=== PATIENT | female | born 1955 | race African-American/Black ===

== ENCOUNTER 2017-11-13 14:35 | Outpatient (RCR) | payer MEDICAID, SELFPAY ==
--- NOTE | 2017-11-13 15:59 | HP.PTEVAL_ITS ---
Patient's Visit Information NATALI KINSEY is a 62 year old F referred to Physical Therapy by DO MARTHA Sylvester with a diagnosis of LEFT KNEE OA,MENISCUS DEGENERATION. Date of Evaluation: 11/13/17 Physical Therapist: Gerhard Chaney PT, - Visit Plan Frequency: 2x /Week Duration: 4 Weeks Plan: Aquatic PT for ROM/strength left knee ,conditioning - Subjective Subjective: This 62 y/o female presents to physical therapy with left knee OA , menisus degenerative.Patient has had knee many years .Patient knee scope bilateral knee menisus right 2 years ago and left [address] catie mejia helped alot. Plan to do injections x3. Symptoms worse with squatting/ kneeling/stairs/lifting/night. Difficulty with extended walking/standing . Impairs ablity to perform ADL'S and housework tasks and qulity of life. C/O parathesia/feet . VOCATION: disablity. SOCAIL: SINGLE - Pain Left Knee Pain Intensity (Out of 10): 5 Pain Intensity Range: 10 - Objective POSTURE: mild knee valgus. GAIT: normal rian ,reciprocal pattern ,knees/hip flexed decrease stance left greater to right. PALPTION: medial/lateral joint line. EDEMA: absent. AROM: supine knee flexion R : 3-120 degrees,L: 3-130 degees. MMT: quads/hams 4-/5 ,hip flexion /abd 4-/5 anlke 4/5. FLEXABLITY: hams min loss. STAIRS: acsend/descend 12 steps one step at a time - Special Tests L Knee Ainsley - Meniscus: Positive L Knee Jose Maria - ACL: Negative L Knee Posterior Drawer - PCL: Negative L Knee Posterior Sag - PCL: Negative L Knee Valgus - MCL: Negative L Knee Varus - LCL: Negative L Knee Patellar Apprehension - PFS: Positive L Knee Patellar Grind - PFS: Negative - Goals Goal 1:: Patient to be Independant with Aquatic PT Goal Time Frame: 4-6 Weeks Goal 2:: Patient to decrease knee pain by 50% or greater to improve function with walking/standing. Goal Time Frame: 4-6 Weeks Goal 3:: Patient improve ROM knee symmtrical to right to improve function and stairs Goal Time Frame: 4-6 Weeks Goal 4:: Patient to increase strength of left knee 4/5 to improve gait Goal Time Frame: 4-6 Weeks Goal 5:: Patient be able to perform ADL'S and housework tasks with min limiations Goal Time Frame: 4-6 Weeks - Rehabilitation Potential Physical Therapy Diagnosis: This 62 y/o female presents to physical therapy with left knee pain with OA and degenerative menisus with decrease ROM,strength impairs function Rehabilitation Potential: Good - Anticipated Interventions Patient/Client Instruction: Educate patient on: Condition, Plan of Care For the Purpose of:: To decrease pain, To increase ROM, To improve muscle performance and motor function, To improve ability to perform ADL's, To increase tolerance to activity/condition/position, To improve ability of physical actions for home/community/work/leisure, To improve health of tissue, To decrease soft tissue restriction, To increase flexibility/ROM, To improve ability to perform tasks related to life management Therapeutic Exercise to Include: Strength training, Postural training, In an aquatic setting, Passive ROM, Active ROM Comment: quads/hams/hip For the Purpose of:: To decrease pain, To increase ROM, To improve muscle performance and motor function, To improve ability to perform ADL's, To increase tolerance to activity/condition/position, To improve ability of physical actions for home/community/work/leisure, To improve health of tissue, To decrease soft tissue restriction, To increase flexibility/ROM, To improve safety with gait, To improve ability to perform tasks related to life management Thank you for the opportunity to evaluate your patient. For Medicare and Medicare HMO plans, please review the plan of care and approve it. It will need to be FAXED BACK to us at [phone] for Medicare purposes. Please let me know if there are questions or concerns regarding this plan of care. Physician Signature: Date:
--- NOTE | 2017-12-15 10:47 | HP.PT.NRP ---
HP - Discharge Summary (1) - Patient Information NATALI KINSEY was seen in my office for initial evaluation on 11/13/17. The following Plan of Care was established for this patient: Initial Frequency: 2x /Week Initial Duration: 4 Weeks - Anticipated Interventions Patient/Client Instruction: Educate patient on: Condition, Plan of Care For the Purpose of:: To decrease pain, To increase ROM, To improve muscle performance and motor function, To improve ability to perform ADL's, To increase tolerance to activity/condition/position, To improve ability of physical actions for home/community/work/leisure, To improve health of tissue, To decrease soft tissue restriction, To increase flexibility/ROM, To improve ability to perform tasks related to life management Therapeutic Exercise to Include: Strength training, Postural training, In an aquatic setting, Passive ROM, Active ROM For the Purpose of:: To decrease pain, To increase ROM, To improve muscle performance and motor function, To improve ability to perform ADL's, To increase tolerance to activity/condition/position, To improve ability of physical actions for home/community/work/leisure, To improve health of tissue, To decrease soft tissue restriction, To increase flexibility/ROM, To improve safety with gait, To improve ability to perform tasks related to life management This patient was last seen in our office . Pertinent comments regarding their Physical therapy will appear below: Patient seen for PT for left KNEE OA but NS x3 for Aquatic PT . At this point I will be discontinuing this patient from physical therapy. I would be happy to see this patient again in the future if found appropriate by the physician. Thank you! Gerhard Chaney, PT,
== END 2017-11-13 19:00 | disposition home or self-care (01) ==
LOC: PT 14:35
PROVIDERS: Family Provider Family Medicine; PCP Family Medicine; Visit Provider Orthopaedic Surgery
DX: M23.307 Other meniscus derangements, unspecified meniscus, left knee (principal); M17.12 Unilateral primary osteoarthritis, left knee
CPT/HCPCS: 97162

== ENCOUNTER → 2017-12-30 10:58 | Outpatient (CLI) | payer MEDICAID, SELFPAY ==
[2017-12-30 11:58] LABS: BUP Internal Control LINE = VALID (VALID); Buprenorphine Drug Screen Negative (<10 ng/mL)
[2017-12-30 11:59] LABS: Erythrocyte Sedimentation Rate 60 mm/hr (0-30)
[2017-12-30 12:10] LABS: Hemoglobin A1c 11.6 % (4.2-6.3)
[2017-12-30 12:19] LABS: Rheumatoid Factor < 10.0 IU/mL (<15)
== END ==
PROVIDERS: Family Provider Family Medicine; PCP Family Medicine; Visit Provider Family Medicine
DX: F11.90 Opioid use, unspecified, uncomplicated (principal); E11.9 Type 2 diabetes mellitus without complications; M06.9 Rheumatoid arthritis, unspecified
CPT/HCPCS: 36415; 80307; 83036; 85652; 86431

== ENCOUNTER 2018-01-09 12:06 | Outpatient (RCR) | payer MEDICAID, SELFPAY | END 2018-01-12 23:59 | LOC: NS 12:06 | PROVIDERS: Family Provider Family Medicine; PCP Family Medicine; Visit Provider Orthopaedic Surgery | DX: Z68.41 Body mass index [BMI] 40.0-44.9, adult (principal); Z71.3 Dietary counseling and surveillance | CPT/HCPCS: 97802 ==

== ENCOUNTER 2018-01-30 15:44 | Outpatient (RCR) | payer MEDICAID, SELFPAY | END 2018-02-12 23:59 | LOC: NS 15:44 | PROVIDERS: Family Provider Family Medicine; PCP Family Medicine; Visit Provider Orthopaedic Surgery | DX: Z68.41 Body mass index [BMI] 40.0-44.9, adult (principal); Z71.3 Dietary counseling and surveillance | CPT/HCPCS: 97803 ==

== ENCOUNTER 2018-03-06 10:53 | Outpatient (RCR) | payer MEDICAID, SELFPAY | END 2018-03-14 23:59 | LOC: NS 10:53 | PROVIDERS: Family Provider Family Medicine; PCP Family Medicine; Visit Provider Orthopaedic Surgery | DX: Z68.41 Body mass index [BMI] 40.0-44.9, adult (principal); Z71.3 Dietary counseling and surveillance | CPT/HCPCS: 97803 ==

== ENCOUNTER → 2018-04-09 12:12 | Outpatient (CLI) | payer MEDICAID, SELFPAY ==
[2018-04-09 12:51] LABS: Hemoglobin A1c 8.4 % (4.2-6.3)
== END ==
PROVIDERS: Family Provider Family Medicine; PCP Family Medicine; Visit Provider Family Medicine
DX: E11.9 Type 2 diabetes mellitus without complications (principal)
CPT/HCPCS: 36415; 83036

== ENCOUNTER → 2018-06-25 12:30 | Outpatient (CLI) | payer MEDICAID, SELFPAY ==
[2018-06-25 13:01] LABS: Absolute Lymphocyte Count 2.27 X10^3/ul (0.83-4.51); Absolute Neutrophil Count 1.8 X10^3/uL (2.0-7.7); Basophil# 0.03 X10^3/uL; Basophil% 0.7 % (0-1); Eosinophil# 0.08 X10^3/uL; Eosinophils% 1.8 % (0-5); Hemoglobin 14.1 g/dl (12.0-15.0); Lymphocyte # 2.27 X10^3/ul (4.0); Lymphocyte % 51.1 % (19-41); Mean Corp Hgb Conc 32.8 g/gl (32-36); Mean Corpuscular Hgb 29.8 pg (27.0-32.0); Mean Corpuscular Volume 90.9 fL (81-99); Mean Platelet Vol. 9.9 fl (6.2-12.0); Monocyte# 0.29 X10^3/uL; Monocyte% 6.5 % (0-10); Neutrophil # 1.76 X10^3/uL (2.7-7.7); Neutrophil % 39.7 % (47-70); Platelet Count 140 K/mm3 (150-450); RBC Distribution Width CV 12.3 % (11.6-14.6); RBC Distribution Width SD 41.1 fl (35.1-43.9); Red Blood Count 4.73 M/mm3 (4.2-5.4); White Blood Count 4.4 K/mm3 (4.4-11.0)
[2018-06-25 13:02] LABS: POSITIVE COUNT NO; POSITIVE DIFFERENTIAL NO; POSITIVE MORPHOLOGY NO
[2018-06-25 13:19] LABS: Hemoglobin A1c 9.3 % (4.2-6.3)
[2018-06-25 13:37] LABS: ALB/GLOB Ratio 0.6 RATIO (0.9-2.4); AST(SGOT) 60 U/L (15-37); Alanine Aminotransfer ALT/SGPT 76 U/L (13-56); Albumin, Serum 2.8 g/dL (3.2-5.0); Alkaline Phosphatase 108 U/L (45-117); Anion Gap 8 (5-15); BUN 17 mg/dL (7-18); BUN/Creat Ratio 18.1 RATIO (10-20); Calcium,Total 9.1 mg/dL (8.5-10.1); Chloride 102 mmol/L (98-107); Creatinine, Serum 0.94 mg/dL (0.55-1.02); EST Glomerular Filtration Rate 64 mL/min (>60); Est Glom Filt Rate - Afr Amer 78 mL/min (>60); Globulin 4.9 g/dL (2.2-4.2); Glucose 404 mg/dL (74-106); Potassium 3.8 mmol/L (3.5-5.1); Protein, Total 7.7 g/dL (6.4-8.2); Rheumatoid Factor < 10.0 IU/mL (<15); Sodium Level 139 mmol/L (136-145); Thyroid Stim Hormone (TSH) 0.75 uIU/mL (0.358-3.74)
== END ==
PROVIDERS: Family Provider Family Medicine; PCP Family Medicine; Referring Provider Family Medicine; Visit Provider Family Medicine
DX: E11.9 Type 2 diabetes mellitus without complications (principal); M05.731 Rheumatoid arthritis with rheumatoid factor of right wrist without organ or systems involvement; R53.83 Other fatigue
CPT/HCPCS: 36415; 80053; 83036; 84443; 85025; 86431

== ENCOUNTER 2018-07-03 08:06 | Outpatient (RCR) | payer MEDICAID, SELFPAY | END 2018-07-15 23:59 | LOC: NS 08:06 | PROVIDERS: Family Provider Family Medicine; PCP Family Medicine; Visit Provider Orthopaedic Surgery | DX: E66.9 Obesity, unspecified (principal); Z68.41 Body mass index [BMI] 40.0-44.9, adult; Z71.3 Dietary counseling and surveillance ==

== ENCOUNTER → 2018-11-24 12:31 | Outpatient (CLI) | payer MEDICAID, SELFPAY ==
[2018-11-24 12:13] VITALS: BMI 34.7
--- NOTE | 2018-11-24 12:34 | RAD_ITS ---
STUDY: X-RAY CHEST REASON FOR EXAM: Female, 63 years old. Cough TECHNIQUE: PA and lateral views of the chest. COMPARISON: None. FINDINGS: The lungs are clear and expanded. There is no demonstrated pleural abnormality. Normal size heart. Normal mediastinum and gaye. Normal visualized pulmonary arteries. Normal visualized aortic arch and descending thoracic aorta. Normal visualized thoracic spine. Normal visualized ribs, clavicles, and shoulders. There is no demonstrated abnormality of the visualized soft tissue structures of the upper abdomen. RAD/Chest PA and Lateral IMPRESSION: Normal x-ray examination of the chest. Electronically Signed: Palmer Aceves DO at 13:12 EDT Tel , Service support ,
== END ==
PROVIDERS: Family Provider Family Medicine; PCP Family Medicine; Referring Provider Physician Assistant Surgical; Visit Provider Physician Assistant Surgical
DX: J20.9 Acute bronchitis, unspecified (principal)
CPT/HCPCS: 71046

== ENCOUNTER → 2019-02-02 10:28 | Outpatient (CLI) | payer MEDICAID, SELFPAY ==
[2019-02-02 10:07] VITALS: BMI 34.7
[2019-02-02 12:22] LABS: Absolute Lymphocyte Count 2.21 X10^3/ul (0.83-4.51); Absolute Neutrophil Count 2.7 X10^3/uL (2.0-7.7); Basophil# 0.03 X10^3/uL; Basophil% 0.5 % (0-1); Eosinophil# 0.15 X10^3/uL; Eosinophils% 2.7 % (0-5); Hematocrit 41.9 % (37-47); Lymphocyte # 2.21 X10^3/ul (4.0); Lymphocyte % 39.4 % (19-41); Mean Corp Hgb Conc 33.4 g/gl (32-36); Mean Corpuscular Hgb 29.8 pg (27.0-32.0); Mean Corpuscular Volume 89.1 fL (81-99); Mean Platelet Vol. 10.5 fl (6.2-12.0); Monocyte# 0.55 X10^3/uL; Monocyte% 9.8 % (0-10); Neutrophil # 2.66 X10^3/uL (2.7-7.7); Neutrophil % 47.4 % (47-70); Platelet Count 167 K/mm3 (150-450); RBC Distribution Width CV 12.3 % (11.6-14.6); RBC Distribution Width SD 39.6 fl (35.1-43.9); White Blood Count 5.6 K/mm3 (4.4-11.0)
[2019-02-02 12:23] LABS: POSITIVE COUNT NO; POSITIVE DIFFERENTIAL NO; POSITIVE MORPHOLOGY NO
[2019-02-02 13:26] LABS: ALB/GLOB Ratio 0.5 RATIO (0.9-2.4); AST(SGOT) 54 U/L (15-37); Alanine Aminotransfer ALT/SGPT 59 U/L (13-56); Albumin, Serum 2.3 g/dL (3.2-5.0); Alkaline Phosphatase 108 U/L (45-117); Anion Gap 7 (5-15); BUN 19 mg/dL (7-18); BUN/Creat Ratio 21.1 RATIO (10-20); Calcium,Total 8.7 mg/dL (8.5-10.1); Chloride 101 mmol/L (98-107); EST Glomerular Filtration Rate 68 mL/min (>60); Est Glom Filt Rate - Afr Amer 82 mL/min (>60); Glucose 318 mg/dL (74-106); Potassium 3.9 mmol/L (3.5-5.1); Protein, Total 7.3 g/dL (6.4-8.2); Sodium Level 132 mmol/L (136-145)
== END ==
PROVIDERS: PCP Family Medicine; Visit Provider Family Medicine
DX: E11.9 Type 2 diabetes mellitus without complications (principal); R53.83 Other fatigue
CPT/HCPCS: 36415; 80053; 85025

== ENCOUNTER → 2019-02-02 10:48 | Outpatient (CLI) | payer MEDICAID, SELFPAY ==
[2019-02-02 10:07] VITALS: BMI 34.7
--- NOTE | 2019-02-02 11:00 | RAD_ITS ---
STUDY: X-RAY CHEST REASON FOR EXAM: Female, 63 years old. Shortness of breath. TECHNIQUE: PA and lateral views of the chest. COMPARISON: November 24, 2018. FINDINGS: The lungs are clear and expanded. There is no demonstrated pleural abnormality. Normal size heart. Normal mediastinum and gaye. Normal visualized pulmonary arteries. There is atherosclerotic calcification of the aortic arch with tortuosity. There are diffuse degenerative changes of the visualized thoracic spine. There is degenerative osteoarthritis of the bilateral shoulders. There is no demonstrated abnormality of the visualized soft tissue structures of the upper abdomen. RAD/Chest PA and Lateral IMPRESSION: No acute cardiopulmonary disease or major interval change. Electronically Signed: Manohar Greene DO at 17:04 EDT Tel [phone], Service support ,
== END ==
PROVIDERS: Family Provider Family Medicine; PCP Family Medicine; Referring Provider Family Medicine; Visit Provider Family Medicine
DX: J20.9 Acute bronchitis, unspecified (principal); E11.9 Type 2 diabetes mellitus without complications; R53.83 Other fatigue
CPT/HCPCS: 36415; 71046; 80053; 85025

== ENCOUNTER → 2019-03-01 09:52 | Outpatient (CLI) | payer MEDICAID, SELFPAY ==
[2019-02-02 10:07] VITALS: BMI 34.7
[2019-02-23 13:14] VITALS: BMI 36.3
--- NOTE | 2019-03-01 09:52 | US_ITS ---
STUDY: ABDOMINAL ULTRASOUND - RIGHT UPPER QUADRANT REASON FOR VISIT: Female, 63 years old. Abnormal labs elevated LFT TECHNIQUE: Ultrasound evaluation of the right upper quadrant was performed with real-time and static hager-scale imaging. TECHNICAL QUALITY: Adequate. COMPARISON: None. FINDINGS: Liver: The liver measures 16.9 cm. There is normal echogenicity of the liver. The bile ducts are within normal limits. There is hepatic color flow. The direction of portal flow is hepatopetal. There is no demonstrated mass lesion. Gallbladder: Normal distended gallbladder. The gallbladder wall measures 2 mm. There is a negative sonographic Martinez's sign. There is no pericholecystic fluid. In the fundus of the gallbladder there is a small focus nonshadowing nonmobile of avascular sludge or polyp within the lumen. Common Bile Duct (C.B.D.): The common bile duct measures mm. Pancreas: Normal size of the head, body and tail of the pancreas. There is normal echogenicity of the pancreas. There is no demonstrated pancreatic mass or cyst. Right Kidney: Normal size of the right kidney. The right kidney measures 12.3 x 6.0 x 3.8 cm. Normal renal cortex. The right cortex measures 1.4 cm. There is no demonstrated renal mass or cyst. There is no right hydronephrosis. US/Liver IMPRESSION: Possible sludge or polyp within the fundus recommend short-term interval follow-up study in 6 months to ensure stability or as clinically appropriate. Homogeneous liver without evidence of intra or extrahepatic dilatation of visualized mass. Electronically Signed: Niki Aguilar MD at 2:36 EDT Tel , Service support ,
== END ==
PROVIDERS: Family Provider Family Medicine; PCP Family Medicine; Referring Provider Family Medicine; Visit Provider Family Medicine
DX: R74.8 Abnormal levels of other serum enzymes (principal)
CPT/HCPCS: 76705

== ENCOUNTER → 2019-03-05 09:40 | Outpatient (CLI) | payer MEDICAID, SELFPAY ==
[2019-02-23 13:14] VITALS: BMI 36.3
[2019-03-06 05:06] LABS: HEPATITIS B SURFACE AG Negative (Negative); Hepatitis A AB, Total Positive (Negative); Hepatitis A IgM Antibody Negative (Negative); Hepatitis B Core AB IgM Negative (Negative); Hepatitis B Core Ab Total Negative (Negative); Hepatitis C Ab >11.0 s/co ratio (0.0-0.9)
[2019-03-08 11:48] LABS: Hep B Surface Antibodies Non Reactive (.)
== END ==
PROVIDERS: Family Provider Family Medicine; PCP Family Medicine; Referring Provider Family Medicine; Visit Provider Family Medicine
DX: R74.8 Abnormal levels of other serum enzymes (principal)
CPT/HCPCS: 36415; 86704; 86705; 86706; 86708; 86709; 86803; 87340

== ENCOUNTER → 2019-03-23 12:56 | Outpatient (CLI) | payer MEDICAID, SELFPAY ==
[2019-02-23 13:14] VITALS: BMI 36.3
[2019-03-25 08:02] LABS: HCV log 10 5.972 (.)
== END ==
PROVIDERS: Family Provider Family Medicine; PCP Family Medicine; Referring Provider Family Medicine; Visit Provider Family Medicine
DX: R76.8 Other specified abnormal immunological findings in serum (principal)
CPT/HCPCS: 36415; 87522

== ENCOUNTER → 2019-04-01 08:38 | Outpatient (CLI) | payer MEDICAID, SELFPAY ==
[2019-02-23 13:14] VITALS: BMI 36.3
[2019-04-01 09:58] LABS: Absolute Lymphocyte Count 2.46 X10^3/uL (0.83-4.51); Absolute Neutrophil Count 1.6 X10^3/uL (2.0-7.7); Basophil# 0.03 X10^3/uL; Basophil% 0.6 % (0-1); Eosinophil# 0.17 X10^3/uL; Eosinophils% 3.6 % (0-5); Hematocrit 43.7 % (37-47); Hemoglobin 14.2 g/dL (12.0-15.0); Lymphocyte # 2.46 X10^3/ul (4.0); Lymphocyte % 52.8 % (19-41); Mean Corp Hgb Conc 32.5 g/dL (32-36); Mean Corpuscular Hgb 29.5 pg (27.0-32.0); Mean Corpuscular Volume 90.7 fL (81-99); Mean Platelet Vol. 10.4 fl (6.2-12.0); Monocyte# 0.38 X10^3/uL; Monocyte% 8.2 % (0-10); NRBC Flagged by Analyzer 0 % (0-5); Neutrophil % 34.4 % (47-70); Platelet Count 160 K/mm3 (150-450); RBC Distribution Width CV 12.6 % (11.6-14.6); RBC Distribution Width SD 41.5 fl (35.1-43.9); Red Blood Count 4.82 M/mm3 (4.2-5.4); White Blood Count 4.7 K/mm3 (4.4-11.0)
[2019-04-01 10:22] LABS: AST(SGOT) 69 U/L (15-37); Alanine Aminotransfer ALT/SGPT 80 U/L (13-56); Albumin, Serum 2.8 g/dL (3.2-5.0); Alkaline Phosphatase 110 U/L (45-117); Anion Gap 9 (5-15); BUN 19 mg/dL (7-18); BUN/Creat Ratio 18.8 RATIO (10-20); Bilirubin, Direct 0.21 mg/dL (0.00-0.30); Chloride 107 mmol/L (98-107); Creatinine, Serum 1.01 mg/dL (0.55-1.02); EST Glomerular Filtration Rate 59 mL/min (>60); Est Glom Filt Rate - Afr Amer 72 mL/min (>60); Globulin 4.8 g/dL (2.2-4.2); Glucose 201 mg/dL (74-106); Potassium 3.6 mmol/L (3.5-5.1); Protein, Total 7.6 g/dL (6.4-8.2); Sodium Level 141 mmol/L (136-145)
[2019-04-01 11:08] LABS: HIV - WCH Non-Reactive (Nonreactive); Hepatitis B Surface Antibody Non-Reactive; Hepatitis B Surface Antigen Non-Reactive (Nonreactive)
[2019-04-03 12:07] LABS: Hepatitis B Core Ab Total Negative (Negative)
[2019-04-03 13:33] LABS: HCV log 10 5.941 (.); Hepatitis A AB, Total Positive (Negative)
[2019-04-05 12:07] LABS: Comment 1a (.)
[2019-04-16 17:49] LABS: Hepatitis C Genotype 1a
== END ==
PROVIDERS: Family Provider Family Medicine; PCP Family Medicine; Referring Provider Internal Medicine Infectious Disease; Visit Provider Internal Medicine Infectious Disease
DX: B17.10 Acute hepatitis C without hepatic coma (principal)
CPT/HCPCS: 36415; 80048; 80076; 85025; 86703; 86704; 86706; 86708; 87340; 87522; 87902

== ENCOUNTER → 2019-04-21 | Outpatient (CLI) | payer MEDICAID, SELFPAY ==
[2019-04-21 15:18] VITALS: BMI 36.3
--- NOTE | 2019-04-21 15:43 | RAD_ITS ---
STUDY: X-RAY CHEST REASON FOR EXAM: Female, 63 years old. Cough TECHNIQUE: Frontal and lateral views of the chest COMPARISON: 02/02/2019 FINDINGS: The lungs are clear. There are no pleural effusions. There is no pneumothorax. The heart is normal in size. The visualized osseous structures are within normal limits. RAD/Chest PA and Lateral IMPRESSION: No acute thoracic pathology. Electronically Signed: Grant Jacques, at 16:52 EDT Tel , Service support ,
== END | disposition home or self-care (01) ==
LOC: HPRAD 15:42
PROVIDERS: Family Provider Family Medicine; PCP Family Medicine; Visit Provider Physician Assistant
DX: R05 Cough (principal)
CPT/HCPCS: 71046

== ENCOUNTER 2019-04-25 23:08 | Observation (INO) | payer MEDICAID, SELFPAY ==
[2019-04-21 15:18] VITALS: BMI 36.3
[2019-04-25 23:11] VITALS: BP 179/80; PULSE 99; RESP 17; TEMP 36.1; O2SAT 97; BMI 36.8
[2019-04-25 23:15] VITALS: BP 181/90; PULSE 96; RESP 16; O2SAT 97
--- NOTE | 2019-04-25 23:27 | EKG12_ITS ---
Test Reason : NUMBNESS/TINGLING Blood Pressure : / mmHG Vent. Rate : 099 BPM Atrial Rate : 099 BPM P-R Int : 156 ms QRS Dur : 080 ms QT Int : 386 ms P-R-T Axes : 055 074 052 degrees QTc Int : 495 ms Normal sinus rhythm Septal infarct (cited on or before 24-JAN-2010) Abnormal ECG Confirmed by SRIKANTH PIZARRO, RENE ([id number]), restaurant expeditor DERICK ARNOLD ([id number]) on 05/03/2019 1:28:41 PM Referred By: MELLY Confirmed By:JHONY DUKE MD
--- NOTE | 2019-04-25 23:27 | RAD_ITS ---
STUDY: X-RAY CHEST REASON FOR EXAM: Female, 63 years old. cough TECHNIQUE: AP portable COMPARISON: 04/21/2019 FINDINGS: The lungs are clear and expanded. There is no demonstrated pleural abnormality. Normal size heart. Normal mediastinum and gaye. Normal visualized pulmonary arteries. Normal visualized aortic arch and descending thoracic aorta. Normal visualized thoracic spine. Normal visualized ribs, clavicles, and shoulders. There is no demonstrated abnormality of the visualized soft tissue structures of the upper abdomen. RAD/Chest 1 View IMPRESSION: Negative x-ray examination of the chest. No interval change. Electronically Signed: Clarence German, at 0:30 EDT Tel , Service support ,
--- NOTE | 2019-04-25 23:27 | CT_ITS ---
STUDY: CT BRAIN WITHOUT CONTRAST REASON FOR EXAM: Female, 63 years old. Left hand numbness RADIATION DOSAGE (If Supplied By Facility): CTDIvol = ( 44.99 ) mGy, DLP = ( 745.49 ) mGycm TECHNIQUE: Transaxial CT imaging of the brain was performed without administration of intravenous contrast material. Individualized dose optimization techniques were used for this CT. COMPARISON: CT head from 08/09/2016 FINDINGS: Normal soft tissue structures. Normal calvarium. There is mild cerebral atrophy with widening of the extra-axial spaces and ventricular dilatation. There are areas of decreased attenuation within the white matter tracts of the supratentorial brain, consistent with microvascular disease changes. Normal basal ganglia and thalami. Normal brainstem. Normal cerebellum. There is no intracranial hemorrhage. There are no findings of an acute ischemic infarction. Normal visualized paranasal sinuses. CT/Brain/Head without Contrast IMPRESSION: Negative unenhanced CT scan of the brain for acute abnormality or interval change. Electronically Signed: Clarence German, at 0:16 EDT Tel , Service support ,
--- NOTE | 2019-04-25 23:30 | ED.RN ---
PER DANIELA JORDAN WHO TOOK REPORT FROM [facility], PT ALMITA IS NEGATIVE AND DR. ORDAZ SAID NOT TO CALL A STROKE TEAM. DR. ORDAZ INFORMED OF PT SX AGAIN ON ARRIVAL TO ED. WILL CONTINUE TO MONITOR.
[2019-04-25 23:45] VITALS: BP 140/129; PULSE 98; RESP 22; O2SAT 100
[2019-04-25 23:46] LABS: Bedside Glucose 159 mg/dL (70-110)
[2019-04-26] VITALS (25 sets, daily range): BP systolic 127–173; BP diastolic 60–91; PULSE 80–107; RESP 15–24; TEMP 36.4–37.2; O2SAT 92–99; BMI 35.2
--- NOTE | 2019-04-26 00:18 | ED.RN ---
PER DR ORDAZ RN TO STOP Q30MIN NIH SCORES. LSAT 3 NIH SCORES HAVE BEEN 0. RN WILL CONTINUE TO MONITOR.
[2019-04-26 00:19] LABS: Absolute Lymphocyte Count 3.68 X10^3/uL (0.83-4.51); Absolute Neutrophil Count 3.5 X10^3/uL (2.0-7.7); Basophil# 0.05 X10^3/uL; Basophil% 0.6 % (0-1); Eosinophil# 0.14 X10^3/uL; Eosinophils% 1.7 % (0-5); Hematocrit 40.2 % (37-47); Hemoglobin 13.3 g/dL (12.0-15.0); Lymphocyte # 3.68 X10^3/ul (4.0); Lymphocyte % 45.5 % (19-41); Mean Corp Hgb Conc 33.1 g/dL (32-36); Mean Corpuscular Volume 90.7 fL (81-99); Mean Platelet Vol. 9.4 fl (6.2-12.0); Monocyte# 0.64 X10^3/uL; Monocyte% 7.9 % (0-10); NRBC Flagged by Analyzer 0 % (0-5); Neutrophil # 3.52 X10^3/uL (2.7-7.7); Neutrophil % 43.7 % (47-70); Platelet Count 187 K/mm3 (150-450); RBC Distribution Width CV 12.7 % (11.6-14.6); Red Blood Count 4.43 M/mm3 (4.2-5.4); White Blood Count 8.1 K/mm3 (4.4-11.0)
[2019-04-26 00:27] LABS: International Normalized Ratio 0.9; Prothrombin Time (Protime)PT. 12.1 SECONDS (11.7-14.9)
[2019-04-26 00:28] LABS: Partial Thromboplast Time 24.7 Seconds (24.1-36.2)
[2019-04-26 00:36] LABS: Anion Gap 5 (5-15); BUN 11 mg/dL (7-18); BUN/Creat Ratio 11.2 RATIO (10-20); Calcium,Total 8.9 mg/dL (8.5-10.1); Chloride 102 mmol/L (98-107); Creatinine, Serum 0.99 mg/dL (0.55-1.02); EST Glomerular Filtration Rate 61 mL/min (>60); Est Glom Filt Rate - Afr Amer 74 mL/min (>60); Estimated Creatinine Clearance 51.53 ml/min; Glucose 151 mg/dL (74-106); Potassium 3.4 mmol/L (3.5-5.1); Sodium Level 136 mmol/L (136-145)
--- NOTE | 2019-04-26 00:46 | ED.DCSUM_ITS ---
- ER Visit Summary Date of Service: 04/26/19 Chief Complaint: Left hand numbness and weakness History of Present Illness: The patient is a 63 F who presents with left hand numbness and tingling. This began about an hour ago. She had numbness and tingling in her hand and onto her forearm. She felt like her hand was weak. Currently her symptoms have resolved. They lasted about 45 minutes. No other extremities were affected. She denies any slurred speech or speech difficulty. She reports history of prior stroke greater than 10 years ago. She is also treated for diabetes and hypertension and is a smoker. She denies any chest pain fevers. She is currently on antibiotics for bronchitis. Physical Examination: Afebrile blood pressure 179/80 vitals otherwise unremarkable No distress NIH stroke scale is 0 clear speech normal strength normal sensation no focal or lateralizing neurological deficits Heart regular rate and rhythm Lungs are clear Abdomen soft Extremities nontender Test Results: EKG shows sinus rhythm at a rate of 99. CBC BMP coagulation studies unremarkable and troponin is negative. Chest x-ray is negative. CT of the head is negative. Emergency Department Course and Treatment: Patient was asymptomatic at the time of my evaluation has had no recurrence of symptoms. However given her prior reported history of stroke and multiple risk factors I do feel she will need hospitalization for further work-up including MRI. Patient will be discussed with the hospitalist and admitted. Treatment Plan: [] Disposition: Admit Impression: Transient neurological deficit This note was generated with [employer] dictation software. It may contain incorrect words, spelling, and punctuation that were not noted in review of the chart prior to signing ED Disposition - Plan for ED Patient: Referrals: Prince Cummins DO [Primary Care Provider] -
--- NOTE | 2019-04-26 00:52 | HP.PCM_ITS ---
Problem List (1) Acute bronchitis Status: Acute Qualifiers: Bronchitis organism: unspecified organism Qualified Code(s): J20.9 - Acute bronchitis, unspecified (2) Diabetes Status: Chronic Qualifiers: Diabetes mellitus type: type 2 (3) Type II diabetes mellitus Status: Chronic Qualifiers: Diabetes mellitus long term care pharmacist insulin use: without long term care pharmacist use Diabetes mellitus complication status: without complication Qualified Code(s): E11.9 - Type 2 diabetes mellitus without complications (4) Hypertension Status: Chronic Qualifiers: Hypertension type: essential hypertension Qualified Code(s): I10 - Essential (primary) hypertension (5) Hypertensive emergency Status: Inactive History of Present Illness Date of Admission: 04/26/19 Chief Complaint: left arm numbness and tingling The patient is a 63 year old F with a significant history of hypertension; asthma; diabetes mellitus; tobacco abuse; and previous CVA who presented to the emergency department with numbness and tingling of the left arm that lasted lasted about 45 minutes. Her symptoms started few hours before presentation but had resolve at the time of arrival to the emergency department. Associated with her symptoms is a weakness of her left arm which has also resolved. At the emergency department NIH was 0. CT of the brain was unremarkable. Past Medical History Past Medical History (Chronic Problems): Chronic Problems (Last Reviewed 04/26/19 @ 02:48 by Jacob Landeros MD) Elevated liver enzymes (Chronic) Diabetes (Chronic) Rheumatoid arthritis (Chronic) Type II diabetes mellitus (Chronic) Hypertension (Chronic) Medical History: Medical History (Last Reviewed 04/26/19 @ 02:48 by Jacob Landeros MD) Diabetes (Chronic) E11.9 Rheumatoid arthritis (Chronic) M06.9 Asthma J45.909 Chest pain R07.9 H/O: hysterectomy Z98.890, Z90.710 SOB (shortness of breath) R06.02 Stroke I63.9 Hypertension I10 Allergies Penicillins Allergy (Verified 04/21/19 15:17) Swelling oxycodone HCl [From Percocet] Adverse Reaction (Verified 04/21/19 15:17) Itching Home Medications: Ambulatory Orders Medication Instructions Recorded albuterol sulfate HFA 90 2 puff INHALATION Q6H #8.5 g 02/02/19 mcg/actuation aerosol inhaler amlodipine 5 mg tablet 5 mg PO DAILY 02/02/19 glipizide 5 mg tablet 5 mg PO DAILY #90 tab 02/12/19 benzonatate 100 mg capsule 100 mg PO TID PRN #30 cap 02/23/19 ertugliflozin 15 mg tablet 15 mg PO QAM #30 tab 02/23/19 albuterol sulfate HFA 90 2 puff INHALATION Q6H #8.5 g 04/21/19 mcg/actuation aerosol inhaler levofloxacin 500 mg tablet 500 mg PO DAILY #10 tab 04/21/19 Surgical History: Surgical History (Last Reviewed 04/26/19 @ 02:48 by Jacob Landeros MD) History of eye surgery Z98.890 knee scope Bilateral Surgical History: - Psychiatric History: 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 Denies: Head Aches Cardiovascular: Denies: Chest Pain, Palpitations Respiratory: Reports: Cough, Shortness of Breath, Sputum production Gastrointestinal: Denies: Abdominal Pain, Nausea, Vomiting Genitourinary: Denies: Dysuria Musculoskeletal: Denies: Joint Pain, Joint Tenderness Skin: Denies: Rash, Wounds Neurological: Reports: Numbness, Tingling. Denies: Focal weakness Psychiatric: Denies: Anxiety, Depression, Homicidal Ideations, Suicidal Ideations Hematologic/ Lymphatic: Denies: Easy Bruising, Easy Bleeding VTE Information - Inpt Only VTE Present on Admission: No VTE Mechan Device Prophylaxis: None VTE Pharm Prophylaxis ordered?: Yes - Physical Exam General: Alert, Oriented x3, Cooperative HEENT: Atraumatic, PERRLA, EOMI, Normocephalic Neck: Supple, No JVD, Negative Carotid Bruits Lungs: Rhonchi, Wheezes Cardiovascular: Regular rate, No murmurs Abdomen: Bowel Sounds Present, Soft, Non Tender Extremities: No edema, Capillary Refill Less than 3 Seconds Skin: No rashes, No breakdown Musculoskeletal: No Tenderness to Palpation of Joints or Extremities Neurological: Cranial nerves II-XII grossly intact, Deep Tendon Reflexes 2+/4 and Symmetrical, Neuro grossly intact, Motor Exam 5/5 strength throughout, Muscle tone normal, Sensory exam intact to light touch and pain, - - No dysmetria. Psych/Mental Status: Normal Affect, Appropriate Vital Signs Temp Pulse Resp BP Pulse Ox 97 F L 102 H 20 H 168/88 H 97 04/25/19 23:11 04/26/19 00:49 04/26/19 00:49 04/26/19 00:49 04/26/19 00:49 Oxygen Delivery Method Room Air Weight: 97.4 kg Body Mass Index (BMI) 36.8 Finger Stick Blood Glucose 159 Laboratory Tests Past 24 Hrs 04/26/19 04/26/19 04/26/19 00:11 00:11 00:11 WBC 8.1 RBC 4.43 Hgb 13.3 Hct 40.2 MCV 90.7 MCH 30.0 MCHC 33.1 RDW Std Deviation 42.0 RDW Coeff of Dottie 12.7 Plt Count 187 MPV 9.4 Immature Gran % (Auto) 0.600 Neut % (Auto) 43.7 L Lymph % (Auto) 45.5 H [place] % (Auto) 7.9 Eos % (Auto) 1.7 Baso % (Auto) 0.6 Absolute Neuts (auto) 3.5 Absolute Lymphs (auto) 3.68 Nucleated RBC % 0 PT 12.1 INR 0.9 APTT 24.7 Sodium 136 Potassium 3.4 L Chloride 102 Carbon Dioxide 29.0 Anion Gap 5 BUN 11 Creatinine 0.99 Estim Creat Clear Calc 51.53 Est GFR (MDRD) Af Amer 74 Est GFR (MDRD) Non-Af 61 BUN/Creatinine Ratio 11.2 Glucose 151 H Calcium 8.9 Troponin I < 0.015 POC Glucose 04/25/19 23:39 POC Glucose 159 H Assessment/Plan All Active Problems (Last Reviewed 04/26/19 @ 02:48 by Jacob Landeros MD) Asthma exacerbation (Acute) Acute bronchitis (Acute) The patient is a 63 year old F with a significant history of hypertension; asthma; diabetes mellitus; tobacco abuse; and previous CVA who presented to the emergency department with transient numbness and tingling of the left arm and left arm weakness consistent with probable TIA. Probable TIA NINDS NIH Scale was 0 CT of the head was unremarkable -Check Hba1c, Lipid level Physical therapy and occupational therapy and speech therapy to work with patient. N.p.o. until bedside swallow eval. Daily aspirin. High intensity statin: Patient has multiple risk factors including diabetes and is unclear why she is not on statin. She denies statin allergy. She thinks that she may have been on statin previously. Will order high intensity statin. Permissive hypertension. Control blood pressure with labetalol for systolic blood pressure of more than 220 or diastolic blood pressure of more than 120. -Permissive HTN for 24 hrs, long term care pharmacist goal BP < 120/80 mmHg and goal Hba1c < 7%. Reportedly her symptoms started around 10 PM of 04/25/2019. MRI/MRAM of head; brain; and neck. Echocardiogram ordered. Hypokalemia Mild. On presentation potassium was 3.4. Likely due to albuterol use. Potassium Supplementation x1 ordered Trend. Acute bronchitis/asthma exacerbation She reports productive cough with green sputum and also nasal congestion with greenish secretions Reportedly she has been on Levaquin for 7 days. Levaquin was prescribed outpatient for 10 days. We will continue Levaquin as patient has rhonchi and wheezes. Tessalon Perles as needed continued DuoNeb ordered. Was taken albuterol inhalation at home. Nasal congestion Flonase ordered Tobacco abuse Counseled Nicotine patch ordered Diabetes mellitus On presentation her blood glucose was within goal Glipizide continued Ertugliflozin held QA [facility] with correction scale insulin ordered. Hypertension On Presentation her blood pressure was not within goal. Home amlodipine held because of permissive hypertension. Blood pressure treatment per TIA/stroke protocol as above. DVT prophylaxis Subcutaneous Lovenox. Code Visit OBSV E&M: [id number] Initial observation care L3
--- NOTE | 2019-04-26 01:45 | ECHOD_ITS ---
Reason For Study: TIA/CVA Procedure This was a 2D Doppler, Color Flow transthoracic echocardiogram. The study was technically difficult. Exam performed portable in patient room. Left Ventricle Normal LV size. Moderate concentric left ventricular hypertrophy. Left ventricular systolic function is normal. The estimated ejection fraction is 70 %. Diastolic function is indeterminate. No regional wall motion abnormalities noted. Right Ventricle Normal RV size. Normal systolic function. Atria Normal left atrium. Normal right atrium. No doppler evidence for ASD. Bubble contrast study negative for right to left interatrial shunt. Mitral Valve There is no mitral annular calcification. Normal mitral valve. Trivial mitral valve insufficiency. Tricuspid Valve Normal tricuspid valve. Trivial tricuspid valve insufficiency. Unable to estimate RV systolic pressure/pulmonary artery pressure due to technically difficult study. Aortic Valve Trisinus/trileaflet aortic valve. Mild focal aortic valve calcification. Pulmonic Valve The pulmonic valve is not well visualized. Great Vessels Normal sized aortic root. Pericardium/Pleural No pericardial effusion. Medication Performed a rapid injection of agitated mix of 9 cc saline and 1cc air to assess for atrial septal defect. MMode/2D Measurements & Calculations LVIDd: 3.8 cm IVSd: 1.5 cm Ao root diam: 2.5 cm LVIDs: 2.3 cm LVPWd: 1.3 cm RVDd: 3.5 cm FS: 39.2 % LAV(MOD-bp): 45.8 ml LVAd ap4: 22.7 cm2 SV(MOD-sp4): 33.2 ml LAV(MOD-bp) Indexed: 23.2 ml/m2 EDV(MOD-sp4): 56.5 ml LAV(MOD-sp2): 48.7 ml EDV(sp4-el): 55.1 ml LAV(MOD-sp4): 42.8 ml LVAs ap4: 11.8 cm2 ESV(MOD-sp4): 23.3 ml ESV(sp4-el): 19.1 ml EF(MOD-sp4): 58.7 % EF(sp4-el): 65.3 % SV(sp4-el): 36.0 ml LA A4 area: 16.4 cm2 LA dimension(2D): 2.4 cm RA A4 area: 13.9 cm2 Doppler Measurements & Calculations MV E max migel: 69.8 cm/sec Lat Peak E' Migel: 8.8 cm/sec Med Peak E' Migel: 5.3 cm/sec MV A max migel: 80.3 cm/sec E/E' lat: 7.9 E/E' med: 13.2 MV E/A: 0.87 Ao V2 max: 150.2 cm/sec LV V1 max: 123.5 cm/sec PA V2 max: 93.2 cm/sec Ao max P.0 mmHg LV V1 max P.1 mmHg Ao V2 mean: 101.8 cm/sec Ao mean P.5 mmHg Ao V2 VTI: 30.4 cm Interpretation Summary The study was technically difficult. Left ventricular systolic function is normal. The estimated ejection fraction is 70 %. Moderate concentric left ventricular hypertrophy. Trivial mitral valve insufficiency. Trivial tricuspid valve insufficiency. Mild focal aortic valve calcification. Unable to estimate RV systolic pressure/pulmonary artery pressure due to technically difficult study. Diastolic function is indeterminate. Ordering Physician: Jacob Landeros Referring Physician: Prince Cummins Performed By: Jenna Luis RDCS, RVT
--- NOTE | 2019-04-26 01:45 | MRI_ITS ---
We are attempting to reach an attending provider to discuss findings. An addendum with communication details will be sent when the communication is complete. STUDY: MRI BRAIN WITHOUT CONTRAST REASON FOR EXAM: Female, 63 years old. Left arm numbness and tingling TECHNIQUE: Standardized multiplanar fat and water weighted pulse sequences were obtained. COMPARISON: None. FINDINGS: Normal size of the ventricles and extra-axial spaces for the patient's age. There are a few small periventricular white matter lesions one of which in the right frontal parietal region demonstrates restricted diffusion consistent with acute ischemic changes Normal bilateral basal ganglia. Normal thalami. There is no extra-axial fluid accumulation. Normal flow voids within the major intracranial circulation suggesting patency by spin echo criteria. Normal sella turcica, pituitary gland, infundibular stalk, optic chiasm and hypothalamus. Normal tectal plate and pineal gland. Normal midbrain, chapin and medulla. Normal cerebellum. Normal basal cisterns. Normal bilateral temporal bones. Normal bilateral internal auditory canals. Fluid signal noted within the mastoids consistent with inflammatory changes Postsurgical changes of the orbits.. Mild mucosal thickening within the maxillary ethmoid and sphenoid sinuses. Normal calvarium and skull base. Normal visualized soft tissue structures. Normal visualized upper cervical spine. MRI/Brain without Contrast IMPRESSION: Minor periventricular white matter ischemic changes. Small focal deep white matter infarct in the right frontal parietal region. Electronically Signed: Jefferson Warner MD at 16:01 EDT , Service support ,
[2019-04-26] MEDS: Ipratropium/Albuterol Sulfate 3 ML AMPUL.NEB INHALATION ×3 (06:34→19:03)
[2019-04-26 06:35] LABS: Anion Gap 7 (5-15); BUN 10 mg/dL (7-18); BUN/Creat Ratio 12.2 RATIO (10-20); Calcium,Total 8.5 mg/dL (8.5-10.1); Chloride 106 mmol/L (98-107); Cholesterol 120 mg/dL (200); Creatinine, Serum 0.82 mg/dL (0.55-1.02); EST Glomerular Filtration Rate 75 mL/min (>60); Est Glom Filt Rate - Afr Amer 91 mL/min (>60); Estimated Creatinine Clearance 62.21 ml/min; Glucose 143 mg/dL (74-106); High Density Lipoprotein 52 mg/dL; Potassium 3.9 mmol/L (3.5-5.1); Sodium Level 141 mmol/L (136-145); Triglycerides 132 mg/dL; Very Low Density Lipoprotein 26 mg/dL (5-40)
[2019-04-26 06:46] LABS: Bedside Glucose 140 mg/dL (70-110)
[2019-04-26 07:55] LABS: Hemoglobin A1c 8.8 % (4.2-6.3)
[2019-04-26 08:00] LABS: Bedside Glucose 149 mg/dL (70-110)
[2019-04-26] MEDS: Aspirin 81 MG TAB.CHEW PO (08:40)
[2019-04-26] MEDS: Fluticasone 0.05% 1 SPRAY NASAL.SRY NASAL (08:40)
[2019-04-26] MEDS: glipiZIDE 5 MG Tablet PO (08:40)
[2019-04-26] MEDS: levoFLOXacin 500 MG Tablet PO (08:41)
[2019-04-26] MEDS: Enoxaparin 40 MG/0.4 ML Syringe SC (08:41)
--- NOTE | 2019-04-26 10:46 | CT_ITS ---
STUDY: CTA HEAD AND NECK WITH CONTRAST REASON FOR EXAM: Female, 63 years old. TIA. RADIATION DOSAGE (If Supplied By Facility): CTDIvol = ( 27.40 ) mGy, DLP = ( 1525.52 ) mGycm TECHNIQUE: CT angiography was performed with a multi-detector CT scanner. Data acquisition was obtained from the skull base through the vertex following intravenous administration of 100 IV Isovue 370. MIP images were reconstructed from the axial data set. Post-processing of the angiographic images was performed, with multiplanar reformation and 3D reconstruction. Individualized dose optimization techniques were used for this CT. COMPARISON: No relevant priors. FINDINGS: Normal bilateral petrous carotid arteries. There is calcified plaque formation of the right cavernous carotid artery, without a cross-sectional luminal stenosis. There is calcified plaque formation of the left cavernous carotid artery, without a cross-sectional luminal stenosis. Normal right A1 segments of the anterior cerebral artery. Normal left A1 segments of the anterior cerebral artery. Normal intact anterior communicating artery (ACOM). Normal bilateral A2 segments of the anterior cerebral arteries. There is irregularity of the right M1 and M2 branches with minimal luminal narrowing, suggesting atherosclerotic plaque formation, without an occlusion. Normal left M1 and M2 segments of the middle cerebral arteries, with a normal M1 bifurcation. Normal right posterior communicating artery (PCOM). There is a persistent origin of the left posterior cerebral artery with absence of the posterior communicating artery (PCOM). Normal bilateral vertebral arteries. Normal basilar artery with a normal basilar bifurcation. The visualized bilateral superior cerebellar (SCA) arteries are normal. Normal bilateral P1, P2 and visualized P3 segments of the posterior cerebral arteries. There is no demonstrated aneurysm of the [place] of [place]. There is no demonstrated abnormality of the visualized brain. AORTIC ARCH: There is atherosclerotic calcific plaque formation of the aortic arch and great vessels arising from the aortic arch, without a hemodynamically significant stenosis. Atherosclerotic calcification of the origin of the brachiocephalic artery, left common carotid artery and left subclavian artery.. RIGHT CAROTID ARTERIES: Normal right common carotid artery (CCA). Normal right common carotid bulb. There is severe atherosclerotic plaque formation of the origin of the right internal carotid artery with a near complete occlusion. Normal visualized cervical portion of the right internal carotid artery. Normal origin of the right external carotid artery (ECA). LEFT CAROTID ARTERIES: Normal left common carotid artery (CCA). Normal left common carotid bulb. There is moderate atherosclerotic plaque formation of the origin of the left internal carotid artery with an estimated stenosis of 50-69% stenosis. Normal visualized cervical portion of the left internal carotid artery. There is extensive atherosclerotic plaque formation of the origin of the left external carotid artery with an estimated stenosis of greater than 70%. VERTEBRAL ARTERIES: Normal bilateral vertebral arteries. CT/CTA Head AND Neck W/ Contrast IMPRESSION: High-grade stenosis at the origin of the right internal carotid artery. 50-60% narrowing of the proximal portion of the left internal carotid artery. Electronically Signed: Tacho Russell, at 15:40 EDT , Service support ,
--- NOTE | 2019-04-26 10:54 | MRI_ITS ---
STUDY: MRI CERVICAL SPINE WITHOUT CONTRAST REASON FOR EXAM: Female, 63 years old. Left hand numbness TECHNIQUE: Standardized fat and water weighted pulse sequences were obtained in the sagittal and axial planes. COMPARISON: None FINDINGS: Normal foramen magnum and brainstem-cervical cord junction. Normal craniovertebral junction. Normal anterior atlantoaxial articulation. Normal odontoid process. Normal cervical lordosis. C2-3: Normal endplates. Normal disc height, signal and morphology. Normal central canal and intervertebral neural foramina. C3-4: Normal endplates. Normal disc height signal and tiny left paracentral disc protrusion. Normal central canal. Minor left neural foraminal encroachment secondary to bony hypertrophy C4-5. Endplate spurring . Grade 1 retrolisthesis: There is low signal intensity within the inferior endplate of the C4 vertebral body and superior endplate of C5 and the disc on T1, demonstrating increased signal on T2 and STIR imaging sequences possibly representing acute osteomyelitis and discitis. Would recommend clinical correlation and repeat study with contrast for further assessment. Normal disc height, signal and tiny right paracentral central disc protrusion.. Mild narrowing of the central canal and moderate bilateral neuroforaminal stenosis. C5-6: Mild endplate spurring.. Normal disc height, signal and moderate bulging of the disc with prominent right foraminal disc/osteophyte protrusion. Mild narrowing of the central canal. Moderate to severe left neural foraminal stenosis secondary to bony hypertrophy and more severe narrowing on the right due to disc and bony hypertrophy C6-7: Minor endplate spurring.. Normal disc height, signal and minor bulging of the disc with tiny central disc protrusion.. Minor narrowing of central canal. Moderate left neural foraminal stenosis secondary to bony hypertrophy. C7-T1: Normal endplates. Normal disc height, signal and morphology. Normal central canal and intervertebral neural foramina. Normal cervical cord. Normal visualized soft tissue structures. MRI/Spine Cervical (Routine) IMPRESSION: Signal changes within the C4 and C5 vertebral bodies as well as the disc possibly representing acute osteomyelitis and discitis however would recommend clinical correlation and further assessment with enhanced study Spondylosis and multilevel spinal stenosis secondary to disc disease and bony hypertrophy most severe at C5-6 on the right and C6-7 on the left Electronically Signed: Jefferson Warner MD at 16:17 EDT , Service support ,
--- NOTE | 2019-04-26 10:57 | PN_ITS ---
Subjective: Patient is a 63-year-old lady with past medical history single for diabetes mellitus type 2, tobacco use previous CVA who presented with transient numbness and tingling sensation involving the left upper arm. Patient was admitted to a monitored bed for subsequent management. Objective: GENERAL: cooperative HEENT: Atraumatic; moist oral mucosa EYES; Anicteric, Normal Conjunctiva NECK; supple, normal thyroid, RESPIRATORY: Diminished to auscultation CARDIOVASCULAR: Regular S1 S2, GI: soft, non-tender, normoactive bowel sounds, : No Renal angle tenderness; EXTREMITIES: No edema, no clubbing, no cyanosis. MUSCULOSKELETAL: No Joint Tenderness; NEURO: Awake; no lateralizing signs. SKIN: No Rash PSYCH; Normal affect Vitals/I&O's: Vital Signs Temp Pulse Resp BP Pulse Ox 98.2 F 87 18 135/91 H 95 04/26/19 10:00 04/26/19 10:00 04/26/19 10:00 04/26/19 10:00 04/26/19 10:00 Oxygen Flow Rate (L/min) 2 Oxygen Delivery Method Room Air Weight: 93.1 kg Body Mass Index (BMI) 35.2 Finger Stick Blood Glucose 159 Intake and Output for Last 24 Hours 04/24/19 04/25/19 04/26/19 23:59 23:59 23:59 Intake Total 90 / 90 Balance 90 / 90 Laboratory Results 04/25/19 23:39: POC Glucose 159 H 04/26/19 00:11: WBC 8.1, RBC 4.43, Hgb 13.3, Hct 40.2, MCV 90.7, MCH 30.0, MCHC 33.1, RDW Std Deviation 42.0, RDW Coeff of Dottie 12.7, Plt Count 187, MPV 9.4, Immature Gran % (Auto) 0.600, Neut % (Auto) 43.7 L, Lymph % (Auto) 45.5 H, Sampson % (Auto) 7.9, Eos % (Auto) 1.7, Baso % (Auto) 0.6, Absolute Neuts (auto) 3.5, Absolute Lymphs (auto) 3.68, Nucleated RBC % 0 04/26/19 00:11: PT 12.1, INR 0.9, APTT 24.7 04/26/19 00:11: Sodium 136, Potassium 3.4 L, Chloride 102, Carbon Dioxide 29.0, Anion Gap 5, BUN 11, Creatinine 0.99, Estim Creat Clear Calc 51.53, Est GFR (MDRD) Af Amer 74, Est GFR (MDRD) Non-Af 61, BUN/Creatinine Ratio 11.2, Glucose 151 H, Calcium 8.9, Troponin I < 0.015 04/26/19 05:30: Sodium 141, Potassium 3.9, Chloride 106, Carbon Dioxide 28.0, Anion Gap 7, BUN 10, Creatinine 0.82, Estim Creat Clear Calc 62.21, Est GFR (MDRD) Af Amer 91, Est GFR (MDRD) Non-Af 75, BUN/Creatinine Ratio 12.2, Glucose 143 H, Calcium 8.5, Triglycerides 132, Cholesterol 120, LDL Cholesterol 42, VLDL Cholesterol 26, HDL Cholesterol 52 04/26/19 05:30: Hemoglobin A1c 8.8 H 04/26/19 06:39: POC Glucose 140 H 04/26/19 07:53: POC Glucose 149 H Current Medications Albuterol Sulfate (Ventolin Aerosols) 2.5 mg INHALATION Q2H PRN PRN PRN Reason: SOB/Wheezing Albuterol/Ipratropium (Duoneb) 3 ml INHALATION Q6HWA.RT [facility] [place] Last Admin: 04/26/19 06:34 Dose: 3 ml Documented by: Aspirin (Aspirin, Baby) 81 mg PO DAILY@0800 [facility] [place] Last Admin: 04/26/19 08:40 Dose: 81 mg Documented by: Atorvastatin Calcium (Lipitor) 80 mg PO QHS [facility] [place] Benzonatate (Tessalon Perle) 100 mg PO TID PRN PRN PRN Reason: cough Dextrose (D50w Syringe) 0 gm IV X1 PRN; Protocol PRN Reason: Hypoglycemia Enoxaparin Sodium (Lovenox) 40 mg SC DAILY [facility] [place] Last Admin: 04/26/19 08:41 Dose: 40 mg Documented by: Fluticasone Propionate (Flonase Nasal [place]) 1 spray NASAL BID [facility] [place] Last Admin: 04/26/19 08:40 Dose: 1 spray Documented by: Glipizide (Glucotrol) 5 mg PO DAILYCM [facility] [place] Last Admin: 04/26/19 08:40 Dose: 5 mg Documented by: Glucagon () 1 mg IM .X1 PRN PRN Reason: Hypoglycemia Sodium Chloride () 250 mls @ 15 mls/hr IV .[id number] PRN PRN Reason: SALINE FLUSH Insulin Human Lispro (Humalog Kwikpen (Bkc)) 0 unit SC ACHS [facility] [place]; Protocol Last Admin: 04/26/19 07:59 Dose: Not Given Documented by: Labetalol HCl (Trandate) 10 mg IV Q10M PRN PRN Reason: MAINTAIN BP < 220/120 Stop: 04/27/19 01:46 Levofloxacin (Levaquin Tablet) 500 mg PO DAILY [facility] [place] Stop: 04/28/19 10:01 Last Admin: 04/26/19 08:41 Dose: 500 mg Documented by: Nicotine (Nicoderm Cq (Pbkc)) 21 mg TRANSDERM. DAILY [facility] [place] Last Admin: 04/26/19 08:47 Dose: Not Given Documented by: Nutritional Formula (Lactose Free) (Glucerna Shake) 120 ml PO TIDCM [facility] [place] Last Admin: 04/26/19 08:37 Dose: Not Given Documented by: Sodium Chloride () 10 - 40 ml IV UD PRN PRN Reason: SALINE FLUSH Medical Necessity - Tobacco Use Smoking Status: Current every day smoker Tobacco Use: Cigarettes Assessment/Plan All Active Problems (Last Reviewed 04/26/19 @ 02:48 by Jacob Landeros MD) Asthma exacerbation (Acute) Acute bronchitis (Acute) Patient is a 63-year-old lady with past medical history single for diabetes mellitus type 2, tobacco use previous CVA who presented with transient numbness and tingling sensation involving the left upper arm. Patient was admitted to a monitored bed for subsequent management. 1. Acute ischemic CVA: Presented with left upper extremity transient numbness and weakness. MRI demonstrated infarct in the right frontal parietal region. Patient placed on antiplatelet therapy with aspirin as well as statin therapy. Subsequent evaluation with CTA of the neck demonstrated critical stenosis involving the right carotid artery consult placed to both neurology as well as vascular surgery 2. Questionable acute osteomyelitis and discitis involving C4 and C5 cervical spine. MRI with contrast ordered for subsequent evaluation. Also ordered CRP and ESR and consultation placed to infectious disease 3. Diabetes mellitus type 2; continue patient home regimen in addition to Accu- Cheks before meals and at bedtime with sliding scale coverage 4. Essential hypertension patient blood pressure currently stable 5. Acute bronchitis patient was treated with Levaquin as outpatient 6. Tobacco dependence counseled on cessation, offered nicotine patch for tobacco cravings 7. Recent diagnosis of hep C patient is currently followed by a metal lather in [place] 8. DVT prophylaxis SC Lovenox Active Medications Albuterol Sulfate (Ventolin Aerosols) 2.5 mg INHALATION Q2H PRN PRN PRN Reason: SOB/Wheezing Albuterol/Ipratropium (Duoneb) 3 ml INHALATION Q6HWA.RT [facility] [place] Last Admin: 04/26/19 12:55 Dose: 3 ml Documented by: Aspirin (Aspirin, Baby) 81 mg PO DAILY@0800 [facility] [place] Last Admin: 04/26/19 08:40 Dose: 81 mg Documented by: Atorvastatin Calcium (Lipitor) 80 mg PO QHS [facility] [place] Benzonatate (Tessalon Perle) 100 mg PO TID PRN PRN PRN Reason: cough Dextrose (D50w Syringe) 0 gm IV X1 PRN; Protocol PRN Reason: Hypoglycemia Enoxaparin Sodium (Lovenox) 40 mg SC DAILY [facility] [place] Last Admin: 04/26/19 08:41 Dose: 40 mg Documented by: Fluticasone Propionate (Flonase Nasal [place]) 1 spray NASAL BID [facility] [place] Last Admin: 04/26/19 08:40 Dose: 1 spray Documented by: Glipizide (Glucotrol) 5 mg PO DAILYCM [facility] [place] Last Admin: 04/26/19 08:40 Dose: 5 mg Documented by: Glucagon () 1 mg IM .X1 PRN PRN Reason: Hypoglycemia Sodium Chloride () 250 mls @ 15 mls/hr IV .[id number] PRN PRN Reason: SALINE FLUSH Insulin Human Lispro (Humalog Palmirapen (Bkc)) 0 unit SC ACHS [facility] [place]; Protocol Last Admin: 04/26/19 11:52 Dose: Not Given Documented by: Labetalol HCl (Trandate) 10 mg IV Q10M PRN PRN Reason: MAINTAIN BP < 220/120 Stop: 04/27/19 01:46 Levofloxacin (Levaquin Tablet) 500 mg PO DAILY [facility] [place] Stop: 04/28/19 10:01 Last Admin: 04/26/19 08:41 Dose: 500 mg Documented by: Nicotine (Nicoderm Cq (Pbkc)) 21 mg TRANSDERM. DAILY [facility] [place] Last Admin: 04/26/19 08:47 Dose: Not Given Documented by: Sodium Chloride () 10 - 40 ml IV UD PRN PRN Reason: SALINE FLUSH Clinical Impression(s) from Imaging Studies Brain CT 04/25/19 23:27 IMPRESSION: Negative unenhanced CT scan of the brain for acute abnormality or interval change. Electronically Signed: Clarence German, at 0:16 EDT Tel , Service support , Chest X-Ray 04/25/19 23:27 IMPRESSION: Negative x-ray examination of the chest. No interval change. Electronically Signed: Clarence German, at 0:30 EDT Tel , Service support , Brain MRI 04/26/19 01:45 IMPRESSION: Minor periventricular white matter ischemic changes. Small focal deep white matter infarct in the right frontal parietal region. Electronically Signed: Jefferson Warner MD at 16:01 EDT , Service support , ADDENDUM: 04/26/19 1623 IMPRESSION: Minor periventricular white matter ischemic changes. Small focal deep white matter infarct in the right frontal parietal region. N.B. : The above information has been verbally conveyed by Jefferson Warner MD to Paulina Gallegos RN, RN, on 04/26/2019 16:16:15 (ET). Electronically Signed: Jefferson Warner MD at 16:01 EDT , Service support , Head/Neck CTA 04/26/19 10:46 IMPRESSION: High-grade stenosis at the origin of the right internal carotid artery. 50-60% narrowing of the proximal portion of the left internal carotid artery. Electronically Signed: Tacho Russell, at 15:40 EDT , Service support , Cervical Spine MRI 04/26/19 10:54 IMPRESSION: Signal changes within the C4 and C5 vertebral bodies as well as the disc possibly representing acute osteomyelitis and discitis however would recommend clinical correlation and further assessment with enhanced study Spondylosis and multilevel spinal stenosis secondary to disc disease and bony hypertrophy most severe at C5-6 on the right and C6-7 on the left Electronically Signed: Jefferson Warner MD at 16:17 EDT , Service support , Code Visit OBSV E&M: 00320 Subsequent observation care L3
[2019-04-26 11:50] LABS: Bedside Glucose 134 mg/dL (70-110)
[2019-04-26] MEDS: Glucerna Shake 120 ML LIQUID PO (12:00)
--- NOTE | 2019-04-26 15:52 | CHAPLAIN ---
Type of Pastoral Visit _x__ Initial Visit ___ Follow-up Visit ___ On-call Visit ___ General Patient Visit ___ Spiritual Assessment ___ Family Conference ___ Bereavement ___ Rapid Response ___ Code Blue ___ Other (describe below) Pastoral Care Referral From _x__ Patient ___ Family ___ Nurse ___ Physician ___ [facility] ___ [place] ___ Other (describe below) Sacrament/Intervention ___ Active listening ___ Anointing ___ Mu-Ism ___ Bereavement ___ Communion ___ Analisa exploration ___ ___ Life review _x__ Prayer ___ Reconciliation ___ Sacrament of Sick ___ Supportive presence ___ Wedding ___ Other (describe below) Pastoral Comments said a prayer at request of patient before she was being taken for an MRI
--- NOTE | 2019-04-26 16:34 | MRI_ITS ---
STUDY: MRI CERVICAL SPINE WITH CONTRAST REASON FOR EXAM: Female, 63 years old. Left arm numbness TECHNIQUE: Standardized fat and water weighted pulse sequences were obtained in the sagittal and axial following administration of 18 IV Dotarem. COMPARISON: MRI of the cervical spine without contrast on April 26, 2019 FINDINGS: Following contrast injection, there is enhancement of the C4 and C5 vertebral bodies as well as the intervening disc consistent with acute osteomyelitis and discitis. There is also enhancement of the prevertebral soft tissues consistent with inflammatory changes. There is focal enhancement of the soft tissues in the anterior epidural space mildly impinging upon the cord which may be consistent with small focal empyema MRI/Spine Cervical WITH Contrast IMPRESSION: Enhancement of the vertebral bodies and disc at C4-5 consistent with acute osteomyelitis and discitis with small focal epidural empyema.. Electronically Signed: Jefferson Warner MD at 20:43 EDT , Service support ,
[2019-04-26 16:40] LABS: Bedside Glucose 183 mg/dL (70-110)
[2019-04-26 16:58] LABS: CRP < 2.90 mg/L (0.0-3.0)
[2019-04-26] MEDS: Insulin Lispro 100 UNIT/ML INSULN.PEN SC ×2 (17:16→21:57)
[2019-04-26 17:19] LABS: Erythrocyte Sedimentation Rate 62 mm/hr (0-30)
--- NOTE | 2019-04-26 18:59 | PCM.CONS.GEN ---
Problem List (1) Carotid stenosis, right Status: Acute Reason for Consult Date of Consultation: 04/26/19 History of Present Illness: The patient is a 63 year old F who I have been asked to see for right carotid artery stenosis and right frontal infarct. The patient's been referred by Dr. Gaines and a written copy of my surgical consult recommendations will be on her electronic chart. The patient was admitted yesterday April 25, 2019 with a brief episode of left upper extremity numbness and tingling. Lasted no longer than 45 minutes and is resolved. She also presented with a tentative diagnosis of acute bronchitis. She is a type II diabetic and has hypertension. At the time of her admission she was not on a statin medication and she was not on a antiplatelet agent/aspirin. She states that she has had a previous stroke in the past perhaps 5 years ago where she had eye deviation It is of note that her ESR is 62. Hemoglobin A1c is 8.8. She is eating pretzels upon my arrival. Triglycerides are 132 and cholesterol 120 and LDL 42 and VLDL 26 and HDL 52. Her blood sugars tend above normal. Her brain CT scan admission showed negative unenhanced CT of the brain. A chest x-ray was not felt to be remarkable A brain MRI performed today suggests minor periventricular white matter ischemic changes with a small focal deep white matter infarct in the right frontal parietal region A CTA of the head and neck suggest high-grade stenosis of the origin of the right internal carotid and 50 to 60% narrowing of the left internal carotid A cervical spine MR a suggest findings possibly consistent with acute osteomyelitis and discitis at C4-C5. An echocardiogram suggested 70% ejection fraction. Mild focal aortic valve calcification. The patient states that her symptoms have completely resolved and she has not had any recurrent problems. She has been a long-term cigarette smoker and despite her previous CVA she is continued to smoke at least at the rate of 1 pack/day. She claims that no one has instructed her to stop Past Medical History Past Medical History (Chronic Problems): Chronic Problems (Last Reviewed 04/26/19 @ 02:48 by Jacob Landeros MD) Elevated liver enzymes (Chronic) Diabetes (Chronic) Rheumatoid arthritis (Chronic) Type II diabetes mellitus (Chronic) Hypertension (Chronic) Medical History: Medical History (Last Reviewed 04/26/19 @ 02:48 by Jacob Landeros MD) Diabetes (Chronic) E11.9 Rheumatoid arthritis (Chronic) M06.9 Asthma J45.909 Chest pain R07.9 H/O: hysterectomy Z98.890, Z90.710 SOB (shortness of breath) R06.02 Stroke I63.9 Hypertension I10 Allergies Penicillins Allergy (Verified 04/21/19 15:17) Swelling oxycodone HCl [From Percocet] Adverse Reaction (Verified 04/21/19 15:17) Itching Home Medications: Ambulatory Orders Medication Instructions Recorded albuterol sulfate HFA 90 2 puff INHALATION Q6H #8.5 g 02/02/19 mcg/actuation aerosol inhaler amlodipine 5 mg tablet 5 mg PO DAILY 02/02/19 glipizide 5 mg tablet 5 mg PO DAILY #90 tab 02/12/19 benzonatate 100 mg capsule 100 mg PO TID PRN #30 cap 02/23/19 ertugliflozin 15 mg tablet 15 mg PO QAM #30 tab 02/23/19 albuterol sulfate HFA 90 2 puff INHALATION Q6H #8.5 g 04/21/19 mcg/actuation aerosol inhaler levofloxacin 500 mg tablet 500 mg PO DAILY #10 tab 04/21/19 Surgical History: Surgical History (Last Reviewed 04/26/19 @ 02:48 by Jacob Landeros MD) History of eye surgery Z98.890 knee scope Bilateral Surgical History: - Psychiatric History: 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 Lives: With Family Smoking Status: Current every day smoker Tobacco Use: Cigarettes Alcohol: Occasional - *Family History Maternal Family History: Family History (Last Reviewed 04/26/19 @ 02:48 by Jacob Landeros MD) Mother Hypertension Emphysema/COPD Sister Hypertension History Items: No pertinent history Paternal Family History: Family History (Last Reviewed 04/26/19 @ 02:48 by Jacob Landeros MD) Mother Hypertension Emphysema/COPD Sister Hypertension History Items: No pertinent history Review of Systems Constitutional: Denies: Anorexia Eyes: Denies: Blurred vision HEENT: Denies: Difficulty Hearing Cardiovascular: Denies: Chest Pain Respiratory: Reports: - - Dyspnea on exertion at one flight of stairs Gastrointestinal: Denies: Abdominal Pain Musculoskeletal: Reports: - - Normal bilateral upper extremity sensation currently. Denies: Arm Pain Endocrine: Denies: Change in Body Habitus Patient Problems: Active and Suspected Problems (Last Reviewed 04/26/19 @ 02:48 by Jacob Landeros MD) Carotid stenosis, right (Acute) - Physical Exam General: Alert, Oriented x3, Cooperative, No apparent distress HEENT: Atraumatic Oral: Moist Mucosa Neck: Supple, - - Soft 1/6 right carotid bruit Lungs: - - Scattered wheezes noted on the left Cardiovascular: Regular rate, Regular Rhythm, - - Bilateral carotids are 3+. Soft 1/6 bruit on the right. Bilateral brachials 3+. Right radial diminished at 1+. Left radial 2+. Abdomen: Bowel Sounds Present, Soft, Non Tender Extremities: No Calf Tenderness Neurological: Cranial nerves II-XII grossly intact Psych/Mental Status: Normal Affect Vital Signs Temp Pulse Resp BP Pulse Ox 99.0 F 91 16 127/70 H 96 04/26/19 17:58 04/26/19 17:58 04/26/19 17:58 04/26/19 17:58 04/26/19 17:58 Oxygen Flow Rate (L/min) 2 Oxygen Delivery Method Nasal Cannula Weight: 205 lb 4.006 oz Body Mass Index (BMI) 35.2 Finger Stick Blood Glucose 159 Intake and Output for Last 24 Hours 04/24/19 04/25/19 04/26/19 23:59 23:59 23:59 Intake Total 1070 / 1070 Balance 1070 / 1070 Laboratory Tests Past 24 Hrs 04/26/19 04/26/19 04/26/19 00:11 00:11 00:11 WBC 8.1 RBC 4.43 Hgb 13.3 Hct 40.2 MCV 90.7 MCH 30.0 MCHC 33.1 RDW Std Deviation 42.0 RDW Coeff of Dottie 12.7 Plt Count 187 MPV 9.4 Immature Gran % (Auto) 0.600 Neut % (Auto) 43.7 L Lymph % (Auto) 45.5 H [place] % (Auto) 7.9 Eos % (Auto) 1.7 Baso % (Auto) 0.6 Absolute Neuts (auto) 3.5 Absolute Lymphs (auto) 3.68 Nucleated RBC % 0 ESR PT 12.1 INR 0.9 APTT 24.7 Sodium 136 Potassium 3.4 L Chloride 102 Carbon Dioxide 29.0 Anion Gap 5 BUN 11 Creatinine 0.99 Estim Creat Clear Calc 51.53 Est GFR (MDRD) Af Amer 74 Est GFR (MDRD) Non-Af 61 BUN/Creatinine Ratio 11.2 Glucose 151 H Hemoglobin A1c Calcium 8.9 Troponin I < 0.015 C-React Prot Ext Range Triglycerides Cholesterol LDL Cholesterol VLDL Cholesterol HDL Cholesterol 04/26/19 04/26/19 04/26/19 00:11 05:30 05:30 WBC RBC Hgb Hct MCV MCH MCHC RDW Std Deviation RDW Coeff of Dottie Plt Count MPV Immature Gran % (Auto) Neut % (Auto) Lymph % (Auto) [place] % (Auto) Eos % (Auto) Baso % (Auto) Absolute Neuts (auto) Absolute Lymphs (auto) Nucleated RBC % ESR PT INR APTT Sodium 141 Potassium 3.9 Chloride 106 Carbon Dioxide 28.0 Anion Gap 7 BUN 10 Creatinine 0.82 Estim Creat Clear Calc 62.21 Est GFR (MDRD) Af Amer 91 Est GFR (MDRD) Non-Af 75 BUN/Creatinine Ratio 12.2 Glucose 143 H Hemoglobin A1c 8.8 H Calcium 8.5 Troponin I C-React Prot Ext Range < 2.90 Triglycerides 132 Cholesterol 120 LDL Cholesterol 42 VLDL Cholesterol 26 HDL Cholesterol 52 04/26/19 05:30 WBC RBC Hgb Hct MCV MCH MCHC RDW Std Deviation RDW Coeff of Dottie Plt Count MPV Immature Gran % (Auto) Neut % (Auto) Lymph % (Auto) [place] % (Auto) Eos % (Auto) Baso % (Auto) Absolute Neuts (auto) Absolute Lymphs (auto) Nucleated RBC % ESR 62 H PT INR APTT Sodium Potassium Chloride Carbon Dioxide Anion Gap BUN Creatinine Estim Creat Clear Calc Est GFR (MDRD) Af Amer Est GFR (MDRD) Non-Af BUN/Creatinine Ratio Glucose Hemoglobin A1c Calcium Troponin I C-React Prot Ext Range Triglycerides Cholesterol LDL Cholesterol VLDL Cholesterol HDL Cholesterol POC Glucose 04/26/19 04/26/19 04/26/19 16:33 11:40 07:53 POC Glucose 183 H 134 H 149 H 04/26/19 04/25/19 06:39 23:39 POC Glucose 140 H 159 H Assessment/Plan All Active Problems (Last Reviewed 04/26/19 @ 02:48 by Jacob Landeros MD) Carotid stenosis, right (Acute) Asthma exacerbation (Acute) Acute bronchitis (Acute) 63-year-old female with signs and symptoms consistent with metabolic right frontal infarct likely from the right internal carotid. She was not previously on statin medications or antiplatelet agents. She currently however has problems with an acute respiratory event of some sort. Possibly bronchitis undetermined currently. She is requiring oxygen which she does not required at home. There is some concern that the patient may have osteomyelitis/discitis. She has an elevated ESR. This is undergoing ongoing evaluation. I do believe that she likely will be a candidate for right carotid intervention. I have vigorously encouraged the patient to stop her tobacco use. She has been initiated on statin medications and antiplatelet therapy. I recommend that her medical comorbidities be maximized prior to attempting surgery. I also recommend that we obtain a carotid duplex imaging exam as the CT has significant amount of calcific plaque shadowing. With the patient's son present I have compared and contrasted right carotid endarterectomy with carotid artery stenting. With her having had a suspected embolic event I would suspect that carotid artery stenting would carry increased risk. She has had an opportunity to ask and have questions answered. We will continue to follow her progress. I anticipate we will allow her to further recover and plan intervention in a short period as an outpatient after discharge. I appreciate the opportunity of assisting with his surgical care Les Mayer M.D., F.A.C.S.
--- NOTE | 2019-04-26 21:04 | NURSING ---
Pt c/o bilat feet falling asleep/sensation change. Focused neuro assessment competed, no abnormalities noted.
--- NOTE | 2019-04-26 21:50 | CPS ---
Pt. was initially on 2L oxygen, saturation reading 100%. Oxygen titrated to 1L, and pt.'s saturation was reading 99%. Titrated pt. to Room Air, and she is relaxing comfortably at 98%
[2019-04-26] MEDS: Atorvastatin Calcium 80 MG Tablet PO (21:53)
[2019-04-27] VITALS (10 sets, daily range): BP systolic 149–167; BP diastolic 68–92; PULSE 78–95; RESP 18–20; TEMP 36.8–37.2; O2SAT 92–98
[2019-04-27] MEDS: 0.9% NaCl Peripheral Flush Adult/Peds IV ×2 (00:07→02:40)
--- NOTE | 2019-04-27 00:17 | PCM.RX.CS ---
Consult Pharmacy has been consulted to manage selected antiobiotic: Vancomycin Type of Consult: New start Suspected Infection: Other Prior Doses of Antibiotics Received/Current Regimen: Medications Vancomycin HCl (Vancomycin) 1,000 mg in 200 mls @ 200 mls/hr IV Q12H [place] Vancomycin HCl 1,500 mg/ (Sodium Chloride) 530 mls @ 250 mls/hr IV X1 ONE Stop: 04/27/19 01:37 Last Admin: 04/27/19 00:05 Dose: 250 mls/hr Labs: Sodium 141 mmol/L (136-145) 04/26/19 05:30 Potassium 3.9 mmol/L (3.5-5.1) 04/26/19 05:30 Chloride 106 mmol/L (98-107) 04/26/19 05:30 Carbon Dioxide 28.0 mmol/L (21.0-32.0) 04/26/19 05:30 7 (5-15) 04/26/19 05:30 BUN 10 mg/dL (7-18) 04/26/19 05:30 0.82 mg/dL (0.55-1.02) 04/26/19 05:30 Est GFR (MDRD) Af Amer 91 mL/min (>60) 04/26/19 05:30 Est GFR (MDRD) Non-Af 75 mL/min (>60) 04/26/19 05:30 12.2 RATIO (10-20) 04/26/19 05:30 Glucose 143 mg/dL (74-106) H 04/26/19 05:30 Weight used for dosin.1 kg Estimated Creatinine Clearance: 62.2 Goal Trough: 15-20 mcg/mL Pharmacy Plan for Drug Dosing: Pharmacy Service will continue to monitor and adjust dosing as required. Follow-Up Labs: Trough Vancomycin Labs to be done on [date and time ordered]: 04/28/19 @6920
[2019-04-27] MEDS: Benzonatate 100 MG Capsule PO (02:40)
--- NOTE | 2019-04-27 05:52 | PN.SURG_ITS ---
Patient Problems: Active and Suspected Problems (Last Reviewed 04/26/19 @ 02:48 by Jacob Landeros MD) Carotid stenosis, right (Acute) Subjective: Pt states no recurrent problem ARTURO Wants to be discharged so she can go to [place] tomorrow re: Hep C - Physical Exam Lungs: Wheezes Vital Signs Temp Pulse Resp BP Pulse Ox 98.4 F 95 20 H 167/68 H 96 04/27/19 01:58 04/27/19 01:58 04/27/19 01:58 04/27/19 01:58 04/27/19 01:58 Oxygen Flow Rate (L/min) 2 Oxygen Delivery Method Room Air Weight: 205 lb 4.006 oz Body Mass Index (BMI) 35.2 Finger Stick Blood Glucose 159 Intake and Output for Last 24 Hours 04/25/19 04/26/19 04/27/19 23:59 23:59 23:59 Intake Total 1070 / 1070 Balance 1070 / 1070 Laboratory Tests Past 24 Hrs 04/26/19 04/26/19 04/26/19 00:11 05:30 05:30 ESR Sodium 141 Potassium 3.9 Chloride 106 Carbon Dioxide 28.0 Anion Gap 7 BUN 10 Creatinine 0.82 Estim Creat Clear Calc 62.21 Est GFR (MDRD) Af Amer 91 Est GFR (MDRD) Non-Af 75 BUN/Creatinine Ratio 12.2 Glucose 143 H Hemoglobin A1c 8.8 H Calcium 8.5 C-React Prot Ext Range < 2.90 Triglycerides 132 Cholesterol 120 LDL Cholesterol 42 VLDL Cholesterol 26 HDL Cholesterol 52 04/26/19 05:30 ESR 62 H Sodium Potassium Chloride Carbon Dioxide Anion Gap BUN Creatinine Estim Creat Clear Calc Est GFR (MDRD) Af Amer Est GFR (MDRD) Non-Af BUN/Creatinine Ratio Glucose Hemoglobin A1c Calcium C-React Prot Ext Range Triglycerides Cholesterol LDL Cholesterol VLDL Cholesterol HDL Cholesterol POC Glucose 04/26/19 04/26/19 04/26/19 16:33 11:40 07:53 POC Glucose 183 H 134 H 149 H 04/26/19 06:39 POC Glucose 140 H Medical Necessity - Tobacco Use Smoking Status: Current every day smoker Tobacco Use: Cigarettes Assessment/Plan All Active Problems (Last Reviewed 04/26/19 @ 02:48 by Jacob Landeros MD) Carotid stenosis, right (Acute) Asthma exacerbation (Acute) Acute bronchitis (Acute) Resp Rate 20 Bilateral expiratory wheezing Carotid duplex pending Recommend ongoing maximization of medical care. Would like pulmonary status improved prior to attempt at Right CEA
[2019-04-27 06:03] LABS: Absolute Lymphocyte Count 2.31 X10^3/uL (0.83-4.51); Absolute Neutrophil Count 2.3 X10^3/uL (2.0-7.7); Basophil# 0.04 X10^3/uL; Basophil% 0.7 % (0-1); Eosinophil# 0.13 X10^3/uL; Eosinophils% 2.4 % (0-5); Hematocrit 37.1 % (37-47); Lymphocyte # 2.31 X10^3/ul (4.0); Mean Corp Hgb Conc 32.3 g/dL (32-36); Mean Corpuscular Hgb 29.9 pg (27.0-32.0); Mean Corpuscular Volume 92.3 fL (81-99); Mean Platelet Vol. 9.3 fl (6.2-12.0); Monocyte# 0.61 X10^3/uL; Monocyte% 11.4 % (0-10); NRBC Flagged by Analyzer 0 % (0-5); Neutrophil # 2.26 X10^3/uL (2.7-7.7); Neutrophil % 42.1 % (47-70); Platelet Count 169 K/mm3 (150-450); RBC Distribution Width CV 12.8 % (11.6-14.6); RBC Distribution Width SD 43.4 fl (35.1-43.9); Red Blood Count 4.02 M/mm3 (4.2-5.4); White Blood Count 5.4 K/mm3 (4.4-11.0)
[2019-04-27 06:21] LABS: ALB/GLOB Ratio 0.5 RATIO (0.9-2.4); AST(SGOT) 36 U/L (15-37); Alanine Aminotransfer ALT/SGPT 39 U/L (13-56); Albumin, Serum 2.3 g/dL (3.2-5.0); Alkaline Phosphatase 81 U/L (45-117); Anion Gap 6 (5-15); BUN 12 mg/dL (7-18); BUN/Creat Ratio 13.8 RATIO (10-20); Calcium,Total 8.7 mg/dL (8.5-10.1); Chloride 109 mmol/L (98-107); Creatinine, Serum 0.87 mg/dL (0.55-1.02); EST Glomerular Filtration Rate 71 mL/min (>60); Est Glom Filt Rate - Afr Amer 85 mL/min (>60); Estimated Creatinine Clearance 58.64 ml/min; Globulin 4.4 g/dL (2.2-4.2); Glucose 162 mg/dL (74-106); Magnesium 2.4 mg/dL (1.6-2.6); Potassium 3.9 mmol/L (3.5-5.1); Protein, Total 6.7 g/dL (6.4-8.2); Sodium Level 143 mmol/L (136-145)
[2019-04-27] MEDS: Insulin Lispro 100 UNIT/ML INSULN.PEN SC ×3 (06:27→16:30)
[2019-04-27 06:31] LABS: Bedside Glucose 154 mg/dL (70-110)
[2019-04-27] MEDS: Ipratropium/Albuterol Sulfate 3 ML AMPUL.NEB INHALATION ×2 (07:41→13:06)
[2019-04-27 07:55] LABS: Bedside Glucose 302 mg/dL (70-110)
[2019-04-27 07:56] LABS: Bedside Glucose 333 mg/dL (70-110)
[2019-04-27] MEDS: Aspirin 81 MG TAB.CHEW PO (08:15)
[2019-04-27] MEDS: glipiZIDE 5 MG Tablet PO (08:15)
--- NOTE | 2019-04-27 09:41 | CASEMGMT ---
According to the [facility] medicaid website, the following are in-network tertiary facilities: [facility], [facility], [facility], [facility], [facility], [facility], [facility], [place], [facility], and . Abdelrahman JORDAN CM
[2019-04-27] MEDS: levoFLOXacin 500 MG Tablet PO (09:45)
[2019-04-27] MEDS: Enoxaparin 40 MG/0.4 ML Syringe SC (09:45)
--- NOTE | 2019-04-27 10:28 | PCM.DC ---
- Discharge Diagnoses Current Active Problems: Current Active and Chronic Problems (Last Reviewed 04/26/19 @ 02:48 by Jacob Landeros MD) Carotid stenosis, right (Acute) You will use the following diet at home:: Cardiac Your food should be the consistency of: Regular Discharge Activity: Return to Normal Activity, May not drive while taking narcotic pain medications. Allergies/Adverse Reactions: Allergies Penicillins Allergy (Verified 04/21/19 15:17) Swelling oxycodone HCl [From Percocet] Adverse Reaction (Verified 04/21/19 15:17) Itching Medications to take at Discharge albuterol sulfate HFA 90 mcg/actuation aerosol inhaler 2 puff INHALATION Q6H #8.5 g 02/02/19 amlodipine 5 mg tablet 5 mg PO DAILY 02/02/19 glipizide 5 mg tablet 5 mg PO DAILY #90 tab 02/12/19 benzonatate 100 mg capsule 100 mg PO TID PRN #30 cap 02/23/19 ertugliflozin 15 mg tablet 15 mg PO QAM #30 tab 02/23/19 albuterol sulfate HFA 90 mcg/actuation aerosol inhaler 2 puff INHALATION Q6H #8.5 g 04/21/19 levofloxacin 500 mg tablet 500 mg PO DAILY #10 tab 04/21/19 Aspirin [Aspirin, Baby] 81 mg PO DAILY@0800 tab.chew 04/27/19 Atorvastatin Calcium [Lipitor] 80 mg PO QHS tab 04/27/19 Enoxaparin [Lovenox] 40 mg SUBCUT DAILY syringe 04/27/19 Fluticasone 0.05% [Flonase Nasal [place]] 1 spray NASAL BID nasal.sry 04/27/19 Insulin Lispro [Humalog KwikPen] See Protocol SUBCUT ACHS insuln.pen 04/27/19 Ipratropium/Albuterol Sulfate [Duoneb] 3 ml INHALATION Q6HWA.RT ampul.neb 04/27/19 Nicotine [Nicoderm Cq] 21 mg TRANSDERM. DAILY patch 04/27/19 Vancomycin IV Pharmacy to Dose 1 ea IV PRN PRN ea 04/27/19 Vancomycin IV [Vancomycin] 1,000 mg IV Q12H bag 04/27/19 levoFLOXacin tablet [Levaquin tablet] 500 mg PO DAILY tab 04/27/19 Primary Care Physician: Prince Cummins DO [Primary Care Provider] - Please follow up with your Primary Care Physician in: in 1-2 weeks following discharge from [facility] Test Results: Test results from this visit will be discussed in further detail at your follow-up appointment, if applicable. Please Follow Up With: Les Mayer MD When: in 1-2 weeks following discharge from [facility] Proposed Discharge Date: 04/27/19
--- NOTE | 2019-04-27 10:31 | DS.PCM_ITS ---
Discharge Date and Diagnosis - Problem List Patient Problems: Active and Suspected Problems (Last Reviewed 04/26/19 @ 02:48 by Jacob Landeros MD) Stroke (Acute) Acute CVA (cerebrovascular accident) (Acute) Discitis of cervical region (Acute) Carotid stenosis, right (Acute) Date of Admission: 04/26/19 Date of Discharge: 04/27/19 - Primary Discharge Diagnosis Active and Suspected Problems (Last Reviewed 04/26/19 @ 02:48 by Jacob Landeros MD) Acute CVA (cerebrovascular accident) (Acute) Discitis of cervical region (Acute) Carotid stenosis, right (Acute) - Secondary Discharge Diagnosis Chronic Problems (Last Reviewed 04/26/19 @ 02:48 by Jacob Landeros MD) Elevated liver enzymes (Chronic) Diabetes (Chronic) Rheumatoid arthritis (Chronic) Type II diabetes mellitus (Chronic) Hypertension (Chronic) Hospital Course and Treatment Imaging Results: Clinical Impression(s) from Imaging Studies Brain CT 04/25/19 23:27 IMPRESSION: Negative unenhanced CT scan of the brain for acute abnormality or interval change. Electronically Signed: Clarence German, at 0:16 EDT Tel , Service support , Chest X-Ray 04/25/19 23:27 IMPRESSION: Negative x-ray examination of the chest. No interval change. Electronically Signed: Clarence German, at 0:30 EDT Tel , Service support , Brain MRI 04/26/19 01:45 IMPRESSION: Minor periventricular white matter ischemic changes. Small focal deep white matter infarct in the right frontal parietal region. Electronically Signed: Jefferson Warner MD at 16:01 EDT , Service support , ADDENDUM: 04/26/19 1623 IMPRESSION: Minor periventricular white matter ischemic changes. Small focal deep white matter infarct in the right frontal parietal region. N.B. : The above information has been verbally conveyed by Jefferson Warner MD to Paulina Gallegos RN, RN, on 04/26/2019 16:16:15 (ET). Electronically Signed: Jefferson Warner MD at 16:01 EDT , Service support , Head/Neck CTA 04/26/19 10:46 IMPRESSION: High-grade stenosis at the origin of the right internal carotid artery. 50-60% narrowing of the proximal portion of the left internal carotid artery. Electronically Signed: Tacho Russell, at 15:40 EDT , Service support , Cervical Spine MRI 04/26/19 10:54 IMPRESSION: Signal changes within the C4 and C5 vertebral bodies as well as the disc possibly representing acute osteomyelitis and discitis however would recommend clinical correlation and further assessment with enhanced study Spondylosis and multilevel spinal stenosis secondary to disc disease and bony hypertrophy most severe at C5-6 on the right and C6-7 on the left Electronically Signed: Jefferson Warner MD at 16:17 EDT , Service support , Cervical Spine MRI 04/26/19 16:34 IMPRESSION: Enhancement of the vertebral bodies and disc at C4-5 consistent with acute osteomyelitis and discitis with small focal epidural empyema.. Electronically Signed: Jefferson Warner MD at 20:43 EDT , Service support , Operations: None Summary of Care Provided: Patient is a 63-year-old lady with past medical history single for diabetes mellitus type 2, tobacco use previous CVA who presented with transient numbness and tingling sensation involving the left upper arm. Patient was admitted to a monitored bed for subsequent management. 1. Acute ischemic CVA: Presented with left upper extremity transient numbness and weakness. MRI demonstrated infarct in the right frontal parietal region. Patient placed on antiplatelet therapy with aspirin as well as statin therapy. Subsequent evaluation with CTA of the neck demonstrated critical stenosis involving the right carotid artery consult placed to both neurology as well as vascular surgery 2. Acute osteomyelitis and discitis involving C4 and C5 cervical spine. MRI with contrast demonstrated Enhancement of the vertebral bodies and disc at C4-5 consistent with acute osteomyelitis and discitis with small focal epidural empyema.. Patient was also found to have elevated ESR. Based on the above findings Case was discussed with the patient as well as his son decision was made to transfer the patient to a tertiary care center for subsequent treatment. 3. Diabetes mellitus type 2; continue patient home regimen in addition to Accu- Cheks before meals and at bedtime with sliding scale coverage 4. Essential hypertension patient blood pressure currently stable 5. COPD preceded by acute infectious bronchitis treated with aerosol treatment in addition to antibiotics. 6. Tobacco dependence counseled on cessation, offered nicotine patch for tobacco cravings 7. 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 DVT prophylaxis SC Lovenox Patient Problems: Active and Suspected Problems (Last Reviewed 04/26/19 @ 02:48 by Jacob Landeros MD) Stroke (Acute) Acute CVA (cerebrovascular accident) (Acute) Discitis of cervical region (Acute) Carotid stenosis, right (Acute) Objective: GENERAL: cooperative HEENT: Atraumatic; moist oral mucosa EYES; Anicteric, Normal Conjunctiva NECK; supple, normal thyroid, RESPIRATORY: Diminished to auscultation CARDIOVASCULAR: Regular S1 S2, GI: soft, non-tender, normoactive bowel sounds, : No Renal angle tenderness; EXTREMITIES: No edema, no clubbing, no cyanosis. MUSCULOSKELETAL: No Joint Tenderness; NEURO: Awake; no lateralizing signs. SKIN: No Rash PSYCH; Normal affect - Physical Exam Vital Signs Temp Pulse Resp BP Pulse Ox 98.5 F 90 18 165/71 H 98 04/27/19 09:46 04/27/19 09:46 04/27/19 09:46 04/27/19 09:46 04/27/19 09:46 Oxygen Flow Rate (L/min) 2 Oxygen Delivery Method Room Air Weight: 93.1 kg Body Mass Index (BMI) 35.2 Finger Stick Blood Glucose 159 Intake and Output for Last 24 Hours 04/25/19 04/26/19 04/27/19 23:59 23:59 23:59 Intake Total 1070 / 1070 Balance 1070 / 1070 Laboratory Tests Past 24 Hrs 04/26/19 04/26/19 04/27/19 00:11 05:30 05:50 WBC 5.4 RBC 4.02 L Hgb 12.0 Hct 37.1 MCV 92.3 MCH 29.9 MCHC 32.3 RDW Std Deviation 43.4 RDW Coeff of Dottie 12.8 Plt Count 169 MPV 9.3 Immature Gran % (Auto) 0.400 Neut % (Auto) 42.1 L Lymph % (Auto) 43.0 H [place] % (Auto) 11.4 H Eos % (Auto) 2.4 Baso % (Auto) 0.7 Absolute Neuts (auto) 2.3 Absolute Lymphs (auto) 2.31 Nucleated RBC % 0 ESR 62 H Sodium Potassium Chloride Carbon Dioxide Anion Gap BUN Creatinine Estim Creat Clear Calc Est GFR (MDRD) Af Amer Est GFR (MDRD) Non-Af BUN/Creatinine Ratio Glucose Calcium Magnesium Total Bilirubin AST ALT Alkaline Phosphatase C-React Prot Ext Range < 2.90 Total Protein Albumin Globulin Albumin/Globulin Ratio 04/27/19 05:50 WBC RBC Hgb Hct MCV MCH MCHC RDW Std Deviation RDW Coeff of Dottie Plt Count MPV Immature Gran % (Auto) Neut % (Auto) Lymph % (Auto) [place] % (Auto) Eos % (Auto) Baso % (Auto) Absolute Neuts (auto) Absolute Lymphs (auto) Nucleated RBC % ESR Sodium 143 Potassium 3.9 Chloride 109 H Carbon Dioxide 28.0 Anion Gap 6 BUN 12 Creatinine 0.87 Estim Creat Clear Calc 58.64 Est GFR (MDRD) Af Amer 85 Est GFR (MDRD) Non-Af 71 BUN/Creatinine Ratio 13.8 Glucose 162 H Calcium 8.7 Magnesium 2.4 Total Bilirubin 0.40 AST 36 ALT 39 Alkaline Phosphatase 81 C-React Prot Ext Range Total Protein 6.7 Albumin 2.3 L Globulin 4.4 H Albumin/Globulin Ratio 0.5 L POC Glucose 04/27/19 04/26/19 04/26/19 06:26 21:56 21:55 POC Glucose 154 H 333 H 302 H 04/26/19 04/26/19 16:33 11:40 POC Glucose 183 H 134 H Discharge Activity: Return to Normal Activity, May not drive while taking narcotic pain medications. Home Medications: Medications to take at Discharge albuterol sulfate HFA 90 mcg/actuation aerosol inhaler 2 puff INHALATION Q6H #8.5 g 02/02/19 amlodipine 5 mg tablet 5 mg PO DAILY 02/02/19 glipizide 5 mg tablet 5 mg PO DAILY #90 tab 02/12/19 benzonatate 100 mg capsule 100 mg PO TID PRN #30 cap 02/23/19 ertugliflozin 15 mg tablet 15 mg PO QAM #30 tab 02/23/19 albuterol sulfate HFA 90 mcg/actuation aerosol inhaler 2 puff INHALATION Q6H #8.5 g 04/21/19 levofloxacin 500 mg tablet 500 mg PO DAILY #10 tab 04/21/19 Aspirin [Aspirin, Baby] 81 mg PO DAILY@0800 tab.chew 04/27/19 Atorvastatin Calcium [Lipitor] 80 mg PO QHS tab 04/27/19 Enoxaparin [Lovenox] 40 mg SUBCUT DAILY syringe 04/27/19 Fluticasone 0.05% [Flonase Nasal [place]] 1 spray NASAL BID nasal.sry 04/27/19 Insulin Lispro [Humalog KwikPen] See Protocol SUBCUT ACHS insuln.pen 04/27/19 Ipratropium/Albuterol Sulfate [Duoneb] 3 ml INHALATION Q6HWA.RT ampul.neb 04/27/19 Nicotine [Nicoderm Cq] 21 mg TRANSDERM. DAILY patch 04/27/19 Vancomycin IV Pharmacy to Dose 1 ea IV PRN PRN ea 04/27/19 Vancomycin IV [Vancomycin] 1,000 mg IV Q12H bag 04/27/19 levoFLOXacin tablet [Levaquin tablet] 500 mg PO DAILY tab 04/27/19 Primary Care Physician: Prince Cummins DO [Primary Care Provider] - Please follow up with your Primary Care Physician in: in 1-2 weeks following discharge from [facility] Please Follow Up With: Les Mayer MD When: in 1-2 weeks following discharge from [facility] Disposition: Acute care Hospital Minutes spent on discharge:: 45 Patient Condition:: Fair Medical Necessity - Tobacco Use Smoking Status: Current every day smoker Tobacco Use: Cigarettes Meaningful Use Info Meaningful Use Diagnoses (Choose all that apply): Ischemic CVA - CVA Therapy Assessed for PT,OT and/or ST?: Yes - Ischemic Stroke Antithrombotic order at d/c?: Yes Dx of Atrial fib/flutter?: No Statins at discharge?: Yes Primary Dx Acute Ischemic CVA?: Yes IV tPA ordered during stay?: No Reason IV t-PA not ordered: Treatment not Indicated Code Visit Inpatient E&M: 91935 Disch Hosp
[2019-04-27 11:26] LABS: Bedside Glucose 209 mg/dL (70-110)
[2019-04-27] MEDS: Vancomycin IV 1,000 MG/200 ML BAG 200 MG IV (11:26)
--- NOTE | 2019-04-27 11:33 | CON.PCM_ITS ---
Problem List (1) Acute CVA (cerebrovascular accident) Status: Acute (2) Stroke Status: Acute Qualifiers: CVA mechanism: embolism Precerebral and cerebral artery: middle cerebral artery Laterality of affected vessel: right Qualified Code(s): I63.411 - Cerebral infarction due to embolism of right middle cerebral artery Reason for Consult Date of Consultation: 04/27/19 Reason for Consultation: Stroke, Critical right ICA stenosis History of Present Illness: The patient is a 63 year old F with PMH HTN, HLD, DM, history of stroke admitted with left arm tingling and numbness. Per patient yesterday 04/26/2019 around 10 AM she suddenly felt that her left hand was numb, she cannot feel her left hand and also could not move it. It lasted about 45 minutes before the symptoms improved. She denies any speech disturbances, visual disturbances, headache, dizziness and at present denies any focal motor weakness or sensory loss. She denies any left lower extremity numbness or weakness, denies any persistent neck pain low back pain or radicular symptoms. She denies any frequent falls, does not use any cane or walker to ambulate, does not drive and denies any need for assistance for her ADLs. MRI brain done on admission showed small infarct in the right frontoparietal region, CTA head and neck showed high-grade stenosis of the origin of the right ICA and 50 to 60% stenosis in the left ICA, MRI C-spine without contrast showed signal changes within C4 and C5 vertebral as well as the disc possibly representing acute osteomyelitis and discitis, spondylosis and multilevel spinal stenosis most severe at C5-C6 on the right and C6-C7 on the left, MRI C-spine with contrast reported to show enhancement of the vertebral bodies and disc at C4-C5 consistent with acute osteomyelitis and discitis with small focal epidural empyema. [] Past Medical History Past Medical History (Chronic Problems): Chronic Problems (Last Reviewed 04/26/19 @ 02:48 by Jacob Landeros MD) Elevated liver enzymes (Chronic) Diabetes (Chronic) Rheumatoid arthritis (Chronic) Type II diabetes mellitus (Chronic) Hypertension (Chronic) Medical History: Medical History (Last Reviewed 04/26/19 @ 02:48 by Jacob Landeros MD) Diabetes (Chronic) E11.9 Rheumatoid arthritis (Chronic) M06.9 Asthma J45.909 Chest pain R07.9 H/O: hysterectomy Z98.890, Z90.710 SOB (shortness of breath) R06.02 Stroke I63.9 Hypertension I10 Allergies Penicillins Allergy (Verified 04/21/19 15:17) Swelling oxycodone HCl [From Percocet] Adverse Reaction (Verified 04/21/19 15:17) Itching Home Medications: Ambulatory Orders Medication Instructions Recorded albuterol sulfate HFA 90 2 puff INHALATION Q6H #8.5 g 02/02/19 mcg/actuation aerosol inhaler amlodipine 5 mg tablet 5 mg PO DAILY 02/02/19 glipizide 5 mg tablet 5 mg PO DAILY #90 tab 02/12/19 benzonatate 100 mg capsule 100 mg PO TID PRN #30 cap 02/23/19 ertugliflozin 15 mg tablet 15 mg PO QAM #30 tab 02/23/19 albuterol sulfate HFA 90 2 puff INHALATION Q6H #8.5 g 04/21/19 mcg/actuation aerosol inhaler levofloxacin 500 mg tablet 500 mg PO DAILY #10 tab 04/21/19 Aspirin [Aspirin, Baby] 81 mg PO DAILY@0800 tab.chew 04/27/19 Atorvastatin Calcium [Lipitor] 80 mg PO QHS tab 04/27/19 Enoxaparin [Lovenox] 40 mg SUBCUT DAILY syringe 04/27/19 Fluticasone 0.05% [Flonase Nasal 1 spray NASAL BID nasal.sry 04/27/19 [place]] Insulin Lispro [Humalog KwikPen] See Protocol SUBCUT ACHS 04/27/19 insuln.pen Ipratropium/Albuterol Sulfate 3 ml INHALATION Q6HWA.RT ampul.neb 04/27/19 [Duoneb] Nicotine [Nicoderm Cq] 21 mg TRANSDERM. 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 Lives: With Family Smoking Status: Current every day smoker Tobacco Use: Cigarettes Alcohol: Occasional - *Family History Maternal Family History: Family History (Last Reviewed 04/26/19 @ 02:48 by Jacob Landeros MD) Mother Hypertension Emphysema/COPD Sister Hypertension History Items: No pertinent history Paternal Family History: Family History (Last Reviewed 04/26/19 @ 02:48 by Jacob Landeros MD) Mother Hypertension Emphysema/COPD Sister Hypertension History Items: No pertinent history Review of Systems Constitutional: Reports: - - Complete ROS negative except as documented in HPI Patient Problems: Active and Suspected Problems (Last Reviewed 04/26/19 @ 02:48 by Jacob Landeros MD) Stroke (Acute) Acute CVA (cerebrovascular accident) (Acute) Discitis of cervical region (Acute) Carotid stenosis, right (Acute) - Physical Exam General: Alert HEENT: Normocephalic Neck: Supple Lungs: Normal air movement Cardiovascular: Normal S1, Normal S2 Abdomen: Bowel Sounds Present Extremities: No cyanosis Neurological: - - Conscious, alert, CN II through XII grossly intact, power 5 x 5 both upper and lower extremities, no sensory loss, no cerebellar signs, gait deferred, reflexes + B/L B/S/T/K/A, NIHSS 0 at present, mRS 2 at present Psych/Mental Status: Normal Affect Vital Signs Temp Pulse Resp BP Pulse Ox 98.5 F 90 18 165/71 H 98 04/27/19 09:46 04/27/19 09:46 04/27/19 09:46 04/27/19 09:46 04/27/19 09:46 Oxygen Flow Rate (L/min) 2 Oxygen Delivery Method Room Air Weight: 93.1 kg Body Mass Index (BMI) 35.2 Finger Stick Blood Glucose 159 Intake and Output for Last 24 Hours 04/25/19 04/26/19 04/27/19 23:59 23:59 23:59 Intake Total 1070 / 1070 Balance 1070 / 1070 Laboratory Tests Past 24 Hrs 04/26/19 04/26/19 04/27/19 00:11 05:30 05:50 WBC 5.4 RBC 4.02 L Hgb 12.0 Hct 37.1 MCV 92.3 MCH 29.9 MCHC 32.3 RDW Std Deviation 43.4 RDW Coeff of Dottie 12.8 Plt Count 169 MPV 9.3 Immature Gran % (Auto) 0.400 Neut % (Auto) 42.1 L Lymph % (Auto) 43.0 H [place] % (Auto) 11.4 H Eos % (Auto) 2.4 Baso % (Auto) 0.7 Absolute Neuts (auto) 2.3 Absolute Lymphs (auto) 2.31 Nucleated RBC % 0 ESR 62 H Sodium Potassium Chloride Carbon Dioxide Anion Gap BUN Creatinine Estim Creat Clear Calc Est GFR (MDRD) Af Amer Est GFR (MDRD) Non-Af BUN/Creatinine Ratio Glucose Calcium Magnesium Total Bilirubin AST ALT Alkaline Phosphatase C-React Prot Ext Range < 2.90 Total Protein Albumin Globulin Albumin/Globulin Ratio 04/27/19 05:50 WBC RBC Hgb Hct MCV MCH MCHC RDW Std Deviation RDW Coeff of Dottie Plt Count MPV Immature Gran % (Auto) Neut % (Auto) Lymph % (Auto) [place] % (Auto) Eos % (Auto) Baso % (Auto) Absolute Neuts (auto) Absolute Lymphs (auto) Nucleated RBC % ESR Sodium 143 Potassium 3.9 Chloride 109 H Carbon Dioxide 28.0 Anion Gap 6 BUN 12 Creatinine 0.87 Estim Creat Clear Calc 58.64 Est GFR (MDRD) Af Amer 85 Est GFR (MDRD) Non-Af 71 BUN/Creatinine Ratio 13.8 Glucose 162 H Calcium 8.7 Magnesium 2.4 Total Bilirubin 0.40 AST 36 ALT 39 Alkaline Phosphatase 81 C-React Prot Ext Range Total Protein 6.7 Albumin 2.3 L Globulin 4.4 H Albumin/Globulin Ratio 0.5 L POC Glucose 04/27/19 04/27/19 04/26/19 11:17 06:26 21:56 POC Glucose 209 H 154 H 333 H 04/26/19 04/26/19 04/26/19 21:55 16:33 11:40 POC Glucose 302 H 183 H 134 H Assessment/Plan All Active Problems (Last Reviewed 04/26/19 @ 02:48 by Jacob Landeros MD) Stroke (Acute) Acute CVA (cerebrovascular accident) (Acute) Discitis of cervical region (Acute) Carotid stenosis, right (Acute) Asthma exacerbation (Acute) Acute bronchitis (Acute) The patient is a 63 year old F with PMH HTN, HLD, DM, history of stroke admitted with left arm tingling and numbness. Per patient yesterday 04/26/2019 around 10 AM she suddenly felt that her left hand was numb, she cannot feel her left hand and also could not move it. It lasted about 45 minutes before the symptoms improved. She denies any speech disturbances, visual disturbances, headache, dizziness and at present denies any focal motor weakness or sensory loss. She denies any left lower extremity numbness or weakness, denies any persistent neck pain low back pain or radicular symptoms. She denies any frequent falls, does not use any cane or walker to ambulate, does not drive and denies any need for assistance for her ADLs. MRI brain done on admission showed small infarct in the right frontoparietal region, CTA head and neck showed high-grade stenosis of the origin of the right ICA and 50 to 60% stenosis in the left ICA, MRI C-spine without contrast showed signal changes within C4 and C5 vertebral as well as the disc possibly representing acute osteomyelitis and discitis, spondylosis and multilevel spinal stenosis most severe at C5-C6 on the right and C6-C7 on the left, MRI C-spine with contrast reported to show enhancement of the vertebral bodies and disc at C4-C5 consistent with acute osteomyelitis and discitis with small focal epidural empyema. [] Impression Acute right MCA (small right frontoparietal stroke)-clear thrombolic High-grade stenosis at right ICA origin and 50 to 60% stenosis of left ICA Acute osteomyelitis C4/C5 Cervical stenosis Plan ?Aspirin 81 mg p.o. once daily and Plavix 75 mg p.o. once daily, if no contraindication. Dual antiplatelet for 3 months, as patient has severe carotid stenosis. Bleeding risk discussed in detail ?Lipitor 80 mg p.o. nightly ?Avoid hypotension ?MRI brain done on admission showed small infarct in the right frontoparietal region, ?CTA head and neck showed high-grade stenosis of the origin of the right ICA and 50 to 60% stenosis in the left ICA, ?MRI C-spine without contrast showed signal changes within C4 and C5 vertebral as well as the disc possibly representing acute osteomyelitis and discitis, spondylosis and multilevel spinal stenosis most severe at C5-C6 on the right and C6-C7 on the left, MRI C-spine with contrast reported to show enhancement of the vertebral bodies and disc at C4-C5 consistent with acute osteomyelitis and discitis with small focal epidural empyema ?TTE?EF 70%, normal left atrial size, PFO negative ?LDL, HbA1c?pending ?Stroke risk factors discussed in detail and stroke education provided ?Patient seen by vascular surgery Dr. Mayer. Patient does need right CEA at ear liest to prevent recurrent stroke ?PT/OT/ST ?GI/DVT prophylaxis ?Spine surgery consult and ID consult. Patient likely being transferred to tertiary care center given the complexity of the medical case ?Fall precautions ?Further medical management per hospitalist team ?Patient counseled to quit smoking ?Follow-up with neurology as outpatient in 3 to 4 weeks ?Please call with questions if any ?Thank you for allowing us to participate in patient's care and management This note was generated using [employer] dictation software. It may contain incorrect words, spellings and punctuation's that were not noted in the review of the note prior to signing. Code Visit Inpatient E&M: 53891 Init Hosp L3
[2019-04-27] MEDS: Clopidogrel Bisulfate 75 MG Tablet PO (11:54)
[2019-04-27 16:06] LABS: Bedside Glucose 165 mg/dL (70-110)
== END 2019-04-27 10:30 | disposition short-term general hospital (02) ==
LOC: ED 23:54 → PCU 04-26 02:42
PROVIDERS: Admitting Provider Hospitalist; Emergency Provider Emergency Medicine; Family Provider Family Medicine; PCP Family Medicine; Visit Provider Internal Medicine
DX: I63.411 Cerebral infarction due to embolism of right middle cerebral artery (principal); M46.42 Discitis, unspecified, cervical region; M46.22 Osteomyelitis of vertebra, cervical region; I10 Essential (primary) hypertension; E11.9 Type 2 diabetes mellitus without complications; R20.0 Anesthesia of skin; R53.1 Weakness; M06.9 Rheumatoid arthritis, unspecified; F17.210 Nicotine dependence, cigarettes, uncomplicated; J20.9 Acute bronchitis, unspecified; I08.3 Combined rheumatic disorders of mitral, aortic and tricuspid valves; Z79.899 Other long term (current) drug therapy; Z79.84 Long term (current) use of oral hypoglycemic drugs; J44.9 Chronic obstructive pulmonary disease, unspecified
CPT/HCPCS: 36415; 70450; 70496; 70498; 70551; 71045; 72141; 72142; 72156; 80048; 80053; 80061; 82962; 83036; 83735; 84484; 85025; 85610; 85652; 85730; 86140; 93005; 93306; 93880; 94640; 94762; 96365; 96366; 96372; 97161; 97166; 97802; 99218; 99285; 99406; A9575; J7040; Q9967; A4216; G0378

== ENCOUNTER 2019-06-03 15:34 | Inpatient (IN) | payer MEDICAID, SELFPAY ==
[2019-04-26 01:35] VITALS: BMI 35.2
[2019-06-03] VITALS (8 sets, daily range): BP systolic 99–141; BP diastolic 65–87; PULSE 102–132; RESP 18–20; TEMP 37.2–38.6; O2SAT 98–100; BMI 29.3; BMI 33.5
--- NOTE | 2019-06-03 17:31 | ED.VISSUMM ---
- ER Visit Summary Date of Service: 06/03/19 Chief Complaint: Itching History of Present Illness: The patient is a 63 F who presents with itching and a rash that began yesterday. Patient states the itching is generalized. Patient states she has been using a new laundry detergent and thinks she may have a reaction to that. Patient denies any other new foods, soaps, shampoos, or fabric softeners. Patient states nothing makes the itching or rash better or worse. Patient is currently living at an extended care facility and is on antibiotics through a PICC line for a chest wall infection. Patient states she has been on the antibiotics for a week but the rash just started yesterday. Physical Examination: Vital signs are stable. Patient is afebrile. Patient is in no acute distress. Skin is warm and dry. There are purpura noted diffusely. There are some excoriations noted. There is no bleeding noted. Oral mucosa is pink and moist. Oropharynx is clear. Airway is patent. Neck is supple. Trachea is midline. There is no JVD noted. Heart was regular rate and rhythm. Lungs are clear and equal bilaterally. Abdomen is soft and nontender. Cranial nerves II through XII are intact. There are no focal motor or sensory deficits noted. Test Results: CBC shows a mild anemia with a hemoglobin of 11.6 and hematocrit 36.8. Basic metabolic profile showed a creatinine of 2.47 and BUN of 23. These were significantly elevated from previous results. Potassium was 5.4. EKG showed sinus rhythm with a rate of 108. There is some mild peaking of the T waves. There are no acute ST changes. Emergency Department Course and Treatment: Patient was given IV fluids here. Patient was given a dose of oral Kayexalate. Case was discussed with the hospitalist. Disposition: Admit for observation Impression: Acute kidney injury This note was generated with [employer] dictation software. It may contain incorrect words, spelling, and punctuation that were not noted in review of the chart prior to signing ED Disposition - Plan for ED Patient: Referrals: Prince Cummins DO [Primary Care Provider] -
[2019-06-03 18:06] LABS: Absolute Lymphocyte Count 1.67 X10^3/uL (0.83-4.51); Absolute Neutrophil Count 4.2 X10^3/uL (2.0-7.7); Basophil# 0.05 X10^3/uL; Basophil% 0.6 % (0-1); Eosinophil# 1.81 X10^3/uL; Eosinophils% 21.4 % (0-5); Hematocrit 36.8 % (37-47); Hemoglobin 11.6 g/dL (12.0-15.0); Lymphocyte # 1.67 X10^3/ul (4.0); Lymphocyte % 19.7 % (19-41); Mean Corp Hgb Conc 31.5 g/dL (32-36); Mean Corpuscular Hgb 28.6 pg (27.0-32.0); Mean Corpuscular Volume 90.6 fL (81-99); Mean Platelet Vol. 9.6 fl (6.2-12.0); Monocyte# 0.53 X10^3/uL; Monocyte% 6.3 % (0-10); NRBC Flagged by Analyzer 0 % (0-5); Neutrophil # 4.22 X10^3/uL (2.7-7.7); Neutrophil % 49.9 % (47-70); POSITIVE MORPHOLOGY YES; Platelet Count 176 K/mm3 (150-450); RBC Distribution Width CV 12.3 % (11.6-14.6); RBC Distribution Width SD 40.4 fl (35.1-43.9); Red Blood Count 4.06 M/mm3 (4.2-5.4); White Blood Count 8.5 K/mm3 (4.4-11.0)
[2019-06-03 18:09] LABS: Differential Indicated SCAN CRITERIA MET
[2019-06-03 18:19] LABS: International Normalized Ratio 1.1; Prothrombin Time (Protime)PT. 14.2 SECONDS (11.7-14.9)
[2019-06-03 18:20] LABS: Partial Thromboplast Time 31.1 Seconds (24.1-36.2)
[2019-06-03 18:23] LABS: ALB/GLOB Ratio 0.5 RATIO (0.9-2.4); AST(SGOT) 102 U/L (15-37); Alanine Aminotransfer ALT/SGPT 93 U/L (13-56); Albumin, Serum 2.6 g/dL (3.2-5.0); Alkaline Phosphatase 206 U/L (45-117); Anion Gap 6 (5-15); BUN 23 mg/dL (7-18); BUN/Creat Ratio 9.3 RATIO (10-20); Calcium,Total 8.4 mg/dL (8.5-10.1); Chloride 105 mmol/L (98-107); Creatinine, Serum 2.47 mg/dL (0.55-1.02); EST Glomerular Filtration Rate 21 mL/min (>60); Est Glom Filt Rate - Afr Amer 26 mL/min (>60); Estimated Creatinine Clearance 20.65 ml/min; Globulin 4.8 g/dL (2.2-4.2); Glucose 103 mg/dL (74-106); Potassium 5.4 mmol/L (3.5-5.1); Protein, Total 7.4 g/dL (6.4-8.2); Sodium Level 134 mmol/L (136-145)
[2019-06-03 19:08] LABS: Anisocytosis RARE; Macrocytosis RARE; Platelet Estimate ADEQUATE (ADEQ); Red Cell Morphology N CHROM NORMAL (NORM C&C)
--- NOTE | 2019-06-03 19:28 | EKG12_ITS ---
Test Reason : DYSRHYTHMIA Blood Pressure : / mmHG Vent. Rate : 108 BPM Atrial Rate : 108 BPM P-R Int : 168 ms QRS Dur : 070 ms QT Int : 328 ms P-R-T Axes : 000 084 016 degrees QTc Int : 439 ms Ectopic atrial tachycardia Septal infarct , age undetermined Abnormal ECG Confirmed by SRIKANTH PIZARRO, RENE ([id number]), desk editor TRIP TORRE ([id number]) on 06/04/2019 1:11:47 PM Referred By: OCTAVIO Confirmed By:JHONY DUKE MD
[2019-06-03] MEDS: 0.9% Normal Saline 1,000 ML 1000 ML IV (20:02)
--- NOTE | 2019-06-03 20:10 | PCM.HP.STD ---
Problem List (1) DRESS syndrome Status: Acute (2) Discitis of cervical region Status: Acute (3) Type II diabetes mellitus Status: Chronic Qualifiers: Diabetes mellitus buttermaker continuous churn insulin use: without buttermaker continuous churn use Diabetes mellitus complication status: without complication Qualified Code(s): E11.9 - Type 2 diabetes mellitus without complications (4) Hypertension Status: Chronic Qualifiers: Hypertension type: essential hypertension Qualified Code(s): I10 - Essential (primary) hypertension History of Present Illness Date of Admission: 06/03/19 Chief Complaint: ITCHY RASH The patient is a 63 year old F with a significant history of diabetes mellitus; hypertension; rheumatoid arthritis who presents from the correction with itchy rash that started about 2 days ago. Also patient reported that she had a fever at the correction. However she does not know what her temperature was. Further she reports chills. Stating that her itchy rash may be due to detergent at the correction. Patient's is on vancomycin and ceftriaxone for osteomyelitis and discitis. Past Medical History Past Medical History (Chronic Problems): Chronic Problems (Last Reviewed 06/04/19 @ 00:44 by Jacob Landeros MD) Elevated liver enzymes (Chronic) Diabetes (Chronic) Rheumatoid arthritis (Chronic) Type II diabetes mellitus (Chronic) Hypertension (Chronic) Medical History: Medical History (Last Reviewed 06/04/19 @ 00:44 by Jacob Landeros MD) Diabetes (Chronic) E11.9 Rheumatoid arthritis (Chronic) M06.9 Asthma J45.909 Chest pain R07.9 H/O: hysterectomy Z98.890, Z90.710 SOB (shortness of breath) R06.02 Stroke I63.9 Hypertension I10 Allergies Penicillins Allergy (Verified 06/03/19 15:36) Swelling oxycodone HCl [From Percocet] Adverse Reaction (Verified 06/03/19 15:36) Itching Home Medications: Ambulatory Orders Medication Instructions Recorded amlodipine 5 mg tablet 5 mg PO DAILY 02/02/19 Aspirin [Aspirin, Baby] 81 mg PO DAILY@0800 tab.chew 04/27/19 Atorvastatin Calcium [Lipitor] 80 mg PO QHS tab 04/27/19 Ipratropium/Albuterol Sulfate 3 ml INHALATION Q6HWA.RT ampul.neb 04/27/19 [Duoneb] Acetaminophen [Tylenol Arthritis] 650 mg PO Q4H PRN PRN 06/03/19 Albuterol Sulfate [Ventolin Hfa] 2 puff INHALATION Q6H PRN PRN 06/03/19 Ceftriaxone [Rocephin] 2 gm IV Q24 06/03/19 Ertugliflozin Pidolate [Steglatro] 15 mg PO QAM 06/03/19 Glipizide 5 mg PO DAILY 06/03/19 Lactobacillus Acidophilus 1 cap PO DAILY 06/03/19 [Acidophilus] Metformin HCl 850 mg PO BID 06/03/19 Metoprolol Tartrate [Lopressor 25 mg PO BID 06/03/19 (Beta Filomena)] Potassium Chloride [Klor-Con M20] 20 meq PO DAILY 06/03/19 Potassium Chloride [Klor-Con M20] 40 meq PO DAILY 06/03/19 Triamcinolone 0.1% Cream [Kenalog] 1 applic TOPICAL BID 06/03/19 Vancomycin IV [Vancomycin] 1,000 mg IV DAILY 06/03/19 busPIRone [Buspar] 10 mg PO BID 06/03/19 Surgical History: Surgical History (Last Reviewed 06/04/19 @ 00:46 by Jacob Landeros MD) History of eye surgery Z98.890 knee scope Bilateral Surgical History: - Psychiatric History: 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 COUNTERPERSON History: No pertinent COUNTERPERSON history Smoking Status: Former smoker Alcohol: None - *Family History Maternal Family History: Family History (Last Reviewed 06/04/19 @ 00:46 by Jacob Landeros MD) Mother Hypertension Emphysema/COPD Sister Hypertension Paternal Family History: Family History (Last Reviewed 06/04/19 @ 00:46 by Jacob Landeros MD) Mother Hypertension Emphysema/COPD Sister Hypertension Review of Systems Constitutional: Reports: Chills, Fever - SUBJECTIVE. Denies: Weight Change HEENT: Denies: Head Aches, Sinus Congestion, Sinus Drainage Cardiovascular: Denies: Chest Pain, Palpitations Respiratory: Denies: Cough, Shortness of breath at rest, Sputum production Gastrointestinal: Denies: Abdominal Pain, Nausea, Vomiting Genitourinary: Reports: Frequency - INCREASED FREQUENCY. Denies: Dysuria Musculoskeletal: Denies: Joint Pain, Joint Tenderness Skin: Reports: Pruritis, Rash. Denies: Wounds Neurological: Denies: Numbness, Tingling, Focal weakness Psychiatric: Denies: Anxiety, Depression, Homicidal Ideations, Suicidal Ideations Hematologic/ Lymphatic: Denies: Easy Bruising, Easy Bleeding VTE Information - Inpt Only VTE Present on Admission: No VTE Mechan Device Prophylaxis: None VTE Pharm Prophylaxis ordered?: Yes Patient Problems: Active and Suspected Problems (Last Reviewed 06/04/19 @ 00:44 by Jacob Landeros MD) DRESS syndrome (Acute) - Physical Exam General: Alert, Oriented x3, Cooperative HEENT: Atraumatic, PERRLA, EOMI, Normocephalic Neck: Supple, No JVD, Negative Carotid Bruits Lungs: Clear to auscultation, Normal air movement, No rhonchi, No wheeze, No rales Cardiovascular: No murmurs, Tachycardic Abdomen: Bowel Sounds Present, Soft, Non Tender Extremities: No edema, Capillary Refill Less than 3 Seconds Skin: No breakdown, - - Diffuse patches Musculoskeletal: No Tenderness to Palpation of Joints or Extremities Neurological: Cranial nerves II-XII grossly intact Psych/Mental Status: Normal Affect, Appropriate Vital Signs Temp Pulse Resp BP Pulse Ox 98.9 F 102 H 18 99/87 H 99 06/03/19 15:36 06/03/19 15:36 06/03/19 17:57 06/03/19 15:36 06/03/19 15:36 Oxygen Delivery Method Room Air Weight: 77.564 kg Body Mass Index (BMI) 29.3 Finger Stick Blood Glucose 159 Laboratory Tests Past 24 Hrs 06/03/19 06/03/19 06/03/19 17:52 17:52 17:52 WBC 8.5 RBC 4.06 L Hgb 11.6 L Hct 36.8 L MCV 90.6 MCH 28.6 MCHC 31.5 L RDW Std Deviation 40.4 RDW Coeff of Dottie 12.3 Plt Count 176 MPV 9.6 Immature Gran % (Auto) 2.100 H Neut % (Auto) 49.9 Lymph % (Auto) 19.7 [place] % (Auto) 6.3 Eos % (Auto) 21.4 H Baso % (Auto) 0.6 Absolute Neuts (auto) 4.2 Absolute Lymphs (auto) 1.67 Nucleated RBC % 0 Diff Path Review May foll Platelet Estimate ADEQUATE RBC Morphology N CHROM Anisocytosis RARE Macrocytosis RARE PT 14.2 INR 1.1 APTT 31.1 Sodium 134 L Potassium 5.4 H Chloride 105 Carbon Dioxide 23.0 Anion Gap 6 BUN 23 H Creatinine 2.47 H Estim Creat Clear Calc 20.65 Est GFR (MDRD) Af Amer 26 L Est GFR (MDRD) Non-Af 21 L BUN/Creatinine Ratio 9.3 L Glucose 103 Calcium 8.4 L Total Bilirubin 0.40 AST 102 H ALT 93 H Alkaline Phosphatase 206 H Total Protein 7.4 Albumin 2.6 L Globulin 4.8 H Albumin/Globulin Ratio 0.5 L Assessment/Plan All Active Problems (Last Reviewed 06/04/19 @ 00:44 by Jacob Landeros MD) DRESS syndrome (Acute) Discitis of cervical region (Acute) The patient is a 63 year old F with a significant history of diabetes mellitus; hypertension; rheumatoid arthritis; who is on vancomycin and ceftriaxone for osteomyelitis and discitis presenting with diffuse pruritic rash and found to have eosinophilia ; acute kidney injury and elevated liver enzymes concerning for probable dress syndrome . Probable dress syndrome Patient noted to have a pruritic rash and on multiple medication include vancomycin and ceftriaxone Patient noted to have AGGIE Patient has history of elevated liver enzymes but her current liver enzyme is more elevated than previous. Noted to have profound eosinophilia of 21.4%. These were elevated above previous. Of note patient has a history of asthma. At this point will provide supportive treatment with IV fluids. Will continue home topical corticosteroid treatment; therapeutic interchange at the Hospital. Per correction records steroid cream was started on 06/02/2019 We will hold off antibiotics of vancomycin and ceftriaxone that patient was taking prior to admission and will consult infectious disease. Cautious use of Tylenol in the setting of elevated liver enzymes. Noted to high Tmax of 101.4 at the alfaro. Tylenol prn for fever. Trend CBC and CMP Check urine; and blood culture peripherally and from PICC line Check stool (loose) for C-DIFF Hold statin because of elevated liver enzymes Other differential diagnoses include allergic contact dermatitis; steroid cream as above. AGGIE On presentation her creatinine was 2.47 Old records shows creatinine baseline less than 1 Received IV hydration in emergency department. Continue maintenance IV infusion. We will obtain ultrasound of kidney and bladder Trend CMP Avoid nephrotoxics. Hyperkalemia Could be from medication side effects. Hold home potassium. Also could be from acute kidney injury. Treat acute kidney injury as above Received Kayexalate in the emergency department. Patient noted to have loose stools x 1 and vomiting while at the alfaro . Miralax originally ordered but discontinued since patient had loose stools. Acute osteomyelitis and discitis involving C4 and C5 cervical spine. Patient was admitted to the hospital on 04/26/2019 and discharged on 04/27/2019 for acute ischemic CVA. At that time he had diagnoses also include acute ostium myelitis and discitis involving C4 and C5 cervical spine. On presentation patient was on vancomycin and ceftriaxone. Her family think that patient has about 1 more week to complete antibiotics since her discharge from the correction is about a time. Per correction records Ceftriaxone was started on 05/15/2019 and it is supposed to end on 06/09/2019. Nursing team to verify Vancomycin end dates by calling retirement. Because of probable dress syndrome would hold off antibiotics at this time. We will consult infectious disease. Diabetes mellitus On presentation her blood glucose was normal. Glucose was 103 putting patient at risk of hypoglycemia. Would hold off home hypoglycemic medication. Accu-Chek QA CHS with correction scale. Calorie controlled diet. HTN Initially appeared to be within goal. Now outside goal Continue home bp meds with parameters Trend bp Asthma Stable Hold off scheduled DuoNeb. PRN albuterol continued. DVT prophylaxis Subcutaneous Lovenox Code Visit Inpatient E&M: 63370 Init Hosp L3
[2019-06-03] MEDS: Sodium Polystyrene Sulfonate 15 GM/60 ML UDC PO (20:14)
--- NOTE | 2019-06-03 21:02 | US_ITS ---
STUDY: RENAL ULTRASOUND - COMPLETE REASON FOR EXAM: Female, 63 years old. Acute kidney injury. TECHNIQUE: Ultrasound evaluation of the kidneys was performed with real-time and static wang-scale imaging. COMPARISON: Renal ultrasound, March 14, 2016. FINDINGS: RIGHT KIDNEY: Normal location of the right kidney, which is normal in size. The right kidney measures 11.5 cm. Mildly increased renal cortical echogenicity. The renal cortex measures 1.6 cm. There is no right renal mass or cyst. There are no right renal calculi. There is no right hydronephrosis. DISTAL RIGHT URETER: There is non-visualization of the distal right ureter. There is no demonstrated right ureterovesical junction calculus. There is no demonstrated right ureteral jet. LEFT KIDNEY: Normal location of the left kidney, which is normal in size. The left kidney measures 10.6 cm. There is increased renal cortical echogenicity. The renal cortex measures 1.9 cm. There is no left renal mass or cyst. There are no left renal calculi. There is no left hydronephrosis. DISTAL LEFT URETER: There is non-visualization of the distal left ureter. There is no demonstrated left ureterovesical junction calculus. There is no demonstrated left ureteral jet. BLADDER: The poorly distended urinary bladder has a volume of 49 ml. There is a normal wall thickness of the distended urinary bladder. There is no demonstrated mass within the urinary bladder. There are no demonstrated bladder calculi. US/Kidney and Bladder IMPRESSION: Increased renal cortical echogenicity consistent with medical renal disease. Electronically Signed: Manohar Greene DO at 22:41 EDT Tel [phone], Service support ,
[2019-06-03] MEDS: 0.9% NaCl Peripheral Flush Adult/Peds IV (22:27)
[2019-06-03] MEDS: 0.9% Normal Saline 1,000 ML 100 ML IV (22:27)
[2019-06-03] MEDS: busPIRone 5 MG Tablet 10 MG PO (23:17)
[2019-06-03] MEDS: Acetaminophen 500 MG Tablet PO (23:18)
[2019-06-03 23:26] LABS: Bedside Glucose 107 mg/dL (70-110)
[2019-06-04] VITALS (13 sets, daily range): BP systolic 137–154; BP diastolic 61–78; PULSE 83–103; RESP 18–20; TEMP 36.8–38; O2SAT 97–99
[2019-06-04] MEDS: Hydrocortisone 2.5% Crm 1 APPLIC TOPICAL ×3 (01:33→22:36)
[2019-06-04] MEDS: 0.9% NaCl Peripheral Flush Adult/Peds IV ×5 (01:45→17:01)
[2019-06-04 05:13] LABS: Absolute Lymphocyte Count 1.41 X10^3/uL (0.83-4.51); Absolute Neutrophil Count 3.4 X10^3/uL (2.0-7.7); Basophil# 0.04 X10^3/uL; Basophil% 0.6 % (0-1); Eosinophil# 1.55 X10^3/uL; Eosinophils% 22.6 % (0-5); Hemoglobin 10.8 g/dL (12.0-15.0); Lymphocyte # 1.41 X10^3/ul (4.0); Lymphocyte % 20.6 % (19-41); Mean Corp Hgb Conc 31.8 g/dL (32-36); Mean Corpuscular Hgb 29.2 pg (27.0-32.0); Mean Corpuscular Volume 91.9 fL (81-99); Mean Platelet Vol. 9.6 fl (6.2-12.0); Monocyte# 0.39 X10^3/uL; Monocyte% 5.7 % (0-10); NRBC Flagged by Analyzer 0 % (0-5); Neutrophil # 3.37 X10^3/uL (2.7-7.7); Neutrophil % 49.2 % (47-70); POSITIVE MORPHOLOGY YES; Platelet Count 161 K/mm3 (150-450); RBC Distribution Width CV 12.5 % (11.6-14.6); White Blood Count 6.9 K/mm3 (4.4-11.0)
[2019-06-04 05:38] LABS: Differential Indicated SCAN CRITERIA MET
[2019-06-04 05:46] LABS: ALB/GLOB Ratio 0.6 RATIO (0.9-2.4); AST(SGOT) 91 U/L (15-37); Alanine Aminotransfer ALT/SGPT 84 U/L (13-56); Albumin, Serum 2.2 g/dL (3.2-5.0); Alkaline Phosphatase 178 U/L (45-117); BUN 25 mg/dL (7-18); BUN/Creat Ratio 10.4 RATIO (10-20); Calcium,Total 7.8 mg/dL (8.5-10.1); EST Glomerular Filtration Rate 22 mL/min (>60); Est Glom Filt Rate - Afr Amer 26 mL/min (>60); Estimated Creatinine Clearance 21.26 ml/min; Glucose 94 mg/dL (74-106); Protein, Total 6.2 g/dL (6.4-8.2); Sodium Level 139 mmol/L (136-145)
[2019-06-04 05:47] LABS: Anion Gap 8 (5-15); Chloride 109 mmol/L (98-107); Potassium 5.3 mmol/L (3.5-5.1)
[2019-06-04 06:05] LABS: Atypical Lymphocyte 2+ %; Differential Comment SCANNED
[2019-06-04 06:56] LABS: Bedside Glucose 86 mg/dL (70-110)
[2019-06-04] MEDS: 0.9% Normal Saline 1,000 ML 100 ML IV (08:08)
[2019-06-04] MEDS: Aspirin 81 MG TAB.CHEW PO (08:10)
[2019-06-04] MEDS: MethylPREDNISolone 125 MG/2 ML Vial 60 MG IV ×3 (08:12→17:01)
--- NOTE | 2019-06-04 08:50 | RAD_ITS ---
STUDY: X-RAY CHEST REASON FOR EXAM: Female, 63 years old. Eosinophilia. TECHNIQUE: Single AP portable view of the chest. COMPARISON: Comparison is made with prior examination of April 26, 2019. FINDINGS: EKG electrodes are seen. Hyperinflation. The lungs are clear. Scattered calcified granulomas. There is no demonstrated pleural abnormality. Normal size heart. Normal mediastinum and gaye. Normal visualized pulmonary arteries. There is atherosclerotic calcification of the aortic arch with tortuosity. Normal visualized thoracic spine. Normal visualized ribs, clavicles, and shoulders. There is no demonstrated abnormality of the visualized soft tissue structures of the upper abdomen. RAD/Chest 1 View (Portable) IMPRESSION: Hyperinflation. No acute infiltrate is seen. Electronically Signed: Tacho Russell, at 14:10 EDT , Service support ,
[2019-06-04] MEDS: amLODIPine 5 MG Tablet PO (10:00)
[2019-06-04] MEDS: Metoprolol Tartrate 25 MG Tablet PO ×2 (10:00→22:36)
[2019-06-04] MEDS: busPIRone 5 MG Tablet 10 MG PO ×2 (10:00→22:34)
[2019-06-04] MEDS: Enoxaparin 30 MG/0.3 ML Syringe SC (10:02)
[2019-06-04 11:21] LABS: Bedside Glucose 144 mg/dL (70-110)
--- NOTE | 2019-06-04 11:44 | PN_ITS ---
<Deng Masterson - Last Filed: 06/04/19 11:44> Patient Problems: Active and Suspected Problems (Last Reviewed 06/04/19 @ 00:44 by Jacob Landeros MD) DRESS syndrome (Acute) Subjective: Pt choking on water and ice with subsequent vomiting on entering room. Pt states overall she feels improved. She primarily had rash on her lower back and anterior thighs BL. She feels this is improving, specifically the rashes were very pruritic. She reports chills, no fever. She denies SOB. She has no diarrhea. She was on vanc and rocephin in the SNF for recent discitic / osteomyeltitis in the cervical spine. She does not know how she got this, does not remember having any issues with her neck, and does not remember how this was found. She denies any current neck pain, weakness, radiculopathy, or decreased ROM. She also was diagnosed with an ischemic stroke at that time. - Physical Exam General: Alert, Oriented x3, Cooperative, - - disheveled HEENT: Atraumatic, PERRLA, EOMI, Normocephalic Neck: Supple, No JVD, Negative Carotid Bruits Lungs: Clear to auscultation, Normal air movement Cardiovascular: Regular rate, No murmurs Abdomen: Bowel Sounds Present, Soft, Non Tender Extremities: No edema, Capillary Refill Less than 3 Seconds Skin: No breakdown, - - diffuse petechial rash with diffuse erythema lower back, proximal legs and arms. Negative nickolsky sign. mild warmth. No tenderness. No open sores. Musculoskeletal: No Tenderness to Palpation of Joints or Extremities Neurological: Cranial nerves II-XII grossly intact Psych/Mental Status: Normal Affect, Appropriate, Alert and oriented to time, place, person, mood and affect Vital Signs Temp Pulse Resp BP Pulse Ox 99.7 F H 89 20 H 154/72 H 98 06/04/19 09:40 06/04/19 11:00 06/04/19 09:40 06/04/19 10:00 06/04/19 09:40 Oxygen Delivery Method Room Air Weight: 195 lb 5.273 oz Body Mass Index (BMI) 33.5 Finger Stick Blood Glucose 159 Intake and Output for Last 24 Hours 06/02/19 06/03/19 06/04/19 23:59 23:59 23:59 Intake Total 1240 / 1240 1688.33 / 1688.33 Output Total 2 / 2 Balance 1240 / 1240 1686.33 / 1686.33 Laboratory Tests Past 24 Hrs 06/03/19 06/03/19 06/03/19 17:52 17:52 17:52 WBC 8.5 RBC 4.06 L Hgb 11.6 L Hct 36.8 L MCV 90.6 MCH 28.6 MCHC 31.5 L RDW Std Deviation 40.4 RDW Coeff of Dottie 12.3 Plt Count 176 MPV 9.6 Immature Gran % (Auto) 2.100 H Neut % (Auto) 49.9 Lymph % (Auto) 19.7 [place] % (Auto) 6.3 Eos % (Auto) 21.4 H Baso % (Auto) 0.6 Absolute Neuts (auto) 4.2 Absolute Lymphs (auto) 1.67 Nucleated RBC % 0 Differential Comment Diff Path Review May foll Atypical Lymphocytes Platelet Estimate ADEQUATE RBC Morphology N CHROM Anisocytosis RARE Macrocytosis RARE PT 14.2 INR 1.1 APTT 31.1 Sodium 134 L Potassium 5.4 H Chloride 105 Carbon Dioxide 23.0 Anion Gap 6 BUN 23 H Creatinine 2.47 H Estim Creat Clear Calc 20.65 Est GFR (MDRD) Af Amer 26 L Est GFR (MDRD) Non-Af 21 L BUN/Creatinine Ratio 9.3 L Glucose 103 Calcium 8.4 L Total Bilirubin 0.40 AST 102 H ALT 93 H Alkaline Phosphatase 206 H Total Protein 7.4 Albumin 2.6 L Globulin 4.8 H Albumin/Globulin Ratio 0.5 L 06/04/19 06/04/19 04:55 04:55 WBC 6.9 RBC 3.70 L Hgb 10.8 L Hct 34.0 L MCV 91.9 MCH 29.2 MCHC 31.8 L RDW Std Deviation 42.0 RDW Coeff of Dottie 12.5 Plt Count 161 MPV 9.6 Immature Gran % (Auto) 1.300 H Neut % (Auto) 49.2 Lymph % (Auto) 20.6 [place] % (Auto) 5.7 Eos % (Auto) 22.6 H Baso % (Auto) 0.6 Absolute Neuts (auto) 3.4 Absolute Lymphs (auto) 1.41 Nucleated RBC % 0 Differential Comment SCANNED Diff Path Review May foll Atypical Lymphocytes 2+ Platelet Estimate RBC Morphology Anisocytosis Macrocytosis PT INR APTT Sodium 139 Potassium 5.3 H Chloride 109 H Carbon Dioxide 22.0 Anion Gap 8 BUN 25 H Creatinine 2.40 H Estim Creat Clear Calc 21.26 Est GFR (MDRD) Af Amer 26 L Est GFR (MDRD) Non-Af 22 L BUN/Creatinine Ratio 10.4 Glucose 94 Calcium 7.8 L Total Bilirubin 0.40 AST 91 H ALT 84 H Alkaline Phosphatase 178 H Total Protein 6.2 L Albumin 2.2 L Globulin 4.0 Albumin/Globulin Ratio 0.6 L POC Glucose 06/04/19 06/04/19 06/03/19 11:10 06:51 23:10 POC Glucose 144 H 86 107 Medical Necessity - Tobacco Use Smoking Status: Former smoker Assessment/Plan All Active Problems (Last Reviewed 06/04/19 @ 00:44 by Jacob Landeros MD) DRESS syndrome (Acute) Discitis of cervical region (Acute) 1. DRESS likely 2/2 IV abx - DCd suspected offending agents (vanc/rocephin). Pt states pruritus improved. No sloughing or open wounds/sores. Continue IV solumedrol. 2. AGGIE - continue IV fluids. nephrotoxic oral agents held. Minimal improvement. Continue to hydrate. Consider nephro eval if no further improvement. 3. Osteomyelitis/Discitis - ID following recommends discontinuation of abx therapy as patient has nearly completed the abx regimen. No neck pain. No fever or leukocytosis. 4. Recent ischemic CVA - continue aspirin. statin held at admission. Unexplained elevated AST/ALT/Alk phos, although she has had elevated AST and ALT in the past. PTOT. ST for episode of choking and vomiting on water/ice this AM. 5. Hyperkalemia - kayex x1 today. 6. DMT2 - SSI. orals held. stable. 7. HTN - mildly elevated 8. Hx RA - not on maintenance meds. DVT ppx: lovenox DC planning: Return to SNF This patient was seen by Deng Masterson PA-C under the supervision of Doctor Brittany. <Tommy Soto - Last Filed: 06/04/19 16:14> Subjective: Still with rash and feels just ill overall. Patient stated that she noted about 2 days ago trigger on her hands. Patient denies ever having had a reaction or rash like this previously. - Physical Exam General: Alert, Cooperative, - HEENT: Atraumatic, Normocephalic, - - No icterus Neck: No Nodes, Thyroid Normal Size and Texture Lungs: Clear to auscultation, Normal air movement, No rhonchi, No wheeze Cardiovascular: Regular rate, Regular Rhythm, Normal S1, Normal S2, No murmurs Abdomen: Bowel Sounds Present, Soft, Non Tender, Non-Distended Extremities: No edema, No Calf Tenderness Skin: - Musculoskeletal: No Tenderness to Palpation of Joints or Extremities, No Muscle Wasting Neurological: - - no clonus Psych/Mental Status: Normal Affect, Appropriate Vital Signs Temp Pulse Resp BP Pulse Ox 37.6 C H 83 20 H 154/72 H 98 06/04/19 09:40 06/04/19 15:00 06/04/19 09:40 06/04/19 10:00 06/04/19 09:40 Oxygen Delivery Method Room Air Weight: 88.6 kg Body Mass Index (BMI) 33.5 Finger Stick Blood Glucose 159 Intake and Output for Last 24 Hours 06/02/19 06/03/19 06/04/19 23:59 23:59 23:59 Intake Total 1240 / 1240 1688.33 / 1688.33 Output Total 2 / 2 Balance 1240 / 1240 1686.33 / 1686.33 Laboratory Tests Past 24 Hrs 06/03/19 06/03/19 06/03/19 17:52 17:52 17:52 WBC 8.5 RBC 4.06 L Hgb 11.6 L Hct 36.8 L MCV 90.6 MCH 28.6 MCHC 31.5 L RDW Std Deviation 40.4 RDW Coeff of Dottie 12.3 Plt Count 176 MPV 9.6 Immature Gran % (Auto) 2.100 H Neut % (Auto) 49.9 Lymph % (Auto) 19.7 [place] % (Auto) 6.3 Eos % (Auto) 21.4 H Baso % (Auto) 0.6 Absolute Neuts (auto) 4.2 Absolute Lymphs (auto) 1.67 Nucleated RBC % 0 Differential Comment Diff Path Review Reviewed Atypical Lymphocytes Platelet Estimate ADEQUATE RBC Morphology N CHROM Anisocytosis RARE Macrocytosis RARE PT 14.2 INR 1.1 APTT 31.1 Sodium 134 L Potassium 5.4 H Chloride 105 Carbon Dioxide 23.0 Anion Gap 6 BUN 23 H Creatinine 2.47 H Estim Creat Clear Calc 20.65 Est GFR (MDRD) Af Amer 26 L Est GFR (MDRD) Non-Af 21 L BUN/Creatinine Ratio 9.3 L Glucose 103 Calcium 8.4 L Total Bilirubin 0.40 AST 102 H ALT 93 H Alkaline Phosphatase 206 H Total Protein 7.4 Albumin 2.6 L Globulin 4.8 H Albumin/Globulin Ratio 0.5 L 06/04/19 06/04/19 04:55 04:55 WBC 6.9 RBC 3.70 L Hgb 10.8 L Hct 34.0 L MCV 91.9 MCH 29.2 MCHC 31.8 L RDW Std Deviation 42.0 RDW Coeff of Dottie 12.5 Plt Count 161 MPV 9.6 Immature Gran % (Auto) 1.300 H Neut % (Auto) 49.2 Lymph % (Auto) 20.6 [place] % (Auto) 5.7 Eos % (Auto) 22.6 H Baso % (Auto) 0.6 Absolute Neuts (auto) 3.4 Absolute Lymphs (auto) 1.41 Nucleated RBC % 0 Differential Comment SCANNED Diff Path Review May foll Atypical Lymphocytes 2+ Platelet Estimate RBC Morphology Anisocytosis Macrocytosis PT INR APTT Sodium 139 Potassium 5.3 H Chloride 109 H Carbon Dioxide 22.0 Anion Gap 8 BUN 25 H Creatinine 2.40 H Estim Creat Clear Calc 21.26 Est GFR (MDRD) Af Amer 26 L Est GFR (MDRD) Non-Af 22 L BUN/Creatinine Ratio 10.4 Glucose 94 Calcium 7.8 L Total Bilirubin 0.40 AST 91 H ALT 84 H Alkaline Phosphatase 178 H Total Protein 6.2 L Albumin 2.2 L Globulin 4.0 Albumin/Globulin Ratio 0.6 L POC Glucose 06/04/19 06/04/19 06/03/19 11:10 06:51 23:10 POC Glucose 144 H 86 107 Assessment/Plan Patient seen and examined independently. Data reviewed. I agree with the above note by the physician executive administrative assistant. 1. DRESS syndrome: * rash, eosinophilia + AGGIE and elevation of LFTs * suspect due to vancomycin, but cannot rule out rocephin * continue to hold antibiotics * reviewed home medications and did not see any obvious culprit * high-dose steroid (methylprednisolone 60 Q6) * patient reported to me that rash began 06/02 2. AGGIE * maybe 2/2 above * IVF * avoid nephrotoxic agents 3. Osteomyelitis/diskitis * seen by ID who d/w her prior ID physician, Dr. Norton, who advised no additional abx at this time. * check MRI Code Visit Inpatient E&M: 35919 Subs Hosp L3
[2019-06-04] MEDS: Sodium Polystyrene Sulfonate 15 GM/60 ML UDC PO (11:52)
--- NOTE | 2019-06-04 12:13 | CON.PCM_ITS ---
Problem List (1) DRESS syndrome Status: Acute Reason for Consult: DRESS Consulted by: Dr. Soto History of Present Illness: The patient is a 63 year old F with recent admit to [facility] in April for stroke and cervical osteo/discitis after presenting with arm weakness to ED here. Discharged to ECF on several weeks of iv vanc/ceftriaxone via picc. Stop date planned for 06/09/19. No issues with picc. For past week, developed fevers, rash, not feeling well. Denies neck pain. No myalgias. Taken to ED, fever to 101.4, high eos, rash. Abx stopped, feeling a little better. Full ROS performed and neg except as noted above. - Medical History Past Medical History (Chronic Problems): Chronic Problems (Last Reviewed 06/04/19 @ 00:44 by Jacob Landeros MD) Elevated liver enzymes (Chronic) Diabetes (Chronic) Rheumatoid arthritis (Chronic) Type II diabetes mellitus (Chronic) Hypertension (Chronic) Allergies/Adverse Reactions: Allergies Penicillins Allergy (Verified 06/03/19 15:36) Swelling oxycodone HCl [From Percocet] Adverse Reaction (Verified 06/03/19 15:36) Itching Home Medications: Ambulatory Orders Medication Instructions Recorded amlodipine 5 mg tablet 5 mg PO DAILY 02/02/19 Aspirin [Aspirin, Baby] 81 mg PO DAILY@0800 tab.chew 04/27/19 Atorvastatin Calcium [Lipitor] 80 mg PO QHS tab 04/27/19 Ipratropium/Albuterol Sulfate 3 ml INHALATION Q6HWA.RT ampul.neb 04/27/19 [Duoneb] Acetaminophen [Tylenol Arthritis] 650 mg PO Q4H PRN PRN 06/03/19 Albuterol Sulfate [Ventolin Hfa] 2 puff INHALATION Q6H PRN PRN 06/03/19 Ceftriaxone [Rocephin] 2 gm IV Q24 06/03/19 Ertugliflozin Pidolate [Steglatro] 15 mg PO QAM 06/03/19 Glipizide 5 mg PO DAILY 06/03/19 Lactobacillus Acidophilus 1 cap PO DAILY 06/03/19 [Acidophilus] Metformin HCl 850 mg PO BID 06/03/19 Metoprolol Tartrate [Lopressor 25 mg PO BID 06/03/19 (Beta Filomena)] Potassium Chloride [Klor-Con M20] 20 meq PO DAILY 06/03/19 Potassium Chloride [Klor-Con M20] 40 meq PO DAILY 06/03/19 Triamcinolone 0.1% Cream [Kenalog] 1 applic TOPICAL BID 06/03/19 Vancomycin IV [Vancomycin] 1,000 mg IV DAILY 06/03/19 busPIRone [Buspar] 10 mg PO BID 06/03/19 - Social History SMOKING STATUS:: Former smoker Vital Signs Temp Pulse Resp BP Pulse Ox 99.7 F H 89 20 H 154/72 H 98 06/04/19 09:40 06/04/19 11:00 06/04/19 09:40 06/04/19 10:00 06/04/19 09:40 Oxygen Delivery Method Room Air Weight: 88.6 kg Body Mass Index (BMI) 33.5 Finger Stick Blood Glucose 159 Laboratory Tests Past 24 Hrs 06/03/19 06/03/19 06/03/19 17:52 17:52 17:52 WBC 8.5 RBC 4.06 L Hgb 11.6 L Hct 36.8 L MCV 90.6 MCH 28.6 MCHC 31.5 L RDW Std Deviation 40.4 RDW Coeff of Dottie 12.3 Plt Count 176 MPV 9.6 Immature Gran % (Auto) 2.100 H Neut % (Auto) 49.9 Lymph % (Auto) 19.7 [place] % (Auto) 6.3 Eos % (Auto) 21.4 H Baso % (Auto) 0.6 Absolute Neuts (auto) 4.2 Absolute Lymphs (auto) 1.67 Nucleated RBC % 0 Differential Comment Diff Path Review May foll Atypical Lymphocytes Platelet Estimate ADEQUATE RBC Morphology N CHROM Anisocytosis RARE Macrocytosis RARE PT 14.2 INR 1.1 APTT 31.1 Sodium 134 L Potassium 5.4 H Chloride 105 Carbon Dioxide 23.0 Anion Gap 6 BUN 23 H Creatinine 2.47 H Estim Creat Clear Calc 20.65 Est GFR (MDRD) Af Amer 26 L Est GFR (MDRD) Non-Af 21 L BUN/Creatinine Ratio 9.3 L Glucose 103 Calcium 8.4 L Total Bilirubin 0.40 AST 102 H ALT 93 H Alkaline Phosphatase 206 H Total Protein 7.4 Albumin 2.6 L Globulin 4.8 H Albumin/Globulin Ratio 0.5 L 06/04/19 06/04/19 04:55 04:55 WBC 6.9 RBC 3.70 L Hgb 10.8 L Hct 34.0 L MCV 91.9 MCH 29.2 MCHC 31.8 L RDW Std Deviation 42.0 RDW Coeff of Dottie 12.5 Plt Count 161 MPV 9.6 Immature Gran % (Auto) 1.300 H Neut % (Auto) 49.2 Lymph % (Auto) 20.6 [place] % (Auto) 5.7 Eos % (Auto) 22.6 H Baso % (Auto) 0.6 Absolute Neuts (auto) 3.4 Absolute Lymphs (auto) 1.41 Nucleated RBC % 0 Differential Comment SCANNED Diff Path Review May foll Atypical Lymphocytes 2+ Platelet Estimate RBC Morphology Anisocytosis Macrocytosis PT INR APTT Sodium 139 Potassium 5.3 H Chloride 109 H Carbon Dioxide 22.0 Anion Gap 8 BUN 25 H Creatinine 2.40 H Estim Creat Clear Calc 21.26 Est GFR (MDRD) Af Amer 26 L Est GFR (MDRD) Non-Af 22 L BUN/Creatinine Ratio 10.4 Glucose 94 Calcium 7.8 L Total Bilirubin 0.40 AST 91 H ALT 84 H Alkaline Phosphatase 178 H Total Protein 6.2 L Albumin 2.2 L Globulin 4.0 Albumin/Globulin Ratio 0.6 L - Other Studies Radiology: [] reviewed Other Studies: [] Route of nutrition/ use of supplements: [] Nutritional Intake: [] IV Site: [] Gudino Catheter: [] - Physical Exam General: Alert, Oriented x3, Cooperative, No apparent distress HEENT: Atraumatic, PERRLA, EOMI Neck: Supple, No Nodes Lungs: Clear to auscultation, Normal air movement Cardiovascular: Regular rate, Regular Rhythm, No murmurs Abdomen: Soft, Non Tender, Non-Distended Extremities: Edema Skin: Rash Present - diffuse petechiae IV Site: PICC Musculoskeletal: No Tenderness to Palpation of Joints or Extremities - no neck pain Neurological: Cranial nerves II-XII grossly intact - Assessment/Plan Antibiotics: [] Assessment/Plan: [] Active and Suspected Problems (Last Reviewed 06/04/19 @ 00:44 by Jacob Landeros MD) 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 Abx being held. Presented with fever, rash, high eos, not feeling well. LFTs are up. Has some CKD. Discussed with her ID physician Dr. Norton. No need to restart abx, will check MRI to see if any residual issues. Will need MRI report sent to [facility] of [facility]. She should followup with him as previously scheduled. Will follow, thank you.
--- NOTE | 2019-06-04 12:34 | MRI_ITS ---
HISTORY: F/U for cervical discitis. Pt is currently in-house with DRESS SYNDROME from IV antbiotics diabetes. Previous stroke. Previous cataract surgery. TECHNIQUE: Routine MRI of the CERVICAL spine was performed without IV Gadolinium. Sixth series. 262 images.. COMPARISON: Most recent comparison MRI of the cervical spine is from April 26, 2019. At that time an MRI of the cervical spine was performed, and then several hours later postcontrast images were obtained sagittally with fat saturation. A CT scan of the cervical spine is from August 09, 2016. FINDINGS: # of images incl. paperwork: 262 Degenerative malalignment is present. C4 is posteriorly subluxed on C5 by 3 mm. C5 is posteriorly subluxed on C6 by 1 mm. Vertebral body height is narrowed at C4 and C5 mostly due to degenerative changes at the C4-C5 intervertebral disc space. Hyperostotic bone is present at that level anteriorly and posteriorly. Prevertebral soft tissues are thickened. Marrow edema is present not only within the C4 and C5 vertebral bodies, but also the spinous process for C3-C4 and C5. The C5 right-sided inferior facet and pars interarticularis also demonstrates edema. There is no significant fluid within the C4-C5 intervertebral disc space. Rule out there is thinning to the cervical cord from the level of the C4-C5 intervertebral disc space down through the C6-C7 disc space. At the C4-C5 level bone and disc material extending posteriorly into the spinal canal displacing CSF ventral to the cord abutting displacing and deforming the cord. There is cord impingement with cord edema. The posterior longitudinal ligament is thickened and possibly calcified posterior to the C5 vertebral body. Spinal canal stenosis is greatest at the C4-C5 interspace, and Continues behind the C5 vertebral body. Almost all of the CSF has been displaced within the spinal canal. The degree of stenosis is similar to the previous study of April 26. MRI/Spine Cervical (Routine) IMPRESSION: No significant change since the previous study of April 26, 2019. Currently, and At that time there was malalignment due to degenerative disc disease at the C4-5 level with posterior subluxation of C4 on C5. This malalignment and degenerative disease contributes to spinal canal stenosis and cord impingement. This disease continues posterior to the C5 vertebral body. The amount of edema within the C4 and C5 vertebral bodies is very similar to the previous study. The amount of prevertebral soft tissue edema is very similar to the previous study. Edema involving the posterior elements and spinous processes is similar to the previous study. These findings are suggestive of osteomyelitis. Although on the current noncontrasted study there is not overt evidence for acute discitis, the osteomyelitis to the abutting vertebral bodies and the degenerative changes at the C4-C5 level are consistent with discitis. The epidural empyema discussed on the post-contrasted previous MR is not identified on the current study, but could be contributing to the disease behind the C5 vertebral body. The absence of contrast decreases the sensitivity for the detection of epidural inflammation. at 2203 Reported and signed by: Ramon Gracia MD Electronically Signed: Rmaon Gracia MD at 22:01 EDT Tel , Service support ,
--- NOTE | 2019-06-04 15:01 | NURSING ---
Talked with Elyssa at Dr. Lawrence's office regarding MRI neck, requesting report be faxed to office at [phone]
[2019-06-04 15:20] LABS: Pathologist Review Reviewed
--- NOTE | 2019-06-04 16:50 | CASEMGMT ---
Patient came to [facility] from [place]. Updates were faxed to [facility] so they can obtain pre-cert. Bekah SAMAYOA MSW
--- NOTE | 2019-06-04 16:51 | CASEMGMT ---
LU received call from Shabana at [facility] and they received approval for patient. LU told her she is not ready today, but maybe over the weekend. SW spoke with patient and she said she is not going back to [facility] and she wants to go home. SW will follow up with patient possibly tomorrow if she is going to be ready for discharge over the weekend. Otherwise SW will follow up on Friday. Plan: If patient is ready over the weekend SW will have to follow up on Friday. Plans were for patient to go back to [facility], however now patient does not want to. Home health will have to be arranged if patient is safe for home. Bekah LOVELL
[2019-06-04 17:10] LABS: Bedside Glucose 275 mg/dL (70-110)
[2019-06-04] MEDS: Insulin Lispro 100 UNIT/ML INSULN.PEN SC ×2 (17:20→22:34)
[2019-06-04 22:34] LABS: Bacteria 0 SEEN /hpf (None Seen); Mucous, Urine 0 SEEN /hpf (<or=2+)
[2019-06-04 22:36] LABS: Color, Urine Yellow (Yellow); Glucose, Dipstick 1000 mg/dl (Normal); Ketone-Dipstick Negative (Negative); Leukocyte Esterase-Dipstick 25 /ul (Negative); Nitrite-Dipstick Negative (Negative); Occult Blood-Urine 25 /ul (Negative); Protein-Dipstick 100 mg/dl (Negative); Urine Bilirubin Dipstick Negative (Negative); Urine Clarity Sl. Cloudy (Clear); Urine Urobilinogen Normal (Normal)
[2019-06-04 22:43] LABS: Amorphous Sediment 1+ URATE; Fine Granular Cast- Urine 0-5 SEEN /lpf (0-5); Hyaline Cast 0-5 SEEN /lpf (0-5); Red Blood Cells-Urine 0-5 SEEN /hpf (0-5); Squamous Epithelial Cells - UA 0-5 SEEN /hpf (5-10); White Blood Cells 0-5 SEEN /hpf (0-5)
[2019-06-04 22:46] LABS: Bedside Glucose 309 mg/dL (70-110)
[2019-06-05] VITALS (11 sets, daily range): BP systolic 139–168; BP diastolic 65–97; PULSE 71–85; RESP 18; TEMP 36.5–36.8; O2SAT 97–100
[2019-06-05] MEDS: 0.9% NaCl Peripheral Flush Adult/Peds IV ×5 (00:25→18:02)
[2019-06-05] MEDS: MethylPREDNISolone 125 MG/2 ML Vial 60 MG IV ×4 (00:25→17:02)
[2019-06-05 05:46] LABS: Absolute Lymphocyte Count 1.73 X10^3/uL (0.83-4.51); Absolute Neutrophil Count 2.1 X10^3/uL (2.0-7.7); Basophil# 0.02 X10^3/uL; Basophil% 0.5 % (0-1); Eosinophil# 0.01 X10^3/uL; Eosinophils% 0.2 % (0-5); Hematocrit 29.6 % (37-47); Hemoglobin 9.6 g/dL (12.0-15.0); Lymphocyte # 1.73 X10^3/ul (4.0); Lymphocyte % 41.7 % (19-41); Mean Corp Hgb Conc 32.4 g/dL (32-36); Mean Corpuscular Hgb 29.2 pg (27.0-32.0); Mean Platelet Vol. 9.7 fl (6.2-12.0); Monocyte# 0.27 X10^3/uL; Monocyte% 6.5 % (0-10); NRBC Flagged by Analyzer 0 % (0-5); Neutrophil % 50.6 % (47-70); POSITIVE MORPHOLOGY YES; Platelet Count 168 K/mm3 (150-450); RBC Distribution Width CV 12.3 % (11.6-14.6); RBC Distribution Width SD 40.5 fl (35.1-43.9); Red Blood Count 3.29 M/mm3 (4.2-5.4); White Blood Count 4.2 K/mm3 (4.4-11.0)
[2019-06-05 05:53] LABS: Differential Indicated SCAN CRITERIA MET
[2019-06-05] MEDS: Insulin Lispro 100 UNIT/ML INSULN.PEN SC ×4 (06:38→21:21)
[2019-06-05 06:39] LABS: ALB/GLOB Ratio 0.6 RATIO (0.9-2.4); AST(SGOT) 43 U/L (15-37); Alanine Aminotransfer ALT/SGPT 71 U/L (13-56); Albumin, Serum 2.2 g/dL (3.2-5.0); Alkaline Phosphatase 155 U/L (45-117); Anion Gap 10 (5-15); BUN 36 mg/dL (7-18); BUN/Creat Ratio 16.6 RATIO (10-20); Calcium,Total 7.8 mg/dL (8.5-10.1); Chloride 106 mmol/L (98-107); Creatinine, Serum 2.17 mg/dL (0.55-1.02); EST Glomerular Filtration Rate 24 mL/min (>60); Est Glom Filt Rate - Afr Amer 30 mL/min (>60); Estimated Creatinine Clearance 23.51 ml/min; Glucose 333 mg/dL (74-106); Potassium 4.3 mmol/L (3.5-5.1); Protein, Total 6.2 g/dL (6.4-8.2); Sodium Level 139 mmol/L (136-145)
[2019-06-05 06:54] LABS: Platelet Estimate ADEQUATE (ADEQ); Red Cell Morphology NORM C+C NORMAL (NORM C&C)
[2019-06-05 06:56] LABS: Smudge Cells 2+
[2019-06-05 07:00] LABS: Atypical Lymphocyte 1+ %
[2019-06-05 07:00] LABS: Bedside Glucose 300 mg/dL (70-110)
[2019-06-05] MEDS: predniSONE 20 MG Tablet 60 MG PO (08:14)
[2019-06-05] MEDS: Aspirin 81 MG TAB.CHEW PO (08:14)
[2019-06-05] MEDS: Hydrocortisone 2.5% Crm 1 APPLIC TOPICAL ×2 (09:06→21:22)
[2019-06-05] MEDS: busPIRone 5 MG Tablet 10 MG PO ×2 (09:06→21:22)
[2019-06-05] MEDS: amLODIPine 5 MG Tablet PO (09:06)
[2019-06-05] MEDS: Enoxaparin 30 MG/0.3 ML Syringe SC (09:06)
[2019-06-05] MEDS: Metoprolol Tartrate 25 MG Tablet PO ×2 (09:06→21:22)
[2019-06-05] MEDS: Acetaminophen 500 MG Tablet PO (09:14)
[2019-06-05] MEDS: Famotidine 20 MG Tablet 40 MG PO (10:33)
[2019-06-05 12:16] LABS: Bedside Glucose 354 mg/dL (70-110)
--- NOTE | 2019-06-05 12:44 | PCM.PROGNOTE ---
<Deng Masterson - Last Filed: 06/05/19 12:44> Patient Problems: Active and Suspected Problems (Last Reviewed 06/04/19 @ 00:44 by Jacob Landeros MD) DRESS syndrome (Acute) Subjective: Patient's rash is worsened. It is more diffuse in both her upper and lower extremities and across her chest and back. She has diffuse erythema with warmth as well as scattered petechia particularly in the appendages. She also notes increased burning in her proximal lower extremities. She has no fevers or chills. She is more alert today and more talkative. She has not choked again and passed her speech eval. She remains weak with difficulty walking but is not interested in owing back to her skilled nursing. - Physical Exam General: Alert, Oriented x3, Cooperative HEENT: Atraumatic, PERRLA, EOMI, Normocephalic Neck: Supple, No JVD, Negative Carotid Bruits Lungs: Clear to auscultation, Normal air movement Cardiovascular: Regular rate, No murmurs Abdomen: Bowel Sounds Present, Soft, Non Tender, Obese Extremities: No edema, Capillary Refill Less than 3 Seconds Skin: No breakdown, Rash Present - diffuse erythematous, warm, rash on chest, back, and extremities, worse on proximal extremities with scattered petetchiae Musculoskeletal: No Tenderness to Palpation of Joints or Extremities Neurological: Cranial nerves II-XII grossly intact Psych/Mental Status: Normal Affect, Appropriate, Alert and oriented to time, place, person, mood and affect Vital Signs Temp Pulse Resp BP Pulse Ox 98.2 F 83 18 150/72 H 97 06/05/19 09:03 06/05/19 09:06 06/05/19 09:03 06/05/19 09:03 06/05/19 09:03 Oxygen Delivery Method Room Air Weight: 195 lb 5.273 oz Body Mass Index (BMI) 33.5 Finger Stick Blood Glucose 159 Intake and Output for Last 24 Hours 06/03/19 06/04/19 06/05/19 23:59 23:59 23:59 Intake Total 1240 / 1240 3568.33 / 3568.33 940 / 940 Output Total 4 / 4 Balance 1240 / 1240 3564.33 / 3564.33 940 / 940 Microbiology Past 72 Hours 06/04/19 22:25 Urine Culture - Preliminary Urine, Clean Catch Gram negative roxanne Laboratory Tests Past 24 Hrs 06/03/19 06/04/19 06/05/19 17:52 22:25 05:30 WBC 4.2 L RBC 3.29 L Hgb 9.6 L Hct 29.6 L MCV 90.0 MCH 29.2 MCHC 32.4 RDW Std Deviation 40.5 RDW Coeff of Dottie 12.3 Plt Count 168 MPV 9.7 Immature Gran % (Auto) 0.500 Neut % (Auto) 50.6 Lymph % (Auto) 41.7 H [place] % (Auto) 6.5 Eos % (Auto) 0.2 Baso % (Auto) 0.5 Absolute Neuts (auto) 2.1 Absolute Lymphs (auto) 1.73 Nucleated RBC % 0 Diff Path Review Reviewed May foll Atypical Lymphocytes 1+ Smudge Cells 2+ Platelet Estimate ADEQUATE RBC Morphology NORM C+C Sodium Potassium Chloride Carbon Dioxide Anion Gap BUN Creatinine Estim Creat Clear Calc Est GFR (MDRD) Af Amer Est GFR (MDRD) Non-Af BUN/Creatinine Ratio Glucose Calcium Total Bilirubin AST ALT Alkaline Phosphatase Total Protein Albumin Globulin Albumin/Globulin Ratio Urine Color Yellow Urine Clarity Sl. Cloudy Urine pH 5.0 Ur Specific [place] 1.020 Urine Protein 100 H Urine Glucose (UA) 1000 H Urine Ketones Negative Urine Occult Blood 25 H Urine Nitrite Negative Urine Bilirubin Negative Urine Urobilinogen Normal Ur Leukocyte Esterase 25 H Urine RBC 0-5 SEEN Urine WBC 0-5 SEEN Ur Squamous Epith Cells 0-5 SEEN Amorphous Sediment 1+ URATE Urine Bacteria 0 SEEN Hyaline Casts 0-5 SEEN Fine Granular Casts 0-5 SEEN Urine Mucus 0 SEEN 06/05/19 05:30 WBC RBC Hgb Hct MCV MCH MCHC RDW Std Deviation RDW Coeff of Dottie Plt Count MPV Immature Gran % (Auto) Neut % (Auto) Lymph % (Auto) [place] % (Auto) Eos % (Auto) Baso % (Auto) Absolute Neuts (auto) Absolute Lymphs (auto) Nucleated RBC % Diff Path Review Atypical Lymphocytes Smudge Cells Platelet Estimate RBC Morphology Sodium 139 Potassium 4.3 Chloride 106 Carbon Dioxide 23.0 Anion Gap 10 BUN 36 H Creatinine 2.17 H Estim Creat Clear Calc 23.51 Est GFR (MDRD) Af Amer 30 L Est GFR (MDRD) Non-Af 24 L BUN/Creatinine Ratio 16.6 Glucose 333 H Calcium 7.8 L Total Bilirubin 0.30 AST 43 H ALT 71 H Alkaline Phosphatase 155 H Total Protein 6.2 L Albumin 2.2 L Globulin 4.0 Albumin/Globulin Ratio 0.6 L Urine Color Urine Clarity Urine pH Ur Specific [place] Urine Protein Urine Glucose (UA) Urine Ketones Urine Occult Blood Urine Nitrite Urine Bilirubin Urine Urobilinogen Ur Leukocyte Esterase Urine RBC Urine WBC Ur Squamous Epith Cells Amorphous Sediment Urine Bacteria Hyaline Casts Fine Granular Casts Urine Mucus POC Glucose 06/05/19 06/05/19 06/04/19 11:59 06:36 22:32 POC Glucose 354 H 300 H 309 H 06/04/19 16:59 POC Glucose 275 H Medical Necessity - Tobacco Use Smoking Status: Former smoker Assessment/Plan All Active Problems (Last Reviewed 06/04/19 @ 00:44 by Jacob Landeros MD) DRESS syndrome (Acute) Discitis of cervical region (Acute) 1. DRESS likely 2/2 IV abx - Eosinophils now normal, however this AM after receiving AM medications her rash worsened with burning in her proximal legs BL. Norvasc discontinued as a possible offending agent. Resume IV solumedrol. No further Abx. Recheck CBC w Diff in AM. 2. AGGIE - continue IV fluids. Improving. Continue IV fluids. Nephrotoxic agents held. 3. Osteomyelitis/Discitis - MRI reported to be similar to the previous study with osteo, however it is also noted the the epidural empyema is no longer present. Abx held per ID. No fever/leukocytosis. She appears Nontoxic. 4. Recent ischemic CVA - continue aspirin. statin held at admission. Unexplained elevated AST/ALT/Alk phos, although she has had elevated AST and ALT in the past. PTOT. ST for episode of choking and vomiting on water/ice this AM. 5. Hyperkalemia - resolved. 6. DMT2 - SSI. orals held. stable. 7. HTN - mildly elevated 8. Hx RA - not on maintenance meds. DVT ppx: lovenox DC planning: Home at [place]. Likely This patient was seen by Deng Masterson PA-C under the supervision of Doctor Brittany. <Tommy Soto - Last Filed: 06/05/19 13:11> Subjective: rash improved, then got worse after receiving her morning meds. No pruritis, but burning sensation. - Physical Exam General: Alert, Cooperative HEENT: Atraumatic, Normocephalic Oral: Moist Mucosa, No Gingival or Mucosal Lesions/ Ulcerations Neck: No Nodes, Thyroid Normal Size and Texture Lungs: Clear to auscultation, Normal air movement, No rhonchi, No wheeze Cardiovascular: Regular rate, No murmurs Abdomen: Bowel Sounds Present, Soft, Non Tender Extremities: No edema, No Calf Tenderness Skin: Rash Present - diffuse erythematous, warm, rash on chest, back, and extremities, worse on proximal extremities with scattered petetchiae. Petechial type rash involving the palmar feet as well as involving distal lower extremities. Diffuse macular erythema on the legs trunk and back. Musculoskeletal: No Tenderness to Palpation of Joints or Extremities Neurological: Cranial nerves II-XII grossly intact Psych/Mental Status: Normal Affect, Appropriate, Alert and oriented to time, place, person, mood and affect Vital Signs Temp Pulse Resp BP Pulse Ox 36.8 C 83 18 150/72 H 97 06/05/19 09:03 06/05/19 09:06 06/05/19 09:03 06/05/19 09:03 06/05/19 09:03 Oxygen Delivery Method Room Air Weight: 88.6 kg Body Mass Index (BMI) 33.5 Finger Stick Blood Glucose 159 Intake and Output for Last 24 Hours 06/03/19 06/04/19 06/05/19 23:59 23:59 23:59 Intake Total 1240 / 1240 3568.33 / 3568.33 940 / 940 Output Total 4 / 4 Balance 1240 / 1240 3564.33 / 3564.33 940 / 940 Microbiology Past 72 Hours 06/04/19 22:25 Urine Culture - Preliminary Urine, Clean Catch Gram negative roxanne Laboratory Tests Past 24 Hrs 06/03/19 06/04/19 06/05/19 17:52 22:25 05:30 WBC 4.2 L RBC 3.29 L Hgb 9.6 L Hct 29.6 L MCV 90.0 MCH 29.2 MCHC 32.4 RDW Std Deviation 40.5 RDW Coeff of Dottie 12.3 Plt Count 168 MPV 9.7 Immature Gran % (Auto) 0.500 Neut % (Auto) 50.6 Lymph % (Auto) 41.7 H [place] % (Auto) 6.5 Eos % (Auto) 0.2 Baso % (Auto) 0.5 Absolute Neuts (auto) 2.1 Absolute Lymphs (auto) 1.73 Nucleated RBC % 0 Diff Path Review Reviewed May foll Atypical Lymphocytes 1+ Smudge Cells 2+ Platelet Estimate ADEQUATE RBC Morphology NORM C+C Sodium Potassium Chloride Carbon Dioxide Anion Gap BUN Creatinine Estim Creat Clear Calc Est GFR (MDRD) Af Amer Est GFR (MDRD) Non-Af BUN/Creatinine Ratio Glucose Calcium Total Bilirubin AST ALT Alkaline Phosphatase Total Protein Albumin Globulin Albumin/Globulin Ratio Urine Color Yellow Urine Clarity Sl. Cloudy Urine pH 5.0 Ur Specific [place] 1.020 Urine Protein 100 H Urine Glucose (UA) 1000 H Urine Ketones Negative Urine Occult Blood 25 H Urine Nitrite Negative Urine Bilirubin Negative Urine Urobilinogen Normal Ur Leukocyte Esterase 25 H Urine RBC 0-5 SEEN Urine WBC 0-5 SEEN Ur Squamous Epith Cells 0-5 SEEN Amorphous Sediment 1+ URATE Urine Bacteria 0 SEEN Hyaline Casts 0-5 SEEN Fine Granular Casts 0-5 SEEN Urine Mucus 0 SEEN 06/05/19 05:30 WBC RBC Hgb Hct MCV MCH MCHC RDW Std Deviation RDW Coeff of Dottie Plt Count MPV Immature Gran % (Auto) Neut % (Auto) Lymph % (Auto) [place] % (Auto) Eos % (Auto) Baso % (Auto) Absolute Neuts (auto) Absolute Lymphs (auto) Nucleated RBC % Diff Path Review Atypical Lymphocytes Smudge Cells Platelet Estimate RBC Morphology Sodium 139 Potassium 4.3 Chloride 106 Carbon Dioxide 23.0 Anion Gap 10 BUN 36 H Creatinine 2.17 H Estim Creat Clear Calc 23.51 Est GFR (MDRD) Af Amer 30 L Est GFR (MDRD) Non-Af 24 L BUN/Creatinine Ratio 16.6 Glucose 333 H Calcium 7.8 L Total Bilirubin 0.30 AST 43 H ALT 71 H Alkaline Phosphatase 155 H Total Protein 6.2 L Albumin 2.2 L Globulin 4.0 Albumin/Globulin Ratio 0.6 L Urine Color Urine Clarity Urine pH Ur Specific [place] Urine Protein Urine Glucose (UA) Urine Ketones Urine Occult Blood Urine Nitrite Urine Bilirubin Urine Urobilinogen Ur Leukocyte Esterase Urine RBC Urine WBC Ur Squamous Epith Cells Amorphous Sediment Urine Bacteria Hyaline Casts Fine Granular Casts Urine Mucus POC Glucose 06/05/19 06/05/19 06/04/19 11:59 06:36 22:32 POC Glucose 354 H 300 H 309 H 06/04/19 16:59 POC Glucose 275 H Assessment/Plan Patient seen and examined independently. Data reviewed. I agree with the above note by the physician volleyball assistant coach. 1. DRESS syndrome: rash, eosinophilia + AGGIE and elevation of LFTs overall better with resolution of eosinophilia, improved AGGIE suspect due to vancomycin, but cannot rule out rocephin, but given acute worsening after receiving AM meds, could be due to amlodipine, which has been held. continue to hold antibiotics reviewed home medications and did not see any obvious culprit high-dose steroid (methylprednisolone 60 Q6) patient reported to me that rash began 06/02 2. AGGIE maybe 2/2 above IVF avoid nephrotoxic agents 3. Osteomyelitis/diskitis seen by ID who d/w her prior ID physician, Dr. Norton, who advised no additional abx at this time. MRI unchanged from 04/26 4. Disposition: patient not medically stable for discharge at this time. She states that she does not want to go back to a SNF, but rather to home. Code Visit Inpatient E&M: 46541 Subs Hosp L3
[2019-06-05 17:01] LABS: Bedside Glucose 404 mg/dL (70-110)
[2019-06-05] MEDS: DiphenhydrAMINE 50 MG/ML Syringe 25 MG IV (18:02)
[2019-06-06] VITALS (11 sets, daily range): BP systolic 142–161; BP diastolic 71–84; PULSE 67–89; RESP 15–18; TEMP 36.4–36.8; O2SAT 95–100
[2019-06-06] MEDS: MethylPREDNISolone 125 MG/2 ML Vial 60 MG IV ×2 (00:05→12:28)
[2019-06-06] MEDS: 0.9% NaCl Peripheral Flush Adult/Peds IV ×9 (00:06→14:35)
[2019-06-06 00:16] LABS: Bedside Glucose 321 mg/dL (70-110)
[2019-06-06] MEDS: DiphenhydrAMINE 50 MG/ML Syringe 25 MG IV ×3 (05:44→21:05)
[2019-06-06 06:05] LABS: Absolute Lymphocyte Count 1.93 X10^3/uL (0.83-4.51); Absolute Neutrophil Count 3.1 X10^3/uL (2.0-7.7); Basophil# 0.01 X10^3/uL; Basophil% 0.2 % (0-1); Hematocrit 29.3 % (37-47); Hemoglobin 9.6 g/dL (12.0-15.0); Lymphocyte # 1.93 X10^3/ul (4.0); Mean Corp Hgb Conc 32.8 g/dL (32-36); Mean Corpuscular Hgb 29.2 pg (27.0-32.0); Mean Corpuscular Volume 89.1 fL (81-99); Mean Platelet Vol. 9.4 fl (6.2-12.0); Monocyte# 0.32 X10^3/uL; NRBC Flagged by Analyzer 0 % (0-5); Neutrophil # 3.06 X10^3/uL (2.7-7.7); Neutrophil % 57.1 % (47-70); POSITIVE MORPHOLOGY YES; Platelet Count 197 K/mm3 (150-450); RBC Distribution Width SD 39.2 fl (35.1-43.9); Red Blood Count 3.29 M/mm3 (4.2-5.4); White Blood Count 5.4 K/mm3 (4.4-11.0)
[2019-06-06 06:53] LABS: Differential Indicated SCAN CRITERIA MET
[2019-06-06 06:55] LABS: Anion Gap 12 (5-15); BUN 46 mg/dL (7-18); BUN/Creat Ratio 21.3 RATIO (10-20); Chloride 105 mmol/L (98-107); Creatinine, Serum 2.16 mg/dL (0.55-1.02); EST Glomerular Filtration Rate 25 mL/min (>60); Est Glom Filt Rate - Afr Amer 30 mL/min (>60); Estimated Creatinine Clearance 23.62 ml/min; Glucose 314 mg/dL (74-106); Potassium 4.2 mmol/L (3.5-5.1); Sodium Level 136 mmol/L (136-145)
[2019-06-06] MEDS: Insulin Lispro 100 UNIT/ML INSULN.PEN SC ×4 (07:05→21:06)
[2019-06-06 07:10] LABS: Bedside Glucose 288 mg/dL (70-110)
[2019-06-06] MEDS: Famotidine 20 MG Tablet 40 MG PO (09:00)
[2019-06-06] MEDS: Enoxaparin 30 MG/0.3 ML Syringe SC (09:01)
[2019-06-06] MEDS: Triamcinolone Ointment 1 APPLIC TUBE 0.5 APPLIC TOPICAL ×3 (10:17→21:06)
--- NOTE | 2019-06-06 12:28 | PN_ITS ---
<Deng Masterson - Last Filed: 06/06/19 12:28> Patient Problems: Active and Suspected Problems (Last Reviewed 06/04/19 @ 00:44 by Jacob Landeros MD) DRESS syndrome (Acute) Subjective: Worsening of rash in the distal arms and legs. Better on the torse. Now with dry skin flaking on the palms and perioral area. Ongoing burning in the proximal legs. No fever/chills. No SOB/cough. - Physical Exam General: Alert, Oriented x3, Cooperative HEENT: Atraumatic, PERRLA, EOMI, Normocephalic Oral: - - perioral dry flaking skin Neck: Supple, No JVD, Negative Carotid Bruits Lungs: Clear to auscultation, Normal air movement Cardiovascular: Regular rate, No murmurs Abdomen: Bowel Sounds Present, Soft, Non Tender Extremities: No edema, Capillary Refill Less than 3 Seconds Skin: No breakdown, Rash Present - erythematous diffuse upper and lower extremity rash. Hands with peeling skin. Petechiae particularly now on the distal extremities. Warm to touch. Musculoskeletal: No Tenderness to Palpation of Joints or Extremities Neurological: Cranial nerves II-XII grossly intact Psych/Mental Status: Normal Affect, Appropriate, Alert and oriented to time, place, person, mood and affect Vital Signs Temp Pulse Resp BP Pulse Ox 97.5 F L 89 16 155/73 H 100 06/06/19 08:30 06/06/19 08:30 06/06/19 08:30 06/06/19 08:30 06/06/19 08:30 Oxygen Delivery Method Room Air Weight: 195 lb 5.273 oz Body Mass Index (BMI) 33.5 Finger Stick Blood Glucose 159 Intake and Output for Last 24 Hours 06/04/19 06/05/19 06/06/19 23:59 23:59 23:59 Intake Total 3568.33 / 3568.33 1390 / 1590 500 / 500 Output Total 4 / 4 Balance 3564.33 / 3564.33 1390 / 1590 500 / 500 Microbiology Past 72 Hours 06/04/19 01:45 Blood Culture - Preliminary Blood Culture (Wb) - Pic No growth in 48 hours. 06/04/19 01:25 Blood Culture - Preliminary Blood Culture (Wb) - Right Hand No growth in 48 hours. 06/04/19 22:25 Urine Culture - Preliminary Urine, Clean Catch Gram negative roxanne Laboratory Tests Past 24 Hrs 06/06/19 06/06/19 05:34 05:34 WBC 5.4 RBC 3.29 L Hgb 9.6 L Hct 29.3 L MCV 89.1 MCH 29.2 MCHC 32.8 RDW Std Deviation 39.2 RDW Coeff of Dottie 12.0 Plt Count 197 MPV 9.4 Immature Gran % (Auto) 0.700 Neut % (Auto) 57.1 Lymph % (Auto) 36.0 [place] % (Auto) 6.0 Eos % (Auto) 0.0 Baso % (Auto) 0.2 Absolute Neuts (auto) 3.1 Absolute Lymphs (auto) 1.93 Nucleated RBC % 0 Sodium 136 Potassium 4.2 Chloride 105 Carbon Dioxide 19.0 L Anion Gap 12 BUN 46 H Creatinine 2.16 H Estim Creat Clear Calc 23.62 Est GFR (MDRD) Af Amer 30 L Est GFR (MDRD) Non-Af 25 L BUN/Creatinine Ratio 21.3 H Glucose 314 H Calcium 8.0 L POC Glucose 06/06/19 06/05/19 06/05/19 07:03 21:21 16:53 POC Glucose 288 H 321 H 404 H Medical Necessity - Tobacco Use Smoking Status: Former smoker Assessment/Plan All Active Problems (Last Reviewed 06/04/19 @ 00:44 by Jacob Landeros MD) DRESS syndrome (Acute) Discitis of cervical region (Acute) 1. DRESS likely 2/2 IV abx - Eosinophils now normal, however rash is worse and she now has peeling/flaking skin perioral and palms. All home meds discontinued. Continue solumedrol. High dose topical steroids. 2. AGGIE - continue IV fluids. Improving. 3. Osteomyelitis/Discitis - MRI reported to be similar to the previous study with osteo, however it is also noted the the epidural empyema is no longer present. Abx held per ID. No fever/leukocytosis. She appears Nontoxic. 4. Recent ischemic CVA - continue aspirin. statin held at admission with abnormal LFTs 5. Abnormal LFTs - prior hx of this. Trend - recheck in AM as her rash is worse. Current episode possibly 2/2 systemic effects of DRESS. 6. Hyperkalemia - resolved. 7. DMT2 - SSI. orals held. stable. 8. HTN - mildly elevated 9. Hx RA - not on maintenance meds. DVT ppx: lovenox DC planning: Home at DC. Likely home pt/ot. This patient was seen by Deng Masterson PA-C under the supervision of Doctor Brittany. <Tommy Soto - Last Filed: 06/06/19 13:19> Subjective: States rash is worse. No shortness of breath. No trouble swallowing. - Physical Exam General: Alert, Cooperative HEENT: Atraumatic, Normocephalic Oral: - Lungs: Clear to auscultation, Normal air movement, No rhonchi, No wheeze Cardiovascular: Regular rate, Regular Rhythm, Normal S1 Abdomen: Bowel Sounds Present, Soft, Non Tender, Non-Distended Extremities: No edema, No Calf Tenderness Skin: No breakdown, Rash Present Musculoskeletal: No Tenderness to Palpation of Joints or Extremities Psych/Mental Status: Normal Affect, Appropriate Vital Signs Temp Pulse Resp BP Pulse Ox 36.4 C L 89 16 155/73 H 100 06/06/19 08:30 06/06/19 08:30 06/06/19 08:30 06/06/19 08:30 06/06/19 08:30 Oxygen Delivery Method Room Air Weight: 88.6 kg Body Mass Index (BMI) 33.5 Finger Stick Blood Glucose 159 Intake and Output for Last 24 Hours 06/04/19 06/05/19 06/06/19 23:59 23:59 23:59 Intake Total 3568.33 / 3568.33 1390 / 1590 500 / 500 Output Total 4 / 4 Balance 3564.33 / 3564.33 1390 / 1590 500 / 500 Microbiology Past 72 Hours 06/04/19 01:45 Blood Culture - Preliminary Blood Culture (Wb) - Pic No growth in 48 hours. 06/04/19 01:25 Blood Culture - Preliminary Blood Culture (Wb) - Right Hand No growth in 48 hours. 06/04/19 22:25 Urine Culture - Preliminary Urine, Clean Catch Gram negative roxanne Laboratory Tests Past 24 Hrs 06/06/19 06/06/19 05:34 05:34 WBC 5.4 RBC 3.29 L Hgb 9.6 L Hct 29.3 L MCV 89.1 MCH 29.2 MCHC 32.8 RDW Std Deviation 39.2 RDW Coeff of Dottie 12.0 Plt Count 197 MPV 9.4 Immature Gran % (Auto) 0.700 Neut % (Auto) 57.1 Lymph % (Auto) 36.0 Divide % (Auto) 6.0 Eos % (Auto) 0.0 Baso % (Auto) 0.2 Absolute Neuts (auto) 3.1 Absolute Lymphs (auto) 1.93 Nucleated RBC % 0 Sodium 136 Potassium 4.2 Chloride 105 Carbon Dioxide 19.0 L Anion Gap 12 BUN 46 H Creatinine 2.16 H Estim Creat Clear Calc 23.62 Est GFR (MDRD) Af Amer 30 L Est GFR (MDRD) Non-Af 25 L BUN/Creatinine Ratio 21.3 H Glucose 314 H Calcium 8.0 L POC Glucose 06/06/19 06/05/19 06/05/19 07:03 21:21 16:53 POC Glucose 288 H 321 H 404 H Assessment/Plan Patient seen and examined independently. Data reviewed. I agree with the above note by the physician assistant spa manager. 1. DRESS syndrome: * rash, eosinophilia + AGGIE and elevation of LFTs * overall better with resolution of eosinophilia, improved AGGIE * suspect due to vancomycin, but cannot rule out rocephin, amlodipine or buspar. All have been held, but favoring antibiotics (particularly vanc) as the culprit. * high-dose steroid (methylprednisolone 60 Q6 systemic, and topical) * patient reported to me that rash began 06/02 * rash has intensified, however, peripheral eosinophilia has completely resolve. * Per UpToDate: average time of recovery is 6-9 weeks, relapse can be expected during this time. * check for viral etiologies: EBV, CMV, (HHV not performed here) * No mucosal involvement, so doubtful SJS/TEN * Lack of evidence to support IVIG * consult: general surgery for skin biopsy to r/o other process 2. AGGIE * improved, though not at baseline. Creatinine was 0.87 on 04/27/19. * maybe 2/2 above * avoid nephrotoxic agents * proteinuria on UA * check urine eosinophils * consider nephrology consult 3. Abnormal LFTs * slight elevation maybe due to DRESS * r/o acute viral hepatitis 4. Osteomyelitis/diskitis * seen by ID who d/w her prior ID physician, Dr. Norton, who advised no additional abx at this time. * MRI unchanged from 04/26 5. Disposition: patient not medically stable for discharge at this time. She states that she does not want to go back to a SNF, but rather to home. Code Visit Inpatient E&M: 49524 Subs Hosp L3
[2019-06-06 12:45] LABS: Bedside Glucose 372 mg/dL (70-110)
[2019-06-06 15:35] LABS: Free T3 1.4 pg/mL (2.18-3.98); T4 Free Direct 1.62 ng/dL (0.76-1.46)
[2019-06-06 17:25] LABS: Bedside Glucose 269 mg/dL (70-110)
[2019-06-06 22:41] LABS: Bedside Glucose 409 mg/dL (70-110)
--- NOTE | 2019-06-07 | LES_PTH ---
PATIENT: NATALI KINSEY LOC: [facility] U#:[id number] AGE/SX: 63/F ROOM: [facility] RE06/03/[address]: Dr. Nayla Story MD : 1955 BED: 1 DIS: 06/07/2019 SPEC #: [id number] RECD: 06/07/19 14:20 STATUS: MAHESH RETavo #: [id number] TASHA: 06/07/19 00:[address]: Alfonzo Barillas DEPT: SURGICAL PATHOLOGY RECD BY: Dalton Acuña ENTERED: 06/07/19 14:20 SP TYPE: Lesion OTHR DR: MD Dr. Prince Linda DO Dr. Joseph Agyepong, MD Dr. Nana Yaa Koram, MD Dr. Robert Leininger, MD Tissues: Skin of leg, NOS Procedures: Surgery Specimen Level IV Comments: @ Ordering doctor for BUTCH edited from to @ by GAVIN at 06/07/19 1438 @ Submitting doctor edited from to @ by RGOOD at 06/07/19 1438 HEADER OPERATION: Right leg skin biopsy PRE-OP DIAGNOSIS: Skin rash TISSUE SUBMITTED: Right thigh skin biopsy MICROSCOPIC DIAGNOSIS Skin lesion of right thigh, biopsy: Atypical verrucoid keratosis. See comment. AM:joseph 06/08/19 COMMENT Immunohistochemistry ([id number]) supports the above diagnosis. Case has been reviewed in consultation with Dr. De Jesus who concurs with the above diagnosis. BRUCE:BUDDY MICROSCOPIC DESCRIPTION Slides are reviewed. GROSS DESCRIPTION Received in fixative is one container labeled with the patient's name and designated skin biopsy, thigh. The specimen consists of two pieces of cullen-brown skin measuring 0.3 x 0.5 x 0.2 cm and 0.5 x 0.2 x 0.1 cm. The entire specimen is submitted in one cassette. / BUDDY:joseph 06/07/19 TC:? CPT: 94359
--- NOTE | 2019-06-07 | IMM_PTH ---
PATIENT: NATALI KINSEY LOC: [facility] U#:[id number] AGE/SX: 63/F ROOM: [facility] RE06/03/[address]: Dr. Nayla Story MD : 1955 BED: 1 DIS: 06/07/2019 SPEC #: [id number] RECD: 06/08/19 12:53 STATUS: MAHESH REQ #: [id number] TASHA: 06/07/19 00:[address]: Alfonzo Barillas DEPT: IMMUNOHISTOCHEMISTRY RECD BY: Venita Peralta ENTERED: 06/08/19 12:55 SP TYPE: IMMUNO OTHR DR: DO Dr. Jacob Stratton MD Dr. Nana Yaa Koram, MD Dr. Robert Leininger, MD Tissues: Skin of leg, NOS Procedures: CK14 (add) CK5-6 (add) MACRO (add) Pankeratin (initial) MELAN-A (add) P40 (add) S-100 (add) PHYSICIAN & [place] [id number] SPECIMEN INFORMATION: Tissue Source: Skin of right thigh, biopsy Clinical Info: Skin rash Specimen Number: [id number] CPT code: 37529, 11655 x6 METHODOLOGY: Deparaffinized sections of prefer/formalin-fixed tissue or PAP/DQ stained slides are incubated with monoclonal/polyclonal antibodies/oligonucleotide probes. Localization is made via biotin free immunoperoxidase method. Appropriate controls are performed and reacted as expected. Results on target cell population are indicated in the following table: RESULTS: ANTIBODY / CLONE RESULT AE1-3 (AE1/AE3/PCK26) positive Macro (HAM-56) positive Melan A (A103) negative S-100 (4C4.9) negative CK5-6 (D5 & 1684) positive CK14 (LL002) positive P40 (BC28) positive These tests were developed and their performance characteristics determined by [facility]. They may not have been cleared or approved by the U.S. Food and Drug Administration. The FDA has determined that such clearance or approval is not necessary. INTERPRETATION: Skin of right thigh, biopsy: Consistent with verrucoid keratosis with mild atypia. AM:joseph 06/09/19 Case has been reviewed in consultation with Dr. De Jesus who concurs with the above diagnosis. IDC:BUDDY
[2019-06-07] MEDS: 0.9% NaCl Peripheral Flush Adult/Peds IV ×3 (02:40→08:44)
[2019-06-07] MEDS: DiphenhydrAMINE 50 MG/ML Syringe 25 MG IV ×3 (02:40→15:10)
[2019-06-07 03:00] VITALS: BP 166/84; PULSE 66; RESP 18; TEMP 36.6; O2SAT 95
[2019-06-07 03:06] VITALS: PULSE 75
[2019-06-07] MEDS: Triamcinolone Ointment 1 APPLIC TUBE 0.5 APPLIC TOPICAL ×2 (06:37→15:10)
[2019-06-07] MEDS: Insulin Lispro 100 UNIT/ML INSULN.PEN SC ×3 (06:37→17:18)
[2019-06-07 06:43] LABS: Absolute Lymphocyte Count 2.49 X10^3/uL (0.83-4.51); Absolute Neutrophil Count 2.5 X10^3/uL (2.0-7.7); Basophil# 0.02 X10^3/uL; Basophil% 0.3 % (0-1); Hematocrit 27.3 % (37-47); Lymphocyte # 2.49 X10^3/ul (4.0); Lymphocyte % 43.3 % (19-41); Mean Corpuscular Hgb 29.1 pg (27.0-32.0); Mean Corpuscular Volume 88.3 fL (81-99); Mean Platelet Vol. 9.1 fl (6.2-12.0); Monocyte# 0.75 X10^3/uL; NRBC Flagged by Analyzer 0 % (0-5); Neutrophil # 2.46 X10^3/uL (2.7-7.7); Neutrophil % 42.9 % (47-70); POSITIVE MORPHOLOGY YES; Platelet Count 193 K/mm3 (150-450); RBC Distribution Width CV 12.1 % (11.6-14.6); RBC Distribution Width SD 38.7 fl (35.1-43.9); Red Blood Count 3.09 M/mm3 (4.2-5.4); White Blood Count 5.8 K/mm3 (4.4-11.0)
[2019-06-07 06:47] LABS: Differential Indicated SCAN CRITERIA MET
[2019-06-07 06:55] LABS: Bedside Glucose 236 mg/dL (70-110)
[2019-06-07 07:09] LABS: ALB/GLOB Ratio 0.6 RATIO (0.9-2.4); AST(SGOT) 26 U/L (15-37); Alanine Aminotransfer ALT/SGPT 64 U/L (13-56); Albumin, Serum 2.4 g/dL (3.2-5.0); Alkaline Phosphatase 126 U/L (45-117); Anion Gap 6 (5-15); BUN 51 mg/dL (7-18); Calcium,Total 8.2 mg/dL (8.5-10.1); Chloride 111 mmol/L (98-107); Creatinine, Serum 1.82 mg/dL (0.55-1.02); EST Glomerular Filtration Rate 30 mL/min (>60); Est Glom Filt Rate - Afr Amer 36 mL/min (>60); Estimated Creatinine Clearance 28.03 ml/min; Globulin 3.9 g/dL (2.2-4.2); Glucose 227 mg/dL (74-106); Potassium 4.3 mmol/L (3.5-5.1); Protein, Total 6.3 g/dL (6.4-8.2); Sodium Level 139 mmol/L (136-145)
[2019-06-07 07:17] VITALS: PULSE 85
[2019-06-07 07:32] LABS: Differential Comment SCANNED; Hypochromasia 3+; Microcytosis 2+
--- NOTE | 2019-06-07 07:57 | CON.PCM_ITS ---
Problem List (1) DRESS syndrome Status: Acute Reason for Consult Date of Consultation: 06/07/19 History of Present Illness: The patient is a 63 year old F with diffuse rash. The patient reports that her most painful rashes on the proximal thighs. She is on long-term IV antibiotics and this is believed to be due to those. I was consulted to perform skin biopsy. Past Medical History Past Medical History (Chronic Problems): Chronic Problems (Last Reviewed 06/04/19 @ 00:44 by Jacob Landeros MD) Elevated liver enzymes (Chronic) Diabetes (Chronic) Rheumatoid arthritis (Chronic) Type II diabetes mellitus (Chronic) Hypertension (Chronic) Medical History: Medical History (Last Reviewed 06/04/19 @ 00:44 by Jacob Landeros MD) Diabetes (Chronic) E11.9 Rheumatoid arthritis (Chronic) M06.9 Asthma J45.909 Chest pain R07.9 H/O: hysterectomy Z98.890, Z90.710 SOB (shortness of breath) R06.02 Stroke I63.9 Hypertension I10 Allergies ceftriaxone Allergy (Severe, Verified 06/04/19 16:15) Rash vancomycin Allergy (Severe, Verified 06/04/19 16:15) Rash Penicillins Allergy (Verified 06/03/19 15:36) Swelling oxycodone HCl [From Percocet] Adverse Reaction (Verified 06/03/19 15:36) Itching Home Medications: Ambulatory Orders Medication Instructions Recorded amlodipine 5 mg tablet 5 mg PO DAILY 02/02/19 Aspirin [Aspirin, Baby] 81 mg PO DAILY@0800 tab.chew 04/27/19 Atorvastatin Calcium [Lipitor] 80 mg PO QHS tab 04/27/19 Ipratropium/Albuterol Sulfate 3 ml INHALATION Q6HWA.RT ampul.neb 04/27/19 [Duoneb] Acetaminophen [Tylenol Arthritis] 650 mg PO Q4H PRN PRN 06/03/19 Albuterol Sulfate [Ventolin Hfa] 2 puff INHALATION Q6H PRN PRN 06/03/19 Ceftriaxone [Rocephin] 2 gm IV Q24 06/03/19 Ertugliflozin Pidolate [Steglatro] 15 mg PO QAM 06/03/19 Glipizide 5 mg PO DAILY 06/03/19 Lactobacillus Acidophilus 1 cap PO DAILY 06/03/19 [Acidophilus] Metformin HCl 850 mg PO BID 06/03/19 Metoprolol Tartrate [Lopressor 25 mg PO BID 06/03/19 (Beta Filomena)] Potassium Chloride [Klor-Con M20] 20 meq PO DAILY 06/03/19 Potassium Chloride [Klor-Con M20] 40 meq PO DAILY 06/03/19 Triamcinolone 0.1% Cream [Kenalog] 1 applic TOPICAL BID 06/03/19 Vancomycin IV [Vancomycin] 1,000 mg IV DAILY 06/03/19 busPIRone [Buspar] 10 mg PO BID 06/03/19 Surgical History: Surgical History (Last Reviewed 06/04/19 @ 00:46 by Jacob Landeros MD) History of eye surgery Z98.890 knee scope Bilateral Surgical History: - Psychiatric History: 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 Smoking Status: Former smoker Alcohol: None - *Family History Maternal Family History: Family History (Last Reviewed 06/04/19 @ 00:46 by Jacob Landeros MD) Mother Hypertension Emphysema/COPD Sister Hypertension History Items: No pertinent history Paternal Family History: Family History (Last Reviewed 06/04/19 @ 00:46 by Jacob Landeros MD) Mother Hypertension Emphysema/COPD Sister Hypertension History Items: No pertinent history Review of Systems Constitutional: Denies: Anorexia, Fever HEENT: Denies: Difficulty Swallowing Respiratory: Denies: Cough Gastrointestinal: Denies: Abdominal Pain Skin: Reports: Dryness, Rash Psychiatric: Denies: Anxiety Patient Problems: Active and Suspected Problems (Last Reviewed 06/04/19 @ 00:44 by Jacob Landeros MD) DRESS syndrome (Acute) - Physical Exam General: Alert, Oriented x3 Oral: Moist Mucosa Neck: No JVD Lungs: Normal air movement Cardiovascular: Regular rate, Regular Rhythm Abdomen: Soft, Non Tender, Non-Distended Skin: Rash Present Vital Signs Temp Pulse Resp BP Pulse Ox 97.8 F 75 18 166/84 H 95 06/07/19 03:00 06/07/19 03:06 06/07/19 03:00 06/07/19 03:00 06/07/19 03:00 Oxygen Delivery Method Room Air Weight: 195 lb 5.273 oz Body Mass Index (BMI) 33.5 Finger Stick Blood Glucose 159 Intake and Output for Last 24 Hours 06/05/19 06/06/19 06/07/19 23:59 23:59 23:59 Intake Total 1390 / 1590 1470 / 1670 200 / 200 Balance 1390 / 1590 1470 / 1670 200 / 200 Microbiology Past 72 Hours 06/04/19 01:45 Blood Culture - Preliminary Blood Culture (Wb) - Pic No growth in 48 hours. 06/04/19 01:25 Blood Culture - Preliminary Blood Culture (Wb) - Right Hand No growth in 48 hours. 06/04/19 22:25 Urine Culture - Preliminary Urine, Clean Catch Gram negative roxanne Laboratory Tests Past 24 Hrs 06/06/19 06/06/19 06/06/19 05:34 05:34 14:25 WBC RBC Hgb Hct MCV MCH MCHC RDW Std Deviation RDW Coeff of Dottie Plt Count MPV Immature Gran % (Auto) Neut % (Auto) Lymph % (Auto) [place] % (Auto) Eos % (Auto) Baso % (Auto) Absolute Neuts (auto) Absolute Lymphs (auto) Nucleated RBC % Differential Comment Hypochromasia Microcytosis Eos Smear Total Cells Pending Sodium Potassium Chloride Carbon Dioxide Anion Gap BUN Creatinine Estim Creat Clear Calc Est GFR (MDRD) Af Amer Est GFR (MDRD) Non-Af BUN/Creatinine Ratio Glucose Calcium Total Bilirubin AST ALT Alkaline Phosphatase Total Protein Albumin Globulin Albumin/Globulin Ratio TSH 0.10 L Free T4 1.62 H Free T3 pg/dL 1.4 L CMV IgM Ab Pending EBV Capsid Ag IgM Ab Pending Hepatitis A IgM Ab Pending Hep Bs Antigen Pending Hep B Core IgM Ab Pending Hepatitis C Ab (EIA) Pending 06/07/19 06/07/19 06:30 06:30 WBC 5.8 RBC 3.09 L Hgb 9.0 L Hct 27.3 L MCV 88.3 MCH 29.1 MCHC 33.0 RDW Std Deviation 38.7 RDW Coeff of Dottie 12.1 Plt Count 193 MPV 9.1 Immature Gran % (Auto) 0.500 Neut % (Auto) 42.9 L Lymph % (Auto) 43.3 H [place] % (Auto) 13.0 H Eos % (Auto) 0.0 Baso % (Auto) 0.3 Absolute Neuts (auto) 2.5 Absolute Lymphs (auto) 2.49 Nucleated RBC % 0 Differential Comment SCANNED Hypochromasia 3+ Microcytosis 2+ Eos Smear Total Cells Sodium 139 Potassium 4.3 Chloride 111 H Carbon Dioxide 22.0 Anion Gap 6 BUN 51 H Creatinine 1.82 H Estim Creat Clear Calc 28.03 Est GFR (MDRD) Af Amer 36 L Est GFR (MDRD) Non-Af 30 L BUN/Creatinine Ratio 28.0 H Glucose 227 H Calcium 8.2 L Total Bilirubin 0.30 AST 26 ALT 64 H Alkaline Phosphatase 126 H Total Protein 6.3 L Albumin 2.4 L Globulin 3.9 Albumin/Globulin Ratio 0.6 L TSH Free T4 Free T3 pg/dL CMV IgM Ab EBV Capsid Ag IgM Ab Hepatitis A IgM Ab Hep Bs Antigen Hep B Core IgM Ab Hepatitis C Ab (EIA) POC Glucose 06/07/19 06/06/19 06/06/19 06:36 21:05 16:24 POC Glucose 236 H 409 H 269 H 06/06/19 12:21 POC Glucose 372 H Assessment/Plan All Active Problems (Last Reviewed 06/04/19 @ 00:44 by Jacob Landeros MD) DRESS syndrome (Acute) Discitis of cervical region (Acute) 63-year-old female with skin rash 1. I was consulted to obtain skin biopsy to rule out other etiologies for the skin rash. I described skin biopsy to the patient in detail. The patient understands the risks of bleeding and infection and is willing to proceed. Alfonzo Barillas MD Pager: [facility] [address] [place] [address], [address] [place] [address] Office:
[2019-06-07 08:21] VITALS: BP 175/85; PULSE 93; RESP 16; TEMP 36.4; O2SAT 100
[2019-06-07] MEDS: Enoxaparin 30 MG/0.3 ML Syringe SC (08:40)
[2019-06-07] MEDS: Famotidine 20 MG Tablet 40 MG PO (08:40)
--- NOTE | 2019-06-07 10:41 | DCINST_ITS ---
- Discharge Diagnoses Current Active Problems: Current Active and Chronic Problems (Last Reviewed 06/04/19 @ 00:44 by Jacob Landeros MD) DRESS syndrome (Acute) You will use the following diet at home:: Calorie/Carbohydrate Controlled (specify 1200, 1400, etc) - 1800 mikel / day, Cardiac - 2500 mg sodium daily, Other Your food should be the consistency of: Mechanical soft (ground) Your liquids should be the consistency of: Regular/Thin Discharge Activity: Return to Normal Activity Allergies/Adverse Reactions: Allergies ceftriaxone Allergy (Severe, Verified 06/04/19 16:15) Rash vancomycin Allergy (Severe, Verified 06/04/19 16:15) Rash Penicillins Allergy (Verified 06/03/19 15:36) Swelling oxycodone HCl [From Percocet] Adverse Reaction (Verified 06/03/19 15:36) Itching Medications to take at Discharge amlodipine 5 mg tablet 5 mg PO DAILY 02/02/19 Aspirin [Aspirin, Baby] 81 mg PO DAILY@0800 tab.chew 04/27/19 Ipratropium/Albuterol Sulfate [Duoneb] 3 ml INHALATION Q6HWA.RT ampul.neb 04/27/19 Albuterol Sulfate [Ventolin Hfa] 2 puff INHALATION Q6H PRN PRN 06/03/19 Acetaminophen [Tylenol] 500 mg PO Q8H PRN PRN tablet 06/07/19 DiphenhydrAMINE [Benadryl] 25 mg PO TID #90 cap 06/07/19 Famotidine [Pepcid] 40 mg PO DAILY #60 tab 06/07/19 Insulin Glargine,Hum.rec.anlog [Lantus] 100 unit SQ 17 #1 pen 06/07/19 Prednisone 60 mg PO DAILY #42 tab 06/07/19 Triamcinolone 0.5% Cream [Triamcinolone Acetonide] 1 applic TOPICAL BID #1 tube 06/07/19 The following prescriptions were given: DiphenhydrAMINE [Benadryl] 25 mg PO TID #90 cap Transmission Status: Pending to [facility] Triamcinolone 0.5% Cream [Triamcinolone Acetonide] 1 applic TOPICAL BID #1 tube Transmission Status: Pending to [facility] Insulin Glargine,Hum.rec.anlog [Lantus] 100 unit SQ 17 #1 pen Transmission Status: Pending to [facility] Famotidine [Pepcid] 40 mg PO DAILY #60 tab Transmission Status: Pending to [facility] Prednisone 60 mg PO DAILY #42 tab Transmission Status: Pending to [facility] Please follow up with your Primary Care Physician in: 1 week Test Results: Test results from this visit will be discussed in further detail at your follow- up appointment, if applicable. Please Follow Up With: Peggy Cat - Dermatology When: 1 week Please Follow Up With: Alfonzo Barillas MD - Surgeon When: 1-2 weeks Proposed Discharge Date: 06/07/19
--- NOTE | 2019-06-07 10:51 | CASEMGMT ---
Social Work Per Hawa Johnson RN CM, Pt choosing to return home with home health services and refusing to return to [facility]. Phone call to [place] and informed that pt will not be returning at this time. ALBERT Katz
[2019-06-07 11:01] VITALS: PULSE 89
[2019-06-07 11:21] LABS: Bedside Glucose 228 mg/dL (70-110)
--- NOTE | 2019-06-07 11:28 | CASEMGMT ---
Addendum entered by Hawa Loya 06/07/19 14:19: Pt also states that son lives with her and will be with her 07/04 once home. Abdelrahman JORDAN CM Original Note: This RN CM to room to discuss discharge plan with pt at this time. Pt states she is not going back to [place] but would like to go home with home health care at this time. Pt was provided with list of in-network C agencies at this time. Pt states has had [facility] in the past and would like to use them but they no longer take [facility] community plan at this time, per Marilyn at [facility]. Pt is aware at this time and states no further preference for HHC agency at this time. Pt states 'Just find me somebody, I want to get out of here today.' Call to [facility] and per [place], they take [facility] community plan at this time. Referral faxed to [facility] at this time for halfway PT/OT. Abdelrahman JORDAN CM
--- NOTE | 2019-06-07 12:00 | CASEMGMT ---
Script was e-scribed to [facility] for Lantus. Call to [facility] to verify coverage/co-pay for same at this time and per pharmacognosy teacher, Lantus is not the preferred drug on pt formulary at this time and will require prior auth. Per tech, basaglar or tuojeo are the preferred alternative. Judd SHEARER aware and states that he will send script for basaglar 17units daily instead. Call to pharmacy to check basaglar kwikpens and per pharmacognosy teacher, pt has no co-pay for basaglar at this time. Abdelrahman JORDAN CM
--- NOTE | 2019-06-07 12:07 | PHA.DC.MC ---
Pharmacy Service has performed discharge medication reconciliation and counseling for this patient. The patient's discharge medication list was reviewed for discrepancies and discrepancies were resolved. 1. FAMOTIDINE 40MG PO DAILY 2. DIPHENHYDRAMINE 25MG PO TID WHILE RASH IS PRESENT 3. PREDNISONE 60MG PO DAILY X 14 DAYS 4. INSULIN GLARGINE 17UNITS SC ONCE DAILY: counseled on appropriate use and injection technique for pens, S/S of hypoglycemia and correction techniques Home Medications amlodipine 5 mg tablet 5 mg PO DAILY 02/02/19 Aspirin [Aspirin, Baby] 81 mg PO DAILY@0800 tab.chew 04/27/19 Ipratropium/Albuterol Sulfate [Duoneb] 3 ml INHALATION Q6HWA.RT ampul.neb 04/27/19 Albuterol Sulfate [Ventolin Hfa] 2 puff INHALATION Q6H PRN PRN 06/03/19 Acetaminophen [Tylenol] 500 mg PO Q8H PRN PRN tab 06/07/19 DiphenhydrAMINE [Benadryl] 25 mg PO TID #90 cap 06/07/19 Famotidine [Pepcid] 40 mg PO DAILY #60 tab 06/07/19 Insulin Glargine,Hum.rec.anlog [Lantus] 100 unit SQ 17 #1 pen 06/07/19 Pen Needle, Diabetic [Pen [place]] 1 ea MC UD #100 dis.needle 06/07/19 Prednisone 60 mg PO DAILY #42 tab 06/07/19 Triamcinolone 0.5% Cream [Triamcinolone Acetonide] 1 applic TOPICAL BID #1 tube 06/07/19 The patient was counseled on the following discharge medications and changes in medications for homegoing were reviewed. The Reason for Use, instructions for use, and potential side effects were reviewed for all new medications. The patient's questions regarding all of their medications were answered. The patient was able to verbally demonstrate an understanding of their discharge medications.
--- NOTE | 2019-06-07 12:50 | PCM.PN.ID ---
Patient Problems: Active and Suspected Problems (Last Reviewed 06/04/19 @ 00:44 by Jacob Landeros MD) DRESS syndrome (Acute) Subjective: Feeling better, no fever, no abd pain. - Physical Exam General: Alert, Cooperative, No apparent distress Lungs: Clear to auscultation, Normal air movement Cardiovascular: Regular rate, Regular Rhythm Abdomen: Soft, Non Tender, Non-Distended Skin: Rash Present Vital Signs Temp Pulse Resp BP Pulse Ox 97.6 F L 93 16 175/85 H 100 06/07/19 08:21 06/07/19 08:21 06/07/19 08:21 06/07/19 08:21 06/07/19 08:21 Oxygen Delivery Method Room Air Weight: 88.6 kg Body Mass Index (BMI) 33.5 Finger Stick Blood Glucose 159 Intake and Output for Last 24 Hours 06/05/19 06/06/19 06/07/19 23:59 23:59 23:59 Intake Total 1390 / 1590 1470 / 1670 200 / 200 Balance 1390 / 1590 1470 / 1670 200 / 200 Microbiology Past 72 Hours 06/04/19 22:25 Urine Culture - Final Urine, Clean Catch Enterobacter cloacae complex 06/04/19 01:45 Blood Culture - Preliminary Blood Culture (Wb) - Pic No growth in 48 hours. 06/04/19 01:25 Blood Culture - Preliminary Blood Culture (Wb) - Right Hand No growth in 48 hours. Laboratory Tests Past 24 Hrs 06/06/19 06/06/19 06/06/19 05:34 05:34 14:25 WBC RBC Hgb Hct MCV MCH MCHC RDW Std Deviation RDW Coeff of Dottie Plt Count MPV Immature Gran % (Auto) Neut % (Auto) Lymph % (Auto) [place] % (Auto) Eos % (Auto) Baso % (Auto) Absolute Neuts (auto) Absolute Lymphs (auto) Nucleated RBC % Differential Comment Hypochromasia Microcytosis Eos Smear Total Cells Pending Sodium Potassium Chloride Carbon Dioxide Anion Gap BUN Creatinine Estim Creat Clear Calc Est GFR (MDRD) Af Amer Est GFR (MDRD) Non-Af BUN/Creatinine Ratio Glucose Calcium Total Bilirubin AST ALT Alkaline Phosphatase Total Protein Albumin Globulin Albumin/Globulin Ratio TSH 0.10 L Free T4 1.62 H Free T3 pg/dL 1.4 L CMV IgM Ab Pending EBV Capsid Ag IgM Ab Pending Hepatitis A IgM Ab Pending Hep Bs Antigen Pending Hep B Core IgM Ab Pending Hepatitis C Ab (EIA) Pending 06/07/19 06/07/19 06:30 06:30 WBC 5.8 RBC 3.09 L Hgb 9.0 L Hct 27.3 L MCV 88.3 MCH 29.1 MCHC 33.0 RDW Std Deviation 38.7 RDW Coeff of Dottie 12.1 Plt Count 193 MPV 9.1 Immature Gran % (Auto) 0.500 Neut % (Auto) 42.9 L Lymph % (Auto) 43.3 H [place] % (Auto) 13.0 H Eos % (Auto) 0.0 Baso % (Auto) 0.3 Absolute Neuts (auto) 2.5 Absolute Lymphs (auto) 2.49 Nucleated RBC % 0 Differential Comment SCANNED Hypochromasia 3+ Microcytosis 2+ Eos Smear Total Cells Sodium 139 Potassium 4.3 Chloride 111 H Carbon Dioxide 22.0 Anion Gap 6 BUN 51 H Creatinine 1.82 H Estim Creat Clear Calc 28.03 Est GFR (MDRD) Af Amer 36 L Est GFR (MDRD) Non-Af 30 L BUN/Creatinine Ratio 28.0 H Glucose 227 H Calcium 8.2 L Total Bilirubin 0.30 AST 26 ALT 64 H Alkaline Phosphatase 126 H Total Protein 6.3 L Albumin 2.4 L Globulin 3.9 Albumin/Globulin Ratio 0.6 L TSH Free T4 Free T3 pg/dL CMV IgM Ab EBV Capsid Ag IgM Ab Hepatitis A IgM Ab Hep Bs Antigen Hep B Core IgM Ab Hepatitis C Ab (EIA) POC Glucose 06/07/19 06/07/19 06/06/19 11:08 06:36 21:05 POC Glucose 228 H 236 H 409 H 06/06/19 16:24 POC Glucose 269 H Medical Necessity - Tobacco Use Smoking Status: Former smoker Route of nutrition/ use of supplements: [] Nutritional Intake: [] IV Site: [] Gudino Catheter: [] - Assessment/Plan Antibiotics: [] Assessment/Plan: [] Active and Suspected Problems (Last Reviewed 06/04/19 @ 00:44 by Jacob Landeros MD) 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 Abx being held. Presented with fever, rash, high eos, not feeling well. Fever resolved, skin bx done, AGGIE slowly improving. Repeat MRI showed resolution of abscess. Will need MRI report sent to office of [facility]. She should followup with him as previously scheduled. Will follow
--- NOTE | 2019-06-07 12:53 | DS.PCM_ITS ---
<Deng Masterson - Last Filed: 06/07/19 13:11> Discharge Date and Diagnosis - Problem List Patient Problems: Active and Suspected Problems (Last Reviewed 06/04/19 @ 00:44 by Jacob Landeros MD) DRESS syndrome (Acute) Date of Admission: 06/03/19 Date of Discharge: 06/07/19 - Primary Discharge Diagnosis Active and Suspected Problems (Last Reviewed 06/04/19 @ 00:44 by Jacob Landeros MD) DRESS syndrome (Acute) unclear etiology AGGIE 2/2 above elevated LFTs 2/2 above Hx Hep A/C HTN Recent discitis / osteomyelitis Recent CVA Debility DMt2 Hx RA - Secondary Discharge Diagnosis Chronic Problems (Last Reviewed 06/04/19 @ 00:44 by Jacob Landeros MD) Elevated liver enzymes (Chronic) Diabetes (Chronic) Rheumatoid arthritis (Chronic) Type II diabetes mellitus (Chronic) Hypertension (Chronic) Hospital Course and Treatment Imaging Results: US/Kidney and Bladder IMPRESSION: Increased renal cortical echogenicity consistent with medical renal disease. MRI/Spine Cervical (Routine) IMPRESSION: No significant change since the previous study of April 26, 2019. Currently, and At that time there was malalignment due to degenerative disc disease at the C4-5 level with posterior subluxation of C4 on C5. This malalignment and degenerative disease contributes to spinal canal stenosis and cord impingement. This disease continues posterior to the C5 vertebral body. The amount of edema within the C4 and C5 vertebral bodies is very similar to the previous study. The amount of prevertebral soft tissue edema is very similar to the previous study. Edema involving the posterior elements and spinous processes is similar to the previous study. These findings are suggestive of osteomyelitis. Although on the current noncontrasted study there is not overt evidence for acute discitis, the osteomyelitis to the abutting vertebral bodies and the degenerative changes at the C4-C5 level are consistent with discitis. The epidural empyema discussed on the post-contrasted previous MR is not identified on the current study, but could be contributing to the disease behind the C5 vertebral body. The absence of contrast decreases the sensitivity for the detection of epidural inflammation. Consults: Frida SKAGGS Operations: None Procedures: None Summary of Care Provided: Hospital Course: The patient is a 63 year old F with pmhx of recent hospitalization in [place] for CVA and Osteomyelitis/Diskitis of the C spine, who was sent to the ER with fever and rash. She had been on IV Vanc and Rocephin and for diskitis at an SNF after DC from the hospital, and had nearly completed her course. In the ER she had fever, diffuse erythematous rash with scattered petechiae on the trunk arms and legs, and elevated eosinophils. She was felt to have DRESS, initially suspected 2/2 her IV abx. ID was consulted, and as she had nearly completed her course recommended complete discontinuation. She had an MRI of the C spine which showed her prior abscess had resolved. She had systemic involvement with AGGIE and Elevated LFTs. She was treated with solumedrol, benadryl, and topical steroids. She had some worsening of the rash despite that her fever resolved, and her renal and liver function were improving. She had pain in her thighs and peeling skin on her palms and face. All of her oral medications were discontinued. Her rash continued to fluctuate. She underwent a skin biopsy with general surgery. The day of biopsy her rash had significantly improved and her labs continued to improve. She was restarted on norvasc due to increasing BP. She was started on weight based basaglar as her oral diabetes meds were discontinued, and provided diabetic training with insulin and the glucometer. She was restarted on aspirin given her recent stroke. Statin was held due to abnormal liver function and may need restarted as an outpatient after trending her CMP. She will need follow up with a patient account liaison this week. She will need to follow up with the surgeon in 1-2 weeks. And she needs to follow up with her PCP in 1-2 weeks. She will need an extended course of tapered steroids. We started the taper at 60 mg daily for two weeks. She will need this further adjusted at follow up. Her rash may take weeks to months to resolve. She did come from a senior care, however she did not want to go back and wanted to go home. She was discharged home with home health care in stable condition. This patient was seen by Deng Masterson PA-C under the supervision of Dr. Story. [] Patient Problems: Active and Suspected Problems (Last Reviewed 06/04/19 @ 00:44 by Jacob Landeros MD) DRESS syndrome (Acute) - Physical Exam General: Alert, Oriented x3, Cooperative HEENT: Atraumatic, PERRLA, EOMI, Normocephalic Neck: Supple, No JVD, Negative Carotid Bruits Lungs: Clear to auscultation, Normal air movement Cardiovascular: Regular rate, No murmurs Abdomen: Bowel Sounds Present, Soft, Non Tender Extremities: No edema, Capillary Refill Less than 3 Seconds Skin: No rashes, No breakdown Musculoskeletal: No Tenderness to Palpation of Joints or Extremities Neurological: Cranial nerves II-XII grossly intact Psych/Mental Status: Normal Affect, Appropriate, Alert and oriented to time, place, person, mood and affect Vital Signs Temp Pulse Resp BP Pulse Ox 97.6 F L 93 16 175/85 H 100 06/07/19 08:21 06/07/19 08:21 06/07/19 08:21 06/07/19 08:21 06/07/19 08:21 Oxygen Delivery Method Room Air Weight: 195 lb 5.273 oz Body Mass Index (BMI) 33.5 Finger Stick Blood Glucose 159 Intake and Output for Last 24 Hours 06/05/19 06/06/19 06/07/19 23:59 23:59 23:59 Intake Total 1390 / 1590 1470 / 1670 200 / 200 Balance 1390 / 1590 1470 / 1670 200 / 200 Microbiology Past 72 Hours 06/04/19 22:25 Urine Culture - Final Urine, Clean Catch Enterobacter cloacae complex 06/04/19 01:45 Blood Culture - Preliminary Blood Culture (Wb) - Pic No growth in 48 hours. 06/04/19 01:25 Blood Culture - Preliminary Blood Culture (Wb) - Right Hand No growth in 48 hours. Laboratory Tests Past 24 Hrs 06/06/19 06/06/19 06/06/19 05:34 05:34 14:25 WBC RBC Hgb Hct MCV MCH MCHC RDW Std Deviation RDW Coeff of Dottie Plt Count MPV Immature Gran % (Auto) Neut % (Auto) Lymph % (Auto) Clark % (Auto) Eos % (Auto) Baso % (Auto) Absolute Neuts (auto) Absolute Lymphs (auto) Nucleated RBC % Differential Comment Hypochromasia Microcytosis Eos Smear Total Cells Pending Sodium Potassium Chloride Carbon Dioxide Anion Gap BUN Creatinine Estim Creat Clear Calc Est GFR (MDRD) Af Amer Est GFR (MDRD) Non-Af BUN/Creatinine Ratio Glucose Calcium Total Bilirubin AST ALT Alkaline Phosphatase Total Protein Albumin Globulin Albumin/Globulin Ratio TSH 0.10 L Free T4 1.62 H Free T3 pg/dL 1.4 L CMV IgM Ab Pending EBV Capsid Ag IgM Ab Pending Hepatitis A IgM Ab Pending Hep Bs Antigen Pending Hep B Core IgM Ab Pending Hepatitis C Ab (EIA) Pending 06/07/19 06/07/19 06:30 06:30 WBC 5.8 RBC 3.09 L Hgb 9.0 L Hct 27.3 L MCV 88.3 MCH 29.1 MCHC 33.0 RDW Std Deviation 38.7 RDW Coeff of Dottie 12.1 Plt Count 193 MPV 9.1 Immature Gran % (Auto) 0.500 Neut % (Auto) 42.9 L Lymph % (Auto) 43.3 H Clark % (Auto) 13.0 H Eos % (Auto) 0.0 Baso % (Auto) 0.3 Absolute Neuts (auto) 2.5 Absolute Lymphs (auto) 2.49 Nucleated RBC % 0 Differential Comment SCANNED Hypochromasia 3+ Microcytosis 2+ Eos Smear Total Cells Sodium 139 Potassium 4.3 Chloride 111 H Carbon Dioxide 22.0 Anion Gap 6 BUN 51 H Creatinine 1.82 H Estim Creat Clear Calc 28.03 Est GFR (MDRD) Af Amer 36 L Est GFR (MDRD) Non-Af 30 L BUN/Creatinine Ratio 28.0 H Glucose 227 H Calcium 8.2 L Total Bilirubin 0.30 AST 26 ALT 64 H Alkaline Phosphatase 126 H Total Protein 6.3 L Albumin 2.4 L Globulin 3.9 Albumin/Globulin Ratio 0.6 L TSH Free T4 Free T3 pg/dL CMV IgM Ab EBV Capsid Ag IgM Ab Hepatitis A IgM Ab Hep Bs Antigen Hep B Core IgM Ab Hepatitis C Ab (EIA) POC Glucose 06/07/19 06/07/19 06/06/19 11:08 06:36 21:05 POC Glucose 228 H 236 H 409 H 06/06/19 16:24 POC Glucose 269 H Discharge Diet: Low fat/ Low Cholesterol, 1800 Calorie Control Diet, 2000 mg Sodium Diet Discharge Activity: Return to Normal Activity Home Medications: Medications to take at Discharge amlodipine 5 mg tablet 5 mg PO DAILY 02/02/19 Aspirin [Aspirin, Baby] 81 mg PO DAILY@0800 tab.chew 04/27/19 Ipratropium/Albuterol Sulfate [Duoneb] 3 ml INHALATION Q6HWA.RT ampul.neb 04/27/19 Albuterol Sulfate [Ventolin Hfa] 2 puff INHALATION Q6H PRN PRN 06/03/19 Acetaminophen [Tylenol] 500 mg PO Q8H PRN PRN tab 06/07/19 DiphenhydrAMINE [Benadryl] 25 mg PO TID #90 cap 06/07/19 Famotidine [Pepcid] 40 mg PO DAILY #60 tab 06/07/19 Insulin Glargine,Hum.rec.anlog [Basaglar Kwikpen U-100] 17 unit SQ DAILY #1 insuln.pen 06/07/19 Pen Needle, Diabetic [Pen [place]] 1 [facility] UD #100 dis.needle 06/07/19 Prednisone 60 mg PO DAILY #42 tab 06/07/19 Triamcinolone 0.5% Cream [Triamcinolone Acetonide] 1 applic TOPICAL BID #1 tube 06/07/19 Following Prescrptions Were Given to Patient: Insulin Glargine,Hum.rec.anlog [Basaglar Kwikpen U-100] 17 unit SQ DAILY #1 insuln.pen Transmission Status: Received by FIONA HALL [facility] DiphenhydrAMINE [Benadryl] 25 mg PO TID #90 cap Transmission Status: Received by [address] Triamcinolone 0.5% Cream [Triamcinolone Acetonide] 1 applic TOPICAL BID #1 tube [facility]: [facility] [address] Pen Needle, Diabetic [Pen [place]] 1 [facility] UD #100 dis.needle Transmission [facility]: [facility] [place] [address] Famotidine [Pepcid] 40 mg PO DAILY #60 tab Transmission Status: Received by [address] Prednisone 60 mg PO DAILY #42 tab Transmission Status: Received by [address] Other Amb Orders: Glucometer Location: None Selected Primary Care Physician: Prince Cummins, [Primary Care Provider] - Please follow up with your Primary Care Physician in: 1 week Please Follow Up With: Peggy Cat When: 1 week Please Follow Up With: Alfonzo Barillas MD When: 1-2 weeks Disposition: Home Minutes spent on discharge:: 35 Patient Condition:: Stable Medical Necessity - Tobacco Use Smoking Status: Former smoker Meaningful Use Info Meaningful Use Diagnoses (Choose all that apply): None applicable <Nayla Story - Last Filed: 06/07/19 14:36> Discharge Date and Diagnosis - Primary Discharge Diagnosis Active and Suspected Problems (Last Reviewed 06/04/19 @ 00:44 by Jacob Landeros MD) DRESS syndrome (Acute) - Secondary Discharge Diagnosis Chronic Problems (Last Reviewed 06/04/19 @ 00:44 by Jacob Landeros MD) Elevated liver enzymes (Chronic) Diabetes (Chronic) Rheumatoid arthritis (Chronic) Type II diabetes mellitus (Chronic) Hypertension (Chronic) Hospital Course and Treatment Summary of Care Provided: Patient seen by Deng Masterson PA-C under my supervision The patient is a 63 year old F with an extensive past medical history as listed. She was admitted through the ED with a complaint of fever and a rash. Patient had been on IV vancomycin and Rocephin for osteomyelitis and discitis of the cer vical spine and had been sent to a care home facility after discharge from the hospital. Subsequently developed a diffuse erythematous rash with scattered petechiae on the trunk, and legs and so came into the ED. She had assisted fever and elevated eosinophils. She was diagnosed with DR POOLE, which was thought to be due to her IV antibiotics. IV antibiotics were discontinued patient started on IV Solu-Medrol, Benadryl and topical steroids as well. MRI of the cervical spine done showed resolution of her prior abscess. Her oral medications were also discontinued as they were thought to be possibly contributing to her symptoms. Patient was subsequently improved. However fluctuated sometimes and so she had a skin biopsy done with general surgery on day of discharge. Norvasc was started on account of poorly controlled blood pressure and she was started on Basaglar as her oral diabetes medications were discontinued. Her statin was held due to abnormal liver function and she is counseled to see her PCP to consider restarting it. Patient remained stable and was discharged home on 06/07/2019. She was started on a prednisone taper for 2 weeks. Of note, patient refused to go back to a senior care and insisted on going home with home health care. She was referred to a patient account liaison to establish care. Patient seen and examined prior to discharge. She had no complaints and felt well. Review of systems otherwise negative. Labs and vitals reviewed. Home medication reviewed and reconciled. o/e: Vital Signs Height 5 ft 4 in Weight: 195 lb 5.273 oz Weight in Pounds 195.3 lbs Pulse Ox 100 Temperature 97.6 F Pulse Rate 89 Respiratory Rate 16 Blood Pressure 175/85 Blood Pressure Position Semi-Fowlers [] General: Alert, Oriented x3, Cooperative HEENT: Atraumatic, PERRLA, EOMI, Normocephalic Neck: Supple, No JVD, Negative Carotid Bruits Lungs: Clear to auscultation, Normal air movement Cardiovascular: Regular rate, No murmurs Abdomen: Bowel Sounds Present, Soft, Non Tender Extremities: No edema, Capillary Refill Less than 3 Seconds Skin: desquamating rash over her face, papular rash over her upper chest, with a fine, resolving, hyperpigmented rash over back and palms Musculoskeletal: No Tenderness to Palpation of Joints or Extremities Neurological: Cranial nerves II-XII grossly intact Psych/Mental Status: Normal Affect, Appropriate, Alert and oriented to time, place, person, mood and affect Plan as above. Rest as per Deng Masterson PA-C's note, which I reviewed and endorsed. - Physical Exam Vital Signs Temp Pulse Resp BP Pulse Ox 97.6 F L 89 16 175/85 H 100 06/07/19 08:21 06/07/19 11:01 06/07/19 08:21 06/07/19 08:21 06/07/19 08:21 Oxygen Delivery Method Room Air Weight: 195 lb 5.273 oz Body Mass Index (BMI) 33.5 Finger Stick Blood Glucose 159 Intake and Output for Last 24 Hours 06/05/19 06/06/19 06/07/19 23:59 23:59 23:59 Intake Total 1390 / 1590 1470 / 1670 790 / 790 Balance 1390 / 1590 1470 / 1670 790 / 790 Microbiology Past 72 Hours 06/04/19 22:25 Urine Culture - Final Urine, Clean Catch Enterobacter cloacae complex 06/04/19 01:45 Blood Culture - Preliminary Blood Culture (Wb) - Pic No growth in 48 hours. 06/04/19 01:25 Blood Culture - Preliminary Blood Culture (Wb) - Right Hand No growth in 48 hours. Laboratory Tests Past 24 Hrs 06/04/19 06/05/19 06/06/19 04:55 05:30 05:34 WBC RBC Hgb Hct MCV MCH MCHC RDW Std Deviation RDW Coeff of Dottie Plt Count MPV Immature Gran % (Auto) Neut % (Auto) Lymph % (Auto) Clark % (Auto) Eos % (Auto) Baso % (Auto) Absolute Neuts (auto) Absolute Lymphs (auto) Nucleated RBC % Differential Comment Diff Path Review Reviewed Reviewed Hypochromasia Microcytosis Eos Smear Total Cells Sodium Potassium Chloride Carbon Dioxide Anion Gap BUN Creatinine Estim Creat Clear Calc Est GFR (MDRD) Af Amer Est GFR (MDRD) Non-Af BUN/Creatinine Ratio Glucose Calcium Total Bilirubin AST ALT Alkaline Phosphatase Total Protein Albumin Globulin Albumin/Globulin Ratio TSH 0.10 L Free T4 Free T3 pg/dL CMV IgM Ab EBV Capsid Ag IgM Ab Hepatitis A IgM Ab Hep Bs Antigen Hep B Core IgM Ab Hepatitis C Ab (EIA) 06/06/19 06/06/19 06/07/19 05:34 14:25 06:30 WBC 5.8 RBC 3.09 L Hgb 9.0 L Hct 27.3 L MCV 88.3 MCH 29.1 MCHC 33.0 RDW Std Deviation 38.7 RDW Coeff of Dottie 12.1 Plt Count 193 MPV 9.1 Immature Gran % (Auto) 0.500 Neut % (Auto) 42.9 L Lymph % (Auto) 43.3 H Clark % (Auto) 13.0 H Eos % (Auto) 0.0 Baso % (Auto) 0.3 Absolute Neuts (auto) 2.5 Absolute Lymphs (auto) 2.49 Nucleated RBC % 0 Differential Comment SCANNED Diff Path Review Hypochromasia 3+ Microcytosis 2+ Eos Smear Total Cells Pending Sodium Potassium Chloride Carbon Dioxide Anion Gap BUN Creatinine Estim Creat Clear Calc Est GFR (MDRD) Af Amer Est GFR (MDRD) Non-Af BUN/Creatinine Ratio Glucose Calcium Total Bilirubin AST ALT Alkaline Phosphatase Total Protein Albumin Globulin Albumin/Globulin Ratio TSH Free T4 1.62 H Free T3 pg/dL 1.4 L CMV IgM Ab Pending EBV Capsid Ag IgM Ab Pending Hepatitis A IgM Ab Pending Hep Bs Antigen Pending Hep B Core IgM Ab Pending Hepatitis C Ab (EIA) Pending 06/07/19 06:30 WBC RBC Hgb Hct MCV MCH MCHC RDW Std Deviation RDW Coeff of Dottie Plt Count MPV Immature Gran % (Auto) Neut % (Auto) Lymph % (Auto) Clark % (Auto) Eos % (Auto) Baso % (Auto) Absolute Neuts (auto) Absolute Lymphs (auto) Nucleated RBC % Differential Comment Diff Path Review Hypochromasia Microcytosis Eos Smear Total Cells Sodium 139 Potassium 4.3 Chloride 111 H Carbon Dioxide 22.0 Anion Gap 6 BUN 51 H Creatinine 1.82 H Estim Creat Clear Calc 28.03 Est GFR (MDRD) Af Amer 36 L Est GFR (MDRD) Non-Af 30 L BUN/Creatinine Ratio 28.0 H Glucose 227 H Calcium 8.2 L Total Bilirubin 0.30 AST 26 ALT 64 H Alkaline Phosphatase 126 H Total Protein 6.3 L Albumin 2.4 L Globulin 3.9 Albumin/Globulin Ratio 0.6 L TSH Free T4 Free T3 pg/dL CMV IgM Ab EBV Capsid Ag IgM Ab Hepatitis A IgM Ab Hep Bs Antigen Hep B Core IgM Ab Hepatitis C Ab (EIA) POC Glucose 06/07/19 06/07/19 06/06/19 11:08 06:36 21:05 POC Glucose 228 H 236 H 409 H 06/06/19 16:24 POC Glucose 269 H Disposition: Home with Home Health Code Visit Inpatient E&M: [id number] Disch Hosp
[2019-06-07 13:35] LABS: Pathologist Review Reviewed
[2019-06-07 13:43] LABS: Pathologist Review Reviewed
[2019-06-07 14:20] VITALS: BP 167/89; PULSE 91; RESP 16; TEMP 36.6; O2SAT 99
--- NOTE | 2019-06-07 14:21 | CASEMGMT ---
Pt's address updated at this time and new facesheet faxed to [facility] at this time. Awaiting call [facility] to make sure [facility] can take pt at this time. Abdelrahman JORDAN CM
[2019-06-07] MEDS: amLODIPine 5 MG Tablet PO (15:10)
--- NOTE | 2019-06-07 15:29 | CASEMGMT ---
Addendum entered by Hawa Loya 06/07/19 15:52: D/C summary faxed to [facility] at this time. Abdelrahman JORDAN CM Original Note: This NIKKI LINARES placed call back to [facility] at this time and per Trena, they are able to take pt for SN, PT/OT at this time and she is aware that pt to be discharged today. Pt updated at this time, voices understanding. [facility] info provided to pt at this time. Abdelrahman JORDAN CM
--- NOTE | 2019-06-07 16:19 | PCM.PN.BLA ---
Progress Note The patient was consented for skin biopsy. The right thigh was prepped and anesthetized with lidocaine and epinephrine. Next a size 4 punch biopsy was performed and sent for pathology. Patient tolerated well. The incision was closed with 1 interrupted 3-0 chromic suture. A bandage was placed. Hemostasis was good. Alfonzo Barillas MD Pager: [facility] [address] [place] [address] Office:
--- NOTE | 2019-06-07 16:20 | CASEMGMT ---
Pt states that she has a ride later today and states that her [id number] will also be staying with her at home. Pt states no further concerns/needs at this time. Pt thanks this RN VIJAY for setting up [facility] at this time. Abdelrahman JORDAN CM
[2019-06-07 17:30] LABS: Bedside Glucose 328 mg/dL (70-110)
--- NOTE | 2019-06-07 17:51 | NURSING ---
PICC removed, 5 minutes of pressure held, vasaline jada and 2x2 jada, tegaderm placed. pt tolerated procedure well.
--- NOTE | 2019-06-08 13:11 | CASEMGMT ---
Case Management DC F/u Call: DC Date: 06/07/19 DC Diagnosis: DRESS syndrome (Acute) DC Disposition: Home with [facility]: 08/18 Attempted to call patient on listed cell number and went straight to patient has a voice mailbox that has not been set up yet. Unable to leave [place]
[2019-06-08 20:07] LABS: HEPATITIS B SURFACE AG Negative (Negative); Hepatitis A IgM Antibody Negative (Negative); Hepatitis B Core AB IgM Negative (Negative)
[2019-06-09 12:41] LABS: CMV Acute Antibody IgM < 30.0 AU/mL (0.0-29.9); EBV Acute VCA IgM < 36.0 U/mL (0.0-35.9); Eosinophil Ct. Urine No Eosinophils Seen % (.); Hep C Antibodies >11.0 s/co ratio (0.0-0.9)
== END 2019-06-07 17:54 | disposition home or self-care (01) | DRG 385 ==
LOC: ED 18:15 → MS3 20:43 → PCU 21:40
PROVIDERS: Physician Assistant; Admitting Provider Hospitalist; Emergency Provider Emergency Medicine; Family Provider Family Medicine; PCP Family Medicine; Visit Provider Student in an Organized Health Care Education/Training Program
DX: L27.0 Generalized skin eruption due to drugs and medicaments taken internally (principal); D72.1 Eosinophilia; N17.9 Acute kidney failure, unspecified; T36.95XA Adverse effect of unspecified systemic antibiotic, initial encounter; J45.909 Unspecified asthma, uncomplicated; E11.69 Type 2 diabetes mellitus with other specified complication; E87.5 Hyperkalemia; M46.22 Osteomyelitis of vertebra, cervical region; M46.42 Discitis, unspecified, cervical region; R79.89 Other specified abnormal findings of blood chemistry; I10 Essential (primary) hypertension; R53.81 Other malaise; Z86.73 Personal history of transient ischemic attack (TIA), and cerebral infarction without residual deficits; Z87.891 Personal history of nicotine dependence; M06.9 Rheumatoid arthritis, unspecified; Z86.19 Personal history of other infectious and parasitic diseases; Z79.4 Long term (current) use of insulin
CPT/HCPCS: 36415; 36592; 71045; 72141; 76770; 80048; 80053; 80074; 81001; 82962; 84439; 84443; 84481; 85025; 85610; 85730; 86645; 86665; 87040; 87086; 87088; 87186; 87205; 88305; 88341; 88342; 92526; 92610; 93005; 97116; 97162; 97166; 97530; 97535; 97802; 99285; J7030; A4216

== ENCOUNTER 2019-06-11 23:33 | Emergency (ER) | payer MEDICAID, SELFPAY ==
[2019-06-03 21:14] VITALS: BMI 33.5
[2019-06-11 23:34] VITALS: BP 196/87; PULSE 87; RESP 18; TEMP 36.3; O2SAT 98; BMI 29.3
--- NOTE | 2019-06-11 23:46 | ED.VIS.GEN ---
History of Present Illness Chief Complaint: Med Refill Detail of Chief Complaint: Needs insulin needles Informant: Patient, Family Onset: Days Narrative: Patient states she was recently discharged from the hospital with an insulin pen. She was not given the needles for the insulin pen. She is unable to use her insulin for the past 2 days. She does not have a meter to check her blood sugar. She has reportedly been urinating frequently. She denies dysuria but states she does have a strong odor to her urine. Family states she is complaining of mild left lower back pain and had urinated on herself earlier today. Past Medical History - Allergies and Home Meds Allergies/Adverse Reactions: Allergies ceftriaxone Allergy (Severe, Verified 06/11/19 23:36) Rash vancomycin Allergy (Severe, Verified 06/11/19 23:36) Rash Penicillins Allergy (Verified 06/11/19 23:36) Swelling oxycodone HCl [From Percocet] Adverse Reaction (Verified 06/11/19 23:36) Itching Primary Care Physician: Prince Cummins DO [Primary Care Provider] - Prior records reviewed: Yes Past Medical History: - - Reviewed Surgical History: - Lives: With Family Smoking Status: Former smoker - Family History Maternal Family History: Family History (Last Reviewed 06/04/19 @ 00:46 by Jacob Landeros MD) Mother Hypertension Emphysema/COPD Sister Hypertension Family History: Reports: No pertinent history Paternal Family History: Family History (Last Reviewed 06/04/19 @ 00:46 by Jacob Landeros MD) Mother Hypertension Emphysema/COPD Sister Hypertension Family History: Reports: No pertinent history Review of Systems General: Denies: Chills, Fever Eyes: Denies: Visual changes - bilaterally ENT: Denies: Bilateral ear pain Cardiovascular: Denies: Chest pain Respiratory: Denies: Dyspnea, Cough Gastrointestinal: Denies: Abdominal pain, Nausea, Vomiting, Diarrhea Genitourinary: Reports: Frequency. Denies: Dysuria Musculoskeletal: Reports: Back pain Skin: Denies: Wounds Neurological: Denies: Headache Allergy: Denies: Uticaria Physical Exam Vital Signs/Narrative: Vital Signs Temp Pulse Resp BP Pulse Ox 06/11/19 23:34 97.3 F L 87 18 196/87 H 98 Inital Vital Signs reviewed: Yes General: Well nourished, Well developed ENT: Moist mucous membranes Neck: Supple Cardiovascular: Regular rate, Regular rhythm Respiratory: No distress, CTA bilaterally Abdomen: Soft, Nontender Back: Negative for: CVA tenderness Skin: Normal color, No rash Neurological: Alert, Oriented x3 Psychological: Normal affect Diagnostic/Tx/Re-eval - Medical Decision Making I spoke with the pharmacy was advised that they do not have the needles for the insulin pen to dispense. Patient be given a few here tonight and will get her prescription filled tomorrow. I requested a UA, but patient was unable to provide me a sample here. She is not wanting to stay to provide a sample at this time. My suspicion is that her urinary frequency is secondary to her hyperglycemia. She will take her insulin for the next couple days and try to get her sugar under control. If her urinary symptoms persist she will return to have her urine checked. ED Disposition - Plan for ED Patient: Disposition: Home or Assisted Living Diagnosis: Medication refill Instructions: Med Refill Prescriptions: [place], Insulin Disposable [Novofine Autocover 30G Needle] 1 each MISCELL. UD #1 box Referrals: Prince Cummins DO [Primary Care Provider] -
[2019-06-12 00:11] LABS: Bedside Glucose > 500 mg/dL (70-110)
[2019-06-12 00:15] VITALS: RESP 18
[2019-06-12 00:27] VITALS: RESP 18
== END 2019-06-12 00:27 | disposition home or self-care (01) ==
PROVIDERS: Emergency Provider Emergency Medicine; Family Provider Family Medicine; PCP Family Medicine
DX: Z76.0 Encounter for issue of repeat prescription (principal); E11.65 Type 2 diabetes mellitus with hyperglycemia; Z79.4 Long term (current) use of insulin; Z87.891 Personal history of nicotine dependence
CPT/HCPCS: 82962; 99282

== ENCOUNTER 2019-06-21 16:02 | Observation (INO) | payer MEDICAID, SELFPAY ==
[2019-06-21] VITALS (8 sets, daily range): BP systolic 158–210; BP diastolic 67–98; PULSE 70–97; RESP 15–18; TEMP 36.8–36.9; O2SAT 96–99; BMI 32.3; BMI 32.4; BMI 31.6
--- NOTE | 2019-06-21 16:21 | EKG12_ITS ---
Test Reason : LOWER EXTREMITY Blood Pressure : / mmHG Vent. Rate : 091 BPM Atrial Rate : 091 BPM P-R Int : 164 ms QRS Dur : 070 ms QT Int : 380 ms P-R-T Axes : 000 034 014 degrees QTc Int : 467 ms Normal sinus rhythm vs Ectopic Atrial Rhythm Septal infarct age undetermined, cannnot be excluded Abnormal ECG Confirmed by DANYEL PIZARRO, SILVESTRE ([id number]), legal editor DERICK ARNOLD ([id number]) on 06/23/2019 1:52:30 PM Referred By: JAMESON Confirmed By:SILVESTRE MONTAÑO MD
--- NOTE | 2019-06-21 16:22 | RAD_ITS ---
STUDY: X-RAY CHEST REASON FOR EXAM: Female, 63 years old. Cough. TECHNIQUE: Single AP portable view of the chest. COMPARISON: 06/04/2019. FINDINGS: The lungs are clear and expanded. There is no demonstrated pleural abnormality. Normal size heart. Normal mediastinum and gaye. Normal visualized pulmonary arteries. Normal visualized aortic arch and descending thoracic aorta. Normal visualized thoracic spine. Normal visualized ribs, clavicles, and shoulders. There is no demonstrated abnormality of the visualized soft tissue structures of the upper abdomen. RAD/Chest 1 View (Portable) IMPRESSION: Normal x-ray examination of the chest. Electronically Signed: Ronnell Delcid MD at 17:18 EDT , Service support ,
[2019-06-21] MEDS: 0.9% Normal Saline 1,000 ML 150 ML IV ×2 (16:59→18:27)
--- NOTE | 2019-06-21 17:04 | ED.DCSUM_ITS ---
- ER Visit Summary Date of Service: 06/21/19 Chief Complaint: [Bilateral knee pain and needs help caring for self.] History of Present Illness: The patient is a 63 F [presents to the emergency department via EMS from home. Patient states that she was recently discharged from [facility] where she was admitted for a stroke and for discitis in her back. Patient was discharged to home and apparently her son was supposed to help care for her however he recently went to shelter and she has no one to help her care for herself. Patient today states that she developed bilateral knee pain and is having a hard time getting around and caring for herself. Patient also states she is been without her insulin for about a week as she does not have the needles to give herself insulin. Patient has history of prior stroke, asthma, diabetes, hypertension, dress syndrome, and rheumatoid arthritis. Patient has had a slight cough. She describes some urinary frequency however she denies dysuria or hematuria. Patient denies any fevers. Has had no nausea or vomiting.] Physical Examination: [HEENT-PERRLA, EOMI. Cranial nerves II through XII grossly intact. TMs clear. Mucous membranes moist. No adenopathy. Cardiovascular-regular rate and rhythm without murmur or ectopy Lungs-clear to auscultation, chest wall stable without crepitus or subcu emphysema Abdomen-normoactive bowel sounds, soft, nontender, no rebound or rigidity, no peritoneal signs. Skin exam-patient has dry peeling skin. Extremities-intact ?4, normal range of motion, normal pulses, atraumatic] Test Results: [EKG obtained arrival shows sinus rhythm with a ventricular rate of 91 bpm with old septal infarct noted.] CBC with differential showing of 8.4, hemoglobin 8.3, hematocrit 25, plates 151. Chemistries show sodium 138, potassium 2.8, chloride 96, CO2 36, BUN 19 and creatinine 1.38. Glucose was 302. Troponin is less than 0.015. Chest x-ray showed nothing acute. Emergency Department Course and Treatment: [Patient was given 40 mEq of potassium chloride p.o. Patient was given IV fluids.] Treatment Plan: [Admit] Disposition: [Admit] Impression: [Eyes weakness Bilateral knee pain Hypokalemia Anemia Hyperglycemia-noncompliant with meds] This note was generated with [employer] software. It may contain incorrect words, spelling, and punctuation that were not noted in review of the chart prior to signing ED Disposition - Plan for ED Patient: Referrals: Prince Cummins DO [Primary Care Provider] -
[2019-06-21 17:12] LABS: Absolute Lymphocyte Count 1.92 X10^3/uL (0.83-4.51); Absolute Neutrophil Count 5.9 X10^3/uL (2.0-7.7); Basophil# 0.01 X10^3/uL; Basophil% 0.1 % (0-1); Eosinophil# 0.09 X10^3/uL; Eosinophils% 1.1 % (0-5); Hematocrit 25.4 % (37-47); Hemoglobin 8.3 g/dL (12.0-15.0); Lymphocyte # 1.92 X10^3/ul (4.0); Mean Corp Hgb Conc 32.7 g/dL (32-36); Mean Corpuscular Hgb 29.2 pg (27.0-32.0); Mean Corpuscular Volume 89.4 fL (81-99); Mean Platelet Vol. 10.5 fl (6.2-12.0); Monocyte# 0.34 X10^3/uL; Monocyte% 4.1 % (0-10); NRBC Flagged by Analyzer 0 % (0-5); Neutrophil # 5.93 X10^3/uL (2.7-7.7); Neutrophil % 70.9 % (47-70); Platelet Count 151 K/mm3 (150-450); RBC Distribution Width CV 12.7 % (11.6-14.6); RBC Distribution Width SD 41.7 fl (35.1-43.9); Red Blood Count 2.84 M/mm3 (4.2-5.4); White Blood Count 8.4 K/mm3 (4.4-11.0)
[2019-06-21 17:26] LABS: AST(SGOT) 37 U/L (15-37); Alanine Aminotransfer ALT/SGPT 124 U/L (13-56); Albumin, Serum 2.6 g/dL (3.2-5.0); Alkaline Phosphatase 116 U/L (45-117); Anion Gap 6 (5-15); BUN 19 mg/dL (7-18); BUN/Creat Ratio 13.8 RATIO (10-20); Bilirubin, Direct 0.31 mg/dL (0.00-0.30); Chloride 96 mmol/L (98-107); Creatinine, Serum 1.38 mg/dL (0.55-1.02); EST Glomerular Filtration Rate 41 mL/min (>60); Est Glom Filt Rate - Afr Amer 50 mL/min (>60); Estimated Creatinine Clearance 36.97 ml/min; Globulin 3.8 g/dL (2.2-4.2); Glucose 302 mg/dL (74-106); Potassium 2.8 mmol/L (3.5-5.1); Protein, Total 6.4 g/dL (6.4-8.2); Sodium Level 138 mmol/L (136-145)
[2019-06-21] MEDS: Ondansetron 4 MG/2 ML Vial IV (17:46)
[2019-06-21] MEDS: Morphine 4 MG/ML Syringe IV (17:46)
--- NOTE | 2019-06-21 17:58 | ED.RN ---
PT WAS ABLE TO AMBULATE FROM ROOM 3 WITH WALKER TO BATHROOM, GAIT WAS STEADY, PT TOLERATED WELL.
--- NOTE | 2019-06-21 18:07 | HP.PCM_ITS ---
Problem List (1) Debility Status: Chronic (2) DRESS syndrome Status: Chronic (3) Acute CVA (cerebrovascular accident) Status: Chronic (4) Asthma exacerbation Status: Chronic (5) Rheumatoid arthritis Status: Chronic Qualifiers: (6) Hypertensive emergency Status: Chronic (7) Type II diabetes mellitus Status: Chronic Qualifiers: (8) Hypertension Status: Chronic Qualifiers: History of Present Illness Date of Admission: 06/21/19 Chief Complaint: cant walk The patient is a 63 year old F wtih pmhx DRESS syndrome, HTN, DMt2, CVA, and of recent admission hospitalizations including recently treated at [facility] for discitis and acute CVA discharged to [facility] where she completed IV abx therapy, however readmitted at the end of her abx therapy to [facility] with DRESS syndrome on 06/03/2019 and subsequently discharged home on 06/07/2019. She then reported back to the ER no 06/11/2019 saying she was not prescribed insulin needles however she was in fact prescribed insulin needles per hospital records on 06/07/2019. She was sent from the ER home with pen needles. She reports to the ER today saying that she cannot walk and that she has no insulin pen needles. She states that she sat on the couch today then suddenly had 10/10 knee pain and she could not stand up. She says she called the squad who brought her to the ER, and she still has 10/10 pain in the ER and has not been given anything for pain. She states she cannot care for herself and has no help at home. Her son was supposed to be helping her however he has been sent to [facility]. In the ER she states she is not going to a penitentiary, however social work had a discussion with her and she agreed to go to a penitentiary as long as it was not [place]. She then told the social work program coordinator that she had no knee pain currently, several minutes after telling me she had 10/10 knee pain. She then was given a walker and successfully walked across the ER to the bathroom without assistance, and returned again walking without assistance. She will be brought in for observation. As per her recent DRESS syndrome all erythema is resolved, she does continue to have peeling skin. She never followed up with dermatology which we instructed her to do at discharge on 06/07/2019. [] Past Medical History Past Medical History (Chronic Problems): Chronic Problems (Last Reviewed 06/04/19 @ 00:44 by Jacob Landeros MD) DRESS syndrome (Chronic) Debility (Chronic) Acute CVA (cerebrovascular accident) (Chronic) Asthma exacerbation (Chronic) Elevated liver enzymes (Chronic) Diabetes (Chronic) Rheumatoid arthritis (Chronic) Hypertensive emergency (Chronic) Type II diabetes mellitus (Chronic) Hypertension (Chronic) Medical History: Medical History (Last Reviewed 06/04/19 @ 00:44 by Jacob Landeros MD) Diabetes (Chronic) E11.9 Rheumatoid arthritis (Chronic) M06.9 Asthma J45.909 Chest pain R07.9 H/O: hysterectomy Z98.890, Z90.710 SOB (shortness of breath) R06.02 Stroke I63.9 Hypertension I10 Allergies ceftriaxone Allergy (Severe, Verified 06/21/19 16:06) Rash vancomycin Allergy (Severe, Verified 06/21/19 16:06) Rash Penicillins Allergy (Verified 06/21/19 16:06) Swelling oxycodone HCl [From Percocet] Adverse Reaction (Verified 06/21/19 16:06) Itching Home Medications: Ambulatory Orders Medication Instructions Recorded amlodipine 5 mg tablet 5 mg PO DAILY 02/02/19 Aspirin [Aspirin, Baby] 81 mg PO DAILY@0800 tab.chew 04/27/19 Ipratropium/Albuterol Sulfate 3 ml INHALATION Q6HWA.RT ampul.neb 04/27/19 [Duoneb] Albuterol Sulfate [Ventolin Hfa] 2 puff INHALATION Q6H PRN PRN 06/03/19 Acetaminophen [Tylenol] 500 mg PO Q8H PRN PRN tab 06/07/19 DiphenhydrAMINE [Benadryl] 25 mg PO TID #90 cap 06/07/19 Famotidine [Pepcid] 40 mg PO DAILY #60 tab 06/07/19 Insulin Glargine,Hum.rec.anlog 17 unit SQ DAILY #1 insuln.pen 06/07/19 [Adam[place]anna Chavispen U-100] Pen Needle, Diabetic [Pen [place]] 1 ea UD #100 dis.needle 06/07/19 Prednisone 60 mg PO DAILY #42 tab 06/07/19 Triamcinolone 0.5% Cream 1 applic TOPICAL BID #1 tube 06/07/19 [Triamcinolone Acetonide] [place], Insulin Disposable 1 ea MISCELL. UD #1 box 06/12/19 [Novofine Autocover 30G Needle] Surgical History: Surgical History (Last Reviewed 06/04/19 @ 00:46 by Jacob Landeros MD) History of eye surgery Z98.890 knee scope Bilateral Surgical History: - Psychiatric History: 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 STRATEGIC CONSULTANT History: No pertinent STRATEGIC CONSULTANT history Smoking Status: Former smoker - *Family History Maternal Family History: Family History (Last Reviewed 06/04/19 @ 00:46 by Jacob Landeros MD) Mother Hypertension Emphysema/COPD Sister Hypertension History Items: No pertinent history Paternal Family History: Family History (Last Reviewed 06/04/19 @ 00:46 by Jacob Landeros MD) Mother Hypertension Emphysema/COPD Sister Hypertension History Items: No pertinent history Review of Systems Constitutional: Reports: Weakness. Denies: Chills, Fever, Weight Change HEENT: Denies: Head Aches, Sinus Congestion, Sinus Drainage Cardiovascular: Denies: Chest Pain, Palpitations Respiratory: Denies: Cough, Shortness of breath at rest, Sputum production Gastrointestinal: Denies: Abdominal Pain, Nausea, Vomiting Genitourinary: Denies: Dysuria Musculoskeletal: Reports: Joint Pain. Denies: Joint Tenderness Skin: Reports: Skin Changes. Denies: Rash, Wounds Neurological: Denies: Numbness, Tingling, Focal weakness Psychiatric: Denies: Anxiety, Depression, Homicidal Ideations, Suicidal Ideations Hematologic/ Lymphatic: Denies: Easy Bruising, Easy Bleeding VTE Information - Inpt Only VTE Present on Admission: No VTE Mechan Device Prophylaxis: None VTE Pharm Prophylaxis ordered?: Yes - Physical Exam General: Alert, Oriented x3, Cooperative HEENT: Atraumatic, PERRLA, EOMI, Normocephalic Neck: Supple, No JVD, Negative Carotid Bruits Lungs: Clear to auscultation, Normal air movement Cardiovascular: Regular rate, No murmurs Abdomen: Bowel Sounds Present, Soft, Non Tender Extremities: No edema, Capillary Refill Less than 3 Seconds Skin: No rashes, No breakdown Musculoskeletal: No Tenderness to Palpation of Joints or Extremities Neurological: Cranial nerves II-XII grossly intact Psych/Mental Status: Normal Affect, Appropriate, Alert and oriented to time, place, person, mood and affect Vital Signs Temp Pulse Resp BP Pulse Ox 98.3 F 95 18 210/81 H 98 06/21/19 16:03 06/21/19 16:03 06/21/19 16:03 06/21/19 16:03 06/21/19 16:03 Oxygen Delivery Method Room Air Weight: 188 lb 11.451 oz Body Mass Index (BMI) 32.3 Finger Stick Blood Glucose 595 Laboratory Tests Past 24 Hrs 06/21/19 06/21/19 17:00 17:00 WBC 8.4 RBC 2.84 L Hgb 8.3 L Hct 25.4 L MCV 89.4 MCH 29.2 MCHC 32.7 RDW Std Deviation 41.7 RDW Coeff of Dottie 12.7 Plt Count 151 MPV 10.5 Immature Gran % (Auto) 0.800 Neut % (Auto) 70.9 H Lymph % (Auto) 23.0 Amelia % (Auto) 4.1 Eos % (Auto) 1.1 Baso % (Auto) 0.1 Absolute Neuts (auto) 5.9 Absolute Lymphs (auto) 1.92 Nucleated RBC % 0 Sodium 138 Potassium 2.8 L Chloride 96 L Carbon Dioxide 36.0 H Anion Gap 6 BUN 19 H Creatinine 1.38 H Estim Creat Clear Calc 36.97 Est GFR (MDRD) Af Amer 50 L Est GFR (MDRD) Non-Af 41 L BUN/Creatinine Ratio 13.8 Glucose 302 H Calcium 8.0 L Total Bilirubin 0.70 Direct Bilirubin 0.31 H AST 37 ALT 124 H Alkaline Phosphatase 116 Troponin I < 0.015 Total Protein 6.4 Albumin 2.6 L Globulin 3.8 Assessment/Plan All Active Problems (Last Reviewed 06/04/19 @ 00:44 by Jacob Landeros MD) Discitis of cervical region (Acute) 1. Debility - states this is due to knee pain. Given her inconsistent story and pain ratings recommend acetaminophen and aspercreme. PTOT. Patient walked across the ER without assistance with a walker despite saying she was completely unable to walk. SNF vs home with home health care. She initially said she would not consider goint to a penitentiary then later said she would as long as it was not [place]. -Trop neg, CXR neg, UA pending. 2. CKDIII - stable. 3. Hypokalemia - check mag/phos. Given 40 meq in ER will give another 40. Corrected calcium is 9.1. 4. Recent DRESS syndrome - this was thought to be from Vancomycin therapy however the continue PO prednisone, she needs extended taper. She was on 60 since last discharge on 06/07 so she is about 2 weeks into treatment, will change to 50 mg po daily. She failed to follow up with dermatology as an outpatient as directed at last admission. She needs to make sure she has outpatient follow up with dermatology for further direction of steroid therapy. There is no inpatient dermatology service available here. A biopsy was done last admission by Dr. Barillas which showed nonspecific results - see path report. 5. Hx Hep A and Hep C - mildly abnormal LFTs 6. DMt2 with obesity - dietary eval. As noted in HPI, she was prescribed pen needles at discharge, then came back to the ER stating she was not prescribed pen needles, was given pen needles, and now states that she has no insulin pen needles. This is one of several inconsistencies in her story. Continue home diabetic regimen + SSI. 7. HTN - severely elevated in the ER. AntiHTN meds adjusted at last visit with concern for dress. Continue Norvasc at higher dose, home regimen will need cautiously adjusted. 8. Discitis recently - completed vanco/rocephin. A repeat MRI was done last admission showing improvement and ID stopped her Abx. Needs to follow up with her own infectious disease specialist Dr. Norton as an outpatient. 9. Recent CVA - she only takes a baby aspirin. 10. Hx RA - complicating her debility. She takes no maintenance medications for this. 11. Normocytic anemia - complicating her debility. Check TSH/T3/T4, Iron, ferritin, TIBC, sat. DVT ppx: heparin DC Planning: SNF vs Home with [facility]. This patient was seen by Deng Masterson PA-C under the supervision of Dr. Lamb.
[2019-06-21 18:09] LABS: Bacteria 0 SEEN /hpf (None Seen); Mucous, Urine 0 SEEN /hpf (<or=2+); Red Blood Cells-Urine 0 SEEN /hpf (0-5); Squamous Epithelial Cells - UA 0 SEEN /hpf (5-10); White Blood Cells 0 SEEN /hpf (0-5)
[2019-06-21 18:19] LABS: Color, Urine Yellow (Yellow); Glucose, Dipstick Normal (Normal); Ketone-Dipstick Negative (Negative); Leukocyte Esterase-Dipstick Negative /ul (Negative); Nitrite-Dipstick Negative (Negative); Occult Blood-Urine Negative /ul (Negative); Protein-Dipstick Negative (Negative); Specific Gravity, Urine 1.005 (1.002-1.030); Urine Bilirubin Dipstick Negative (Negative); Urine Clarity Clear (Clear); Urine Urobilinogen Normal (Normal)
[2019-06-21 19:10] LABS: Ferritin 895 ng/mL (8-252); Iron 28 ug/dL (50-170); Iron Binding Capacity,Total 216 ug/dL (250-450); Magnesium 1.4 mg/dL (1.6-2.6)
[2019-06-21 19:16] LABS: Bedside Glucose 285 mg/dL (70-110)
[2019-06-21] MEDS: Insulin Lispro 100 UNIT/ML INSULN.PEN SC ×2 (19:37→22:20)
[2019-06-21] MEDS: Metoprolol Tartrate 25 MG Tablet PO (19:39)
[2019-06-21] MEDS: Acetaminophen 325 MG Tablet 650 MG PO (19:39)
[2019-06-21] MEDS: 0.9% NaCl Peripheral Flush Adult/Peds IV (19:41)
[2019-06-21 20:11] LABS: Phosphorus 2.6 mg/dL (2.5-4.9); T4 Free Direct 1.26 ng/dL (0.76-1.46); Thyroid Stim Hormone (TSH) 1.04 uIU/mL (0.358-3.74)
[2019-06-21] MEDS: Ipratropium/Albuterol Sulfate 3 ML AMPUL.NEB INHALATION (20:11)
[2019-06-21] MEDS: Triamcinolone 0.5% Cream 1 APPLIC TOPICAL (22:09)
[2019-06-21] MEDS: Heparin Injection (Vial) 5,000 UNIT/ML VIAL 5000 UNIT SC (22:09)
[2019-06-21] MEDS: Atorvastatin Calcium 80 MG Tablet PO (22:09)
[2019-06-21] MEDS: hydrALAZINE 50 MG Tablet PO (22:09)
[2019-06-21 22:45] LABS: Bedside Glucose 349 mg/dL (70-110)
[2019-06-22] VITALS (16 sets, daily range): BP systolic 156–197; BP diastolic 58–91; PULSE 78–112; RESP 16–18; TEMP 36.7–36.9; O2SAT 96–99
[2019-06-22] MEDS: 0.9% Normal Saline 1,000 ML 150 ML IV ×2 (01:07→08:09)
[2019-06-22] MEDS: hydrALAZINE 50 MG Tablet PO ×3 (05:00→21:00)
[2019-06-22] MEDS: Heparin Injection (Vial) 5,000 UNIT/ML VIAL 5000 UNIT SC ×3 (05:00→20:58)
[2019-06-22 06:14] LABS: Anion Gap 7 (5-15); BUN 16 mg/dL (7-18); BUN/Creat Ratio 12.2 RATIO (10-20); Calcium,Total 7.1 mg/dL (8.5-10.1); Chloride 105 mmol/L (98-107); Creatinine, Serum 1.31 mg/dL (0.55-1.02); EST Glomerular Filtration Rate 44 mL/min (>60); Est Glom Filt Rate - Afr Amer 53 mL/min (>60); Estimated Creatinine Clearance 38.94 ml/min; Glucose 263 mg/dL (74-106); Potassium 3.3 mmol/L (3.5-5.1); Sodium Level 143 mmol/L (136-145)
[2019-06-22] MEDS: Insulin Lispro 100 UNIT/ML INSULN.PEN SC ×6 (06:42→16:29)
[2019-06-22 06:51] LABS: Bedside Glucose 262 mg/dL (70-110)
[2019-06-22] MEDS: Ipratropium/Albuterol Sulfate 3 ML AMPUL.NEB INHALATION ×3 (07:00→18:55)
[2019-06-22] MEDS: Metoprolol Tartrate 25 MG Tablet PO ×2 (08:10→21:00)
[2019-06-22] MEDS: Aspirin 81 MG TAB.CHEW PO (08:10)
[2019-06-22] MEDS: Triamcinolone 0.5% Cream 1 APPLIC TOPICAL ×2 (08:11→21:12)
[2019-06-22 09:45] LABS: Magnesium 1.7 mg/dL (1.6-2.6)
--- NOTE | 2019-06-22 10:25 | CASEMGMT ---
LU reviewed chart and noted patient will likely need placement as she is having troubles caring for herself. SW met with patient, introduced self and role at [facility]. When SW asked her about how she was doing at home she said she couldn't get anyone to come in and stay with her. SW asked her if she was planning on going to a detention. She said she would rather go home. LU told her it sounds like that is not a very good plan as it has not been working. LU gave her a list of facilities that are in network with her insurance. LU told her to pick at least 3 facilities she would prefer to go to. LU told her SW will stop by in a little bit to get her list. Bekah SAMAYOA MSW
--- NOTE | 2019-06-22 10:58 | CASEMGMT ---
SW stopped by patient's room and she had not picked any facilities. She started crying stating she wants to go home. LU asked if she would like SW to put the list on her table. She said her friend Anai would help her pick facilities. LU asked if it is ok for LU to call her friend, Anai and she said that is fine. LU called Anai and first choice was [facility], but they are not in network with patient's insurance. Her first choice would be [facility] and second would be [facility] in [place]. LU asked her about patient's granddaughter. She said she is staying with her while patient is in the hospital and when she goes to a [facility]. LU told her SW will work on this. Bekah SAMAYOA MSW
--- NOTE | 2019-06-22 11:08 | CASEMGMT ---
SW called [facility] with referral as well as faxed referral. Await response and PT/OT evaluations. Bekah SAMAYOA MSW
[2019-06-22] MEDS: Acetaminophen 325 MG Tablet 650 MG PO ×2 (11:45→21:03)
[2019-06-22] MEDS: predniSONE 10 MG Tablet 50 MG PO (11:45)
[2019-06-22 11:56] LABS: Bedside Glucose 269 mg/dL (70-110)
--- NOTE | 2019-06-22 12:49 | CASEMGMT ---
LU received a call from Laura at [facility] and they can accept patient. LU will fax them PT/OT evaluations as soon as they are done so they can start the pre-cert. Bekah SAMAYOA MSW
--- NOTE | 2019-06-22 13:19 | PCM.PROGNOTE ---
Subjective: Pt still agreeable to SNF as long as its not [facility]. Ongoing mild BL knee pain. She has not been out of bed yet today, I encouraged out of bed and exercise given her underlying RA. Pt told nursing she was not taking prednisone as an outpatient which she should have been on 60 mg daily long taper for DRESS. She reports no change in her rash. - Physical Exam General: Alert, Oriented x3, Cooperative HEENT: Atraumatic, PERRLA, EOMI, Normocephalic Neck: Supple, No JVD, Negative Carotid Bruits Lungs: Clear to auscultation, Normal air movement Cardiovascular: Regular rate, No murmurs Abdomen: Bowel Sounds Present, Soft, Non Tender Extremities: No edema, Capillary Refill Less than 3 Seconds Skin: Rash Present - where previous areas were on the extremities and torso the erythema, petechiae, and warmth has been replaced by flaking skin Musculoskeletal: No Tenderness to Palpation of Joints or Extremities Neurological: Cranial nerves II-XII grossly intact Psych/Mental Status: Normal Affect, Appropriate, Alert and oriented to time, place, person, mood and affect Vital Signs Temp Pulse Resp BP Pulse Ox 98.4 F 79 16 167/74 H 97 06/22/19 10:08 06/22/19 10:08 06/22/19 10:08 06/22/19 10:08 06/22/19 10:08 Oxygen Delivery Method Room Air Weight: 185 lb 10.067 oz Body Mass Index (BMI) 31.6 Finger Stick Blood Glucose 595 Intake and Output for Last 24 Hours 06/20/19 06/21/19 06/22/19 23:59 23:59 23:59 Intake Total 1290 / 1290 1394 / 1394 Balance 1290 / 1290 1394 / 1394 Laboratory Tests Past 24 Hrs 06/21/19 06/21/19 06/21/19 17:00 17:00 17:00 WBC 8.4 RBC 2.84 L Hgb 8.3 L Hct 25.4 L MCV 89.4 MCH 29.2 MCHC 32.7 RDW Std Deviation 41.7 RDW Coeff of Dottie 12.7 Plt Count 151 MPV 10.5 Immature Gran % (Auto) 0.800 Neut % (Auto) 70.9 H Lymph % (Auto) 23.0 Wilson % (Auto) 4.1 Eos % (Auto) 1.1 Baso % (Auto) 0.1 Absolute Neuts (auto) 5.9 Absolute Lymphs (auto) 1.92 Nucleated RBC % 0 Sodium 138 Potassium 2.8 L Chloride 96 L Carbon Dioxide 36.0 H Anion Gap 6 BUN 19 H Creatinine 1.38 H Estim Creat Clear Calc 36.97 Est GFR (MDRD) Af Amer 50 L Est GFR (MDRD) Non-Af 41 L BUN/Creatinine Ratio 13.8 Glucose 302 H Calcium 8.0 L Phosphorus Magnesium 1.4 L Iron 28 L TIBC 216 L Iron Saturation 13.0 L Ferritin 895 H Total Bilirubin 0.70 Direct Bilirubin 0.31 H AST 37 ALT 124 H Alkaline Phosphatase 116 Troponin I < 0.015 Total Protein 6.4 Albumin 2.6 L Globulin 3.8 TSH Free T4 Free T3 pg/dL 3.0 Urine Color Urine Clarity Urine pH Ur Specific [place] Urine Protein Urine Glucose (UA) Urine Ketones Urine Occult Blood Urine Nitrite Urine Bilirubin Urine Urobilinogen Ur Leukocyte Esterase Urine RBC Urine WBC Ur Squamous Epith Cells Urine Bacteria Urine Mucus 06/21/19 06/21/19 06/22/19 17:00 18:03 05:44 WBC RBC Hgb Hct MCV MCH MCHC RDW Std Deviation RDW Coeff of Dottie Plt Count MPV Immature Gran % (Auto) Neut % (Auto) Lymph % (Auto) Wilson % (Auto) Eos % (Auto) Baso % (Auto) Absolute Neuts (auto) Absolute Lymphs (auto) Nucleated RBC % Sodium 143 Potassium 3.3 L Chloride 105 Carbon Dioxide 31.0 Anion Gap 7 BUN 16 Creatinine 1.31 H Estim Creat Clear Calc 38.94 Est GFR (MDRD) Af Amer 53 L Est GFR (MDRD) Non-Af 44 L BUN/Creatinine Ratio 12.2 Glucose 263 H Calcium 7.1 L Phosphorus 2.6 Magnesium Iron TIBC Iron Saturation Ferritin Total Bilirubin Direct Bilirubin AST ALT Alkaline Phosphatase Troponin I Total Protein Albumin Globulin TSH 1.04 Free T4 1.26 Free T3 pg/dL Urine Color Yellow Urine Clarity Clear Urine pH 7.0 Ur Specific [place] 1.005 Urine Protein Negative Urine Glucose (UA) Normal Urine Ketones Negative Urine Occult Blood Negative Urine Nitrite Negative Urine Bilirubin Negative Urine Urobilinogen Normal Ur Leukocyte Esterase Negative Urine RBC 0 SEEN Urine WBC 0 SEEN Ur Squamous Epith Cells 0 SEEN Urine Bacteria 0 SEEN Urine Mucus 0 SEEN 06/22/19 05:44 WBC RBC Hgb Hct MCV MCH MCHC RDW Std Deviation RDW Coeff of Dottie Plt Count MPV Immature Gran % (Auto) Neut % (Auto) Lymph % (Auto) Wilson % (Auto) Eos % (Auto) Baso % (Auto) Absolute Neuts (auto) Absolute Lymphs (auto) Nucleated RBC % Sodium Potassium Chloride Carbon Dioxide Anion Gap BUN Creatinine Estim Creat Clear Calc Est GFR (MDRD) Af Amer Est GFR (MDRD) Non-Af BUN/Creatinine Ratio Glucose Calcium Phosphorus Magnesium 1.7 Iron TIBC Iron Saturation Ferritin Total Bilirubin Direct Bilirubin AST ALT Alkaline Phosphatase Troponin I Total Protein Albumin Globulin TSH Free T4 Free T3 pg/dL Urine Color Urine Clarity Urine pH Ur Specific [place] Urine Protein Urine Glucose (UA) Urine Ketones Urine Occult Blood Urine Nitrite Urine Bilirubin Urine Urobilinogen Ur Leukocyte Esterase Urine RBC Urine WBC Ur Squamous Epith Cells Urine Bacteria Urine Mucus POC Glucose 06/22/19 06/22/19 06/21/19 11:40 06:42 22:17 POC Glucose 269 H 262 H 349 H 06/21/19 19:12 POC Glucose 285 H Medical Necessity - Tobacco Use Smoking Status: Former smoker Tobacco Use: Cigarettes Assessment/Plan All Active Problems (Last Reviewed 06/04/19 @ 00:44 by Jacob Landeros MD) Discitis of cervical region (Acute) 1. Debility - continue supportive care, pain management, PTOT. 2. CKDIII - stable. 3. Hypokalemia/hypomag- phos normal both still low after repletion, continue to replete and check in AM. 4. Recent DRESS syndrome - this was thought to be from Vancomycin. Long prednisone taper. Pt told the nurse she had not been taking the prednisone at home, and she told me she never followed up with dermatology as instructed. Bx showed nonspecific changes. 5. Hx Hep A and Hep C - mildly abnormal LFTs. Follow up with own ID physician as o/p Dr. Norton 6. DMt2 with obesity - dietary eval. As noted in HPI, she was prescribed pen needles at discharge, then came back to the ER stating she was not prescribed pen needles, was given pen needles, and again last night in the ER she stated that she has no insulin pen needles. Continue home diabetic regimen + SSI, started TID insulin. 7. HTN - severely elevated in the ER. Improving now. AntiHTN meds adjusted at last visit with concern for dress. Continue Norvasc at higher dose, home metoprolol. Further dose adjustment may be necessary if she continues to be elevated. 8. Discitis recently - completed vanco/rocephin. A repeat MRI was done last admission showing improvement and ID stopped her Abx. Needs to follow up with her own infectious disease specialist Dr. Norton as an outpatient. 9. Recent CVA - aspirin/statin continued. 10. Hx RA - complicating her debility. She takes no maintenance medications for this. 11. Normocytic anemia - complicating her debility. Thyroid studies normal. Iron deficient. Started on replacement. Stool occult blood pending. DVT ppx: heparin DC Planning: SNF vs Home with [facility]. This patient was seen by Deng Masterson PA-C under the supervision of Dr. Torrez
--- NOTE | 2019-06-22 13:34 | CASEMGMT ---
PT/OT evaluations were sent to [facility]. Await pre-cert. will notify patient. Plan: [facility] pending insurance approval. Bekah LOVELL
--- NOTE | 2019-06-22 13:41 | CASEMGMT ---
LU notified patient that her friend chose [facility] and [facility] can accept her. LU explained we are just waiting on her insurance to approve. Plan: [facility] pending insurance approval. Bekah LOVELL
[2019-06-22] MEDS: Iron Polysaccharide Complex 150 MG CAPSULE PO (13:48)
--- NOTE | 2019-06-22 16:06 | CHAPLAIN ---
two attempts made for visit and patient is sleeping each time; left a calling card
[2019-06-22 16:36] LABS: Bedside Glucose 379 mg/dL (70-110)
--- NOTE | 2019-06-22 20:50 | NURSING ---
VS and HS medications given early due to patient agitation at beginning of shift and requesting medications early.
[2019-06-22] MEDS: Atorvastatin Calcium 80 MG Tablet PO (20:58)
[2019-06-22] MEDS: ALPRAZolam 0.5 MG Tablet PO (21:11)
[2019-06-22 21:31] LABS: Bedside Glucose 402 mg/dL (70-110)
[2019-06-23] VITALS (20 sets, daily range): BP systolic 149–206; BP diastolic 44–93; PULSE 71–92; RESP 16–18; TEMP 36.8–37.1; O2SAT 99–100
[2019-06-23] MEDS: Heparin Injection (Vial) 5,000 UNIT/ML VIAL 5000 UNIT SC ×3 (05:36→21:27)
[2019-06-23] MEDS: hydrALAZINE 50 MG Tablet PO ×4 (05:37→23:52)
[2019-06-23 06:19] LABS: Prothrombin Time (Protime)PT. 12.8 SECONDS (11.7-14.9)
[2019-06-23] MEDS: Ipratropium/Albuterol Sulfate 3 ML AMPUL.NEB INHALATION ×2 (06:36→21:20)
[2019-06-23 06:39] LABS: Anion Gap 5 (5-15); BUN 19 mg/dL (7-18); BUN/Creat Ratio 12.8 RATIO (10-20); Calcium,Total 7.7 mg/dL (8.5-10.1); Chloride 104 mmol/L (98-107); Creatinine, Serum 1.48 mg/dL (0.55-1.02); EST Glomerular Filtration Rate 38 mL/min (>60); Est Glom Filt Rate - Afr Amer 46 mL/min (>60); Estimated Creatinine Clearance 34.47 ml/min; Glucose 326 mg/dL (74-106); Magnesium 2.2 mg/dL (1.6-2.6); Sodium Level 137 mmol/L (136-145)
[2019-06-23] MEDS: Insulin Lispro 100 UNIT/ML INSULN.PEN SC ×3 (08:57→17:07)
[2019-06-23] MEDS: predniSONE 20 MG Tablet PO (08:57)
[2019-06-23] MEDS: Insulin Lispro 100 UNIT/ML INSULN.PEN 12 UNIT SC (08:57)
[2019-06-23] MEDS: Aspirin 81 MG TAB.CHEW PO (08:58)
[2019-06-23] MEDS: Iron Polysaccharide Complex 150 MG CAPSULE PO (08:58)
[2019-06-23] MEDS: Triamcinolone 0.5% Cream 1 APPLIC TOPICAL ×2 (09:03→21:26)
[2019-06-23] MEDS: Metoprolol Tartrate 25 MG Tablet PO ×2 (09:03→21:26)
[2019-06-23 09:11] LABS: Bedside Glucose 275 mg/dL (70-110)
--- NOTE | 2019-06-23 11:47 | CASEMGMT ---
SW went to patient's room to let her know we are waiting on her insurance to approve her to go to [facility]. She then raised her voice and said something along the lines of why won't my insurance take care of me so I can get to the halfway so I can get better and go home. LU empathized with her and said it is frustrating to wait on insurance. LU commended her for her enthusiasm to get to the halfway to get better so she can go home. LU promised her that SW will let her know as soon as LU hears from insurance. Bekah SAMAYOA SALES COACH
[2019-06-23] MEDS: Insulin Lispro 100 UNIT/ML INSULN.PEN 16 UNIT SC ×2 (12:04→17:07)
--- NOTE | 2019-06-23 12:04 | PCM.EXTCARCO ---
<Deng Masterson - Last Filed: 06/23/19 14:52> - Diet 06/21/19 18:46 Diet: Cardiac: Calorie-Controlled Is pt able to select menu?: No How many daily calories?: 1600 calorie - Routine Orders/Code Status Suppository Type: Dulcolax 10mg Suppository Frequency: Daily PRN Routine Lab Work: CBC - 5 days, BMP - 5 days Code Status: Full Code - Therapies Physical Therapy: Eval and Treat Occupational Therapy: Eval and Treat - Problem/Diagnosis (1) Debility Status: Chronic Current Visit: Yes (2) DRESS syndrome Status: Chronic Current Visit: No (3) Acute CVA (cerebrovascular accident) Status: Chronic Current Visit: No (4) Asthma exacerbation Status: Chronic Current Visit: No (5) Rheumatoid arthritis Status: Chronic Current Visit: No (6) Hypertensive emergency Status: Chronic Current Visit: No (7) Type II diabetes mellitus Status: Chronic Current Visit: No (8) Hypertension Status: Chronic Current Visit: No - Allergies/Procedures Done in Hospital Allergies/Adverse Reactions: Allergies ceftriaxone Allergy (Severe, Verified 06/21/19 16:06) Rash vancomycin Allergy (Severe, Verified 06/21/19 16:06) Rash Penicillins Allergy (Verified 06/21/19 16:06) Swelling oxycodone HCl [From Percocet] Adverse Reaction (Verified 06/21/19 16:06) Itching Procedures: None - Type of Care/Length of Stay Estimated LOS: Convalescent Care Less Than 30 days Type of Care Needed: Skilled Rehab Potential: Fair Prognosis: Fair - Additional Orders/Day of Discharge Day of Discharge: 06/23/19 - Dietary and Speech Recommendations Dietitian Recommendations/Changes: Rec diet change to CHO Control/Cardiac. Will order glucerna shake 120 cc 4x/day at [employer] for increased nutrition if consumed - Follow Up Care Primary Care Physician: Prince Cummins, [Primary Care Provider] - Please follow up with your Primary Care Physician in: 2 weeks Please Follow Up With: [facility] - Dermatology When: 1-2 weeks Please Follow Up With: Errol - Infectious disease When: 2 weeks <Faye Blount - Last Filed: 06/24/19 10:23> - Diet 06/21/19 18:46 Diet: Cardiac: Calorie-Controlled Is pt able to select menu?: No How many daily calories?: 1600 calorie - Suggestions for Active Care Change Position every (hours): 2 Times a day to sit in chair: 3 - Additional Orders/Day of Discharge H&P will serve as current which was dated: 06/21/19 Day of Discharge: 06/24/19
[2019-06-23 12:10] LABS: Bedside Glucose 187 mg/dL (70-110)
--- NOTE | 2019-06-23 12:26 | PHA.DC.MR ---
Pharmacy Service has performed discharge medication reconciliation for this patient. Home Medications Ipratropium/Albuterol Sulfate [Duoneb] 3 ml INHALATION Q6HWA.RT ampul.neb 04/27/19 Albuterol Sulfate [Ventolin Hfa] 2 puff INHALATION Q6H PRN PRN 06/03/19 Atorvastatin Calcium [Lipitor] 80 mg PO QHS 06/21/19 Metoprolol Tartrate [Lopressor (beta nat)] 25 mg PO BID 06/21/19 Acetaminophen [Tylenol Tablet] 650 mg PO Q6H PRN PRN tab 06/23/19 Aspirin [Aspirin, Baby] 81 mg PO DAILY@0800 tab.chew 06/23/19 Insulin Glargine [Lantus SoloStar Pen] 20 units SUBCUT HS pen 06/23/19 Insulin Lispro [Humalog KwikPen] 12 unit SUBCUT BREAKFAST insuln.pen 06/23/19 Insulin Lispro [Humalog KwikPen] 16 unit SUBCUT DINNER insuln.pen 06/23/19 Insulin Lispro [Humalog KwikPen] 16 unit SUBCUT LUNCH insuln.pen 06/23/19 Iron Polysaccharide Complex [Ferrex 150] 150 mg PO DAILYCM cap 06/23/19 Menthol [Bengay Vanishing Scent] 1 applic TOPICAL Q4H PRN PRN tube 06/23/19 Triamcinolone 0.5% Cream [Kenalog] 1 applic TOPICAL BID tube 06/23/19 hydrALAZINE [Apresoline] 50 mg PO TID tab 06/23/19 predniSONE tablet 20 mg PO DAILY@0800 tab 06/23/19 The patient's discharge medication list was reviewed for discrepancies and discrepancies were resolved.
--- NOTE | 2019-06-23 13:07 | CHAPLAIN ---
Type of Pastoral Visit _x__ Initial Visit ___ Follow-up Visit ___ On-call Visit ___ General Patient Visit ___ Spiritual Assessment ___ Family Conference ___ Bereavement ___ Rapid Response ___ Code Blue ___ Other (describe below) Pastoral Care Referral From _x__ Patient ___ Family ___ Nurse ___ Physician ___ Air Transportation Provider ___ Metaphysics Teacher ___ Other (describe below) Sacrament/Intervention _x__ Active listening ___ Anointing ___ Anglican ___ Bereavement ___ Communion ___ Analisa exploration ___ _x__ Life review _x__ Prayer ___ Reconciliation ___ Sacrament of Sick _x__ Supportive presence ___ Wedding ___ Other (describe below) Pastoral Comments
--- NOTE | 2019-06-23 14:01 | CON.PCM_ITS ---
Reason for Consult: hep C Consulted by: Dr. Torrez History of Present Illness: The patient is a 63 year old F with rheumatoid arthritis, recent admit for DRESS while on iv abx for cx-neg cervical osteo/discitis. Presented with weakness, unable to care for herself at home. No fever, no new pain, no n/v/d, no cough or SOB. Has h/o hep C, no prior treatment. Full ROS performed and neg except as noted above. Rash much improved, still some on legs. - Medical History Past Medical History (Chronic Problems): Chronic Problems (Last Reviewed 06/04/19 @ 00:44 by Jacob Landeros MD) DRESS syndrome (Chronic) Debility (Chronic) Acute CVA (cerebrovascular accident) (Chronic) Asthma exacerbation (Chronic) Elevated liver enzymes (Chronic) Diabetes (Chronic) Rheumatoid arthritis (Chronic) Hypertensive emergency (Chronic) Type II diabetes mellitus (Chronic) Hypertension (Chronic) Allergies/Adverse Reactions: Allergies ceftriaxone Allergy (Severe, Verified 06/21/19 16:06) Rash vancomycin Allergy (Severe, Verified 06/21/19 16:06) Rash Penicillins Allergy (Verified 06/21/19 16:06) Swelling oxycodone HCl [From Percocet] Adverse Reaction (Verified 06/21/19 16:06) Itching Home Medications: Ambulatory Orders Medication Instructions Recorded Ipratropium/Albuterol Sulfate 3 ml INHALATION Q6HWA.RT ampul.neb 04/27/19 [Duoneb] Albuterol Sulfate [Ventolin Hfa] 2 puff INHALATION Q6H PRN PRN 06/03/19 Atorvastatin Calcium [Lipitor] 80 mg PO QHS 06/21/19 Metoprolol Tartrate [Lopressor 25 mg PO BID 06/21/19 (beta nat)] Acetaminophen [Tylenol Tablet] 650 mg PO Q6H PRN PRN tab 06/23/19 Aspirin [Aspirin, Baby] 81 mg PO DAILY@0800 tab.chew 06/23/19 Insulin Glargine [Lantus SoloStar 20 units SUBCUT HS pen 06/23/19 Pen] Insulin Lispro [Humalog KwikPen] 12 unit SUBCUT BREAKFAST 06/23/19 insuln.pen Insulin Lispro [Humalog KwikPen] 16 unit SUBCUT DINNER insuln.pen 06/23/19 Insulin Lispro [Humalog KwikPen] 16 unit SUBCUT LUNCH insuln.pen 06/23/19 Iron Polysaccharide Complex 150 mg PO DAILYCM cap 06/23/19 [Ferrex 150] Menthol [Bengay Vanishing Scent] 1 applic TOPICAL Q4H PRN PRN tube 06/23/19 Triamcinolone 0.5% Cream [Kenalog] 1 applic TOPICAL BID tube 06/23/19 hydrALAZINE [Apresoline] 50 mg PO TID tab 06/23/19 predniSONE tablet 20 mg PO DAILY@0800 tab 06/23/19 - Social History SMOKING STATUS:: Former smoker Vital Signs Temp Pulse Resp BP Pulse Ox 98.8 F 92 16 149/93 H 100 06/23/19 08:50 06/23/19 09:03 06/23/19 08:50 06/23/19 09:03 06/23/19 08:50 Oxygen Delivery Method Room Air Weight: 84.2 kg Body Mass Index (BMI) 31.6 Finger Stick Blood Glucose 595 Laboratory Tests Past 24 Hrs 06/22/19 06/23/19 06/23/19 05:44 05:53 05:53 PT 12.8 INR 1.0 Sodium 137 Potassium 4.0 Chloride 104 Carbon Dioxide 28.0 Anion Gap 5 BUN 19 H Creatinine 1.48 H Estim Creat Clear Calc 34.47 Est GFR (MDRD) Af Amer 46 L Est GFR (MDRD) Non-Af 38 L BUN/Creatinine Ratio 12.8 Glucose 326 H Calcium 7.7 L Magnesium 2.2 Vit D 1,25-Dihydroxy Pending - Other Studies Radiology: [] reviewed Other Studies: [] Route of nutrition/ use of supplements: [] Nutritional Intake: [] IV Site: [] Gudino Catheter: [] - Physical Exam General: Alert, Oriented x3, Cooperative, No apparent distress HEENT: Atraumatic, PERRLA, EOMI Neck: Supple, No Nodes Lungs: Clear to auscultation, Normal air movement Cardiovascular: Regular rate, Regular Rhythm Abdomen: Soft, Non Tender, Non-Distended Extremities: No edema Skin: - - dry scaling rash on BLE IV Site: Peripheral Musculoskeletal: No Tenderness to Palpation of Joints or Extremities Neurological: Cranial nerves II-XII grossly intact - Assessment/Plan Antibiotics: [] Assessment/Plan: [] Chronic hep C - genotype 1a. No prior treatment. If she can be compliant with appts and medications, plan will be for outpt followup and treatment. She thinks she was referred to see someone in [place] for it. She can see me in the next few weeks to start the process. Thank you, will follow, d/w Dr. Torrez.
--- NOTE | 2019-06-23 14:53 | PCM.PROGNOTE ---
<Deng Masterson - Last Filed: 06/23/19 14:53> Subjective: No acute issues. Knee pain much improved today. Weakness improved. She has ambulated with her walker well with PT/OT today. No LH/dizziness. No N/V. - Physical Exam General: Alert, Oriented x3, Cooperative HEENT: Atraumatic, PERRLA, EOMI, Normocephalic Neck: Supple, No JVD, Negative Carotid Bruits Lungs: Clear to auscultation, Normal air movement Cardiovascular: Regular rate, No murmurs Abdomen: Bowel Sounds Present, Soft, Non Tender Extremities: No edema, Capillary Refill Less than 3 Seconds Skin: No rashes, No breakdown, Rash Present - no significant change Musculoskeletal: No Tenderness to Palpation of Joints or Extremities Neurological: Cranial nerves II-XII grossly intact Psych/Mental Status: Normal Affect, Appropriate, Alert and oriented to time, place, person, mood and affect Vital Signs Temp Pulse Resp BP Pulse Ox 98.8 F 92 16 149/93 H 100 06/23/19 08:50 06/23/19 09:03 06/23/19 08:50 06/23/19 09:03 06/23/19 08:50 Oxygen Delivery Method Room Air Weight: 185 lb 10.067 oz Body Mass Index (BMI) 31.6 Finger Stick Blood Glucose 595 Intake and Output for Last 24 Hours 06/21/19 06/22/19 06/23/19 23:59 23:59 23:59 Intake Total 1290 / 1290 3318 / 3318 920 / 920 Balance 1290 / 1290 3318 / 3318 920 / 920 Laboratory Tests Past 24 Hrs 06/23/19 06/23/19 05:53 05:53 PT 12.8 INR 1.0 Sodium 137 Potassium 4.0 Chloride 104 Carbon Dioxide 28.0 Anion Gap 5 BUN 19 H Creatinine 1.48 H Estim Creat Clear Calc 34.47 Est GFR (MDRD) Af Amer 46 L Est GFR (MDRD) Non-Af 38 L BUN/Creatinine Ratio 12.8 Glucose 326 H Calcium 7.7 L Magnesium 2.2 POC Glucose 06/23/19 06/23/19 06/22/19 11:59 08:55 20:55 POC Glucose 187 H 275 H 402 H 06/22/19 16:28 POC Glucose 379 H Medical Necessity - Tobacco Use Smoking Status: Former smoker Tobacco Use: Cigarettes Assessment/Plan All Active Problems (Last Reviewed 06/04/19 @ 00:44 by Jacob Landeros MD) DRESS syndrome (Resolved) Acute on chronic anemia (Acute) Discitis of cervical region (Resolved) 1. Debility - continue supportive care, pain management, PTOT. 2. CKDIII - stable. 3. Hypokalemia/hypomag- phos normal both still low after repletion, continue to replete and check in AM. 4. Recent DRESS syndrome - this was thought to be from Vancomycin. Long prednisone taper. Pt told the nurse she had not been taking the prednisone at home, and she told me she never followed up with dermatology as instructed. Bx showed nonspecific changes. 5. Hx Hep A and Hep C - mildly abnormal LFTs. ID saw and suggests follow up withing next few weeks for possible treatment of chronic Hep C. 6. DMt2 with obesity - continue to titrate insulin therapy. 7. HTN - severely elevated in the ER. Improving now. AntiHTN meds adjusted at last visit with concern for dress. Continue Norvasc at higher dose, home metoprolol. Further dose adjustment may be necessary if she continues to be elevated. 8. Discitis recently - completed vanco/rocephin. A repeat MRI was done last admission showing improvement and ID stopped her Abx. Needs to follow up with her own infectious disease specialist Dr. Norton as an outpatient. 9. Recent CVA - aspirin/statin continued. 10. Hx RA - complicating her debility. She takes no maintenance medications for this. 11. Normocytic anemia - complicating her debility. Thyroid studies normal. Iron deficient. Started on replacement. Stool occult blood pending. DVT ppx: heparin DC Planning: SNF This patient was seen by Deng Masterson PA-C under the supervision of Dr. Torrez <Shirley Torrez - Last Filed: 06/30/19 23:22> - Physical Exam Vital Signs Temp Pulse Resp BP Pulse Ox 98.9 F 98 16 152/71 H 99 06/24/19 09:17 06/24/19 09:18 06/24/19 09:17 06/24/19 09:18 06/24/19 09:17 Oxygen Delivery Method Room Air Weight: 185 lb 10.067 oz Body Mass Index (BMI) 31.6 Finger Stick Blood Glucose 595 Assessment/Plan The pt was seen independently and in conjunction with Deng. She is quite agitated this afternoon and screaming she is not going to a NH. Her [place] is in [place] [facility] and she is not capable of caring for herself. Her dtr is in the room and she just shakes her head...she realizes this is the best option for her mother at this time. she did not fill her prescriptions and did not follow up with dermatology. The DRESS rash is doing better.......no desquamation and no raised lesions. Mild erythema only. I agree with the PE as documented by Deng. continue the current tx. Transfer to SNF when we receive pre-certification from the insurance company. discussed with Deng and orders have been written. Code Visit Inpatient E&M: 17554 Subs Hosp L2
--- NOTE | 2019-06-23 15:54 | CASEMGMT ---
Patient was upset again and yelling that she wants to get out of here. SW explained to her again we are waiting on insurance to approve her. LU told her SW understands it is frustrating sitting here waiting when she wants to start her rehab. LU told her a lot of the insurances take a day or two to approve patients and that can be very frustrating. LU told her no one forgot about her it is just taking awhile. She was calmed down for the moment. LU did call [facility] and left a message for Laura asking her to call U if she gets pre-cert. LU left a green sheet on chart. Bekah SAMAYOA MSW
[2019-06-23] MEDS: Acetaminophen 325 MG Tablet 650 MG PO (17:07)
[2019-06-23 17:36] LABS: Bedside Glucose 289 mg/dL (70-110)
[2019-06-23] MEDS: Atorvastatin Calcium 80 MG Tablet PO (21:26)
[2019-06-23] MEDS: DiphenhydrAMINE 25 MG Capsule PO (21:29)
--- NOTE | 2019-06-23 21:56 | EKG12_ITS ---
Test Reason : CP Blood Pressure : / mmHG Vent. Rate : 091 BPM Atrial Rate : 091 BPM P-R Int : 158 ms QRS Dur : 080 ms QT Int : 384 ms P-R-T Axes : 054 056 034 degrees QTc Int : 472 ms Normal sinus rhythm Normal ECG When compared with ECG of 21-JUN-2019 16:41, Nonspecific T wave abnormality no longer evident in Anterior leads Confirmed by SRIKANTH PIZARRO, RENE ([id number]), food editor TRIP TORRE ([id number]) on 06/30/2019 10:15:10 AM Referred By: DR LOVING Confirmed By:JHONY DUKE MD
--- NOTE | 2019-06-23 21:58 | NURSING ---
mixing machine tender cork rod notified this RN that pt called out c/o chest pressure. Upon assessment, pt c/o 10/10 midsternal chest pressure that does not radiate. VS taken. NABIL Sofia notified requesting a STAT EKG. Will notify MD with results.
[2019-06-23 22:06] LABS: Bedside Glucose 217 mg/dL (70-110)
[2019-06-23] MEDS: Isosorbide DN 10 MG Tablet PO (23:53)
[2019-06-24] VITALS (7 sets, daily range): BP systolic 152–161; BP diastolic 71–74; PULSE 71–98; RESP 14–16; TEMP 36.7–37.2; O2SAT 96–99
[2019-06-24] MEDS: hydrALAZINE 50 MG Tablet 100 MG PO (05:33)
[2019-06-24] MEDS: Heparin Injection (Vial) 5,000 UNIT/ML VIAL 5000 UNIT SC (05:33)
[2019-06-24] MEDS: Isosorbide DN 10 MG Tablet PO (05:33)
[2019-06-24 06:23] LABS: Amphetamine Urine VISTA NEGATIVE (<1000 ng/mL); Barbiturate Urine VISTA NEGATIVE (< 200 ng/mL); Benzodiazepine Urine VISTA NEGATIVE (< 200 ng/mL); Cocaine Urine VISTA NEGATIVE (< 300 ng/mL); Ecstacy Urine VISTA NEGATIVE (< 500 ng/mL); Methadone Urine VISTA NEGATIVE (< 300 ng/mL); PCP Urine VISTA NEGATIVE (< 25 ng/mL); THC Urine VISTA NEGATIVE (< 50 ng/mL); Vista UDS pH Range 6
[2019-06-24] MEDS: Insulin Lispro 100 UNIT/ML INSULN.PEN 12 UNIT SC (08:57)
[2019-06-24] MEDS: Aspirin 81 MG TAB.CHEW PO (08:57)
[2019-06-24] MEDS: predniSONE 20 MG Tablet PO (08:57)
[2019-06-24] MEDS: Iron Polysaccharide Complex 150 MG CAPSULE PO (08:58)
[2019-06-24] MEDS: Metoprolol Tartrate 25 MG Tablet PO (09:18)
[2019-06-24] MEDS: Triamcinolone 0.5% Cream 1 APPLIC TOPICAL (09:18)
[2019-06-24 10:05] LABS: Bedside Glucose 147 mg/dL (70-110)
--- NOTE | 2019-06-24 10:23 | PCM.DC.SUM ---
<Faye Blount - Last Filed: 06/24/19 10:37> Discharge Date and Diagnosis Date of Admission: 06/21/19 Date of Discharge: 06/24/19 - Primary Discharge Diagnosis 1. Physical debility 2. Electrolyte imbalance with hypokalemia and hypomagnesia 3. Recent DRESS syndrome 4. Recent Discitis 5. History of hepatitis A and hepatitis C with abnormal LFTs 6. Chronic kidney disease stage III 7. Type 2 diabetes mellitus 8. Hypertension 9. Recent CVA 10. Questionable history of RA? 11. Normocytic anemia, iron deficiency anemia - Secondary Discharge Diagnosis Chronic Problems (Last Reviewed 06/04/19 @ 00:44 by Jacob Landeros MD) DRESS syndrome (Chronic) Debility (Chronic) Acute CVA (cerebrovascular accident) (Chronic) Asthma exacerbation (Chronic) Elevated liver enzymes (Chronic) Diabetes (Chronic) Rheumatoid arthritis (Chronic) Hypertensive emergency (Chronic) Type II diabetes mellitus (Chronic) Hypertension (Chronic) Hospital Course and Treatment Imaging Results: Diagnostic Data Chest X-Ray 06/21/19 16:22 IMPRESSION: Normal x-ray examination of the chest. Electronically Signed: Ronnell Delcid MD at 17:18 EDT , Service support , Dr. Galicia- ID Operations: None Procedures: None Summary of Care Provided: The patient is a 63 year old F admitted 06/21/2019 due to unable to walk. 1. Physical debility-PT/OT. SNF [place]. 2. Electrolyte imbalance with hypokalemia and hypomagnesia-replace per protocol. 3. Recent DRESS syndrome-secondary to vancomycin. Rash resolved. Previously on prednisone taper which she had not been taking. Continue topical steroids. 4. Recent Discitis-completed treatment at [facility]. 5. History of hepatitis A and hepatitis C with abnormal [id number] with infectious disease in 3 weeks. 6. Chronic kidney disease stage III-at baseline. 7. Type 2 diabetes mellitus-continue home insulin regimen. 8. Hypertension-stable, continue metoprolol regimen. 9. Recent CVA-continue aspirin, statin. 10. Questionable history of RA? RA less than 10, on no medications? 11. Normocytic anemia, iron deficiency anemia-continue iron supplementation. General: Alert, Oriented x3, Cooperative HEENT: Atraumatic, PERRLA, EOMI, Normocephalic Neck: Supple, No JVD, Negative Carotid Bruits Lungs: Clear to auscultation, Normal air movement Cardiovascular: Regular rate, No murmurs Abdomen: Bowel Sounds Present, Soft, Non Tender Extremities: No edema, Capillary Refill Less than 3 Seconds Skin: No rashes, No breakdown, Rash Present - no significant change Musculoskeletal: No Tenderness to Palpation of Joints or Extremities Neurological: Cranial nerves II-XII grossly intact Psych/Mental Status: Normal Affect, Appropriate Patient seen and examined prior to discharge. Physical assessment as noted above. Patient is stable for discharge with follow up recommendations as noted above. This patient was seen by [facility] under the supervision of Dr. Torrez. - Physical Exam Vital Signs Temp Pulse Resp BP Pulse Ox 98.9 F 98 16 152/71 H 99 06/24/19 09:17 06/24/19 09:18 06/24/19 09:17 06/24/19 09:18 06/24/19 09:17 Oxygen Delivery Method Room Air Weight: 185 lb 10.067 oz Body Mass Index (BMI) 31.6 Finger Stick Blood Glucose 595 Intake and Output for Last 24 Hours 06/22/19 06/23/19 06/24/19 23:59 23:59 23:59 Intake Total 3318 / 3318 2480 / 2880 500 / 500 Output Total 300 / 300 Balance 3318 / 3318 2480 / 2880 200 / 200 Laboratory Tests Past 24 Hrs 06/23/19 06/24/19 06/24/19 05:50 00:10 05:50 Troponin I < 0.015 Urine Opiates Screen Cancelled NEGATIVE Urine Methadone Screen Cancelled NEGATIVE Ur Barbiturates Screen Cancelled NEGATIVE Ur Phencyclidine Scrn Cancelled NEGATIVE Ur Amphetamines Screen Cancelled NEGATIVE U Methamphetamin-MDMA Cancelled NEGATIVE U Benzodiazepines Scrn Cancelled NEGATIVE Urine Cocaine Screen Cancelled NEGATIVE U Cannabinoids Screen Cancelled NEGATIVE Ur Drug Screen Comment Cancelled POC Glucose 06/24/19 06/23/19 06/23/19 08:55 21:23 17:05 POC Glucose 147 H 217 H 289 H 06/23/19 11:59 POC Glucose 187 H Home Medications: Medications to take at Discharge Ipratropium/Albuterol Sulfate [Duoneb] 3 ml INHALATION Q6HWA.RT ampul.neb 04/27/19 Atorvastatin Calcium [Lipitor] 80 mg PO QHS 06/21/19 Aspirin [Aspirin, Baby] 81 mg PO DAILY@0800 tab.chew 06/23/19 Insulin Lispro [Humalog KwikPen] 12 unit SUBCUT BREAKFAST insuln.pen 06/23/19 Iron Polysaccharide Complex [Ferrex 150] 150 mg PO DAILYCM cap 06/23/19 Triamcinolone 0.5% Cream [Kenalog] 1 applic TOPICAL BID tube 06/23/19 Insulin Glargine,Hum.rec.anlog [Basaglar Kwikpen U-100] 20 unit SQ QHS 06/25/19 Insulin Lispro [Admelog Solostar] 16 unit SQ BID 06/25/19 Insulin Lispro [Humalog KwikPen] 16 unit SUBCUT BID 06/25/19 Mag Hydrox/Aluminum Hyd/Simeth [Antacid Suspension] 30 ml PO Q4H PRN PRN 06/25/19 Carvedilol [Coreg (Beta Filomena)] 12.5 mg PO BID #60 tab 06/29/19 Lisinopril [Zestril] 10 mg PO DAILY #30 tab 06/29/19 hydrALAZINE [Apresoline] 100 mg PO TID #90 tab 06/29/19 Primary Care Physician: Prinec Cummins DO [Primary Care Provider] - Please follow up with your Primary Care Physician in: 2 weeks Please Follow Up With: [facility] - Dermatology When: 1-2 weeks Please Follow Up With: Errol - Infectious disease When: 2 weeks Disposition: [facility] facility Minutes spent on discharge:: 35 Patient Condition:: Stable Medical Necessity - Tobacco Use Smoking Status: Former smoker Tobacco Use: Cigarettes Meaningful Use Info Meaningful Use Diagnoses (Choose all that apply): None applicable <Shirley Torrezerine - Last Filed: 07/01/19 15:14> Discharge Date and Diagnosis - Secondary Discharge Diagnosis Chronic Problems (Last Reviewed 06/04/19 @ 00:44 by Jacob Landeros MD) Debility (Chronic) Acute CVA (cerebrovascular accident) (Chronic) Asthma exacerbation (Chronic) Elevated liver enzymes (Chronic) Diabetes (Chronic) Rheumatoid arthritis (Chronic) Hypertensive emergency (Chronic) Type II diabetes mellitus (Chronic) Hypertension (Chronic) Hospital Course and Treatment Summary of Care Provided: The pt is a 63 YOF recently discharged from the hospital with a dx of DRESS. She normally lives with her son however, he is currently in detention and she is unable to care for herself. She failed to fill any of her prescriptions and has not been taking her insulin. She has not been taking the Prednisone prescribed for DRESS. She had hypomag and hypophos at admission and these were supplemented and resolved. She is going to be discharged to an SNF for PT/OT prior to returning home. she does not seem mentally able to care for herself and if there is no family able to step up and care for her she may in the future need an ECF I agree with the PE as documented by Faye with no exceptions. Impressions 1. generalized weakness and debility 2. non-compliance with medications and with physician follow up 3. recent DRESS 4. Hypomagnesemia and hypophosphatemia - resolved with supplementation. DC to SNF. discussed with Faye and orders have been written. - Physical Exam Vital Signs Temp Pulse Resp BP Pulse Ox 98.9 F 98 16 152/71 H 99 06/24/19 09:17 06/24/19 09:18 06/24/19 09:17 06/24/19 09:18 06/24/19 09:17 Oxygen Delivery Method Room Air Weight: 185 lb 10.067 oz Body Mass Index (BMI) 31.6 Finger Stick Blood Glucose 595
--- NOTE | 2019-06-24 10:46 | CASEMGMT ---
Received insurance approval for patient. SW let patient know this information and she told SW to call [facility] to see if she could transport patient. LU called [facility] and she said she is busy today and is not able to transport patient. LU called [employer] (company who arranges transport for [facility] members). They will work on transport and let SW know when they have a time. Await orders to fax and call back regarding nut picker time. Bekah SAMAYOA MSW
--- NOTE | 2019-06-24 11:36 | CASEMGMT ---
Addendum entered by Bekah Hercules 06/24/19 12:37: SW notified patient's friend, [facility] that patient is on her way to [facility]. Bekah LOVELL Original Note: [employer] called the nurses station and said [place] will be here in 20 minutes to order picker patient. [place] notified RN. WORK ORDER CLERK notified patient. SW faxed orders to [facility]. PASRR was completed on [facility] as patient was observation status. Sis transported patient via [employer] van and this was arranged through [employer] who take care of transport for [facility]. Plan; d/c to [facility] under skilled level of care on a PASRR as she was observation status in the hospital. [facility] transported [facility] van. Bekah SAMAYOA MSW
--- NOTE | 2019-06-24 11:39 | NURSING ---
Called report to Aydee at [facility] at this time -given my direct line
== END 2019-06-24 10:29 | disposition skilled nursing facility (03) ==
LOC: ED 16:22 → PCU 18:18
PROVIDERS: Internal Medicine; Physician Assistant; Admitting Provider Family Medicine; Emergency Provider Emergency Medicine; Family Provider Family Medicine; PCP Family Medicine; Visit Provider Internal Medicine
DX: E87.6 Hypokalemia (principal); E83.42 Hypomagnesemia; E11.22 Type 2 diabetes mellitus with diabetic chronic kidney disease; I12.9 Hypertensive chronic kidney disease with stage 1 through stage 4 chronic kidney disease, or unspecified chronic kidney disease; N18.3 Chronic kidney disease, stage 3 (moderate); Z86.19 Personal history of other infectious and parasitic diseases; Z79.899 Other long term (current) drug therapy; Z79.4 Long term (current) use of insulin; J45.909 Unspecified asthma, uncomplicated; M06.9 Rheumatoid arthritis, unspecified; Z86.73 Personal history of transient ischemic attack (TIA), and cerebral infarction without residual deficits; M25.562 Pain in left knee; M25.561 Pain in right knee; E11.65 Type 2 diabetes mellitus with hyperglycemia; Z91.14 Patient's other noncompliance with medication regimen; D64.9 Anemia, unspecified; E66.9 Obesity, unspecified; Z68.31 Body mass index [BMI] 31.0-31.9, adult; Z71.3 Dietary counseling and surveillance; Z79.52 Long term (current) use of systemic steroids; Z87.891 Personal history of nicotine dependence
CPT/HCPCS: 36415; 71045; 80048; 80076; 80307; 81001; 82652; 82728; 82962; 83540; 83550; 83735; 84100; 84439; 84443; 84481; 84484; 85025; 85610; 93005; 94640; 97116; 97162; 97166; 97530; 97802; 99285; J7030; A4216; J2405

== ENCOUNTER 2019-06-25 17:44 | Inpatient (IN) | payer MEDICAID, SELFPAY ==
[2019-06-21 18:42] VITALS: BMI 31.6
[2019-06-25 17:45] VITALS: BP 215/86; PULSE 117; RESP 16; TEMP 37.1; O2SAT 100; BMI 34.2
--- NOTE | 2019-06-25 18:52 | EKG12_ITS ---
Test Reason : DYSRHYTHMIA Blood Pressure : / mmHG Vent. Rate : 091 BPM Atrial Rate : 091 BPM P-R Int : 170 ms QRS Dur : 082 ms QT Int : 372 ms P-R-T Axes : 000 059 027 degrees QTc Int : 457 ms Normal sinus rhythm Normal ECG When compared with ECG of 23-JUN-2019 22:06, MANUAL COMPARISON REQUIRED, DATA IS UNCONFIRMED Confirmed by SRIKANTH PIZARRO, RENE ([id number]), market editor TRIP TORRE ([id number]) on 06/30/2019 9:16:36 AM Referred By: Deni Gleason Confirmed By:JHONY DUKE MD
--- NOTE | 2019-06-25 18:54 | ED.VIS.GEN ---
History of Present Illness Chief Complaint: Abn Labs Informant: Patient Onset: Today Context: - - unknown Narrative: She is a 63-year-old female with history of recent stroke, currently in rehab, and hypertension team from acute rehab for abnormal lab values. Patient had routine blood work which showed that she had a hemoglobin of 6.8. Patient denies any history of anemia or any bleeding. She denies any black or bloody stools. She states she feels fine. She does not recall what her deficits were with her stroke but states that she was just weak and had trouble doing things. She denies any other complaints at this time. Patient states she wants to get better because she is taking care of her 14-year-old granddaughter. Patient denies any history of blood transfusion. She denies any other complaints at this time any chest pain, shortness of breath or difficulty breathing. Past Medical History - Allergies and Home Meds Allergies/Adverse Reactions: Allergies ceftriaxone Allergy (Severe, Verified 06/25/19 17:48) Rash vancomycin Allergy (Severe, Verified 06/25/19 17:48) Rash Penicillins Allergy (Verified 06/25/19 17:48) Swelling oxycodone HCl [From Percocet] Adverse Reaction (Verified 06/25/19 17:48) Itching Prior records reviewed: Yes Past Medical History: - - History of stroke, RA, DM, hypertension, DRESS, hepatitis a/C, hyperlipidemia Surgical History: - Smoking Status: Former smoker - Family History Maternal Family History: Family History (Last Reviewed 06/04/19 @ 00:46 by Jacob Landeros MD) Mother Hypertension Emphysema/COPD Sister Hypertension Family History: Reports: No pertinent history Paternal Family History: Family History (Last Reviewed 06/04/19 @ 00:46 by Jacob Landeros MD) Mother Hypertension Emphysema/COPD Sister Hypertension Family History: Reports: No pertinent history Review of Systems All systems negative except as indicated General: Reports: - - Denies any physical complaints Physical Exam Vital Signs/Narrative: Vital Signs Temp Pulse Resp BP Pulse Ox 06/25/19 17:45 98.8 F 117 H 16 215/86 H 100 Inital Vital Signs reviewed: Yes General: Well nourished, Well developed, No Acute Distress Head: Normocephalic, Atraumatic Eyes: Perrl, EOMI ENT: Moist mucous membranes, No rhinorrhea Neck: Supple, Nontender Cardiovascular: Regular rate, Regular rhythm, No murmurs Respiratory: No distress, CTA bilaterally, Chest nontender Abdomen: Soft, Nontender, Nondistended, Normal bowel sounds Rectal: Guaiac negative, Nontender, - - No gross blood/melena on rectal exam Back: Nontender, Normal Inspection Extremities: Nontender, No edema Skin: Normal color, No rash Neurological: Alert, Oriented x3, Cranial nerves II-XII grossly intact, Normal Strength, Normal Sensation Psychological: Normal affect, Normal Mood Diagnostic/Tx/Re-eval Laboratory Data 06/25/19 06/25/19 06/25/19 18:45 18:45 18:45 WBC 6.3 RBC 2.71 L Hgb 7.8 L Hct 25.0 L MCV 92.3 MCH 28.8 MCHC 31.2 L RDW Std Deviation 47.3 H RDW Coeff of Dottie 14.1 Plt Count 160 MPV 9.9 Immature Gran % (Auto) 2.100 H Neut % (Auto) 61.1 Lymph % (Auto) 27.8 [place] % (Auto) 8.5 Eos % (Auto) 0.2 Baso % (Auto) 0.3 Absolute Neuts (auto) 3.8 Absolute Lymphs (auto) 1.74 Nucleated RBC % 0.3 PT 12.0 INR 0.9 APTT 24.3 Sodium 142 Potassium 3.9 Chloride 105 Carbon Dioxide 31.0 Anion Gap 6 BUN 21 H Creatinine 1.42 H Estim Creat Clear Calc 35.93 Est GFR (MDRD) Af Amer 48 L Est GFR (MDRD) Non-Af 40 L BUN/Creatinine Ratio 14.8 Glucose 85 Calcium 8.7 Blood Type Antibody Screen Crossmatch 06/25/19 06/25/19 18:45 18:45 WBC RBC Hgb Hct MCV MCH MCHC RDW Std Deviation RDW Coeff of Dottie Plt Count MPV Immature Gran % (Auto) Neut % (Auto) Lymph % (Auto) [place] % (Auto) Eos % (Auto) Baso % (Auto) Absolute Neuts (auto) Absolute Lymphs (auto) Nucleated RBC % PT INR APTT Sodium Potassium Chloride Carbon Dioxide Anion Gap BUN Creatinine Estim Creat Clear Calc Est GFR (MDRD) Af Amer Est GFR (MDRD) Non-Af BUN/Creatinine Ratio Glucose Calcium Blood Type A POSITIVE Antibody Screen NEGATIVE Crossmatch See Detail - Rhythm Strip Rhythm Strip: Sinus Rhythm Rate: 91 Ectopy: None - EKG Initial EKG Interpretation: Sinus Rhythm, - - Normal sinus rhythm at a rate of 91 HI interval 170 QRS 82 QT/QTc 372/457 Normal axis Nonspecific P wave inversions in inferior leads - Medical Decision Making Patient is evaluated for anemia on outpatient blood work. Repeat hemoglobin confirms anemia of 7.8. Chart review shows that patient's hemoglobin is been steadily dropping for the past month. Earlier this year hemoglobin was between 12 and 14. The cause of this is not clear. She is guaiac negative. She does have a large episode of diarrhea in the emergency room and stool cultures are sent. Patient has normal white blood cell count and have a lower suspicion for C. difficile infection. Patient is transfused 1 unit of blood. Patient is significantly hypertensive on arrival. She is asymptomatic from this. It does improved mildly without intervention. She does not require emergent antihypertensives in the emergency room. Patient is presents with She will be admitted for further evaluation of this acute anemia. She is agreeable with this plan. She stable for the general medical floor at time of disposition. Discussed with Dr. Gleason. ED Disposition - Plan for ED Patient: Disposition: Acute Care Hospital [facility] Diagnosis: Acute on chronic anemia, Hypertension
[2019-06-25 19:06] LABS: Absolute Lymphocyte Count 1.74 X10^3/uL (0.83-4.51); Absolute Neutrophil Count 3.8 X10^3/uL (2.0-7.7); Basophil# 0.02 X10^3/uL; Basophil% 0.3 % (0-1); Eosinophil# 0.01 X10^3/uL; Eosinophils% 0.2 % (0-5); Hemoglobin 7.8 g/dL (12.0-15.0); Lymphocyte # 1.74 X10^3/ul (4.0); Lymphocyte % 27.8 % (19-41); Mean Corp Hgb Conc 31.2 g/dL (32-36); Mean Corpuscular Hgb 28.8 pg (27.0-32.0); Mean Corpuscular Volume 92.3 fL (81-99); Mean Platelet Vol. 9.9 fl (6.2-12.0); Monocyte# 0.53 X10^3/uL; Monocyte% 8.5 % (0-10); NRBC Flagged by Analyzer 0.3 % (0-5); Neutrophil # 3.83 X10^3/uL (2.7-7.7); Neutrophil % 61.1 % (47-70); Platelet Count 160 K/mm3 (150-450); RBC Distribution Width CV 14.1 % (11.6-14.6); RBC Distribution Width SD 47.3 fl (35.1-43.9); Red Blood Count 2.71 M/mm3 (4.2-5.4); White Blood Count 6.3 K/mm3 (4.4-11.0)
[2019-06-25 19:13] LABS: International Normalized Ratio 0.9
[2019-06-25 19:14] LABS: Partial Thromboplast Time 24.3 Seconds (24.1-36.2)
[2019-06-25 19:35] LABS: Anion Gap 6 (5-15); BUN 21 mg/dL (7-18); BUN/Creat Ratio 14.8 RATIO (10-20); Calcium,Total 8.7 mg/dL (8.5-10.1); Chloride 105 mmol/L (98-107); Creatinine, Serum 1.42 mg/dL (0.55-1.02); EST Glomerular Filtration Rate 40 mL/min (>60); Est Glom Filt Rate - Afr Amer 48 mL/min (>60); Estimated Creatinine Clearance 35.93 ml/min; Glucose 85 mg/dL (74-106); Potassium 3.9 mmol/L (3.5-5.1); Sodium Level 142 mmol/L (136-145)
[2019-06-25 19:48] VITALS: BP 173/69; PULSE 89; RESP 18; O2SAT 99
[2019-06-25 21:51] VITALS: BMI 32.3
--- NOTE | 2019-06-25 21:51 | PCM.HP.STD ---
Problem List (1) Acute on chronic anemia Status: Chronic (2) Stroke Status: Inactive Qualifiers: CVA mechanism: embolism Precerebral and cerebral artery: middle cerebral artery Laterality of affected vessel: right Qualified Code(s): I63.411 - Cerebral infarction due to embolism of right middle cerebral artery (3) DRESS syndrome Status: Chronic (4) Debility Status: Chronic (5) Acute CVA (cerebrovascular accident) Status: Chronic (6) Discitis of cervical region Status: Acute (7) Carotid stenosis, right Status: Inactive (8) Asthma exacerbation Status: Chronic (9) Elevated liver enzymes Status: Chronic (10) Acute bronchitis Status: Inactive Qualifiers: Bronchitis organism: unspecified organism Qualified Code(s): J20.9 - Acute bronchitis, unspecified (11) Diabetes Status: Chronic Qualifiers: Diabetes mellitus type: type 2 (12) Rheumatoid arthritis Status: Chronic Qualifiers: (13) Hypertensive emergency Status: Chronic (14) Type II diabetes mellitus Status: Chronic Qualifiers: (15) Hypertension Status: Chronic Qualifiers: History of Present Illness Date of Admission: 06/25/19 Chief Complaint: Sent from [facility] for hemoglobin 6.8. The patient is a 63 year old F with multiple comorbidities as listed above was admitted on 06/21 for inability to walk and discharged on 06/24 to SNF. She was sent back to ER for hemoglobin 6.8. In ED hemoglobin is 7.8. BUN/creatinine 21/1.42. She denies any obvious external blood loss including GI blood loss, hematuria, hemoptysis or external skin bruise/ecchymosis. [] In ED, stool for occult blood is negative as per ER physician. She was admitted for 1 unit of PRBC transfusion. Denies symptoms of anemia including dizziness, near-syncope, headache but patient has physical debility secondary to stroke in December 2018. No chest pain or shortness of breath. Patient does not even know why she was sent to ER. Past Medical History Past Medical History (Chronic Problems): Chronic Problems (Last Reviewed 06/04/19 @ 00:44 by Jacob Landeros MD) DRESS syndrome (Chronic) Debility (Chronic) Acute on chronic anemia (Chronic) Acute CVA (cerebrovascular accident) (Chronic) Asthma exacerbation (Chronic) Elevated liver enzymes (Chronic) Diabetes (Chronic) Rheumatoid arthritis (Chronic) Hypertensive emergency (Chronic) Type II diabetes mellitus (Chronic) Hypertension (Chronic) Medical History: Medical History (Last Reviewed 06/04/19 @ 00:44 by Jacob Landeros MD) Diabetes (Chronic) E11.9 Rheumatoid arthritis (Chronic) M06.9 Asthma J45.909 Chest pain R07.9 H/O: hysterectomy Z98.890, Z90.710 SOB (shortness of breath) R06.02 Stroke I63.9 Hypertension I10 Allergies ceftriaxone Allergy (Severe, Verified 06/25/19 17:48) Rash vancomycin Allergy (Severe, Verified 06/25/19 17:48) Rash Penicillins Allergy (Verified 06/25/19 17:48) Swelling oxycodone HCl [From Percocet] Adverse Reaction (Verified 06/25/19 17:48) Itching Home Medications: Ambulatory Orders Medication Instructions Recorded Ipratropium/Albuterol Sulfate 3 ml INHALATION Q6HWA.RT ampul.neb 04/27/19 [Duoneb] Atorvastatin Calcium [Lipitor] 80 mg PO QHS 06/21/19 Metoprolol Tartrate [Lopressor 25 mg PO BID 06/21/19 (beta nat)] Aspirin [Aspirin, Baby] 81 mg PO DAILY@0800 tab.chew 06/23/19 Insulin Lispro [Humalog KwikPen] 12 unit SUBCUT BREAKFAST 06/23/19 insuln.pen Iron Polysaccharide Complex 150 mg PO DAILYCM cap 06/23/19 [Ferrex 150] Triamcinolone 0.5% Cream [Kenalog] 1 applic TOPICAL BID tube 06/23/19 hydrALAZINE [Apresoline] 50 mg PO TID tab 06/23/19 Insulin Glargine,Hum.rec.anlog 20 unit SQ QHS 06/25/19 [Basaglar Kwikpen U-100] Insulin Lispro [Admelog Solostar] 16 unit SQ BID 06/25/19 Insulin Lispro [Humalog KwikPen] 16 unit SUBCUT BID 06/25/19 Mag Hydrox/Aluminum Hyd/Simeth 30 ml PO Q4H PRN PRN 06/25/19 [Antacid Suspension] Prednisone 20 mg PO DAILY 06/25/19 Surgical History: Surgical History (Last Reviewed 06/04/19 @ 00:46 by Jacob Landeros MD) History of eye surgery Z98.890 knee scope Bilateral Surgical History: - Psychiatric History: 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 Smoking Status: Former smoker - *Family History Maternal Family History: Family History (Last Reviewed 06/04/19 @ 00:46 by Jacob Landeros MD) Mother Hypertension Emphysema/COPD Sister Hypertension History Items: No pertinent history Paternal Family History: Family History (Last Reviewed 06/04/19 @ 00:46 by Jacob Landeros MD) Mother Hypertension Emphysema/COPD Sister Hypertension History Items: No pertinent history Review of Systems Constitutional: Denies: Chills, Fever, Weight Change HEENT: Denies: Head Aches, Sinus Congestion, Sinus Drainage Cardiovascular: Denies: Chest Pain, Palpitations Respiratory: Denies: Cough, Shortness of breath at rest, Sputum production Gastrointestinal: Reports: - - Chronic oropharyngeal dysphagia after the stroke.. Denies: Abdominal Pain, Nausea, Vomiting Genitourinary: Denies: Dysuria, Frequency, Urgency Musculoskeletal: Reports: Joint Pain. Denies: Joint Tenderness Skin: Denies: Rash, Wounds Neurological: Reports: Balance problems, - - Left-sided weakness with left facial droop residual from stroke. Denies: Focal weakness, Numbness, Tingling Psychiatric: Denies: Anxiety, Depression, Homicidal Ideations, Suicidal Ideations Hematologic/ Lymphatic: Denies: Easy Bruising, Easy Bleeding VTE Information - Inpt Only VTE Present on Admission: No VTE Mechan Device Prophylaxis: SCD's Reason prophylaxis not ordered:: Medical Contraindication - Severe anemia - Physical Exam General: Alert, Oriented x3, Cooperative HEENT: Atraumatic, PERRLA, EOMI, Normocephalic Neck: Supple, No JVD, Negative Carotid Bruits Lungs: Clear to auscultation, No rhonchi, No wheeze, No rales, Diminished - Diminished in bilateral lung bases. Cardiovascular: Regular rate, Regular Rhythm, Normal S1, Normal S2, No murmurs Abdomen: Bowel Sounds Present, Soft, Non Tender, Non-Distended Extremities: Capillary Refill Less than 3 Seconds, Edema Skin: No rashes, No breakdown Musculoskeletal: No Tenderness to Palpation of Joints or Extremities, Arthritic Changes Neurological: Cranial nerves II-XII grossly intact, Deep Tendon Reflexes 2+/4 and Symmetrical, Facial Droop - Left-sided facial droop, - - Weakness in left lower extremity. Psych/Mental Status: Normal Affect, Appropriate Vital Signs Temp Pulse Resp BP Pulse Ox 98.8 F 89 18 173/69 H 99 06/25/19 17:45 06/25/19 19:48 06/25/19 19:48 06/25/19 19:48 06/25/19 19:48 Oxygen Delivery Method Room Air Weight: 199 lb 4.766 oz Body Mass Index (BMI) 34.2 Finger Stick Blood Glucose 595 Microbiology Past 72 Hours 06/25/19 19:35 Stool Lactoferrin - Final Stool 06/25/19 18:57 Stool Occult Blood (SIMONE) - Final Stool Laboratory Tests Past 24 Hrs 06/25/19 06/25/19 06/25/19 18:45 18:45 18:45 WBC 6.3 RBC 2.71 L Hgb 7.8 L Hct 25.0 L MCV 92.3 MCH 28.8 MCHC 31.2 L RDW Std Deviation 47.3 H RDW Coeff of Dottie 14.1 Plt Count 160 MPV 9.9 Immature Gran % (Auto) 2.100 H Neut % (Auto) 61.1 Lymph % (Auto) 27.8 [place] % (Auto) 8.5 Eos % (Auto) 0.2 Baso % (Auto) 0.3 Absolute Neuts (auto) 3.8 Absolute Lymphs (auto) 1.74 Nucleated RBC % 0.3 PT 12.0 INR 0.9 APTT 24.3 Sodium 142 Potassium 3.9 Chloride 105 Carbon Dioxide 31.0 Anion Gap 6 BUN 21 H Creatinine 1.42 H Estim Creat Clear Calc 35.93 Est GFR (MDRD) Af Amer 48 L Est GFR (MDRD) Non-Af 40 L BUN/Creatinine Ratio 14.8 Glucose 85 Calcium 8.7 Blood Type Antibody Screen Crossmatch 06/25/19 06/25/19 18:45 18:45 WBC RBC Hgb Hct MCV MCH MCHC RDW Std Deviation RDW Coeff of Dottie Plt Count MPV Immature Gran % (Auto) Neut % (Auto) Lymph % (Auto) [place] % (Auto) Eos % (Auto) Baso % (Auto) Absolute Neuts (auto) Absolute Lymphs (auto) Nucleated RBC % PT INR APTT Sodium Potassium Chloride Carbon Dioxide Anion Gap BUN Creatinine Estim Creat Clear Calc Est GFR (MDRD) Af Amer Est GFR (MDRD) Non-Af BUN/Creatinine Ratio Glucose Calcium Blood Type A POSITIVE Antibody Screen NEGATIVE Crossmatch See Detail Assessment/Plan All Active Problems (Last Reviewed 06/04/19 @ 00:44 by Jacob Landeros MD) Discitis of cervical region (Acute) The patient is a 63 year old F with multiple comorbidities as listed above was admitted on 06/21 for inability to walk and discharged on 06/24 to SNF. She was sent back to ER for hemoglobin 6.8. In ED hemoglobin is 7.8. BUN/creatinine 05/10.42. She denies any obvious external blood loss including GI blood loss, hematuria, hemoptysis or external skin bruise/ecchymosis. [] In ED, stool for occult blood is negative as per ER physician. She was admitted for 1 unit of PRBC transfusion. 1. Acute on chronic anemia, normocytic normochromic; possible related to prednisone and baby aspirin: Patient is being admitted on [facility] floor. Hemodynamically stable. Hold aspirin. 1 unit of PRBC ordered from the ER. Check posttransfusion CBC. Patient recently had iron work-up done. Serum iron 28, TIBC 216, iron saturation 13%, ferritin 895. It is suggestive of anemia of chronic disease/CKD. B12 and folic acid ordered.. Patient is on oral ferrous gluconate. Patient never had EGD and colonoscopy. I think this might be done as an outpatient. 2. Hypertension, uncontrolled: Patient blood pressure is uncontrolled. During previous admission also her blood pressure was 206/83. In ER it was 215/86 and 173/69. Hydralazine 10 mg IV every 4 hourly as needed for systolic blood pressure more than 180 or diastolic blood pressure more than 100 mmHg. Increase hydralazine 100 mg 3 times daily from 50 mg p.o. 3 times daily. 3. CKD stage III: Patient last BUN/creatinine similar to the present ONE. Today BUN/creatinine 05/10.42. Was discharged on 03/10.48. IV fluid 50 mill per hour. 4. Recent DRESS syndrome: The patient is on prednisone for recent dress syndrome. It was thought secondary to vancomycin, maintained on aggressive p.o. with prolonged taper, following outpatient with dermatology for further direction of steroid therapy, biopsy performed inpatient by Dr. Barillas with nonspecific results which can be the case with the syndrome. We will hold prednisone 5. Recent Discitis: Recently completed vancomycin and Rocephin therapy, repeat MRI during prior admission improved with ID evaluation with recommendation for discontinuation of antibiotic therapy, continue follow-up with outpatient ID. 6. History of hepatitis A and hepatitis C with abnormal LFTs 7. Type 2 diabetes mellitus: Glucoses on the lower side, 85 on the BMP. Accu-Chek before meals and at bedtime. Patient is on long-acting insulin Lantus and Humalog insulin. Titrate the dose as per Accu-Cheks. Hold Lantus tonight. Code Visit Inpatient E&M: 48578 Init Hosp L3
[2019-06-25 21:53] VITALS: BP 183/76; PULSE 78; RESP 18; TEMP 37.1; O2SAT 99
[2019-06-25 21:59] VITALS: BMI 32.4
[2019-06-25 23:36] VITALS: PULSE 78
[2019-06-25] MEDS: Metoprolol Tartrate 25 MG Tablet PO (23:36)
[2019-06-25] MEDS: Atorvastatin Calcium 80 MG Tablet PO (23:36)
[2019-06-26] VITALS (22 sets, daily range): BP systolic 139–201; BP diastolic 45–88; PULSE 71–122; RESP 16–20; TEMP 36.9–37.7; O2SAT 97–100
[2019-06-26 00:06] LABS: Bedside Glucose 72 mg/dL (70-110)
[2019-06-26 07:31] LABS: Absolute Lymphocyte Count 2.11 X10^3/uL (0.83-4.51); Absolute Neutrophil Count 2.5 X10^3/uL (2.0-7.7); Basophil# 0.01 X10^3/uL; Basophil% 0.2 % (0-1); Eosinophils% 1.9 % (0-5); Hematocrit 23.9 % (37-47); Hemoglobin 7.6 g/dL (12.0-15.0); Lymphocyte # 2.11 X10^3/ul (4.0); Lymphocyte % 39.8 % (19-41); Mean Corp Hgb Conc 31.8 g/dL (32-36); Mean Corpuscular Hgb 28.8 pg (27.0-32.0); Mean Corpuscular Volume 90.5 fL (81-99); Mean Platelet Vol. 10.5 fl (6.2-12.0); Monocyte# 0.54 X10^3/uL; Monocyte% 10.2 % (0-10); NRBC Flagged by Analyzer 0 % (0-5); Neutrophil # 2.46 X10^3/uL (2.7-7.7); Neutrophil % 46.4 % (47-70); Platelet Count 136 K/mm3 (150-450); RBC Distribution Width CV 14.9 % (11.6-14.6); RBC Distribution Width SD 48.9 fl (35.1-43.9); Red Blood Count 2.64 M/mm3 (4.2-5.4); White Blood Count 5.3 K/mm3 (4.4-11.0)
[2019-06-26] MEDS: Ipratropium/Albuterol Sulfate 3 ML AMPUL.NEB INHALATION ×3 (07:53→19:22)
[2019-06-26 08:10] LABS: ALB/GLOB Ratio 0.6 RATIO (0.9-2.4); AST(SGOT) 82 U/L (15-37); Alanine Aminotransfer ALT/SGPT 102 U/L (13-56); Albumin, Serum 2.1 g/dL (3.2-5.0); Alkaline Phosphatase 99 U/L (45-117); Anion Gap 7 (5-15); BUN 18 mg/dL (7-18); BUN/Creat Ratio 15.1 RATIO (10-20); Calcium,Total 7.7 mg/dL (8.5-10.1); Chloride 109 mmol/L (98-107); Creatinine, Serum 1.19 mg/dL (0.55-1.02); EST Glomerular Filtration Rate 49 mL/min (>60); Est Glom Filt Rate - Afr Amer 59 mL/min (>60); Estimated Creatinine Clearance 42.87 ml/min; Globulin 3.4 g/dL (2.2-4.2); Glucose 95 mg/dL (74-106); Potassium 3.5 mmol/L (3.5-5.1); Protein, Total 5.5 g/dL (6.4-8.2); Sodium Level 144 mmol/L (136-145)
[2019-06-26] MEDS: Metoprolol Tartrate 25 MG Tablet PO (08:12)
[2019-06-26] MEDS: Iron Polysaccharide Complex 150 MG CAPSULE PO (08:12)
[2019-06-26 08:21] LABS: Bedside Glucose 102 mg/dL (70-110)
--- NOTE | 2019-06-26 10:22 | PN_ITS ---
Subjective: Patient seen and examined. [facility] on account of low hemoglobin. Hemoglobin checked was 6.8. Patient had recently been on admission and was discharged home on 06/21/2019 after being managed for physical debility and inability to walk. She complained of just feeling tired but denied any lightheadedness or dizziness, palpitations and denies any evidence of seen blood in her stool. Patient has never had an EGD or colonoscopy before. Stool for occult blood in the ED was negative. She was admitted to be transfused 1 unit of packed red blood cells. Hemoglobin done in the ED was 7.8. Patient has no complaints this morning. She says she wants to go home as she has been in the [facility] for too long and is here to get out. She denies any other symptoms. Review of systems otherwise negative. Labs and vitals reviewed. Home medication reviewed and reconciled. Vitals/I&O's: Vital Signs Temp Pulse Resp BP Pulse Ox 99.1 F 72 18 167/72 H 97 06/26/19 08:02 06/26/19 08:12 06/26/19 08:02 06/26/19 08:12 06/26/19 08:02 Oxygen Delivery Method Room Air Weight: 188 lb 7.924 oz Body Mass Index (BMI) 32.3 Finger Stick Blood Glucose 595 Intake and Output for Last 24 Hours 06/24/19 06/25/19 06/26/19 23:59 23:59 23:59 Intake Total 500 / 500 510 / 510 Balance 500 / 500 510 / 510 General: Alert, Oriented x3, Cooperative, No apparent distress HEENT: Atraumatic, PERRLA, EOMI, Normocephalic Oral: Moist Mucosa Neck: Supple, No JVD, Negative Carotid Bruits Lungs: Clear to auscultation, Normal air movement, No rhonchi, No wheeze, No rales Cardiovascular: Regular rate, Regular Rhythm, Normal S1, Normal S2, No murmurs Abdomen: Bowel Sounds Present, Soft, Non Tender, Non-Distended, No Hepato- splenomegaly Extremities: No clubbing, No cyanosis, No edema, Capillary Refill Less than 3 Seconds Skin: No rashes, No breakdown Musculoskeletal: No Tenderness to Palpation of Joints or Extremities Lymphatic: No Cervical, Supraclavicular, or Inguinal Adenopathy Neurological: Cranial nerves II-XII grossly intact Psych/Mental Status: Normal Affect, Appropriate, Alert and oriented to time, place, person, mood and affect Microbiology Past 72 Hours 06/25/19 19:35 Stool Enteric Bacteriology - Final 06/25/19 19:35 Stool Stool Lactoferrin - Final 06/25/19 18:57 Stool Stool Occult Blood (SIMONE) - Final Laboratory Results 06/25/19 18:45: WBC 6.3, RBC 2.71 L, Hgb 7.8 L, Hct 25.0 L, MCV 92.3, MCH 28.8, MCHC 31.2 L, RDW Std Deviation 47.3 H, RDW Coeff of Dottie 14.1, Plt Count 160, MPV 9.9, Immature Gran % (Auto) 2.100 H, Neut % (Auto) 61.1, Lymph % (Auto) 27.8, [place] % (Auto) 8.5, Eos % (Auto) 0.2, Baso % (Auto) 0.3, Absolute Neuts (auto) 3.8, Absolute Lymphs (auto) 1.74, Nucleated RBC % 0.3 06/25/19 18:45: PT 12.0, INR 0.9, APTT 24.3 06/25/19 18:45: Sodium 142, Potassium 3.9, Chloride 105, Carbon Dioxide 31.0, Anion Gap 6, BUN 21 H, Creatinine 1.42 H, Estim Creat Clear Calc 35.93, Est GFR (MDRD) Af Amer 48 L, Est GFR (MDRD) Non-Af 40 L, BUN/Creatinine Ratio 14.8, Glucose 85, Calcium 8.7 06/25/19 18:45: Blood Type A POSITIVE, Antibody Screen NEGATIVE 06/25/19 18:45: Crossmatch See Detail 06/25/19 23:35: POC Glucose 72 06/26/19 06:53: Vitamin B12 Pending 06/26/19 06:53: Sodium 144, Potassium 3.5, Chloride 109 H, Carbon Dioxide 28.0, Anion Gap 7, BUN 18, Creatinine 1.19 H, Estim Creat Clear Calc 42.87, Est GFR (MDRD) Af Amer 59 L, Est GFR (MDRD) Non-Af 49 L, BUN/Creatinine Ratio 15.1, Glucose 95, Calcium 7.7 L, Total Bilirubin 1.00, AST 82 H, ALT 102 H, Alkaline Phosphatase 99, Total Protein 5.5 L, Albumin 2.1 L, Globulin 3.4, Albumin/Globulin Ratio 0.6 L, Folate 8.40 06/26/19 06:53: WBC 5.3, RBC 2.64 L, Hgb 7.6 L, Hct 23.9 L, MCV 90.5, MCH 28.8, MCHC 31.8 L, RDW Std Deviation 48.9 H, RDW Coeff of Dottie 14.9 H, Plt Count 136 L, MPV 10.5, Immature Gran % (Auto) 1.500 H, Neut % (Auto) 46.4 L, Lymph % (Auto) 39.8, [place] % (Auto) 10.2 H, Eos % (Auto) 1.9, Baso % (Auto) 0.2, Absolute Neuts (auto) 2.5, Absolute Lymphs (auto) 2.11, Nucleated RBC % 0 06/26/19 07:44: POC Glucose 102 Current Medications Acetaminophen (Tylenol) 650 mg PO Q6H PRN PRN PRN Reason: Mild Pain (1-3)/Temp > 100.7 F Al Hydroxide/Mg Hydroxide (Mylanta Ii) 30 ml PO Q4H PRN PRN PRN Reason: gi distress Albuterol/Ipratropium (Duoneb) 3 ml INHALATION Q6HWA.RT [facility] Last Admin: 06/26/19 07:53 Dose: 3 ml Documented by: Atorvastatin Calcium (Lipitor) 80 mg PO QHS [facility] Last Admin: 06/25/19 23:36 Dose: 80 mg Documented by: Dextrose (D50w Syringe) 0 gm IV X1 PRN; Protocol PRN Reason: Hypoglycemia Glucagon () 1 mg IM .X1 PRN PRN Reason: Hypoglycemia Hydralazine HCl (Apresoline) 100 mg PO TID [facility] Hydralazine HCl (Apresoline Iv) 10 mg IV Q4H PRN PRN PRN Reason: sbp>180 and/or DBP>100 Pantoprazole Sodium 40 mg/ (Sodium Chloride) 110 mls @ 330 mls/hr IV Q24 [facility] Last Admin: 06/26/19 07:49 Dose: Not Given Documented by: Insulin Glargine (Lantus (Bkc)) 20 units SC QHS [facility] Insulin Human Lispro (Humalog Kwikpen (Bkc)) 12 unit SC BREAKFAST [facility] Last Admin: 06/26/19 07:48 Dose: Not Given Documented by: Insulin Human Lispro (Humalog Kwikpen (Bkc)) 16 unit SC 1200,1700 [place] Insulin Human Lispro (Humalog Kwikpen (Bkc)) 0 unit SC ACHS [facility]; Protocol Last Admin: 06/26/19 07:46 Dose: Not Given Documented by: Melatonin (Melatonin) 3 mg PO QHS PRN PRN PRN Reason: INSOMNIA Metoprolol Tartrate (Lopressor (Beta Filomena)) 25 mg PO BID [facility] Last Admin: 06/26/19 08:12 Dose: 25 mg Documented by: Morphine Sulfate () 2 mg IV Q3H PRN PRN PRN Reason: Severe pain (-06/24) Nitroglycerin (Nitrostat) 0.4 mg SUBLINGUAL Q5M PRN PRN Reason: CARDIAC/CHEST PAIN Nutritional Formula (Lactose Free) (Glucerna Shake) 120 ml PO 4X/DAY [facility] Last Admin: 06/26/19 08:12 Dose: Not Given Documented by: Ondansetron HCl (Zofran) 4 mg IV Q8H PRN PRN PRN Reason: NAUSEA/VOMITING Polysaccharide [facility] ([facility]rex 150) [facility] Last Admin: 06/26/19 08:12 Dose: 150 mg Documented by: Senna/Docusate Sodium (Senokot-S, Loni-Colace) 2 tablet PO BID PRN PRN PRN Reason: Constipation Sodium Chloride () 5 - 15 ml IV UD PRN PRN Reason: SALINE FLUSH Medical Necessity - Tobacco Use Smoking Status: Former smoker Assessment/Plan All Active Problems (Last Reviewed 06/04/19 @ 00:44 by Jacob Landeros MD) Discitis of cervical region (Acute) 1. Acute on chronic anemia * Hb in the [facility] was 6.8, was 7.8 on admission. Hb today is 7.6 * stool for occult blood was negative * iron panel done recently showed iron saturation of 13%, with low TIBC nad elevated ferritin, indicating anemia of chronic disease picture * however, her Hb as at 9.9.19 was 11.6, and has dropped gradually to 7.6 today. * she has never been worked up for this with EGD or colonoscopy; she has never had an EGD or colonoscopy before * she is on oral iron supplements. * will consult general surgery as I think patient will benefit from EGD and colonoscopy. I am also concerned about compliance on outpatient basis. * aspirin and steroids on hold * 2. Hypertension * poorly controlled. * BP is in 160s systolic; was in 180s systolic on admission * on PO hydralazine 100mg tid and metoprolol 25mg bid. Hydralazine dose was increased on admission; will therefore monitor BP for now. IV hydralazine prn. * 3. CKD 3: Cr is 1.19 today. Will monitor 4. History of DRESS syndrome * on PO prednisone taper. This is currently on hold o/a of anemia. * was thought to be due to vancomycin. Stable. * Will monitor * 5. History of discitis: completed vancomycin and rocephin therapy recently. stable. To follow up with ID upon discharge. 6. Type 2 diabetes mellitus * on Lantus 20 units nightly. * Insulin sliding scale. Accu-Cheks before meals at bedtime. * 7. History of hepatitis and hepatitis C: Stable. Has mildly elevated LFTs with AST of 82 and ALT of 102 which is chronic. Will monitor. DVT prophylaxis: SCDs. Code Visit OBSV E&M: 55889 Subsequent observation care L3
--- NOTE | 2019-06-26 11:29 | NURSING ---
This RN called lab to request update on Ova and Parasite test in micro. Notified that lab is a send out and that it will not be resulted until friday.
[2019-06-26] MEDS: Insulin Lispro 100 UNIT/ML INSULN.PEN 16 UNIT SC ×2 (12:07→16:43)
[2019-06-26] MEDS: Glucerna Shake 120 ML LIQUID PO ×2 (12:07→16:44)
[2019-06-26] MEDS: Insulin Lispro 100 UNIT/ML INSULN.PEN SC ×2 (12:08→16:43)
[2019-06-26 12:15] LABS: Bedside Glucose 262 mg/dL (70-110)
[2019-06-26 17:05] LABS: Bedside Glucose 156 mg/dL (70-110)
--- NOTE | 2019-06-26 20:04 | EKG12_ITS ---
Test Reason : CHEST PAIN Blood Pressure : / mmHG Vent. Rate : 116 BPM Atrial Rate : 116 BPM P-R Int : 158 ms QRS Dur : 082 ms QT Int : 350 ms P-R-T Axes : 067 066 -83 degrees QTc Int : 486 ms Sinus tachycardia Septal infarct , age undetermined ST & T wave abnormality, consider inferior ischemia ST & T wave abnormality, consider anterolateral ischemia Abnormal ECG When compared with ECG of 25-JUN-2019 19:06, MANUAL COMPARISON REQUIRED, DATA IS UNCONFIRMED Confirmed by DANYEL PIZARRO, SILVESTRE ([id number]), development editor TRIP TORRE ([id number]) on 06/30/2019 11:25:36 AM Referred By: Deni Gleason Confirmed By:SILVESTRE MONTAÑO MD
[2019-06-26] MEDS: hydrALAZINE 20 MG/ML Vial 10 MG IV (20:10)
[2019-06-26] MEDS: Nitroglycerin (INPATIENT USE) 0.4 MG TAB.SUBL SUBLINGUAL ×2 (20:19→21:56)
--- NOTE | 2019-06-26 20:26 | NURSING ---
Addendum entered by Laura Miles 06/26/19 20:28: Troponins also ordered. Original Note: Dr Gleason notified of EKG showing ischemia, photo of EKG sent to Dr Gleason. Per Dr Gleason, transfer pt to PCU. IV hydralazine given, x1 dose of nitro SQ given. After 5 minutes, pt states chest pain is 0/10.
--- NOTE | 2019-06-26 20:51 | NURSING ---
Report called to PCU at this time.
--- NOTE | 2019-06-26 20:52 | CCHN_ITS ---
Hospitalist Note Nurse called me for chest pain. Earlier admitted the patient yesterday for acute on chronic anemia most likely from chronic prednisone and baby aspirin. Patient had 1 unit of PRBC transfusion and hemoglobin went up from 7.8-8.4. Patient describes chest pain feeling like heavy weight put on her chest midsternal, lasted for about half an hour along with associated shortness of breath. Patient felt she had difficulty in breathing. Chest pain was localized. Patient denies any previous history of chest pain/coronary artery disease/peripheral arterial disease. Patient blood pressure was high, 201/88, heart rate 117 respiratory rate 18 pulse ox 99% on room air. Prior to that Dr. Lamb give part of hydralazine 10 mg IV and was given. After I saw the patient blood pressure was still elevated 179/82, heart rate 122. Labetalol 10 mg IV ordered given. Twelve-lead EKG was done. EKG shows sinus tachycardia at 116 bpm with T and worsen V3 to V6, 1 aVL in lead II and III. The suggestive of anterolateral and inferior wall ischemia. Previous EKG on June 25 normal sinus rhythm with T inversion in inferior leads, similar on June 21. First troponin negative. Baby aspirin given. Of note, baby aspirin was held yesterday secondary to anemia. Discussed with the eyeglass cutter Dr. Tejada and he agrees with the plan of baby aspirin. He thinks this might be demand ischemia secondary to anemia, tachycardia and hypertensive urgency. Advised blood transfusion PRBC to keep hemoglobin about 10 g%. Patient being transferred to PCU. Serial troponin enzymes ordered. Repeat CBC shows hemoglobin 8.4/26. Platelet count 145,000. 2 units of PRBC ordered advised to transfuse 1 unit and check posttransfusion H&H after 1 unit of PRBC. Cardiology consult ordered. Metoprolol was changed to Coreg 12.5 mg p.o. twice daily. Patient has history of high blood pressure, uncontrolled, stays in 117- 200 the best was 140 at one time. On hydralazine 100 mg p.o. 3 times daily. Add losartan 50 mg one dose and see Cr tomorrow. Patient also has acute kidney injury and creatinine improved from 1.42-1.19. If she tolerates losartan and w ill continue it. Code Visit Inpatient E&M: 21362 [facility] Hosp L1
--- NOTE | 2019-06-26 20:55 | NURSING ---
bleacher lard Nitza Johns called pt's best friend to let her know of pt being transferred to PCU.
[2019-06-26 21:11] LABS: Absolute Lymphocyte Count 2.65 X10^3/uL (0.83-4.51); Absolute Neutrophil Count 3.2 X10^3/uL (2.0-7.7); Basophil# 0.02 X10^3/uL; Basophil% 0.3 % (0-1); Eosinophil# 0.14 X10^3/uL; Hemoglobin 8.4 g/dL (12.0-15.0); Lymphocyte # 2.65 X10^3/ul (4.0); Lymphocyte % 38.7 % (19-41); Mean Corp Hgb Conc 32.3 g/dL (32-36); Mean Corpuscular Hgb 29.3 pg (27.0-32.0); Mean Corpuscular Volume 90.6 fL (81-99); Mean Platelet Vol. 9.9 fl (6.2-12.0); Monocyte# 0.63 X10^3/uL; Monocyte% 9.2 % (0-10); NRBC Flagged by Analyzer 0.3 % (0-5); Neutrophil # 3.22 X10^3/uL (2.7-7.7); Platelet Count 145 K/mm3 (150-450); RBC Distribution Width CV 14.9 % (11.6-14.6); RBC Distribution Width SD 48.7 fl (35.1-43.9); Red Blood Count 2.87 M/mm3 (4.2-5.4); White Blood Count 6.9 K/mm3 (4.4-11.0)
[2019-06-26] MEDS: Carvedilol 12.5 MG Tablet PO (21:17)
[2019-06-26] MEDS: Aspirin E.C. 81 MG Tablet PO (21:17)
[2019-06-26] MEDS: Atorvastatin Calcium 80 MG Tablet PO (22:15)
[2019-06-26 23:06] LABS: Bedside Glucose 188 mg/dL (70-110)
--- NOTE | 2019-06-26 23:50 | EKG12_ITS ---
Test Reason : ADMIT Blood Pressure : / mmHG Vent. Rate : 106 BPM Atrial Rate : 106 BPM P-R Int : 160 ms QRS Dur : 076 ms QT Int : 358 ms P-R-T Axes : 071 068 040 degrees QTc Int : 475 ms Sinus tachycardia Septal infarct , age undetermined Abnormal ECG When compared with ECG of 26-JUN-2019 20:19, MANUAL COMPARISON REQUIRED, DATA IS UNCONFIRMED Confirmed by PADILLA CHENEY ([id number]), videotape editor TRIP TORRE ([id number]) on 06/30/2019 10:45:13 AM Referred By: Deni Gleason Confirmed By:PADILLA CHENEY
[2019-06-27] VITALS (21 sets, daily range): BP systolic 142–166; BP diastolic 53–77; PULSE 77–100; RESP 16–18; TEMP 37–37.5; O2SAT 95–100
[2019-06-27] MEDS: Losartan Potassium 50 MG Tablet PO (00:03)
[2019-06-27] MEDS: hydrALAZINE 50 MG Tablet 100 MG PO ×4 (00:03→21:21)
[2019-06-27 05:11] LABS: Absolute Lymphocyte Count 1.63 X10^3/uL (0.83-4.51); Absolute Neutrophil Count 2.5 X10^3/uL (2.0-7.7); Basophil# 0.02 X10^3/uL; Basophil% 0.4 % (0-1); Eosinophil# 0.16 X10^3/uL; Eosinophils% 3.3 % (0-5); Hematocrit 24.9 % (37-47); Lymphocyte # 1.63 X10^3/ul (4.0); Lymphocyte % 33.7 % (19-41); Mean Corp Hgb Conc 32.1 g/dL (32-36); Mean Corpuscular Hgb 29.5 pg (27.0-32.0); Mean Corpuscular Volume 91.9 fL (81-99); Monocyte# 0.43 X10^3/uL; Monocyte% 8.9 % (0-10); NRBC Flagged by Analyzer 0.6 % (0-5); Neutrophil # 2.46 X10^3/uL (2.7-7.7); Neutrophil % 50.8 % (47-70); Platelet Count 127 K/mm3 (150-450); RBC Distribution Width CV 14.7 % (11.6-14.6); RBC Distribution Width SD 48.8 fl (35.1-43.9); Red Blood Count 2.71 M/mm3 (4.2-5.4); White Blood Count 4.8 K/mm3 (4.4-11.0)
[2019-06-27 05:26] LABS: Anion Gap 7 (5-15); BUN 15 mg/dL (7-18); BUN/Creat Ratio 10.9 RATIO (10-20); Calcium,Total 7.5 mg/dL (8.5-10.1); Chloride 108 mmol/L (98-107); Creatinine, Serum 1.37 mg/dL (0.55-1.02); EST Glomerular Filtration Rate 42 mL/min (>60); Est Glom Filt Rate - Afr Amer 50 mL/min (>60); Estimated Creatinine Clearance 37.24 ml/min; Glucose 120 mg/dL (74-106); Potassium 3.7 mmol/L (3.5-5.1); Sodium Level 144 mmol/L (136-145)
--- NOTE | 2019-06-27 07:14 | PCM.PN.SRG ---
Subjective: Patient reports no abdominal pain or gross blood in her stool. No nausea or vomiting. No hematemesis. She had chest pain overnight. - Physical Exam General: Alert, Oriented x3 Lungs: Normal air movement Abdomen: Soft, Non Tender, Non-Distended Vital Signs Temp Pulse Resp BP Pulse Ox 99.1 F 78 16 166/68 H 95 06/27/19 07:02 06/27/19 07:02 06/27/19 07:02 06/27/19 07:02 06/27/19 07:02 Oxygen Flow Rate (L/min) 2 Oxygen Delivery Method Room Air Weight: 188 lb 7.924 oz Body Mass Index (BMI) 32.3 Finger Stick Blood Glucose 595 Intake and Output for Last 24 Hours 06/25/19 06/26/19 06/27/19 23:59 23:59 23:59 Intake Total 500 / 500 1410 / 1410 120 / 120 Output Total 350 / 350 Balance 500 / 500 1060 / 1060 120 / 120 Microbiology Past 72 Hours 06/25/19 19:35 Enteric Bacteriology - Final Stool 06/25/19 19:35 Stool Lactoferrin - Final Stool 06/25/19 18:57 Stool Occult Blood (SIMONE) - Final Stool Laboratory Tests Past 24 Hrs 06/26/19 06/26/19 06/26/19 06:53 06:53 06:53 WBC 5.3 RBC 2.64 L Hgb 7.6 L Hct 23.9 L MCV 90.5 MCH 28.8 MCHC 31.8 L RDW Std Deviation 48.9 H RDW Coeff of Dottie 14.9 H Plt Count 136 L MPV 10.5 Immature Gran % (Auto) 1.500 H Neut % (Auto) 46.4 L Lymph % (Auto) 39.8 [place] % (Auto) 10.2 H Eos % (Auto) 1.9 Baso % (Auto) 0.2 Absolute Neuts (auto) 2.5 Absolute Lymphs (auto) 2.11 Nucleated RBC % 0 Sodium 144 Potassium 3.5 Chloride 109 H Carbon Dioxide 28.0 Anion Gap 7 BUN 18 Creatinine 1.19 H Estim Creat Clear Calc 42.87 Est GFR (MDRD) Af Amer 59 L Est GFR (MDRD) Non-Af 49 L BUN/Creatinine Ratio 15.1 Glucose 95 Calcium 7.7 L Total Bilirubin 1.00 AST 82 H ALT 102 H Alkaline Phosphatase 99 Troponin I Total Protein 5.5 L Albumin 2.1 L Globulin 3.4 Albumin/Globulin Ratio 0.6 L Vitamin B12 Pending Folate 8.40 Crossmatch 06/26/19 06/26/19 06/26/19 18:45 20:35 20:35 WBC 6.9 RBC 2.87 L Hgb 8.4 L Hct 26.0 L MCV 90.6 MCH 29.3 MCHC 32.3 RDW Std Deviation 48.7 H RDW Coeff of Dottie 14.9 H Plt Count 145 L MPV 9.9 Immature Gran % (Auto) 2.800 H Neut % (Auto) 47.0 Lymph % (Auto) 38.7 [place] % (Auto) 9.2 Eos % (Auto) 2.0 Baso % (Auto) 0.3 Absolute Neuts (auto) 3.2 Absolute Lymphs (auto) 2.65 Nucleated RBC % 0.3 Sodium Potassium Chloride Carbon Dioxide Anion Gap BUN Creatinine Estim Creat Clear Calc Est GFR (MDRD) Af Amer Est GFR (MDRD) Non-Af BUN/Creatinine Ratio Glucose Calcium Total Bilirubin AST ALT Alkaline Phosphatase Troponin I < 0.015 Total Protein Albumin Globulin Albumin/Globulin Ratio Vitamin B12 Folate Crossmatch See Detail 06/27/19 06/27/19 06/27/19 00:29 04:10 04:10 WBC 4.8 RBC 2.71 L Hgb 8.0 L Hct 24.9 L MCV 91.9 MCH 29.5 MCHC 32.1 RDW Std Deviation 48.8 H RDW Coeff of Dottie 14.7 H Plt Count 127 L MPV 10.0 Immature Gran % (Auto) 2.900 H Neut % (Auto) 50.8 Lymph % (Auto) 33.7 [place] % (Auto) 8.9 Eos % (Auto) 3.3 Baso % (Auto) 0.4 Absolute Neuts (auto) 2.5 Absolute Lymphs (auto) 1.63 Nucleated RBC % 0.6 Sodium 144 Potassium 3.7 Chloride 108 H Carbon Dioxide 29.0 Anion Gap 7 BUN 15 Creatinine 1.37 H Estim Creat Clear Calc 37.24 Est GFR (MDRD) Af Amer 50 L Est GFR (MDRD) Non-Af 42 L BUN/Creatinine Ratio 10.9 Glucose 120 H Calcium 7.5 L Total Bilirubin AST ALT Alkaline Phosphatase Troponin I 0.019 0.049 H Total Protein Albumin Globulin Albumin/Globulin Ratio Vitamin B12 Folate Crossmatch POC Glucose 06/26/19 06/26/19 06/26/19 22:12 16:33 11:57 POC Glucose 188 H 156 H 262 H 06/26/19 07:44 POC Glucose 102 Medical Necessity - Tobacco Use Smoking Status: Former smoker Assessment/Plan All Active Problems (Last Reviewed 06/04/19 @ 00:44 by Jacob Landeros MD) Discitis of cervical region (Acute) 63-year-old female with anemia 1. The patient is not having any gross blood in her stool or abdominal pain or hematemesis. She was given blood but she complained of substernal chest pain. Her troponins are slightly elevated she was also tachycardic. There is question of demand ischemia and she is being transfused currently. Given these facts I would like to wait until Friday to perform endoscopy to allow heart work-up and adequate transfusion. I plan to perform bowel prep tomorrow if she is stable and EGD and colonoscopy on Friday. Patient is agreeable to plan. Alfonzo Barillas MD Pager: [facility] [address] [place] [address], [address] [place] [address] Office:
[2019-06-27] MEDS: Ipratropium/Albuterol Sulfate 3 ML AMPUL.NEB INHALATION (07:43)
[2019-06-27] MEDS: Iron Polysaccharide Complex 150 MG CAPSULE PO (08:15)
[2019-06-27] MEDS: Insulin Lispro 100 UNIT/ML INSULN.PEN 12 UNIT SC ×2 (08:15→11:53)
[2019-06-27 08:16] LABS: Bedside Glucose 117 mg/dL (70-110)
[2019-06-27 09:48] LABS: Hematocrit 29.9 % (37-47); Hemoglobin 10.1 g/dL (12.0-15.0)
[2019-06-27] MEDS: Glucerna Shake 120 ML LIQUID PO ×2 (09:56→14:11)
[2019-06-27] MEDS: Carvedilol 12.5 MG Tablet PO ×2 (09:56→21:21)
--- NOTE | 2019-06-27 10:01 | PN_ITS ---
Subjective: Patient seen and examined. She was transferred from the MedSur unit to the PCU overnight on account of complaint of chest pain. She described pain as pressure-like and retrosternal and relieved by sublingual nitroglycerin. Troponins were checked and it trended up slightly to 0.149. Blood pressure was 201/88 with heart rate of 117 at time of chest pain. EKG was done and showed sinus tachycardia with evidence of anterolateral and inferior wall ischemia. Was discussed with machinery cleaner and the patient was started on baby aspirin. It was thought that his symptoms may be due to demand ischemia secondary to anemia and hypertensive urgency as well as tachycardia. Plan was to transfuse patients with packed red blood cells to keep hemoglobin more than 10. Metoprolol was changed to Coreg 12.5 mg twice daily. Losartan was also added on. Chest pain had resolved this morning. She was packed red blood cells at time of review. She denied any palpitations or dizziness, abdominal pain, diarrhea vomiting. Review of systems otherwise negative. General surgery also on board and is planning for colonoscopy on Friday Vitals/I&O's: Vital Signs Temp Pulse Resp BP Pulse Ox 98.6 F 77 16 152/53 H 98 06/27/19 07:53 06/27/19 07:53 06/27/19 07:53 06/27/19 07:53 06/27/19 07:53 Oxygen Flow Rate (L/min) 2 Oxygen Delivery Method Room Air Weight: 188 lb 7.924 oz Body Mass Index (BMI) 32.3 Finger Stick Blood Glucose 595 Intake and Output for Last 24 Hours 06/25/19 06/26/19 06/27/19 23:59 23:59 23:59 Intake Total 500 / 500 1410 / 1410 120 / 120 Output Total 350 / 350 Balance 500 / 500 1060 / 1060 120 / 120 General: Alert, Oriented x3, Cooperative, No apparent distress HEENT: Atraumatic, PERRLA, EOMI, Normocephalic Oral: Moist Mucosa Neck: Supple, No JVD, Negative Carotid Bruits Lungs: Clear to auscultation, Normal air movement, No rhonchi, No wheeze, No rales Cardiovascular: Regular rate, Regular Rhythm, Normal S1, Normal S2, No murmurs Abdomen: Bowel Sounds Present, Soft, Non Tender, Non-Distended, No Hepato- splenomegaly Extremities: No clubbing, No cyanosis, No edema, Capillary Refill Less than 3 Seconds Skin: No rashes, No breakdown Musculoskeletal: No Tenderness to Palpation of Joints or Extremities Lymphatic: No Cervical, Supraclavicular, or Inguinal Adenopathy Neurological: Cranial nerves II-XII grossly intact Psych/Mental Status: Normal Affect, Appropriate, Alert and oriented to time, place, person, mood and affect Microbiology Past 72 Hours 06/25/19 19:35 Stool Enteric Bacteriology - Final 06/25/19 19:35 Stool Stool Lactoferrin - Final 06/25/19 18:57 Stool Stool Occult Blood (SIMONE) - Final Laboratory Results 06/26/19 11:57: POC Glucose 262 H 06/26/19 16:33: POC Glucose 156 H 06/26/19 18:45: Crossmatch See Detail 06/26/19 20:35: Troponin I < 0.015 06/26/19 20:35: WBC 6.9, RBC 2.87 L, Hgb 8.4 L, Hct 26.0 L, MCV 90.6, MCH 29.3, MCHC 32.3, RDW Std Deviation 48.7 H, RDW Coeff of Dottie 14.9 H, Plt Count 145 L, MPV 9.9, Immature Gran % (Auto) 2.800 H, Neut % (Auto) 47.0, Lymph % (Auto) 38.7, [place] % (Auto) 9.2, Eos % (Auto) 2.0, Baso % (Auto) 0.3, Absolute Neuts (auto) 3.2, Absolute Lymphs (auto) 2.65, Nucleated RBC % 0.3 06/26/19 22:12: POC Glucose 188 H 06/27/19 00:29: Troponin I 0.019 06/27/19 04:10: WBC 4.8, RBC 2.71 L, Hgb 8.0 L, Hct 24.9 L, MCV 91.9, MCH 29.5, MCHC 32.1, RDW Std Deviation 48.8 H, RDW Coeff of Dottie 14.7 H, Plt Count 127 L, MPV 10.0, Immature Gran % (Auto) 2.900 H, Neut % (Auto) 50.8, Lymph % (Auto) 33.7, [place] % (Auto) 8.9, Eos % (Auto) 3.3, Baso % (Auto) 0.4, Absolute Neuts (auto) 2.5, Absolute Lymphs (auto) 1.63, Nucleated RBC % 0.6 06/27/19 04:10: Sodium 144, Potassium 3.7, Chloride 108 H, Carbon Dioxide 29.0, Anion Gap 7, BUN 15, Creatinine 1.37 H, Estim Creat Clear Calc 37.24, Est GFR (MDRD) Af Amer 50 L, Est GFR (MDRD) Non-Af 42 L, BUN/Creatinine Ratio 10.9, Glucose 120 H, Calcium 7.5 L, Troponin I 0.049 H 06/27/19 08:08: POC Glucose 117 H 06/27/19 09:35: Hgb 10.1 L, Hct 29.9 L Current Medications Acetaminophen (Tylenol) 650 mg PO Q6H PRN PRN PRN Reason: Mild Pain (1-3)/Temp > 100.7 F Al Hydroxide/Mg Hydroxide (Mylanta Ii) 30 ml PO Q4H PRN PRN PRN Reason: gi distress Albuterol Sulfate (Ventolin Aerosols) 2.5 mg INHALATION Q2H PRN PRN PRN Reason: dyspnea, wheezing Albuterol/Ipratropium (Duoneb) 3 ml INHALATION Q6HWA.RT [facility] Last Admin: 06/27/19 07:43 Dose: 3 ml Documented by: Atorvastatin Calcium (Lipitor) 80 mg PO QHS [facility] Last Admin: 06/26/19 22:15 Dose: 80 mg Documented by: Carvedilol (Coreg) 12.5 mg PO BID [facility] Last Admin: 06/27/19 09:56 Dose: 12.5 mg Documented by: Dextrose (D50w Syringe) 0 gm IV X1 PRN; Protocol PRN Reason: Hypoglycemia Glucagon () 1 mg IM .X1 PRN PRN Reason: Hypoglycemia Hydralazine HCl (Apresoline) 100 mg PO TID [facility] Last Admin: 06/27/19 05:53 Dose: 100 mg Documented by: Hydralazine HCl (Apresoline Iv) 10 mg IV Q4H PRN PRN PRN Reason: SBP > 160 Last Admin: 06/26/19 20:10 Dose: 10 mg Documented by: Pantoprazole Sodium 40 mg/ (Sodium Chloride) 110 mls @ 330 mls/hr IV Q24 [facility] Last Admin: 06/26/19 07:49 Dose: Not Given Documented by: Sodium Chloride () 250 mls @ 15 mls/hr IV .[id number] PRN PRN Reason: SALINE FLUSH Sodium Chloride () 500 mls @ 15 mls/hr IV .[id number] PRN PRN Reason: SALINE FLUSH Insulin Glargine (Lantus (Bkc)) 20 units SC QHS [facility] Last Admin: 06/26/19 22:15 Dose: 20 units Documented by: Insulin Human Lispro (Humalog Kwikpen ([facility])) 12 unit SC BREAKFAST [facility] Last Admin: 06/27/19 08:15 Dose: 12 unit Documented by: Insulin Human Lispro (Humalog Kwikpen (Bk)) 16 unit SC 1200,1700 [facility] Last Admin: 06/26/19 16:43 Dose: 16 units Documented by: Insulin Human Lispro (Humalog Kwikpen ([facility])) 0 unit SC ACHS [facility]; Protocol Last Admin: 06/27/19 08:11 Dose: Not Given Documented by: Melatonin (Melatonin) 3 mg PO QHS PRN PRN PRN Reason: INSOMNIA Morphine Sulfate () 2 mg IV Q3H PRN PRN PRN Reason: Severe pain (7-10/10) Morphine Sulfate () 1 - 2 mg IV Q4H PRN PRN PRN Reason: Pain Score 1-10/10 Nitroglycerin (Nitrostat) 0.4 mg SUBLINGUAL Q5M PRN PRN Reason: CARDIAC/CHEST PAIN Last Admin: 06/26/19 21:56 Dose: 0.4 mg Documented by: Nutritional Formula (Lactose Free) (Glucerdawson Ashraf) 120 ml PO 4X/DAY [facility] Last Admin: 06/27/19 09:56 Dose: 120 ml Documented by: Ondansetron HCl (Zofran) 4 mg IV Q8H PRN PRN PRN Reason: NAUSEA/VOMITING Polysaccharide Iron Complex (Ferrex 150) [facility] Last Admin: 06/27/19 08:15 Dose: 150 mg Documented by: Senna/Docusate Sodium (Senokot-S, Loni-Colace) 2 tablet PO BID PRN PRN PRN Reason: Constipation Sodium Chloride () 5 - 15 ml IV UD PRN PRN Reason: SALINE FLUSH Sodium Chloride () 5 - 15 ml IV UD PRN PRN Reason: SALINE FLUSH Medical Necessity - Tobacco Use Smoking Status: Former smoker Assessment/Plan All Active Problems (Last Reviewed 06/04/19 @ 00:44 by Jacob Landeros MD) Discitis of cervical region (Acute) 1. Acute on chronic anemia * Hb in the custodial was 6.8, was 7.8 on admission. * she is s/p transfusion of 2 units of PRBCs after she developed chest pain overnight * chest pain thought to be due to demand ischemia; goal was to transfuse her 2 units of PRBCs for target Hb of 10 * Hb today is 10.1 * general surgery on ; for EGD and colonoscopy on Friday * 2. Chest pain * developed retrosternal, pressure like chest pain overnight. * troponin trended up slightly to 0.049; * EKG showed evidence of ischemia in inferior and anterolateral leads * cardiology on board * will benefit from stress test * await cardiology rec;s 3. Hypertension * poorly controlled. * BP is in 160s systolic; was in 180s systolic on admission * on PO hydralazine 100mg tid and metoprolol 25mg bid. losartan was added on overnight * 4. CKD 3: Cr is 1.37 today. Will monitor 5. History of DRESS syndrome * on PO prednisone taper. This is currently on hold o/a of anemia. * was thought to be due to vancomycin. Stable. * Will monitor * 6. History of discitis: completed vancomycin and rocephin therapy recently. stable. To follow up with ID upon discharge. 7. Type 2 diabetes mellitus * on Lantus 20 units nightly. * Insulin sliding scale. Accu-Cheks before meals at bedtime. * 8. History of hepatitis and hepatitis C: Stable. Has mildly elevated LFTs with AST of 82 and ALT of 102 which is chronic. Will monitor. DVT prophylaxis: SCDs. Code Visit Inpatient E&M: 13473 Subs Hosp L3
[2019-06-27] MEDS: 0.9% NaCl IVPB Med Flush (250 mL) 15 ML IV (10:18)
[2019-06-27] MEDS: Insulin Lispro 100 UNIT/ML INSULN.PEN SC ×2 (11:54→16:55)
[2019-06-27] MEDS: Insulin Lispro 100 UNIT/ML INSULN.PEN 16 UNIT SC ×2 (11:57→16:55)
[2019-06-27 12:01] LABS: Bedside Glucose 295 mg/dL (70-110)
[2019-06-27 17:11] LABS: Bedside Glucose 175 mg/dL (70-110)
--- NOTE | 2019-06-27 17:16 | CON.PCM_ITS ---
Reason for Consult Date of Consultation: 06/27/19 Reason for Consultation: Chest pain, EKG changes History of Present Illness: The patient is a 63 year old F with multiple comorbidities as listed above was admitted on 06/21 for inability to walk and discharged on 06/24 to SNF. She was sent back to ER for hemoglobin 6.8. In ED hemoglobin is 7.8. BUN/creatinine 21/1.42. She denies any obvious external blood loss including GI blood loss, hematuria, hemoptysis or external skin bruise/ecchymosis. [] In ED, stool for occult blood is negative as per ER physician. She was admitted for 1 unit of PRBC transfusion. Subsequent the patient had an episode of chest pain. During this time she also had ST depressions in the lateral and inferior leads. She received transfusion to bring her hemoglobin closer to 10. Since then she has not had any further chest pain. She was supposed to be on dual antiplatelet therapy due to a prior stroke. However this was held because of her drop in hemoglobin. At this time she is on a beta-nat and a statin. Review of systems: All systems reviewed. All else is negative except that in the HPI. Past Medical History Allergies/Adverse Reactions: Allergies ceftriaxone Allergy (Severe, Verified 06/25/19 17:48) Rash vancomycin Allergy (Severe, Verified 06/25/19 17:48) Rash Penicillins Allergy (Verified 06/25/19 17:48) Swelling oxycodone HCl [From Percocet] Adverse Reaction (Verified 06/25/19 17:48) Itching Home Medications: Ambulatory Orders Medication Instructions Recorded Ipratropium/Albuterol Sulfate 3 ml INHALATION Q6HWA.RT ampul.neb 04/27/19 [Duoneb] Atorvastatin Calcium [Lipitor] 80 mg PO QHS 06/21/19 Metoprolol Tartrate [Lopressor 25 mg PO BID 06/21/19 (beta nat)] Aspirin [Aspirin, Baby] 81 mg PO DAILY@0800 tab.chew 06/23/19 Insulin Lispro [Humalog KwikPen] 12 unit SUBCUT BREAKFAST 06/23/19 insuln.pen Iron Polysaccharide Complex 150 mg PO DAILYCM cap 06/23/19 [Ferrex 150] Triamcinolone 0.5% Cream [Kenalog] 1 applic TOPICAL BID tube 06/23/19 hydrALAZINE [Apresoline] 50 mg PO TID tab 06/23/19 Insulin Glargine,Hum.rec.anlog 20 unit SQ QHS 06/25/19 [Basaglar Kwikpen U-100] Insulin Lispro [Admelog Solostar] 16 unit SQ BID 06/25/19 Insulin Lispro [Humalog KwikPen] 16 unit SUBCUT BID 06/25/19 Mag Hydrox/Aluminum Hyd/Simeth 30 ml PO Q4H PRN PRN 06/25/19 [Antacid Suspension] Prednisone 20 mg PO DAILY 06/25/19 Past Medical History (Chronic Problems): Chronic Problems (Last Reviewed 06/04/19 @ 00:44 by Jacob Landeros MD) DRESS syndrome (Chronic) Debility (Chronic) Acute on chronic anemia (Chronic) Acute CVA (cerebrovascular accident) (Chronic) Asthma exacerbation (Chronic) Elevated liver enzymes (Chronic) Diabetes (Chronic) Rheumatoid arthritis (Chronic) Hypertensive emergency (Chronic) Type II diabetes mellitus (Chronic) Hypertension (Chronic) Surgical History: - Psychiatric History: 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 [employer] History: No pertinent [employer] history - *Family History Maternal Family History: Family History (Last Reviewed 06/04/19 @ 00:46 by Jacob Landeros MD) Mother Hypertension Emphysema/COPD Sister Hypertension History Items: No pertinent history Paternal Family History: Family History (Last Reviewed 06/04/19 @ 00:46 by Jacob Landeros MD) Mother Hypertension Emphysema/COPD Sister Hypertension History Items: No pertinent history Smoking Status: Former smoker Objective: Vital Signs Temp Pulse Resp BP Pulse Ox 99.2 F H 82 18 160/68 H 98 06/27/19 14:01 06/27/19 15:00 06/27/19 14:01 06/27/19 14:08 06/27/19 14:01 Oxygen Flow Rate (L/min) 2 Oxygen Delivery Method Room Air Weight: 188 lb 7.924 oz Body Mass Index (BMI) 32.3 Finger Stick Blood Glucose 595 Intake and Output for Last 24 Hours 06/25/19 06/26/19 06/27/19 23:59 23:59 23:59 Intake Total 500 / 500 1410 / 1410 680.75 / 680.75 Output Total 350 / 350 Balance 500 / 500 1060 / 1060 680.75 / 680.75 General: Awake, Oriented x 3 HEENT: Atraumatic Oral: Moist Mucosa Neck: Supple Lungs: Clear to auscultation Cardiovascular: Regular Rhythm Abdomen: Soft Extremities: No edema Skin: No Rashes Psych/Mental Status: Appropriate 06/26/19 20:35: Troponin I < 0.015 06/26/19 20:35: WBC 6.9, RBC 2.87 L, Hgb 8.4 L, Hct 26.0 L, MCV 90.6, MCH 29.3, MCHC 32.3, Plt Count 145 L, MPV 9.9, Immature Gran % (Auto) 2.800 H, Neut % (Auto) 47.0, Lymph % (Auto) 38.7, [place] % (Auto) 9.2, Eos % (Auto) 2.0, Baso % (Auto) 0.3, Absolute Neuts (auto) 3.2, Nucleated RBC % 0.3 06/27/19 00:29: Troponin I 0.019 06/27/19 04:10: WBC 4.8, RBC 2.71 L, Hgb 8.0 L, Hct 24.9 L, MCV 91.9, MCH 29.5, MCHC 32.1, Plt Count 127 L, MPV 10.0, Immature Gran % (Auto) 2.900 H, Neut % (Auto) 50.8, Lymph % (Auto) 33.7, [place] % (Auto) 8.9, Eos % (Auto) 3.3, Baso % (Auto) 0.4, Absolute Neuts (auto) 2.5, Nucleated RBC % 0.6 06/27/19 04:10: Sodium 144, Potassium 3.7, Chloride 108 H, Carbon Dioxide 29.0, Anion Gap 7, BUN 15, Creatinine 1.37 H, Est GFR (MDRD) Af Amer 50 L, Est GFR (MDRD) Non-Af 42 L, BUN/Creatinine Ratio 10.9, Glucose 120 H, Calcium 7.5 L, Troponin I 0.049 H 06/27/19 09:35: Hgb 10.1 L, Hct 29.9 L Rhythm: EKG: ECHO: Stress Test: Cardiac Cath: PCI: CT Surgery: Holter monitor: EPS: PPM: CXR: Chest CT Scan: Assessment/Plan 1. Chest pain: Patient probably has underlying coronary artery disease in addition to her anemia which caused her chest pain and EKG changes. However because of her significant anemia and the fact that her chest pain has resolved with correcting that to a certain extent I think it will be reasonable to treat her initially with medications which would include at least one antiplatelet medication, beta-nat and statin. If she has no further chest pain then she can continue to undergo medical therapy. If she has further chest pain then we can consider coronary angiography.
[2019-06-27 20:31] LABS: Bedside Glucose 85 mg/dL (70-110)
[2019-06-27] MEDS: Atorvastatin Calcium 80 MG Tablet PO (21:21)
[2019-06-27 21:30] LABS: Bedside Glucose 103 mg/dL (70-110)
[2019-06-28] VITALS (15 sets, daily range): BP systolic 147–199; BP diastolic 56–90; PULSE 71–91; RESP 16–20; TEMP 36.8–36.9; O2SAT 95–99
[2019-06-28 06:17] LABS: Absolute Lymphocyte Count 1.85 X10^3/uL (0.83-4.51); Absolute Neutrophil Count 2.5 X10^3/uL (2.0-7.7); Basophil# 0.02 X10^3/uL; Basophil% 0.4 % (0-1); Eosinophil# 0.26 X10^3/uL; Hematocrit 29.5 % (37-47); Hemoglobin 9.3 g/dL (12.0-15.0); Lymphocyte # 1.85 X10^3/ul (4.0); Lymphocyte % 35.4 % (19-41); Mean Corp Hgb Conc 31.5 g/dL (32-36); Mean Corpuscular Hgb 28.9 pg (27.0-32.0); Mean Corpuscular Volume 91.6 fL (81-99); Mean Platelet Vol. 9.9 fl (6.2-12.0); Monocyte# 0.44 X10^3/uL; Monocyte% 8.4 % (0-10); NRBC Flagged by Analyzer 0.4 % (0-5); Neutrophil # 2.47 X10^3/uL (2.7-7.7); Neutrophil % 47.4 % (47-70); Platelet Count 138 K/mm3 (150-450); RBC Distribution Width CV 14.8 % (11.6-14.6); RBC Distribution Width SD 49.2 fl (35.1-43.9); Red Blood Count 3.22 M/mm3 (4.2-5.4); White Blood Count 5.2 K/mm3 (4.4-11.0)
[2019-06-28] MEDS: hydrALAZINE 50 MG Tablet 100 MG PO ×3 (06:29→21:34)
[2019-06-28 06:36] LABS: Bedside Glucose 120 mg/dL (70-110)
[2019-06-28 06:38] LABS: Anion Gap 6 (5-15); BUN 20 mg/dL (7-18); BUN/Creat Ratio 15.5 RATIO (10-20); Calcium,Total 7.8 mg/dL (8.5-10.1); Chloride 108 mmol/L (98-107); Creatinine, Serum 1.29 mg/dL (0.55-1.02); EST Glomerular Filtration Rate 45 mL/min (>60); Est Glom Filt Rate - Afr Amer 54 mL/min (>60); Estimated Creatinine Clearance 39.55 ml/min; Glucose 109 mg/dL (74-106); Potassium 3.8 mmol/L (3.5-5.1); Sodium Level 141 mmol/L (136-145)
[2019-06-28] MEDS: Ipratropium/Albuterol Sulfate 3 ML AMPUL.NEB INHALATION ×3 (07:10→19:59)
--- NOTE | 2019-06-28 08:20 | PCM.PN.SRG ---
Subjective: Patient had no chest pain overnight. No gross blood in her stool. No nausea or vomiting. - Physical Exam General: Alert, Oriented x3 Neck: No JVD Lungs: Normal air movement Cardiovascular: Regular rate, Regular Rhythm Abdomen: Soft, Non Tender, Non-Distended Vital Signs Temp Pulse Resp BP Pulse Ox 98.2 F 78 16 147/56 H 97 06/28/19 03:30 06/28/19 07:27 06/28/19 03:30 06/28/19 03:30 06/28/19 03:30 Oxygen Flow Rate (L/min) 2 Oxygen Delivery Method Room Air Weight: 188 lb 7.924 oz Body Mass Index (BMI) 32.3 Finger Stick Blood Glucose 595 Intake and Output for Last 24 Hours 06/26/19 06/27/19 06/28/19 23:59 23:59 23:59 Intake Total 1410 / 1410 1200.75 / 1400.75 200 / 200 Output Total 350 / 350 Balance 1060 / 1060 1200.75 / 1400.75 200 / 200 Microbiology Past 72 Hours 06/25/19 19:35 Enteric Bacteriology - Final Stool 06/25/19 19:35 Stool Lactoferrin - Final Stool 06/25/19 18:57 Stool Occult Blood (SIMONE) - Final Stool Laboratory Tests Past 24 Hrs 06/26/19 06/27/19 06/28/19 18:45 09:35 05:22 WBC 5.2 RBC 3.22 L Hgb 10.1 L 9.3 L Hct 29.9 L 29.5 L MCV 91.6 MCH 28.9 MCHC 31.5 L RDW Std Deviation 49.2 H RDW Coeff of Dottie 14.8 H Plt Count 138 L MPV 9.9 Immature Gran % (Auto) 3.400 H Neut % (Auto) 47.4 Lymph % (Auto) 35.4 [place] % (Auto) 8.4 Eos % (Auto) 5.0 Baso % (Auto) 0.4 Absolute Neuts (auto) 2.5 Absolute Lymphs (auto) 1.85 Nucleated RBC % 0.4 Sodium Potassium Chloride Carbon Dioxide Anion Gap BUN Creatinine Estim Creat Clear Calc Est GFR (MDRD) Af Amer Est GFR (MDRD) Non-Af BUN/Creatinine Ratio Glucose Calcium Crossmatch See Detail 06/28/19 05:22 WBC RBC Hgb Hct MCV MCH MCHC RDW Std Deviation RDW Coeff of Dottie Plt Count MPV Immature Gran % (Auto) Neut % (Auto) Lymph % (Auto) [place] % (Auto) Eos % (Auto) Baso % (Auto) Absolute Neuts (auto) Absolute Lymphs (auto) Nucleated RBC % Sodium 141 Potassium 3.8 Chloride 108 H Carbon Dioxide 27.0 Anion Gap 6 BUN 20 H Creatinine 1.29 H Estim Creat Clear Calc 39.55 Est GFR (MDRD) Af Amer 54 L Est GFR (MDRD) Non-Af 45 L BUN/Creatinine Ratio 15.5 Glucose 109 H Calcium 7.8 L Crossmatch POC Glucose 06/28/19 06/27/19 06/27/19 06:30 21:20 20:24 POC Glucose 120 H 103 85 06/27/19 06/27/19 16:53 11:51 POC Glucose 175 H 295 H Medical Necessity - Tobacco Use Smoking Status: Former smoker Assessment/Plan All Active Problems (Last Reviewed 06/04/19 @ 00:44 by Jacob Landeros MD) Discitis of cervical region (Acute) 63-year-old female with anemia 1. I will place the patient on clear liquids this morning and order a bowel prep for her. Plan for EGD and colonoscopy tomorrow. N.p.o. after midnight. 2. I explained endoscopy in detail to the patient. I explained the risks including but not limited to stroke or heart attack with anesthesia, perforation of the GI tract, bleeding, infection. I explained that any of these could necessitate further emergency surgery. The patient understands and all questions were answered sufficiently. The patient wishes to proceed with procedure. Alfonzo Barillas MD Pager: [facility] [address] [place] [address], [address] [place] [address] Office:
[2019-06-28 09:20] LABS: Vitamin B12 354 pg/mL (211-911)
[2019-06-28] MEDS: Iron Polysaccharide Complex 150 MG CAPSULE PO (09:43)
[2019-06-28] MEDS: Carvedilol 12.5 MG Tablet PO ×2 (09:43→21:34)
[2019-06-28] MEDS: 0.9% NaCl Peripheral Flush Adult/Peds IV (09:52)
--- NOTE | 2019-06-28 10:56 | CASEMGMT ---
LU recently sent patient to [facility]. LU faxed updates to [facility]. Patient will require insurance authorization before she can return. Bekah SAMAYOA MSW
[2019-06-28 12:01] LABS: Bedside Glucose 158 mg/dL (70-110)
[2019-06-28] MEDS: Insulin Lispro 100 UNIT/ML INSULN.PEN 16 UNIT SC ×2 (12:21→17:27)
[2019-06-28] MEDS: Insulin Lispro 100 UNIT/ML INSULN.PEN SC ×3 (12:22→21:33)
[2019-06-28] MEDS: Bisacodyl 5 MG Tablet 20 MG PO (14:58)
[2019-06-28 16:40] LABS: Bedside Glucose 214 mg/dL (70-110)
--- NOTE | 2019-06-28 16:48 | PCM.PN.HOSP ---
Patient Problems: Active and Suspected Problems (Last Reviewed 06/04/19 @ 00:44 by Jacob Landeros MD) Acute on chronic anemia (Acute) Subjective: Feels. Petechial rash that she had has completely resolved, leaving slough skin on LE. Vitals/I&O's: Vital Signs Temp Pulse Resp BP Pulse Ox 36.9 C 72 17 180/74 H 97 06/28/19 14:56 06/28/19 15:21 06/28/19 14:56 06/28/19 14:56 06/28/19 14:56 Oxygen Flow Rate (L/min) 2 Oxygen Delivery Method Room Air Weight: 85.5 kg Body Mass Index (BMI) 32.3 Finger Stick Blood Glucose 595 Intake and Output for Last 24 Hours 06/26/19 06/27/19 06/28/19 23:59 23:59 23:59 Intake Total 1410 / 1410 1200.75 / 1400.75 935 / 935 Output Total 350 / 350 Balance 1060 / 1060 1200.75 / 1400.75 935 / 935 General: Alert, No apparent distress HEENT: Atraumatic, Normocephalic Oral: Moist Mucosa, No Gingival or Mucosal Lesions/ Ulcerations Neck: No Nodes, Thyroid Normal Size and Texture Lungs: Clear to auscultation, Normal air movement, No rhonchi, No wheeze Cardiovascular: Regular rate, Regular Rhythm, Normal S1, Normal S2 Abdomen: Bowel Sounds Present, Soft, Non Tender, Non-Distended, No Hepato-splenomegaly Extremities: No edema, No Calf Tenderness Skin: - - no erythema. sloughing skin on LE. Musculoskeletal: No Tenderness to Palpation of Joints or Extremities, No Muscle Wasting Psych/Mental Status: Normal Affect, Appropriate Microbiology Past 72 Hours 06/25/19 19:35 Stool Enteric Bacteriology - Final 06/25/19 19:35 Stool Stool Lactoferrin - Final 06/25/19 18:57 Stool Stool Occult Blood (SIMONE) - Final Laboratory Results 06/26/19 06:53: Vitamin B12 354 06/27/19 16:53: POC Glucose 175 H 06/27/19 20:24: POC Glucose 85 06/27/19 21:20: POC Glucose 103 06/28/19 05:22: WBC 5.2, RBC 3.22 L, Hgb 9.3 L, Hct 29.5 L, MCV 91.6, MCH 28.9, MCHC 31.5 L, RDW Std Deviation 49.2 H, RDW Coeff of Dottie 14.8 H, Plt Count 138 L, MPV 9.9, Immature Gran % (Auto) 3.400 H, Neut % (Auto) 47.4, Lymph % (Auto) 35.4, [place] % (Auto) 8.4, Eos % (Auto) 5.0, Baso % (Auto) 0.4, Absolute Neuts (auto) 2.5, Absolute Lymphs (auto) 1.85, Nucleated RBC % 0.4 06/28/19 05:22: Sodium 141, Potassium 3.8, Chloride 108 H, Carbon Dioxide 27.0, Anion Gap 6, BUN 20 H, Creatinine 1.29 H, Estim Creat Clear Calc 39.55, Est GFR (MDRD) Af Amer 54 L, Est GFR (MDRD) Non-Af 45 L, BUN/Creatinine Ratio 15.5, Glucose 109 H, Calcium 7.8 L 06/28/19 06:30: POC Glucose 120 H 06/28/19 11:46: POC Glucose 158 H 06/28/19 16:34: POC Glucose 214 H Current Medications Acetaminophen (Tylenol) 650 mg PO Q6H PRN PRN PRN Reason: Mild Pain (1-3)/Temp > 100.7 F Al Hydroxide/Mg Hydroxide (Mylanta Ii) 30 ml PO Q4H PRN PRN PRN Reason: gi distress Albuterol Sulfate (Ventolin Aerosols) 2.5 mg INHALATION Q2H PRN PRN PRN Reason: dyspnea, wheezing Albuterol/Ipratropium (Duoneb) 3 ml INHALATION Q6HWA.RT [facility] Last Admin: 06/28/19 12:47 Dose: 3 ml Documented by: Atorvastatin Calcium (Lipitor) 80 mg PO QHS [facility] Last Admin: 06/27/19 21:21 Dose: 80 mg Documented by: Carvedilol (Coreg) 12.5 mg PO BID [facility] Last Admin: 06/28/19 09:43 Dose: 12.5 mg Documented by: Dextrose (D50w Syringe) 0 gm IV X1 PRN; Protocol PRN Reason: Hypoglycemia Glucagon () 1 mg IM .X1 PRN PRN Reason: Hypoglycemia Hydralazine HCl (Apresoline) 100 mg PO TID [facility] Last Admin: 06/28/19 14:58 Dose: 100 mg Documented by: Hydralazine HCl (Apresoline Iv) 10 mg IV Q4H PRN PRN PRN Reason: SBP > 160 Last Admin: 06/26/19 20:10 Dose: 10 mg Documented by: Pantoprazole Sodium 40 mg/ (Sodium Chloride) 110 mls @ 330 mls/hr IV Q24 [facility] Last Infusion: 06/28/19 10:11 Dose: Infused Documented by: Sodium Chloride () 250 mls @ 15 mls/hr IV .[id number] PRN PRN Reason: SALINE FLUSH Last Infusion: 06/27/19 10:21 Dose: 0 mls/hr Documented by: Sodium Chloride () 500 mls @ 15 mls/hr IV .[id number] PRN PRN Reason: SALINE FLUSH Insulin Glargine (Lantus (Bkc)) 20 units SC QHS [facility] Last Admin: 06/27/19 21:21 Dose: 20 units Documented by: Insulin Human Lispro (Humalog Kwikpen (Bkc)) 12 unit SC BREAKFAST [facility] Last Admin: 06/27/19 11:53 Dose: 12 unit Documented by: Insulin Human Lispro (Humalog Kwikpen (Bkc)) 16 unit SC 1200,1700 [facility] Last Admin: 06/28/19 12:21 Dose: 8 units Documented by: Insulin Human Lispro (Humalog Kwikpen (Bkc)) 0 unit SC ACHS [facility]; Protocol Last Admin: 06/28/19 12:22 Dose: 1 units Documented by: Melatonin (Melatonin) 3 mg PO QHS PRN PRN PRN Reason: INSOMNIA Morphine Sulfate () 2 mg IV Q3H PRN PRN PRN Reason: Severe pain (7-10/10) Morphine Sulfate () 1 - 2 mg IV Q4H PRN PRN PRN Reason: Pain Score 1-10/10 Nitroglycerin (Nitrostat) 0.4 mg SUBLINGUAL Q5M PRN PRN Reason: CARDIAC/CHEST PAIN Last Admin: 06/26/19 21:56 Dose: 0.4 mg Documented by: Nutritional Formula (Lactose Free) (Glucerna Shake) 120 ml PO 4X/DAY [facility] Last Admin: 06/28/19 15:01 Dose: Not Given Documented by: Ondansetron HCl (Zofran) 4 mg IV Q8H PRN PRN PRN Reason: NAUSEA/VOMITING Polysaccharide Iron Complex (Ferrex 150) 150 mg PO DAILYCM [facility] Last Admin: 06/28/19 09:43 Dose: 150 mg Documented by: Senna/Docusate Sodium (Senokot-S, Loni-Colace) 2 tablet PO BID PRN PRN PRN Reason: Constipation Sodium Chloride () 5 - 15 ml IV UD PRN PRN Reason: SALINE FLUSH Last Admin: 06/28/19 09:52 Dose: 10 ml Documented by: Sodium Chloride () 5 - 15 ml IV UD PRN PRN Reason: SALINE FLUSH STROKE Vital Signs/Narrative: Vital Signs Temp Pulse Resp BP Pulse Ox 06/28/19 15:21 72 06/28/19 14:58 77 06/28/19 14:56 36.9 C 77 17 180/74 H 97 Medical Necessity - Tobacco Use Smoking Status: Former smoker Assessment/Plan All Active Problems (Last Reviewed 06/04/19 @ 00:44 by Jacob Landeros MD) DRESS syndrome (Resolved) Acute on chronic anemia (Acute) Discitis of cervical region (Resolved) 1. acute blood loss anemia 11.6 06/03, down to 7.6 on 06/26 transfused 3 units of PRBCs, prior to my direct involvement I will not transfuse any more blood until Hg at 7 or less check iron studies B12 and folate have been normal EGD and colonoscopy planned for 06/29 on pantoprazole IV 2. chest pain resolved minimal elevation of troponins cardiology following 3. recent DRESS syndrome likely 2/2 vancomycin resolved, now skin is sloughing off, particularly in the LE add lotion/emollient to LE 4. HTN had been accelerated improved overall, but still elevated at time continue carvedilol 12.5 BID monitor for now consider restarting amlodipine, which was taken off previously because it was unclear if it was causing the DRESS syndrome, or starting an HARRISON- 5. VTE proph: SCDs 6. Disposition: patient again wanting to go back home rather than returning to SNF. Patient did very well with therapy today. Plan to return home when medically stable. Code Visit Inpatient E&M: 55779 Subs Hosp L2
[2019-06-28] MEDS: Polyethylene Glycol 3350 BOWEL PREP PO (17:26)
--- NOTE | 2019-06-28 17:51 | PN.CARD_ITS ---
Subjectve: No further chest pain. Objective: Vital Signs Temp Pulse Resp BP Pulse Ox 98.5 F 72 17 180/74 H 97 06/28/19 14:56 06/28/19 15:21 06/28/19 14:56 06/28/19 14:56 06/28/19 14:56 Oxygen Flow Rate (L/min) 2 Oxygen Delivery Method Room Air Weight: 188 lb 7.924 oz Body Mass Index (BMI) 32.3 Finger Stick Blood Glucose 595 Intake and Output for Last 24 Hours 06/26/19 06/27/19 06/28/19 23:59 23:59 23:59 Intake Total 1410 / 1410 1200.75 / 1400.75 935 / 935 Output Total 350 / 350 Balance 1060 / 1060 1200.75 / 1400.75 935 / 935 General: Awake, Alert, Oriented x 3 HEENT: Atraumatic Oral: Moist Mucosa Neck: Supple Lungs: Clear to auscultation Cardiovascular: Regular Rhythm Abdomen: Soft Extremities: No edema Skin: No Rashes Psych/Mental Status: Appropriate 06/28/19 05:22: WBC 5.2, RBC 3.22 L, Hgb 9.3 L, Hct 29.5 L, MCV 91.6, MCH 28.9, MCHC 31.5 L, Plt Count 138 L, MPV 9.9, Immature Gran % (Auto) 3.400 H, Neut % (Auto) 47.4, Lymph % (Auto) 35.4, [place] % (Auto) 8.4, Eos % (Auto) 5.0, Baso % (Auto) 0.4, Absolute Neuts (auto) 2.5, Nucleated RBC % 0.4 06/28/19 05:22: Sodium 141, Potassium 3.8, Chloride 108 H, Carbon Dioxide 27.0, Anion Gap 6, BUN 20 H, Creatinine 1.29 H, Est GFR (MDRD) Af Amer 54 L, Est GFR (MDRD) Non-Af 45 L, BUN/Creatinine Ratio 15.5, Glucose 109 H, Calcium 7.8 L Rhythm: EKG: ECHO: Stress Test: Cardiac Cath: PCI: CT Surgery: Holter monitor: EPS: PPM: CXR: Chest CT Scan: Medical Necessity - Tobacco Use Smoking Status: Former smoker Assessment/Plan 1. Chest pain: Patient probably has underlying coronary artery disease in addition to her anemia which caused her chest pain and EKG changes. However because of her significant anemia and the fact that her chest pain has resolved with correcting that to a certain extent I think it will be reasonable to treat her initially with medications which would include at least one antiplatelet medication, beta-nat and statin. If she has no further chest pain then she can continue to undergo medical therapy. If she has further chest pain then we can consider coronary angiography. We will sign off at this time. She can follow-up with us as an outpatient. If she develops any further chest pain or if her clinical situation warrants in any other way please free feel to contact us again.
[2019-06-28] MEDS: LORazepam 0.5 MG Tablet PO (21:34)
[2019-06-28] MEDS: Atorvastatin Calcium 80 MG Tablet PO (21:34)
[2019-06-28 21:41] LABS: Bedside Glucose 190 mg/dL (70-110)
[2019-06-29] VITALS (16 sets, daily range): BP systolic 124–179; BP diastolic 66–85; PULSE 65–93; RESP 12–18; TEMP 35.8–37.2; O2SAT 98–99; BMI 32.3
--- NOTE | 2019-06-29 05:55 | EKG12_ITS ---
Test Reason : AM EKG Blood Pressure : / mmHG Vent. Rate : 070 BPM Atrial Rate : 070 BPM P-R Int : 166 ms QRS Dur : 070 ms QT Int : 412 ms P-R-T Axes : 061 084 070 degrees QTc Int : 444 ms Normal sinus rhythm Septal infarct , age undetermined Abnormal ECG When compared with ECG of 26-JUN-2019 23:04, MANUAL COMPARISON REQUIRED, DATA IS UNCONFIRMED Confirmed by PADILLA CHENEY ([id number]), editor school photograph ARTEMIO PUGH ([id number]) on 07/02/2019 10:32:02 AM Referred By: Deni Gleason Confirmed By:PADILLA CHENEY
[2019-06-29 06:18] LABS: Absolute Lymphocyte Count 1.67 X10^3/uL (0.83-4.51); Basophil# 0.03 X10^3/uL; Basophil% 0.5 % (0-1); Eosinophil# 0.22 X10^3/uL; Hematocrit 31.5 % (37-47); Hemoglobin 10.2 g/dL (12.0-15.0); Lymphocyte # 1.67 X10^3/ul (4.0); Lymphocyte % 30.3 % (19-41); Mean Corp Hgb Conc 32.4 g/dL (32-36); Mean Corpuscular Hgb 29.5 pg (27.0-32.0); Mean Platelet Vol. 9.3 fl (6.2-12.0); Monocyte# 0.42 X10^3/uL; Monocyte% 7.6 % (0-10); NRBC Flagged by Analyzer 0 % (0-5); Neutrophil # 3.04 X10^3/uL (2.7-7.7); Neutrophil % 55.2 % (47-70); Platelet Count 132 K/mm3 (150-450); RBC Distribution Width CV 14.6 % (11.6-14.6); RBC Distribution Width SD 47.4 fl (35.1-43.9); Red Blood Count 3.46 M/mm3 (4.2-5.4); White Blood Count 5.5 K/mm3 (4.4-11.0)
[2019-06-29 06:43] LABS: Anion Gap 8 (5-15); BUN 14 mg/dL (7-18); BUN/Creat Ratio 11.8 RATIO (10-20); Calcium,Total 8.2 mg/dL (8.5-10.1); Chloride 108 mmol/L (98-107); Creatinine, Serum 1.19 mg/dL (0.55-1.02); EST Glomerular Filtration Rate 49 mL/min (>60); Est Glom Filt Rate - Afr Amer 59 mL/min (>60); Estimated Creatinine Clearance 42.87 ml/min; Ferritin 793 ng/mL (8-252); Glucose 95 mg/dL (74-106); Iron 56 ug/dL (50-170); Iron Binding Capacity,Total 294 ug/dL (250-450); Potassium 3.7 mmol/L (3.5-5.1); Sodium Level 140 mmol/L (136-145)
[2019-06-29] MEDS: Ipratropium/Albuterol Sulfate 3 ML AMPUL.NEB INHALATION (06:56)
[2019-06-29] MEDS: 0.9% NaCl Peripheral Flush Adult/Peds IV (08:48)
[2019-06-29] MEDS: hydrALAZINE 20 MG/ML Vial 10 MG IV (08:57)
[2019-06-29 09:05] LABS: Bedside Glucose 94 mg/dL (70-110)
--- NOTE | 2019-06-29 09:09 | CASEMGMT ---
LU spoke with therapy yesterday and patient does not need PT/OT as she is doing well. Patient's main problem is managing her medications. LU met with patient. LU asked her about going back to correction or going home with some assistance with managing medications. She said she wants to go home. LU told her about [facility]. She said she is more than willing to let someone come out and help her with her medications. She said her 14 yo granddaughter would set them up for her before she went to school. LU told her it would be better to have someone else help her so her granddaughter can be a kid. She agreed with this plan. LU called Zev with [facility] and told her about patient. She will review patient and check in with patient's PCP. LU obtained patient's correct address as it is currently listed as [facility] and changed it in the computer. Bekah SAMAYOA MSW
[2019-06-29] MEDS: Lactated Ringers 1,000 ML 100 ML IV (09:51)
--- NOTE | 2019-06-29 11:20 | OP.ENDO_ITS ---
06/29/2019 Prince Cummins Re : Upper GI endoscopy procedure for Aydee Chaidez Dear Dr. Cummins This procedure was performed on Saturday, June 29, 2019. My impressions and recommendations are as follows: Impressions : - Normal esophagus. - Normal stomach. - Normal examined duodenum. - Small hiatal hernia. - No specimens collected. Recommendations : - Discharge patient to home. - Continue present medications. My findings are described in the full procedure note, which is enclosed. If I can be of further assistance, please feel free to contact me at Doctor phone number(s): , Work: . Sincerely, Alfonzo Barillas MD 06/29/2019 11:19:51 AM This report has been signed electronically.
--- NOTE | 2019-06-29 11:21 | OP.ENDO_ITS ---
06/29/2019 Prince Cummins Re : Colonoscopy procedure for Aydee Chaidez Dear Dr. Cummins This procedure was performed on Saturday, June 29, 2019. My impressions and recommendations are as follows: Impressions : - The entire examined colon is normal on direct and retroflexion views. - No specimens collected. Recommendations : - Discharge patient to home. - Resume previous diet. - Continue present medications. - Repeat colonoscopy in 10 years for screening purposes. My findings are described in the full procedure note, which is enclosed. If I can be of further assistance, please feel free to contact me at Doctor phone number(s): , Work: . Sincerely, Alfonzo Barillas MD 06/29/2019 11:21:02 AM This report has been signed electronically.
[2019-06-29] MEDS: Lisinopril 10 MG Tablet PO (12:07)
[2019-06-29] MEDS: Carvedilol 12.5 MG Tablet PO (12:07)
[2019-06-29] MEDS: Iron Polysaccharide Complex 150 MG CAPSULE PO (12:07)
[2019-06-29 12:16] LABS: Bedside Glucose 82 mg/dL (70-110)
--- NOTE | 2019-06-29 12:26 | CASEMGMT ---
Addendum entered by Bekah Hercules 06/29/19 13:07: SW stopped by patient's room again and reiterated that she will be getting a phone call from [facility] and [facility]. LU told her both of these services will help her to be able to stay at home as long as she allows them to come out and help. LU spoke with Zev with [facility] and she felt they should be able to make contact with patient in the next 24-48 hours. Bekah LOVELL Original Note: LU spoke with patient and she was asking if she is still going home. SW told her as far as SW is aware she is going home. LU again told her about [facility] and she is still in agreement. LU also told her about [employer] and she agreed to a referral. LU gave her pamphlet on [employer] and [facility]. Bekah SAMAYOA MSW
--- NOTE | 2019-06-29 13:08 | DCINST_ITS ---
- Discharge Diagnoses Current Active Problems: Current Active and Chronic Problems (Last Reviewed 06/04/19 @ 00:44 by Jacob Landeros MD) Acute on chronic anemia (Acute) You will use the following diet at home:: Cardiac Your food should be the consistency of: Regular Your liquids should be the consistency of: Regular/Thin Discharge Activity: Return to Normal Activity Call your doctor if you observe: Fever of 101 or Higher, Chest pain Allergies/Adverse Reactions: Allergies ceftriaxone Allergy (Severe, Verified 06/25/19 17:48) Rash vancomycin Allergy (Severe, Verified 06/25/19 17:48) Rash Penicillins Allergy (Verified 06/25/19 17:48) Swelling oxycodone HCl [From Percocet] Adverse Reaction (Verified 06/25/19 17:48) Itching Medications to take at Discharge Ipratropium/Albuterol Sulfate [Duoneb] 3 ml INHALATION Q6HWA.RT ampul.neb 04/27/19 Atorvastatin Calcium [Lipitor] 80 mg PO QHS 06/21/19 Aspirin [Aspirin, Baby] 81 mg PO DAILY@0800 tab.chew 06/23/19 Insulin Lispro [Humalog KwikPen] 12 unit SUBCUT BREAKFAST insuln.pen 06/23/19 Iron Polysaccharide Complex [Ferrex 150] 150 mg PO DAILYCM cap 06/23/19 Triamcinolone 0.5% Cream [Kenalog] 1 applic TOPICAL BID tube 06/23/19 Insulin Glargine,Hum.rec.anlog [Basaglar Kwikpen U-100] 20 unit SQ QHS 06/25/19 Insulin Lispro [Admelog Solostar] 16 unit SQ BID 06/25/19 Insulin Lispro [Humalog KwikPen] 16 unit SUBCUT BID 06/25/19 Mag Hydrox/Aluminum Hyd/Simeth [Antacid Suspension] 30 ml PO Q4H PRN PRN 06/25/19 Carvedilol [Coreg (Beta Filomena)] 12.5 mg PO BID #60 tab 06/29/19 Lisinopril [Zestril] 10 mg PO DAILY #30 tab 06/29/19 hydrALAZINE [Apresoline] 100 mg PO TID #90 tab 06/29/19 The following prescriptions were given: hydrALAZINE [Apresoline] 100 mg PO TID #90 tab Transmission Status: Pending to [facility] Carvedilol [Coreg (Beta Filomena)] 12.5 mg PO BID #60 tab Transmission Status: Pending to [facility] Lisinopril [Zestril] 10 mg PO DAILY #30 tab Transmission Status: Pending to [facility] Primary Care Physician: Prince Cummins DO [Primary Care Provider] - Within 2 Weeks Test Results: Test results from this visit will be discussed in further detail at your follow- up appointment, if applicable.
--- NOTE | 2019-06-29 13:10 | DS.PCM_ITS ---
Discharge Date and Diagnosis - Problem List Patient Problems: Active and Suspected Problems (Last Reviewed 06/04/19 @ 00:44 by Jacob Landeros MD) Acute on chronic anemia (Acute) Date of Admission: 06/25/19 Date of Discharge: 06/29/19 - Primary Discharge Diagnosis Active and Suspected Problems (Last Reviewed 06/04/19 @ 00:44 by Jacob Landeros MD) Acute on chronic anemia (Acute) - Secondary Discharge Diagnosis Chronic Problems (Last Reviewed 06/04/19 @ 00:44 by Jacob Landeros MD) Debility (Chronic) Acute CVA (cerebrovascular accident) (Chronic) Asthma exacerbation (Chronic) Elevated liver enzymes (Chronic) Diabetes (Chronic) Rheumatoid arthritis (Chronic) Hypertensive emergency (Chronic) Type II diabetes mellitus (Chronic) Hypertension (Chronic) Hospital Course and Treatment Terrell, cardiology Eran, general surgery. Operations: None Summary of Care Provided: The patient is a 63 year old F presents with hemoglobin of 6.8. Patient was transfused 3 units of packed red blood cells. Hemoglobin is currently 10.2. On the , patient underwent an EGD as well as colonoscopy which were normal. Anemia may be related with anemia of chronic disease given the patient's recent osteomyelitis, long-term antibiotics and recent DRESS syndrome. Patient will be discharged home. 1. acute blood loss anemia * 11.6 06/03, down to 7.6 on 06/26 * transfused 3 units of PRBCs, prior to my direct involvement * I will not transfuse any more blood until Hg at 7 or less * iron studies normal * B12 and folate have been normal * EGD and colonoscopy normal 2. chest pain * resolved * minimal elevation of troponins * cardiology following 3. recent DRESS syndrome * likely 2/2 vancomycin * resolved, now skin is sloughing off, particularly in the LE * add lotion/emollient to LE 4. HTN * had been accelerated * improved overall, but still elevated at time * continue carvedilol 12.5 BID and hydralazine 100 TID * add lisinopril 10/daily * Due to pain had been previously held given concern that her drug reaction may have been associated with that though seems more likely that it was related with vancomycin. Patient Problems: Active and Suspected Problems (Last Reviewed 06/04/19 @ 00:44 by Jacob Landeros MD) Acute on chronic anemia (Acute) - Physical Exam General: Alert, No apparent distress HEENT: Atraumatic, Normocephalic Psych/Mental Status: Normal Affect, Appropriate Vital Signs Temp Pulse Resp BP Pulse Ox 36.8 C 77 14 179/69 H 99 06/29/19 12:05 06/29/19 12:05 06/29/19 12:05 06/29/19 12:05 06/29/19 12:05 Oxygen Flow Rate (L/min) 2 Oxygen Delivery Method Room Air Weight: 85.5 kg Body Mass Index (BMI) 32.3 Finger Stick Blood Glucose 595 Intake and Output for Last 24 Hours 06/27/19 06/28/19 06/29/19 23:59 23:59 23:59 Intake Total 1200.75 / 1400.75 1860 / 3788 2037 Balance 1200.75 / 1400.75 1860 / 3788 2037 Microbiology Past 72 Hours 06/25/19 19:35 Enteric Bacteriology - Final Stool Laboratory Tests Past 24 Hrs 06/29/19 06/29/19 06:04 06:04 WBC 5.5 RBC 3.46 L Hgb 10.2 L Hct 31.5 L MCV 91.0 MCH 29.5 MCHC 32.4 RDW Std Deviation 47.4 H RDW Coeff of Dottie 14.6 Plt Count 132 L MPV 9.3 Immature Gran % (Auto) 2.400 H Neut % (Auto) 55.2 Lymph % (Auto) 30.3 [place] % (Auto) 7.6 Eos % (Auto) 4.0 Baso % (Auto) 0.5 Absolute Neuts (auto) 3.0 Absolute Lymphs (auto) 1.67 Nucleated RBC % 0 Sodium 140 Potassium 3.7 Chloride 108 H Carbon Dioxide 24.0 Anion Gap 8 BUN 14 Creatinine 1.19 H Estim Creat Clear Calc 42.87 Est GFR (MDRD) Af Amer 59 L Est GFR (MDRD) Non-Af 49 L BUN/Creatinine Ratio 11.8 Glucose 95 Calcium 8.2 L Iron 56 TIBC 294 Iron Saturation 19.0 Ferritin 793 H POC Glucose 06/29/19 06/29/19 06/28/19 12:09 08:50 21:30 POC Glucose 82 94 190 H 06/28/19 16:34 POC Glucose 214 H Discharge Diet: No Restrictions Discharge Activity: Return to Normal Activity Call your doctor if you observe: Fever of 101 or Higher, Chest pain Home Medications: Medications to take at Discharge Ipratropium/Albuterol Sulfate [Duoneb] 3 ml INHALATION Q6HWA.RT ampul.neb 04/27/19 Atorvastatin Calcium [Lipitor] 80 mg PO QHS 06/21/19 Aspirin [Aspirin, Baby] 81 mg PO DAILY@0800 tab.chew 06/23/19 Insulin Lispro [Humalog KwikPen] 12 unit SUBCUT BREAKFAST insuln.pen 06/23/19 Iron Polysaccharide Complex [Ferrex 150] 150 mg PO DAILYCM cap 06/23/19 Triamcinolone 0.5% Cream [Kenalog] 1 applic TOPICAL BID tube 06/23/19 Insulin Glargine,Hum.rec.anlog [Basaglar Kwikpen U-100] 20 unit SQ QHS 06/25/19 Insulin Lispro [Admelog Solostar] 16 unit SQ BID 06/25/19 Insulin Lispro [Humalog KwikPen] 16 unit SUBCUT BID 06/25/19 Mag Hydrox/Aluminum Hyd/Simeth [Antacid Suspension] 30 ml PO Q4H PRN PRN 06/25/19 Carvedilol [Coreg (Beta Filomena)] 12.5 mg PO BID #60 tab 06/29/19 Lisinopril [Zestril] 10 mg PO DAILY #30 tab 06/29/19 hydrALAZINE [Apresoline] 100 mg PO TID #90 tab 06/29/19 Following Prescrptions Were Given to Patient: hydrALAZINE [Apresoline] 100 mg PO TID #90 tab Transmission Status: Pending to [facility] Carvedilol [Coreg (Beta Filomena)] 12.5 mg PO BID #60 tab Transmission Status: Pending to [facility] Lisinopril [Zestril] 10 mg PO DAILY #30 tab Transmission Status: Pending to [facility] Primary Care Physician: Prince Cummins DO [Primary Care Provider] - Within 2 Weeks Minutes spent on discharge:: 32 Medical Necessity - Tobacco Use Smoking Status: Former smoker Meaningful Use Info Meaningful Use Diagnoses (Choose all that apply): None applicable Code Visit Inpatient E&M: 98881 Disch Hosp
--- NOTE | 2019-06-29 13:42 | CASEMGMT ---
LU called LU Solorzano with [facility]. LU left her a voice mail letting her know about patient and her situation as well as the [employer] referral. Bekah SAMAYOA MSW
[2019-06-29] MEDS: hydrALAZINE 50 MG Tablet 100 MG PO (13:49)
[2019-06-29] MEDS: Glucerna Shake 120 ML LIQUID PO (13:52)
--- NOTE | 2019-06-30 14:44 | CASEMGMT ---
NIKKI CM Discharge Follow-Up Phone Call. Lace: 13 Strata: 4 Discharge Date: 06/29/19 Adm Dx: Anemia, severe type Attempted discharge follow-up phone call. No answer. Phone rang multiple times and then got a busy signal. Confirmed that correct number was dialed. Attempted a 2nd time w/same result. Unable to leave a msg. Abel CARTERN RN CM
--- NOTE | 2019-07-01 09:06 | CCN.REFER ---
Multiple phone calls to patient to set up [facility] visits in which her phone states there are restrictions and my call cannot be completed. T/C to Katie whom is listed as person to notify. Left vm.
--- NOTE | 2019-07-12 09:18 | CCN.REFER ---
Patient's phone continues to say not in service. Mutliple messages left starting on 07/01 with person to notify (Anai Kuhn) w/ no returned calls.
== END 2019-06-29 17:33 | disposition home or self-care (01) | DRG 663 ==
LOC: ED 19:00 → MS3 22:25 → PCU 06-26 21:26 → MS3 06-28 10:15 → PCU 06-28 10:15
PROVIDERS: Student in an Organized Health Care Education/Training Program; Surgery; Admitting Provider Internal Medicine; Emergency Provider Emergency Medicine; Family Provider Family Medicine; PCP Family Medicine; Referring Provider Internal Medicine
PROC: 0DJD8ZZ Inspection of Lower Intestinal Tract, Via Natural or Artificial Opening Endoscopic (ICD-10-PCS; CPT 45378; principal; 2019-06-29 10:40)
DX: D64.9 Anemia, unspecified (principal); N18.3 Chronic kidney disease, stage 3 (moderate); E11.22 Type 2 diabetes mellitus with diabetic chronic kidney disease; I12.9 Hypertensive chronic kidney disease with stage 1 through stage 4 chronic kidney disease, or unspecified chronic kidney disease; K44.9 Diaphragmatic hernia without obstruction or gangrene; N17.9 Acute kidney failure, unspecified; R53.81 Other malaise; M06.9 Rheumatoid arthritis, unspecified; R74.8 Abnormal levels of other serum enzymes; Z87.891 Personal history of nicotine dependence; I16.0 Hypertensive urgency; Z79.4 Long term (current) use of insulin; E87.6 Hypokalemia; E83.42 Hypomagnesemia; Z86.19 Personal history of other infectious and parasitic diseases; Z79.899 Other long term (current) drug therapy; J45.909 Unspecified asthma, uncomplicated; M25.562 Pain in left knee; Z86.73 Personal history of transient ischemic attack (TIA), and cerebral infarction without residual deficits
CPT/HCPCS: 36415; 71045; 80048; 80053; 80076; 80307; 81001; 82274; 82607; 82652; 82728; 82746; 82962; 83540; 83550; 83630; 83735; 84100; 84439; 84443; 84481; 84484; 85014; 85018; 85025; 85610; 85730; 86850; 86900; 86901; 86920; 87177; 87209; 87506; 93005; 94640; 96361; 96372; 96374; 96375; 97116; 97162; 97164; 97166; 97530; 97802; 99218; 99285; J7030; J7040; J7050; J7120; P9016; A4216; G0378; J2405

== ENCOUNTER 2019-09-26 15:37 | Emergency (ER) | payer MEDICAID, SELFPAY ==
[2019-09-21 13:10] VITALS: BMI 32.3
[2019-09-26 15:40] VITALS: BP 145/94; PULSE 88; RESP 16; TEMP 36.6; O2SAT 99; BMI 27.6
--- NOTE | 2019-09-26 16:01 | RAD_ITS ---
STUDY: X-RAY - LEFT FOOT CLINICAL: Female, 64 years old. PAIN S/P DROPPING SKILLET ON FOOT TECHNIQUE: 3 view(s) of the foot. COMPARISON: None. FINDINGS: No acute fracture, dislocation or osseous destruction. No significant joint space narrowing. No significant productive changes. No significant soft tissue swelling. IMPRESSION: No acute fracture or dislocation. Electronically Signed: Talat Marmolejo, at 16:26 EST Tel , Service support , RAD/Foot min 3 Views
--- NOTE | 2019-09-26 16:35 | ED.DCSUM_ITS ---
- ER Visit Summary Date of Service: 09/26/19 Chief Complaint: [Injury to left foot] History of Present Illness: The patient is a 64 F [presents the emergency department with an injury to her left foot that occurred yesterday. Patient states that she accidentally dropped a skillet on top of her foot and she was barefoot. Patient in a hard time bearing weight secondary to pain. Patient has history of prior stroke, coronary artery disease, diabetes, hypertension, high cholesterol] Physical Examination: [HEENT-PERRLA, EOMI. Cranial nerves II through XII grossly intact. TMs clear. Mucous membranes moist. No adenopathy. Cardiovascular-regular rate and rhythm without murmur or ectopy Lungs-clear to auscultation, chest wall stable without crepitus or subcu emphysema Abdomen-normoactive bowel sounds, soft, nontender, no rebound or rigidity, no peritoneal signs. Extremities-intact ?4, normal range of motion, normal pulses. Left foot-patient has some soft tissue swelling noted over the mid dorsum of the left foot. There is some faint ecchymosis noted. She is neurovascular intact with normal station will cap refill. No pain about the ankle.] Test Results: [Rays of the left foot were negative for fracture or dislocation.] Emergency Department Course and Treatment: [Patient was given crutches and an Rufino wrap] Treatment Plan: [Advised use ice to the area and use ibuprofen or Tylenol for discomfort.] Disposition: [Discharged home in stable condition. Patient advised to follow-up with primary care physician in 5 to 7 days] Impression: [Contusion left foot] This note was generated with [employer] dictation software. It may contain incorrect words, spelling, and punctuation that were not noted in review of the chart prior to signing ED Disposition - Plan for ED Patient: Referrals: Prince Cummins, [Primary Care Provider] -
--- NOTE | 2019-09-26 16:36 | ED.DEP ---
ED Disposition - Plan for ED Patient: Instructions: CONTUSION, Foot Referrals: Prince Cummins DO [Primary Care Provider] - 5-7 Days
[2019-09-26 17:00] VITALS: BP 148/75; PULSE 71; RESP 14; RESP 15; O2SAT 100
== END 2019-09-26 17:02 | disposition home or self-care (01) ==
LOC: ED 16:04
PROVIDERS: Emergency Provider Emergency Medicine; Family Provider Family Medicine; PCP Family Medicine
DX: S90.32XA Contusion of left foot, initial encounter (principal); W22.8XXA Striking against or struck by other objects, initial encounter; Y93.9 Activity, unspecified; I25.10 Atherosclerotic heart disease of native coronary artery without angina pectoris; I10 Essential (primary) hypertension; E78.00 Pure hypercholesterolemia, unspecified; E11.9 Type 2 diabetes mellitus without complications; Z79.4 Long term (current) use of insulin; Z79.82 Long term (current) use of aspirin; Z86.73 Personal history of transient ischemic attack (TIA), and cerebral infarction without residual deficits
CPT/HCPCS: 73630; 99283

== ENCOUNTER 2019-10-05 22:32 | Emergency (ER) | payer MEDICAID, SELFPAY ==
[2019-10-05 22:32] VITALS: BP 184/101; PULSE 84; RESP 18; TEMP 36.1; O2SAT 97; BMI 29.2
--- NOTE | 2019-10-05 22:56 | ED.VISSUMM ---
- ER Visit Summary Date of Service: 10/05/19 Chief Complaint: [Pain in the left leg] History of Present Illness: The patient is a 64 F [presents the emergency department with pain in her left leg that started 3 days ago. Patient was seen in the emergency department by myself 3 days ago after she dropped a skillet negative cast iron onto her left foot. Patient had x-rays of that were negative for fracture. Patient states now the pain is radiating from her foot to her knee and all the way up to her left hip. She denies any new injuries. She denies recent travel or surgery. She denies any significant back pain or back injury. She denies any paresthesias or weakness the extremity. Patient states that she had a stroke about 6 months ago and had ultrasounds of the extremities and no blood clots were noted at that time.] Physical Examination: [HEENT-PERRLA, EOMI. Cranial nerves II through XII grossly intact. TMs clear. Mucous membranes moist. No adenopathy. Cardiovascular-regular rate and rhythm without murmur or ectopy Lungs-clear to auscultation, chest wall stable without crepitus or subcu emphysema Back exam-patient has no tenderness over the thoracic or lumbar spine. Negative straight leg raises. Deep tendon reflexes are plus 2 out of 4 bilaterally at the patella and Achilles. Patient has normal 5 extension. Abdomen-normoactive bowel sounds, soft, nontender, no rebound or rigidity, no peritoneal signs. Extremities-intact ?4, normal range of motion, normal pulses, atraumatic. Left leg-no evidence of soft tissue swelling noted. There is no ecchymosis or bruising. Patient has diffuse tenderness over the top of the left foot as well as the anterior left tibia that seems to reproduce her pain. She has no ropes or cords palpated. Negative Homans sign. Neurovascular intact. Patient has normal pulses in the left leg from the femoral to the popliteal to the dorsal pedal and posterior tibial.] Test Results: [None indicated] Emergency Department Course and Treatment: [Patient was given [place] for pain. Patient states that she has an appointment to see her primary care physician tomorrow but because of the patient not been able to sleep at night.] Treatment Plan: [Patient will be given a few [place] for pain] Disposition: [] Discharged home in stable condition Impression: [Left leg pain-etiology uncertain] This note was generated with [employer] dictation software. It may contain incorrect words, spelling, and punctuation that were not noted in review of the chart prior to signing ED Disposition - Plan for ED Patient: Referrals: Prince Cummins DO [Primary Care Provider] -
--- NOTE | 2019-10-05 22:59 | ED.DEP ---
ED Disposition - Plan for ED Patient: Instructions: CONTUSION, Lower Extremity Prescriptions: Hydrocodone Bitart/Apap 5-325 [[place] 5MG-325MG] 1 tab PO Q4H PRN PRN 2 Days #10 tab PRN Reason: Pain Prescription Printed Referrals: Prince Cummins DO [Primary Care Provider] - 1-2 Days if not improving
[2019-10-05] MEDS: HYDROcodone Bitartrate/Apap 5/325 Tablet PO (23:06)
== END 2019-10-05 23:22 | disposition home or self-care (01) ==
LOC: ED 23:20
PROVIDERS: Emergency Provider Emergency Medicine; PCP Family Medicine
DX: M79.605 Pain in left leg (principal); I10 Essential (primary) hypertension; E11.9 Type 2 diabetes mellitus without complications; Z79.4 Long term (current) use of insulin; Z79.82 Long term (current) use of aspirin; Z86.73 Personal history of transient ischemic attack (TIA), and cerebral infarction without residual deficits
CPT/HCPCS: 99283

== ENCOUNTER 2019-11-05 17:28 | Emergency (ER) | payer MEDICAID, SELFPAY ==
[2019-10-29 10:09] VITALS: BMI 29.2
[2019-11-05 17:29] VITALS: BP 212/99; PULSE 85; RESP 16; TEMP 36.4; O2SAT 100; BMI 31.4
--- NOTE | 2019-11-05 18:05 | CT_ITS ---
STUDY: CT BRAIN WITHOUT CONTRAST REASON FOR EXAM: Female, 64 years old. Headache hypertension weakness RADIATION DOSAGE (If Supplied By Facility): CTDIvol = ( 44.99 ) mGy, DLP = ( 812.98 ) mGycm TECHNIQUE: Transaxial CT imaging of the brain was performed without administration of intravenous contrast material. Individualized dose optimization techniques were used for this CT. COMPARISON: 26 April 2019 FINDINGS: There is a chronic appearing right parietal cortical and subcortical wedge-shaped infarct extending to the ventricular surface and a smaller right periventricular white matter moe radiata anterior segment infarct. These were not present in April of last year. There is no acute intracranial hemorrhage, extra-axial fluid collections, hydrocephalus or herniation. The skull is intact. CT/Brain/Head without Contrast IMPRESSION: 1. No acute findings. 2. Right parietal and moe radiata chronic infarcts, new since May 04, 2019. Electronically Signed: Kalpana Valle, at 18:36 EST Tel , Service support ,
--- NOTE | 2019-11-05 18:06 | RAD_ITS ---
STUDY: X-RAY CHEST REASON FOR EXAM: Female, 64 years old. weakness TECHNIQUE: Frontal view of the chest COMPARISON: 21 June 2019 FINDINGS: The lungs are clear and expanded. There is no demonstrated pleural abnormality. Normal size heart. Normal mediastinum and gaye. Normal visualized pulmonary arteries. Normal visualized aortic arch and descending thoracic aorta. Normal visualized thoracic spine. Normal visualized ribs, clavicles, and shoulders. There is no demonstrated abnormality of the visualized soft tissue structures of the upper abdomen. RAD/Chest 1 View (Portable) IMPRESSION: Normal x-ray examination of the chest. Electronically Signed: Kalpana Valle, at 19:17 EST Tel , Service support ,
--- NOTE | 2019-11-05 18:06 | EKG12_ITS ---
Test Reason : ALT LOC Blood Pressure : / mmHG Vent. Rate : 049 BPM Atrial Rate : 049 BPM P-R Int : 178 ms QRS Dur : 094 ms QT Int : 564 ms P-R-T Axes : -69 083 068 degrees QTc Int : 509 ms Ectopic Atrial Rhythm Septal infarct , age undetermined Abnormal ECG Confirmed by PADILLA CHENEY ([id number]), editor house organ DERICK ARNOLD ([id number]) on 11/10/2019 2:52:00 PM Referred By: WILFREDO NIELSEN Confirmed By:PADILLA CHENEY
[2019-11-05 18:18] LABS: Bacteria 0 SEEN /hpf (None Seen); Mucous, Urine 0 SEEN /hpf (<or=2+); Red Blood Cells-Urine 0 SEEN /hpf (0-5); Squamous Epithelial Cells - UA 0 SEEN /hpf (5-10)
[2019-11-05 18:19] LABS: Absolute Lymphocyte Count 2.58 X10^3/uL (0.83-4.51); Absolute Neutrophil Count 2.8 X10^3/uL (2.0-7.7); Basophil# 0.04 X10^3/uL; Basophil% 0.6 % (0-1); Eosinophil# 0.17 X10^3/uL; Eosinophils% 2.7 % (0-5); Hematocrit 31.8 % (37-47); Hemoglobin 10.2 g/dL (12.0-15.0); Lymphocyte # 2.58 X10^3/ul (4.0); Lymphocyte % 41.3 % (19-41); Mean Corp Hgb Conc 32.1 g/dL (32-36); Mean Corpuscular Hgb 28.8 pg (27.0-32.0); Mean Corpuscular Volume 89.8 fL (81-99); Mean Platelet Vol. 9.1 fl (6.2-12.0); Monocyte# 0.69 X10^3/uL; NRBC Flagged by Analyzer 0 % (0-5); Neutrophil # 2.75 X10^3/uL (2.7-7.7); Neutrophil % 44.1 % (47-70); Platelet Count 208 K/mm3 (150-450); RBC Distribution Width CV 13.7 % (11.6-14.6); RBC Distribution Width SD 45.1 fl (35.1-43.9); Red Blood Count 3.54 M/mm3 (4.2-5.4); White Blood Count 6.3 K/mm3 (4.4-11.0)
[2019-11-05 18:22] LABS: Color, Urine Yellow (Yellow); Glucose, Dipstick Normal (Normal); Ketone-Dipstick Negative (Negative); Leukocyte Esterase-Dipstick Negative /ul (Negative); Nitrite-Dipstick Negative (Negative); Occult Blood-Urine Negative /ul (Negative); Protein-Dipstick 100 mg/dl (Negative); Urine Bilirubin Dipstick Negative (Negative); Urine Clarity Clear (Clear); Urine Urobilinogen Normal (Normal)
[2019-11-05] MEDS: Acetaminophen 500 MG Tablet 1000 MG PO (18:33)
[2019-11-05] MEDS: 0.9% Normal Saline 1,000 ML 150 ML IV (18:33)
[2019-11-05 18:34] LABS: ALB/GLOB Ratio 0.6 RATIO (0.9-2.4); AST(SGOT) 78 U/L (15-37); Alanine Aminotransfer ALT/SGPT 88 U/L (13-56); Albumin, Serum 2.9 g/dL (3.2-5.0); Alkaline Phosphatase 90 U/L (45-117); Anion Gap 5 (5-15); BUN 24 mg/dL (7-18); BUN/Creat Ratio 16.6 RATIO (10-20); Calcium,Total 9.1 mg/dL (8.5-10.1); Chloride 110 mmol/L (98-107); Creatinine, Serum 1.45 mg/dL (0.55-1.02); EST Glomerular Filtration Rate 39 mL/min (>60); Est Glom Filt Rate - Afr Amer 47 mL/min (>60); Estimated Creatinine Clearance 34.74 ml/min; Globulin 5.1 g/dL (2.2-4.2); Glucose 53 mg/dL (74-106); Potassium 3.4 mmol/L (3.5-5.1); Sodium Level 141 mmol/L (136-145)
[2019-11-05 18:44] LABS: White Blood Cells 0-5 SEEN /hpf (0-5)
--- NOTE | 2019-11-05 19:25 | ED.DCSUM_ITS ---
- ER Visit Summary Date of Service: 11/05/19 Chief Complaint: Weakness History of Present Illness: The patient is a [address] Prince Cummins. She reports that she has weakness that began earlier today while she was walking to the store. She states that this is generalized. She reports that she has a headache that is 10 out of 10 in severity that began just prior to arrival. On review of systems patient planes of chills. She reports that earlier today she had numbness to her left hand that lasted 5 to 10 minutes. She is not having any numbness now. She is right-hand dominant. She does not know if her small finger was spared during this episode. Patient denies any other numbness. No change in her vision. No slurred speech. No aphasia. She denies any chest pain, cough, shortness of breath. No abdominal pain, nausea, vomiting, diarrhea. No dysuria, frequency, rash, or other complaints. Physical Examination: Vitals: Stable. Afebrile. General: Well-nourished and well-developed. Head: Normocephalic atraumatic. Neck: Supple, no lymphadenopathy. No JVD. Nontender. Cardiovascular: Regular rate and rhythm. No murmurs. Respiratory: No respiratory distress. Clear to auscultation bilaterally. Abdominal: Soft, nontender, nondistended, normal bowel sounds. No guarding, rebound, or peritoneal signs. Back: Nontender. Extremities: Nontender, no edema. Skin: Normal color, no rash. Neurologic: Alert and oriented ?3. Cranial nerves II through XII are intact. Normal strength and sensation. NIH scale is 0. Psych: Normal affect. Test Results: EKG shows an ectopic atrial rhythm with inverted P waves inferiorly. At the rate is 70. I suspect this is actually lead placement. The change in the P axis is the only change since June last year. Troponin is negative. UA is normal. LFTs show an ALT of 88 AST is 78, albumin of 2.9, globulin 5.1. Chem-7 shows potassium 3.4, chloride 110, glucose of 53, BUN of 24, creatinine 1.45. CBC shows an H&H 10.2 and 31.8, segmented feels 44, lymphocytes 41, monocytes of 11. Clinical Impression(s) from Imaging Studies Brain CT 11/05/19 18:05 IMPRESSION: 1. No acute findings. 2. Right parietal and moe radiata chronic infarcts, new since May 04, 2019. Electronically Signed: Kalpana Valle, at 18:36 EST Tel , Service support , Chest X-Ray 11/05/19 18:06 IMPRESSION: Normal x-ray examination of the chest. Electronically Signed: Kalpana Valle, at 19:17 EST Tel , Service support , Emergency Department Course and Treatment: Patient was given a dose of Tylenol. She ate while here. She is resting comfortably and feels improved. I did discuss with her the findings on the CT of the brain. I suspect this is actually the stroke that she had in April that was seen on the MRI. The MRI at that time showed that she had a high-grade stenosis of her right internal carotid artery. She never followed up with Les Mayer for this. Clinically her symptoms do not seem to be a stroke today. Treatment Plan: I discussed with the patient possibility of being admitted to the hospital for MRI of her brain tomorrow to see if there is any new component to the strokes. She does not want to stay. I feel that is a reasonable decision. However, I did discuss with her that if she does not get her internal carotid artery taken care of it is only a matter of time until she has a stroke. She does understand this. She is instructed to follow-up with Dr. Les Mayer soon as possible. Follow-up with her primary care physician in 1 to 2 days for another exam. Return to the emergency department for any worsening symptoms. Disposition: To home in improved and stable condition. Impression: 1. Weakness, generalized. 2. Right internal carotid artery high-grade stenosis. This note was generated with [employer] software. It may contain incorrect words, spelling, and punctuation that were not noted in review of the chart prior to signing ED Disposition - Plan for ED Patient: Disposition: Home or Assisted Living Instructions: Carotid Artery Problems: Blockage, WEAKNESS, Unk Cause Referrals: Prince Cummins, DO [Primary Care Provider] - As soon as possible Les Mayer MD [STAFF PHYSICIAN] - As soon as possible
[2019-11-05 19:38] VITALS: BP 130/59; PULSE 66; RESP 18; O2SAT 100
== END 2019-11-05 19:40 | disposition home or self-care (01) ==
LOC: ED 18:00
PROVIDERS: Emergency Provider Emergency Medicine; PCP Family Medicine
DX: R53.1 Weakness (principal); I65.21 Occlusion and stenosis of right carotid artery; I10 Essential (primary) hypertension; E11.9 Type 2 diabetes mellitus without complications; Z79.4 Long term (current) use of insulin; Z79.82 Long term (current) use of aspirin; Z86.73 Personal history of transient ischemic attack (TIA), and cerebral infarction without residual deficits; Z87.891 Personal history of nicotine dependence
CPT/HCPCS: 70450; 71045; 80053; 81001; 84484; 85025; 93005; 99285; J7030; A4216

== ENCOUNTER 2019-11-07 18:44 | Inpatient (IN) | payer MEDICAID, SELFPAY ==
[2019-11-07] VITALS (9 sets, daily range): BP systolic 111–224; BP diastolic 58–80; PULSE 51–73; RESP 12–20; TEMP 30.9–37.2; O2SAT 97–100; BMI 31.1; BMI 30.1
--- NOTE | 2019-11-07 18:57 | ED.RN ---
CALLED FOR EKG PER RN REQUEST, PULLED OLD EKGS FOR
--- NOTE | 2019-11-07 19:14 | CT_ITS ---
STUDY: CT BRAIN WITHOUT CONTRAST REASON FOR EXAM: Female, 64 years old patient with altered level of consciousness. RADIATION DOSAGE (If Supplied By Facility): CTDIvol = ( 44.99 ) mGy, DLP = ( 745.49 ) mGycm TECHNIQUE: Transaxial CT imaging of the brain was performed without administration of intravenous contrast material. Multiplanar reformations are submitted for interpretation. Individualized dose optimization techniques were used for this CT. COMPARISON: CT of the head dated November 05, 2019. FINDINGS: Normal soft tissue structures. Normal calvarium. There is mild cerebral atrophy with widening of the extra-axial spaces and ventricular dilatation. There are areas of decreased attenuation within the white matter tracts of the supratentorial brain, consistent with microvascular disease changes. There is encephalomalacia within the right parietal lobe and right frontal lobe consistent with old infarcts. Normal basal ganglia and thalami. Normal brainstem. There is mild cerebellar atrophy. There is no intracranial hemorrhage. There is moderate atherosclerotic calcification of the intracranial arteries. Normal visualized paranasal sinuses. CT/Brain/Head without Contrast IMPRESSION: 1. Chronic involutional changes of the brain. 2. No CT evidence of acute intracranial hemorrhage. Electronically Signed: Aylin Welsh MD at 21:02 EST , Service support ,
--- NOTE | 2019-11-07 19:14 | RAD_ITS ---
STUDY: X-RAY CHEST REASON FOR EXAM: Female, 64 years old patient with altered level of consciousness, weakness, and shortness of breath. TECHNIQUE: Single AP portable view of the chest. COMPARISON: Chest radiograph dated November 05, 2019. FINDINGS: Cardiac monitoring leads are present. The lungs are hyperexpanded. There is mild perihilar interstitial thickening. There is no demonstrated pleural abnormality. There is borderline cardiomegaly. Normal mediastinum and gaye. There is prominence of the pulmonary hilar arteries with peripheral pulmonary vascular congestion. There is atherosclerotic calcification of the aortic arch with tortuosity. There is demineralization of the osseous structures. Normal visualized ribs, clavicles, and shoulders. There is no demonstrated abnormality of the visualized soft tissue structures of the upper abdomen. RAD/Chest 1 View (Portable) IMPRESSION: Cardiomegaly without obvious acute cardiopulmonary disease. Electronically Signed: Aylin Welsh MD at 20:22 EST , Service support ,
--- NOTE | 2019-11-07 19:14 | EKG12_ITS ---
Test Reason : DYSRHYTHMIA Blood Pressure : / mmHG Vent. Rate : 070 BPM Atrial Rate : 070 BPM P-R Int : 154 ms QRS Dur : 084 ms QT Int : 432 ms P-R-T Axes : -69 069 -50 degrees QTc Int : 466 ms Unusual P axis, possible ectopic atrial rhythm Septal infarct , age undetermined Abnormal ECG Confirmed by SRIKANTH PIZARRO, RENE ([id number]), film editor ADRIÁN BURRIS ([id number]) on 11/08/2019 2:07:46 PM Referred By: ROBIN Confirmed By:JHONY DUKE MD
[2019-11-07 19:16] LABS: Bedside Glucose 64 mg/dL (70-110)
--- NOTE | 2019-11-07 19:16 | ED.DCSUM_ITS ---
History of Present Illness Chief Complaint: Alt LOC Informant: Patient, Family, Friend Onset: Today Narrative: Patient presents via family with altered level of consciousness. Family states that she was okay earlier today. She laid down to take a nap a couple hours ago and they have not really been able to get her alert much since that time. Granddaughter states that patient has been sweating a lot today. At the time of my evaluation patient is lying in bed with her eyes closed. She will respond to sternal rub and will open her eyes. She is able to tell me her name. She denies having any pain currently. She denies a headache. When asked if she has any numbness or tingling she states just in her hands. She has this chronically with her diabetes and she admits this is unchanged. She states she just feels very tired. Patient does reportedly have a stroke history. Granddaughter states her only lasting deficit was some slight speech difficulty but she is easy to understand when conversing. - Past Medical History (1) Diabetes Status: Chronic (2) Hypertension Status: Chronic (3) Rheumatoid arthritis Status: Chronic (4) Type II diabetes mellitus Status: Chronic (5) DRESS syndrome Status: Resolved (6) Stroke Status: Inactive Past Medical History - Allergies and Home Meds Allergies/Adverse Reactions: Allergies ceftriaxone Allergy (Severe, Verified 11/07/19 18:45) Rash vancomycin Allergy (Severe, Verified 11/07/19 18:45) Rash Penicillins Allergy (Verified 11/07/19 18:45) Swelling oxycodone HCl [From Percocet] Adverse Reaction (Verified 11/07/19 18:45) Itching Primary Care Physician: Prince Cummins DO [Primary Care Provider] - Prior records reviewed: Yes Surgical History: - Lives: With Family Smoking Status: Current every day smoker - Family History Maternal Family History: Family History (Last Reviewed 10/29/19 @ 10:[address] Joao Sheldon MD) Mother Hypertension Emphysema/COPD Sister Hypertension Family History: Reports: No pertinent history Paternal Family History: Family History (Last Reviewed 10/29/19 @ 10:[address] Joao Sheldon MD) Mother Hypertension Emphysema/COPD Sister Hypertension Family History: Reports: No pertinent history Review of Systems ROS: Unable to Obtain - Patient does tell me that she has no pain. She does admit to some tingling in her fingers. Physical Exam Vital Signs/Narrative: Vital Signs Temp Pulse Resp BP Pulse Ox 11/07/19 19:02 87.6 F L 51 L 20 H 97 11/07/19 18:45 98.9 F 53 L 18 132/68 H 100 Inital Vital Signs reviewed: Yes General: Well nourished, Well developed Head: Normocephalic ENT: Moist mucous membranes Neck: Supple Cardiovascular: Bradycardia Respiratory: No distress, CTA bilaterally Abdomen: Soft, Nontender, Normal bowel sounds Extremities: Nontender Skin: Normal color Neurological: - - Rest with eyes closed. Will respond to sternal rub and open her eyes. She will answer some questions. Diagnostic/Tx/Re-eval Impressions Brain CT 11/07/19 19:14 IMPRESSION: 1. Chronic involutional changes of the brain. 2. No CT evidence of acute intracranial hemorrhage. Electronically Signed: Aylin Welsh MD at 21:02 EST , Service support , Chest X-Ray 11/07/19 19:14 IMPRESSION: Cardiomegaly without obvious acute cardiopulmonary disease. Electronically Signed: Aylin Welsh MD at 20:22 EST , Service support , 11/07/19 19:14 Brain/Head without Contrast [CT] Stat Chest 1 View (Portable) [RAD] Stat 11/07/19 19:37 Mucosa - Nasopharyngeal Influenza Types A,B Direct FA ([facility]) - Final Laboratory Results 11/07/19 11/07/19 11/07/19 18:49 19:15 19:15 WBC 5.7 RBC 3.59 L Hgb 10.3 L Hct 32.5 L MCV 90.5 MCH 28.7 MCHC 31.7 L RDW Std Deviation 45.3 H RDW Coeff of Dottie 13.8 Plt Count 210 MPV 9.3 Immature Gran % (Auto) 0.400 Neut % (Auto) 42.1 L Lymph % (Auto) 45.2 H Bradley % (Auto) 9.5 Eos % (Auto) 1.9 Baso % (Auto) 0.9 Absolute Neuts (auto) 2.4 Absolute Lymphs (auto) 2.58 Nucleated RBC % 0 Sodium 139 Potassium 3.8 Chloride 107 Carbon Dioxide 27.0 Anion Gap 5 BUN 25 H Creatinine 1.63 H Estim Creat Clear Calc 28.30 Est GFR (MDRD) Af Amer 41 L Est GFR (MDRD) Non-Af 34 L BUN/Creatinine Ratio 15.3 Glucose 73 L Lactic Acid Calcium 9.2 Total Bilirubin 0.40 Direct Bilirubin 0.21 AST 87 H ALT 93 H Alkaline Phosphatase 88 Troponin I 0.058 H Total Protein 7.9 Albumin 3.0 L Globulin 4.9 H TSH Urine Color Urine Clarity Urine pH Ur Specific [place] Urine Protein Urine Glucose (UA) Urine Ketones Urine Occult Blood Urine Nitrite Urine Bilirubin Urine Urobilinogen Ur Leukocyte Esterase Urine RBC Urine WBC Ur Squamous Epith Cells Urine Bacteria Urine Mucus Urine Opiates Screen Urine Methadone Screen Ur Barbiturates Screen Ur Phencyclidine Scrn Ur Amphetamines Screen U Methamphetamin-MDMA U Benzodiazepines Scrn Urine Cocaine Screen U Cannabinoids Screen Ur Drug Screen Comment Ethyl Alcohol POC Glucose 64 L 11/07/19 11/07/19 11/07/19 19:15 19:15 19:25 WBC RBC Hgb Hct MCV MCH MCHC RDW Std Deviation RDW Coeff of Dottie Plt Count MPV Immature Gran % (Auto) Neut % (Auto) Lymph % (Auto) Bradley % (Auto) Eos % (Auto) Baso % (Auto) Absolute Neuts (auto) Absolute Lymphs (auto) Nucleated RBC % Sodium Potassium Chloride Carbon Dioxide Anion Gap BUN Creatinine Estim Creat Clear Calc Est GFR (MDRD) Af Amer Est GFR (MDRD) Non-Af BUN/Creatinine Ratio Glucose Lactic Acid 1.0 Calcium Total Bilirubin Direct Bilirubin AST ALT Alkaline Phosphatase Troponin I Total Protein Albumin Globulin TSH 1.25 Urine Color Urine Clarity Urine pH Ur Specific [place] Urine Protein Urine Glucose (UA) Urine Ketones Urine Occult Blood Urine Nitrite Urine Bilirubin Urine Urobilinogen Ur Leukocyte Esterase Urine RBC Urine WBC Ur Squamous Epith Cells Urine Bacteria Urine Mucus Urine Opiates Screen Urine Methadone Screen Ur Barbiturates Screen Ur Phencyclidine Scrn Ur Amphetamines Screen U Methamphetamin-MDMA U Benzodiazepines Scrn Urine Cocaine Screen U Cannabinoids Screen Ur Drug Screen Comment Ethyl Alcohol < 3.0 POC Glucose 11/07/19 11/07/19 20:20 20:20 WBC RBC Hgb Hct MCV MCH MCHC RDW Std Deviation RDW Coeff of Dottie Plt Count MPV Immature Gran % (Auto) Neut % (Auto) Lymph % (Auto) Bradley % (Auto) Eos % (Auto) Baso % (Auto) Absolute Neuts (auto) Absolute Lymphs (auto) Nucleated RBC % Sodium Potassium Chloride Carbon Dioxide Anion Gap BUN Creatinine Estim Creat Clear Calc Est GFR (MDRD) Af Amer Est GFR (MDRD) Non-Af BUN/Creatinine Ratio Glucose Lactic Acid Calcium Total Bilirubin Direct Bilirubin AST ALT Alkaline Phosphatase Troponin I Total Protein Albumin Globulin TSH Urine Color Yellow Urine Clarity Clear Urine pH 6.0 Ur Specific [place] 1.010 Urine Protein 100 H Urine Glucose (UA) Normal Urine Ketones Negative Urine Occult Blood Negative Urine Nitrite Negative Urine Bilirubin Negative Urine Urobilinogen Normal Ur Leukocyte Esterase Negative Urine RBC 0 SEEN Urine WBC 0-5 SEEN Ur Squamous Epith Cells 0-5 SEEN Urine Bacteria RARE Urine Mucus 0 SEEN Urine Opiates Screen NEGATIVE Urine Methadone Screen NEGATIVE Ur Barbiturates Screen NEGATIVE Ur Phencyclidine Scrn NEGATIVE Ur Amphetamines Screen NEGATIVE U Methamphetamin-MDMA NEGATIVE U Benzodiazepines Scrn NEGATIVE Urine Cocaine Screen NEGATIVE U Cannabinoids Screen NEGATIVE Ur Drug Screen Comment Ethyl Alcohol POC Glucose - EKG Initial EKG Interpretation: Sinus Bradycardia - Sinus bradycardia. T wave flattening noted. - Medical Decision Making On initial examination with sternal rub patient would open her eyes and would answer questions. Patient was found to be hypothermic. She currently has a temperature [place] and is on a Prashant hugger for rewarming. Patient's heart rate has improved into the 60s. Patient is becoming more alert and answering questions appropriately. Blood work and imaging studies at this time are grossly unremarkable. Patient will be admitted for further treatment and evaluation. ED Disposition - Plan for ED Patient: Disposition: Acute Care Hospital [facility] Diagnosis: Hypothermia Referrals: Prince Cummins DO [Primary Care Provider] -
[2019-11-07 19:27] LABS: Absolute Lymphocyte Count 2.58 X10^3/uL (0.83-4.51); Absolute Neutrophil Count 2.4 X10^3/uL (2.0-7.7); Basophil# 0.05 X10^3/uL; Basophil% 0.9 % (0-1); Eosinophil# 0.11 X10^3/uL; Eosinophils% 1.9 % (0-5); Hematocrit 32.5 % (37-47); Hemoglobin 10.3 g/dL (12.0-15.0); Lymphocyte # 2.58 X10^3/ul (4.0); Lymphocyte % 45.2 % (19-41); Mean Corp Hgb Conc 31.7 g/dL (32-36); Mean Corpuscular Hgb 28.7 pg (27.0-32.0); Mean Corpuscular Volume 90.5 fL (81-99); Mean Platelet Vol. 9.3 fl (6.2-12.0); Monocyte# 0.54 X10^3/uL; Monocyte% 9.5 % (0-10); NRBC Flagged by Analyzer 0 % (0-5); Neutrophil # 2.41 X10^3/uL (2.7-7.7); Neutrophil % 42.1 % (47-70); Platelet Count 210 K/mm3 (150-450); RBC Distribution Width CV 13.8 % (11.6-14.6); RBC Distribution Width SD 45.3 fl (35.1-43.9); Red Blood Count 3.59 M/mm3 (4.2-5.4); White Blood Count 5.7 K/mm3 (4.4-11.0)
[2019-11-07] MEDS: DEXTROSE IV (19:30)
[2019-11-07] MEDS: NACL IV (19:30)
[2019-11-07] MEDS: 0.9% Normal Saline 1,000 ML 150 ML IV (19:31)
[2019-11-07 19:42] LABS: AST(SGOT) 87 U/L (15-37); Alanine Aminotransfer ALT/SGPT 93 U/L (13-56); Alkaline Phosphatase 88 U/L (45-117); Anion Gap 5 (5-15); BUN 25 mg/dL (7-18); BUN/Creat Ratio 15.3 RATIO (10-20); Bilirubin, Direct 0.21 mg/dL (0.00-0.30); Calcium,Total 9.2 mg/dL (8.5-10.1); Chloride 107 mmol/L (98-107); Creatinine, Serum 1.63 mg/dL (0.55-1.02); EST Glomerular Filtration Rate 34 mL/min (>60); Est Glom Filt Rate - Afr Amer 41 mL/min (>60); Globulin 4.9 g/dL (2.2-4.2); Glucose 73 mg/dL (74-106); Potassium 3.8 mmol/L (3.5-5.1); Protein, Total 7.9 g/dL (6.4-8.2); Sodium Level 139 mmol/L (136-145)
[2019-11-07 20:15] LABS: Alcohol, Blood (Medical)-Serum < 3.0 mg/dL
[2019-11-07 20:27] LABS: Mucous, Urine 0 SEEN /hpf (<or=2+); Red Blood Cells-Urine 0 SEEN /hpf (0-5)
[2019-11-07 20:29] LABS: Glucose, Dipstick Normal (Normal); Ketone-Dipstick Negative (Negative); Leukocyte Esterase-Dipstick Negative /ul (Negative); Nitrite-Dipstick Negative (Negative); Occult Blood-Urine Negative /ul (Negative); Protein-Dipstick 100 mg/dl (Negative); Urine Bilirubin Dipstick Negative (Negative); Urine Urobilinogen Normal (Normal)
[2019-11-07 20:31] LABS: Color, Urine Yellow (Yellow); Urine Clarity Clear (Clear)
[2019-11-07 20:42] LABS: Bacteria RARE /hpf (None Seen); Squamous Epithelial Cells - UA 0-5 SEEN /hpf (5-10); White Blood Cells 0-5 SEEN /hpf (0-5)
[2019-11-07 20:48] LABS: Amphetamine Urine VISTA NEGATIVE (<1000 ng/mL); Barbiturate Urine VISTA NEGATIVE (< 200 ng/mL); Benzodiazepine Urine VISTA NEGATIVE (< 200 ng/mL); Cocaine Urine VISTA NEGATIVE (< 300 ng/mL); Ecstacy Urine VISTA NEGATIVE (< 500 ng/mL); Methadone Urine VISTA NEGATIVE (< 300 ng/mL); PCP Urine VISTA NEGATIVE (< 25 ng/mL); THC Urine VISTA NEGATIVE (< 50 ng/mL); Vista UDS pH Range 6
[2019-11-07 20:50] LABS: Thyroid Stim Hormone (TSH) 1.25 uIU/mL (0.358-3.74)
--- NOTE | 2019-11-07 21:45 | PCM.HP.STD ---
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 Patient was lethargic; sleeping more than usual and had decreased response. Emergent department doctor reported that when patient came to emergency department she required sternal rub but later on was more conversant. At the ED the patient was found to be hypothermic with a temperature Gudino catheter. She was also bradycardic with heart rate in the 40s. Her blood glucose was low at 64. Past Medical History Past Medical History (Chronic Problems): Chronic Problems (Last Reviewed 11/08/19 @ 00:[address] Jacob Landeros MD) Debility (Chronic) Asthma exacerbation (Chronic) Elevated liver enzymes (Chronic) Diabetes (Chronic) Rheumatoid arthritis (Chronic) Type II diabetes mellitus (Chronic) Hypertension (Chronic) Medical History: Medical History (Last Reviewed 11/08/19 @ 01:[address] Jacob Landeros MD) Diabetes (Chronic) E11.9 Rheumatoid arthritis (Chronic) M06.9 Asthma J45.909 Chest pain R07.9 SOB (shortness of breath) R06.02 Stroke I63.9 Hypertension I10 Allergies ceftriaxone Allergy (Severe, Verified 11/07/19 18:45) Rash vancomycin Allergy (Severe, Verified 11/07/19 18:45) Rash Penicillins Allergy (Verified 11/07/19 18:45) Swelling oxycodone HCl [From Percocet] Adverse Reaction (Verified 11/07/19 18:45) Itching Home Medications: Ambulatory Orders Medication Instructions Recorded Ipratropium/Albuterol Sulfate 3 ml INHALATION Q6HWA.RT ampul.neb 04/27/19 [Duoneb] Insulin Lispro [Admelog Solostar] 16 unit SQ BID 06/25/19 Insulin Lispro [Humalog KwikPen] 16 unit SUBCUT BID 06/25/19 Mag Hydrox/Aluminum Hyd/Simeth 30 ml PO Q4H PRN PRN 06/25/19 [Antacid Suspension] atorvastatin 80 mg tablet 80 mg PO QHS #90 tab 09/21/19 carvedilol 12.5 mg tablet 12.5 mg PO BID #180 tab 09/21/19 fluconazole 150 mg tablet 150 mg PO Q3D 0 Days #2 tab 09/21/19 insulin glargine 100 unit/mL (3 20 unit SC QHS #15 ml 09/21/19 mL) subcutaneous pen lanolin-mineral oil 1 applic TOPICAL DAILY PRN #500 ml 09/21/19 lisinopril 10 mg tablet 10 mg PO DAILY #90 tab 09/21/19 polysaccharide iron complex 150 mg 150 mg PO DAILYCM #90 cap 09/21/19 iron capsule triamcinolone acetonide 0.5 % 1 applic TOPICAL BID #2 tube 09/21/19 topical cream blood sugar diagnostic See Rx Instructions .ROUTE 09/23/19 .MEDSUPPLY #100 ea blood-glucose meter See Rx Instructions .ROUTE 09/24/19 .MEDSUPPLY #1 ea blood sugar diagnostic See Rx Instructions .ROUTE 09/28/19 .MEDSUPPLY #100 ea blood-glucose meter See Rx Instructions .ROUTE 09/28/19 .MEDSUPPLY #1 ea pen needle, diabetic 29 gauge x See Rx Instructions .ROUTE 10/22/19 1/2 .MEDSUPPLY #100 ea lancets 30 gauge See Rx Instructions .ROUTE 10/29/19 .MEDSUPPLY #100 ea aspirin 81 mg chewable tablet 81 mg PO DAILY@0800 #90 tab 11/02/19 hydralazine 50 mg tablet 100 mg PO TID #90 tab 11/02/19 hydroxyzine HCl 10 mg tablet 10 mg PO TID PRN #30 tab 11/02/19 lancets See Rx Instructions .ROUTE 11/02/19 .MEDSUPPLY #200 ea Acetaminophen [Acetaminophen Extra 500 mg PO PRN PRN 11/08/19 Strength] Ertugliflozin Pidolate [Steglatro] 15 mg PO DAILY 11/08/19 Insulin Lispro [Insulin Lispro 12 unit SUBCUT BREAKFAST 11/08/19 Kwikpen U-100] Surgical History: Surgical History (Last Reviewed 11/08/19 @ 01:[address] 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 Jacob Landeros MD) Mother Hypertension Emphysema/COPD Sister Hypertension History Items: No pertinent history Paternal Family History: Family History (Last Reviewed 11/08/19 @ 01:[address] Jacob Landeros MD) Mother Hypertension Emphysema/COPD Sister Hypertension History Items: No pertinent history Review of Systems Constitutional: Denies: Chills, Fever, Weight Change HEENT: Denies: Head Aches, Sinus Congestion, Sinus Drainage Cardiovascular: Denies: Chest Pain, Palpitations Respiratory: Denies: Cough, Shortness of breath at rest, Sputum production Gastrointestinal: Denies: Abdominal Pain, Nausea, Vomiting Genitourinary: Denies: Dysuria Musculoskeletal: Denies: Joint Pain, Joint Tenderness Skin: Denies: Rash, Wounds Neurological: Reports: Numbness - Fingers of right hand; chronic, Tingling - Fingers of right hand; chronic. Denies: Focal weakness Psychiatric: Denies: Anxiety, Depression, Homicidal Ideations, Suicidal Ideations Hematologic/ Lymphatic: Denies: Easy Bruising, Easy Bleeding VTE Information - Inpt Only VTE Present on Admission: No VTE Mechan Device Prophylaxis: None VTE Pharm Prophylaxis ordered?: Yes Patient Problems: Active and Suspected Problems (Last Reviewed 11/08/19 @ 00:[address] aJcob Landeros MD) Hypothermia (Acute) Acute encephalopathy (Acute) Bradycardia (Acute) - Physical Exam Vitals/I&O's: Vital Signs Temp Pulse Resp BP Pulse Ox 90.1 F L 58 L 15 111/58 L 97 11/07/19 21:00 11/07/19 21:00 11/07/19 21:00 11/07/19 21:00 11/07/19 21:00 Oxygen Delivery Method Room Air Weight: 77.111 kg Body Mass Index (BMI) 31.1 Finger Stick Blood Glucose 595 Intake and Output for Last 24 Hours 11/05/19 11/06/19 11/07/19 23:59 23:59 23:59 Intake Total 250 / 250 Balance 250 / 250 General: Oriented x3, Cooperative, Lethargic HEENT: Atraumatic, PERRLA, EOMI, Normocephalic Neck: Supple, Trachea Midline Lungs: No rales, Wheezes - Mild Cardiovascular: Regular rate, Normal S1, Normal S2, No murmurs Abdomen: Bowel Sounds Present, Soft, Non Tender Extremities: No edema, Capillary Refill Less than 3 Seconds Skin: No rashes, No breakdown Musculoskeletal: No Tenderness to Palpation of Joints or Extremities Neurological: Cranial nerves II-XII grossly intact Psych/Mental Status: Normal Affect, Appropriate Microbiology Past 72 Hours 11/07/19 19:37 Mucosa - Nasopharyngeal Influenza Types A,B Direct FA (SIMONE) - Final Laboratory Results 11/07/19 18:49: POC Glucose 64 L 11/07/19 19:15: WBC 5.7, RBC 3.59 L, Hgb 10.3 L, Hct 32.5 L, MCV 90.5, MCH 28.7, MCHC 31.7 L, RDW Std Deviation 45.3 H, RDW Coeff of Dottie 13.8, Plt Count 210, MPV 9.3, Immature Gran % (Auto) 0.400, Neut % (Auto) 42.1 L, Lymph % (Auto) 45.2 H, [place] % (Auto) 9.5, Eos % (Auto) 1.9, Baso % (Auto) 0.9, Absolute Neuts (auto) 2.4, Absolute Lymphs (auto) 2.58, Nucleated RBC % 0 11/07/19 19:15: Sodium 139, Potassium 3.8, Chloride 107, Carbon Dioxide 27.0, Anion Gap 5, BUN 25 H, Creatinine 1.63 H, Estim Creat Clear Calc 28.30, Est GFR (MDRD) Af Amer 41 L, Est GFR (MDRD) Non-Af 34 L, BUN/Creatinine Ratio 15.3, Glucose 73 L, Calcium 9.2, Total Bilirubin 0.40, Direct Bilirubin 0.21, AST 87 H, ALT 93 H, Alkaline Phosphatase 88, Troponin I 0.058 H, Total Protein 7.9, Albumin 3.0 L, Globulin 4.9 H 11/07/19 19:15: Lactic Acid 1.0 11/07/19 19:15: TSH 1.25 11/07/19 19:25: Ethyl Alcohol < 3.0 11/07/19 20:20: Urine Opiates Screen NEGATIVE, Urine Methadone Screen NEGATIVE, Ur Barbiturates Screen NEGATIVE, Ur Phencyclidine Scrn NEGATIVE, Ur Amphetamines Screen NEGATIVE, U Methamphetamin-MDMA NEGATIVE, U Benzodiazepines Scrn NEGATIVE, Urine Cocaine Screen NEGATIVE, U Cannabinoids Screen NEGATIVE, Ur Drug Screen Comment 11/07/19 20:20: Urine Color Yellow, Urine Clarity Clear, Urine pH 6.0, Ur Specific Mcintosh 1.010, Urine Protein 100 H, Urine Glucose (UA) Normal, Urine Ketones Negative, Urine Occult Blood Negative, Urine Nitrite Negative, Urine Bilirubin Negative, Urine Urobilinogen Normal, Ur Leukocyte Esterase Negative, Urine RBC 0 SEEN, Urine WBC 0-5 SEEN, Ur Squamous Epith Cells 0-5 SEEN, Urine Bacteria RARE, Urine Mucus 0 SEEN Current Medications Sodium Chloride () 1,000 mls @ 150 mls/hr IV .Q6H40M [facility] Last Admin: 11/07/19 19:31 Dose: 150 mls/hr Documented by: Assessment/Plan All Active Problems (Last Reviewed 11/08/19 @ 00:[address] Jacob Landeros MD) Hypothermia (Acute) Acute encephalopathy (Acute) Bradycardia (Acute) Discitis of cervical region (Resolved) The patient is a 64 year old F with a significant history of hypertension; DRESS syndrome; diabetes; rheumatoid arthritis; asthma who presented to emergency department with altered mental status; hypothermia; bradycardia with EKG showing a P wave inversion in inferior leads; and also with hypoglycemia. Hypothermia; bradycardia; acute encephalopathy; hypoglycemia. Her constellation of symptoms is difficult to explain with a unifying diagnosis. Brain CT showed chronic involutional changes without any acute abnormalities. Placed on Prashant hugger at the emergency department; continued. Started on normal saline infusion in the emergency department. We will continue patient on D5 with half-normal saline. Follow blood cultures. Drug screen was negative. Get an echocardiogram. Repeat EKG. Hold oral hypoglycemic regimen. Hold all blood pressure medications at this time. Will place patient on intensive care unit. Java Xml Developer consult. Diabetes mellitus with nephropathy Noted to have proteinuria likely from diabetes mellitus. Because of hyperglycemia hold all home hypoglycemic regimen. Trend Accu-Cheks. AGGIE on CKD stage III. Likely diabetes mellitus and hypertension contributing to CKD. On presentation her creatinine was 1.63. Baseline creatinine is around 1.3. BUN is 25. BUN over creatinine is 15.3. Likely prerenal leading to intrinsic renal in the baseline of intrinsic diabetic nephropathy. Avoid nephrotoxins. Gentle IV hydration. Trend BMP. DVT prophylaxis Subcutaneous Lovenox. Code Visit Inpatient E&M: 46372 Init Hosp L3
--- NOTE | 2019-11-07 22:28 | ED.RN ---
REPORT [facility] BEAUTICIAN APPRENTICENIKKI RODRIGUEZ.
--- NOTE | 2019-11-07 23:12 | ECHOD_ITS ---
Reason For Study: Arrhythmia Procedure This was a 2D Doppler, Color Flow transthoracic echocardiogram. Exam performed portable in patient room. Left Ventricle Mild concentric left ventricular hypertrophy. The estimated ejection fraction is 75 %. Stage 1 diastolic dysfunction. No regional wall motion abnormalities noted. Right Ventricle Normal size and thickness. Normal systolic function. Atria Normal left atrium. Normal right atrium. Hypermobile atrial septum. Mitral Valve The mitral valve is structurally normal. No prolapse or stenosis seen. Tricuspid Valve Normal tricuspid valve. Unable to estimate RV systolic pressure due to insufficient tricuspid regurgitant envelope. Aortic Valve Normal aortic valve. Trisinus/trileaflet aortic valve. Pulmonic Valve Normal pulmonic valve. Great Vessels Normal aortic root. Normal arch. Normal inferior vena cava. Inferior vena cava collapse with sniff. Pericardium/Pleural No pericardial effusion. Medication Negative bubbel study on previous echo. MMode/2D Measurements & Calculations LVIDd: 4.3 cm IVSd: 1.3 cm Ao root diam: 2.4 cm LVIDs: 2.3 cm LVPWd: 1.4 cm RVDd: 3.2 cm FS: 47.0 % LAV(MOD-bp): 54.2 ml LA A4 area: 15.9 cm2 LA dimension(2D): 3.1 cm LAV(MOD-bp) Indexed: 29.9 ml/m2 LAV(MOD-sp2): 70.5 ml LAV(MOD-sp4): 40.5 ml RA A4 area: 12.6 cm2 Doppler Measurements & Calculations MV E max migel: 78.7 cm/sec Lat Peak E' Migel: 6.6 cm/sec Med Peak E' Migel: 4.2 cm/sec MV A max migel: 97.6 cm/sec E/E' lat: 11.8 E/E' med: 18.8 MV E/A: 0.81 Ao V2 max: 167.6 cm/sec LV V1 max: 129.5 cm/sec PA V2 max: 109.5 cm/sec Ao max P.2 mmHg LV V1 max P.7 mmHg Interpretation Summary Mild concentric left ventricular hypertrophy. The estimated ejection fraction is 75 %. Stage 1 diastolic dysfunction. Hypermobile atrial septum. Unable to estimate RV systolic pressure due to insufficient tricuspid regurgitant envelope. Compared to echo report dated 04/26/2019, no appreciable changes noted. Ordering Physician: Jacob Landeros Referring Physician: Dru Cummins M.D. Performed By: Jenna Luis RDCS, RVT
[2019-11-07 23:21] LABS: Bedside Glucose 173 mg/dL (70-110)
[2019-11-07] MEDS: 0.9% Saline Lock 10 ML Syringe IV (23:37)
[2019-11-07] MEDS: Dext 5%-0.45% NS 1,000 ML 100 ML IV (23:38)
[2019-11-08] VITALS (23 sets, daily range): BP systolic 139–223; BP diastolic 44–79; PULSE 71–99; RESP 9–20; TEMP 35.9–37.6; O2SAT 96–99
--- NOTE | 2019-11-08 | EKG12_ITS ---
Test Reason : AM EKG Blood Pressure : / mmHG Vent. Rate : 080 BPM Atrial Rate : 080 BPM P-R Int : 146 ms QRS Dur : 072 ms QT Int : 458 ms P-R-T Axes : 000 085 -05 degrees QTc Int : 528 ms Normal sinus rhythm vs ectopic atrial rhythm Septal infarct , age undetermined Prolonged QT Nonspecific T-Wave Abnormality Abnormal ECG Confirmed by DANYEL PIZARRO, SILVESTRE ([id number]), scientific editor ADRIÁN BURRIS ([id number]) on 11/10/2019 1:59:16 PM Referred By: CHINEDU Confirmed By:SILVESTRE MONTAÑO MD
[2019-11-08 00:20] LABS: Bedside Glucose 176 mg/dL (70-110)
--- NOTE | 2019-11-08 01:01 | NURSING ---
rodolfo carson removed at this time.
[2019-11-08] MEDS: Acetaminophen 325 MG Tablet 650 MG PO ×2 (01:17→07:56)
[2019-11-08 01:21] LABS: Bedside Glucose 199 mg/dL (70-110)
[2019-11-08] MEDS: 0.9% Normal Saline 1,000 ML 100 ML IV ×3 (01:25→20:29)
[2019-11-08 04:21] LABS: Bedside Glucose 139 mg/dL (70-110)
[2019-11-08 04:42] LABS: Absolute Lymphocyte Count 2.03 X10^3/uL (0.83-4.51); Absolute Neutrophil Count 2.2 X10^3/uL (2.0-7.7); Basophil# 0.03 X10^3/uL; Basophil% 0.6 % (0-1); Eosinophil# 0.02 X10^3/uL; Eosinophils% 0.4 % (0-5); Hematocrit 30.9 % (37-47); Hemoglobin 9.7 g/dL (12.0-15.0); Lymphocyte # 2.03 X10^3/ul (4.0); Lymphocyte % 42.2 % (19-41); Mean Corp Hgb Conc 31.4 g/dL (32-36); Mean Corpuscular Volume 89.3 fL (81-99); Monocyte# 0.51 X10^3/uL; Monocyte% 10.6 % (0-10); NRBC Flagged by Analyzer 0 % (0-5); Neutrophil # 2.21 X10^3/uL (2.7-7.7); Platelet Count 182 K/mm3 (150-450); RBC Distribution Width CV 13.8 % (11.6-14.6); Red Blood Count 3.46 M/mm3 (4.2-5.4); White Blood Count 4.8 K/mm3 (4.4-11.0)
[2019-11-08 05:14] LABS: Anion Gap 8 (5-15); BUN 27 mg/dL (7-18); BUN/Creat Ratio 17.2 RATIO (10-20); Calcium,Total 8.9 mg/dL (8.5-10.1); Chloride 106 mmol/L (98-107); Creatinine, Serum 1.57 mg/dL (0.55-1.02); EST Glomerular Filtration Rate 36 mL/min (>60); Est Glom Filt Rate - Afr Amer 43 mL/min (>60); Estimated Creatinine Clearance 32.08 ml/min; Glucose 143 mg/dL (74-106); Potassium 4.2 mmol/L (3.5-5.1); Sodium Level 137 mmol/L (136-145)
[2019-11-08] MEDS: hydrALAZINE 20 MG/ML Vial 10 MG IV ×2 (05:27→20:29)
[2019-11-08] MEDS: 0.9% Saline Lock 10 ML Syringe IV (05:27)
--- NOTE | 2019-11-08 06:38 | PCM.CON.CC ---
Reason for Consult Date of Consultation: 11/08/19 Reason for Consultation: Encephalopathy/hypothermia History of Present Illness: The patient is a 64-year-old female, with a history as outlined below, who presented to the emergency department on November 07 with altered mentation. The patient reports that she currently resides in a home with her grandchildren. She was visiting a friend yesterday and decided to take a nap. Apparently, the patient was confused upon awakening from said nap. The patient does not recall the events that transpired yesterday. The patient was evaluated in the emergency department on November 05, at which time she was noted to be hypoglycemic. The patient does report that she has had difficulty in the past confusing her long and short acting insulins. On presentation to the emergency department, the patient was noted to be hypothermic and bradycardic. She was, nevertheless, maintaining appropriate oxygen saturations on room air. Laboratory evaluation revealed no evidence of a leukocytosis. There was evidence of normocytic anemia. Chemistry profile revealed evidence of chronic kidney disease with a creatinine of 1.63. AST and ALT were mildly increased to 87 and 93, respectively. Initial troponin was mildly elevated at 0.058. TSH was within normal limits. Urine analysis was unremarkable. Serum alcohol level was negative. Toxicology screen was negative. CT head only revealed evidence of chronic involutional changes of the brain. Initial plain film chest x-ray revealed no acute cardiopulmonary process. In the emergency department, the patient was placed on a Prashant hugger for passive rewarming. She also received dextrose containing supplemental IV fluids as well. The patient was subsequently transferred to the medical intensive care unit for further management. Overnight, the patient has remained clinically stable. Her Gudino catheter was discontinued overnight. The patient is now euthermic and no longer requiring a Prashant hugger. She is hemodynamically stable and maintaining appropriate oxygen saturations on room air. Past Medical History Past Medical History (Chronic Problems): Chronic Problems (Last Reviewed 11/08/19 @ 01:[address] Jacob Landeros MD) Debility (Chronic) Asthma exacerbation (Chronic) Elevated liver enzymes (Chronic) Diabetes (Chronic) Rheumatoid arthritis (Chronic) Type II diabetes mellitus (Chronic) Hypertension (Chronic) Medical History: Medical History (Last Reviewed 11/08/19 @ 01:[address] Jacob Landeros MD) Diabetes (Chronic) E11.9 Rheumatoid arthritis (Chronic) M06.9 Asthma J45.909 Chest pain R07.9 SOB (shortness of breath) R06.02 Stroke I63.9 Hypertension I10 Allergies ceftriaxone Allergy (Severe, Verified 11/07/19 18:45) Rash vancomycin Allergy (Severe, Verified 11/07/19 18:45) Rash Penicillins Allergy (Verified 11/07/19 18:45) Swelling oxycodone HCl [From Percocet] Adverse Reaction (Verified 11/07/19 18:45) Itching Home Medications: Ambulatory Orders Medication Instructions Recorded Ipratropium/Albuterol Sulfate 3 ml INHALATION Q6HWA.RT ampul.neb 04/27/19 [Duoneb] Insulin Lispro [Admelog Solostar] 16 unit SQ BID 06/25/19 Insulin Lispro [Humalog KwikPen] 16 unit SUBCUT BID 06/25/19 Mag Hydrox/Aluminum Hyd/Simeth 30 ml PO Q4H PRN PRN 06/25/19 [Antacid Suspension] atorvastatin 80 mg tablet 80 mg PO QHS #90 tab 09/21/19 carvedilol 12.5 mg tablet 12.5 mg PO BID #180 tab 09/21/19 fluconazole 150 mg tablet 150 mg PO Q3D 0 Days #2 tab 09/21/19 insulin glargine 100 unit/mL (3 20 unit SC QHS #15 ml 09/21/19 mL) subcutaneous pen lanolin-mineral oil 1 applic TOPICAL DAILY PRN #500 ml 09/21/19 lisinopril 10 mg tablet 10 mg PO DAILY #90 tab 09/21/19 polysaccharide iron complex 150 mg 150 mg PO DAILYCM #90 cap 09/21/19 iron capsule triamcinolone acetonide 0.5 % 1 applic TOPICAL BID #2 tube 09/21/19 topical cream blood sugar diagnostic See Rx Instructions .ROUTE 09/23/19 .MEDSUPPLY #100 ea blood-glucose meter See Rx Instructions .ROUTE 09/24/19 .MEDSUPPLY #1 ea blood sugar diagnostic See Rx Instructions .ROUTE 09/28/19 .MEDSUPPLY #100 ea blood-glucose meter See Rx Instructions .ROUTE 09/28/19 .MEDSUPPLY #1 ea pen needle, diabetic 29 gauge x See Rx Instructions .ROUTE 10/22/19 1/2 .MEDSUPPLY #100 ea lancets 30 gauge See Rx Instructions .ROUTE 10/29/19 .MEDSUPPLY #100 ea aspirin 81 mg chewable tablet 81 mg PO DAILY@0800 #90 tab 11/02/19 hydralazine 50 mg tablet 100 mg PO TID #90 tab 11/02/19 hydroxyzine HCl 10 mg tablet 10 mg PO TID PRN #30 tab 11/02/19 lancets See Rx Instructions .ROUTE 11/02/19 .MEDSUPPLY #200 ea Acetaminophen [Acetaminophen Extra 500 mg PO PRN PRN 11/08/19 Strength] Ertugliflozin Pidolate [Steglatro] 15 mg PO DAILY 11/08/19 Insulin Lispro [Insulin Lispro 12 unit SUBCUT BREAKFAST 11/08/19 Kwikpen U-100] Surgical History: Surgical History (Last Reviewed 11/08/19 @ 01:[address] 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 Jacob Landeros MD) Mother Hypertension Emphysema/COPD Sister Hypertension History Items: No pertinent history Paternal Family History: Family History (Last Reviewed 11/08/19 @ 01:[address] Jacob Landeros MD) Mother Hypertension Emphysema/COPD Sister Hypertension History Items: No pertinent history Review of Systems Constitutional: Reports: Weakness, Fatigue Eyes: Denies: Blurred vision, Double vision HEENT: Denies: Head Aches, Sinus Congestion, Sinus Drainage Cardiovascular: Denies: Chest Pain, Palpitations Respiratory: Denies: Cough, Shortness of breath at rest, Sputum production Gastrointestinal: Denies: Abdominal Pain, Nausea, Vomiting Genitourinary: Denies: Dysuria Musculoskeletal: Reports: Shoulder Pain Skin: Denies: Rash, Wounds Neurological: Denies: Numbness, Tingling, Focal weakness Psychiatric: Denies: Anxiety, Depression, Homicidal Ideations, Suicidal Ideations Hematologic/ Lymphatic: Reports: Anemia Patient Problems: Active and Suspected Problems (Last Reviewed 11/08/19 @ 01:[address] Jacob Landeros MD) Hypothermia (Acute) Acute encephalopathy (Acute) Bradycardia (Acute) Objective: The patient's most recent lab work, culture data and imaging studies have all been personally reviewed. Blood cultures are pending. Rapid influenza screen was negative. Respiratory viral panel was negative. - Physical Exam Vitals/I&O's: Vital Signs Temp Pulse Resp BP Pulse Ox 99.7 F H 82 16 168/61 H 99 11/08/19 05:00 11/08/19 06:00 11/08/19 06:00 11/08/19 06:00 11/08/19 06:00 Oxygen Delivery Method Room Air Weight: 177 lb 4.026 oz Body Mass Index (BMI) 30.1 Finger Stick Blood Glucose 595 Intake and Output for Last 24 Hours 11/06/19 11/07/19 11/08/19 23:59 23:59 23:59 Intake Total 822.5 / 822.5 623.33 / 623.33 Output Total 1075 / 1075 Balance 822.5 / 97.5 -451.67 / -451.67 General: Alert, Oriented x3, Cooperative, No apparent distress HEENT: Atraumatic, PERRLA, Normocephalic Oral: No Gingival or Mucosal Lesions/ Ulcerations Neck: Supple, No Nodes, Trachea Midline Lungs: No rhonchi, No wheeze, No rales Cardiovascular: Regular rate, Regular Rhythm, Normal S1, Normal S2 Abdomen: Bowel Sounds Present, Soft, Non Tender Extremities: No clubbing, No cyanosis, No edema Skin: No breakdown Musculoskeletal: No Tenderness to Palpation of Joints or Extremities, No Muscle Wasting Lymphatic: No Cervical, Supraclavicular, or Inguinal Adenopathy Neurological: Cranial nerves II-XII grossly intact, Neuro grossly intact Psych/Mental Status: Alert and oriented to time, place, person, mood and affect Labs (Last 48 Hours) 11/07/19 11/07/19 11/07/19 18:49 19:15 19:15 WBC 5.7 RBC 3.59 L Hgb 10.3 L Hct 32.5 L MCV 90.5 MCH 28.7 MCHC 31.7 L RDW Std Deviation 45.3 H RDW Coeff of Dottie 13.8 Plt Count 210 MPV 9.3 Immature Gran % (Auto) 0.400 Neut % (Auto) 42.1 L Lymph % (Auto) 45.2 H [place] % (Auto) 9.5 Eos % (Auto) 1.9 Baso % (Auto) 0.9 Absolute Neuts (auto) 2.4 Absolute Lymphs (auto) 2.58 Nucleated RBC % 0 Sodium 139 Potassium 3.8 Chloride 107 Carbon Dioxide 27.0 Anion Gap 5 BUN 25 H Creatinine 1.63 H Estim Creat Clear Calc 28.30 Est GFR (MDRD) Af Amer 41 L Est GFR (MDRD) Non-Af 34 L BUN/Creatinine Ratio 15.3 Glucose 73 L Lactic Acid Calcium 9.2 Total Bilirubin 0.40 Direct Bilirubin 0.21 AST 87 H ALT 93 H Alkaline Phosphatase 88 Troponin I 0.058 H Total Protein 7.9 Albumin 3.0 L Globulin 4.9 H TSH Urine Color Urine Clarity Urine pH Ur Specific [place] Urine Protein Urine Glucose (UA) Urine Ketones Urine Occult Blood Urine Nitrite Urine Bilirubin Urine Urobilinogen Ur Leukocyte Esterase Urine RBC Urine WBC Ur Squamous Epith Cells Urine Bacteria Urine Mucus Urine Opiates Screen Urine Methadone Screen Ur Barbiturates Screen Ur Phencyclidine Scrn Ur Amphetamines Screen U Methamphetamin-MDMA U Benzodiazepines Scrn Urine Cocaine Screen U Cannabinoids Screen Ur Drug Screen Comment Ethyl Alcohol POC Glucose 64 L 11/07/19 11/07/19 11/07/19 19:15 19:15 19:25 WBC RBC Hgb Hct MCV MCH MCHC RDW Std Deviation RDW Coeff of Dottie Plt Count MPV Immature Gran % (Auto) Neut % (Auto) Lymph % (Auto) [place] % (Auto) Eos % (Auto) Baso % (Auto) Absolute Neuts (auto) Absolute Lymphs (auto) Nucleated RBC % Sodium Potassium Chloride Carbon Dioxide Anion Gap BUN Creatinine Estim Creat Clear Calc Est GFR (MDRD) Af Amer Est GFR (MDRD) Non-Af BUN/Creatinine Ratio Glucose Lactic Acid 1.0 Calcium Total Bilirubin Direct Bilirubin AST ALT Alkaline Phosphatase Troponin I Total Protein Albumin Globulin TSH 1.25 Urine Color Urine Clarity Urine pH Ur Specific [place] Urine Protein Urine Glucose (UA) Urine Ketones Urine Occult Blood Urine Nitrite Urine Bilirubin Urine Urobilinogen Ur Leukocyte Esterase Urine RBC Urine WBC Ur Squamous Epith Cells Urine Bacteria Urine Mucus Urine Opiates Screen Urine Methadone Screen Ur Barbiturates Screen Ur Phencyclidine Scrn Ur Amphetamines Screen U Methamphetamin-MDMA U Benzodiazepines Scrn Urine Cocaine Screen U Cannabinoids Screen Ur Drug Screen Comment Ethyl Alcohol < 3.0 POC Glucose 11/07/19 11/07/19 11/07/19 20:20 20:20 23:18 WBC RBC Hgb Hct MCV MCH MCHC RDW Std Deviation RDW Coeff of Dottie Plt Count MPV Immature Gran % (Auto) Neut % (Auto) Lymph % (Auto) [place] % (Auto) Eos % (Auto) Baso % (Auto) Absolute Neuts (auto) Absolute Lymphs (auto) Nucleated RBC % Sodium Potassium Chloride Carbon Dioxide Anion Gap BUN Creatinine Estim Creat Clear Calc Est GFR (MDRD) Af Amer Est GFR (MDRD) Non-Af BUN/Creatinine Ratio Glucose Lactic Acid Calcium Total Bilirubin Direct Bilirubin AST ALT Alkaline Phosphatase Troponin I Total Protein Albumin Globulin TSH Urine Color Yellow Urine Clarity Clear Urine pH 6.0 Ur Specific [place] 1.010 Urine Protein 100 H Urine Glucose (UA) Normal Urine Ketones Negative Urine Occult Blood Negative Urine Nitrite Negative Urine Bilirubin Negative Urine Urobilinogen Normal Ur Leukocyte Esterase Negative Urine RBC 0 SEEN Urine WBC 0-5 SEEN Ur Squamous Epith Cells 0-5 SEEN Urine Bacteria RARE Urine Mucus 0 SEEN Urine Opiates Screen NEGATIVE Urine Methadone Screen NEGATIVE Ur Barbiturates Screen NEGATIVE Ur Phencyclidine Scrn NEGATIVE Ur Amphetamines Screen NEGATIVE U Methamphetamin-MDMA NEGATIVE U Benzodiazepines Scrn NEGATIVE Urine Cocaine Screen NEGATIVE U Cannabinoids Screen NEGATIVE Ur Drug Screen Comment Ethyl Alcohol POC Glucose 173 H 11/07/19 11/08/19 11/08/19 23:20 00:14 01:15 WBC RBC Hgb Hct MCV MCH MCHC RDW Std Deviation RDW Coeff of Dottie Plt Count MPV Immature Gran % (Auto) Neut % (Auto) Lymph % (Auto) [place] % (Auto) Eos % (Auto) Baso % (Auto) Absolute Neuts (auto) Absolute Lymphs (auto) Nucleated RBC % Sodium Potassium Chloride Carbon Dioxide Anion Gap BUN Creatinine Estim Creat Clear Calc Est GFR (MDRD) Af Amer Est GFR (MDRD) Non-Af BUN/Creatinine Ratio Glucose Lactic Acid Calcium Total Bilirubin Direct Bilirubin AST ALT Alkaline Phosphatase Troponin I 0.037 Total Protein Albumin Globulin TSH Urine Color Urine Clarity Urine pH Ur Specific [place] Urine Protein Urine Glucose (UA) Urine Ketones Urine Occult Blood Urine Nitrite Urine Bilirubin Urine Urobilinogen Ur Leukocyte Esterase Urine RBC Urine WBC Ur Squamous Epith Cells Urine Bacteria Urine Mucus Urine Opiates Screen Urine Methadone Screen Ur Barbiturates Screen Ur Phencyclidine Scrn Ur Amphetamines Screen U Methamphetamin-MDMA U Benzodiazepines Scrn Urine Cocaine Screen U Cannabinoids Screen Ur Drug Screen Comment Ethyl Alcohol POC Glucose 176 H 199 H 11/08/19 11/08/19 11/08/19 01:50 04:09 04:20 WBC 4.8 RBC 3.46 L Hgb 9.7 L Hct 30.9 L MCV 89.3 MCH 28.0 MCHC 31.4 L RDW Std Deviation 45.0 H RDW Coeff of Dottie 13.8 Plt Count 182 MPV 9.0 Immature Gran % (Auto) 0.200 Neut % (Auto) 46.0 L Lymph % (Auto) 42.2 H [place] % (Auto) 10.6 H Eos % (Auto) 0.4 Baso % (Auto) 0.6 Absolute Neuts (auto) 2.2 Absolute Lymphs (auto) 2.03 Nucleated RBC % 0 Sodium Potassium Chloride Carbon Dioxide Anion Gap BUN Creatinine Estim Creat Clear Calc Est GFR (MDRD) Af Amer Est GFR (MDRD) Non-Af BUN/Creatinine Ratio Glucose Lactic Acid Calcium Total Bilirubin Direct Bilirubin AST ALT Alkaline Phosphatase Troponin I 0.043 Total Protein Albumin Globulin TSH Urine Color Urine Clarity Urine pH Ur Specific [place] Urine Protein Urine Glucose (UA) Urine Ketones Urine Occult Blood Urine Nitrite Urine Bilirubin Urine Urobilinogen Ur Leukocyte Esterase Urine RBC Urine WBC Ur Squamous Epith Cells Urine Bacteria Urine Mucus Urine Opiates Screen Urine Methadone Screen Ur Barbiturates Screen Ur Phencyclidine Scrn Ur Amphetamines Screen U Methamphetamin-MDMA U Benzodiazepines Scrn Urine Cocaine Screen U Cannabinoids Screen Ur Drug Screen Comment Ethyl Alcohol POC Glucose 139 H 11/08/19 11/08/19 04:20 06:53 WBC RBC Hgb Hct MCV MCH MCHC RDW Std Deviation RDW Coeff of Dottie Plt Count MPV Immature Gran % (Auto) Neut % (Auto) Lymph % (Auto) [place] % (Auto) Eos % (Auto) Baso % (Auto) Absolute Neuts (auto) Absolute Lymphs (auto) Nucleated RBC % Sodium 137 Potassium 4.2 Chloride 106 Carbon Dioxide 23.0 Anion Gap 8 BUN 27 H Creatinine 1.57 H Estim Creat Clear Calc 32.08 Est GFR (MDRD) Af Amer 43 L Est GFR (MDRD) Non-Af 36 L BUN/Creatinine Ratio 17.2 Glucose 143 H Lactic Acid Calcium 8.9 Total Bilirubin Direct Bilirubin AST ALT Alkaline Phosphatase Troponin I 0.033 Total Protein Albumin Globulin TSH Urine Color Urine Clarity Urine pH Ur Specific [place] Urine Protein Urine Glucose (UA) Urine Ketones Urine Occult Blood Urine Nitrite Urine Bilirubin Urine Urobilinogen Ur Leukocyte Esterase Urine RBC Urine WBC Ur Squamous Epith Cells Urine Bacteria Urine Mucus Urine Opiates Screen Urine Methadone Screen Ur Barbiturates Screen Ur Phencyclidine Scrn Ur Amphetamines Screen U Methamphetamin-MDMA U Benzodiazepines Scrn Urine Cocaine Screen U Cannabinoids Screen Ur Drug Screen Comment Ethyl Alcohol POC Glucose 100 Microbiology 11/07/19 19:37 Mucosa - Nasopharyngeal Influenza Types A,B Direct [facility] ([facility]) - Final Clinical Impression(s) from Imaging Studies Brain CT 11/07/19 19:14 IMPRESSION: 1. Chronic involutional changes of the brain. 2. No CT evidence of acute intracranial hemorrhage. Electronically Signed: Aylin Welsh MD at 21:02 EST , Service support , Chest X-Ray 11/07/19 19:14 IMPRESSION: Cardiomegaly without obvious acute cardiopulmonary disease. Electronically Signed: Aylin Welsh MD at 20:22 EST , Service support , Current Medications Acetaminophen (Tylenol) 650 mg PO Q6H PRN PRN PRN Reason: Pain Score 1-10/10 Last Admin: 11/08/19 01:17 Dose: 650 mg Documented by: Chlorhexidine Gluconate () 1 each TOPICAL DAILY B[facility]RON Enoxaparin Sodium (Lovenox) 30 mg SC DAILY [facility] Glucagon () 1 mg IM .X1 PRN PRN Reason: Hypoglycemia Hydralazine HCl (Apresoline Iv) 10 mg IV Q4H PRN PRN PRN Reason: SBP >160 Last Admin: 11/08/19 05:27 Dose: 10 mg Documented by: Sodium Chloride () 250 mls @ 15 mls/hr IV .[id number] PRN PRN Reason: Saline Flush Sodium Chloride () 250 mls @ 15 mls/hr IV .[id number] PRN PRN Reason: Additional IVPB Infusion Dextrose (Dextrose 10%-Water) 250 mls @ 999 mls/hr IV .Q16M PRN; Protocol PRN Reason: HYPOGLYCEMIA Sodium Chloride () 1,000 mls @ 100 mls/hr IV .Q10H BAYRON Last Admin: 11/08/19 01:25 Dose: 100 mls/hr Documented by: Ondansetron HCl (Zofran) 4 mg IV Q8H PRN PRN PRN Reason: NAUSEA/VOMITING Sodium Chloride () 10 - 40 ml IV UD PRN PRN Reason: SALINE FLUSH Last Admin: 11/08/19 05:27 Dose: 20 ml Documented by: Assessment/Plan Active and Suspected Problems (Last Reviewed 11/08/19 @ 01:[address] Jacob Landeros MD) Hypothermia (Acute) Acute encephalopathy (Acute) Bradycardia (Acute) RECOMMENDATIONS: 1. Stop supplemental IV fluids. 2. Resume home antihypertensive regimen. 3. Encourage incentive spirometer use while in bed. 4. Physical therapy evaluation. 5. The patient is medically stable for transfer out of the intensive care unit. Given the patient's lack of further ICU or pulmonary needs, will sign off. IMPRESSIONS: 1. Encephalopathy/hypothermia/bradycardia The exact etiology for the patient's presenting symptoms is a bit unclear. Work-up has been largely unrevealing. I do have to wonder if the patient inadvertently took her wrong dose of insulin leading to hypoglycemia. The patient was just evaluated in the emergency department several days prior to this hospital admission with weakness and hypoglycemia. The patient did respond to dextrose containing supplemental IV fluids along with passive rewarming. Her mentation subsequently improved as well. TSH was within normal limits. CT head was unremarkable. I do not see any evidence of an acute infectious etiology. 2. Diabetes mellitus/hyperlipidemia/hypertension/obesity Complicates care, management, recovery and prognosis. Okay to continue home medications as indicated. Physical therapy to evaluate the patient today. This note was generated with AURS[employer]ation software. It may contain incorrect words, spelling, and punctuation that were not noted in checking the note before signing. Code Visit Inpatient E&M: 52453 Init Hosp L3
[2019-11-08 06:56] LABS: Bedside Glucose 100 mg/dL (70-110)
--- NOTE | 2019-11-08 07:07 | NURSING ---
bowles catheter D/C'd at this time, patient tolerated well, brief placed.
[2019-11-08 08:21] LABS: Bedside Glucose 119 mg/dL (70-110)
[2019-11-08] MEDS: Aspirin 81 MG TAB.CHEW PO (10:09)
[2019-11-08] MEDS: Enoxaparin 40 MG/0.4 ML Syringe SC (10:09)
[2019-11-08] MEDS: Carvedilol 12.5 MG Tablet PO ×2 (10:09→20:29)
[2019-11-08] MEDS: Lisinopril 10 MG Tablet PO (10:09)
--- NOTE | 2019-11-08 12:17 | CASEMGMT ---
Addendum entered by Danica Wilson 11/08/19 14:45: Return call from Shannon Castrejon. She confirms pt meals and med alert but states pt does not have aides and does not know who the nurse is that pt is talking about. Shannon did state that a friend visits and assists pt - Ania Bam, . SW to follow up ALBERT Katz Original Note: Social Work SW met with pt and completed assessment. Pt lives at home with her 20 year old grandson Ki and her 15 year old granddaughter Reena. Pt states her daughter, children's mother, was shot and killed in 2012 and pt is caregiver for grandchildren. Pt stating she is on disability because she cannot read and write. Pt states she is able to get around her home well, cooks and cleans. Does not use any DME. She does not drive but a friend will take her for groceries or errands and Ki can help with that as well. SW inquired who was caring for 15 year old granddaughter while pt was here and pt states Ki goes to college and is home when Reena gets home from school and looks after her. Pt does states she has a medical alert and meals on wheels and that a Nurse comes to her house M,T,W from 9-3. When asked where the nurse is from pt states Medicaid sends her. When asked if she had a egg caser pt states she does but has not met her yet and does not know her name. Pt stating that nurse sets up her medicines in a pillbox and has written down how to take the insulin. Per pt, granddaughter draws up the insulin and pt is able to self administer once during the day and once in the evening. SW inquired where pt was when medical emergency happened. Pt became short with SW and raised voice stating it was none of your business and your asking too many personal questions. SW did not push the conversation further. Pt plans to return home upon d/c and states the nurse has been very helpful and she does not need additional assist. Phone call to [employer] and spoke with developmental electronics assembler lead case manager. He confirmed that pt is a client of [employer] and Shannon Castrejon is the [employer] Trimmer. Pt receives [employer] Meals - 4 delivered on , and [employer] [facility] [employer] Whe[employer] - 1 hot meal M-F. Pt has also been provided with a emergency alert. LU inquired about NETWORK SECURITY ADMINISTRATOR M,W,F however, this worker was unable to clarify if this had been set up. LU called Shannon Castrejon and left VM inquiring about NETWORK SECURITY ADMINISTRATOR and requested return call. LU to continue to follow. ALBERT Katz
--- NOTE | 2019-11-08 18:09 | PCM.PN.HOSP ---
Patient Problems: Active and Suspected Problems (Last Reviewed 11/08/19 @ 01:[address] Jacob Landeros MD) Hypothermia (Acute) Acute encephalopathy (Acute) Bradycardia (Acute) Subjective: Patient was seen and examined today, she has not been hypothermic today. She does not complain of any fevers or chills. Vitals/I&O's: Vital Signs Temp Pulse Resp BP Pulse Ox 98.9 F 79 18 154/48 H 98 11/08/19 15:00 11/08/19 15:00 11/08/19 15:00 11/08/19 15:00 11/08/19 15:00 Oxygen Delivery Method Room Air Weight: 80.4 kg Body Mass Index (BMI) 30.1 Finger Stick Blood Glucose 595 Intake and Output for Last 24 Hours 11/06/19 11/07/19 11/08/19 23:59 23:59 23:59 Intake Total 822.5 / 822.5 1601.66 / 1601.66 Output Total 1075 / 1075 Balance 822.5 / 97.5 526.66 / 526.66 General: Alert, Oriented x3, Cooperative, No apparent distress, Well developed, Well nourished HEENT: Atraumatic, PERRLA, EOMI, Normocephalic Oral: Moist Mucosa Neck: Supple, No JVD, Trachea Midline, Thyroid Normal Size and Texture Lungs: Clear to auscultation, Normal air movement, No rhonchi, No wheeze, No rales Cardiovascular: Regular rate, Regular Rhythm, Normal S1, Normal S2, No murmurs, PMI Normal, No rub noted, No Gallop Abdomen: Bowel Sounds Present, Soft, Non Tender, Non-Distended Extremities: No clubbing, No cyanosis, No edema, Capillary Refill Less than 3 Seconds Skin: No rashes, No breakdown Musculoskeletal: No Tenderness to Palpation of Joints or Extremities Neurological: Cranial nerves II-XII grossly intact, Neuro grossly intact, Sensory exam intact to light touch and pain Psych/Mental Status: Normal Affect, Appropriate, Alert and oriented to time, place, person, mood and affect Microbiology Past 72 Hours 11/08/19 05:28 Mucosa - Nose Respiratory Panel (PCR) - Final 11/07/19 19:37 Mucosa - Nasopharyngeal Influenza Types A,B Direct FA (SIMONE) - Final Laboratory Results 11/07/19 18:49: POC Glucose 64 L 11/07/19 19:15: WBC 5.7, RBC 3.59 L, Hgb 10.3 L, Hct 32.5 L, MCV 90.5, MCH 28.7, MCHC 31.7 L, RDW Std Deviation 45.3 H, RDW Coeff of Dottie 13.8, Plt Count 210, MPV 9.3, Immature Gran % (Auto) 0.400, Neut % (Auto) 42.1 L, Lymph % (Auto) 45.2 H, Benzie % (Auto) 9.5, Eos % (Auto) 1.9, Baso % (Auto) 0.9, Absolute Neuts (auto) 2.4, Absolute Lymphs (auto) 2.58, Nucleated RBC % 0 11/07/19 19:15: Sodium 139, Potassium 3.8, Chloride 107, Carbon Dioxide 27.0, Anion Gap 5, BUN 25 H, Creatinine 1.63 H, Estim Creat Clear Calc 28.30, Est GFR (MDRD) Af Amer 41 L, Est GFR (MDRD) Non-Af 34 L, BUN/Creatinine Ratio 15.3, Glucose 73 L, Calcium 9.2, Total Bilirubin 0.40, Direct Bilirubin 0.21, AST 87 H, ALT 93 H, Alkaline Phosphatase 88, Troponin I 0.058 H, Total Protein 7.9, Albumin 3.0 L, Globulin 4.9 H 11/07/19 19:15: Lactic Acid 1.0 11/07/19 19:15: TSH 1.25 11/07/19 19:25: Ethyl Alcohol < 3.0 11/07/19 20:20: Urine Opiates Screen NEGATIVE, Urine Methadone Screen NEGATIVE, Ur Barbiturates Screen NEGATIVE, Ur Phencyclidine Scrn NEGATIVE, Ur Amphetamines Screen NEGATIVE, U Methamphetamin-MDMA NEGATIVE, U Benzodiazepines Scrn NEGATIVE, Urine Cocaine Screen NEGATIVE, U Cannabinoids Screen NEGATIVE, Ur Drug Screen Comment 11/07/19 20:20: Urine Color Yellow, Urine Clarity Clear, Urine pH 6.0, Ur Specific [place] 1.010, Urine Protein 100 H, Urine Glucose (UA) Normal, Urine Ketones Negative, Urine Occult Blood Negative, Urine Nitrite Negative, Urine Bilirubin Negative, Urine Urobilinogen Normal, Ur Leukocyte Esterase Negative, Urine RBC 0 SEEN, Urine WBC 0-5 SEEN, Ur Squamous Epith Cells 0-5 SEEN, Urine Bacteria RARE, Urine Mucus 0 SEEN 11/07/19 23:18: POC Glucose 173 H 11/07/19 23:20: Troponin I 0.037 11/08/19 00:14: POC Glucose 176 H 11/08/19 01:15: POC Glucose 199 H 11/08/19 01:50: Troponin I 0.043 11/08/19 04:09: POC Glucose 139 H 11/08/19 04:20: WBC 4.8, RBC 3.46 L, Hgb 9.7 L, Hct 30.9 L, MCV 89.3, MCH 28.0, MCHC 31.4 L, RDW Std Deviation 45.0 H, RDW Coeff of Dottie 13.8, Plt Count 182, MPV 9.0, Immature Gran % (Auto) 0.200, Neut % (Auto) 46.0 L, Lymph % (Auto) 42.2 H, Benzie % (Auto) 10.6 H, Eos % (Auto) 0.4, Baso % (Auto) 0.6, Absolute Neuts (auto) 2.2, Absolute Lymphs (auto) 2.03, Nucleated RBC % 0 11/08/19 04:20: Sodium 137, Potassium 4.2, Chloride 106, Carbon Dioxide 23.0, Anion Gap 8, BUN 27 H, Creatinine 1.57 H, Estim Creat Clear Calc 32.08, Est GFR (MDRD) Af Amer 43 L, Est GFR (MDRD) Non-Af 36 L, BUN/Creatinine Ratio 17.2, Glucose 143 H, Calcium 8.9, Troponin I 0.033 11/08/19 06:53: POC Glucose 100 11/08/19 07:49: POC Glucose 119 H Current Medications Acetaminophen (Tylenol) 650 mg PO Q6H PRN PRN PRN Reason: Pain Score 1-10/10 Last Admin: 11/08/19 07:56 Dose: 650 mg Documented by: Aspirin (Aspirin, Baby) 81 mg PO DAILY@0800 [facility] Last Admin: 11/08/19 10:09 Dose: 81 mg Documented by: Atorvastatin Calcium (Lipitor) 80 mg PO QHS [facility] Carvedilol (Coreg) 12.5 mg PO BID [facility] Last Admin: 11/08/19 10:09 Dose: 12.5 mg Documented by: Enoxaparin Sodium (Lovenox) 40 mg SC DAILY [facility] Last Admin: 11/08/19 10:09 Dose: 40 mg Documented by: Glucagon () 1 mg IM .X1 PRN PRN Reason: Hypoglycemia Hydralazine HCl (Apresoline Iv) 10 mg IV Q4H PRN PRN PRN Reason: SBP >160 Last Admin: 11/08/19 05:27 Dose: 10 mg Documented by: Sodium Chloride () 250 mls @ 15 mls/hr IV .[id number] PRN PRN Reason: Saline Flush Sodium Chloride () 250 mls @ 15 mls/hr IV .[id number] PRN PRN Reason: Additional IVPB Infusion Dextrose (Dextrose 10%-Water) 250 mls @ 999 mls/hr IV .Q16M PRN; Protocol PRN Reason: HYPOGLYCEMIA Sodium Chloride () 1,000 mls @ 100 mls/hr IV .Q10H [facility] Last Admin: 11/08/19 11:12 Dose: 100 mls/hr Documented by: Lisinopril (Zestril) 10 mg PO DAILY [facility] Last Admin: 11/08/19 10:09 Dose: 10 mg Documented by: Nutritional Formula (Lactose Free) (Glucerna Shake) 120 ml PO TIDCM [facility] Last Admin: 11/08/19 17:44 Dose: Not Given Documented by: Ondansetron HCl (Zofran) 4 mg IV Q8H PRN PRN PRN Reason: NAUSEA/VOMITING Sodium Chloride () 10 - 40 ml IV UD PRN PRN Reason: SALINE FLUSH Last Admin: 11/08/19 05:27 Dose: 20 ml Documented by: STROKE Vital Signs/Narrative: Vital Signs Temp Pulse Resp BP Pulse Ox 11/08/19 15:00 98.9 F 79 18 154/48 H 98 Medical Necessity - Tobacco Use Smoking Status: Former smoker Assessment/Plan All Active Problems (Last Reviewed 11/08/19 @ 01:[address] Jacob Landeros MD) Hypothermia (Acute) Acute encephalopathy (Acute) Bradycardia (Acute) Discitis of cervical region (Resolved) #1 hypothermia-etiology unclear, continue to monitor patient, patient appears stable for transfer to [facility] at this time #2 type 2 diabetes-blood sugars will be monitored and she will receive sliding scale insulin coverage, I talked to discharge planning about the patient, there is some concern that the patient may not be monitored appropriately at home as far as her blood sugars concerned. They will be checking into the situation #3 essential hypertension-continue home medications #4 stage III chronic kidney disease secondary to type 2 diabetes #5 acute encephalopathy-etiology unclear-resolving at this time #6 anemia-possibly iron deficient in nature, I will obtain a serum iron on the patient tomorrow Code Visit Inpatient E&M: 00440 Subs Hosp L2
[2019-11-08] MEDS: Atorvastatin Calcium 80 MG Tablet PO (20:29)
[2019-11-08 22:20] LABS: Bedside Glucose 150 mg/dL (70-110)
[2019-11-09] VITALS (16 sets, daily range): BP systolic 152–242; BP diastolic 54–90; PULSE 81–93; RESP 16–19; TEMP 36.4–37.7; O2SAT 95–100
[2019-11-09] MEDS: Acetaminophen 325 MG Tablet 650 MG PO ×2 (02:21→19:08)
[2019-11-09] MEDS: hydrALAZINE 20 MG/ML Vial IV ×2 (04:15→16:21)
[2019-11-09 04:34] LABS: Iron 206 ug/dL (50-170); Iron Binding Capacity,Total 293 ug/dL (250-450); PERCENT IRON SATURATION 70.3 % (15.0-55.0)
[2019-11-09] MEDS: 0.9% Normal Saline 1,000 ML 100 ML IV (06:35)
[2019-11-09] MEDS: Insulin Lispro 100 UNIT/ML INSULN.PEN SC ×3 (06:38→16:28)
[2019-11-09 06:40] LABS: Bedside Glucose 172 mg/dL (70-110)
[2019-11-09] MEDS: Carvedilol 12.5 MG Tablet PO ×2 (09:09→22:08)
[2019-11-09] MEDS: Aspirin 81 MG TAB.CHEW PO (09:09)
[2019-11-09] MEDS: Enoxaparin 40 MG/0.4 ML Syringe SC (09:10)
[2019-11-09] MEDS: Lisinopril 20 MG Tablet PO (09:12)
--- NOTE | 2019-11-09 10:05 | CASEMGMT ---
Addendum entered by Danica Wilson 11/09/19 10:49: Social Work No return call from efrem Emerson. SW placed call to multiple home health companies. [facility] [facility] is currently seeing patient ([phone]). Referral was from Dr. Joao Sheldon, die finisher and start of service was 11/01/19 and pt has had two subsequent visits. Pt was scheduled for 6 more visits. [facility] is the current service and nurse was seeing pt for issues with medication management. Information from [facility] is that multiple meds were empty and other lasted longer than they should. Pt granddaughter was checking BS but not regularly and there were no lancets in the home Pt did not have a medication box and home health nurse assisted with obtaining and setting this up. Home health will resume upon pt d/c. During pt admission in June 2019 referral was made to [facility]. [facility] notes indicate pt never answered phone or returned call and were not able to start care. Phone call to Zev in [facility] and left requesting return call. ALBERT Katz Original Note: Social Work SW met with pt and requested permission to call pt friend Anai Kuhn. Pt became upset with SW stating No!, I told you I don't talk to her anymore. SW then reexplained that SW is trying to find home nurse, pt states that granddaughter told her that nurse came to the house yesterday and granddaughter told the nurse pt was in hospital. SW asked for permission to call efrem Emerson and pt agreed stating he won't answer the phone. Pt did say that name of nurse is on the pill box that granddaughter brought in. LU spoke with NIKKI Bragg who obtained pt home meds which were locked up. No phone number or name of nurse with home meds. Phone call to ferem Emerson and VM left requesting return call. LU received VM from Shannon Castrejon, pt [employer] . Shannon was here to see pt yesterday and states that pt told her the nurse comes from [place] and they do three different things. Pt unable to explain further and Shannon uncertain who or what services pt is referring to. SW to continue to follow. Will await return call from efrem Emerson. ALBERT Katz
[2019-11-09] MEDS: amLODIPine 5 MG Tablet PO ×2 (10:53→20:20)
[2019-11-09 11:05] LABS: Bedside Glucose 208 mg/dL (70-110)
--- NOTE | 2019-11-09 14:41 | CASEMGMT ---
Social Work Referral made to [facility] due to potential risk at home for safety related to medications and 15 year old granddaughter acting as pt caregiver. Pt not forthcoming with home situation. VM left with Donal at [facility]. Kevin Fuentes CM, made aware via VM as well. ALBERT Katz
[2019-11-09] MEDS: metFORMIN HCl 500 MG Tablet PO (16:28)
[2019-11-09 16:36] LABS: Bedside Glucose 195 mg/dL (70-110)
--- NOTE | 2019-11-09 18:54 | PN_ITS ---
Patient Problems: Active and Suspected Problems (Last Reviewed 11/08/19 @ 01:[address] Jacob Landeros MD) Hypothermia (Acute) Acute encephalopathy (Acute) Bradycardia (Acute) Subjective: Patient was seen and examined today in the ICU, she has no complaints of any shortness of breath or chest discomfort, blood sugars have been running in the upper 100 range, I have decided today to place her on metformin and monitor her sugars. I talked briefly to oncology social work about the patient's home situation yesterday, they were going to talk with the granddaughter the patient lives with to see how well she is supervised at home. - Physical Exam Vitals/I&O's: Vital Signs Temp Pulse Resp BP Pulse Ox 97.6 F L 85 16 194/67 H 100 11/09/19 17:00 11/09/19 17:00 11/09/19 17:00 11/09/19 17:00 11/09/19 17:00 Oxygen Delivery Method Room Air Weight: 80.4 kg Body Mass Index (BMI) 30.1 Finger Stick Blood Glucose 595 Intake and Output for Last 24 Hours 11/07/19 11/08/19 11/09/19 23:59 23:59 23:59 Intake Total 822.5 / 822.5 2529.99 / 2529.99 1690 / 1690 Output Total 1325 / 1325 300 / 300 Balance 822.5 / 97.5 1204.99 / 1204.99 1390 / 1390 General: Alert, Oriented x3, Cooperative, No apparent distress, Well developed HEENT: Atraumatic, PERRLA, EOMI, Normocephalic Oral: Moist Mucosa Neck: Supple, Trachea Midline, Thyroid Normal Size and Texture Lungs: Clear to auscultation, Normal air movement, No rhonchi, No wheeze, No rales Cardiovascular: Regular rate, Regular Rhythm, Normal S1, Normal S2, No murmurs, PMI Normal, No rub noted Abdomen: Bowel Sounds Present, Soft, Non Tender, Non-Distended Extremities: No clubbing, No cyanosis, No edema, Capillary Refill Less than 3 Seconds Skin: No rashes, No breakdown Musculoskeletal: No Tenderness to Palpation of Joints or Extremities Neurological: Cranial nerves II-XII grossly intact, Neuro grossly intact, Sensory exam intact to light touch and pain, Coordination normal Psych/Mental Status: Appropriate, Flat Affect, Alert and oriented to time, place, person, mood and affect Microbiology Past 72 Hours 11/08/19 05:28 Mucosa - Nose Respiratory Panel (PCR) - Final 11/07/19 19:37 Mucosa - Nasopharyngeal Influenza Types A,B Direct FA (SIMONE) - Final Laboratory Results 11/08/19 22:12: POC Glucose 150 H 11/09/19 04:00: Iron 206 H, TIBC 293, Iron Saturation 70.3 H 11/09/19 06:34: POC Glucose 172 H 11/09/19 11:00: POC Glucose 208 H 11/09/19 16:25: POC Glucose 195 H Current Medications Acetaminophen (Tylenol) 650 mg PO Q6H PRN PRN PRN Reason: Pain Score 1-1010 Last Admin: 11/09/19 02:21 Dose: 650 mg Documented by: Amlodipine Besylate (Norvasc) 5 mg PO DAILY [facility] Last Admin: 11/09/19 10:53 Dose: 5 mg Documented by: Aspirin (Aspirin, Baby) 81 mg PO DAILY@0800 [facility] Last Admin: 11/09/19 09:09 Dose: 81 mg Documented by: Atorvastatin Calcium (Lipitor) 80 mg PO QHS [facility] Last Admin: 11/08/19 20:29 Dose: 80 mg Documented by: Carvedilol (Coreg) 12.5 mg PO BID [facility] Last Admin: 11/09/19 09:09 Dose: 12.5 mg Documented by: Enoxaparin Sodium (Lovenox) 40 mg SC DAILY [facility] Last Admin: 11/09/19 09:10 Dose: 40 mg Documented by: Glucagon () 1 mg IM .X1 PRN PRN Reason: Hypoglycemia Hydralazine HCl (Apresoline Iv) 20 mg IV Q6H PRN PRN PRN Reason: SBP>160, DBP>100 Last Admin: 11/09/19 16:21 Dose: 20 mg Documented by: Sodium Chloride () 250 mls @ 15 mls/hr IV .[id number] PRN PRN Reason: Saline Flush Sodium Chloride () 250 mls @ 15 mls/hr IV .[id number] PRN PRN Reason: Additional IVPB Infusion Dextrose (Dextrose 10%-Water) 250 mls @ 999 mls/hr IV .Q16M PRN; Protocol PRN Reason: HYPOGLYCEMIA Insulin Human Lispro (Humalog Kwikpen (Bkc)) 0 unit SC ACHS [facility]; Protocol Last Admin: 11/09/19 16:28 Dose: 2 u Documented by: Lisinopril (Zestril) 20 mg PO DAILY [facility] Last Admin: 11/09/19 09:12 Dose: 20 mg Documented by: Metformin HCl (Glucophage) 500 mg PO BIDCM [facility] Last Admin: 11/09/19 16:28 Dose: 500 mg Documented by: Nutritional Formula (Lactose Free) (Glucerna Shake) 120 ml PO TIDCM [facility] Last Admin: 11/09/19 16:30 Dose: Not Given Documented by: Ondansetron HCl (Zofran) 4 mg IV Q8H PRN PRN PRN Reason: NAUSEA/VOMITING Sodium Chloride () 10 - 40 ml IV UD PRN PRN Reason: SALINE FLUSH Last Admin: 11/08/19 05:27 Dose: 20 ml Documented by: Medical Necessity - Tobacco Use Smoking Status: Former smoker Assessment/Plan All Active Problems (Last Reviewed 11/08/19 @ 01:[address] Jacob Landeros MD) Hypothermia (Acute) Acute encephalopathy (Acute) Bradycardia (Acute) Discitis of cervical region (Resolved) #1 hypothermia-etiology unclear, continue to monitor patient, patient appears stable #2 type 2 diabetes-blood sugars will be monitored and she will receive sliding scale insulin coverage, again I placed the patient on metformin today, we will observe her for effect of the medication #3 essential hypertension-patient's blood pressure was elevated today, I added on Norvasc 5 mg to her current medications. It appears the patient may have been on Apresoline at home but this is a 3 times a day medication. #4 stage III chronic kidney disease secondary to type 2 diabetes #5 acute encephalopathy-etiology unclear-resolving at this time #6 anemia-type unknown, patient's iron level was high, she will need to monitor this as an outpatient with her PCP Code Visit Inpatient E&M: 62692 Subs Hosp L2
[2019-11-09] MEDS: Atorvastatin Calcium 80 MG Tablet PO (22:08)
[2019-11-09 22:16] LABS: Bedside Glucose 111 mg/dL (70-110)
[2019-11-10 04:07] VITALS: BP 152/71; PULSE 83; RESP 16; TEMP 36.8; O2SAT 97
[2019-11-10 06:51] LABS: Bedside Glucose 123 mg/dL (70-110)
[2019-11-10 08:00] VITALS: BP 179/66; PULSE 94; RESP 18; TEMP 36.7; O2SAT 97
[2019-11-10 08:18] VITALS: O2SAT 95
[2019-11-10] MEDS: metFORMIN HCl 500 MG Tablet PO (08:45)
[2019-11-10] MEDS: Carvedilol 12.5 MG Tablet PO (08:45)
[2019-11-10] MEDS: Aspirin 81 MG TAB.CHEW PO (08:45)
[2019-11-10] MEDS: Lisinopril 20 MG Tablet PO (08:46)
[2019-11-10] MEDS: amLODIPine 10 MG Tablet PO (08:46)
[2019-11-10] MEDS: Enoxaparin 40 MG/0.4 ML Syringe SC (08:46)
[2019-11-10 09:40] VITALS: RESP 18
--- NOTE | 2019-11-10 10:19 | CASEMGMT ---
Social Work Note SW received message from Zev with [facility] stating she attempted to call pt multiple times back in June with no answer and pt never returned phone call. SW in to speak with pt. SW introduced self and role at [facility]. Pt is alert and orientated x3. Pt states I have everything I need at home. LU asked pt about [facility] and how last time pt was at [facility] a CCN referral was made but pt never answered. SW asked pt if this worker could make [facility] referral again for pt to get an extra set of eyes in the home for pt. Pt agreeable to CCN referral. SW informed pt that this worker can make CCN referral but pt will need to answer the phone or at least call them back. SW confirmed with pt that pt's cell phone number that it listed is accurate. Pt states I will answer the phone if I want to. SW informed pt that she has the right to not answer her phone but if she wants to stay in her home and get extra help in the home she will need to answer the phone when [facility] calls. Pt states well you are irritating me now, you can leave. SW informed pt that this worker is just trying to make sure pt is safe at home and has everything she needs. Pt states I do have everything I need. SW left room. LU placed a call to Zev with [facility] and provided referral. LU ordered [employer] consult. Hawa Cash WIND TUNNEL TECHNICIAN, AIRCRAFT STRUCTURAL DESIGN ENGINEER
--- NOTE | 2019-11-10 11:12 | NURSING ---
primary nurse notified of elevated bp (171/77)
[2019-11-10] MEDS: Insulin Lispro 100 UNIT/ML INSULN.PEN SC (11:20)
[2019-11-10 11:31] LABS: Bedside Glucose 199 mg/dL (70-110)
--- NOTE | 2019-11-10 11:50 | PCM.DC ---
- Discharge Diagnoses Current Active Problems: Current Active and Chronic Problems (Last Reviewed 11/08/19 @ 01:[address] Jacob Landeros MD) Hypothermia (Acute) Acute encephalopathy (Acute) Bradycardia (Acute) You will use the following diet at home:: Calorie/Carbohydrate Controlled (specify 1200, 1400, etc) - 1800 mikel Your food should be the consistency of: Regular Your liquids should be the consistency of: Regular/Thin Discharge Activity: Return to Normal Activity Weight Bearing Status: Full weight bearing Allergies/Adverse Reactions: Allergies ceftriaxone Allergy (Severe, Verified 11/07/19 18:45) Rash vancomycin Allergy (Severe, Verified 11/07/19 18:45) Rash Penicillins Allergy (Verified 11/07/19 18:45) Swelling oxycodone HCl [From Percocet] Adverse Reaction (Verified 11/07/19 18:45) Itching Medications to take at Discharge atorvastatin 80 mg tablet 80 mg PO QHS #90 tab 09/21/19 lanolin-mineral oil 1 applic TOPICAL DAILY PRN #500 ml 09/21/19 Acetaminophen [Acetaminophen Extra Strength] 500 mg PO PRN PRN 11/08/19 Aspirin 81 mg PO DAILY@0800 11/08/19 Blood Sugar Diagnostic [Contour Test Strip] See Rx Instructions .ROUTE .MEDSUPPLY 11/08/19 Blood Sugar Diagnostic [Onetouch Ultra Blue Test Strp] See Rx Instructions .ROUTE .MEDSUPPLY 11/08/19 Blood-Glucose Meter [Contour Next One] See Rx Instructions .ROUTE .MEDSUPPLY 11/08/19 Blood-Glucose Meter [Contour] See Rx Instructions .ROUTE .MEDSUPPLY 11/08/19 Carvedilol 12.5 mg PO BID 11/08/19 Ertugliflozin Pidolate [Steglatro] 15 mg PO DAILY 11/08/19 Ipratropium/Albuterol Sulfate [Duoneb] 3 ml INHALATION Q6HWA.RT 11/08/19 Lancets See Rx Instructions .ROUTE .MEDSUPPLY 11/08/19 Lancets See Rx Instructions .ROUTE .MEDSUPPLY 11/08/19 Triamcinolone Acetonide 1 applic TOPICAL BID 11/08/19 Amlodipine [Norvasc] 10 mg PO DAILY #30 tab 11/10/19 Aspirin [Aspirin, Baby] 81 mg PO DAILY@0800 tab.chew 11/10/19 Lisinopril [Zestril] 20 mg PO DAILY #30 tab 11/10/19 metFORMIN HCl [Glucophage] 500 mg PO BIDCM #60 tab 11/10/19 The following prescriptions were given: metFORMIN HCl [Glucophage] 500 mg PO BIDCM #60 tab Transmission Status: Pending to [id number] Amlodipine [Norvasc] 10 mg PO DAILY #30 tab Transmission Status: Pending to [id number] [facility] Lisinopril [Zestril] 20 mg PO DAILY #30 tab Transmission Status: Pending to [facility] Primary Care Physician: Prince Cummins DO [Primary Care Provider] - Please follow up with your Primary Care Physician in: in one week Test Results: Test results from this visit will be discussed in further detail at your follow-up appointment, if applicable.
[2019-11-10 13:35] VITALS: BP 162/55; PULSE 89; RESP 18; TEMP 37.5; O2SAT 98
--- NOTE | 2019-11-10 14:17 | CASEMGMT ---
Social Work Note Pt is discharging home today. LU placed a call to Shannon Castrejon at [facility] and left message informing her that pt will be discharged home today. LU faxed discharge paperwork to Shannon at [facility]. LU placed a call to Zev with [facility] and updated her that pt will be discharged home today. Zev states she will call pt within the next couple days. LU placed a call to [facility] and left message with Allie updating her that pt discharged home today. Hawa Cash SPANISH LINGUIST, WATER QUALITY SPECIALIST
--- NOTE | 2019-11-11 14:35 | CASEMGMT ---
DC DATE: 11.10.2019 DC DISPOSITION: Home with [facility] DC DIAGNOSIS: Hypothermia, acute encephalopathy LACE/STRATA: 17/ F/U APPTS MADE PRIOR TO DC: yes Call to [facility]. [facility] Nurse is seeing pt today. No further information needed. Beto CARTERN RN ACM
--- NOTE | 2019-11-12 18:28 | PCM.DC.SUM ---
Discharge Date and Diagnosis Date of Admission: 11/07/19 Date of Discharge: 11/10/19 - Primary Discharge Diagnosis #1 hypothermia-etiology unclear #2 type 2 diabetes \ #3 essential hypertension #4 stage III chronic kidney disease secondary to type 2 diabetes #5 acute encephalopathy-etiology unclear #6 anemia-type unknown - Secondary Discharge Diagnosis Chronic Problems (Last Reviewed 11/08/19 @ 01:[address] Jacob Landeros MD) Debility (Chronic) Asthma exacerbation (Chronic) Elevated liver enzymes (Chronic) Diabetes (Chronic) Rheumatoid arthritis (Chronic) Type II diabetes mellitus (Chronic) Hypertension (Chronic) Hospital Course and Treatment Operations: None Procedures: 2-D Echocardiogram Summary of Care Provided: The patient is a 64 year old F was seen in the emergency room at [facility] after being brought in by her family due to an altered level of consciousness. Patient was lethargic and laying in bed at home. Patient was found to be hypothermic in the emergency room, she was placed on a Prashant hugger for rewarming, patient's heart rate was bradycardic, patient was admitted to ICU and seen in consultation by critical care. Patient was not felt to be infected, her temperature stabilized overnight and she remained mildly confused but her mentation improved. Echocardiogram was performed which showed a normal EF and no significant valvular abnormality. Patient was transferred out to a medical floor, her blood sugars were controlled with oral medication only, it was felt that the patient should not be on insulin at home due to the fact her granddaughter takes care of her and she is not able to participate in checking her sugars. Patient's blood pressure medications were adjusted during her hospital stay. On 11/10/2019, patient was seen and examined: On examination she appeared in good health and spirits. Vital signs as documented. Skin warm and dry and without overt rashes. Neck without JVD. Lungs clear. Heart exam notable for regular rhythm, normal sounds and absence of murmurs, rubs or gallops. Abdomen unremarkable and without evidence of organomegaly, masses, or abdominal aortic enlargement. Extremities nonedematous. Neuro: Cranial nerves II through XII are grossly intact, no focal motor deficits were noted, sensation to light touch and pinprick is intact. Psych: Patient is alert and oriented x3, she does not appear anxious or depressed On 11/10/2019, patient was seen and examined and felt to be in stable condition for discharge home - Physical Exam Vitals/I&O's: Vital Signs Temp Pulse Resp BP Pulse Ox 99.5 F H 89 18 162/55 H 98 11/10/19 13:35 11/10/19 13:35 11/10/19 13:35 11/10/19 13:35 11/10/19 13:35 Oxygen Flow Rate (L/min) 97 Oxygen Delivery Method Room Air Weight: 80.4 kg Body Mass Index (BMI) 30.1 Finger Stick Blood Glucose 595 Intake and Output for Last 24 Hours 11/10/19 11/11/19 11/12/19 23:59 23:59 23:59 Intake Total 900 / 900 Balance 900 / 900 Discharge Activity: Return to Normal Activity Weight Bearing Status: Full weight bearing Home Medications: Medications to take at Discharge atorvastatin 80 mg tablet 80 mg PO QHS #90 tab 09/21/19 lanolin-mineral oil 1 applic TOPICAL DAILY PRN #500 ml 09/21/19 Acetaminophen [Acetaminophen Extra Strength] 500 mg PO PRN PRN 11/08/19 Aspirin 81 mg PO DAILY@0800 11/08/19 Blood Sugar Diagnostic [Contour Test Strip] See Rx Instructions .ROUTE .MEDSUPPLY 11/08/19 Blood Sugar Diagnostic [Onetouch Ultra Blue Test Strp] See Rx Instructions .ROUTE .MEDSUPPLY 11/08/19 Blood-Glucose Meter [Contour Next One] See Rx Instructions .ROUTE .MEDSUPPLY 11/08/19 Blood-Glucose Meter [Contour] See Rx Instructions .ROUTE .MEDSUPPLY 11/08/19 Carvedilol 12.5 mg PO BID 11/08/19 Ertugliflozin Pidolate [Steglatro] 15 mg PO DAILY 11/08/19 Ipratropium/Albuterol Sulfate [Duoneb] 3 ml INHALATION Q6HWA.RT 11/08/19 Lancets See Rx Instructions .ROUTE .MEDSUPPLY 11/08/19 Lancets See Rx Instructions .ROUTE .MEDSUPPLY 11/08/19 Triamcinolone Acetonide 1 applic TOPICAL BID 11/08/19 Amlodipine [Norvasc] 10 mg PO DAILY #30 tab 11/10/19 Aspirin [Aspirin, Baby] 81 mg PO DAILY@0800 tab.chew 02/26/20 Lisinopril [Zestril] 20 mg PO DAILY #30 tab 11/10/19 metFORMIN HCl [Glucophage] 500 mg PO BIDCM #60 tab 11/10/19 Following Prescrptions Were Given to Patient: metFORMIN HCl [Glucophage] 500 mg PO BIDCM #60 tab Transmission Status: [facility] Amlodipine [Norvasc] 10 mg PO DAILY #30 tab Transmission Status: Re[facility] by [facility] Lisinopril [Zestril] 20 mg PO DAILY #30 tab Transmission Status: [facility] Primary Care Physician: Prince Cummins DO [Primary Care Provider] - Please follow up with your Primary Care Physician in: in one week Please Follow Up With: Prince Cummins DO When: 1 week Disposition: Home Minutes spent on discharge:: 33 Patient Condition:: Stable Medical Necessity - Tobacco Use Smoking Status: Former smoker Meaningful Use Info Meaningful Use Diagnoses (Choose all that apply): None applicable Code Visit Inpatient E&M: 95924 Disch Hosp
== END 2019-11-10 14:19 | disposition home health service (06) | DRG 815 ==
LOC: ED 21:35 → ICU 22:29 → MS3 11-09 17:33
PROVIDERS: Admitting Provider Hospitalist; Emergency Provider Emergency Medicine; PCP Family Medicine; Visit Provider Internal Medicine
DX: T68.XXXA Hypothermia, initial encounter (principal); G93.40 Encephalopathy, unspecified; R00.1 Bradycardia, unspecified; N17.9 Acute kidney failure, unspecified; N18.3 Chronic kidney disease, stage 3 (moderate); I12.9 Hypertensive chronic kidney disease with stage 1 through stage 4 chronic kidney disease, or unspecified chronic kidney disease; E11.22 Type 2 diabetes mellitus with diabetic chronic kidney disease; M06.9 Rheumatoid arthritis, unspecified; J45.901 Unspecified asthma with (acute) exacerbation; E11.649 Type 2 diabetes mellitus with hypoglycemia without coma; R74.8 Abnormal levels of other serum enzymes; D64.9 Anemia, unspecified; Z79.4 Long term (current) use of insulin; Z87.891 Personal history of nicotine dependence; Z79.82 Long term (current) use of aspirin; Z86.73 Personal history of transient ischemic attack (TIA), and cerebral infarction without residual deficits; R53.1 Weakness; I65.21 Occlusion and stenosis of right carotid artery
CPT/HCPCS: 51702; 70450; 71045; 80048; 80053; 80076; 80307; 80320; 81001; 82962; 83540; 83550; 83605; 84443; 84484; 85025; 87040; 87633; 87804; 93005; 93306; 96360; 97161; 99285; J7030; A4216; G0480; J7799

== ENCOUNTER → 2019-11-23 10:12 | Outpatient (CLI) | payer MEDICAID, SELFPAY ==
[2019-11-16 11:06] VITALS: BMI 30.1
--- NOTE | 2019-11-23 10:14 | CDU_ITS ---
Reason For Study: syncope Rt. Velocities/BP Lt. Velocities/BP Prox CCA 61.7/12.1 cm/sec. Prox CCA 73.4/12.1 cm/sec. Mid CCA 56.5/12.1 cm/sec. Mid CCA 56.5/12.1 cm/sec. Dist CCA 59.1/14.7 cm/sec. Dist CCA 53.9/13.4 cm/sec. Prox ICA 59.1/14.7 cm/sec. Prox ICA 44.3/12.4 cm/sec. Mid ICA 53.9/13.4 cm/sec. Mid ICA 71.7/22.3 cm/sec. Dist ICA 60.4/17.3 cm/sec. Dist ICA 79.4/25.6 cm/sec. Rt. ICA/CCA = 1.1. Lt. ICA/CCA = 1.4. Prox ECA 113.8/12.1 cm/sec. Prox ECA 149.9/11.6 cm/sec. Rt. Vert. 61.7/12.1 cm/sec. Lt. Vert. 53.1/10.2 cm/sec. Right Extracranial There is intimal thickening but no significant atherosclerotic plaque noted in the right common carotid artery. There is heterogeneous, irregular atherosclerotic plaque noted in the right internal carotid artery. There is intimal thickening but no significant atherosclerotic plaque noted in the right external carotid artery. Antegrade flow is noted in the right vertebral artery. Left Extracranial There is intimal thickening but no significant atherosclerotic plaque noted in the left common carotid artery. There is heterogeneous, irregular atherosclerotic plaque noted in the left internal carotid artery. There is heterogeneous, irregular atherosclerotic plaque noted in the left external carotid artery. Antegrade flow is noted in the left vertebral artery. Procedure Carotid Duplex [id number]. The exam was diagnostic. Exam performed in department. Interpretation Summary Mild (<50%) stenosis right extracranial internal carotid. Mild (<50%) stenosis left extracranial internal carotid. Flow within the vertebral arteries is antegrade bilaterally. Ordering Physician: Prince Cummins Performed By: Scooter Pulliam RVT
== END ==
PROVIDERS: PCP Family Medicine; Referring Provider Family Medicine; Visit Provider Family Medicine
DX: G93.40 Encephalopathy, unspecified (principal)
CPT/HCPCS: 93880

== ENCOUNTER → 2019-12-29 11:55 | Outpatient (CLI) | payer MEDICAID, SELFPAY ==
[2019-12-28 13:44] VITALS: BMI 30.1
--- NOTE | 2019-12-29 11:57 | RAD_ITS ---
STUDY: X-RAY - RIGHT KNEE REASON FOR EXAM: Female, 64 years old. Right knee pain TECHNIQUE: 4 view(s) of the knee. COMPARISON: Comparison is made with prior examination dated April 27, 2015. FINDINGS: Normal visualized distal femur. Normal visualized proximal tibia and fibula. Normal proximal tibiofibular articulation. There is severe degenerative arthrosis of the medial femorotibial compartment with severe joint space narrowing. Normal lateral femorotibial compartment. There is severe degenerative arthrosis of the patellofemoral articulation. There are atherosclerotic calcifications. RAD/Knee 4 or More Views IMPRESSION: Degenerative arthrosis. Electronically Signed: Tacho Russell, at 12:30 EDT , Service support ,
== END ==
PROVIDERS: PCP Family Medicine; Referring Provider Family Medicine; Visit Provider Family Medicine
DX: M06.9 Rheumatoid arthritis, unspecified (principal); M17.11 Unilateral primary osteoarthritis, right knee
CPT/HCPCS: 73564

== ENCOUNTER → 2020-03-08 07:52 | Outpatient (CLI) | payer MEDICAID, SELFPAY ==
[2020-02-29 16:33] VITALS: BMI 30.1
--- NOTE | 2020-03-08 07:56 | US_ITS ---
STUDY: ABDOMINAL ULTRASOUND - RIGHT UPPER QUADRANT REASON FOR VISIT: Female, 64 years old RUQ PAIN X 3 MONTHS TECHNIQUE: Ultrasound evaluation of the right upper quadrant was performed with real-time and static hager-scale imaging. TECHNICAL QUALITY: Adequate. COMPARISON: None. FINDINGS: Liver: The liver measures 16.2 cm. There is normal echogenicity of the liver. The bile ducts are within normal limits. There is hepatic color flow. The direction of portal flow is hepatopetal. There is no demonstrated mass lesion. Gallbladder: Normal distended gallbladder. The gallbladder wall measures 2.1 mm. There is a negative sonographic Martinez''s sign. There is no pericholecystic fluid. There are no gallstones, there is a small nonshadowing 6 mm polyp. Common Bile Duct (C.B.D.): The common bile duct measures 2.2 mm. Pancreas: Normal size of the head, body and tail of the pancreas. There is normal echogenicity of the pancreas. There is no demonstrated pancreatic mass or cyst. Pancreas is heterogeneous Right Kidney: Normal size of the right kidney. The right kidney measures 11.9 x 5.5 x 4.7 cm. Normal renal cortex. The right cortex measures 1.7 cm. There is no demonstrated renal mass or cyst. There is no right hydronephrosis. US/Liver IMPRESSION: No suspicious sonographic findings, the pancreas is heterogeneous which may be due to previous bouts of pancreatitis, there is a nonshadowing 6 mm gallbladder polyp which needs no specific follow-up Electronically Signed: Sawyer Welch MD at 8:59 EDT , Service support ,
[2020-03-08 08:37] LABS: ALB/GLOB Ratio 0.6 RATIO (0.9-2.4); AST(SGOT) 37 U/L (15-37); Alanine Aminotransfer ALT/SGPT 53 U/L (13-56); Albumin, Serum 3.2 g/dL (3.2-5.0); Alkaline Phosphatase 102 U/L (45-117); Anion Gap 6 (5-15); BUN 27 mg/dL (7-18); BUN/Creat Ratio 20.3 RATIO (10-20); Calcium,Total 9.2 mg/dL (8.5-10.1); Chloride 108 mmol/L (98-107); Creatinine, Serum 1.33 mg/dL (0.55-1.02); EST Glomerular Filtration Rate 43 mL/min (>60); Est Glom Filt Rate - Afr Amer 52 mL/min (>60); Glucose 96 mg/dL (74-106); Potassium 4.5 mmol/L (3.5-5.1); Protein, Total 8.2 g/dL (6.4-8.2); Sodium Level 140 mmol/L (136-145)
== END ==
PROVIDERS: PCP Family Medicine; Referring Provider Family Medicine; Visit Provider Family Medicine
DX: R10.11 Right upper quadrant pain (principal); R74.8 Abnormal levels of other serum enzymes
CPT/HCPCS: 36415; 76705; 80053

== ENCOUNTER → 2021-07-16 13:53 | Outpatient (CLI) | payer MEDICAID, SELFPAY ==
--- NOTE | 2021-07-16 14:00 | CDU_ITS ---
Reason For Study: OCCULAR ISCHEMIC STROKE Rt. Velocities/BP Lt. Velocities/BP Prox CCA 73/10 cm/sec. Prox CCA 101/18 cm/sec. Mid CCA 71/7 cm/sec. Mid CCA 73/13 cm/sec. Dist CCA 66/11 cm/sec. Dist CCA 80/18 cm/sec. Prox ICA 120/27 cm/sec. Prox ICA 74/19 cm/sec. Mid ICA 72/18 cm/sec. Mid ICA 98/26 cm/sec. Dist ICA 103/25 cm/sec. Dist ICA 120/30 cm/sec. Rt. ICA/CCA = 1.7. Lt. ICA/CCA = 1.6. Prox ECA 184/18 cm/sec. Prox ECA 348/20 cm/sec. Rt. Vert. 80/13 cm/sec. Lt. Vert. 58/12 cm/sec. Right Extracranial There is homogeneous, smooth atherosclerotic plaque noted in the right common carotid artery. There is heterogeneous, irregular atherosclerotic plaque noted in the right internal carotid artery. There is heterogeneous, irregular atherosclerotic plaque noted in the right external carotid artery. Antegrade flow is noted in the right vertebral artery. There is homogeneous, smooth atherosclerotic plaque noted in the right bulb. There is heterogeneous, irregular atherosclerotic plaque noted in the right bulb. Left Extracranial There is homogeneous, smooth atherosclerotic plaque noted in the left common carotid artery. There is heterogeneous, irregular atherosclerotic plaque noted in the left internal carotid artery. There is heterogeneous, irregular atherosclerotic plaque noted in the left external carotid artery. Antegrade flow is noted in the left vertebral artery. There is heterogeneous, irregular atherosclerotic plaque noted in the left bulb. Procedure Carotid Duplex [id number]. Exam performed in department. VL/Carotid Duplex Ultrasound Interpretation Summary Irregular calcific plaque at the proximal right internal carotid artery with le ss than 50% stenosis Less than 50% stenosis right external carotid artery Irregular calcific plaque of the proximal left internal carotid artery with les s than 50% stenosis Greater than 50% stenosis left external carotid artery Patent and antegrade vertebral arteries bilaterally Progression of disease in the left external carotid artery is noted from a prev ious examination of November 23, 2019 Ordering Physician: Tomasz Ignacio Referring Physician: FRANCE LAMAR Performed By: Yvonne Kim RDCS, RVT
== END ==
PROVIDERS: PCP Family Medicine; Referring Provider Ophthalmology; Visit Provider Ophthalmology
DX: H35.82 Retinal ischemia (principal); I65.23 Occlusion and stenosis of bilateral carotid arteries
CPT/HCPCS: 93880

== ENCOUNTER 2021-08-27 17:24 | Inpatient (IN) | payer MEDICAID, SELFPAY ==
[2021-08-27] VITALS (8 sets, daily range): BP systolic 108–200; BP diastolic 73–94; PULSE 80–99; RESP 13–21; TEMP 36.2–37.1; O2SAT 97–100; BMI 30.9
--- NOTE | 2021-08-27 17:30 | RAD_ITS ---
STUDY: X-RAY CHEST REASON FOR EXAM: Female, 66 years old. Technologist Notes CHEST PRESSURE, SOB, VOMITING, SORE LEGS. chest pain TECHNIQUE: XR Chest 1 View COMPARISON: 2.23.20 FINDINGS: There is no demonstrated pleural abnormality. Right lower lobe pneumonia. Normal size heart. Normal mediastinum and gaye. Normal visualized pulmonary arteries. There is atherosclerotic calcification of the aortic arch with tortuosity. There are diffuse degenerative changes of the visualized thoracic spine. There is degenerative osteoarthritis of the bilateral shoulders. There is no demonstrated abnormality of the visualized soft tissue structures of the upper abdomen. RAD/Chest 1 View (Portable) IMPRESSION: Right lower lobe pneumonia. Electronically Signed: Mckinley Pollock MD at 20:03 EST , Service support ,
--- NOTE | 2021-08-27 17:30 | EKG12_ITS ---
Test Reason : DIZZY Blood Pressure : / mmHG Vent. Rate : 082 BPM Atrial Rate : 082 BPM P-R Int : 162 ms QRS Dur : 082 ms QT Int : 396 ms P-R-T Axes : 068 093 -25 degrees QTc Int : 462 ms Normal sinus rhythm Nonspecific ST and T wave abnormality Abnormal ECG Confirmed by DANYEL PIZARRO, SILVESTRE ([id number]), publishing editor ADRIÁN BURRIS ([id number]) on 08/29/2021 11:45:13 AM Referred By: [place] Confirmed By:SILVESTRE MONTAÑO MD
[2021-08-27 18:33] LABS: Absolute Lymphocyte Count 1.83 X10^3/uL (0.83-4.51); Absolute Neutrophil Count 6.1 X10^3/uL (2.0-7.7); Basophil# 0.04 X10^3/uL; Basophil% 0.5 % (0-1); Eosinophil# 0.13 X10^3/uL; Eosinophils% 1.5 % (0-5); Hematocrit 22.9 % (37-47); Hemoglobin 7.1 g/dL (12.0-15.0); Lymphocyte # 1.83 X10^3/ul (0.83-4.51); Lymphocyte % 20.7 % (19-41); Mean Corpuscular Hgb 28.5 pg (27.0-32.0); Mean Platelet Vol. 9.2 fl (6.2-12.0); Monocyte# 0.66 X10^3/uL; Monocyte% 7.5 % (0-10); NRBC Flagged by Analyzer 0 % (0-5); Neutrophil # 6.11 X10^3/uL (2.7-7.7); Neutrophil % 69.1 % (47-70); Platelet Count 278 K/mm3 (150-450); RBC Distribution Width CV 13.4 % (11.6-14.6); RBC Distribution Width SD 44.1 fl (35.1-43.9); Red Blood Count 2.49 M/mm3 (4.2-5.4); White Blood Count 8.8 K/mm3 (4.4-11.0)
[2021-08-27 18:54] LABS: Anion Gap 4 (5-15); BUN 67 mg/dL (7-18); BUN/Creat Ratio 11.4 RATIO (10-20); Calcium,Total 8.8 mg/dL (8.5-10.1); Chloride 112 mmol/L (98-107); Creatinine, Serum 5.88 mg/dL (0.55-1.02); EST Glomerular Filtration Rate 8 mL/min (>60); Est Glom Filt Rate - Afr Amer 9 mL/min (>60); Estimated Creatinine Clearance 8.35 ml/min; Glucose 89 mg/dL (74-106); Sodium Level 140 mmol/L (136-145); Troponin-I HS 400 pg/mL (3.0-54.0)
[2021-08-27] MEDS: Ipratropium/Albuterol Sulfate 3 ML AMPUL.NEB INHALATION (19:49)
--- NOTE | 2021-08-27 20:17 | EDS_ITS ---
HPI History of Present Illness Chief Complaint: Chest Pain Informant: patient Narrative Narrative: Patient's reported chief complaint was chest pain. However, when I talked to her she states that about 8 or 9 days ago she started with a cough. She does get soreness in her chest with coughing. She does get notable dyspnea on exertion. She states she is getting short of breath going up steps but it does not produce chest pain. She is now also bringing up green sputum. She has had subjective fevers but has not taken her temperature. She states she cannot taste or smell much. But she is also not eating or drinking because she has vomiting anytime she tries to. She has decreased urination but no dysuria. She also has myalgias. She did not get Covid vaccinations but also generally stays at home. Her symptoms did start after she was babysitting her granddaughter who evidently had a cold. No further information on the results of that are available. She has been taking her medications as much as possible. She also reports a history of anemia but does not know why. She states she had a transfusion a couple years ago. She denies ever having a GI bleed. She has not had black or bloody stools. [facility] Medical History (Updated 08/27/21 @ 21:[address] Isaiah Davies MD) Asthma Chest pain Diabetes Hypertension Rheumatoid arthritis SOB (shortness of breath) Stroke Home Medications amlodipine 5 mg tablet See Rx Instructions .ROUTE .COMPLEX #90 tab 11/22/20 [Rx Last Taken Unknown] ipratropium 0.5 mg-albuterol 3 mg (2.5 mg base)/3 mL nebulization soln 3 ml INHALATION Q6HWA.RT PRN #90 ml 11/23/20 [Rx Last Taken Unknown] carvedilol 12.5 mg tablet 12.5 mg PO BID 11/28/20 [History Last Taken Unknown] hydrochlorothiazide 12.5 mg tablet 12.5 mg PO DAILY #90 tab 05/07/21 [Rx Last Taken Unknown] lisinopril 20 mg tablet 20 mg PO DAILY #90 tab 05/07/21 [Rx Last Taken Unknown] lanolin-mineral oil lotion 1 applic TOPICAL DAILY PRN #500 ml 05/25/21 [Rx Last Taken Unknown] Allergy/AdvReac Type Severity Reaction Status Date / Time ceftriaxone Allergy Severe Rash Verified 08/27/21 17:25 vancomycin Allergy Severe Rash Verified 08/27/21 17:25 Penicillins Allergy Swelling Verified 08/27/21 17:25 oxycodone HCl [From Percocet] AdvReac Itching Verified 08/27/21 17:25 Family History Mother Hypertension Emphysema/COPD Sister Hypertension Surgical History H/O: hysterectomy History of eye surgery knee scope Social History Smoking Status: Former smoker alcohol intake: current details: 1 per week substance use type: does not use what type of physical activity do you participate in: none ROS ROS ED Constitutional Constitutional ED: Reports chills, fever(s) and subjective Eyes Eyes: Denies blurry vision, change in vision or diplopia ENT ENT ED: Reports rhinorrhea; Denies ear pain or sore throat Cardiovascular Cardiovascular: Denies chest pain or palpitations Respiratory/Chest Respiratory/Chest: Reports cough, dyspnea, dyspnea on exertion and sputum Gastrointestinal Gastrointestinal: Reports nausea and vomiting; Denies constipation, diarrhea or melena Genitourinary Genitourinary ED: Denies dysuria Musculoskeletal Musculoskeletal: Reports myalgias; Denies back pain Integumentary Denies rash Neurologic Neurologic: Denies headache(s), paresthesias or weakness Endocrine Endocrinology: Denies polydipsia or polyuria Allergic/Immunologic Allergic/Immunologic ED: Denies mouth swelling or urticaria EXAM Physical Exam Const Vital Signs: 08/27/21 17:26 08/27/21 19:24 08/27/21 19:50 Temperature 97.2 F L 98.8 F Temperature Source Temporal Temporal Pulse Rate 84 80 87 Respiratory Rate 16 21 H 13 Respiratory Effort Normal Non-Labored Respiratory Pattern Normal Blood Pressure 181/85 H 200/82 H Blood Pressure Mean 117 121 Pulse Ox 100 99 Oxygen Delivery Method Room Air Room Air 08/27/21 21:00 08/27/21 21:22 08/27/21 21:30 Temperature 98.1 F 98.1 F Temperature Source Temporal Temporal Pulse Rate 99 99 Respiratory Rate 19 H 19 H Respiratory Effort Respiratory Pattern Blood Pressure 177/73 H 177/73 H Blood Pressure Mean 107 107 Pulse Ox 100 98 100 Oxygen Delivery Method Room Air Room Air Room Air Positive well nourished and well developed General Appearance ED: well developed, NAD and pallor HEENT Negative for trauma or tenderness Eyes General Eye ED: Yes pale conjunctiva Neck no JVD Chest Wall inspection of chest normal Resp normal respiratory effort Resp Narrative: Patient has few expiratory wheezes and mild basilar rhonchi. No rales. However, her saturations were normal sitting in bed on room air. She does not look acutely dyspneic while sitting. Auscultation: rhonchi and wheezes Cardio regular rate and regular rhythm GI normal to inspection, nondistended, normoactive bowel sounds and non-tender Palpation: soft Back/Spine no CVA tenderness Extremity normal to inspection General Extremety ED: Negative for tenderness Neuro oriented x3 Sensorium / Orientation: alert Psych mental status grossly normal Skin no rashes or lesions noted General Skin Exam: pallor MDM MDM MDM Narrative Medical decision making narrative: Patient's labs show worsening anemia. She denies any black or bloody stools at all though. She states she has had transfusions for chronic anemia but it has been about 2 years. She does not know why she is anemic. Electrolytes show a creatinine of 5.88 which is an acute kidney injury. This is much higher than normal. This is likely due to her inability to drink due to vomiting over the last week. Troponin is also elevated at 400. Chest x-ray hints of a right lower lobe pneumonia. This may be more prominent after hydration. She was given antibiotics. Cultures and lactate are sent. I discussed case with the hospitalist. Patient will be admitted. He noted that she was complaining of more abdominal pain. I went back and saw her again. She was complaining more epigastric and then some right lower quadrant area pain. She states this is been off and on but seem to be worse after she had vomiting. We will order a CAT scan at this time. We will not use contrast due to her acute kidney injury. This is pending at this time. Lab Data Attestation: I reviewed the patient's lab results. Labs: Laboratory Results - last 24 hr 08/27/21 08/27/21 08/27/21 18:20 18:20 20:00 WBC 8.8 RBC 2.49 L Hgb 7.1 L Hct 22.9 L MCV 92.0 MCH 28.5 MCHC 31.0 L RDW Std Deviation 44.1 H RDW Coeff of Dottie 13.4 Plt Count 278 MPV 9.2 Immature Gran % (Auto) 0.700 Neut % (Auto) 69.1 Lymph % (Auto) 20.7 Christian % (Auto) 7.5 Eos % (Auto) 1.5 Baso % (Auto) 0.5 Absolute Neuts (auto) 6.1 Absolute Lymphs (auto) 1.83 Nucleated RBC % 0 Sodium 140 Potassium 5.0 Chloride 112 H Carbon Dioxide 24.0 Anion Gap 4 L BUN 67 H Creatinine 5.88 H Estim Creat Clear Calc 8.35 Est GFR (MDRD) Af Amer 9 L Est GFR (MDRD) Non-Af 8 L BUN/Creatinine Ratio 11.4 Glucose 89 Lactic Acid Calcium 8.8 Troponin I High Sens 400 H* Blood Type A POSITIVE Antibody Screen NEGATIVE 08/27/21 21:20 WBC RBC Hgb Hct MCV MCH MCHC RDW Std Deviation RDW Coeff of Dottie Plt Count MPV Immature Gran % (Auto) Neut % (Auto) Lymph % (Auto) Christian % (Auto) Eos % (Auto) Baso % (Auto) Absolute Neuts (auto) Absolute Lymphs (auto) Nucleated RBC % Sodium Potassium Chloride Carbon Dioxide Anion Gap BUN Creatinine Estim Creat Clear Calc Est GFR (MDRD) Af Amer Est GFR (MDRD) Non-Af BUN/Creatinine Ratio Glucose Lactic Acid 1.4 Calcium Troponin I High Sens Blood Type Antibody Screen Radiography Diagnostic Testing: Clinical Impression(s) from Imaging Studies Chest X-Ray 08/27/21 17:30 IMPRESSION: Right lower lobe pneumonia. Electronically Signed: Mckinley Pollock MD at 20:03 EST , Service support , Abdomen/Pelvis CT 08/27/21 21:35 EKG Initial EKG: Comments: EKG done for dyspnea and read by me shows normal sinus rhythm with a rate of 82. There is mild baseline variation but no sign of ST elevation or depression. There is slight T wave inversion in 2 3 aVF. No ventricular ectopy. PA interval, QRS duration and QTc are normal. Discharge Plan Dx/Rx/DC Orders Clinical Impression: Community acquired pneumonia, Intractable nausea and vomiting, Acute kidney injury, Dehydration Disposition Disposition: Acute Care Hospital [facility] Discharge Date/Time: 08/27/21 22:25
--- NOTE | 2021-08-27 21:20 | HP.PCM_ITS ---
HPI - General General Date of Admission: 08/27/21 HPI Narrative NATALI KINSEY, is a 66 F who presents to the emergency room with shortness of breath. Onset of symptoms began 8 days ago and patient complains of coughing with green sputum along with muscle aches and soreness. The patient does not have a history of Covid vaccination and tested negative for rapid Covid in the emergency room and a PCR test was ordered and is pending at this time. The patient has a significant past medical history of anemia and was transfused several years ago but she does not know why she had anemia. In the emergency room she was diagnosed with acute renal failure with a creatinine of 5.88, an emia with hemoglobin 7.1 and also elevated troponin of 400 (may be falsely elevated due to renal failure), chest x-ray reveals a right lower lobe infiltrative pneumonia and x-ray is not consistent with Covid pneumonia. Since arriving in the hospital patient has improved in her respiratory status and feeling a little bit more comfortable and is able to now communicate that she has had also some abdominal pain since this began 8 days ago which she was not able to express earlier when she arrived. I communicated this to the emergency room physician who will order a CT scan of her abdomen without contrast. When asked if the patient had previous kidney problems she stated she may have had some but she was vague about this. She will be admitted and treated for community-acquired pneumonia and hydrated and monitor her renal function and CT scan of abdomen is pending. We will type and screen and consider transfusion in the morning if her blood count worsens. [facility] Medical History (Updated 08/27/21 @ 21:[address] Isaiah Davies MD) Asthma Chest pain Diabetes Hypertension Rheumatoid arthritis SOB (shortness of breath) Stroke Home Medications amlodipine 5 mg tablet See Rx Instructions .ROUTE .COMPLEX #90 tab 11/22/20 [Rx Last Taken Unknown] ipratropium 0.5 mg-albuterol 3 mg (2.5 mg base)/3 mL nebulization soln 3 ml INHALATION Q6HWA.RT PRN #90 ml 11/23/20 [Rx Last Taken Unknown] carvedilol 12.5 mg tablet 12.5 mg PO BID 11/28/20 [History Last Taken Unknown] hydrochlorothiazide 12.5 mg tablet 12.5 mg PO DAILY #90 tab 05/07/21 [Rx Last Taken Unknown] lisinopril 20 mg tablet 20 mg PO DAILY #90 tab 05/07/21 [Rx Last Taken Unknown] lanolin-mineral oil lotion 1 applic TOPICAL DAILY PRN #500 ml 05/25/21 [Rx Last Taken Unknown] Allergy/AdvReac Type Severity Reaction Status Date / Time ceftriaxone Allergy Severe Rash Verified 08/27/21 17:25 vancomycin Allergy Severe Rash Verified 08/27/21 17:25 Penicillins Allergy Swelling Verified 08/27/21 17:25 oxycodone HCl [From Percocet] AdvReac Itching Verified 08/27/21 17:25 Family History Mother Hypertension Emphysema/COPD Sister Hypertension Surgical History H/O: hysterectomy History of eye surgery knee scope Social History Smoking Status: Former smoker alcohol intake: current details: 1 per week substance use type: does not use what type of physical activity do you participate in: none ROS Constitutional Constitutional: Reports chills Cardiovascular Cardiovascular: Denies chest pain at rest Respiratory/Chest Respiratory/Chest: Reports chest congestion, cough and excessive phlegm production Musculoskeletal Musculoskeletal: Reports systems reviewed and no addt'l complaints, except as documented Neurologic Neurologic: Reports systems reviewed and no addt'l complaints, except as documented Vital Signs Vital Signs Vital Signs: 08/27/21 17:26 08/27/21 19:24 08/27/21 19:50 Temperature 97.2 F L 98.8 F Temperature Source Temporal Temporal Pulse Rate 84 80 87 Respiratory Rate 16 21 H 13 Respiratory Effort Normal Non-Labored Respiratory Pattern Normal Blood Pressure 181/85 H 200/82 H Blood Pressure Mean 117 121 Pulse Ox 100 99 Oxygen Delivery Method Room Air Room Air Weight Weight: 180 lb 5.41 oz Body Mass Index (BMI) 30.9 Physical Exam Const oriented x3 and no apparent distress General Appearance: cooperative HEENT normocephalic and head/scalp atraumatic Eyes PERRL Neck supple Lymph Lymphatic: no lymphadenopathy noted Resp normal air movement Auscultation: wheezes Cardio regular rate, regular rhythm, S1 normal heart sound and S2 normal heart sound Cardio Narrative: 2/6 mendez Heart Sounds: murmur GI non-distended Palpation: tender periumbilical; Negative for rigid Extremity Negative for no clubbing, cyanosis or edema Neuro CN's II-XII intact bilaterally Results Lab / Micro Data Result Diagrams: 08/27/21 18:20 08/27/21 18:20 Labs: Laboratory Results - last 24 hr 08/27/21 18:20: WBC 8.8, RBC 2.49 L, Hgb 7.1 L, Hct 22.9 L, MCV 92.0, MCH 28.5, MCHC 31.0 L, RDW Std Deviation 44.1 H, RDW Coeff of Dottie 13.4, Plt Count 278, MPV 9.2, Immature Gran % (Auto) 0.700, Neut % (Auto) 69.1, Lymph % (Auto) 20.7, [place] % (Auto) 7.5, Eos % (Auto) 1.5, Baso % (Auto) 0.5, Absolute Neuts (auto) 6.1, Absolute Lymphs (auto) 1.83, Nucleated RBC % 0 08/27/21 18:20: Sodium 140, Potassium 5.0, Chloride 112 H, Carbon Dioxide 24.0, Anion Gap 4 L, BUN 67 H, Creatinine 5.88 H, Estim Creat Clear Calc 8.35, Est GFR (MDRD) Af Amer 9 L, Est GFR (MDRD) Non-Af 8 L, BUN/Creatinine Ratio 11.4, Glu cose 89, Calcium 8.8, Troponin I High Sens 400 H* 08/27/21 20:00: Blood Type A POSITIVE, Antibody Screen NEGATIVE Micro: Microbiology 08/27/21 19:25 Nasal Secretion SARS-CoV-2 Antigen (Rapid) - Final Radiology Impression Chest X-Ray 08/27/21 17:30 IMPRESSION: Right lower lobe pneumonia. Electronically Signed: Mckinley Pollock MD at 20:03 EST , Service support , Assessment & Plan Assessment/Plan (1) Acute kidney injury: (2) Pneumonia: (3) Hypertension: (4) Type II diabetes mellitus: QUALIFIERS: Diabetes mellitus complication status: with hyperglycemia Diabetes mellitus jail insulin use: without technician terminal and repeater use Qualified Code(s): E11.65 - Type 2 diabetes mellitus with hyperglycemia (5) Anemia: (6) Abdominal pain: PLAN: 1. Community-acquired pneumonia?admit patient to progressive care unit, Rocephin 1 g IV daily 24 hours along with azithromycin 500 mg IV every 24 hours, DuoNeb INH every 4 hours, oxygen as needed per protocol 2. Acute renal failure?IV fluids of normal saline at 125 cc/h repeat BMP in the morning 3. Hypertension?continue home routine medications along with as needed hydralazine order 10 mg IV every 6 as needed for BP greater than 160/100 4. Diabetes?continue home medications 5. Anemia?repeat CBC in the morning, ordered total iron binding capacity along with serum ferritin and iron 6. Abdominal pain CT scan pending at the time of admission will need additional medical records to ascertain if she has had a previous colonoscopy 7. DVT prophylaxis?SCDs due to renal failure Charges/Coding Visit Charges Inpatient E&M: 28046 Init Hosp L3
[2021-08-27] MEDS: levoFLOXacin IV 500 MG/100 ML BAG 100 MG IV (21:29)
[2021-08-27] MEDS: 0.9% Normal Saline 1,000 ML 999 ML IV (21:29)
--- NOTE | 2021-08-27 21:35 | CT_ITS ---
STUDY: CT Abdomen And Pelvis W/O Contrast Injection 08/27/2021 9:46 PM REASON FOR EXAM: Female, 66 years old. Abdominal pain abd pain Individualized dose optimization techniques were used for this CT. COMPARISON: None. TECHNIQUE: CT Abdomen And Pelvis W/O Contrast Injection FINDINGS: There are atherosclerotic calcifications of visualized coronary arteries. The visualized portions of the heart are within normal limits. Normal liver. Normal gallbladder and extrahepatic biliary system. Normal spleen. Normal pancreas. Normal bilateral adrenal glands. No acute findings of the right kidney. No acute findings of the left kidney. Normal visualized stomach. Normal small intestine. Stool throughout the colon. There is non-visualization of the appendix. There are calcifications of the abdominal aorta. This is consistent for atherosclerotic disease. There is no abdominal aortic aneurysm. Normal inferior vena cava. Subcentimeter mesenteric lymph nodes. Normal urinary bladder. There is absence of the uterus consistent with a prior hysterectomy. Normal abdominal wall. There are diffuse degenerative changes of the visualized lumbar spine. IMPRESSION: (NOT LISTED IN ORDER OF SIGNIFICANCE) There are no acute findings. Other findings as above. Electronically Signed: Mckinley Pollock MD at 21:47 EST , Service support , CT/Abdomen/Pelvis without Cont
[2021-08-27 21:53] LABS: Lactic Acid 1.4 mmol/L (0.4-1.9)
[2021-08-27] MEDS: Ondansetron 4 MG/2 ML Vial IV (22:04)
[2021-08-27] MEDS: Acetaminophen 325 MG Tablet 650 MG PO (22:04)
[2021-08-27 23:04] LABS: Ferritin 285 ng/mL (8-252); Iron 45 ug/dL (50-170); Iron Binding Capacity,Total 301 ug/dL (250-450)
[2021-08-27] MEDS: Carvedilol 12.5 MG Tablet PO (23:45)
[2021-08-28] VITALS (15 sets, daily range): BP systolic 138–174; BP diastolic 58–99; PULSE 70–82; RESP 16–23; TEMP 36.5–37.1; O2SAT 95–100
--- NOTE | 2021-08-28 03:04 | PCS.PANDOC ---
PANDEMIC DOCUMENTATION INITIATED: Date: 08/27/21 Time: 2199
[2021-08-28] MEDS: 0.9% Saline Lock 10 ML Syringe IV (03:10)
[2021-08-28] MEDS: 0.9% Normal Saline 1,000 ML 125 ML IV ×2 (03:12→16:40)
[2021-08-28 06:03] LABS: Absolute Lymphocyte Count 1.69 X10^3/uL (0.83-4.51); Absolute Neutrophil Count 4.3 X10^3/uL (2.0-7.7); Basophil# 0.04 X10^3/uL; Basophil% 0.6 % (0-1); Eosinophil# 0.08 X10^3/uL; Eosinophils% 1.2 % (0-5); Hematocrit 18.8 % (37-47); Hemoglobin 5.7 g/dL (12.0-15.0); Lymphocyte # 1.69 X10^3/ul (0.83-4.51); Lymphocyte % 24.8 % (19-41); Mean Corp Hgb Conc 30.3 g/dL (32-36); Mean Corpuscular Hgb 28.1 pg (27.0-32.0); Mean Corpuscular Volume 92.6 fL (81-99); Mean Platelet Vol. 8.9 fl (6.2-12.0); Monocyte# 0.62 X10^3/uL; Monocyte% 9.1 % (0-10); NRBC Flagged by Analyzer 0 % (0-5); Neutrophil # 4.33 X10^3/uL (2.7-7.7); Neutrophil % 63.6 % (47-70); POSITIVE COUNT YES; Platelet Count 215 K/mm3 (150-450); RBC Distribution Width CV 13.6 % (11.6-14.6); RBC Distribution Width SD 45.4 fl (35.1-43.9); Red Blood Count 2.03 M/mm3 (4.2-5.4); White Blood Count 6.8 K/mm3 (4.4-11.0)
[2021-08-28 06:06] LABS: Differential Indicated SCAN CRITERIA MET
[2021-08-28 06:32] LABS: Anion Gap 7 (5-15); BUN 62 mg/dL (7-18); BUN/Creat Ratio 10.9 RATIO (10-20); Calcium,Total 7.8 mg/dL (8.5-10.1); Chloride 113 mmol/L (98-107); Creatinine, Serum 5.67 mg/dL (0.55-1.02); EST Glomerular Filtration Rate 8 mL/min (>60); Est Glom Filt Rate - Afr Amer 10 mL/min (>60); Estimated Creatinine Clearance 8.66 ml/min; Glucose 84 mg/dL (74-106); Potassium 4.7 mmol/L (3.5-5.1); Sodium Level 139 mmol/L (136-145)
[2021-08-28 08:48] LABS: Urine Sodium 68 mmol/L (Not Establ.)
[2021-08-28] MEDS: hydroCHLOROthiazide 12.5mg 12.5 MG PO (08:51)
[2021-08-28] MEDS: amLODIPine 5 MG Tablet PO (08:51)
[2021-08-28] MEDS: Carvedilol 12.5 MG Tablet PO ×2 (08:51→16:34)
[2021-08-28] MEDS: Lisinopril 20 MG Tablet PO (08:51)
[2021-08-28 09:37] LABS: Troponin-I HS 685 pg/mL (3.0-54.0)
[2021-08-28] MEDS: Furosemide 20 MG/2 ML VIAL IV (10:25)
--- NOTE | 2021-08-28 10:27 | PN.HOSP_ITS ---
Subjective Subjective Patient seen and examined. She has no complaints today. She denies any dark stools, coffee ground emesis, or any blood in her stool. She denies any usage of blood thinners or over the counter pain meds. REview of systems is otherwise negative. She was receiving blood at time of review. Troponin was initially elevated on admission, at ~ 500. Repeat troponin this morning is higher at 685. Objective Data Objective Data Vital Signs: Vital Signs Temp Pulse Resp BP Pulse Ox 98.1 F 74 18 152/58 H 97 08/28/21 10:15 08/28/21 10:15 08/28/21 10:15 08/28/21 10:15 08/28/21 10:15 Oxygen Delivery Method Room Air Weight: 180 lb Body Mass Index (BMI) 30.9 Intake & Output: Intake and Output for Last 24 Hours 08/26/21 08/27/21 08/28/21 23:59 23:59 23:59 Intake Total 1600 / 1600 641.67 / 641.67 Balance 1600 / 1600 641.67 / 641.67 Lab / Micro Data Result Diagrams: 08/28/21 05:40 08/28/21 05:40 Labs: Laboratory Results - last 24 hr 08/27/21 18:20: WBC 8.8, RBC 2.49 L, Hgb 7.1 L, Hct 22.9 L, MCV 92.0, MCH 28.5, MCHC 31.0 L, RDW Std Deviation 44.1 H, RDW Coeff of Dottie 13.4, Plt Count 278, MPV 9.2, Immature Gran % (Auto) 0.700, Neut % (Auto) 69.1, Lymph % (Auto) 20.7, [place] % (Auto) 7.5, Eos % (Auto) 1.5, Baso % (Auto) 0.5, Absolute Neuts (auto) 6.1, Absolute Lymphs (auto) 1.83, Nucleated RBC % 0 08/27/21 18:20: Sodium 140, Potassium 5.0, Chloride 112 H, Carbon Dioxide 24.0, Anion Gap 4 L, BUN 67 H, Creatinine 5.88 H, Estim Creat Clear Calc 8.35, Est GFR (MDRD) Af Amer 9 L, Est GFR (MDRD) Non-Af 8 L, BUN/Creatinine Ratio 11.4, Glucose 89, Calcium 8.8, Troponin I High Sens 400 H* 08/27/21 18:20: Iron 45 L, TIBC 301, Ferritin 285 H 08/27/21 20:00: Blood Type A POSITIVE, Antibody Screen NEGATIVE 08/27/21 20:00: Crossmatch See Detail 08/27/21 20:18: COVID-19 (MERY) Not Detected 08/27/21 21:20: Lactic Acid 1.4 08/28/21 05:40: WBC 6.8, RBC 2.03 L, Hgb 5.7 L*, Hct 18.8 L, MCV 92.6, MCH 28.1, MCHC 30.3 L, RDW Std Deviation 45.4 H, RDW Coeff of Dottie 13.6, Plt Count 215, MPV 8.9, Immature Gran % (Auto) 0.700, Neut % (Auto) 63.6, Lymph % (Auto) 24.8, [place] % (Auto) 9.1, Eos % (Auto) 1.2, Baso % (Auto) 0.6, Absolute Neuts (auto) 4.3, Absolute Lymphs (auto) 1.69, Nucleated RBC % 0, Diff Path Review January08/28/21 05:40: Sodium 139, Potassium 4.7, Chloride 113 H, Carbon Dioxide 19.0 L , Anion Gap 7, BUN 62 H, Creatinine 5.67 H, Estim Creat Clear Calc 8.66, Est GFR (MDRD) Af Amer 10 L, Est GFR (MDRD) Non-Af 8 L, BUN/Creatinine Ratio 10.9, Glucose 84, Calcium 7.8 L 08/28/21 08:15: Ur Random Sodium 68, Urine Creatinine 94.80 08/28/21 08:50: Troponin I High Sens 685 H* Micro: Microbiology 08/27/21 19:25 Nasal Secretion SARS-CoV-2 Antigen (Rapid) - Final Radiography Diagnostic Testing: Radiology Impression Chest X-Ray 08/27/21 17:30 IMPRESSION: Right lower lobe pneumonia. Electronically Signed: Mckinley Pollock MD at 20:03 EST , Service support , Abdomen/Pelvis CT 08/27/21 21:35 Physical Exam Const alert, oriented x3 and no apparent distress Exam Limitations: no limitations HEENT head/scalp atraumatic, moist oral mucous membranes and oropharynx normal Head and Scalp: normocephalic Eyes PERRL, EOMs intact bilaterally and conjunctivae normal Neck no lymphadenopathy Resp normal respiratory effort, no retractions, no use of accessory muscles and clear to auscultation bilaterally Cardio regular rate, regular rhythm, S1 normal heart sound, S2 normal heart sound and no murmurs GI normal to inspection, nondistended, normoactive bowel sounds, soft to palpation, non-tender, non-distended and hepatosplenomegaly Extremity normal to inspection, full ROM and no clubbing, cyanosis or edema Peripheral Pulses: Yes pulses 2+ throughout Skin no rashes or lesions noted Neuro oriented x3, CN's II-XII intact bilaterally and moves all extremities Sensorium / Orientation: awake and alert Psych affect normal Assessment & Plan Assessment/Plan (1) Anemia: (2) Pneumonia: (3) Acute kidney injury: (4) NSTEMI, initial episode of care: PLAN: #Acute on chronic anemia * hb is down to 5.7 from 7.1 on admission * being transfused with 2 units of PRBCs * will check iron profile and ferrritin * check stool for occult blood * she says she has required transfusions in the past, but is not sure what the cause of her anemia is * consult gastroenterology * #AGGIE * Cr is down to 5.67, from 5.88 on admission * has no known CKD * CT abdomen and pelvis was negative for any obstructive pathology * check FeNA and UA * consult nephrology * being hydrated with IVF * #Nonstemi * likely a type 2 nonstemi due to demand ischemia * initial high sensitivity troponin on admission was ~ 500, now trended up to 685. May also be affected by the elevated Cr * cardiology consulted. * #Community acquired pneumonia * CXR showed a right lower lobe infiltrate * on IV levaquin q48hr. * blood cultures pending. * #Hypertension: on lisinopril and metoprolol as well as HCZ and amlodipine. Hold lisinopril and HCTZ due to AGGIE. #History of asthma: on breathing treatment with bronchodilators #History of diabetes L: appears to be diet controlled, as she is not on any hypoglycemic agents. ISS. Accuchecks ACHS. DVT prophylaxis: SCDs. No anticoagulation due to anemia Charges/Coding Visit Charges Inpatient E&M: 82357 Subs Hosp L3
--- NOTE | 2021-08-28 10:37 | ECHOD_ITS ---
Reason For Study: s/p MD Procedure This was a 2D Doppler, Color Flow transthoracic echocardiogram. Technically difficult, echo done in ED. The study was technically difficult. Exam performed portable in ED. Left Ventricle Normal LV size. Left ventricular systolic function is normal. The estimated ejection fraction is 60 %. There is evidence of diastolic dysfunction. No regional wall motion abnormalities noted. Right Ventricle Normal RV size. Normal systolic function. Atria The left atrium is mildly enlarged. Normal right atrium. No doppler evidence for ASD. Mitral Valve There is no mitral annular calcification. Mild diffuse mitral valve thickening. The mitral valve chordae are thickened and/or calcified. Mild-Moderate (1-2+) eccentric mitral valve insufficiency. Tricuspid Valve Normal tricuspid valve. Mild tricuspid valve insufficiency. Aortic Valve Trisinus/trileaflet aortic valve. Normal aortic valve. Pulmonic Valve The pulmonic valve is not well visualized. Great Vessels The aortic root is not well visualized. Pericardium/Pleural No pericardial effusion. MMode/2D Measurements & Calculations LVIDd: 5.6 cm IVSd: 1.2 cm LA dimension: 3.6 cm LVIDs: 4.0 cm LVPWd: 1.2 cm FS: 28.9 % LAV(MOD-bp): 75.3 ml LA A4 area: 23.4 cm2 RA A4 area: 17.4 cm2 LAV(MOD-bp) Indexed: 39.8 ml/m2 LAV(MOD-sp2): 74.8 ml LAV(MOD-sp4): 72.2 ml Time Measurements MV dec time: 0.18 sec Doppler Measurements & Calculations MV E max migel: 112.6 cm/sec Lat Peak E' Migel: 8.7 cm/sec Med Peak E' Migel: 7.5 cm/sec MV A max migel: 106.6 cm/sec E/E' lat: 12.9 E/E' med: 15.0 MV E/A: 1.1 MV V2 max: 164.7 cm/sec MV P1/2t max migel: 166.6 cm/sec Ao V2 max: 122.4 cm/sec MV max P.8 mmHg MV P1/2t: 52.9 msec Ao max P.0 mmHg MV V2 mean: 84.7 cm/sec MV dec slope: 922.7 cm/sec2 MV mean P.4 mmHg MVA(P1/2t): 4.2 cm2 MV V2 VTI: 34.7 cm LV V1 max: 99.7 cm/sec PA V2 max: 79.9 cm/sec LV V1 max P.0 mmHg ECHO/Echo Complete Interpretation Summary The study was technically difficult. Left ventricular systolic function is normal. The estimated ejection fraction is 60 %. The left atrium is mildly enlarged. Mild diffuse mitral valve thickening. The mitral valve chordae are thickened and/or calcified. Mild-Moderate (1-2+) eccentric mitral valve insufficiency. Mild tricuspid valve insufficiency. There is evidence of diastolic dysfunction. Ordering Physician: Isaiah Brown Referring Physician: Prince Cummins Performed By: Fritz Nevarez RCS
[2021-08-28 11:01] LABS: Glucose, Dipstick 50 mg/dl (Normal); Ketone-Dipstick Negative (Negative); Leukocyte Esterase-Dipstick 100 /ul (Negative); Nitrite-Dipstick Negative (Negative); Occult Blood-Urine 50 /ul (Negative); Protein-Dipstick 500 mg/dl (Negative); Specific Gravity, Urine 1.015 (1.002-1.030); Urine Bilirubin Dipstick Negative (Negative); Urine Urobilinogen Normal (Normal)
[2021-08-28 11:02] LABS: Color, Urine Yellow (Yellow); Urine Clarity Sl Cloudy (Clear)
[2021-08-28 11:04] LABS: Bacteria RARE /hpf (None Seen); Mucous, Urine RARE /hpf (<or=2+); Red Blood Cells-Urine 0-5 SEEN /hpf (0-5); Squamous Epithelial Cells - UA 0-5 SEEN /hpf (5-10); White Blood Cells 0-5 SEEN /hpf (0-5)
--- NOTE | 2021-08-28 11:15 | CASEMGMT ---
RN CM Face to Face with patient for initial transition planning/care coordination assessment. RN CM introduced self and role at [facility]. Patient lying in bed, alert and oriented. Patient willing to participate in assessment and is able to answer all questions appropriately. Care providers, pharmacy, and demographics verified. Patient wishes to discharge home, denies need for home health at this time. Patient states she has no further needs or concerns at this time. CM to follow for discharge planning needs that may arise. PCP: Prince Cummins Specialists: none Preferred Pharmacy: [facility] retail at discharge Insurance: [employer] Prescription Benefit: yes Living Will/HPOA: none LNOK: son, grandson Living Arrangements: patient lives with son, grandson, and daughter in a duplex. Patient states she is independent and able to ambulate stairs. Transportation: Grandson DME/HHC: patient states she has shower chair, BSC, and grab bars at home. Patient denied further needs at discharge. Patient has had CCN in the past. Disposition Plan: Patient to discharge home with family support and follow-up plans in place. Hawa MCCORMICK, RN, CM
[2021-08-28 11:21] LABS: Ferritin 247 ng/mL (8-252); Iron 48 ug/dL (50-170); Iron Binding Capacity,Total 280 ug/dL (250-450)
[2021-08-28 11:44] LABS: Troponin-I HS 653 pg/mL (3.0-54.0)
[2021-08-28 13:33] LABS: Pathologist Review Reviewed
[2021-08-28 15:53] LABS: Troponin-I HS 587 pg/mL (3.0-54.0)
--- NOTE | 2021-08-28 17:02 | PCM.CONS.C ---
Assessment & Plan Assessment/Plan (1) NSTEMI, initial episode of care: PLAN: The patient has abnormal cardiac enzymes which have raise concern of a non-ST segment elevation VA. At the moment the patient does not appear to have any acute coronary syndrome symptoms nor does she have any acute ECG changes. She does not appear to have any left ventricular wall motion abnormalities. Thus there are concerns that her abnormal cardiac enzymes concerning for non-ST segment elevation VA may be a type II event brought out by her marked anemia and marked renal insufficiency. At the present time she will continue to be monitored. Is not unreasonable to continue medical therapy as deemed appropriate. She is receiving PRBCs which appears to be appropriate which may help increase her oxygen carrying capacity and benefit her cardiovascular status and potentially her renal status. Over time consideration can be given as to whether she develops the need for additional noninvasive or invasive cardiovascular testing. However it be reasonable to further evaluate and correct her underlying anemia and renal insufficiency prior to proceeding in such a manner. (2) Anemia: PLAN: The etiology of her anemia appears to be unclear at this time. She is receiving PRBCs. She has been requested to have GI consultation. (3) Acute kidney injury: PLAN: She does have a history of what appears to be chronic renal insufficiency which during this event has markedly worsened. She is also been requested to have nephrology consultation. (4) Hypertension: PLAN: Her blood pressure will need to be followed with her medicines adjusted accordingly. (5) Diabetes: QUALIFIERS: Diabetes mellitus type: type 2 PLAN: She will continue evaluation care per internal medicine. Addt'l Comments The aforementioned information was conveyed to the [facility] staff. This note was generated using a voice recognition system and there may be incorrect words, spelling or punctuation that were not noted when reviewing the office note prior to saving. HPI Consult Data Date of Consult: 08/28/21 HPI Narrative HPI Narrative: NATALI KINSEY, is a 66 year old female who presents for cardiovascular consultation based upon concerns of abnormal cardiac enzymes superimposed upon a history of worsening anemia and worsening renal insufficiency. The patient does not recall having any classic symptoms of angina pectoris at this time. She states she has been more short of breath and dyspneic and notes that when she feels more short of breath and dyspneic-especially with any exertion-that she can sense this in her chest. There is been no acute orthopnea or PND or worsening peripheral pitting edema. She has had no near syncope or syncope. She appears to have had a longstanding history of anemia of uncertain etiology. She states that she has not been given a definitive diagnosis to the best of her knowledge of the etiology of her anemia. She also appears to have an element of chronic renal insufficiency. She presented to the [facility] emergency department based upon her concerns. She was found to be markedly anemic with a hemoglobin of 5.7 and a creatinine level of approximately 5.7. She was noted to have abnormal troponin I levels which have increased and then decreased. An ECG was performed which appeared to demonstrate underlying sinus rhythm with a nonspecific ST/T wave abnormality. In comparison to a previous ECG from 11-08-2019 there appeared to be similar type concerns with nonspecific ST/T wave abnormalities. She underwent a transthoracic echocardiogram this day. It was a technically diminished quality study however her left ventricle appeared to be normal with an LVEF of 60% with mild left atrial enlargement and mild diffuse mitral valve thickening and mitral valve cord thickening/calcification with mild to moderate MR and mild TR and diminished LV diastolic function. She also had a previous transthoracic echocardiogram on 11-07-2019. At that time her left ventricle was normal with an LVEF of 75% with decreased diastolic function. [facility] Medical History (Updated 08/28/21 @ 10:[address] Nayla Story MD) Asthma Chest pain Diabetes Hypertension Rheumatoid arthritis SOB (shortness of breath) Stroke Home Medications amlodipine 5 mg tablet See Rx Instructions .ROUTE .COMPLEX #90 tab 11/22/20 [Rx Last Taken Unknown] ipratropium 0.5 mg-albuterol 3 mg (2.5 mg base)/3 mL nebulization soln 3 ml INHALATION Q6HWA.RT PRN #90 ml 11/23/20 [Rx Last Taken Unknown] carvedilol 12.5 mg tablet 12.5 mg PO BID 11/28/20 [History Last Taken Unknown] hydrochlorothiazide 12.5 mg tablet 12.5 mg PO DAILY #90 tab 05/07/21 [Rx Last Taken Unknown] lisinopril 20 mg tablet 20 mg PO DAILY #90 tab 05/07/21 [Rx Last Taken Unknown] lanolin-mineral oil lotion 1 applic TOPICAL DAILY PRN #500 ml 05/25/21 [Rx Last Taken Unknown] Allergy/AdvReac Type Severity Reaction Status Date / Time ceftriaxone Allergy Severe Rash Verified 08/27/21 17:25 vancomycin Allergy Severe Rash Verified 08/27/21 17:25 Penicillins Allergy Swelling Verified 08/27/21 17:25 oxycodone HCl [From Percocet] AdvReac Itching Verified 08/27/21 17:25 Family History Mother Hypertension Emphysema/COPD Sister Hypertension Surgical History H/O: hysterectomy History of eye surgery knee scope Social History Smoking Status: Former smoker alcohol intake: current details: 1 per week substance use type: does not use what type of physical activity do you participate in: none ROS Constitutional Constitutional: Reports lethargy Eyes Eyes: Reports as per HPI ENT HEENT: Reports as per HPI Cardiovascular Cardiovascular: Reports dyspnea and fatigue Respiratory/Chest Respiratory/Chest: Reports dyspnea Gastrointestinal Gastrointestinal: Reports as per HPI Genitourinary Genitourinary: Reports as per HPI Musculoskeletal Musculoskeletal: Reports as per HPI Integumentary Integumentary: Reports as per HPI Neurologic Neurologic: Reports as per HPI Physical Exam Const alert, oriented x3 and no apparent distress Orientation / Consciousness: awake HEENT normocephalic, head/scalp atraumatic and hearing grossly normal bilaterally Eyes PERRL, EOMs intact bilaterally and conjunctivae normal Neck full ROM, supple and no JVD Chest inspection of chest normal Resp normal respiratory effort and clear to auscultation bilaterally Cardio regular rate, regular rhythm, S1 normal heart sound and S2 normal heart sound GI normal to inspection, nondistended, normoactive bowel sounds Extremity no pedal edema Skin no rashes or lesions noted Neuro oriented x3 and moves all extremities Psych mental status grossly normal Risk Stratification Risk Stratification Applicable: Yes Age >/= 65: No >/= 3 CAD Risk Factors (HTN, HLD, DM, family hx of CAD, or current smoker): No Aspirin Use in the Past 7 Days: No Severe Angina (>/= episodes in 24 hours): No EKG ST Changes >/= 0.5mm: No Positive Cardiac Marker: Yes SHA Risk Stratification Score: 1 SHA % Risk: 5% Risk Procedure Criteria Type of Procedure Procedure Type: Elective Elective Risks - COVID COVID Risk Discussion: The surgeon/proceduralist and patient have discussed in detail the risk of exposure to and/or potential harm posed by the COVID-19 virus with having a surgery/procedure at this time versus the risk of delaying the surgery/procedure. It is not possible to know either the risk of delaying the surgery or procedure or chance of getting an infection with perfect accuracy, but a joint decision was made between the patient and the surgeon/proceduralist to proceed at this time with the scheduled surgery/procedure as indicated on the consent form. Objective Data Vital Signs: Vital Signs Temp Pulse Resp BP Pulse Ox 97.9 F 79 18 147/78 H 100 08/28/21 16:29 08/28/21 16:29 08/28/21 16:29 08/28/21 16:29 08/28/21 16:29 Oxygen Delivery Method Room Air Weight: 180 lb Body Mass Index (BMI) 30.9 Intake & Output: Intake and Output for Last 24 Hours 08/26/21 08/27/21 08/28/21 23:59 23:59 23:59 Intake Total 1600 / 1600 954.17 / 954.17 Balance 1600 / 1600 954.17 / 954.17 Lab / Micro Data Result Diagrams: 08/28/21 05:40 08/28/21 05:40 Labs: Laboratory Results - last 24 hr 08/27/21 18:20: WBC 8.8, RBC 2.49 L, Hgb 7.1 L, Hct 22.9 L, MCV 92.0, MCH 28.5, MCHC 31.0 L, RDW Std Deviation 44.1 H, RDW Coeff of Dottie 13.4, Plt Count 278, MPV 9.2, Immature Gran % (Auto) 0.700, Neut % (Auto) 69.1, Lymph % (Auto) 20.7, [place] % (Auto) 7.5, Eos % (Auto) 1.5, Baso % (Auto) 0.5, Absolute Neuts (auto) 6.1, Absolute Lymphs (auto) 1.83, Nucleated RBC % 0 08/27/21 18:20: Sodium 140, Potassium 5.0, Chloride 112 H, Carbon Dioxide 24.0, Anion Gap 4 L, BUN 67 H, Creatinine 5.88 H, Estim Creat Clear Calc 8.35, Est GFR (MDRD) Af Amer 9 L, Est GFR (MDRD) Non-Af 8 L, BUN/Creatinine Ratio 11.4, Glucose 89, Calcium 8.8, Troponin I High Sens 400 H* 08/27/21 18:20: Iron 45 L, TIBC 301, Ferritin 285 H 08/27/21 20:00: Blood Type A POSITIVE, Antibody Screen NEGATIVE 08/27/21 20:00: Crossmatch See Detail 08/27/21 20:18: COVID-19 (MERY) Not Detected 08/27/21 21:20: Lactic Acid 1.4 08/28/21 05:40: WBC 6.8, RBC 2.03 L, Hgb 5.7 L*, Hct 18.8 L, MCV 92.6, MCH 28.1, MCHC 30.3 L, RDW Std Deviation 45.4 H, RDW Coeff of Dottie 13.6, Plt Count 215, MPV 8.9, Immature Gran % (Auto) 0.700, Neut % (Auto) 63.6, Lymph % (Auto) 24.8, [place] % (Auto) 9.1, Eos % (Auto) 1.2, Baso % (Auto) 0.6, Absolute Neuts (auto) 4.3, Absolute Lymphs (auto) 1.69, Nucleated RBC % 0, Diff Path Review Reviewed 08/28/21 05:40: Sodium 139, Potassium 4.7, Chloride 113 H, Carbon Dioxide 19.0 L, Anion Gap 7, BUN 62 H, Creatinine 5.67 H, Estim Creat Clear Calc 8.66, Est GFR (MDRD) Af Amer 10 L, Est GFR (MDRD) Non-Af 8 L, BUN/Creatinine Ratio 10.9, Glucose 84, Calcium 7.8 L, Iron 48 L, TIBC 280, Ferritin 247 08/28/21 08:15: Ur Random Sodium 68, Urine Creatinine 94.80 08/28/21 08:17: Urine Color Yellow, Urine Clarity Sl Cloudy, Urine pH 5.0, Ur Specific [place] 1.015, Urine Protein 500 H, Urine Glucose (UA) 50 H, Urine Ketones Negative, Urine Occult Blood 50 H, Urine Nitrite Negative, Urine Bilirubin Negative, Urine Urobilinogen Normal, Ur Leukocyte Esterase 100 H, Urine RBC 0-5 SEEN, Urine WBC 0-5 SEEN, Ur Squamous Epith Cells 0-5 SEEN, Urine Bacteria RARE, Urine Mucus RARE 08/28/21 08:50: Troponin I High Sens 685 H* 08/28/21 11:05: Troponin I High Sens 653 H* 08/28/21 14:49: Troponin I High Sens 587 H* Micro: Microbiology 08/28/21 11:30 Stool Stool Occult Blood (SIMONE) - Final Occult Blood Positive 08/27/21 19:25 Nasal Secretion SARS-CoV-2 Antigen (Rapid) - Final Cardiology Labs/Tests 08/27/21 18:20: WBC 8.8, RBC 2.49 L, Hgb 7.1 L, Hct 22.9 L, MCV 92.0, MCH 28.5, MCHC 31.0 L, Plt Count 278, MPV 9.2, Immature Gran % (Auto) 0.700, Neut % (Auto) 69.1, Lymph % (Auto) 20.7, [place] % (Auto) 7.5, Eos % (Auto) 1.5, Baso % (Auto) 0.5, Absolute Neuts (auto) 6.1, Nucleated RBC % 0 08/27/21 18:20: Sodium 140, Potassium 5.0, Chloride 112 H, Carbon Dioxide 24.0, Anion Gap 4 L, BUN 67 H, Creatinine 5.88 H, Est GFR (MDRD) Af Amer 9 L, Est GFR (MDRD) Non-Af 8 L, BUN/Creatinine Ratio 11.4, Glucose 89, Calcium 8.8 08/27/21 18:20: Iron 45 L, TIBC 301, Ferritin 285 H 08/27/21 21:20: Lactic Acid 1.4 08/28/21 05:40: WBC 6.8, RBC 2.03 L, Hgb 5.7 L*, Hct 18.8 L, MCV 92.6, MCH 28.1, MCHC 30.3 L, Plt Count 215, MPV 8.9, Immature Gran % (Auto) 0.700, Neut % (Auto) 63.6, Lymph % (Auto) 24.8, [place] % (Auto) 9.1, Eos % (Auto) 1.2, Baso % (Auto) 0.6, Absolute Neuts (auto) 4.3, Nucleated RBC % 0 08/28/21 05:40: Sodium 139, Potassium 4.7, Chloride 113 H, Carbon Dioxide 19.0 L, Anion Gap 7, BUN 62 H, Creatinine 5.67 H, Est GFR (MDRD) Af Amer 10 L, Est GFR (MDRD) Non-Af 8 L, BUN/Creatinine Ratio 10.9, Glucose 84, Calcium 7.8 L, Iron 48 L, TIBC 280, Ferritin 247 08/28/21 08:17: Urine Color Yellow, Urine Clarity Sl Cloudy, Urine pH 5.0, Ur Specific [place] 1.015, Urine Protein 500 H, Urine Glucose (UA) 50 H, Urine Ketones Negative, Urine Occult Blood 50 H, Urine Nitrite Negative, Urine Bilirubin Negative, Urine Urobilinogen Normal, Ur Leukocyte Esterase 100 H, Urine RBC 0-5 SEEN, Urine WBC 0-5 SEEN Rhythm: Sinus rhythm EKG: As noted above ECHO: As noted above Radiography Diagnostic Testing: Radiology Impression Chest X-Ray 08/27/21 17:30 IMPRESSION: Right lower lobe pneumonia. Electronically Signed: Mckinley Pollock MD at 20:03 EST , Service support , Abdomen/Pelvis CT 08/27/21 21:35 Echocardiogram 08/28/21 10:37 Interpretation Summary The study was technically difficult. Left ventricular systolic function is normal. The estimated ejection fraction is 60 %. The left atrium is mildly enlarged. Mild diffuse mitral valve thickening. The mitral valve chordae are thickened and/or calcified. Mild-Moderate (1-2+) eccentric mitral valve insufficiency. Mild tricuspid valve insufficiency. There is evidence of diastolic dysfunction. Ordering Physician: Isaiah Brown Referring Physician: Brown, Prince Performed By: Fritz Nevarez RCS
--- NOTE | 2021-08-28 21:06 | CON.PCM.GI_ITS ---
HPI Consult Data Date of Consult: 08/28/21 HPI Narrative HPI Narrative: NATALI KINSEY, is a 66 F who presents to the ED with worsening cough shortness of breath. She was also complaining of chest pain. She was discovered to have a very elevated troponin level along with acute on chronic renal failure and a severe anemia. She has a history of chronically e levated liver function tests secondary to chronic viral hepatitis C. She is never been treated for hepatitis C. She also has extensive cardiovascular history including a history of CVA. She is currently being seen by cardiology and she is getting medical management for non-ST segment elevation NH. I was asked to see her due to her profound anemia. She says that she has been dealing with her chronic anemia for a long time. She has received multiple iron transfusions along with blood transfusions in the past. She also has a history of poorly controlled diabetes mellitus. She has no family history of anemia. [facility] Medical History (Updated 08/28/21 @ 10:[address] Nayla Story MD) Asthma Chest pain Diabetes Hypertension Rheumatoid arthritis SOB (shortness of breath) Stroke Home Medications amlodipine 5 mg tablet See Rx Instructions .ROUTE .COMPLEX #90 tab 11/22/20 [Rx Last Taken Unknown] ipratropium 0.5 mg-albuterol 3 mg (2.5 mg base)/3 mL nebulization soln 3 ml INHALATION Q6HWA.RT PRN #90 ml 11/23/20 [Rx Last Taken Unknown] carvedilol 12.5 mg tablet 12.5 mg PO BID 11/28/20 [History Last Taken Unknown] hydrochlorothiazide 12.5 mg tablet 12.5 mg PO DAILY #90 tab 05/07/21 [Rx Last Taken Unknown] lisinopril 20 mg tablet 20 mg PO DAILY #90 tab 05/07/21 [Rx Last Taken Unknown] lanolin-mineral oil lotion 1 applic TOPICAL DAILY PRN #500 ml 05/25/21 [Rx Last Taken Unknown] Allergy/AdvReac Type Severity Reaction Status Date / Time ceftriaxone Allergy Severe Rash Verified 08/27/21 17:25 vancomycin Allergy Severe Rash Verified 08/27/21 17:25 Penicillins Allergy Swelling Verified 08/27/21 17:25 oxycodone HCl [From Percocet] AdvReac Itching Verified 08/27/21 17:25 Family History Mother Hypertension Emphysema/COPD Sister Hypertension Surgical History H/O: hysterectomy History of eye surgery knee scope Social History Smoking Status: Former smoker alcohol intake: current details: 1 per week substance use type: does not use what type of physical activity do you participate in: none ROS Review of Systems ROS Unobtainable: other Constitutional Constitutional: Denies fatigue, fever(s), poor appetite, weight gain or weight loss ENT HEENT: Denies mouth lesions Cardiovascular Cardiovascular: Denies abdominal bloating, abdominal edema or abdominal pain Respiratory/Chest Respiratory/Chest: Denies change in mental status, change in phlegm color, chest congestion or chest tightness Gastrointestinal Gastrointestinal: Denies belching, bloating, change in bowel habits, change in stool character, chewing difficulty, coffee ground emesis, constipation, cramping, diarrhea, dyspepsia, dysphagia, early satiety, excessive flatus, fecal incontinence, heartburn, hematemesis, hematochezia, hemorrhoids, loose stools, melena, nausea, odynophagia, rectal bleeding, tenesmus, vomiting or weight changes Genitourinary Genitourinary: Denies abdominal discomfort, burning urination or itching Musculoskeletal Musculoskeletal: Reports as per HPI; Denies muscle weakness or myalgias Integumentary Integumentary: Denies jaundice Neurologic Neurologic: Denies lack of coordination or weakness Psychiatric Psychiatric: Denies confusion, depression, memory loss, mood swings, paranoia or suicidal ideation Endocrine Endocrinology: Denies systems reviewed and no addt'l complaints, except as documented Hematologic/Lymphatic Hematologic/Lymphatic: Denies anemia, easy bleeding, easy bruising or lymphadenopathy Allergic/Immunologic Allergic/Immunologic: Denies systems reviewed and no addt'l complaints, except as documented Physical Exam Const alert General Appearance: cooperative Orientation / Consciousness: oriented to person HEENT hearing grossly normal bilaterally Head and Scalp: normal to inspection Face and Sinus: face symmetric Nose: external nose normal Mouth: oral and palatal mucosa normal Eyes conjunctivae normal General Eye: normal appearance of both eyes Neck full ROM General: normal visual inspection Lymph Lymphatic: no lymphadenopathy noted Chest inspection of chest normal and palpation of chest normal Chest: symmetrical chest wall rise Resp normal respiratory effort Effort and Inspection: able to speak in complete sentences Cardio regular rate GI non-distended Percussion: normal to percussion Rectal Exam: deferred Neuro Speech: speech normal Lab / Micro Data Result Diagrams: 08/28/21 05:40 08/28/21 05:40 Labs: Laboratory Results - last 24 hr 08/27/21 18:20: Iron 45 L, TIBC 301, Ferritin 285 H 08/27/21 20:00: Crossmatch See Detail 08/27/21 20:18: COVID-19 (MERY) Not Detected 08/27/21 21:20: Lactic Acid 1.4 08/28/21 05:40: WBC 6.8, RBC 2.03 L, Hgb 5.7 L*, Hct 18.8 L, MCV 92.6, MCH 28.1, MCHC 30.3 L, RDW Std Deviation 45.4 H, RDW Coeff of Dottie 13.6, Plt Count 215, MPV 8.9, Immature Gran % (Auto) 0.700, Neut % (Auto) 63.6, Lymph % (Auto) 24.8, [place] % (Auto) 9.1, Eos % (Auto) 1.2, Baso % (Auto) 0.6, Absolute Neuts (auto) 4.3, Absolute Lymphs (auto) 1.69, Nucleated RBC % 0, Diff Path Review Reviewed 08/28/21 05:40: Sodium 139, Potassium 4.7, Chloride 113 H, Carbon Dioxide 19.0 L , Anion Gap 7, BUN 62 H, Creatinine 5.67 H, Estim Creat Clear Calc 8.66, Est GFR (MDRD) Af Amer 10 L, Est GFR (MDRD) Non-Af 8 L, BUN/Creatinine Ratio 10.9, Glucose 84, Calcium 7.8 L, Iron 48 L, TIBC 280, Ferritin 247 08/28/21 08:15: Ur Random Sodium 68, Urine Creatinine 94.80 08/28/21 08:17: Urine Color Yellow, Urine Clarity Sl Cloudy, Urine pH 5.0, Ur Specific [place] 1.015, Urine Protein 500 H, Urine Glucose (UA) 50 H, Urine Ketones Negative, Urine Occult Blood 50 H, Urine Nitrite Negative, Urine Bilirubin Negative, Urine Urobilinogen Normal, Ur Leukocyte Esterase 100 H, Urine RBC 0-5 SEEN, Urine WBC 0-5 SEEN, Ur Squamous Epith Cells 0-5 SEEN, Urine Bacteria RARE, Urine Mucus RARE 08/28/21 08:50: Troponin I High Sens 685 H* 08/28/21 11:05: Troponin I High Sens 653 H* 08/28/21 14:49: Troponin I High Sens 587 H* Micro: Microbiology 08/28/21 11:30 Stool Stool Occult Blood (SIMONE) - Final Occult Blood Positive 08/27/21 19:25 Nasal Secretion SARS-CoV-2 Antigen (Rapid) - Final Radiology Impression Abdomen/Pelvis CT 08/27/21 21:35 Echocardiogram 08/28/21 10:37 Interpretation Summary The study was technically difficult. Left ventricular systolic function is normal. The estimated ejection fraction is 60 %. The left atrium is mildly enlarged. Mild diffuse mitral valve thickening. The mitral valve chordae are thickened and/or calcified. Mild-Moderate (1-2+) eccentric mitral valve insufficiency. Mild tricuspid valve insufficiency. There is evidence of diastolic dysfunction. ___ Ordering Physician: Isaiah Brown Referring Physician: Prince Cummins Performed By: Fritz Nevarez RCS Assessment & Plan Assessment/Plan (1) Abdominal pain: PLAN: Patient at this time does not have abdominal pain after she has been transfused packed red blood cells. Differential diagnosis for her abdominal pain could be intestinal angina, peptic ulcer disease, portal gastropathy associated with chronic hepatitis C versus gastroparesis secondary to uncontrolled diabetes. She should undergo an upper endoscopy to evaluate upper GI tract. Recommend Protonix 40 mg once a day due to her renal failure. (2) Anemia: PLAN: Patient has a normocytic anemia with low iron indices. She also had receive iron transfusions and had a ferritin of 800 and has drifted down to 249. That is consistent with an iron deficiency anemia. I suspect she also has a concomitant macrocytic anemia secondary to chronic hepatitis C. She should undergo evaluation of her upper and lower GI tract along with her small bowel. She does not want to undergo upper or lower endoscopy. She would like a prep tomorrow. If she prep tomorrow then we can do the procedure on . Charges/Coding Visit Charges Inpatient E&M: 31336 Init Hosp L3
--- NOTE | 2021-08-28 23:17 | CON.PCM.RE_ITS ---
Assessment & Plan Assessment/Plan (1) AGGIE (acute kidney injury): PLAN: The patient may have underlying chronic kidney disease as well. Prior serum creatinine from 03/08/20 was already 1.33 mg/dL. Current renal dysfunction, however, there is likely acute. AGGIE is most likely related to volume depletion related to decreased intake in the setting of CAP. The patient also continues to take HARRISON inhibitor until the day of presentation. There is no evidence of obstruction on CT of the abdomen. More than likely, the patient has ischemic ATN at this point. Fractional excretion of sodium of more than 1% on 08/27/21 is consistent with ATN. Since the patient appears volume depleted on exam, I agree with continuing IV fluid for now. Would stop ACEI and Lasix. There is no urgent need for kidney replacement therapy today. The patient is not hyperkalemic. There is no significant or refractory acidosis at this point either. We will recheck renal function again in a.m. Current medications are reviewed and are appropriately dosed for the current estimated renal function. (2) Hypertension: PLAN: We will stop lisinopril and furosemide for now because of AGGIE. Continue amlodipine and carvedilol. If blood pressure is higher off of diuretic and HARRISON inhibitor, we can increase amlodipine to 10 mg/day. (3) Community acquired pneumonia: PLAN: The patient is being treated with ceftriaxone and azithromycin. No need to adjust the dosage of these antibiotics for renal function. (4) Anemia: PLAN: Recommend transfusion of PRBC which should also help with renal perfusion. The patient is also being investigated by GI service for possible GI bleed. (5) Type II diabetes mellitus: QUALIFIERS: Diabetes mellitus complication status: with hyperglycemia Diabetes mellitus assisted insulin use: without termite treater helper use Qualified Code(s): E11.65 - Type 2 diabetes mellitus with hyperglycemia HPI Consult Data Date of Consult: 08/28/21 HPI Narrative Reason for Consultation: AGGIE HPI Narrative: The patient is a 66-year-old woman with past history of type 2 diabetes mellitus, chronic untreated hepatitis C, and hypertension who presented to the hospital on 08/27/21 with an 8-day history of progressive weakness, abdo johnny pain, nausea, and dyspnea. The patient also complains of cough with sputum production. She was found to have a right lower lobe pulmonary infiltrate and is being treated for community acquired pneumonia. Nephrology is asked to see the patient because of AGGIE. During the work-up for her presenting complaints, the patient was found to serum creatinine of 5.68 mg/dL. The most recently available serum creatinine from 2419 was 1.33 mg/dL. CT scan of the abdomen on 1320 did not show any hydronephrosis. The patient reports poor oral intake and nausea prior to admission. She also reports taking lisinopril to the day of presentation. The patient denies recent exposure to IV contrast or NSAIDs. [facility] Medical History (Updated 08/28/21 @ 23:[address] Jelani Allison MD) Asthma Chest pain Diabetes Hypertension Rheumatoid arthritis SOB (shortness of breath) Stroke Home Medications amlodipine 5 mg tablet See Rx Instructions .ROUTE .COMPLEX #90 tab 11/22/20 [Rx Last Taken Unknown] ipratropium 0.5 mg-albuterol 3 mg (2.5 mg base)/3 mL nebulization soln 3 ml INHALATION Q6HWA.RT PRN #90 ml 11/23/20 [Rx Last Taken Unknown] carvedilol 12.5 mg tablet 12.5 mg PO BID 11/28/20 [History Last Taken Unknown] hydrochlorothiazide 12.5 mg tablet 12.5 mg PO DAILY #90 tab 05/07/21 [Rx Last Taken Unknown] lisinopril 20 mg tablet 20 mg PO DAILY #90 tab 05/07/21 [Rx Last Taken Unknown] lanolin-mineral oil lotion 1 applic TOPICAL DAILY PRN #500 ml 05/25/21 [Rx Last Taken Unknown] Allergy/AdvReac Type Severity Reaction Status Date / Time ceftriaxone Allergy Severe Rash Verified 08/27/21 17:25 vancomycin Allergy Severe Rash Verified 08/27/21 17:25 Penicillins Allergy Swelling Verified 08/27/21 17:25 oxycodone HCl [From Percocet] AdvReac Itching Verified 08/27/21 17:25 Family History Mother Hypertension Emphysema/COPD Sister Hypertension Surgical History H/O: hysterectomy History of eye surgery knee scope Social History Smoking Status: Former smoker alcohol intake: current details: 1 per week substance use type: does not use what type of physical activity do you participate in: none ROS ROS Narrative ROS is as per HPI. 10 out of 10 ROS was done and is otherwise noncontributory. Physical Exam Narrative General: Ill-appearing but NAD HEENT: Normocephalic, atraumatic. Mucous membrane dry. There is no mucosal erythema. PERRLA, EOMI. Neck: Supple, no JVD. Heart: Normal S1, S2. No rubs, murmurs or gallops. Lungs: Decreased breath sounds bases bilaterally. Abdomen: Normal bowel sounds, soft, mildly tender diffusely without guarding or rebound. Extremity: No clubbing, cyanosis, or edema. Full passive range of motion. Neurological: No focal neurologic deficit. Skin: Warm and dry without rash. Lab / Micro Data Result Diagrams: 08/28/21 05:40 08/28/21 05:40 Labs: Laboratory Results - last 24 hr 08/27/21 20:00: Crossmatch See Detail 08/27/21 20:18: COVID-19 (MERY) Not Detected 08/28/21 05:40: WBC 6.8, RBC 2.03 L, Hgb 5.7 L*, Hct 18.8 L, MCV 92.6, MCH 28.1, MCHC 30.3 L, RDW Std Deviation 45.4 H, RDW Coeff of Dottie 13.6, Plt Count 215, MPV 8.9, Immature Gran % (Auto) 0.700, Neut % (Auto) 63.6, Lymph % (Auto) 24.8, Ector % (Auto) 9.1, Eos % (Auto) 1.2, Baso % (Auto) 0.6, Absolute Neuts (auto) 4.3, Absolute Lymphs (auto) 1.69, Nucleated RBC % 0, Diff Path Review Reviewed 08/28/21 05:40: Sodium 139, Potassium 4.7, Chloride 113 H, Carbon Dioxide 19.0 L , Anion Gap 7, BUN 62 H, Creatinine 5.67 H, Estim Creat Clear Calc 8.66, Est GFR (MDRD) Af Amer 10 L, Est GFR (MDRD) Non-Af 8 L, BUN/Creatinine Ratio 10.9, Glucose 84, Calcium 7.8 L, Iron 48 L, TIBC 280, Ferritin 247 08/28/21 08:15: Ur Random Sodium 68, Urine Creatinine 94.80 08/28/21 08:17: Urine Color Yellow, Urine Clarity Sl Cloudy, Urine pH 5.0, Ur Specific Leonard 1.015, Urine Protein 500 H, Urine Glucose (UA) 50 H, Urine Ketones Negative, Urine Occult Blood 50 H, Urine Nitrite Negative, Urine Bilirubin Negative, Urine Urobilinogen Normal, Ur Leukocyte Esterase 100 H, Urine RBC 0-5 SEEN, Urine WBC 0-5 SEEN, Ur Squamous Epith Cells 0-5 SEEN, Urine Bacteria RARE, Urine Mucus RARE 08/28/21 08:50: Troponin I High Sens 685 H* 08/28/21 11:05: Troponin I High Sens 653 H* 08/28/21 14:49: Troponin I High Sens 587 H* Micro: Microbiology 08/28/21 11:30 Stool Stool Occult Blood (SIMONE) - Final Occult Blood Positive 08/27/21 19:25 Nasal Secretion SARS-CoV-2 Antigen (Rapid) - Final Radiology Impression Echocardiogram 08/28/21 10:37 Interpretation Summary The study was technically difficult. Left ventricular systolic function is normal. The estimated ejection fraction is 60 %. The left atrium is mildly enlarged. Mild diffuse mitral valve thickening. The mitral valve chordae are thickened and/or calcified. Mild-Moderate (1-2+) eccentric mitral valve insufficiency. Mild tricuspid valve insufficiency. There is evidence of diastolic dysfunction. Ordering Physician: Isaiah Brown Referring Physician: Prince Cummins Performed By: Fritz Nevarez RCS
[2021-08-29] VITALS (14 sets, daily range): BP systolic 142–196; BP diastolic 42–103; PULSE 68–88; RESP 16–20; TEMP 36.8–37.2; O2SAT 94–99
[2021-08-29] MEDS: 0.9% Normal Saline 1,000 ML 125 ML IV ×3 (00:11→16:50)
[2021-08-29] MEDS: hydrALAZINE 20 MG/ML Vial 5 MG IV (00:12)
[2021-08-29] MEDS: Ipratropium/Albuterol Sulfate 3 ML AMPUL.NEB INHALATION (05:18)
[2021-08-29 05:25] LABS: Absolute Lymphocyte Count 1.78 X10^3/uL (0.83-4.51); Absolute Neutrophil Count 4.4 X10^3/uL (2.0-7.7); Basophil# 0.05 X10^3/uL; Basophil% 0.7 % (0-1); Eosinophil# 0.17 X10^3/uL; Eosinophils% 2.4 % (0-5); Hematocrit 26.6 % (37-47); Hemoglobin 8.1 g/dL (12.0-15.0); Lymphocyte # 1.78 X10^3/ul (0.83-4.51); Lymphocyte % 24.8 % (19-41); Mean Corp Hgb Conc 30.5 g/dL (32-36); Mean Corpuscular Hgb 28.6 pg (27.0-32.0); Mean Platelet Vol. 9.3 fl (6.2-12.0); Monocyte# 0.69 X10^3/uL; Monocyte% 9.6 % (0-10); NRBC Flagged by Analyzer 0 % (0-5); Neutrophil # 4.41 X10^3/uL (2.7-7.7); Neutrophil % 61.2 % (47-70); Platelet Count 218 K/mm3 (150-450); RBC Distribution Width CV 14.2 % (11.6-14.6); RBC Distribution Width SD 48.5 fl (35.1-43.9); Red Blood Count 2.83 M/mm3 (4.2-5.4); White Blood Count 7.2 K/mm3 (4.4-11.0)
[2021-08-29 05:49] LABS: Anion Gap 8 (5-15); BUN 51 mg/dL (7-18); BUN/Creat Ratio 12.2 RATIO (10-20); Calcium,Total 7.6 mg/dL (8.5-10.1); Chloride 114 mmol/L (98-107); Creatinine, Serum 4.17 mg/dL (0.55-1.02); EST Glomerular Filtration Rate 11 mL/min (>60); Est Glom Filt Rate - Afr Amer 14 mL/min (>60); Estimated Creatinine Clearance 11.77 ml/min; Glucose 85 mg/dL (74-106); Potassium 4.5 mmol/L (3.5-5.1); Sodium Level 137 mmol/L (136-145)
--- NOTE | 2021-08-29 08:03 | PCM.PN.CARD ---
Subjective Subjective The patient is awake and alert. She denies any ongoing chest discomfort. She believes her breathing is better since her PRBCs. Objective Data Vital Signs: Vital Signs Temp Pulse Resp BP Pulse Ox 98.3 F 84 17 187/67 H 97 08/29/21 05:03 08/29/21 06:56 08/29/21 05:19 08/29/21 06:55 08/29/21 05:03 Oxygen Delivery Method Room Air Weight: 180 lb Body Mass Index (BMI) 30.9 Intake & Output: Intake and Output for Last 24 Hours 08/27/21 08/28/21 08/29/21 23:59 23:59 23:59 Intake Total 1600 / 1600 954.17 / 1254.17 1439.58 / 1439.58 Balance 1600 / 1600 954.17 / 1254.17 1439.58 / 1439.58 Lab / Micro Data Result Diagrams: 08/29/21 04:40 08/29/21 04:44 Labs: Laboratory Results - last 24 hr 08/27/21 20:00: Crossmatch See Detail 08/28/21 05:40: Diff Path Review Reviewed 08/28/21 05:40: Iron 48 L, TIBC 280, Ferritin 247 08/28/21 08:15: Ur Random Sodium 68, Urine Creatinine 94.80 08/28/21 08:17: Urine Color Yellow, Urine Clarity Sl Cloudy, Urine pH 5.0, Ur Specific Greene 1.015, Urine Protein 500 H, Urine Glucose (UA) 50 H, Urine Ketones Negative, Urine Occult Blood 50 H, Urine Nitrite Negative, Urine Bilirubin Negative, Urine Urobilinogen Normal, Ur Leukocyte Esterase 100 H, Urine RBC 0-5 SEEN, Urine WBC 0-5 SEEN, Ur Squamous Epith Cells 0-5 SEEN, Urine Bacteria RARE, Urine Mucus RARE 08/28/21 08:50: Troponin I High Sens 685 H* 08/28/21 11:05: Troponin I High Sens 653 H* 08/28/21 14:49: Troponin I High Sens 587 H* 08/29/21 04:40: WBC 7.2, RBC 2.83 L, Hgb 8.1 L, Hct 26.6 L, MCV 94.0, MCH 28.6, MCHC 30.5 L, RDW Std Deviation 48.5 H, RDW Coeff of Dottie 14.2, Plt Count 218, MPV 9.3, Immature Gran % (Auto) 1.300 H, Neut % (Auto) 61.2, Lymph % (Auto) 24.8, Swisher % (Auto) 9.6, Eos % (Auto) 2.4, Baso % (Auto) 0.7, Absolute Neuts (auto) 4.4, Absolute Lymphs (auto) 1.78, Nucleated RBC % 0 08/29/21 04:44: Sodium 137, Potassium 4.5, Chloride 114 H, Carbon Dioxide 15.0 L, Anion Gap 8, BUN 51 H, Creatinine 4.17 H, Estim Creat Clear Calc 11.77, Est GFR (MDRD) Af Amer 14 L, Est GFR (MDRD) Non-Af 11 L, BUN/Creatinine Ratio 12.2, Glucose 85, Calcium 7.6 L Micro: Microbiology 08/28/21 11:30 Stool Stool Occult Blood (SIMONE) - Final Occult Blood Positive Cardiology Labs/Tests 08/28/21 05:40: Iron 48 L, TIBC 280, Ferritin 247 08/28/21 08:17: Urine Color Yellow, Urine Clarity Sl Cloudy, Urine pH 5.0, Ur Specific Greene 1.015, Urine Protein 500 H, Urine Glucose (UA) 50 H, Urine Ketones Negative, Urine Occult Blood 50 H, Urine Nitrite Negative, Urine Bilirubin Negative, Urine Urobilinogen Normal, Ur Leukocyte Esterase 100 H, Urine RBC 0-5 SEEN, Urine WBC 0-5 SEEN 08/29/21 04:40: WBC 7.2, RBC 2.83 L, Hgb 8.1 L, Hct 26.6 L, MCV 94.0, MCH 28.6, MCHC 30.5 L, Plt Count 218, MPV 9.3, Immature Gran % (Auto) 1.300 H, Neut % (Auto) 61.2, Lymph % (Auto) 24.8, Swisher % (Auto) 9.6, Eos % (Auto) 2.4, Baso % (Auto) 0.7, Absolute Neuts (auto) 4.4, Nucleated RBC % 0 08/29/21 04:44: Sodium 137, Potassium 4.5, Chloride 114 H, Carbon Dioxide 15.0 L, Anion Gap 8, BUN 51 H, Creatinine 4.17 H, Est GFR (MDRD) Af Amer 14 L, Est GFR (MDRD) Non-Af 11 L, BUN/Creatinine Ratio 12.2, Glucose 85, Calcium 7.6 L Rhythm: Sinus rhythm Radiography Diagnostic Testing: Radiology Impression Echocardiogram 08/28/21 10:37 Interpretation Summary The study was technically difficult. Left ventricular systolic function is normal. The estimated ejection fraction is 60 %. The left atrium is mildly enlarged. Mild diffuse mitral valve thickening. The mitral valve chordae are thickened and/or calcified. Mild-Moderate (1-2+) eccentric mitral valve insufficiency. Mild tricuspid valve insufficiency. There is evidence of diastolic dysfunction. Ordering Physician: Isaiah Brown Referring Physician: Prince Cummins Performed By: Fritz Nevarez RCS Physical Exam Const alert, oriented x3 and no apparent distress Orientation / Consciousness: awake HEENT normocephalic, head/scalp atraumatic and hearing grossly normal bilaterally Eyes PERRL, EOMs intact bilaterally and conjunctivae normal Neck full ROM, supple and no JVD Chest inspection of chest normal Resp normal respiratory effort and clear to auscultation bilaterally Cardio regular rate, regular rhythm, S1 normal heart sound and S2 normal heart sound GI normal to inspection, nondistended, normoactive bowel sounds Extremity no pedal edema Skin no rashes or lesions noted Neuro oriented x3 and moves all extremities Psych mental status grossly normal Assessment & Plan Assessment/Plan (1) NSTEMI, initial episode of care: PLAN: The patient has abnormal cardiac enzymes which have raise concern of a non-ST segment elevation AL. At the moment the patient does not appear to have any acute coronary syndrome symptoms nor does she have any acute ECG changes. She does not appear to have any left ventricular wall motion abnormalities. Thus there are concerns that her abnormal cardiac enzymes concerning for non-ST segment elevation AL may be a type II event brought out by her marked anemia and marked renal insufficiency. At the present time she will continue to be monitored. Is not unreasonable to continue medical therapy as deemed appropriate. She has received PRBCs. Her hemoglobin has increased. However, her hemoglobin remains low. She may need additional PRBCs to assist with her oxygen carrying capacity. Over time consideration can be given as to whether she develops the need for additional noninvasive or invasive cardiovascular testing. However it be reasonable to further evaluate and correct her underlying anemia and renal insufficiency prior to proceeding in such a manner. (2) Anemia: PLAN: The etiology of her anemia appears to be unclear at this time. Again she has received PRBCs. She may need additional PRBCs. She states she was evaluated by gastroenterology. She states she does not want to undergo additional endoscopy procedures at this time. She will need to discuss this with the hospitalist group as well as the recreation attendant supervisor. (3) Acute kidney injury: PLAN: She does have a history of what appears to be chronic renal insufficiency which during this event has markedly worsened. Her creatinine has improved somewhat since receiving PRBCs. She has been evaluated by nephrology. Their input is appreciated. (4) Hypertension: PLAN: Her blood pressure will need to be followed with her medicines adjusted accordingly. (5) Diabetes: QUALIFIERS: Diabetes mellitus type: type 2 PLAN: She will continue evaluation care per internal medicine. Addt'l Comments Overall, from a cardiovascular standpoint, she will continue supportive medical therapy. It may not be unreasonable to consider her for further evaluation of potential underlying CAD with a pharmacologic stress nuclear imaging study. However, it would be reasonable to continue to correct her underlying marked anemia and improve her hemoglobin levels prior to proceeding in such a manner. This note was generated using a voice recognition system and there may be incorrect words, spelling or punctuation that were not noted when reviewing the office note prior to saving.
[2021-08-29] MEDS: Carvedilol 12.5 MG Tablet PO ×2 (08:10→16:50)
[2021-08-29] MEDS: amLODIPine 5 MG Tablet PO (08:10)
--- NOTE | 2021-08-29 11:15 | PN.HOSP_ITS ---
Subjective Subjective Patient seen and examined. She had no complaints this morning and felt well. GI is planning for EGD and colonoscopy. Patient is refusing to have these procedures as she is easier than 2 years ago and does not see why she should have it anymore. I explained to patient that in light of her severe anemia, it warrants doing these procedures to make sure that there is no GI pathology that could be contributing to this. Patient finally agrees to have the scopes and is willing to take the prep for it. Hemoglobin today is 8.1. Creatinine is down to 4.17 and bicarb is 15. Objective Data Objective Data Vital Signs: Vital Signs Temp Pulse Resp BP Pulse Ox 98.3 F 84 17 187/67 H 97 08/29/21 05:03 08/29/21 06:56 08/29/21 05:19 08/29/21 06:55 08/29/21 05:03 Oxygen Delivery Method Room Air Weight: 180 lb Body Mass Index (BMI) 30.9 Intake & Output: Intake and Output for Last 24 Hours 08/27/21 08/28/21 08/29/21 23:59 23:59 23:59 Intake Total 1600 / 1600 954.17 / 1254.17 2437.50 / 2437.50 Balance 1600 / 1600 954.17 / 1254.17 2437.50 / 2437.50 Lab / Micro Data Result Diagrams: 08/29/21 04:40 08/29/21 04:44 Labs: Laboratory Results - last 24 hr 08/27/21 20:00: Crossmatch See Detail 08/28/21 05:40: Diff Path Review Reviewed 08/28/21 05:40: Iron 48 L, TIBC 280, Ferritin 247 08/28/21 11:05: Troponin I High Sens 653 H* 08/28/21 14:49: Troponin I High Sens 587 H* 08/29/21 04:40: WBC 7.2, RBC 2.83 L, Hgb 8.1 L, Hct 26.6 L, MCV 94.0, MCH 28.6, MCHC 30.5 L, RDW Std Deviation 48.5 H, RDW Coeff of Dottie 14.2, Plt Count 218, MPV 9.3, Immature Gran % (Auto) 1.300 H, Neut % (Auto) 61.2, Lymph % (Auto) 24.8, Vermilion % (Auto) 9.6, Eos % (Auto) 2.4, Baso % (Auto) 0.7, Absolute Neuts (auto) 4.4, Absolute Lymphs (auto) 1.78, Nucleated RBC % 0 08/29/21 04:44: Sodium 137, Potassium 4.5, Chloride 114 H, Carbon Dioxide 15.0 L , Anion Gap 8, BUN 51 H, Creatinine 4.17 H, Estim Creat Clear Calc 11.77, Est GFR (MDRD) Af Amer 14 L, Est GFR (MDRD) Non-Af 11 L, BUN/Creatinine Ratio 12.2, Glucose 85, Calcium 7.6 L Micro: Microbiology 08/28/21 11:30 Stool Stool Occult Blood (SIMONE) - Final Occult Blood Positive 08/27/21 19:25 Nasal Secretion SARS-CoV-2 Antigen (Rapid) - Final Radiography Diagnostic Testing: Radiology Impression Echocardiogram 08/28/21 10:37 Interpretation Summary The study was technically difficult. Left ventricular systolic function is normal. The estimated ejection fraction is 60 %. The left atrium is mildly enlarged. Mild diffuse mitral valve thickening. The mitral valve chordae are thickened and/or calcified. Mild-Moderate (1-2+) eccentric mitral valve insufficiency. Mild tricuspid valve insufficiency. There is evidence of diastolic dysfunction. Ordering Physician: Isaiah Brown Referring Physician: Prince Cummins Performed By: Fritz Nevarez RCS Physical Exam Const alert, oriented x3 and no apparent distress General Appearance: cooperative Exam Limitations: no limitations HEENT normocephalic, head/scalp atraumatic, moist oral mucous membranes and oropharynx normal Head and Scalp: normocephalic Eyes PERRL, EOMs intact bilaterally and conjunctivae normal Neck no lymphadenopathy and supple Lymph Lymphatic: no lymphadenopathy noted Resp normal respiratory effort, normal air movement, no retractions, no use of accessory muscles and clear to auscultation bilaterally Cardio regular rate, regular rhythm, S1 normal heart sound, S2 normal heart sound and no murmurs Cardio Narrative: 2/6 mendez Heart Sounds: murmur GI normal to inspection, nondistended, normoactive bowel sounds, soft to palpation, non-tender, non-distended and hepatosplenomegaly Palpation: Negative for rigid Extremity normal to inspection, full ROM and no clubbing, cyanosis or edema Peripheral Pulses: Yes pulses 2+ throughout Skin no rashes or lesions noted Neuro oriented x3, CN's II-XII intact bilaterally and moves all extremities Sensorium / Orientation: awake and alert Psych affect normal Assessment & Plan Assessment/Plan (1) Anemia: (2) Pneumonia: (3) Acute kidney injury: (4) NSTEMI, initial episode of care: PLAN: #Acute on chronic anemia * Hb today is 8.1 * has been transfused with 2 units of PRBCs * ferrritin is 247, was previously in the 800s. iron is low at 48 and TIBC is 280. * GI on board. patient initially refusing EGD and colonoscopy, is now agreeable to doing it. * #AGGIE * Cr is down to 4.17 today. * nephrology on board. Thinks is it likely ATN * being gently hydrated with IVF. * * * #Nonstemi * likely a type 2 nonstemi due to demand ischemia * initial high sensitivity troponin on admission was ~ 500, now trended up to 685. May also be affected by the elevated Cr * 2D echo:EF is 60%, with evidence of diastolic dysfunction and mildly enlarged left atrium. * cardiology on board * #Non anion gap metabolic acidosis * likely due to AGGIE. Is likely due to AGGIE. * nephrology on board * #Community acquired pneumonia * CXR showed a right lower lobe infiltrate * on IV levaquin q48hr. * blood cultures pending. * #Hypertension: on lisinopril and metoprolol as well as HCZ and amlodipine. Hold lisinopril and HCTZ due to AGGIE. #History of asthma: on breathing treatment with bronchodilators #History of diabetes mellitus: * appears to be diet controlled, as she is not on any hypoglycemic agents. * ISS. * Accuchecks ACHS. DVT prophylaxis: SCDs. No anticoagulation due to anemia Charges/Coding Visit Charges Inpatient E&M: 63845 Subs Hosp L2
[2021-08-29] MEDS: Bisacodyl 5 MG Tablet 20 MG PO (14:03)
[2021-08-29] MEDS: Polyethylene Glycol 3350 BOWEL PREP PO (14:07)
--- NOTE | 2021-08-29 15:08 | PCM.PN.REN ---
Documented by User: ART Espinoza 08/29/21 15:45 Subjective Subjective Following for AGGIE on CKD stage 3 No overnight events. No complaints. Patient is drinking bowel prep. Objective Data Objective Data Vital Signs: Vital Signs Temp Pulse Resp BP Pulse Ox 99.0 F 78 20 H 142/42 H 94 08/29/21 11:43 08/29/21 11:43 08/29/21 11:43 08/29/21 11:43 08/29/21 11:43 Oxygen Delivery Method Room Air Weight: 81.647 kg Body Mass Index (BMI) 30.9 Intake & Output: Intake and Output for Last 24 Hours 08/27/21 08/28/21 08/29/21 23:59 23:59 23:59 Intake Total 1600 / 1600 954.17 / 1254.17 2437.50 / 2437.50 Balance 1600 / 1600 954.17 / 1254.17 2437.50 / 2437.50 Lab / Micro Data Result Diagrams: 09/02/21 05:16 09/02/21 05:16 Labs: Laboratory Results - last 24 hr 08/28/21 14:49: Troponin I High Sens 587 H* 08/29/21 04:40: WBC 7.2, RBC 2.83 L, Hgb 8.1 L, Hct 26.6 L, MCV 94.0, MCH 28.6, MCHC 30.5 L, RDW Std Deviation 48.5 H, RDW Coeff of Dottie 14.2, Plt Count 218, MPV 9.3, Immature Gran % (Auto) 1.300 H, Neut % (Auto) 61.2, Lymph % (Auto) 24.8, Mcdonald % (Auto) 9.6, Eos % (Auto) 2.4, Baso % (Auto) 0.7, Absolute Neuts (auto) 4.4, Absolute Lymphs (auto) 1.78, Nucleated RBC % 0 08/29/21 04:44: Sodium 137, Potassium 4.5, Chloride 114 H, Carbon Dioxide 15.0 L, Anion Gap 8, BUN 51 H, Creatinine 4.17 H, Estim Creat Clear Calc 11.77, Est GFR (MDRD) Af Amer 14 L, Est GFR (MDRD) Non-Af 11 L, BUN/Creatinine Ratio 12.2, Glucose 85, Calcium 7.6 L Micro: Microbiology 08/28/21 11:30 Stool Stool Occult Blood (SIMONE) - Final Occult Blood Positive 08/27/21 19:25 Nasal Secretion SARS-CoV-2 Antigen (Rapid) - Final Physical Exam Narrative General: NAD HEENT: Normocephalic, atraumatic. Mucous membrane dry. There is no mucosal erythema. PERRLA, EOMI. Neck: Supple, no JVD. Heart: Normal S1, S2. No rubs, murmurs or gallops. Lungs: clear Abdomen: Normal bowel sounds, soft, mildly tender diffusely without guarding or rebound. Extremity: No clubbing, cyanosis, or edema. Neurological: No focal neurologic deficit. Skin: Warm and dry without rash. Assessment & Plan Assessment/Plan (1) AGGIE (acute kidney injury): PLAN: AGGIE is most likely related to volume depletion related to decreased intake in the setting of CAP. The patient also continued to take HARRISON inhibitor and HCTZ until the day of presentation. There is no evidence of obstruction on CT of the abdomen. More than likely, the patient has ischemic ATN at this point. Fractional excretion of sodium of more than 1% on 08/27/21 is consistent with ATN. Creatinine 5.88 mg/dL on admission, 08/27/2021, and today creatinine has improved to 4.17 mg/dL. UOP is not documented. Recommend strict I&O and/or daily weights. Continue IVF as ordered There is no urgent need for kidney replacement therapy today. The patient is not hyperkalemic. There is no significant or refractory acidosis at this point either. We will recheck renal function again in a.m. Current medications are reviewed and are appropriately dosed for the current estimated renal function. The patient likely has underlying chronic kidney disease stage 3. Elevated Creatinine since 2019, and serum creatinine from 03/08/20 1.33 mg/dL. Past UAs showed 100 protein, negative blood. This admission UA showed 50 occult blood and 500 protein. (2) Hypertension: PLAN: Continue to hold lisinopril and furosemide for now because of AGGIE. Continue amlodipine and carvedilol 12.5mg bid. Bps elevated. Will increase amlodipine 10mg daily. She is ordered hydralazine prn. (3) Community acquired pneumonia: PLAN: The patient is being treated with levaquin. No need to adjust the dosage of these antibiotics for renal function. (4) Anemia: PLAN: Hgb 5.7 08/28, received 2units PRBC. today hgb 8.1. The patient is being followed by GI service and is being prepped for EGD/Colonoscopy. (5) Type II diabetes mellitus: QUALIFIERS: Diabetes mellitus complication status: with hyperglycemia Diabetes mellitus mcc insulin use: without terminal computer operator use Qualified Code(s): E11.65 - Type 2 diabetes mellitus with hyperglycemia Documented by User: Dr. Jelani Allison MD 09/02/21 09:23 Objective Data Lab / Micro Data Result Diagrams: 09/02/21 05:16 09/02/21 05:16
[2021-08-29] MEDS: levoFLOXacin IV 250 MG/50 ML BAG 50 MG IV (22:15)
[2021-08-30] VITALS (23 sets, daily range): BP systolic 130–175; BP diastolic 40–87; PULSE 76–91; RESP 14–24; TEMP 36.6–37.7; O2SAT 91–100
[2021-08-30] MEDS: 0.9% Normal Saline 1,000 ML 125 ML IV ×4 (01:12→23:16)
[2021-08-30] MEDS: Ipratropium/Albuterol Sulfate 3 ML AMPUL.NEB INHALATION ×4 (01:36→19:35)
--- NOTE | 2021-08-30 05:55 | EKG12_ITS ---
Test Reason : AM EKG Blood Pressure : / mmHG Vent. Rate : 080 BPM Atrial Rate : 080 BPM P-R Int : 180 ms QRS Dur : 082 ms QT Int : 388 ms P-R-T Axes : 043 079 -50 degrees QTc Int : 447 ms Normal sinus rhythm Septal infarct , age undetermined T wave abnormality, consider inferior ischemia Abnormal ECG When compared with ECG of 27-AUG-2021 19:16, No significant change was found Confirmed by SRIKANTH PIZARRO, RENE ([id number]), acquisitions editor ADRIÁN BURRIS ([id number]) on 08/31/2021 12:50:16 PM Referred By: EMIL Confirmed By:JHONY DUKE MD
[2021-08-30 06:57] LABS: Absolute Lymphocyte Count 1.74 X10^3/uL (0.83-4.51); Absolute Neutrophil Count 3.1 X10^3/uL (2.0-7.7); Basophil# 0.04 X10^3/uL; Basophil% 0.7 % (0-1); Eosinophil# 0.14 X10^3/uL; Eosinophils% 2.4 % (0-5); Hematocrit 23.3 % (37-47); Hemoglobin 7.3 g/dL (12.0-15.0); Lymphocyte # 1.74 X10^3/ul (0.83-4.51); Lymphocyte % 30.2 % (19-41); Mean Corp Hgb Conc 31.3 g/dL (32-36); Mean Corpuscular Hgb 28.7 pg (27.0-32.0); Mean Corpuscular Volume 91.7 fL (81-99); Mean Platelet Vol. 9.2 fl (6.2-12.0); Monocyte# 0.67 X10^3/uL; Monocyte% 11.6 % (0-10); NRBC Flagged by Analyzer 0.3 % (0-5); Neutrophil # 3.13 X10^3/uL (2.7-7.7); Neutrophil % 54.2 % (47-70); Platelet Count 234 K/mm3 (150-450); RBC Distribution Width CV 14.1 % (11.6-14.6); RBC Distribution Width SD 47.6 fl (35.1-43.9); Red Blood Count 2.54 M/mm3 (4.2-5.4); White Blood Count 5.8 K/mm3 (4.4-11.0)
[2021-08-30 07:06] LABS: Anion Gap 11 (5-15); BUN 55 mg/dL (7-18); BUN/Creat Ratio 10.1 RATIO (10-20); Chloride 116 mmol/L (98-107); Creatinine, Serum 5.44 mg/dL (0.55-1.02); EST Glomerular Filtration Rate 8 mL/min (>60); Est Glom Filt Rate - Afr Amer 10 mL/min (>60); Estimated Creatinine Clearance 9.02 ml/min; Glucose 66 mg/dL (74-106); Potassium 4.1 mmol/L (3.5-5.1); Sodium Level 143 mmol/L (136-145)
[2021-08-30 08:11] LABS: Bedside Glucose 73 mg/dL (70-110)
[2021-08-30] MEDS: hydrALAZINE 20 MG/ML Vial 5 MG IV ×2 (08:32→18:00)
[2021-08-30] MEDS: 0.9% Saline Lock 10 ML Syringe IV ×2 (08:33→18:00)
--- NOTE | 2021-08-30 09:12 | PCM.PN.CARD ---
Subjective Subjective The patient is awake and alert. She denies any ongoing chest discomfort, difficulty breathing, or obvious palpitations. Objective Data Vital Signs: Vital Signs Temp Pulse Resp BP Pulse Ox 99.9 F H 80 16 175/59 H 97 08/30/21 08:24 08/30/21 08:32 08/30/21 08:24 08/30/21 08:24 08/30/21 08:24 Oxygen Delivery Method Room Air Weight: 180 lb 0.013 oz Body Mass Index (BMI) 30.9 Intake & Output: Intake and Output for Last 24 Hours 08/28/21 08/29/21 08/30/21 23:59 23:59 23:59 Intake Total 954.17 / 1254.17 6739.17 / 7239.17 1525.00 / 1525.00 Balance 954.17 / 1254.17 6739.17 / 7239.17 1525.00 / 1525.00 Lab / Micro Data Result Diagrams: 08/30/21 05:30 08/30/21 05:30 Labs: Laboratory Results - last 24 hr 08/30/21 05:30: WBC 5.8, RBC 2.54 L, Hgb 7.3 L, Hct 23.3 L, MCV 91.7, MCH 28.7, MCHC 31.3 L, RDW Std Deviation 47.6 H, RDW Coeff of Dottie 14.1, Plt Count 234, MPV 9.2, Immature Gran % (Auto) 0.900, Neut % (Auto) 54.2, Lymph % (Auto) 30.2, [place] % (Auto) 11.6 H, Eos % (Auto) 2.4, Baso % (Auto) 0.7, Absolute Neuts (auto) 3.1, Absolute Lymphs (auto) 1.74, Nucleated RBC % 0.3 08/30/21 05:30: Sodium 143, Potassium 4.1, Chloride 116 H, Carbon Dioxide 16.0 L, Anion Gap 11, BUN 55 H, Creatinine 5.44 H, Estim Creat Clear Calc 9.02, Est GFR (MDRD) Af Amer 10 L, Est GFR (MDRD) Non-Af 8 L, BUN/Creatinine Ratio 10.1, Glucose 66 L, Calcium 8.0 L 08/30/21 06:56: POC Glucose 73 Cardiology Labs/Tests 08/30/21 05:30: WBC 5.8, RBC 2.54 L, Hgb 7.3 L, Hct 23.3 L, MCV 91.7, MCH 28.7, MCHC 31.3 L, Plt Count 234, MPV 9.2, Immature Gran % (Auto) 0.900, Neut % (Auto) 54.2, Lymph % (Auto) 30.2, [place] % (Auto) 11.6 H, Eos % (Auto) 2.4, Baso % (Auto) 0.7, Absolute Neuts (auto) 3.1, Nucleated RBC % 0.3 08/30/21 05:30: Sodium 143, Potassium 4.1, Chloride 116 H, Carbon Dioxide 16.0 L, Anion Gap 11, BUN 55 H, Creatinine 5.44 H, Est GFR (MDRD) Af Amer 10 L, Est GFR (MDRD) Non-Af 8 L, BUN/Creatinine Ratio 10.1, Glucose 66 L, Calcium 8.0 L Rhythm: Sinus rhythm; an episode appearing compatible with an ectopic atrial rhythm/tachycardia Physical Exam Const alert, oriented x3 and no apparent distress Orientation / Consciousness: awake HEENT normocephalic, head/scalp atraumatic and hearing grossly normal bilaterally Eyes PERRL, EOMs intact bilaterally and conjunctivae normal Neck full ROM, supple and no JVD Chest inspection of chest normal Resp normal respiratory effort and clear to auscultation bilaterally Cardio regular rate, regular rhythm, S1 normal heart sound and S2 normal heart sound GI normal to inspection, nondistended, normoactive bowel sounds Extremity no pedal edema Skin no rashes or lesions noted Neuro oriented x3 and moves all extremities Psych mental status grossly normal Assessment & Plan Assessment/Plan (1) NSTEMI, initial episode of care: PLAN: The patient has abnormal cardiac enzymes which have raise concern of a non-ST segment elevation NC. At the moment the patient does not appear to have any acute coronary syndrome symptoms nor does she have any acute ECG changes. She does not appear to have any left ventricular wall motion abnormalities. Thus there are concerns that her abnormal cardiac enzymes concerning for non-ST segment elevation NC may be a type II event brought out by her marked anemia and marked renal insufficiency. At the present time she will continue to be monitored. Is not unreasonable to continue medical therapy as deemed appropriate. She has received PRBCs. Her hemoglobin has increased. However, her hemoglobin has subsequently decreased. She may need additional PRBCs to assist with her oxygen carrying capacity. Over time consideration can be given as to whether she develops the need for additional noninvasive or invasive cardiovascular testing. However it be reasonable to further evaluate and correct her underlying anemia and renal insufficiency prior to proceeding in such a manner. (2) Cardiac dysrhythmia, unspecified: PLAN: She did have what appeared to be a brief episode of an ectopic atrial rhythm/tachycardia. She appeared to be without obvious symptoms or hemodynamic compromise. At the present time she will continue medical therapy. This will include increasing her beta-nat dose as long as her heart rate and blood pressure tolerate. (3) Anemia: PLAN: The etiology of her anemia appears to be unclear at this time. Again she has received PRBCs. She may need additional PRBCs. She states she was evaluated by gastroenterology. She initially declined further gastrointestinal evaluation. However today she states she is going to proceed with such evaluation for her anemia. If there is no obvious source of anemia then she may also need evaluation by hematology to assist with her diagnosis and care. (4) Acute kidney injury: PLAN: She does have a history of what appears to be chronic renal insufficiency which during this event has markedly worsened. Her creatinine initially improved somewhat since receiving PRBCs. However, as her hemoglobin declined her creatinine level has increased again. She has been evaluated by nephrology. Their input is appreciated. (5) Hypertension: PLAN: Her blood pressure will need to be followed with her medicines adjusted accordingly. (6) Diabetes: QUALIFIERS: Diabetes mellitus type: type 2 PLAN: She will continue evaluation care per internal medicine. Addt'l Comments The patient denies symptoms considered classic for angina pectoris, CHF / pulmonary edema (with respect to orthopnea / PND), ongoing palpitations, or near syncope / syncope.
--- NOTE | 2021-08-30 09:40 | COLBX_PTH ---
PATIENT: NATALI KINSEY LOC: [facility] U#:[id number] AGE/SX: 66/F ROOM: [facility] RE08/27/[address]: Dr. Tommy Soto DO : 1955 BED: 1 DIS: 09/06/2021 SPEC #: [id number] RECD: 08/30/21 11:34 STATUS: MAHESH RETavo #: [id number] TASHA: 08/30/21 09:[address]: Bebeto Trimble DEPT: SURGICAL PATHOLOGY RECD BY: Kimberly Rubin ENTERED: 08/30/21 12:17 SP TYPE: COLON BX OTHR DR: DO Dr. Nayla Stratton MD Dr. Natthavat Tanphaichitr, MD Dr. Paul Moodispaw, MD Dr. Paul Nielsen, MD Tissues: Duodenum, NOS Procedures: Surgery Specimen Level IV HEADER OPERATION: Colonoscopy, EGD ([facility] PRE-OP DIAGNOSIS: Abdominal pain, anemia TISSUE SUBMITTED: Duodenum biopsy MICROSCOPIC DIAGNOSIS Duodenum, biopsy: Focal gastric metaplasia AM:joseph 08/31/2021 MICROSCOPIC DESCRIPTION Slides are reviewed. GROSS DESCRIPTION Received in fixative is one container labeled with the patient's name and designated duodenum. The specimen consists of multiple irregular fragments of light cullen soft tissue that in aggregate measure 1 x 0.7 x 0.1 cm. The specimen is totally submitted in one cassette. / AM:joseph 08/30/21 TC:5 CPT: 02723
[2021-08-30] MEDS: Dextrose 5%/0.9% NaCl 1,000 ML 125 ML IV (09:45)
--- NOTE | 2021-08-30 11:19 | OP.COLON_ITS ---
Patient Name: Aydee Chaidez Procedure Date: 08/30/2021 10:47 AM Date of : 1955 Age: 66 Procedure: Colonoscopy Indications: Iron deficiency anemia Providers: Bebeto Trimble DO Medicines: See the Anesthesia note for documentation of the administered medications Patient Profile: Last Colonoscopy: 3 years ago. Complications: No immediate complications. Procedure: Pre-Anesthesia Assessment: - Prior to the procedure, a History and Physical was performed, and patient medications and allergies were reviewed. The patient is competent. The risks and benefits of the procedure and the sedation options and risks were discussed with the patient. All questions were answered and informed consent was obtained. Patient identification and proposed procedure were verified by the physician in the pre-procedure area. Mental Status Examination: alert and oriented. Airway Examination: normal oropharyngeal airway and neck mobility. Respiratory Examination: clear to auscultation. CV Examination: normal. Prophylactic Antibiotics: The patient does not require prophylactic antibiotics. Prior Anticoagulants: The patient has taken no previous anticoagulant or antiplatelet agents. After reviewing the risks and benefits, the patient was deemed in satisfactory condition to undergo the procedure. The anesthesia plan was to use moderate sedation / analgesia (conscious sedation). Immediately prior to administration of medications, the patient was re-assessed for adequacy to receive sedatives. The heart rate, respiratory rate, oxygen saturations, blood pressure, adequacy of pulmonary ventilation, and response to care were monitored throughout the procedure. The physical status of the patient was re-assessed after the procedure. After I obtained informed consent, the scope was passed under direct vision. Throughout the procedure, the patient's blood pressure, pulse, and oxygen saturations were monitored continuously. The Colonoscope was introduced through the anus and advanced to the terminal ileum. Moderate Sedation: Moderate (conscious) sedation was administered by the endoscopy nurse and supervised by the endoscopist. The patient's oxygen saturation, heart rate, blood pressure and response to care were monitored. Total physician intraservice time was 15 minutes. Scope In: 10:52:24 AM Scope Withdrawal Time 0 hours 10 minutes 9 seconds Scope Out: 11:11:04 AM Total Procedure Duration Time 0 hours 18 minutes 40 seconds Findings: The perianal and digital rectal examinations were normal. Many small and large-mouthed diverticula were found in the sigmoid colon, descending colon and splenic flexure. No additional abnormalities were found on retroflexion. Impression: - Diverticulosis in the sigmoid colon, in the descending colon and at the splenic flexure. - No specimens collected. Recommendation: - Discharge patient to home. - Resume previous diet. - Continue present medications. - Repeat colonoscopy in 5 years for surveillance. - Return to GI office in 2 weeks. Procedure Code(s): --- Professional --- 34644, Colonoscopy, flexible; diagnostic, including collection of specimen(s) by brushing or washing, when performed (separate procedure) G0500, Moderate sedation services provided by the same physician or other qualified health furnace caretaker performing a gastrointestinal endoscopic service that sedation supports, requiring the presence of an independent trained observer to assist in the monitoring of the patient's level of consciousness and physiological status; initial 15 minutes of intra-service time; patient age 5 years or older (additional time may be reported with 10071, as appropriate) CPT copyright 2017 [employer] [place] [employer]. All rights reserved. The codes documented in this report are preliminary and upon aircraft powerplant repairer review may be revised to meet current compliance requirements. Bebeto Trimble DO 08/30/2021 11:19:33 AM This report has been signed electronically. Number of Addenda: 1 Note Initiated On: 08/30/2021 10:47 AM Addendum Number: 1 Addendum Date: 05/22/2022 7:19:28 AM MAC was used instead of moderate sedation for the patient. Bebeto Trimble DO 05/22/2022 7:19:33 AM This report has been signed electronically.
--- NOTE | 2021-08-30 11:20 | OP.CCLET_ITS ---
05/22/2022 Prince Cummins Re : Colonoscopy procedure for Aydee Chaidez Dear Dr. Cummins This procedure was performed on August. My impressions and recommendations are as follows: Impressions : - Diverticulosis in the sigmoid colon, in the descending colon and at the splenic flexure. - No specimens collected. Recommendations : - Discharge patient to home. - Resume previous diet. - Continue present medications. - Repeat colonoscopy in 5 years for surveillance. - Return to GI office in 2 weeks. My findings are described in the full procedure note, which is enclosed. If I can be of further assistance, please feel free to contact me at . Sincerely, Bebeto Trimble, 08/30/2021 11:19:33 AM This report has been signed electronically.
[2021-08-30 12:26] LABS: Bedside Glucose 109 mg/dL (70-110)
--- NOTE | 2021-08-30 12:47 | PCM.PN.REN ---
Documented by User: ART Espinoza 08/30/21 12:56 Subjective Subjective recently returned from procedure. No overnight events. No complaints except that she is asking when she is able to go home. Objective Data Objective Data Vital Signs: Vital Signs Temp Pulse Resp BP Pulse Ox 99 F 77 16 141/65 H 100 08/30/21 11:40 08/30/21 11:40 08/30/21 11:40 08/30/21 11:40 08/30/21 11:40 Oxygen Delivery Method Room Air Weight: 81.647 kg Body Mass Index (BMI) 30.9 Intake & Output: Intake and Output for Last 24 Hours 08/28/21 08/29/21 08/30/21 23:59 23:59 23:59 Intake Total 954.17 / 1254.17 6739.17 / 7239.17 1635.42 / 1635.42 Balance 954.17 / 1254.17 6739.17 / 7239.17 1635.42 / 1635.42 Lab / Micro Data Result Diagrams: 09/02/21 05:16 09/02/21 05:16 Labs: Laboratory Results - last 24 hr 08/30/21 05:30: WBC 5.8, RBC 2.54 L, Hgb 7.3 L, Hct 23.3 L, MCV 91.7, MCH 28.7, MCHC 31.3 L, RDW Std Deviation 47.6 H, RDW Coeff of Dottie 14.1, Plt Count 234, MPV 9.2, Immature Gran % (Auto) 0.900, Neut % (Auto) 54.2, Lymph % (Auto) 30.2, [place] % (Auto) 11.6 H, Eos % (Auto) 2.4, Baso % (Auto) 0.7, Absolute Neuts (auto) 3.1, Absolute Lymphs (auto) 1.74, Nucleated RBC % 0.3 08/30/21 05:30: Sodium 143, Potassium 4.1, Chloride 116 H, Carbon Dioxide 16.0 L, Anion Gap 11, BUN 55 H, Creatinine 5.44 H, Estim Creat Clear Calc 9.02, Est GFR (MDRD) Af Amer 10 L, Est GFR (MDRD) Non-Af 8 L, BUN/Creatinine Ratio 10.1, Glucose 66 L, Calcium 8.0 L 08/30/21 06:56: POC Glucose 73 08/30/21 12:21: POC Glucose 109 Micro: Microbiology 08/28/21 11:30 Stool Stool Occult Blood (SIMONE) - Final Occult Blood Positive 08/27/21 19:25 Nasal Secretion SARS-CoV-2 Antigen (Rapid) - Final Physical Exam Narrative General: NAD HEENT: Normocephalic, atraumatic. Mucous membrane dry. There is no mucosal erythema. PERRLA, EOMI. Neck: Supple, no JVD. Heart: Normal S1, S2. No rubs, murmurs or gallops. Lungs: clear Abdomen: Normal bowel sounds, soft Extremity: No clubbing, cyanosis, or edema. Neurological: No focal neurologic deficit. Skin: Warm and dry without rash. Assessment & Plan Assessment/Plan (1) AGGIE (acute kidney injury): PLAN: AGGIE is most likely related to volume depletion related to decreased intake in the setting of CAP. The patient also continued to take HARRISON inhibitor and HCTZ until the day of presentation. There is no evidence of obstruction on CT of the abdomen. More than likely, the patient has ischemic ATN at this point. Fractional excretion of sodium of more than 1% on 08/27/21 is consistent with ATN. Creatinine 5.88 mg/dL on admission 08/27/2021, SCr improved to 4.17 mg/dL 08/29 but today SCr is up to 5.44mg/dL. UOP is not documented, however patient states she urinates often and at times is incontinent. Recommend strict I&O and/or daily weights. Patient declined Gudino Continue IVF as ordered At this point there is no urgent need for EXECUTIVE TALENT ACQUISITION CONSULTANT today, patient is not hyperkalemic, acid-base acceptable. Patient is not hypervolemic. Current medications are reviewed and are appropriately dosed for the current estimated renal function. The patient likely has underlying chronic kidney disease stage 3. Elevated Creatinine since 2019, and serum creatinine from 03/08/20 1.33 mg/dL. Past UAs showed 100 protein, negative blood. This admission UA showed 50 occult blood and 500 protein. Attempted to explain to patient that should renal function continue to worsen, urine output declines, patient becomes hyperkalemic she may need EXECUTIVE TALENT ACQUISITION CONSULTANT. Patient is asking when she can be discharged, alluding to possibly leaving hospital AMA. Discussed with patient advise against leaving hospital as renal function is worse today and may continue to worsen. Will check labs tonight. Labs ordered for the morning. (2) Hypertension: PLAN: Continue to hold lisinopril and furosemide for now because of AGGIE. Continue amlodipine and carvedilol. She is ordered hydralazine prn. Blood pressures have improved (3) Community acquired pneumonia: PLAN: The patient is being treated with levaquin. No need to adjust the dosage of these antibiotics for renal function. (4) Anemia: PLAN: Hgb 5.7 08/28, received 2units PRBC. today hgb 8.1. The patient is being followed by GI service for EGD/Colonoscopy. (5) Type II diabetes mellitus: QUALIFIERS: Diabetes mellitus complication status: with hyperglycemia Diabetes mellitus custodial insulin use: without watcher automat long goods use Qualified Code(s): E11.65 - Type 2 diabetes mellitus with hyperglycemia Documented by User: Dr. Jelani Allison MD 09/02/21 09:22 Objective Data Lab / Micro Data Result Diagrams: 09/02/21 05:16 09/02/21 05:16
[2021-08-30] MEDS: amLODIPine 10 MG Tablet PO (13:23)
--- NOTE | 2021-08-30 14:11 | PN.HOSP_ITS ---
Subjective Subjective Patient seen and examined. She had no complaints. SHe was able to tolerate the prep today and is having EGD and colonoscopy today. Hb is down to 7.3. Objective Data Objective Data Vital Signs: Vital Signs Temp Pulse Resp BP Pulse Ox 97.8 F 76 20 H 175/71 H 97 08/30/21 13:09 08/30/21 13:09 08/30/21 14:02 08/30/21 13:09 08/30/21 13:09 Oxygen Delivery Method Room Air Weight: 180 lb 0.013 oz Body Mass Index (BMI) 30.9 Intake & Output: Intake and Output for Last 24 Hours 08/28/21 08/29/21 08/30/21 23:59 23:59 23:59 Intake Total 954.17 / 1254.17 6739.17 / 7239.17 1635.42 / 1635.42 Balance 954.17 / 1254.17 6739.17 / 7239.17 1635.42 / 1635.42 Lab / Micro Data Result Diagrams: 08/30/21 05:30 08/30/21 05:30 Labs: Laboratory Results - last 24 hr 08/30/21 05:30: WBC 5.8, RBC 2.54 L, Hgb 7.3 L, Hct 23.3 L, MCV 91.7, MCH 28.7, MCHC 31.3 L, RDW Std Deviation 47.6 H, RDW Coeff of Dottie 14.1, Plt Count 234, MPV 9.2, Immature Gran % (Auto) 0.900, Neut % (Auto) 54.2, Lymph % (Auto) 30.2, [place] % (Auto) 11.6 H, Eos % (Auto) 2.4, Baso % (Auto) 0.7, Absolute Neuts (auto) 3.1, Absolute Lymphs (auto) 1.74, Nucleated RBC % 0.3 08/30/21 05:30: Sodium 143, Potassium 4.1, Chloride 116 H, Carbon Dioxide 16.0 L , Anion Gap 11, BUN 55 H, Creatinine 5.44 H, Estim Creat Clear Calc 9.02, Est GFR (MDRD) Af Amer 10 L, Est GFR (MDRD) Non-Af 8 L, BUN/Creatinine Ratio 10.1, Glucose 66 L, Calcium 8.0 L 08/30/21 06:56: POC Glucose 73 08/30/21 12:21: POC Glucose 109 Micro: Microbiology 08/28/21 11:30 Stool Stool Occult Blood (SIMONE) - Final Occult Blood Positive 08/27/21 19:25 Nasal Secretion SARS-CoV-2 Antigen (Rapid) - Final Physical Exam Const alert, oriented x3 and no apparent distress General Appearance: cooperative Exam Limitations: no limitations HEENT normocephalic, head/scalp atraumatic, moist oral mucous membranes and oropharynx normal Head and Scalp: normocephalic Eyes PERRL, EOMs intact bilaterally and conjunctivae normal Neck no lymphadenopathy and supple Lymph Lymphatic: no lymphadenopathy noted Resp normal respiratory effort, normal air movement, no retractions, no use of accessory muscles and clear to auscultation bilaterally Auscultation: wheezes Cardio regular rate, regular rhythm, S1 normal heart sound, S2 normal heart sound and no murmurs Heart Sounds: murmur GI normal to inspection, nondistended, normoactive bowel sounds, soft to palpation, non-tender, non-distended and hepatosplenomegaly Palpation: Negative for rigid Extremity normal to inspection, full ROM and no clubbing, cyanosis or edema Peripheral Pulses: Yes pulses 2+ throughout Skin no rashes or lesions noted Neuro oriented x3, CN's II-XII intact bilaterally and moves all extremities Sensorium / Orientation: awake and alert Psych affect normal Assessment & Plan Assessment/Plan (1) Anemia: (2) Pneumonia: (3) Acute kidney injury: (4) NSTEMI, initial episode of care: PLAN: #Acute on chronic anemia * Hb today is 7.3 * has been transfused with 2 units of PRBCs * ferrritin is 247, was previously in the 800s. iron is low at 48 and TIBC is 280. * GI on board. * colonoscopy today showed diverticulosis in the sigmoid, descending colon and splenic flexure. * EGD showed duodenal ulcers with no active bleeding and by GI, anemia may be due to chronic otitis. To have capsule endoscopy on outpatient basis. * #AGGIE * Cr is down 5.44. * nephrology on board. Thinks is it likely ATN * being gently hydrated with IVF. * will await further neuro rec's as she may need dialysis if kidney function doesnt improve * * #Nonstemi * likely a type 2 nonstemi due to demand ischemia * initial high sensitivity troponin on admission was ~ 500, now trended up to 685. May also be affected by the elevated Cr * 2D echo:EF is 60%, with evidence of diastolic dysfunction and mildly enlarged left atrium. * cardiology on board * #Non anion gap metabolic acidosis * likely due to AGGIE. * nephrology on board * #Community acquired pneumonia * CXR showed a right lower lobe infiltrate * on IV levaquin q48hr. * blood cultures pending. * #Hypertension: on lisinopril and metoprolol as well as HCZ and amlodipine. Hold lisinopril and HCTZ due to AGGIE. #History of asthma: on breathing treatment with bronchodilators #History of diabetes mellitus: * appears to be diet controlled, as she is not on any hypoglycemic agents. * ISS. * Accuchecks ACHS. DVT prophylaxis: SCDs. No anticoagulation due to anemia Charges/Coding Visit Charges Inpatient E&M: 40525 Subs Hosp L3
[2021-08-30 17:50] LABS: Bedside Glucose 126 mg/dL (70-110)
[2021-08-30] MEDS: Carvedilol 25 MG Tablet PO (18:00)
[2021-08-30 18:44] LABS: Anion Gap 7 (5-15); BUN 50 mg/dL (7-18); BUN/Creat Ratio 9.2 RATIO (10-20); Chloride 117 mmol/L (98-107); Creatinine, Serum 5.42 mg/dL (0.55-1.02); EST Glomerular Filtration Rate 8 mL/min (>60); Est Glom Filt Rate - Afr Amer 10 mL/min (>60); Estimated Creatinine Clearance 9.05 ml/min; Glucose 133 mg/dL (74-106); Phosphorus 5.6 mg/dL (2.5-4.9); Potassium 4.4 mmol/L (3.5-5.1); Sodium Level 141 mmol/L (136-145)
[2021-08-30 23:16] LABS: Bedside Glucose 114 mg/dL (70-110)
[2021-08-31] VITALS (15 sets, daily range): BP systolic 137–168; BP diastolic 55–73; PULSE 75–92; RESP 14–26; TEMP 36.8–37.2; O2SAT 95–98
[2021-08-31] MEDS: Ipratropium/Albuterol Sulfate 3 ML AMPUL.NEB INHALATION ×3 (05:21→19:46)
--- NOTE | 2021-08-31 05:56 | NURSING ---
Pt was complaining of SOB this nurse assessed patient and lungs sound diminished anterior and posterior. Sp02 95% called respiratory about given patient a breathing treatment. Patient has had loose diarrhea throughout this shift. So this nurse educated patient on the importance of having the bowles in so we can accurately measure output and she agreed. 16Fr Bowles inserted at 5am this morning no urine noted during this time. Bladder scan 80 ml in bladder.
[2021-08-31 06:16] LABS: Absolute Lymphocyte Count 1.59 X10^3/uL (0.83-4.51); Absolute Neutrophil Count 4.1 X10^3/uL (2.0-7.7); Basophil# 0.03 X10^3/uL; Basophil% 0.5 % (0-1); Eosinophils% 1.5 % (0-5); Hemoglobin 7.7 g/dL (12.0-15.0); Lymphocyte # 1.59 X10^3/ul (0.83-4.51); Lymphocyte % 24.5 % (19-41); Mean Corp Hgb Conc 30.8 g/dL (32-36); Mean Corpuscular Hgb 28.3 pg (27.0-32.0); Mean Corpuscular Volume 91.9 fL (81-99); Mean Platelet Vol. 8.9 fl (6.2-12.0); Monocyte# 0.63 X10^3/uL; Monocyte% 9.7 % (0-10); NRBC Flagged by Analyzer 0 % (0-5); Neutrophil # 4.07 X10^3/uL (2.7-7.7); Neutrophil % 62.9 % (47-70); Platelet Count 242 K/mm3 (150-450); RBC Distribution Width SD 47.3 fl (35.1-43.9); Red Blood Count 2.72 M/mm3 (4.2-5.4); White Blood Count 6.5 K/mm3 (4.4-11.0)
[2021-08-31 06:41] LABS: Anion Gap 9 (5-15); BUN 52 mg/dL (7-18); BUN/Creat Ratio 9.7 RATIO (10-20); Calcium,Total 7.7 mg/dL (8.5-10.1); Chloride 116 mmol/L (98-107); Creatinine, Serum 5.35 mg/dL (0.55-1.02); EST Glomerular Filtration Rate 9 mL/min (>60); Est Glom Filt Rate - Afr Amer 10 mL/min (>60); Estimated Creatinine Clearance 9.17 ml/min; Glucose 93 mg/dL (74-106); Potassium 4.6 mmol/L (3.5-5.1); Sodium Level 141 mmol/L (136-145)
[2021-08-31] MEDS: 0.9% Normal Saline 1,000 ML 125 ML IV ×2 (06:52→15:07)
[2021-08-31 07:01] LABS: Bedside Glucose 93 mg/dL (70-110)
[2021-08-31 07:02] LABS: Phosphorus 5.4 mg/dL (2.5-4.9)
--- NOTE | 2021-08-31 08:02 | PN.CARD_ITS ---
Subjective Subjective The patient remains without acute cardiovascular symptoms during her GI evaluation. Objective Data Vital Signs: Vital Signs Temp Pulse Resp BP Pulse Ox 98.6 F 75 20 H 163/73 H 95 08/31/21 05:00 08/31/21 07:31 08/31/21 05:22 08/31/21 05:00 08/31/21 05:00 Oxygen Delivery Method Room Air Weight: 180 lb 0.013 oz Body Mass Index (BMI) 30.9 Intake & Output: Intake and Output for Last 24 Hours 08/29/21 08/30/21 08/31/21 23:59 23:59 23:59 Intake Total 6739.17 / 7239.17 3693.75 / 3693.75 950 / 950 Output Total 400 / 400 Balance 6739.17 / 7239.17 3293.75 / 3293.75 950 / 950 Lab / Micro Data Result Diagrams: 08/31/21 05:35 08/31/21 05:35 Labs: Laboratory Results - last 24 hr 08/30/21 06:56: POC Glucose 73 08/30/21 12:21: POC Glucose 109 08/30/21 17:30: Sodium 141, Potassium 4.4, Chloride 117 H, Carbon Dioxide 17.0 L , Anion Gap 7, BUN 50 H, Creatinine 5.42 H, Estim Creat Clear Calc 9.05, Est GFR (MDRD) Af Amer 10 L, Est GFR (MDRD) Non-Af 8 L, BUN/Creatinine Ratio 9.2 L, Glucose 133 H, Calcium 8.0 L, Phosphorus 5.6 H 08/30/21 17:45: POC Glucose 126 H 08/30/21 21:18: POC Glucose 114 H 08/31/21 05:35: WBC 6.5, RBC 2.72 L, Hgb 7.7 L, Hct 25.0 L, MCV 91.9, MCH 28.3, MCHC 30.8 L, RDW Std Deviation 47.3 H, RDW Coeff of Dottie 14.0, Plt Count 242, MPV 8.9, Immature Gran % (Auto) 0.900, Neut % (Auto) 62.9, Lymph % (Auto) 24.5, [place] % (Auto) 9.7, Eos % (Auto) 1.5, Baso % (Auto) 0.5, Absolute Neuts (auto) 4.1, Absolute Lymphs (auto) 1.59, Nucleated RBC % 0 08/31/21 05:35: Sodium 141, Potassium 4.6, Chloride 116 H, Carbon Dioxide 16.0 L , Anion Gap 9, BUN 52 H, Creatinine 5.35 H, Estim Creat Clear Calc 9.17, Est GFR (MDRD) Af Amer 10 L, Est GFR (MDRD) Non-Af 9 L, BUN/Creatinine Ratio 9.7 L, Glucose 93, Calcium 7.7 L 08/31/21 05:35: Phosphorus 5.4 H 08/31/21 06:47: POC Glucose 93 Cardiology Labs/Tests 08/30/21 17:30: Sodium 141, Potassium 4.4, Chloride 117 H, Carbon Dioxide 17.0 L , Anion Gap 7, BUN 50 H, Creatinine 5.42 H, Est GFR (MDRD) Af Amer 10 L, Est GFR (MDRD) Non-Af 8 L, BUN/Creatinine Ratio 9.2 L, Glucose 133 H, Calcium 8.0 L, Phosphorus 5.6 H 08/31/21 05:35: WBC 6.5, RBC 2.72 L, Hgb 7.7 L, Hct 25.0 L, MCV 91.9, MCH 28.3, MCHC 30.8 L, Plt Count 242, MPV 8.9, Immature Gran % (Auto) 0.900, Neut % (Auto) 62.9, Lymph % (Auto) 24.5, Caroline % (Auto) 9.7, Eos % (Auto) 1.5, Baso % (Auto) 0.5, Absolute Neuts (auto) 4.1, Nucleated RBC % 0 08/31/21 05:35: Sodium 141, Potassium 4.6, Chloride 116 H, Carbon Dioxide 16.0 L , Anion Gap 9, BUN 52 H, Creatinine 5.35 H, Est GFR (MDRD) Af Amer 10 L, Est GFR (MDRD) Non-Af 9 L, BUN/Creatinine Ratio 9.7 L, Glucose 93, Calcium 7.7 L 08/31/21 05:35: Phosphorus 5.4 H Rhythm: Sinus rhythm Physical Exam Const alert, oriented x3 and no apparent distress Orientation / Consciousness: awake HEENT normocephalic, head/scalp atraumatic and hearing grossly normal bilaterally Eyes PERRL, EOMs intact bilaterally and conjunctivae normal Neck full ROM, supple and no JVD Chest inspection of chest normal Resp normal respiratory effort and clear to auscultation bilaterally Cardio regular rate, regular rhythm, S1 normal heart sound and S2 normal heart sound GI normal to inspection, nondistended, normoactive bowel sounds Extremity no pedal edema Skin no rashes or lesions noted Neuro oriented x3 and moves all extremities Psych mental status grossly normal Assessment & Plan Assessment/Plan (1) NSTEMI, initial episode of care: PLAN: The patient has abnormal cardiac enzymes which have raise concern of a non-ST segment elevation [place]. At the moment the patient does not appear to have any acute coronary syndrome symptoms nor does she have any acute ECG changes. She does not appear to have any left ventricular wall motion abnormalities. Thus there are concerns that her abnormal cardiac enzymes concerning for non-ST segment elevation [place] may be a type II event brought out by her marked anemia and marked renal insufficiency. At the present time she will continue to be monitored. Is not unreasonable to continue medical therapy as deemed appropriate. She has received PRBCs. Her hemoglobin has increased. However, her hemoglobin has subsequently decreased. She may need to be considered for additional PRBCs to assist with her oxygen carrying capacity. Over time consideration can be given as to whether she develops the need for additional noninvasive or invasive cardiovascular testing. However it be reasonable to further evaluate and correct her underlying anemia and renal insufficiency prior to proceeding in such a manner. (2) Cardiac dysrhythmia, unspecified: PLAN: She did have what appeared to be a brief episode of an ectopic atrial rhythm/tachycardia. She appeared to be without obvious symptoms or hemodynamic compromise. At the present time based upon review of her cardiac satellite project site monitor she has remained in sinus rhythm without obvious recurrence of any dysrhythmia. (3) Anemia: PLAN: The etiology of her anemia appears to be unclear at this time. Again she has received PRBCs. She may need additional PRBCs as her hemoglobin remains low. She has been undergoing additional gastrointestinal evaluation and care. If there is no obvious source of anemia then she may also need evaluation by hematology to assist with her diagnosis and care. (4) Acute kidney injury: PLAN: She does have a history of what appears to be chronic renal insufficiency which during this event has markedly worsened. Her creatinine initially improved somewhat since receiving PRBCs. However, as her hemoglobin declined her creatinine level has increased again. She has been evaluated by nephrology. Their input is appreciated. (5) Hypertension: PLAN: Her blood pressure will need to be followed with her medicines adjusted accordingly. She may need additional medical therapy that does not interact with her renal insufficiency to assist with her blood pressure. (6) Diabetes: QUALIFIERS: Diabetes mellitus type: type 2 PLAN: She will continue evaluation care per internal medicine. Addt'l Comments This note was generated using a voice recognition system and there may be incorrect words, spelling or punctuation that were not noted when reviewing the office note prior to saving.
[2021-08-31] MEDS: hydrALAZINE 25 MG Tablet PO ×3 (09:52→21:36)
[2021-08-31] MEDS: Carvedilol 25 MG Tablet PO ×2 (09:52→17:39)
[2021-08-31] MEDS: amLODIPine 10 MG Tablet PO (09:52)
--- NOTE | 2021-08-31 13:10 | PN.HOSP_ITS ---
Subjective Subjective Patient seen and examined. She feels well today and has no active complaints. Review of systems is otherwise negative. Cr is 5.35 today. Objective Data Objective Data Vital Signs: Vital Signs Temp Pulse Resp BP Pulse Ox 98.4 F 77 26 H 168/55 H 97 08/31/21 09:43 08/31/21 11:16 08/31/21 11:16 08/31/21 09:52 08/31/21 11:16 Oxygen Flow Rate (L/min) 2 Oxygen Delivery Method Nasal Cannula Weight: 180 lb 0.013 oz Body Mass Index (BMI) 30.9 Intake & Output: Intake and Output for Last 24 Hours 08/29/21 08/30/21 08/31/21 23:59 23:59 23:59 Intake Total 6739.17 / 7239.17 3693.75 / 3693.75 950 / 950 Output Total 400 / 400 Balance 6739.17 / 7239.17 3293.75 / 3293.75 950 / 950 Lab / Micro Data Result Diagrams: 08/31/21 05:35 08/31/21 05:35 Labs: Laboratory Results - last 24 hr 08/30/21 17:30: Sodium 141, Potassium 4.4, Chloride 117 H, Carbon Dioxide 17.0 L , Anion Gap 7, BUN 50 H, Creatinine 5.42 H, Estim Creat Clear Calc 9.05, Est GFR (MDRD) Af Amer 10 L, Est GFR (MDRD) Non-Af 8 L, BUN/Creatinine Ratio 9.2 L, Glucose 133 H, Calcium 8.0 L, Phosphorus 5.6 H 08/30/21 17:45: POC Glucose 126 H 08/30/21 21:18: POC Glucose 114 H 08/31/21 05:35: WBC 6.5, RBC 2.72 L, Hgb 7.7 L, Hct 25.0 L, MCV 91.9, MCH 28.3, MCHC 30.8 L, RDW Std Deviation 47.3 H, RDW Coeff of Odttie 14.0, Plt Count 242, MPV 8.9, Immature Gran % (Auto) 0.900, Neut % (Auto) 62.9, Lymph % (Auto) 24.5, [place] % (Auto) 9.7, Eos % (Auto) 1.5, Baso % (Auto) 0.5, Absolute Neuts (auto) 4.1, Absolute Lymphs (auto) 1.59, Nucleated RBC % 0 08/31/21 05:35: Sodium 141, Potassium 4.6, Chloride 116 H, Carbon Dioxide 16.0 L , Anion Gap 9, BUN 52 H, Creatinine 5.35 H, Estim Creat Clear Calc 9.17, Est GFR (MDRD) Af Amer 10 L, Est GFR (MDRD) Non-Af 9 L, BUN/Creatinine Ratio 9.7 L, Glucose 93, Calcium 7.7 L 08/31/21 05:35: Phosphorus 5.4 H 08/31/21 06:47: POC Glucose 93 Micro: Microbiology 08/28/21 11:30 Stool Stool Occult Blood (SIMONE) - Final Occult Blood Positive 08/27/21 19:25 Nasal Secretion SARS-CoV-2 Antigen (Rapid) - Final Physical Exam Const alert, oriented x3 and no apparent distress General Appearance: cooperative Exam Limitations: no limitations HEENT normocephalic, head/scalp atraumatic, moist oral mucous membranes and oropharynx normal Head and Scalp: normocephalic Eyes PERRL, EOMs intact bilaterally and conjunctivae normal Neck no lymphadenopathy and supple Lymph Lymphatic: no lymphadenopathy noted Resp normal respiratory effort, normal air movement, no retractions, no use of accessory muscles and clear to auscultation bilaterally Resp Narrative: tachypneic Cardio regular rate, regular rhythm, S1 normal heart sound, S2 normal heart sound and no murmurs Heart Sounds: murmur GI normal to inspection, nondistended, normoactive bowel sounds, soft to palpation, non-tender, non-distended and hepatosplenomegaly Palpation: Negative for rigid Extremity normal to inspection, full ROM and no clubbing, cyanosis or edema Peripheral Pulses: Yes pulses 2+ throughout Skin no rashes or lesions noted Neuro oriented x3, CN's II-XII intact bilaterally and moves all extremities Sensorium / Orientation: awake and alert Psych affect normal Assessment & Plan Assessment/Plan (1) Anemia: (2) Pneumonia: (3) Acute kidney injury: (4) NSTEMI, initial episode of care: PLAN: #Acute on chronic anemia * Hb today is 7.7 today * has been transfused with 2 units of PRBCs * GI on board. * colonoscopy showed diverticulosis in the sigmoid, descending colon and splenic flexure. * EGD showed duodenal ulcers with no active bleeding and by GI, anemia may be due to chronic hepatitis C. To have capsule endoscopy on outpatient basis. * #AGGIE * Cr is down to 5.35 * nephrology on board. Thinks is it likely ATN * being gently hydrated with IVF. * await further nephrology rec's * * #Nonstemi * likely a type 2 nonstemi due to demand ischemia * initial high sensitivity troponin on admission was ~ 500, now trended up to 685. May also be affected by the elevated Cr * 2D echo:EF is 60%, with evidence of diastolic dysfunction and mildly enlarged left atrium. * cardiology on board * #Non anion gap metabolic acidosis * likely due to AGGIE. * nephrology on board * #Community acquired pneumonia * CXR showed a right lower lobe infiltrate * on IV levaquin q48hr. * blood cultures pending. * #Hypertension: on lisinopril and metoprolol as well as HCZ and amlodipine. Hold lisinopril and HCTZ due to AGGIE. #History of asthma: on breathing treatment with bronchodilators #History of diabetes mellitus: * appears to be diet controlled, as she is not on any hypoglycemic agents. * ISS. * Accuchecks ACHS. DVT prophylaxis: SCDs. No anticoagulation due to anemia Charges/Coding Visit Charges Inpatient E&M: 13049 [facility] Hosp L3
[2021-08-31 15:06] LABS: Bedside Glucose 101 mg/dL (70-110)
--- NOTE | 2021-08-31 17:44 | PCM.PN.REN ---
Subjective Subjective Following for AGGIE. The patient denies shortness of breath at rest. She denies chest pain. There is no nausea, vomiting or diarrhea. However, appetite is marginal. Objective Data Objective Data Vital Signs: Vital Signs Temp Pulse Resp BP Pulse Ox 98.2 F 82 14 137/57 H 98 08/31/21 15:10 08/31/21 15:10 08/31/21 15:10 08/31/21 15:10 08/31/21 15:10 Oxygen Flow Rate (L/min) 2 Oxygen Delivery Method Nasal Cannula Weight: 81.647 kg Body Mass Index (BMI) 30.9 Intake & Output: Intake and Output for Last 24 Hours 08/29/21 08/30/21 08/31/21 23:59 23:59 23:59 Intake Total 6739.17 / 7239.17 3693.75 / 3693.75 2840 / 2840 Output Total 400 / 400 150 / 150 Balance 6739.17 / 7239.17 3293.75 / 3293.75 2690 / 2690 Lab / Micro Data Result Diagrams: 08/31/21 05:35 08/31/21 05:35 Labs: Laboratory Results - last 24 hr 08/30/21 17:30: Sodium 141, Potassium 4.4, Chloride 117 H, Carbon Dioxide 17.0 L, Anion Gap 7, BUN 50 H, Creatinine 5.42 H, Estim Creat Clear Calc 9.05, Est GFR (MDRD) Af Amer 10 L, Est GFR (MDRD) Non-Af 8 L, BUN/Creatinine Ratio 9.2 L, Glucose 133 H, Calcium 8.0 L, Phosphorus 5.6 H 08/30/21 17:45: POC Glucose 126 H 08/30/21 21:18: POC Glucose 114 H 08/31/21 05:35: WBC 6.5, RBC 2.72 L, Hgb 7.7 L, Hct 25.0 L, MCV 91.9, MCH 28.3, MCHC 30.8 L, RDW Std Deviation 47.3 H, RDW Coeff of Dottie 14.0, Plt Count 242, MPV 8.9, Immature Gran % (Auto) 0.900, Neut % (Auto) 62.9, Lymph % (Auto) 24.5, [place] % (Auto) 9.7, Eos % (Auto) 1.5, Baso % (Auto) 0.5, Absolute Neuts (auto) 4.1, Absolute Lymphs (auto) 1.59, Nucleated RBC % 0 08/31/21 05:35: Sodium 141, Potassium 4.6, Chloride 116 H, Carbon Dioxide 16.0 L, Anion Gap 9, BUN 52 H, Creatinine 5.35 H, Estim Creat Clear Calc 9.17, Est GFR (MDRD) Af Amer 10 L, Est GFR (MDRD) Non-Af 9 L, BUN/Creatinine Ratio 9.7 L, Glucose 93, Calcium 7.7 L 08/31/21 05:35: Phosphorus 5.4 H 08/31/21 06:47: POC Glucose 93 08/31/21 15:01: POC Glucose 101 Micro: Microbiology 08/28/21 11:30 Stool Stool Occult Blood (SIMONE) - Final Occult Blood Positive 08/27/21 19:25 Nasal Secretion SARS-CoV-2 Antigen (Rapid) - Final Physical Exam Narrative General: NAD HEENT: Normocephalic, atraumatic. Mucous membrane dry. There is no mucosal erythema. Neck: Supple, no JVD. Heart: Normal S1, S2. No rubs, murmurs or gallops. Lungs: CTAB. Abdomen: Normal bowel sounds, soft Extremity: No clubbing, cyanosis, or edema. Assessment & Plan Assessment/Plan (1) AGGIE (acute kidney injury): PLAN: AGGIE is secondary to ischemic ATN. See my prior note. Creatinine 5.88 mg/dL on admission 08/27/2021, SCr improved to 4.17 mg/dL 08/29 but has been hung up at around 5.4 for the last 3 days. UOP is not documented, however patient states she urinates often and at times is incontinent. We also found out that the Gudino was misplaced until this afternoon. There is no urgent need for kidney replacement therapy. Potassium level is not high. Although she is acidotic, bicarbonate level is not much different in the last 3 days. We will continue to monitor volume status. Continue IV fluid but will decrease IV rate. Recheck renal function panel tomorrow. Current medications are reviewed and are appropriately dosed for the current estimated creatinine clearance. (2) Chronic kidney disease, stage 3a: PLAN: The patient likely has underlying chronic kidney disease stage 3. Elevated Creatinine since 2019, and serum creatinine from 03/08/20 was 1.33 mg/dL. Past UAs showed 100 protein, negative blood. This admission UA showed 50 occult blood and 500 protein. (3) Hypertension: PLAN: Continue to hold lisinopril and furosemide for now because of AGGIE. Continue amlodipine and carvedilol. The patient has also been scheduled hydralazine. Blood pressures have improved. Continue current medications. (4) Community acquired pneumonia: PLAN: The patient is being treated with levaquin. Dose of antibiotic is appropriate for current creatinine clearance. (5) Anemia: PLAN: Hgb 5.7 08/28, received 2units PRBC. Hemoglobin is stable at 7.7 today. The patient is being followed by GI service. (6) Type II diabetes mellitus: QUALIFIERS: Diabetes mellitus complication status: with hyperglycemia Diabetes mellitus care home insulin use: without equipment operator intermodal yard use Qualified Code(s): E11.65 - Type 2 diabetes mellitus with hyperglycemia
[2021-08-31 17:51] LABS: Bedside Glucose 114 mg/dL (70-110)
[2021-08-31] MEDS: levoFLOXacin IV 250 MG/50 ML BAG 50 MG IV (21:41)
[2021-08-31 23:01] LABS: Bedside Glucose 119 mg/dL (70-110)
[2021-09-01] VITALS (14 sets, daily range): BP systolic 123–186; BP diastolic 47–78; PULSE 74–88; RESP 16–20; TEMP 36.8–38; O2SAT 92–99
[2021-09-01] MEDS: 0.9% Normal Saline 1,000 ML 100 ML IV ×2 (01:48→11:51)
[2021-09-01] MEDS: hydrALAZINE 25 MG Tablet PO ×3 (06:19→20:34)
[2021-09-01] MEDS: Ipratropium/Albuterol Sulfate 3 ML AMPUL.NEB INHALATION ×3 (06:41→18:36)
[2021-09-01 06:49] LABS: Absolute Lymphocyte Count 1.67 X10^3/uL (0.83-4.51); Absolute Neutrophil Count 4.4 X10^3/uL (2.0-7.7); Basophil# 0.04 X10^3/uL; Basophil% 0.6 % (0-1); Eosinophils% 1.4 % (0-5); Hematocrit 24.1 % (37-47); Hemoglobin 7.6 g/dL (12.0-15.0); Lymphocyte # 1.67 X10^3/ul (0.83-4.51); Lymphocyte % 23.9 % (19-41); Mean Corp Hgb Conc 31.5 g/dL (32-36); Mean Platelet Vol. 9.2 fl (6.2-12.0); Monocyte# 0.68 X10^3/uL; Monocyte% 9.7 % (0-10); NRBC Flagged by Analyzer 0 % (0-5); Neutrophil # 4.44 X10^3/uL (2.7-7.7); Neutrophil % 63.4 % (47-70); Platelet Count 213 K/mm3 (150-450); RBC Distribution Width CV 13.9 % (11.6-14.6); RBC Distribution Width SD 46.3 fl (35.1-43.9); Red Blood Count 2.62 M/mm3 (4.2-5.4)
[2021-09-01 07:06] LABS: Bedside Glucose 82 mg/dL (70-110)
[2021-09-01 07:20] LABS: Anion Gap 11 (5-15); BUN 51 mg/dL (7-18); BUN/Creat Ratio 9.3 RATIO (10-20); Chloride 115 mmol/L (98-107); Creatinine, Serum 5.46 mg/dL (0.55-1.02); EST Glomerular Filtration Rate 8 mL/min (>60); Est Glom Filt Rate - Afr Amer 10 mL/min (>60); Estimated Creatinine Clearance 8.99 ml/min; Glucose 81 mg/dL (74-106); Potassium 4.7 mmol/L (3.5-5.1); Sodium Level 139 mmol/L (136-145)
[2021-09-01] MEDS: amLODIPine 10 MG Tablet PO (10:53)
[2021-09-01] MEDS: Carvedilol 25 MG Tablet PO ×2 (10:53→16:21)
--- NOTE | 2021-09-01 12:17 | PN.CARD_ITS ---
Subjective Subjective The patient remains in the hospital based upon her ongoing issues of anemia and renal insufficiency with no ongoing chest discomfort or acute shortness of breath or dyspnea, however, she does appear to require O2 nasal cannula support. Objective Data Vital Signs: Vital Signs Temp Pulse Resp BP Pulse Ox 99.2 F H 87 18 141/78 H 93 09/01/21 10:51 09/01/21 10:51 09/01/21 10:51 09/01/21 10:51 09/01/21 10:51 Oxygen Flow Rate (L/min) 2 Oxygen Delivery Method Room Air Weight: 180 lb 0.013 oz Body Mass Index (BMI) 30.9 Intake & Output: Intake and Output for Last 24 Hours 08/30/21 08/31/21 09/01/21 23:59 23:59 23:59 Intake Total 3693.75 / 3693.75 3614.17 / 3614.17 1275.83 / 1275.83 Output Total 400 / 400 300 / 300 325 / 325 Balance 3293.75 / 3293.75 3314.17 / 3314.17 950.83 / 950.83 Lab / Micro Data Result Diagrams: 09/01/21 05:51 09/01/21 05:51 Labs: Laboratory Results - last 24 hr 08/31/21 15:01: POC Glucose 101 08/31/21 17:40: POC Glucose 114 H 08/31/21 21:35: POC Glucose 119 H 09/01/21 05:51: WBC 7.0, RBC 2.62 L, Hgb 7.6 L, Hct 24.1 L, MCV 92.0, MCH 29.0, MCHC 31.5 L, RDW Std Deviation 46.3 H, RDW Coeff of Dottie 13.9, Plt Count 213, MPV 9.2, Immature Gran % (Auto) 1.000 H, Neut % (Auto) 63.4, Lymph % (Auto) 23.9, [place] % (Auto) 9.7, Eos % (Auto) 1.4, Baso % (Auto) 0.6, Absolute Neuts (auto) 4.4, Absolute Lymphs (auto) 1.67, Nucleated RBC % 0 09/01/21 05:51: Sodium 139, Potassium 4.7, Chloride 115 H, Carbon Dioxide 13.0 L , Anion Gap 11, BUN 51 H, Creatinine 5.46 H, Estim Creat Clear Calc 8.99, Est GFR (MDRD) Af Amer 10 L, Est GFR (MDRD) Non-Af 8 L, BUN/Creatinine Ratio 9.3 L, Glucose 81, Calcium 8.0 L 09/01/21 06:18: POC Glucose 82 Cardiology Labs/Tests 09/01/21 05:51: WBC 7.0, RBC 2.62 L, Hgb 7.6 L, Hct 24.1 L, MCV 92.0, MCH 29.0, MCHC 31.5 L, Plt Count 213, MPV 9.2, Immature Gran % (Auto) 1.000 H, Neut % (Auto) 63.4, Lymph % (Auto) 23.9, [place] % (Auto) 9.7, Eos % (Auto) 1.4, Baso % (Auto) 0.6, Absolute Neuts (auto) 4.4, Nucleated RBC % 0 09/01/21 05:51: Sodium 139, Potassium 4.7, Chloride 115 H, Carbon Dioxide 13.0 L , Anion Gap 11, BUN 51 H, Creatinine 5.46 H, Est GFR (MDRD) Af Amer 10 L, Est GFR (MDRD) Non-Af 8 L, BUN/Creatinine Ratio 9.3 L, Glucose 81, Calcium 8.0 L Rhythm: Sinus rhythm Physical Exam Const alert, oriented x3 and no apparent distress Orientation / Consciousness: awake HEENT normocephalic, head/scalp atraumatic and hearing grossly normal bilaterally Eyes PERRL, EOMs intact bilaterally and conjunctivae normal Neck full ROM, supple and no JVD Chest inspection of chest normal Resp normal respiratory effort and clear to auscultation bilaterally Cardio regular rate, regular rhythm, S1 normal heart sound and S2 normal heart sound GI normal to inspection, nondistended, normoactive bowel sounds Extremity no pedal edema Skin no rashes or lesions noted Neuro oriented x3 and moves all extremities Psych mental status grossly normal Assessment & Plan Assessment/Plan (1) NSTEMI, initial episode of care: PLAN: The patient has abnormal cardiac enzymes which have raise concern of a non-ST segment elevation [place]. At the moment the patient does not appear to have any acute coronary syndrome symptoms nor does she have any acute ECG changes. She does not appear to have any left ventricular wall motion abnormalities. Thus there are concerns that her abnormal cardiac enzymes concerning for non-ST segment elevation [place] may be a type II event brought out by her marked anemia and marked renal insufficiency. At the present time she will continue to be monitored. Is not unreasonable to continue medical therapy as deemed appropriate. She has received PRBCs. However, her hemoglobin has subsequently decreased. Jason garcia may need to be considered for additional PRBCs to assist with her oxygen carrying capacity. Over time consideration can be given as to whether she develops the need for additional noninvasive or invasive cardiovascular testing. However it be reasonable to further evaluate and correct her underlying anemia and renal insufficiency prior to proceeding in such a manner. (2) Cardiac dysrhythmia, unspecified: PLAN: She did have what appeared to be a brief episode of an ectopic atrial rhythm/tachycardia. She appeared to be without obvious symptoms or h emodynamic compromise. At the present time based upon review of her cardiac nuclear monitoring technician she has remained in sinus rhythm without obvious recurrence of any dysrhythmia. (3) Anemia: PLAN: The etiology of her anemia appears to be unclear at this time. Again she has received PRBCs. She may need additional PRBCs as her hemoglobin remains low. She has been undergoing additional gastrointestinal evaluation and care. If there is no obvious source of anemia then she may also need evaluation by hematology to assist with her diagnosis and care. (4) Acute kidney injury: PLAN: She does have a history of what appears to be chronic renal insufficiency which during this event has markedly worsened. Her creatinine initially improved somewhat since receiving PRBCs. However, as her hemoglobin declined her creatinine level has increased again. She has been evaluated by nephrology. Their input is appreciated. (5) Hypertension: PLAN: She has been started on additional antihypertensive therapy with hydralazine. Her blood pressure is being monitored. This dose may need to be increased depending upon her blood pressure response. (6) Diabetes: QUALIFIERS: Diabetes mellitus type: type 2 PLAN: She will continue evaluation care per internal medicine. Addt'l Comments This note was generated using a voice recognition system and there may be incorrect words, spelling or punctuation that were not noted when reviewing the office note prior to saving.
[2021-09-01 12:35] LABS: Bedside Glucose 88 mg/dL (70-110)
--- NOTE | 2021-09-01 13:01 | PN.HOSP_ITS ---
Subjective Subjective Patient seen and examined. She has no complaints. She has a mild fever of 99.2F. She is upset because she hasnt been discharged yet. Her kidney function hasnt improved, and Cr is 5.46. Hb is 7.6 today. Objective Data Objective Data Vital Signs: Vital Signs Temp Pulse Resp BP Pulse Ox 99.2 F H 87 18 141/78 H 93 09/01/21 10:51 09/01/21 10:51 09/01/21 10:51 09/01/21 10:51 09/01/21 10:51 Oxygen Flow Rate (L/min) 2 Oxygen Delivery Method Room Air Weight: 180 lb 0.013 oz Body Mass Index (BMI) 30.9 Intake & Output: Intake and Output for Last 24 Hours 08/30/21 08/31/21 09/01/21 23:59 23:59 23:59 Intake Total 3693.75 / 3693.75 3614.17 / 3614.17 1515.83 / 1515.83 Output Total 400 / 400 300 / 300 575 / 575 Balance 3293.75 / 3293.75 3314.17 / 3314.17 940.83 / 940.83 Lab / Micro Data Result Diagrams: 09/01/21 05:51 09/01/21 05:51 Labs: Laboratory Results - last 24 hr 08/31/21 15:01: POC Glucose 101 08/31/21 17:40: POC Glucose 114 H 08/31/21 21:35: POC Glucose 119 H 09/01/21 05:51: WBC 7.0, RBC 2.62 L, Hgb 7.6 L, Hct 24.1 L, MCV 92.0, MCH 29.0, MCHC 31.5 L, RDW Std Deviation 46.3 H, RDW Coeff of Dottie 13.9, Plt Count 213, MPV 9.2, Immature Gran % (Auto) 1.000 H, Neut % (Auto) 63.4, Lymph % (Auto) 23.9, [place] % (Auto) 9.7, Eos % (Auto) 1.4, Baso % (Auto) 0.6, Absolute Neuts (auto) 4.4, Absolute Lymphs (auto) 1.67, Nucleated RBC % 0 09/01/21 05:51: Sodium 139, Potassium 4.7, Chloride 115 H, Carbon Dioxide 13.0 L , Anion Gap 11, BUN 51 H, Creatinine 5.46 H, Estim Creat Clear Calc 8.99, Est GFR (MDRD) Af Amer 10 L, Est GFR (MDRD) Non-Af 8 L, BUN/Creatinine Ratio 9.3 L, Glucose 81, Calcium 8.0 L 09/01/21 06:18: POC Glucose 82 09/01/21 11:50: POC Glucose 88 Micro: Microbiology 08/28/21 11:30 Stool Stool Occult Blood (SIMONE) - Final Occult Blood Positive 08/27/21 19:25 Nasal Secretion SARS-CoV-2 Antigen (Rapid) - Final Physical Exam Const alert, oriented x3 and no apparent distress General Appearance: cooperative Exam Limitations: no limitations HEENT normocephalic, head/scalp atraumatic, moist oral mucous membranes and oropharynx normal Head and Scalp: normocephalic Eyes PERRL, EOMs intact bilaterally and conjunctivae normal Neck no lymphadenopathy and supple Lymph Lymphatic: no lymphadenopathy noted Resp normal respiratory effort, normal air movement, no retractions, no use of accessory muscles and clear to auscultation bilaterally Cardio regular rate, regular rhythm, S1 normal heart sound, S2 normal heart sound and no murmurs Cardio Narrative: Heart Sounds: murmur GI normal to inspection, nondistended, normoactive bowel sounds, soft to palpation, non-tender, non-distended and hepatosplenomegaly Palpation: Negative for rigid Extremity normal to inspection, full ROM and no clubbing, cyanosis or edema Peripheral Pulses: Yes pulses 2+ throughout Skin no rashes or lesions noted Neuro oriented x3, CN's II-XII intact bilaterally and moves all extremities Sensorium / Orientation: awake and alert Psych affect normal Assessment & Plan Assessment/Plan (1) Anemia: (2) Pneumonia: (3) Acute kidney injury: (4) NSTEMI, initial episode of care: PLAN: #Acute on chronic anemia * Hb today is 7.6 today * has been transfused with 2 units of PRBCs * GI on board. * colonoscopy showed diverticulosis in the sigmoid, descending colon and splenic flexure. * EGD showed duodenal ulcers with no active bleeding and by GI, anemia may be due to chronic hepatitis C. To have capsule endoscopy on outpatient basis. * #AGGIE * Cr is down to 5.46 today * nephrology on board. Thinks is it likely ATN * being gently hydrated with IVF. * nephrology on board. * #Nonstemi * likely a type 2 nonstemi due to demand ischemia * initial high sensitivity troponin on admission was ~ 500, now trended up to 685. May also be affected by the elevated Cr * 2D echo:EF is 60%, with evidence of diastolic dysfunction and mildly enlarged left atrium. * cardiology on board * #Non anion gap metabolic acidosis * likely due to AGGIE. bicarb is 13. Anion gap is 11. * nephrology on board * #Community acquired pneumonia * CXR showed a right lower lobe infiltrate * on IV levaquin q48hr. * blood cultures still pending. * #Hypertension: * on lisinopril and metoprolol as well as HCZ and amlodipine. * Hold lisinopril and HCTZ due to AGGIE. #History of asthma: on breathing treatment with bronchodilators #History of diabetes mellitus: * appears to be diet controlled, as she is not on any hypoglycemic agents. * ISS. * Accuchecks ACHS. DVT prophylaxis: SCDs. No anticoagulation due to anemia Charges/Coding Visit Charges Inpatient E&M: 77029 Subs Hosp L2
[2021-09-01] MEDS: Acetaminophen 325 MG Tablet 650 MG PO (13:49)
[2021-09-01 16:25] LABS: Bedside Glucose 82 mg/dL (70-110)
[2021-09-01 21:11] LABS: Bedside Glucose 136 mg/dL (70-110)
[2021-09-02] VITALS (17 sets, daily range): BP systolic 130–152; BP diastolic 52–78; PULSE 71–87; RESP 14–24; TEMP 36.6–37.9; O2SAT 92–97
[2021-09-02] MEDS: Acetaminophen 325 MG Tablet 650 MG PO (01:01)
[2021-09-02] MEDS: hydrALAZINE 25 MG Tablet PO ×3 (05:27→21:17)
[2021-09-02] MEDS: Ipratropium/Albuterol Sulfate 3 ML AMPUL.NEB INHALATION ×2 (06:40→13:01)
[2021-09-02 06:50] LABS: Bedside Glucose 109 mg/dL (70-110)
[2021-09-02 06:51] LABS: Absolute Lymphocyte Count 1.34 X10^3/uL (0.83-4.51); Absolute Neutrophil Count 4.8 X10^3/uL (2.0-7.7); Basophil# 0.03 X10^3/uL; Basophil% 0.4 % (0-1); Eosinophil# 0.05 X10^3/uL; Eosinophils% 0.7 % (0-5); Hematocrit 24.4 % (37-47); Hemoglobin 7.4 g/dL (12.0-15.0); Lymphocyte # 1.34 X10^3/ul (0.83-4.51); Mean Corp Hgb Conc 30.3 g/dL (32-36); Mean Corpuscular Volume 92.4 fL (81-99); Mean Platelet Vol. 9.5 fl (6.2-12.0); Monocyte# 0.75 X10^3/uL; Monocyte% 10.6 % (0-10); NRBC Flagged by Analyzer 0 % (0-5); Neutrophil # 4.84 X10^3/uL (2.7-7.7); Neutrophil % 68.5 % (47-70); Platelet Count 212 K/mm3 (150-450); RBC Distribution Width CV 13.8 % (11.6-14.6); RBC Distribution Width SD 46.6 fl (35.1-43.9); Red Blood Count 2.64 M/mm3 (4.2-5.4); White Blood Count 7.1 K/mm3 (4.4-11.0)
[2021-09-02 07:27] LABS: Anion Gap 12 (5-15); BUN 59 mg/dL (7-18); BUN/Creat Ratio 9.9 RATIO (10-20); Calcium,Total 7.9 mg/dL (8.5-10.1); Chloride 115 mmol/L (98-107); Creatinine, Serum 5.98 mg/dL (0.55-1.02); EST Glomerular Filtration Rate 8 mL/min (>60); Est Glom Filt Rate - Afr Amer 9 mL/min (>60); Estimated Creatinine Clearance 8.21 ml/min; Glucose 103 mg/dL (74-106); Potassium 4.9 mmol/L (3.5-5.1); Sodium Level 139 mmol/L (136-145)
--- NOTE | 2021-09-02 08:40 | PCM.PN.REN ---
Subjective Subjective Following for acute kidney injury. The patient denies chest pain, shortness of breath at rest, or increasing edema. Appetite is not bad. There has been no nausea or vomiting. She denies diarrhea. Objective Data Objective Data Vital Signs: Vital Signs Temp Pulse Resp BP Pulse Ox 98.2 F 78 20 H 145/71 H 94 09/02/21 06:52 09/02/21 07:00 09/02/21 06:40 09/02/21 05:27 09/02/21 06:40 Oxygen Flow Rate (L/min) 2 Oxygen Delivery Method Room Air Weight: 81.647 kg Body Mass Index (BMI) 30.9 Intake & Output: Intake and Output for Last 24 Hours 08/31/21 09/01/21 09/02/21 23:59 23:59 23:59 Intake Total 3614.17 / 3614.17 2755.83 / 2755.83 Output Total 300 / 300 725 / 875 375 / 375 Balance 3314.17 / 3314.17 2030.83 / 1880.83 -375 / -375 Lab / Micro Data Result Diagrams: 09/02/21 05:16 09/02/21 05:16 Labs: Laboratory Results - last 24 hr 09/01/21 11:50: POC Glucose 88 09/01/21 16:10: POC Glucose 82 09/01/21 20:33: POC Glucose 136 H 09/02/21 05:16: WBC 7.1, RBC 2.64 L, Hgb 7.4 L, Hct 24.4 L, MCV 92.4, MCH 28.0, MCHC 30.3 L, RDW Std Deviation 46.6 H, RDW Coeff of Dottie 13.8, Plt Count 212, MPV 9.5, Immature Gran % (Auto) 0.800, Neut % (Auto) 68.5, Lymph % (Auto) 19.0, [place] % (Auto) 10.6 H, Eos % (Auto) 0.7, Baso % (Auto) 0.4, Absolute Neuts (auto) 4.8, Absolute Lymphs (auto) 1.34, Nucleated RBC % 0 09/02/21 05:16: Sodium 139, Potassium 4.9, Chloride 115 H, Carbon Dioxide 12.0 L, Anion Gap 12, BUN 59 H, Creatinine 5.98 H, Estim Creat Clear Calc 8.21, Est GFR (MDRD) Af Amer 9 L, Est GFR (MDRD) Non-Af 8 L, BUN/Creatinine Ratio 9.9 L, Glucose 103, Calcium 7.9 L 09/02/21 06:43: POC Glucose 109 Micro: Microbiology 08/28/21 11:30 Stool Stool Occult Blood (SIMONE) - Final Occult Blood Positive 08/27/21 19:25 Nasal Secretion SARS-CoV-2 Antigen (Rapid) - Final Physical Exam Narrative General: NAD but the patient appears tachypneic HEENT: Normocephalic, atraumatic. Mucous membrane moist. There is no mucosal erythema. Neck: Supple, no JVD. Heart: Normal S1, S2. No rubs, murmurs or gallops. Lungs: CTAB. Abdomen: Normal bowel sounds, soft, nontender, no guarding or rebound. Extremity: No clubbing, cyanosis, or edema. Assessment & Plan Assessment/Plan (1) AGGIE (acute kidney injury): PLAN: AGGIE is most likely secondary to ischemic ATN. Fractional secretion sodium was greater than 1% on 08/28/2021. There was no evidence of obstruction of the urinary tract based on CT scan of the abdomen and pelvis from 08/27/2021. I have low suspicion for other causes of AGGIE at this point since urinalysis did not show any significant RBCs. Proteinuria can be ascribed to her longstanding history of diabetes mellitus. Creatinine was 5.88 mg/dL on admission 08/27/2021, SCr improved to 4.17 mg/dL 08/29. Unfortunately, serum creatinine has increased again in the past 24 hours from 5.35 mg/dL on 08/30/21 to 5.98 mg/dL today despite positive fluid balance. I stopped the IV fluid yesterday since she is now over 6 L positive in fluid balance since admission. There is no urgent need for kidney replacement therapy today. However, I did discuss the possible need for dialysis with the patient today given worsening renal function despite volume repletion. Recheck renal function panel tomorrow. We will proceed with hemodialysis tomorrow if renal function continues to worsen. Current medications are reviewed and are appropriately dosed for the current estimated creatinine clearance. (2) Chronic kidney disease, stage 3a: PLAN: The patient likely has underlying chronic kidney disease stage 3. Elevated Creatinine since 2019, and serum creatinine from 03/08/20 was 1.33 mg/dL. (3) Metabolic acidosis: PLAN: Serum bicarbonate level is worse at 12 mmol/L today. I will start the patient on oral sodium bicarbonate. I want to limit volumes, so I would not start bicarbonate drip at this point. If acidosis worsens over the next 24 hours, she will need dialysis. (4) Hypertension: PLAN: Continue to hold lisinopril and furosemide for now because of AGGIE. Continue amlodipine and carvedilol. The patient is also on scheduled hydralazine. Blood pressure is acceptable. Continue current medications. (5) Community acquired pneumonia: PLAN: The patient is being treated with levaquin. Dose of antibiotic is appropriate for current creatinine clearance. (6) Anemia: PLAN: Hgb 5.7 08/28, received 2units PRBC. Hemoglobin is stable at 7.4 today. The patient is being followed by GI service. (7) Type II diabetes mellitus: QUALIFIERS: Diabetes mellitus complication status: with hyperglycemia Diabetes mellitus detention insulin use: without tank terminal gauger use Qualified Code(s): E11.65 - Type 2 diabetes mellitus with hyperglycemia PLAN: Glycemic control as per primary service.
[2021-09-02] MEDS: amLODIPine 10 MG Tablet PO (09:16)
[2021-09-02] MEDS: Sodium Bicarbonate 650 MG Tablet PO ×4 (09:16→21:08)
[2021-09-02] MEDS: Carvedilol 25 MG Tablet PO ×2 (09:16→16:53)
--- NOTE | 2021-09-02 09:58 | PN.CARD_ITS ---
Subjective Subjective The patient denies ongoing chest discomfort. She believes her breathing is okay at the moment. She has been up to the bedside chair. Objective Data Vital Signs: Vital Signs Temp Pulse Resp BP Pulse Ox 99.2 F H 83 16 138/56 H 95 09/02/21 09:16 09/02/21 09:16 09/02/21 09:16 09/02/21 09:16 09/02/21 09:16 Oxygen Flow Rate (L/min) 2 Oxygen Delivery Method Room Air Weight: 180 lb 0.013 oz Body Mass Index (BMI) 30.9 Intake & Output: Intake and Output for Last 24 Hours 08/31/21 09/01/21 09/02/21 23:59 23:59 23:59 Intake Total 3614.17 / 3614.17 2755.83 / 2755.83 Output Total 300 / 300 725 / 875 375 / 375 Balance 3314.17 / 3314.17 2030.83 / 1880.83 -375 / -375 Lab / Micro Data Result Diagrams: 09/02/21 05:16 09/02/21 05:16 Labs: Laboratory Results - last 24 hr 09/01/21 11:50: POC Glucose 88 09/01/21 16:10: POC Glucose 82 09/01/21 20:33: POC Glucose 136 H 09/02/21 05:16: WBC 7.1, RBC 2.64 L, Hgb 7.4 L, Hct 24.4 L, MCV 92.4, MCH 28.0, MCHC 30.3 L, RDW Std Deviation 46.6 H, RDW Coeff of Dottie 13.8, Plt Count 212, MPV 9.5, Immature Gran % (Auto) 0.800, Neut % (Auto) 68.5, Lymph % (Auto) 19.0, [place] % (Auto) 10.6 H, Eos % (Auto) 0.7, Baso % (Auto) 0.4, Absolute Neuts (auto) 4.8, Absolute Lymphs (auto) 1.34, Nucleated RBC % 0 09/02/21 05:16: Sodium 139, Potassium 4.9, Chloride 115 H, Carbon Dioxide 12.0 L , Anion Gap 12, BUN 59 H, Creatinine 5.98 H, Estim Creat Clear Calc 8.21, Est GFR (MDRD) Af Amer 9 L, Est GFR (MDRD) Non-Af 8 L, BUN/Creatinine Ratio 9.9 L, Glucose 103, Calcium 7.9 L 09/02/21 06:43: POC Glucose 109 Cardiology Labs/Tests 09/02/21 05:16: WBC 7.1, RBC 2.64 L, Hgb 7.4 L, Hct 24.4 L, MCV 92.4, MCH 28.0, MCHC 30.3 L, Plt Count 212, MPV 9.5, Immature Gran % (Auto) 0.800, Neut % (Auto) 68.5, Lymph % (Auto) 19.0, [place] % (Auto) 10.6 H, Eos % (Auto) 0.7, Baso % (Auto) 0.4, Absolute Neuts (auto) 4.8, Nucleated RBC % 0 09/02/21 05:16: Sodium 139, Potassium 4.9, Chloride 115 H, Carbon Dioxide 12.0 L , Anion Gap 12, BUN 59 H, Creatinine 5.98 H, Est GFR (MDRD) Af Amer 9 L, Est GFR (MDRD) Non-Af 8 L, BUN/Creatinine Ratio 9.9 L, Glucose 103, Calcium 7.9 L Rhythm: Sinus rhythm Physical Exam Const alert, oriented x3 and no apparent distress Orientation / Consciousness: awake HEENT normocephalic, head/scalp atraumatic and hearing grossly normal bilaterally Eyes PERRL, EOMs intact bilaterally and conjunctivae normal Neck full ROM, supple and no JVD Chest inspection of chest normal Resp normal respiratory effort and clear to auscultation bilaterally Cardio regular rate, regular rhythm, S1 normal heart sound and S2 normal heart sound GI normal to inspection, nondistended, normoactive bowel sounds Extremity no pedal edema Skin no rashes or lesions noted Neuro oriented x3 and moves all extremities Psych mental status grossly normal Assessment & Plan Assessment/Plan (1) NSTEMI, initial episode of care: PLAN: The patient has abnormal cardiac enzymes which have raise concern of a non-ST segment elevation RI. At the moment the patient does not appear to have any acute coronary syndrome symptoms nor does she have any acute ECG changes. She does not appear to have any left ventricular wall motion abnormalities. Thus there are concerns that her abnormal cardiac enzymes concerning for non-ST segment elevation RI may be a type II event brought out by her marked anemia and marked renal insufficiency. At the present time she will continue to be monitored. Over time consideration can be given as to whether she develops the need for additional noninvasive or invasive cardiovascular testing. However it be reasonable to further evaluate and correct her underlying anemia and renal insufficiency prior to proceeding in such a manner. (2) Cardiac dysrhythmia, unspecified: PLAN: She did have what appeared to be a brief episode of an ectopic atrial rhythm/tachycardia. She appeared to be without obvious symptoms or hemodynamic compromise. 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 (3) Anemia: PLAN: The etiology of her anemia appears to be unclear at this time. She received PRBCs. Her hemoglobin level transiently increased and then it has decreased and remained low. She has been undergoing additional gastrointestinal evaluation and care. She may need additional PRBCs to assist with her oxygen carrying capacity. If she proceeds with hemodialysis then this may be the time to proceed with PRBCs to help manage her volume status. (4) Acute kidney injury: PLAN: She does have a history of what appears to be chronic renal insufficiency which during this event has markedly worsened. Her creatinine initially improved somewhat since receiving PRBCs. However, as her hemoglobin declined her creatinine level has increased again. She has been evaluated by nephrology. It appears that the tentative plan, depending upon her renal function, is to proceed with hemodialysis as early as tomorrow. (5) Hypertension: PLAN: She has been started on additional antihypertensive therapy with hydralazine. Her blood pressure is being monitored. This dose may need to be increased depending upon her blood pressure response. (6) Diabetes: QUALIFIERS: Diabetes mellitus type: type 2 PLAN: She will continue evaluation care per internal medicine. Addt'l Comments This note was generated using a voice recognition system and there may be incorrect words, spelling or punctuation that were not noted when reviewing the office note prior to saving.
--- NOTE | 2021-09-02 10:40 | PN.HOSP_ITS ---
Subjective Subjective Patient seen and examined. She has no active complaints today and feels well. Review of systems otherwise negative. She is noted to have a low grade fever of 99.2F today. Kidney function has also worsened, with Cr going up to 5.98 today. Bicarb is 12 and anion gap is 12. Objective Data Objective Data Vital Signs: Vital Signs Temp Pulse Resp BP Pulse Ox 99.2 F H 83 16 138/56 H 95 09/02/21 09:16 09/02/21 09:16 09/02/21 09:16 09/02/21 09:16 09/02/21 09:16 Oxygen Flow Rate (L/min) 2 Oxygen Delivery Method Room Air Weight: 180 lb 0.013 oz Body Mass Index (BMI) 30.9 Intake & Output: Intake and Output for Last 24 Hours 08/31/21 09/01/21 09/02/21 23:59 23:59 23:59 Intake Total 3614.17 / 3614.17 2755.83 / 2755.83 Output Total 300 / 300 725 / 875 375 / 375 Balance 3314.17 / 3314.17 2030.83 / 1880.83 -375 / -375 Lab / Micro Data Result Diagrams: 09/02/21 05:16 09/02/21 05:16 Labs: Laboratory Results - last 24 hr 09/01/21 11:50: POC Glucose 88 09/01/21 16:10: POC Glucose 82 09/01/21 20:33: POC Glucose 136 H 09/02/21 05:16: WBC 7.1, RBC 2.64 L, Hgb 7.4 L, Hct 24.4 L, MCV 92.4, MCH 28.0, MCHC 30.3 L, RDW Std Deviation 46.6 H, RDW Coeff of Dottie 13.8, Plt Count 212, MPV 9.5, Immature Gran % (Auto) 0.800, Neut % (Auto) 68.5, Lymph % (Auto) 19.0, [place] % (Auto) 10.6 H, Eos % (Auto) 0.7, Baso % (Auto) 0.4, Absolute Neuts (auto) 4.8, Absolute Lymphs (auto) 1.34, Nucleated RBC % 0 09/02/21 05:16: Sodium 139, Potassium 4.9, Chloride 115 H, Carbon Dioxide 12.0 L , Anion Gap 12, BUN 59 H, Creatinine 5.98 H, Estim Creat Clear Calc 8.21, Est GFR (MDRD) Af Amer 9 L, Est GFR (MDRD) Non-Af 8 L, BUN/Creatinine Ratio 9.9 L, Glucose 103, Calcium 7.9 L 09/02/21 06:43: POC Glucose 109 Micro: Microbiology 08/28/21 11:30 Stool Stool Occult Blood (SIMONE) - Final Occult Blood Positive 08/27/21 19:25 Nasal Secretion SARS-CoV-2 Antigen (Rapid) - Final Physical Exam Const alert and oriented x3 General Appearance: cooperative Exam Limitations: no limitations HEENT normocephalic, head/scalp atraumatic, moist oral mucous membranes and oropharynx normal Head and Scalp: normocephalic Eyes PERRL, EOMs intact bilaterally and conjunctivae normal Neck no lymphadenopathy and supple Lymph Lymphatic: no lymphadenopathy noted Resp normal respiratory effort, normal air movement, no retractions, no use of accessory muscles and clear to auscultation bilaterally Cardio regular rate, regular rhythm, S1 normal heart sound, S2 normal heart sound and no murmurs Cardio Narrative: Heart Sounds: murmur GI normal to inspection, nondistended, normoactive bowel sounds, soft to palpation, non-tender, non-distended and hepatosplenomegaly Palpation: Negative for rigid Extremity normal to inspection, full ROM and no clubbing, cyanosis or edema Peripheral Pulses: Yes pulses 2+ throughout Skin no rashes or lesions noted Neuro oriented x3, CN's II-XII intact bilaterally and moves all extremities Sensorium / Orientation: awake and alert Psych affect normal Assessment & Plan Assessment/Plan (1) Anemia: (2) Pneumonia: (3) Acute kidney injury: (4) NSTEMI, initial episode of care: PLAN: #Acute on chronic anemia * Hb today is 7.4 today * has been transfused with 2 units of PRBCs * GI on board. * colonoscopy showed diverticulosis in the sigmoid, descending colon and splenic flexure. * EGD showed duodenal ulcers with no active bleeding and by GI, anemia may be due to chronic hepatitis C. To have capsule endoscopy on outpatient basis. * #AGGIE * Cr is up to 5.98 * nephrology on board. Thinks it is likely ATN * per nephrology, will need to start dialysis, likely tomorrow. * being gently hydrated with IVF. * nephrology on board. * #Nonstemi * likely a type 2 nonstemi due to demand ischemia * initial high sensitivity troponin on admission was ~ 500, now trended up to 685. May also be affected by the elevated Cr * 2D echo:EF is 60%, with evidence of diastolic dysfunction and mildly enlarged left atrium. * cardiology on board; no plans for any intervention now * #Non anion gap metabolic acidosis * likely due to AGGIE. bicarb is 12. Anion gap is 12 * nephrology on board * #Community acquired pneumonia * CXR showed a right lower lobe infiltrate * on IV levaquin q48hr; has had 2 doses so far. to stop after 5 doses. * blood cultures still pending. * #Hypertension: * on lisinopril and metoprolol as well as HCZ and amlodipine. * Hold lisinopril and HCTZ due to AGGIE. #History of asthma: on breathing treatment with bronchodilators #History of diabetes mellitus: * appears to be diet controlled, as she is not on any hypoglycemic agents. * ISS. * Accuchecks ACHS. DVT prophylaxis: SCDs. No anticoagulation due to anemia Charges/Coding Visit Charges Inpatient E&M: 30073 Subs Hosp L2
[2021-09-02 11:41] LABS: Bedside Glucose 117 mg/dL (70-110)
[2021-09-02 17:31] LABS: Bedside Glucose 101 mg/dL (70-110)
[2021-09-02] MEDS: levoFLOXacin IV 250 MG/50 ML BAG 50 MG IV (21:08)
[2021-09-02] MEDS: 0.9% Saline Lock 10 ML Syringe IV (21:08)
[2021-09-03] VITALS (15 sets, daily range): BP systolic 130–160; BP diastolic 49–63; PULSE 68–82; RESP 17–22; TEMP 36.9–38.6; O2SAT 92–98
[2021-09-03 00:31] LABS: Bedside Glucose 105 mg/dL (70-110)
[2021-09-03] MEDS: Acetaminophen 325 MG Tablet 650 MG PO (03:33)
[2021-09-03] MEDS: hydrALAZINE 25 MG Tablet PO ×3 (05:36→21:43)
[2021-09-03 06:25] LABS: International Normalized Ratio 1.3
[2021-09-03 06:26] LABS: Partial Thromboplast Time 29.9 Seconds (24.1-36.2)
[2021-09-03 06:44] LABS: BUN 67 mg/dL (7-18); BUN/Creat Ratio 10.8 RATIO (10-20); Calcium,Total 7.8 mg/dL (8.5-10.1); Chloride 116 mmol/L (98-107); Creatinine, Serum 6.18 mg/dL (0.55-1.02); EST Glomerular Filtration Rate 7 mL/min (>60); Est Glom Filt Rate - Afr Amer 9 mL/min (>60); Estimated Creatinine Clearance 7.94 ml/min; Glucose 87 mg/dL (74-106); Phosphorus 6.4 mg/dL (2.5-4.9); Sodium Level 140 mmol/L (136-145)
[2021-09-03 06:55] LABS: Bedside Glucose 85 mg/dL (70-110)
--- NOTE | 2021-09-03 08:44 | PN.CARD_ITS ---
Subjective Subjective The patient remains without acute cardiac complaints. Objective Data Vital Signs: Vital Signs Temp Pulse Resp BP Pulse Ox 98.5 F 69 18 133/50 H 97 09/03/21 05:30 09/03/21 07:00 09/03/21 05:30 09/03/21 05:36 09/03/21 05:30 Oxygen Flow Rate (L/min) 2 Oxygen Delivery Method Nasal Cannula Weight: 180 lb 0.013 oz Body Mass Index (BMI) 30.9 Intake & Output: Intake and Output for Last 24 Hours 09/01/21 09/02/21 09/03/21 23:59 23:59 23:59 Intake Total 2755.83 / 2755.83 660 / 760 100 / 100 Output Total 725 / 875 750 / 900 300 / 300 Balance 2030.83 / 1880.83 -90 / -140 -200 / -200 Lab / Micro Data Result Diagrams: 09/02/21 05:16 09/03/21 05:15 Labs: Laboratory Results - last 24 hr 09/02/21 11:33: POC Glucose 117 H 09/02/21 16:50: POC Glucose 101 09/02/21 21:06: POC Glucose 105 09/03/21 05:15: PT 15.0 H, INR 1.3, APTT 29.9 09/03/21 05:15: Sodium 140, Potassium 5.0, Chloride 116 H, Carbon Dioxide 14.0 L , BUN 67 H, Creatinine 6.18 H, Estim Creat Clear Calc 7.94, Est GFR (MDRD) Af Amer 9 L, Est GFR (MDRD) Non-Af 7 L, BUN/Creatinine Ratio 10.8, Glucose 87, Calcium 7.8 L, Phosphorus 6.4 H, Albumin 2.0 L 09/03/21 06:40: POC Glucose 85 Micro: Microbiology 08/27/21 21:13 Blood Culture (Wb) - Anticubital Left Blood Culture - Final No growth in 5 days. 08/27/21 21:20 Blood Culture (Wb) - Anticubital Right Blood Culture - Final No growth in 5 days. Cardiology Labs/Tests 09/03/21 05:15: PT 15.0 H, INR 1.3, APTT 29.9 09/03/21 05:15: Sodium 140, Potassium 5.0, Chloride 116 H, Carbon Dioxide 14.0 L , BUN 67 H, Creatinine 6.18 H, Est GFR (MDRD) Af Amer 9 L, Est GFR (MDRD) Non-Af 7 L, BUN/Creatinine Ratio 10.8, Glucose 87, Calcium 7.8 L, Phosphorus 6.4 H Rhythm: Sinus rhythm Physical Exam Const alert, oriented x3 and no apparent distress Orientation / Consciousness: awake HEENT normocephalic, head/scalp atraumatic and hearing grossly normal bilaterally Eyes PERRL, EOMs intact bilaterally and conjunctivae normal Neck full ROM, supple and no JVD Chest inspection of chest normal Resp normal respiratory effort and clear to auscultation bilaterally Cardio regular rate, regular rhythm, S1 normal heart sound and S2 normal heart sound GI normal to inspection, nondistended, normoactive bowel sounds Extremity no pedal edema Skin no rashes or lesions noted Neuro oriented x3 and moves all extremities Psych mental status grossly normal Assessment & Plan Assessment/Plan (1) NSTEMI, initial episode of care: PLAN: The patient has abnormal cardiac enzymes which have raise concern of a non-ST segment elevation SC. At the moment the patient does not appear to have any acute coronary syndrome symptoms nor does she have any acute ECG changes. She does not appear to have any left ventricular wall motion abnormalities. Thus there are concerns that her abnormal cardiac enzymes concerning for non-ST segment elevation SC may be a type II event brought out by her marked anemia and marked renal insufficiency. At the present time she will continue to be monitored. Over time consideration can be given as to whether she develops the need for additional noninvasive or invasive cardiovascular testing. However it be reasonable to further evaluate and correct her underlying anemia and renal insufficiency prior to proceeding in such a manner. (2) Cardiac dysrhythmia, unspecified: PLAN: She did have what appeared to be a brief episode of an ectopic atrial rhythm/tachycardia. She appeared to be without obvious symptoms or hemodynamic compromise. At the present time based upon review of her cardiac nurse monitoring she has remained in sinus rhythm without obvious recurrence of any dysrhythmia. (3) Anemia: PLAN: The etiology of her anemia appears to be unclear at this time. She received PRBCs. Her hemoglobin level transiently increased and then it has decreased. Her hemoglobin remains low with a hemoglobin of approximately 7.4. She has been undergoing additional gastrointestinal evaluation and care. She may need additional PRBCs to assist with her oxygen carrying capacity. If she proceeds with hemodialysis then this may be the time to proceed with PRBCs to help manage her volume status. (4) Acute kidney injury: PLAN: She does have a history of what appears to be chronic renal insufficiency which during this event has markedly worsened. Her creatinine initially improved somewhat since receiving PRBCs. However, as her hemoglobin declined her creatinine level has increased again. It has continued to increase. She has been evaluated by nephrology. It appears that the tentative plan, depending upon her renal function, is to proceed with hemodialysis. (5) Hypertension: PLAN: She has been started on additional antihypertensive therapy with hydralazine. Her blood pressure is being monitored. This dose may need to be increased depending upon her blood pressure response to hemodialysis. (6) Diabetes: QUALIFIERS: Diabetes mellitus type: type 2 PLAN: She will continue evaluation care per internal medicine. Addt'l Comments This note was generated using a voice recognition system and there may be incorrect words, spelling or punctuation that were not noted when reviewing the office note prior to saving. Procedure Criteria Type of Procedure Procedure Type: Elective Elective Risks - COVID COVID Risk Discussion: The surgeon/proceduralist and patient have discussed in detail the risk of exposure to and/or potential harm posed by the COVID-19 virus with having a surgery/procedure at this time versus the risk of delaying the surgery/procedure. It is not possible to know either the risk of delaying the surgery or procedure or chance of getting an infection with perfect accuracy, but a joint decision was made between the patient and the surgeon/proceduralist to proceed at this time with the scheduled surgery/procedure as indicated on the consent form.
[2021-09-03] MEDS: amLODIPine 10 MG Tablet PO (09:45)
[2021-09-03] MEDS: Carvedilol 25 MG Tablet PO ×2 (09:45→17:07)
[2021-09-03] MEDS: Sodium Bicarbonate 650 MG Tablet PO ×4 (09:45→21:45)
[2021-09-03 11:35] LABS: Bedside Glucose 109 mg/dL (70-110)
--- NOTE | 2021-09-03 13:23 | PCM.PN.REN ---
Subjective Subjective No new complaints today. Breathing is acceptable. No abdominal pain. Creatinine is higher. Objective Data Objective Data Vital Signs: Vital Signs Temp Pulse Resp BP Pulse Ox 98.8 F 68 18 149/58 H 95 09/03/21 09:40 09/03/21 11:00 09/03/21 09:40 09/03/21 09:40 09/03/21 09:40 Oxygen Flow Rate (L/min) 2 Oxygen Delivery Method Room Air Weight: 81.647 kg Body Mass Index (BMI) 30.9 Intake & Output: Intake and Output for Last 24 Hours 09/01/21 09/02/21 09/03/21 23:59 23:59 23:59 Intake Total 2755.83 / 2755.83 660 / 760 250 / 250 Output Total 725 / 875 750 / 900 500 / 500 Balance 2030.83 / 1880.83 -90 / -140 -250 / -250 Lab / Micro Data Result Diagrams: 09/02/21 05:16 09/03/21 05:15 Labs: Laboratory Results - last 24 hr 09/02/21 16:50: POC Glucose 101 09/02/21 21:06: POC Glucose 105 09/03/21 05:15: PT 15.0 H, INR 1.3, APTT 29.9 09/03/21 05:15: Sodium 140, Potassium 5.0, Chloride 116 H, Carbon Dioxide 14.0 L, BUN 67 H, Creatinine 6.18 H, Estim Creat Clear Calc 7.94, Est GFR (MDRD) Af Amer 9 L, Est GFR (MDRD) Non-Af 7 L, BUN/Creatinine Ratio 10.8, Glucose 87, Calcium 7.8 L, Phosphorus 6.4 H, Albumin 2.0 L 09/03/21 06:40: POC Glucose 85 09/03/21 11:27: POC Glucose 109 Micro: Microbiology 08/27/21 21:13 Blood Culture (Wb) - Anticubital Left Blood Culture - Final No growth in 5 days. 08/27/21 21:20 Blood Culture (Wb) - Anticubital Right Blood Culture - Final No growth in 5 days. 08/28/21 11:30 Stool Stool Occult Blood (SIMONE) - Final Occult Blood Positive 08/27/21 19:25 Nasal Secretion SARS-CoV-2 Antigen (Rapid) - Final Physical Exam Narrative Alert awake oriented x 3 no obvious distress no pallor no icterus no JVD s1s2 no murmurs lungs clear abdomen soft no organomegaly no edema no cyanosis Assessment & Plan Assessment/Plan (1) AGGIE (acute kidney injury): PLAN: AGGIE is most likely secondary to ischemic ATN. Fractional secretion sodium was greater than 1% on 08/28/2021. There was no evidence of obstruction of the urinary tract based on CT scan of the abdomen and pelvis from 08/27/2021. I have low suspicion for other causes of AGGIE at this point since urinalysis did not show any significant RBCs. Proteinuria can be ascribed to her longstanding history of diabetes mellitus. Creatinine was 5.88 mg/dL on admission 08/27/2021, SCr improved to 4.17 mg/dL 08/29. Unfortunately, serum creatinine has increased again She is significantly net positive. I did discuss with her about dialysis. She says she would like to talk to her family members first. Immediate family listed is a grandson. I did call him at the number listed multiple times but the number came back busy with no option to leave voicemail. I advised the patient to speak to her grandson and let me know what they decide. Discussed with hospitalist (2) Chronic kidney disease, stage 3a: PLAN: The patient likely has underlying chronic kidney disease stage 3. Elevated Creatinine since 2019, and serum creatinine from 03/08/20 was 1.33 mg/dL. (3) Metabolic acidosis: PLAN: Somewhat better. Continue oral bicarbonate (4) Hypertension: PLAN: Continue to hold lisinopril and furosemide for now because of AGGIE. Continue amlodipine and carvedilol. The patient is also on scheduled hydralazine. Blood pressure is acceptable. (5) Community acquired pneumonia: (6) Anemia: PLAN: Hgb 5.7 08/28, received 2units PRBC. Hemoglobin is stable at 7.4 today. The patient is being followed by GI service. (7) Type II diabetes mellitus: QUALIFIERS: Diabetes mellitus complication status: with hyperglycemia Diabetes mellitus terminal makeup operator insulin use: without terminal makeup operator use Qualified Code(s): E11.65 - Type 2 diabetes mellitus with hyperglycemia PLAN: Glycemic control as per primary service.
--- NOTE | 2021-09-03 16:23 | PN.HOSP_ITS ---
Subjective Subjective Complains of pain in her throat, but denies a sore throat. +SOB. Objective Data Objective Data Vital Signs: Vital Signs Temp Pulse Resp BP Pulse Ox 36.9 C 70 18 134/49 H 92 09/03/21 14:30 09/03/21 15:00 09/03/21 14:30 09/03/21 14:33 09/03/21 14:30 Oxygen Flow Rate (L/min) 2 Oxygen Delivery Method Room Air Weight: 81.647 kg Body Mass Index (BMI) 30.9 Intake & Output: Intake and Output for Last 24 Hours 09/01/21 09/02/21 09/03/21 23:59 23:59 23:59 Intake Total 2755.83 / 2755.83 660 / 760 250 / 250 Output Total 725 / 875 750 / 900 500 / 500 Balance 2030.83 / 1880.83 -90 / -140 -250 / -250 Lab / Micro Data Result Diagrams: 09/02/21 05:16 09/03/21 05:15 Labs: Laboratory Results - last 24 hr 09/02/21 16:50: POC Glucose 101 09/02/21 21:06: POC Glucose 105 09/03/21 05:15: PT 15.0 H, INR 1.3, APTT 29.9 09/03/21 05:15: Sodium 140, Potassium 5.0, Chloride 116 H, Carbon Dioxide 14.0 L , BUN 67 H, Creatinine 6.18 H, Estim Creat Clear Calc 7.94, Est GFR (MDRD) Af Amer 9 L, Est GFR (MDRD) Non-Af 7 L, BUN/Creatinine Ratio 10.8, Glucose 87, Calcium 7.8 L, Phosphorus 6.4 H, Albumin 2.0 L 09/03/21 06:40: POC Glucose 85 09/03/21 11:27: POC Glucose 109 Micro: Microbiology 08/27/21 21:13 Blood Culture (Wb) - Anticubital Left Blood Culture - Final No growth in 5 days. 08/27/21 21:20 Blood Culture (Wb) - Anticubital Right Blood Culture - Final No growth in 5 days. 08/28/21 11:30 Stool Stool Occult Blood (SIMONE) - Final Occult Blood Positive 08/27/21 19:25 Nasal Secretion SARS-CoV-2 Antigen (Rapid) - Final Physical Exam Const alert Resp normal respiratory effort, no retractions, no use of accessory muscles and clear to auscultation bilaterally Cardio regular rate, regular rhythm, S1 normal heart sound and S2 normal heart sound GI normal to inspection, nondistended, normoactive bowel sounds, soft to palpation, non-tender and non-distended Extremity normal to inspection Assessment & Plan Assessment/Plan (1) AGGIE (acute kidney injury): (2) NSTEMI, initial episode of care: PLAN: 1. AGGIE suspected ATN worsening Nephrology dw pt about HD. Pt deferred to grandson, but nephrology unable to contact. 2. NSTEMI may be type II event cardiology following but deferring additional work at this time EF 60% on echo 3. Acute blood loss anemia stable s/p 2 units PRBCs monitor heme positive stools 4. Pneumonia, suspected pneumococcal on levofloxacin 1 more dose 5. heme positive stools colonoscopy showed diverticulosis PPI 6. VTE prophylaxis: SCDs. Charges/Coding Visit Charges Inpatient E&M: 58069 Subs Hosp L2
[2021-09-03 16:26] LABS: Bedside Glucose 114 mg/dL (70-110)
[2021-09-03 21:50] LABS: Bedside Glucose 102 mg/dL (70-110)
[2021-09-04] VITALS (25 sets, daily range): BP systolic 121–175; BP diastolic 48–70; PULSE 69–82; RESP 16–22; TEMP 36.4–37.4; O2SAT 90–97; BMI 30.9
[2021-09-04] MEDS: hydrALAZINE 25 MG Tablet PO ×3 (05:00→21:20)
[2021-09-04 06:43] LABS: Absolute Lymphocyte Count 1.22 X10^3/uL (0.83-4.51); Absolute Neutrophil Count 3.8 X10^3/uL (2.0-7.7); Basophil# 0.03 X10^3/uL; Basophil% 0.5 % (0-1); Eosinophil# 0.07 X10^3/uL; Eosinophils% 1.2 % (0-5); Hematocrit 24.1 % (37-47); Hemoglobin 7.4 g/dL (12.0-15.0); Lymphocyte # 1.22 X10^3/ul (0.83-4.51); Lymphocyte % 21.6 % (19-41); Mean Corp Hgb Conc 30.7 g/dL (32-36); Mean Corpuscular Volume 91.3 fL (81-99); Mean Platelet Vol. 9.5 fl (6.2-12.0); Monocyte# 0.49 X10^3/uL; Monocyte% 8.7 % (0-10); NRBC Flagged by Analyzer 0 % (0-5); Neutrophil % 67.3 % (47-70); Platelet Count 229 K/mm3 (150-450); RBC Distribution Width CV 13.8 % (11.6-14.6); RBC Distribution Width SD 45.2 fl (35.1-43.9); Red Blood Count 2.64 M/mm3 (4.2-5.4); White Blood Count 5.7 K/mm3 (4.4-11.0)
[2021-09-04] MEDS: Ipratropium/Albuterol Sulfate 3 ML AMPUL.NEB INHALATION ×3 (06:50→18:57)
[2021-09-04 06:55] LABS: Bedside Glucose 83 mg/dL (70-110)
[2021-09-04 07:25] LABS: ALB/GLOB Ratio 0.4 RATIO (0.9-2.4); AST(SGOT) 29 U/L (15-37); Alanine Aminotransfer ALT/SGPT 25 U/L (13-56); Albumin, Serum 2.1 g/dL (3.2-5.0); Alkaline Phosphatase 74 U/L (45-117); Anion Gap 11 (5-15); BUN 76 mg/dL (7-18); BUN/Creat Ratio 11.9 RATIO (10-20); Calcium,Total 7.9 mg/dL (8.5-10.1); Chloride 117 mmol/L (98-107); Creatinine, Serum 6.38 mg/dL (0.55-1.02); EST Glomerular Filtration Rate 7 mL/min (>60); Est Glom Filt Rate - Afr Amer 9 mL/min (>60); Estimated Creatinine Clearance 7.69 ml/min; Globulin 5.2 g/dL (2.2-4.2); Glucose 85 mg/dL (74-106); Potassium 4.9 mmol/L (3.5-5.1); Protein, Total 7.3 g/dL (6.4-8.2); Sodium Level 142 mmol/L (136-145)
--- NOTE | 2021-09-04 08:46 | PN.CARD_ITS ---
Subjective Subjective The patient remains without any acute chest discomfort at this time. Objective Data Vital Signs: Vital Signs Temp Pulse Resp BP Pulse Ox 97.5 F L 82 20 H 142/50 H 90 09/04/21 04:20 09/04/21 07:00 09/04/21 06:51 09/04/21 05:00 09/04/21 06:51 Oxygen Flow Rate (L/min) 2 Oxygen Delivery Method Room Air Weight: 180 lb 0.013 oz Body Mass Index (BMI) 30.9 Intake & Output: Intake and Output for Last 24 Hours 09/02/21 09/03/21 09/04/21 23:59 23:59 23:59 Intake Total 660 / 760 490 / 490 Output Total 750 / 900 2060 / 2060 100 / 100 Balance -90 / -140 -1570 / -1570 -100 / -100 Lab / Micro Data Result Diagrams: 09/04/21 05:10 09/04/21 05:10 Labs: Laboratory Results - last 24 hr 09/03/21 11:27: POC Glucose 109 09/03/21 16:11: POC Glucose 114 H 09/03/21 21:34: POC Glucose 102 09/04/21 05:10: WBC 5.7, RBC 2.64 L, Hgb 7.4 L, Hct 24.1 L, MCV 91.3, MCH 28.0, MCHC 30.7 L, RDW Std Deviation 45.2 H, RDW Coeff of Dottie 13.8, Plt Count 229, MPV 9.5, Immature Gran % (Auto) 0.700, Neut % (Auto) 67.3, Lymph % (Auto) 21.6, [place] % (Auto) 8.7, Eos % (Auto) 1.2, Baso % (Auto) 0.5, Absolute Neuts (auto) 3.8, Absolute Lymphs (auto) 1.22, Nucleated RBC % 0 09/04/21 05:10: Sodium 142, Potassium 4.9, Chloride 117 H, Carbon Dioxide 14.0 L , Anion Gap 11, BUN 76 H, Creatinine 6.38 H, Estim Creat Clear Calc 7.69, Est GFR (MDRD) Af Amer 9 L, Est GFR (MDRD) Non-Af 7 L, BUN/Creatinine Ratio 11.9, Glucose 85, Calcium 7.9 L, Total Bilirubin 0.30, AST 29, ALT 25, Alkaline Phosphatase 74, Total Protein 7.3, Albumin 2.1 L, Globulin 5.2 H, Albumin/Globulin Ratio 0.4 L 09/04/21 06:50: POC Glucose 83 Cardiology Labs/Tests 09/04/21 05:10: WBC 5.7, RBC 2.64 L, Hgb 7.4 L, Hct 24.1 L, MCV 91.3, MCH 28.0, MCHC 30.7 L, Plt Count 229, MPV 9.5, Immature Gran % (Auto) 0.700, Neut % (Auto) 67.3, Lymph % (Auto) 21.6, [place] % (Auto) 8.7, Eos % (Auto) 1.2, Baso % (Auto) 0.5, Absolute Neuts (auto) 3.8, Nucleated RBC % 0 09/04/21 05:10: Sodium 142, Potassium 4.9, Chloride 117 H, Carbon Dioxide 14.0 L , Anion Gap 11, BUN 76 H, Creatinine 6.38 H, Est GFR (MDRD) Af Amer 9 L, Est GFR (MDRD) Non-Af 7 L, BUN/Creatinine Ratio 11.9, Glucose 85, Calcium 7.9 L, Total Bilirubin 0.30 Rhythm: Sinus rhythm/sinus arrhythmia Physical Exam Const alert, oriented x3 and no apparent distress Orientation / Consciousness: awake HEENT normocephalic, head/scalp atraumatic and hearing grossly normal bilaterally Eyes PERRL, EOMs intact bilaterally and conjunctivae normal Neck full ROM, supple and no JVD Chest inspection of chest normal Resp normal respiratory effort and clear to auscultation bilaterally Cardio regular rate, regular rhythm, S1 normal heart sound and S2 normal heart sound GI normal to inspection, nondistended, normoactive bowel sounds Extremity no pedal edema Skin no rashes or lesions noted Neuro oriented x3 and moves all extremities Psych mental status grossly normal Assessment & Plan Assessment/Plan (1) NSTEMI, initial episode of care: PLAN: The patient has abnormal cardiac enzymes which have raise concern of a non-ST segment elevation PA. At the moment the patient does not appear to have any acute coronary syndrome symptoms nor does she have any acute ECG changes. She does not appear to have any left ventricular wall motion abnormalities. Thus there are concerns that her abnormal cardiac enzymes concerning for non-ST segment elevation PA may be a type II event brought out by her marked anemia and marked renal insufficiency. At the present time she will continue to be monitored. Over time consideration can be given as to whether she develops the need for additional noninvasive or invasive cardiovascular testing. However it be reasonable to further evaluate and correct her underlying anemia and renal insufficiency prior to proceeding in such a manner. (2) Cardiac dysrhythmia, unspecified: PLAN: She did have what appeared to be a brief episode of an ectopic atrial rhythm/tachycardia. She appeared to be without obvious symptoms or hemodynamic compromise. At the present time based upon review of her cardiac air sampling and monitoring she has remained in sinus rhythm without obvious recurrence of any dysrhythmia. (3) Anemia: PLAN: The etiology of her anemia appears to be unclear at this time. She received PRBCs. Her hemoglobin level transiently increased and then it has decreased. Her hemoglobin level remains low at 7.4. She has been undergoing additional gastrointestinal evaluation and care. She may need additional PRBCs to assist with her oxygen carrying capacity. If she proceeds with hemodialysis then this may be the time to proceed with PRBCs to help manage her volume status. (4) Acute kidney injury: PLAN: She does have a history of what appears to be chronic renal i nsufficiency which during this event has markedly worsened. Her creatinine level continues to increase. She has been evaluated by nephrology. She is n.p.o. today with a tentative plan for dialysis catheter placement and subsequent dialysis. (5) Hypertension: PLAN: She has been started on additional antihypertensive therapy with hydralazine. Her blood pressures have improved overall. Hopefully with dialysis they will come under better control. (6) Diabetes: QUALIFIERS: Diabetes mellitus type: type 2 PLAN: She will continue evaluation care per internal medicine. Addt'l Comments This note was generated using a voice recognition system and there may be incorrect words, spelling or punctuation that were not noted when reviewing the office note prior to saving.
--- NOTE | 2021-09-04 10:09 | CASEMGMT ---
Addendum entered by Hawa Loya 09/04/21 16:28: Grandsons number updated in chart. Call to grandson, Ki, to update on all, voices understanding. Ki states that he lives in [place] and that pt lives with his sister but sister does not drive. Ki states he should be able to take pt to first treatment but pt will need transportation set up from there. Pt had tunnel cath placed today and op notes, CXR and hep results faxed to [facility] admissions and call to [facility] to update on referral. Message left with Susu LEIGH at [facility] that pt will need set up with transportation. CM to follow. Abdelrahman JORDAN CM Addendum entered by Hawa Loya 09/04/21 10:32: Pt states efrem is at work and asks this RN CM to wait to call him at this time. Abdelrahman JORDAN CM Original Note: Per Dr. Gaytan, pt needs set up with OP HD. This RN CM to room and pt states no preference for HD clinic. Pt states her grandson/[id number] drive her. Referral placed in [facility] portal and faxed to [facility] and [facility]. Pt does not state any preference on chair time. CM to follow. Abdelrahman JORDAN CM
--- NOTE | 2021-09-04 10:15 | CON.PCM_ITS ---
Assessment & Plan Assessment/Plan (1) Chronic kidney disease, stage V requiring chronic dialysis: PLAN: I am seeing this patient in conjunction with Dr. Almaraz. She will independently evaluate this patient. I have discussed this patient with Dr. Almaraz. Dr. Almaraz will plan to perform a right possible left chest tunneled dialysis catheter placement. Procedure details, risks and benefits have been explained. Patient has had the opportunity to ask and have questions answered. Patient verbally understands and agrees with the plan. Patient's nurse spoke to patient's family who are agreeable for patient to have dialysis. Patient is also agreeable to dialysis. She has been NPO. We will proceed with catheter placement today. Thank you for allowing us to participate in this patient's care. HPI Consult Data Date of Consult: 09/04/21 HPI Narrative HPI Narrative: NATALI KINSEY, is a 66 F who presents with 3 day history of a cough. She was diagnosed with pneumonia. Her renal function unfortunately has been declining during her hospitalization. Dr. Gaytan has recommended dialysis to be initiated. She notes a history of COPD and high blood pressure. She denies history of myocardial infarction, blood clots. She notes history of stroke. She is not on any blood thinners at home. She has never been on dialysis. She denies previous IV in the neck region. She denies previous complications with anesthesia. [facility] Medical History (Updated 09/04/21 @ 10:21 by Heather JOHNSON, PA-C) Asthma Cardiac dysrhythmia, unspecified Chest pain Chronic kidney disease, stage V requiring chronic dialysis Diabetes Hypertension Rheumatoid arthritis SOB (shortness of breath) Stroke Home Medications amlodipine 5 mg tablet See Rx Instructions .ROUTE .COMPLEX #90 tab 11/22/20 [Rx Last Taken Unknown] ipratropium 0.5 mg-albuterol 3 mg (2.5 mg base)/3 mL nebulization soln 3 ml INHALATION Q6HWA.RT PRN #90 ml 11/23/20 [Rx Last Taken Unknown] carvedilol 12.5 mg tablet 12.5 mg PO BID 11/28/20 [History Last Taken Unknown] hydrochlorothiazide 12.5 mg tablet 12.5 mg PO DAILY #90 tab 05/07/21 [Rx Last Taken Unknown] lisinopril 20 mg tablet 20 mg PO DAILY #90 tab 05/07/21 [Rx Last Taken Unknown] lanolin-mineral oil lotion 1 applic TOPICAL DAILY PRN #500 ml 05/25/21 [Rx Last Taken Unknown] Allergy/AdvReac Type Severity Reaction Status Date / Time ceftriaxone Allergy Severe Rash Verified 08/27/21 17:25 vancomycin Allergy Severe Rash Verified 08/27/21 17:25 Penicillins Allergy Swelling Verified 08/27/21 17:25 oxycodone HCl [From Percocet] AdvReac Itching Verified 08/27/21 17:25 Family History Mother Hypertension Emphysema/COPD Sister Hypertension Surgical History H/O: hysterectomy History of eye surgery knee scope Social History Smoking Status: Former smoker alcohol intake: current details: 1 per week substance use type: does not use what type of physical activity do you participate in: none ROS Constitutional Constitutional: Reports systems reviewed and no addt'l complaints, except as documented Eyes Eyes: Reports systems reviewed and no addt'l complaints, except as documented ENT HEENT: Reports systems reviewed and no addt'l complaints, except as documented Cardiovascular Cardiovascular: Reports systems reviewed and no addt'l complaints, except as documented Respiratory/Chest Respiratory/Chest: Reports systems reviewed and no addt'l complaints, except as documented Gastrointestinal Gastrointestinal: Reports systems reviewed and no addt'l complaints, except as documented Genitourinary Genitourinary: Reports systems reviewed and no addt'l complaints, except as documented Musculoskeletal Musculoskeletal: Reports systems reviewed and no addt'l complaints, except as documented Integumentary Integumentary: Reports systems reviewed and no addt'l complaints, except as documented Neurologic Neurologic: Reports systems reviewed and no addt'l complaints, except as documented Psychiatric Psychiatric: Reports systems reviewed and no addt'l complaints, except as documented Endocrine Endocrinology: Reports systems reviewed and no addt'l complaints, except as documented Hematologic/Lymphatic Hematologic/Lymphatic: Reports systems reviewed and no addt'l complaints, except as documented Allergic/Immunologic Allergic/Immunologic: Reports systems reviewed and no addt'l complaints, except as documented Physical Exam Const alert, oriented x3 and no apparent distress HEENT normocephalic Eyes PERRL and EOMs intact bilaterally Neck full ROM Lymph Lymphatic: no lymphadenopathy noted Chest inspection of chest normal Resp normal respiratory effort Auscultation: wheezes expiratory wheezes Cardio regular rate and regular rhythm GI normal to inspection, nondistended, normoactive bowel sounds no CVA tenderness Back/Spine no CVA tenderness Extremity normal to inspection Skin no rashes or lesions noted Neuro oriented x3 and no focal motor deficits Psych mental status grossly normal Mood & Affect: depressed Lab / Micro Data Result Diagrams: 09/04/21 05:10 09/04/21 05:10 Labs: Laboratory Results - last 24 hr 09/03/21 11:27: POC Glucose 109 09/03/21 16:11: POC Glucose 114 H 09/03/21 21:34: POC Glucose 102 09/04/21 05:10: WBC 5.7, RBC 2.64 L, Hgb 7.4 L, Hct 24.1 L, MCV 91.3, MCH 28.0, MCHC 30.7 L, RDW Std Deviation 45.2 H, RDW Coeff of Dottie 13.8, Plt Count 229, MPV 9.5, Immature Gran % (Auto) 0.700, Neut % (Auto) 67.3, Lymph % (Auto) 21.6, [place] % (Auto) 8.7, Eos % (Auto) 1.2, Baso % (Auto) 0.5, Absolute Neuts (auto) 3.8, Absolute Lymphs (auto) 1.22, Nucleated RBC % 0 09/04/21 05:10: Sodium 142, Potassium 4.9, Chloride 117 H, Carbon Dioxide 14.0 L , Anion Gap 11, BUN 76 H, Creatinine 6.38 H, Estim Creat Clear Calc 7.69, Est GFR (MDRD) Af Amer 9 L, Est GFR (MDRD) Non-Af 7 L, BUN/Creatinine Ratio 11.9, Glucose 85, Calcium 7.9 L, Total Bilirubin 0.30, AST 29, ALT 25, Alkaline Phosphatase 74, Total Protein 7.3, Albumin 2.1 L, Globulin 5.2 H, Albumi n/Globulin Ratio 0.4 L 09/04/21 06:50: POC Glucose 83 Charges/Coding Visit Charges Office Visits / Consults: [id number] IP Consult L3
--- NOTE | 2021-09-04 10:23 | PCM.PN.REN ---
Subjective Subjective no new complaints Objective Data Objective Data Vital Signs: Vital Signs Temp Pulse Resp BP Pulse Ox 99.3 F H 76 18 157/48 H 96 09/04/21 10:20 09/04/21 10:20 09/04/21 10:20 09/04/21 10:20 09/04/21 10:20 Oxygen Flow Rate (L/min) 2 Oxygen Delivery Method Room Air Weight: 81.647 kg Body Mass Index (BMI) 30.9 Intake & Output: Intake and Output for Last 24 Hours 09/02/21 09/03/21 09/04/21 23:59 23:59 23:59 Intake Total 660 / 760 490 / 490 Output Total 750 / 900 2060 / 2060 100 / 100 Balance -90 / -140 -1570 / -1570 -100 / -100 Lab / Micro Data Result Diagrams: 09/04/21 05:10 09/04/21 05:10 Labs: Laboratory Results - last 24 hr 09/03/21 11:27: POC Glucose 109 09/03/21 16:11: POC Glucose 114 H 09/03/21 21:34: POC Glucose 102 09/04/21 05:10: WBC 5.7, RBC 2.64 L, Hgb 7.4 L, Hct 24.1 L, MCV 91.3, MCH 28.0, MCHC 30.7 L, RDW Std Deviation 45.2 H, RDW Coeff of Dottie 13.8, Plt Count 229, MPV 9.5, Immature Gran % (Auto) 0.700, Neut % (Auto) 67.3, Lymph % (Auto) 21.6, [place] % (Auto) 8.7, Eos % (Auto) 1.2, Baso % (Auto) 0.5, Absolute Neuts (auto) 3.8, Absolute Lymphs (auto) 1.22, Nucleated RBC % 0 09/04/21 05:10: Sodium 142, Potassium 4.9, Chloride 117 H, Carbon Dioxide 14.0 L, Anion Gap 11, BUN 76 H, Creatinine 6.38 H, Estim Creat Clear Calc 7.69, Est GFR (MDRD) Af Amer 9 L, Est GFR (MDRD) Non-Af 7 L, BUN/Creatinine Ratio 11.9, Glucose 85, Calcium 7.9 L, Total Bilirubin 0.30, AST 29, ALT 25, Alkaline Phosphatase 74, Total Protein 7.3, Albumin 2.1 L, Globulin 5.2 H, Albumin/Globulin Ratio 0.4 L 09/04/21 06:50: POC Glucose 83 Micro: Microbiology 08/27/21 21:13 Blood Culture (Wb) - Anticubital Left Blood Culture - Final No growth in 5 days. 08/27/21 21:20 Blood Culture (Wb) - Anticubital Right Blood Culture - Final No growth in 5 days. 08/28/21 11:30 Stool Stool Occult Blood (SIMONE) - Final Occult Blood Positive 08/27/21 19:25 Nasal Secretion SARS-CoV-2 Antigen (Rapid) - Final Physical Exam Narrative Alert awake oriented x 3 no obvious distress no pallor no icterus no JVD s1s2 no murmurs lungs clear abdomen soft no organomegaly no edema no cyanosis Assessment & Plan Assessment/Plan (1) AGGIE (acute kidney injury): PLAN: AGGIE is most likely secondary to ischemic ATN. Fractional secretion sodium was greater than 1% on 08/28/2021. There was no evidence of obstruction of the urinary tract based on CT scan of the abdomen and pelvis from 08/27/2021. I have low suspicion for other causes of AGGIE at this point since urinalysis did not show any significant RBCs. Proteinuria can be ascribed to her longstanding history of diabetes mellitus. Creatinine was 5.88 mg/dL on admission 08/27/2021, SCr improved to 4.17 mg/dL 08/29. Unfortunately, serum creatinine has increased again She is significantly net positive. I did discuss with her about dialysis. she agreed for HD today. surgery consult for tunneled line placement. (2) Chronic kidney disease, stage 3a: PLAN: The patient likely has underlying chronic kidney disease stage 3. Elevated Creatinine since 2019, and serum creatinine from 03/08/20 was 1.33 mg/dL. (3) Metabolic acidosis: PLAN: Somewhat better. Continue oral bicarbonate (4) Hypertension: PLAN: Continue to hold lisinopril and furosemide for now because of AGGIE. Blood pressure is acceptable. (5) Community acquired pneumonia: (6) Anemia: PLAN: Hgb 5.7 08/28, received 2units PRBC. (7) Type II diabetes mellitus: QUALIFIERS: Diabetes mellitus complication status: with hyperglycemia Diabetes mellitus terminal computer operator insulin use: without terminal computer operator use Qualified Code(s): E11.65 - Type 2 diabetes mellitus with hyperglycemia PLAN: Glycemic control as per primary service.
[2021-09-04] MEDS: Bupivacaine 0.25% 30 ML Vial (11:04)
[2021-09-04] MEDS: Heparin 10,000 UNITS/10 ML Vial 10000 UNITS (11:04)
--- NOTE | 2021-09-04 11:29 | PCM.OPRPT ---
Report of Operation Date of Procedure: 09/04/21 Pre-Operative Diagnosis: Chronic kidney disease requiring dialysis Post-Operative Diagnosis: Same Surgery/Procedure Performed:: Placement of right IJ tunneled dialysis catheter Surgeon: Emily Almaraz Type of Anesthesia: Local MAC Anesthesiologist: Tommy Mobley Special Medications: Clindamycin 900 mg IV x1 Specimen's removed: None Estimated Blood Loss (mL): < 10 cc Description of Procedure: After informed consent was given, the patient was brought to the operating room and placed in the supine position. Appropriate time out protocol was followed. She was then given IV conscious sedation for anesthesia. The patient's right upper chest and neck were then prepped with a surgical skin preparation and sterile surgical drapes were placed. After proper landmarks were ascertained, the skin at the upper right chest area was then infiltrated with 1:1 mixture of 1% lidocaine with epinephrine and 0.5% maricaine?patient was noted to have a dilated external jugular vein?make sure to stay inferior to this. A needle trocar was then inserted into the right internal jugular vein with ultrasound guidance-multiple vessels were viewed with u/s and the right IJ was chosen-- and there was good aspiration of venous blood. A wire was then threaded into the needle trocar and this was visualized under fluoroscopy to ensure that the wire was in the superior vena cava. Once this was done, then the needle trocar was removed. A small incision was made with an 11 blade knife at the wire entrance site. The dilator x2 with the introducer sheath attached was then placed over the wire into the right internal jugular vein via the Seldinger technique and this was visualized under fluoroscopy. Next the introducer and sheath were in proper position as visualized by fluoroscopy. The location of the cuffed was estimated on the skin, an incision was made with a 15 blade scalpel. The 14.5 Fr x 19 cm Palindrome dual lumen (Lot [id number] reference [id number]) was tunneled from the chest incision to the right neck incision. The sheath was removed. The catheter was placed through the introducer and was positioned with its tip at the junction of the superior vena cava and the right atrium as visualized under fluoroscopy. The cuff of the catheter was in the subcutaneous tissue. The catheter flushed and courtney well with saline. Catheter was also flushed with 1.6 cc of 1-10,000 of heparin. Hemostasis was assured. Silver dressing was placed at the catheter exit site. Catheter was sutured with 3-0 nylon sutures. The neck incision was sutured with interrupted 3-0 Vicryl interrupted sutures x2 and Steri-Strips were placed. A large OpSite was placed over the catheter site and a small OpSite over the neck incision. The patient tolerated the procedure well. Grafts/Implants Used: 14.5 Fr x 19 cm Palindrome dual lumen (Lot [id number] reference [id number] Complications none
--- NOTE | 2021-09-04 11:45 | RAD_ITS ---
STUDY: X-RAY CHEST REASON FOR EXAM: Female, 66 years old. Dialysis cath -- pacu TECHNIQUE: Single AP portable view of the chest. COMPARISON: Comparison is made with prior study of 08/27/2021. FINDINGS: A right-sided double-lumen dialysis catheter has been placed. The tip is at the junction of the superior vena cava and right atrium. New right pleural effusion and right basilar atelectasis and/or infiltrate. There is blunting of left costophrenic angle with left basilar atelectasis. Normal size heart. Normal mediastinum and gaye. Normal visualized pulmonary arteries. There is atherosclerotic calcification of the aortic arch with tortuosity. There are diffuse degenerative changes of the visualized thoracic spine. Normal visualized ribs, clavicles, and shoulders. There is no demonstrated abnormality of the visualized soft tissue structures of the upper abdomen. RAD/CXR for Line Placement IMPRESSION: The tip of the right-sided double-lumen dialysis catheter is at the junction of the superior vena cava and right atrium. Right pleural effusion with right basilar atelectasis and/or infiltrate. Blunting of the left costophrenic angle and left basilar atelectasis. Electronically Signed: Tacho Russell MD at 12:21 EST , Service support ,
--- NOTE | 2021-09-04 12:43 | PCM.PN.HOSP ---
Documented by User: ART Lee 09/04/21 12:50 Subjective Subjective Patient seen and examined. Patient lying in bed no distress noted. Patient going for dialysis catheter placement this morning. Objective Data Objective Data Vital Signs: Vital Signs Temp Pulse Resp BP Pulse Ox 98.2 F 70 16 136/59 H 94 09/04/21 12:28 09/04/21 12:28 09/04/21 12:28 09/04/21 12:28 09/04/21 12:28 Oxygen Flow Rate (L/min) 2 Oxygen Delivery Method Room Air Weight: 180 lb 0.013 oz Body Mass Index (BMI) 30.9 Intake & Output: Intake and Output for Last 24 Hours 09/02/21 09/03/21 09/04/21 23:59 23:59 23:59 Intake Total 660 / 760 490 / 490 106 / 106 Output Total 750 / 900 2059 / 2059 300 / 300 Balance -90 / -140 -1570 / -1570 -194 / -194 Lab / Micro Data Result Diagrams: 09/04/21 05:10 09/04/21 05:10 Labs: Laboratory Results - last 24 hr 09/03/21 16:11: POC Glucose 114 H 09/03/21 21:34: POC Glucose 102 09/04/21 05:10: WBC 5.7, RBC 2.64 L, Hgb 7.4 L, Hct 24.1 L, MCV 91.3, MCH 28.0, MCHC 30.7 L, RDW Std Deviation 45.2 H, RDW Coeff of Dottie 13.8, Plt Count 229, MPV 9.5, Immature Gran % (Auto) 0.700, Neut % (Auto) 67.3, Lymph % (Auto) 21.6, [place] % (Auto) 8.7, Eos % (Auto) 1.2, Baso % (Auto) 0.5, Absolute Neuts (auto) 3.8, Absolute Lymphs (auto) 1.22, Nucleated RBC % 0 09/04/21 05:10: Sodium 142, Potassium 4.9, Chloride 117 H, Carbon Dioxide 14.0 L, Anion Gap 11, BUN 76 H, Creatinine 6.38 H, Estim Creat Clear Calc 7.69, Est GFR (MDRD) Af Amer 9 L, Est GFR (MDRD) Non-Af 7 L, BUN/Creatinine Ratio 11.9, Glucose 85, Calcium 7.9 L, Total Bilirubin 0.30, AST 29, ALT 25, Alkaline Phosphatase 74, Total Protein 7.3, Albumin 2.1 L, Globulin 5.2 H, Albumin/Globulin Ratio 0.4 L 09/04/21 06:50: POC Glucose 83 Micro: Microbiology 08/27/21 21:13 Blood Culture (Wb) - Anticubital Left Blood Culture - Final No growth in 5 days. 08/27/21 21:20 Blood Culture (Wb) - Anticubital Right Blood Culture - Final No growth in 5 days. 08/28/21 11:30 Stool Stool Occult Blood (SIMONE) - Final Occult Blood Positive 08/27/21 19:25 Nasal Secretion SARS-CoV-2 Antigen (Rapid) - Final Radiography Diagnostic Testing: Radiology Impression Chest X-Ray 09/04/21 11:45 IMPRESSION: The tip of the right-sided double-lumen dialysis catheter is at the junction of the superior vena cava and right atrium. Right pleural effusion with right basilar atelectasis and/or infiltrate. Blunting of the left costophrenic angle and left basilar atelectasis. Electronically Signed: Tacho Russell MD at 12:21 EST , Service support , Physical Exam Const alert HEENT head/scalp atraumatic Head and Scalp: normocephalic Eyes conjunctivae normal and no scleral icterus Resp normal respiratory effort and clear to auscultation bilaterally Cardio regular rate, regular rhythm, S1 normal heart sound and S2 normal heart sound GI normal to inspection, nondistended, normoactive bowel sounds, soft to palpation and non-tender Extremity normal to inspection Peripheral Pulses: Yes pulses 2+ throughout Skin no rashes or lesions noted Neuro Sensorium / Orientation: awake Psych Mood & Affect: flat affect Assessment & Plan Assessment/Plan (1) Chronic kidney disease, stage V requiring chronic dialysis: (2) NSTEMI, initial episode of care: PLAN: 1. Acute on chronic kidney disease 3a -Patient had dialysis catheter placed today with Dr. Almaraz -Patient will be started on dialysis per Dr. Gaytan -BUN and creatinine remain elevated 2. Non-STEMI -Possibly secondary to kidney disease -Echocardiogram demonstrates 60% EF -Cardiology following 3. Acute blood loss anemia -Patient received 2 units packed red blood cells, hemoglobin 7.5 -CBC daily 4. Pneumonia, likely pneumococcal -Completed levofloxacin course today 5. Heme positive stools -Colonoscopy positive for diverticulosis -Continue pantoprazole DVT prophylaxis-SCDs This patient was seen by ART Lee under the supervision of Dr. Soto. Documented by User: Dr. Tommy Soto, 09/04/21 15:03 Subjective Subjective Denies complaints. Objective Data Lab / Micro Data Result Diagrams: 09/04/21 05:10 09/04/21 05:10 Physical Exam Const alert and no apparent distress Resp normal respiratory effort, no retractions, no use of accessory muscles and clear to auscultation bilaterally Cardio regular rate, regular rhythm, S1 normal heart sound and S2 normal heart sound GI normal to inspection, nondistended, normoactive bowel sounds, soft to palpation, non-tender, non-distended and hepatosplenomegaly Extremity normal to inspection Assessment & Plan Assessment/Plan (1) Chronic kidney disease, stage V requiring chronic dialysis: PLAN: Patient seen and examined independently. Data and vitals reviewed. I agree with the above note by the nurse practitioner. 1. AGGIE suspected ATN worsening Dialysis catheter placed 2. NSTEMI may be type II event cardiology following but deferring additional work at this time EF 60% on echo 3. Acute blood loss anemia stable s/p 2 units PRBCs monitor heme positive stools 4. Pneumonia, suspected pneumococcal on levofloxacin 1 more dose 5. heme positive stools colonoscopy showed diverticulosis PPI 6. VTE prophylaxis: SCDs. Charges/Coding Visit Charges Inpatient E&M: 04704 Subs Hosp L2
[2021-09-04 13:18] LABS: Complement C3 106 mg/dL (82-167)
[2021-09-04 13:25] LABS: Bedside Glucose 83 mg/dL (70-110)
[2021-09-04] MEDS: Acetaminophen 325 MG Tablet 650 MG PO (15:17)
[2021-09-04 15:51] LABS: Hepatitis B Surface Antibody Non-Reactive; Hepatitis B Surface Antigen Non-Reactive (Nonreactive)
--- NOTE | 2021-09-04 16:18 | DIALYSIS ---
First hemodialysis tx completed without complications. CVC good flows, placement verfied prior to start of tx. Hepatitis labs drawn and sent with dialysis tx. Fluid removed 1,000ml. Verbal report given to NIKKI Wlesh post tx. Second dialysis tx is scheduled for tomorrow 09/05/21
[2021-09-04] MEDS: Sodium Bicarbonate 650 MG Tablet PO ×2 (17:06→21:20)
[2021-09-04] MEDS: Carvedilol 25 MG Tablet PO (17:06)
[2021-09-04] MEDS: Pantoprazole Sodium 40 MG Tablet PO (17:07)
[2021-09-04] MEDS: amLODIPine 10 MG Tablet PO (17:07)
[2021-09-04 17:25] LABS: Bedside Glucose 70 mg/dL (70-110)
[2021-09-04] MEDS: levoFLOXacin IV 250 MG/50 ML BAG 50 MG IV (21:34)
[2021-09-04 22:25] LABS: Bedside Glucose 66 mg/dL (70-110)
[2021-09-04 22:25] LABS: Bedside Glucose 85 mg/dL (70-110)
[2021-09-04 23:55] LABS: Bedside Glucose 94 mg/dL (70-110)
[2021-09-05] VITALS (15 sets, daily range): BP systolic 122–168; BP diastolic 49–66; PULSE 70–78; RESP 16–20; TEMP 36.2–37.4; O2SAT 87–99
[2021-09-05] MEDS: Acetaminophen 325 MG Tablet 650 MG PO ×2 (00:21→09:35)
[2021-09-05] MEDS: 0.9% Saline Lock 10 ML Syringe IV (04:38)
[2021-09-05] MEDS: Ondansetron 4 MG/2 ML Vial IV (04:38)
[2021-09-05] MEDS: Ipratropium/Albuterol Sulfate 3 ML AMPUL.NEB INHALATION ×2 (06:59→20:10)
[2021-09-05 07:05] LABS: Bedside Glucose 76 mg/dL (70-110)
[2021-09-05 09:10] LABS: Absolute Lymphocyte Count 1.31 X10^3/uL (0.83-4.51); Absolute Neutrophil Count 2.9 X10^3/uL (2.0-7.7); Basophil# 0.05 X10^3/uL; Hematocrit 22.5 % (37-47); Hemoglobin 7.3 g/dL (12.0-15.0); Lymphocyte # 1.31 X10^3/ul (0.83-4.51); Lymphocyte % 26.6 % (19-41); Mean Corp Hgb Conc 32.4 g/dL (32-36); Mean Corpuscular Hgb 28.7 pg (27.0-32.0); Mean Corpuscular Volume 88.6 fL (81-99); Mean Platelet Vol. 9.1 fl (6.2-12.0); Monocyte# 0.49 X10^3/uL; NRBC Flagged by Analyzer 0 % (0-5); Neutrophil # 2.93 X10^3/uL (2.7-7.7); Neutrophil % 59.6 % (47-70); Platelet Count 212 K/mm3 (150-450); RBC Distribution Width CV 13.6 % (11.6-14.6); RBC Distribution Width SD 44.3 fl (35.1-43.9); Red Blood Count 2.54 M/mm3 (4.2-5.4); White Blood Count 4.9 K/mm3 (4.4-11.0)
--- NOTE | 2021-09-05 09:10 | PN.CARD_ITS ---
Subjective Subjective The patient has had placement of a dialysis catheter and initiated dialysis yesterday. She is going to receive additional dialysis today. She states so far she believes she is tolerating it. She has been reported as continuing to require O2 support. Objective Data Vital Signs: Vital Signs Temp Pulse Resp BP Pulse Ox 99.3 F H 72 20 H 150/61 H 99 09/05/21 04:20 09/05/21 07:00 09/05/21 07:00 09/05/21 04:20 09/05/21 07:00 Oxygen Flow Rate (L/min) 2 Oxygen Delivery Method Room Air Weight: 190 lb 4.143 oz Body Mass Index (BMI) 30.9 Intake & Output: Intake and Output for Last 24 Hours 09/03/21 09/04/21 09/05/21 23:59 23:59 23:59 Intake Total 490 / 490 276 / 276 Output Total 2059 / 2059 400 / 800 750 / 750 Balance -1570 / -1570 -124 / -524 -750 / -750 Lab / Micro Data Result Diagrams: 09/04/21 05:10 09/04/21 05:10 Labs: Laboratory Results - last 24 hr 09/03/21 05:15: Complement C3 106, Complement C4 37 09/04/21 13:16: POC Glucose 83 09/04/21 14:30: Hep Bs Antigen Non-Reactive 09/04/21 14:30: Hep Bs Antibody Non-Reactive 09/04/21 17:00: POC Glucose 70 09/04/21 21:06: POC Glucose 66 L 09/04/21 21:36: POC Glucose 85 09/04/21 23:51: POC Glucose 94 09/05/21 07:01: POC Glucose 76 Cardiology Labs/Tests Rhythm: Sinus rhythm Radiography Diagnostic Testing: Radiology Impression Chest X-Ray 09/04/21 11:45 IMPRESSION: The tip of the right-sided double-lumen dialysis catheter is at the junction of the superior vena cava and right atrium. Right pleural effusion with right basilar atelectasis and/or infiltrate. Blunting of the left costophrenic angle and left basilar atelectasis. Electronically Signed: Tacho Russell MD at 12:21 EST , Service support , Physical Exam Const alert, oriented x3 and no apparent distress Orientation / Consciousness: awake HEENT normocephalic, head/scalp atraumatic and hearing grossly normal bilaterally Eyes PERRL, EOMs intact bilaterally and conjunctivae normal Neck full ROM, supple and no JVD Chest inspection of chest normal Resp normal respiratory effort and clear to auscultation bilaterally Cardio regular rate, regular rhythm, S1 normal heart sound and S2 normal heart sound GI normal to inspection, nondistended, normoactive bowel sounds Extremity no pedal edema Skin no rashes or lesions noted Neuro oriented x3 and moves all extremities Psych mental status grossly normal Assessment & Plan Assessment/Plan (1) NSTEMI, initial episode of care: PLAN: The patient has abnormal cardiac enzymes which have raise concern of a non-ST segment elevation [place]. At the moment the patient does not appear to have any acute coronary syndrome symptoms nor does she have any acute ECG changes. She does not appear to have any left ventricular wall motion abnormalities. Thus there are concerns that her abnormal cardiac enzymes concerning for non-ST segment elevation [place] may be a type II event brought out by her marked anemia and marked renal insufficiency. Over time consideration can be given as to whether she develops the need for additional noninvasive or invasive cardiovascular testing. However it be reasonable to further evaluate and correct her underlying anemia and renal insufficiency prior to proceeding in such a manner. (2) Cardiac dysrhythmia, unspecified: PLAN: She did have what appeared to be a brief episode of an ectopic atrial rhythm/tachycardia. She appeared to be without obvious symptoms or hemodynamic compromise. At the present time based upon review of her cardiac air sampling and monitoring she has remained in sinus rhythm without obvious recurrence of any dysrhythmia. (3) Anemia: PLAN: The etiology of her anemia appears to be unclear at this time. She has been undergoing additional gastrointestinal evaluation and nephrology evaluation and care. According to the dialysis nurse, her hematocrit will be reassessed at the time of dialysis, depending upon those findings she may receive additional PRBCs with dialysis either today or tomorrow. (4) Acute kidney injury: PLAN: She does have a history of what appears to be chronic renal insufficiency which during this event has markedly worsened. Her creatinine level continues to increase. She has initiated dialysis therapy. (5) Hypertension: PLAN: She has been started on additional antihypertensive therapy with hydralazine. Her blood pressures have improved overall. Hopefully with dialysis they will come under better control. (6) Diabetes: QUALIFIERS: Diabetes mellitus type: type 2 PLAN: She will continue evaluation care per internal medicine. Addt'l Comments This note was generated using a voice recognition system and there may be incorrect words, spelling or punctuation that were not noted when reviewing the office note prior to saving.
[2021-09-05 09:34] LABS: ALB/GLOB Ratio 0.4 RATIO (0.9-2.4); AST(SGOT) 26 U/L (15-37); Alanine Aminotransfer ALT/SGPT 23 U/L (13-56); Albumin, Serum 1.9 g/dL (3.2-5.0); Alkaline Phosphatase 69 U/L (45-117); Anion Gap 6 (5-15); BUN 58 mg/dL (7-18); BUN/Creat Ratio 11.6 RATIO (10-20); Calcium,Total 7.8 mg/dL (8.5-10.1); Chloride 113 mmol/L (98-107); Creatinine, Serum 4.98 mg/dL (0.55-1.02); EST Glomerular Filtration Rate 9 mL/min (>60); Est Glom Filt Rate - Afr Amer 11 mL/min (>60); Estimated Creatinine Clearance 9.86 ml/min; Globulin 4.8 g/dL (2.2-4.2); Glucose 79 mg/dL (74-106); Potassium 4.2 mmol/L (3.5-5.1); Protein, Total 6.7 g/dL (6.4-8.2); Sodium Level 142 mmol/L (136-145)
--- NOTE | 2021-09-05 09:38 | PCM.PN.REN ---
Subjective Subjective No new complaints. Seen on dialysis today. Tolerated dialysis well yesterday. Objective Data Objective Data Vital Signs: Vital Signs Temp Pulse Resp BP Pulse Ox 99.3 F H 72 20 H 150/61 H 99 09/05/21 04:20 09/05/21 07:00 09/05/21 07:00 09/05/21 04:20 09/05/21 07:00 Oxygen Flow Rate (L/min) 2 Oxygen Delivery Method Room Air Weight: 86.3 kg Body Mass Index (BMI) 30.9 Intake & Output: Intake and Output for Last 24 Hours 09/03/21 09/04/21 09/05/21 23:59 23:59 23:59 Intake Total 490 / 490 276 / 276 Output Total 2060 / 2060 400 / 800 750 / 750 Balance -1570 / -1570 -124 / -524 -750 / -750 Lab / Micro Data Result Diagrams: 09/05/21 08:50 09/05/21 08:50 Labs: Laboratory Results - last 24 hr 09/03/21 05:15: Complement C3 106, Complement C4 37 09/04/21 13:16: POC Glucose 83 09/04/21 14:30: Hep Bs Antigen Non-Reactive 09/04/21 14:30: Hep Bs Antibody Non-Reactive 09/04/21 17:00: POC Glucose 70 09/04/21 21:06: POC Glucose 66 L 09/04/21 21:36: POC Glucose 85 09/04/21 23:51: POC Glucose 94 09/05/21 07:01: POC Glucose 76 09/05/21 08:50: WBC 4.9, RBC 2.54 L, Hgb 7.3 L, Hct 22.5 L, MCV 88.6, MCH 28.7, MCHC 32.4 D, RDW Std Deviation 44.3 H, RDW Coeff of Dottie 13.6, Plt Count 212, MPV 9.1, Immature Gran % (Auto) 0.800, Neut % (Auto) 59.6, Lymph % (Auto) 26.6, [place]ady % (Auto) 10.0, Eos % (Auto) 2.0, Baso % (Auto) 1.0, Absolute Neuts (auto) 2.9, Absolute Lymphs (auto) 1.31, Nucleated RBC % 0 09/05/21 08:50: Sodium 142, Potassium 4.2, Chloride 113 H, Carbon Dioxide 23.0, Anion Gap 6, BUN 58 H, Creatinine 4.98 H, Estim Creat Clear Calc 9.86, Est GFR (MDRD) Af Amer 11 L, Est GFR (MDRD) Non-Af 9 L, BUN/Creatinine Ratio 11.6, Glucose 79, Calcium 7.8 L, Total Bilirubin 0.40, AST 26, ALT 23, Alkaline Phosphatase 69, Total Protein 6.7, Albumin 1.9 L, Globulin 4.8 H, Albumin/Globulin Ratio 0.4 L Micro: Microbiology 08/27/21 21:13 Blood Culture (Wb) - Anticubital Left Blood Culture - Final No growth in 5 days. 08/27/21 21:20 Blood Culture (Wb) - Anticubital Right Blood Culture - Final No growth in 5 days. 08/28/21 11:30 Stool Stool Occult Blood (SIMONE) - Final Occult Blood Positive 08/27/21 19:25 Nasal Secretion SARS-CoV-2 Antigen (Rapid) - Final Radiography Diagnostic Testing: Radiology Impression Chest X-Ray 09/04/21 11:45 IMPRESSION: The tip of the right-sided double-lumen dialysis catheter is at the junction of the superior vena cava and right atrium. Right pleural effusion with right basilar atelectasis and/or infiltrate. Blunting of the left costophrenic angle and left basilar atelectasis. Electronically Signed: Tacho Russell MD at 12:21 EST , Service support , Physical Exam Narrative Alert awake oriented x 3 no obvious distress no pallor no icterus no JVD s1s2 no murmurs lungs clear abdomen soft no organomegaly no edema no cyanosis Assessment & Plan Assessment/Plan (1) AGGIE (acute kidney injury): PLAN: AGGIE is most likely secondary to ischemic ATN. Fractional secretion sodium was greater than 1% on 08/28/2021. There was no evidence of obstruction of the urinary tract based on CT scan of the abdomen and pelvis from 08/27/2021. Urine analysis initially showed leukocytes some protein. Treated with antibiotics. Last known baseline creatinine was from February 2020 and it was around 1.3. C3, C4 levels are normal. If no recovery of kidney function within 3 to 4 weeks, will plan for kidney biopsy. Started dialysis yesterday. HD today. If plan is to DC today, can go to dialysis tomorrow at 11:30 AM. (2) Chronic kidney disease, stage 3a: PLAN: The patient likely has underlying chronic kidney disease stage 3. Elevated Creatinine since 2019, and serum creatinine from 03/08/20 was 1.33 mg/dL. (3) Metabolic acidosis: PLAN: Somewhat better. (4) Hypertension: PLAN: Continue to hold lisinopril and furosemide for now because of AGGIE. Blood pressure is acceptable. (5) Community acquired pneumonia: (6) Anemia: PLAN: Hgb 5.7 08/28, received 2units PRBC. Status post endoscopy. (7) Type II diabetes mellitus: QUALIFIERS: Diabetes mellitus complication status: with hyperglycemia Diabetes mellitus alf insulin use: without terminal make up operator use Qualified Code(s): E11.65 - Type 2 diabetes mellitus with hyperglycemia PLAN: Glycemic control as per primary service.
--- NOTE | 2021-09-05 11:30 | CASEMGMT ---
NIKKI LINARES NOTE: Per Nanci @ [facility]/corporate, pt is financially cleared for dialysis. Per Dr Gaytan, if pt able to d/c home today, pt to have 1st OP dialysis tomorrow. TC to Lashae @ [facility]: They have chair-time available T/TH/S for either 0610 or 1200 and option can be given to pt/family on what time works best for them. Pt will need to arrive 30 min early for 1st tx. For the next 2 weeks, d/t Yuridia and New Years, pt will be on a schedule of /Friday schedule. LU @ [facility] is working on transportation for pt to/from dialysis but transportation will be not be available on Friday09/09/21 or 09/16/21. RN CM to room to talk w/pt. Pt currently getting dialysis. RN CM inquired what chair time would be best. Pt asked RN VIJAY to contact her GSKi, as he will be helping w/transportation. TC to Ki ONEAL. He was made aware of HD schedule for /Fri, and states prefers the 1200 chair time. He confirms he can take pt to dialysis for 1st OP HD tomorrow. He was made aware pt to arrive 30 min early (11:30) for 1st tx. Ki also made aware of schedule of /Friday for this week and next week d/t Holidays and transportation will not be able to be arranged for Sunday 09/09 or 09/16. He states between himself, his , or friends, they will work it out for someone to be able to provide transportation those 2 days. Ki aware T//Sat schedule to resume 09/18/21 and [facility] working on setting up transportation for all other HD days. TC back to Lashae @ [facility]. She was notified KIMMY Tapiay would like the 1200 chair time and that he confirms family can provide transportation tomorrow, 09/09 and 09/16. She states their SW to continue to work on getting transportation for all other HD appts. Ki states thinks HHC would be beneficial for pt and asks RN CM to discuss this with pt. RN CM back to room to talk w/pt. She is aware PT/OT will be in to work w/her and evaluate her strength/ability and recommendations will be given. Pt did say she has had HH in the past and would be interested in [facility] again and thinks it was [facility] and would like them again. TC placed to [place] and VM left re: referral. Referral packet faxed to [facility]. Abel CARTERN RN CM
[2021-09-05] MEDS: Sodium Bicarbonate 650 MG Tablet PO ×4 (12:07→22:34)
[2021-09-05] MEDS: Carvedilol 25 MG Tablet PO ×2 (12:07→17:02)
[2021-09-05] MEDS: Pantoprazole Sodium 40 MG Tablet PO (12:12)
[2021-09-05] MEDS: amLODIPine 10 MG Tablet PO (12:13)
[2021-09-05] MEDS: Heparin 10,000 UNITS/10 ML Vial IV (12:17)
--- NOTE | 2021-09-05 12:22 | DIALYSIS ---
HD x 3 hours complete. Tolerated tx well. Ran on 2k bath. UF of 1500ml. Used right chest wall dialysis catheter. Lumens closed with heparin per fill volume. Caps placed. Dressing in intact. See tx sheet for more details. Report was given to NIKKI Babcock.
[2021-09-05 12:25] LABS: Bedside Glucose 79 mg/dL (70-110)
--- NOTE | 2021-09-05 12:29 | PCM.PN.SRG ---
Subjective Subjective Pt had dialysis yesterday with no issues and currently getting dialysis again today. pt c/o HERNÁNDEZ but no issues w the catheter Objective Data Objective Data Vital Signs: Vital Signs Temp Pulse Resp BP Pulse Ox 99.0 F 76 16 168/66 H 99 09/05/21 12:21 09/05/21 12:21 09/05/21 12:21 09/05/21 12:21 09/05/21 07:00 Oxygen Flow Rate (L/min) 2 Oxygen Delivery Method Nasal Cannula Weight: 190 lb 4.143 oz Body Mass Index (BMI) 30.9 Intake & Output: Intake and Output for Last 24 Hours 09/03/21 09/04/21 09/05/21 23:59 23:59 23:59 Intake Total 490 / 490 276 / 276 120 / 120 Output Total 2059 / 2059 400 / 800 900 / 900 Balance -1570 / -1570 -124 / -524 -780 / -780 Lab / Micro Data Result Diagrams: 09/05/21 08:50 09/05/21 08:50 Labs: Laboratory Results - last 24 hr 09/03/21 05:15: Complement C3 106, Complement C4 37 09/04/21 13:16: POC Glucose 83 09/04/21 14:30: Hep Bs Antigen Non-Reactive 09/04/21 14:30: Hep Bs Antibody Non-Reactive 09/04/21 17:00: POC Glucose 70 09/04/21 21:06: POC Glucose 66 L 09/04/21 21:36: POC Glucose 85 09/04/21 23:51: POC Glucose 94 09/05/21 07:01: POC Glucose 76 09/05/21 08:50: WBC 4.9, RBC 2.54 L, Hgb 7.3 L, Hct 22.5 L, MCV 88.6, MCH 28.7, MCHC 32.4 D, RDW Std Deviation 44.3 H, RDW Coeff of Dottie 13.6, Plt Count 212, MPV 9.1, Immature Gran % (Auto) 0.800, Neut % (Auto) 59.6, Lymph % (Auto) 26.6, [place] % (Auto) 10.0, Eos % (Auto) 2.0, Baso % (Auto) 1.0, Absolute Neuts (auto) 2.9, Absolute Lymphs (auto) 1.31, Nucleated RBC % 0 09/05/21 08:50: Sodium 142, Potassium 4.2, Chloride 113 H, Carbon Dioxide 23.0, Anion Gap 6, BUN 58 H, Creatinine 4.98 H, Estim Creat Clear Calc 9.86, Est GFR (MDRD) Af Amer 11 L, Est GFR (MDRD) Non-Af 9 L, BUN/Creatinine Ratio 11.6, Glucose 79, Calcium 7.8 L, Total Bilirubin 0.40, AST 26, ALT 23, Alkaline Phosphatase 69, Total Protein 6.7, Albumin 1.9 L, Globulin 4.8 H, Albumin/Globulin Ratio 0.4 L 09/05/21 12:05: POC Glucose 79 Micro: Microbiology 08/27/21 21:13 Blood Culture (Wb) - Anticubital Left Blood Culture - Final No growth in 5 days. 08/27/21 21:20 Blood Culture (Wb) - Anticubital Right Blood Culture - Final No growth in 5 days. 08/28/21 11:30 Stool Stool Occult Blood (SIMONE) - Final Occult Blood Positive 08/27/21 19:25 Nasal Secretion SARS-CoV-2 Antigen (Rapid) - Final Physical Exam Narrative right chest--dialysis catheter in place--no signs of infection Assessment & Plan Assessment/Plan (1) S/P dialysis catheter insertion: (2) Chronic kidney disease, stage V requiring chronic dialysis: PLAN: Catheter working well- no issues. Call with any questions/concerns. Charges/Coding Visit Charges Inpatient E&M: 74571 Subs Hosp L2
[2021-09-05] MEDS: hydrALAZINE 25 MG Tablet PO ×2 (13:58→22:36)
--- NOTE | 2021-09-05 14:02 | PCM.PN.HOSP ---
Documented by User: ART Lee 09/05/21 14:16 Subjective Subjective Patient seen and examined. Patient currently undergoing dialysis. Patient lying in bed no distress noted. Objective Data Objective Data Vital Signs: Vital Signs Temp Pulse Resp BP Pulse Ox 99.0 F 76 16 168/66 H 99 09/05/21 12:21 09/05/21 13:58 09/05/21 12:21 09/05/21 13:58 09/05/21 10:20 Oxygen Flow Rate (L/min) 2 Oxygen Delivery Method Nasal Cannula Weight: 190 lb 4.143 oz Body Mass Index (BMI) 30.9 Intake & Output: Intake and Output for Last 24 Hours 09/03/21 09/04/21 09/05/21 23:59 23:59 23:59 Intake Total 490 / 490 276 / 276 120 / 120 Output Total 2059 / 2059 400 / 800 900 / 900 Balance -1570 / -1570 -124 / -524 -780 / -780 Lab / Micro Data Result Diagrams: 09/05/21 08:50 09/05/21 08:50 Labs: Laboratory Results - last 24 hr 09/04/21 14:30: Hep Bs Antigen Non-Reactive 09/04/21 14:30: Hep Bs Antibody Non-Reactive 09/04/21 17:00: POC Glucose 70 09/04/21 21:06: POC Glucose 66 L 09/04/21 21:36: POC Glucose 85 09/04/21 23:51: POC Glucose 94 09/05/21 07:01: POC Glucose 76 09/05/21 08:50: WBC 4.9, RBC 2.54 L, Hgb 7.3 L, Hct 22.5 L, MCV 88.6, MCH 28.7, MCHC 32.4 D, RDW Std Deviation 44.3 H, RDW Coeff of Dottie 13.6, Plt Count 212, MPV 9.1, Immature Gran % (Auto) 0.800, Neut % (Auto) 59.6, Lymph % (Auto) 26.6, Dickson % (Auto) 10.0, Eos % (Auto) 2.0, Baso % (Auto) 1.0, Absolute Neuts (auto) 2.9, Absolute Lymphs (auto) 1.31, Nucleated RBC % 0 09/05/21 08:50: Sodium 142, Potassium 4.2, Chloride 113 H, Carbon Dioxide 23.0, Anion Gap 6, BUN 58 H, Creatinine 4.98 H, Estim Creat Clear Calc 9.86, Est GFR (MDRD) Af Amer 11 L, Est GFR (MDRD) Non-Af 9 L, BUN/Creatinine Ratio 11.6, Glucose 79, Calcium 7.8 L, Total Bilirubin 0.40, AST 26, ALT 23, Alkaline Phosphatase 69, Total Protein 6.7, Albumin 1.9 L, Globulin 4.8 H, Albumin/Globulin Ratio 0.4 L 09/05/21 12:05: POC Glucose 79 Micro: Microbiology 08/27/21 21:13 Blood Culture (Wb) - Anticubital Left Blood Culture - Final No growth in 5 days. 08/27/21 21:20 Blood Culture (Wb) - Anticubital Right Blood Culture - Final No growth in 5 days. 08/28/21 11:30 Stool Stool Occult Blood (SIMONE) - Final Occult Blood Positive 08/27/21 19:25 Nasal Secretion SARS-CoV-2 Antigen (Rapid) - Final Physical Exam Const alert, oriented x3 and no apparent distress General Appearance: cooperative Exam Limitations: no limitations HEENT normocephalic, head/scalp atraumatic, moist oral mucous membranes and oropharynx normal Eyes conjunctivae normal and no scleral icterus Neck no lymphadenopathy and supple Lymph Lymphatic: no lymphadenopathy noted Resp normal respiratory effort, normal air movement and clear to auscultation bilaterally Resp Narrative: tachypneic Auscultation: wheezes Cardio regular rate, regular rhythm, S1 normal heart sound and S2 normal heart sound Cardio Narrative: Heart Sounds: murmur GI normal to inspection, nondistended, normoactive bowel sounds, soft to palpation and non-tender Palpation: Negative for rigid Extremity normal to inspection Skin no rashes or lesions noted Neuro oriented x3 and moves all extremities Sensorium / Orientation: awake and alert Psych affect normal Mood & Affect: flat affect Assessment & Plan Assessment/Plan (1) S/P dialysis catheter insertion: (2) Chronic kidney disease, stage V requiring chronic dialysis: PLAN: 1. Acute on chronic kidney disease 3a -Patient had dialysis catheter placed 09/03/[address] Almaraz -Patient received dialysis yesterday and today. -BUN and creatinine remain elevated however much improved following the administration of dialysis. 2. Non-STEMI -Possibly secondary to kidney disease -Echocardiogram demonstrates 60% EF -Cardiology following 3. Acute blood loss anemia -Patient received 2 units packed red blood cells during admission, hemoglobin 7.3 -CBC daily 4. Pneumonia, likely pneumococcal -Completed levofloxacin course today 5. Heme positive stools -Colonoscopy positive for diverticulosis -Continue pantoprazole Discharge planning. Social work and case management working on coordination of outpatient dialysis however due to PT and OT recommendations patient will need care at a detention facility, pending pre-CERT DVT prophylaxis-SCDs This patient was seen by Elvira Beal NP-C under the supervision of Dr. Soto. Documented by User: Dr. Tommy Soto, 09/05/21 14:28 Subjective Subjective Feels well. Tolerating dialysis. Objective Data Lab / Micro Data Result Diagrams: 09/05/21 08:50 09/05/21 08:50 Physical Exam Const alert and no apparent distress Resp normal respiratory effort, no retractions, no use of accessory muscles and clear to auscultation bilaterally Cardio regular rate, regular rhythm, S1 normal heart sound and S2 normal heart sound GI normal to inspection, nondistended, normoactive bowel sounds, soft to palpation, non-tender and non-distended Extremity normal to inspection Assessment & Plan Assessment/Plan (1) Chronic kidney disease, stage V requiring chronic dialysis: PLAN: Patient seen and examined independently. Data and vitals reviewed. I agree with the above note by the nurse practitioner. 1. AGGIE suspected ATN worsening Dialysis catheter placed dialysis initiated 2. NSTEMI may be type II event cardiology following but deferring additional work at this time EF 60% on echo 3. Acute blood loss anemia stable s/p 2 units PRBCs monitor heme positive stools 4. Pneumonia, suspected pneumococcal on levofloxacin completed 5. heme positive stools colonoscopy showed diverticulosis PPI 6. VTE prophylaxis: SCDs. 7. Debility. 2 person assist. Needs SNF. Medically stable for discharge. Charges/Coding Visit Charges Inpatient E&M: 55485 Subs Hosp L2
--- NOTE | 2021-09-05 14:33 | CT_ITS ---
STUDY: CT BRAIN WITHOUT CONTRAST REASON FOR EXAM: Female, 66 years old. Left sided weakness RADIATION DOSAGE (If Supplied By Facility): CTDIvol = ( 44.99 ) mGy, DLP = ( 745.49 ) mGycm TECHNIQUE: Transaxial CT imaging of the brain was performed without administration of intravenous contrast material. Individualized dose optimization techniques were used for this CT. COMPARISON: Comparison is made with prior study dated 11/07/2019. FINDINGS: Normal soft tissue structures. Normal calvarium. There is mild cerebral atrophy with widening of the extra-axial spaces and ventricular dilatation. There are areas of decreased attenuation within the white matter tracts of the supratentorial brain, consistent with microvascular disease changes. 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 Normal basal ganglia and thalami. Normal brainstem. There is mild cerebellar atrophy. There is no intracranial hemorrhage. There are no findings of an acute ischemic infarction. Normal visualized paranasal sinuses. CT/Brain/Head without Contrast IMPRESSION: Chronic involutional changes of the brain. Electronically Signed: Tacho Russell MD at 15:06 EST , Service support ,
--- NOTE | 2021-09-05 14:53 | CASEMGMT ---
SW was informed by therapy that patient did not do well. She required an assist of 2 people. SW attempted to talk with patient, but she was being wheeled to radiology for a CT scan. LU called patient's grandson Ki who has been helping her with decisions. LU let him know patient did not do well with therapy and it is being recommended she go to a [facility] for [facility]. LU explained this would be short term. Ki said patient is not going to want to go to a longterm. LU told him SW will talk with her. SW let him know SW just wanted to update him that she is not being discharged today nor will she need transport to dialysis tomorrow. Bekah Hercules CAPACITOR INSPECTOR DANITA
--- NOTE | 2021-09-05 17:10 | CASEMGMT ---
SW spoke with patient. Introduced self and role at [facility]. SW explained that it is being recommended that she go to a short term rehab facility for therapy. Patient said she is not going to a fpc. SW told her she is too weak to go home, she does not have enough help. SW left the list of SNF's in patient's room and told her SW will stop by again tomorrow. Bekah Hercules GREEN END WORKER DANITA
[2021-09-05 17:16] LABS: Bedside Glucose 101 mg/dL (70-110)
[2021-09-06] VITALS (11 sets, daily range): BP systolic 114–160; BP diastolic 53–61; PULSE 72–78; RESP 16–18; TEMP 36.6–36.9; O2SAT 89–97
[2021-09-06 01:11] LABS: Bedside Glucose 94 mg/dL (70-110)
[2021-09-06] MEDS: Acetaminophen 325 MG Tablet 650 MG PO ×2 (06:12→12:18)
[2021-09-06] MEDS: hydrALAZINE 25 MG Tablet PO (06:12)
[2021-09-06 06:55] LABS: Bedside Glucose 89 mg/dL (70-110)
[2021-09-06] MEDS: Ipratropium/Albuterol Sulfate 3 ML AMPUL.NEB INHALATION (07:15)
[2021-09-06] MEDS: amLODIPine 10 MG Tablet PO (08:42)
[2021-09-06] MEDS: Sodium Bicarbonate 650 MG Tablet PO (08:42)
[2021-09-06] MEDS: Pantoprazole Sodium 40 MG Tablet PO (08:42)
[2021-09-06] MEDS: Carvedilol 25 MG Tablet PO ×2 (08:42→17:24)
--- NOTE | 2021-09-06 09:15 | TREXTCAR_ITS ---
Diet 09/04/21 11:34 Diet: Cardiac: Calorie-Controlled Is pt able to select menu?: No How many daily calories?: 1800 calorie Wound(s) right chest: Wound Type: Surgical Incision Therapies Weight Bearing: Full weight bearing Physical Therapy: Eval and Treat Occupational Therapy: Eval and Treat Problem/Diagnosis (1) Chronic kidney disease, stage V requiring chronic dialysis: Status: Acute Comment: Dialysis Friday, , Saturdays Allergies/Procedures Done in Hospital Allergies ceftriaxone Allergy (Severe, Verified 08/27/21 17:25) Rash vancomycin Allergy (Severe, Verified 08/27/21 17:25) Rash Penicillins Allergy (Verified 08/27/21 17:25) Swelling oxycodone HCl [From Percocet] Adverse Reaction (Verified 08/27/21 17:25) Itching Procedures: Dialysis and - (right IJ tunnelled dialysis catheter.) Type of Care/Length of Stay Estimated LOS: Convalescent Care Less Than 30 days Type of Care Needed: Skilled Rehab Potential: Good Prognosis: Good Additional Orders/Day of Discharge Day of Discharge: 09/06/21 Dietary and Speech Recommendations Dietitian Recommendations/Changes: continue 1800 calorie controlled, consistent CHO, cardiac diet; will monitor need for further renal restrictions; ONS if PO intake fails. Daily wts. Discharge Plan Admission Admit Date/Time: 08/27/21 21:41 Primary Reason for Your Visit: AGGIE Attending Provider: Tommy Soto Primary Care Provider: Prince Cummins Consulting Providers: Jelani Allison ; Isaiah Brown ; Emily Almaraz Discharge Orders/Prescriptions Prescriptions: New hydralazine 25 mg Tablet 25 mg PO TID Qty: 0 RF: 0 sodium bicarbonate 650 mg Tablet 650 mg PO 4X/DAY Qty: 1 RF: 0 pantoprazole 40 mg Tablet,Delayed Release (Dr/Ec) 40 mg PO DAILY Qty: 1 RF: 0 Continued amlodipine 5 mg tablet See Rx Instructions .ROUTE .COMPLEX Qty: 90 RF: 3 carvedilol [Coreg] 12.5 mg tablet 12.5 mg PO BID RF: 0 ipratropium-albuterol 0.5 mg-3 mg(2.5 mg base)/3 mL solution for nebulization 3 ml inhalation Q6HWA.RT PRN (Reason: shortness of breath or wheezing) Qty: 90 RF: 1 Eucerin Original Lotion 1 applic TOPICAL DAILY PRN (Reason: dry skin) Qty: 500 RF: 3 Discontinued lisinopril 20 mg tablet 20 mg PO DAILY Qty: 90 RF: 1 hydrochlorothiazide 12.5 mg tablet 12.5 mg PO DAILY Qty: 90 RF: 1 Referrals / Follow Up: Prince Cummins DO [Primary Care Provider] - Within 2 Weeks Isiaah Brown MD [STAFF PHYSICIAN] - Within 1 Month Disposition Disposition (needs filled in before D/C Order can be placed): Care Home Facility
--- NOTE | 2021-09-06 09:19 | CASEMGMT ---
Per physician patient is agreeing to go to a longterm facility. SW met with patient and she confirmed she will go somewhere for rehab. SW had given pt Patient a list of SNF providers including quality and resource use data and consistent with the patient?s preferred geographic region, medical needs, and insurance network yesterday. Patient told SW she cannot read or write. SW asked if she wants to stay in [place] and she does. SW went over the facilities in [place]. Patient was in agreement with [facility], [facility], and [facility]. SW told patient SW will work on this and get back with her. SW faxed referrals to Shabana for [facility] and [facility]. SW also faxed referral to [facility]. SW left a message for Shabana. LU also called [facility] and spoke with Monique. Bekah SAMAYOA
--- NOTE | 2021-09-06 09:23 | DS.PCM_ITS ---
Providers Date of Admission: 08/27/21 Primary Care Physician: Dr. Prince Cummins, DO Consultations 08/28/21 07:50 Consult: Nephrology Routine Consulting Provider: Jelani Allison Reason for Consult: AGGIE EMERGENT Consult: No Notified: Yes Date Notified: 08/28/21 Time Notified: 07:50 Method of Notification: Answering Service Method of Consult:: In-Person 08/28/21 10:25 Consult: Cardiology Routine Consulting Provider: Isaiah Brown Reason for Consult: nonstemi EMERGENT Consult: No Notified: Yes Date Notified: 08/28/21 Time Notified: 10:25 Method of Notification: Text 08/28/21 10:26 Consult: Gastroenterology Routine Consulting Provider: Elana [facility] Reason for Consult: acute anemia EMERGENT Consult: No Notified: Yes Date Notified: 08/28/21 Time Notified: 10:26 Method of Notification: Text 09/04/21 09:21 Consult: General Surgery Routine Consulting Provider: Emily Almaraz Reason for Consult: dialysis catheter placement EMERGENT Consult: No MD Notified: Yes Date Notified: 09/04/21 Time Notified: 09:21 Method of Notification: Text Reason For Visit: community aquired pneumonia, acute renal failure Diagnosis Discharge Diagnosis (1) Chronic kidney disease, stage V requiring chronic dialysis: Status: Acute Code(s): N18.6 - End stage renal disease; Z99.2 - Dependence on renal dialysis (2) NSTEMI, initial episode of care: Status: Acute Code(s): I21.4 - Non-ST elevation (NSTEMI) myocardial infarction (3) AGGIE (acute kidney injury): Status: Acute Code(s): N17.9 - Acute kidney failure, unspecified (4) Acute blood loss anemia: Status: Acute Code(s): D62 - Acute posthemorrhagic anemia (5) Pneumonia, pneumococcal: Status: Acute Code(s): J13 - Pneumonia due to Streptococcus pneumoniae Medications at Discharge Home Medications amlodipine 5 mg tablet See Rx Instructions .ROUTE .COMPLEX #90 tab 11/22/20 ipratropium 0.5 mg-albuterol 3 mg (2.5 mg base)/3 mL nebulization soln 3 ml INHALATION Q6HWA.RT PRN #90 ml 11/23/20 carvedilol 12.5 mg tablet 12.5 mg PO BID 11/28/20 lanolin-mineral oil lotion 1 applic TOPICAL DAILY PRN #500 ml 05/25/21 hydralazine 25 mg PO TID #0 tab 09/06/21 pantoprazole 40 mg PO DAILY #1 tab 09/06/21 sodium bicarbonate 650 mg PO 4X/DAY #1 tab 09/06/21 Hospital Course Summary of Care Provided Minutes Spent on Discharge: 35 Hospital Course: 1. AGGIE suspected ATN worsening Dialysis catheter placed dialysis initiated continue HD TuThSa 2. NSTEMI may be type II event cardiology following but deferring additional work at this time EF 60% on echo no ASA given ABLA 3. Acute blood loss anemia stable s/p 2 units PRBCs monitor heme positive stools, likely 2/2 diverticulosis 4. Pneumonia, suspected pneumococcal on levofloxacin completed 5. heme positive stools colonoscopy showed diverticulosis PPI Follow up with GI 6. Debility 2 person assist needs SNF, pt initially reluctant, but now agreeable. Physical Exam Const alert and no apparent distress Cardio regular rate, regular rhythm, S1 normal heart sound and S2 normal heart sound GI normal to inspection, nondistended, normoactive bowel sounds, soft to palpation, non-tender and non-distended Extremity normal to inspection Neuro oriented x3 Sensorium / Orientation: awake, alert and oriented to person Weight / BMI Weight Weight: 85.3 kg Body Mass Index (BMI) 30.9 ABG / Lab / Microbiology Data Result Diagrams: 09/05/21 08:50 09/05/21 08:50 Laboratory: Laboratory Results - last 24 hr 09/05/21 08:50: Sodium 142, Potassium 4.2, Chloride 113 H, Carbon Dioxide 23.0, Anion Gap 6, BUN 58 H, Creatinine 4.98 H, Estim Creat Clear Calc 9.86, Est GFR (MDRD) Af Amer 11 L, Est GFR (MDRD) Non-Af 9 L, BUN/Creatinine Ratio 11.6, Glucose 79, Calcium 7.8 L, Total Bilirubin 0.40, AST 26, ALT 23, Alkaline Phosphatase 69, Total Protein 6.7, Albumin 1.9 L, Globulin 4.8 H, Albumin/Globulin Ratio 0.4 L 09/05/21 12:05: POC Glucose 79 09/05/21 16:57: POC Glucose 101 09/05/21 22:23: POC Glucose 94 09/06/21 06:47: POC Glucose 89 Microbiology: Microbiology 08/27/21 21:13 Blood Culture (Wb) - Anticubital Left Blood Culture - Final No growth in 5 days. 08/27/21 21:20 Blood Culture (Wb) - Anticubital Right Blood Culture - Final No growth in 5 days. 08/28/21 11:30 Stool Stool Occult Blood (SIMONE) - Final Occult Blood Positive 08/27/21 19:25 Nasal Secretion SARS-CoV-2 Antigen (Rapid) - Final Radiography Diagnostic Testing: Radiology Impression Brain CT 09/05/21 14:33 IMPRESSION: Chronic involutional changes of the brain. Electronically Signed: Tacho Russell MD at 15:06 EST , Service support , Meaningful Use Info Meaningful Use Diagnoses (Choose all that apply): AMI AMI/Post PCI/Angioplasty Aspirin given w/in 24hrs of arrival?: No Reason no aspirin w/in 24hrs of arrival?: anemia ASA at discharge?: No Reason ASA not ordered:: Allergy (bleeding) Statins at discharge?: Yes Rufino/ARB at discharge?: No Reason Rufino/ARB not ordered:: Worsening renal dysfunctn Beta Filomena at discharge?: Yes Done w/ Acute OH measure.: Yes Discharge Plan Admission Admit Date/Time: 08/27/21 21:41 Primary Reason for Your Visit: AGGIE Attending Provider: Tommy Soto Primary Care Provider: Prince Cummins Consulting Providers: Jelani Allison ; Isaiah Brown ; Emily Almaraz Discharge Orders/Prescriptions Prescriptions: New hydralazine 25 mg Tablet 25 mg PO TID Qty: 0 RF: 0 sodium bicarbonate 650 mg Tablet 650 mg PO 4X/DAY Qty: 1 RF: 0 pantoprazole 40 mg Tablet,Delayed Release (Dr/Ec) 40 mg PO DAILY Qty: 1 RF: 0 Continued amlodipine 5 mg tablet See Rx Instructions .ROUTE .COMPLEX Qty: 90 RF: 3 carvedilol [Coreg] 12.5 mg tablet 12.5 mg PO BID RF: 0 ipratropium-albuterol 0.5 mg-3 mg(2.5 mg base)/3 mL solution for nebulization 3 ml inhalation Q6HWA.RT PRN (Reason: shortness of breath or wheezing) Qty: 90 RF: 1 Eucerin Original Lotion 1 applic TOPICAL DAILY PRN (Reason: dry skin) Qty: 500 RF: 3 Discontinued lisinopril 20 mg tablet 20 mg PO DAILY Qty: 90 RF: 1 hydrochlorothiazide 12.5 mg tablet 12.5 mg PO DAILY Qty: 90 RF: 1 Referrals / Follow Up: Prince Cummins DO [Primary Care Provider] - Within 2 Weeks Isaiah Brown MD [STAFF PHYSICIAN] - Within 1 Month Disposition Disposition (needs filled in before D/C Order can be placed): Intermediate Facility Charges/Coding Visit Charges Inpatient E&M: 29798 Disch Hosp
--- NOTE | 2021-09-06 11:07 | CASEMGMT ---
LU received a call from Lacey with [facility] and she is reviewing referral. She will also make sure they can get transport set up. She will get back with LU. Bekah SAMAYOA
[2021-09-06 12:16] LABS: Bedside Glucose 115 mg/dL (70-110)
--- NOTE | 2021-09-06 12:17 | CASEMGMT ---
Addendum entered by Jan Bae 09/06/21 15:06: TC to [facility] this AM. No answer. TC to Natalia @ [facility]. She was made aware this RN CM has not been able to reach anyone @ [facility] yesterday or today and that referral was sent to them yesterday for this pt but referral is now being cancelled. She states she will reach out to [facility] to inform them referral is cancelled. Addendum entered by Jan Bae 09/06/21 13:32: TC placed back to [facility] and spoke w/Dustin. He was given updated info that pt is now going to [facility] and Ki, will transport pt this coming Friday for 1st OP HD treatment and next Friday to HD. [facility] to arrange for transportation all other days. Original Note: NIKKI LINARES NOTE: Pt to get HD @ [facility] today and then discharge to [facility]. TC placed to [facility]. Both Dustin and Lashae out of bldg at this time. Message given to nurse Faye. She was made aware pt going to SNF today after HD @ [facility] and pt to receive 1st OP HD @ [facility] on Friday. Faye also made aware that [place] to arrange for transportation. Faye states she will pass the message along to either Dustin or [facility]. Abel MCCORMICK RN, CM
--- NOTE | 2021-09-06 12:56 | PN.CARD_ITS ---
Subjective Subjective The patient appears to be resting comfortably. There are no acute complaints of ongoing chest discomfort or worsening shortness of breath/dyspnea. Objective Data Vital Signs: Vital Signs Temp Pulse Resp BP Pulse Ox 98.4 F 74 16 125/53 H 94 09/06/21 08:36 09/06/21 08:36 09/06/21 08:36 09/06/21 08:36 09/06/21 08:36 Oxygen Flow Rate (L/min) 2 Oxygen Delivery Method Nasal Cannula Weight: 188 lb 0.869 oz Body Mass Index (BMI) 30.9 Intake & Output: Intake and Output for Last 24 Hours 09/04/21 09/05/21 09/06/21 23:59 23:59 23:59 Intake Total 276 / 276 360 / 360 Output Total 400 / 800 1150 / 1270 195 / 195 Balance -124 / -524 -790 / -910 -195 / -195 Lab / Micro Data Result Diagrams: 09/05/21 08:50 09/05/21 08:50 Labs: Laboratory Results - last 24 hr 09/05/21 16:57: POC Glucose 101 09/05/21 22:23: POC Glucose 94 09/06/21 06:47: POC Glucose 89 09/06/21 11:48: POC Glucose 115 H Cardiology Labs/Tests Rhythm: Sinus rhythm Radiography Diagnostic Testing: Radiology Impression Brain CT 09/05/21 14:33 IMPRESSION: Chronic involutional changes of the brain. Electronically Signed: Tacho Russell MD at 15:06 EST , Service support , Physical Exam Const alert, oriented x3 and no apparent distress Orientation / Consciousness: awake HEENT normocephalic, head/scalp atraumatic and hearing grossly normal bilaterally Eyes PERRL, EOMs intact bilaterally and conjunctivae normal Neck full ROM, supple and no JVD Chest inspection of chest normal Resp normal respiratory effort and clear to auscultation bilaterally Cardio regular rate, regular rhythm, S1 normal heart sound and S2 normal heart sound GI normal to inspection, nondistended, normoactive bowel sounds Extremity no pedal edema Skin no rashes or lesions noted Neuro oriented x3 and moves all extremities Psych mental status grossly normal Assessment & Plan Assessment/Plan (1) NSTEMI, initial episode of care: PLAN: The patient has abnormal cardiac enzymes which have raise concern of a non-ST segment elevation FL. At the moment the patient does not appear to have any acute coronary syndrome symptoms nor does she have any acute ECG changes. She does not appear to have any left ventricular wall motion abnormalities. Thus there are concerns that her abnormal cardiac enzymes concerning for non-ST segment elevation FL may be a type II event brought out by her marked anemia and marked renal insufficiency. Over time consideration can be given as to whether she develops the need for additional noninvasive or invasive cardiovascular testing. However it be reasonable to further evaluate and correct her underlying anemia and renal insufficiency prior to proceeding in such a manner. If her renal insufficiency is not temporary and becomes permanent with respect to hemodialysis then she could be considered for future diagnostic cardiac catheterization. However, this still leaves the issue of her ongoing anemia which ideally needs to be improved prior to undergoing such a procedure and it would need to be known that she could safely tolerate antiplatelet/anticoagulant therapy if needed during or following such invasive cardiovascular procedures, interventions, etc. (2) Cardiac dysrhythmia, unspecified: PLAN: She did have what appeared to be a brief episode of an ectopic atrial rhythm/tachycardia. She appeared to be without obvious symptoms or hemo dynamic compromise. At the present time based upon review of her cardiac clinical research monitor she has remained in sinus rhythm without obvious recurrence of any dysrhythmia. (3) Anemia: PLAN: The etiology of her anemia appears to be unclear at this time. She has been undergoing additional gastrointestinal evaluation and nephrology evaluation and care. Her hemoglobin level remains low at 7.3. Again it would be reasonable to consider her for PRBC transfusion during a dialysis episode which may assist in her oxygen carrying capacity. At the same time there is still a question as to the etiology of her hemoglobin level remaining low and does she require additional noncardiac evaluation and/or care. As noted above it would be prudent to try and correct her underlying anemia before going through any invasive cardiovascular procedures. It would also be reasonable to know whether or not the patient could be safely placed on long- term antiplatelet or anticoagulant therapy from a cardiac standpoint if needed with respect to her underlying anemia. (4) Acute kidney injury: PLAN: She does have a history of what appears to be chronic renal insufficiency which during this event has markedly worsened. She has initiated dialysis. She appears to be tolerating it thus far. (5) Hypertension: PLAN: She has been started on additional antihypertensive therapy with h ydralazine. Her blood pressures have improved overall. Hopefully with dialysis they will come under better control. (6) Diabetes: QUALIFIERS: Diabetes mellitus type: type 2 PLAN: She will continue evaluation care per internal medicine. Addt'l Comments Overall, at the present time, from a cardiovascular standpoint, the tentative plan is for continued conservative medical management with medications that she can tolerate based upon heart rate, blood pressure, her anemia, her renal insufficiency, etc. There are no immediate plans for additional invasive evaluation or care at this time until it is determined whether or not she could safely take antiplatelet or anticoagulant agents with respect to her underlying anemia and whether or not her renal insufficiency is temporary versus permanent because of the concerns of IV contrast related nephropathy. The patient denies symptoms considered classic for angina pectoris, CHF / pulmon priscilla edema (with respect to orthopnea / PND), ongoing palpitations, or near syncope / syncope.
--- NOTE | 2021-09-06 16:02 | CASEMGMT ---
Both [place] and [facility] can accept patient. However, if patient goes to [facility] she will have to pay for transport on the weekends. LU notified patient's grandson that [facility] and [place] accepted patient. He said he does not want patient to go to [place]. He would prefer [facility]. Ki spoke with his significant other while on the phone and they will transport patient on the next 2 Sundays and Saturdays if patient is still at the facility. LU told him her time is noon, but she needs to be there at 1130a. LU notified Shabana with [facility] and also Lacey at [facility]. LU completed and faxed all necessary information to [facility] to obtain a level of care. Received level of care from [facility]. LU faxed orders and level of care to [facility]. LU arranged for patient to get picked up at 530p via cot. LU completed a convalescent on HENS. LU notified Lacey with [facility], RN, area secretary, and patient's grandson Ki. NIKKI Montoya notified Usha. Plan: d/s to [facility] under intermediate level of care on a convalescent stay. Physicians transported via cot. Bekah Hercules [employer] DANITA
[2021-09-06 16:26] LABS: Bedside Glucose 90 mg/dL (70-110)
--- NOTE | 2021-09-06 17:05 | CASEMGMT ---
LU spoke with Shannon Castrejon from [facility] and let her know patient is going to [facility] today for rehab. LU also told her about patient needing to call [facility] transportation when she is getting ready to leave [facility] to set up her transport to dialysis from home. Shannon said she will follow up with [facility] to remind them of this. Bekah Hercules MSW DANITA
--- NOTE | 2021-09-06 17:41 | NURSING ---
Report called to [facility]
--- NOTE | 2021-09-12 11:41 | OP.EGD_ITS ---
Patient Name: Aydee Chaidez Procedure Date: 08/30/2021 10:28 AM Date of : 1955 Age: 66 Procedure: Upper GI endoscopy Indications: Epigastric abdominal pain, Iron deficiency anemia Providers: Bebeto Trimble DO Medicines: See the Anesthesia note for documentation of the administered medications Patient Profile: This is a 66 year old female. Refer to note in patient chart for documentation of history and physical. Patient has symptoms of acute heartburn and acute nausea. She is status post colonoscopy for treatment of bleeding three years ago. Complications: No immediate complications. Procedure: Pre-Anesthesia Assessment: - Prior to the procedure, a History and Physical was performed, and patient medications and allergies were reviewed. The patient is competent. The risks and benefits of the procedure and the sedation options and risks were discussed with the patient. All questions were answered and informed consent was obtained. Patient identification and proposed procedure were verified in the pre-procedure area. Mental Status Examination: alert and oriented. Airway Examination: normal oropharyngeal airway and neck mobility. Respiratory Examination: clear to auscultation. CV Examination: normal. Prophylactic Antibiotics: The patient does not require prophylactic antibiotics. Prior Anticoagulants: The patient has taken no previous anticoagulant or antiplatelet agents. After reviewing the risks and benefits, the patient was deemed in satisfactory condition to undergo the procedure. The anesthesia plan was to use moderate sedation / analgesia (conscious sedation). Immediately prior to administration of medications, the patient was re-assessed for adequacy to receive sedatives. The heart rate, respiratory rate, oxygen saturations, blood pressure, adequacy of pulmonary ventilation, and response to care were monitored throughout the procedure. The physical status of the patient was re-assessed after the procedure. After obtaining informed consent, the endoscope was passed under direct vision. Throughout the procedure, the patient's blood pressure, pulse, and oxygen saturations were monitored continuously. The gastroscope was introduced through the mouth, and advanced to the second part of duodenum. The upper GI endoscopy was accomplished without difficulty. The patient tolerated the procedure well. Moderate Sedation: Moderate (conscious) sedation was administered by the endoscopy nurse and supervised by the endoscopist. The patient's oxygen saturation, heart rate, blood pressure and response to care were monitored. Total physician intraservice time was 15 minutes. Scope In: 10:41:17 AM Scope Out: 10:46:00 AM Total Procedure Duration Time 0 hours 4 minutes 43 seconds Findings: LA Grade A (one or more mucosal breaks less than 5 mm, not extending between tops of 2 mucosal folds) esophagitis with no bleeding was found 34 to 35 cm from the incisors. Biopsies were taken with a cold forceps for histology. The entire examined stomach was normal. The second portion of the duodenum was normal. Biopsies were taken with a cold forceps for histology. Impression: - LA Grade A reflux esophagitis. Rule out Yancey's esophagus. Biopsied. - Normal stomach. - Normal second portion of the duodenum. Biopsied. Recommendation: - Continue present medications. Procedure Code(s): --- Professional --- 10274, Esophagogastroduodenoscopy, flexible, transoral; with biopsy, single or multiple 64374, 59, Moderate sedation services provided by the same physician or other qualified health assistant child care teacher performing the diagnostic or therapeutic service that the sedation supports, requiring the presence of an independent trained observer to assist in the monitoring of the patient's level of consciousness and physiological status; initial 15 minutes of intraservice time, patient age 5 years or older CPT copyright 2017 [employer]. All rights reserved. The codes documented in this report are preliminary and upon grocery store associate review may be revised to meet current compliance requirements. Bebeto Trimble DO 09/12/2021 11:41:13 AM This report has been signed electronically. Number of Addenda: 1 Note Initiated On: 08/30/2021 10:28 AM Addendum Number: 1 Addendum Date: 05/22/2022 7:19:12 AM MAC was used instead of moderate sedation for the patient. Bebeto Trimble DO 05/22/2022 7:19:19 AM This report has been signed electronically.
--- NOTE | 2021-09-12 11:42 | OP.CCLET_ITS ---
05/22/2022 Prince Cummins Re : Upper GI endoscopy procedure for Aydee Chaidez Dear Dr. Cummins This procedure was performed on August. My impressions and recommendations are as follows: Impressions : - LA Grade A reflux esophagitis. Rule out Yancey's esophagus. Biopsied. - Normal stomach. - Normal second portion of the duodenum. Biopsied. Recommendations : - Continue present medications. My findings are described in the full procedure note, which is enclosed. If I can be of further assistance, please feel free to contact me at . Sincerely, Bebeto Trimble, 09/12/2021 11:41:13 AM This report has been signed electronically.
== END 2021-09-06 18:28 | DRG 139 ==
LOC: ED 20:30 → PCU 21:28
PROVIDERS: Internal Medicine Gastroenterology; Internal Medicine Nephrology; Nurse Practitioner Adult Health; Nurse Practitioner Family; Student in an Organized Health Care Education/Training Program; Surgery; Admitting Provider Family Medicine; Emergency Provider Emergency Medicine; PCP Family Medicine
PROC: 0DJD8ZZ Inspection of Lower Intestinal Tract, Via Natural or Artificial Opening Endoscopic (ICD-10-PCS; CPT 45378; principal; 2021-08-30 09:35)
PROC: 0JH63XZ Insertion of Tunneled Vascular Access Device into Chest Subcutaneous Tissue and Fascia, Percutaneous Approach (ICD-10-PCS; principal; 2021-09-04 12:30)
DX: J13 Pneumonia due to Streptococcus pneumoniae (principal); N17.0 Acute kidney failure with tubular necrosis; I21.A1 Myocardial infarction type 2; K57.31 Diverticulosis of large intestine without perforation or abscess with bleeding; D62 Acute posthemorrhagic anemia; I12.0 Hypertensive chronic kidney disease with stage 5 chronic kidney disease or end stage renal disease; N18.5 Chronic kidney disease, stage 5; E11.22 Type 2 diabetes mellitus with diabetic chronic kidney disease; E11.65 Type 2 diabetes mellitus with hyperglycemia; K26.9 Duodenal ulcer, unspecified as acute or chronic, without hemorrhage or perforation; K21.00 Gastro-esophageal reflux disease with esophagitis, without bleeding; K31.A0 Gastric intestinal metaplasia, unspecified; E86.0 Dehydration; M06.9 Rheumatoid arthritis, unspecified; B18.2 Chronic viral hepatitis C; R53.81 Other malaise; Z99.2 Dependence on renal dialysis; Z79.899 Other long term (current) drug therapy; Z87.891 Personal history of nicotine dependence; Z86.73 Personal history of transient ischemic attack (TIA), and cerebral infarction without residual deficits
CPT/HCPCS: 36415; 70450; 71045; 74176; 77001; 80048; 80053; 80069; 81001; 82274; 82570; 82728; 82962; 83540; 83550; 83605; 84100; 84300; 84484; 85025; 85610; 85730; 86160; 86706; 86850; 86900; 86901; 86920; 87040; 87340; 87426; 87635; 88305; 90937; 93005; 93306; 94640; 94760; 97162; 97166; 97530; 99285; J7030; J7040; J7120; P9016; U0005; A4216; C1750; G0257; J1940; J2405; U0003

== ENCOUNTER → 2021-09-10 04:00 | Outpatient (REF) | payer MEDICAID, SELFPAY ==
[2021-09-10 07:40] LABS: Anion Gap 5 (5-15); BUN 11 mg/dL (7-18); BUN/Creat Ratio 3.8 RATIO (10-20); Chloride 101 mmol/L (98-107); Creatinine, Serum 2.92 mg/dL (0.55-1.02); EST Glomerular Filtration Rate 17 mL/min (>60); Est Glom Filt Rate - Afr Amer 21 mL/min (>60); Glucose 70 mg/dL (74-106); Potassium 3.4 mmol/L (3.5-5.1); Sodium Level 140 mmol/L (136-145)
[2021-09-10 08:01] LABS: Hemoglobin 7.4 g/dL (12.0-15.0); Red Blood Count 2.62 M/mm3 (4.2-5.4)
[2021-09-10 08:02] LABS: Hematocrit 24.2 % (37-47); Mean Corp Hgb Conc 30.6 g/dL (32-36); Mean Corpuscular Hgb 28.2 pg (27.0-32.0); Mean Corpuscular Volume 92.4 fL (81-99); Platelet Count 217 K/mm3 (150-450); RBC Distribution Width CV 13.1 % (11.6-14.6); RBC Distribution Width SD 43.7 fl (35.1-43.9)
== END ==
LOC: OLS.SW1020 04:00
PROVIDERS: PCP Family Medicine; Visit Provider Family Medicine
DX: D64.9 Anemia, unspecified (principal); E11.22 Type 2 diabetes mellitus with diabetic chronic kidney disease; N18.6 End stage renal disease
CPT/HCPCS: 36415; 80048; 83036; 85027

== ENCOUNTER → 2021-09-12 04:00 | Outpatient (REF) | payer MEDICAID, SELFPAY ==
[2021-09-12 08:01] LABS: Prealbumin 11.6 mg/dL (20.0-40.0)
== END ==
LOC: OLS.SW1020 04:00
PROVIDERS: PCP Family Medicine; Referring Provider Family Medicine; Visit Provider Family Medicine
DX: L89.90 Pressure ulcer of unspecified site, unspecified stage (principal); A04.72 Enterocolitis due to Clostridium difficile, not specified as recurrent
CPT/HCPCS: 36415; 84134; 87493

== ENCOUNTER → 2021-09-17 04:00 | Outpatient (REF) | payer MEDICAID, SELFPAY ==
[2021-09-17 09:06] LABS: Hematocrit 24.5 % (37-47); Hemoglobin 7.4 g/dL (12.0-15.0); Mean Corp Hgb Conc 30.2 g/dL (32-36); Mean Corpuscular Hgb 27.9 pg (27.0-32.0); Mean Corpuscular Volume 92.5 fL (81-99); Mean Platelet Vol. 9.7 fl (6.2-12.0); Platelet Count 244 K/mm3 (150-450); RBC Distribution Width CV 13.1 % (11.6-14.6); RBC Distribution Width SD 43.8 fl (35.1-43.9); Red Blood Count 2.65 M/mm3 (4.2-5.4); White Blood Count 5.5 K/mm3 (4.4-11.0)
[2021-09-17 09:23] LABS: Anion Gap 6 (5-15); BUN 55 mg/dL (7-18); BUN/Creat Ratio 11.7 RATIO (10-20); Calcium,Total 8.8 mg/dL (8.5-10.1); Chloride 102 mmol/L (98-107); Creatinine, Serum 4.71 mg/dL (0.55-1.02); EST Glomerular Filtration Rate 10 mL/min (>60); Est Glom Filt Rate - Afr Amer 12 mL/min (>60); Glucose 85 mg/dL (74-106); Potassium 3.6 mmol/L (3.5-5.1); Sodium Level 141 mmol/L (136-145)
== END ==
LOC: OLS.SW1020 04:00
PROVIDERS: PCP Family Medicine; Referring Provider Family Medicine; Visit Provider Family Medicine
DX: N18.6 End stage renal disease (principal); D64.9 Anemia, unspecified
CPT/HCPCS: 36415; 80048; 85027

== ENCOUNTER → 2021-09-24 16:46 | Outpatient (REF) | payer MEDICAID, SELFPAY | LOC: OLS.SW1020 16:46 | PROVIDERS: PCP Family Medicine; Visit Provider Family Medicine | DX: U07.1 COVID-19 (principal) | CPT/HCPCS: 87635; U0003; U0005 ==

== ENCOUNTER → 2021-09-24 | Outpatient (REF) | payer MEDICAID, SELFPAY ==
[2021-09-24 08:34] LABS: Hematocrit 23.6 % (37-47); Hemoglobin 7.4 g/dL (12.0-15.0); Mean Corp Hgb Conc 31.4 g/dL (32-36); Mean Corpuscular Hgb 28.5 pg (27.0-32.0); Mean Corpuscular Volume 90.8 fL (81-99); Mean Platelet Vol. 9.4 fl (6.2-12.0); Platelet Count 226 K/mm3 (150-450); RBC Distribution Width CV 13.2 % (11.6-14.6); RBC Distribution Width SD 43.8 fl (35.1-43.9); White Blood Count 4.1 K/mm3 (4.4-11.0)
[2021-09-24 08:47] LABS: Anion Gap 9 (5-15); BUN 34 mg/dL (7-18); BUN/Creat Ratio 8.6 RATIO (10-20); Calcium,Total 8.5 mg/dL (8.5-10.1); Chloride 107 mmol/L (98-107); Creatinine, Serum 3.95 mg/dL (0.55-1.02); EST Glomerular Filtration Rate 12 mL/min (>60); Est Glom Filt Rate - Afr Amer 15 mL/min (>60); Glucose 85 mg/dL (74-106); Potassium 3.3 mmol/L (3.5-5.1); Sodium Level 142 mmol/L (136-145)
== END | disposition home or self-care (01) ==
LOC: OLS.SW500 05:00
PROVIDERS: PCP Family Medicine; Visit Provider Family Medicine
DX: D64.9 Anemia, unspecified (principal); N18.6 End stage renal disease; U07.1 COVID-19
CPT/HCPCS: 36415; 80048; 85027; 87635; U0003

== ENCOUNTER → 2021-10-08 04:00 | Outpatient (REF) | payer MEDICAID, SELFPAY ==
[2021-10-08 08:29] LABS: Hematocrit 21.6 % (37-47); Hemoglobin 6.8 g/dL (12.0-15.0); Mean Corp Hgb Conc 31.5 g/dL (32-36); Mean Corpuscular Hgb 28.5 pg (27.0-32.0); Mean Corpuscular Volume 90.4 fL (81-99); Mean Platelet Vol. 9.4 fl (6.2-12.0); Platelet Count 217 K/mm3 (150-450); RBC Distribution Width SD 45.9 fl (35.1-43.9); Red Blood Count 2.39 M/mm3 (4.2-5.4); White Blood Count 4.6 K/mm3 (4.4-11.0)
[2021-10-08 08:40] LABS: Anion Gap 8 (5-15); BUN 31 mg/dL (7-18); BUN/Creat Ratio 6.7 RATIO (10-20); Calcium,Total 8.5 mg/dL (8.5-10.1); Chloride 108 mmol/L (98-107); Creatinine, Serum 4.66 mg/dL (0.55-1.02); EST Glomerular Filtration Rate 10 mL/min (>60); Est Glom Filt Rate - Afr Amer 12 mL/min (>60); Glucose 77 mg/dL (74-106); Potassium 3.5 mmol/L (3.5-5.1); Sodium Level 142 mmol/L (136-145)
== END ==
LOC: OLS.SW300 04:00
PROVIDERS: PCP Family Medicine; Visit Provider Family Medicine
DX: D64.9 Anemia, unspecified (principal); N18.6 End stage renal disease
CPT/HCPCS: 36415; 80048; 85027

== ENCOUNTER 2021-10-09 05:00 | Outpatient (REF) | payer MEDICAID, SELFPAY ==
[2021-10-09 08:24] LABS: Hematocrit 23.4 % (37-47); Hemoglobin 7.4 g/dL (12.0-15.0); Mean Corp Hgb Conc 31.6 g/dL (32-36); Mean Corpuscular Hgb 28.8 pg (27.0-32.0); Mean Corpuscular Volume 91.1 fL (81-99); Mean Platelet Vol. 9.4 fl (6.2-12.0); Platelet Count 258 K/mm3 (150-450); RBC Distribution Width SD 46.5 fl (35.1-43.9); Red Blood Count 2.57 M/mm3 (4.2-5.4); White Blood Count 4.6 K/mm3 (4.4-11.0)
== END 2021-10-09 23:59 | disposition home or self-care (01) ==
LOC: OLS.SW300 05:00
PROVIDERS: PCP Family Medicine; Visit Provider Family Medicine
DX: D64.9 Anemia, unspecified (principal); N18.6 End stage renal disease
CPT/HCPCS: 36415; 85027

== ENCOUNTER 2021-10-11 04:00 | Outpatient (REF) | payer MEDICAID, SELFPAY ==
[2021-10-11 07:57] LABS: Hematocrit 24.5 % (37-47); Hemoglobin 7.7 g/dL (12.0-15.0); Mean Corp Hgb Conc 31.4 g/dL (32-36); Mean Corpuscular Hgb 28.8 pg (27.0-32.0); Mean Corpuscular Volume 91.8 fL (81-99); Mean Platelet Vol. 9.3 fl (6.2-12.0); Platelet Count 231 K/mm3 (150-450); RBC Distribution Width CV 14.2 % (11.6-14.6); RBC Distribution Width SD 46.7 fl (35.1-43.9); Red Blood Count 2.67 M/mm3 (4.2-5.4); White Blood Count 4.7 K/mm3 (4.4-11.0)
== END 2021-10-11 23:59 | disposition home or self-care (01) ==
LOC: OLS.SW300 04:00
PROVIDERS: PCP Family Medicine; Referring Provider Family Medicine; Visit Provider Family Medicine
DX: D64.9 Anemia, unspecified (principal); E11.9 Type 2 diabetes mellitus without complications; E78.5 Hyperlipidemia, unspecified
CPT/HCPCS: 36415; 85027

== ENCOUNTER 2021-12-24 10:12 | Outpatient (CLI) | payer MEDICAID, SELFPAY ==
--- NOTE | 2021-12-24 10:17 | VDUE_ITS ---
Reason For Study: Pre op testing Right Arm Left Arm Right cephalic vein is compressible. Left cephalic vein is compressible. Right Cephalic Vein at the shoulder Left Cephalic Vein at the shoulder measures .17 x .16 cm. measures .34 x .32 cm. Right Cephalic Vein mid bicep measures .18 Left Cephalic Vein at mid bicep measures .12 x .2 cm. x .15 cm. Right Cephalic Vein above antecub Left Cephalic Vein above antecub measures .12 measures .19 x .21 cm. x .13 cm. Right Cephalic Vein below antecub Left Cephalic Vein below antecub measures .13 measures .32 x .32 cm. x .16 cm. Right Cephalic Vein in the forearm Left Cephalic Vein in the forearm measures .22 x .24 cm. measures .13 x .14 cm. Right Cephalic Vein at the wrist measures .25 Left Cephalic Vein at the wrist measures .08 x .27 cm. x .09 cm. Right basilic vein is compressible. Left basilic vein is compressible. Right Basilic Vein mid bicep measures .31 Basilic vein at bicep measures .33 x .33 cm. x .32 cm. Basilic vein above antecub measures .38 x .38 Right Basilic Vein above antecub measures .38 cm. x .36 cm. Basilic vein below antecub measures .35 x .37 Right Basilic Vein below antecub measures .3 cm. x .3 cm. Basilic vein in the forearm measures .26 Right Basilic Vein in the forearm x .28 cm. measures .34 x .35 cm. Basilic vein at the wrist measures .26 x .25 Right Basilic Vein at the wrist measures .28 cm. x .33 cm. Brachial art .41 x .39 cm. Brachial art .33 x .33 cm. Brachial art 103.7 cm/s. Brachial art 118.5 cm/s. Radial art .16 x .15 cm. Radial art .16 x .19 cm. Radial art 53.7 cm/s. Radial art 67.3 cm/s. Calcification of the radial artery noted. Calcification of the radial artery noted. VL/Saphenous Vein Mapping, Bilat Interpretation Summary Patent and compressible bilateral upper extremity cephalic and basilic veins wi th dimensions as noted Calcification and diminutive size of bilateral radial arteries Adequate diameter and flow bilateral brachial arteries Ordering Physician: Les Mayer Performed By: Scooter Pulliam RVT ?
== END 2021-12-24 23:59 | disposition home or self-care (01) ==
PROVIDERS: PCP Family Medicine; Visit Provider Surgery
DX: Z01.818 Encounter for other preprocedural examination (principal); Z99.2 Dependence on renal dialysis; N18.6 End stage renal disease
CPT/HCPCS: 93970

== ENCOUNTER → 2022-02-27 | Outpatient (CLI) | payer MEDICAID, SELFPAY ==
[2022-02-27 12:24] LABS: Absolute Lymphocyte Count 1.58 X10^3/uL (0.83-4.51); Absolute Neutrophil Count 1.5 X10^3/uL (2.0-7.7); Basophil# 0.03 X10^3/uL; Basophil% 0.8 % (0-1); Eosinophil# 0.14 X10^3/uL; Eosinophils% 3.6 % (0-5); Hematocrit 33.4 % (37-47); Hemoglobin 10.3 g/dL (12.0-15.0); Lymphocyte # 1.58 X10^3/ul (0.83-4.51); Lymphocyte % 40.8 % (19-41); Mean Corp Hgb Conc 30.8 g/dL (32-36); Mean Corpuscular Hgb 29.4 pg (27.0-32.0); Mean Corpuscular Volume 95.4 fL (81-99); Mean Platelet Vol. 9.9 fl (6.2-12.0); Monocyte# 0.61 X10^3/uL; Monocyte% 15.8 % (0-10); NRBC Flagged by Analyzer 0 % (0-5); Neutrophil % 38.7 % (47-70); Platelet Count 216 K/mm3 (150-450); RBC Distribution Width CV 15.1 % (11.6-14.6); RBC Distribution Width SD 52.8 fl (35.1-43.9); White Blood Count 3.9 K/mm3 (4.4-11.0)
[2022-02-27 13:02] LABS: Hemoglobin A1c 4.9 % (3.8-5.6)
[2022-02-27 13:04] LABS: Anion Gap 6 (5-15); BUN 45 mg/dL (7-18); BUN/Creat Ratio 9.1 RATIO (10-20); Calcium,Total 9.4 mg/dL (8.5-10.1); Chloride 102 mmol/L (98-107); Creatinine, Serum 4.96 mg/dL (0.55-1.02); EST Glomerular Filtration Rate 9 mL/min (>60); Est Glom Filt Rate - Afr Amer 11 mL/min (>60); Glucose 91 mg/dL (74-106); Potassium 4.8 mmol/L (3.5-5.1); Sodium Level 138 mmol/L (136-145)
== END | disposition home or self-care (01) ==
LOC: BIMLAB 11:42
PROVIDERS: PCP Family Medicine; Referring Provider Family Medicine; Visit Provider Family Medicine
DX: E11.22 Type 2 diabetes mellitus with diabetic chronic kidney disease (principal); Z99.2 Dependence on renal dialysis; E11.65 Type 2 diabetes mellitus with hyperglycemia; N18.6 End stage renal disease
CPT/HCPCS: 36415; 80048; 83036; 85025

== ENCOUNTER 2022-03-07 15:23 | Inpatient (IN) | payer MEDICAID, SELFPAY ==
[2022-03-07] VITALS (20 sets, daily range): BP systolic 113–184; BP diastolic 57–80; PULSE 73–92; RESP 15–32; TEMP 36.4–36.9; O2SAT 87–95; BMI 31.1
--- NOTE | 2022-03-07 15:41 | EKG12_ITS ---
Test Reason : REPEAT Blood Pressure : / mmHG Vent. Rate : 072 BPM Atrial Rate : 072 BPM P-R Int : 186 ms QRS Dur : 088 ms QT Int : 440 ms P-R-T Axes : 073 082 051 degrees QTc Int : 481 ms Normal sinus rhythm Septal HI, age undetermined Confirmed by DANYEL PIZARRO, SILVESTRE ([id number]), purchasing expeditor ADRIÁN BURRIS ([id number]) on 03/08/2022 11:23:20 AM Referred By: JAIMIE Confirmed By:SILVESTRE MONTAÑO MD
[2022-03-07] MEDS: Aspirin 81 MG TAB.CHEW 324 MG PO (15:46)
--- NOTE | 2022-03-07 15:50 | RAD_ITS ---
INDICATION: chest pain EXAMINATION/TECHNIQUE: X-RAY - XR Chest 1 View COMPARISON: Chest radiograph from 09/04/2021 FINDINGS: Support devices: There is a dialysis catheter terminating in the superior vena cava. There are no focal consolidations, effusions, or sizable pneumothorax. Cardiomediastinal silhouette is within normal limits. No acute findings in the bones or soft tissues. RAD/Chest 1 View (Portable) IMPRESSION: No acute findings. Electronically Signed: Mark Lopez, at 16:09 EDT ,
--- NOTE | 2022-03-07 15:50 | ED.VIS.CHEST ---
HPI History of Present Illness Chief Complaint: Chest Pain Informant: patient Onset/Context/Timing Onset: Today and Hours Activity at onset: gradual Timing: Continuous Quality: Positive for Aching and Heaviness Location: Substernal Current Severity: Mild Maximum Severity: Mild Worsened By: Nothing Relieved By: Nothing Associated Symptoms: Positive for Nausea and Vomiting Narrative Narrative: 66-year-old female history of diabetes, anemia, mild chronic kidney disease on dialysis, prior non-STEMI. No prior history of DVT or PE. States that while getting dialysis today about 2-2 and half hours and started having upper sternal chest discomfort. Associate with shortness of breath. Prior to the chest pain she was having nausea and vomiting. Said this is been going on now by an hour. She denies any history of chest pain like this before. States it is a pressure and nothing changes it. No history of DVT or PE. No hemoptysis. She is on no blood thinners. Prior Similar Symptoms: No Recent Illness/Hospitalization: No CVD Risk Factors: Positive for Hypertension and Diabetes PE Risk Factors: Negative for Recent Travel/Surgery, Recent Immobilization, Prior DVT or PE, Cancer or OCP + Smoking + >/=35 TAD Risk Factors: Negative for Marfan's Syndrome [facility] Medical History Anemia Asthma Cardiac dysrhythmia, unspecified Chest pain Chronic kidney disease, stage V requiring chronic dialysis Diabetes Hypertension NSTEMI, initial episode of care Rheumatoid arthritis SOB (shortness of breath) Stroke Type II diabetes mellitus Home Medications amlodipine 5 mg tablet See Rx Instructions .Route .COMPLEX #90 tabs 11/22/20 [Rx Last Taken Unknown] ipratropium 0.5 mg-albuterol 3 mg (2.5 mg base)/3 mL nebulization soln 3 ml inhalation Q6HWA.RT PRN shortness of breath or wheezing #90 mL 11/23/20 [Rx Last Taken Unknown] carvedilol 12.5 mg tablet (Coreg) 12.5 mg PO BID 11/28/20 [History Last Taken Unknown] lanolin-mineral oil lotion (Eucerin Original) 1 applic topical DAILY PRN dry skin #500 mL 05/25/21 [Rx Last Taken Unknown] hydralazine 25 mg tablet 25 mg PO TID #0 tabs 12/23/21 [Rx Last Taken Unknown] sodium bicarbonate 650 mg tablet 650 mg PO 4X/DAY #1 TAB 09/06/21 [Rx Last Taken Unknown] ascorbic acid (vitamin C) 500 mg capsule 500 mg PO DAILY #90 caps 11/28/21 [Rx Last Taken Unknown] atorvastatin 40 mg tablet 40 mg PO QHS #30 tabs 11/28/21 [Rx Last Taken Unknown] ferrous sulfate 325 mg (65 mg iron) tablet (FeroSul) 325 mg PO DAILY #90 tabs 11/28/21 [Rx Last Taken Unknown] multivitamin 1 tab PO DAILY #90 tabs 11/28/21 [Rx Last Taken Unknown] pantoprazole 40 mg tablet,delayed release 40 mg PO DAILY #30 tabs 11/28/21 [Rx Last Taken Unknown] calcium acetate(phosphat bind) 667 mg capsule 2 cap PO TID 03/07/22 [History Last Taken Unknown] Allergy/AdvReac Type Severity Reaction Status Date / Time ceftriaxone Allergy Severe Rash Verified 03/07/22 15:28 vancomycin Allergy Severe Rash Verified 03/07/22 15:28 Penicillins Allergy Swelling Verified 03/07/22 15:28 oxycodone HCl [From Percocet] AdvReac Itching Verified 03/07/22 15:28 Family History Mother Hypertension Emphysema/COPD Sister Hypertension Surgical History H/O: hysterectomy History of eye surgery knee scope Social History Smoking Status: Former smoker alcohol intake: current details: 1 per week substance use type: does not use what type of physical activity do you participate in: none ROS ROS ED ROS Narrative Chest pain. Review of Systems ROS Unobtainable: Denies due to encephalopathy Constitutional Constitutional ED: Denies chills Eyes Eyes: Denies none ENT ENT ED: Denies ear pain Cardiovascular Cardiovascular: Reports as per HPI and chest pain Respiratory/Chest Respiratory/Chest: Reports dyspnea; Denies cough Gastrointestinal Gastrointestinal: Reports nausea and vomiting; Denies abdominal pain, constipation, diarrhea or melena Genitourinary Genitourinary ED: Denies dysuria Musculoskeletal Musculoskeletal: Denies arthralgias Integumentary Denies abscess Neurologic Neurologic: Denies headache(s) Psychiatric Psychiatric: Denies anxiety Endocrine Endocrinology: Denies cold intolerance Hematologic/Lymphatic Hematologic/Lymphatic: Denies easy bleeding Allergic/Immunologic Allergic/Immunologic ED: Denies mouth swelling EXAM Physical Exam Narrative Exam Narrative: 66-year-old female vital signs are stable. Initial pulse ox is 88%. On room air. 94% on 2 L. She is hypoxic off oxygen. H EENT exam unremarkable. Neck nontender. Lungs coarse breath sounds bilaterally. Heart regular rate and rhythm rate about 80 no murmur. Chest wall nontender. Abdomen soft nontender. Normal bowel sounds no peritoneal signs. Moving all 4 extremities. Equal symmetrical radial pulses. Calves are nontender without edema or cords. Neurologically she is awake and alert with no focal motor deficits. Const Vital Signs: 03/07/22 15:24 03/07/22 15:27 03/07/22 15:43 Temperature 97.8 F 97.8 F Temperature Source Oral Oral Pulse Rate 81 77 Respiratory Rate 25 H Respiratory Effort Respiratory Depth Respiratory Pattern Blood Pressure 184/68 H 184/68 H Blood Pressure Mean 106 106 Pulse Ox 88 94 95 Oxygen Delivery Method Room Air Nasal Cannula Nasal Cannula Oxygen Flow Rate (L/min) 2 2 03/07/22 16:02 03/07/22 16:07 03/07/22 16:12 Temperature Temperature Source Pulse Rate 74 73 78 Respiratory Rate Respiratory Effort Respiratory Depth Respiratory Pattern Blood Pressure 176/74 H 156/65 H 113/57 L Blood Pressure Mean Pulse Ox Oxygen Delivery Method Oxygen Flow Rate (L/min) 03/07/22 16:24 03/07/22 16:27 03/07/22 17:00 Temperature 97.6 F L Temperature Source Temporal Pulse Rate 75 73 Respiratory Rate 21 H 22 H Respiratory Effort Respiratory Depth Respiratory Pattern Blood Pressure 146/63 H 146/63 H 158/60 H Blood Pressure Mean 90 90 92 Pulse Ox 94 95 Oxygen Delivery Method Nasal Cannula Nasal Cannula Oxygen Flow Rate (L/min) 2 2 03/07/22 17:00 03/07/22 18:00 03/07/22 18:00 Temperature 97.6 F L 97.6 F L Temperature Source Temporal Temporal Pulse Rate 73 89 89 Respiratory Rate 22 H 21 H 21 H Respiratory Effort Respiratory Depth Respiratory Pattern Blood Pressure 158/60 H 174/75 H 174/75 H Blood Pressure Mean 92 108 108 Pulse Ox 95 94 94 Oxygen Delivery Method Nasal Cannula Nasal Cannula Nasal Cannula Oxygen Flow Rate (L/min) 2 2 2 03/07/22 18:30 03/07/22 18:30 03/07/22 19:00 Temperature Temperature Source Pulse Rate 92 Respiratory Rate Respiratory Effort Respiratory Depth Respiratory Pattern Blood Pressure Blood Pressure Mean Pulse Ox 88 92 Oxygen Delivery Method Room Air Nasal Cannula Oxygen Flow Rate (L/min) 2 03/07/22 19:00 03/07/22 19:26 03/07/22 19:26 Temperature 98.2 F Temperature Source Temporal Pulse Rate 92 90 Respiratory Rate 15 30 H 32 H Respiratory Effort Short of Breath Respiratory Depth Shallow Respiratory Pattern Normal Tachypnea Blood Pressure 180/64 H Blood Pressure Mean 102 Pulse Ox 95 92 Oxygen Delivery Method Nasal Cannula Room Air Oxygen Flow Rate (L/min) 2 03/07/22 19:58 03/07/22 20:02 03/07/22 20:02 Temperature 98.5 F Temperature Source Temporal Pulse Rate 89 86 Respiratory Rate 26 H 20 H Respiratory Effort Respiratory Depth Respiratory Pattern Blood Pressure 174/80 H Blood Pressure Mean 111 Pulse Ox 92 92 Oxygen Delivery Method Room Air Room Air Room Air Oxygen Flow Rate (L/min) 03/07/22 20:42 03/07/22 21:00 03/07/22 21:48 Temperature 98.3 F Temperature Source Temporal Pulse Rate 87 Respiratory Rate 20 H Respiratory Effort Respiratory Depth Respiratory Pattern Blood Pressure 158/65 H Blood Pressure Mean 96 Pulse Ox 90 92 87 Oxygen Delivery Method Room Air Room Air Room Air Oxygen Flow Rate (L/min) 03/07/22 21:48 Temperature Temperature Source Pulse Rate Respiratory Rate Respiratory Effort Respiratory Depth Respiratory Pattern Blood Pressure Blood Pressure Mean Pulse Ox 94 Oxygen Delivery Method Nasal Cannula Oxygen Flow Rate (L/min) 2 Positive well nourished and obese; Negative for cachectic, contractures or unkempt General Appearance ED: Negative for unkempt, cachectic, contractures or pallor Nutritional Appearance: obese; Negative for cachectic HEENT Reports moist mucous membranes normocephalic and atraumatic; Negative for trauma or tenderness Eyes PERRL and EOMs intact bilaterally General Eye ED: Negative for pale conjunctiva or scleral icterus Neck no lymphadenopathy, supple and no JVD General: Negative for tenderness Chest Wall inspection of chest normal and palpation of chest normal Chest: Negative for tenderness or other Resp normal respiratory effort Effort and Inspection: Negative for respiratory distress Auscultation: Negative for rales, rhonchi or wheezes Cardio regular rate, regular rhythm, S1 normal heart sound and S2 normal heart sound Rate: Negative for bradycardia Rhythm: Negative for abnormal rhythm GI normal to inspection, nondistended, normoactive bowel sounds, soft to palpation, non-tender, non-distended and no masses; Negative for hepatosplenomegaly Auscultation: Negative for hyperactive bowel sounds Back/Spine no CVA tenderness General Back: Negative for CVA tenderness Cervical Spine: Negative for cervical spine tenderness Extremity normal to inspection General Extremety ED: Negative for edema General Extremity: Negative for edema Neuro oriented x3 and no sensory deficits noted Sensorium / Orientation: awake, alert, oriented to person, oriented to place and oriented to time; Negative for confused, lethargic or stuporous Motor Exam: strength 5/5 throughout; Negative for general weakness Psych mental status grossly normal Appearance: Negative for unkempt Attitude: No agitated Mood & Affect: Negative for depressed, anxious or tearful Skin no rashes or lesions noted and no wounds General Skin Exam: Negative for jaundice or pallor Rashes: No rashes noted Trauma: Negative for abrasion Heart Score History: Moderately Suspicious ECG: Normal Age: >45 - <65 years Risk Factors: >/= 3 Risk Factors or History of CAD Troponin: </= Normal Limit Score: 4 MDM MDM MDM Narrative Medical decision making narrative: 66-year-old female with chest pain is not reproducible. Cardiac work-up will be pursued. She will be given aspirin and nitro. Repeat exam patient is on oxygen because she desaturated to 88 on room air. She is normally not on oxygen. She does have some wheezing. She will be given DuoNeb and albuterol aerosols. P.o. prednisone. And reevaluated. Pertinent turn off the oxygen and see if she desaturates again. COVID test to be obtained. COVID test negative. Patient was treated with prednisone and aerosols. On repeat exam she desaturated. I spoke to the hospitalist she will be admitted overnight. Lab Data Attestation: I reviewed the patient's lab results. Lab results narrative: CBC shows a white count of 6. H&H 10 point history of chronic anemia. Not think electrolytes show a sodium 134. Gap of 5. BUN 22 creatinine 3.1. Glucose 126. Chest x-ray negative. Troponin of 9. Repeat troponin was 8. Repeat EKG was unchanged. CTA of the chest showed no PE. Labs: Laboratory Results - last 24 hr 03/07/22 03/07/22 03/07/22 15:42 15:42 16:30 WBC 6.1 RBC 3.60 L Hgb 10.5 L Hct 33.7 L MCV 93.6 MCH 29.2 MCHC 31.2 L RDW Std Deviation 50.2 H RDW Coeff of Dottie 15.0 H Plt Count 187 MPV 9.9 Immature Gran % (Auto) 1.500 H Neut % (Auto) 50.2 Lymph % (Auto) 32.4 Willacy % (Auto) 12.8 H Eos % (Auto) 2.6 Baso % (Auto) 0.5 Absolute Neuts (auto) 3.1 Absolute Lymphs (auto) 1.98 Nucleated RBC % 1.3 D-Dimer Quant (PE/DVT) 0.87 H* Sodium 134 L Potassium 3.6 Chloride 99 Carbon Dioxide 30.0 Anion Gap 5 BUN 22 H Creatinine 3.12 H Estim Creat Clear Calc 15.73 Est GFR (MDRD) Af Amer 19 L Est GFR (MDRD) Non-Af 16 L BUN/Creatinine Ratio 7.1 L Glucose 126 H Calcium 8.9 Troponin I High Sens 9 03/07/22 17:47 WBC RBC Hgb Hct MCV MCH MCHC RDW Std Deviation RDW Coeff of Dottie Plt Count MPV Immature Gran % (Auto) Neut % (Auto) Lymph % (Auto) Willacy % (Auto) Eos % (Auto) Baso % (Auto) Absolute Neuts (auto) Absolute Lymphs (auto) Nucleated RBC % D-Dimer Quant (PE/DVT) Sodium Potassium Chloride Carbon Dioxide Anion Gap BUN Creatinine Estim Creat Clear Calc Est GFR (MDRD) Af Amer Est GFR (MDRD) Non-Af BUN/Creatinine Ratio Glucose Calcium Troponin I High Sens 8 Radiography Chest X-Ray - ED: 1 View, Read by ED Physician, Normal, Heart, Lungs, Mediastinum, Bony Structures, No Acute Disease and Chronic Changes Diagnostic Testing: Clinical Impression(s) from Imaging Studies Chest X-Ray 03/07/22 15:50 IMPRESSION: No acute findings. Electronically Signed: Mark Lopez, at 16:09 EDT , Chest CTA 03/07/22 17:39 IMPRESSION: 1. No evidence of pulmonary embolus. 2. Tree-in-bud opacities which may represent infectious bronchiolitis. There is no focal consolidation. Electronically Signed: Luis A Saini MD at 18:33 EDT , Chest x-ray, portable, single view interpreted by myself and radiologist shows no acute abnormality. Right-sided Vas-Cath. Normal cardiac silhouette mediastinum. Rhythm Strip Rhythm Strip: Sinus Rhythm Rate: 68 Ectopy: None EKG Initial EKG: Attestation: I personally reviewed and interpreted this EKG as follows: Interpretation: Sinus Rhythm and No Acute Injury Pattern Comments: Normal sinus rhythm rate of 68 no acute signs of DC or ischemia. Prior EKG tracings: available for review Follow-up EKG: Attestation: I personally reviewed and interpreted this EKG as follows: Interpretation: Sinus Rhythm and No Acute Injury Pattern Comments: Repeat EKG at 4:50 PM shows normal sinus rhythm rate of 72 no acute signs of DC or ischemia and unchanged from the prior EKG from 3:57 PM. Prior: Unchanged Discharge Plan Triage Chief Complaint: Chest Pain Other Complaint: Nausea/Vomiting Shortness of Breath ED Provider: Jaylan Bradshaw Dx/Rx/DC Orders Prescriptions: No Action amlodipine 5 mg tablet See Rx Instructions .ROUTE .COMPLEX Qty: 90 3RF Dose Instruction: TAKE ONE TABLET BY MOUTH EVERY DAY Rx Instructions: TAKE ONE TABLET BY MOUTH EVERY DAY carvedilol [Coreg] 12.5 mg tablet 12.5 mg PO BID Rx Instructions: must administer with a meal/food hydralazine 25 mg Tablet 25 mg PO TID Qty: 0 0RF sodium bicarbonate 650 mg Tablet 650 mg PO 4X/DAY Qty: 1 0RF calcium acetate(phosphat bind) 667 mg capsule 2 cap PO TID Label Comments: TAKE 2 CAPSULES BY MOUTH THREE TIMES DAILY WITH MEALS ipratropium-albuterol 0.5 mg-3 mg(2.5 mg base)/3 mL solution for nebulization 3 ml inhalation Q6HWA.RT PRN (Reason: shortness of breath or wheezing) Qty: 90 1RF Eucerin Original Lotion 1 applic TOPICAL DAILY PRN (Reason: dry skin) Qty: 500 3RF ascorbic acid (vitamin C) 500 mg capsule 500 mg PO DAILY Qty: 90 1RF atorvastatin 40 mg tablet 40 mg PO QHS Qty: 30 0RF ferrous sulfate [FeroSul] 325 mg (65 mg iron) tablet 325 mg PO DAILY Qty: 90 3RF multivitamin Tablet 1 tab PO DAILY Qty: 90 2RF pantoprazole 40 mg tablet,delayed release (DR/EC) 40 mg PO DAILY Qty: 30 0RF Primary Care Provider: Prince Cummins Referrals: Prince Cummins, [Primary Care Provider] -
[2022-03-07 15:51] LABS: Absolute Lymphocyte Count 1.98 X10^3/uL (0.83-4.51); Absolute Neutrophil Count 3.1 X10^3/uL (2.0-7.7); Basophil# 0.03 X10^3/uL; Basophil% 0.5 % (0-1); Eosinophil# 0.16 X10^3/uL; Eosinophils% 2.6 % (0-5); Hematocrit 33.7 % (37-47); Hemoglobin 10.5 g/dL (12.0-15.0); Lymphocyte # 1.98 X10^3/ul (0.83-4.51); Lymphocyte % 32.4 % (19-41); Mean Corp Hgb Conc 31.2 g/dL (32-36); Mean Corpuscular Hgb 29.2 pg (27.0-32.0); Mean Corpuscular Volume 93.6 fL (81-99); Mean Platelet Vol. 9.9 fl (6.2-12.0); Monocyte# 0.78 X10^3/uL; Monocyte% 12.8 % (0-10); NRBC Flagged by Analyzer 1.3 % (0-5); Neutrophil # 3.07 X10^3/uL (2.7-7.7); Neutrophil % 50.2 % (47-70); Platelet Count 187 K/mm3 (150-450); RBC Distribution Width SD 50.2 fl (35.1-43.9); White Blood Count 6.1 K/mm3 (4.4-11.0)
[2022-03-07] MEDS: Nitroglycerin SL (ED/IMG/CATH) 0.4 MG TABLET SL ×3 (16:02→16:12)
[2022-03-07 16:05] LABS: Anion Gap 5 (5-15); BUN 22 mg/dL (7-18); BUN/Creat Ratio 7.1 RATIO (10-20); Calcium,Total 8.9 mg/dL (8.5-10.1); Chloride 99 mmol/L (98-107); Creatinine, Serum 3.12 mg/dL (0.55-1.02); EST Glomerular Filtration Rate 16 mL/min (>60); Est Glom Filt Rate - Afr Amer 19 mL/min (>60); Estimated Creatinine Clearance 15.73 ml/min; Glucose 126 mg/dL (74-106); Potassium 3.6 mmol/L (3.5-5.1); Sodium Level 134 mmol/L (136-145); Troponin-I HS (w/2H Reflex) 9 pg/mL (3.0-54.0)
--- NOTE | 2022-03-07 16:19 | ED.RN ---
pt rating chest pain 10/10, states nitro helped a little but pain still 10/10. pt with moist cough throughout series.
--- NOTE | 2022-03-07 16:26 | EKG12_ITS ---
Test Reason : Blood Pressure : / mmHG Vent. Rate : 072 BPM Atrial Rate : 072 BPM P-R Int : 190 ms QRS Dur : 088 ms QT Int : 452 ms P-R-T Axes : 059 083 061 degrees QTc Int : 494 ms Normal sinus rhythm Septal infarct , age undetermined Abnormal ECG Confirmed by DANYEL PIZARRO, SILVESTRE ([id number]), assistant editor ADRIÁN BURRIS ([id number]) on 03/08/2022 11:23:52 AM Referred By: JAIMIE Confirmed By:SILVESTRE MONTAÑO MD
[2022-03-07 17:08] LABS: D-Dimer Quantitative (DVT/PE) 0.87 FEU/ug/m (0.27-0.49)
--- NOTE | 2022-03-07 17:39 | CT_ITS ---
EXAM: CT ANGIOGRAPHY CHEST WITHOUT AND WITH INTRAVENOUS CONTRAST CLINICAL INDICATION: chest pain. elevated d-dimer TECHNIQUE: Helically acquired angiography images were obtained of the chest without and with intravenous contrast. This CT exam was performed using one or more of the following dose reduction techniques: automated exposure control, adjustment of the mA and/or kV according to patient size, and/or use of iterative reconstruction technique. This report was created using [employer] report generation technology. MIP reconstructed images were created and reviewed. CONTRAST: IV 100mL [id number] COMPARISON: None. FINDINGS: PULMONARY ARTERIES: Unremarkable. Normal in caliber. No evidence of pulmonary embolism. AORTA: Unremarkable. Normal in caliber. No evidence of dissection. GREAT VESSELS OF AORTIC ARCH: Unremarkable. Normal in caliber. No evidence of dissection. LUNGS AND PLEURAL SPACES: There are tree-in-bud opacities in both lungs which may represent an infectious bronchiolitis. No mass. No pleural effusion or thickening. No pneumothorax. HEART: Unremarkable. Heart size is normal. No pericardial effusion. No signs of right heart strain, ratio of right ventricle to left ventricle measures less than 1. MEDIASTINUM: There is a small hiatal hernia. No mediastinal or hilar adenopathy. Esophagus is unremarkable. THYROID: Unremarkable. No thyroid lesions. BONES/JOINTS: Unremarkable. No suspicious lytic or blastic abnormality. CT/CTA Chest W/WO Contrast IMPRESSION: 1. No evidence of pulmonary embolus. 2. Tree-in-bud opacities which may represent infectious bronchiolitis. There is no focal consolidation. Electronically Signed: Luis A Saini MD at 18:33 EDT ,
[2022-03-07 17:46] LABS: Reflex Troponin-HS? (from REC) Y
[2022-03-07 18:28] LABS: Troponin-I HS 8 pg/mL (3.0-54.0)
[2022-03-07] MEDS: Albuterol 2.5 MG/3 ML VIAL.NEB. INHALATION (19:26)
[2022-03-07] MEDS: Ipratropium/Albuterol Sulfate 3 ML AMPUL.NEB INHALATION (19:26)
[2022-03-07] MEDS: predniSONE 20 MG Tablet 60 MG PO (19:42)
--- NOTE | 2022-03-07 19:44 | CPS ---
x1 Albuterol given to pt. in ER as well
--- NOTE | 2022-03-07 23:09 | HP.PCM.HOS_ITS ---
HPI - General General Date of Admission: 03/07/22 Date of Service: 03/07/22 Chief Complaint: shortness of breath HPI Narrative NATALI KINSEY, is a 66 F who presents with shortness of breath. Patient was feeling well and then today started feeling short of breath. Patient was actually at dialysis today when she started experiencing. She states that she did complete her dialysis session. She is coughing up green phlegm and does shea ve a sore throat but no rhinitis. She presented emergency room and had an elevated D-dimer and underwent a CT angiogram of her chest that showed no pulmonary embolus but tree-in-bud in her lungs. Patient received prednisone as well as bronchodilators and was placed on oxygen as she was hypoxic on room air. Given the hypoxia the hospital service was contacted for admission. [facility] Medical History Anemia Asthma Cardiac dysrhythmia, unspecified Chest pain Chronic kidney disease, stage V requiring chronic dialysis Diabetes Hypertension NSTEMI, initial episode of care Rheumatoid arthritis SOB (shortness of breath) Stroke Type II diabetes mellitus Home Medications amlodipine 5 mg tablet See Rx Instructions .Route .COMPLEX #90 tabs 11/22/20 [Rx Last Taken Unknown] ipratropium 0.5 mg-albuterol 3 mg (2.5 mg base)/3 mL nebulization soln 3 ml inhalation Q6HWA.RT PRN shortness of breath or wheezing #90 mL 11/23/20 [Rx Last Taken Unknown] carvedilol 12.5 mg tablet (Coreg) 12.5 mg PO BID 11/28/20 [History Last Taken Unknown] lanolin-mineral oil lotion (Eucerin Original) 1 applic topical DAILY PRN dry skin #500 mL 05/25/21 [Rx Last Taken Unknown] hydralazine 25 mg tablet 25 mg PO TID #0 tabs 09/06/21 [Rx Last Taken Unknown] sodium bicarbonate 650 mg tablet 650 mg PO 4X/DAY #1 TAB 09/06/21 [Rx Last Taken Unknown] ascorbic acid (vitamin C) 500 mg capsule 500 mg PO DAILY #90 caps 11/28/21 [Rx Last Taken Unknown] atorvastatin 40 mg tablet 40 mg PO QHS #30 tabs 11/28/21 [Rx Last Taken Unknown] ferrous sulfate 325 mg (65 mg iron) tablet (FeroSul) 325 mg PO DAILY #90 tabs 11/28/21 [Rx Last Taken Unknown] multivitamin 1 tab PO DAILY #90 tabs 11/28/21 [Rx Last Taken Unknown] pantoprazole 40 mg tablet,delayed release 40 mg PO DAILY #30 tabs 11/28/21 [Rx Last Taken Unknown] calcium acetate(phosphat bind) 667 mg capsule 2 cap PO TID 03/07/22 [History Last Taken Unknown] Allergy/AdvReac Type Severity Reaction Status Date / Time ceftriaxone Allergy Severe Rash Verified 03/07/22 15:28 vancomycin Allergy Severe Rash Verified 03/07/22 15:28 Penicillins Allergy Swelling Verified 03/07/22 15:28 oxycodone HCl [From Percocet] AdvReac Itching Verified 03/07/22 15:28 Family History Mother Hypertension Emphysema/COPD Sister Hypertension Surgical History H/O: hysterectomy History of eye surgery knee scope Social History Smoking Status: Former smoker alcohol intake: current details: 1 per week substance use type: does not use what type of physical activity do you participate in: none ROS ROS Narrative Does have some cramping in her legs. All review of systems were negative except as mentioned above in the history of present illness and the other review of systems. Vital Signs Vital Signs Vital Signs: 03/07/22 15:24 03/07/22 15:27 03/07/22 15:43 Temperature 36.6 C 36.6 C Temperature Source Oral Oral Pulse Rate 81 77 Respiratory Rate 25 H Respiratory Effort Respiratory Depth Respiratory Pattern Blood Pressure 184/68 H 184/68 H Blood Pressure Mean 106 106 Pulse Ox 88 94 95 Oxygen Delivery Method Room Air Nasal Cannula Nasal Cannula Oxygen Flow Rate (L/min) 2 2 03/07/22 16:02 03/07/22 16:07 03/07/22 16:12 Temperature Temperature Source Pulse Rate 74 73 78 Respiratory Rate Respiratory Effort Respiratory Depth Respiratory Pattern Blood Pressure 176/74 H 156/65 H 113/57 L Blood Pressure Mean Pulse Ox Oxygen Delivery Method Oxygen Flow Rate (L/min) 03/07/22 16:24 03/07/22 16:27 03/07/22 17:00 Temperature 36.4 C L Temperature Source Temporal Pulse Rate 75 73 Respiratory Rate 21 H 22 H Respiratory Effort Respiratory Depth Respiratory Pattern Blood Pressure 146/63 H 146/63 H 158/60 H Blood Pressure Mean 90 90 92 Pulse Ox 94 95 Oxygen Delivery Method Nasal Cannula Nasal Cannula Oxygen Flow Rate (L/min) 2 2 03/07/22 17:00 03/07/22 18:00 03/07/22 18:00 Temperature 36.4 C L 36.4 C L Temperature Source Temporal Temporal Pulse Rate 73 89 89 Respiratory Rate 22 H 21 H 21 H Respiratory Effort Respiratory Depth Respiratory Pattern Blood Pressure 158/60 H 174/75 H 174/75 H Blood Pressure Mean 92 108 108 Pulse Ox 95 94 94 Oxygen Delivery Method Nasal Cannula Nasal Cannula Nasal Cannula Oxygen Flow Rate (L/min) 2 2 2 03/07/22 18:30 03/07/22 18:30 03/07/22 19:00 Temperature Temperature Source Pulse Rate 92 Respiratory Rate Respiratory Effort Respiratory Depth Respiratory Pattern Blood Pressure Blood Pressure Mean Pulse Ox 88 92 Oxygen Delivery Method Room Air Nasal Cannula Oxygen Flow Rate (L/min) 2 03/07/22 19:00 03/07/22 19:26 03/07/22 19:26 Temperature 36.8 C Temperature Source Temporal Pulse Rate 92 90 Respiratory Rate 15 30 H 32 H Respiratory Effort Short of Breath Respiratory Depth Shallow Respiratory Pattern Normal Tachypnea Blood Pressure 180/64 H Blood Pressure Mean 102 Pulse Ox 95 92 Oxygen Delivery Method Nasal Cannula Room Air Oxygen Flow Rate (L/min) 2 03/07/22 19:58 03/07/22 20:02 03/07/22 20:02 Temperature 36.9 C Temperature Source Temporal Pulse Rate 89 86 Respiratory Rate 26 H 20 H Respiratory Effort Respiratory Depth Respiratory Pattern Blood Pressure 174/80 H Blood Pressure Mean 111 Pulse Ox 92 92 Oxygen Delivery Method Room Air Room Air Room Air Oxygen Flow Rate (L/min) 03/07/22 20:42 03/07/22 21:00 03/07/22 21:48 Temperature 36.8 C Temperature Source Temporal Pulse Rate 87 Respiratory Rate 20 H Respiratory Effort Respiratory Depth Respiratory Pattern Blood Pressure 158/65 H Blood Pressure Mean 96 Pulse Ox 90 92 87 Oxygen Delivery Method Room Air Room Air Room Air Oxygen Flow Rate (L/min) 03/07/22 21:48 03/07/22 22:51 Temperature 36.6 C Temperature Source Temporal Pulse Rate 84 Respiratory Rate 20 H Respiratory Effort Respiratory Depth Respiratory Pattern Blood Pressure 169/70 H Blood Pressure Mean 103 Pulse Ox 94 94 Oxygen Delivery Method Nasal Cannula Nasal Cannula Oxygen Flow Rate (L/min) 2 2 Weight Weight: 82.4 kg Body Mass Index (BMI) 31.1 Physical Exam Const alert and no apparent distress General Appearance: cooperative HEENT normocephalic, head/scalp atraumatic, moist oral mucous membranes and oropharynx normal Eyes Eyes Narrative: No icterus Neck no lymphadenopathy Resp normal respiratory effort Resp Narrative: Bilateral wheezing Cardio regular rate, regular rhythm, S1 normal heart sound and S2 normal heart sound GI normal to inspection, nondistended, normoactive bowel sounds, soft to palpation and non-tender Extremity normal to inspection Neuro oriented x3 Sensorium / Orientation: awake and oriented to person Speech: speech normal Psych affect normal Results Lab / Micro Data Attestation: I reviewed the patient's lab results. Result Diagrams: 03/07/22 15:42 03/07/22 15:42 Labs: Laboratory Results - last 24 hr 03/07/22 15:42: WBC 6.1, RBC 3.60 L, Hgb 10.5 L, Hct 33.7 L, MCV 93.6, MCH 29.2, MCHC 31.2 L, RDW Std Deviation 50.2 H, RDW Coeff of Dottie 15.0 H, Plt Count 187, MPV 9.9, Immature Gran % (Auto) 1.500 H, Neut % (Auto) 50.2, Lymph % (Auto) 32.4, [place] % (Auto) 12.8 H, Eos % (Auto) 2.6, Baso % (Auto) 0.5, Absolute Neuts (auto) 3.1, Absolute Lymphs (auto) 1.98, Nucleated RBC % 1.3 03/07/22 15:42: Sodium 134 L, Potassium 3.6, Chloride 99, Carbon Dioxide 30.0, Anion Gap 5, BUN 22 H, Creatinine 3.12 H, Estim Creat Clear Calc 15.73, Est GFR (MDRD) Af Amer 19 L, Est GFR (MDRD) Non-Af 16 L, BUN/Creatinine Ratio 7.1 L, Glucose 126 H, Calcium 8.9, Troponin I High Sens 9 03/07/22 16:30: D-Dimer Quant (PE/DVT) 0.87 H* 03/07/22 17:47: Troponin I High Sens 8 Micro: Microbiology 03/07/22 19:40 Nasal Secretion SARS-CoV-2 Antigen (Rapid) - Final Rhythm Strip Rhythm Strip: Sinus Rhythm Rate: 68 Ectopy: None EKG Initial EKG: Attestation: I personally reviewed and interpreted this EKG as follows: Prior EKG tracings: available for review EKG Rhythm Intrepretation: Sinus Rhythm (Septal infarct. No change from EKG on August 30, 2021.) Radiology Impression Chest X-Ray 03/07/22 15:50 IMPRESSION: No acute findings. Electronically Signed: Mark Lopez, at 16:09 EDT , Chest CTA 03/07/22 17:39 IMPRESSION: 1. No evidence of pulmonary embolus. 2. Tree-in-bud opacities which may represent infectious bronchiolitis. There is no focal consolidation. Electronically Signed: Luis A Saini MD at 18:33 EDT , Assessment & Plan Assessment/Plan (1) Acute and chronic respiratory failure with hypoxia: (2) Bronchitis: (3) Chronic kidney disease, stage V requiring chronic dialysis: PLAN: Plan 1. Acute hypoxic respiratory failure Suspect due to acute bronchitis Plan: * Continue with prednisone for total 5 days as well as bronchodilators * Wean oxygen as tolerated 2. Acute bronchitis Suspect viral COVID-19 was negative Cannot definitively rule out bacterial pneumonia at this time Plan: * Treatment as above * Check sputum culture and urinary antigens for Streptococcus and Legionella * Check respiratory viral panel * Will add azithromycin the case is does have to be a bacterial pneumonia 3. End-stage renal disease On hemodialysis Last hemodialysis was today which she completed Did reach out to Dr. Gaytan about dialysis. Typically she would be due for it on the but await hear back if she should have it sooner since she did get t he contrast with her CTA today. I did not formally consult Dr. Gaytan, but if requires hospitalization on May need to be consulted outpatient have dialysis while she is here. 4. DVT prophylaxis: Not indicated given current observation status. Charges/Coding Visit Charges OBSV E&M: 44468 Initial observation care L2
[2022-03-08] VITALS (13 sets, daily range): BP systolic 153–199; BP diastolic 51–74; PULSE 68–101; RESP 19–24; TEMP 36.7–37.9; O2SAT 95–99; BMI 29.6
[2022-03-08] MEDS: Acetaminophen 325 MG Tablet 650 MG PO ×3 (00:57→21:02)
[2022-03-08] MEDS: 0.9% Saline Lock 10 ML Syringe IV ×4 (00:58→21:02)
[2022-03-08] MEDS: Ondansetron 4 MG/2 ML Vial IV (01:23)
[2022-03-08 03:56] LABS: Absolute Lymphocyte Count 0.69 X10^3/uL (0.83-4.51); Absolute Neutrophil Count 10.8 X10^3/uL (2.0-7.7); Basophil# 0.01 X10^3/uL; Basophil% 0.1 % (0-1); Hematocrit 34.1 % (37-47); Hemoglobin 10.6 g/dL (12.0-15.0); Lymphocyte # 0.69 X10^3/ul (0.83-4.51); Lymphocyte % 5.9 % (19-41); Mean Corp Hgb Conc 31.1 g/dL (32-36); Mean Corpuscular Hgb 29.6 pg (27.0-32.0); Mean Corpuscular Volume 95.3 fL (81-99); Mean Platelet Vol. 9.5 fl (6.2-12.0); Monocyte# 0.26 X10^3/uL; Monocyte% 2.2 % (0-10); NRBC Flagged by Analyzer 0.3 % (0-5); Neutrophil # 10.75 X10^3/uL (2.7-7.7); Neutrophil % 91.1 % (47-70); Platelet Count 173 K/mm3 (150-450); RBC Distribution Width SD 50.2 fl (35.1-43.9); Red Blood Count 3.58 M/mm3 (4.2-5.4); White Blood Count 11.8 K/mm3 (4.4-11.0)
[2022-03-08] MEDS: hydrALAZINE 25 MG Tablet PO ×3 (04:27→21:02)
[2022-03-08 05:02] LABS: Anion Gap 12 (5-15); BUN 29 mg/dL (7-18); BUN/Creat Ratio 6.4 RATIO (10-20); Calcium,Total 9.4 mg/dL (8.5-10.1); Chloride 95 mmol/L (98-107); Creatinine, Serum 4.55 mg/dL (0.55-1.02); EST Glomerular Filtration Rate 10 mL/min (>60); Est Glom Filt Rate - Afr Amer 13 mL/min (>60); Estimated Creatinine Clearance 10.79 ml/min; Glucose 250 mg/dL (74-106); Potassium 4.7 mmol/L (3.5-5.1); Sodium Level 131 mmol/L (136-145)
--- NOTE | 2022-03-08 06:11 | NURSING ---
PO 99% on 2L NC - O2 decreased to 1L NC - will monitor
--- NOTE | 2022-03-08 08:00 | NURSING ---
Addendum entered by Shakira Cheema 03/08/22 08:22: Lung sounds assessed, see shift assessment, intervention. Respiratory called for breathing tx. This nurse increased o2 to 2L NC at this time as well. Assisted pt in ordering breakfast. Original Note: This Nurse called into room, pt c/o SOB. sp02 95% on 1L Nc.
[2022-03-08] MEDS: Calcium Acetate 667 MG Capsule 1334 MG PO ×3 (08:09→16:40)
[2022-03-08] MEDS: Sodium Bicarbonate 650 MG Tablet PO ×4 (08:11→21:02)
[2022-03-08] MEDS: predniSONE 20 MG Tablet 40 MG PO (08:11)
[2022-03-08] MEDS: Pantoprazole Sodium 40 MG Tablet PO (08:11)
[2022-03-08] MEDS: Carvedilol 12.5 MG Tablet PO ×2 (08:11→16:40)
[2022-03-08] MEDS: amLODIPine 5 MG Tablet PO (08:13)
[2022-03-08] MEDS: guaiFENesin 1,200 MG Tablet 1200 MG PO ×2 (08:13→21:02)
[2022-03-08] MEDS: Albuterol 2.5 MG/3 ML VIAL.NEB. INHALATION ×2 (08:36→15:53)
[2022-03-08] MEDS: Ferrous Sulfate 325 MG Tablet PO (12:39)
--- NOTE | 2022-03-08 14:22 | CHAPLAIN ---
Type of Pastoral Visit _x__ Initial Visit ___ Follow-up Visit ___ On-call Visit ___ General Patient Visit ___ Spiritual Assessment ___ Family Conference ___ Bereavement ___ Rapid Response ___ Code Blue ___ Other (describe below) Pastoral Care Referral From _x__ Patient ___ Family ___ Nurse ___ Physician ___ Chief Power Dispatcher ___ Sash Sticker ___ Other (describe below) Sacrament/Intervention _x__ Active listening ___ Anointing ___ Restorationist ___ Bereavement ___ Communion _x__ Analisa exploration ___ _x__ Life review _x__ Prayer ___ Reconciliation ___ Sacrament of Sick _x__ Supportive presence ___ Wedding ___ Other (describe below) Pastoral Comments patient speaks of new diagnosis for bronchitis discovered after intervention from her dialysis team; pt is thankful that now she is getting treatment for this; pt speaks of her analisa in God as main source of her strength and hope; pt gives some life review including raising of her grandchildren and now one is going off to college; pt considers her main job in life is coming to completion due to this task of parenting; pt has a analisa connection and 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
--- NOTE | 2022-03-08 15:02 | CASEMGMT ---
NIKKI LINARES Assessment: Face to Face with pt for initial transition planning/care coordination assessment. NIKKI LINARES introduced self and role at [facility], pt voices understanding and consents to assessment. Pt is A/O x4 and answers all questions appropriately at this time. Pt sitting up in bed in no distress with oxygen on. Care providers, pharmacy, and demographics verified/updated. Admitting Dx: bronchitis PCP:Placido Specialists:margarita Gaytan Preferred Pharmacy: [facility] Insurance: [facility] Prescription Benefit: yes LW/HPOA: Pt denies having a LW/DPOA and denies need for info regarding AD. LNOK: Ki Enamorado, grandson Living Arrangements: Pt lives with two adult grandsons in a ground level duplex with 2 steps to enter with a rail. Pt reports she is I in ADL's and denies concerns at home. Transportation: Pt uses [employer] for transportation to medical appts as well as dialysis. Pt has dialysis T/Th/Sat at 11am. DME/HHC/SNF: Pt has a FWW, cane, shower chair and grab bars in the bathroom. Pt reports she sometimes doesn't use the walker or cane. Pt has had HHC in the past but is unsure of the name of the agency. Pt has been to [place] in the past. Pt states no concerns with going home at time of dc. Pt states no further concerns/needs. CM to follow. Advised pt to ask CM if any further question/concerns/needs arise, voices understanding. Pt Goal: Home Plan: Home
--- NOTE | 2022-03-08 16:13 | CON.PCM.RE_ITS ---
Assessment & Plan Assessment/Plan (1) ESRD (end stage renal disease) on dialysis: (2) Hyponatremia: (3) HTN (hypertension): (4) Acute respiratory failure with hypoxia: HPI Consult Data Date of Consult: 03/08/22 HPI Narrative HPI Narrative: NATALI KINSEY, is a 66 F who presents COUNTS INCLUDE 234 BEDS AT THE [facility] Medical History Anemia Asthma Cardiac dysrhythmia, unspecified Chest pain Chronic kidney disease, stage V requiring chronic dialysis Diabetes Hypertension NSTEMI, initial episode of care Rheumatoid arthritis SOB (shortness of breath) Stroke Type II diabetes mellitus Home Medications carvedilol 12.5 mg tablet (Coreg) 12.5 mg PO BID 11/28/20 [History Last Taken 0 03/07/22] hydralazine 25 mg tablet 25 mg PO TID #0 tabs 09/06/21 [Rx Last Taken 03/07/22] sodium bicarbonate 650 mg tablet 650 mg PO 4X/DAY #1 TAB 09/06/21 [Rx Last Taken 03/07/22] ascorbic acid (vitamin C) 500 mg capsule 500 mg PO DAILY #90 caps 11/28/21 [Rx Last Taken 03/07/22] atorvastatin 40 mg tablet 40 mg PO QHS #30 tabs 11/28/21 [Rx Last Taken 03/07/22] ferrous sulfate 325 mg (65 mg iron) tablet (FeroSul) 325 mg PO DAILY #90 tabs 11/28/21 [Rx Last Taken 03/07/22] multivitamin 1 tab PO DAILY #90 tabs 11/28/21 [Rx Last Taken 03/07/22] pantoprazole 40 mg tablet,delayed release 40 mg PO DAILY #30 tabs 11/28/21 [Rx Last Taken 03/07/22] calcium acetate(phosphat bind) 667 mg capsule 2 cap PO TID 03/07/22 [History Last Taken 03/07/22] acetaminophen 325 mg capsule (Tylenol) 650 mg PO Q4H PRN Pain 03/08/22 [History Last Taken 03/06/22] amlodipine 5 mg tablet 5 mg PO DAILY BP 03/08/22 [History Last Taken Unknown] Allergy/AdvReac Type Severity Reaction Status Date / Time ceftriaxone Allergy Severe Rash Verified 03/07/22 15:28 vancomycin Allergy Severe Rash Verified 03/07/22 15:28 Penicillins Allergy Swelling Verified 03/07/22 15:28 oxycodone HCl [From Percocet] AdvReac Itching Verified 03/07/22 15:28 Family History Mother Hypertension Emphysema/COPD Sister Hypertension Surgical History H/O: hysterectomy History of eye surgery knee scope Social History Smoking Status: Former smoker alcohol intake: current details: 1 per week substance use type: does not use what type of physical activity do you participate in: none Lab / Micro Data Result Diagrams: 03/08/22 02:45 03/08/22 02:45 Labs: Laboratory Results - last 24 hr 03/07/22 16:30: D-Dimer Quant (PE/DVT) 0.87 H* 03/07/22 17:47: Troponin I High Sens 8 03/08/22 02:45: WBC 11.8 H, RBC 3.58 L, Hgb 10.6 L, Hct 34.1 L, MCV 95.3, MCH 29.6, MCHC 31.1 L, RDW Std Deviation 50.2 H, RDW Coeff of Dottie 15.0 H, Plt Count 173, MPV 9.5, Immature Gran % (Auto) 0.700, Neut % (Auto) 91.1 H, Lymph % (Auto) 5.9 L, [place] % (Auto) 2.2, Eos % (Auto) 0.0, Baso % (Auto) 0.1, Absolute Neuts (auto) 10.8 H, Absolute Lymphs (auto) 0.69 L, Nucleated RBC % 0.3 03/08/22 02:45: Sodium 131 L, Potassium 4.7, Chloride 95 L, Carbon Dioxide 24.0, Anion Gap 12, BUN 29 H, Creatinine 4.55 H, Estim Creat Clear Calc 10.79, Est GFR (MDRD) Af Amer 13 L, Est GFR (MDRD) Non-Af 10 L, BUN/Creatinine Ratio 6.4 L, Glucose 250 H, Calcium 9.4 Micro: Microbiology 03/08/22 01:25 Sputum, Expectorated/Coughed Gram Stain - Final 03/08/22 02:40 Mucosa - Nasopharyngeal Respiratory Panel (PCR) - Final 03/08/22 02:40 Urine, Clean Catch Legionella Antigen - Final 03/08/22 02:40 Urine, Clean Catch Streptococcus pneumoniae Antigen (M - Final Streptococcus pneumonia Ag 03/07/22 19:40 Nasal Secretion SARS-CoV-2 Antigen (Rapid) - Final Rhythm Strip Rhythm Strip: Sinus Rhythm Rate: 68 Ectopy: None Radiology Impression Chest CTA 03/07/22 17:39 IMPRESSION: 1. No evidence of pulmonary embolus. 2. Tree-in-bud opacities which may represent infectious bronchiolitis. There is no focal consolidation. Electronically Signed: Luis A Saini MD at 18:33 EDT ,
--- NOTE | 2022-03-08 16:29 | PCM.PN.HOSP ---
Subjective Subjective Feeling better today, but still requiring oxygen. She does not wear any oxygen at baseline. Objective Data Objective Data Vital Signs: Vital Signs Temp Pulse Resp BP Pulse Ox 98.7 F 91 19 H 156/51 H 96 03/08/22 12:44 03/08/22 15:55 03/08/22 15:55 03/08/22 12:44 03/08/22 12:44 Oxygen Flow Rate (L/min) 2 Oxygen Delivery Method Nasal Cannula Weight: 172 lb 9.951 oz Body Mass Index (BMI) 29.6 Intake & Output: Intake and Output for Last 24 Hours 03/07/22 03/08/22 03/09/22 03:59 03:59 03:59 Intake Total 255 / 255 300 / 300 Output Total 100 / 100 Balance 255 / 255 200 / 200 Lab / Micro Data Result Diagrams: 03/08/22 02:45 03/08/22 02:45 Labs: Laboratory Results - last 24 hr 03/07/22 16:30: D-Dimer Quant (PE/DVT) 0.87 H* 03/07/22 17:47: Troponin I High Sens 8 03/08/22 02:45: WBC 11.8 H, RBC 3.58 L, Hgb 10.6 L, Hct 34.1 L, MCV 95.3, MCH 29.6, MCHC 31.1 L, RDW Std Deviation 50.2 H, RDW Coeff of Dottie 15.0 H, Plt Count 173, MPV 9.5, Immature Gran % (Auto) 0.700, Neut % (Auto) 91.1 H, Lymph % (Auto) 5.9 L, [place] % (Auto) 2.2, Eos % (Auto) 0.0, Baso % (Auto) 0.1, Absolute Neuts (auto) 10.8 H, Absolute Lymphs (auto) 0.69 L, Nucleated RBC % 0.3 03/08/22 02:45: Sodium 131 L, Potassium 4.7, Chloride 95 L, Carbon Dioxide 24.0, Anion Gap 12, BUN 29 H, Creatinine 4.55 H, Estim Creat Clear Calc 10.79, Est GFR (MDRD) Af Amer 13 L, Est GFR (MDRD) Non-Af 10 L, BUN/Creatinine Ratio 6.4 L, Glucose 250 H, Calcium 9.4 Micro: Microbiology 03/08/22 01:25 Sputum, Expectorated/Coughed Gram Stain - Final 03/08/22 02:40 Mucosa - Nasopharyngeal Respiratory Panel (PCR) - Final 03/08/22 02:40 Urine, Clean Catch Legionella Antigen - Final 03/08/22 02:40 Urine, Clean Catch Streptococcus pneumoniae Antigen (M - Final Streptococcus pneumonia Ag 03/07/22 19:40 Nasal Secretion SARS-CoV-2 Antigen (Rapid) - Final Radiography Diagnostic Testing: Radiology Impression Chest CTA 03/07/22 17:39 IMPRESSION: 1. No evidence of pulmonary embolus. 2. Tree-in-bud opacities which may represent infectious bronchiolitis. There is no focal consolidation. Electronically Signed: Luis A Saini MD at 18:33 EDT , Rhythm Strip Rhythm Strip: Sinus Rhythm Rate: 68 Ectopy: None Physical Exam Const alert, oriented x3 and no apparent distress General Appearance: cooperative HEENT normocephalic and moist oral mucous membranes Eyes PERRL, EOMs intact bilaterally and conjunctivae normal Neck supple and no JVD Resp normal respiratory effort, no retractions and no use of accessory muscles Auscultation: wheezes; Negative for crackles, rales or rhonchi Cardio regular rate, regular rhythm, S1 normal heart sound, S2 normal heart sound and no murmurs GI soft to palpation, non-tender and non-distended; Negative for hepatosplenomegaly Extremity no clubbing, cyanosis or edema Skin no rashes or lesions noted Neuro no focal motor deficits and no sensory deficits noted Psych affect normal Appearance: appropriate Assessment & Plan Assessment/Plan (1) Acute and chronic respiratory failure with hypoxia: (2) Bronchitis: (3) Chronic kidney disease, stage V requiring chronic dialysis: PLAN: Plan 1. Acute hypoxic respiratory failure secondary to acute bronchitis ? CT scan demonstrated tree-in-bud findings either viral or bacterial in origin ? Viral respiratory panel was negative however urine antigen shows strep and sputum culture with gram-positive cocci, will switch to Levaquin as she is allergic to penicillins as well as Rocephin ? Wean oxygen as tolerated ? We will do a short burst of prednisone ? We will do an ambulatory pulse ox in the morning after dialysis if she is not feeling any better to see how much oxygen she will need on discharge. 2. HTN/HLD ? Blood pressures are stable asked?tinea with her home blood pressure medications ? Continue with her home Lipitor 3. End-stage renal disease ? Continue with her hemodialysis ? Consult nephrology for assistance ? Continue with iron supplementation DVT: Ambulation Charges/Coding Visit Charges Inpatient E&M: 44462 Subs Hosp L2
[2022-03-08] MEDS: levoFLOXacin IV 750 MG/150 ML BAG 100 MG IV (17:13)
[2022-03-09] VITALS (17 sets, daily range): BP systolic 135–171; BP diastolic 54–81; PULSE 85–99; RESP 18–21; TEMP 36.7–37.2; O2SAT 4–98
[2022-03-09] MEDS: hydrALAZINE 25 MG Tablet PO ×3 (05:54→22:38)
[2022-03-09 07:00] LABS: Anion Gap 11 (5-15); BUN 62 mg/dL (7-18); BUN/Creat Ratio 9.6 RATIO (10-20); Chloride 97 mmol/L (98-107); Creatinine, Serum 6.46 mg/dL (0.55-1.02); EST Glomerular Filtration Rate 7 mL/min (>60); Est Glom Filt Rate - Afr Amer 8 mL/min (>60); Glucose 106 mg/dL (74-106); Potassium 4.6 mmol/L (3.5-5.1); Sodium Level 134 mmol/L (136-145)
--- NOTE | 2022-03-09 09:18 | CASEMGMT ---
RN CM in to pt room to discuss DME in case pt should need home oxygen. Provided pt with a list of local in network DME companies, pt chose [facility]. Discussed with her that she will need to call [employer] once home to bring out concentrator and that a portable tank will be sent home with her. Pt verbalized understanding. Green sheet on chart. Pox also put on chart.
[2022-03-09] MEDS: predniSONE 20 MG Tablet 40 MG PO (09:30)
[2022-03-09] MEDS: Pantoprazole Sodium 40 MG Tablet PO (09:30)
[2022-03-09] MEDS: amLODIPine 5 MG Tablet PO (09:30)
[2022-03-09] MEDS: Calcium Acetate 667 MG Capsule 1334 MG PO ×3 (09:31→18:46)
[2022-03-09] MEDS: guaiFENesin 1,200 MG Tablet 1200 MG PO ×2 (09:31→22:39)
[2022-03-09] MEDS: Sodium Bicarbonate 650 MG Tablet PO ×4 (09:31→22:39)
[2022-03-09] MEDS: Carvedilol 12.5 MG Tablet PO ×2 (09:31→18:46)
[2022-03-09] MEDS: Albuterol 2.5 MG/3 ML VIAL.NEB. INHALATION (10:18)
[2022-03-09] MEDS: Ferrous Sulfate 325 MG Tablet PO (12:29)
[2022-03-09] MEDS: Ipratropium/Albuterol Sulfate 3 ML AMPUL.NEB INHALATION ×2 (13:51→20:06)
--- NOTE | 2022-03-09 14:39 | PCM.PN.HOSP ---
Subjective Subjective Feels a bit better today however she needed 6 L nasal cannula just to get to 90% on ambulatory pulse ox. Objective Data Objective Data Vital Signs: Vital Signs Temp Pulse Resp BP Pulse Ox 98.1 F 86 18 157/70 H 89 03/09/22 09:36 03/09/22 13:52 03/09/22 13:52 03/09/22 09:36 03/09/22 14:21 Oxygen Flow Rate (L/min) [ 90 AMBULATING with Oxygen #2] Oxygen Flow Rate (L/min) [ 88 AMBULATING with Oxygen #1] Oxygen Flow Rate (L/min) 2 Oxygen Delivery Method Nasal Cannula Weight: 172 lb 9.951 oz Body Mass Index (BMI) 29.6 Intake & Output: Intake and Output for Last 24 Hours 03/08/22 03/09/22 03/10/22 03:59 03:59 03:59 Intake Total 255 / 255 1070 / 1070 Output Total 300 / 300 Balance 255 / 255 770 / 770 Lab / Micro Data Result Diagrams: 03/08/22 02:45 03/09/22 05:46 Labs: Laboratory Results - last 24 hr 03/09/22 05:46: Sodium 134 L, Potassium 4.6, Chloride 97 L, Carbon Dioxide 26.0, Anion Gap 11, BUN 62 H, Creatinine 6.46 H, Estim Creat Clear Calc 7.60, Est GFR (MDRD) Af Amer 8 L, Est GFR (MDRD) Non-Af 7 L, BUN/Creatinine Ratio 9.6 L, Glucose 106, Calcium 9.0 Micro: Microbiology 03/08/22 02:40 Urine, Clean Catch Legionella Antigen - Final 03/08/22 02:40 Urine, Clean Catch Streptococcus pneumoniae Antigen (M - Final Streptococcus pneumonia Ag 03/08/22 01:25 Sputum, Expectorated/Coughed Gram Stain - Final 03/08/22 01:25 Sputum, Expectorated/Coughed Respiratory Culture - Preliminary Staphylococcus aureus 03/08/22 02:40 Mucosa - Nasopharyngeal Respiratory Panel (PCR) - Final 03/07/22 19:40 Nasal Secretion SARS-CoV-2 Antigen (Rapid) - Final Rhythm Strip Rhythm Strip: Sinus Rhythm Rate: 68 Ectopy: None Physical Exam Narrative Const alert, oriented x3 and no apparent distress General Appearance: cooperative HEENT normocephalic and moist oral mucous membranes Eyes PERRL, EOMs intact bilaterally and conjunctivae normal Neck supple and no JVD Resp normal respiratory effort, no retractions and no use of accessory muscles Auscultation: wheezes; Negative for crackles, rales or rhonchi Cardio regular rate, regular rhythm, S1 normal heart sound, S2 normal heart sound and no murmurs GI soft to palpation, non-tender and non-distended; Negative for hepatosplenomegaly Extremity no clubbing, cyanosis or edema Skin no rashes or lesions noted Neuro no focal motor deficits and no sensory deficits noted Psych affect normal Appearance: appropriate Assessment & Plan Assessment/Plan (1) Acute and chronic respiratory failure with hypoxia: (2) Bronchitis: (3) Chronic kidney disease, stage V requiring chronic dialysis: PLAN: Plan 1. Acute hypoxic respiratory failure secondary to acute bronchitis ? CT scan demonstrated tree-in-bud findings either viral or bacterial in origin ? Viral respiratory panel was negative however urine antigen shows strep and sputum culture with gram-positive cocci, will switch to Levaquin as she is allergic to penicillins as well as Rocephin ? Wean oxygen as tolerated ? We will do a short burst of prednisone ? Ambulatory pulse ox today showed 60 to requirement for 90% 2. HTN/HLD ? Blood pressures are stable asked?tinea with her home blood pressure medications ? Continue with her home Lipitor 3. End-stage renal disease ? Continue with her hemodialysis ? Consult nephrology for assistance ? Continue with iron supplementation DVT: Ambulation Charges/Coding Visit Charges Inpatient E&M: 24932 Subs Hosp L2
--- NOTE | 2022-03-09 15:36 | PCM.PN.REN ---
Subjective Subjective No new complaints Objective Data Objective Data Vital Signs: Vital Signs Temp Pulse Resp BP Pulse Ox 98.1 F 86 18 157/70 H 89 03/09/22 09:36 03/09/22 13:52 03/09/22 13:52 03/09/22 09:36 03/09/22 14:21 Oxygen Flow Rate (L/min) [ 90 AMBULATING with Oxygen #2] Oxygen Flow Rate (L/min) [ 88 AMBULATING with Oxygen #1] Oxygen Flow Rate (L/min) 2 Oxygen Delivery Method Nasal Cannula Weight: 78.3 kg Body Mass Index (BMI) 29.6 Intake & Output: Intake and Output for Last 24 Hours 03/07/22 03/08/22 03/09/22 23:59 23:59 23:59 Intake Total 1125 / 1325 200 / 200 Output Total 200 / 300 100 / 100 Balance 925 / 1025 100 / 100 Lab / Micro Data Result Diagrams: 03/08/22 02:45 03/09/22 05:46 Labs: Laboratory Results - last 24 hr 03/09/22 05:46: Sodium 134 L, Potassium 4.6, Chloride 97 L, Carbon Dioxide 26.0, Anion Gap 11, BUN 62 H, Creatinine 6.46 H, Estim Creat Clear Calc 7.60, Est GFR (MDRD) Af Amer 8 L, Est GFR (MDRD) Non-Af 7 L, BUN/Creatinine Ratio 9.6 L, Glucose 106, Calcium 9.0 Micro: Microbiology 03/08/22 02:40 Urine, Clean Catch Legionella Antigen - Final 03/08/22 02:40 Urine, Clean Catch Streptococcus pneumoniae Antigen (M - Final Streptococcus pneumonia Ag 03/08/22 01:25 Sputum, Expectorated/Coughed Gram Stain - Final 03/08/22 01:25 Sputum, Expectorated/Coughed Respiratory Culture - Preliminary Staphylococcus aureus 03/08/22 02:40 Mucosa - Nasopharyngeal Respiratory Panel (PCR) - Final 03/07/22 19:40 Nasal Secretion SARS-CoV-2 Antigen (Rapid) - Final Rhythm Strip Rhythm Strip: Sinus Rhythm Rate: 68 Ectopy: None Physical Exam Narrative Alert awake oriented x 3 no obvious distress no pallor no icterus no JVD s1s2 no murmurs lungs clear abdomen soft no organomegaly no edema no cyanosis Assessment & Plan Assessment/Plan (1) ESRD (end stage renal disease) on dialysis: PLAN: Dialysis today. Seen on dialysis. Discharge today after dialysis. Next dialysis will be Friday as outpatient. Breathing is back to baseline as per her. (2) Acute respiratory failure with hypoxia:
[2022-03-09] MEDS: Acetaminophen 325 MG Tablet 650 MG PO (17:07)
--- NOTE | 2022-03-09 18:10 | DIALYSIS ---
Hemodialysis completed, 2hours and 15 min, Fluid removed was 2000 ml. Patient tolerated well. Post BP 135/71, 86,19,98.4. Next HD on Friday03/12/22 see scanned flow sheet for details.
[2022-03-09] MEDS: 0.9% Saline Lock 10 ML Syringe IV (22:39)
[2022-03-10 05:13] VITALS: BP 141/52; PULSE 77; RESP 20; TEMP 36.9; O2SAT 97
[2022-03-10 05:19] VITALS: BP 141/52; PULSE 77
[2022-03-10] MEDS: hydrALAZINE 25 MG Tablet PO (05:19)
[2022-03-10] MEDS: Acetaminophen 325 MG Tablet 650 MG PO ×2 (05:19→11:18)
[2022-03-10 05:57] VITALS: O2SAT 100
[2022-03-10 06:33] LABS: Anion Gap 10 (5-15); BUN 50 mg/dL (7-18); BUN/Creat Ratio 9.2 RATIO (10-20); Calcium,Total 8.7 mg/dL (8.5-10.1); Chloride 98 mmol/L (98-107); Creatinine, Serum 5.44 mg/dL (0.55-1.02); EST Glomerular Filtration Rate 8 mL/min (>60); Est Glom Filt Rate - Afr Amer 10 mL/min (>60); Estimated Creatinine Clearance 9.02 ml/min; Glucose 91 mg/dL (74-106); Potassium 4.5 mmol/L (3.5-5.1); Sodium Level 135 mmol/L (136-145)
[2022-03-10] MEDS: Carvedilol 12.5 MG Tablet PO (08:09)
[2022-03-10] MEDS: predniSONE 20 MG Tablet 40 MG PO (08:10)
[2022-03-10] MEDS: Pantoprazole Sodium 40 MG Tablet PO (08:10)
[2022-03-10] MEDS: amLODIPine 5 MG Tablet PO (08:10)
[2022-03-10] MEDS: Calcium Acetate 667 MG Capsule 1334 MG PO ×2 (08:10→11:18)
[2022-03-10] MEDS: Sodium Bicarbonate 650 MG Tablet PO (08:10)
[2022-03-10] MEDS: guaiFENesin 1,200 MG Tablet 1200 MG PO (08:10)
[2022-03-10 10:18] VITALS: BP 129/51; PULSE 81; RESP 18; TEMP 36.8; O2SAT 96
[2022-03-10 10:21] VITALS: O2SAT 88; O2SAT 90; O2SAT 92
[2022-03-10] MEDS: Ferrous Sulfate 325 MG Tablet PO (11:18)
--- NOTE | 2022-03-10 11:32 | DCINST_ITS ---
Discharge Instructions Diet Discharge Diet: Renal Diet Activity Discharge Activity: Return to Normal Activity Dressing / Incision Call your doctor if you observe: Fever of 101 or Higher, Shortness of breath, Dizziness, Fainting spells, Swelling in the ankles, Chest pain and Increased palpitations (irregular heartbeat) Follow Up Care Test Results: Test results from this visit will be discussed in further detail at your follow- up appointment, if applicable. Discharge Plan Admission Admit Date/Time: 03/07/22 23:00 Attending Provider: Billy Melendez Primary Care Provider: Prince Cummins Consulting Providers: Africa Gaytan ; Tommy Soto Discharge Orders/Prescriptions Prescriptions: New prednisone 20 mg Tablet 40 mg PO BREAKFAST 2 Days Qty: 4 0RF levofloxacin 500 mg tablet 500 mg PO Q48H Qty: 3 0RF Continued carvedilol [Coreg] 12.5 mg tablet 12.5 mg PO BID Rx Instructions: must administer with a meal/food hydralazine 25 mg Tablet 25 mg PO TID Qty: 0 0RF sodium bicarbonate 650 mg Tablet 650 mg PO 4X/DAY Qty: 1 0RF calcium acetate(phosphat bind) 667 mg capsule 2 cap PO TID Label Comments: TAKE 2 CAPSULES BY MOUTH THREE TIMES DAILY WITH MEALS amlodipine 5 mg Tablet 5 mg PO DAILY acetaminophen [Tylenol] 325 mg Capsule 650 mg PO Q4H PRN (Reason: Pain) ascorbic acid (vitamin C) 500 mg capsule 500 mg PO DAILY Qty: 90 1RF atorvastatin 40 mg tablet 40 mg PO QHS Qty: 30 0RF ferrous sulfate [FeroSul] 325 mg (65 mg iron) tablet 325 mg PO DAILY Qty: 90 3RF multivitamin Tablet 1 tab PO DAILY Qty: 90 2RF pantoprazole 40 mg tablet,delayed release (DR/EC) 40 mg PO DAILY Qty: 30 0RF Referrals / Follow Up: Prince Cummins, [Primary Care Provider] - Disposition Disposition (needs filled in before D/C Order can be placed): Home, Self Care
--- NOTE | 2022-03-10 11:41 | DS.PCM_ITS ---
Providers Date of Admission: 03/07/22 Primary Care Physician: Dr. Prince Cummins, DO Consultations 03/08/22 01:38 Consult: Nephrology Routine Consulting Provider: Africa Gaytan Reason for Consult: ESRD EMERGENT Consult: No MD Notified: Yes Date Notified: 03/08/22 Time Notified: 01:39 Method of Notification: Verbal Reason For Visit: BRONCHITIS Diagnosis Discharge Diagnosis (1) ESRD (end stage renal disease) on dialysis: Status: Acute Code(s): N18.6 - End stage renal disease; Z99.2 - Dependence on renal dialysis (2) Acute respiratory failure with hypoxia: Status: Acute Code(s): J96.01 - Acute respiratory failure with hypoxia Plan 1. Acute hypoxic respiratory failure secondary to acute bronchitis ? CT scan demonstrated tree-in-bud findings either viral or bacterial in origin ? Viral respiratory panel was negative however urine antigen shows strep and sputum culture with gram-positive cocci, will switch to Levaquin as she is allergic to penicillins as well as Rocephin ? Wean oxygen as tolerated ? We will do a short burst of prednisone ? Ambulatory pulse ox today showed 60 to requirement for 90% 2. HTN/HLD ? Blood pressures are stable asked?tinea with her home blood pressure medications ? Continue with her home Lipitor 3. End-stage renal disease ? Continue with her hemodialysis ? Consult nephrology for assistance ? Continue with iron supplementation DVT: Ambulation Medications at Discharge Home Medications carvedilol 12.5 mg tablet (Coreg) 12.5 mg PO BID 11/28/20 hydralazine 25 mg tablet 25 mg PO TID #0 tabs 09/06/21 sodium bicarbonate 650 mg tablet 650 mg PO 4X/DAY #1 TAB 09/06/21 ascorbic acid (vitamin C) 500 mg capsule 500 mg PO DAILY #90 caps 11/28/21 atorvastatin 40 mg tablet 40 mg PO QHS #30 tabs 11/28/21 ferrous sulfate 325 mg (65 mg iron) tablet (FeroSul) 325 mg PO DAILY #90 tabs 11/28/21 multivitamin 1 tab PO DAILY #90 tabs 11/28/21 pantoprazole 40 mg tablet,delayed release 40 mg PO DAILY #30 tabs 11/28/21 calcium acetate(phosphat bind) 667 mg capsule 2 cap PO TID 03/07/22 acetaminophen 325 mg capsule (Tylenol) 650 mg PO Q4H PRN Pain 03/08/22 amlodipine 5 mg tablet 5 mg PO DAILY BP 03/08/22 levofloxacin 500 mg tablet 500 mg PO Q48H #3 tabs 03/10/22 prednisone 20 mg tablet 40 mg PO BREAKFAST 2 days #4 tabs 03/10/22 Hospital Course Operations None Procedures Dialysis Summary of Care Provided Minutes Spent on Discharge: 42 Hospital Course: Per HPI: NATALI KINSEY, is a 66 F who presents with shortness of breath.? Patient was feeling well and then today started feeling short of breath.? Patient was actually at dialysis today when she started experiencing.? She s tates that she did complete her dialysis session.? She is coughing up green phlegm and does have a sore throat but no rhinitis.? She presented emergency room and had an elevated D-dimer and underwent a CT angiogram of her chest that showed no pulmonary embolus but tree-in-bud in her lungs.? Patient received prednisone as well as bronchodilators and was placed on oxygen as she was hypoxic on room air.? Given the hypoxia the hospital service was contacted for admission. Hospital Course: 1.? Acute hypoxic respiratory failure secondary to acute bronchitis ? CT scan demonstrated tree-in-bud findings either viral or bacterial in origin ? Viral respiratory panel was negative however urine antigen shows strep and sputum culture with gram-positive cocci, will switch to Levaquin as she is allergic to penicillins as well as Rocephin ? Wean oxygen as tolerated ? We will do a short burst of prednisone ? Needed 3 L with ambulation today for her oxygen ? Discussed with her the plan for discharge today she expressed understanding of the risk benefits of going home and would like to go home today. She will have another 3 days of Levaquin 500 mg p.o. every 48 hours, and she will need to take this after dialysis on her dialysis days. Also continue 2 more days of Levaquin and then recommend that she follow-up with her PCP in 3 to 5 days as an outpatient. 2.? HTN/HLD ? Blood pressures are stable asked ? Continue with her home blood pressure medications ? Continue with her home Lipitor 3.? End-stage renal disease ? Continue with her hemodialysis ? Consult nephrology for assistance ? Continue with iron supplementation Physical Exam Narrative Const alert, oriented x3 and no apparent distress General Appearance: cooperative HEENT normocephalic and moist oral mucous membranes Eyes PERRL, EOMs intact bilaterally and conjunctivae normal Neck supple and no JVD Resp normal respiratory effort, no retractions and no use of accessory muscles Auscultation: Slight wheezes; Negative for crackles, rales or rhonchi Cardio regular rate, regular rhythm, S1 normal heart sound, S2 normal heart sound and no murmurs GI soft to palpation, non-tender and non-distended; Negative for hepatosplenomegaly Extremity no clubbing, cyanosis or edema Skin no rashes or lesions noted Neuro no focal motor deficits and no sensory deficits noted Psych affect normal Appearance: appropriate Weight / BMI Weight Weight: 172 lb 9.951 oz Body Mass Index (BMI) 29.6 ABG / Lab / Microbiology Data Result Diagrams: 03/08/22 02:45 03/10/22 04:55 Laboratory: Laboratory Results - last 24 hr 03/10/22 04:55: Sodium 135 L, Potassium 4.5, Chloride 98, Carbon Dioxide 27.0, Anion Gap 10, BUN 50 H, Creatinine 5.44 H, Estim Creat Clear Calc 9.02, Est GFR (MDRD) Af Amer 10 L, Est GFR (MDRD) Non-Af 8 L, BUN/Creatinine Ratio 9.2 L, Glu cose 91, Calcium 8.7 Microbiology: Microbiology 03/08/22 01:25 Sputum, Expectorated/Coughed Gram Stain - Final 03/08/22 01:25 Sputum, Expectorated/Coughed Respiratory Culture - Preliminary Staphylococcus aureus 03/08/22 02:40 Urine, Clean Catch Legionella Antigen - Final 03/08/22 02:40 Urine, Clean Catch Streptococcus pneumoniae Antigen (M - Final Streptococcus pneumonia Ag 03/08/22 02:40 Mucosa - Nasopharyngeal Respiratory Panel (PCR) - Final 03/07/22 19:40 Nasal Secretion SARS-CoV-2 Antigen (Rapid) - Final D/C Instructions Discharge Diet: Renal Diet Call your doctor if you observe: Fever of 101 or Higher, Shortness of breath, Dizziness, Fainting spells, Swelling in the ankles, Chest pain and Increased palpitations (irregular heartbeat) Meaningful Use Info Meaningful Use Diagnoses (Choose all that apply): None applicable Discharge Plan Admission Admit Date/Time: 03/07/22 23:00 Attending Provider: Billy Melendez Primary Care Provider: Prince Cummins Consulting Providers: Africa Gaytan ; Tommy Soto Discharge Orders/Prescriptions Prescriptions: New prednisone 20 mg Tablet 40 mg PO BREAKFAST 2 Days Qty: 4 0RF levofloxacin 500 mg tablet 500 mg PO Q48H Qty: 3 0RF Continued carvedilol [Coreg] 12.5 mg tablet 12.5 mg PO BID Rx Instructions: must administer with a meal/food hydralazine 25 mg Tablet 25 mg PO TID Qty: 0 0RF sodium bicarbonate 650 mg Tablet 650 mg PO 4X/DAY Qty: 1 0RF calcium acetate(phosphat bind) 667 mg capsule 2 cap PO TID Label Comments: TAKE 2 CAPSULES BY MOUTH THREE TIMES DAILY WITH MEALS amlodipine 5 mg Tablet 5 mg PO DAILY acetaminophen [Tylenol] 325 mg Capsule 650 mg PO Q4H PRN (Reason: Pain) ascorbic acid (vitamin C) 500 mg capsule 500 mg PO DAILY Qty: 90 1RF atorvastatin 40 mg tablet 40 mg PO QHS Qty: 30 0RF ferrous sulfate [FeroSul] 325 mg (65 mg iron) tablet 325 mg PO DAILY Qty: 90 3RF multivitamin Tablet 1 tab PO DAILY Qty: 90 2RF pantoprazole 40 mg tablet,delayed release (DR/EC) 40 mg PO DAILY Qty: 30 0RF Referrals / Follow Up: Prince Cummins DO [Primary Care Provider] - Disposition Disposition (needs filled in before D/C Order can be placed): Home, Self Care Charges/Coding Visit Charges Inpatient E&M: 82598 Disch Hosp
[2022-03-10] MEDS: levoFLOXacin 500 MG Tablet PO (12:09)
[2022-03-10 12:17] VITALS: PULSE 82; RESP 17; O2SAT 94
[2022-03-10] MEDS: Ipratropium/Albuterol Sulfate 3 ML AMPUL.NEB INHALATION (12:17)
== END 2022-03-10 15:08 | disposition home or self-care (01) | DRG 145 ==
LOC: ED 15:39 → MS3 03-08 06:57
PROVIDERS: Emergency Provider Emergency Medicine; PCP Family Medicine; Visit Provider Family Medicine
DX: J20.8 Acute bronchitis due to other specified organisms (principal); J96.21 Acute and chronic respiratory failure with hypoxia; I12.0 Hypertensive chronic kidney disease with stage 5 chronic kidney disease or end stage renal disease; N18.6 End stage renal disease; E87.1 Hypo-osmolality and hyponatremia; D63.1 Anemia in chronic kidney disease; E11.22 Type 2 diabetes mellitus with diabetic chronic kidney disease; Z99.2 Dependence on renal dialysis; M06.9 Rheumatoid arthritis, unspecified; I25.2 Old myocardial infarction; B95.61 Methicillin susceptible Staphylococcus aureus infection as the cause of diseases classified elsewhere; Z79.899 Other long term (current) drug therapy; Z86.73 Personal history of transient ischemic attack (TIA), and cerebral infarction without residual deficits; Z87.891 Personal history of nicotine dependence
CPT/HCPCS: 36415; 71045; 71275; 80048; 84484; 85025; 85379; 87070; 87077; 87186; 87205; 87449; 87633; 87811; 90937; 93005; 94640; 99251; 99285; Q9967; A4216; G0257; G0463; J2405

== ENCOUNTER 2022-04-12 08:50 | Day surgery (SDC) | payer MEDICAID, SELFPAY ==
[2022-04-12] VITALS (11 sets, daily range): BP systolic 107–145; BP diastolic 50–64; PULSE 63–68; RESP 14–18; TEMP 36.2–37.2; O2SAT 97–100; BMI 31.0
--- NOTE | 2022-04-12 09:09 | PCM.HP.BLA ---
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 Chief Complaint: fistula consult Process Controller Required: No Is patient in pain?: No Allergies ceftriaxone Allergy (Severe, Verified 03/19/22 13:55) Rashvancomycin Allergy (Severe, Verified 03/19/22 13:55) RashPenicillins Allergy (Verified 03/19/22 13:55) Swellingoxycodone HCl [From Percocet] Adverse Reaction (Verified 03/19/22 13:55) Itching Medications carvedilol 12.5 mg tablet (Coreg) 12.5 mg PO BID 11/28/20 [History Confirmed 03/19/22] hydralazine 25 mg tablet 25 mg PO TID #0 tabs 09/06/21 [Rx Confirmed 03/19/22] sodium bicarbonate 650 mg tablet 650 mg PO 4X/DAY #1 TAB 09/06/21 [Rx Confirmed 03/19/22] ascorbic acid (vitamin C) 500 mg capsule 500 mg PO DAILY #90 caps 11/28/21 [Rx Confirmed 03/19/22] atorvastatin 40 mg tablet 40 mg PO QHS #30 tabs 11/28/21 [Rx Confirmed 03/19/22] ferrous sulfate 325 mg (65 mg iron) tablet (FeroSul) 325 mg PO DAILY #90 tabs 11/28/21 [Rx Confirmed 03/19/22] multivitamin 1 tab PO DAILY #90 tabs 11/28/21 [Rx Confirmed 03/19/22] pantoprazole 40 mg tablet,delayed release 40 mg PO DAILY #30 tabs 11/28/21 [Rx Confirmed 03/19/22] calcium acetate(phosphat bind) 667 mg capsule 2 cap PO TID 03/07/22 [History Confirmed 03/19/22] acetaminophen 325 mg capsule (Tylenol) 650 mg PO Q4H PRN Pain 03/08/22 [History Confirmed 03/19/22] amlodipine 5 mg tablet 5 mg PO DAILY BP 03/08/22 [History Confirmed 03/19/22] Is last menstrual period known: No Post menopausal: Yes Patient : No PFSH Medical History?(Updated 03/19/22 @ 15:[address] Les Mayer MD) Acute and chronic respiratory failure with hypoxia Anemia Asthma Cardiac dysrhythmia, unspecified Chest pain Chronic kidney disease, stage V requiring chronic dialysis Diabetes ESRD (end stage renal disease) on dialysis HTN (hypertension) Hypertension Hyponatremia NSTEMI, initial episode of care Rheumatoid arthritis SOB (shortness of breath) Stroke Type II diabetes mellitus Surgical History? H/O: hysterectomy History of eye surgery knee scope Family History? Mother?? Hypertension Emphysema/COPDSister Hypertension Social History? Smoking Status:? Former smoker alcohol intake:? current details:? 1 per week substance use type:? does not use what type of physical activity do you participate in:? none HPI HPI HPI: NATALI KINSEY, is a 66 F who presents to the office today for surgical consultation regarding creation of arteriovenous hemodialysis fistula.? Although she has previously failed to make office appointments she did present on this occasion. NATALI KINSEY, is a 66 F who presents to the office today for Surgical consultation regarding permanent arteriovenous hemodialysis access.? The patient is referred by [facility] Snehal Murry RN and a written copy of my surgical consult recommendations will return to her.? It is of additional note that on July 16, 2020 when she had carotid duplex imaging which demonstrated less than 50% stenosis of bilateral internal carotid arteries although she did have greater than 50% stenosis of the left external carotid artery.? On September 04, 2021 Dr. Almaraz placed hemodialysis catheters.? That time the patient had stage V chronic renal failure and non-ST elevation CA and acute kidney failure and acute posthemorrhagic anemia and pneumococcal pneumonia Patient states that she is right arm dominant.? She is not well versed with her medical care. December 24, 2021 Reason For Study: Pre op testing Right Arm? Left Arm Right cephalic vein is compressible.? Left cephalic vein is compressible. Right Cephalic Vein at the shoulder? Left Cephalic Vein at the shoulder measures .17 x .16 cm.? measures .34 x .32 cm. Right Cephalic Vein mid bicep measures .18? Left Cephalic Vein at mid bicep measures .12 x .2 cm.? x .15 cm. Right Cephalic Vein above antecub? Left Cephalic Vein above antecub measures .12 measures .19 x .21 cm.? x .13 cm. Right Cephalic Vein below antecub? Left Cephalic Vein below antecub measures .13 measures .32 x .32 cm.?x .16 cm. Right Cephalic Vein in the forearm? Left Cephalic Vein in the forearm measures .22 x .24 cm.? measures .13 x .14 cm. Right Cephalic Vein at the wrist measures .25? Left Cephalic Vein at the wrist measures .08 x .27 cm.? x .09 cm. Right basilic vein is compressible.? Basilic vein at bicep measures .33 x .33 cm. x .32 cm.? Basilic vein above antecub measures .38 x .38 Right Basilic Vein above antecub measures .38? cm. x .36 cm.? Basilic vein below antecub measures .35 x .37 Right Basilic Vein below antecub measures .3?cm. x .3 cm.? Basilic vein in the forearm measures .26 Right Basilic Vein in the forearm? x .28 cm. measures .34 x .35 cm.? Basilic vein at the wrist measures .26 x .25 Right Basilic Vein at the wrist measures .28? cm. x .33 cm.? Brachial art .41 x .39 cm. Brachial art .33 x .33 cm.? Brachial art 103.7 cm/s. Brachial art 118.5 cm/s.? Radial art .16 x .15 cm. Radial art .16 x .19 cm.? Radial art 53.7 cm/s. Radial art 67.3 cm/s.? Calcification of the radial artery noted. Calcification of the radial artery noted. VL/Saphenous Vein Mapping, Bilat Interpretation Summary Patent and compressible bilateral upper extremity cephalic and basilic veins with dimensions as noted Calcification and diminutive size of bilateral radial arteries Adequate diameter and flow bilateral brachial arteries ? ? ? Ordering Physician: Les Mayer Performed By: Scooter Pulliam RVMarck General General: Yes fatigue; No weight change, appetite, colon cancer, breast cancer or weakness HEENT HEENT: No difficulty swallowing, eye injury, eye surgery, swollen glands or hoarseness Endo Endocrine: Yes diabetes mellitus; No thyroid disease, thyroid cancer, Hair loss, heat intolerance or cold intolerance Musc Musculoskeletal: Yes arthritis; No back problems, rheumatoid arthritis, gout or joint pain Cardio Cardiovascular: Yes high blood pressure; No murmur, pacemaker, heart disease, atrial fibrillation, heart attack, heart stent, palpitations, shortness of breat with exertion or chest pain Psych Psychiatric: No depression, anxiety or hearing voices Resp Respiratory: No shortness of breath, No sleep apnea, No cough, No COPD, No asthma, No emphysema and No wheezing Gastro Gastrointestinal: No abdominal pain, No nausea or vomiting, No diarrhea, No constipation, No blood in stool, No acid reflux, No hemorrhoids, No ulcers, No gallbladder problem and No black,tarry stools Royce Hematologic: No blood thinners, No blood disorders, No bleeding, No anemia and No blood clots Neuro Neurologic: No weakness Exam Const General: cooperative, comfortable and no acute distress Nutritional Appearance: average body habitus Orientation: alert, awake and oriented x3 HENMT Head: normal to inspection Eyes General: appearance normal, both eyes and all related structures Neck Neck: normal visual inspection Chest Other: Right IJ tunneled dialysis catheters in place Resp Effort & Inspection: normal respiratory effort Auscultation: clear to auscultation bilaterally Cardio Rate: regular rate Rhythm: regular rhythm GI Palpation: soft and no hepatosplenomegaly Skin General: no rashes or lesions noted Extrem General: no calf tenderness Other: Left upper extremity notable for no superficial visualized veins.? Radial pulse 1+.? Brachial pulse 2+.? Ultrasound suggest that the upper arm cephalic vein on the left is quite diminutive the upper arm basilic vein on the left is borderline Psych Appearance: grossly normal Assessment and Plan Assessment and Plan (1) ESRD (end stage renal disease) on dialysis: ?Status:?Acute ?Plan: Unfortunately patient has diminutive venous structures.? Cephalic vein appears diminutive throughout.? Basilic vein of the left upper arm is borderline.? The patient is right arm dominant.? I propose for her stage I left upper extremity basilic to brachial arteriovenous hemodialysis fistula creation.? She is aware that there are absolutely no guarantees of success.? She is additionally aware that if the fistula starts to mature it will require secondary procedure in order to transpose it.? She is currently being dialyzed apparently successfully through a right IJ tunnel dialysis catheters.? She has had an opportunity ask and have questions answered.? She has no additional complaints or concerns at the moment. Copy: Dr. Arely Alonzo and Dr. Dru Mayer M.D., F.A.C.S. I have re-examined the patient. There are no clinical changes since date of exam. Les Mayer M.D., F.A.C.S.
[2022-04-12 09:42] LABS: Hematocrit 37.4 % (37-47); Hemoglobin 11.8 g/dL (12.0-15.0); Mean Corp Hgb Conc 31.6 g/dL (32-36); Mean Corpuscular Hgb 31.4 pg (27.0-32.0); Mean Corpuscular Volume 99.5 fL (81-99); Mean Platelet Vol. 9.3 fl (6.2-12.0); Platelet Count 241 K/mm3 (150-450); RBC Distribution Width CV 16.3 % (11.6-14.6); RBC Distribution Width SD 55.8 fl (35.1-43.9); Red Blood Count 3.76 M/mm3 (4.2-5.4); White Blood Count 4.8 K/mm3 (4.4-11.0)
[2022-04-12 09:57] LABS: Anion Gap 5 (5-15); BUN 23 mg/dL (7-18); BUN/Creat Ratio 4.6 RATIO (10-20); Calcium,Total 9.9 mg/dL (8.5-10.1); Chloride 102 mmol/L (98-107); Creatinine, Serum 5.02 mg/dL (0.55-1.02); EST Glomerular Filtration Rate 9 mL/min (>60); Est Glom Filt Rate - Afr Amer 11 mL/min (>60); Estimated Creatinine Clearance 8.95 ml/min; Glucose 124 mg/dL (74-106); Potassium 4.6 mmol/L (3.5-5.1); Sodium Level 137 mmol/L (136-145)
[2022-04-12 11:21] LABS: Bedside Glucose 112 mg/dL (74-106)
[2022-04-12] MEDS: Lidocaine 1% (20 ml mdv) 20 ML Vial (11:30)
[2022-04-12] MEDS: Bupivacaine 0.25% 30 ML Vial (11:30)
[2022-04-12] MEDS: Heparin Injection (Vial) 5,000 UNIT/ML VIAL 5000 UNIT (11:30)
--- NOTE | 2022-04-12 12:29 | PCM.OPRPT ---
Report of Operation Date of Procedure: 04/12/22 Pre-Operative Diagnosis: Stage IV chronic renal insufficiency Post-Operative Diagnosis: Same Surgery/Procedure Performed:: Stage I left upper extremity basilic vein to brachial artery arteriovenous hemodialysis fistula creation Description of Surgical Findings:: Timeout informed consent was obtained. 66-year-old female was taken to the operating placed on the table underwent monitored anesthesia care. The left upper extremity sterilely prepped and draped. 1% lidocaine mixed 50-50 with 0.25% Marcaine was used as local anesthetic. A total of 21 cc was used. Ultrasound had been used to map the course of the basilic vein. Local was instilled and a transverse incision was made just proximal to the antecubital space sharp blunt dissection was used to dissect free the basilic vein then the brachial artery was identified and circumferential control was obtained the patient received 7000's of heparin intravenously. Peripheral vascular clamps were placed on the brachial artery and 11 blade was used to make an arteriotomy which was extended with Marinelli scissors. The artery was noted to be diseased with atherosclerotic calcific plaque. However a patent lumen was identified. The vein was ligated distally with a Hemoclip and then it was spatulated and a end-to-side anastomosis was created with a running 7-0 Prolene. Prior to completion there is adequate antegrade retrograde flow. The anastomosis was completed a single repair suture of 7-0 Prolene required there was good flow noted. The hand was noted to be viable and had pink coloration to the fingers and Doppler signals at both the radial and ulnar sites. The fistula itself had a good positional lie and appeared to have good initial flow. The wound was closed with a deep layer of interrupted 3-0 Vicryl and then a running subicular 4 Monocryl. Steri-Strips Telfa tape dressings applied. Sponge and instrument and needle counts were reported to the surgeon to be correct. Specimens none. Drains none. Blood loss minimal. Les Mayer M.D., F.A.C.S. Surgeon: Les Mayer Type of Anesthesia: Local MAC Anesthesiologist: Ludy Petit
--- NOTE | 2022-04-12 12:34 | DCINST_ITS ---
Discharge Instructions Procedure Fistula Diet Discharge Diet: Renal Diet Activity Discharge Activity: May Not Drive (for 2-3 days or while taking narcotic pain medications.), May Shower and May Take a Tub Bath (in 5 days.) Lifting Restrictions: 5 pounds Keep extremity elevated above heart level: - (Keep arm elevated above the heart level for 3 days.) Dressing / Incision Call your doctor if your incision/area has: Continuous Slow Oozing, Sudden Increased Bleeding (apply pressure and call your doctor.), Increased Pain/ Swelling, Increased Redness and Foul Smelling Discharge Call your doctor if you observe: Fever of 101 or Higher Suture Line Care: Avoid Pulling/Pushing and Avoid Pinching/Bending Cleanse incision/area with: Keep Dressing Clean & Dry Additional Dressing/Incision Instructions:: Change or remove dressing in one day. May protect with a gauze bandaid. Follow Up Care Please Follow Up With: Les Mayer MD When: Call [phone] to make an appointment for suture removal and follow up in 1 week. Test Results: Test results from this visit will be discussed in further detail at your follow- up appointment, if applicable. Discharge Plan Admission Attending Provider: Les Mayer Primary Care Provider: Prince Cummins Discharge Orders/Prescriptions Prescriptions: No Action carvedilol [Coreg] 12.5 mg tablet 12.5 mg PO BID Rx Instructions: must administer with a meal/food hydralazine 25 mg Tablet 25 mg PO TID Qty: 0 0RF sodium bicarbonate 650 mg Tablet 650 mg PO 4X/DAY Qty: 1 0RF calcium acetate(phosphat bind) 667 mg capsule 2 cap PO TID Label Comments: TAKE 2 CAPSULES BY MOUTH THREE TIMES DAILY WITH MEALS amlodipine 5 mg Tablet 5 mg PO DAILY acetaminophen [Tylenol] 325 mg Capsule 650 mg PO Q4H PRN (Reason: Pain) ascorbic acid (vitamin C) 500 mg capsule 500 mg PO DAILY Qty: 90 1RF atorvastatin 40 mg tablet 40 mg PO QHS Qty: 30 0RF ferrous sulfate [FeroSul] 325 mg (65 mg iron) tablet 325 mg PO DAILY Qty: 90 3RF multivitamin Tablet 1 tab PO DAILY Qty: 90 2RF pantoprazole 40 mg tablet,delayed release (DR/EC) 40 mg PO DAILY Qty: 30 0RF Referrals / Follow Up: Prince Cummins DO [Primary Care Provider] - Disposition Disposition (needs filled in before D/C Order can be placed): Home, Self Care
== END 2022-04-12 14:13 | disposition home or self-care (01) ==
LOC: SDC 08:51 → AC 08:52
PROVIDERS: PCP Family Medicine; Referring Provider Surgery; Visit Provider Surgery
PROC: (CPT 36821; principal; 2022-04-12 10:45)
DX: Z45.2 Encounter for adjustment and management of vascular access device (principal); Z99.2 Dependence on renal dialysis; M06.9 Rheumatoid arthritis, unspecified; E11.22 Type 2 diabetes mellitus with diabetic chronic kidney disease; N18.6 End stage renal disease; I12.0 Hypertensive chronic kidney disease with stage 5 chronic kidney disease or end stage renal disease; I25.2 Old myocardial infarction; D63.1 Anemia in chronic kidney disease; E78.00 Pure hypercholesterolemia, unspecified; Z99.81 Dependence on supplemental oxygen; Z79.899 Other long term (current) drug therapy; Z86.73 Personal history of transient ischemic attack (TIA), and cerebral infarction without residual deficits; Z87.891 Personal history of nicotine dependence
CPT/HCPCS: 36821; 01844; 80048; 82962; 85027; J7040; J2405

== ENCOUNTER 2022-04-30 19:53 | Emergency (ER) | payer MEDICAID, SELFPAY ==
[2022-04-30 19:54] VITALS: BP 145/103; PULSE 88; RESP 16; TEMP 36.4; O2SAT 94; BMI 32.1
[2022-04-30] MEDS: Acetaminophen 500 MG Tablet 1000 MG PO (20:38)
--- NOTE | 2022-04-30 20:42 | EDS_ITS ---
HPI History of Present Illness Chief Complaint: Numb/Ting Detail of Chief Complaint: Left hand pain Informant: patient Onset/Context/Timing Onset: Weeks Current Severity: Moderate Maximum Severity: Moderate Narrative Narrative: Patient presents secondary to left hand pain. On April 12 she had stage I of basilic to brachial vein fistula created with Dr. Mayer. She states immediately after the procedure she developed left hand pain with some tingling. She followed up in the office on the and told him about this. In reading his note he recommended she wear a cotton glove or something to keep her hand warm which would help with blood flow. She states she tried this the last 2 days but it did not help. She is complaining of pain today at dialysis so they sent her to the emergency room. Patient has not had Tylenol since dialysis this morning. She states that because of pain she is now having trouble moving her fingers and making a fist. [facility] Medical History Acute and chronic respiratory failure with hypoxia Ambulates with cane Anemia Asthma Cardiac dysrhythmia, unspecified Chest pain Chronic kidney disease, stage V requiring chronic dialysis Diabetes Easy bruising Edentulous ESRD (end stage renal disease) on dialysis Former smoker Gastric reflux High cholesterol HTN (hypertension) Hyponatremia Leg cramps NSTEMI, initial episode of care On home oxygen therapy PONV (postoperative nausea and vomiting) Post-menopausal Rheumatoid arthritis Shortness of breath on exertion SOB (shortness of breath) Stroke Type II diabetes mellitus Wears glasses Home Medications carvedilol 12.5 mg tablet (Coreg) 12.5 mg PO BID 11/28/20 [History Last Taken 04/12/22] hydralazine 25 mg tablet 25 mg PO TID #0 tabs 09/06/21 [Rx Last Taken 04/12/22] sodium bicarbonate 650 mg tablet 650 mg PO 4X/DAY #1 TAB 09/06/21 [Rx Last Taken 03/07/22] ascorbic acid (vitamin C) 500 mg capsule 500 mg PO DAILY #90 caps 11/28/21 [Rx Last Taken 03/07/22] atorvastatin 40 mg tablet 40 mg PO QHS #30 tabs 11/28/21 [Rx Last Taken 03/07/22] ferrous sulfate 325 mg (65 mg iron) tablet (FeroSul) 325 mg PO DAILY #90 tabs 11/28/21 [Rx Last Taken 03/07/22] multivitamin 1 tab PO DAILY #90 tabs 11/28/21 [Rx Last Taken 03/07/22] pantoprazole 40 mg tablet,delayed release 40 mg PO DAILY #30 tabs 11/28/21 [Rx Last Taken 04/12/22] calcium acetate(phosphat bind) 667 mg capsule 2 cap PO TID 03/07/22 [History Last Taken 03/07/22] acetaminophen 325 mg capsule (Tylenol) 650 mg PO Q4H PRN Pain 03/08/22 [History Last Taken 03/06/22] amlodipine 5 mg tablet 5 mg PO DAILY BP 03/08/22 [History Last Taken 04/12/22] Allergy/AdvReac Type Severity Reaction Status Date / Time ceftriaxone Allergy Severe Rash Verified 04/30/22 19:56 vancomycin Allergy Severe Rash Verified 04/30/22 19:56 Penicillins Allergy Swelling Verified 04/30/22 19:56 oxycodone HCl [From Percocet] AdvReac Itching Verified 04/30/22 19:56 Family History Mother Hypertension Emphysema/COPD Sister Hypertension Surgical History H/O: hysterectomy History of eye surgery History of surgery knee scope Social History Smoking Status: Former smoker alcohol intake: current details: 1 per week substance use type: does not use what type of physical activity do you participate in: none ROS ROS ED Constitutional Constitutional ED: Denies chills or fever(s) Eyes Eyes: Denies change in vision or discharge from eye(s) ENT ENT ED: Denies discharge from eye(s), rhinorrhea or sore throat Cardiovascular Cardiovascular: Denies chest pain or palpitations Respiratory/Chest Respiratory/Chest: Denies cough or dyspnea Gastrointestinal Gastrointestinal: Denies abdominal pain, diarrhea, nausea or vomiting Musculoskeletal Musculoskeletal: Reports extremity pain; Denies back pain Integumentary Denies Abrasions or rash Neurologic Neurologic: Reports paresthesias and weakness; Denies headache(s) Allergic/Immunologic Allergic/Immunologic ED: Denies lip swelling or urticaria EXAM Physical Exam Const Vital Signs: 04/30/22 19:54 Temperature 97.6 F L Temperature Source Temporal Pulse Rate 88 Respiratory Rate 16 Blood Pressure 145/103 H Blood Pressure Mean 117 Pulse Ox 94 Oxygen Delivery Method Room Air Positive well nourished and well developed General Appearance ED: well developed HEENT Reports normocephalic and head/scalp atraumatic Eyes PERRL and EOMs intact bilaterally Neck supple Chest Wall inspection of chest normal and palpation of chest normal Resp normal respiratory effort and clear to auscultation bilaterally Cardio regular rate and regular rhythm GI normal to inspection, nondistended, normoactive bowel sounds Palpation: soft Extremity Extremity Narrative: Surgical site in the left antecubital space is clean with no sign of infection. Palpable thrill noted. Left hand reveals no significant edema. She has decreased range of motion when trying to make a fist that she states is secondary to pain. She has good cap refill distally. Left hand is only slightly cooler in touch to the right hand. She does have good sensation on testing. Neuro oriented x3 Sensorium / Orientation: alert Psych mental status grossly normal Skin no rashes or lesions noted MDM MDM MDM Narrative Medical decision making narrative: Patient was given Tylenol. I was able to review with Dr. Mayer's surgical and postop visit note. I spoke with Dr. Lindsay, on-call for surgery. He did recommend getting good Doppler pulses of both radial and ulnar in the affected arm. Patient has good ulnar Doppler pulses bilaterally. Good radial pulses are dopplerable. On repeat evaluation patient still cannot make a tight fist to do a good Rodrigo test. I am able to passively flex her hand. She does report some improvement in her symptoms after Tylenol and does have improved range of motion when compared to initial eval. I did take 2 Rufino wraps and wrap her hand and forearm area as she had previously been told to wear a glove on that hand. I did encourage her to take Tylenol every 6 hours regularly. Surgical office will call her for follow-up. Discharge Plan Triage Chief Complaint: Numb/Ting ED Provider: Najma Salgado Dx/Rx/DC Orders Clinical Impression: Post-op pain Instructions: ED Post Op Wound Check, Pain Prescriptions: No Action carvedilol [Coreg] 12.5 mg tablet 12.5 mg PO BID Rx Instructions: must administer with a meal/food hydralazine 25 mg Tablet 25 mg PO TID Qty: 0 0RF sodium bicarbonate 650 mg Tablet 650 mg PO 4X/DAY Qty: 1 0RF calcium acetate(phosphat bind) 667 mg capsule 2 cap PO TID Label Comments: TAKE 2 CAPSULES BY MOUTH THREE TIMES DAILY WITH MEALS amlodipine 5 mg Tablet 5 mg PO DAILY acetaminophen [Tylenol] 325 mg Capsule 650 mg PO Q4H PRN (Reason: Pain) ascorbic acid (vitamin C) 500 mg capsule 500 mg PO DAILY Qty: 90 1RF atorvastatin 40 mg tablet 40 mg PO QHS Qty: 30 0RF ferrous sulfate [FeroSul] 325 mg (65 mg iron) tablet 325 mg PO DAILY Qty: 90 3RF multivitamin Tablet 1 tab PO DAILY Qty: 90 2RF pantoprazole 40 mg tablet,delayed release (DR/EC) 40 mg PO DAILY Qty: 30 0RF Primary Care Provider: Prince Cummins Referrals: Prince Cummins DO [Primary Care Provider] - Les Mayer MD [Med Staff - Active Staff] - 1-2 Weeks Disposition Disposition: Home, Self Care
--- NOTE | 2022-04-30 21:26 | ED.RN ---
DOPPLER VASCULAR CHECK, ULNAR AND RADIAL PULSES EQUAL BILATERALLY. WEAK +1 UPON PALPATION
[2022-04-30 22:11] VITALS: BP 138/86; PULSE 82; RESP 16; O2SAT 100
== END 2022-04-30 22:12 | disposition home or self-care (01) ==
PROVIDERS: Emergency Provider Emergency Medicine; PCP Family Medicine; Visit Provider Emergency Medicine
DX: M79.642 Pain in left hand (principal); Z99.2 Dependence on renal dialysis; N18.6 End stage renal disease; I12.0 Hypertensive chronic kidney disease with stage 5 chronic kidney disease or end stage renal disease; G89.18 Other acute postprocedural pain; E78.00 Pure hypercholesterolemia, unspecified; Z99.81 Dependence on supplemental oxygen; Z79.899 Other long term (current) drug therapy; Z86.73 Personal history of transient ischemic attack (TIA), and cerebral infarction without residual deficits; Z87.891 Personal history of nicotine dependence
CPT/HCPCS: 99285

== ENCOUNTER → 2022-05-02 | Outpatient (CLI) | payer MEDICAID, SELFPAY ==
--- NOTE | 2022-05-02 13:08 | AVDS_ITS ---
Reason For Study: Mechanical complication of surgery LEFT Brachial artery, prox, 440/202.7 cm/sec. Brachial artery, prox, 1490 ml/min. Brachial artery, inflow, 425.1/200.7 cm/sec. Brachial artery, inflow, 1092 ml/min. Proximal anastomosis, 761.1/304.3 cm/sec. Proximal anastomosis, 398.8 ml/min. Proximal graft, 334.4/142.9 cm/sec. Proximal graft, 3839 ml/min. Mid graft, 87.2/43.2 cm/sec. Mid graft, 977.7 ml/min. Distal graft, 95/50.9 cm/sec. Distal graft, 1071 ml/min. Axillary vein, outflow, 202.7/81 cm/sec. Axillary vein, outflow, 1886 ml/min. Radial artery, 19.2/5.4 cm/sec Ulnar artery, 25.3 cm/sec. Brachial artery below anastomosis, 357.7/17 cm/sec. Brachial artery below anastomosis, 497.1 ml/min. VL/AV Fistula/Dialysis Graft Scan Interpretation Summary High flow left upper extremity stage I basilic vein to brachial artery arteriov enous hemodialysis fistula. Brachial artery flow rate 1092 mm/min Proximal fistula flow rate 3839 mm/min Radial artery patent though with diminished velocity at 19 cm/s peak systolic f low Ulnar artery patent but with diminished antegrade flow at 25 cm/s Ordering Physician: Heather Guzman Referring Physician: Dru Cummins M.D. Performed By: Hawa Savage RVT
== END | disposition home or self-care (01) ==
LOC: CVS 13:07
PROVIDERS: PCP Family Medicine; Referring Provider Physician Assistant; Visit Provider Physician Assistant
DX: T82.590D Other mechanical complication of surgically created arteriovenous fistula, subsequent encounter (principal); X58.XXXD Exposure to other specified factors, subsequent encounter
CPT/HCPCS: 93990

== ENCOUNTER 2022-05-03 07:53 | Day surgery (SDC) | payer MEDICAID, SELFPAY ==
[2022-05-03] VITALS (8 sets, daily range): BP systolic 143–189; BP diastolic 58–101; PULSE 62–89; RESP 16; TEMP 36.8–37.3; O2SAT 92–99; BMI 33.4
[2022-05-03] MEDS: Lactated Ringers 1,000 ML 15 ML IV (08:05)
--- NOTE | 2022-05-03 08:11 | PCM.HP.BLA ---
History and Physical Date of Admission: 05/03/22 ADDENDUM by? MANFRED Guzman on 05/02/22 at 1921 Intake Chief Complaint: Update H&P Allergies ceftriaxone Allergy (Severe, Verified 05/02/22 12:27) Rashvancomycin Allergy (Severe, Verified 05/02/22 12:27) RashPenicillins Allergy (Verified 05/02/22 12:27) Swellingoxycodone HCl [From Percocet] Adverse Reaction (Verified 05/02/22 12:27) Itching Medications carvedilol 12.5 mg tablet (Coreg) 12.5 mg PO BID 11/28/20 [History Confirmed 05/02/22] hydralazine 25 mg tablet 25 mg PO TID #0 tabs 09/06/21 [Rx Confirmed 05/02/22] sodium bicarbonate 650 mg tablet 650 mg PO 4X/DAY #1 TAB 09/06/21 [Rx Confirmed 05/02/22] ascorbic acid (vitamin C) 500 mg capsule 500 mg PO DAILY #90 caps 11/28/21 [Rx Confirmed 05/02/22] atorvastatin 40 mg tablet 40 mg PO QHS #30 tabs 11/28/21 [Rx Confirmed 05/02/22] ferrous sulfate 325 mg (65 mg iron) tablet (FeroSul) 325 mg PO DAILY #90 tabs 11/28/21 [Rx Confirmed 05/02/22] multivitamin 1 tab PO DAILY #90 tabs 11/28/21 [Rx Confirmed 05/02/22] pantoprazole 40 mg tablet,delayed release 40 mg PO DAILY #30 tabs 11/28/21 [Rx Confirmed 05/02/22] calcium acetate(phosphat bind) 667 mg capsule 2 cap PO TID 03/07/22 [History Confirmed 05/02/22] acetaminophen 325 mg capsule (Tylenol) 650 mg PO Q4H PRN Pain 03/08/22 [History Confirmed 05/02/22] amlodipine 5 mg tablet 5 mg PO DAILY BP 03/08/22 [History Confirmed 05/02/22] Assessment and Plan Assessment and Plan (1) Other mechanical complication of surgically created arteriovenous fistula, subsequent encounter: ?Status:?Acute ?Plan: AV fistula graft scan demonstrated the following: Interpretation Summary High flow left upper extremity stage I basilic vein to brachial artery arteriovenous hemodialysis fistula. Brachial artery flow rate 1092 mm/min Proximal fistula flow rate 3839 mm/min Radial artery patent though with diminished velocity at 19 cm/s peak systolic flow Ulnar artery patent but with diminished antegrade flow at 25 cm/s Results were relayed to the patient. Patient verifies that she will be coming tomorrow to the surgery. She notes she has arranged transportation to arrive at the hospital at 0800. ? ? ? Orders: Orders AV Fistula/Dialysis Graft Scan Today T82.590D - Other mechanical complication of surgically created arteriovenous fistula, subsequent encounter ? 05/02/221920 <Electronically signed by Heather JOHNSON PA-C> Date Heather Guzman PA-C cc:? Dr. Les Mayer MD ~* Signed Intake Vital Signs ? 04/30/2219:54 05/02/2212:26 Height 5 ft 1 in 5 ft 1 in Weight: ? 176 lb 8 oz BMI ? 33.3 BP ? 148/73 H Blood Pressure Location ? Rt brachial Position ? Sitting Respiration ? 17 Pulse ? 76 Pulse Source ? Monitor Temp ? 97.7 F L Temp Source ? Temporal Pulse Oximetry (%) ? 94 Oxygen Delivery Method ? 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 Is patient in pain?: Yes Allergies ceftriaxone Allergy (Severe, Verified 05/02/22 12:27) Rashvancomycin Allergy (Severe, Verified 05/02/22 12:27) RashPenicillins Allergy (Verified 05/02/22 12:27) Swellingoxycodone HCl [From Percocet] Adverse Reaction (Verified 05/02/22 12:27) Itching Medications carvedilol 12.5 mg tablet (Coreg) 12.5 mg PO BID 11/28/20 [History Confirmed 05/02/22] hydralazine 25 mg tablet 25 mg PO TID #0 tabs 09/06/21 [Rx Confirmed 05/02/22] sodium bicarbonate 650 mg tablet 650 mg PO 4X/DAY #1 TAB 09/06/21 [Rx Confirmed 05/02/22] ascorbic acid (vitamin C) 500 mg capsule 500 mg PO DAILY #90 caps 11/28/21 [Rx Confirmed 05/02/22] atorvastatin 40 mg tablet 40 mg PO QHS #30 tabs 11/28/21 [Rx Confirmed 05/02/22] ferrous sulfate 325 mg (65 mg iron) tablet (FeroSul) 325 mg PO DAILY #90 tabs 11/28/21 [Rx Confirmed 05/02/22] multivitamin 1 tab PO DAILY #90 tabs 11/28/21 [Rx Confirmed 05/02/22] pantoprazole 40 mg tablet,delayed release 40 mg PO DAILY #30 tabs 11/28/21 [Rx Confirmed 05/02/22] calcium acetate(phosphat bind) 667 mg capsule 2 cap PO TID 03/07/22 [History Confirmed 05/02/22] acetaminophen 325 mg capsule (Tylenol) 650 mg PO Q4H PRN Pain 03/08/22 [History Confirmed 05/02/22] amlodipine 5 mg tablet 5 mg PO DAILY BP 03/08/22 [History Confirmed 05/02/22] PFSH Medical History? Acute and chronic respiratory failure with hypoxia Ambulates with cane Anemia Asthma Cardiac dysrhythmia, unspecified Chest pain Chronic kidney disease, stage V requiring chronic dialysis Diabetes Easy bruising Edentulous ESRD (end stage renal disease) on dialysis Former smoker Gastric reflux High cholesterol HTN (hypertension) Hyponatremia Leg cramps NSTEMI, initial episode of care On home oxygen therapy PONV (postoperative nausea and vomiting) Post-menopausal Rheumatoid arthritis Shortness of breath on exertion SOB (shortness of breath) Stroke Type II diabetes mellitus Wears glasses Surgical History?(Updated 05/02/22 @ 12:35 by Claudia Friday) H/O: hysterectomy History of arteriovenostomy for renal dialysis History of eye surgery History of surgery knee scope Family History? Mother?? Hypertension Emphysema/COPDSister Hypertension Social History? Smoking Status:? Former smoker alcohol intake:? current details:? 1 per week substance use type:? does not use what type of physical activity do you participate in:? none HPI HPI HPI: NATALI KINSEY, is a 66 F who presents to the office today with pain of the fistula arm. Dr. Mayer performed a stage I left upper extremity basilic vein to brachial artery arteriovenous hemodialysis fistula creation on 04/12/22. Patient noted she has had pain from her shoulder down into her hand since the procedure. She followed up with Dr. Mayer on 04/24 noting these same symptoms. In office ultrasound did not demonstrate any visual abnormalities. Patient presented to the ED on 04/30 secondary to pain in the left upper extremity and hand. Patient presents today for follow-up of left arm and hand pain. Patient notes she is unable to grasp dishes or cups. She is unable to wash dishes. She notes she has dropped 3 dishes at home and broke them. She states she cried today at dialysis due to the pain. 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 She is right handed. She notes she has been taking Tylenol and this has not helped with the discomfort. She notes she has difficulty moving her arm due to pain. She can't sleep due to pain. She feels the symptoms have become worse. She is tearful and frustrated throughout the entire examination.? ROS General General: Yes fatigue; No weight change, appetite, colon cancer, breast cancer or weakness HEENT HEENT: No difficulty swallowing, eye injury, eye surgery, swollen glands or hoarseness Endo Endocrine: Yes diabetes mellitus; No thyroid disease, thyroid cancer, Hair loss, heat intolerance or cold intolerance Skin Skin: No rash or changing moles Musc Musculoskeletal: Yes arthritis; No back problems, rheumatoid arthritis, gout or joint pain Cardio Cardiovascular: Yes high blood pressure; No murmur, pacemaker, heart disease, atrial fibrillation, heart attack, heart stent, palpitations, shortness of breat with exertion or chest pain Psych Psychiatric: No depression, anxiety or hearing voices Resp Respiratory: No shortness of breath, No sleep apnea, No cough, No COPD, No asthma, No emphysema and No wheezing Gastro Gastrointestinal: No abdominal pain, No nausea or vomiting, No diarrhea, No constipation, No blood in stool, No acid reflux, No hemorrhoids, No ulcers, No gallbladder problem and No black,tarry stools Royce Hematologic: No blood thinners, No blood disorders, No bleeding, No anemia and No blood clots Neuro Neurologic: Yes numbness (Left arm), Yes tingling (Left arm) and No weakness Exam Const General: cooperative, comfortable, no acute distress and frail appearing HENMT Head: normal to inspection Eyes General: appearance normal, both eyes and all related structures Neck Neck: normal visual inspection Neck mass: No Chest Other: Right chest tunneled dialysis catheters Resp Effort & Inspection: normal respiratory effort and able to speak in complete sentences Auscultation: clear to auscultation bilaterally Cardio Rate: regular rate Rhythm: regular rhythm GI Inspection: normal to inspection Palpation: soft Musc Cervical Spine: normal cervical lordosis Skin General: no rashes or lesions noted Neuro General: no focal motor deficits Extrem Other: Left upper extremity- AV fistula with excellent pulse, bruit and thrill. Incision c/d/i. Bilateral hands are warm. Slight notable discoloration of the index finger and middle finger. Slight decrease in capillary refill. Pain to touch index and middle digits. Significant decrease in public housing manager strength of the left hand compared to the right hand. Pressure applied to the upper extremity AV fistula allows notable palm of the hand to pink up. Diminished radial and ulnar pulse. Marin with the doppler Psych Mood: angry Affect: tearful Assessment and Plan Assessment and Plan (1) Other mechanical complication of surgically created arteriovenous fistula, subsequent encounter: ?Status:?Acute ?Plan: Dr. Mayer has also evaluated this patient. Plan to obtain an A/V graft ultrasound to determine the velocity of the fistula, radial and ulnar arteries. If the fistula flow is excessive, Dr. Mayer will plan to perform a transposition of the left upper extremity basilic vein to brachial artery arteriovenous fistula and place a restrictor cuff. Patient is very frustrated that she will not be receiving anything for pain today and does not know if she would like to go through another surgery. Patient was explained that is the fistula is working to well that a restrictor cuff may resolve her current symptoms. It has also been discussed to ligate the fistula which may or may not improve the symptoms of her hand. Patient was agreeable to proceed with the proposed procedure. Patient has had the opportunity to ask and have questions answered. Patient verbally understands and agrees with the plan. Patient is not currently on any blood thinners. We will contact the patient with the results of the ultrasound. ? ? ? Orders: Orders AV Fistula/Dialysis Graft Scan Today T82.590D - Other mechanical complication of surgically created arteriovenous fistula, subsequent encounter ? Coding Level of Care Code Global Post Op Diagnoses Other mechanical complication of surgically created arteriovenous fistula, subsequent encounter? 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 We will proceed with transposition and do intraoperative duplex volume flow monitoring and attempt to limit the degree of steal. If this is not successful she may require the fistula ligated Les Mayer M.D., F.A.C.S.
--- NOTE | 2022-05-03 10:31 | DCINST_ITS ---
Discharge Instructions Procedure Fistula Diet Discharge Diet: Renal Diet Activity Discharge Activity: May Not Drive (for 2-3 days or while taking narcotic pain medications.), May Shower and May Take a Tub Bath (in 5 days.) Lifting Restrictions: 5 pounds Keep extremity elevated above heart level: - (Keep arm elevated above the heart level for 3 days.) Dressing / Incision Call your doctor if your incision/area has: Continuous Slow Oozing, Sudden Increased Bleeding (apply pressure and call your doctor.), Increased Pain/ Swelling, Increased Redness and Foul Smelling Discharge Call your doctor if you observe: Fever of 101 or Higher Suture Line Care: Avoid Pulling/Pushing and Avoid Pinching/Bending Cleanse incision/area with: Keep Dressing Clean & Dry Additional Dressing/Incision Instructions:: Change or remove dressing in one day. May protect with a gauze bandaid. Follow Up Care Please Follow Up With: Les Mayer MD When: Call [phone] to make an appointment for suture removal and follow up in 1 week. Test Results: Test results from this visit will be discussed in further detail at your follow- up appointment, if applicable. Discharge Plan Admission Attending Provider: Les Mayer Primary Care Provider: Prince Cummins Discharge Orders/Prescriptions Prescriptions: No Action carvedilol [Coreg] 12.5 mg tablet 12.5 mg PO BID Rx Instructions: must administer with a meal/food hydralazine 25 mg Tablet 25 mg PO TID Qty: 0 0RF sodium bicarbonate 650 mg Tablet 650 mg PO 4X/DAY Qty: 1 0RF calcium acetate(phosphat bind) 667 mg capsule 2 cap PO TID Label Comments: TAKE 2 CAPSULES BY MOUTH THREE TIMES DAILY WITH MEALS amlodipine 5 mg Tablet 5 mg PO DAILY acetaminophen [Tylenol] 325 mg Capsule 650 mg PO Q4H PRN (Reason: Pain) ascorbic acid (vitamin C) 500 mg capsule 500 mg PO DAILY Qty: 90 1RF atorvastatin 40 mg tablet 40 mg PO QHS Qty: 30 0RF ferrous sulfate [FeroSul] 325 mg (65 mg iron) tablet 325 mg PO DAILY Qty: 90 3RF multivitamin Tablet 1 tab PO DAILY Qty: 90 2RF pantoprazole 40 mg tablet,delayed release (DR/EC) 40 mg PO DAILY Qty: 30 0RF Referrals / Follow Up: Prince Cummins DO [Primary Care Provider] - Disposition Disposition (needs filled in before D/C Order can be placed): Home, Self Care
[2022-05-03] MEDS: Heparin Injection (Vial) 5,000 UNIT/ML VIAL 5000 UNIT (11:02)
[2022-05-03] MEDS: Lidocaine 1% (20 ml mdv) 20 ML Vial (11:02)
[2022-05-03] MEDS: Bupivacaine 0.25% 30 ML Vial (11:02)
--- NOTE | 2022-05-03 13:20 | OP.PCM_ITS ---
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 Bovine cuff restriction. Description of Surgical Findings:: Timeout informed consent was obtained. 66-year-old female was taken the operating placed on table underwent general anesthesia and clindamycin 9 mg given intravenously the left extremity sterilely prepped draped 1% lidocaine mixed 50-50 with 0.25% Marcaine was used as a local anesthetic. Local was instilled longitudinal incision was made at the medial aspect of the left upper arm sharp and blunt dissection was used to dissect that free the very well matured basilic vein. Side branches were secured with 3-0 Vicryl ligatures or hemoclips. The length of the vein was measured and an appropriate site sharp blunt section used to identify the brachial artery. Then using a curved tunneler the vein was ligated the antecubital space with a 2-0 Vicryl suture ligature then the vein was tunneled it appeared to have a good positional lie patient received 8000's of heparin peripheral vascular clamps were placed on the brachial artery and 11 blade was used to make an arteriotomy approximately 5 mm in length a and decided venous to arterial anastomosis were created with running 7-0 Prolene. Hemostasis intact hand appear to be viable. I then had a noninvasive vascular lab come down and we did ultrasound Doppler inspection of the graft. Initial graft flows at several sites was 1000 mL/min or greater I then placed a 8 x 80 mm bovine graft shorten the wrist to approximately 6 m plate around the very proximal portion of the fistula and then intermittently with 6-0 Prolene sutures slowly cinched the cuff down while repetitively obtaining multiple Doppler flows. At the completion had a Doppler flow of about 680 and 1 of about 450 distally there is still a palpable thrill the hand now appeared to be much more viable Doppler signals were triphasic at the left radial and ulnar I elected to leave the fistula in this condition still running but less flow than upon her presentation to the operating room. Patient received 20 mg of protamine. Subcutaneous tissues were approximate interrupted 3-0 Vicryl. Skin is approximately subsequent 4 Monocryl. Steri-Strips Telfa's 4 x 4's soft roll Rufino wrap applied. Sponge and instrument and needle counts were reported to the surgeon to be correct. Blood loss 150 cc. She tolerated procedure well was taken the recovery room in satisfactory condition apparent complication. Specimens none. Drains none. Blood loss 150 cc. Les Mayer M.D., F.A.C.S. Surgeon: Les Mayer
[2022-05-03 14:26] LABS: Bedside Glucose 107 mg/dL (74-106)
[2022-05-03] MEDS: HYDROcodone Bitartrate/Apap 5/325 Tablet PO (15:20)
--- NOTE | 2022-05-03 16:10 | SUR.PHASEII ---
Dr. Mayer to bedside post op. New order for this nurse to loosen serenity wrap dressing on left arm. Nurse completed task. Bruit heared upon auscultation post dressing adjustment. Patient tolerated well. Dr. Mayer aware of patient emesis after administration of norco tablet. Patient able to eat and drink after emisis. vss. void in restroom. cleared for discharge.
--- NOTE | 2022-05-03 16:14 | SUR.PHASEII ---
right chest tunnelled cath dressing changed after patient occurrence of emesis on chest. soiled dressing removed. chlora prep solution to clean site. skin prep applied and new dressing applied under sterile procedure. patient tolerated well.
[2022-05-07 09:30] LABS: Bedside Glucose 134 mg/dL (74-106)
== END 2022-05-03 16:16 | disposition home or self-care (01) ==
LOC: SDC 07:54 → AC 07:56
PROVIDERS: PCP Family Medicine; Referring Provider Surgery; Visit Provider Surgery
PROC: (CPT 36821; principal; 2022-05-03 10:15)
DX: T82.590A Other mechanical complication of surgically created arteriovenous fistula, initial encounter (principal); Z99.2 Dependence on renal dialysis; E11.22 Type 2 diabetes mellitus with diabetic chronic kidney disease; N18.6 End stage renal disease; I12.0 Hypertensive chronic kidney disease with stage 5 chronic kidney disease or end stage renal disease; X58.XXXA Exposure to other specified factors, initial encounter; R23.3 Spontaneous ecchymoses; Z79.899 Other long term (current) drug therapy; Z87.891 Personal history of nicotine dependence
CPT/HCPCS: 36821; 01844; 82962; J7120; J2405

== ENCOUNTER → 2022-05-13 | Outpatient (CLI) | payer MEDICAID, SELFPAY ==
--- NOTE | 2022-05-13 15:25 | AVDS_ITS ---
Reason For Study: arm pain LEFT Brachial artery, prox, 290.8/128.2 cm/sec. Brachial artery, prox, 649.7 ml/min. Brachial artery, inflow, 276.8/91 cm/sec. Brachial artery, inflow, 509.5 ml/min. Proximal anastomosis, 470/147.2 cm/sec. Proximal anastomosis, 245.4 ml/min. Proximal graft, 575/259.7 cm/sec. Proximal graft, 2437 ml/min. Mid graft, 81.5/35.8 cm/sec. Mid graft, 799.9 ml/min. Distal graft, 70.5/26.7 cm/sec. Distal graft, 730 ml/min. Outflow vein, 121.6/37.6 cm/sec. Outflow vein, 1034 ml/min. Radial artery, 48.8/5.3 cm/sec Ulnar artery, 69.5/9.3 cm/sec. Brachial artery below anastomosis, 103.4/21.2 cm/sec. Brachial artery below anastomosis, 170.6 ml/min. VL/AV Fistula/Dialysis Graft Scan Interpretation Summary Brachial artery flow volume is most accurate and normal for a fistula at 649.7 ml/min and 509.5 ml/min. Flow volume is low in the proximal fistula at 245.4 ml/min at the restriction c uff and then accelerates in the proximal and mid fistula to only decline distally. Clinical correlation would be appropriate though less volume flow than 05/02/22 Ordering Physician: Heather Guzman Referring Physician: Dru Cummins M.D. Performed By: Hawa Savage RVT
== END | disposition home or self-care (01) ==
LOC: CVS 15:15
PROVIDERS: PCP Family Medicine; Referring Provider Physician Assistant; Visit Provider Physician Assistant
DX: T82.590D Other mechanical complication of surgically created arteriovenous fistula, subsequent encounter (principal); Z99.2 Dependence on renal dialysis; X58.XXXD Exposure to other specified factors, subsequent encounter
CPT/HCPCS: 93990

== ENCOUNTER 2022-06-13 14:10 | Emergency (ER) | payer MEDICAID, SELFPAY ==
[2022-06-13 14:11] VITALS: BP 162/81; PULSE 80; RESP 14; TEMP 36.4; O2SAT 100; BMI 31.1
--- NOTE | 2022-06-13 14:27 | EX.ED.DYSGE1 ---
HPI History of Present Illness Chief Complaint: Back Informant: patient Onset/Context/Timing Onset: Days (Couple days) Context: Gradual Onset Timing: Waxes and wanes Current Severity: Mild Maximum Severity: Moderate Narrative Narrative: Patient presents secondary to low back pain. She states she gets this pain every couple years. It seems to be muscular in nature and is worse with movement. She is had no fall or injury. She is on dialysis but does still make urine. She states she has no urinary symptoms. Pain does not radiate down into her legs. She has been trying [id number] medicine without relief. [facility] Medical History Acute and chronic respiratory failure with hypoxia Ambulates with cane Anemia Asthma Cardiac dysrhythmia, unspecified Chest pain Chronic kidney disease, stage V requiring chronic dialysis Diabetes Easy bruising Edentulous ESRD (end stage renal disease) on dialysis Former smoker Gastric reflux High cholesterol HTN (hypertension) Hyponatremia Leg cramps NSTEMI, initial episode of care On home oxygen therapy PONV (postoperative nausea and vomiting) Post-menopausal Rheumatoid arthritis Shortness of breath on exertion SOB (shortness of breath) Stroke Type II diabetes mellitus Wears glasses Home Medications carvedilol 12.5 mg tablet (Coreg) 12.5 mg PO BID 11/28/20 [History Last Taken 05/03/22 06:00] hydralazine 25 mg tablet 25 mg PO TID #0 tabs 09/06/21 [Rx Last Taken 05/03/22 06:00] sodium bicarbonate 650 mg tablet 650 mg PO 4X/DAY #1 TAB 09/06/21 [Rx Last Taken 03/07/22] ascorbic acid (vitamin C) 500 mg capsule 500 mg PO DAILY #90 caps 11/28/21 [Rx Last Taken 03/07/22] atorvastatin 40 mg tablet 40 mg PO QHS #30 tabs 11/28/21 [Rx Last Taken 03/07/22] ferrous sulfate 325 mg (65 mg iron) tablet (FeroSul) 325 mg PO DAILY #90 tabs 11/28/21 [Rx Last Taken 03/07/22] multivitamin 1 tab PO DAILY #90 tabs 11/28/21 [Rx Last Taken 03/07/22] pantoprazole 40 mg tablet,delayed release 40 mg PO DAILY #30 tabs 11/28/21 [Rx Last Taken 05/03/22 06:00] calcium acetate(phosphat bind) 667 mg capsule 2 cap PO TID 03/07/22 [History Last Taken 03/07/22] acetaminophen 325 mg capsule (Tylenol) 650 mg PO Q4H PRN Pain 03/08/22 [History Last Taken 03/06/22] amlodipine 5 mg tablet 5 mg PO DAILY BP 03/08/22 [History Last Taken 05/03/22 06:00] hydrocodone-acetaminophen 5-325mg 5mg-325mg 1 tab PO Q8H PRN pain 3 days #10 tabs 06/13/22 [Rx Last Taken Unknown] Allergy/AdvReac Type Severity Reaction Status Date / Time ceftriaxone Allergy Severe Rash Verified 06/13/22 14:10 vancomycin Allergy Severe Rash Verified 06/13/22 14:10 Penicillins Allergy Swelling Verified 06/13/22 14:10 oxycodone HCl [From Percocet] AdvReac Itching Verified 06/13/22 14:10 Family History Mother Hypertension Emphysema/COPD Sister Hypertension Surgical History H/O: hysterectomy History of arteriovenostomy for renal dialysis History of eye surgery History of surgery knee scope S/P arteriovenous (AV) fistula creation Social History Smoking Status: Former smoker alcohol intake: current details: 1 per week substance use type: does not use what type of physical activity do you participate in: none ROS ROS ED Constitutional Constitutional ED: Denies chills or fever(s) Eyes Eyes: Denies change in vision or discharge from eye(s) ENT ENT ED: Denies discharge from eye(s), rhinorrhea or sore throat Cardiovascular Cardiovascular: Denies chest pain or palpitations Respiratory/Chest Respiratory/Chest: Denies cough or dyspnea Gastrointestinal Gastrointestinal: Denies abdominal pain, diarrhea, nausea or vomiting Genitourinary Genitourinary ED: Denies dysuria Musculoskeletal Musculoskeletal: Reports back pain; Denies extremity pain Integumentary Denies Abrasions or rash Neurologic Neurologic: Reports weakness and other Details: Chronic left arm weakness unchanged from baseline ; Denies headache(s) Psychiatric Psychiatric: Denies anxiety or depression Allergic/Immunologic Allergic/Immunologic ED: Denies lip swelling or urticaria EXAM Physical Exam Const Vital Signs: 06/13/22 14:11 Temperature 97.5 F L Temperature Source Temporal Pulse Rate 80 Respiratory Rate 14 Blood Pressure 162/81 H Blood Pressure Mean 108 Pulse Ox 100 Oxygen Delivery Method Room Air Positive well nourished and well developed General Appearance ED: well developed HEENT Reports normocephalic and head/scalp atraumatic Eyes PERRL and EOMs intact bilaterally Neck supple Chest Wall inspection of chest normal and palpation of chest normal Resp normal respiratory effort and clear to auscultation bilaterally Cardio regular rate and regular rhythm GI normal to inspection, nondistended, normoactive bowel sounds Palpation: soft Back/Spine Back/Spine Narrative: Reproduce muscular tenderness in the left low lumbar paraspinal muscles. No overlying skin change. No midline tenderness. Extremity Extremity Narrative: Fistula in place in the left upper arm. Neuro oriented x3 and no sensory deficits noted Neuro Narrative: Chronic left upper extremity weakness unchanged from baseline Sensorium / Orientation: alert Psych mental status grossly normal Skin no rashes or lesions noted MDM MDM MDM Narrative Medical decision making narrative: Patient does have a documented allergy to oxycodone. She has tolerated [place] in the past without difficulty. I did do an OARRS report. Although OARRS report did not show any narcotic prescriptions, when I reviewed outside pharmacy prescriptions she was written [place] in April. Only 8 tabs were provided at that time. Patient will be given a short course of [place] to help with back pain. With no fall or direct injury do not think imaging will be beneficial. Patient is comfortable with this plan. Return instructions provided. Discharge Plan Triage Chief Complaint: Back ED Provider: Najma Salgado Dx/Rx/DC Orders Clinical Impression: Back pain Instructions: ED Back Pain (Acute or Chronic) Prescriptions: New hydrocodone-acetaminophen 5-325 mg tablet 1 tab PO Q8H PRN (Reason: pain) 3 Days Qty: 10 0RF No Action carvedilol [Coreg] 12.5 mg tablet 12.5 mg PO BID Rx Instructions: must administer with a meal/food hydralazine 25 mg Tablet 25 mg PO TID Qty: 0 0RF sodium bicarbonate 650 mg Tablet 650 mg PO 4X/DAY Qty: 1 0RF calcium acetate(phosphat bind) 667 mg capsule 2 cap PO TID Label Comments: TAKE 2 CAPSULES BY MOUTH THREE TIMES DAILY WITH MEALS amlodipine 5 mg Tablet 5 mg PO DAILY acetaminophen [Tylenol] 325 mg Capsule 650 mg PO Q4H PRN (Reason: Pain) ascorbic acid (vitamin C) 500 mg capsule 500 mg PO DAILY Qty: 90 1RF atorvastatin 40 mg tablet 40 mg PO QHS Qty: 30 0RF ferrous sulfate [FeroSul] 325 mg (65 mg iron) tablet 325 mg PO DAILY Qty: 90 3RF multivitamin Tablet 1 tab PO DAILY Qty: 90 2RF pantoprazole 40 mg tablet,delayed release (DR/EC) 40 mg PO DAILY Qty: 30 0RF Primary Care Provider: Prince Cummins Referrals: Prince Cummins, [Primary Care Provider] - 3-5 Days if not improving Disposition Disposition: Home, Self Care
[2022-06-13] MEDS: HYDROcodone Bitartrate/Apap 5/325 Tablet PO (14:47)
== END 2022-06-13 14:49 | disposition home or self-care (01) ==
PROVIDERS: Emergency Provider Emergency Medicine; PCP Family Medicine; Visit Provider Emergency Medicine
DX: M54.50 Low back pain, unspecified (principal); Z99.2 Dependence on renal dialysis; E11.22 Type 2 diabetes mellitus with diabetic chronic kidney disease; I12.0 Hypertensive chronic kidney disease with stage 5 chronic kidney disease or end stage renal disease; N18.6 End stage renal disease; I25.2 Old myocardial infarction; E78.00 Pure hypercholesterolemia, unspecified; Z79.899 Other long term (current) drug therapy; Z86.73 Personal history of transient ischemic attack (TIA), and cerebral infarction without residual deficits; Z87.891 Personal history of nicotine dependence
CPT/HCPCS: 99282

== ENCOUNTER 2022-07-27 22:48 | Observation (INO) | payer MEDICAID, SELFPAY ==
[2022-07-27 22:49] VITALS: BP 256/93; PULSE 94; RESP 15; TEMP 37.6; O2SAT 94; BMI 35.4
--- NOTE | 2022-07-27 23:47 | EX.ED.DYSGE1 ---
HPI History of Present Illness Chief Complaint: GI Bleed Informant: patient Narrative Narrative: 66-year-old female presenting to the emergency room with diarrhea. Patient states that today she has had 2 episodes of diarrhea. She notes a suprapubic left lower quadrant abdominal pain. Each episode of diarrhea has had bright red blood with it. She has never had this before. She states that she is not on a blood thinner. She notes that she did not take any of her blood pressure medications today. She is a dialysis patient. She denies any history of colitis or diverticulitis. She denies recent antibiotics. [facility] Medical History Acute and chronic respiratory failure with hypoxia Ambulates with cane Anemia Asthma Cardiac dysrhythmia, unspecified Chest pain Chronic kidney disease, stage V requiring chronic dialysis Diabetes Easy bruising Edentulous ESRD (end stage renal disease) on dialysis Former smoker Gastric reflux High cholesterol HTN (hypertension) Hyponatremia Leg cramps NSTEMI, initial episode of care On home oxygen therapy PONV (postoperative nausea and vomiting) Post-menopausal Rheumatoid arthritis Shortness of breath on exertion SOB (shortness of breath) Stroke Type II diabetes mellitus Wears glasses Home Medications carvedilol 12.5 mg tablet (Coreg) 12.5 mg PO BID 11/28/20 [History Last Taken 05/03/22 06:00] hydralazine 25 mg tablet 25 mg PO TID #0 tabs 09/06/21 [Rx Last Taken 05/03/22 06:00] sodium bicarbonate 650 mg tablet 650 mg PO 4X/DAY #1 TAB 09/06/21 [Rx Last Taken 03/07/22] ascorbic acid (vitamin C) 500 mg capsule 500 mg PO DAILY #90 caps 11/28/21 [Rx Last Taken 03/07/22] atorvastatin 40 mg tablet 40 mg PO QHS #30 tabs 11/28/21 [Rx Last Taken 03/07/22] ferrous sulfate 325 mg (65 mg iron) tablet (FeroSul) 325 mg PO DAILY #90 tabs 11/28/21 [Rx Last Taken 03/07/22] pantoprazole 40 mg tablet,delayed release 40 mg PO DAILY #30 tabs 11/28/21 [Rx Last Taken 05/03/22 06:00] calcium acetate(phosphat bind) 667 mg capsule 2 cap PO TID 03/07/22 [History Last Taken 03/07/22] acetaminophen 325 mg capsule (Tylenol) 650 mg PO Q4H PRN Pain 03/08/22 [History Last Taken 03/06/22] amlodipine 5 mg tablet 5 mg PO DAILY BP 03/08/22 [History Last Taken 05/03/22 06:00] hydrocodone-acetaminophen 5-325mg 5mg-325mg 1 tab PO Q8H PRN pain 3 days #10 tabs 06/13/22 [Rx Last Taken Unknown] multivitamin 1 tab PO DAILY #90 tabs 07/12/22 [Rx Last Taken Unknown] Allergy/AdvReac Type Severity Reaction Status Date / Time ceftriaxone Allergy Severe Rash Verified 07/27/22 22:49 vancomycin Allergy Severe Rash Verified 07/27/22 22:49 Penicillins Allergy Swelling Verified 07/27/22 22:49 oxycodone HCl [From Percocet] AdvReac Itching Verified 07/27/22 22:49 Family History Mother Hypertension Emphysema/COPD Sister Hypertension Surgical History H/O: hysterectomy History of arteriovenostomy for renal dialysis History of eye surgery History of surgery knee scope S/P arteriovenous (AV) fistula creation Social History Smoking Status: Former smoker alcohol intake: current details: 1 per week substance use type: does not use what type of physical activity do you participate in: none ROS ROS ED Constitutional Constitutional ED: Denies chills or weight loss Eyes Eyes: Denies change in vision or diplopia ENT ENT ED: Denies ear pain, rhinorrhea or sore throat Cardiovascular Cardiovascular: Denies chest pain, orthopnea, palpitations or racing heartbeat Respiratory/Chest Respiratory/Chest: Denies cough, dyspnea or orthopnea Gastrointestinal Gastrointestinal: Reports abdominal pain and diarrhea; Denies nausea or vomiting Genitourinary Genitourinary ED: Denies dysuria, hematuria or urinary frequency Musculoskeletal Musculoskeletal: Denies arthralgias or myalgias Integumentary Denies abscess or rash Neurologic Neurologic: Denies headache(s) or weakness Psychiatric Psychiatric: Denies anxiety, depression, suicidal ideation or suicidal thoughts Endocrine Endocrinology: Denies polydipsia, polyphagia or polyuria Allergic/Immunologic Allergic/Immunologic ED: Denies mouth swelling, tongue swelling or urticaria EXAM Physical Exam Const Vital Signs: 07/27/22 22:49 07/27/22 23:48 Temperature 99.7 F H Temperature Source Temporal Pulse Rate 94 Respiratory Rate 15 Blood Pressure 256/93 H 222/82 H Blood Pressure Mean 147 128 Pulse Ox 94 Oxygen Delivery Method Room Air Positive well nourished and well developed General Appearance ED: well developed HEENT Reports normocephalic, head/scalp atraumatic and moist mucous membranes Eyes PERRL and EOMs intact bilaterally Neck no lymphadenopathy, supple and no JVD Resp normal respiratory effort and clear to auscultation bilaterally Cardio regular rate, regular rhythm and no murmurs GI Palpation: soft and tender LLQ and suprapubic; Negative for guarding or rebound tenderness present Back/Spine no CVA tenderness and normal ROM Extremity normal to inspection General Extremety ED: Negative for edema General Extremity: Negative for edema Neuro oriented x3 and CN's II-XII intact bilaterally Sensorium / Orientation: alert Motor Exam: strength 5/5 throughout Psych mental status grossly normal Mood & Affect: Negative for depressed or tearful Skin no rashes or lesions noted and no wounds MDM MDM MDM Narrative Medical decision making narrative: Patient has had several diarrheal stools that are grossly bloody. Hemoglobin however is 12 with a white count of 6.9. Lactic acid is normal. Creatinine 8.23 but she is also a dialysis patient. CT abdomen pelvis is concerning for colitis per radiology's read. Patient received a dose of Zofran. We also administered some hydralazine to bring her pressures down. At this point plan is admission into the hospital Lab Data Attestation: I reviewed the patient's lab results. Labs: Laboratory Results - last 24 hr 07/27/22 07/27/22 07/27/22 23:50 23:50 23:50 WBC 6.9 RBC 4.04 L Hgb 12.0 Hct 39.1 MCV 96.8 MCH 29.7 MCHC 30.7 L RDW Std Deviation 50.0 H RDW Coeff of Dottie 14.3 Plt Count 225 MPV 9.1 Immature Gran % (Auto) 1.000 H Neut % (Auto) 62.3 Lymph % (Auto) 23.7 [place] % (Auto) 9.5 Eos % (Auto) 2.9 Baso % (Auto) 0.6 Absolute Neuts (auto) 4.3 Absolute Lymphs (auto) 1.64 Nucleated RBC % 0.6 PT 12.5 INR 1.0 APTT 31.1 Sodium 143 Potassium 4.7 Chloride 108 H Carbon Dioxide 26.0 Anion Gap 9 BUN 44 H Creatinine 8.23 H* Estim Creat Clear Calc 5.21 Est GFR (MDRD) Af Amer 6 L Est GFR (MDRD) Non-Af 5 L BUN/Creatinine Ratio 5.3 L Glucose 141 H Lactic Acid Calcium 9.0 Phosphorus Magnesium Total Bilirubin 0.40 AST 39 H ALT 38 Alkaline Phosphatase 104 Total Protein 7.8 Albumin 2.7 L Globulin 5.1 H Albumin/Globulin Ratio 0.5 L Lipase 314 07/27/22 07/28/22 23:50 01:39 WBC RBC Hgb Hct MCV MCH MCHC RDW Std Deviation RDW Coeff of Dottie Plt Count MPV Immature Gran % (Auto) Neut % (Auto) Lymph % (Auto) [place] % (Auto) Eos % (Auto) Baso % (Auto) Absolute Neuts (auto) Absolute Lymphs (auto) Nucleated RBC % PT INR APTT Sodium Potassium Chloride Carbon Dioxide Anion Gap BUN Creatinine Estim Creat Clear Calc Est GFR (MDRD) Af Amer Est GFR (MDRD) Non-Af BUN/Creatinine Ratio Glucose Lactic Acid 0.7 Calcium Phosphorus 4.1 Magnesium 2.3 Total Bilirubin AST ALT Alkaline Phosphatase Total Protein Albumin Globulin Albumin/Globulin Ratio Lipase Discharge Plan Triage Chief Complaint: GI Bleed ED Provider: Messi Muñiz Dx/Rx/DC Orders Primary Care Provider: Prince Cummins
[2022-07-27 23:48] VITALS: BP 222/82
[2022-07-27] MEDS: hydrALAZINE 20 MG/ML Vial IV (23:59)
[2022-07-27] MEDS: 0.9% Normal Saline 1,000 ML 1000 ML IV (23:59)
[2022-07-28] VITALS (19 sets, daily range): BP systolic 131–223; BP diastolic 55–86; PULSE 79–92; RESP 16–21; TEMP 36.6–38.4; O2SAT 96–100; BMI 33.6
[2022-07-28 00:01] LABS: Absolute Lymphocyte Count 1.64 X10^3/uL (0.83-4.51); Absolute Neutrophil Count 4.3 X10^3/uL (2.0-7.7); Basophil# 0.04 X10^3/uL; Basophil% 0.6 % (0-1); Eosinophils% 2.9 % (0-5); Hematocrit 39.1 % (37-47); Lymphocyte # 1.64 X10^3/ul (0.83-4.51); Lymphocyte % 23.7 % (19-41); Mean Corp Hgb Conc 30.7 g/dL (32-36); Mean Corpuscular Hgb 29.7 pg (27.0-32.0); Mean Corpuscular Volume 96.8 fL (81-99); Mean Platelet Vol. 9.1 fl (6.2-12.0); Monocyte# 0.66 X10^3/uL; Monocyte% 9.5 % (0-10); NRBC Flagged by Analyzer 0.6 % (0-5); Neutrophil # 4.32 X10^3/uL (2.7-7.7); Neutrophil % 62.3 % (47-70); Platelet Count 225 K/mm3 (150-450); RBC Distribution Width CV 14.3 % (11.6-14.6); Red Blood Count 4.04 M/mm3 (4.2-5.4); White Blood Count 6.9 K/mm3 (4.4-11.0)
[2022-07-28 00:27] LABS: Partial Thromboplast Time 31.1 Seconds (24.1-36.2); Prothrombin Time (Protime)PT. 12.5 SECONDS (11.7-14.9)
[2022-07-28] MEDS: Ondansetron 4 MG/2 ML Vial IV (00:28)
[2022-07-28 00:32] LABS: ALB/GLOB Ratio 0.5 RATIO (0.9-2.4); AST(SGOT) 39 U/L (15-37); Alanine Aminotransfer ALT/SGPT 38 U/L (13-56); Albumin, Serum 2.7 g/dL (3.2-5.0); Alkaline Phosphatase 104 U/L (45-117); Anion Gap 9 (5-15); BUN 44 mg/dL (7-18); BUN/Creat Ratio 5.3 RATIO (10-20); Chloride 108 mmol/L (98-107); Creatinine, Serum 8.23 mg/dL (0.55-1.02); EST Glomerular Filtration Rate 5 mL/min (>60); Est Glom Filt Rate - Afr Amer 6 mL/min (>60); Estimated Creatinine Clearance 5.21 ml/min; Globulin 5.1 g/dL (2.2-4.2); Glucose 141 mg/dL (74-106); Lipase 314 U/L (73-393); Potassium 4.7 mmol/L (3.5-5.1); Protein, Total 7.8 g/dL (6.4-8.2); Sodium Level 143 mmol/L (136-145)
--- NOTE | 2022-07-28 00:58 | ED.RN ---
pt vomitted up a large amt on the floor and all over herself, bile looking, also inc of a large amt of liquid red stool
[2022-07-28] MEDS: Ciprofloxacin 400 MG/200 ML BAG 200 MG IV (01:52)
--- NOTE | 2022-07-28 01:56 | PCM.HP.STD ---
HPI - General General Date of Admission: 07/28/22 Date of Service: 07/28/22 Chief Complaint: Diarrhea, BRB with loose stools, abdominal pain HPI Narrative The patient is a 66 y/o F w/ PMHx: ESRD on HD, AOCD, HTN, HLD, Former tobacco use, Asthma, Rheumatoid arthritis, Diabetes mellitus type II, Hx CVA who presents to the [facility] ED on 07/28/22 with history of diarrhea with suprapubic as well as left lower quadrant abdominal discomfort with reported bright red blood occasionally streaking with the stool with associated nausea without any emesis incidentally reporting that she is not taking any available blood pressure medications on day of presentation prompting ED evaluation. She notes the pain in her abdomen has been cramping primarily in nature, more severe prior to loose stools onset. She had recent notable episode in the ED and currently reports pain improved upon evaluation. She also reports that she missed HD 07/27/22 secondary to feeling poorly. Work-up in the ED included T99.7, heart rate 94, BP initially 256/93 with most recent repeat 222/82 reported that she did not take any of her hypertensive medications on day of presentation, respiratory rate 15, 94% on room air, CBC with WC 6.9, hemoglobin 12, platelet 225 with increased immature granulocytes, unremarkable coags, CMP with chloride 108, BUN/10 and 44/8.23, glucose 141, AST 39 otherwise hepatic profile not marked appearing, lipase 314, CT abdomen pelvis with mild diffuse colitis with no bowel obstruction with mild nonspecific bilateral perinephric stranding with tiny nonobstructive stone within the right kidney measuring 1.[address], enteric pathogen stool pending. In the ED patient ministered Zofran 4 mg IV x1, hydralazine 20 mg IV x1 and a 1 L normal saline bolus, cipro IV, flagyl IV. [facility] Medical History Acute and chronic respiratory failure with hypoxia Ambulates with cane Anemia Asthma Cardiac dysrhythmia, unspecified Chest pain Chronic kidney disease, stage V requiring chronic dialysis Diabetes Easy bruising Edentulous ESRD (end stage renal disease) on dialysis Former smoker Gastric reflux High cholesterol HTN (hypertension) Hyponatremia Leg cramps NSTEMI, initial episode of care On home oxygen therapy PONV (postoperative nausea and vomiting) Post-menopausal Rheumatoid arthritis Shortness of breath on exertion SOB (shortness of breath) Stroke Type II diabetes mellitus Wears glasses Home Medications carvedilol 12.5 mg tablet (Coreg) 12.5 mg PO BID 11/28/20 [History Last Taken 05/03/22 06:00] hydralazine 25 mg tablet 25 mg PO TID #0 tabs 09/06/21 [Rx Last Taken 05/03/22 06:00] sodium bicarbonate 650 mg tablet 650 mg PO 4X/DAY #1 TAB 09/06/21 [Rx Last Taken 03/07/22] ascorbic acid (vitamin C) 500 mg capsule 500 mg PO DAILY #90 caps 11/28/21 [Rx Last Taken 03/07/22] atorvastatin 40 mg tablet 40 mg PO QHS #30 tabs 11/28/21 [Rx Last Taken 03/07/22] ferrous sulfate 325 mg (65 mg iron) tablet (FeroSul) 325 mg PO DAILY #90 tabs 11/28/21 [Rx Last Taken 03/07/22] pantoprazole 40 mg tablet,delayed release 40 mg PO DAILY #30 tabs 11/28/21 [Rx Last Taken 05/03/22 06:00] calcium acetate(phosphat bind) 667 mg capsule 2 cap PO TID 03/07/22 [History Last Taken 03/07/22] acetaminophen 325 mg capsule (Tylenol) 650 mg PO Q4H PRN Pain 03/08/22 [History Last Taken 03/06/22] amlodipine 5 mg tablet 5 mg PO DAILY BP 03/08/22 [History Last Taken 05/03/22 06:00] hydrocodone-acetaminophen 5-325mg 5mg-325mg 1 tab PO Q8H PRN pain 3 days #10 tabs 06/13/22 [Rx Last Taken Unknown] multivitamin 1 tab PO DAILY #90 tabs 07/12/22 [Rx Last Taken Unknown] Allergy/AdvReac Type Severity Reaction Status Date / Time ceftriaxone Allergy Severe Rash Verified 07/27/22 22:49 vancomycin Allergy Severe Rash Verified 07/27/22 22:49 Penicillins Allergy Swelling Verified 07/27/22 22:49 oxycodone HCl [From Percocet] AdvReac Itching Verified 07/27/22 22:49 Family History Mother Hypertension Emphysema/COPD Sister Hypertension Surgical History H/O: hysterectomy History of arteriovenostomy for renal dialysis History of eye surgery History of surgery knee scope S/P arteriovenous (AV) fistula creation Social History Smoking Status: Former smoker alcohol intake: current details: 1 per week substance use type: does not use what type of physical activity do you participate in: none ROS ROS Narrative Admission Review of Systems: CONSTITUTIONAL: No weight loss, fever, chills, + weakness or fatigue. HEENT: Eyes: No visual loss, blurred vision, double vision or yellow sclerae. Ears, Nose, Throat: No hearing loss, sneezing, congestion, runny nose or sore throat. SKIN: No rash or itching, lesions, wounds. CARDIOVASCULAR: No chest pain, chest pressure or chest discomfort, palpitations, edema, orthopnea, syncopal events. RESPIRATORY: No shortness of breath, cough or sputum, wheezing, hemoptysis. GASTROINTESTINAL: + anorexia, nausea, abdominal pain/cramping, diarrhea, BRBPR w/ diarrhea. No vomiting, melena. GENITOURINARY: No dysuria, frequency, urgency or retention. NEUROLOGICAL: No headache, dizziness, syncope, paralysis, ataxia, numbness or tingling in the extremities, focal weakness, change in bowel or bladder control, seizure. MUSCULOSKELETAL: + muscle, back pain, joint pain or stiffness. HEMATOLOGIC: + anemia, bleeding or bruising. LYMPHATICS: No enlarged nodes. No history of splenectomy. PSYCHIATRIC: No history of depression or anxiety. ENDOCRINOLOGIC: + reports of sweating. No cold or heat intolerance. No polyuria or polydipsia. ALLERGIES: + history of asthma. Vital Signs Vital Signs Vital Signs: 07/27/22 22:49 07/27/22 23:48 Temperature 99.7 F H Temperature Source Temporal Pulse Rate 94 Respiratory Rate 15 Blood Pressure 256/93 H 222/82 H Blood Pressure Mean 147 128 Pulse Ox 94 Oxygen Delivery Method Room Air Weight Weight: 187 lb 6.287 oz Body Mass Index (BMI) 35.4 Physical Exam Narrative Physical Examination: General: Awake, alert, oriented x 3 and cooperative, seated upright in the ED bed, fatigued appearing, notes abdominal discomfort improved after recent diarrheal bout. Skin: Normal color, normal turgor, no icterus, no cyanosis. HEENT: AT/NC, EOMI, PERRLA, dry MM, no carotid bruits or JVD noted. Lungs: Diminished, > bases, appropriate effort, R upper chest HD access in place, no rales, ronchi or wheezing. Heart: Regular rate and rhythm; no gallop, rub audible. Abdomen: Soft, no marked TTP, no rebound or guarding, no obvious distention, hyperactive BS, no obvious HSM. Extremities: No cyanosis, clubbing, or edema. Neurological: Patient awake, alert, oriented as noted, cognitive function intact; pupils equally reactive to light and accommodation, cranial nerves II-XII grossly normal, moving all 4 extremities, no focal deficits, strength moderately globally decreased secondary to acute presentation. Psychiatric: Affect appears fatigued, no acute evidence of depressive or anxiety feelings. Results Lab / Micro Data Result Diagrams: 07/27/22 23:50 07/27/22 23:50 Labs: Laboratory Results - last 24 hr 07/27/22 23:50: WBC 6.9, RBC 4.04 L, Hgb 12.0, Hct 39.1, MCV 96.8, MCH 29.7, MCHC 30.7 L, RDW Std Deviation 50.0 H, RDW Coeff of Dottie 14.3, Plt Count 225, MPV 9.1, Immature Gran % (Auto) 1.000 H, Neut % (Auto) 62.3, Lymph % (Auto) 23.7, [place] % (Auto) 9.5, Eos % (Auto) 2.9, Baso % (Auto) 0.6, Absolute Neuts (auto) 4.3, Absolute Lymphs (auto) 1.64, Nucleated RBC % 0.6 07/27/22 23:50: PT 12.5, INR 1.0, APTT 31.1 07/27/22 23:50: Sodium 143, Potassium 4.7, Chloride 108 H, Carbon Dioxide 26.0, Anion Gap 9, BUN 44 H, Creatinine 8.23 H*, Estim Creat Clear Calc 5.21, Est GFR (MDRD) Af Amer 6 L, Est GFR (MDRD) Non-Af 5 L, BUN/Creatinine Ratio 5.3 L, Glucose 141 H, Calcium 9.0, Total Bilirubin 0.40, AST 39 H, ALT 38, Alkaline Phosphatase 104, Total Protein 7.8, Albumin 2.7 L, Globulin 5.1 H, Albumin/Globulin Ratio 0.5 L, Lipase 314 Micro: Microbiology 07/27/22 23:50 Stool Stool Occult Blood (SIMONE) - Final Occult Blood Positive Radiology Impression Abdomen/Pelvis CT 07/28/22 23:39 IMPRESSION: Possible mild diffuse colitis. No bowel obstruction. Nonspecific mild bilateral perinephric stranding with tiny nonobstructive stone within the right kidney measuring 1.2 mm. Remainder of abdominal viscera are unremarkable. Electronically Signed: Janeth Ochoa MD at 0:40 EST , Assessment & Plan Assessment/Plan (1) Colitis: PLAN: Plan The patient is a 66 y/o F w/ PMHx: ESRD on HD, AOCD, HTN, HLD, Former tobacco use, Asthma, Rheumatoid arthritis, Diabetes mellitus type II, Hx CVA who presents to the [facility] ED on 07/28/22 with history of diarrhea with suprapubic as well as left lower quadrant abdominal discomfort with reported bright red blood occasionally streaking with the stool with associated nausea without any emesis incidentally reporting that she is not taking any available blood pressure medications on day of presentation prompting ED evaluation. #1. Acute mild diffuse colitis with associated blood streaks/GI bleeding and incidentally noted nonspecific mild bilateral perinephric stranding: Will admit to medical surgical floor, maintain on judicious hydration given ESRD history, monitor I&Os, maintain NPO status w/ bowel rest, treat with cipro and flagyl given allergy history, trend Hgb, PPI, anti-emetics, pain regimen PRN, pending C. difficile and enteric pathogen. #2. ESRD: Patient on HD, continue patient home calcium acetate, sodium bicarb regimen, TTS schedule however patient reports missing 07/27/22 HD regimen secondary to feeling poorly, following with Dr. Gaytan/Dr. Hernandez who will be consulted. #3. AOCD/Fe deficiency anemia: Admission hemoglobin 12, baseline noted prior more recently 10-11 but prior to this in 2020 had baseline been 7-8, will continue to trend, continue iron supplementation. #4. Diabetes mellitus type II: Noted history, per current list on regimen, will obtain hemoglobin A1c to be cautious and maintain NPO with q 6 hour accu checks w/ ISS given NPO status secondary to #1. #5. History CVA: We will hold aspirin therapy given complaint of bleeding with diarrhea, continue hypertensive regimen, not on statin therapy. #6. GERD: We will continue patient on PPI however if C. difficile positive will need to de-escalate. #7. Chronic asthma: Not on any routine inhalers per current list, will have as needed albuterol, encourage head of bed and I-S. #8. Former tobacco usage: Encourage continued tobacco cessation. #9. Hyperlipidemia: Continue home statin regimen. #10. DVT prophylaxis: SCDs, hold chemoprophylaxis given #1. #11. CODE status: Patient does not have HCPOA nor LW in place. Discussed CODE status at length including difference between FULL code, DNR-CCA and DNR-CC status. Following discussions about the differences in these status, requested Full Code status. Advanced Care Planning Face to Face Time: 16 minutes. Charges/Coding Visit Charges Inpatient E&M: 77166 Init Hosp L3 Procedures Hospitalists Procedures: 54292 Advncd Care Plan 30 Min
[2022-07-28 02:27] LABS: Magnesium 2.3 mg/dL (1.6-2.6); Phosphorus 4.1 mg/dL (2.5-4.9)
[2022-07-28 02:28] LABS: Lactic Acid 0.7 mmol/L (0.4-1.9)
[2022-07-28] MEDS: metroNIDAZOLE 500 MG/100 ML BAG 100 MG IV (03:00)
[2022-07-28] MEDS: 0.9% Normal Saline 1,000 ML 100 ML IV (04:11)
[2022-07-28] MEDS: Carvedilol 12.5 MG Tablet PO ×2 (04:13→18:14)
[2022-07-28] MEDS: Acetaminophen 325 MG Tablet 650 MG PO ×2 (04:13→22:12)
[2022-07-28] MEDS: hydrALAZINE 25 MG Tablet PO ×3 (04:13→22:12)
[2022-07-28] MEDS: amLODIPine 5 MG Tablet PO ×2 (04:13→12:15)
[2022-07-28 06:04] LABS: Absolute Lymphocyte Count 1.45 X10^3/uL (0.83-4.51); Absolute Neutrophil Count 3.3 X10^3/uL (2.0-7.7); Basophil# 0.04 X10^3/uL; Basophil% 0.7 % (0-1); Eosinophil# 0.11 X10^3/uL; Hematocrit 30.4 % (37-47); Hemoglobin 9.2 g/dL (12.0-15.0); Lymphocyte # 1.45 X10^3/ul (0.83-4.51); Lymphocyte % 26.5 % (19-41); Mean Corp Hgb Conc 30.3 g/dL (32-36); Mean Corpuscular Hgb 29.7 pg (27.0-32.0); Mean Corpuscular Volume 98.1 fL (81-99); Mean Platelet Vol. 9.5 fl (6.2-12.0); Monocyte# 0.56 X10^3/uL; Monocyte% 10.2 % (0-10); NRBC Flagged by Analyzer 0.9 % (0-5); Neutrophil # 3.26 X10^3/uL (2.7-7.7); Neutrophil % 59.5 % (47-70); Platelet Count 173 K/mm3 (150-450); RBC Distribution Width CV 14.4 % (11.6-14.6); RBC Distribution Width SD 50.2 fl (35.1-43.9); White Blood Count 5.5 K/mm3 (4.4-11.0)
[2022-07-28 06:40] LABS: Bedside Glucose 92 mg/dL (74-106)
[2022-07-28 08:07] LABS: ALB/GLOB Ratio 0.6 RATIO (0.9-2.4); AST(SGOT) 24 U/L (15-37); Alanine Aminotransfer ALT/SGPT 27 U/L (13-56); Albumin, Serum 2.2 g/dL (3.2-5.0); Alkaline Phosphatase 80 U/L (45-117); Anion Gap 9 (5-15); BUN 45 mg/dL (7-18); BUN/Creat Ratio 5.4 RATIO (10-20); Chloride 110 mmol/L (98-107); Creatinine, Serum 8.33 mg/dL (0.55-1.02); EST Glomerular Filtration Rate 5 mL/min (>60); Est Glom Filt Rate - Afr Amer 6 mL/min (>60); Estimated Creatinine Clearance 5.15 ml/min; Globulin 3.7 g/dL (2.2-4.2); Glucose 101 mg/dL (74-106); Potassium 4.4 mmol/L (3.5-5.1); Protein, Total 5.9 g/dL (6.4-8.2); Sodium Level 143 mmol/L (136-145)
[2022-07-28 08:38] LABS: Hemoglobin A1c 4.7 % (3.8-5.6)
--- NOTE | 2022-07-28 10:11 | PCM.PN.HOSP ---
Subjective Subjective Follow-up on acute GI bleed, oden-colitis: Patient seen and examined. She denied having any diarrhea or bloody stools. She denied any abdominal pain. Patient's blood pressure is elevated. Denied any dizziness or palpitation. She is on 3 L of oxygen which is her chronic oxygen. Objective Data Objective Data Vital Signs: Vital Signs Temp Pulse Resp BP Pulse Ox O2 Del Method O2 Flow Rate 98.1 F 79 16 146/70 H 100 Nasal Cannula 3 07/28/22 05:46 07/28/22 05:46 07/28/22 05:46 07/28/22 05:46 07/28/22 05:46 07/28/22 07:45 07/28/22 07:45 Oxygen Flow Rate (L/min) 3 Oxygen Delivery Method Nasal Cannula Weight: 81.1 kg Body Mass Index (BMI) 33.6 Intake & Output: Intake and Output for Last 24 Hours 07/26/22 07/27/22 07/28/22 23:59 23:59 23:59 Intake Total 1410 / 1410 Balance 1410 / 1410 Lab / Micro Data Result Diagrams: 07/28/22 05:45 07/28/22 05:45 Labs: Laboratory Results - last 24 hr 07/27/22 23:50: WBC 6.9, RBC 4.04 L, Hgb 12.0, Hct 39.1, MCV 96.8, MCH 29.7, MCHC 30.7 L, RDW Std Deviation 50.0 H, RDW Coeff of Dottie 14.3, Plt Count 225, MPV 9.1, Immature Gran % (Auto) 1.000 H, Neut % (Auto) 62.3, Lymph % (Auto) 23.7, [place] % (Auto) 9.5, Eos % (Auto) 2.9, Baso % (Auto) 0.6, Absolute Neuts (auto) 4.3, Absolute Lymphs (auto) 1.64, Nucleated RBC % 0.6 07/27/22 23:50: PT 12.5, INR 1.0, APTT 31.1 07/27/22 23:50: Sodium 143, Potassium 4.7, Chloride 108 H, Carbon Dioxide 26.0, Anion Gap 9, BUN 44 H, Creatinine 8.23 H*, Estim Creat Clear Calc 5.21, Est GFR (MDRD) Af Amer 6 L, Est GFR (MDRD) Non-Af 5 L, BUN/Creatinine Ratio 5.3 L, Glucose 141 H, Calcium 9.0, Total Bilirubin 0.40, AST 39 H, ALT 38, Alkaline Phosphatase 104, Total Protein 7.8, Albumin 2.7 L, Globulin 5.1 H, Albumin/Globulin Ratio 0.5 L, Lipase 314 07/27/22 23:50: Phosphorus 4.1, Magnesium 2.3 07/28/22 01:39: Lactic Acid 0.7 07/28/22 05:45: WBC 5.5, RBC 3.10 L, Hgb 9.2 L, Hct 30.4 L, MCV 98.1, MCH 29.7, MCHC 30.3 L, RDW Std Deviation 50.2 H, RDW Coeff of Dottie 14.4, Plt Count 173, MPV 9.5, Immature Gran % (Auto) 1.100 H, Neut % (Auto) 59.5, Lymph % (Auto) 26.5, [place] % (Auto) 10.2 H, Eos % (Auto) 2.0, Baso % (Auto) 0.7, Absolute Neuts (auto) 3.3, Absolute Lymphs (auto) 1.45, Nucleated RBC % 0.9 07/28/22 05:45: Sodium 143, Potassium 4.4, Chloride 110 H, Carbon Dioxide 24.0, Anion Gap 9, BUN 45 H, Creatinine 8.33 H*, Estim Creat Clear Calc 5.15, Est GFR (MDRD) Af Amer 6 L, Est GFR (MDRD) Non-Af 5 L, BUN/Creatinine Ratio 5.4 L, Glucose 101, Calcium 8.0 L, Total Bilirubin 0.30, AST 24, ALT 27, Alkaline Phosphatase 80, Total Protein 5.9 L, Albumin 2.2 L, Globulin 3.7, Albumin/Globulin Ratio 0.6 L 07/28/22 05:45: Hemoglobin A1c 4.7 07/28/22 06:22: POC Glucose 92 Micro: Microbiology 07/27/22 23:50 Stool C. difficile GDH Antigen & Toxins - Final 07/27/22 23:50 Stool C. difficile DNA Amplification - Final 07/27/22 23:50 Stool Enteric Bacteriology - Final 07/27/22 23:50 Stool Stool Occult Blood (SIMONE) - Final Occult Blood Positive Radiography Diagnostic Testing: Radiology Impression Abdomen/Pelvis CT 07/28/22 23:39 IMPRESSION: Possible mild diffuse colitis. No bowel obstruction. Nonspecific mild bilateral perinephric stranding with tiny nonobstructive stone within the right kidney measuring 1.2 mm. Remainder of abdominal viscera are unremarkable. Electronically Signed: Janeth Ochoa MD at 0:40 EST , Physical Exam Narrative Physical exam: General: Alert, Oriented x3, Cooperative, on 3 L of oxygen HEENT: Atraumatic Oral: Moist Mucosa Neck: Supple Lungs: Diminished to auscultation Cardiovascular: HS I+II, regular, no murmurs Abdomen: Bowel Sounds Present, Soft, Non Tender Extremities: No edema Skin: No rashes, No breakdown Neurological: Grossly intact Psych/Mental Status: Appropriate Assessment & Plan Assessment/Plan (1) Acute lower gastrointestinal bleeding: (2) Acute colitis: PLAN: Plan 1. Acute GI bleed secondary to colitis, probably ischemic Patient has had normal GI bleed since being here She is on IV Cipro and Flagyl, will discontinue Consult GI, aspirin on hold, continue IV PPI twice daily 2. ESRD on hemodialysis, missed dialysis yesterday, nephrology consulted Continue on sodium bicarbonate, PhosLo 3. Hypertension, blood pressures uncontrolled, increase amlodipine to 10 mg daily Continue on Coreg, hydralazine, continue to monitor blood pressure 4. Anemia, iron deficiency and anemia of chronic disease, hemoglobin now is 9.3, admitting hemoglobin 12.0 No more GI bleed, will repeat hemoglobin in a.m. Continue on oral iron 5. Type II DM, diet controlled, HbA1c is 4.7, will continue to monitor 6. Rest of chronic conditions including history of CVA/GERD/Asthma/chronic hypoxic respiratory failure secondary to COPD Continue PPI, aspirin on hold 7. DVT PPx- SCDs Charges/Coding Visit Charges Inpatient E&M: 83543 Subs Hosp L3
[2022-07-28] MEDS: Ferrous Sulfate 325 MG Tablet PO (10:35)
[2022-07-28] MEDS: hydrALAZINE 20 MG/ML Vial 10 MG IV (10:35)
[2022-07-28] MEDS: Sodium Bicarbonate 650 MG Tablet PO ×4 (10:35→22:12)
[2022-07-28] MEDS: 0.9% Saline Lock 10 ML Syringe IV ×3 (10:36→22:12)
[2022-07-28 11:40] LABS: Bedside Glucose 68 mg/dL (74-106)
[2022-07-28 12:17] LABS: Hematocrit 31.9 % (37-47)
[2022-07-28] MEDS: Calcium Acetate 667 MG Capsule 1334 MG PO ×2 (12:31→18:14)
[2022-07-28] MEDS: Atorvastatin Calcium 40 MG Tablet PO (22:12)
[2022-07-28 22:31] LABS: Bedside Glucose 114 mg/dL (74-106)
--- NOTE | 2022-07-28 23:39 | CT_ITS ---
STUDY: CT ABDOMEN AND PELVIS WITHOUT CONTRAST REASON FOR EXAM: Female, 66 years old. abdominal pain RADIATION DOSAGE (If Supplied By Facility): CTDIvol = ( 15.68 ) mGy, DLP = ( 795.20 ) mGycm TECHNIQUE: Transaxial images were obtained from the dome of the diaphragm to the symphysis pubis without oral contrast, and without intravenous contrast. Sagittal and coronal images were reconstructed. Individualized dose optimization techniques were used for this CT. COMPARISON: 08/27/2021. FINDINGS: The visualized lung bases are unremarkable. Normal cardiac size with coronary artery calcifications. Normal liver. Normal gallbladder and extrahepatic biliary system. Normal spleen. Normal pancreas. Normal bilateral adrenal glands. Mild bilateral perinephric stranding. Punctate stone measuring 1.2 mm in the upper pole of the right kidney. Otherwise normal right kidney. Normal left kidney. Normal visualized stomach. Normal small intestine. Borderline thickening of the wall throughout the colon with fluid within the lumen, cannot exclude diffuse colitis. There is non-visualization of the appendix. There is diffuse atherosclerotic calcification of the abdominal aorta, without a demonstrated aneurysm. Normal inferior vena cava. Normal retroperitoneum. Urinary bladder is decompressed. There is absence of the uterus consistent with a prior hysterectomy. Normal abdominal wall. There are diffuse degenerative changes of the visualized lumbar spine. CT/Abdomen/Pelvis without Cont IMPRESSION: Possible mild diffuse colitis. No bowel obstruction. Nonspecific mild bilateral perinephric stranding with tiny nonobstructive stone within the right kidney measuring 1.2 mm. Remainder of abdominal viscera are unremarkable. Electronically Signed: Janeth Ochoa MD at 0:40 EST ,
[2022-07-29] VITALS (8 sets, daily range): BP systolic 155–224; BP diastolic 52–74; PULSE 80–92; RESP 16–18; TEMP 37.2–37.6; O2SAT 95–100
[2022-07-29 05:33] LABS: Absolute Neutrophil Count 2.6 X10^3/uL (2.0-7.7); Basophil# 0.04 X10^3/uL; Basophil% 0.6 % (0-1); Eosinophil# 0.16 X10^3/uL; Eosinophils% 2.6 % (0-5); Hematocrit 33.2 % (37-47); Hemoglobin 9.7 g/dL (12.0-15.0); Lymphocyte % 38.5 % (19-41); Mean Corp Hgb Conc 29.2 g/dL (32-36); Mean Corpuscular Hgb 29.7 pg (27.0-32.0); Mean Corpuscular Volume 101.5 fL (81-99); Mean Platelet Vol. 9.8 fl (6.2-12.0); Monocyte# 0.96 X10^3/uL; Monocyte% 15.4 % (0-10); NRBC Flagged by Analyzer 0.8 % (0-5); Neutrophil % 41.8 % (47-70); Platelet Count 198 K/mm3 (150-450); RBC Distribution Width CV 15.2 % (11.6-14.6); RBC Distribution Width SD 53.4 fl (35.1-43.9); Red Blood Count 3.27 M/mm3 (4.2-5.4); White Blood Count 6.2 K/mm3 (4.4-11.0)
[2022-07-29 06:19] LABS: ALB/GLOB Ratio 0.6 RATIO (0.9-2.4); AST(SGOT) 31 U/L (15-37); Alanine Aminotransfer ALT/SGPT 30 U/L (13-56); Albumin, Serum 2.6 g/dL (3.2-5.0); Alkaline Phosphatase 86 U/L (45-117); Anion Gap 8 (5-15); BUN 48 mg/dL (7-18); BUN/Creat Ratio 4.8 RATIO (10-20); Calcium,Total 8.7 mg/dL (8.5-10.1); Chloride 109 mmol/L (98-107); EST Glomerular Filtration Rate 4 mL/min (>60); Est Glom Filt Rate - Afr Amer 5 mL/min (>60); Estimated Creatinine Clearance 4.25 ml/min; Globulin 4.3 g/dL (2.2-4.2); Glucose 89 mg/dL (74-106); Potassium 4.7 mmol/L (3.5-5.1); Protein, Total 6.9 g/dL (6.4-8.2); Sodium Level 141 mmol/L (136-145)
[2022-07-29] MEDS: hydrALAZINE 25 MG Tablet PO (06:49)
[2022-07-29 07:21] LABS: Bedside Glucose 98 mg/dL (74-106)
[2022-07-29] MEDS: Carvedilol 12.5 MG Tablet PO (07:53)
[2022-07-29] MEDS: amLODIPine 10 MG Tablet PO (07:53)
[2022-07-29] MEDS: Ferrous Sulfate 325 MG Tablet PO (07:53)
[2022-07-29] MEDS: Calcium Acetate 667 MG Capsule 1334 MG PO (07:56)
--- NOTE | 2022-07-29 09:20 | CON.PCM.RE_ITS ---
Assessment & Plan Assessment/Plan (1) ESRD (end stage renal disease) on dialysis: PLAN: The patient normally dialyzes on TTS schedule at [facility]. She is followed there by my partner, Dr. Gaytan. The patient did miss dialysis on 07/27/2022. However, she appears to be euvolemic. There is no hyperkalemia or acidosis. From my standpoint, the patient can be discharged and follow-up with her usual dialysis treatment tomorrow at outpatient kidney center. See below for my concern regarding her BP. Nephrology plan will be discussed with Dr. Alonzo, hospitalist. (2) Hypertension: QUALIFIERS: Hypertension type: essential hypertension Qualified Code(s): I10 - Essential (primary) hypertension PLAN: BP is high today. Predialysis BP usually runs around 170/80 per my review of dialysis record. Unusually high BP may be due to missing BP medication when she had abdominal cramping or if she was NPO. Will try to get SBP down at least below 190 mmHg before discharge. I will discussed with Dr. Alonzo. (3) Acute lower gastrointestinal bleeding: PLAN: The patient will be scheduled for outpatient colonoscopy per my discussion with hospitalist. Hemoglobin has been stable. We will continue BHAVIN for anemia in dialysis center. HPI Consult Data Date of Consult: 07/29/22 HPI Narrative Reason for Consultation: ESRD HPI Narrative: NATALI KINSEY, is a 66-year-old woman with past history of ESRD, type 2 diabetes mellitus, hypertension, stroke, asthma, and rheumatoid arthritis who presented to the hospital on 07/28/2022 with diarrhea, lower abdominal pain and hematochezia. Nephrology is asked to see the patient because of ESRD and for dialysis management. The patient usually dialyzes at [facility] on TTS schedule. She missed dialysis on 07/27/2022 because of abdominal cramping. The patient denies current chest pain, shortness of breath at rest, nausea, vomiting or further diarrhea. Abdominal pain is improved. She has been seen by turn supervisor, and she will be set up for outpatient colonoscopy. The patient does use home oxygen although the requirement has not increased during this admission. [facility] Medical History (Updated 07/29/22 @ 09:[address] Jelani Allison MD) Acute and chronic respiratory failure with hypoxia Ambulates with cane Anemia Asthma Cardiac dysrhythmia, unspecified Chest pain Chronic kidney disease, stage V requiring chronic dialysis Diabetes Easy bruising Edentulous ESRD (end stage renal disease) on dialysis Former smoker Gastric reflux High cholesterol HTN (hypertension) Hyponatremia Leg cramps NSTEMI, initial episode of care On home oxygen therapy PONV (postoperative nausea and vomiting) Post-menopausal Rheumatoid arthritis Shortness of breath on exertion SOB (shortness of breath) Stroke Type II diabetes mellitus Wears glasses Home Medications carvedilol 12.5 mg tablet (Coreg) 12.5 mg PO BID blood pressure 11/28/20 [ History Last Taken 07/26/22] hydralazine 25 mg tablet 25 mg PO TID #0 tabs 09/06/21 [Rx Last Taken 07/26/22] sodium bicarbonate 650 mg tablet 650 mg PO 4X/DAY #1 TAB 09/06/21 [Rx Last Taken 07/27/22] ascorbic acid (vitamin C) 500 mg capsule 500 mg PO DAILY #90 caps 11/28/21 [Rx Last Taken 07/26/22] atorvastatin 40 mg tablet 40 mg PO QHS #30 tabs 11/28/21 [Rx Last Taken 07/26/22] ferrous sulfate 325 mg (65 mg iron) tablet (FeroSul) 325 mg PO DAILY #90 tabs 11/28/21 [Rx Last Taken 07/27/22] pantoprazole 40 mg tablet,delayed release 40 mg PO DAILY #30 tabs 11/28/21 [Rx Last Taken 07/26/22] calcium acetate(phosphat bind) 667 mg capsule 2 cap PO TID supplement 03/07/22 [History Last Taken 07/27/22] acetaminophen 325 mg capsule (Tylenol) 650 mg PO Q4H PRN Pain 03/08/22 [History Last Taken 03/06/22] amlodipine 5 mg tablet 5 mg PO DAILY BP 03/08/22 [History Last Taken 07/27/22] hydrocodone-acetaminophen 5-325mg 5mg-325mg 1 tab PO Q8H PRN pain 3 days #10 tabs 06/13/22 [Rx Last Taken Unknown] multivitamin 1 tab PO DAILY #90 tabs 07/12/22 [Rx Last Taken 07/27/22] Allergy/AdvReac Type Severity Reaction Status Date / Time ceftriaxone Allergy Severe Rash Verified 07/27/22 22:49 vancomycin Allergy Severe Rash Verified 07/27/22 22:49 Penicillins Allergy Swelling Verified 07/27/22 22:49 oxycodone HCl [From Percocet] AdvReac Itching Verified 07/27/22 22:49 Family History Mother Hypertension Emphysema/COPD Sister Hypertension Surgical History H/O: hysterectomy History of arteriovenostomy for renal dialysis History of eye surgery History of surgery knee scope S/P arteriovenous (AV) fistula creation Social History Smoking Status: Former smoker alcohol intake: current details: 1 per week substance use type: does not use what type of physical activity do you participate in: none ROS ROS Narrative 06/24 ROS was done. Otherwise noncontributory. Physical Exam Narrative General: Alert and oriented x3, no apparent distress. HEENT: Normocephalic, atraumatic. Mucous membrane moist erythema, PERRLA, EOMI, hearing is intact. Neck: Supple, no JVD. Heart: Normal S1, S2. No rubs, murmurs or gallops. Lungs: Clear to auscultation bilaterally. Abdomen: Normal bowel sound, soft, nontender, no guarding or rebound. Extremities: No clubbing, cyanosis, or edema. Psychiatric: Normal mood and affect. Skin: No rash, skin is warm and dry. Neurologic: No focal neurologic deficits. Lab / Micro Data Result Diagrams: 07/29/22 04:30 07/29/22 04:30 Labs: Laboratory Results - last 24 hr 07/28/22 11:16: POC Glucose 68 L 07/28/22 12:04: Hgb 10.0 L, Hct 31.9 L 07/28/22 22:05: POC Glucose 114 H 07/29/22 04:30: WBC 6.2, RBC 3.27 L, Hgb 9.7 L, Hct 33.2 L, MCV 101.5 H, MCH 29.7, MCHC 29.2 L, RDW Std Deviation 53.4 H, RDW Coeff of Dottie 15.2 H, Plt Count 198, MPV 9.8, Immature Gran % (Auto) 1.100 H, Neut % (Auto) 41.8 L, Lymph % (Auto) 38.5, [place] % (Auto) 15.4 H, Eos % (Auto) 2.6, Baso % (Auto) 0.6, Absolute Neuts (auto) 2.6, Absolute Lymphs (auto) 2.40, Nucleated RBC % 0.8 07/29/22 04:30: Sodium 141, Potassium 4.7, Chloride 109 H, Carbon Dioxide 24.0, Anion Gap 8, BUN 48 H, Creatinine 10.10 H*, Estim Creat Clear Calc 4.25, Est GFR (MDRD) Af Amer 5 L, Est GFR (MDRD) Non-Af 4 L, BUN/Creatinine Ratio 4.8 L, Glucose 89, Calcium 8.7, Total Bilirubin 0.40, AST 31, ALT 30, Alkaline Phosphat ase 86, Total Protein 6.9, Albumin 2.6 L, Globulin 4.3 H, Albumin/Globulin Ratio 0.6 L 07/29/22 06:45: POC Glucose 98 Micro: Microbiology 07/27/22 23:50 Stool C. difficile GDH Antigen & Toxins - Final 07/27/22 23:50 Stool C. difficile DNA Amplification - Final
--- NOTE | 2022-07-29 10:46 | DS.PCM_ITS ---
Providers Date of Admission: 07/28/22 Date of Discharge: 07/29/22 Primary Care Physician: Dr. Prince Cummins, DO Consultations 07/28/22 03:26 Consult: Nephrology Routine Consulting Provider: Africa Gaytan Reason for Consult: ESRD on HD, admit w/ colitis EMERGENT Consult: No Notified: Yes Date Notified: 07/28/22 Time Notified: 04:08 Method of Notification: Answering Service 07/28/22 11:42 Consult: Gastroenterology Routine Consulting Provider: Elana [facility] Reason for Consult: Colitis EMERGENT Consult: No Notified: Yes Date Notified: 07/28/22 Time Notified: 11:42 Method of Notification: Verbal Method of Consult:: In-Person Comments:: talked with natalie Camp Reason For Visit: COLITIS, GI BLEED ASSOCIATED Diagnosis Discharge Diagnosis (1) ESRD (end stage renal disease) on dialysis: Status: Acute Code(s): N18.6 - End stage renal disease; Z99.2 - Dependence on renal dialysis (2) Hypertension: Status: Chronic Code(s): I10 - Essential (primary) hypertension Qualifiers: Hypertension type: essential hypertension Qualified Code(s): I10 - Essential (primary) hypertension (3) Acute lower gastrointestinal bleeding: Status: Acute Code(s): K92.2 - Gastrointestinal hemorrhage, unspecified (4) Acute colitis: Status: Acute Code(s): K52.9 - Noninfective gastroenteritis and colitis, unspecified Medications at Discharge Home Medications carvedilol 12.5 mg tablet (Coreg) 12.5 mg PO BID blood pressure 11/28/20 hydralazine 25 mg tablet 25 mg PO TID #0 tabs 09/06/21 sodium bicarbonate 650 mg tablet 650 mg PO 4X/DAY #1 TAB 09/06/21 ascorbic acid (vitamin C) 500 mg capsule 500 mg PO DAILY #90 caps 11/28/21 atorvastatin 40 mg tablet 40 mg PO QHS #30 tabs 11/28/21 ferrous sulfate 325 mg (65 mg iron) tablet (FeroSul) 325 mg PO DAILY #90 tabs 11/28/21 pantoprazole 40 mg tablet,delayed release 40 mg PO DAILY #30 tabs 11/28/21 calcium acetate(phosphat bind) 667 mg capsule 2 cap PO TID supplement 03/07/22 acetaminophen 325 mg capsule (Tylenol) 650 mg PO Q4H PRN Pain 03/08/22 hydrocodone-acetaminophen 5-325mg 5mg-325mg 1 tab PO Q8H PRN pain 3 days #10 tabs 06/13/22 multivitamin 1 tab PO DAILY #90 tabs 07/12/22 amlodipine 10 mg tablet 10 mg PO DAILY #30 tabs 07/29/22 Hospital Course Operations None Procedures - (CT of the abdomen pelvis) Summary of Care Provided Minutes Spent on Discharge: 32 Hospital Course: Ms. Chaidez is a 66-year-old -[place] female who presented to the emergency department was coming hospital on 07/27/2022 with a chief complaint of left lower quadrant abdominal pain and occasional bright red blood streaking in her stool. She had some associated nausea without vomiting and she had not been taking her blood pressure medicines because of the nausea on the day of presentation emergency department. She reported that abdominal pain was cramping in nature and more severe prior to the onset of loose stools. She m issed dialysis on 07/27/2022 secondary to feeling poorly. Work-up in the ED included T99.7, heart rate 94, BP initially 256/93 with most recent repeat 222/82 reported that she did not take any of her hypertensive medications on day of presentation, respiratory rate 15, 94% on room air, CBC with WC 6.9, hemoglobin 12, platelet 225 with increased immature granulocytes, unremarkable coags, CMP with chloride 108, BUN/10 and 44/8.23, glucose 141, AST 39 otherwise hepatic profile not marked appearing, lipase 314, CT abdomen pelvis with mild diffuse colitis with no bowel obstruction with mild nonspecific bilateral perinephric stranding with tiny nonobstructive stone within the right kidney measuring 1.[address], enteric pathogen stool pending.? In the ED patient administered Zofran 4 mg IV x1, hydralazine 20 mg IV x1 and a 1 L normal saline bolus, cipro IV, flagyl IV. The case was reviewed with gastroenterology and they reported that she has had a colonoscopy within the last year and diverticulosis in the sigmoid colon, descending colon and at the splenic flexure was identified at that time. This study was done on 08/30/2021. Gastroenterology believes that she may have an acute GI bug with a diverticular bleed and since her hemoglobin has stabilized and her diarrhea has resolved that she will be able to go home with outpatient follow-up in 2 weeks in his office. Hemoglobin on the day of discharge was 9.7 from 9.2 on the day of discharge and as noted she has not had dialysis since last . She is also evaluated by nephrology and is due for dialysis on Friday of this week 07/30/2022. It was felt that there was no urgent need for dialysis prior to discharge and that she may discharge home today with follow-up dialysis tomorrow. Her blood pressure was noted to be elevated and her amlodipine was increased from 5 to 10 mg. Her blood pressures had stabilized with the change in medications and her blood pressure at the time of discharge was 163/52. Nephrology felt she was stable for discharge with his blood pressure given the fact that she is due for dialysis tomorrow. At the time of discharge she was eating and drinking without any difficulties. She was discharged home in stable condition on 07/29/2022. Discharge diagnoses: Rectal bleeding secondary to suspected diverticular bleed-resolved Macrocytic anemia-stable Hypertension Diarrhea-resolved ESRD History of iron deficiency DM-2 History of stroke RSD GERD History of asthma Hyperlipidemia History of tobacco abuse Physical Exam Narrative Patient states she is feeling much better. No further diarrhea. No rectal bleeding. Anxious to go home if possible. Const alert, oriented x3, no apparent distress and well nourished Constitutional Narrative: Upper middle-aged, obese, -Australian female, lying in bed, appears well and nontoxic General Appearance: cooperative, comfortable, well kempt and well developed Orientation / Consciousness: awake, oriented to person, oriented to place and oriented to time Exam Limitations: no limitations Nutritional Appearance: obese HEENT normocephalic, head/scalp atraumatic, hearing grossly normal bilaterally and moist oral mucous membranes Eyes PERRL, EOMs intact bilaterally and conjunctivae normal Neck no lymphadenopathy and supple Neck Narrative: Trachea midline, no thyroid enlargement Resp normal respiratory effort, no retractions, no use of accessory muscles and clear to auscultation bilaterally Auscultation: Negative for crackles, rales, rhonchi or wheezes Cardio regular rate, regular rhythm, S1 normal heart sound, S2 normal heart sound, no murmurs, no rub, no gallops and no clicks GI normal to inspection, nondistended, normoactive bowel sounds, soft to palpation and non-tender Extremity no clubbing, cyanosis or edema Extremity Narrative: 2+ pedal pulses Skin no rashes or lesions noted, no wounds, skin turgor normal and no jaundice Neuro oriented x3, CN's II-XII intact bilaterally, moves all extremities and no focal motor deficits Speech: speech normal Psych affect normal Psych Narrative: Very pleasant and appropriately interactive Weight / BMI Weight Weight: 80.52 kg Body Mass Index (BMI) 33.6 ABG / Lab / Microbiology Data Result Diagrams: 07/29/22 04:30 07/29/22 04:30 Laboratory: Laboratory Results - last 24 hr 07/28/22 11:16: POC Glucose 68 L 07/28/22 12:04: Hgb 10.0 L, Hct 31.9 L 07/28/22 22:05: POC Glucose 114 H 07/29/22 04:30: WBC 6.2, RBC 3.27 L, Hgb 9.7 L, Hct 33.2 L, MCV 101.5 H, MCH 29.7, MCHC 29.2 L, RDW Std Deviation 53.4 H, RDW Coeff of Dottie 15.2 H, Plt Count 198, MPV 9.8, Immature Gran % (Auto) 1.100 H, Neut % (Auto) 41.8 L, Lymph % (Auto) 38.5, [place] % (Auto) 15.4 H, Eos % (Auto) 2.6, Baso % (Auto) 0.6, Absolute Neuts (auto) 2.6, Absolute Lymphs (auto) 2.40, Nucleated RBC % 0.8 07/29/22 04:30: Sodium 141, Potassium 4.7, Chloride 109 H, Carbon Dioxide 24.0, Anion Gap 8, BUN 48 H, Creatinine 10.10 H*, Estim Creat Clear Calc 4.25, Est GFR (MDRD) Af Amer 5 L, Est GFR (MDRD) Non-Af 4 L, BUN/Creatinine Ratio 4.8 L, Glucose 89, Calcium 8.7, Total Bilirubin 0.40, AST 31, ALT 30, Alkaline Phosphatase 86, Total Protein 6.9, Albumin 2.6 L, Globulin 4.3 H, [place] min/Globulin Ratio 0.6 L 07/29/22 06:45: POC Glucose 98 Microbiology: Microbiology 07/27/22 23:50 Stool C. difficile GDH Antigen & Toxins - Final 07/27/22 23:50 Stool C. difficile DNA Amplification - Final 07/27/22 23:50 Stool Enteric Bacteriology - Final 07/27/22 23:50 Stool Stool Occult Blood (SIMONE) - Final Occult Blood Positive D/C Instructions Discharge Diet: Low fat / Low cholesterol and Renal Diet Discharge Activity: Return to Normal Activity Return to work on: 07/31/22 Meaningful Use Info Meaningful Use Diagnoses (Choose all that apply): None applicable Discharge Plan Admission Admit Date/Time: 07/28/22 01:57 Primary Reason for Your Visit: Diarrhea/BRBPR Attending Provider: Shannan Alonzo Primary Care Provider: Prince Cummins Consulting Providers: Africa Gaytan ; Concepcion Lamb ; Cathy Carrizales Discharge Orders/Prescriptions Prescriptions: New amlodipine 10 mg Tablet 10 mg PO DAILY Qty: 30 0RF Continued carvedilol [Coreg] 12.5 mg tablet 12.5 mg PO BID Rx Instructions: must administer with a meal/food hydralazine 25 mg Tablet 25 mg PO TID Qty: 0 0RF sodium bicarbonate 650 mg Tablet 650 mg PO 4X/DAY Qty: 1 0RF calcium acetate(phosphat bind) 667 mg capsule 2 cap PO TID Label Comments: TAKE 2 CAPSULES BY MOUTH THREE TIMES DAILY WITH MEALS acetaminophen [Tylenol] 325 mg Capsule 650 mg PO Q4H PRN (Reason: Pain) hydrocodone-acetaminophen 5-325 mg tablet 1 tab PO Q8H PRN (Reason: pain) 3 Days Qty: 10 0RF ascorbic acid (vitamin C) 500 mg capsule 500 mg PO DAILY Qty: 90 1RF atorvastatin 40 mg tablet 40 mg PO QHS Qty: 30 0RF ferrous sulfate [FeroSul] 325 mg (65 mg iron) tablet 325 mg PO DAILY Qty: 90 3RF pantoprazole 40 mg tablet,delayed release (DR/EC) 40 mg PO DAILY Qty: 30 0RF multivitamin Tablet 1 tab PO DAILY Qty: 90 2RF Discontinued amlodipine 5 mg Tablet 5 mg PO DAILY Referrals / Follow Up: Prince Cummins DO [Primary Care Provider] - Within 2 Weeks Africa Gaytan MD [Med Staff - Consulting] - See Referral Note (As scheduled) FriendBebeto, [Med Staff - Active Staff] - Within 2 Weeks (call today or tomorrow to make appt) Disposition Disposition (needs filled in before D/C Order can be placed): Home, Self Care Charges/Coding Visit Charges Inpatient E&M: 34045 Disch Hosp
--- NOTE | 2022-07-29 11:25 | CASEMGMT ---
NIKKI LINARES Face to Face with patient for initial transition planning/care coordination assessment. RN VIJAY introduced self and role at [facility]. Patient sitting in chair, alert and oriented. Patient willing to participate in assessment and is able to answer all questions appropriately. Care providers, pharmacy, and demographics verified. Patient wishes to discharge home, denies need for home health at this time. Patient states she has no further needs or concerns at this time. CM to follow for discharge planning needs that may arise. PCP: [facility] Specialists: Lucila, systems programmer analyst; Friend, GI Preferred Pharmacy: [facility] Insurance: [employer] Prescription Benefit: yes Living Will/HPOA: none LNOK: grandson Living Arrangements: Patient lives with 23yo grandson and 17yo granddaughter in a single story duplex, 3 steps and railing to enter the home. Patient states she is independent at home. Transportation: Grandson DME/HHC: Patient states she has shower chair, raised toilet, cane, walker, grab bars, and home oxygen through [employer], 3lpm with ambulation with portability. Patient attends HD at [facility] at 12noon. Patient states she has VIJAY Cyr through [facility]. Disposition Plan: Patient to discharge home with family support and follow-up plans in place. Hawa MCCORMICK, RN, CM
--- NOTE | 2022-07-29 11:37 | PHA.DC.MR ---
Pharmacy Service has performed discharge medication reconciliation for this patient. The patient's discharge medication list was reviewed for discrepancies and discrepancies were resolved. Home Medications carvedilol 12.5 mg tablet (Coreg) 12.5 mg PO BID blood pressure 11/28/20 hydralazine 25 mg tablet 25 mg PO TID #0 tabs 09/06/21 sodium bicarbonate 650 mg tablet 650 mg PO 4X/DAY #1 TAB 09/06/21 ascorbic acid (vitamin C) 500 mg capsule 500 mg PO DAILY #90 caps 11/28/21 atorvastatin 40 mg tablet 40 mg PO QHS #30 tabs 11/28/21 ferrous sulfate 325 mg (65 mg iron) tablet (FeroSul) 325 mg PO DAILY #90 tabs 11/28/21 pantoprazole 40 mg tablet,delayed release 40 mg PO DAILY #30 tabs 11/28/21 calcium acetate(phosphat bind) 667 mg capsule 2 cap PO TID supplement 03/07/22 acetaminophen 325 mg capsule (Tylenol) 650 mg PO Q4H PRN Pain 03/08/22 hydrocodone-acetaminophen 5-325mg 5mg-325mg 1 tab PO Q8H PRN pain 3 days #10 tabs 06/13/22 multivitamin 1 tab PO DAILY #90 tabs 07/12/22 amlodipine 10 mg tablet 10 mg PO DAILY #30 tabs 07/29/22
== END 2022-07-29 13:15 | disposition home or self-care (01) | DRG 244 ==
LOC: ED 23:48 → MS3 07-28 03:22
PROVIDERS: Internal Medicine; Admitting Provider Family Medicine; Emergency Provider Emergency Medicine; PCP Family Medicine; Visit Provider Internal Medicine
DX: K92.2 Gastrointestinal hemorrhage, unspecified (principal); Z99.2 Dependence on renal dialysis; M06.9 Rheumatoid arthritis, unspecified; J44.9 Chronic obstructive pulmonary disease, unspecified; E11.22 Type 2 diabetes mellitus with diabetic chronic kidney disease; I12.0 Hypertensive chronic kidney disease with stage 5 chronic kidney disease or end stage renal disease; N18.6 End stage renal disease; J96.11 Chronic respiratory failure with hypoxia; D63.8 Anemia in other chronic diseases classified elsewhere; D50.9 Iron deficiency anemia, unspecified; E78.00 Pure hypercholesterolemia, unspecified; K21.9 Gastro-esophageal reflux disease without esophagitis; Z99.81 Dependence on supplemental oxygen; Z79.82 Long term (current) use of aspirin; Z87.891 Personal history of nicotine dependence; Z86.73 Personal history of transient ischemic attack (TIA), and cerebral infarction without residual deficits; K52.9 Noninfective gastroenteritis and colitis, unspecified; Z79.899 Other long term (current) drug therapy
CPT/HCPCS: 36415; 74176; 80053; 82274; 82962; 83036; 83605; 83690; 83735; 84100; 85014; 85018; 85025; 85610; 85730; 87040; 87493; 87506; 96361; 96365; 96367; 96375; 96376; 99221; 99251; 99285; A4216; G0378; G0463; J0744; J2405

== ENCOUNTER 2022-09-03 16:24 | Emergency (ER) | payer MEDICAID, SELFPAY ==
[2022-09-03 16:25] VITALS: BP 214/88; PULSE 75; RESP 16; TEMP 36.8; O2SAT 96; BMI 33.7
[2022-09-03 16:32] VITALS: BP 185/101
--- NOTE | 2022-09-03 16:49 | ED.VIS.BACK ---
HPI History of Present Illness Chief Complaint: Back Informant: patient Narrative Narrative: Patient complains of lower back pain mostly on the right side. Its been going on for about 2 or 3 weeks. She states it seems to be worse after she sits in a dialysis chair for 4 hours. She was there today and is just bothering her more. She denies numbness tingling or weakness. She does urinate a lot but states that its been chronic ever since dialysis. There is no change. No blood in the urine no dysuria. No change in bowel habits. No fevers or chills. She states she is eating and drinking fine. She states she has had this before. She states this is the same as what she had a few months ago. She states she gets it a few times a year. It is definitely worsened by motion or twisting or certain positions. She can get in other positions that seemed to make it better. Denies recent infections. Denies long-term anticoagulation. [facility] Medical History Acute and chronic respiratory failure with hypoxia Ambulates with cane Anemia Asthma Cardiac dysrhythmia, unspecified Chest pain Chronic kidney disease, stage V requiring chronic dialysis Diabetes Easy bruising Edentulous ESRD (end stage renal disease) on dialysis Former smoker Gastric reflux High cholesterol HTN (hypertension) Hypertension Hyponatremia Leg cramps NSTEMI, initial episode of care On home oxygen therapy PONV (postoperative nausea and vomiting) Post-menopausal Rheumatoid arthritis Shortness of breath on exertion SOB (shortness of breath) Stroke Type II diabetes mellitus Wears glasses Home Medications carvedilol 12.5 mg tablet (Coreg) 12.5 mg PO BID blood pressure 11/28/20 [History Last Taken 07/26/22] hydralazine 25 mg tablet 25 mg PO TID #0 tabs 09/06/21 [Rx Last Taken 07/26/22] sodium bicarbonate 650 mg tablet 650 mg PO 4X/DAY #1 TAB 09/06/21 [Rx Last Taken 07/27/22] ascorbic acid (vitamin C) 500 mg capsule 500 mg PO DAILY #90 caps 11/28/21 [Rx Last Taken 07/26/22] atorvastatin 40 mg tablet 40 mg PO QHS #30 tabs 11/28/21 [Rx Last Taken 07/26/22] ferrous sulfate 325 mg (65 mg iron) tablet (FeroSul) 325 mg PO DAILY #90 tabs 11/28/21 [Rx Last Taken 07/27/22] pantoprazole 40 mg tablet,delayed release 40 mg PO DAILY #30 tabs 11/28/21 [Rx Last Taken 07/26/22] calcium acetate(phosphat bind) 667 mg capsule 2 cap PO TID supplement 03/07/22 [History Last Taken 07/27/22] acetaminophen 325 mg capsule (Tylenol) 650 mg PO Q4H PRN Pain 03/08/22 [History Last Taken 03/06/22] hydrocodone-acetaminophen 5-325mg 5mg-325mg 1 tab PO Q8H PRN pain 3 days #10 tabs 06/13/22 [Rx Last Taken Unknown] multivitamin 1 tab PO DAILY #90 tabs 07/12/22 [Rx Last Taken 07/27/22] amlodipine 10 mg tablet 10 mg PO DAILY #30 tabs 07/29/22 [Rx Last Taken Unknown] hydrocodone-acetaminophen 5-325mg 5mg-325mg 1 tab PO Q6H PRN pain 3 days #10 tabs 09/03/22 [Rx Last Taken Unknown] Allergy/AdvReac Type Severity Reaction Status Date / Time ceftriaxone Allergy Severe Rash Verified 09/03/22 16:28 vancomycin Allergy Severe Rash Verified 09/03/22 16:28 Penicillins Allergy Swelling Verified 09/03/22 16:28 oxycodone HCl [From Percocet] AdvReac Itching Verified 09/03/22 16:28 Family History Mother Hypertension Emphysema/COPD Sister Hypertension Surgical History H/O: hysterectomy History of arteriovenostomy for renal dialysis History of eye surgery History of surgery knee scope S/P arteriovenous (AV) fistula creation Social History Smoking Status: Former smoker alcohol intake: current details: 1 per week substance use type: does not use what type of physical activity do you participate in: none ROS ROS ED Constitutional Constitutional ED: Denies chills, fever(s), subjective or sweats ENT ENT ED: Denies rhinorrhea Cardiovascular Cardiovascular: Denies chest pain or palpitations Respiratory/Chest Respiratory/Chest: Denies dyspnea or sputum Gastrointestinal Gastrointestinal: Denies abdominal pain, constipation, diarrhea, melena, nausea or vomiting Genitourinary Genitourinary ED: Reports urinary frequency; Denies dysuria or hematuria Musculoskeletal Musculoskeletal: Reports back pain; Denies arthralgias, myalgias or neck pain Integumentary Denies rash Neurologic Neurologic: Denies paresthesias or weakness Endocrine Endocrinology: Denies polydipsia Hematologic/Lymphatic Hematologic/Lymphatic: Denies easy bleeding, easy bruising or lymphadenopathy Allergic/Immunologic Allergic/Immunologic ED: Denies urticaria EXAM Physical Exam Const Vital Signs: 09/03/22 16:25 09/03/22 16:32 Temperature 98.2 F Temperature Source Temporal Pulse Rate 75 Respiratory Rate 16 Blood Pressure 214/88 H 185/101 H Blood Pressure Mean 130 129 Pulse Ox 96 Oxygen Delivery Method Room Air Positive well nourished and well developed General Appearance ED: well developed HEENT Reports moist mucous membranes Eyes General Eye ED: Negative for scleral icterus Neck no JVD Chest Wall Chest Narrative: Vas-Cath is in right upper chest looks clean and intact Resp normal respiratory effort and clear to auscultation bilaterally Cardio regular rate, regular rhythm and no murmurs GI normal to inspection, nondistended, normoactive bowel sounds and soft to palpation GI Narrative: No bruit or palpable swelling. Back/Spine normal to inspection Back/Spine Narrative: She has some right paraspinal tenderness in the lumbar area. Mostly at about L2. No skin changes. No vesicles. It is reproduced with motion and twisting. Percussion on the spinous process does not seem to bother her. Extremity normal to inspection Neuro Neuro Narrative: Patient awake alert. She has normal lower extremity strength. She can lift her legs off the bed very easily. Press down and pull up on her toes. She has strong quadriceps strength. Sensation is intact. Psych mental status grossly normal Skin no rashes or lesions noted MDM MDM MDM Narrative Medical decision making narrative: X-ray shows some mild scoliosis and DJD. No acute process. I went back and checked the patient. She states she feels much better and is moving well. Even though this is a patient with multiple chronic medical conditions, I do not think this needs further evaluation. This has been going on for 2 or 3 weeks without any other symptoms. She has no neurologic symptoms. She has no symptoms of infection or fever. She has had this before and states it is the same. I will get her a few days of pain meds and we did discuss reasons to return. Radiography Diagnostic Testing: Clinical Impression(s) from Imaging Studies Lumbar Spine X-Ray 09/03/22 17:05 IMPRESSION: Mild levoscoliosis with diffuse degenerative disc disease. MRI may be useful. Electronically Signed: Sonido Toro MD at 17:20 EST , See MDM Discharge Plan Triage Chief Complaint: Back ED Provider: Wilmer Gallagher Dx/Rx/DC Orders Clinical Impression: Lumbar pain Instructions: ED Back Pain (Acute or Chronic) Prescriptions: New hydrocodone-acetaminophen 5-325 mg tablet 1 tab PO Q6H PRN (Reason: pain) 3 Days Qty: 10 0RF No Action carvedilol [Coreg] 12.5 mg tablet 12.5 mg PO BID Rx Instructions: must administer with a meal/food hydralazine 25 mg Tablet 25 mg PO TID Qty: 0 0RF sodium bicarbonate 650 mg Tablet 650 mg PO 4X/DAY Qty: 1 0RF calcium acetate(phosphat bind) 667 mg capsule 2 cap PO TID Label Comments: TAKE 2 CAPSULES BY MOUTH THREE TIMES DAILY WITH MEALS acetaminophen [Tylenol] 325 mg Capsule 650 mg PO Q4H PRN (Reason: Pain) hydrocodone-acetaminophen 5-325 mg tablet 1 tab PO Q8H PRN (Reason: pain) 3 Days Qty: 10 0RF amlodipine 10 mg Tablet 10 mg PO DAILY Qty: 30 0RF ascorbic acid (vitamin C) 500 mg capsule 500 mg PO DAILY Qty: 90 1RF atorvastatin 40 mg tablet 40 mg PO QHS Qty: 30 0RF ferrous sulfate [FeroSul] 325 mg (65 mg iron) tablet 325 mg PO DAILY Qty: 90 3RF pantoprazole 40 mg tablet,delayed release (DR/EC) 40 mg PO DAILY Qty: 30 0RF multivitamin Tablet 1 tab PO DAILY Qty: 90 2RF Primary Care Provider: Prince Cummins Referrals: Prince Cummins, DO [Primary Care Provider] - 3-5 Days if not improving Disposition Disposition: Home, Self Care
--- NOTE | 2022-09-03 17:05 | RAD_ITS ---
STUDY: X-RAY - LUMBAR SPINE REASON FOR EXAM: Female, 67 years old. pain TECHNIQUE: 2 view(s) of the lumbar spine were obtained. COMPARISON: None FINDINGS: Normal lumbar lordosis. Mild levoscoliosis centered at L2. There is a normal alignment of the vertebrae. There is multilevel endplate spondylosis of the lumbar vertebrae. There is multi-level degenerative disc disease with multi-level disc space narrowing. Facet hypertrophy in the lower lumbar spine. The soft tissue structures are unremarkable. RAD/Lumbar Spine 2 or 3 Views IMPRESSION: Mild levoscoliosis with diffuse degenerative disc disease. MRI may be useful. Electronically Signed: Sonido Toro MD at 17:20 EST ,
[2022-09-03] MEDS: HYDROcodone Bitartrate/Apap 5/325 Tablet PO (17:10)
== END 2022-09-03 18:52 | disposition home or self-care (01) ==
PROVIDERS: Emergency Provider Emergency Medicine; PCP Family Medicine; Visit Provider Emergency Medicine
DX: M54.50 Low back pain, unspecified (principal); Z99.2 Dependence on renal dialysis; N18.6 End stage renal disease; I25.2 Old myocardial infarction; Z87.891 Personal history of nicotine dependence; Z86.73 Personal history of transient ischemic attack (TIA), and cerebral infarction without residual deficits
CPT/HCPCS: 72100; 99284

== ENCOUNTER → 2022-09-11 | Outpatient (CLI) | payer MEDICAID, SELFPAY ==
[2022-09-11 16:43] LABS: Absolute Lymphocyte Count 1.66 X10^3/uL (0.83-4.51); Absolute Neutrophil Count 2.1 X10^3/uL (2.0-7.7); Basophil# 0.04 X10^3/uL; Basophil% 0.9 % (0-1); Eosinophil# 0.08 X10^3/uL; Eosinophils% 1.9 % (0-5); Hematocrit 41.8 % (37-47); Hemoglobin 13.1 g/dL (12.0-15.0); Lymphocyte # 1.66 X10^3/ul (0.83-4.51); Lymphocyte % 38.6 % (19-41); Mean Corp Hgb Conc 31.3 g/dL (32-36); Mean Corpuscular Hgb 29.8 pg (27.0-32.0); Mean Platelet Vol. 10.1 fl (6.2-12.0); Monocyte# 0.44 X10^3/uL; Monocyte% 10.2 % (0-10); NRBC Flagged by Analyzer 0 % (0-5); Neutrophil # 2.08 X10^3/uL (2.7-7.7); Neutrophil % 48.4 % (47-70); Platelet Count 218 K/mm3 (150-450); RBC Distribution Width CV 14.8 % (11.6-14.6); RBC Distribution Width SD 52.4 fl (35.1-43.9); White Blood Count 4.3 K/mm3 (4.4-11.0)
== END | disposition home or self-care (01) ==
LOC: BIMLAB 15:48
PROVIDERS: PCP Family Medicine; Referring Provider Family Medicine; Visit Provider Family Medicine
DX: D64.9 Anemia, unspecified (principal)
CPT/HCPCS: 85025

== ENCOUNTER 2022-09-19 11:19 | Inpatient (IN) | payer MEDICAID, SELFPAY ==
[2022-09-19] VITALS (17 sets, daily range): BP systolic 160–207; BP diastolic 45–181; PULSE 69–95; RESP 16–20; TEMP 36.2–37.2; O2SAT 93–100; BMI 32.3; BMI 31.6
--- NOTE | 2022-09-19 11:22 | CT_ITS ---
STUDY: CT HEAD STROKE PROTOCOL W/O CONTRAST INJECTION REASON FOR EXAM: Female, 67 years old. Neuro deficit, acute, stroke suspected RADIATION DOSAGE (If Supplied By Facility): CTDIvol = ( ) mGy, DLP = ( ) mGycm TECHNIQUE: Transaxial CT imaging of the brain was performed without administration of intravenous contrast material. Individualized dose optimization techniques were used for this CT. COMPARISON: Head CT dated September 05, 2021 FINDINGS: Normal soft tissue structures. Normal calvarium. There is mild cerebral atrophy with widening of the extra-axial spaces and ventricular dilatation. There are areas of decreased attenuation within the white matter tracts of the supratentorial brain, consistent with microvascular disease changes. Chronic volume loss, hypodensity, and calcification in the inferior and posterior aspect of the right parietal lobe redemonstrated, consistent with sequela of prior infarction. Normal basal ganglia and thalami. Normal brainstem. Normal cerebellum. There is no intracranial hemorrhage. There are no findings of an acute ischemic infarction. Normal visualized paranasal sinuses. ASPECT score: 10 CT/STROKE Brain/Head without Cont IMPRESSION: 1. Old right parietal lobe infarct and related changes 2. Chronic involutional and ischemic changes of the bilateral cerebral hemispheres. 3. No visualized acute process by CT. N.B. : The above Results were Read Back by Rashard Sierra MD to Darius Young AA, and understanding confirmed on 09/19/2022 11:52:53 (ET). Electronically Signed: Rashard Sierra MD at 11:53 EST ,
--- NOTE | 2022-09-19 11:22 | EKG12_ITS ---
Test Reason : POSS STROKE Blood Pressure : / mmHG Vent. Rate : 075 BPM Atrial Rate : 075 BPM P-R Int : 180 ms QRS Dur : 074 ms QT Int : 392 ms P-R-T Axes : 050 075 038 degrees QTc Int : 437 ms Normal sinus rhythm Septal infarct , age undetermined Abnormal ECG Confirmed by SRIKANTH PIZARRO, RENE ([id number]), news video editor ADRIÁN BURRIS ([id number]) on 09/23/2022 10:30:12 AM Referred By: Confirmed By:JHONY DUKE MD
--- NOTE | 2022-09-19 11:24 | ED.VIS.STROK ---
HPI History of Present Illness Chief Complaint: Stroke Alert Informant: patient Narrative Narrative: Patient brought in by EMS from dialysis center for concerns of stroke symptoms. Patient awakened at 5 AM states around 7 AM noted double vision. Headaches for the past 2 days. No current headaches. She went to dialysis, reported it was stopped due to noting weakness left side with left facial droop. She had a stroke 5 years ago with no residual deficits. She been dialysis for the past 2 years on Tuesdays and Saturdays. She has no missed dialysis. She still makes a lot of urine per patient. She is right-hand dominant. She reported noticing weakness left arm. Blood glucose 114 per EMS. [facility] Medical History Acute and chronic respiratory failure with hypoxia Ambulates with cane Anemia Asthma Cardiac dysrhythmia, unspecified Chest pain Chronic kidney disease, stage V requiring chronic dialysis Diabetes Easy bruising Edentulous ESRD (end stage renal disease) on dialysis Former smoker Gastric reflux High cholesterol HTN (hypertension) Hypertension Hyponatremia Leg cramps NSTEMI, initial episode of care On home oxygen therapy PONV (postoperative nausea and vomiting) Post-menopausal Rheumatoid arthritis Shortness of breath on exertion SOB (shortness of breath) Stroke Type II diabetes mellitus Wears glasses Home Medications carvedilol 12.5 mg tablet (Coreg) 12.5 mg PO 0600,1600 blood pressure 11/28/20 [History Last Taken 09/19/22] calcium acetate(phosphat bind) 667 mg capsule 2 cap PO 0600,1200,1600 supplement 03/07/22 [History Last Taken 09/19/22] acetaminophen 325 mg capsule (Tylenol) 650 mg PO Q4H PRN Pain 03/08/22 [History Last Taken 03/06/22] hydrocodone-acetaminophen 5-325mg 5mg-325mg 1 tab PO Q6H PRN pain 3 days #10 tabs 09/03/22 [Rx Last Taken 09/19/22] amlodipine 10 mg tablet 10 mg PO 0600 BLOOD PRESSURE 09/19/22 [History Last Taken 09/19/22] ascorbic acid (vitamin C) 500 mg capsule 500 mg PO 0800 SUPPLEMENT 09/19/22 [History Last Taken 09/19/22] atorvastatin 40 mg tablet 40 mg PO 2000 CHOLESTEROL 09/19/22 [History Last Taken 09/18/22] azithromycin 250 mg tablet See Rx Instructions .Route .COMPLEX ANTIBIOTIC 09/19/22 [History Last Taken Unknown] cinacalcet 30 mg tablet 30 mg PO 0600 09/19/22 [History Last Taken 09/19/22] ferrous sulfate 325 mg (65 mg iron) tablet (FeroSul) 325 mg PO DAILY SUPPLEMENT 09/19/22 [History Last Taken 09/19/22] hydralazine 25 mg tablet 25 mg PO TID BLOOD PRESSURE 09/19/22 [History Last Taken 09/19/22] multivitamin (Daily-Caron tablet) 1 tab PO 0600 HEALTH MAINTENANCE 09/19/22 [History Last Taken 09/19/22] pantoprazole 40 mg tablet,delayed release 40 mg PO 0800 ACID REFLUX 09/19/22 [History Last Taken 09/19/22] sodium bicarbonate 650 mg tablet 650 mg PO DAILY HEARTBURN 09/19/22 [History Last Taken 09/19/22] Allergy/AdvReac Type Severity Reaction Status Date / Time ceftriaxone Allergy Severe Rash Verified 09/19/22 11:21 vancomycin Allergy Severe Rash Verified 09/19/22 11:21 Penicillins Allergy Swelling Verified 09/19/22 11:21 oxycodone HCl [From Percocet] AdvReac Itching Verified 09/19/22 11:21 Family History Mother Hypertension Emphysema/COPD Sister Hypertension Surgical History H/O: hysterectomy History of arteriovenostomy for renal dialysis History of eye surgery History of surgery knee scope S/P arteriovenous (AV) fistula creation Social History Smoking Status: Former smoker alcohol intake: current details: 1 per week substance use type: does not use what type of physical activity do you participate in: none ROS ROS ED Constitutional Constitutional ED: Denies chills, fever(s) or sweats Eyes Eyes: Reports diplopia; Denies change in vision ENT ENT ED: Denies dysphagia or sore throat Cardiovascular Cardiovascular: Denies chest pain, leg edema, palpitations or racing heartbeat Respiratory/Chest Respiratory/Chest: Denies cough, dyspnea or dyspnea on exertion Gastrointestinal Gastrointestinal: Denies abdominal pain, diarrhea, nausea or vomiting Genitourinary Genitourinary ED: Denies dysuria, hematuria or urinary frequency Musculoskeletal Musculoskeletal: Denies back pain, extremity pain or neck pain Integumentary Denies rash or wounds Neurologic Neurologic: Reports weakness; Denies headache(s) or paresthesias EXAM Physical Exam Const Vital Signs: 09/19/22 11:31 09/19/22 11:35 09/19/22 11:52 Temperature 97.6 F L 98.2 F Temperature Source Temporal Temporal Pulse Rate 85 79 73 Respiratory Rate 20 H 18 18 Blood Pressure 194/76 H 194/76 H 198/116 H Blood Pressure Mean 115 115 143 Pulse Ox 99 100 100 Oxygen Delivery Method Room Air Room Air Room Air Positive well nourished and well developed General Appearance ED: well developed and NAD HEENT Reports moist mucous membranes normocephalic and atraumatic Eyes PERRL, EOMs intact bilaterally and conjunctivae normal General Eye ED: Yes normal appearance of both eyes Neck no lymphadenopathy and supple General: Negative for tenderness Chest Wall Chest: Negative for tenderness Resp normal respiratory effort and normal air movement Effort and Inspection: symmetric chest movement; Negative for respiratory distress Cardio regular rate, regular rhythm and no murmurs Peripheral Pulses: pulses 2+ throughout GI normal to inspection, nondistended, normoactive bowel sounds and non-tender Palpation: Negative for guarding or rebound tenderness present Back/Spine no CVA tenderness and no thoracic nor lumbar tenderness Extremity normal to inspection General Extremety ED: Negative for edema or tenderness General Extremity: Negative for edema Neuro oriented x3 and no sensory deficits noted Neuro Narrative: Partial left cranial nerve palsy. NIH of 4 for left eye gaze Mild paresthesia left face and arm, left lip droop, mild left leg drift. Sensorium / Orientation: awake and alert Skin no rashes or lesions noted and no wounds NIHSS NIHSS Initial: 1a Level of Consciousness: 0 1b LOC Questions (Score 2 if aphasic/stupor): 0 1c LOC Commands (Only score 1st attempt): 0 2 Best Gaze (If aphasic, use reflexive mvmts.): 1 3 Visual: 0 4 Facial Palsy: 1 5 Motor Arm Right (UN = amputation/fusion): 0 5 Motor Arm Left: 0 6 Motor Leg Right: 0 6 Motor Leg Left: 1 7 Limb ataxia (Only + if out of proportion): 0 8 Sensory (Aphasia/stupor=0 or 1, coma=2): 1 9 Best Language: 0 10 Dysarthria (mute, coma=2, intubated=UN): 0 11 Extinction and Inattention (only scored if +): 0 Total Score: 4 MDM MDM MDM Narrative Medical decision making narrative: Patient seen on EMS arrival as a prehospital stroke alert. Quick exam noted left lip droop along with a partial left cranial nerve 6 palsy causing diplopia when looking all the way to the left side. Patient sent in for acute stroke orders, currently nearly 4.5 hours from onset of symptoms. With dialysis we will hold on CT angiogram at this time. We will alert stroke neurologist for evaluation in the ED. Patient evaluated by stroke neurologist Dr. Love, [facility] on reevaluation is a 4, decreased gaze left eye, left lip droop, left arm paresthesias, slight left leg drift. However during discussion she has been having double vision headache symptoms for the past week. There is concerns for stroke, however outside the window for any treatment options with symptom onset. Further imaging studies as an inpatient recommended. With her speech with slight dysarthria however states chronic since her stroke 5 years ago. She had left-sided deficits then. That resolved except for her speech. Patient has allergies to aspirin therefore recommended Plavix 75 mg daily per neurology. Bedside swallow will be performed prior to administration. 1152: Received call from radiologist, chronic findings on CT head. Was also reviewed by myself. Chest x-ray interpreted by myself read by radiology negative for any acute process. Labs noted elevated creatinine and BUN with her end-stage renal disease. Potassium 4.3. Will discuss with hospitalist service for admission. Lab Data Attestation: I reviewed the patient's lab results. Labs: Laboratory Results - last 24 hr 09/19/22 09/19/22 09/19/22 11:30 11:30 11:30 WBC 5.1 RBC 4.30 Hgb 12.6 Hct 40.1 MCV 93.3 MCH 29.3 MCHC 31.4 L RDW Std Deviation 46.6 H RDW Coeff of Dottie 13.7 Plt Count 234 MPV 10.3 Immature Gran % (Auto) 0.400 Neut % (Auto) 47.9 Lymph % (Auto) 33.6 Canadian % (Auto) 14.3 H Eos % (Auto) 2.8 Baso % (Auto) 1.0 Absolute Neuts (auto) 2.4 Absolute Lymphs (auto) 1.71 Nucleated RBC % 0 PT 12.2 INR 0.9 APTT 27.3 Sodium 140 Potassium 4.3 Chloride 101 Carbon Dioxide 33.0 H Anion Gap 6 BUN 31 H Creatinine 9.92 H* Estim Creat Clear Calc 4.27 Est GFR (MDRD) Af Amer 5 L Est GFR (MDRD) Non-Af 4 L BUN/Creatinine Ratio 3.1 L Glucose 112 H Calcium 9.7 Troponin I High Sens 15 Radiography Diagnostic Testing: Clinical Impression(s) from Imaging Studies Brain CT 09/19/22 11:22 IMPRESSION: 1. Old right parietal lobe infarct and related changes 2. Chronic involutional and ischemic changes of the bilateral cerebral hemispheres. 3. No visualized acute process by CT. N.B. : The above Results were Read Back by Rashard Sierra MD to Darius Young AA, and understanding confirmed on 09/19/2022 11:52:53 (ET). Electronically Signed: Rashard Sierra MD at 11:53 EST Reading Location ID and State: [id number] [id number] , Service support , ADDENDUM: 09/19/22 1200 IMPRESSION: 1. Old right parietal lobe infarct and related changes 2. Chronic involutional and ischemic changes of the bilateral cerebral hemispheres. 3. No visualized acute process by CT. N.B. : The above Results were Read Back by Rashard Sierra MD to Darius Young AA, and understanding confirmed on 09/19/2022 11:52:53 (ET). Electronically Signed: Rashard Sierra MD at 11:53 EST , EKG Initial EKG: Attestation: I personally reviewed and interpreted this EKG as follows: Comments: Sinus rate of 75, no ST changes. QTc 437. 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 [place] Discharge Date/Time: 09/19/22 15:00
--- NOTE | 2022-09-19 11:28 | ED.RN ---
[facility] reports the neurologist is on the phone with another stroke and then they will call in on the robot.
[2022-09-19 11:41] LABS: Absolute Lymphocyte Count 1.71 X10^3/uL (0.83-4.51); Absolute Neutrophil Count 2.4 X10^3/uL (2.0-7.7); Basophil# 0.05 X10^3/uL; Eosinophil# 0.14 X10^3/uL; Eosinophils% 2.8 % (0-5); Hematocrit 40.1 % (37-47); Hemoglobin 12.6 g/dL (12.0-15.0); Lymphocyte # 1.71 X10^3/ul (0.83-4.51); Lymphocyte % 33.6 % (19-41); Mean Corp Hgb Conc 31.4 g/dL (32-36); Mean Corpuscular Hgb 29.3 pg (27.0-32.0); Mean Corpuscular Volume 93.3 fL (81-99); Mean Platelet Vol. 10.3 fl (6.2-12.0); Monocyte# 0.73 X10^3/uL; Monocyte% 14.3 % (0-10); NRBC Flagged by Analyzer 0 % (0-5); Neutrophil # 2.44 X10^3/uL (2.7-7.7); Neutrophil % 47.9 % (47-70); Platelet Count 234 K/mm3 (150-450); RBC Distribution Width CV 13.7 % (11.6-14.6); RBC Distribution Width SD 46.6 fl (35.1-43.9); White Blood Count 5.1 K/mm3 (4.4-11.0)
[2022-09-19 11:54] LABS: International Normalized Ratio 0.9; Prothrombin Time (Protime)PT. 12.2 SECONDS (11.7-14.9)
[2022-09-19 11:55] LABS: Partial Thromboplast Time 27.3 Seconds (24.1-36.2)
--- NOTE | 2022-09-19 11:59 | CHAPLAIN ---
Type of Pastoral Visit ___ Initial Visit ___ Follow-up Visit ___ On-call Visit ___ General Patient Visit ___ Spiritual Assessment ___ Family Conference ___ Bereavement _x__ Rapid Response ___ Code Blue ___ Other (describe below) Pastoral Care Referral From ___ Patient ___ Family ___ Nurse ___ Physician ___ Drill Press Operator For Metal ___ Career Education Teacher _x__ Other (describe below) Sacrament/Intervention ___ Active listening ___ Anointing ___ Rastafarian ___ Bereavement ___ Communion ___ Analisa exploration ___ ___ Life review ___ Prayer ___ Reconciliation ___ Sacrament of Sick _x__ Supportive presence ___ Wedding ___ Other (describe below) Pastoral Comments responded to stroke alert; no family is present; patient is being evaluated by medical team; SW and commercial housekeeper are present as needed
[2022-09-19 12:04] LABS: Anion Gap 6 (5-15); BUN 31 mg/dL (7-18); BUN/Creat Ratio 3.1 RATIO (10-20); Calcium,Total 9.7 mg/dL (8.5-10.1); Chloride 101 mmol/L (98-107); Creatinine, Serum 9.92 mg/dL (0.55-1.02); EST Glomerular Filtration Rate 4 mL/min (>60); Est Glom Filt Rate - Afr Amer 5 mL/min (>60); Estimated Creatinine Clearance 4.27 ml/min; Glucose 112 mg/dL (74-106); Potassium 4.3 mmol/L (3.5-5.1); Sodium Level 140 mmol/L (136-145); Troponin-I HS 15 pg/mL (3.0-54.0)
[2022-09-19] MEDS: Clopidogrel Bisulfate 75 MG Tablet PO (12:18)
--- NOTE | 2022-09-19 12:25 | RAD_ITS ---
STUDY: X-RAY CHEST REASON FOR EXAM: Female, 67 years old. Neuro deficit, acute, stroke suspected TECHNIQUE: Single AP portable view of the chest. COMPARISON: MARCH 07, 2022 FINDINGS: Stable right central venous catheter. No consolidation is present. The lungs are clear and expanded. There is no demonstrated pleural abnormality. Normal size heart. Normal mediastinum and gaye. Normal visualized pulmonary arteries. There is atherosclerotic calcification of the aortic arch with tortuosity. Normal visualized thoracic spine. There is degenerative osteoarthritis of the bilateral shoulders. There is no demonstrated abnormality of the visualized soft tissue structures of the upper abdomen. RAD/Chest 1 View IMPRESSION: Degenerative changes, as described above. No demonstrated acute cardiopulmonary process. Electronically Signed: Rashard Sierra MD at 12:46 EST ,
--- NOTE | 2022-09-19 12:32 | PCM.HP.STD ---
HPI - General General Date of Admission: 09/19/22 Date of Service: 09/19/22 Chief Complaint: Strokelike symptoms -started at 5 AM on the day of admission HPI Narrative NATALI KINSEY, is a 67 F who presents with the above. Patient stated that she woke up with double vision, and a headache. Her granddaughter noticed that her eyes were not looking right. She was also noted to have left-sided weakness with facial droop. She went for dialysis and the dialysis staff sent her to here. She did not even have any dialysis. In the emergency room, she complained of double vision and weakness in the left side as well as facial droop. She was not a tPA candidate. Her admitting blood pressure was 194/76, heart rate 85, respiratory 20, temperature 97.6 F, oxygen sat 99% on room air. WBC count 4.2, hemoglobin 12.2, platelet count 216. His CMP was unremarkable. Patient had dialysis yesterday. Brain CT showed chronic involutional changes. Chest x-ray showed degenerative changes. CTA of the head and neck is unremarkable. [facility] Medical History Acute and chronic respiratory failure with hypoxia Ambulates with cane Anemia Asthma Cardiac dysrhythmia, unspecified Chest pain Chronic kidney disease, stage V requiring chronic dialysis Diabetes Easy bruising Edentulous ESRD (end stage renal disease) on dialysis Former smoker Gastric reflux High cholesterol HTN (hypertension) Hypertension Hyponatremia Leg cramps NSTEMI, initial episode of care On home oxygen therapy PONV (postoperative nausea and vomiting) Post-menopausal Rheumatoid arthritis Shortness of breath on exertion SOB (shortness of breath) Stroke Type II diabetes mellitus Wears glasses Home Medications carvedilol 12.5 mg tablet (Coreg) 12.5 mg PO 0600,1600 blood pressure 11/28/20 [History Last Taken 09/19/22] calcium acetate(phosphat bind) 667 mg capsule 2 cap PO 0600,1200,1600 supplement 03/07/22 [History Last Taken 09/19/22] acetaminophen 325 mg capsule (Tylenol) 650 mg PO Q4H PRN Pain 03/08/22 [History Last Taken 03/06/22] hydrocodone-acetaminophen 5-325mg 5mg-325mg 1 tab PO Q6H PRN pain 3 days #10 tabs 09/03/22 [Rx Last Taken 09/19/22] amlodipine 10 mg tablet 10 mg PO 0600 BLOOD PRESSURE 09/19/22 [History Last Taken 09/19/22] ascorbic acid (vitamin C) 500 mg capsule 500 mg PO 0800 SUPPLEMENT 09/19/22 [History Last Taken 09/19/22] atorvastatin 40 mg tablet 40 mg PO 2000 CHOLESTEROL 09/19/22 [History Last Taken 09/18/22] azithromycin 250 mg tablet See Rx Instructions .Route .COMPLEX ANTIBIOTIC 09/19/22 [History Last Taken Unknown] cinacalcet 30 mg tablet 30 mg PO 0600 09/19/22 [History Last Taken 09/19/22] ferrous sulfate 325 mg (65 mg iron) tablet (FeroSul) 325 mg PO DAILY SUPPLEMENT 09/19/22 [History Last Taken 09/19/22] hydralazine 25 mg tablet 25 mg PO TID BLOOD PRESSURE 09/19/22 [History Last Taken 09/19/22] multivitamin (Daily-Caron tablet) 1 tab PO 0600 HEALTH MAINTENANCE 09/19/22 [History Last Taken 09/19/22] pantoprazole 40 mg tablet,delayed release 40 mg PO 0800 ACID REFLUX 09/19/22 [History Last Taken 09/19/22] sodium bicarbonate 650 mg tablet 650 mg PO DAILY HEARTBURN 09/19/22 [History Last Taken 09/19/22] Allergy/AdvReac Type Severity Reaction Status Date / Time ceftriaxone Allergy Severe Rash Verified 09/19/22 11:21 vancomycin Allergy Severe Rash Verified 09/19/22 11:21 Penicillins Allergy Swelling Verified 09/19/22 11:21 oxycodone HCl [From Percocet] AdvReac Itching Verified 09/19/22 11:21 Family History Mother Hypertension Emphysema/COPD Sister Hypertension Surgical History H/O: hysterectomy History of arteriovenostomy for renal dialysis History of eye surgery History of surgery knee scope S/P arteriovenous (AV) fistula creation Social History Smoking Status: Former smoker alcohol intake: current details: 1 per week substance use type: does not use what type of physical activity do you participate in: none ROS ROS Narrative Constitutional: enies: Anorexia, Chills, Fever, Night Sweats, Weight Change Eyes: Denies: Blurred vision, Cataracts, Conjunctivae Inflammation, Pain, Redness, Vision Change HEENT: Denies: Difficulty Hearing, Difficulty Swallowing, Head Aches, Hearing Changes, Sinus Congestion, Sinus Drainage Cardiovascular: Denies: Chest Pain, Orthopnea, Palpitations Respiratory: Denies: Cough, Shortness of breath at rest, Sputum production Gastrointestinal: Denies: Abdominal Pain, Nausea, Vomiting Genitourinary: Denies: Dysuria Musculoskeletal: Denies: Joint Pain, Joint stiffness, Joint swelling, Joint Tenderness Skin: Denies: Rash, Wounds Neurological: See HPI Vital Signs Vital Signs Vital Signs: 09/19/22 11:31 09/19/22 11:35 09/19/22 11:52 Temperature 97.6 F L 98.2 F Temperature Source Temporal Temporal Pulse Rate 85 79 73 Respiratory Rate 20 H 18 18 Blood Pressure 194/76 H 194/76 H 198/116 H Blood Pressure Mean 115 115 143 Pulse Ox 99 100 100 Oxygen Delivery Method Room Air Room Air Room Air 09/19/22 12:16 Temperature 97.6 F L Temperature Source Temporal Pulse Rate 73 Respiratory Rate 18 Blood Pressure 199/54 H Blood Pressure Mean 102 Pulse Ox 98 Oxygen Delivery Method Room Air Weight Weight: 77.8 kg Body Mass Index (BMI) 32.3 Physical Exam Narrative Physical exam: General: Alert, Oriented x3, Cooperative HEENT: Atraumatic Oral: Moist Mucosa Neck: Supple Lungs: Clear to auscultation Cardiovascular: HS I+II, regular, no murmurs Abdomen: Bowel Sounds Present, Soft, Non Tender Extremities: No edema Skin: No rashes, No breakdown Neurological: Grossly intact except for slight left facial droop Psych/Mental Status: Appropriate Results Lab / Micro Data Result Diagrams: 09/20/22 05:15 09/20/22 05:15 Labs: Laboratory Results - last 24 hr 09/19/22 11:30: WBC 5.1, RBC 4.30, Hgb 12.6, Hct 40.1, MCV 93.3, MCH 29.3, MCHC 31.4 L, RDW Std Deviation 46.6 H, RDW Coeff of Dottie 13.7, Plt Count 234, MPV 10.3, Immature Gran % (Auto) 0.400, Neut % (Auto) 47.9, Lymph % (Auto) 33.6, Price % (Auto) 14.3 H, Eos % (Auto) 2.8, Baso % (Auto) 1.0, Absolute Neuts (auto) 2.4, Absolute Lymphs (auto) 1.71, Nucleated RBC % 0 09/19/22 11:30: PT 12.2, INR 0.9, APTT 27.3 09/19/22 11:30: Sodium 140, Potassium 4.3, Chloride 101, Carbon Dioxide 33.0 H, Anion Gap 6, BUN 31 H, Creatinine 9.92 H*, Estim Creat Clear Calc 4.27, Est GFR (MDRD) Af Amer 5 L, Est GFR (MDRD) Non-Af 4 L, BUN/Creatinine Ratio 3.1 L, Glucose 112 H, Calcium 9.7, Troponin I High Sens [address] 09/19/22 11:22 IMPRESSION: 1. Old right parietal lobe infarct and related changes 2. Chronic involutional and ischemic changes of the bilateral cerebral hemispheres. 3. No visualized acute process by CT. N.B. : The above Results were Read Back by Rashard Sierra MD to Darius Young AA, and understanding confirmed on 09/19/2022 11:52:53 (ET). Electronically Signed: Rashard Sierra MD at 11:53 EST , ADDENDUM: 09/19/22 1200 IMPRESSION: 1. Old right parietal lobe infarct and related changes 2. Chronic involutional and ischemic changes of the bilateral cerebral hemispheres. 3. No visualized acute process by CT. N.B. : The above Results were Read Back by Rashard Sierra MD to Darius Young AA, and understanding confirmed on 09/19/2022 11:52:53 (ET). Electronically Signed: Rashard Sierra MD at 11:53 EST , Assessment & Plan Assessment/Plan (1) TIA (transient ischemic attack): PLAN: Plan 1. Acute TIA/CVA, patient with history of prior CVA Will admit to PCU, stroke work-up, teleneurology consult from the ED recommended Plavix Check MRI, PT/OT/systolic and 2. Recent GI bleed, no more bleeding seen since the last admission, continue blood 3. ESRD on hemodialysis, Friday??Friday and 4. Hypertension, uncontrolled, will allow for permissive hypertension Continue on stroke protocol 5. Anemia, iron deficiency and anemia of chronic disease, continue on oral iron 6. Type II DM, diet controlled, continue to monitor on insulin sliding scale 7. Rest of chronic conditions including GERD/Asthma/chronic hypoxic respiratory failure secondary to COPD Continue PPI 8. DVT prophylaxis?heparin subcu Charges/Coding Visit Charges Inpatient E&M: 33123 Init Hosp L2
--- NOTE | 2022-09-19 13:05 | ED.RN ---
updates given to granddaughter and grandson's g/f.
--- NOTE | 2022-09-19 15:26 | CT_ITS ---
We are attempting to reach an attending provider to discuss findings. An addendum with communication details will be sent when the communication is complete. EXAM: CT ANGIOGRAPHY HEAD AND NECK WITH INTRAVENOUS CONTRAST CLINICAL INDICATION: neuro Neuro deficit, acute, stroke suspected cva TECHNIQUE: [facility]/head and neck CT angiography protocol performed with intravenous contrast. This CT exam was performed using one or more of the following dose reduction techniques: automated exposure control, adjustment of the mA and/or kV according to patient size, and/or use of iterative reconstruction technique. This report was created using [employer] report generation technology. MIP reconstructed images were created and reviewed. CONTRAST: IV 100mL [id number]-[id number] RADIATION DOSE: CTDIvol = 24.37 mGy, DLP = 591.45 mGy-cm COMPARISON: Ct head done earlier. CT head 11.07.19 09.05.21 FINDINGS: HEAD: RIGHT ANTERIOR CEREBRAL ARTERY: Unremarkable. No significant stenosis at the visualized segments. Anterior communicating artery is present. No aneurysm. RIGHT MIDDLE CEREBRAL ARTERY: Stable dense calcification of the proximal right M1 segment. No significant stenosis at the visualized segments. No aneurysm. RIGHT POSTERIOR CEREBRAL ARTERY: Unremarkable. No occlusion or significant stenosis. No aneurysm. RIGHT INTRACRANIAL INTERNAL CAROTID ARTERY: See below. RIGHT INTRACRANIAL VERTEBRAL ARTERY: Unremarkable. No significant stenosis. No dissection or occlusion. LEFT ANTERIOR CEREBRAL ARTERY: Unremarkable. No significant stenosis at the visualized segments. No aneurysm. LEFT MIDDLE CEREBRAL ARTERY: Unremarkable. No significant stenosis at the visualized segments. No aneurysm. LEFT POSTERIOR CEREBRAL ARTERY: Unremarkable. No occlusion or significant stenosis. No aneurysm. LEFT INTRACRANIAL INTERNAL CAROTID ARTERY: See below. LEFT INTRACRANIAL VERTEBRAL ARTERY: Unremarkable. No significant stenosis. No dissection or occlusion. BASILAR ARTERY: Unremarkable. No significant stenosis. No aneurysm. OTHER VASCULATURE: There is mild atherosclerotic plaque formation of the origin of the right internal carotid artery with less than 50% cross sectional diameter stenosis. ALL ABOVE CRITERIA BY NASCET. There is mild atherosclerotic plaque formation of the origin of the left internal carotid artery with less than 50% cross sectional diameter stenosis. ALL ABOVE CRITERIA BY NASCET. There is calcified plaque formation of the right cavernous carotid artery, with a mild stenosis (less than 50%). ALL ABOVE CRITERIA BY NASCET. NECK: RIGHT COMMON CAROTID ARTERY: Unremarkable. No significant stenosis. No dissection or occlusion. RIGHT EXTRACRANIAL INTERNAL CAROTID ARTERY: See above. RIGHT EXTERNAL CAROTID ARTERY: Unremarkable. No occlusion. RIGHT EXTRACRANIAL VERTEBRAL ARTERY: Unremarkable. No significant stenosis. No dissection or occlusion. LEFT COMMON CAROTID ARTERY: Unremarkable. No significant stenosis. No dissection or occlusion. LEFT EXTRACRANIAL INTERNAL CAROTID ARTERY: See above. LEFT EXTERNAL CAROTID ARTERY: There is calcified plaque formation of the left external carotid artery, with a mild stenosis (less than 50%). ALL ABOVE CRITERIA BY NASCET. No occlusion. LEFT EXTRACRANIAL VERTEBRAL ARTERY: Unremarkable. No significant stenosis. No dissection or occlusion. GREAT VESSELS OF AORTIC ARCH: There is calcified plaque formation of the left cavernous carotid artery, with a mild stenosis (less than 50%). ALL ABOVE CRITERIA BY NASCET. LUNG APICES: Unremarkable as visualized. HEAD and NECK: BONES/JOINTS: Unremarkable. No discrete lytic or blastic abnormalities. SOFT TISSUES: Unremarkable. OTHER FINDINGS: Critical finding called and case discussed. CAROTID STENOSIS REFERENCE USING NASCET CRITERIA: % ICA stenosis = (1 - narrowest ICA diameter/diameter of distal cervical ICA) x 100. Mild - <50% stenosis. Moderate - 50-69% stenosis. Severe - 70-94% stenosis. Near occlusion - 95-99% stenosis. Occluded - 100% stenosis. CT/STROKE CTA Head AND Neck W/Con IMPRESSION: 1. There is mild atherosclerotic plaque formation of the origin of the right internal carotid artery with less than 50% cross sectional diameter stenosis. ALL ABOVE CRITERIA BY NASCET. 2. There is mild atherosclerotic plaque formation of the origin of the left internal carotid artery with less than 50% cross sectional diameter stenosis. ALL ABOVE CRITERIA BY NASCET. 3. There is calcified plaque formation of the right cavernous carotid artery, with a mild stenosis (less than 50%). ALL ABOVE CRITERIA BY NASCET. 4. There is calcified plaque formation of the left cavernous carotid artery, with a mild stenosis (less than 50%). ALL ABOVE CRITERIA BY NASCET. 5. There is calcified plaque formation of the left external carotid artery, with a mild stenosis (less than 50%). ALL ABOVE CRITERIA BY NASCET. Electronically Signed: Mckinley Pollock MD at 16:20 EST ,
[2022-09-19] MEDS: Acetaminophen 325 MG Tablet 650 MG PO (18:54)
[2022-09-19] MEDS: Sodium Bicarbonate 650 MG Tablet PO ×2 (18:54→21:04)
[2022-09-19] MEDS: Calcium Acetate 667 MG Capsule 1334 MG PO (18:54)
--- NOTE | 2022-09-19 20:04 | DIALYSIS ---
Hemodialysis completed, 3 hours and 15 min. Patient came off 15 min early due to large clots in arterial and venous chambers. Blood was able to be returned but dialyzer was streaked. Fluid removed was 1500 ml. Patient tolerated well, however c/o headache and stomach ache during treatment.
[2022-09-19] MEDS: Atorvastatin Calcium 80 MG Tablet PO (21:04)
[2022-09-20] VITALS (14 sets, daily range): BP systolic 189–213; BP diastolic 56–81; PULSE 64–88; RESP 14–18; TEMP 36.8–37.3; O2SAT 93–99; BMI 31.6
--- NOTE | 2022-09-20 01:01 | NURSING ---
emergency documentation effective since 09/19/2021, 1900
[2022-09-20 05:40] LABS: Absolute Lymphocyte Count 1.54 X10^3/uL (0.83-4.51); Absolute Neutrophil Count 1.8 X10^3/uL (2.0-7.7); Basophil# 0.05 X10^3/uL; Basophil% 1.2 % (0-1); Eosinophil# 0.15 X10^3/uL; Eosinophils% 3.6 % (0-5); Hematocrit 38.2 % (37-47); Lymphocyte # 1.54 X10^3/ul (0.83-4.51); Lymphocyte % 37.1 % (19-41); Mean Corp Hgb Conc 31.4 g/dL (32-36); Mean Corpuscular Hgb 29.3 pg (27.0-32.0); Mean Corpuscular Volume 93.2 fL (81-99); Mean Platelet Vol. 9.9 fl (6.2-12.0); Monocyte# 0.59 X10^3/uL; Monocyte% 14.2 % (0-10); NRBC Flagged by Analyzer 0 % (0-5); Neutrophil % 43.4 % (47-70); Platelet Count 216 K/mm3 (150-450); RBC Distribution Width CV 13.7 % (11.6-14.6); RBC Distribution Width SD 46.8 fl (35.1-43.9); White Blood Count 4.2 K/mm3 (4.4-11.0)
[2022-09-20 06:33] LABS: ALB/GLOB Ratio 0.5 RATIO (0.9-2.4); AST(SGOT) 36 U/L (15-37); Alanine Aminotransfer ALT/SGPT 29 U/L (13-56); Albumin, Serum 2.8 g/dL (3.2-5.0); Alkaline Phosphatase 80 U/L (45-117); Anion Gap 5 (5-15); BUN 16 mg/dL (7-18); BUN/Creat Ratio 2.6 RATIO (10-20); Chloride 104 mmol/L (98-107); Cholesterol 159 mg/dL (200); Creatinine, Serum 6.07 mg/dL (0.55-1.02); EST Glomerular Filtration Rate 7 mL/min (>60); Est Glom Filt Rate - Afr Amer 9 mL/min (>60); Estimated Creatinine Clearance 6.97 ml/min; Globulin 5.1 g/dL (2.2-4.2); Glucose 103 mg/dL (74-106); High Density Lipoprotein 41 mg/dL; Potassium 4.3 mmol/L (3.5-5.1); Protein, Total 7.9 g/dL (6.4-8.2); Sodium Level 139 mmol/L (136-145); Triglycerides 117 mg/dL; Very Low Density Lipoprotein 23 mg/dL (5-40)
[2022-09-20] MEDS: Calcium Acetate 667 MG Capsule 1334 MG PO ×3 (08:14→17:53)
[2022-09-20] MEDS: Multivitamins,Therapeutic Tablet 1 TABLET PO (08:15)
[2022-09-20] MEDS: Pantoprazole Sodium 40 MG Tablet PO (08:15)
[2022-09-20] MEDS: Sodium Bicarbonate 650 MG Tablet PO ×4 (08:15→21:46)
[2022-09-20] MEDS: Clopidogrel Bisulfate 75 MG Tablet PO (08:15)
[2022-09-20] MEDS: Ascorbic Acid 500 MG Tablet PO (08:16)
[2022-09-20] MEDS: Ferrous Sulfate 325 MG Tablet PO (08:16)
--- NOTE | 2022-09-20 09:00 | MRI_ITS ---
STUDY: MRI BRAIN WITHOUT CONTRAST REASON FOR EXAM: Female, 67 years old. neuro deficit diplopia, H/A, LEFT weakness and facial droop TECHNIQUE: Standardized multiplanar fat and water weighted pulse sequences were obtained. COMPARISON: Head CT dated September 19, 2022. MRI of the brain dated April 26, 2019 FINDINGS: Mild chronic volume loss volume loss, hypodensity, and calcification in the inferior and posterior aspect of the right parietal lobe redemonstrated, consistent with sequela of prior infarction. Multiple old lacunar infarcts are present in the right periventricular white matter. Small focus of calcium at the periphery of the posterior horn of the right lateral ventricle appears bright on diffusion imaging with associated dark signal ADC, however this does not represent signal related to acute infarction. There is mild cerebral atrophy with widening of the extra-axial spaces and ventricular dilatation. There are a limited number of small white matter hyperintensities, distributed throughout the deep white matter tracts of the cerebral hemispheres, consistent with mild chronic white matter ischemic changes. There is no evidence for recent intracranial ischemia or other cause of cytotoxic edema on diffusion weighted imaging (DWI). Normal T2* images of the brain without demonstrated susceptibility artifact. There is no demonstrated hemosiderin stain. Normal bilateral basal ganglia. Normal thalami. There is no extra-axial fluid accumulation. Normal flow voids within the major intracranial circulation suggesting patency by spin echo criteria. Normal sella turcica, pituitary gland, infundibular stalk, optic chiasm and hypothalamus. Normal tectal plate and pineal gland. Normal midbrain, chapin and medulla. Normal cerebellum. Normal basal cisterns. Normal bilateral temporal bones. Normal bilateral internal auditory canals. No demonstrated orbital abnormality, within the constraints of a routine brain study. Normal visualized paranasal sinuses. Normal calvarium and skull base. Normal visualized soft tissue structures. Normal visualized upper cervical spine. Mild bilateral mastoiditis is present. MRI/Brain without Contrast IMPRESSION: 1. Mild chronic volume loss volume loss, hypodensity, and calcification in the inferior and posterior aspect of the right parietal lobe redemonstrated, consistent with sequela of prior infarction. 2. Multiple old lacunar infarcts are present in the right periventricular white matter. 3. No demonstrated acute infarct or intracranial hemorrhage. 4. Small focus of calcium at the periphery of the posterior horn of the right lateral ventricle appears bright on diffusion imaging with associated dark signal ADC, however this does not represent signal related to acute infarction. Electronically Signed: Rashard Sierra MD at 10:26 EST ,
--- NOTE | 2022-09-20 10:31 | PCM.CONS.R ---
Assessment & Plan Assessment/Plan (1) End-stage renal disease on hemodialysis: (2) Diplopia: (3) HTN (hypertension): (4) Anemia: PLAN: Plan We were consulted for dialysis needs. Patient has history of ESRD and dialyzes on a Friday schedule at [facility]. Patient dialyzed yesterday. There is no acute indication for [employer]. Plan for next dialysis tomorrow. Patient was admitted for further evaluation and treatment for facial droop and diplopia. CT of head and MRI of brain did not show any acute process. Chest x-ray did not show any acute process. Blood pressures are elevated, patient is being restarted on home BP meds. Patient has a history of anemia of chronic disease and receives BHAVIN and iron at [facility]. Current hemoglobin trends are acceptable, 12.0. PT consulted and evaluated patient this morning. Discussed plan with Dr. Carrizales. HPI Consult Data Date of Consult: 09/20/22 HPI Narrative HPI Narrative: NATALI KINSEY, is a 67 F who presented to the emergency room yesterday from the dialysis unit as she was noted to be significantly hypertensive (blood pressure 230/87), with complaint of slight left facial droop and diplopia at the kidney center. Patient did not dialyze at the kidney center yesterday, instead she was sent to the ER for evaluation. Patient was admitted to the hospital for further evaluation and treatment. Head CT did not show any acute process, old right parietal lobe infarct and related changes; chest x-ray no acute process. MRI of brain this morning did not show any acute infarct or intracranial hemorrhage. We were consulted for dialysis needs. Patient has a history of ESRD on hemodialysis Friday schedule. Patient dialyzed last evening in the hospital. This morning she denies any complaints, denies headaches. FORMERLY [facility], [facility] Medical History (Updated 09/20/22 @ 10:37 by ART Espinoza) Acute and chronic respiratory failure with hypoxia Ambulates with cane Anemia Asthma Cardiac dysrhythmia, unspecified Chest pain Chronic kidney disease, stage V requiring chronic dialysis Diabetes Easy bruising Edentulous ESRD (end stage renal disease) on dialysis Former smoker Gastric reflux High cholesterol HTN (hypertension) Hypertension Hyponatremia Leg cramps NSTEMI, initial episode of care On home oxygen therapy PONV (postoperative nausea and vomiting) Post-menopausal Rheumatoid arthritis Shortness of breath on exertion SOB (shortness of breath) Stroke Type II diabetes mellitus Wears glasses Home Medications carvedilol 12.5 mg tablet (Coreg) 12.5 mg PO 0600,1600 blood pressure 11/28/20 [History Last Taken 09/19/22] calcium acetate(phosphat bind) 667 mg capsule 2 cap PO 0600,1200,1600 supplement 03/07/22 [History Last Taken 09/19/22] acetaminophen 325 mg capsule (Tylenol) 650 mg PO Q4H PRN Pain 03/08/22 [History Last Taken 03/06/22] hydrocodone-acetaminophen 5-325mg 5mg-325mg 1 tab PO Q6H PRN pain 3 days #10 tabs 09/03/22 [Rx Last Taken 09/19/22] amlodipine 10 mg tablet 10 mg PO 0600 BLOOD PRESSURE 09/19/22 [History Last Taken 09/19/22] ascorbic acid (vitamin C) 500 mg capsule 500 mg PO 0800 SUPPLEMENT 09/19/22 [History Last Taken 09/19/22] atorvastatin 40 mg tablet 40 mg PO 2000 CHOLESTEROL 09/19/22 [History Last Taken 09/18/22] azithromycin 250 mg tablet See Rx Instructions .Route .COMPLEX ANTIBIOTIC 09/19/22 [History Last Taken Unknown] cinacalcet 30 mg tablet 30 mg PO 0600 09/19/22 [History Last Taken 09/19/22] ferrous sulfate 325 mg (65 mg iron) tablet (FeroSul) 325 mg PO DAILY SUPPLEMENT 09/19/22 [History Last Taken 09/19/22] hydralazine 25 mg tablet 25 mg PO TID BLOOD PRESSURE 09/19/22 [History Last Taken 09/19/22] multivitamin (Daily-Caron tablet) 1 tab PO 0600 HEALTH MAINTENANCE 09/19/22 [History Last Taken 09/19/22] pantoprazole 40 mg tablet,delayed release 40 mg PO 0800 ACID REFLUX 09/19/22 [History Last Taken 09/19/22] sodium bicarbonate 650 mg tablet 650 mg PO DAILY HEARTBURN 09/19/22 [History Last Taken 09/19/22] Allergy/AdvReac Type Severity Reaction Status Date / Time ceftriaxone Allergy Severe Rash Verified 09/19/22 11:21 vancomycin Allergy Severe Rash Verified 09/19/22 11:21 Penicillins Allergy Swelling Verified 09/19/22 11:21 oxycodone HCl [From Percocet] AdvReac Itching Verified 09/19/22 11:21 Family History Mother Hypertension Emphysema/COPD Sister Hypertension Surgical History H/O: hysterectomy History of arteriovenostomy for renal dialysis History of eye surgery History of surgery knee scope S/P arteriovenous (AV) fistula creation Social History Smoking Status: Former smoker alcohol intake: current details: 1 per week substance use type: does not use what type of physical activity do you participate in: none ROS ROS Narrative As in HPI and past medical history Physical Exam Narrative Alert and oriented x3, no apparent distress S1, S2, RRR Lung sounds clear anteriorly and posteriorly. Abdomen soft, nontender No edema Tunneled HD catheter dressing clean, dry and intact Lab / Micro Data Result Diagrams: 09/20/22 05:15 09/20/22 05:15 Labs: Laboratory Results - last 24 hr 09/19/22 11:30: WBC 5.1, RBC 4.30, Hgb 12.6, Hct 40.1, MCV 93.3, MCH 29.3, MCHC 31.4 L, RDW Std Deviation 46.6 H, RDW Coeff of Dottie 13.7, Plt Count 234, MPV 10.3, Immature Gran % (Auto) 0.400, Neut % (Auto) 47.9, Lymph % (Auto) 33.6, Howard % (Auto) 14.3 H, Eos % (Auto) 2.8, Baso % (Auto) 1.0, Absolute Neuts (auto) 2.4, Absolute Lymphs (auto) 1.71, Nucleated RBC % 0 09/19/22 11:30: PT 12.2, INR 0.9, APTT 27.3 09/19/22 11:30: Sodium 140, Potassium 4.3, Chloride 101, Carbon Dioxide 33.0 H, Anion Gap 6, BUN 31 H, Creatinine 9.92 H*, Estim Creat Clear Calc 4.27, Est GFR (MDRD) Af Amer 5 L, Est GFR (MDRD) Non-Af 4 L, BUN/Creatinine Ratio 3.1 L, Glucose 112 H, Calcium 9.7, Troponin I High Sens 15 09/20/22 05:15: WBC 4.2 L, RBC 4.10 L, Hgb 12.0, Hct 38.2, MCV 93.2, MCH 29.3, MCHC 31.4 L, RDW Std Deviation 46.8 H, RDW Coeff of Dottie 13.7, Plt Count 216, MPV 9.9, Immature Gran % (Auto) 0.500, Neut % (Auto) 43.4 L, Lymph % (Auto) 37.1, Howard % (Auto) 14.2 H, Eos % (Auto) 3.6, Baso % (Auto) 1.2 H, Absolute Neuts (auto) 1.8 L, Absolute Lymphs (auto) 1.54, Nucleated RBC % 0 09/20/22 05:15: Sodium 139, Potassium 4.3, Chloride 104, Carbon Dioxide 30.0, Anion Gap 5, BUN 16, Creatinine 6.07 H, Estim Creat Clear Calc 6.97, Est GFR (MDRD) Af Amer 9 L, Est GFR (MDRD) Non-Af 7 L, BUN/Creatinine Ratio 2.6 L, Glucose 103, Calcium 9.0, Total Bilirubin 0.60, AST 36, ALT 29, Alkaline Phosphatase 80, Total Protein 7.9, Albumin 2.8 L, Globulin 5.1 H, Albumin/Globulin Ratio 0.5 L, Triglycerides 117, Cholesterol 159, LDL Cholesterol 95, VLDL Cholesterol 23, HDL Cholesterol [address] 09/19/22 11:22 IMPRESSION: 1. Old right parietal lobe infarct and related changes 2. Chronic involutional and ischemic changes of the bilateral cerebral hemispheres. 3. No visualized acute process by CT. N.B. : The above Results were Read Back by Rashard Sierra MD to Darius Young AA, and understanding confirmed on 09/19/2022 11:52:53 (ET). Electronically Signed: Rashard Sierra MD at 11:53 EST , ADDENDUM: 09/19/22 1200 IMPRESSION: 1. Old right parietal lobe infarct and related changes 2. Chronic involutional and ischemic changes of the bilateral cerebral hemispheres. 3. No visualized acute process by CT. N.B. : The above Results were Read Back by Rashard Sierra MD to Darius Young AA, and understanding confirmed on 09/19/2022 11:52:53 (ET). Electronically Signed: Rashard Sierra MD at 11:53 EST , Chest X-Ray 09/19/22 12:25 IMPRESSION: Degenerative changes, as described above. No demonstrated acute cardiopulmonary process. Electronically Signed: Rashard Sierra MD at 12:46 EST , Head/Neck CTA 09/19/22 15:26 IMPRESSION: 1. There is mild atherosclerotic plaque formation of the origin of the right internal carotid artery with less than 50% cross sectional diameter stenosis. ALL ABOVE CRITERIA BY NASCET. 2. There is mild atherosclerotic plaque formation of the origin of the left internal carotid artery with less than 50% cross sectional diameter stenosis. ALL ABOVE CRITERIA BY NASCET. 3. There is calcified plaque formation of the right cavernous carotid artery, with a mild stenosis (less than 50%). ALL ABOVE CRITERIA BY NASCET. 4. There is calcified plaque formation of the left cavernous carotid artery, with a mild stenosis (less than 50%). ALL ABOVE CRITERIA BY NASCET. 5. There is calcified plaque formation of the left external carotid artery, with a mild stenosis (less than 50%). ALL ABOVE CRITERIA BY NASCET. Electronically Signed: Mckinley Pollock MD at 16:20 EST , ADDENDUM: 09/19/22 1630 IMPRESSION: 1. There is mild atherosclerotic plaque formation of the origin of the right internal carotid artery with less than 50% cross sectional diameter stenosis. ALL ABOVE CRITERIA BY NASCET. 2. There is mild atherosclerotic plaque formation of the origin of the left internal carotid artery with less than 50% cross sectional diameter stenosis. ALL ABOVE CRITERIA BY NASCET. 3. There is calcified plaque formation of the right cavernous carotid artery, with a mild stenosis (less than 50%). ALL ABOVE CRITERIA BY NASCET. 4. There is calcified plaque formation of the left cavernous carotid artery, with a mild stenosis (less than 50%). ALL ABOVE CRITERIA BY NASCET. 5. There is calcified plaque formation of the left external carotid artery, with a mild stenosis (less than 50%). ALL ABOVE CRITERIA BY NASCET. N.B. : The above Results were Read Back by Mckinley Pollock MD to Ronald Andrade RN, RN, and understanding confirmed on 09/19/2022 16:23:26 (ET). Electronically Signed: Mckinley Pollock MD at 16:20 EST , Brain MRI 09/20/22 09:00 IMPRESSION: 1. Mild chronic volume loss volume loss, hypodensity, and calcification in the inferior and posterior aspect of the right parietal lobe redemonstrated, consistent with sequela of prior infarction. 2. Multiple old lacunar infarcts are present in the right periventricular white matter. 3. No demonstrated acute infarct or intracranial hemorrhage. 4. Small focus of calcium at the periphery of the posterior horn of the right lateral ventricle appears bright on diffusion imaging with associated dark signal ADC, however this does not represent signal related to acute infarction. Electronically Signed: Rashard Sierra MD at 10:26 EST ,
--- NOTE | 2022-09-20 10:45 | CASEMGMT ---
RN VIJAY Face to Face with patient for initial transition planning/care coordination assessment. RN CM introduced self and role at [facility]. Patient lying in bed, alert and oriented. Patient willing to participate in assessment and is able to answer all questions appropriately. Care providers, pharmacy, and demographics verified. Patient wishes to discharge home, denies need for home health at this time. Patient states she has no further needs or concerns at this time. CM to follow for discharge planning needs that may arise. PCP: [facility] Specialists: Nephrology Preferred Pharmacy: [facility] Insurance: [employer] Prescription Benefit: yes Living Will/HPOA: none LNOK: Grandson and Granddaughter Living Arrangements: Patient lives with GS 23yo and GD 18yo in a one story duplex with 2 steps and railing to enter the home. Patient states she is independent at home. Transportation: grandchildren, friends DME/HHC: Patient has shower chair, raised toilet, cane, walker, grab bars, medical alert, pulse ox, and home oxygen at through [employer]. Patient attends outpatient HD on [facility] Disposition Plan: Patient to discharge home with family support and follow-up plans in place. Hawa MCCORMICK, RN, CM
--- NOTE | 2022-09-20 12:06 | TELEMED_ITS ---
SOC Telemed has confirmed receipt of a request for visit. This document confirms receipt of the order initiating the consult. To find the results of the consultation, please view the patient's reports for the scanned Telemed Consult.
--- NOTE | 2022-09-20 12:29 | CASEMGMT ---
NIKKI LINARES reviewed therapy note with patient, therapy recommend HHC at discharge. Patient states she feels she is at her baseline and declines HHC at this time. NIKKI LINARES educated patient that should she reconsider, she can follow up with her PCP, patient voiced understanding.
[2022-09-20] MEDS: hydrALAZINE 25 MG Tablet PO ×2 (13:11→21:45)
--- NOTE | 2022-09-20 15:14 | NURSING ---
Phoned SOC inquiring about consult. SOC states awaiting physician and there is a surge of emergent consults happening now.
[2022-09-20] MEDS: amLODIPine 10 MG Tablet PO (18:28)
[2022-09-20] MEDS: Atorvastatin Calcium 80 MG Tablet PO (21:45)
[2022-09-21] VITALS (7 sets, daily range): BP systolic 164–199; BP diastolic 55–67; PULSE 74–88; RESP 16–18; TEMP 36.4–37.2; O2SAT 92–99
[2022-09-21] MEDS: Acetaminophen 325 MG Tablet 650 MG PO (04:07)
[2022-09-21] MEDS: Cinacalcet HCl 30 MG Tablet PO (05:28)
[2022-09-21] MEDS: hydrALAZINE 25 MG Tablet PO ×2 (05:28→14:08)
--- NOTE | 2022-09-21 07:16 | PCM.PN.HOSP ---
Subjective Subjective This is a late entry note for 126 9:23 AM as patient was waiting on teleneurology consult for discharge planning. Follow-up on acute TIA/6th cranial nerve palsy: Patient was seen and examined. She still complains of diplopia but denied any weakness or tingling or numbness. MRI of the brain was negative for acute stroke. Objective Data Objective Data Vital Signs: Vital Signs Temp Pulse Resp BP Pulse Ox O2 Del Method 98.3 F 74 16 183/55 H 95 Room Air 09/21/22 04:00 09/21/22 05:28 09/21/22 04:00 09/21/22 05:28 09/21/22 04:00 09/21/22 04:03 Oxygen Delivery Method Room Air Weight: 77.5 kg Body Mass Index (BMI) 31.6 Intake & Output: Intake and Output for Last 24 Hours 09/19/22 09/20/22 09/21/22 23:59 23:59 23:59 Intake Total 240 / 240 480 / 480 Output Total 1500 / 1500 Balance -1260 / -1260 480 / 480 Lab / Micro Data Result Diagrams: 09/20/22 05:15 09/20/22 05:15 Radiography Diagnostic Testing: Radiology Impression Brain MRI 09/20/22 09:00 IMPRESSION: 1. Mild chronic volume loss volume loss, hypodensity, and calcification in the inferior and posterior aspect of the right parietal lobe redemonstrated, consistent with sequela of prior infarction. 2. Multiple old lacunar infarcts are present in the right periventricular white matter. 3. No demonstrated acute infarct or intracranial hemorrhage. 4. Small focus of calcium at the periphery of the posterior horn of the right lateral ventricle appears bright on diffusion imaging with associated dark signal ADC, however this does not represent signal related to acute infarction. 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 Acute TIA/6th cranial nerve palsy, patient's symptoms appear to have improved. MRI brain unremarkable. Total cholesterol was 159, triglyceride 117, LDL 95, HDL 41 PT/OT/ST evaluated Continue on Plavix/atorvastatin 2. Hypertension, uncontrolled, would resume patient's home medications now that more than 24 hours after presentation of her symptoms Control blood pressure per protocol 3. Recent GI bleed, no more bleeding seen since the last admission, continue to monitor for bleeding 4. ESRD on hemodialysis, Friday??Friday and 5. Anemia, iron deficiency and anemia of chronic disease, continue on oral iron 6. Type II DM, diet controlled, continue to monitor on insulin sliding scale 7. Rest of chronic conditions including GERD/Asthma/chronic hypoxic respiratory failure secondary to COPD Continue PPI 8. DVT prophylaxis?heparin subcu Charges/Coding Visit Charges Inpatient E&M: 75052 Subs Hosp L1
--- NOTE | 2022-09-21 08:58 | DCINST_ITS ---
Discharge Instructions Diet Discharge Diet: Renal Diet Activity Discharge Activity: Return to Normal Activity Follow Up Care Test Results: Test results from this visit will be discussed in further detail at your follow- up appointment, if applicable. Discharge Plan Admission Admit Date/Time: 09/19/22 12:11 Primary Reason for Your Visit: Acute TIA/ 6th cranial nerve palsy Attending Provider: Cathy Carrizales Primary Care Provider: Prince Cummins Instructions Additional Instructions / Restrictions: Take note of your medications Continue to keep yourself hydrated Follow-up with your primary care doctor within 1 week and also with your eye doctor within 2 weeks You have been referred to neurology. Monitor for acute GI bleed Discharge Orders/Prescriptions Prescriptions: New atorvastatin 80 mg Tablet 80 mg PO QHS 30 Days Qty: 30 0RF clopidogrel 75 mg Tablet 75 mg PO DAILY 30 Days Qty: 30 0RF Continued carvedilol [Coreg] 12.5 mg tablet 12.5 mg PO 0600,1600 calcium acetate(phosphat bind) 667 mg capsule 2 cap PO 0600,1200,1600 acetaminophen [Tylenol] 325 mg Capsule 650 mg PO Q4H PRN (Reason: Pain) hydrocodone-acetaminophen 5-325 mg tablet 1 tab PO Q6H PRN (Reason: pain) 3 Days Qty: 10 0RF cinacalcet 30 mg Tablet 30 mg PO 0600 multivitamin [Daily-Caron] Tablet 1 tab PO 0600 hydralazine 25 mg tablet 25 mg PO TID sodium bicarbonate 650 mg tablet 650 mg PO DAILY amlodipine 10 mg tablet 10 mg PO 0600 pantoprazole 40 mg tablet,delayed release (DR/EC) 40 mg PO 0800 ferrous sulfate [FeroSul] 325 mg (65 mg iron) tablet 325 mg PO DAILY ascorbic acid (vitamin C) 500 mg capsule 500 mg PO 0800 Discontinued azithromycin 250 mg Tablet See Rx Instructions .ROUTE .COMPLEX Rx Instructions: TAKE TWO TABLETS BY MOUTH ONCE DAILY ON DAY ONE THEN TAKE 1 TABLET BY MOUTH ONCE DAILY FOR DAYS 2-5. atorvastatin 40 mg tablet 40 mg PO 2000 Other Ambulatory Orders: 30 Day Event Recorder Preventi (Urgent) Timeframe: 1 Day Facility: [facility] - Location: Cardiovascular Services Ordered By: Dr. Cathy Carrizales Cardiac Holter Monitor, 48 Hrs (Routine) Timeframe: 1 Day Facility: [facility] - Location: Cardiovascular Services Ordered By: Dr. Cathy Carrizales Referrals / Follow Up: Prince Cummins DO [Primary Care Provider] - 09/26/22 1:30 pm Disposition Disposition (needs filled in before D/C Order can be placed): Home, Self Care
--- NOTE | 2022-09-21 08:58 | ECHOD_ITS ---
Reason For Study: TIA/CVA Procedure This was a 2D Doppler, Color Flow transthoracic echocardiogram. Patient scanned supine due to dialysis taking place. Exam performed portable in patient room. Left Ventricle Normal LV size. The estimated ejection fraction is 65 %. No evidence for diastolic dysfunction. No regional wall motion abnormalities noted. Right Ventricle Normal RV size. Normal systolic function. Atria Normal left atrium. Normal right atrium. No doppler evidence for ASD. Mitral Valve There is moderate mitral annular calcification. There is no mitral valve stenosis. No mitral valve insufficiency. Tricuspid Valve There is no tricuspid stenosis. Unable to estimate RV systolic pressure due to inadequate jet, pulmonary artery pressure probably normal. Aortic Valve Trisinus/trileaflet aortic valve. There is no aortic stenosis. No aortic valve insufficiency. Pulmonic Valve There is no pulmonic valvular stenosis. No pulmonic valve insufficiency. Great Vessels Normal aortic root. Pericardium/Pleural No pericardial effusion. Medication Previous NEGATIVE bubble study. MMode/2D Measurements & Calculations LVIDd: 4.5 cm IVSd: 1.3 cm Ao root diam: 2.6 cm LVIDs: 2.6 cm LVPWd: 1.3 cm RVDd: 3.1 cm FS: 42.1 % LAV(MOD-bp): 35.1 ml LVAd ap4: 31.2 cm2 LVAd ap2: 27.5 cm2 LAV(MOD-bp) Indexed: 19.9 ml/m2 LVLd ap4: 8.5 cm LVLd ap2: 8.7 cm LAV(MOD-sp2): 25.0 ml EDV(MOD-sp4): 93.7 ml EDV(MOD-sp2): 72.8 ml LAV(MOD-sp4): 47.8 ml EDV(sp4-el): 96.8 ml EDV(sp2-el): 73.3 ml LVAs ap4: 15.9 cm2 LVAs ap2: 15.5 cm2 LVLs ap4: 7.6 cm LVLs ap2: 7.8 cm ESV(MOD-sp4): 30.2 ml ESV(MOD-sp2): 28.3 ml ESV(sp4-el): 28.5 ml ESV(sp2-el): 26.0 ml EF(MOD-sp4): 67.8 % EF(MOD-sp2): 61.2 % EF(sp4-el): 70.5 % SV(MOD-sp4): 63.5 ml SV(MOD-sp2): 44.5 ml SV(sp4-el): 68.3 ml LA A4 area: 17.6 cm2 LA dimension(2D): 3.5 cm RA A4 area: 12.3 cm2 Doppler Measurements & Calculations MV E max migel: 57.8 cm/sec Lat Peak E' Migel: 4.2 cm/sec Med Peak E' Migel: 5.8 cm/sec MV A max migel: 77.5 cm/sec E/E' lat: 13.6 E/E' med: 10.0 MV E/A: 0.75 Ao V2 max: 144.8 cm/sec LV V1 max: 108.0 cm/sec PA V2 max: 107.7 cm/sec Ao max P.4 mmHg LV V1 max P.7 mmHg Ao V2 mean: 95.7 cm/sec LV V1 mean P.4 mmHg Ao mean P.3 mmHg LV V1 mean: 73.0 cm/sec Ao V2 VTI: 31.7 cm LV V1 VTI: 20.0 cm AV (velocity ratio): 0.63 ECHO/Echo Complete Interpretation Summary The estimated ejection fraction is 65 %. No evidence for diastolic dysfunction. Ordering Physician: Cathy Carrizales Referring Physician: Dru Cummins M.D. Performed By: Margi Ayoub RDCS
--- NOTE | 2022-09-21 09:49 | DS.PCM_ITS ---
Providers Date of Admission: 09/19/22 Date of Discharge: 09/21/22 Primary Care Physician: Dr. 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 Acute TIA/6th cranial nerve palsy 2. Hypertension 3. Recent GI bleed 4. ESRD on hemodialysis 5. Anemia, iron deficiency and anemia of chronic disease 6. Type II DM, diet controlled 7. GERD 8. Asthma 9. Chronic hypoxic respiratory failure secondary to COPD Medications at Discharge Home Medications carvedilol 12.5 mg tablet (Coreg) 12.5 mg PO 0600,1600 blood pressure 11/28/20 calcium acetate(phosphat bind) 667 mg capsule 2 cap PO 0600,1200,1600 supplement 03/07/22 acetaminophen 325 mg capsule (Tylenol) 650 mg PO Q4H PRN Pain 03/08/22 hydrocodone-acetaminophen 5-325mg 5mg-325mg 1 tab PO Q6H PRN pain 3 days #10 tabs 09/03/22 amlodipine 10 mg tablet 10 mg PO 0600 BLOOD PRESSURE 09/19/22 ascorbic acid (vitamin C) 500 mg capsule 500 mg PO 0800 SUPPLEMENT 09/19/22 cinacalcet 30 mg tablet 30 mg PO 0600 09/19/22 ferrous sulfate 325 mg (65 mg iron) tablet (FeroSul) 325 mg PO DAILY SUPPLEMENT 09/19/22 hydralazine 25 mg tablet 25 mg PO TID BLOOD PRESSURE 09/19/22 multivitamin (Daily-Caron tablet) 1 tab PO 0600 HEALTH MAINTENANCE 09/19/22 pantoprazole 40 mg tablet,delayed release 40 mg PO 0800 ACID REFLUX 09/19/22 sodium bicarbonate 650 mg tablet 650 mg PO DAILY HEARTBURN 09/19/22 atorvastatin 80 mg tablet 80 mg PO QHS 30 days #30 tabs 09/21/22 clopidogrel 75 mg tablet 75 mg PO DAILY 30 days #30 tabs 09/21/22 Hospital Course Operations None Procedures None Summary of Care Provided Minutes Spent on Discharge: 35 Hospital Course: 67-year-old female with multiple comorbidities including ESRD on hemodialysis, history of stroke who comes in with double vision and left-sided weakness as well as facial droop. Patient noticed it on the day of admission when she woke up. She however was due for dialysis and went to the dialysis unit. She was sent to the emergency room. Patient was found to have a 6 cranial nerve palsy as well as left-sided weakness and facial droop. She was not a tPA candidate. Teleneurology was consulted in the emergency room. Recommended further work-up for stroke. Patient was admitted to the progressive care unit, her blood pressure was elevated. She underwent CT of the head and neck that were was unremarkable for large vessel occlusion. Patient had dialysis on the day of admission. She underwent MRI that was negative for acute stroke. Teleneurology was consulted prior to her discharge and recommended continuation on Plavix. She was discharged on high-dose statin of 80 mg p.o. daily. 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 She was referred to neurology also within 1 month. Patient was discharged home with a Holter monitor as well as 30-day event monitor to make up for total of 2 weeks of monitoring for cardiac arrhythmias. She had a 2D echo done that showed a EF of 65%, negative bubble study, no valvular abnormality, Physical Exam Narrative Physical exam: General: Alert, Oriented x3, Cooperative HEENT: Atraumatic Oral: Moist Mucosa Neck: Supple Lungs: Clear to auscultation Cardiovascular: HS I+II, regular, no murmurs Abdomen: Bowel Sounds Present, Soft, Non Tender Extremities: No edema Skin: No rashes, No breakdown Neurological: Grossly intact except for slight left facial droop, unable to appreciate 6th cranial nerve palsy Psych/Mental Status: Appropriate Weight / BMI Weight Weight: 77.5 kg Body Mass Index (BMI) 31.6 ABG / Lab / Microbiology Data Result Diagrams: 09/20/22 05:15 09/20/22 05:15 Radiography Diagnostic Testing: Radiology Impression Brain MRI 09/20/22 09:00 IMPRESSION: 1. Mild chronic volume loss volume loss, hypodensity, and calcification in the inferior and posterior aspect of the right parietal lobe redemonstrated, consistent with sequela of prior infarction. 2. Multiple old lacunar infarcts are present in the right periventricular white matter. 3. No demonstrated acute infarct or intracranial hemorrhage. 4. Small focus of calcium at the periphery of the posterior horn of the right lateral ventricle appears bright on diffusion imaging with associated dark signal ADC, however this does not represent signal related to acute infarction. Electronically Signed: Rashard Sierra MD at 10:26 EST Reading Location ID and State: [facility] / [place] , Service support , D/C Instructions Discharge Diet: Renal Diet Meaningful Use Info Meaningful Use Diagnoses (Choose all that apply): Ischemic CVA CVA Therapy Assessed for PT,OT and/or ST?: Yes Ischemic Stroke Antithrombotic order at d/c?: Yes Dx of Atrial fib/flutter?: No Anticoagulant at discharge?: No Reason anticoagulant not ordered: Treatment not Indicated Statins at discharge?: Yes Primary Dx Acute Ischemic CVA?: No IV tPA ordered during stay?: No Reason IV t-PA not ordered: Treatment not Indicated Discharge Plan Admission Admit Date/Time: 09/19/22 12:11 Primary Reason for Your Visit: Acute TIA/ 6th cranial nerve palsy Attending Provider: Cathy Carrizales Primary Care Provider: Prince Cummins Instructions Additional Instructions / Restrictions: Take note of your medications Continue to keep yourself hydrated Follow-up with your primary care doctor within 1 week and also with your eye doctor within 2 weeks You have been referred to neurology. Monitor for acute GI bleed Discharge Orders/Prescriptions Prescriptions: New atorvastatin 80 mg Tablet 80 mg PO QHS 30 Days Qty: 30 0RF clopidogrel 75 mg Tablet 75 mg PO DAILY 30 Days Qty: 30 0RF Continued carvedilol [Coreg] 12.5 mg tablet 12.5 mg PO 0600,1600 calcium acetate(phosphat bind) 667 mg capsule 2 cap PO 0600,1200,1600 acetaminophen [Tylenol] 325 mg Capsule 650 mg PO Q4H PRN (Reason: Pain) hydrocodone-acetaminophen 5-325 mg tablet 1 tab PO Q6H PRN (Reason: pain) 3 Days Qty: 10 0RF cinacalcet 30 mg Tablet 30 mg PO 0600 multivitamin [Daily-Caron] Tablet 1 tab PO 0600 hydralazine 25 mg tablet 25 mg PO TID sodium bicarbonate 650 mg tablet 650 mg PO DAILY amlodipine 10 mg tablet 10 mg PO 0600 pantoprazole 40 mg tablet,delayed release (DR/EC) 40 mg PO 0800 ferrous sulfate [FeroSul] 325 mg (65 mg iron) tablet 325 mg PO DAILY ascorbic acid (vitamin C) 500 mg capsule 500 mg PO 0800 Discontinued azithromycin 250 mg Tablet See Rx Instructions .ROUTE .COMPLEX Rx Instructions: TAKE TWO TABLETS BY MOUTH ONCE DAILY ON DAY ONE THEN TAKE 1 TABLET BY MOUTH ONCE DAILY FOR DAYS 2-5. atorvastatin 40 mg tablet 40 mg PO 1999 Other Ambulatory Orders: 30 Day Event Recorder Preventi (Urgent) Timeframe: 1 Day Facility: [facility] - Location: Cardiovascular Services Ordered By: Dr. Cathy Carrizales Cardiac Holter Monitor, 48 Hrs (Routine) Timeframe: 1 Day Facility: [facility] - Location: Cardiovascular Services Ordered By: Dr. Cathy Carrizales Referrals / Follow Up: Prince Cummins DO [Primary Care Provider] - 09/26/22 1:30 pm Michael Ha MD [Non-Staff -Ordering Privileges] - Within 1 Month Disposition Disposition (needs filled in before D/C Order can be placed): Home, Self Care Charges/Coding Visit Charges Inpatient E&M: 40430 Disch Hosp >30min
[2022-09-21] MEDS: Pantoprazole Sodium 40 MG Tablet PO (14:07)
[2022-09-21] MEDS: Ferrous Sulfate 325 MG Tablet PO (14:07)
[2022-09-21] MEDS: Multivitamins,Therapeutic Tablet 1 TABLET PO (14:07)
[2022-09-21] MEDS: Clopidogrel Bisulfate 75 MG Tablet PO (14:07)
[2022-09-21] MEDS: Ascorbic Acid 500 MG Tablet PO (14:07)
[2022-09-21] MEDS: Sodium Bicarbonate 650 MG Tablet PO ×2 (14:08→17:19)
[2022-09-21] MEDS: Carvedilol 12.5 MG Tablet PO (17:19)
[2022-09-21] MEDS: Calcium Acetate 667 MG Capsule 1334 MG PO (17:19)
== END 2022-09-21 18:22 | disposition home or self-care (01) | DRG 47 ==
LOC: ED 12:23 → PCU 13:34
PROVIDERS: Admitting Provider Internal Medicine; Emergency Provider Emergency Medicine; PCP Family Medicine; Visit Provider Internal Medicine
DX: G45.9 Transient cerebral ischemic attack, unspecified (principal); H49.22 Sixth [abducent] nerve palsy, left eye; I12.0 Hypertensive chronic kidney disease with stage 5 chronic kidney disease or end stage renal disease; J96.11 Chronic respiratory failure with hypoxia; N18.6 End stage renal disease; D63.1 Anemia in chronic kidney disease; E11.22 Type 2 diabetes mellitus with diabetic chronic kidney disease; Z99.2 Dependence on renal dialysis; J44.9 Chronic obstructive pulmonary disease, unspecified; K21.9 Gastro-esophageal reflux disease without esophagitis; D50.9 Iron deficiency anemia, unspecified; E78.00 Pure hypercholesterolemia, unspecified; I69.322 Dysarthria following cerebral infarction; I25.2 Old myocardial infarction; Z99.81 Dependence on supplemental oxygen; Z79.02 Long term (current) use of antithrombotics/antiplatelets; Z79.899 Other long term (current) drug therapy; Z87.891 Personal history of nicotine dependence
CPT/HCPCS: 36415; 70450; 70496; 70498; 70551; 71045; 80048; 80053; 80061; 84484; 85025; 85610; 85730; 90937; 92610; 93005; 93306; 94762; 97162; 97165; 97802; 99285; J7030; Q9957; Q9967; A4216; G0257

== ENCOUNTER → 2022-09-21 | Outpatient (CLI) | payer MEDICAID, SELFPAY | END | disposition home or self-care (01) | LOC: PSN 17:28 | PROVIDERS: PCP Family Medicine; Visit Provider Internal Medicine | DX: H49.22 Sixth [abducent] nerve palsy, left eye (principal) | CPT/HCPCS: 93225; 93226 ==

== ENCOUNTER 2022-11-24 21:15 | Emergency (ER) | payer MEDICAID, SELFPAY ==
[2022-11-24 21:16] VITALS: BP 252/69; PULSE 93; RESP 15; TEMP 37.8; O2SAT 97
[2022-11-24 21:52] LABS: Absolute Lymphocyte Count 2.55 X10^3/uL (0.83-4.51); Absolute Neutrophil Count 1.7 X10^3/uL (2.0-7.7); Basophil# 0.04 X10^3/uL; Basophil% 0.8 % (0-1); Eosinophil# 0.11 X10^3/uL; Eosinophils% 2.2 % (0-5); Hemoglobin 10.1 g/dL (12.0-15.0); Lymphocyte # 2.55 X10^3/ul (0.83-4.51); Lymphocyte % 49.9 % (19-41); Mean Corp Hgb Conc 31.6 g/dL (32-36); Mean Corpuscular Hgb 29.4 pg (27.0-32.0); Mean Corpuscular Volume 93.3 fL (81-99); Mean Platelet Vol. 9.1 fl (6.2-12.0); Monocyte# 0.65 X10^3/uL; Monocyte% 12.7 % (0-10); NRBC Flagged by Analyzer 0 % (0-5); Neutrophil # 1.74 X10^3/uL (2.7-7.7); Platelet Count 272 K/mm3 (150-450); RBC Distribution Width CV 15.2 % (11.6-14.6); RBC Distribution Width SD 51.6 fl (35.1-43.9); Red Blood Count 3.43 M/mm3 (4.2-5.4); White Blood Count 5.1 K/mm3 (4.4-11.0)
--- NOTE | 2022-11-24 21:59 | EDS_ITS ---
HPI History of Present Illness Chief Complaint: Back Detail of Chief Complaint: Left flank pain Informant: patient Onset/Context/Timing Onset: Hours Context: Sudden Onset Timing: Continuous Quality: Pain Location: Left flank Current Severity: Mild Maximum Severity: Moderate Worsened by: Movement and percussion Relieved by: Nothing Associated Symptoms Associated Symptoms: Discomfort with urination and fever Narrative Narrative: Patient is a 67-year-old woman with end-stage renal disease on hemodialysis. Patient is dialyzed on Friday, and Friday. She did not miss dialysis on Friday. She had a new Vas-Cath placed and recently the dressing was changed by the nephrology nurse, yesterday. She reports fever and chills. She denies headache, visual, ocular auditory symptoms. She denies photophobia, neck pain or neck stiffness. She denies cough or shortness of breath. Denies chest discomfort. She denies vomiting or diarrhea. She states she still makes urine. She has not noted a rash. She is concerned she has an infection in her back because of dialysis. Prior similar symptoms: No Recent Illness/Hospitalization: No PFSH PFSH Medical History Acute and chronic respiratory failure with hypoxia Ambulates with cane Anemia Asthma Cardiac dysrhythmia, unspecified Chest pain Chronic kidney disease, stage V requiring chronic dialysis Diabetes Easy bruising Edentulous ESRD (end stage renal disease) on dialysis Former smoker Gastric reflux High cholesterol HTN (hypertension) Hypertension Hyponatremia Leg cramps NSTEMI, initial episode of care On home oxygen therapy PONV (postoperative nausea and vomiting) Post-menopausal Rheumatoid arthritis Shortness of breath on exertion SOB (shortness of breath) Stroke Type II diabetes mellitus Wears glasses Home Medications carvedilol 12.5 mg tablet (Coreg) 12.5 mg PO 0600,1600 blood pressure 11/28/20 [History Last Taken 09/19/22] calcium acetate(phosphat bind) 667 mg capsule 2 cap PO 0600,1200,1600 supplement 03/07/22 [History Last Taken 09/19/22] acetaminophen 325 mg capsule (Tylenol) 650 mg PO Q4H PRN Pain 03/08/22 [History Last Taken 03/06/22] hydrocodone-acetaminophen 5-325mg 5mg-325mg 1 tab PO Q6H PRN pain 3 days #10 tabs 09/03/22 [Rx Last Taken 09/19/22] amlodipine 10 mg tablet 10 mg PO 0600 BLOOD PRESSURE 09/19/22 [History Last Take n 09/19/22] ascorbic acid (vitamin C) 500 mg capsule 500 mg PO 0800 SUPPLEMENT 09/19/22 [History Last Taken 09/19/22] cinacalcet 30 mg tablet 30 mg PO 0600 09/19/22 [History Last Taken 09/19/22] ferrous sulfate 325 mg (65 mg iron) tablet (FeroSul) 325 mg PO DAILY SUPPLEMENT 09/19/22 [History Last Taken 09/19/22] hydralazine 25 mg tablet 25 mg PO TID BLOOD PRESSURE 09/19/22 [History Last Taken 09/19/22] multivitamin (Daily-Caron tablet) 1 tab PO 0600 HEALTH MAINTENANCE 09/19/22 [History Last Taken 09/19/22] pantoprazole 40 mg tablet,delayed release 40 mg PO 0800 ACID REFLUX 09/19/22 [History Last Taken 09/19/22] sodium bicarbonate 650 mg tablet 650 mg PO DAILY HEARTBURN 09/19/22 [History Last Taken 09/19/22] atorvastatin 80 mg tablet 80 mg PO QHS 30 days #30 tabs 11/14/22 [Rx Last Taken Unknown] clopidogrel 75 mg tablet 75 mg PO DAILY 30 days #30 tabs 11/14/22 [Rx Last Taken Unknown] ciprofloxacin HCl 250 mg tablet 250 mg PO DAILY #7 tabs 11/24/22 [Rx Last Taken Unknown] Allergy/AdvReac Type Severity Reaction Status Date / Time ceftriaxone Allergy Severe Rash Verified 11/24/22 21:20 vancomycin Allergy Severe Rash Verified 11/24/22 21:20 Penicillins Allergy Swelling Verified 11/24/22 21:20 oxycodone HCl [From Percocet] AdvReac Itching Verified 11/24/22 21:20 Family History Mother Hypertension Emphysema/COPD Sister Hypertension Surgical History H/O: hysterectomy History of arteriovenostomy for renal dialysis History of eye surgery History of surgery knee scope S/P arteriovenous (AV) fistula creation Social History Smoking Status: Former smoker alcohol intake: current details: 1 per week substance use type: does not use what type of physical activity do you participate in: none ROS ROS ED Constitutional Constitutional ED: Reports chills and fever(s); Denies sweats Eyes Eyes: Denies blurry vision, change in vision or diplopia ENT ENT ED: Denies ear pain, rhinorrhea or sore throat Cardiovascular Cardiovascular: Denies chest pain, palpitations or racing heartbeat Respiratory/Chest Respiratory/Chest: Denies cough, dyspnea or dyspnea on exertion Gastrointestinal Gastrointestinal: Denies abdominal pain, diarrhea or vomiting Genitourinary Genitourinary ED: Reports dysuria; Denies hematuria or urinary frequency Musculoskeletal Musculoskeletal: Denies arthralgias, back pain, myalgias or neck pain Integumentary Denies rash Neurologic Neurologic: Denies headache(s) or paresthesias Endocrine Endocrinology: Denies cold intolerance or heat intolerance Hematologic/Lymphatic Hematologic/Lymphatic: Reports anemia EXAM Physical Exam Const Vital Signs: 11/24/22 21:16 11/24/22 22:43 Temperature 100.0 F H Temperature Source Temporal Pulse Rate 93 76 Respiratory Rate 15 16 Blood Pressure 252/69 H 233/85 H Blood Pressure Mean 130 134 Pulse Ox 97 98 Oxygen Delivery Method Room Air Room Air Positive well nourished, well developed and obese Constitutional Narrative: Patient does not appear well. General Appearance ED: well developed and NAD; Negative for cyanotic or diaphore tic Nutritional Appearance: obese HEENT Reports dry mucous membranes HEENT Narrative: Head is atraumatic normocephalic. Ears are normal. Nares are patent. Posterior pharynx out erythema or exudate. Mouth ED: Yes dry mucous membranes Mouth: dry mucous membranes Eyes PERRL and EOMs intact bilaterally Eyes Narrative: There is no nystagmus. General Eye ED: Yes pale conjunctiva; Negative for scleral icterus Neck no lymphadenopathy, supple and no JVD Chest Wall inspection of chest normal and palpation of chest normal Resp normal respiratory effort and clear to auscultation bilaterally Cardio regular rate, regular rhythm, S1 normal heart sound, S2 normal heart sound and no murmurs GI normal to inspection, nondistended, normoactive bowel sounds, non-distended and no masses; Negative for hepatosplenomegaly Palpation: soft and tender suprapubic; Negative for guarding, splenomegaly or mass Back/Spine Back/Spine Narrative: There is no midline dorsal or lumbar pain to percussion. There is no swelling, erythema warmth or palpation of the back. General Back: CVA tenderness left Thoracic Spine / Upper Back: thoracic spinal tenderness Lumbar Spine / Lower Back: lumbar spinal tenderness Extremity normal to inspection Neuro oriented x3, CN's II-XII intact bilaterally and no sensory deficits noted Sensorium / Orientation: alert Psych mental status grossly normal Skin no rashes or lesions noted, no wounds and skin turgor normal Skin Narrative: Patient's Vas-Cath is right subclavian area. There is no evidence infection. General Skin Exam: Negative for jaundice MDM MDM MDM Narrative Medical decision making narrative: Blood workWith patient complaining of fever, chills and flank pain and suprapubic discomfort concern for urinary tract infection. Since patient is obese and complains of weakness we will have nursing straight catheter urine A. Was obtained for sepsis work-up. Since she is not tachycardic tachypneic or hypoxic and auscultation lungs were clear x-ray of the chest was not obtained. Patient was admitted in September for TIA. She also was anemic due to recent GI bleed. History & Record Review Additional record(s) reviewed:: Prior inpatient record, Prior outpatient record and Prior labs Lab Data Attestation: I reviewed the patient's lab results. Lab results narrative: Patient H&H is 10.1 and 32.0. There is no shift or bandemia. Is normal. Comprehensive metabolic panel is remarked for an elevated BUN and creatinine of 52 and 7.2 which is due to end-stage renal disease on hemodialysis. Macro urinalysis is positive for protein, glucose, occult blood and leukoesterase. Nitrites were negative. Micro is pending. Labs: Laboratory Results - last 24 hr 11/24/22 11/24/22 11/24/22 21:40 21:40 22:25 WBC 5.1 RBC 3.43 L Hgb 10.1 L Hct 32.0 L MCV 93.3 MCH 29.4 MCHC 31.6 L RDW Std Deviation 51.6 H RDW Coeff of Dottie 15.2 H Plt Count 272 MPV 9.1 Immature Gran % (Auto) 0.400 Neut % (Auto) 34.0 L Lymph % (Auto) 49.9 H [place] % (Auto) 12.7 H Eos % (Auto) 2.2 Baso % (Auto) 0.8 Absolute Neuts (auto) 1.7 L Absolute Lymphs (auto) 2.55 Nucleated RBC % 0 Sodium 138 Potassium 4.3 Chloride 97 L Carbon Dioxide 30.0 Anion Gap 11 BUN 52 H Creatinine 7.20 H Est GFR (MDRD) Af Amer 7 L Est GFR (MDRD) Non-Af 6 L BUN/Creatinine Ratio 7.2 L Glucose 87 Calcium 9.6 Total Bilirubin 0.40 AST 36 ALT 38 Alkaline Phosphatase 62 Total Protein 9.0 H Albumin 3.6 Globulin 5.4 H Albumin/Globulin Ratio 0.7 L Urine Color Yellow Urine Clarity Clear Urine pH 8.0 Ur Specific [place] 1.010 Urine Protein 500 H Urine Glucose (UA) 50 H Urine Ketones Negative Urine Occult Blood 25 H Urine Nitrite Negative Urine Bilirubin Negative Urine Urobilinogen Normal Ur Leukocyte Esterase 25 H Urine RBC 0 SEEN Urine WBC 5-10 SEEN Ur Squamous Epith Cells 0-5 SEEN Urine Bacteria 1+ Urine Mucus 0 SEEN Treatment and Re-Evaluation :: History of allergy to penicillin and ceftriaxone will treat with ciprofloxacin. Bactrim is contraindicated in a patient with end-stage renal disease on hemodialysis. Patient received a dose of ciprofloxacin. Blood pressure is elevated. We will have nurse reassess. Repeat blood pressure 203/79. Patient states her blood pressure does run high. Since she is asymptomatic and has history of markedly elevated blood pressure will discharge to home. Patient was informed of results. Discharge Plan Triage Chief Complaint: Back ED Provider: Gregor Hernandez Dx/Rx/DC Orders Clinical Impression: Acute bacterial pyelonephritis, End-stage renal disease on hemodialysis, Accelerated essential hypertension Instructions: ED Pyelonephritis, Female (Adult) Prescriptions: New ciprofloxacin HCl 250 mg tablet 250 mg PO DAILY Qty: 7 0RF No Action carvedilol [Coreg] 12.5 mg tablet 12.5 mg PO 0600,1600 calcium acetate(phosphat bind) 667 mg capsule 2 cap PO 0600,1200,1600 acetaminophen [Tylenol] 325 mg Capsule 650 mg PO Q4H PRN (Reason: Pain) hydrocodone-acetaminophen 5-325 mg tablet 1 tab PO Q6H PRN (Reason: pain) 3 Days Qty: 10 0RF cinacalcet 30 mg Tablet 30 mg PO 0600 multivitamin [Daily-Caron] Tablet 1 tab PO 0600 hydralazine 25 mg tablet 25 mg PO TID sodium bicarbonate 650 mg tablet 650 mg PO DAILY amlodipine 10 mg tablet 10 mg PO 0600 pantoprazole 40 mg tablet,delayed release (DR/EC) 40 mg PO 0800 ferrous sulfate [FeroSul] 325 mg (65 mg iron) tablet 325 mg PO DAILY ascorbic acid (vitamin C) 500 mg capsule 500 mg PO 0800 atorvastatin 80 mg tablet 80 mg PO QHS 30 Days Qty: 30 0RF clopidogrel 75 mg tablet 75 mg PO DAILY 30 Days Qty: 30 0RF Primary Care Provider: Prince Cummins Referrals: Prince Cummins, [Primary Care Provider] - 3-5 Days Disposition Disposition: Home, Self Care
[2022-11-24 22:22] LABS: ALB/GLOB Ratio 0.7 RATIO (0.9-2.4); AST(SGOT) 36 U/L (15-37); Alanine Aminotransfer ALT/SGPT 38 U/L (13-56); Albumin, Serum 3.6 g/dL (3.2-5.0); Alkaline Phosphatase 62 U/L (45-117); Anion Gap 11 (5-15); BUN 52 mg/dL (7-18); BUN/Creat Ratio 7.2 RATIO (10-20); Calcium,Total 9.6 mg/dL (8.5-10.1); Chloride 97 mmol/L (98-107); EST Glomerular Filtration Rate 6 mL/min (>60); Est Glom Filt Rate - Afr Amer 7 mL/min (>60); Globulin 5.4 g/dL (2.2-4.2); Glucose 87 mg/dL (74-106); Potassium 4.3 mmol/L (3.5-5.1); Sodium Level 138 mmol/L (136-145)
[2022-11-24 22:34] LABS: Mucous, Urine 0 SEEN /hpf (<or=2+); Red Blood Cells-Urine 0 SEEN /hpf (0-5)
[2022-11-24 22:35] LABS: Color, Urine Yellow (Yellow); Glucose, Dipstick 50 mg/dl (Normal); Ketone-Dipstick Negative (Negative); Leukocyte Esterase-Dipstick 25 /ul (Negative); Nitrite-Dipstick Negative (Negative); Occult Blood-Urine 25 /ul (Negative); Protein-Dipstick 500 mg/dl (Negative); Urine Bilirubin Dipstick Negative (Negative); Urine Clarity Clear (Clear); Urine Urobilinogen Normal (Normal)
[2022-11-24 22:43] VITALS: BP 233/85; PULSE 76; RESP 16; O2SAT 98; BMI 33.0
[2022-11-24 22:54] LABS: Bacteria 1+ /hpf (None Seen); Squamous Epithelial Cells - UA 0-5 SEEN /hpf (5-10); White Blood Cells 5-10 SEEN /hpf (0-5)
[2022-11-24] MEDS: Ciprofloxacin 250 MG Tablet PO (23:29)
== END 2022-11-24 23:50 | disposition home or self-care (01) ==
PROVIDERS: Emergency Provider Emergency Medicine; PCP Family Medicine; Visit Provider Emergency Medicine
DX: N10 Acute pyelonephritis (principal); Z99.2 Dependence on renal dialysis; E11.22 Type 2 diabetes mellitus with diabetic chronic kidney disease; N18.6 End stage renal disease; I12.0 Hypertensive chronic kidney disease with stage 5 chronic kidney disease or end stage renal disease; I25.2 Old myocardial infarction; E78.00 Pure hypercholesterolemia, unspecified; E66.9 Obesity, unspecified; Z68.33 Body mass index [BMI] 33.0-33.9, adult; Z79.02 Long term (current) use of antithrombotics/antiplatelets; Z79.899 Other long term (current) drug therapy; Z86.73 Personal history of transient ischemic attack (TIA), and cerebral infarction without residual deficits; Z87.891 Personal history of nicotine dependence
CPT/HCPCS: 80053; 81001; 85025; 87040; 87086; 87088; 99285; A4216

== ENCOUNTER 2022-12-30 18:27 | Emergency (ER) | payer MEDICAID, SELFPAY ==
[2022-12-30 18:28] VITALS: BP 199/92; PULSE 92; RESP 16; TEMP 36.2; O2SAT 99
[2022-12-30 18:54] VITALS: BMI 30.5
--- NOTE | 2022-12-30 19:02 | EX.ED.DYSGE1 ---
HPI History of Present Illness Chief Complaint: Abd Pain Informant: patient and family Narrative Narrative: There werePatient her granddaughter reporting pain around to her left flank.'s been going on for 2 months. Nichole first seen 3 weeks ago here at this emergency department found to have urinary tract infection treated for complicated UTI reported kidney infection. States symptoms not improved she went to [place] emergency department little over a week ago had another CT scan along with labs currently on antibiotics by getting an antiemetics. States symptoms not improving. Denies dysuria. Has urine frequency. Dialysis patient Saturdays last treatment 2 days ago. She reports she makes plenty of urine. Denies nausea pain. Prior similar symptoms: Yes PFSH PFS Medical History Acute and chronic respiratory failure with hypoxia Ambulates with cane Anemia Asthma Cardiac dysrhythmia, unspecified Chest pain Chronic kidney disease, stage V requiring chronic dialysis Diabetes Easy bruising Edentulous ESRD (end stage renal disease) on dialysis Former smoker Gastric reflux High cholesterol HTN (hypertension) Hypertension Hyponatremia Leg cramps NSTEMI, initial episode of care On home oxygen therapy PONV (postoperative nausea and vomiting) Post-menopausal Rheumatoid arthritis Shortness of breath on exertion SOB (shortness of breath) Stroke Type II diabetes mellitus Wears glasses Home Medications carvedilol 12.5 mg tablet (Coreg) 12.5 mg PO 0600,1600 blood pressure 11/28/20 [History Last Taken 09/19/22] calcium acetate(phosphat bind) 667 mg capsule 2 cap PO 0600,1200,1600 supplement 03/07/22 [History Last Taken 09/19/22] acetaminophen 325 mg capsule (Tylenol) 650 mg PO Q4H PRN Pain 03/08/22 [History Last Taken 03/06/22] hydrocodone-acetaminophen 5-325mg 5mg-325mg 1 tab PO Q6H PRN pain 3 days #10 tabs 09/03/22 [Rx Last Taken 09/19/22] amlodipine 10 mg tablet 10 mg PO 0600 BLOOD PRESSURE 09/19/22 [History Last Taken 09/19/22] ascorbic acid (vitamin C) 500 mg capsule 500 mg PO 0800 SUPPLEMENT 09/19/22 [History Last Taken 09/19/22] cinacalcet 30 mg tablet 30 mg PO 0600 09/19/22 [History Last Taken 09/19/22] ferrous sulfate 325 mg (65 mg iron) tablet (FeroSul) 325 mg PO DAILY SUPPLEMENT 09/19/22 [History Last Taken 09/19/22] hydralazine 25 mg tablet 25 mg PO TID BLOOD PRESSURE 09/19/22 [History Last Taken 09/19/22] multivitamin (Daily-Caron tablet) 1 tab PO 0600 HEALTH MAINTENANCE 09/19/22 [History Last Taken 09/19/22] pantoprazole 40 mg tablet,delayed release 40 mg PO 0800 ACID REFLUX 09/19/22 [History Last Taken 09/19/22] sodium bicarbonate 650 mg tablet 650 mg PO DAILY HEARTBURN 09/19/22 [History Last Taken 09/19/22] ciprofloxacin HCl 250 mg tablet 250 mg PO DAILY #7 tabs 11/24/22 [Rx Last Taken Unknown] atorvastatin 80 mg tablet 80 mg PO QHS 30 days #30 tabs 12/13/22 [Rx Last Taken Unknown] clopidogrel 75 mg tablet 75 mg PO DAILY 30 days #30 tabs 12/13/22 [Rx Last Taken Unknown] Allergy/AdvReac Type Severity Reaction Status Date / Time ceftriaxone Allergy Severe Rash Verified 12/30/22 18:28 vancomycin Allergy Severe Rash Verified 12/30/22 18:28 Penicillins Allergy Swelling Verified 12/30/22 18:28 oxycodone HCl [From Percocet] AdvReac Itching Verified 12/30/22 18:28 Family History Mother Hypertension Emphysema/COPD Sister Hypertension Surgical History H/O: hysterectomy History of arteriovenostomy for renal dialysis History of eye surgery History of surgery knee scope S/P arteriovenous (AV) fistula creation Social History Smoking Status: Former smoker alcohol intake: current details: 1 per week substance use type: does not use what type of physical activity do you participate in: none ROS ROS ED Constitutional Constitutional ED: Denies chills, fever(s) or sweats Eyes Eyes: Denies change in vision ENT ENT ED: Denies dysphagia or sore throat Cardiovascular Cardiovascular: Denies chest pain, leg edema, palpitations or racing heartbeat Respiratory/Chest Respiratory/Chest: Denies cough, dyspnea or dyspnea on exertion Gastrointestinal Gastrointestinal: Reports abdominal pain; Denies diarrhea, nausea or vomiting Genitourinary Genitourinary ED: Denies dysuria, hematuria or urinary frequency Musculoskeletal Musculoskeletal: Denies back pain, extremity pain or neck pain Integumentary Denies rash or wounds Neurologic Neurologic: Denies headache(s), paresthesias or weakness EXAM Physical Exam Const Vital Signs: 12/30/22 18:28 Temperature 97.2 F L Temperature Source Temporal Pulse Rate 92 Respiratory Rate 16 Blood Pressure 199/92 H Blood Pressure Mean 127 Pulse Ox 99 Oxygen Delivery Method Room Air Positive well nourished and well developed General Appearance ED: well developed and NAD HEENT Reports moist mucous membranes normocephalic and atraumatic Eyes PERRL, EOMs intact bilaterally and conjunctivae normal General Eye ED: Yes normal appearance of both eyes Neck no lymphadenopathy and supple General: Negative for tenderness Chest Wall Chest Narrative: Right chest Vas-Cath clean, dry, intact Chest: Negative for tenderness Resp normal respiratory effort and normal air movement Effort and Inspection: symmetric chest movement; Negative for respiratory distress Cardio regular rate, regular rhythm and no murmurs Peripheral Pulses: pulses 2+ throughout GI normal to inspection, nondistended, normoactive bowel sounds GI Narrative: Suprapubic left lower quadrant tenderness. Negative Martinez's or McBurney's tenderness Palpation: Negative for guarding or rebound tenderness present Back/Spine no CVA tenderness and no thoracic nor lumbar tenderness Back/Spine Narrative: No rash Extremity normal to inspection General Extremety ED: Negative for edema or tenderness General Extremity: Negative for edema Neuro oriented x3 and no sensory deficits noted Sensorium / Orientation: awake and alert Skin no rashes or lesions noted and no wounds MDM MDM MDM Narrative Medical decision making narrative: Normal interventions / MDM: Differential diagnosis: Abdominal pain, UTI, diverticulitis, cystitis, end-stage renal disease, electrolyte abnormalities Diagnosis considered but do not suspect: N/A My EKG interpretation: N/A Imaging independently reviewed and interpreted by myself: N/A External documents reviewed: Evaluation through [facility], she was seen at [facility] 2 weeks ago negative flank CT scan Labs stable urine had trace leukocytes she is placed on Keflex. Also from note ED visit a month ago she had leukocytes and white blood cells her culture had mixed contaminants, she was placed on Cipro at that time. She did not have a CT scan here a month ago. Test considered but not ordered:N/A ED course: Patient presenting with pain nontoxic reports been going on for a month. Abdominal labs were obtained along with urine ordered. She treated with morphine. She not had any vomiting. From labs chronic kidney disease on dialysis creatinine is 15.9 BUN 73 potassium is 4.4. She is due for dialysis tomorrow. Lipase 7 6 one-point above the normal level, no clinical concerns for pancreatitis. Hemoglobin 12.6. Patient difficult given urine, cath urine was obtained in showed 25 leukocytes and hematuria. Re-evaluation: stable, abdominal exam is benign, patient ambulating in the department with no return of symptoms. Lower clinical suspicion at this time for diverticulitis with improved symptoms and no reproducible on exam. Discussed patient she is currently having some antibiotics that which she will finish likely Keflex from review of her [place] visit. I will send for urine culture, will hold off any additional antibiotics. Should use Tylenol. She will plan her dialysis tomorrow plan outpatient follow-up with return precautions. All questions were answered. Disposition discussed with patient/family/significant other: Patient and granddaughter Case discussed with consulting clinician: N/A Lab Data Attestation: I reviewed the patient's lab results. Labs: Laboratory Results - last 24 hr 12/30/22 12/30/22 12/30/22 19:25 19:25 21:25 WBC 3.7 L RBC 4.16 L Hgb 12.6 Hct 38.9 MCV 93.5 MCH 30.3 MCHC 32.4 RDW Std Deviation 50.6 H RDW Coeff of Dottie 14.8 H Plt Count 269 MPV 8.8 Immature Gran % (Auto) 0.300 Neut % (Auto) 43.5 L Lymph % (Auto) 39.3 Caroline % (Auto) 13.6 H Eos % (Auto) 2.2 Baso % (Auto) 1.1 H Absolute Neuts (auto) 1.6 L Absolute Lymphs (auto) 1.45 Nucleated RBC % 0 Sodium 138 Potassium 4.4 Chloride 102 Carbon Dioxide 29.0 Anion Gap 7 BUN 73 H Creatinine 15.90 H* Estim Creat Clear Calc 2.66 Est GFR (MDRD) Af Amer 3 L Est GFR (MDRD) Non-Af 2 L BUN/Creatinine Ratio 4.6 L Glucose 133 H Calcium 9.6 Total Bilirubin 1.10 H AST 50 H ALT 38 Alkaline Phosphatase 63 Total Protein 8.3 H Albumin 3.5 Globulin 4.8 H Albumin/Globulin Ratio 0.7 L Lipase 76 H Urine Color Yellow Urine Clarity Clear Urine pH 8.0 Ur Specific [place] 1.015 Urine Protein 500 H Urine Glucose (UA) 100 H Urine Ketones Negative Urine Occult Blood 25 H Urine Nitrite Negative Urine Bilirubin Negative Urine Urobilinogen Normal Ur Leukocyte Esterase 25 H Urine RBC 0 SEEN Urine WBC 0 SEEN Ur Squamous Epith Cells 0 SEEN Urine Bacteria 0 SEEN Urine Mucus 0 SEEN Discharge Plan Triage Chief Complaint: Abd Pain Other Complaint: Back ED Provider: Darius Young Dx/Rx/DC Orders Clinical Impression: Abdominal pain, End-stage renal disease on hemodialysis Prescriptions: No Action carvedilol [Coreg] 12.5 mg tablet 12.5 mg PO 0600,1600 calcium acetate(phosphat bind) 667 mg capsule 2 cap PO 0600,1200,1600 acetaminophen [Tylenol] 325 mg Capsule 650 mg PO Q4H PRN (Reason: Pain) hydrocodone-acetaminophen 5-325 mg tablet 1 tab PO Q6H PRN (Reason: pain) 3 Days Qty: 10 0RF cinacalcet 30 mg Tablet 30 mg PO 0600 multivitamin [Daily-Caron] Tablet 1 tab PO 0600 hydralazine 25 mg tablet 25 mg PO TID sodium bicarbonate 650 mg tablet 650 mg PO DAILY amlodipine 10 mg tablet 10 mg PO 0600 pantoprazole 40 mg tablet,delayed release (DR/EC) 40 mg PO 0800 ferrous sulfate [FeroSul] 325 mg (65 mg iron) tablet 325 mg PO DAILY ascorbic acid (vitamin C) 500 mg capsule 500 mg PO 0800 ciprofloxacin HCl 250 mg tablet 250 mg PO DAILY Qty: 7 0RF atorvastatin 80 mg tablet 80 mg PO QHS 30 Days Qty: 30 0RF clopidogrel 75 mg tablet 75 mg PO DAILY 30 Days Qty: 30 0RF Primary Care Provider: Prince Cummins Referrals: Prince Cummins, DO [Primary Care Provider] - 3-5 Days Activity Restrictions/Additional Instructions: Your urine culture is sent you will be contacted if positive. In the meantime take your antibiotics that you still have left. Use Tylenol. Plan for your dialysis tomorrow your potassium is normal at 4.4. Follow-up with your doctors. Return if worsening symptoms. Disposition Disposition: Home, Self Care
[2022-12-30] MEDS: Morphine 4 MG/ML Syringe IV (19:29)
[2022-12-30 19:30] LABS: Absolute Lymphocyte Count 1.45 X10^3/uL (0.83-4.51); Absolute Neutrophil Count 1.6 X10^3/uL (2.0-7.7); Basophil# 0.04 X10^3/uL; Basophil% 1.1 % (0-1); Eosinophil# 0.08 X10^3/uL; Eosinophils% 2.2 % (0-5); Hematocrit 38.9 % (37-47); Hemoglobin 12.6 g/dL (12.0-15.0); Lymphocyte # 1.45 X10^3/ul (0.83-4.51); Lymphocyte % 39.3 % (19-41); Mean Corp Hgb Conc 32.4 g/dL (32-36); Mean Corpuscular Hgb 30.3 pg (27.0-32.0); Mean Corpuscular Volume 93.5 fL (81-99); Mean Platelet Vol. 8.8 fl (6.2-12.0); Monocyte% 13.6 % (0-10); NRBC Flagged by Analyzer 0 % (0-5); Neutrophil # 1.61 X10^3/uL (2.7-7.7); Neutrophil % 43.5 % (47-70); Platelet Count 269 K/mm3 (150-450); RBC Distribution Width CV 14.8 % (11.6-14.6); RBC Distribution Width SD 50.6 fl (35.1-43.9); Red Blood Count 4.16 M/mm3 (4.2-5.4); White Blood Count 3.7 K/mm3 (4.4-11.0)
[2022-12-30 20:07] LABS: ALB/GLOB Ratio 0.7 RATIO (0.9-2.4); AST(SGOT) 50 U/L (15-37); Alanine Aminotransfer ALT/SGPT 38 U/L (13-56); Albumin, Serum 3.5 g/dL (3.2-5.0); Alkaline Phosphatase 63 U/L (45-117); Anion Gap 7 (5-15); BUN 73 mg/dL (7-18); BUN/Creat Ratio 4.6 RATIO (10-20); Calcium,Total 9.6 mg/dL (8.5-10.1); Chloride 102 mmol/L (98-107); EST Glomerular Filtration Rate 2 mL/min (>60); Est Glom Filt Rate - Afr Amer 3 mL/min (>60); Estimated Creatinine Clearance 2.66 ml/min; Globulin 4.8 g/dL (2.2-4.2); Glucose 133 mg/dL (74-106); Lipase 76 U/L (13-75); Potassium 4.4 mmol/L (3.5-5.1); Protein, Total 8.3 g/dL (6.4-8.2); Sodium Level 138 mmol/L (136-145)
[2022-12-30 21:30] LABS: Bacteria 0 SEEN /hpf (None Seen); Mucous, Urine 0 SEEN /hpf (<or=2+); Red Blood Cells-Urine 0 SEEN /hpf (0-5); Squamous Epithelial Cells - UA 0 SEEN /hpf (5-10); White Blood Cells 0 SEEN /hpf (0-5)
[2022-12-30 21:31] LABS: Color, Urine Yellow (Yellow); Glucose, Dipstick 100 mg/dl (Normal); Ketone-Dipstick Negative (Negative); Leukocyte Esterase-Dipstick 25 /ul (Negative); Nitrite-Dipstick Negative (Negative); Occult Blood-Urine 25 /ul (Negative); Protein-Dipstick 500 mg/dl (Negative); Specific Gravity, Urine 1.015 (1.002-1.030); Urine Bilirubin Dipstick Negative (Negative); Urine Clarity Clear (Clear); Urine Urobilinogen Normal (Normal)
[2022-12-30 22:56] VITALS: BP 171/80; PULSE 78; RESP 16; O2SAT 98
== END 2022-12-30 22:59 | disposition home or self-care (01) ==
PROVIDERS: Emergency Provider Emergency Medicine; PCP Family Medicine; Visit Provider Emergency Medicine
DX: R10.9 Unspecified abdominal pain (principal); Z99.2 Dependence on renal dialysis; N18.6 End stage renal disease; I12.0 Hypertensive chronic kidney disease with stage 5 chronic kidney disease or end stage renal disease; E78.00 Pure hypercholesterolemia, unspecified; Z87.891 Personal history of nicotine dependence; Z86.73 Personal history of transient ischemic attack (TIA), and cerebral infarction without residual deficits; Z99.81 Dependence on supplemental oxygen; Z79.899 Other long term (current) drug therapy
CPT/HCPCS: 51701; 80053; 81001; 83690; 85025; 87086; 87088; 87186; 96374; 99284; P9612; A4216

== ENCOUNTER 2023-01-02 09:35 | Emergency (ER) | payer MEDICAID, SELFPAY ==
[2023-01-02 09:37] VITALS: BP 228/106; PULSE 89; RESP 16; TEMP 36.2; O2SAT 97; BMI 31.4
--- NOTE | 2023-01-02 10:20 | CT_ITS ---
STUDY: CT BRAIN WITHOUT CONTRAST REASON FOR EXAM: Female, 67 years old. Left arm numbness and spasms. RADIATION DOSAGE (If Supplied By Facility): CTDIvol = ( 44.99 ) mGy, DLP = ( 779.24 ) mGycm TECHNIQUE: Transaxial CT imaging of the brain was performed without administration of intravenous contrast material. Individualized dose optimization techniques were used for this CT. COMPARISON: Comparison is made with prior study dated April 08, 2023. FINDINGS: Normal soft tissue structures. Normal calvarium. There is mild cerebral atrophy with widening of the extra-axial spaces and ventricular dilatation. There are areas of decreased attenuation within the white matter tracts of the supratentorial brain, consistent with microvascular disease changes. Stable focal encephalomalacia in the posterior right parietal lobe with calcification adjacent to the posterior right lateral ventricle. Normal basal ganglia and thalami. Normal brainstem. Normal cerebellum. There is no intracranial hemorrhage. There are no findings of an acute ischemic infarction. Atherosclerotic plaque formation of the cavernous portions of the internal carotid arteries bilaterally. Normal visualized paranasal sinuses. CT/Brain/Head without Contrast IMPRESSION: Chronic involutional changes of the brain. Stable examination. Electronically Signed: Tacho Russell MD at 12:09 EDT ,
--- NOTE | 2023-01-02 10:20 | EKG12_ITS ---
Test Reason : GENERAL Blood Pressure : / mmHG Vent. Rate : 087 BPM Atrial Rate : 087 BPM P-R Int : 182 ms QRS Dur : 076 ms QT Int : 382 ms P-R-T Axes : 064 062 -55 degrees QTc Int : 459 ms Normal sinus rhythm Septal infarct , age undetermined ST & T wave abnormality, consider inferior ischemia ST & T wave abnormality, consider anterior ischemia Abnormal ECG Confirmed by ANTONIETA PIZARRO, MEÑO ([id number]), index editor ADRIÁN BURRIS ([id number]) on 01/06/2023 11:45:15 AM Referred By: Wilmer Gallagher Confirmed By:MEÑO FUNG MD
--- NOTE | 2023-01-02 10:23 | EX.ED.UPPERE ---
HPI History of Present Illness Chief Complaint: Upper Extremity Injury Informant: patient Narrative Narrative: Patient presents with spasm or cramping of her left hand. She states she was up and moving. She was getting ready for dialysis. She started to get cramping of her fingers on the left hand. She states they feel a little bit numb but mostly the issue is that they cramp. What she describes as carpopedal spasm. It was only the fingers and may be part of the hand. It did not progress up the wrist or arm. She does not have a headache. No other neurologic symptoms. She is on Plavix but no other blood thinners. She was getting ready to go to dialysis that starts in 30 minutes. She had a little trouble telling me which days she was at dialysis last but states that she does not miss her dialysis. She has been out of blood pressure medicines but she is not exactly sure which one. She has been out of these for about a month. She has been eating and drinking normally. She has a lot of recurrent abdominal complaints that are not different than normal. They are not active. But she states she does not eat well sometimes because of that. The nurse did talk to the family who stated that she is acting totally normal for them. They have not noticed anything different. [facility] Medical History Acute and chronic respiratory failure with hypoxia Ambulates with cane Anemia Asthma Cardiac dysrhythmia, unspecified Chest pain Chronic kidney disease, stage V requiring chronic dialysis Diabetes Easy bruising Edentulous ESRD (end stage renal disease) on dialysis Former smoker Gastric reflux High cholesterol HTN (hypertension) Hypertension Hyponatremia Leg cramps NSTEMI, initial episode of care On home oxygen therapy PONV (postoperative nausea and vomiting) Post-menopausal Rheumatoid arthritis Shortness of breath on exertion SOB (shortness of breath) Stroke Type II diabetes mellitus Wears glasses Home Medications carvedilol 12.5 mg tablet (Coreg) 12.5 mg PO 0600,1600 blood pressure 11/28/20 [History Last Taken 09/19/22] calcium acetate(phosphat bind) 667 mg capsule 2 cap PO 0600,1200,1600 supplement 03/07/22 [History Last Taken 09/19/22] acetaminophen 325 mg capsule (Tylenol) 650 mg PO Q4H PRN Pain 03/08/22 [History Last Taken 03/06/22] hydrocodone-acetaminophen 5-325mg 5mg-325mg 1 tab PO Q6H PRN pain 3 days #10 tabs 09/03/22 [Rx Last Taken 09/19/22] amlodipine 10 mg tablet 10 mg PO 0600 BLOOD PRESSURE 09/19/22 [History Last Taken 09/19/22] ascorbic acid (vitamin C) 500 mg capsule 500 mg PO 0800 SUPPLEMENT 09/19/22 [History Last Taken 09/19/22] cinacalcet 30 mg tablet 30 mg PO 0600 09/19/22 [History Last Taken 09/19/22] ferrous sulfate 325 mg (65 mg iron) tablet (FeroSul) 325 mg PO DAILY SUPPLEMENT 09/19/22 [History Last Taken 09/19/22] hydralazine 25 mg tablet 25 mg PO TID BLOOD PRESSURE 09/19/22 [History Last Taken 09/19/22] multivitamin (Daily-Caron tablet) 1 tab PO 0600 HEALTH MAINTENANCE 09/19/22 [History Last Taken 09/19/22] pantoprazole 40 mg tablet,delayed release 40 mg PO 0800 ACID REFLUX 09/19/22 [History Last Taken 09/19/22] sodium bicarbonate 650 mg tablet 650 mg PO DAILY HEARTBURN 09/19/22 [History Last Taken 09/19/22] ciprofloxacin HCl 250 mg tablet 250 mg PO DAILY #7 tabs 11/24/22 [Rx Last Taken Unknown] atorvastatin 80 mg tablet 80 mg PO QHS 30 days #30 tabs 12/13/22 [Rx Last Taken Unknown] clopidogrel 75 mg tablet 75 mg PO DAILY 30 days #30 tabs 12/13/22 [Rx Last Taken Unknown] Allergy/AdvReac Type Severity Reaction Status Date / Time ceftriaxone Allergy Severe Rash Verified 12/30/22 18:28 vancomycin Allergy Severe Rash Verified 12/30/22 18:28 Penicillins Allergy Swelling Verified 12/30/22 18:28 oxycodone HCl [From Percocet] AdvReac Itching Verified 12/30/22 18:28 Family History Mother Hypertension Emphysema/COPD Sister Hypertension Surgical History H/O: hysterectomy History of arteriovenostomy for renal dialysis History of eye surgery History of surgery knee scope S/P arteriovenous (AV) fistula creation Social History Smoking Status: Former smoker alcohol intake: current details: 1 per week substance use type: does not use what type of physical activity do you participate in: none ROS ROS ED Constitutional Constitutional ED: Denies chills or fever(s) Eyes Eyes: Denies change in vision ENT ENT ED: Denies sore throat Cardiovascular Cardiovascular: Denies chest pain or palpitations Respiratory/Chest Respiratory/Chest: Denies cough Gastrointestinal Gastrointestinal: Denies nausea or vomiting Musculoskeletal Musculoskeletal: Reports other Details: Spasm of fingers on left hand as in history of present illness. ; Denies myalgias Integumentary Denies rash Neurologic Neurologic: Reports paresthesias; Denies headache(s) or weakness Allergic/Immunologic Allergic/Immunologic ED: Denies tongue swelling EXAM Physical Exam Narrative Exam Narrative: Patient is awake alert pleasant no acute distress. HEENT shows some mildly dry mucous membranes but no trauma. Eyes show no icterus Neck is supple. Lungs are clear bilaterally. Saturations are normal at 97% on room air Heart is regular in rate of about 90. Vas-Cath is clean in the right upper chest Abdomen is soft nontender Extremities show no swelling. She is able to use her left hand well. When I have her show me what it look like she pulls all her fingers together and bends her wrist down slightly. But she is able to straighten them up. Sensation is still intact. She can tell exactly what finger and touching. She is appears to have good blood flow to this area also. Const Vital Signs: 01/02/23 09:37 Temperature 97.2 F L Temperature Source Temporal Pulse Rate 89 Respiratory Rate 16 Blood Pressure 228/106 H Blood Pressure Mean 146 Pulse Ox 97 Oxygen Delivery Method Room Air MDM MDM MDM Narrative Medical decision making narrative: My independent interpretation the patient's CT of the head showed no acute bleed. I see no indication of stroke. Final reading did show some atrophy and chronic changes. There were stable changes though. No sign of hemorrhage. Patient CBC shows low white count and hemoglobin. But these are not off of her normal. Electrolytes showed no marked abnormalities. Creatinine was elevated due to her renal disease. Patient's symptoms are more of carpopedal spasm isolated to the left hand/fingers. She did not have weakness. I do not think this represents CVA or TIA. This was likely fluid and/or electrolyte shifts. I think is reasonable we still get her home and to dialysis today if able. I cannot get from her exactly which of her meds for blood pressure she is out of. Therefore it is hard to fill these. I recommend she contact her physician or check her meds when she gets home so these can get filled. Going to dialysis will also likely lower her blood pressure further. Lab Data Attestation: I reviewed the patient's lab results. EKG Initial EKG: Comments: My independent interpretation the patient's EKG shows a normal sinus rhythm with overall rate of 87. Diffuse ST changes that may be related to significantly elevated blood pressure. Patient has no chest pain shortness of breath or other cardiac symptoms. RI interval, QRS duration and QTc are normal. Discharge Plan Triage Chief Complaint: Upper Extremity Injury ED Provider: Wilmer Gallagher Dx/Rx/DC Orders Clinical Impression: Carpopedal spasm, Elevated blood pressure reading Instructions: Muscle Spasm Prescriptions: No Action carvedilol [Coreg] 12.5 mg tablet 12.5 mg PO 0600,1600 calcium acetate(phosphat bind) 667 mg capsule 2 cap PO 0600,1200,1600 acetaminophen [Tylenol] 325 mg Capsule 650 mg PO Q4H PRN (Reason: Pain) hydrocodone-acetaminophen 5-325 mg tablet 1 tab PO Q6H PRN (Reason: pain) 3 Days Qty: 10 0RF cinacalcet 30 mg Tablet 30 mg PO 0600 multivitamin [Daily-Caron] Tablet 1 tab PO 0600 hydralazine 25 mg tablet 25 mg PO TID sodium bicarbonate 650 mg tablet 650 mg PO DAILY amlodipine 10 mg tablet 10 mg PO 0600 pantoprazole 40 mg tablet,delayed release (DR/EC) 40 mg PO 0800 ferrous sulfate [FeroSul] 325 mg (65 mg iron) tablet 325 mg PO DAILY ascorbic acid (vitamin C) 500 mg capsule 500 mg PO 0800 ciprofloxacin HCl 250 mg tablet 250 mg PO DAILY Qty: 7 0RF atorvastatin 80 mg tablet 80 mg PO QHS 30 Days Qty: 30 0RF clopidogrel 75 mg tablet 75 mg PO DAILY 30 Days Qty: 30 0RF Primary Care Provider: Prince Cummins Referrals: Prince Cummins, DO [Primary Care Provider] - 2 Days Activity Restrictions/Additional Instructions: Please check your medications at home to see which one you are out of. Please contact your physician about refilling these as soon as possible. If you can find this information soon, you are welcome to call into the department and I will send a prescription for your missing antihypertensive. Disposition Disposition: Home, Self Care Discharge Date/Time: 01/02/23 12:45
[2023-01-02 11:10] LABS: Absolute Lymphocyte Count 1.25 X10^3/uL (0.83-4.51); Absolute Neutrophil Count 1.5 X10^3/uL (2.0-7.7); Basophil# 0.04 X10^3/uL; Basophil% 1.2 % (0-1); Eosinophils% 2.9 % (0-5); Hematocrit 34.4 % (37-47); Hemoglobin 11.1 g/dL (12.0-15.0); Lymphocyte # 1.25 X10^3/ul (0.83-4.51); Lymphocyte % 36.5 % (19-41); Mean Corp Hgb Conc 32.3 g/dL (32-36); Mean Corpuscular Hgb 30.5 pg (27.0-32.0); Mean Corpuscular Volume 94.5 fL (81-99); Mean Platelet Vol. 8.9 fl (6.2-12.0); Monocyte# 0.52 X10^3/uL; Monocyte% 15.2 % (0-10); NRBC Flagged by Analyzer 0 % (0-5); Neutrophil # 1.51 X10^3/uL (2.7-7.7); Neutrophil % 44.2 % (47-70); Platelet Count 185 K/mm3 (150-450); RBC Distribution Width CV 14.3 % (11.6-14.6); RBC Distribution Width SD 49.7 fl (35.1-43.9); Red Blood Count 3.64 M/mm3 (4.2-5.4); White Blood Count 3.4 K/mm3 (4.4-11.0)
[2023-01-02 11:20] LABS: Anion Gap 7 (5-15); BUN 65 mg/dL (7-18); BUN/Creat Ratio 5.8 RATIO (10-20); Calcium,Total 9.8 mg/dL (8.5-10.1); Chloride 99 mmol/L (98-107); EST Glomerular Filtration Rate 4 mL/min (>60); Est Glom Filt Rate - Afr Amer 4 mL/min (>60); Estimated Creatinine Clearance 3.78 ml/min; Glucose 81 mg/dL (74-106); Potassium 4.2 mmol/L (3.5-5.1); Sodium Level 136 mmol/L (136-145)
[2023-01-02] MEDS: hydrALAZINE 20 MG/ML Vial 10 MG IV (11:37)
[2023-01-02 11:40] VITALS: BP 201/77; PULSE 77; RESP 18; O2SAT 96
[2023-01-02 12:27] VITALS: BP 161/101; PULSE 72; RESP 16; O2SAT 96
== END 2023-01-02 12:45 | disposition home or self-care (01) ==
PROVIDERS: Emergency Provider Emergency Medicine; PCP Family Medicine; Referring Provider Emergency Medicine; Visit Provider Emergency Medicine
DX: R29.0 Tetany (principal); Z99.2 Dependence on renal dialysis; N18.6 End stage renal disease; R03.0 Elevated blood-pressure reading, without diagnosis of hypertension; I25.2 Old myocardial infarction; Z86.73 Personal history of transient ischemic attack (TIA), and cerebral infarction without residual deficits; Z79.01 Long term (current) use of anticoagulants; Z87.891 Personal history of nicotine dependence
CPT/HCPCS: 70450; 80048; 85025; 93005; 96374; 99285; A4216

== ENCOUNTER 2023-01-28 11:43 | Inpatient (IN) | payer MEDICAID, SELFPAY ==
[2023-01-28] VITALS (11 sets, daily range): BP systolic 106–209; BP diastolic 60–110; PULSE 70–83; RESP 12–24; TEMP 36.8–36.9; O2SAT 94–100; BMI 30.7; BMI 29.8
--- NOTE | 2023-01-28 12:01 | EKG12_ITS ---
Test Reason : SOB Blood Pressure : / mmHG Vent. Rate : 080 BPM Atrial Rate : 080 BPM P-R Int : 174 ms QRS Dur : 080 ms QT Int : 392 ms P-R-T Axes : 060 056 023 degrees QTc Int : 452 ms Normal sinus rhythm Septal infarct , age undetermined Abnormal ECG Confirmed by ANTONIETA PIZARRO, MEÑO ([id number]), news assignment editor ADRIÁN BURRIS ([id number]) on 01/30/2023 9:37:14 AM Referred By: Confirmed By:MEÑO FUNG MD
--- NOTE | 2023-01-28 12:01 | CT_ITS ---
STUDY: CT ABDOMEN AND PELVIS WITHOUT CONTRAST REASON FOR EXAM: Female, 67 years old. Shortness of breath and abdominal pain. RADIATION DOSAGE (If Supplied By Facility): CTDIvol = ( 10.83 ) mGy, DLP = ( 445.46 ) mGycm TECHNIQUE: Transaxial images were obtained from the dome of the diaphragm to the symphysis pubis without oral contrast, and without intravenous contrast. Sagittal and coronal images were reconstructed. Individualized dose optimization techniques were used for this CT. COMPARISON: Comparison is made with prior study dated July 28, 2022. FINDINGS: Minimal degree of increased markings at the lung bases suggestive of bibasilar atelectasis. Coronary artery calcification. Minimal degree of anterior pericardial thickening. Normal liver. Normal gallbladder and extrahepatic biliary system. Normal spleen. Normal pancreas. Normal bilateral adrenal glands. Tiny nonobstructive intrarenal calculi in the upper pole of the right kidney. Tiny nonobstructive calculus in the upper pole calyx of the left kidney. Normal visualized stomach. Normal small intestine. There are multiple colonic diverticula consistent with diverticulosis. There is non-visualization of the appendix. There is extensive atherosclerotic calcification of the abdominal aorta and its major visceral branches, without a demonstrated aneurysm. Normal inferior vena cava. Normal retroperitoneum. Normal urinary bladder. There is absence of the uterus consistent with a prior hysterectomy. Normal abdominal wall. There are diffuse degenerative changes of the visualized lumbar spine. CT/Abdomen/Pelvis without Cont IMPRESSION: Extensive atherosclerotic calcification of the aorta and its major visceral branches. Sigmoid diverticulosis. Nonobstructive bilateral intrarenal calculi. Mild degree of increased markings at the lung bases suggestive of atelectasis. Electronically Signed: Tacho Russell MD at 14:03 EDT ,
--- NOTE | 2023-01-28 12:04 | EX.ED.DYSGE1 ---
HPI History of Present Illness Chief Complaint: Shortness of Breath Detail of Chief Complaint: Abdominal pain and back pain and shortness of breath Informant: patient Narrative Narrative: Patient presents to the emergency department complaint of abdominal pain and back pain that she had for 4 to 5 months. Patient states that she went to dialysis today and because she was complaining of all this pain they did not dialyze her but they spoke with the geospatial information technologist who asked her to be transferred to the emergency department for evaluation. Patient states that she missed her dialysis 4 days ago and went in today and did not get dialyzed. Her shortness of breath is chronic and it is no different than usual. Patient denies any fever or significant cough. She denies chest pain. Patient's had diarrhea for about 4 days. She denies blood in her stool or black tarry stool. She denies any injury to her back. She had nausea but no vomiting. Prior similar symptoms: [facility] Medical History Acute and chronic respiratory failure with hypoxia Ambulates with cane Anemia Asthma Cardiac dysrhythmia, unspecified Chest pain Chronic kidney disease, stage V requiring chronic dialysis Diabetes Easy bruising Edentulous ESRD (end stage renal disease) on dialysis Former smoker Gastric reflux High cholesterol HTN (hypertension) Hypertension Hyponatremia Leg cramps NSTEMI, initial episode of care On home oxygen therapy PONV (postoperative nausea and vomiting) Post-menopausal Rheumatoid arthritis Shortness of breath on exertion SOB (shortness of breath) Stroke Type II diabetes mellitus Wears glasses Home Medications carvedilol 12.5 mg tablet (Coreg) 12.5 mg PO 0600,1600 blood pressure 11/28/20 [History Last Taken 09/19/22] calcium acetate(phosphat bind) 667 mg capsule 2 cap PO 0600,1200,1600 supplement 03/07/22 [History Last Taken 09/19/22] acetaminophen 325 mg capsule (Tylenol) 650 mg PO Q4H PRN Pain 03/08/22 [History Last Taken 03/06/22] hydrocodone-acetaminophen 5-325mg 5mg-325mg 1 tab PO Q6H PRN pain 3 days #10 tabs 09/03/22 [Rx Last Taken 09/19/22] amlodipine 10 mg tablet 10 mg PO 0600 BLOOD PRESSURE 09/19/22 [History Last Taken 09/19/22] ascorbic acid (vitamin C) 500 mg capsule 500 mg PO 0800 SUPPLEMENT 09/19/22 [History Last Taken 09/19/22] cinacalcet 30 mg tablet 30 mg PO 0600 09/19/22 [History Last Taken 09/19/22] ferrous sulfate 325 mg (65 mg iron) tablet (FeroSul) 325 mg PO DAILY SUPPLEMENT 09/19/22 [History Last Taken 09/19/22] hydralazine 25 mg tablet 25 mg PO TID BLOOD PRESSURE 09/19/22 [History Last Taken 09/19/22] multivitamin (Daily-Caron tablet) 1 tab PO 0600 HEALTH MAINTENANCE 09/19/22 [History Last Taken 09/19/22] pantoprazole 40 mg tablet,delayed release 40 mg PO 0800 ACID REFLUX 09/19/22 [History Last Taken 09/19/22] sodium bicarbonate 650 mg tablet 650 mg PO DAILY HEARTBURN 09/19/22 [History Last Taken 09/19/22] ciprofloxacin HCl 250 mg tablet 250 mg PO DAILY #7 tabs 11/24/22 [Rx Last Taken Unknown] clopidogrel 75 mg tablet 75 mg PO DAILY 30 days #30 tabs 01/09/23 [Rx Last Taken Unknown] atorvastatin 80 mg tablet 80 mg PO QHS 30 days #30 tabs 01/14/23 [Rx Last Taken Unknown] Allergy/AdvReac Type Severity Reaction Status Date / Time ceftriaxone Allergy Severe Rash Verified 12/30/22 18:28 vancomycin Allergy Severe Rash Verified 12/30/22 18:28 Penicillins Allergy Swelling Verified 12/30/22 18:28 oxycodone HCl [From Percocet] AdvReac Itching Verified 12/30/22 18:28 Family History Mother Hypertension Emphysema/COPD Sister Hypertension Surgical History H/O: hysterectomy History of arteriovenostomy for renal dialysis History of eye surgery History of surgery knee scope S/P arteriovenous (AV) fistula creation Social History Smoking Status: Former smoker alcohol intake: current details: 1 per week substance use type: does not use what type of physical activity do you participate in: none ROS ROS ED Review of Systems ROS Unobtainable: other Constitutional Constitutional ED: Reports lethargy; Denies chills, fever(s), sweats or weight loss Eyes Eyes: Denies blurry vision, change in vision or diplopia ENT ENT ED: Denies rhinorrhea or sore throat Cardiovascular Cardiovascular: Denies chest pain, orthopnea or racing heartbeat Respiratory/Chest Respiratory/Chest: Reports dyspnea and dyspnea on exertion; Denies cough, orthopnea or sputum Gastrointestinal Gastrointestinal: Reports abdominal pain, diarrhea and nausea; Denies vomiting Genitourinary Genitourinary ED: Denies dysuria, hematuria or urinary frequency Musculoskeletal Musculoskeletal: Reports back pain; Denies arthralgias, myalgias or neck pain Integumentary Denies abscess, Abrasions or rash Neurologic Neurologic: Denies headache(s) or weakness Psychiatric Psychiatric: Denies anxiety, depression or suicidal thoughts Endocrine Endocrinology: Denies polydipsia, polyphagia or polyuria Hematologic/Lymphatic Hematologic/Lymphatic: Denies easy bleeding, easy bruising or lymphadenopathy Allergic/Immunologic Allergic/Immunologic ED: Denies mouth swelling, tongue swelling or urticaria EXAM Physical Exam Const Vital Signs: 01/28/23 11:46 01/28/23 11:55 01/28/23 12:47 Temperature 98.4 F Temperature Source Oral Pulse Rate 80 76 Respiratory Rate 24 H 12 Respiratory Effort Short of Breath Respiratory Depth Normal Blood Pressure 209/87 H 165/70 H Blood Pressure Mean 127 101 Pulse Ox 100 100 Oxygen Delivery Method Room Air Room Air Nasal Cannula Oxygen Flow Rate (L/min) 3 01/28/23 13:07 Temperature Temperature Source Pulse Rate 70 Respiratory Rate 17 Respiratory Effort Respiratory Depth Blood Pressure 163/70 H Blood Pressure Mean 101 Pulse Ox 100 Oxygen Delivery Method Nasal Cannula Oxygen Flow Rate (L/min) 3 Positive well nourished and well developed General Appearance ED: well developed and NAD HEENT Reports TM's clear and moist mucous membranes normocephalic and atraumatic; Negative for trauma or tenderness Tympanic Membrane ED: Yes TM's clear Eyes PERRL and EOMs intact bilaterally General Eye ED: Negative for pale conjunctiva or scleral icterus Neck no lymphadenopathy, supple and no JVD General: Negative for tenderness Chest Wall inspection of chest normal and palpation of chest normal Chest: Negative for tenderness Resp normal respiratory effort and clear to auscultation bilaterally Effort and Inspection: Negative for respiratory distress or pain with movement Auscultation: Negative for rhonchi, wheezes or diminished lung sounds Cardio regular rate, regular rhythm, S1 normal heart sound, S2 normal heart sound and no murmurs Peripheral Pulses: pulses 2+ throughout GI normal to inspection, nondistended, normoactive bowel sounds, soft to palpation, non-distended and no masses GI Narrative: Tenderness to palpation over right upper quadrant and epigastric region. There is no rebound, rigidity, or peritoneal signs. Back/Spine no CVA tenderness Back/Spine Narrative: Patient has diffuse tenderness over the lower thoracic paraspinal musculature bilaterally as well as the lower thoracic and lumbar spine. Also with tenderness diffusely over the lumbar paraspinal musculature. Extremity normal to inspection General Extremety ED: Negative for edema General Extremity: Negative for edema Neuro oriented x3, CN's II-XII intact bilaterally, no sensory deficits noted and gait normal Sensorium / Orientation: awake, alert, oriented to person, oriented to place and oriented to time Motor Exam: strength 5/5 throughout and strength abnormal Psych mental status grossly normal Skin no rashes or lesions noted and no wounds MDM MDM MDM Narrative Medical decision making narrative: Patient presents with multiple complaints from dialysis. She has not received dialysis in about 5 days. Patient also has had diarrhea. Complains mostly of abdomen pain and back pain. Patient tells me she is always short of breath and is normally on 3 L nasal cannula O2. IV line established on arrival. Patient placed on quality assurance monitor body. EKG obtained showed sinus rhythm with a rate of 80 bpm with old septal infarct. CBC with a was unremarkable and that her white count was five-point. She has anemia with current globin of 9.5 and platelet count of 175. Patient's troponin was elevated at 402 BUN was 88 and creatinine 14.3. Lactate was normal at 0.8. Urinalysis normal. Chest x-ray unremarkable. Case will be discussed with hospitalist to evaluate patient for admission. Patient will require dialysis and further evaluation for possible non-ST elevation LA. I did start patient on heparin drip. Patient received aspirin in the department. Patient also had a CT scan of the abdomen pelvis that was unremarkable. Lab Data Attestation: I reviewed the patient's lab results. Labs: Laboratory Results - last 24 hr 01/28/23 01/28/23 01/28/23 12:17 12:17 12:17 WBC Cancelled Corrected WBC Cancelled RBC Cancelled Hgb Cancelled Hct Cancelled MCV Cancelled MCH Cancelled MCHC Cancelled RDW Std Deviation Cancelled RDW Coeff of Dottie Cancelled Plt Count Cancelled MPV Cancelled Immature Gran % (Auto) Cancelled Neut % (Auto) Cancelled Lymph % (Auto) Cancelled [place] % (Auto) Cancelled Eos % (Auto) Cancelled Baso % (Auto) Cancelled Absolute Neuts (auto) Cancelled Absolute Lymphs (auto) Cancelled Total Counted Cancelled Neutrophils % (Manual) Cancelled Band Neutrophils % Cancelled Lymphocytes % (Manual) Cancelled Monocytes % (Manual) Cancelled Eosinophils % (Manual) Cancelled Basophils % (Manual) Cancelled Metamyelocytes % Cancelled Myelocytes % Cancelled Promyelocytes % Cancelled Blast Cells % Cancelled Plasma Cell % (Manual) Cancelled Other Cells % Cancelled Nucleated RBC % Cancelled Nucleated RBCs/100 WBC Cancelled Differential Comment Cancelled Diff Path Review Cancelled Hypersegmented Neuts Cancelled Atypical Lymphocytes Cancelled Reactive Lymphocytes Cancelled Smudge Cells Cancelled Toxic Granulation Cancelled Toxic Vacuolation Cancelled Dohle Bodies Cancelled Linda Rods Cancelled Platelet Estimate Cancelled Plt Morphology Comment Cancelled RBC Morphology Cancelled Polychromasia Cancelled Hypochromasia Cancelled Poikilocytosis Cancelled Basophilic Stippling Cancelled Anisocytosis Cancelled Microcytosis Cancelled Macrocytosis Cancelled Spherocytes Cancelled Sickle Cells Cancelled Target Cells Cancelled Tear Drop Cells Cancelled Ovalocytes Cancelled Stomatocytes Cancelled Schmitz-Stallings Bodies Cancelled [place] Cells Cancelled Bite Cells Cancelled Crenated Cell Cancelled Acanthocytes (Spur) Cancelled Rouleaux Cancelled Schistocytes Cancelled Sodium 141 Potassium 5.0 Chloride 106 Carbon Dioxide 24.0 Anion Gap 11 BUN 88 H Creatinine 14.30 H* Estim Creat Clear Calc 2.96 Est GFR (MDRD) Af Amer 3 L Est GFR (MDRD) Non-Af 3 L BUN/Creatinine Ratio 6.2 L Glucose 81 Lactic Acid 0.8 Calcium 8.9 Total Bilirubin 0.40 AST 51 H ALT 51 Alkaline Phosphatase 67 Troponin I High Sens 402 H* Total Protein 8.9 H Albumin 3.6 Globulin 5.3 H Albumin/Globulin Ratio 0.7 L Urine Color Urine Clarity Urine pH Ur Specific [place] Urine Protein Urine Glucose (UA) Urine Ketones Urine Occult Blood Urine Nitrite Urine Bilirubin Urine Urobilinogen Ur Leukocyte Esterase Urine RBC Urine WBC Ur Squamous Epith Cells Urine Bacteria Urine Mucus 01/28/23 01/28/23 12:50 13:16 WBC 5.4 Corrected WBC RBC 3.20 L Hgb 9.5 L Hct 30.3 L MCV 94.7 MCH 29.7 MCHC 31.4 L RDW Std Deviation 45.8 H RDW Coeff of Dottie 13.2 Plt Count 175 MPV 10.5 Immature Gran % (Auto) 0.600 Neut % (Auto) 65.2 Lymph % (Auto) 21.0 [place] % (Auto) 10.6 H Eos % (Auto) 2.0 Baso % (Auto) 0.6 Absolute Neuts (auto) 3.5 Absolute Lymphs (auto) 1.13 Total Counted Neutrophils % (Manual) Band Neutrophils % Lymphocytes % (Manual) Monocytes % (Manual) Eosinophils % (Manual) Basophils % (Manual) Metamyelocytes % Myelocytes % Promyelocytes % Blast Cells % Plasma Cell % (Manual) Other Cells % Nucleated RBC % 0 Nucleated RBCs/100 WBC Differential Comment Diff Path Review Hypersegmented Neuts Atypical Lymphocytes Reactive Lymphocytes Smudge Cells Toxic Granulation Toxic Vacuolation Dohle Bodies Linda Rods Platelet Estimate Plt Morphology Comment RBC Morphology Polychromasia Hypochromasia Poikilocytosis Basophilic Stippling Anisocytosis Microcytosis Macrocytosis Spherocytes Sickle Cells Target Cells Tear Drop Cells Ovalocytes Stomatocytes Schmitz-Stallings Bodies Sherin Cells Bite Cells Crenated Cell Acanthocytes (Spur) Rouleaux Schistocytes Sodium Potassium Chloride Carbon Dioxide Anion Gap BUN Creatinine Estim Creat Clear Calc Est GFR (MDRD) Af Amer Est GFR (MDRD) Non-Af BUN/Creatinine Ratio Glucose Lactic Acid Calcium Total Bilirubin AST ALT Alkaline Phosphatase Troponin I High Sens Total Protein Albumin Globulin Albumin/Globulin Ratio Urine Color Yellow Urine Clarity Clear Urine pH 8.0 Ur Specific [place] 1.015 Urine Protein 500 H Urine Glucose (UA) 50 H Urine Ketones 5 H Urine Occult Blood 50 H Urine Nitrite Negative Urine Bilirubin Negative Urine Urobilinogen Normal Ur Leukocyte Esterase Negative Urine RBC 0-5 SEEN Urine WBC 0 SEEN Ur Squamous Epith Cells 0 SEEN Urine Bacteria 0 SEEN Urine Mucus 0 SEEN Radiography Diagnostic Testing: Clinical Impression(s) from Imaging Studies Abdomen/Pelvis CT 01/28/23 12:01 IMPRESSION: Extensive atherosclerotic calcification of the aorta and its major visceral branches. Sigmoid diverticulosis. Nonobstructive bilateral intrarenal calculi. Mild degree of increased markings at the lung bases suggestive of atelectasis. Electronically Signed: Tacho Russell MD at 14:03 EDT , Chest X-Ray 01/28/23 13:54 IMPRESSION: No acute abnormality is seen. Electronically Signed: Tacho Russell MD at 14:21 EDT , Discharge Plan Dx/Rx/DC Orders Clinical Impression: Non-ST elevated myocardial infarction, Chronic progressive renal failure, Abdominal pain, History of hypertension Disposition Disposition: Acute Care Hospital [facility]
[2023-01-28] MEDS: Morphine 4 MG/ML Syringe IV (12:23)
[2023-01-28] MEDS: Ondansetron 4 MG/2 ML Vial IV (12:23)
[2023-01-28] MEDS: 0.9% Normal Saline 1,000 ML 15 ML IV (12:23)
[2023-01-28 12:53] LABS: Absolute Lymphocyte Count 1.13 X10^3/uL (0.83-4.51); Absolute Neutrophil Count 3.5 X10^3/uL (2.0-7.7); Basophil# 0.03 X10^3/uL; Basophil% 0.6 % (0-1); Eosinophil# 0.11 X10^3/uL; Hematocrit 30.3 % (37-47); Hemoglobin 9.5 g/dL (12.0-15.0); Lymphocyte # 1.13 X10^3/ul (0.83-4.51); Mean Corp Hgb Conc 31.4 g/dL (32-36); Mean Corpuscular Hgb 29.7 pg (27.0-32.0); Mean Corpuscular Volume 94.7 fL (81-99); Mean Platelet Vol. 10.5 fl (6.2-12.0); Monocyte# 0.57 X10^3/uL; Monocyte% 10.6 % (0-10); NRBC Flagged by Analyzer 0 % (0-5); Neutrophil # 3.51 X10^3/uL (2.7-7.7); Neutrophil % 65.2 % (47-70); Platelet Count 175 K/mm3 (150-450); RBC Distribution Width CV 13.2 % (11.6-14.6); RBC Distribution Width SD 45.8 fl (35.1-43.9); White Blood Count 5.4 K/mm3 (4.4-11.0)
[2023-01-28 13:00] LABS: ALB/GLOB Ratio 0.7 RATIO (0.9-2.4); AST(SGOT) 51 U/L (15-37); Alanine Aminotransfer ALT/SGPT 51 U/L (13-56); Albumin, Serum 3.6 g/dL (3.2-5.0); Alkaline Phosphatase 67 U/L (45-117); Anion Gap 11 (5-15); BUN 88 mg/dL (7-18); BUN/Creat Ratio 6.2 RATIO (10-20); Calcium,Total 8.9 mg/dL (8.5-10.1); Chloride 106 mmol/L (98-107); EST Glomerular Filtration Rate 3 mL/min (>60); Est Glom Filt Rate - Afr Amer 3 mL/min (>60); Estimated Creatinine Clearance 2.96 ml/min; Globulin 5.3 g/dL (2.2-4.2); Glucose 81 mg/dL (74-106); Lactic Acid 0.8 mmol/L (0.4-1.9); Protein, Total 8.9 g/dL (6.4-8.2); Sodium Level 141 mmol/L (136-145); Troponin-I HS 402 pg/mL (3.0-54.0)
[2023-01-28] MEDS: Aspirin 81 MG TAB.CHEW 162 MG PO (13:06)
[2023-01-28 13:24] LABS: Bacteria 0 SEEN /hpf (None Seen); Mucous, Urine 0 SEEN /hpf (<or=2+); Squamous Epithelial Cells - UA 0 SEEN /hpf (5-10); White Blood Cells 0 SEEN /hpf (0-5)
[2023-01-28 13:33] LABS: Color, Urine Yellow (Yellow); Glucose, Dipstick 50 mg/dl (Normal); Ketone-Dipstick 5 mg/dl (Negative); Leukocyte Esterase-Dipstick Negative /ul (Negative); Nitrite-Dipstick Negative (Negative); Occult Blood-Urine 50 /ul (Negative); Protein-Dipstick 500 mg/dl (Negative); Specific Gravity, Urine 1.015 (1.002-1.030); Urine Bilirubin Dipstick Negative (Negative); Urine Clarity Clear (Clear); Urine Urobilinogen Normal (Normal)
[2023-01-28 13:44] LABS: Red Blood Cells-Urine 0-5 SEEN /hpf (0-5)
--- NOTE | 2023-01-28 13:54 | RAD_ITS ---
STUDY: X-RAY CHEST REASON FOR EXAM: Female, 67 years old. Dyspnea and shortness of breath. TECHNIQUE: Single AP portable view of the chest. COMPARISON: Comparison is made with prior study dated September 19, 2022. FINDINGS: EKG electrodes are seen. A right-sided double lumen catheter seen with the tip at the junction of the superior vena cava and right atrium. The lungs are clear and expanded. There is no demonstrated pleural abnormality. Normal size heart. Normal mediastinum and gaye. Normal visualized pulmonary arteries. There is atherosclerotic calcification of the aortic arch with tortuosity. Normal visualized thoracic spine. Normal visualized ribs, clavicles, and shoulders. There is no demonstrated abnormality of the visualized soft tissue structures of the upper abdomen. RAD/Chest 1 View (Portable) IMPRESSION: No acute abnormality is seen. Electronically Signed: Tacho Russell MD at 14:21 EDT ,
--- NOTE | 2023-01-28 14:35 | HP.PCM.HOS_ITS ---
HPI - General General Date of Admission: 01/28/23 Date of Service: 01/28/23 Chief Complaint: shortness of breath HPI Narrative NATALI KINSEY, is a 67 F with a PMh as outlined who presents via the ED on 01/28/2023 with a complaint of shortness of breath and abdominal and chest pain. SHe usually wears 3L of oxygen at home. She came in from her dialysis center with a complaint of shortness of breath, abdominal and back pain which had been going on for ~ 3-4 months. SHe said she usually wore 3L at home, and felt her shortness of breath was worse than usual. SHe missed dialysis on Friday and was also not dialysed today. She denied any nausea, vomiting or any other issues. Review of systems is otherwise negative. Vitals were bp of 163/70, ND of 70, RR of 17 and she was saturating at 100% on 3L of oxygen. CBC showed Hb of 9.5, wbc of 5.4 and platelets of 175. Chemistry was significant for sodium of 141 with potassium of 5 and Cr of 14.3. Initial troponin was 402 and Urinalysis was significant for elevated protein, glucose an d urine ketones as well as occult blood of 50/ul H. SHe is being admitted to be managed for chest pain to rule out ACS and missed dialysis. [facility] Medical History (Updated 01/28/23 @ 15:52 by Precious Montes) Acute and chronic respiratory failure with hypoxia Ambulates with cane Anemia Asthma Cardiac dysrhythmia, unspecified Chest pain Chronic kidney disease, stage V requiring chronic dialysis Diabetes Dialysis patient Easy bruising Edentulous ESRD (end stage renal disease) on dialysis Former smoker Gastric reflux GI bleed Hepatitis High cholesterol HTN (hypertension) Hypertension Hypertension Hyponatremia Kidney disease Leg cramps NSTEMI, initial episode of care On home oxygen therapy PONV (postoperative nausea and vomiting) Post-menopausal Rheumatoid arthritis Shortness of breath on exertion SOB (shortness of breath) Stroke Substance abuse Type II diabetes mellitus Wears glasses Home Medications carvedilol 12.5 mg tablet (Coreg) 12.5 mg PO BID HEART 11/28/20 [History Last Taken 2 Days Ago ~01/26/23] calcium acetate(phosphat bind) 667 mg capsule 2 cap PO TID SUPPLEMENT 03/07/22 [History Last Taken 2 Days Ago ~01/26/23] amlodipine 10 mg tablet 10 mg PO DAILY BLOOD PRESSURE 09/19/22 [History Last Taken 2 Days Ago ~01/26/23] cinacalcet 30 mg tablet 30 mg PO DAILY DIALYSIS 09/19/22 [History Last Taken 2 Days Ago ~01/26/23] hydralazine 25 mg tablet 25 mg PO TID BLOOD PRESSURE 09/19/22 [History Last Taken 2 Days Ago ~01/26/23] multivitamin (Daily-Caron tablet) 1 tab PO DAILY HEALTH MAINTENANCE 09/19/22 [History Last Taken 2 Days Ago ~01/26/23] atorvastatin 80 mg tablet 80 mg PO QHS CHOLESTEROL 01/28/23 [History Last Taken 2 Days Ago ~01/26/23] clopidogrel 75 mg tablet 75 mg PO DAILY BLOOD THINNER 01/28/23 [History Last Taken 2 Days Ago ~01/26/23] sevelamer carbonate 800 mg tablet 800 mg PO TID DIALYSIS 01/28/23 [History Last Taken 2 Days Ago ~01/26/23] Allergy/AdvReac Type Severity Reaction Status Date / Time ceftriaxone Allergy Severe Rash Verified 12/30/22 18:28 vancomycin Allergy Severe Rash Verified 12/30/22 18:28 Penicillins Allergy Swelling Verified 01/28/23 15:20 oxycodone HCl [From Percocet] AdvReac Intermediate Itching Verified 01/28/23 15:20 Family History Mother Hypertension Emphysema/COPD Sister Hypertension Surgical History H/O: hysterectomy History of arteriovenostomy for renal dialysis History of eye surgery History of surgery knee scope S/P arteriovenous (AV) fistula creation Social History Smoking Status: Former smoker alcohol intake: current details: 1 per week substance use type: does not use what type of physical activity do you participate in: none ROS Constitutional Constitutional: Denies anorexia, chills, fatigue or fever(s) ENT HEENT: Denies dysphagia, headache(s), hearing loss or nasal discharge Cardiovascular Cardiovascular: Reports chest pain and dyspnea on exertion; Denies edema, lightheadedness, orthopnea, palpitations, paroxysmal nocturnal dyspnea, rapid heart rate or syncope Respiratory/Chest Respiratory/Chest: Reports dyspnea, hemoptysis, shortness of breath at rest and shortness of breath with exertion; Denies excessive phlegm production, productiv e cough or wheezing Gastrointestinal Gastrointestinal: Denies abdominal pain, constipation, diarrhea, nausea or vomiting Genitourinary Genitourinary: Denies burning urination or dysuria Musculoskeletal Musculoskeletal: Denies arthralgias or back pain Neurologic Neurologic: Denies confusion, dizziness, numbness, paresthesias, seizure-like activity or seizures Psychiatric Psychiatric: Denies anxiety Hematologic/Lymphatic Hematologic/Lymphatic: Denies anemia Vital Signs Vital Signs Vital Signs: 01/28/23 11:46 01/28/23 11:55 01/28/23 12:47 Temperature 98.4 F Temperature Source Oral Pulse Rate 80 76 Respiratory Rate 24 H 12 Respiratory Effort Short of Breath Respiratory Depth Normal Blood Pressure 209/87 H 165/70 H Blood Pressure Mean 127 101 Pulse Ox 100 100 Oxygen Delivery Method Room Air Room Air Nasal Cannula Oxygen Flow Rate (L/min) 3 01/28/23 13:07 Temperature Temperature Source Pulse Rate 70 Respiratory Rate 17 Respiratory Effort Respiratory Depth Blood Pressure 163/70 H Blood Pressure Mean 101 Pulse Ox 100 Oxygen Delivery Method Nasal Cannula Oxygen Flow Rate (L/min) 3 Weight Weight: 162 lb 11.218 oz Body Mass Index (BMI) 30.7 Physical Exam Const alert, oriented x3 and no apparent distress General Appearance: cooperative HEENT normocephalic, head/scalp atraumatic, hearing grossly normal bilaterally and moist oral mucous membranes Mouth: oral and palatal mucosa normal Eyes PERRL, EOMs intact bilaterally and conjunctivae normal Neck no lymphadenopathy and supple Resp Resp Narrative: mildly diminished breath sounds bibasally, few crackles bilaterally. On 3L of oxygen by nasal canula Cardio regular rate, regular rhythm, S1 normal heart sound, S2 normal heart sound and no murmurs GI normal to inspection, nondistended, normoactive bowel sounds and soft to palpation GI Narrative: mild RUQ tenderness, no guarding or rebound tenderness. ? positive Martinez's sign Extremity normal to inspection, full ROM and no clubbing, cyanosis or edema Skin Skin Narrative: dialysis catheter in left chest Neuro oriented x3, CN's II-XII intact bilaterally, moves all extremities and no focal motor deficits Sensorium / Orientation: awake and alert Motor Exam: strength 5/5 throughout Psych affect normal Results Lab / Micro Data Result Diagrams: 01/28/23 12:50 01/28/23 12:17 Labs: Laboratory Results - last 24 hr 01/28/23 12:17: WBC Cancelled, Corrected WBC Cancelled, RBC Cancelled, Hgb Cancelled, Hct Cancelled, MCV Cancelled, MCH Cancelled, MCHC Cancelled, RDW Std Deviation Cancelled, RDW Coeff of Dottie Cancelled, Plt Count Cancelled, MPV Cancelled, Immature Gran % (Auto) Cancelled, Neut % (Auto) Cancelled, Lymph % (Auto) Cancelled, [place] % (Auto) Cancelled, Eos % (Auto) Cancelled, Baso % (Auto) Cancelled, Absolute Neuts (auto) Cancelled, Absolute Lymphs (auto) Cancelled, To matthew Counted Cancelled, Neutrophils % (Manual) Cancelled, Band Neutrophils % Cancelled, Lymphocytes % (Manual) Cancelled, Monocytes % (Manual) Cancelled, Eosinophils % (Manual) Cancelled, Basophils % (Manual) Cancelled, Metamyelocytes % Cancelled, Myelocytes % Cancelled, Promyelocytes % Cancelled, Blast Cells % Cancelled, Plasma Cell % (Manual) Cancelled, Other Cells % Cancelled, Nucleated RBC % Cancelled, Nucleated RBCs/100 WBC Cancelled, Differential Comment Cancelled, Diff Path Review Cancelled, Hypersegmented Neuts Cancelled, Atypical Lymphocytes Cancelled, Reactive Lymphocytes Cancelled, Smudge Cells Cancelled, Toxic Granulation Cancelled, Toxic Vacuolation Cancelled, Dohle Bodies Cancel led, Linda Rods Cancelled, Platelet Estimate Cancelled, Plt Morphology Comment Cancelled, RBC Morphology Cancelled, Polychromasia Cancelled, Hypochromasia Cancelled, Poikilocytosis Cancelled, Basophilic Stippling Cancelled, Anisocytosis Cancelled, Microcytosis Cancelled, Macrocytosis Cancelled, Spher ocytes Cancelled, Sickle Cells Cancelled, Target Cells Cancelled, Tear Drop Cells Cancelled, Ovalocytes Cancelled, Stomatocytes Cancelled, Schmitz-[place] Bodies Cancelled, Sherin Cells Cancelled, Bite Cells Cancelled, Crenated Cell Cancelled, Acanthocytes (Spur) Cancelled, Rouleaux Cancelled, Schistocytes Cancelled 01/28/23 12:17: Sodium 141, Potassium 5.0, Chloride 106, Carbon Dioxide 24.0, Anion Gap 11, BUN 88 H, Creatinine 14.30 H*, Estim Creat Clear Calc 2.96, Est GFR (MDRD) Af Amer 3 L, Est GFR (MDRD) Non-Af 3 L, BUN/Creatinine Ratio 6.2 L, Glucose 81, Calcium 8.9, Total Bilirubin 0.40, AST 51 H, ALT 51, Alkaline Phosphatase 67, Troponin I High Sens 402 H*, Total Protein 8.9 H, Albumin 3.6, Globulin 5.3 H, Albumin/Globulin Ratio 0.7 L 01/28/23 12:17: Lactic Acid 0.8 01/28/23 12:50: WBC 5.4, RBC 3.20 L, Hgb 9.5 L, Hct 30.3 L, MCV 94.7, MCH 29.7, MCHC 31.4 L, RDW Std Deviation 45.8 H, RDW Coeff of Dottie 13.2, Plt Count 175, MPV 10.5, Immature Gran % (Auto) 0.600, Neut % (Auto) 65.2, Lymph % (Auto) 21.0, [place] % (Auto) 10.6 H, Eos % (Auto) 2.0, Baso % (Auto) 0.6, Absolute Neuts (auto) 3.5, Absolute Lymphs (auto) 1.13, Nucleated RBC % 0 01/28/23 13:16: Urine Color Yellow, Urine Clarity Clear, Urine pH 8.0, Ur Specific [place] 1.015, Urine Protein 500 H, Urine Glucose (UA) 50 H, Urine Ketones 5 H, Urine Occult Blood 50 H, Urine Nitrite Negative, Urine Bilirubin Negative, Urine Urobilinogen Normal, Ur Leukocyte Esterase Negative, Urine RBC 0-5 SEEN, Urine WBC 0 SEEN, Ur Squamous Epith Cells 0 SEEN, Urine Bacteria 0 SEEN, Urine Mucus 0 SEEN Radiology Impression Abdomen/Pelvis CT 01/28/23 12:01 IMPRESSION: Extensive atherosclerotic calcification of the aorta and its major visceral branches. Sigmoid diverticulosis. Nonobstructive bilateral intrarenal calculi. Mild degree of increased markings at the lung bases suggestive of atelectasis. Electronically Signed: Tacho Russell MD at 14:03 EDT , Chest X-Ray 01/28/23 13:54 IMPRESSION: No acute abnormality is seen. Electronically Signed: Tacho Russell MD at 14:21 EDT , Assessment & Plan Assessment/Plan (1) Non-ST elevated myocardial infarction: (2) Chronic progressive renal failure: (3) Abdominal pain: PLAN: Plan #Nonstemi * admitted with a complaint of chest pain and abdominal pain as well as worsening shortness of breath * admit to PCU * initial troponin was markedly elevated at >400. * Has missed dialysis once and also to have dialysis today making a total of 2 sessions of dialysis she has not had. This will definitely contribute to the elevated troponins but in light of her being symptomatic as well, I do think it is best to err on the side of caution and treat as non-STEMI. * Patient started on heparin drip in the ED, will continue. * Cardiology consulted and per discussion with Dr. Crooks at patient's bedside, to prepare for cardiac cath tomorrow. * Already on high intensity statin and carvedilol as well as Plavix. * Give aspirin * 2D echo ordered * #ESRD with missed dialysis * Has missed 2 sessions of dialysis because she was not feeling well. Nephrology consulted to him to have dialysis. * Sodium bicarbonate and calcium acetate * #Chronic hypoxic respiratory failure: Due to ESRD and COPD. On 3 L of oxygen. Breathing treatments bronchodilators. #Hypertension: On carvedilol and hydralazine as well as amlodipine #GERD: On PPI DVT prophylaxis: on heparin drip CODE STATUS: Full code * Patient counseled extensively about different types of CODE STATUS including full code, DNR CCA and DNR CCA. Patient elects to be full code. Total apec-ia-pdgm time 17 minutes. Total time spent on evaluation and management of patient, reviewing chart and specialist notes, discussing plan with patient, discussion with nursing and ancillary staff as well as documentation: 79 mins Charges/Coding Visit Charges Inpatient E&M: 56188 Init Hosp L3 Procedures Hospitalists Procedures: 15244 Advncd Care Plan 30 Min
--- NOTE | 2023-01-28 14:47 | ED.RN ---
Dr. Strickland spoke with this RN and ordered to hold heparin until after pt receives dialysis.
--- NOTE | 2023-01-28 14:54 | ED.RN ---
pharmacy services director states she will work on pt's medication list.
--- NOTE | 2023-01-28 14:58 | CON.PCM.CA_ITS ---
Assessment & Plan Assessment/Plan (1) Chronic kidney disease, stage V requiring chronic dialysis: (2) HTN (hypertension): (3) TIA (transient ischemic attack): (4) Non-ST elevated myocardial infarction: PLAN: 67-year-old patient, presented to the ER With complaint of abdominal pain diarrhea for the last for 5 days Patient end-stage renal disease currently on hemodialysis Hypertension Cardiac auscultation requested as she has elevated cardiac biomarker with high sensitive troponin I 402 I saw the patient at bedside and she had symptoms of lower chest and abdominal discomfort with some radiation to the left jaw and to the left arm Patient admitted the symptoms have been ongoing for for 5 days She has no prior cardiac evaluation in particular no history of coronary stent or coronary artery bypass surgery Cardiac care plan recommendations; 1. I reviewed the current evaluation in the hospital including the current lab medical treatment Clinical impression non-STEMI with end-stage renal disease patient missed hemodialysis 2. We will plan for cardiac catheterization as she has symptoms of chest dis comfort Approach will be from right common femoral artery . To continue on heparin aspirin atorvastatin and beta-nat Toprol. 3. Echocardiogram to assess LV function, and will keep the patient n.p.o. from midnight. HPI Consult Data Date of Consult: 01/28/23 HPI Narrative Reason for Consultation: Chest [id number] HPI Narrative: NATALI KINSEY, is a 67 F who presents [facility] Medical History Acute and chronic respiratory failure with hypoxia Ambulates with cane Anemia Asthma Cardiac dysrhythmia, unspecified Chest pain Chronic kidney disease, stage V requiring chronic dialysis Diabetes Easy bruising Edentulous ESRD (end stage renal disease) on dialysis Former smoker Gastric reflux High cholesterol HTN (hypertension) Hypertension Hyponatremia Leg cramps NSTEMI, initial episode of care On home oxygen therapy PONV (postoperative nausea and vomiting) Post-menopausal Rheumatoid arthritis Shortness of breath on exertion SOB (shortness of breath) Stroke Type II diabetes mellitus Wears glasses Home Medications carvedilol 12.5 mg tablet (Coreg) 12.5 mg PO 0600,1600 blood pressure 11/28/20 [History Last Taken 09/19/22] calcium acetate(phosphat bind) 667 mg capsule 2 cap PO 0600,1200,1600 supplement 03/07/22 [History Last Taken 09/19/22] amlodipine 10 mg tablet 10 mg PO 0600 BLOOD PRESSURE 09/19/22 [History Last Taken 09/19/22] cinacalcet 30 mg tablet 30 mg PO 0600 09/19/22 [History Last Taken 09/19/22] hydralazine 25 mg tablet 25 mg PO TID BLOOD PRESSURE 09/19/22 [History Last Taken 09/19/22] multivitamin (Daily-Caron tablet) 1 tab PO 0600 HEALTH MAINTENANCE 09/19/22 [History Last Taken 09/19/22] atorvastatin 80 mg tablet 80 mg PO QHS CHOLESTEROL 01/28/23 [History Last Taken Unknown] clopidogrel 75 mg tablet 75 mg PO DAILY BLOOD THINNER 01/28/23 [History Last Taken Unknown] sevelamer carbonate 800 mg tablet 800 mg PO TID 01/28/23 [History Last Taken 01/26/23] Allergy/AdvReac Type Severity Reaction Status Date / Time ceftriaxone Allergy Severe Rash Verified 12/30/22 18:28 vancomycin Allergy Severe Rash Verified 12/30/22 18:28 Penicillins Allergy Swelling Verified 12/30/22 18:28 oxycodone HCl [From Percocet] AdvReac Itching Verified 12/30/22 18:28 Family History Mother Hypertension Emphysema/COPD Sister Hypertension Surgical History H/O: hysterectomy History of arteriovenostomy for renal dialysis History of eye surgery History of surgery knee scope S/P arteriovenous (AV) fistula creation Social History Smoking Status: Former smoker alcohol intake: current details: 1 per week substance use type: does not use what type of physical activity do you participate in: none ROS ROS Narrative 14 point review of system Unremarkable apart from current presentation Patient missed dialysis x2 and she was having symptoms of chest pain described as diffuse nonspecific lower chest some radiation to the left jaw and to the left arm. Physical Exam Narrative Alert orientated Not in acute distress Cardiovascular exam S1-S2 regular Chest exam clear to auscultation bilateral. Risk Stratification Risk Stratification Applicable: Yes Age >/= 65: Yes >/= 3 CAD Risk Factors (HTN, HLD, DM, family hx of CAD, or current smoker): Yes Aspirin Use in the Past 7 Days: Yes Severe Angina (>/= episodes in 24 hours): No EKG ST Changes >/= 0.5mm: No Positive Cardiac Marker: Yes SHA Risk Stratification Score: 4 SHA % Risk: 20% Risk Objective Data Vital Signs: Vital Signs Temp Pulse Resp BP Pulse Ox O2 Del Method O2 Flow Rate 98.4 F 75 18 149/110 H 100 Nasal Cannula 3 01/28/23 14:53 01/28/23 14:53 01/28/23 14:53 01/28/23 14:53 01/28/23 14:53 01/28/23 14:53 01/28/23 14:53 Oxygen Flow Rate (L/min) 3 Oxygen Delivery Method Nasal Cannula Weight: 162 lb 11.218 oz Body Mass Index (BMI) 30.7 Lab / Micro Data Result Diagrams: 01/28/23 12:50 01/28/23 12:17 Labs: Laboratory Results - last 24 hr 01/28/23 12:17: WBC Cancelled, Corrected WBC Cancelled, RBC Cancelled, Hgb Cancelled, Hct Cancelled, MCV Cancelled, MCH Cancelled, MCHC Cancelled, RDW Std Deviation Cancelled, RDW Coeff of Dottie Cancelled, Plt Count Cancelled, MPV Cancelled, Immature Gran % (Auto) Cancelled, Neut % (Auto) Cancelled, Lymph % (Auto) Cancelled, [place] % (Auto) Cancelled, Eos % (Auto) Cancelled, Baso % (Auto) Cancelled, Absolute Neuts (auto) Cancelled, Absolute Lymphs (auto) Cancelled, Total Counted Cancelled, Neutrophils % (Manual) Cancelled, Band Neutrophils % Cancelled, Lymphocytes % (Manual) Cancelled, Monocytes % (Manual) Cancelled, Eosinophils % (Manual) Cancelled, Basophils % (Manual) Cancelled, Metamyelocytes % Cancelled, Myelocytes % Cancelled, Promyelocytes % Cancelled, Blast Cells % Cancelled, Plasma Cell % (Manual) Cancelled, Other Cells % Cancelled, Nucleated RBC % Cancelled, Nucleated RBCs/100 WBC Cancelled, Differential Comment Cancelled, Diff Path Review Cancelled, Hypersegmented Neuts Cancelled, Atypical Lymphocytes Cancelled, Reactive Lymphocytes Cancelled, Smudge Cells Cancelled, Toxic Granulation Cancelled, Toxic Vacuolation Cancelled, Dohle Bodies Cancelled, Linda Rods Cancelled, Platelet Estimate Cancelled, Plt Morphology Comment Cancelled, RBC Morphology Cancelled, Polychromasia Cancelled, Hypochromasia Cancelled, Poikilocytosis Cancelled, Basophilic Stippling Cancelled, Anisocytosis Cancelled, Microcytosis Cancelled, Macrocytosis Cancelled, Spherocytes Cancelled, Sickle Cells Cancelled, Target Cells Cancelled, Tear Drop Cells Cancelled, Ovalocytes Cancelled, Stomatocytes Cancelled, [place]mit[place] Bodies Cancelled, Sherin Cells Cancelled, Bite Cells Cancelled, Crenated Cell Cancelled, Acanthocytes (Spur) Cancelled, Rouleaux Cancelled, Schistocytes Cancelled 01/28/23 12:17: Sodium 141, Potassium 5.0, Chloride 106, Carbon Dioxide 24.0, Anion Gap 11, BUN 88 H, Creatinine 14.30 H*, Estim Creat Clear Calc 2.96, Est GFR (MDRD) Af Amer 3 L, Est GFR (MDRD) Non-Af 3 L, BUN/Creatinine Ratio 6.2 L, Glucose 81, Calcium 8.9, Total Bilirubin 0.40, AST 51 H, ALT 51, Alkaline Phosphatase 67, Troponin I High Sens 402 H*, Total Protein 8.9 H, Albumin 3.6, Globulin 5.3 H, Albumin/Globulin Ratio 0.7 L 01/28/23 12:17: Lactic Acid 0.8 01/28/23 12:50: WBC 5.4, RBC 3.20 L, Hgb 9.5 L, Hct 30.3 L, MCV 94.7, MCH 29.7, MCHC 31.4 L, RDW Std Deviation 45.8 H, RDW Coeff of Dottie 13.2, Plt Count 175, MPV 10.5, Immature Gran % (Auto) 0.600, Neut % (Auto) 65.2, Lymph % (Auto) 21.0, [place] % (Auto) 10.6 H, Eos % (Auto) 2.0, Baso % (Auto) 0.6, Absolute Neuts (auto) 3.5, Absolute Lymphs (auto) 1.13, Nucleated RBC % 0 01/28/23 13:16: Urine Color Yellow, Urine Clarity Clear, Urine pH 8.0, Ur Specific [place] 1.015, Urine Protein 500 H, Urine Glucose (UA) 50 H, Urine Ketones 5 H, Urine Occult Blood 50 H, Urine Nitrite Negative, Urine Bilirubin Negative, Urine Urobilinogen Normal, Ur Leukocyte Esterase Negative, Urine RBC 0-5 SEEN, Urine WBC 0 SEEN, Ur Squamous Epith Cells 0 SEEN, Urine Bacteria 0 SEEN, Urine Mucus 0 SEEN Cardiology Labs/Tests 01/28/23 12:17: WBC Cancelled, Corrected WBC Cancelled, RBC Cancelled, Hgb Cancelled, Hct Cancelled, MCV Cancelled, MCH Cancelled, MCHC Cancelled, Plt Count Cancelled, MPV Cancelled, Immature Gran % (Auto) Cancelled, Neut % (Auto) Cancelled, Lymph % (Auto) Cancelled, [place] % (Auto) Cancelled, Eos % (Auto) Cancelled, Baso % (Auto) Cancelled, Absolute Neuts (auto) Cancelled, Total Counted Cancelled, Neutrophils % (Manual) Cancelled, Band Neutrophils % Cancelled, Lymphocytes % (Manual) Cancelled, Monocytes % (Manual) Cancelled, Eosinophils % (Manual) Cancelled, Basophils % (Manual) Cancelled, Metamyelocytes % Cancelled, Myelocytes % Cancelled, Promyelocytes % Cancelled, Blast Cells % Cancelled, Plasma Cell % (Manual) Cancelled, Other Cells % Cancelled, Nucleated RBC % Cancelled 01/28/23 12:17: Sodium 141, Potassium 5.0, Chloride 106, Carbon Dioxide 24.0, Anion Gap 11, BUN 88 H, Creatinine 14.30 H*, Est GFR (MDRD) Af Amer 3 L, Est GFR (MDRD) Non-Af 3 L, BUN/Creatinine Ratio 6.2 L, Glucose 81, Calcium 8.9, Total Bilirubin 0.40 01/28/23 12:17: Lactic Acid 0.8 01/28/23 12:50: WBC 5.4, RBC 3.20 L, Hgb 9.5 L, Hct 30.3 L, MCV 94.7, MCH 29.7, MCHC 31.4 L, Plt Count 175, MPV 10.5, Immature Gran % (Auto) 0.600, Neut % (Auto) 65.2, Lymph % (Auto) 21.0, [place] % (Auto) 10.6 H, Eos % (Auto) 2.0, Baso % (Auto) 0.6, Absolute Neuts (auto) 3.5, Nucleated RBC % 0 01/28/23 13:16: Urine Color Yellow, Urine Clarity Clear, Urine pH 8.0, Ur Specific [place] 1.015, Urine Protein 500 H, Urine Glucose (UA) 50 H, Urine Ketones 5 H, Urine Occult Blood 50 H, Urine Nitrite Negative, Urine Bilirubin Negative, Urine Urobilinogen Normal, Ur Leukocyte Esterase Negative, Urine RBC 0-5 SEEN, Urine WBC 0 SEEN Rhythm: EKG: ECHO: Stress Test: Cardiac Cath: PCI: CT Surgery: Holter monitor: EPS: PPM: CXR: Chest CT Scan: Radiography Diagnostic Testing: Radiology Impression Abdomen/Pelvis CT 01/28/23 12:01 IMPRESSION: Extensive atherosclerotic calcification of the aorta and its major visceral branches. Sigmoid diverticulosis. Nonobstructive bilateral intrarenal calculi. Mild degree of increased markings at the lung bases suggestive of atelectasis. Electronically Signed: Tacho Russell MD at 14:03 EDT , Chest X-Ray 01/28/23 13:54 IMPRESSION: No acute abnormality is seen. Electronically Signed: Tacho Russell MD at 14:21 EDT ,
--- NOTE | 2023-01-28 15:19 | EKG12_ITS ---
Test Reason : Blood Pressure : / mmHG Vent. Rate : 069 BPM Atrial Rate : 069 BPM P-R Int : 176 ms QRS Dur : 088 ms QT Int : 448 ms P-R-T Axes : 065 086 010 degrees QTc Int : 480 ms Normal sinus rhythm Nonspecific T wave abnormality Prolonged QT Abnormal ECG No previous ECGs available Confirmed by ANTONIETA PIZARRO, MEÑO ([id number]), department editor ADRIÁN BURRIS ([id number]) on 01/30/2023 9:58:53 AM Referred By: EMIL Confirmed By:MEÑO FUNG MD
--- NOTE | 2023-01-28 15:52 | ECHOD_ITS ---
Reason For Study: CHEST PAIN Procedure This was a 2D Doppler, Color Flow transthoracic echocardiogram. The study was technically difficult. Patient was uncooperative and could not be still. Exam performed portable in patient room. Left Ventricle Mildly dilated left ventricle. The estimated ejection fraction is 50-55 %. Right Ventricle Normal right ventricle. Normal systolic function. Atria The left atrium is mildly enlarged. Normal right atrium. Mitral Valve There is moderate mitral annular calcification. Moderate (2+) mitral valve insufficiency. Tricuspid Valve Normal tricuspid valve. Trivial tricuspid valve insufficiency. Aortic Valve Normal aortic valve. Pulmonic Valve The pulmonic valve is not well visualized. Great Vessels Normal aortic root. Pericardium/Pleural Small pericardial effusion. MMode/2D Measurements & Calculations LVIDd: 6.7 cm IVSd: 1.2 cm Ao root diam: 2.6 cm LVIDs: 5.0 cm LVPWd: 1.1 cm RVDd: 3.1 cm FS: 25.7 % LAV(MOD-bp): 55.0 ml LVAd ap4: 34.1 cm2 SV(MOD-sp4): 62.0 ml LAV(MOD-bp) Indexed: 32.2 ml/m2 LVLd ap4: 7.8 cm LAV(MOD-sp2): 44.3 ml EDV(MOD-sp4): 121.8 ml LAV(MOD-sp4): 66.5 ml EDV(sp4-el): 126.0 ml LVAs ap4: 22.1 cm2 LVLs ap4: 7.0 cm ESV(MOD-sp4): 59.8 ml ESV(sp4-el): 59.2 ml EF(MOD-sp4): 50.9 % EF(sp4-el): 53.0 % SV(sp4-el): 66.8 ml LA A4 area: 22.9 cm2 LA dimension(2D): 4.2 cm RA A4 area: 13.3 cm2 Time Measurements MV dec time: 0.15 sec Doppler Measurements & Calculations MV E max migel: 131.8 cm/sec Lat Peak E' Migel: 10.4 cm/sec Med Peak E' Migel: 9.1 cm/sec MV A max migel: 84.1 cm/sec E/E' lat: 12.7 E/E' med: 14.5 MV E/A: 1.6 MV V2 max: 152.1 cm/sec Ao V2 max: 113.6 cm/sec MV max P.3 mmHg MV dec slope: 919.9 cm/sec2 Ao max P.2 mmHg MV V2 mean: 104.3 cm/sec Ao V2 mean: 79.0 cm/sec MV mean P.7 mmHg Ao mean P.8 mmHg MV V2 VTI: 38.1 cm Ao V2 VTI: 27.7 cm AV (velocity ratio): 0.70 LV V1 max: 84.3 cm/sec MR max migel: 659.1 cm/sec TR max migel: 278.0 cm/sec LV V1 max P.9 mmHg MR max P.8 mmHg TR max P.9 mmHg LV V1 mean P.6 mmHg MR mean migel: 469.4 cm/sec LV V1 mean: 60.5 cm/sec MR mean P.2 mmHg LV V1 VTI: 19.3 cm MR VTI: 232.5 cm ECHO/Echo Complete Interpretation Summary The estimated ejection fraction is 50-55 %. In comparison to previous echocardiogram low normal ejection fraction is noted. Moderate mitral insufficiency. Ordering Physician: Remigio Strickland Referring Physician: Dru Cummins M.D. Performed By: Kia Muhammad RCS
[2023-01-28 17:35] LABS: Prothrombin Time (Protime)PT. 13.2 SECONDS (11.7-14.9)
[2023-01-28] MEDS: HEPARIN/D5w 25,000 UNITS 25,000 UNITS/250 ML IV.SOLN. 11 UNITS CONT INF (18:50)
[2023-01-28 19:16] LABS: Troponin-I HS 424 pg/mL (3.0-54.0)
[2023-01-28 19:41] LABS: Troponin-I HS 434 pg/mL (3.0-54.0)
[2023-01-28] MEDS: Ipratropium/Albuterol Sulfate 3 ML AMPUL.NEB INHALATION (20:00)
[2023-01-28] MEDS: Metoprolol Tartrate 25 MG Tablet PO (21:31)
[2023-01-28] MEDS: Atorvastatin Calcium 40 MG Tablet PO (21:31)
[2023-01-29] VITALS (13 sets, daily range): BP systolic 106–215; BP diastolic 52–102; PULSE 66–88; RESP 16–22; TEMP 2.7–37.4; O2SAT 85–100
[2023-01-29 01:34] LABS: Partial Thromboplast Time 138.7 Seconds (24.1-36.2)
--- NOTE | 2023-01-29 02:45 | NURSING ---
pt ambulating to restroom, pt with c/o feeling hot. VSS, SP02 85% on 3 L, 02 increased to 5 L MD FLOR updated, will monitor pt.
[2023-01-29] MEDS: Ipratropium/Albuterol Sulfate 3 ML AMPUL.NEB INHALATION ×2 (02:51→13:42)
--- NOTE | 2023-01-29 05:40 | NURSING ---
pt noted with a nose bleed, previous aPTT was supratherapeutic, Heparin is scheduled to stop at 0800. Dr johnson updated Heparin stopped, pt applied pressure her nose, ice offered pt declined. next PTT 0700, will monitor pt.
--- NOTE | 2023-01-29 05:55 | EKG12_ITS ---
Test Reason : AM EKG Blood Pressure : / mmHG Vent. Rate : 074 BPM Atrial Rate : 074 BPM P-R Int : 172 ms QRS Dur : 084 ms QT Int : 400 ms P-R-T Axes : 057 085 053 degrees QTc Int : 444 ms Normal sinus rhythm Nonspecific ST abnormality Abnormal ECG When compared with ECG of 28-JAN-2023 12:13, MANUAL COMPARISON REQUIRED, DATA IS UNCONFIRMED Confirmed by ANTONIETA PIZARRO, MEÑO ([id number]), online content editor ADRIÁN BURRIS ([id number]) on 01/30/2023 1:56:37 PM Referred By: Confirmed By:MEÑO FUNG MD
[2023-01-29] MEDS: Metoprolol Tartrate 25 MG Tablet PO ×2 (06:25→21:58)
[2023-01-29] MEDS: Aspirin E.C. 81 MG Tablet PO (06:25)
[2023-01-29 07:18] LABS: Absolute Lymphocyte Count 1.18 X10^3/uL (0.83-4.51); Absolute Neutrophil Count 3.4 X10^3/uL (2.0-7.7); Basophil# 0.04 X10^3/uL; Basophil% 0.7 % (0-1); Eosinophil# 0.11 X10^3/uL; Hemoglobin 8.4 g/dL (12.0-15.0); Lymphocyte # 1.18 X10^3/ul (0.83-4.51); Lymphocyte % 21.7 % (19-41); Mean Corp Hgb Conc 32.3 g/dL (32-36); Mean Corpuscular Hgb 30.3 pg (27.0-32.0); Mean Corpuscular Volume 93.9 fL (81-99); Mean Platelet Vol. 10.1 fl (6.2-12.0); Monocyte# 0.67 X10^3/uL; Monocyte% 12.3 % (0-10); NRBC Flagged by Analyzer 0 % (0-5); Neutrophil # 3.42 X10^3/uL (2.7-7.7); Neutrophil % 62.7 % (47-70); Platelet Count 145 K/mm3 (150-450); RBC Distribution Width CV 13.5 % (11.6-14.6); RBC Distribution Width SD 46.5 fl (35.1-43.9); Red Blood Count 2.77 M/mm3 (4.2-5.4); White Blood Count 5.5 K/mm3 (4.4-11.0)
[2023-01-29 07:51] LABS: Anion Gap 9 (5-15); BUN 101 mg/dL (7-18); BUN/Creat Ratio 6.8 RATIO (10-20); Calcium,Total 8.1 mg/dL (8.5-10.1); Chloride 106 mmol/L (98-107); EST Glomerular Filtration Rate 3 mL/min (>60); Est Glom Filt Rate - Afr Amer 3 mL/min (>60); Estimated Creatinine Clearance 2.84 ml/min; Glucose 84 mg/dL (74-106); Potassium 6.3 mmol/L (3.5-5.1); Sodium Level 138 mmol/L (136-145)
--- NOTE | 2023-01-29 08:29 | PN.HOSP_ITS ---
Reason for Visit Reason for Visit: Diagnoses Transient cerebral ischemic attack, unspecified (01/28/23) Essential (primary) hypertension (01/28/23) Non-ST elevation (NSTEMI) myocardial infarction (01/28/23) End stage renal disease (01/28/23) Dependence on renal dialysis (01/28/23) Subjective Subjective Still with abdominal pain. Objective Data Objective Data Vital Signs: Vital Signs Temp Pulse Resp BP Pulse Ox O2 Del Method O2 Flow Rate 37.2 C 72 18 106/59 L 100 Nasal Cannula 3 01/29/23 08:00 01/29/23 08:00 01/29/23 08:00 01/29/23 08:00 01/29/23 08:00 01/29/23 08:00 01/29/23 08:00 Oxygen Flow Rate (L/min) 3 Oxygen Delivery Method Nasal Cannula Weight: 71.668 kg Body Mass Index (BMI) 29.8 Intake & Output: Intake and Output for Last 24 Hours 01/27/23 01/28/23 01/29/23 23:59 23:59 23:59 Intake Total 307.5 / 357.5 141.22 / 141.22 Balance 307.5 / 357.5 141.22 / 141.22 Lab / Micro Data Result Diagrams: 01/29/23 07:00 01/29/23 07:00 Labs: Laboratory Results - last 24 hr 01/28/23 12:17: WBC Cancelled, Corrected WBC Cancelled, RBC Cancelled, Hgb Cancelled, Hct Cancelled, MCV Cancelled, MCH Cancelled, MCHC Cancelled, RDW Std Deviation Cancelled, RDW Coeff of Dottie Cancelled, Plt Count Cancelled, MPV Cancelled, Immature Gran % (Auto) Cancelled, Neut % (Auto) Cancelled, Lymph % (Auto) Cancelled, [place] % (Auto) Cancelled, Eos % (Auto) Cancelled, Baso % (Auto) Cancelled, Absolute Neuts (auto) Cancelled, Absolute Lymphs (auto) Cancelled, Total Counted Cancelled, Neutrophils % (Manual) Cancelled, Band Neutrophils % Cancelled, Lymphocytes % (Manual) Cancelled, Monocytes % (Manual) Cancelled, Eosinophils % (Manual) Cancelled, Basophils % (Manual) Cancelled, Metamyelocytes % Cancelled, Myelocytes % Cancelled, Promyelocytes % Cancelled, Blast Cells % Cancelled, Plasma Cell % (Manual) Cancelled, Other Cells % Cancelled, Nucleated RBC % Cancelled, Nucleated RBCs/100 WBC Cancelled, Differential Comment Canc elled, Diff Path Review Cancelled, Hypersegmented Neuts Cancelled, Atypical Lymphocytes Cancelled, Reactive Lymphocytes Cancelled, Smudge Cells Cancelled, Toxic Granulation Cancelled, Toxic Vacuolation Cancelled, Dohle Bodies Cancelled, Linda Rods Cancelled, Platelet Estimate Cancelled, Plt Morphology Comment Cancelled, RBC Morphology Cancelled, Polychromasia Cancelled, Hypochromasia Cancelled, Poikilocytosis Cancelled, Basophilic Stippling Cancelled, Anisocytosis Cancelled, Microcytosis Cancelled, Macrocytosis Cancelled, Spherocytes Cancelled, Sickle Cells Cancelled, Target Cells Cancelled, Tear Drop Cells Cancelled, Ovalocytes Cancelled, Stomatocytes Cancelled, Schmit[place] Bodies Cancelled, [place] Cells Cancelled, Bite Cells Cancelled, Crenated Cell Cancelled, Acanthocytes (Spur) Cancelled, Rouleaux Cancelled, Schistocytes Cancelled 01/28/23 12:17: Sodium 141, Potassium 5.0, Chloride 106, Carbon Dioxide 24.0, Anion Gap 11, BUN 88 H, Creatinine 14.30 H*, Estim Creat Clear Calc 2.96, Est GFR (MDRD) Af Amer 3 L, Est GFR (MDRD) Non-Af 3 L, BUN/Creatinine Ratio 6.2 L, Glucose 81, Calcium 8.9, Total Bilirubin 0.40, AST 51 H, ALT 51, Alkaline Phosphatase 67, Troponin I High Sens 402 H*, Total Protein 8.9 H, Albumin 3.6, Globulin 5.3 H, Albumin/Globulin Ratio 0.7 L 01/28/23 12:17: Lactic Acid 0.8 01/28/23 12:50: WBC 5.4, RBC 3.20 L, Hgb 9.5 L, Hct 30.3 L, MCV 94.7, MCH 29.7, MCHC 31.4 L, RDW Std Deviation 45.8 H, RDW Coeff of Dottie 13.2, Plt Count 175, MPV 10.5, Immature Gran % (Auto) 0.600, Neut % (Auto) 65.2, Lymph % (Auto) 21.0, [place] % (Auto) 10.6 H, Eos % (Auto) 2.0, Baso % (Auto) 0.6, Absolute Neuts (auto) 3.5, Absolute Lymphs (auto) 1.13, Nucleated RBC % 0 01/28/23 13:16: Urine Color Yellow, Urine Clarity Clear, Urine pH 8.0, Ur Specific [place] 1.015, Urine Protein 500 H, Urine Glucose (UA) 50 H, Urine Ketones 5 H, Urine Occult Blood 50 H, Urine Nitrite Negative, Urine Bilirubin Negative, Urine Urobilinogen Normal, Ur Leukocyte Esterase Negative, Urine RBC 0-5 SEEN, Urine WBC 0 SEEN, Ur Squamous Epith Cells 0 SEEN, Urine Bacteria 0 SEEN, Urine Mucus 0 SEEN 01/28/23 15:20: PT Cancelled, INR Cancelled, APTT Cancelled 01/28/23 16:54: PT 13.2, INR 1.0, APTT 31.0 01/28/23 16:54: Troponin I High Sens 424 H* 01/28/23 18:45: Troponin I High Sens 434 H* 01/29/23 01:10: APTT 138.7 H* 01/29/23 07:00: WBC 5.5, RBC 2.77 L, Hgb 8.4 L, Hct 26.0 L, MCV 93.9, MCH 30.3, MCHC 32.3, RDW Std Deviation 46.5 H, RDW Coeff of Dottie 13.5, Plt Count 145 L, MPV 10.1, Immature Gran % (Auto) 0.600, Neut % (Auto) 62.7, Lymph % (Auto) 21.7, [place] % (Auto) 12.3 H, Eos % (Auto) 2.0, Baso % (Auto) 0.7, Absolute Neuts (auto) 3.4, Absolute Lymphs (auto) 1.18, Nucleated RBC % 0 01/29/23 07:00: Sodium 138, Potassium 6.3 H*, Chloride 106, Carbon Dioxide 23.0, Anion Gap 9, BUN 101 H*, Creatinine 14.90 H*, Estim Creat Clear Calc 2.84, Est GFR (MDRD) Af Amer 3 L, Est GFR (MDRD) Non-Af 3 L, BUN/Creatinine Ratio 6.8 L, Glucose 84, Calcium 8.1 L 01/29/23 07:00: APTT 60.0 H Radiography Diagnostic Testing: Radiology Impression Abdomen/Pelvis CT 01/28/23 12:01 IMPRESSION: Extensive atherosclerotic calcification of the aorta and its major visceral branches. Sigmoid diverticulosis. Nonobstructive bilateral intrarenal calculi. Mild degree of increased markings at the lung bases suggestive of atelectasis. Electronically Signed: Tacho Russell MD at 14:03 EDT , Chest X-Ray 01/28/23 13:54 IMPRESSION: No acute abnormality is seen. Electronically Signed: Tacho Russell MD at 14:21 EDT , Physical Exam Const alert and no apparent distress HEENT head/scalp atraumatic and moist oral mucous membranes Resp normal respiratory effort, no retractions, no use of accessory muscles and clear to auscultation bilaterally Cardio regular rate, regular rhythm, S1 normal heart sound and S2 normal heart sound GI GI Narrative: non-distended. TTP, diffusely. Extremity normal to inspection and no clubbing, cyanosis or edema Assessment & Plan Assessment/Plan (1) Non-ST elevated myocardial infarction: PLAN: initial troponin was markedly elevated at >400. Has missed dialysis once and also to have dialysis today making a total of 2 sessions of dialysis she has not had. This will definitely contribute to the elevated troponins but in light of her being symptomatic as well, I do think it is best to err on the side of caution and treat as non-STEMI. Patient started on heparin drip in the ED, will continue. Cardiology consulted and per discussion with Dr. Crooks at patient's bedside, to prepare for cardiac cath tomorrow. Already on high intensity statin and carvedilol as well as Plavix. Give aspirin 2D echo ordered DW Dr. Strickland, plan for LHC on 01/30 (2) Chronic progressive renal failure: PLAN: ESRD with missed dialysis * Has missed 2 sessions of dialysis because she was not feeling well. Nephrology consulted to him to have dialysis. * Sodium bicarbonate and calcium acetate (3) Abdominal pain: PLAN: CT abd/pelvis showed extensive atherosclerosis. Sigmoid diverticulosis w/o diverticulitis (4) Hyperkalemia: PLAN: not hemolyzed on sample for HD 01/29 PLAN: Plan Chronic conditions: * Chronic hypoxic respiratory failure: Due to ESRD and COPD. On 3 L of oxygen. Breathing treatments bronchodilators. * hypertension: On carvedilol and hydralazine as well as amlodipine * GERD: On PPI * CVA DVT prophylaxis: on heparin drip CODE STATUS: Full code Charges/Coding Visit Charges Inpatient E&M: 93306 Subs Hosp L2
--- NOTE | 2023-01-29 11:07 | PCM.CONS.R ---
Assessment & Plan Assessment/Plan (1) End-stage renal disease on hemodialysis: (2) Hyperkalemia: PLAN: Plan This is a 67-year-old female with past medical history significant for ESRD on hemodialysis Friday schedule, last dialyzed last at the kidney center who presented to the emergency room with complaints of chest pain. She was admitted for further evaluation and treatment. Nephrology consulted for management of hemodialysis needs. We will plan for dialysis today, dialyze over 3.5 hours on 2K bath with fluid removal as patient/blood pressure tolerates. Current EDW 71 kg. Reviewed chest x-ray, lungs clear, no acute abnormality. Patient had CT of abdomen/pelvis in the emergency room which showed sigmoid diverticulosis, extensive atherosclerotic calcification of aorta and its major visceral branches. Cardiology consulted, patient noted to have elevated troponin levels and cardiology is possibly planning heart cath catheterization tomorrow. Patient is on heparin drip. Quite possibly we will plan for dialysis again tomorrow after heart cath. Patient has a history of anemia of chronic disease and receives BHAVIN and iron at kidney center. We will monitor hemoglobin trends. Current blood pressures acceptable on metoprolol. Further orders forthcoming as hospitalization evolves, thank you for allowing us to participate in the care of Ms. Chaidez. HPI Consult Data Date of Consult: 01/29/23 HPI Narrative HPI Narrative: NATALI CHAIDEZ, is a 67 F who presented to the emergency room yesterday with complaints of abdominal pain, chest pain, nausea, shortness of breath. Work-up in the emergency room showed initial troponin 402, she was admitted for further evaluation and treatment of chest pain rule out acute coronary syndrome. Nephrology consulted for management of hemodialysis. Patient has a history of end-stage renal disease and currently dialyzes Friday schedule at [facility]. Last dialysis was last . Patient currently denies any chest pain or shortness of breath. She reports abdomen pain is better. [facility] Medical History (Updated 01/29/23 @ 11:11 by ART Espinoza) Acute and chronic respiratory failure with hypoxia Ambulates with cane Anemia Asthma Cardiac dysrhythmia, unspecified Chest pain Chronic kidney disease, stage V requiring chronic dialysis Diabetes Dialysis patient Easy bruising Edentulous ESRD (end stage renal disease) on dialysis Former smoker Gastric reflux GI bleed Hepatitis High cholesterol HTN (hypertension) Hypertension Hypertension Hyponatremia Kidney disease Leg cramps NSTEMI, initial episode of care On home oxygen therapy PONV (postoperative nausea and vomiting) Post-menopausal Rheumatoid arthritis Shortness of breath on exertion SOB (shortness of breath) Stroke Substance abuse Type II diabetes mellitus Wears glasses Home Medications carvedilol 12.5 mg tablet (Coreg) 12.5 mg PO BID HEART 11/28/20 [History Last Taken 2 Days Ago ~01/26/23] calcium acetate(phosphat bind) 667 mg capsule 2 cap PO TID SUPPLEMENT 03/07/22 [History Last Taken 2 Days Ago ~01/26/23] amlodipine 10 mg tablet 10 mg PO DAILY BLOOD PRESSURE 09/19/22 [History Last Taken 2 Days Ago ~01/26/23] cinacalcet 30 mg tablet 30 mg PO DAILY DIALYSIS 09/19/22 [History Last Taken 2 Days Ago ~01/26/23] hydralazine 25 mg tablet 25 mg PO TID BLOOD PRESSURE 09/19/22 [History Last Taken 2 Days Ago ~01/26/23] multivitamin (Daily-Caron tablet) 1 tab PO DAILY HEALTH MAINTENANCE 09/19/22 [History Last Taken 2 Days Ago ~01/26/23] atorvastatin 80 mg tablet 80 mg PO QHS CHOLESTEROL 01/28/23 [History Last Taken 2 Days Ago ~01/26/23] clopidogrel 75 mg tablet 75 mg PO DAILY BLOOD THINNER 01/28/23 [History Last Taken 2 Days Ago ~01/26/23] sevelamer carbonate 800 mg tablet 800 mg PO TID DIALYSIS 01/28/23 [History Last Taken 2 Days Ago ~01/26/23] Allergy/AdvReac Type Severity Reaction Status Date / Time ceftriaxone Allergy Severe Rash Verified 12/30/22 18:28 vancomycin Allergy Severe Rash Verified 12/30/22 18:28 Penicillins Allergy Swelling Verified 01/28/23 15:20 oxycodone HCl [From Percocet] AdvReac Intermediate Itching Verified 01/28/23 15:20 Family History Mother Hypertension Emphysema/COPD Sister Hypertension Surgical History H/O: hysterectomy History of arteriovenostomy for renal dialysis History of eye surgery History of surgery knee scope S/P arteriovenous (AV) fistula creation Social History Smoking Status: Former smoker alcohol intake: current details: 1 per week substance use type: does not use what type of physical activity do you participate in: none ROS ROS Narrative As in HPI and past medical history Physical Exam Narrative Alert and oriented x3, no apparent distress S1, S2, RRR Lung sounds clear anteriorly diminished breath sounds posterior bases. No rhonchi or rales Abdomen soft, nontender, positive bowel sounds Trace edema noted bilateral lower legs Tunneled HD catheter right chest dressing clean, dry and intact Lab / Micro Data Result Diagrams: 01/29/23 07:00 01/29/23 07:00 Labs: Laboratory Results - last 24 hr 01/28/23 12:17: WBC Cancelled, Corrected WBC Cancelled, RBC Cancelled, Hgb Cancelled, Hct Cancelled, MCV Cancelled, MCH Cancelled, MCHC Cancelled, RDW Std Deviation Cancelled, RDW Coeff of Dottie Cancelled, Plt Count Cancelled, MPV Cancelled, Immature Gran % (Auto) Cancelled, Neut % (Auto) Cancelled, Lymph % (Auto) Cancelled, [place] % (Auto) Cancelled, Eos % (Auto) Cancelled, Baso % (Auto) Cancelled, Absolute Neuts (auto) Cancelled, Absolute Lymphs (auto) Cancelled, Total Counted Cancelled, Neutrophils % (Manual) Cancelled, Band Neutrophils % Cancelled, Lymphocytes % (Manual) Cancelled, Monocytes % (Manual) Cancelled, Eosinophils % (Manual) Cancelled, Basophils % (Manual) Cancelled, Metamyelocytes % Cancelled, Myelocytes % Cancelled, Promyelocytes % Cancelled, Blast Cells % Cancelled, Plasma Cell % (Manual) Cancelled, Other Cells % Cancelled, Nucleated RBC % Cancelled, Nucleated RBCs/100 WBC Cancelled, Differential Comment Cancelled, Diff Path Review Cancelled, Hypersegmented Neuts Cancelled, Atypical Lymphocytes Cancelled, Reactive Lymphocytes Cancelled, Smudge Cells Cancelled, Toxic Granulation Cancelled, Toxic Vacuolation Cancelled, Dohle Bodies Cancelled, Linda Rods Cancelled, Platelet Estimate Cancelled, Plt Morphology Comment Cancelled, RBC Morphology Cancelled, Polychromasia Cancelled, Hypochromasia Cancelled, Poikilocytosis Cancelled, Basophilic Stippling Cancelled, Anisocytosis Cancelled, Microcytosis Cancelled, Macrocytosis Cancelled, Spherocytes Cancelled, Sickle Cells Cancelled, Target Cells Cancelled, Tear Drop Cells Cancelled, Ovalocytes Cancelled, Stomatocytes Cancelled, Schmitz-[place] Bodies Cancelled, [place] Cells Cancelled, Bite Cells Cancelled, Crenated Cell Cancelled, Acanthocytes (Spur) Cancelled, Rouleaux Cancelled, Schistocytes Cancelled 01/28/23 12:17: Sodium 141, Potassium 5.0, Chloride 106, Carbon Dioxide 24.0, Anion Gap 11, BUN 88 H, Creatinine 14.30 H*, Estim Creat Clear Calc 2.96, Est GFR (MDRD) Af Amer 3 L, Est GFR (MDRD) Non-Af 3 L, BUN/Creatinine Ratio 6.2 L, Glucose 81, Calcium 8.9, Total Bilirubin 0.40, AST 51 H, ALT 51, Alkaline Phosphatase 67, Troponin I High Sens 402 H*, Total Protein 8.9 H, Albumin 3.6, Globulin 5.3 H, Albumin/Globulin Ratio 0.7 L 01/28/23 12:17: Lactic Acid 0.8 01/28/23 12:50: WBC 5.4, RBC 3.20 L, Hgb 9.5 L, Hct 30.3 L, MCV 94.7, MCH 29.7, MCHC 31.4 L, RDW Std Deviation 45.8 H, RDW Coeff of Dottie 13.2, Plt Count 175, MPV 10.5, Immature Gran % (Auto) 0.600, Neut % (Auto) 65.2, Lymph % (Auto) 21.0, [place] % (Auto) 10.6 H, Eos % (Auto) 2.0, Baso % (Auto) 0.6, Absolute Neuts (auto) 3.5, Absolute Lymphs (auto) 1.13, Nucleated RBC % 0 01/28/23 13:16: Urine Color Yellow, Urine Clarity Clear, Urine pH 8.0, Ur Specific [place] 1.015, Urine Protein 500 H, Urine Glucose (UA) 50 H, Urine Ketones 5 H, Urine Occult Blood 50 H, Urine Nitrite Negative, Urine Bilirubin Negative, Urine Urobilinogen Normal, Ur Leukocyte Esterase Negative, Urine RBC 0-5 SEEN, Urine WBC 0 SEEN, Ur Squamous Epith Cells 0 SEEN, Urine Bacteria 0 SEEN, Urine Mucus 0 SEEN 01/28/23 15:20: PT Cancelled, INR Cancelled, APTT Cancelled 01/28/23 16:54: PT 13.2, INR 1.0, APTT 31.0 01/28/23 16:54: Troponin I High Sens 424 H* 01/28/23 18:45: Troponin I High Sens 434 H* 01/29/23 01:10: APTT 138.7 H* 01/29/23 07:00: WBC 5.5, RBC 2.77 L, Hgb 8.4 L, Hct 26.0 L, MCV 93.9, MCH 30.3, MCHC 32.3, RDW Std Deviation 46.5 H, RDW Coeff of Dottie 13.5, Plt Count 145 L, MPV 10.1, Immature Gran % (Auto) 0.600, Neut % (Auto) 62.7, Lymph % (Auto) 21.7, [place] % (Auto) 12.3 H, Eos % (Auto) 2.0, Baso % (Auto) 0.7, Absolute Neuts (auto) 3.4, Absolute Lymphs (auto) 1.18, Nucleated RBC % 0 01/29/23 07:00: Sodium 138, Potassium 6.3 H*, Chloride 106, Carbon Dioxide 23.0, Anion Gap 9, BUN 101 H*, Creatinine 14.90 H*, Estim Creat Clear Calc 2.84, Est GFR (MDRD) Af Amer 3 L, Est GFR (MDRD) Non-Af 3 L, BUN/Creatinine Ratio 6.8 L, Glucose 84, Calcium 8.1 L 01/29/23 07:00: APTT 60.0 H Radiology Impression Abdomen/Pelvis CT 01/28/23 12:01 IMPRESSION: Extensive atherosclerotic calcification of the aorta and its major visceral branches. Sigmoid diverticulosis. Nonobstructive bilateral intrarenal calculi. Mild degree of increased markings at the lung bases suggestive of atelectasis. Electronically Signed: Tacho Russell MD at 14:03 EDT , Chest X-Ray 01/28/23 13:54 IMPRESSION: No acute abnormality is seen. Electronically Signed: Tacho Russell MD at 14:21 EDT ,
[2023-01-29] MEDS: Acetaminophen 325 MG Tablet 650 MG PO (16:54)
--- NOTE | 2023-01-29 18:19 | DIALYSIS ---
Hemodialysis complete, pt tolerated only 2.5 hours, stating she was cramping and wanted off. Gave 200ml rinse and stopped pulling fluid, pt still stating wanted off. Blood returned.
[2023-01-29] MEDS: Heparin 10,000 UNITS/10 ML Vial IV (18:58)
[2023-01-29] MEDS: Atorvastatin Calcium 40 MG Tablet PO (21:58)
[2023-01-29] MEDS: Nepro with Carbsteady 237 ML Liquid 120 ML PO (21:58)
[2023-01-30] VITALS (20 sets, daily range): BP systolic 125–191; BP diastolic 48–68; PULSE 72–83; RESP 14–18; TEMP 36.6–37.3; O2SAT 96–100; BMI 29.9
[2023-01-30 06:01] LABS: Anion Gap 11 (5-15); BUN 46 mg/dL (7-18); BUN/Creat Ratio 5.2 RATIO (10-20); Calcium,Total 8.3 mg/dL (8.5-10.1); Chloride 102 mmol/L (98-107); Creatinine, Serum 8.84 mg/dL (0.55-1.02); EST Glomerular Filtration Rate 5 mL/min (>60); Est Glom Filt Rate - Afr Amer 6 mL/min (>60); Estimated Creatinine Clearance 4.79 ml/min; Glucose 77 mg/dL (74-106); Sodium Level 137 mmol/L (136-145)
[2023-01-30 06:18] LABS: Absolute Lymphocyte Count 1.22 X10^3/uL (0.83-4.51); Absolute Neutrophil Count 2.3 X10^3/uL (2.0-7.7); Basophil# 0.02 X10^3/uL; Basophil% 0.5 % (0-1); Eosinophils% 2.4 % (0-5); Hematocrit 26.5 % (37-47); Hemoglobin 8.4 g/dL (12.0-15.0); Lymphocyte # 1.22 X10^3/ul (0.83-4.51); Lymphocyte % 29.4 % (19-41); Mean Corp Hgb Conc 31.7 g/dL (32-36); Mean Corpuscular Hgb 29.7 pg (27.0-32.0); Mean Corpuscular Volume 93.6 fL (81-99); Mean Platelet Vol. 10.3 fl (6.2-12.0); Monocyte# 0.47 X10^3/uL; Monocyte% 11.3 % (0-10); NRBC Flagged by Analyzer 0 % (0-5); Neutrophil # 2.32 X10^3/uL (2.7-7.7); Neutrophil % 55.9 % (47-70); Platelet Count 138 K/mm3 (150-450); RBC Distribution Width CV 13.2 % (11.6-14.6); RBC Distribution Width SD 45.4 fl (35.1-43.9); Red Blood Count 2.83 M/mm3 (4.2-5.4); White Blood Count 4.2 K/mm3 (4.4-11.0)
[2023-01-30] MEDS: Ipratropium/Albuterol Sulfate 3 ML AMPUL.NEB INHALATION ×2 (07:12→19:17)
[2023-01-30] MEDS: Aspirin E.C. 81 MG Tablet PO (08:10)
[2023-01-30] MEDS: Metoprolol Tartrate 25 MG Tablet PO ×2 (08:10→20:39)
--- NOTE | 2023-01-30 08:27 | PN.HOSP_ITS ---
Reason for Visit Reason for Visit: Diagnoses Hyperkalemia (01/29/23) Transient cerebral ischemic attack, unspecified (01/29/23) Essential (primary) hypertension (01/29/23) Non-ST elevation (NSTEMI) myocardial infarction (01/29/23) End stage renal disease (01/29/23) Chronic kidney disease, unspecified (01/29/23) Unspecified abdominal pain (01/29/23) Dependence on renal dialysis (01/29/23) Subjective Subjective Patient complaining of constipation. Objective Data Objective Data Vital Signs: Vital Signs Temp Pulse Resp BP Pulse Ox O2 Del Method O2 Flow Rate 37.3 C H 80 16 164/52 H 96 Nasal Cannula 3 01/30/23 07:55 01/30/23 08:10 01/30/23 07:55 01/30/23 08:10 01/30/23 07:59 01/30/23 07:59 01/30/23 07:59 Oxygen Flow Rate (L/min) 3 Oxygen Delivery Method Nasal Cannula Weight: 71.9 kg Body Mass Index (BMI) 29.9 Intake & Output: Intake and Output for Last 24 Hours 01/28/23 01/29/23 01/30/23 23:59 23:59 23:59 Intake Total 307.5 / 357.5 261.22 / 261.22 0 / 0 Output Total 1412 / 1412 Balance 307.5 / 357.5 -1150.78 / -1150.78 0 / 0 Lab / Micro Data Result Diagrams: 01/30/23 05:58 01/30/23 04:45 Labs: Laboratory Results - last 24 hr 01/30/23 04:45: WBC Cancelled, Corrected WBC Cancelled, RBC Cancelled, Hgb Cancelled, Hct Cancelled, MCV Cancelled, MCH Cancelled, MCHC Cancelled, RDW Std Deviation Cancelled, RDW Coeff of Dottie Cancelled, Plt Count Cancelled, MPV Cancelled, Immature Gran % (Auto) Cancelled, Neut % (Auto) Cancelled, Lymph % (Auto) Cancelled, Cook % (Auto) Cancelled, Eos % (Auto) Cancelled, Baso % (Auto) Cancelled, Absolute Neuts (auto) Cancelled, Absolute Lymphs (auto) Cancelled, Total Counted Cancelled, Neutrophils % (Manual) Cancelled, Band Neutrophils % Cancelled, Lymphocytes % (Manual) Cancelled, Monocytes % (Manual) Cancelled, Eosinophils % (Manual) Cancelled, Basophils % (Manual) Cancelled, Metamyelocytes % Cancelled, Myelocytes % Cancelled, Promyelocytes % Cancelled, Blast Cells % Cancelled, Plasma Cell % (Manual) Cancelled, Other Cells % Cancelled, Nucleated RBC % Cancelled, Nucleated RBCs/100 WBC Cancelled, Differential Comment Cancelled, Diff Path Review Cancelled, Hypersegmented Neuts Cancelled, Atypical Lymphocytes Cancelled, Reactive Lymphocytes Cancelled, Smudge Cells Cancelled, Toxic Granulation Cancelled, Toxic Vacuolation Cancelled, Dohle Bodies Cancelled, Linda Rods Cancelled, Platelet Estimate Cancelled, Plt Morphology Comment Cancelled, RBC Morphology Cancelled, Polychromasia Cancelled, Hypochromasia Cancelled, Poikilocytosis Cancelled, Basophilic Stippling Cancelled, Anisocytosis Cancelled, Microcytosis Cancelled, Macrocytosis Cancelled, Spherocytes Cancelled, Sickle Cells Cancelled, Target Cells Cancelled, Tear Drop Cells Cancelled, Ovalocytes Cancelled, Stomatocytes Cancelled, [place]mit[place] Bodies Cancelled, [place] Cells Cancelled, Bite Cells Canc elled, Crenated Cell Cancelled, Acanthocytes (Spur) Cancelled, Rouleaux Cancelled, Schistocytes Cancelled 01/30/23 04:45: Sodium 137, Potassium 5.0, Chloride 102, Carbon Dioxide 24.0, Anion Gap 11, BUN 46 H, Creatinine 8.84 H*, Estim Creat Clear Calc 4.79, Est GFR (MDRD) Af Amer 6 L, Est GFR (MDRD) Non-Af 5 L, BUN/Creatinine Ratio 5.2 L, Glucose 77, Calcium 8.3 L 01/30/23 05:58: WBC 4.2 L, RBC 2.83 L, Hgb 8.4 L, Hct 26.5 L, MCV 93.6, MCH 29.7, MCHC 31.7 L, RDW Std Deviation 45.4 H, RDW Coeff of Dottie 13.2, Plt Count 138 L, MPV 10.3, Immature Gran % (Auto) 0.500, Neut % (Auto) 55.9, Lymph % (Auto) 29.4, Cook % (Auto) 11.3 H, Eos % (Auto) 2.4, Baso % (Auto) 0.5, Absolute Neuts (auto) 2.3, Absolute Lymphs (auto) 1.22, Nucleated RBC % 0 Radiography Diagnostic Testing: Radiology Impression Echocardiogram 01/28/23 15:52 Interpretation Summary The estimated ejection fraction is 50-55 %. In comparison to previous echocardiogram low normal ejection fraction is noted. Moderate mitral insufficiency. Ordering Physician: Remigio Strickland Referring Physician: Dru Cummins M.D. Performed By: Kia Muhammad RCS Physical Exam Const alert and no apparent distress HEENT head/scalp atraumatic and moist oral mucous membranes Resp normal respiratory effort, no retractions, no use of accessory muscles and clear to auscultation bilaterally Cardio regular rate, regular rhythm, S1 normal heart sound and S2 normal heart sound GI normal to inspection, nondistended, normoactive bowel sounds, soft to palpation and non-tender Assessment & Plan Assessment/Plan (1) Non-ST elevated myocardial infarction: PLAN: initial troponin was markedly elevated at >400. Has missed dialysis once and also to have dialysis today making a total of 2 sessions of dialysis she has not had. This will definitely contribute to the elevated troponins but in light of her being symptomatic as well, I do think it is best to err on the side of caution and treat as non-STEMI. Patient started on heparin drip in the ED, will continue. Cardiology consulted and per discussion with Dr. Crooks at patient's bedside, to prepare for cardiac cath tomorrow. Already on high intensity statin and carvedilol as well as Plavix. Give aspirin 2D echo shows EF 50-55% (down from 09/21/22 where it was 65%), moderate PA DW Dr. Strickland, patient with multivessel coronary disease, involving the LAD, circumflex and RCA. He reached out and spoke to Dr. Wyman, of [facility] at [facility]. I subsequently spoke with the [employer] of CTS and updated her. (2) Chronic progressive renal failure: PLAN: ESRD with missed dialysis Has missed 2 sessions of dialysis because she was not feeling well. Nephrology consulted to him to have dialysis. sodium bicarbonate and calcium acetate had HD on 01/29 (3) Abdominal pain: PLAN: CT abd/pelvis showed extensive atherosclerosis. Sigmoid diverticulosis w/o diverticulitis Likely due to constipation. Patient received miralax and bisacodyl (4) Hyperkalemia: PLAN: not hemolyzed on sample for HD 01/29 (5) Hypertension, accelerated: PLAN: resume amlodipine, carvedilol, hydralazine. PLAN: Plan Chronic conditions: * Chronic hypoxic respiratory failure: Due to ESRD and COPD. On 3 L of oxygen. Breathing treatments bronchodilators. * hypertension: On carvedilol and hydralazine as well as amlodipine * GERD: On PPI * CVA DVT prophylaxis: on heparin drip CODE STATUS: Full code Charges/Coding Visit Charges Inpatient E&M: 48729 Subs Hosp L2
--- NOTE | 2023-01-30 09:03 | PCM.PN.REN ---
Subjective Subjective Resting quietly in bed. No overnight events. Patient had dialysis yesterday but truncated treatment after about 2.5 hours due to complaint of cramping. Objective Data Objective Data Vital Signs: Vital Signs Temp Pulse Resp BP Pulse Ox O2 Del Method O2 Flow Rate 99.2 F H 80 16 164/52 H 96 Nasal Cannula 3 01/30/23 07:55 01/30/23 08:10 01/30/23 07:55 01/30/23 08:10 01/30/23 07:59 01/30/23 07:59 01/30/23 07:59 Oxygen Flow Rate (L/min) 3 Oxygen Delivery Method Nasal Cannula Weight: 71.9 kg Body Mass Index (BMI) 29.9 Intake & Output: Intake and Output for Last 24 Hours 01/28/23 01/29/23 01/30/23 23:59 23:59 23:59 Intake Total 307.5 / 357.5 261.22 / 261.22 0 / 0 Output Total 1412 / 1412 Balance 307.5 / 357.5 -1150.78 / -1150.78 0 / 0 Lab / Micro Data Result Diagrams: 01/30/23 05:58 01/30/23 04:45 Labs: Laboratory Results - last 24 hr 01/30/23 04:45: WBC Cancelled, Corrected WBC Cancelled, RBC Cancelled, Hgb Cancelled, Hct Cancelled, MCV Cancelled, MCH Cancelled, MCHC Cancelled, RDW Std Deviation Cancelled, RDW Coeff of Dottie Cancelled, Plt Count Cancelled, MPV Cancelled, Immature Gran % (Auto) Cancelled, Neut % (Auto) Cancelled, Lymph % (Auto) Cancelled, [place] % (Auto) Cancelled, Eos % (Auto) Cancelled, Baso % (Auto) Cancelled, Absolute Neuts (auto) Cancelled, Absolute Lymphs (auto) Cancelled, Total Counted Cancelled, Neutrophils % (Manual) Cancelled, Band Neutrophils % Cancelled, Lymphocytes % (Manual) Cancelled, Monocytes % (Manual) Cancelled, Eosinophils % (Manual) Cancelled, Basophils % (Manual) Cancelled, Metamyelocytes % Cancelled, Myelocytes % Cancelled, Promyelocytes % Cancelled, Blast Cells % Cancelled, Plasma Cell % (Manual) Cancelled, Other Cells % Cancelled, Nucleated RBC % Cancelled, Nucleated RBCs/100 WBC Cancelled, Differential Comment Cancelled, Diff Path Review Cancelled, Hypersegmented Neuts Cancelled, Atypical Lymphocytes Cancelled, Reactive Lymphocytes Cancelled, Smudge Cells Cancelled, Toxic Granulation Cancelled, Toxic Vacuolation Cancelled, Dohle Bodies Cancelled, Linda Rods Cancelled, Platelet Estimate Cancelled, Plt Morphology Comment Cancelled, RBC Morphology Cancelled, Polychromasia Cancelled, Hypochromasia Cancelled, Poikilocytosis Cancelled, Basophilic Stippling Cancelled, Anisocytosis Cancelled, Microcytosis Cancelled, Macrocytosis Cancelled, Spherocytes Cancelled, Sickle Cells Cancelled, Target Cells Cancelled, Tear Drop Cells Cancelled, Ovalocytes Cancelled, Stomatocytes Cancelled, Schmitz-[place] Bodies Cancelled, [place] Cells Cancelled, Bite Cells Cancelled, Crenated Cell Cancelled, Acanthocytes (Spur) Cancelled, Rouleaux Cancelled, Schistocytes Cancelled 01/30/23 04:45: Sodium 137, Potassium 5.0, Chloride 102, Carbon Dioxide 24.0, Anion Gap 11, BUN 46 H, Creatinine 8.84 H*, Estim Creat Clear Calc 4.79, Est GFR (MDRD) Af Amer 6 L, Est GFR (MDRD) Non-Af 5 L, BUN/Creatinine Ratio 5.2 L, Glucose 77, Calcium 8.3 L 01/30/23 05:58: WBC 4.2 L, RBC 2.83 L, Hgb 8.4 L, Hct 26.5 L, MCV 93.6, MCH 29.7, MCHC 31.7 L, RDW Std Deviation 45.4 H, RDW Coeff of Dottie 13.2, Plt Count 138 L, MPV 10.3, Immature Gran % (Auto) 0.500, Neut % (Auto) 55.9, Lymph % (Auto) 29.4, [place] % (Auto) 11.3 H, Eos % (Auto) 2.4, Baso % (Auto) 0.5, Absolute Neuts (auto) 2.3, Absolute Lymphs (auto) 1.22, Nucleated RBC % 0 Radiography Diagnostic Testing: Radiology Impression Echocardiogram 01/28/23 15:52 Interpretation Summary The estimated ejection fraction is 50-55 %. In comparison to previous echocardiogram low normal ejection fraction is noted. Moderate mitral insufficiency. Ordering Physician: Remigio Strickland Referring Physician: Dru Cummins M.D. Performed By: Kia Muhammad RCS Physical Exam Narrative Alert and oriented x3, no apparent distress S1, S2, RRR Lung sounds clear anteriorly and posteriorly Abdomen soft, nontender, positive bowel sounds no edema Tunneled HD catheter right chest dressing clean, dry and intact Assessment & Plan Assessment/Plan (1) End-stage renal disease on hemodialysis: (2) Hyperkalemia: PLAN: Plan -ESRD on hemodialysis Friday schedule at [facility]. Patient dialyzed last evening on 2k bath over 2.5 hours (had been attempting dialysis for over 3.5hrs) with around 1 L fluid removal, she truncated dialysis treatment early due to cramping. We will plan for dialysis today after heart cath. Current EDW 71 kg. Reviewed chest x-ray, lungs clear, no acute abnormality. Patient had CT of abdomen/pelvis which showed sigmoid diverticulosis, extensive atherosclerotic calcification of aorta and its major visceral branches. -Hyperkalemia secondary to missing dialysis. Potassium is 5.0 today. Patient will dialyze on 2K bath. -NSTEMI; Patient to have heart cath today. Patient is on heparin drip. Echo: Mildly dilated left ventricle, EF 50 to 55%, moderate mitral insufficiency -History of anemia of chronic disease and receives BHAVIN and iron at kidney center. Current hemoglobin 8.4, we will monitor hemoglobin trends. - Current blood pressures acceptable on metoprolol.
[2023-01-30 09:20] LABS: Hepatitis B Surface Antigen Non-Reactive (Nonreactive)
[2023-01-30 09:35] LABS: Troponin-I HS 313 pg/mL (3.0-54.0)
--- NOTE | 2023-01-30 11:39 | PCM.OP.PRO ---
Procedure Report Date of Procedure: 01/30/23 Left heart catheterization 1. Moderate sedation 2. Selective left coronary angiography 3. Selective right coronary angiography 4. Left ventriculogram 5. Measurement of LVEDP 6. Pullback pressure 7. selective right common femoral artery angiography 8. Manual pressure applied to right groin to maintain hemostasis Consent; Risk and benefit of procedure explained detail patient agreed to proceed informed consent 10 Preprocedure diagnosis; 67-year-old patient presented with symptoms of shortness of breath and chest pain Patient had history of end-stage renal disease has been on hemodialysis Evidently patient missed 2 days of dialysis And presented complaining of nausea vomiting to the ER As well complaining of symptoms of retrosternal chest pain with some radiation typically to the jaw and to the left arm. And evaluation with a cardiac marker showed elevated cardiac biomarkers with a clinical diagnosis of non-ST elevation [place]. She has a history of hypertension, carotid artery stenosis, history of stroke anemia On this admission she had mild elevation of cardiac biomarkers with elevated troponins. And was brought into the [facility]. Access; Under fluoroscopic guidance Access obtained from right common femoral artery with the placement of 6 Mongolian sheath in the right common femoral artery Diagnostic catheters; 1. 5 Mongolian JL4 2. 5 Mongolian JR4. Procedure in detail; Under fluoroscopic guidance we proceed with 5 Mongolian JL 4 advanced sending aorta cannulated the left main Multiple views of left [place] were obtained Following this the catheter exchanged for 5 Mongolian 4 and selective angiographic right current system were obtained Following this catheter exchanged for 5 Mongolian pigtail catheter advanced [place] across aortic valve and placed in the mid left ventricle L ventricular obtained 30 degree NGO projection Following this all angiography were studied. Hemodynamics; LVEDP measuring 22 mmHg LV systolic function preserved Ejection fraction is 55 to 60% There is no systolic gradient across aortic valve. There is no mitral regurgitation noted. Coronary angiography; Left main is calcified with extension of calcification through the LAD left circumflex and ramus intermedius Angiographically the distal left main had around 40 to 50% stenosis and is calcified Trifurcated into LAD, ramus intermedius and left circumflex Left anterior descending is a large vessel, reaches all the way to the apex Angiographically proximal mid and distal LAD is calcified With the mid LAD had an eccentric calcified lesion of around 70% Ostial large D1 had a 60% stenosis it is a large artery which branching vessel The distal LAD had no significant atherosclerosis. Ramus intermedius is moderate to large size vessel ostial ramus intermedius at around 5060% stenosis Left circumflex is small to moderate in size with subtotal ostial and proximal left circumflex artery 99% And collaterals noted from the distal part of the LAD into the distal part of the left circumflex artery RCA is dominant with diffuse mid RCA atherosclerosis of around 70% Following this selective right common femoral artery angiography obtained and hemostasis maintained with manual pressure. Conclusion recommendations; With a contrast injection patient felt nauseated and vomiting and she was medicated in the [facility] with Benadryl 25 mg Solu-Medrol 125 mg, and as well she was given Zofran. Please note total amount of contrast in this case is 100 cc Fluoroscopy time is 4.5 This patient with end-stage renal disease and non-STEMI Presented with nausea vomiting abdominal pain She missed 2 days of dialysis and she has anemia she underwent hemodialysis during this admission and underwent cardiac catheterization for clinical diagnosis of non-ST elevation [place] She had severe calcific coronary artery disease/multivessel with normal LV systolic function At this point plan will be medical treatment and transfer to care for evaluation with CABG Also she had severe peripheral vascular disease noted calcified common femoral artery as well as a SFA and right profunda I discussed with the vascular surgeon Dr. Klaus Blanco RN, and patient can be seen and evaluated as an outpatient for PVD. Patient tolerated procedure very well with no complication. No complication in the [facility] Remigio Strickland MD,FACC,[facility]
--- NOTE | 2023-01-30 14:40 | DCINST_ITS ---
Discharge Instructions Diet Discharge Diet: Renal Diet Dressing / Incision Call your doctor if you observe: Shortness of breath and Chest pain Follow Up Care Test Results: Test results from this visit will be discussed in further detail at your follow- up appointment, if applicable. Discharge Plan Admission Admit Date/Time: 01/29/23 14:44 Primary Reason for Your Visit: NSTEMI Attending Provider: Tommy Soto Primary Care Provider: Prince Cummins Consulting Providers: Remigio Strickland ; [place] Gaytan ; Nayla Story Discharge Orders/Prescriptions Prescriptions: No Action carvedilol [Coreg] 12.5 mg tablet 12.5 mg PO BID calcium acetate(phosphat bind) 667 mg capsule 2 cap PO TID cinacalcet 30 mg Tablet 30 mg PO DAILY multivitamin [Daily-Caron] Tablet 1 tab PO DAILY hydralazine 25 mg tablet 25 mg PO TID amlodipine 10 mg tablet 10 mg PO DAILY atorvastatin 80 mg tablet 80 mg PO QHS clopidogrel 75 mg tablet 75 mg PO DAILY sevelamer carbonate 800 mg tablet 800 mg PO TID Referrals / Follow Up: Prince Cummins, DO [Primary Care Provider] -
--- NOTE | 2023-01-30 14:41 | DS.PCM_ITS ---
Providers Date of Admission: 01/29/23 Primary Care Physician: Dr. Prince Cummins, DO Consultations 01/28/23 15:45 Consult: Cardiology Routine Consulting Provider: Remigio Strickland Reason for Consult: Chest Pain EMERGENT Consult: No MD Notified: Yes Date Notified: 01/28/23 Time Notified: 15:15 Method of Notification: Verbal Consult: Nephrology Routine Consulting Provider: Africa Gaytan Reason for Consult: ESRD, needs dialysis EMERGENT Consult: No MD Notified: Yes Date Notified: 01/28/23 Time Notified: 15:19 Method of Notification: Text Reason For Visit: CHEST PAIN, MISSED DIALYSIS Diagnosis Discharge Diagnosis (1) Non-ST elevated myocardial infarction: Status: Acute Code(s): I21.4 - Non-ST elevation (NSTEMI) myocardial infarction Plan: initial troponin was markedly elevated at >400. Has missed dialysis once and also to have dialysis today making a total of 2 sessions of dialysis she has not had. This will definitely contribute to the elevated troponins but in light of her being symptomatic as well, I do think it is best to err on the side of caution and treat as non-STEMI. Patient started on heparin drip in the ED, will continue. Cardiology consulted and per discussion with Dr. Crooks at patient's bedside, to prepare for cardiac cath tomorrow. Already on high intensity statin and carvedilol as well as Plavix. Give aspirin 2D echo shows EF 50-55% (down from 09/21/22 where it was 65%), moderate [place] DW Dr. Strickland, patient with multivessel coronary disease, involving the LAD, circumflex and RCA. He reached out and spoke to Dr. Wyman, of CTS at [facility]. I subsequently spoke with the WELDER SETTER ELECTRON BEAM MACHINE of CTS and updated her. (2) Chronic progressive renal failure: Status: Chronic Code(s): N18.9 - Chronic kidney disease, unspecified Plan: ESRD with missed dialysis Has missed 2 sessions of dialysis because she was not feeling well. Nephrology consulted to him to have dialysis. sodium bicarbonate and calcium acetate had HD on 01/29 (3) Abdominal pain: Status: Acute Code(s): R10.9 - Unspecified abdominal pain Plan: CT abd/pelvis showed extensive atherosclerosis. Sigmoid diverticulosis w/o diverticulitis Likely due to constipation. Patient received miralax and bisacodyl (4) Hyperkalemia: Status: Acute Code(s): E87.5 - Hyperkalemia Plan: not hemolyzed on sample for HD 01/29 (5) Hypertension, accelerated: Status: Acute Code(s): I10 - Essential (primary) hypertension Plan: resume amlodipine, carvedilol, hydralazine. Plan Chronic conditions: * Chronic hypoxic respiratory failure: Due to ESRD and COPD. On 3 L of oxygen. Breathing treatments bronchodilators. * hypertension: On carvedilol and hydralazine as well as amlodipine * GERD: On PPI * CVA DVT prophylaxis: on heparin drip CODE STATUS: Full code Medications at Discharge Home Medications carvedilol 12.5 mg tablet (Coreg) 12.5 mg PO BID HEART 11/28/20 calcium acetate(phosphat bind) 667 mg capsule 2 cap PO TID SUPPLEMENT 03/07/22 amlodipine 10 mg tablet 10 mg PO DAILY BLOOD PRESSURE 09/19/22 cinacalcet 30 mg tablet 30 mg PO DAILY DIALYSIS 09/19/22 hydralazine 25 mg tablet 25 mg PO TID BLOOD PRESSURE 09/19/22 multivitamin (Daily-Caron tablet) 1 tab PO DAILY HEALTH MAINTENANCE 09/19/22 atorvastatin 80 mg tablet 80 mg PO QHS CHOLESTEROL 01/28/23 clopidogrel 75 mg tablet 75 mg PO DAILY BLOOD THINNER 01/28/23 sevelamer carbonate 800 mg tablet 800 mg PO TID DIALYSIS 01/28/23 Hospital Course Operations None Procedures 2-D Echocardiogram and Cardiac catheterization Summary of Care Provided Minutes Spent on Discharge: 32 Hospital Course: Patient presents with chest pain and had a non-ST ovation myocardial infarction with troponins that peaked at 434. Patient was started on a heparin drip and patient underwent left heart catheterization that showed multivessel disease involving the LAD, RCA and circumflex. Patient will be transferred to [facility] in stable condition for evaluation for CABG. Weight / BMI Weight Weight: 71.9 kg Body Mass Index (BMI) 29.9 ABG / Lab / Microbiology Data Result Diagrams: 01/30/23 05:58 01/30/23 04:45 Laboratory: Laboratory Results - last 24 hr 01/29/23 07:00: Hep Bs Antigen Non-Reactive 01/30/23 04:45: WBC Cancelled, Corrected WBC Cancelled, RBC Cancelled, Hgb Cancelled, Hct Cancelled, MCV Cancelled, MCH Cancelled, MCHC Cancelled, RDW Std Deviation Cancelled, RDW Coeff of Dottie Cancelled, Plt Count Cancelled, MPV Cancelled, Immature Gran % (Auto) Cancelled, Neut % (Auto) Cancelled, Lymph % (Auto) Cancelled, [place] % (Auto) Cancelled, Eos % (Auto) Cancelled, Baso % (Auto) Cancelled, Absolute Neuts (auto) Cancelled, Absolute Lymphs (auto) Cancelled, Total Counted Cancelled, Neutrophils % (Manual) Cancelled, Band Neutrophils % Cancelled, Lymphocytes % (Manual) Cancelled, Monocytes % (Manual) Cancelled, Eosinophils % (Manual) Cancelled, Basophils % (Manual) Cancelled, Metamyelocytes % Cancelled, Myelocytes % Cancelled, Promyelocytes % Cancelled, Blast Cells % Cancelled, Plasma Cell % (Manual) Cancelled, Other Cells % Cancelled, Nucleated RBC % Cancelled, Nucleated RBCs/100 WBC Cancelled, Differential Comment Cancelled, Diff Path Review Cancelled, Hypersegmented Neuts Cancelled, Atypical Lymphocytes Cancelled, Reactive Lymphocytes Cancelled, Smudge Cells Cancelled, Toxic Granulation Cancelled, Toxic Vacuolation Cancelled, Dohle Bodies Cancelled, Linda Rods Cancelled, Platelet Estimate Cancelled, Plt Morphology Comment Cancelled, RBC Morphology Cancelled, Polychromasia Cancelled, Hyp ochromasia Cancelled, Poikilocytosis Cancelled, Basophilic Stippling Cancelled, Anisocytosis Cancelled, Microcytosis Cancelled, Macrocytosis Cancelled, Spherocytes Cancelled, Sickle Cells Cancelled, Target Cells Cancelled, Tear Drop Cells Cancelled, Ovalocytes Cancelled, Stomatocytes Cancelled, Schmitz-Mesick Bodies Cancelled, Sherin Cells Cancelled, Bite Cells Cancelled, Crenated Cell Cancelled, Acanthocytes (Spur) Cancelled, Rouleaux Cancelled, Schistocytes Cancelled 01/30/23 04:45: Sodium 137, Potassium 5.0, Chloride 102, Carbon Dioxide 24.0, Anion Gap 11, BUN 46 H, Creatinine 8.84 H*, Estim Creat Clear Calc 4.79, Est GFR (MDRD) Af Amer 6 L, Est GFR (MDRD) Non-Af 5 L, BUN/Creatinine Ratio 5.2 L, Glucose 77, Calcium 8.3 L 01/30/23 04:45: Troponin I High Sens 313 H* 01/30/23 05:58: WBC 4.2 L, RBC 2.83 L, Hgb 8.4 L, Hct 26.5 L, MCV 93.6, MCH 29.7, MCHC 31.7 L, RDW Std Deviation 45.4 H, RDW Coeff of Dottie 13.2, Plt Count 138 L, MPV 10.3, Immature Gran % (Auto) 0.500, Neut % (Auto) 55.9, Lymph % (Auto) 29.4, [place] % (Auto) 11.3 H, Eos % (Auto) 2.4, Baso % (Auto) 0.5, Absolute Neuts (auto) 2.3, Absolute Lymphs (auto) 1.22, Nucleated RBC % 0 D/C Instructions Discharge Diet: Renal Diet Meaningful Use Info Meaningful Use Diagnoses (Choose all that apply): AMI AMI/Post PCI/Angioplasty Aspirin given w/in 24hrs of arrival?: Yes ASA at discharge?: Yes Antiplatelet Therapy at Discharge:: No Reason Antiplatelet Therapy not ordered:: surgery evaluation Statins at discharge?: Yes Rufino/ARB at discharge?: No Reason Rufino/ARB not ordered:: Worsening renal dysfunctn Beta Filomena at discharge?: Yes Done w/ Acute [place] measure.: Yes Documented LVEF (%): 50 Discharge Plan Admission Admit Date/Time: 01/29/23 14:44 Primary Reason for Your Visit: NSTEMI Attending Provider: Tommy Soto Primary Care Provider: Prince Cummins Consulting Providers: Remigio Strickland ; Africa Gaytan ; Nayla Story Discharge Orders/Prescriptions Prescriptions: No Action carvedilol [Coreg] 12.5 mg tablet 12.5 mg PO BID calcium acetate(phosphat bind) 667 mg capsule 2 cap PO TID cinacalcet 30 mg Tablet 30 mg PO DAILY multivitamin [Daily-Caron] Tablet 1 tab PO DAILY hydralazine 25 mg tablet 25 mg PO TID amlodipine 10 mg tablet 10 mg PO DAILY atorvastatin 80 mg tablet 80 mg PO QHS clopidogrel 75 mg tablet 75 mg PO DAILY sevelamer carbonate 800 mg tablet 800 mg PO TID Referrals / Follow Up: Prince Cummins DO [Primary Care Provider] - Disposition Disposition (needs filled in before D/C Order can be placed): Acute Care Hospital Charges/Coding Visit Charges Inpatient E&M: 83214 Disch Hosp >30min
[2023-01-30] MEDS: Heparin 10,000 UNITS/10 ML Vial IV (15:09)
--- NOTE | 2023-01-30 15:48 | DIALYSIS ---
Hemodialysis complete. 3.5 hour run, 2k bath. Net fluid removed = 1100 ml. Patient tolerated HD tx well Right chest CVC: Site benign, biofilm dressing dry and intact. Lumen flushed with NS, filled to volume with Heparin, clamped and capped. Report given to primary RN, Basil Hensley.
[2023-01-30] MEDS: Acetaminophen 325 MG Tablet 650 MG PO (16:21)
[2023-01-30] MEDS: Carvedilol 12.5 MG Tablet PO ×2 (16:23→20:38)
[2023-01-30] MEDS: hydrALAZINE 25 MG Tablet PO ×2 (16:24→23:06)
[2023-01-30] MEDS: amLODIPine 10 MG Tablet PO (16:24)
[2023-01-30] MEDS: SEVELAMER CARBONATE 800 MG TABLET PO (16:25)
[2023-01-30] MEDS: Calcium Acetate 667 MG Capsule 1334 MG PO (16:25)
[2023-01-30] MEDS: Polyethylene Glycol 3350 17 GM PACKET PO ×2 (16:44→18:46)
[2023-01-30] MEDS: Bisacodyl 5 MG Tablet 10 MG PO (16:44)
[2023-01-30 17:07] LABS: Partial Thromboplast Time 36.5 Seconds (24.1-36.2)
[2023-01-30] MEDS: HEPARIN/D5w 25,000 UNITS 25,000 UNITS/250 ML IV.SOLN. 9 UNITS CONT INF (17:22)
[2023-01-30] MEDS: Heparin Injection (Vial) 5,000 UNIT/ML VIAL 4000 UNIT IV (17:23)
[2023-01-30] MEDS: Atorvastatin Calcium 40 MG Tablet PO (20:37)
[2023-01-30 23:43] LABS: Partial Thromboplast Time 176.6 Seconds (24.1-36.2)
--- NOTE | 2023-01-30 23:49 | NURSING ---
Heparin gtt turned off for PTT critical at 176.6, will resume at 02:49
[2023-01-31 02:49] VITALS: BP 150/50; PULSE 79; RESP 18; TEMP 37; O2SAT 97
[2023-01-31 03:00] VITALS: BP 167/56; PULSE 76; RESP 18; TEMP 37; O2SAT 97
[2023-01-31 05:49] VITALS: BP 139/47; PULSE 70
[2023-01-31] MEDS: hydrALAZINE 25 MG Tablet PO (05:49)
[2023-01-31 06:00] VITALS: BMI 30.2
[2023-01-31] MEDS: Acetaminophen 325 MG Tablet 650 MG PO (07:23)
[2023-01-31 07:39] VITALS: PULSE 75; RESP 20; O2SAT 98
[2023-01-31] MEDS: Ipratropium/Albuterol Sulfate 3 ML AMPUL.NEB INHALATION (07:39)
--- NOTE | 2023-01-31 08:30 | PCM.PN.REN ---
Subjective Subjective Patient resting in bed. No overnight events. Objective Data Objective Data Vital Signs: Vital Signs Temp Pulse Resp BP Pulse Ox O2 Del Method O2 Flow Rate 98.6 F 75 20 H 139/47 H 98 Nasal Cannula 3 01/31/23 03:00 01/31/23 07:39 01/31/23 07:39 01/31/23 05:49 01/31/23 07:39 01/31/23 07:39 01/31/23 07:39 FiO2 3 01/30/23 21:37 Oxygen Flow Rate (L/min) 3 Oxygen Delivery Method Nasal Cannula Weight: 72.5 kg Body Mass Index (BMI) 30.2 Intake & Output: Intake and Output for Last 24 Hours 01/29/23 01/30/23 01/31/23 23:59 23:59 23:59 Intake Total 261.22 / 261.22 458.05 / 458.05 158.78 / 158.78 Output Total 1412 / 1412 1100 / 1100 0 / 0 Balance -1150.78 / -1150.78 -641.95 / -641.95 158.78 / 158.78 Lab / Micro Data Result Diagrams: 01/30/23 05:58 01/30/23 04:45 Labs: Laboratory Results - last 24 hr 01/29/23 07:00: Hep Bs Antigen Non-Reactive 01/30/23 04:45: Troponin I High Sens 313 H* 01/30/23 16:40: APTT 36.5 H 01/30/23 23:24: APTT 176.6 H* Physical Exam Narrative Alert and oriented x3, no apparent distress S1, S2, RRR Lung sounds clear anteriorly and posteriorly Abdomen soft, nontender, positive bowel sounds no edema Tunneled HD catheter right chest dressing clean, dry and intact Assessment & Plan Assessment/Plan (1) End-stage renal disease on hemodialysis: (2) Hyperkalemia: PLAN: Plan - ESRD on hemodialysis Friday schedule at [facility]. Patient dialyzed yesterday on 2K bath and tolerated around 1 L fluid removal. No acute indication for FRAUD REPRESENTATIVE today. Current EDW 71 kg. Reviewed chest x-ray, lungs clear, no acute abnormality. Patient had CT of abdomen/pelvis which showed sigmoid diverticulosis, extensive atherosclerotic calcification of aorta and its major visceral branches. - NSTEMI; Patient underwent left heart cath yesterday which showed multivessel disease involving LAD, RCA and circumflex. Patient to be transferred to [facility] for evaluation of CABG. Echo: Mildly dilated left ventricle, EF 50 to 55%, moderate mitral insufficiency - History of anemia of chronic disease and receives BHAVIN and iron at kidney center. Current hemoglobin 8.4, we will monitor hemoglobin trends. - Current blood pressures acceptable on metoprolol and norvasc. -History of hyperphosphatemia and secondary hyperparathyroidism. Patient is on Sensipar 30 mg daily and PhosLo 2 tabs with meals. Will monitor phosphorus levels periodically
[2023-01-31 09:13] LABS: Anion Gap 7 (5-15); BUN 30 mg/dL (7-18); BUN/Creat Ratio 5.2 RATIO (10-20); Calcium,Total 9.9 mg/dL (8.5-10.1); Chloride 97 mmol/L (98-107); Creatinine, Serum 5.72 mg/dL (0.55-1.02); EST Glomerular Filtration Rate 8 mL/min (>60); Est Glom Filt Rate - Afr Amer 10 mL/min (>60); Glucose 128 mg/dL (74-106); Potassium 4.3 mmol/L (3.5-5.1); Sodium Level 135 mmol/L (136-145)
--- NOTE | 2023-01-31 09:28 | NURSING ---
attempted to call report twice to [facility]. Both times was told RN would call back. Have not yet received a call back.
[2023-01-31] MEDS: Aspirin E.C. 81 MG Tablet PO (09:39)
[2023-01-31] MEDS: Multivitamins,Therapeutic Tablet 1 TABLET PO (09:40)
[2023-01-31] MEDS: Carvedilol 12.5 MG Tablet PO (09:40)
[2023-01-31] MEDS: Calcium Acetate 667 MG Capsule 1334 MG PO (09:40)
[2023-01-31 09:41] VITALS: PULSE 77
[2023-01-31] MEDS: Cinacalcet HCl 30 MG Tablet PO (09:41)
[2023-01-31] MEDS: Metoprolol Tartrate 25 MG Tablet PO (09:41)
[2023-01-31] MEDS: amLODIPine 10 MG Tablet PO (09:41)
--- NOTE | 2023-01-31 09:56 | NURSING ---
report called to Alee JORDAN at [facility]. [facility] here to transport patient at this time
[2023-01-31 09:57] VITALS: BP 111/40; PULSE 77; RESP 12; TEMP 36.7; O2SAT 97
== END 2023-01-31 10:05 | disposition short-term general hospital (02) | DRG 190 ==
LOC: ED 14:31 → PCU 15:00
PROVIDERS: Family Medicine; Internal Medicine Interventional Cardiology; Nurse Practitioner Adult Health; Admitting Provider Student in an Organized Health Care Education/Training Program; Emergency Provider Emergency Medicine; PCP Family Medicine
DX: I21.4 Non-ST elevation (NSTEMI) myocardial infarction (principal); J96.11 Chronic respiratory failure with hypoxia; I12.0 Hypertensive chronic kidney disease with stage 5 chronic kidney disease or end stage renal disease; D63.1 Anemia in chronic kidney disease; E83.39 Other disorders of phosphorus metabolism; N18.6 End stage renal disease; E11.22 Type 2 diabetes mellitus with diabetic chronic kidney disease; Z99.2 Dependence on renal dialysis; J44.9 Chronic obstructive pulmonary disease, unspecified; I70.0 Atherosclerosis of aorta; N25.81 Secondary hyperparathyroidism of renal origin; E11.51 Type 2 diabetes mellitus with diabetic peripheral angiopathy without gangrene; E78.00 Pure hypercholesterolemia, unspecified; E87.5 Hyperkalemia; K21.9 Gastro-esophageal reflux disease without esophagitis; K57.30 Diverticulosis of large intestine without perforation or abscess without bleeding; K59.00 Constipation, unspecified; I25.10 Atherosclerotic heart disease of native coronary artery without angina pectoris; Z99.81 Dependence on supplemental oxygen; Z79.02 Long term (current) use of antithrombotics/antiplatelets; Z79.899 Other long term (current) drug therapy; Z86.73 Personal history of transient ischemic attack (TIA), and cerebral infarction without residual deficits; Z87.891 Personal history of nicotine dependence
CPT/HCPCS: 36415; 71045; 74176; 80048; 80053; 81001; 83605; 84484; 85025; 85610; 85730; 87340; 90937; 93005; 93306; 93458; 94640; 94762; 97162; 97166; 97802; 99152; 99153; 99285; J7030; J7040; P9612; Q9967; A4216; C1769; G0257; J2405

== ENCOUNTER 2023-02-06 11:44 | Emergency (ER) | payer MEDICAID, SELFPAY ==
[2023-02-06 11:46] VITALS: TEMP 35.7; BMI 30.2
[2023-02-06 11:51] VITALS: BP 121/45; PULSE 74; RESP 20; O2SAT 100
--- NOTE | 2023-02-06 11:52 | ADUL_ITS ---
Reason For Study: Pseudoaneurysm right groin Right Velocities FORENSIC ENGINEER, 0.81 x 0.77 cm, 76.6 cm/sec. SFA prox, 0.71 x 0.68 cm, 39.2 cm/sec. SFA mid, 0.52 x 0.48 cm, 69.9 cm/sec. CFV and FV normal venous flow noted. Large partially thrombosed Pseudoaneurysm noted in the right groin with a neck measuring 0.29 cm. Preliminary report given to Dr. Moore. Procedure Exam performed portable in ED. VL/US Art Duplex Unilat Lower Ext Interpretation Summary Right femoral vessels patent with partially thrombosed pseudoaneurysm and surro unding hematoma. Ordering Physician: Fran Moore Referring Physician: Dru Cummins M.D. Performed By: Hawa Savage RVT
--- NOTE | 2023-02-06 11:56 | ED.VIS.LOWEX ---
HPI History of Present Illness Chief Complaint: Lower Extremity Injury Informant: patient and EMS Narrative Narrative: Within the last hour or 2, patient states she was getting ready to go to dialysis this morning and upon getting up she felt a sudden pop with pain in her right groin. Now it is swollen. She presents by EMS out of concern for this it is really painful. She was just here in the hospital and had a heart cath in the right common femoral artery puncture, and upon seeing the results of triple-vessel disease she was transferred to [facility] for evaluation for CABG, where they told her my heart was too weak and I am not a good surgical candidate. She confirms that they decided to manage her medically. She denies having any chest discomfort or other symptoms right now. Today was her routine dialysis today; she has not had it yet. Denies any numbness tingling weakness in the right lower extremity. [facility] Medical History Acute and chronic respiratory failure with hypoxia Ambulates with cane Anemia Asthma Cardiac dysrhythmia, unspecified Chest pain Chronic kidney disease, stage V requiring chronic dialysis Diabetes Dialysis patient Easy bruising Edentulous ESRD (end stage renal disease) on dialysis Former smoker Gastric reflux GI bleed Hepatitis High cholesterol HTN (hypertension) Hypertension Hypertension Hyponatremia Kidney disease Leg cramps NSTEMI, initial episode of care On home oxygen therapy PONV (postoperative nausea and vomiting) Post-menopausal Rheumatoid arthritis Shortness of breath on exertion SOB (shortness of breath) Stroke Substance abuse Type II diabetes mellitus Wears glasses Home Medications carvedilol 12.5 mg tablet (Coreg) 12.5 mg PO BID HEART 11/28/20 [History Last Taken 2 Days Ago ~01/26/23] calcium acetate(phosphat bind) 667 mg capsule 2 cap PO TID SUPPLEMENT 03/07/22 [History Last Taken 2 Days Ago ~01/26/23] amlodipine 10 mg tablet 10 mg PO DAILY BLOOD PRESSURE 09/19/22 [History Last Taken 2 Days Ago ~01/26/23] cinacalcet 30 mg tablet 30 mg PO DAILY DIALYSIS 09/19/22 [History Last Taken 2 Days Ago ~01/26/23] hydralazine 25 mg tablet 25 mg PO TID BLOOD PRESSURE 09/19/22 [History Last Taken 2 Days Ago ~01/26/23] multivitamin (Daily-Caron tablet) 1 tab PO DAILY HEALTH MAINTENANCE 09/19/22 [History Last Taken 2 Days Ago ~01/26/23] sevelamer carbonate 800 mg tablet 800 mg PO TID DIALYSIS 01/28/23 [History Last Taken 2 Days Ago ~01/26/23] atorvastatin 80 mg tablet 80 mg PO QHS CHOLESTEROL #90 tabs 02/04/23 [Rx Last Taken Unknown] clopidogrel 75 mg tablet 75 mg PO DAILY BLOOD THINNER #90 tabs 02/04/23 [Rx Last Taken Unknown] Allergy/AdvReac Type Severity Reaction Status Date / Time ceftriaxone Allergy Severe Rash Verified 02/06/23 12:18 vancomycin Allergy Severe Rash Verified 02/06/23 12:18 Penicillins Allergy Swelling Verified 02/06/23 12:18 oxycodone HCl [From Percocet] AdvReac Intermediate Itching Verified 02/06/23 12:18 Family History Mother Hypertension Emphysema/COPD Sister Hypertension Surgical History H/O: hysterectomy History of arteriovenostomy for renal dialysis History of eye surgery History of surgery knee scope S/P arteriovenous (AV) fistula creation Social History Smoking Status: Former smoker alcohol intake: current details: 1 per week substance use type: does not use what type of physical activity do you participate in: none ROS ROS ED Constitutional Constitutional ED: Denies chills or fever(s) Cardiovascular Cardiovascular: Denies chest pain or palpitations Respiratory/Chest Respiratory/Chest: Denies cough or dyspnea Gastrointestinal Gastrointestinal: Denies nausea or vomiting Musculoskeletal Musculoskeletal: Reports extremity pain; Denies neck pain Integumentary Denies Abrasions, rash or wounds Neurologic Neurologic: Denies paresthesias or weakness EXAM Physical Exam Const Vital Signs: 02/06/23 11:46 02/06/23 11:51 02/06/23 12:19 Temperature 96.3 F L Temperature Source Temporal Pulse Rate 74 70 Respiratory Rate 20 H 18 Blood Pressure 121/45 H 102/81 H Blood Pressure Mean 70 88 Pulse Ox 100 100 Oxygen Delivery Method Nasal Cannula Nasal Cannula Oxygen Flow Rate (L/min) 3 3 02/06/23 13:27 Temperature Temperature Source Pulse Rate 76 Respiratory Rate 14 Blood Pressure 115/45 L Blood Pressure Mean 68 Pulse Ox 96 Oxygen Delivery Method Nasal Cannula Oxygen Flow Rate (L/min) 3 Positive well nourished and well developed General Appearance ED: well developed and NAD Neck full ROM and supple Back/Spine normal ROM and normal to inspection Extremity Extremity Narrative: Tender swollen possibly early ecchymotic area right groin. Not able to feel femoral pulses due to the amount of swelling locally. Brisk cap refill distally in toes, not able to palpate dorsalis pedis pulse in either foot. All compartments are soft and not tense, nondistended. Painful limited range of motion of the right thigh due to pain in the groin. Neuro oriented x3, no focal motor deficits and no sensory deficits noted Sensorium / Orientation: alert Psych mental status grossly normal and thought process normal Skin no wounds Rashes: no rashes MDM MDM MDM Narrative Medical decision making narrative: I obtained a stat arterial ultrasound of the right femoral artery concern for about a pseudoaneurysm, this confirms that according to the digital camera technician and the images. She has a large hematoma, and the digital camera technician is not able to reduce it due to this. I applied an ice pack several times to the patient's groin. I had nurses Doppler pulses, they are dopplerable. I discussed with vascular Dr. Mills, he does not inject these, and the patient is not a good operative candidate for this facility because she was just diagnosed with multivessel coronary disease, and we cannot take her to the OR here, therefore I attempted to discuss with Dr. Mayer who does these, however he is not available today due to being out of town. Therefore, at this time we do not have the capacity to care for this problem/patient here. She was just at [facility] so I sought to transfer her there first after discussing with her, she is comfortable with that. With regards to her need for dialysis, her electrolytes are stable she is not clinically fluid overloaded, and that can wait until after we get her vascular emergency fixed. She is anemic at 7.7. She does not need to be emergently transfused at this time. Transfer center discussed with vascular Dr. Liu at [facility], who advised ED to ED transfer for interventional radiology consultation who does their injections there, excepted to the ED by Dr. Wei. History & Record Review Additional record(s) reviewed:: Prior inpatient record and Prior labs Lab Data Attestation: I reviewed the patient's lab results. Labs: Laboratory Results - last 24 hr 02/06/23 02/06/23 12:00 12:00 WBC 5.4 RBC 2.63 L Hgb 7.9 L Hct 24.4 L MCV 92.8 MCH 30.0 MCHC 32.4 RDW Std Deviation 45.6 H RDW Coeff of Dottie 13.5 Plt Count 202 MPV 10.0 Immature Gran % (Auto) 1.700 H Neut % (Auto) 55.4 Lymph % (Auto) 26.1 [place] % (Auto) 12.3 H Eos % (Auto) 3.9 Baso % (Auto) 0.6 Absolute Neuts (auto) 3.0 Absolute Lymphs (auto) 1.40 Nucleated RBC % 0 Sodium 135 L Potassium 4.2 Chloride 102 Carbon Dioxide 26.0 Anion Gap 7 BUN 42 H Creatinine 9.03 H* Estim Creat Clear Calc 4.69 Est GFR (MDRD) Af Amer 6 L Est GFR (MDRD) Non-Af 5 L BUN/Creatinine Ratio 4.7 L Glucose 133 H Calcium 9.1 Management Discussion w/another healthcare provider: Reception Clerk (Dr. Mills vascular, [facility] digital camera technician, [facility] EM Dr. Wei) Critical Care Time Critical Care Time: Yes Critical care time (excluding procedures): 30-74 minutes (36 min), Including time spent:, Discussing w/Patient &/or Family/Engineer, Discussing w/Consultants, Arranging Admission or Transfer and Performing Direct Patient Care at Bedside Discharge Plan Triage Chief Complaint: Lower Extremity Injury ED Provider: Fran Moore Dx/Rx/DC Orders Clinical Impression: Pseudoaneurysm of right femoral artery, Anemia, Chronic kidney disease, stage V requiring chronic dialysis, CAD, multiple vessel Prescriptions: No Action carvedilol [Coreg] 12.5 mg tablet 12.5 mg PO BID calcium acetate(phosphat bind) 667 mg capsule 2 cap PO TID cinacalcet 30 mg Tablet 30 mg PO DAILY multivitamin [Daily-Caron] Tablet 1 tab PO DAILY hydralazine 25 mg tablet 25 mg PO TID amlodipine 10 mg tablet 10 mg PO DAILY sevelamer carbonate 800 mg tablet 800 mg PO TID atorvastatin 80 mg tablet 80 mg PO QHS Qty: 90 1RF clopidogrel 75 mg tablet 75 mg PO DAILY Qty: 90 1RF Primary Care Provider: Prince Cummins Referrals: Prince Cummins, [Primary Care Provider] - Disposition Disposition: Acute Care Hospital Discharge Location: [facility]
[2023-02-06 12:06] LABS: Basophil# 0.03 X10^3/uL; Basophil% 0.6 % (0-1); Eosinophil# 0.21 X10^3/uL; Eosinophils% 3.9 % (0-5); Hematocrit 24.4 % (37-47); Hemoglobin 7.9 g/dL (12.0-15.0); Lymphocyte % 26.1 % (19-41); Mean Corp Hgb Conc 32.4 g/dL (32-36); Mean Corpuscular Volume 92.8 fL (81-99); Monocyte# 0.66 X10^3/uL; Monocyte% 12.3 % (0-10); NRBC Flagged by Analyzer 0 % (0-5); Neutrophil # 2.97 X10^3/uL (2.7-7.7); Neutrophil % 55.4 % (47-70); Platelet Count 202 K/mm3 (150-450); RBC Distribution Width CV 13.5 % (11.6-14.6); RBC Distribution Width SD 45.6 fl (35.1-43.9); Red Blood Count 2.63 M/mm3 (4.2-5.4); White Blood Count 5.4 K/mm3 (4.4-11.0)
[2023-02-06] MEDS: Ondansetron 4 MG/2 ML Vial IV ×2 (12:17→15:35)
[2023-02-06] MEDS: Morphine 4 MG/ML Syringe IV ×2 (12:18→14:23)
[2023-02-06 12:19] VITALS: BP 102/81; PULSE 70; RESP 18; O2SAT 100
[2023-02-06 12:23] LABS: Anion Gap 7 (5-15); BUN 42 mg/dL (7-18); BUN/Creat Ratio 4.7 RATIO (10-20); Calcium,Total 9.1 mg/dL (8.5-10.1); Chloride 102 mmol/L (98-107); Creatinine, Serum 9.03 mg/dL (0.55-1.02); EST Glomerular Filtration Rate 5 mL/min (>60); Est Glom Filt Rate - Afr Amer 6 mL/min (>60); Estimated Creatinine Clearance 4.69 ml/min; Glucose 133 mg/dL (74-106); Potassium 4.2 mmol/L (3.5-5.1); Sodium Level 135 mmol/L (136-145)
[2023-02-06 13:27] VITALS: BP 115/45; PULSE 76; RESP 14; O2SAT 96
--- NOTE | 2023-02-06 13:28 | ED.RN ---
system support technician for pedal pulse
--- NOTE | 2023-02-06 13:32 | NURSING ---
CALLED [facility] FOR [facility]
--- NOTE | 2023-02-06 14:09 | NURSING ---
ACCEPTED AT [facility] TO [phone]
[2023-02-06 14:14] VITALS: BP 109/53; PULSE 69; RESP 18; O2SAT 98
--- NOTE | 2023-02-06 14:16 | ED.RN ---
spoke with efrem Emerson for pt update. also left message for granddaughter.
--- NOTE | 2023-02-06 14:17 | NURSING ---
called squad, eta is 1 hour
--- NOTE | 2023-02-06 14:35 | ED.RN ---
called [facility] to inform of pt's transfer
== END 2023-02-06 15:36 | disposition short-term general hospital (02) ==
PROVIDERS: Emergency Provider Emergency Medicine; PCP Family Medicine; Visit Provider Emergency Medicine
DX: I72.4 Aneurysm of artery of lower extremity (principal); N18.5 Chronic kidney disease, stage 5; I25.10 Atherosclerotic heart disease of native coronary artery without angina pectoris; D64.9 Anemia, unspecified; Z99.81 Dependence on supplemental oxygen; Z86.73 Personal history of transient ischemic attack (TIA), and cerebral infarction without residual deficits; Z79.899 Other long term (current) drug therapy; Z79.01 Long term (current) use of anticoagulants; Z87.891 Personal history of nicotine dependence
CPT/HCPCS: 80048; 85025; 93926; 96374; 96375; 96376; 99285; A4216; J2405

== ENCOUNTER 2023-02-24 09:58 | Inpatient (IN) | payer MEDICAID, SELFPAY ==
[2023-02-24] VITALS (26 sets, daily range): BP systolic 136–196; BP diastolic 54–118; PULSE 69–125; RESP 12–36; TEMP 36.1–36.4; O2SAT 4–100; BMI 28.5; BMI 29.7; BMI 29.9
--- NOTE | 2023-02-24 10:18 | ED.VIS.DYS ---
HPI History of Present Illness Chief Complaint: Shortness of Breath [facility] Medical History Acute and chronic respiratory failure with hypoxia Ambulates with cane Anemia Asthma Cardiac dysrhythmia, unspecified Chest pain Chronic kidney disease, stage V requiring chronic dialysis Diabetes Dialysis patient Easy bruising Edentulous ESRD (end stage renal disease) on dialysis Former smoker Gastric reflux GI bleed Hepatitis High cholesterol HTN (hypertension) Hypertension Hypertension Hyponatremia Kidney disease Leg cramps NSTEMI, initial episode of care On home oxygen therapy PONV (postoperative nausea and vomiting) Post-menopausal Rheumatoid arthritis Shortness of breath on exertion SOB (shortness of breath) Stroke Substance abuse Type II diabetes mellitus Wears glasses Home Medications carvedilol 12.5 mg tablet (Coreg) 12.5 mg PO BID HEART 11/28/20 [History Last Taken 02/23/23] calcium acetate(phosphat bind) 667 mg capsule 2 cap PO TID SUPPLEMENT 03/07/22 [History Last Taken 02/23/23] amlodipine 10 mg tablet 10 mg PO DAILY BLOOD PRESSURE 09/19/22 [History Last Taken 02/23/23] cinacalcet 30 mg tablet 30 mg PO DAILY DIALYSIS 09/19/22 [History Last Taken 02/23/23] hydralazine 25 mg tablet 25 mg PO TID BLOOD PRESSURE 09/19/22 [History Last Taken 02/23/23] multivitamin (Daily-Caron tablet) 1 tab PO DAILY HEALTH MAINTENANCE 09/19/22 [History Last Taken 02/23/23] sevelamer carbonate 800 mg tablet 800 mg PO TID DIALYSIS 01/28/23 [History Last Taken 02/23/23] atorvastatin 80 mg tablet 80 mg PO QHS CHOLESTEROL #90 tabs 02/04/23 [Rx Last Taken 02/23/23] clopidogrel 75 mg tablet 75 mg PO DAILY BLOOD THINNER #90 tabs 02/04/23 [Rx Last Taken 02/23/23] aspirin 81 mg tablet,delayed release 81 mg PO DAILY #90 tabs 02/18/23 [Rx Last Taken 02/23/23] lansoprazole 30 mg capsule,delayed release 30 mg PO DAILY GERD 02/24/23 [History Last Taken 02/23/23] Allergy/AdvReac Type Severity Reaction Status Date / Time ceftriaxone Allergy Severe Rash Verified 06/12/23 09:58 vancomycin Allergy Severe Rash Verified 02/24/23 09:58 Penicillins Allergy Swelling Verified 02/24/23 09:58 oxycodone HCl [From Percocet] AdvReac Intermediate Itching Verified 02/24/23 09:58 Family History Mother Hypertension Emphysema/COPD Sister Hypertension Surgical History H/O: hysterectomy History of arteriovenostomy for renal dialysis History of eye surgery History of surgery knee scope S/P arteriovenous (AV) fistula creation Social History Smoking Status: Former smoker alcohol intake: current details: 1 per week substance use type: does not use what type of physical activity do you participate in: none EXAM Physical Exam Const Vital Signs: 02/24/23 09:59 02/24/23 10:03 02/24/23 10:03 Temperature 97.6 F L 97.6 F L Temperature Source Temporal Temporal Pulse Rate 108 H 106 H 107 H Respiratory Rate 24 H 30 H 28 H Respiratory Effort Respiratory Depth Respiratory Pattern Blood Pressure 196/87 H 196/87 H Blood Pressure Mean 123 123 Pulse Ox 100 98 98 Oxygen Delivery Method Non-Rebreather Nasal Cannula Nasal Cannula Oxygen Flow Rate (L/min) 8 4 4 02/24/23 10:03 02/24/23 10:32 02/24/23 10:30 Temperature Temperature Source Pulse Rate 99 Respiratory Rate 33 H Respiratory Effort Short of Breath Pursed Lip Respiratory Depth Shallow Respiratory Pattern Tachypnea Blood Pressure Blood Pressure Mean Pulse Ox Oxygen Delivery Method Nasal Cannula Nasal Cannula Oxygen Flow Rate (L/min) 4 02/24/23 12:48 Temperature Temperature Source Pulse Rate 92 Respiratory Rate 16 Respiratory Effort Respiratory Depth Respiratory Pattern Blood Pressure 168/72 H Blood Pressure Mean 104 Pulse Ox 98 Oxygen Delivery Method Oxygen Flow Rate (L/min) MDM MDM MDM Narrative Medical decision making narrative: HISTORY OF PRESENT ILLNESS: 67-year-old female notes 1 day of shortness of breath. Notes dyspnea on exertion. Denies lower extremity edema. States he gets dialysis Friday, and Friday. States she received a full treatment on Friday and scheduled to go to dialysis tomorrow. Denies any bleeding diathesis. The patient denies recent surgery in the last 4 weeks or immobilization in the last 3 days, denies previous diagnosis of DVT or PE, hemoptysis, unilateral leg swelling or malignancy with treatment the last 6 months. No estrogen use noted. Denies any chest pain. REVIEW OF SYSTEMS: Pertinent positives: Shortness of breath Pertinent negatives: Syncope, lower extremity edema, missed dialysis PHYSICAL EXAM: Nursing triage notes reviewed, Vital signs reviewed Constitutional: please see [facility] HENT: MMM Eyes: Pupils equal round and reactive to light, Extraocular muscles intact Neck: No stridor, no JVD, full neck ROM Lungs: Prolonged expiratory phase, bilateral wheezing, no obvious rales, patient was speaking in full sentences, no obvious respiratory distress Heart: Regular rate and rhythm, No murmurs, No rubs and No gallops, 2+ distal pulses (radial, femoral, posterior tibial) in all extremities Abdomen: Soft, there is no tenderness, rigidity, rebound or guarding, no obvious peritoneal signs, no palpable pulsatile abdominal masses, no auscultated abdominal bruit : No CVAT Extremities: No edema Neuro: No focal neurological deficits, cranial nerves II through XII intact, 5/5 strength in all extremities. Intact sensation to light touch in all extremities, 2+ reflexes bilateral patella tendons. Normal gait. No ataxia. Skin: No rash or lesions noted MEDICAL DECISION MAKING: Chief Complaint: Shortness of breath External records reviewed: Echocardiogram from January 2023 shows ejection fraction 50 to 55% Factors affecting care: Bronchitis, COPD, hypertension, asthma, CVA Social determinants of health: Former smoker History obtained from others: EMS Consults: Internal medicine ALL IMAGES (IF OBTAINED) HAVE BEEN PERSONALLY REVIEWED AND INTERPRETED BY MYSELF. [facility] Narrative: Patient was initially hypertensive, tachycardic tachypneic on 4 L nasal cannula she had bilateral wheezes, prolonged expiratory phase but she was speaking in full sentence and had no conversational dyspnea. Medication for BiPAP at this time. I considered the following differential diagnosis: COPD exacerbation, volume overload, ACS, anemia, arrhythmia, myocardial ischemia I obtained a broad lab and imaging work-up to further elucidate the etiology the patient complaints. Initial troponin was elevated, EKG without evidence of STEMI. Labs without evidence of significant anemia. No evidence of COVID or flu. Chest x-ray showed signs of volume overload. I considered pneumonia however thought this was less likely given lack of cough, fever and no leukocytosis. I felt chest x-ray abnormalities were likely secondary to volume overload rather than pneumonia. There is no evidence of significant metabolic acidosis. Renal function at baseline. Patient was treated with breathing treatments and steroids. Presentation likely secondary to COPD exacerbation as well as mild volume overload from end-stage renal disease. Blood pressure, respiratory rate and heart rate improved. Given need for additional oxygen, initial tachypnea and hypertension I admitted the patient to medical service for serial cardiac biomarkers, breathing treatments, pulmonary toileting, further evaluation. Discussed with Dr. Mendez who agreed to admit the patient. The patient and/or family, caregivers express understanding. The patient and/or family, caregivers agrees with the plan. Total critical care time today provided was at least 0 minutes. This excludes separately billable procedures. Critical care time (if documented) is secondary to the patient having high probability of clinically significant/life threatening deterioration in the patient's condition which required my urgent intervention. Shared decision making: I will have a discussion with the patient and or visitors regarding risk/benefits of further testing or admission. They will be made aware of of the risk/benefits inherent in this decision they will be given the opportunity to voice understanding. Lab Data Attestation: I reviewed the patient's lab results. Lab results narrative: EKG with normal sinus rhythm, normal axis, normal intervals, no STEMI CBC with no leukocytosis, mild stable anemia, no thrombocytopenia BMP without significant electrolyte abnormalities, no anion gap to suggest endorgan hypoperfusion, end-stage renal disease as improved from baseline Troponin elevated consistent with likely demand ischemia secondary end-stage renal disease, downtrending from prior studies Labs: Laboratory Results - last 24 hr 02/24/23 02/24/23 10:15 10:15 WBC 8.7 RBC 3.10 L Hgb 9.0 L Hct 29.2 L MCV 94.2 MCH 29.0 MCHC 30.8 L RDW Std Deviation 47.2 H RDW Coeff of Dottie 13.8 Plt Count 318 MPV 9.3 Immature Gran % (Auto) 0.800 Neut % (Auto) 72.7 H Lymph % (Auto) 15.8 L [place] % (Auto) 7.7 Eos % (Auto) 2.4 Baso % (Auto) 0.6 Absolute Neuts (auto) 6.4 Absolute Lymphs (auto) 1.38 Nucleated RBC % 0 Sodium 136 Potassium 4.1 Chloride 99 Carbon Dioxide 31.0 Anion Gap 6 BUN 38 H Creatinine 7.35 H Estim Creat Clear Calc 5.76 Est GFR (MDRD) Af Amer 7 L Est GFR (MDRD) Non-Af 6 L BUN/Creatinine Ratio 5.2 L Glucose 124 H Calcium 10.0 Troponin I High Sens 266 H* ABG Data ABG results: ABG 02/24/23 10:38 Specimen Type CARI VBG pH 7.44 H VBG pO2 28 VBG HCO3 31 H VBG Total CO2 33 VBG O2 Sat (Calc) 53 VBG Base Excess 7 H POC Mix VBG pCO2 Pt Tmp 46.6 Radiography Chest X-Ray - ED: Read by ED Physician Diagnostic Testing: Clinical Impression(s) from Imaging Studies Chest X-Ray 02/24/23 10:27 IMPRESSION: Findings in keeping with CHF with right basilar atelectasis. Electronically Signed: Tacho Russell MD at 11:49 EDT , Chest x-ray read and interpreted personally by myself. Shows evidence of vascular congestion, volume overload questionable right lower lobe infiltrate Discharge Plan Triage Chief Complaint: Shortness of Breath ED Provider: Mina Reynolds Dx/Rx/DC Orders Prescriptions: No Action carvedilol [Coreg] 12.5 mg tablet 12.5 mg PO BID calcium acetate(phosphat bind) 667 mg capsule 2 cap PO TID cinacalcet 30 mg Tablet 30 mg PO DAILY multivitamin [Daily-Caron] Tablet 1 tab PO DAILY hydralazine 25 mg tablet 25 mg PO TID amlodipine 10 mg tablet 10 mg PO DAILY sevelamer carbonate 800 mg tablet 800 mg PO TID lansoprazole 30 mg capsule,delayed release(DR/EC) 30 mg PO DAILY Label Comments: TAKE 1 CAPSULE BY MOUTH ONCE A DAY atorvastatin 80 mg tablet 80 mg PO QHS Qty: 90 1RF clopidogrel 75 mg tablet 75 mg PO DAILY Qty: 90 1RF aspirin 81 mg tablet,delayed release (DR/EC) 81 mg PO DAILY Qty: 90 0RF Primary Care Provider: Prince Cummins Referrals: Prince Cummins, DO [Primary Care Provider] -
--- NOTE | 2023-02-24 10:27 | RAD_ITS ---
STUDY: X-RAY CHEST REASON FOR EXAM: Female, 67 years old. SOB TECHNIQUE: AP and lateral views of the chest. COMPARISON: Comparison is made with prior study of January 28, 2023. FINDINGS: A right-sided double catheter is seen with the tip at the junction of the superior vena cava and right atrium. EKG electrodes are seen. There is evidence of vascular congestion and CHF. Superimposed right basilar atelectasis. There is no demonstrated pleural abnormality. There is mild cardiac enlargement. Normal mediastinum and gaye. Normal visualized pulmonary arteries. There is atherosclerotic calcification of the aortic arch with tortuosity. There are diffuse degenerative changes of the visualized thoracic spine. Normal visualized ribs, clavicles, and shoulders. There is no demonstrated abnormality of the visualized soft tissue structures of the upper abdomen. RAD/Chest PA and Lateral IMPRESSION: Findings in keeping with CHF with right basilar atelectasis. Electronically Signed: Tacho Russell MD at 11:49 EDT ,
--- NOTE | 2023-02-24 10:27 | EKG12_ITS ---
Test Reason : SOB Blood Pressure : / mmHG Vent. Rate : 099 BPM Atrial Rate : 099 BPM P-R Int : 158 ms QRS Dur : 076 ms QT Int : 372 ms P-R-T Axes : 063 088 099 degrees QTc Int : 477 ms Normal sinus rhythm Septal infarct , age undetermined ST & T wave abnormality, consider lateral ischemia Abnormal ECG Confirmed by ANTONIETA PIZARRO, MEÑO ([id number]), newspaper editor ADRIÁN BURRIS ([id number]) on 02/26/2023 11:24:15 AM Referred By: RYLEY Confirmed By:MEÑO FUNG MD
[2023-02-24] MEDS: Ipratropium/Albuterol Sulfate 3 ML AMPUL.NEB INHALATION ×2 (10:30→19:23)
[2023-02-24 10:42] LABS: Blood Gas Specimen Type VEN; VBG BASE EXCESS 7 mmol/L (-1.0-3.5); VBG Bicarbonate 31 mmol/L (22-26); VBG PO2 28 mmHg (25-40); VBG SO2 53 % (50-70); VBG TCO2 33 mmol/L (23-33); VBG pCO2 46.6 mmHg (41-51); VBG pH 7.44 (7.32-7.42)
[2023-02-24 10:47] LABS: Absolute Lymphocyte Count 1.38 X10^3/uL (0.83-4.51); Absolute Neutrophil Count 6.4 X10^3/uL (2.0-7.7); Basophil# 0.05 X10^3/uL; Basophil% 0.6 % (0-1); Eosinophil# 0.21 X10^3/uL; Eosinophils% 2.4 % (0-5); Hematocrit 29.2 % (37-47); Lymphocyte # 1.38 X10^3/ul (0.83-4.51); Lymphocyte % 15.8 % (19-41); Mean Corp Hgb Conc 30.8 g/dL (32-36); Mean Corpuscular Volume 94.2 fL (81-99); Mean Platelet Vol. 9.3 fl (6.2-12.0); Monocyte# 0.67 X10^3/uL; Monocyte% 7.7 % (0-10); NRBC Flagged by Analyzer 0 % (0-5); Neutrophil # 6.36 X10^3/uL (2.7-7.7); Neutrophil % 72.7 % (47-70); Platelet Count 318 K/mm3 (150-450); RBC Distribution Width CV 13.8 % (11.6-14.6); RBC Distribution Width SD 47.2 fl (35.1-43.9); White Blood Count 8.7 K/mm3 (4.4-11.0)
[2023-02-24] MEDS: MethylPREDNISolone 125 MG/2 ML Vial IV (10:57)
[2023-02-24 11:04] LABS: Anion Gap 6 (5-15); BUN 38 mg/dL (7-18); BUN/Creat Ratio 5.2 RATIO (10-20); Chloride 99 mmol/L (98-107); Creatinine, Serum 7.35 mg/dL (0.55-1.02); EST Glomerular Filtration Rate 6 mL/min (>60); Est Glom Filt Rate - Afr Amer 7 mL/min (>60); Estimated Creatinine Clearance 5.76 ml/min; Glucose 124 mg/dL (74-106); Potassium 4.1 mmol/L (3.5-5.1); Sodium Level 136 mmol/L (136-145); Troponin-I HS 266 pg/mL (3.0-54.0)
--- NOTE | 2023-02-24 14:56 | NURSING ---
128 [address]LEVICKIE COPD EXAC, ESRD
--- NOTE | 2023-02-24 17:46 | PCM.HP.STD ---
[facility] - General General Date of Admission: 02/24/23 Date of Service: 02/24/23 Chief Complaint: Shortness of breath and exertional dyspnea of 2 days duration HPI Narrative NATALI KINSEY, is a 67 F with a history of end-stage renal disease on hemodialysis. Recently diagnosed with multivessel coronary artery disease but was determined not to be surgical candidate for revascularization. Presents today with 2 days history of shortness of breath and exertional dyspnea and easy fatigability. No swelling of the lower extremities. Complains of orthopnea as well. Did not report any chest pain or wheezing. [facility] Medical History Acute and chronic respiratory failure with hypoxia Ambulates with cane Anemia Asthma Cardiac dysrhythmia, unspecified Chest pain Chronic kidney disease, stage V requiring chronic dialysis Chronic progressive renal failure Diabetes Dialysis patient Easy bruising Edentulous End-stage renal disease on hemodialysis ESRD (end stage renal disease) on dialysis Former smoker Gastric reflux GI bleed Hepatitis High cholesterol History of hypertension Hypertension Hypertension Hyponatremia Kidney disease Leg cramps NSTEMI, initial episode of care On home oxygen therapy PONV (postoperative nausea and vomiting) Post-menopausal Rheumatoid arthritis Shortness of breath on exertion SOB (shortness of breath) Stroke Substance abuse TIA (transient ischemic attack) Type II diabetes mellitus Wears glasses Home Medications carvedilol 12.5 mg tablet (Coreg) 12.5 mg PO BID HEART 11/28/20 [History Last Taken 02/23/23] calcium acetate(phosphat bind) 667 mg capsule 2 cap PO TID SUPPLEMENT 03/07/22 [History Last Taken 02/23/23] amlodipine 10 mg tablet 10 mg PO DAILY BLOOD PRESSURE 09/19/22 [History Last Taken 02/23/23] cinacalcet 30 mg tablet 30 mg PO DAILY DIALYSIS 09/19/22 [History Last Taken 02/23/23] hydralazine 25 mg tablet 25 mg PO TID BLOOD PRESSURE 09/19/22 [History Last Taken 02/23/23] multivitamin (Daily-Caron tablet) 1 tab PO DAILY HEALTH MAINTENANCE 09/19/22 [History Last Taken 02/23/23] sevelamer carbonate 800 mg tablet 800 mg PO TID DIALYSIS 01/28/23 [History Last Taken 02/23/23] atorvastatin 80 mg tablet 80 mg PO QHS CHOLESTEROL #90 tabs 02/04/23 [Rx Last Taken 02/23/23] clopidogrel 75 mg tablet 75 mg PO DAILY BLOOD THINNER #90 tabs 02/04/23 [Rx Last Taken 02/23/23] aspirin 81 mg tablet,delayed release 81 mg PO DAILY #90 tabs 02/18/23 [Rx Last Taken 02/23/23] lansoprazole 30 mg capsule,delayed release 30 mg PO DAILY GERD 02/24/23 [History Last Taken 02/23/23] Allergy/AdvReac Type Severity Reaction Status Date / Time ceftriaxone Allergy Severe Rash Verified 02/24/23 09:58 vancomycin Allergy Severe Rash Verified 02/24/23 09:58 Penicillins Allergy Swelling Verified 02/24/23 09:58 oxycodone HCl [From Percocet] AdvReac Intermediate Itching Verified 02/24/23 09:58 Family History Mother Hypertension Emphysema/COPD Sister Hypertension Surgical History H/O: hysterectomy History of arteriovenostomy for renal dialysis History of eye surgery History of surgery knee scope S/P arteriovenous (AV) fistula creation Social History Smoking Status: Former smoker alcohol intake: current details: 1 per week substance use type: does not use what type of physical activity do you participate in: none ROS ROS Narrative Does not report any chest pain abdominal pain or nausea vomiting. No lower extremity swelling. All other systems reviewed and essentially negative as above in the body of the history. Vital Signs Vital Signs Vital Signs: 02/24/23 09:59 02/24/23 10:03 02/24/23 10:03 Temperature 36.4 C L 36.4 C L Temperature Source Temporal Temporal Pulse Rate 108 H 106 H 107 H Respiratory Rate 24 H 30 H 28 H Respiratory Effort Respiratory Depth Respiratory Pattern Blood Pressure 196/87 H 196/87 H Blood Pressure Mean 123 123 Blood Pressure Source Blood Pressure Position Blood Pressure Location Pulse Ox 100 98 98 Oxygen Delivery Method Non-Rebreather Nasal Cannula Nasal Cannula Oxygen Flow Rate (L/min) 8 4 4 02/24/23 10:03 02/24/23 10:32 02/24/23 10:30 Temperature Temperature Source Pulse Rate 99 Respiratory Rate 33 H Respiratory Effort Short of Breath Pursed Lip Respiratory Depth Shallow Respiratory Pattern Tachypnea Blood Pressure Blood Pressure Mean Blood Pressure Source Blood Pressure Position Blood Pressure Location Pulse Ox Oxygen Delivery Method Nasal Cannula Nasal Cannula Oxygen Flow Rate (L/min) 4 02/24/23 12:48 02/24/23 14:48 02/24/23 15:25 Temperature 36.2 C L Temperature Source Temporal Pulse Rate 92 108 H 94 Respiratory Rate 16 18 14 Respiratory Effort Respiratory Depth Respiratory Pattern Blood Pressure 168/72 H 136/79 H 171/54 H Blood Pressure Mean 104 98 93 Blood Pressure Source Blood Pressure Position Blood Pressure Location Pulse Ox 98 98 99 Oxygen Delivery Method Nasal Cannula Nasal Cannula Oxygen Flow Rate (L/min) 4 02/24/23 16:50 02/24/23 17:05 02/24/23 17:07 Temperature 36.1 C L Temperature Source Temporal Pulse Rate 125 H Respiratory Rate 24 H 32 H Respiratory Effort Respiratory Depth Respiratory Pattern Blood Pressure 175/118 H Blood Pressure Mean 137 Blood Pressure Source Monitor Blood Pressure Position Semi-Fowlers Blood Pressure Location Right Arm Pulse Ox 96 85 92 Oxygen Delivery Method Nasal Cannula Nasal Cannula Nasal Cannula Oxygen Flow Rate (L/min) 5 5 10 Weight Weight: 71.4 kg Body Mass Index (BMI) 29.7 Physical Exam Narrative General exam. Elderly woman, acutely ill-appearing, chronically ill-appearing, anxious appearing, severely dyspneic and labored breathing and respiratory distress. No wheezing HEENT. Oral mucosa slightly dry Neck. Neck is supple, jugular venous distention 3+ Lungs. Diminished bilaterally especially in the bases, fine crackles in the mid and lower zones bilaterally. No wheezing heard. Heart. First and second heart sounds heard as well as third and fourth heart sounds with some summation gallop rhythm. Abdomen. Full moves respiration Extremities. No pedal edema Skin. Dry skin. 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 Conscious and alert and oriented x3. Restless Results Lab / Micro Data Result Diagrams: 02/24/23 10:15 02/24/23 10:15 Labs: Laboratory Results - last 24 hr 02/24/23 10:15: WBC 8.7, RBC 3.10 L, Hgb 9.0 L, Hct 29.2 L, MCV 94.2, MCH 29.0, MCHC 30.8 L, RDW Std Deviation 47.2 H, RDW Coeff of Dottie 13.8, Plt Count 318, MPV 9.3, Immature Gran % (Auto) 0.800, Neut % (Auto) 72.7 H, Lymph % (Auto) 15.8 L, [place] % (Auto) 7.7, Eos % (Auto) 2.4, Baso % (Auto) 0.6, Absolute Neuts (auto) 6.4, Absolute Lymphs (auto) 1.38, Nucleated RBC % 0 02/24/23 10:15: Sodium 136, Potassium 4.1, Chloride 99, Carbon Dioxide 31.0, Anion Gap 6, BUN 38 H, Creatinine 7.35 H, Estim Creat Clear Calc 5.76, Est GFR (MDRD) Af Amer 7 L, Est GFR (MDRD) Non-Af 6 L, BUN/Creatinine Ratio 5.2 L, Glucose 124 H, Calcium 10.0, Troponin I High Sens 266 H* Micro: Microbiology 02/24/23 10:15 Nasal Secretion SARS-CoV-2 & FLU Antigen (Rapid) - Final ABG Data ABG results: ABG 02/24/23 10:38 Specimen Type CARI VBG pH 7.44 H VBG pO2 28 VBG HCO3 31 H VBG Total CO2 33 VBG O2 Sat (Calc) 53 VBG Base Excess 7 H POC Mix VBG pCO2 Pt Tmp 46.6 Radiology Impression Chest X-Ray 02/24/23 10:27 IMPRESSION: Findings in keeping with CHF with right basilar atelectasis. Electronically Signed: Tacho Russell MD at 11:49 EDT , Personally viewed x-ray, interstitial infiltrates and plethora in the mid and lower zones bilaterally. Assessment & Plan Assessment/Plan (1) Acute respiratory failure with hypoxia: PLAN: Plan 1. Acute hypoxic respiratory failure. Suspect secondary to pulmonary edema from CHF exacerbation and COPD/emphysema. Blood gases (VBG) done. Not showing any hypercapnia. We will start patient on noninvasive positive pressure ventilation with CPAP or BiPAP. Admitted intensive care unit monitor closely. Consult pulmonology/windows application packager. Will check VBG after 1 hour on NIPPV. 2. Suspect acute pulmonary edema secondary to acute on chronic diastolic congestive heart failure secondary to ischemic heart disease/hypertensive heart disease. CPAP as above and consulted nephrology to assist with and help facilitate hemodialysis for fluid management. Discussed with nephrology and will likely need CRRT in the interim tonight and then dialysis tomorrow. Afterload reduction with adequate blood pressure control. 3. Coronary artery disease. Recent left heart catheterization showing triple-vessel disease. Was transferred to [facility] a few weeks ago however per patient, was deemed not to be surgical candidate and is just being treated with optimal medical management. We will continue with high intensity statin, aspirin and Plavix. Consider cardiology consultation. 4. Possible COPD chest emphysema. Supplemental oxygen. Scheduled breathing treatments every 6 hours. Charges/Coding Visit Charges Inpatient E&M: 71117 Init Hosp L3
--- NOTE | 2023-02-24 17:53 | NURSING ---
This RN in to admit pt. VS obtained. Noted pt to be very restless, anxious, tachypneic, and tachycardic. Pt stating over and over I can't breathe. Pt dislodged IV while trying to get into a comfortable position to breathe better. Fan provided for air flow. Notified Dr Mendez of pt condition, per Dr Mendez, pt was to be in ICU not PCU. Kurtis charge poster called report to Addie COLLECTIONS AGENT. This RN called William RT to come to bedside to place pt on CPAP. Pt placed on CPAP at 1735, VS obtained, transferred to ICU.
[2023-02-24 18:36] LABS: Bedside Glucose 260 mg/dL (74-106)
[2023-02-24] MEDS: PUREFLOW B SOLUTION 4K 5,000 ML BAG 9 BAG PF (18:46)
[2023-02-24 18:57] LABS: Albumin, Serum 2.6 g/dL (3.2-5.0); BUN 38 mg/dL (7-18); BUN/Creat Ratio 5.3 RATIO (10-20); Calcium,Total 8.6 mg/dL (8.5-10.1); Chloride 103 mmol/L (98-107); Creatinine, Serum 7.22 mg/dL (0.55-1.02); EST Glomerular Filtration Rate 6 mL/min (>60); Est Glom Filt Rate - Afr Amer 7 mL/min (>60); Estimated Creatinine Clearance 5.86 ml/min; Glucose 254 mg/dL (74-106); Magnesium 2.1 mg/dL (1.6-2.6); Phosphorus 5.9 mg/dL (2.5-4.9); Potassium 4.9 mmol/L (3.5-5.1); Sodium Level 136 mmol/L (136-145)
[2023-02-24] MEDS: Heparin Injection (Vial) 5,000 UNIT/ML VIAL 5000 UNIT SC (20:54)
[2023-02-24] MEDS: SEVELAMER CARBONATE 800 MG TABLET PO (20:54)
[2023-02-24] MEDS: Atorvastatin Calcium 80 MG Tablet PO (20:55)
[2023-02-24] MEDS: amLODIPine 10 MG Tablet PO (20:55)
[2023-02-24] MEDS: Carvedilol 12.5 MG Tablet PO (20:55)
[2023-02-24] MEDS: Aspirin E.C. 81 MG Tablet PO (20:55)
[2023-02-24] MEDS: 0.9% Saline Lock 10 ML Syringe IV (20:56)
[2023-02-25] VITALS (36 sets, daily range): BP systolic 118–176; BP diastolic 42–93; PULSE 67–102; RESP 12–25; TEMP 36.6–37.3; O2SAT 91–100; BMI 29.3; BMI 28.9
[2023-02-25 00:28] LABS: Albumin, Serum 2.9 g/dL (3.2-5.0); BUN 38 mg/dL (7-18); BUN/Creat Ratio 5.8 RATIO (10-20); Calcium,Total 9.8 mg/dL (8.5-10.1); Chloride 102 mmol/L (98-107); Creatinine, Serum 6.57 mg/dL (0.55-1.02); EST Glomerular Filtration Rate 7 mL/min (>60); Est Glom Filt Rate - Afr Amer 8 mL/min (>60); Estimated Creatinine Clearance 6.44 ml/min; Glucose 161 mg/dL (74-106); Magnesium 2.3 mg/dL (1.6-2.6); Potassium 5.2 mmol/L (3.5-5.1); Sodium Level 137 mmol/L (136-145)
[2023-02-25] MEDS: Ipratropium/Albuterol Sulfate 3 ML AMPUL.NEB INHALATION ×4 (01:47→18:46)
[2023-02-25 04:36] LABS: Absolute Lymphocyte Count 0.69 X10^3/uL (0.83-4.51); Absolute Neutrophil Count 3.5 X10^3/uL (2.0-7.7); Basophil# 0.01 X10^3/uL; Basophil% 0.2 % (0-1); Hematocrit 28.7 % (37-47); Hemoglobin 8.1 g/dL (12.0-15.0); Lymphocyte # 0.69 X10^3/ul (0.83-4.51); Mean Corp Hgb Conc 28.2 g/dL (32-36); Mean Corpuscular Hgb 29.3 pg (27.0-32.0); Mean Platelet Vol. 8.9 fl (6.2-12.0); Monocyte# 0.43 X10^3/uL; Monocyte% 9.3 % (0-10); NRBC Flagged by Analyzer 0 % (0-5); Neutrophil # 3.46 X10^3/uL (2.7-7.7); Neutrophil % 75.1 % (47-70); Platelet Count 258 K/mm3 (150-450); RBC Distribution Width CV 14.1 % (11.6-14.6); RBC Distribution Width SD 52.6 fl (35.1-43.9); Red Blood Count 2.76 M/mm3 (4.2-5.4); White Blood Count 4.6 K/mm3 (4.4-11.0)
[2023-02-25 04:53] LABS: ALB/GLOB Ratio 0.5 RATIO (0.9-2.4); AST(SGOT) 67 U/L (15-37); Alanine Aminotransfer ALT/SGPT 42 U/L (13-56); Albumin, Serum 2.9 g/dL (3.2-5.0); Alkaline Phosphatase 82 U/L (45-117); Anion Gap 6 (5-15); BUN 35 mg/dL (7-18); BUN/Creat Ratio 6.3 RATIO (10-20); Calcium,Total 9.8 mg/dL (8.5-10.1); Chloride 103 mmol/L (98-107); Creatinine, Serum 5.56 mg/dL (0.55-1.02); EST Glomerular Filtration Rate 8 mL/min (>60); Est Glom Filt Rate - Afr Amer 10 mL/min (>60); Estimated Creatinine Clearance 7.61 ml/min; Globulin 5.6 g/dL (2.2-4.2); Glucose 129 mg/dL (74-106); Magnesium 2.2 mg/dL (1.6-2.6); Phosphorus 3.7 mg/dL (2.5-4.9); Potassium 4.9 mmol/L (3.5-5.1); Protein, Total 8.5 g/dL (6.4-8.2); Sodium Level 137 mmol/L (136-145)
[2023-02-25] MEDS: Heparin Injection (Vial) 5,000 UNIT/ML VIAL 5000 UNIT SC (05:58)
[2023-02-25] MEDS: PUREFLOW B SOLUTION 4K 5,000 ML BAG 9 BAG PF (05:58)
[2023-02-25] MEDS: hydrALAZINE 25 MG Tablet PO ×2 (05:58→20:03)
[2023-02-25] MEDS: Acetaminophen 325 MG Tablet 650 MG PO ×2 (06:22→19:59)
--- NOTE | 2023-02-25 06:53 | PCM.PN.HOSP ---
Reason for Visit Reason for Visit: Diagnoses Acute respiratory failure with hypoxia (02/24/23) Subjective Subjective Feeling better. Breathing better. Objective Data Objective Data Vital Signs: Vital Signs Temp Pulse Resp BP Pulse Ox O2 Del Method O2 Flow Rate 36.6 C 102 H 18 160/86 H 100 Nasal Cannula 6 02/25/23 00:00 02/25/23 06:00 02/25/23 06:00 02/25/23 06:00 02/25/23 06:00 02/25/23 06:00 02/25/23 06:00 FiO2 25 02/25/23 04:50 Oxygen Flow Rate (L/min) 6 Oxygen Delivery Method Nasal Cannula Weight: 70.5 kg Body Mass Index (BMI) 29.3 Intake & Output: Intake and Output for Last 24 Hours 02/23/23 02/24/23 02/25/23 23:59 23:59 23:59 Intake Total 200 / 200 Balance 200 / 200 Lab / Micro Data Result Diagrams: 02/25/23 04:20 02/25/23 10:30 Labs: Laboratory Results - last 24 hr 02/24/23 10:15: WBC 8.7, RBC 3.10 L, Hgb 9.0 L, Hct 29.2 L, MCV 94.2, MCH 29.0, MCHC 30.8 L, RDW Std Deviation 47.2 H, RDW Coeff of Dottie 13.8, Plt Count 318, MPV 9.3, Immature Gran % (Auto) 0.800, Neut % (Auto) 72.7 H, Lymph % (Auto) 15.8 L, [place] % (Auto) 7.7, Eos % (Auto) 2.4, Baso % (Auto) 0.6, Absolute Neuts (auto) 6.4, Absolute Lymphs (auto) 1.38, Nucleated RBC % 0 02/24/23 10:15: Sodium 136, Potassium 4.1, Chloride 99, Carbon Dioxide 31.0, Anion Gap 6, BUN 38 H, Creatinine 7.35 H, Estim Creat Clear Calc 5.76, Est GFR (MDRD) Af Amer 7 L, Est GFR (MDRD) Non-Af 6 L, BUN/Creatinine Ratio 5.2 L, Glucose 124 H, Calcium 10.0, Troponin I High Sens 266 H* 02/24/23 17:46: POC Glucose 260 H 02/24/23 18:15: Sodium 136, Potassium 4.9, Chloride 103, Carbon Dioxide 25.0, BUN 38 H, Creatinine 7.22 H, Estim Creat Clear Calc 5.86, Est GFR (MDRD) Af Amer 7 L, Est GFR (MDRD) Non-Af 6 L, BUN/Creatinine Ratio 5.3 L, Glucose 254 H, Calcium 8.6, Phosphorus 5.9 H, Magnesium 2.1, Albumin 2.6 L 02/25/23 00:10: Sodium 137, Potassium 5.2 H, Chloride 102, Carbon Dioxide 28.0, BUN 38 H, Creatinine 6.57 H, Estim Creat Clear Calc 6.44, Est GFR (MDRD) Af Amer 8 L, Est GFR (MDRD) Non-Af 7 L, BUN/Creatinine Ratio 5.8 L, Glucose 161 H, Calcium 9.8, Phosphorus 4.0, Magnesium 2.3, Albumin 2.9 L 02/25/23 04:20: WBC 4.6, RBC 2.76 L, Hgb 8.1 L, Hct 28.7 L, MCV 104.0 H D, MCH 29.3, MCHC 28.2 L D, RDW Std Deviation 52.6 H, RDW Coeff of Dottie 14.1, Plt Count 258, MPV 8.9, Immature Gran % (Auto) 0.400, Neut % (Auto) 75.1 H, Lymph % (Auto) 15.0 L, [place] % (Auto) 9.3, Eos % (Auto) 0.0, Baso % (Auto) 0.2, Absolute Neuts (auto) 3.5, Absolute Lymphs (auto) 0.69 L, Nucleated RBC % 0 02/25/23 04:20: Sodium 137, Potassium 4.9, Chloride 103, Carbon Dioxide 28.0, Anion Gap 6, BUN 35 H, Creatinine 5.56 H, Estim Creat Clear Calc 7.61, Est GFR (MDRD) Af Amer 10 L, Est GFR (MDRD) Non-Af 8 L, BUN/Creatinine Ratio 6.3 L, Glucose 129 H, Calcium 9.8, Phosphorus 3.7, Magnesium 2.2, Total Bilirubin 0.50, AST 67 H, ALT 42, Alkaline Phosphatase 82, Total Protein 8.5 H, Albumin 2.9 L, Globulin 5.6 H, Albumin/Globulin Ratio 0.5 L Micro: Microbiology 02/24/23 10:15 Nasal Secretion SARS-CoV-2 & FLU Antigen (Rapid) - Final ABG Data ABG results: ABG 02/24/23 10:38 Specimen Type CARI VBG pH 7.44 H VBG pO2 28 VBG HCO3 31 H VBG Total CO2 33 VBG O2 Sat (Calc) 53 VBG Base Excess 7 H POC Mix VBG pCO2 Pt Tmp 46.6 Radiography Diagnostic Testing: Radiology Impression Chest X-Ray 02/24/23 10:27 IMPRESSION: Findings in keeping with CHF with right basilar atelectasis. Electronically Signed: Tacho Russell MD at 11:49 EDT , Physical Exam Const alert and no apparent distress Constitutional Narrative: seen on CRRT. HEENT head/scalp atraumatic and moist oral mucous membranes Eyes PERRL Assessment & Plan Assessment/Plan (1) Acute respiratory failure with hypoxia: PLAN: Admission pulse ox was 85% on 5 liters/m CXR personally reviewed and showed pulmonary vascularization and pleural effusions. Suspect secondary to pulmonary edema from CHF exacerbation Since weaned off BiPAP (2) (HFpEF) heart failure with preserved ejection fraction: QUALIFIERS: Heart failure chronicity: acute Qualified Code(s): I50.31 - Acute diastolic (congestive) heart failure PLAN: Suspect acute pulmonary edema secondary to acute on chronic diastolic congestive heart failure secondary to ischemic heart disease/hypertensive heart disease. Nephrology to assist with and help facilitate hemodialysis for fluid management. Nephrology on consult for HD (3) NSTEMI, initial episode of care: PLAN: Known triple-vessel disease. Was transferred to [facility] a few weeks ago however per patient, was deemed not to be surgical candidate and is just being treated with optimal medical management. We will continue with high intensity statin, aspirin and Plavix. Recheck echo. Troponins jump from 266 to 3758. Start heparin gtt. Consult cardiology. PLAN: Plan Chronic conditions: Possible COPD chest emphysema. Supplemental oxygen. Scheduled breathing treatments every 6 hours. ESRD: nephrology on consult for HD HTN:on carvedilol, hydralazine GERD: continue PPI VTE prophylaxis: SQ heparin Charges/Coding Visit Charges Inpatient E&M: 67344 Subs Hosp L2
--- NOTE | 2023-02-25 07:04 | ECHOD_ITS ---
Reason For Study: CHF, ELEVATED TROP Procedure This was a 2D Doppler, Color Flow transthoracic echocardiogram. Myocardial strain analysis was performed in this exam to aid in the assessment of cardiac function. Technically difficult due to uncooperative patient. Patient scanned in supine position. Exam performed in department. Left Ventricle Normal LV size. The estimated ejection fraction is 55 %. No evidence for diastolic dysfunction. No regional wall motion abnormalities noted. Right Ventricle Normal RV size. Normal systolic function. Atria Normal left atrium. Normal right atrium. No doppler evidence for ASD. Mitral Valve There is no mitral valve stenosis. Moderate (2+) mitral valve insufficiency. Tricuspid Valve There is no tricuspid stenosis. Trivial tricuspid valve insufficiency. Pulmonary artery systolic pressure is 50 mmHg. Aortic Valve Trisinus/trileaflet aortic valve. There is no aortic stenosis. No aortic valve insufficiency. Pulmonic Valve There is no pulmonic valvular stenosis. No pulmonic valve insufficiency. Great Vessels Normal aortic root. Pericardium/Pleural No pericardial effusion. MMode/2D Measurements & Calculations LVIDd: 5.9 cm IVSd: 1.2 cm LAV(MOD-bp): 96.5 ml LVIDs: 4.9 cm LVPWd: 1.2 cm LAV(MOD-bp) Indexed: 56.9 ml/m2 FS: 17.2 % LAV(MOD-sp2): 78.2 ml LAV(MOD-sp4): 115.9 ml SV(MOD-sp4): 46.2 ml LVAd ap4: 34.9 cm2 LVAd ap2: 36.1 cm2 LVLd ap4: 8.3 cm LVLd ap2: 9.2 cm EDV(MOD-sp4): 125.8 ml EDV(MOD-sp2): 121.9 ml EDV(sp4-el): 124.2 ml EDV(sp2-el): 120.1 ml LVAs ap4: 25.9 cm2 LVAs ap2: 24.7 cm2 LVLs ap4: 7.4 cm LVLs ap2: 7.8 cm ESV(MOD-sp4): 79.6 ml ESV(MOD-sp2): 68.9 ml ESV(sp4-el): 77.5 ml ESV(sp2-el): 66.2 ml EF(MOD-sp4): 36.7 % EF(MOD-sp2): 43.5 % EF(sp4-el): 37.6 % SV(MOD-sp2): 53.0 ml SV(sp4-el): 46.7 ml LA A4 area: 29.2 cm2 LA dimension(2D): 3.7 cm RA A4 area: 15.5 cm2 Time Measurements MV dec time: 0.16 sec Doppler Measurements & Calculations MV E max migel: 126.4 cm/sec Lat Peak E' Migel: 8.3 cm/sec Med Peak E' Migel: 7.8 cm/sec MV A max migel: 70.3 cm/sec E/E' lat: 15.2 E/E' med: 16.2 MV E/A: 1.8 MV V2 max: 128.2 cm/sec MV dec slope: 798.5 cm/sec2 Ao V2 max: 128.3 cm/sec MV max P.6 mmHg Ao max P.6 mmHg MV V2 mean: 80.0 cm/sec Ao V2 mean: 85.8 cm/sec MV mean P.8 mmHg Ao mean P.4 mmHg MV V2 VTI: 38.6 cm Ao V2 VTI: 26.8 cm AV (velocity ratio): 0.75 LV V1 max: 102.6 cm/sec MR max migel: 614.4 cm/sec PA V2 max: 90.1 cm/sec LV V1 max P.2 mmHg MR max P.0 mmHg PA V2 mean: 63.0 cm/sec LV V1 mean P.4 mmHg MR mean migel: 472.9 cm/sec LV V1 mean: 73.3 cm/sec MR mean P.7 mmHg LV V1 VTI: 20.2 cm MR VTI: 234.3 cm TR max migel: 332.0 cm/sec TR max P.1 mmHg ECHO/Echo Complete Interpretation Summary The estimated ejection fraction is 55 %. No evidence for diastolic dysfunction. Moderate (2+) mitral valve insufficiency. Ordering Physician: Tommy Soto Referring Physician: Dru Cummins M.D. Performed By: Kia Muhammad RCS
[2023-02-25 07:45] LABS: Troponin-I HS 3758 pg/mL (3.0-54.0)
[2023-02-25] MEDS: Carvedilol 12.5 MG Tablet PO ×2 (08:40→16:36)
[2023-02-25] MEDS: Multivitamins,Therapeutic Tablet 1 TABLET PO (08:40)
[2023-02-25] MEDS: HEPARIN/D5w 25,000 UNITS 25,000 UNITS/250 ML IV.SOLN. 9 UNITS CONT INF (09:07)
[2023-02-25] MEDS: Heparin Injection (Vial) 5,000 UNIT/ML VIAL 4000 UNIT IV (09:08)
[2023-02-25 09:13] LABS: International Normalized Ratio 1.1; Prothrombin Time (Protime)PT. 13.7 SECONDS (11.7-14.9)
[2023-02-25 09:14] LABS: Partial Thromboplast Time 30.6 Seconds (24.1-36.2)
--- NOTE | 2023-02-25 10:12 | PCM.CONS.R ---
Documented by User: ART Espinoza 02/25/23 10:23 Assessment & Plan Assessment/Plan (1) Acute respiratory failure with hypoxia: (2) Elevated troponin: (3) Hypertension, accelerated: (4) CAD (coronary artery disease): PLAN: Plan This is a 67-year-old female with past medical history significant for ESRD on hemodialysis 3 times weekly (TTS schedule), history of coronary artery disease who was admitted to the hospital for further evaluation/treatment of acute hypoxic respiratory failure secondary to pulmonary edema from CHF exacerbation. Patient was initiated on CRRT last evening with fluid removal 150 mL/h. She is tolerating fluid removal with total of 1.7 L fluid removal so far today. We will transition patient to intermittent hemodialysis today and continue fluid removal as patient/blood pressure tolerates. Outpatient EDW had been 71 kg. Likely dry weight will be lowered by time of discharge. Patient is typically compliant with dialysis and usually does not have large fluid gains between sessions. Patient was hypertensive on admission and blood pressures have improved. Continue on amlodipine, carvedilol, hydralazine. -Patient has history of coronary artery disease, about 1 month ago patient was admitted to the hospital, found to have non-STEMI, she underwent left heart cath which showed multivessel disease involving LAD, RCA and circumflex, Echo showed Mildly dilated left ventricle, EF 50 to 55%, moderate mitral insufficiency and she was transferred to [facility] about a month ago for cardiothoracic evaluation for possible surgical candidate but was found to be high risk therefore patient is being treated with optimal medical goal management for her CAD. -Anemia of chronic disease; patient receives BHAVIN and iron at dialysis. We will monitor hemoglobin trends. Hemoglobin today 8.1. -Elevated troponin 3758, cardiology consulted. Patient is on heparin drip. -History of hyperphosphatemia on Renvela. Will monitor phosphorus levels periodically. HPI Consult Data Date of Consult: 02/25/23 HPI Narrative HPI Narrative: NATALI KINSEY, is a 67 F with past medical history significant for ESRD on hemodialysis Friday schedule, last dialyzed Friday who presented the emergency room with complaints of shortness of breath. She was admitted for acute hypoxic respiratory failure secondary to pulmonary edema from CHF exacerbation and COPD/emphysema, initiated on BiPAP. Nephrology consulted for hemodialysis needs. Patient was started on CRRT last evening. She is alert and oriented this morning. Reports breathing has improved. She is now on nasal cannula. Denies any recent nausea, vomiting, diarrhea. Denies any recent fevers. [facility] Medical History (Updated 02/25/23 @ 10:16 by ART Espinoza) Acute and chronic respiratory failure with hypoxia Ambulates with cane Anemia Asthma Cardiac dysrhythmia, unspecified Chest pain Chronic kidney disease, stage V requiring chronic dialysis Chronic progressive renal failure Diabetes Dialysis patient Easy bruising Edentulous End-stage renal disease on hemodialysis ESRD (end stage renal disease) on dialysis Former smoker Gastric reflux GI bleed Hepatitis High cholesterol History of hypertension Hypertension Hypertension Hyponatremia Kidney disease Leg cramps NSTEMI, initial episode of care On home oxygen therapy PONV (postoperative nausea and vomiting) Post-menopausal Rheumatoid arthritis Shortness of breath on exertion SOB (shortness of breath) Stroke Substance abuse TIA (transient ischemic attack) Type II diabetes mellitus Wears glasses Home Medications carvedilol 12.5 mg tablet (Coreg) 12.5 mg PO BID HEART 11/28/20 [History Last Taken 02/23/23] calcium acetate(phosphat bind) 667 mg capsule 2 cap PO TID SUPPLEMENT 03/07/22 [History Last Taken 02/23/23] amlodipine 10 mg tablet 10 mg PO DAILY BLOOD PRESSURE 09/19/22 [History Last Taken 02/23/23] cinacalcet 30 mg tablet 30 mg PO DAILY DIALYSIS 09/19/22 [History Last Taken 02/23/23] hydralazine 25 mg tablet 25 mg PO TID BLOOD PRESSURE 09/19/22 [History Last Taken 02/23/23] multivitamin (Daily-Caron tablet) 1 tab PO DAILY HEALTH MAINTENANCE 09/19/22 [History Last Taken 02/23/23] sevelamer carbonate 800 mg tablet 800 mg PO TID DIALYSIS 01/28/23 [History Last Taken 02/23/23] atorvastatin 80 mg tablet 80 mg PO QHS CHOLESTEROL #90 tabs 02/04/23 [Rx Last Taken 02/23/23] clopidogrel 75 mg tablet 75 mg PO DAILY BLOOD THINNER #90 tabs 02/04/23 [Rx Last Taken 02/23/23] aspirin 81 mg tablet,delayed release 81 mg PO DAILY #90 tabs 02/18/23 [Rx Last Taken 02/23/23] lansoprazole 30 mg capsule,delayed release 30 mg PO DAILY GERD 02/24/23 [History Last Taken 02/23/23] Allergy/AdvReac Type Severity Reaction Status Date / Time ceftriaxone Allergy Severe Rash Verified 02/24/23 09:58 vancomycin Allergy Severe Rash Verified 02/24/23 09:58 Penicillins Allergy Swelling Verified 02/24/23 09:58 oxycodone HCl [From Percocet] AdvReac Intermediate Itching Verified 02/24/23 09:58 Family History Mother Hypertension Emphysema/COPD Sister Hypertension Surgical History H/O: hysterectomy History of arteriovenostomy for renal dialysis History of eye surgery History of surgery knee scope S/P arteriovenous (AV) fistula creation Social History Smoking Status: Former smoker alcohol intake: current details: 1 per week substance use type: does not use what type of physical activity do you participate in: none ROS ROS Narrative As in HPI and past medical history Physical Exam Narrative Alert and oriented x3, no apparent distress S1, S2, RRR lung sounds diminished with faint rales. On nasal cannula at 5 L Abdomen soft, nontender No edema noted bilateral lower legs feet or arms Tunneled HD catheter dressing clean, dry, intact, accessed for CRRT Lab / Micro Data Result Diagrams: 02/25/23 04:20 02/25/23 10:30 Labs: Laboratory Results - last 24 hr 02/24/23 10:15: WBC 8.7, RBC 3.10 L, Hgb 9.0 L, Hct 29.2 L, MCV 94.2, MCH 29.0, MCHC 30.8 L, RDW Std Deviation 47.2 H, RDW Coeff of Dottie 13.8, Plt Count 318, MPV 9.3, Immature Gran % (Auto) 0.800, Neut % (Auto) 72.7 H, Lymph % (Auto) 15.8 L, [place] % (Auto) 7.7, Eos % (Auto) 2.4, Baso % (Auto) 0.6, Absolute Neuts (auto) 6.4, Absolute Lymphs (auto) 1.38, Nucleated RBC % 0 02/24/23 10:15: Sodium 136, Potassium 4.1, Chloride 99, Carbon Dioxide 31.0, Anion Gap 6, BUN 38 H, Creatinine 7.35 H, Estim Creat Clear Calc 5.76, Est GFR (MDRD) Af Amer 7 L, Est GFR (MDRD) Non-Af 6 L, BUN/Creatinine Ratio 5.2 L, Glucose 124 H, Calcium 10.0, Troponin I High Sens 266 H* 02/24/23 17:46: POC Glucose 260 H 02/24/23 18:15: Sodium 136, Potassium 4.9, Chloride 103, Carbon Dioxide 25.0, BUN 38 H, Creatinine 7.22 H, Estim Creat Clear Calc 5.86, Est GFR (MDRD) Af Amer 7 L, Est GFR (MDRD) Non-Af 6 L, BUN/Creatinine Ratio 5.3 L, Glucose 254 H, Calcium 8.6, Phosphorus 5.9 H, Magnesium 2.1, Albumin 2.6 L 02/25/23 00:10: Sodium 137, Potassium 5.2 H, Chloride 102, Carbon Dioxide 28.0, BUN 38 H, Creatinine 6.57 H, Estim Creat Clear Calc 6.44, Est GFR (MDRD) Af Amer 8 L, Est GFR (MDRD) Non-Af 7 L, BUN/Creatinine Ratio 5.8 L, Glucose 161 H, Calcium 9.8, Phosphorus 4.0, Magnesium 2.3, Albumin 2.9 L 02/25/23 04:20: WBC 4.6, RBC 2.76 L, Hgb 8.1 L, Hct 28.7 L, MCV 104.0 H D, MCH 29.3, MCHC 28.2 L D, RDW Std Deviation 52.6 H, RDW Coeff of Dottie 14.1, Plt Count 258, MPV 8.9, Immature Gran % (Auto) 0.400, Neut % (Auto) 75.1 H, Lymph % (Auto) 15.0 L, [place] % (Auto) 9.3, Eos % (Auto) 0.0, Baso % (Auto) 0.2, Absolute Neuts (auto) 3.5, Absolute Lymphs (auto) 0.69 L, Nucleated RBC % 0 02/25/23 04:20: Sodium 137, Potassium 4.9, Chloride 103, Carbon Dioxide 28.0, Anion Gap 6, BUN 35 H, Creatinine 5.56 H, Estim Creat Clear Calc 7.61, Est GFR (MDRD) Af Amer 10 L, Est GFR (MDRD) Non-Af 8 L, BUN/Creatinine Ratio 6.3 L, Glucose 129 H, Calcium 9.8, Phosphorus 3.7, Magnesium 2.2, Total Bilirubin 0.50, AST 67 H, ALT 42, Alkaline Phosphatase 82, Total Protein 8.5 H, Albumin 2.9 L, Globulin 5.6 H, Albumin/Globulin Ratio 0.5 L 02/25/23 04:20: Troponin I High Sens 3758 H* 02/25/23 08:55: PT 13.7, INR 1.1, APTT 30.6 Micro: Microbiology 02/24/23 10:15 Nasal Secretion SARS-CoV-2 & FLU Antigen (Rapid) - Final ABG Data ABG results: ABG 02/24/23 10:38 Specimen Type CARI VBG pH 7.44 H VBG pO2 28 VBG HCO3 31 H VBG Total CO2 33 VBG O2 Sat (Calc) 53 VBG Base Excess 7 H POC Mix VBG pCO2 Pt Tmp 46.6 Radiology Impression Chest X-Ray 02/24/23 10:27 IMPRESSION: Findings in keeping with CHF with right basilar atelectasis. Electronically Signed: Tacho Russell MD at 11:49 EDT Reading Location ID and State: [address] [place] [address] , Service support , Documented by User: Dr. Jelani Allison MD 02/25/23 16:25 Assessment & Plan Assessment/Plan (1) Acute respiratory failure with hypoxia: (2) Elevated troponin: (3) Hypertension, accelerated: (4) CAD (coronary artery disease): PLAN: Plan This is a 67-year-old female with past medical history significant for ESRD on hemodialysis 3 times weekly (TTS schedule), history of coronary artery disease who was admitted to the hospital for further evaluation/treatment of acute hypoxic respiratory failure secondary to pulmonary edema from CHF exacerbation. Patient was initiated on CRRT last evening with fluid removal 150 mL/h. She is tolerating fluid removal with total of 1.7 L fluid removal so far today. We will transition patient to intermittent hemodialysis today and continue fluid removal as patient/blood pressure tolerates. Outpatient EDW had been 71 kg. Likely dry weight will be lowered by time of discharge. Patient is typically compliant with dialysis and usually does not have large fluid gains between sessions. Patient was hypertensive on admission and blood pressures have improved. Continue on amlodipine, carvedilol, hydralazine. -Patient has history of coronary artery disease, about 1 month ago patient was admitted to the hospital, found to have non-STEMI, she underwent left heart cath which showed multivessel disease involving LAD, RCA and circumflex, Echo showed Mildly dilated left ventricle, EF 50 to 55%, moderate mitral insufficiency and she was transferred to [facility] about a month ago for cardiothoracic evaluation for possible surgical candidate but was found to be high risk therefore patient is being treated with optimal medical goal management for her CAD. -Anemia of chronic disease; patient receives BHAVIN and iron at dialysis. We will monitor hemoglobin trends. Hemoglobin today 8.1. -Elevated troponin 3758, cardiology consulted. Patient is on heparin drip. -History of hyperphosphatemia on Renvela. Will monitor phosphorus levels periodically. Nephrology attending addendum: The patient is seen during hemodialysis treatment. She is feeling much better after fluid removal with both CRRT and with hemodialysis. She should be able to wait until her next scheduled dialysis for more fluid removal. Bhupendra Hernandez MD HPI Consult Data Date of Consult: 02/25/23 [facility] Medical History (Updated 02/25/23 @ 10:16 by ART Espinoza) Acute and chronic respiratory failure with hypoxia Ambulates with cane Anemia Asthma Cardiac dysrhythmia, unspecified Chest pain Chronic kidney disease, stage V requiring chronic dialysis Chronic progressive renal failure Diabetes Dialysis patient Easy bruising Edentulous End-stage renal disease on hemodialysis ESRD (end stage renal disease) on dialysis Former smoker Gastric reflux GI bleed Hepatitis High cholesterol History of hypertension Hypertension Hypertension Hyponatremia Kidney disease Leg cramps NSTEMI, initial episode of care On home oxygen therapy PONV (postoperative nausea and vomiting) Post-menopausal Rheumatoid arthritis Shortness of breath on exertion SOB (shortness of breath) Stroke Substance abuse TIA (transient ischemic attack) Type II diabetes mellitus Wears glasses Home Medications carvedilol 12.5 mg tablet (Coreg) 12.5 mg PO BID HEART 11/28/20 [History Last Taken 02/23/23] calcium acetate(phosphat bind) 667 mg capsule 2 cap PO TID SUPPLEMENT 03/07/22 [History Last Taken 02/23/23] amlodipine 10 mg tablet 10 mg PO DAILY BLOOD PRESSURE 09/19/22 [History Last Taken 02/23/23] cinacalcet 30 mg tablet 30 mg PO DAILY DIALYSIS 09/19/22 [History Last Taken 02/23/23] hydralazine 25 mg tablet 25 mg PO TID BLOOD PRESSURE 09/19/22 [History Last Taken 02/23/23] multivitamin (Daily-Caron tablet) 1 tab PO DAILY HEALTH MAINTENANCE 09/19/22 [History Last Taken 02/23/23] sevelamer carbonate 800 mg tablet 800 mg PO TID DIALYSIS 01/28/23 [History Last Taken 02/23/23] atorvastatin 80 mg tablet 80 mg PO QHS CHOLESTEROL #90 tabs 02/04/23 [Rx Last Taken 02/23/23] clopidogrel 75 mg tablet 75 mg PO DAILY BLOOD THINNER #90 tabs 02/04/23 [Rx Last Taken 02/23/23] aspirin 81 mg tablet,delayed release 81 mg PO DAILY #90 tabs 02/18/23 [Rx Last Taken 02/23/23] lansoprazole 30 mg capsule,delayed release 30 mg PO DAILY GERD 02/24/23 [History Last Taken 02/23/23] Allergy/AdvReac Type Severity Reaction Status Date / Time ceftriaxone Allergy Severe Rash Verified 02/24/23 09:58 vancomycin Allergy Severe Rash Verified 02/24/23 09:58 Penicillins Allergy Swelling Verified 02/24/23 09:58 oxycodone HCl [From Percocet] AdvReac Intermediate Itching Verified 02/24/23 09:58 Family History Mother Hypertension Emphysema/COPD Sister Hypertension Surgical History H/O: hysterectomy History of arteriovenostomy for renal dialysis History of eye surgery History of surgery knee scope S/P arteriovenous (AV) fistula creation Social History Smoking Status: Former smoker alcohol intake: current details: 1 per week substance use type: does not use what type of physical activity do you participate in: none Lab / Micro Data Result Diagrams: 02/25/23 04:20 02/25/23 10:30
[2023-02-25] MEDS: Pantoprazole Sodium 40 MG Tablet PO (10:14)
[2023-02-25] MEDS: amLODIPine 10 MG Tablet PO (10:14)
[2023-02-25] MEDS: Aspirin E.C. 81 MG Tablet PO (10:14)
[2023-02-25] MEDS: Cinacalcet HCl 30 MG Tablet PO (10:14)
[2023-02-25] MEDS: Clopidogrel Bisulfate 75 MG Tablet PO (10:14)
--- NOTE | 2023-02-25 10:21 | CON.PCM.CC_ITS ---
Assessment & Plan Assessment/Plan (1) Acute respiratory failure with hypoxia: PLAN: Plan RECOMMENDATIONS: 1. Wean supplemental oxygen to maintain saturations at or above 90%. 2. Cardiology consultation. 3. Volume removal via dialysis, per nephrology recommendations. 4. Continue aerosolized bronchodilators. 5. Once the patient has been converted from CRRT to intermittent HD, she can be transferred out of the medical intensive care unit. 6. We will sign off from a critical care perspective. Please call with any questions. IMPRESSIONS: 1. Acute on chronic respiratory failure with hypoxemia Most likely secondary to NSTEMI with decompensated heart failure with preserved ejection fraction in the setting of end-stage renal disease. Chest imaging was concerning for pulmonary vascular congestion. The patient has responded to CRRT with volume removal. Oxygenation status has improved. In light of her troponin elevation, cardiology consultation is pending. 2. History of coronary artery disease/NSTEMI/heart failure with preserved ejection fraction Continue volume removal as noted above. Cardiology consultation is pending. Obtain echocardiogram. Continue to trend troponins. 3. Questionable COPD/end-stage renal disease on hemodialysis/hypertension/GERD Complicates care, management, recovery and prognosis. Continue home medications as indicated. This note was generated with [employer] dictation software. It may contain incorrect words, spelling, and punctuation that were not noted in checking the note before signing. HPI Consult Data Date of Consult: 02/26/23 HPI Narrative Reason for Consultation: Acute hypoxemic respiratory failure HPI Narrative: The patient is a 67-year-old female, with a history as outlined below, who presented to the emergency department via EMS on February 24 with shortness of breath. The patient has a known history of end-stage renal disease on hemodial ysis. She has been compliant with her prescribed dialysis sessions. The patient reportedly wears 3 L/min of supplemental oxygen at home. She also has a reported history of COPD. On presentation to the emergency department, the patient was noted to be afebrile and hemodynamically stable. Her presenting blood pressures were elevated at 196/87 mmHg. Initial laboratory evaluation revealed no evidence of a leukocytosis. Coagulation profile was unremarkable. Troponin was increased to 266. Chest imaging demonstrated stigmata of pulmonary vascular congestion. The patient was initially admitted to the medical intensive care unit, where she was maintained on CRRT, per nephrology recommendations. As of this afternoon, with volume removal, the patient's oxygenation status has improved. She has been weaned down to 1 L/min of supplemental oxygen. The patient was just transition from CRRT to conventional HD. [facility] Medical History (Updated 02/25/23 @ 10:16 by ART Espinoza) Acute and chronic respiratory failure with hypoxia Ambulates with cane Anemia Asthma Cardiac dysrhythmia, unspecified Chest pain Chronic kidney disease, stage V requiring chronic dialysis Chronic progressive renal failure Diabetes Dialysis patient Easy bruising Edentulous End-stage renal disease on hemodialysis ESRD (end stage renal disease) on dialysis Former smoker Gastric reflux GI bleed Hepatitis High cholesterol History of hypertension Hypertension Hypertension Hyponatremia Kidney disease Leg cramps NSTEMI, initial episode of care On home oxygen therapy PONV (postoperative nausea and vomiting) Post-menopausal Rheumatoid arthritis Shortness of breath on exertion SOB (shortness of breath) Stroke Substance abuse TIA (transient ischemic attack) Type II diabetes mellitus Wears glasses Home Medications carvedilol 12.5 mg tablet (Coreg) 12.5 mg PO BID HEART 11/28/20 [History Last Taken 02/23/23] calcium acetate(phosphat bind) 667 mg capsule 2 cap PO TID SUPPLEMENT 03/07/22 [History Last Taken 02/23/23] amlodipine 10 mg tablet 10 mg PO DAILY BLOOD PRESSURE 09/19/22 [History Last Taken 02/23/23] cinacalcet 30 mg tablet 30 mg PO DAILY DIALYSIS 09/19/22 [History Last Taken 02/23/23] hydralazine 25 mg tablet 25 mg PO TID BLOOD PRESSURE 09/19/22 [History Last Taken 02/23/23] multivitamin (Daily-Caron tablet) 1 tab PO DAILY HEALTH MAINTENANCE 09/19/22 [History Last Taken 02/23/23] sevelamer carbonate 800 mg tablet 800 mg PO TID DIALYSIS 01/28/23 [History Last Taken 02/23/23] atorvastatin 80 mg tablet 80 mg PO QHS CHOLESTEROL #90 tabs 02/04/23 [Rx Last Taken 02/23/23] clopidogrel 75 mg tablet 75 mg PO DAILY BLOOD THINNER #90 tabs 02/04/23 [Rx Last Taken 02/23/23] aspirin 81 mg tablet,delayed release 81 mg PO DAILY #90 tabs 02/18/23 [Rx Last Taken 02/23/23] lansoprazole 30 mg capsule,delayed release 30 mg PO DAILY GERD 02/24/23 [History Last Taken 02/23/23] Allergy/AdvReac Type Severity Reaction Status Date / Time ceftriaxone Allergy Severe Rash Verified 02/24/23 09:58 vancomycin Allergy Severe Rash Verified 02/24/23 09:58 Penicillins Allergy Swelling Verified 02/24/23 09:58 oxycodone HCl [From Percocet] AdvReac Intermediate Itching Verified 02/24/23 09:58 Family History Mother Hypertension Emphysema/COPD Sister Hypertension Surgical History H/O: hysterectomy History of arteriovenostomy for renal dialysis History of eye surgery History of surgery knee scope S/P arteriovenous (AV) fistula creation Social History Smoking Status: Former smoker alcohol intake: current details: 1 per week substance use type: does not use what type of physical activity do you participate in: none ROS ROS Narrative 10 systems were reviewed with pertinent positives as noted in the HPI above. Physical Exam Const alert, oriented x3 and no apparent distress General Appearance: cooperative HEENT normocephalic, head/scalp atraumatic and moist oral mucous membranes Eyes PERRL, EOMs intact bilaterally and conjunctivae normal Neck supple General: trachea midline Chest inspection of chest normal Resp Auscultation: diminished lung sounds; Negative for rales, rhonchi or wheezes Cardio regular rate and regular rhythm GI normal to inspection, nondistended, normoactive bowel sounds Extremity no clubbing, cyanosis or edema Skin no rashes or lesions noted Neuro moves all extremities and no focal motor deficits Psych cooperative and affect normal Lab / Micro Data Result Diagrams: 02/26/23 05:00 02/26/23 05:00 Labs: Laboratory Results - last 24 hr 02/24/23 10:15: WBC 8.7, RBC 3.10 L, Hgb 9.0 L, Hct 29.2 L, MCV 94.2, MCH 29.0, MCHC 30.8 L, RDW Std Deviation 47.2 H, RDW Coeff of Dottie 13.8, Plt Count 318, MPV 9.3, Immature Gran % (Auto) 0.800, Neut % (Auto) 72.7 H, Lymph % (Auto) 15.8 L, [place] % (Auto) 7.7, Eos % (Auto) 2.4, Baso % (Auto) 0.6, Absolute Neuts (auto) 6.4, Absolute Lymphs (auto) 1.38, Nucleated RBC % 0 02/24/23 10:15: Sodium 136, Potassium 4.1, Chloride 99, Carbon Dioxide 31.0, Anion Gap 6, BUN 38 H, Creatinine 7.35 H, Estim Creat Clear Calc 5.76, Est GFR (MDRD) Af Amer 7 L, Est GFR (MDRD) Non-Af 6 L, BUN/Creatinine Ratio 5.2 L, Glucose 124 H, Calcium 10.0, Troponin I High Sens 266 H* 02/24/23 17:46: POC Glucose 260 H 02/24/23 18:15: Sodium 136, Potassium 4.9, Chloride 103, Carbon Dioxide 25.0, BUN 38 H, Creatinine 7.22 H, Estim Creat Clear Calc 5.86, Est GFR (MDRD) Af Amer 7 L, Est GFR (MDRD) Non-Af 6 L, BUN/Creatinine Ratio 5.3 L, Glucose 254 H, Calcium 8.6, Phosphorus 5.9 H, Magnesium 2.1, Albumin 2.6 L 02/25/23 00:10: Sodium 137, Potassium 5.2 H, Chloride 102, Carbon Dioxide 28.0, BUN 38 H, Creatinine 6.57 H, Estim Creat Clear Calc 6.44, Est GFR (MDRD) Af Amer 8 L, Est GFR (MDRD) Non-Af 7 L, BUN/Creatinine Ratio 5.8 L, Glucose 161 H, Calcium 9.8, Phosphorus 4.0, Magnesium 2.3, Albumin 2.9 L 02/25/23 04:20: WBC 4.6, RBC 2.76 L, Hgb 8.1 L, Hct 28.7 L, MCV 104.0 H D, MCH 29.3, MCHC 28.2 L D, RDW Std Deviation 52.6 H, RDW Coeff of Dottie 14.1, Plt Count 258, MPV 8.9, Immature Gran % (Auto) 0.400, Neut % (Auto) 75.1 H, Lymph % (Auto) 15.0 L, [place] % (Auto) 9.3, Eos % (Auto) 0.0, Baso % (Auto) 0.2, Absolute Neuts (auto) 3.5, Absolute Lymphs (auto) 0.69 L, Nucleated RBC % 0 02/25/23 04:20: Sodium 137, Potassium 4.9, Chloride 103, Carbon Dioxide 28.0, Anion Gap 6, BUN 35 H, Creatinine 5.56 H, Estim Creat Clear Calc 7.61, Est GFR (MDRD) Af Amer 10 L, Est GFR (MDRD) Non-Af 8 L, BUN/Creatinine Ratio 6.3 L, Glucose 129 H, Calcium 9.8, Phosphorus 3.7, Magnesium 2.2, Total Bilirubin 0.50, AST 67 H, ALT 42, Alkaline Phosphatase 82, Total Protein 8.5 H, Albumin 2.9 L, Globulin 5.6 H, Albumin/Globulin Ratio 0.5 L 02/25/23 04:20: Troponin I High Sens 3758 H* 02/25/23 08:55: PT 13.7, INR 1.1, APTT 30.6 Micro: Microbiology 02/24/23 10:15 Nasal Secretion SARS-CoV-2 & FLU Antigen (Rapid) - Final ABG Data ABG results: ABG 02/24/23 10:38 Specimen Type CARI VBG pH 7.44 H VBG pO2 28 VBG HCO3 31 H VBG Total CO2 33 VBG O2 Sat (Calc) 53 VBG Base Excess 7 H POC Mix VBG pCO2 Pt Tmp 46.6 Radiology Impression Chest X-Ray 02/24/23 10:27 IMPRESSION: Findings in keeping with CHF with right basilar atelectasis. Electronically Signed: Tacho Russell MD at 11:49 EDT , Charges/Coding Visit Charges Inpatient E&M: 21667 Init Hosp L2
[2023-02-25] MEDS: SEVELAMER CARBONATE 800 MG TABLET PO ×2 (10:31→18:02)
[2023-02-25 10:54] LABS: Albumin, Serum 2.9 g/dL (3.2-5.0); BUN 30 mg/dL (7-18); BUN/Creat Ratio 6.4 RATIO (10-20); Calcium,Total 9.5 mg/dL (8.5-10.1); Chloride 103 mmol/L (98-107); Creatinine, Serum 4.67 mg/dL (0.55-1.02); EST Glomerular Filtration Rate 10 mL/min (>60); Est Glom Filt Rate - Afr Amer 12 mL/min (>60); Estimated Creatinine Clearance 9.06 ml/min; Glucose 116 mg/dL (74-106); Magnesium 2.2 mg/dL (1.6-2.6); Phosphorus 3.1 mg/dL (2.5-4.9); Potassium 4.7 mmol/L (3.5-5.1); Sodium Level 137 mmol/L (136-145)
--- NOTE | 2023-02-25 14:44 | CON.PCM.CA_ITS ---
Assessment & Plan Assessment/Plan (1) (HFpEF) heart failure with preserved ejection fraction: QUALIFIERS: Heart failure chronicity: acute Qualified Code(s): I50.31 - Acute diastolic (congestive) heart failure PLAN: Improved after CRRT. Continue present management. 2D echo reviewed. EF is preserved. (2) Acute respiratory failure with hypoxia: PLAN: Appears to be secondary to CHF. (3) CAD (coronary artery disease): (4) NSTEMI, initial episode of care: PLAN: Patient has multivessel coronary artery disease. She was felt not to be a surgical candidate. We could proceed with PCI of the LAD +/- RCA tomorrow. Risks and benefits discussed with the patient in detail. Patient wants to discuss this with her grandson. If patient is agreeable then we will proceed with PCI as mentioned. HPI Consult Data Date of Consult: 02/25/23 HPI Narrative Reason for Consultation: Non-STEMI, CHF HPI Narrative: NATALI KINSEY, is a 67 F who presents with shortness of breath. Patient was found to be in CHF. She feels better after CRRT. She was at [facility] last month when she underwent coronary angiography and was found to have triple-vessel coronary artery disease. She was sent to [facility] for possible CABG. She was felt not to be a surgical candidate and medical therapy was recommended. At the time of last admission patient was having chest pain. This time she did not have significant chest pain. However her troponin has gone up to around 3700. Review of systems: All systems reviewed. All system negative except as in HPI [facility] Medical History (Updated 02/25/23 @ 10:16 by ART Espinoza) Acute and chronic respiratory failure with hypoxia Ambulates with cane Anemia Asthma Cardiac dysrhythmia, unspecified Chest pain Chronic kidney disease, stage V requiring chronic dialysis Chronic progressive renal failure Diabetes Dialysis patient Easy bruising Edentulous End-stage renal disease on hemodialysis ESRD (end stage renal disease) on dialysis Former smoker Gastric reflux GI bleed Hepatitis High cholesterol History of hypertension Hypertension Hypertension Hyponatremia Kidney disease Leg cramps NSTEMI, initial episode of care On home oxygen therapy PONV (postoperative nausea and vomiting) Post-menopausal Rheumatoid arthritis Shortness of breath on exertion SOB (shortness of breath) Stroke Substance abuse TIA (transient ischemic attack) Type II diabetes mellitus Wears glasses Home Medications carvedilol 12.5 mg tablet (Coreg) 12.5 mg PO BID HEART 11/28/20 [History Last Taken 02/23/23] calcium acetate(phosphat bind) 667 mg capsule 2 cap PO TID SUPPLEMENT 03/07/22 [History Last Taken 02/23/23] amlodipine 10 mg tablet 10 mg PO DAILY BLOOD PRESSURE 09/19/22 [History Last Taken 02/23/23] cinacalcet 30 mg tablet 30 mg PO DAILY DIALYSIS 09/19/22 [History Last Taken 02/23/23] hydralazine 25 mg tablet 25 mg PO TID BLOOD PRESSURE 09/19/22 [History Last Toan en 02/23/23] multivitamin (Daily-Caron tablet) 1 tab PO DAILY HEALTH MAINTENANCE 09/19/22 [History Last Taken 02/23/23] sevelamer carbonate 800 mg tablet 800 mg PO TID DIALYSIS 01/28/23 [History Last Taken 02/23/23] atorvastatin 80 mg tablet 80 mg PO QHS CHOLESTEROL #90 tabs 02/04/23 [Rx Last Taken 02/23/23] clopidogrel 75 mg tablet 75 mg PO DAILY BLOOD THINNER #90 tabs 02/04/23 [Rx Last Taken 02/23/23] aspirin 81 mg tablet,delayed release 81 mg PO DAILY #90 tabs 02/18/23 [Rx Last Taken 02/23/23] lansoprazole 30 mg capsule,delayed release 30 mg PO DAILY GERD 02/24/23 [History Last Taken 02/23/23] Allergy/AdvReac Type Severity Reaction Status Date / Time ceftriaxone Allergy Severe Rash Verified 02/24/23 09:58 vancomycin Allergy Severe Rash Verified 02/24/23 09:58 Penicillins Allergy Swelling Verified 02/24/23 09:58 oxycodone HCl [From Percocet] AdvReac Intermediate Itching Verified 02/24/23 09:58 Family History Mother Hypertension Emphysema/COPD Sister Hypertension Surgical History H/O: hysterectomy History of arteriovenostomy for renal dialysis History of eye surgery History of surgery knee scope S/P arteriovenous (AV) fistula creation Social History Smoking Status: Former smoker alcohol intake: current details: 1 per week substance use type: does not use what type of physical activity do you participate in: none Physical Exam Const alert and oriented x3 HEENT normocephalic Eyes no scleral icterus Resp normal respiratory effort and clear to auscultation bilaterally Cardio regular rate Extremity no pedal edema Skin no rashes or lesions noted Psych mental status grossly normal Risk Stratification Risk Stratification Applicable: No Charges/Coding Visit Charges Inpatient E&M: 71920 Init Hosp L2 Objective Data Vital Signs: Vital Signs Temp Pulse Resp BP Pulse Ox O2 Del Method O2 Flow Rate 97.8 F 74 16 135/58 H 98 Nasal Cannula 1 02/25/23 12:00 02/25/23 14:00 02/25/23 14:00 02/25/23 14:00 02/25/23 14:00 02/25/23 14:00 02/25/23 14:00 FiO2 25 02/25/23 04:50 Oxygen Flow Rate (L/min) 1 Oxygen Delivery Method Nasal Cannula Weight: 153 lb 3.54 oz Body Mass Index (BMI) 28.9 Intake & Output: Intake and Output for Last 24 Hours 02/23/23 02/24/23 02/25/23 23:59 23:59 23:59 Intake Total 200 / 200 Balance 200 / 200 Lab / Micro Data Result Diagrams: 02/25/23 04:20 02/25/23 10:30 Labs: Laboratory Results - last 24 hr 02/24/23 17:46: POC Glucose 260 H 02/24/23 18:15: Sodium 136, Potassium 4.9, Chloride 103, Carbon Dioxide 25.0, BUN 38 H, Creatinine 7.22 H, Estim Creat Clear Calc 5.86, Est GFR (MDRD) Af Amer 7 L, Est GFR (MDRD) Non-Af 6 L, BUN/Creatinine Ratio 5.3 L, Glucose 254 H, Calcium 8.6, Phosphorus 5.9 H, Magnesium 2.1, Albumin 2.6 L 02/25/23 00:10: Sodium 137, Potassium 5.2 H, Chloride 102, Carbon Dioxide 28.0, BUN 38 H, Creatinine 6.57 H, Estim Creat Clear Calc 6.44, Est GFR (MDRD) Af Amer 8 L, Est GFR (MDRD) Non-Af 7 L, BUN/Creatinine Ratio 5.8 L, Glucose 161 H, Calcium 9.8, Phosphorus 4.0, Magnesium 2.3, Albumin 2.9 L 02/25/23 04:20: WBC 4.6, RBC 2.76 L, Hgb 8.1 L, Hct 28.7 L, MCV 104.0 H D, MCH 29.3, MCHC 28.2 L D, RDW Std Deviation 52.6 H, RDW Coeff of Dottie 14.1, Plt Count 258, MPV 8.9, Immature Gran % (Auto) 0.400, Neut % (Auto) 75.1 H, Lymph % (Auto) 15.0 L, [place] % (Auto) 9.3, Eos % (Auto) 0.0, Baso % (Auto) 0.2, Absolute Neuts (auto) 3.5, Absolute Lymphs (auto) 0.69 L, Nucleated RBC % 0 02/25/23 04:20: Sodium 137, Potassium 4.9, Chloride 103, Carbon Dioxide 28.0, Anion Gap 6, BUN 35 H, Creatinine 5.56 H, Estim Creat Clear Calc 7.61, Est GFR (MDRD) Af Amer 10 L, Est GFR (MDRD) Non-Af 8 L, BUN/Creatinine Ratio 6.3 L, Glucose 129 H, Calcium 9.8, Phosphorus 3.7, Magnesium 2.2, Total Bilirubin 0.50, AST 67 H, ALT 42, Alkaline Phosphatase 82, Total Protein 8.5 H, Albumin 2.9 L, Globulin 5.6 H, Albumin/Globulin Ratio 0.5 L 02/25/23 04:20: Troponin I High Sens 3758 H* 02/25/23 08:55: PT 13.7, INR 1.1, APTT 30.6 02/25/23 10:30: Sodium 137, Potassium 4.7, Chloride 103, Carbon Dioxide 29.0, BUN 30 H, Creatinine 4.67 H, Estim Creat Clear Calc 9.06, Est GFR (MDRD) Af Amer 12 L, Est GFR (MDRD) Non-Af 10 L, BUN/Creatinine Ratio 6.4 L, Glucose 116 H, Calcium 9.5, Phosphorus 3.1, Magnesium 2.2, Albumin 2.9 L Micro: Microbiology 06/12/23 10:15 Nasal Secretion SARS-CoV-2 & FLU Antigen (Rapid) - Final Cardiology Labs/Tests 02/24/23 18:15: Sodium 136, Potassium 4.9, Chloride 103, Carbon Dioxide 25.0, BUN 38 H, Creatinine 7.22 H, Est GFR (MDRD) Af Amer 7 L, Est GFR (MDRD) Non-Af 6 L, BUN/Creatinine Ratio 5.3 L, Glucose 254 H, Calcium 8.6, Phosphorus 5.9 H, Magnesium 2.1 02/25/23 00:10: Sodium 137, Potassium 5.2 H, Chloride 102, Carbon Dioxide 28.0, BUN 38 H, Creatinine 6.57 H, Est GFR (MDRD) Af Amer 8 L, Est GFR (MDRD) Non-Af 7 L, BUN/Creatinine Ratio 5.8 L, Glucose 161 H, Calcium 9.8, Phosphorus 4.0, Magnesium 2.3 02/25/23 04:20: WBC 4.6, RBC 2.76 L, Hgb 8.1 L, Hct 28.7 L, MCV 104.0 H D, MCH 29.3, MCHC 28.2 L D, Plt Count 258, MPV 8.9, Immature Gran % (Auto) 0.400, Neut % (Auto) 75.1 H, Lymph % (Auto) 15.0 L, [place] % (Auto) 9.3, Eos % (Auto) 0.0, Baso % (Auto) 0.2, Absolute Neuts (auto) 3.5, Nucleated RBC % 0 02/25/23 04:20: Sodium 137, Potassium 4.9, Chloride 103, Carbon Dioxide 28.0, Anion Gap 6, BUN 35 H, Creatinine 5.56 H, Est GFR (MDRD) Af Amer 10 L, Est GFR (MDRD) Non-Af 8 L, BUN/Creatinine Ratio 6.3 L, Glucose 129 H, Calcium 9.8, Phosphorus 3.7, Magnesium 2.2, Total Bilirubin 0.50 02/25/23 08:55: PT 13.7, INR 1.1, APTT 30.6 02/25/23 10:30: Sodium 137, Potassium 4.7, Chloride 103, Carbon Dioxide 29.0, BUN 30 H, Creatinine 4.67 H, Est GFR (MDRD) Af Amer 12 L, Est GFR (MDRD) Non-Af 10 L, BUN/Creatinine Ratio 6.4 L, Glucose 116 H, Calcium 9.5, Phosphorus 3.1, Magnesium 2.2 Rhythm: EKG: ECHO: Stress Test: Cardiac Cath: PCI: CT Surgery: Holter monitor: EPS: PPM: CXR: Chest CT Scan: Radiography Diagnostic Testing: Radiology Impression Echocardiogram 02/25/23 07:04 Interpretation Summary The estimated ejection fraction is 55 %. No evidence for diastolic dysfunction. Moderate (2+) mitral valve insufficiency. Ordering Physician: Tommy Soto Referring Physician: Dru Cummins M.D. Performed By: Kia Muhammad RCS
--- NOTE | 2023-02-25 15:30 | CASEMGMT ---
Addendum entered by Jan Bae 02/26/23 16:50: 02/25/23 @ 1620: NIKKI LINARES placed call to pt's GSKi. Ki states pt's C was set up through [facility]. NIKKI LINARES inquired who is working on getting pt a shower chair and glucometer. He states he is not sure. Original Note: RN?CM?SALES ACCOUNT MANAGER?CM?to room to meet with patient for initial transition planning/care coordination?assessment.?RN?CM?introduced self and role at [facility].? Pt voices understanding and consents to?assessment?at this time.? Pt resting in bed in no distress at this time.? Pt is A/O at this time and answers all questions appropriately.?? Care providers, pharmacy, and demographics verified/updated at this time. PCP: Dr Prince Cummins Specialists:Dr Gaytan-nephrology. Goes to [facility]. Dr Trimble-ARNOLD. Preferred Pharmacy: [facility] @ d/c. Otherwise, uses [facility]. Insurance:[facility] Prescription Benefit:?Yes Living Will/HPOA:?Pt does not currently have LW/HCPOA but states would want her GS, Ki, to be medical decision maker. She states is not interested in completing AD today but okay w/SW stopping in tomorrow to discuss. LNOK: Pt has a son but states he is currently in residential. She has a brother, Bryan, and a sister, Darius. She lives w/Ki OENAL, and AFREED,Anne. Living Arrangements: Pt lives w/Ki ONEAL, and FAREED,Anne, in 2-story home w/2 steps to enter. Pt states she does have to go upstairs and states does okay w/the stairs @ her baseline. Pt states she is indep w/bathing and dressing, manages her medications, and does her own laundry and meals. She states GD gets the groceries. Transportation:?[place] or family. DME: States has the following DME:?cane, walker, medical alert system, and O2 through [employer]. Pt has a concentrator and portable O2 tanks and states family can bring portable tank in for her to go home on @ dc. Pt states someone is working on getting her a shower chair and glucometer, but she is not sure how soon she will be getting these. Pt states no need for further DME at this time.? HHC/SNF: Hx SNF years ago. States is active w/HHC at this time but does not remember name of agency. She states her GS, Ki, would know and asked RN CM to call him. Pt states is pleased w/the HHC co and wishes to resume care with them @ d/c and declines wanting list of other HHC options. CM: Pt states she has a CM through [facility] and states her name is Klarissa. Pt wishes to return home and states has no concerns with going home at time of discharge.? ?CM?to follow for any further discharge planning/needs.? Pt voices no further concerns/needs at this time.? Advised pt to ask for?CM?if any further questions/concerns/needs arise.? Voices understanding. PLAN:??Home w/Resumtion of HHC. CM to f/u re: glucometer and shower chair. Abel BSN?RN?CM
[2023-02-25 15:55] LABS: Partial Thromboplast Time 227.1 Seconds (24.1-36.2)
--- NOTE | 2023-02-25 17:03 | CASEMGMT ---
NIKKI LINARES NOTE: Per [facility] C, pt is active w/them for SN, PT/OT, and SW. Abel MCCORMICK RN CM
[2023-02-25] MEDS: Atorvastatin Calcium 80 MG Tablet PO (20:03)
[2023-02-26] VITALS (22 sets, daily range): BP systolic 123–150; BP diastolic 42–61; PULSE 73–87; RESP 14–26; TEMP 36.4–37.2; O2SAT 93–100; BMI 28.7
[2023-02-26] MEDS: Ipratropium/Albuterol Sulfate 3 ML AMPUL.NEB INHALATION ×4 (01:52→19:03)
[2023-02-26] MEDS: 0.9% Saline Lock 10 ML Syringe IV ×2 (04:58→05:06)
[2023-02-26] MEDS: hydrALAZINE 25 MG Tablet PO ×3 (04:59→20:39)
[2023-02-26 05:13] LABS: Absolute Lymphocyte Count 1.94 X10^3/uL (0.83-4.51); Absolute Neutrophil Count 3.4 X10^3/uL (2.0-7.7); Basophil# 0.02 X10^3/uL; Basophil% 0.3 % (0-1); Eosinophil# 0.03 X10^3/uL; Eosinophils% 0.5 % (0-5); Hematocrit 24.3 % (37-47); Hemoglobin 7.6 g/dL (12.0-15.0); Lymphocyte # 1.94 X10^3/ul (0.83-4.51); Lymphocyte % 32.3 % (19-41); Mean Corp Hgb Conc 31.3 g/dL (32-36); Mean Corpuscular Hgb 29.7 pg (27.0-32.0); Mean Corpuscular Volume 94.9 fL (81-99); Mean Platelet Vol. 8.9 fl (6.2-12.0); Monocyte# 0.53 X10^3/uL; Monocyte% 8.8 % (0-10); NRBC Flagged by Analyzer 0.5 % (0-5); Neutrophil # 3.44 X10^3/uL (2.7-7.7); Neutrophil % 57.3 % (47-70); Platelet Count 278 K/mm3 (150-450); RBC Distribution Width SD 47.8 fl (35.1-43.9); Red Blood Count 2.56 M/mm3 (4.2-5.4)
[2023-02-26 05:49] LABS: Anion Gap 5 (5-15); BUN 23 mg/dL (7-18); BUN/Creat Ratio 6.9 RATIO (10-20); Calcium,Total 7.8 mg/dL (8.5-10.1); Chloride 105 mmol/L (98-107); Creatinine, Serum 3.33 mg/dL (0.55-1.02); EST Glomerular Filtration Rate 15 mL/min (>60); Est Glom Filt Rate - Afr Amer 18 mL/min (>60); Estimated Creatinine Clearance 12.71 ml/min; Glucose 85 mg/dL (74-106); Potassium 3.4 mmol/L (3.5-5.1); Sodium Level 138 mmol/L (136-145)
[2023-02-26 07:07] LABS: Partial Thromboplast Time 78.3 Seconds (24.1-36.2)
--- NOTE | 2023-02-26 07:14 | PN.HOSP_ITS ---
Reason for Visit Reason for Visit: Diagnoses Essential (primary) hypertension (02/24/23) Non-ST elevation (NSTEMI) myocardial infarction (02/24/23) Atherosclerotic heart disease of [place] coronary artery without angina pectoris (02/24/23) Acute diastolic (congestive) heart failure (02/24/23) Acute respiratory failure with hypoxia (02/24/23) Other specified abnormalities of plasma proteins (02/24/23) Subjective Subjective Feels well. No issues overnight. Objective Data Objective Data Vital Signs: Vital Signs Temp Pulse Resp BP Pulse Ox O2 Del Method O2 Flow Rate 37.1 C 80 14 135/56 H 96 Room Air 1 02/26/23 04:00 02/26/23 06:00 02/26/23 05:00 02/26/23 06:00 02/26/23 06:00 02/26/23 06:00 02/25/23 15:00 FiO2 25 02/25/23 04:50 Oxygen Flow Rate (L/min) 1 Oxygen Delivery Method Room Air Weight: 69 kg Body Mass Index (BMI) 28.7 Intake & Output: Intake and Output for Last 24 Hours 02/24/23 02/25/23 02/26/23 23:59 23:59 23:59 Intake Total 274.65 / 374.65 278.5 / 278.5 Output Total 2102 / 4204 2102 / 2102 Balance -1827.35 / -3829.35 -1823.5 / -1823.5 Lab / Micro Data Result Diagrams: 02/26/23 05:00 02/26/23 05:00 Labs: Laboratory Results - last 24 hr 02/25/23 04:20: Troponin I High Sens 3758 H* 02/25/23 08:55: PT 13.7, INR 1.1, APTT 30.6 02/25/23 10:30: Sodium 137, Potassium 4.7, Chloride 103, Carbon Dioxide 29.0, BUN 30 H, Creatinine 4.67 H, Estim Creat Clear Calc 9.06, Est GFR (MDRD) Af Amer 12 L, Est GFR (MDRD) Non-Af 10 L, BUN/Creatinine Ratio 6.4 L, Glucose 116 H, Calcium 9.5, Phosphorus 3.1, Magnesium 2.2, Albumin 2.9 L 02/25/23 15:15: APTT 227.1 H* 02/26/23 00:30: APTT 111.0 H* 02/26/23 05:00: WBC 6.0, RBC 2.56 L, Hgb 7.6 L, Hct 24.3 L, MCV 94.9 D, MCH 29.7, MCHC 31.3 L D, RDW Std Deviation 47.8 H, RDW Coeff of Dottie 14.0, Plt Count 278, MPV 8.9, Immature Gran % (Auto) 0.800, Neut % (Auto) 57.3, Lymph % (Auto) 32.3, [place] % (Auto) 8.8, Eos % (Auto) 0.5, Baso % (Auto) 0.3, Absolute Neuts (auto) 3.4, Absolute Lymphs (auto) 1.94, Nucleated RBC % 0.5 02/26/23 05:00: Sodium 138, Potassium 3.4 L, Chloride 105, Carbon Dioxide 28.0, Anion Gap 5, BUN 23 H, Creatinine 3.33 H, Estim Creat Clear Calc 12.71, Est GFR (MDRD) Af Amer 18 L, Est GFR (MDRD) Non-Af 15 L, BUN/Creatinine Ratio 6.9 L, Glucose 85, Calcium 7.8 L 02/26/23 06:45: APTT 78.3 H Micro: Microbiology 02/24/23 10:15 Nasal Secretion SARS-CoV-2 & FLU Antigen (Rapid) - Final Radiography Diagnostic Testing: Radiology Impression Echocardiogram 02/25/23 07:04 Interpretation Summary The estimated ejection fraction is 55 %. No evidence for diastolic dysfunction. Moderate (2+) mitral valve insufficiency. Ordering Physician: Tommy Soto Referring Physician: Dru Cummins M.D. Performed By: Kia Muhammad RCS Physical Exam Const alert and no apparent distress HEENT head/scalp atraumatic and moist oral mucous membranes Resp normal respiratory effort, no retractions, no use of accessory muscles and clear to auscultation bilaterally Cardio regular rate, regular rhythm, S1 normal heart sound and S2 normal heart sound GI normal to inspection, nondistended, normoactive bowel sounds, soft to palpation, non-tender and non-distended Assessment & Plan Assessment/Plan (1) Acute respiratory failure with hypoxia: PLAN: Admission pulse ox was 85% on 5 liters/m CXR personally reviewed and showed pulmonary vascularization and pleural effusions. Suspect secondary to pulmonary edema from CHF exacerbation Since weaned off BiPAP (2) (HFpEF) heart failure with preserved ejection fraction: QUALIFIERS: Heart failure chronicity: acute Qualified Code(s): I50.31 - Acute diastolic (congestive) heart failure PLAN: Suspect acute pulmonary edema secondary to acute on chronic diastolic congestive heart failure secondary to ischemic heart disease/hypertensive heart disease. Nephrology to assist with and help facilitate hemodialysis for fluid management. Was on CRRT, since converted back to HD (3) NSTEMI, initial episode of care: PLAN: Known triple-vessel disease. Was transferred to [facility] a few weeks ago however per patient, was deemed not to be surgical candidate and is just being treated with optimal medical management. We will continue with high intensity statin, aspirin and Plavix. Recheck echo. Troponins jump from 266 to 3758. Start heparin gtt. Cardiology consulted, tentative plan for PCI (4) Anemia: PLAN: Suspect anemia of CD Iron 59, TIBC 172, Ferritin 1503, B12 pending, Folate 4.8 and TSH 0.8 Transfuse 1 unit to keep Hg greater than or equal to 8. PLAN: Plan Chronic conditions: * Possible COPD chest emphysema. Supplemental oxygen. Scheduled breathing treatments every 6 hours. * ESRD: nephrology on consult for HD * HTN:on carvedilol, hydralazine * GERD: continue PPI VTE prophylaxis: SQ heparin Transfer to PCU. Charges/Coding Visit Charges Inpatient E&M: 93234 Subs Hosp L2
[2023-02-26] MEDS: Carvedilol 12.5 MG Tablet PO ×2 (08:17→17:21)
[2023-02-26] MEDS: Multivitamins,Therapeutic Tablet 1 TABLET PO (08:17)
--- NOTE | 2023-02-26 09:13 | CASEMGMT ---
Social Work SW received referral for Advance Directives. SW met with pt and introduced self and role of SW. Pt provided information to pt regarding Health Care POA and pt adamant that she does not want to complete these documents. Pt made aware that SW can assist with this if pt changes her mind. ALBERT Katz
[2023-02-26 09:31] LABS: Ferritin 1503 ng/mL (8-252); Iron 58 ug/dL (50-170); Iron Binding Capacity,Total 172 ug/dL (250-450); PERCENT IRON SATURATION 33.7 % (15.0-55.0)
[2023-02-26] MEDS: Acetaminophen 325 MG Tablet 650 MG PO ×2 (09:46→18:37)
[2023-02-26] MEDS: Pantoprazole Sodium 40 MG Tablet PO (09:46)
[2023-02-26] MEDS: amLODIPine 10 MG Tablet PO (09:47)
[2023-02-26] MEDS: Clopidogrel Bisulfate 75 MG Tablet PO (09:47)
[2023-02-26] MEDS: Aspirin E.C. 81 MG Tablet PO (09:47)
[2023-02-26] MEDS: Cinacalcet HCl 30 MG Tablet PO (09:47)
[2023-02-26] MEDS: SEVELAMER CARBONATE 800 MG TABLET PO ×3 (10:07→17:21)
--- NOTE | 2023-02-26 10:43 | PCM.PN.REN ---
Subjective Subjective Sitting in chair no overnight events. Reports breathing better. On room air. Objective Data Objective Data Vital Signs: Vital Signs Temp Pulse Resp BP Pulse Ox O2 Del Method O2 Flow Rate 98.3 F 83 18 146/43 H 96 Room Air 1 02/26/23 08:00 02/26/23 08:00 02/26/23 08:00 02/26/23 08:00 02/26/23 08:00 02/26/23 08:00 02/25/23 15:00 FiO2 25 02/25/23 04:50 Oxygen Flow Rate (L/min) 1 Oxygen Delivery Method Room Air Weight: 69 kg Body Mass Index (BMI) 28.7 Intake & Output: Intake and Output for Last 24 Hours 02/24/23 02/25/23 02/26/23 23:59 23:59 23:59 Intake Total 274.65 / 374.65 292.65 / 292.65 Output Total 2102 / 4204 2102 / 2102 Balance -1827.35 / -3829.35 -1809.35 / -1809.35 Lab / Micro Data Result Diagrams: 02/26/23 05:00 02/26/23 05:00 Labs: Laboratory Results - last 24 hr 02/25/23 10:30: Sodium 137, Potassium 4.7, Chloride 103, Carbon Dioxide 29.0, BUN 30 H, Creatinine 4.67 H, Estim Creat Clear Calc 9.06, Est GFR (MDRD) Af Amer 12 L, Est GFR (MDRD) Non-Af 10 L, BUN/Creatinine Ratio 6.4 L, Glucose 116 H, Calcium 9.5, Phosphorus 3.1, Magnesium 2.2, Albumin 2.9 L 02/25/23 15:15: APTT 227.1 H* 02/26/23 00:30: APTT 111.0 H* 02/26/23 05:00: WBC 6.0, RBC 2.56 L, Hgb 7.6 L, Hct 24.3 L, MCV 94.9 D, MCH 29.7, MCHC 31.3 L D, RDW Std Deviation 47.8 H, RDW Coeff of Dottie 14.0, Plt Count 278, MPV 8.9, Immature Gran % (Auto) 0.800, Neut % (Auto) 57.3, Lymph % (Auto) 32.3, [place] % (Auto) 8.8, Eos % (Auto) 0.5, Baso % (Auto) 0.3, Absolute Neuts (auto) 3.4, Absolute Lymphs (auto) 1.94, Nucleated RBC % 0.5 02/26/23 05:00: Sodium 138, Potassium 3.4 L, Chloride 105, Carbon Dioxide 28.0, Anion Gap 5, BUN 23 H, Creatinine 3.33 H, Estim Creat Clear Calc 12.71, Est GFR (MDRD) Af Amer 18 L, Est GFR (MDRD) Non-Af 15 L, BUN/Creatinine Ratio 6.9 L, Glucose 85, Calcium 7.8 L 02/26/23 05:00: Iron 58, TIBC 172 L, Iron Saturation 33.7, Ferritin 1503 H, Folate 4.80, TSH 0.80 02/26/23 06:45: APTT 78.3 H 02/26/23 08:58: Crossmatch See Detail Micro: Microbiology 02/24/23 10:15 Nasal Secretion SARS-CoV-2 & FLU Antigen (Rapid) - Final Radiography Diagnostic Testing: Radiology Impression Echocardiogram 02/25/23 07:04 Interpretation Summary The estimated ejection fraction is 55 %. No evidence for diastolic dysfunction. Moderate (2+) mitral valve insufficiency. Ordering Physician: Tommy Soto Referring Physician: Dru Cummins M.D. Performed By: Kia Muhammad RCS Physical Exam Narrative Alert and oriented x3, no apparent distress S1, S2, RRR Lung sounds clear anteriorly and posteriorly. On room air Abdomen soft, nontender No edema noted bilateral lower legs feet or arms Tunneled HD catheter dressing clean, dry, intact. Assessment & Plan Assessment/Plan (1) Acute respiratory failure with hypoxia: (2) Elevated troponin: (3) Hypertension, accelerated: (4) CAD (coronary artery disease): PLAN: Plan This is a 67-year-old female with past medical history significant for ESRD on hemodialysis 3 times weekly (TTS schedule), history of coronary artery disease who was admitted to the hospital for further evaluation/treatment of acute hypoxic respiratory failure secondary to pulmonary edema from CHF exacerbation. -ESRD on hemodialysis Friday schedule. Last dialyzed yesterday with 2.5 L UF. Also 1.7 L UF with CRRT. No acute indication for [employer] today. We will plan for dialysis tomorrow with fluid removal as patient/blood pressure tolerates. She is likely nearing her dry weight (patient reports she had some cramping after dialysis yesterday). Outpatient EDW had been 71 kg. Patient is typically compliant with dialysis and usually does not have large fluid gains between sessions. - Patient was hypertensive on admission and blood pressures have improved. Continue on amlodipine, carvedilol, hydralazine. -Patient has history of coronary artery disease, about 1 month ago patient was admitted to the hospital, found to have non-STEMI, she underwent left heart cath which showed multivessel disease involving LAD, RCA and circumflex, Echo showed Mildly dilated left ventricle, EF 50 to 55%, moderate mitral insufficiency and she was transferred to [facility] about a month ago for cardiothoracic evaluation for possible surgical candidate but was found to be high risk therefore patient is being treated with optimal medical goal management for her CAD. -Anemia of chronic disease; patient receives BHAVIN and iron at dialysis. We will monitor hemoglobin trends. -Elevated troponin 3758, cardiology following, possibly planning cath/PCI tomorrow. Patient is on heparin drip. -History of hyperphosphatemia on Renvela. Will monitor phosphorus levels periodically.
[2023-02-26 10:56] LABS: Vitamin B12 470 pg/mL (211-911)
--- NOTE | 2023-02-26 12:06 | DIALYSIS ---
Hemodialysis x2h 50m completed yesterday, 02/25/23, at 1620, ran on a 2K bath, UF 2500mL, tolerated well per HD NIKKI Shaikh
[2023-02-26 13:16] LABS: Partial Thromboplast Time 51.6 Seconds (24.1-36.2)
--- NOTE | 2023-02-26 14:13 | CASEMGMT ---
Discharge Planning Resumption of care HH referral sent to [facility] via [facility]. Neva Hernandez, Discharge Planning Asst.
--- NOTE | 2023-02-26 16:36 | PCM.PN.CARD ---
Subjective Subjective Patient is doing well from a cardiac standpoint. She did not want to have PCI today. Objective Data Vital Signs: Vital Signs Temp Pulse Resp BP Pulse Ox O2 Del Method O2 Flow Rate 97.7 F L 78 16 139/52 H 97 Room Air 1 02/26/23 15:36 02/26/23 15:36 02/26/23 15:36 02/26/23 15:36 02/26/23 15:36 02/26/23 15:36 02/25/23 15:00 FiO2 25 02/25/23 04:50 Oxygen Flow Rate (L/min) 1 Oxygen Delivery Method Room Air Weight: 152 lb 1.903 oz Body Mass Index (BMI) 28.7 Intake & Output: Intake and Output for Last 24 Hours 02/24/23 02/25/23 02/26/23 23:59 23:59 23:59 Intake Total 274.65 / 374.65 714.82 / 714.82 Output Total 4602 / 6704 2102 / 2102 Balance -4327.35 / -6329.35 -1387.18 / -1387.18 Lab / Micro Data Result Diagrams: 02/26/23 05:00 02/26/23 05:00 Labs: Laboratory Results - last 24 hr 02/26/23 00:30: APTT 111.0 H* 02/26/23 05:00: WBC 6.0, RBC 2.56 L, Hgb 7.6 L, Hct 24.3 L, MCV 94.9 D, MCH 29.7, MCHC 31.3 L D, RDW Std Deviation 47.8 H, RDW Coeff of Dottie 14.0, Plt Count 278, MPV 8.9, Immature Gran % (Auto) 0.800, Neut % (Auto) 57.3, Lymph % (Auto) 32.3, [place] % (Auto) 8.8, Eos % (Auto) 0.5, Baso % (Auto) 0.3, Absolute Neuts (auto) 3.4, Absolute Lymphs (auto) 1.94, Nucleated RBC % 0.5 02/26/23 05:00: Sodium 138, Potassium 3.4 L, Chloride 105, Carbon Dioxide 28.0, Anion Gap 5, BUN 23 H, Creatinine 3.33 H, Estim Creat Clear Calc 12.71, Est GFR (MDRD) Af Amer 18 L, Est GFR (MDRD) Non-Af 15 L, BUN/Creatinine Ratio 6.9 L, Glucose 85, Calcium 7.8 L 02/26/23 05:00: Iron 58, TIBC 172 L, Iron Saturation 33.7, Ferritin 1503 H, Folate 4.80, TSH 0.80 02/26/23 06:45: APTT 78.3 H 02/26/23 08:58: Vitamin B12 470 02/26/23 08:58: Blood Type A POSITIVE, Antibody Screen NEGATIVE, Crossmatch See Detail 02/26/23 12:55: APTT 51.6 H Cardiology Labs/Tests 02/26/23 00:30: APTT 111.0 H* 02/26/23 05:00: WBC 6.0, RBC 2.56 L, Hgb 7.6 L, Hct 24.3 L, MCV 94.9 D, MCH 29.7, MCHC 31.3 L D, Plt Count 278, MPV 8.9, Immature Gran % (Auto) 0.800, Neut % (Auto) 57.3, Lymph % (Auto) 32.3, [place] % (Auto) 8.8, Eos % (Auto) 0.5, Baso % (Auto) 0.3, Absolute Neuts (auto) 3.4, Nucleated RBC % 0.5 02/26/23 05:00: Sodium 138, Potassium 3.4 L, Chloride 105, Carbon Dioxide 28.0, Anion Gap 5, BUN 23 H, Creatinine 3.33 H, Est GFR (MDRD) Af Amer 18 L, Est GFR (MDRD) Non-Af 15 L, BUN/Creatinine Ratio 6.9 L, Glucose 85, Calcium 7.8 L 02/26/23 05:00: Iron 58, TIBC 172 L, Iron Saturation 33.7, Ferritin 1503 H 02/26/23 06:45: APTT 78.3 H 02/26/23 12:55: APTT 51.6 H Rhythm: EKG: ECHO: Stress Test: Cardiac Cath: PCI: CT Surgery: Holter monitor: EPS: PPM: CXR: Chest CT Scan: Physical Exam Const alert and oriented x3 HEENT normocephalic Eyes no scleral icterus Resp normal respiratory effort Assessment & Plan Assessment/Plan (1) (HFpEF) heart failure with preserved ejection fraction: QUALIFIERS: Heart failure chronicity: acute Qualified Code(s): I50.31 - Acute diastolic (congestive) heart failure PLAN: Improved after CRRT. Continue present management. 2D echo reviewed. EF is preserved. (2) Acute respiratory failure with hypoxia: PLAN: Appears to be secondary to CHF. (3) CAD (coronary artery disease): (4) NSTEMI, initial episode of care: PLAN: Patient has multivessel coronary artery disease. She was felt not to be a surgical candidate. The plan was to proceed with PCI of the LAD plus or minus RCA. Patient did not want the procedure today. I explained the risks and benefits of the procedure. Patient understands and will think about it but at this point does not want the procedure. Charges/Coding Visit Charges Inpatient E&M: 72614 Subs Hosp L2
[2023-02-26 17:28] LABS: Bedside Glucose 97 mg/dL (74-106)
[2023-02-26] MEDS: Atorvastatin Calcium 80 MG Tablet PO (20:39)
[2023-02-26] MEDS: Heparin Injection (Vial) 5,000 UNIT/ML VIAL 5000 UNIT SC (20:45)
[2023-02-27] VITALS (12 sets, daily range): BP systolic 145–165; BP diastolic 49–89; PULSE 74–90; RESP 15–20; TEMP 36.6–36.9; O2SAT 95–98; BMI 29.2
[2023-02-27 03:33] LABS: Absolute Lymphocyte Count 1.68 X10^3/uL (0.83-4.51); Absolute Neutrophil Count 2.8 X10^3/uL (2.0-7.7); Basophil# 0.04 X10^3/uL; Basophil% 0.7 % (0-1); Eosinophil# 0.08 X10^3/uL; Eosinophils% 1.5 % (0-5); Hematocrit 26.7 % (37-47); Hemoglobin 8.5 g/dL (12.0-15.0); Lymphocyte # 1.68 X10^3/ul (0.83-4.51); Lymphocyte % 30.8 % (19-41); Mean Corp Hgb Conc 31.8 g/dL (32-36); Mean Corpuscular Hgb 28.7 pg (27.0-32.0); Mean Corpuscular Volume 90.2 fL (81-99); Mean Platelet Vol. 8.4 fl (6.2-12.0); Monocyte# 0.68 X10^3/uL; Monocyte% 12.5 % (0-10); NRBC Flagged by Analyzer 0.9 % (0-5); Neutrophil % 51.2 % (47-70); Platelet Count 268 K/mm3 (150-450); RBC Distribution Width SD 52.1 fl (35.1-43.9); Red Blood Count 2.96 M/mm3 (4.2-5.4); White Blood Count 5.5 K/mm3 (4.4-11.0)
[2023-02-27 04:06] LABS: Anion Gap 8 (5-15); BUN 48 mg/dL (7-18); BUN/Creat Ratio 7.6 RATIO (10-20); Calcium,Total 8.8 mg/dL (8.5-10.1); Chloride 100 mmol/L (98-107); Creatinine, Serum 6.31 mg/dL (0.55-1.02); EST Glomerular Filtration Rate 7 mL/min (>60); Est Glom Filt Rate - Afr Amer 9 mL/min (>60); Estimated Creatinine Clearance 6.71 ml/min; Glucose 104 mg/dL (74-106); Potassium 3.9 mmol/L (3.5-5.1); Sodium Level 137 mmol/L (136-145)
[2023-02-27] MEDS: hydrALAZINE 25 MG Tablet PO ×3 (05:54→21:21)
[2023-02-27] MEDS: Acetaminophen 325 MG Tablet 650 MG PO ×2 (06:41→21:20)
--- NOTE | 2023-02-27 06:57 | PCM.PN.HOSP ---
Reason for Visit Reason for Visit: Diagnoses Anemia, unspecified (02/24/23) Essential (primary) hypertension (02/24/23) Non-ST elevation (NSTEMI) myocardial infarction (02/24/23) Atherosclerotic heart disease of [place] coronary artery without angina pectoris (02/24/23) Acute diastolic (congestive) heart failure (02/24/23) Acute respiratory failure with hypoxia (02/24/23) Other specified abnormalities of plasma proteins (02/24/23) Subjective Subjective feels good Objective Data Objective Data Vital Signs: Vital Signs Temp Pulse Resp BP Pulse Ox O2 Del Method O2 Flow Rate 36.6 C 83 20 H 165/84 H 98 Room Air 1 02/27/23 02:00 02/27/23 05:54 02/27/23 02:00 02/27/23 05:54 02/27/23 02:00 02/27/23 02:00 02/25/23 15:00 FiO2 25 02/25/23 04:50 Oxygen Flow Rate (L/min) 1 Oxygen Delivery Method Room Air Weight: 70.1 kg Body Mass Index (BMI) 29.2 Intake & Output: Intake and Output for Last 24 Hours 02/25/23 02/26/23 02/27/23 23:59 23:59 23:59 Intake Total 274.65 / 374.65 714.82 / 714.82 Output Total 4602 / 6704 2102 / 2102 0 / 0 Balance -4327.35 / -6329.35 -1387.18 / -1387.18 0 / 0 Lab / Micro Data Result Diagrams: 02/27/23 03:25 02/27/23 03:25 Labs: Laboratory Results - last 24 hr 02/26/23 05:00: Iron 58, TIBC 172 L, Iron Saturation 33.7, Ferritin 1503 H, Folate 4.80, TSH 0.80 02/26/23 06:45: APTT 78.3 H 02/26/23 08:58: Vitamin B12 470 02/26/23 08:58: Blood Type A POSITIVE, Antibody Screen NEGATIVE, Crossmatch See Detail 02/26/23 12:55: APTT 51.6 H 02/26/23 17:11: POC Glucose 97 02/27/23 03:25: WBC 5.5, RBC 2.96 L, Hgb 8.5 L, Hct 26.7 L, MCV 90.2, MCH 28.7, MCHC 31.8 L, RDW Std Deviation 52.1 H, RDW Coeff of Dottie 16.0 H, Plt Count 268, MPV 8.4, Immature Gran % (Auto) 3.300 H, Neut % (Auto) 51.2, Lymph % (Auto) 30.8, [place] % (Auto) 12.5 H, Eos % (Auto) 1.5, Baso % (Auto) 0.7, Absolute Neuts (auto) 2.8, Absolute Lymphs (auto) 1.68, Nucleated RBC % 0.9 02/27/23 03:25: Sodium 137, Potassium 3.9, Chloride 100, Carbon Dioxide 29.0, Anion Gap 8, BUN 48 H, Creatinine 6.31 H, Estim Creat Clear Calc 6.71, Est GFR (MDRD) Af Amer 9 L, Est GFR (MDRD) Non-Af 7 L, BUN/Creatinine Ratio 7.6 L, Glucose 104, Calcium 8.8 Micro: Microbiology 02/24/23 10:15 Nasal Secretion SARS-CoV-2 & FLU Antigen (Rapid) - Final Physical Exam Const alert and no apparent distress HEENT head/scalp atraumatic Resp normal respiratory effort and no retractions Cardio regular rate, regular rhythm, S1 normal heart sound and S2 normal heart sound GI normal to inspection, nondistended, normoactive bowel sounds, soft to palpation, non-tender and non-distended Assessment & Plan Assessment/Plan (1) Acute respiratory failure with hypoxia: PLAN: Resolved Admission pulse ox was 85% on 5 liters/m CXR personally reviewed and showed pulmonary vascularization and pleural effusions. Suspect secondary to pulmonary edema from CHF exacerbation Since weaned off BiPAP (2) (HFpEF) heart failure with preserved ejection fraction: QUALIFIERS: Heart failure chronicity: acute Qualified Code(s): I50.31 - Acute diastolic (congestive) heart failure PLAN: Suspect acute pulmonary edema secondary to acute on chronic diastolic congestive heart failure secondary to ischemic heart disease/hypertensive heart disease. Nephrology to assist with and help facilitate hemodialysis for fluid management. Was on CRRT, since converted back to HD (3) NSTEMI, initial episode of care: PLAN: Known triple-vessel disease. Was transferred to [facility] a few weeks ago however per patient, was deemed not to be surgical candidate and is just being treated with optimal medical management. We will continue with high intensity statin, aspirin and Plavix. Recheck echo. Troponins jump from 266 to 3758. Start heparin gtt. Cardiology consulted, tentative plan for PCI, however, the patient declined yesterday. Now agreable, plan for PCI on 02/28. (4) Anemia: PLAN: Suspect anemia of CD Iron 59, TIBC 172, Ferritin 1503, B12 pending, Folate 4.8 and TSH 0.8 02/26: Transfuse 1 unit to keep Hg greater than or equal to 8. 02/27: Hg 8.5 PLAN: Plan Chronic conditions: Possible COPD chest emphysema. Supplemental oxygen. Scheduled breathing treatments every 6 hours. ESRD: nephrology on consult for HD HTN:on carvedilol, hydralazine GERD: continue PPI VTE prophylaxis: SQ heparin Charges/Coding Visit Charges Inpatient E&M: 05920 Subs Hosp L2
[2023-02-27] MEDS: Ipratropium/Albuterol Sulfate 3 ML AMPUL.NEB INHALATION ×3 (07:23→19:30)
[2023-02-27] MEDS: Carvedilol 12.5 MG Tablet PO ×2 (08:48→16:58)
[2023-02-27] MEDS: Clopidogrel Bisulfate 75 MG Tablet PO (08:48)
[2023-02-27] MEDS: Aspirin E.C. 81 MG Tablet PO (08:48)
[2023-02-27] MEDS: amLODIPine 10 MG Tablet PO (08:49)
--- NOTE | 2023-02-27 09:05 | CASEMGMT ---
NIKKI LINARES NOTE: NIKKI LINARES to room. Pt resting in bed. Pt verifies she still wishes to return home @ d/c w/[facility] and feels she will be safe to return home. She was made aware [facility] will be notified when she d/c's home so care can be resumed. She voices understanding and denies having further d/c planning needs at this time. Abel MCCORMICK RN, CM
--- NOTE | 2023-02-27 09:19 | CASEMGMT ---
Discharge Planning Updated HH order sent to [facility]. Neva Hernandez, Discharge Planning Asst.
--- NOTE | 2023-02-27 11:09 | CASEMGMT ---
NIKKI LINARES NOTE: RN VIJAY spoke w/[facility] to inquire if someone from [facility] is working on getting a shower chair or glucometer. Nurse states there are no notes re: these items in their system. Abel CARTERN NIKKI CM
[2023-02-27] MEDS: Pantoprazole Sodium 40 MG Tablet PO (11:24)
[2023-02-27] MEDS: Multivitamins,Therapeutic Tablet 1 TABLET PO (11:24)
[2023-02-27] MEDS: SEVELAMER CARBONATE 800 MG TABLET PO ×2 (11:24→16:57)
[2023-02-27] MEDS: Heparin Injection (Vial) 5,000 UNIT/ML VIAL 5000 UNIT SC ×2 (11:25→21:26)
[2023-02-27] MEDS: Cinacalcet HCl 30 MG Tablet PO (11:25)
--- NOTE | 2023-02-27 11:28 | CASEMGMT ---
Social Work LU placed call to pt's [employer] Representative Shannon Keenakenzie Castrejon. Pt qualifies for aid services but there is no aid available to provide services to pt. Pts family provides for pt care needs. LU inquired about shower chair and glucometer and Shannon was unaware of these needs. [place] Montoya updated. Shannon inquiring about SNF placement, RNVIJAY spoke with pt this morning who continues to decline SNF and will return home with home health. LU will update CM when pt is discharged. ALBERT Goins
--- NOTE | 2023-02-27 13:31 | PN.RENAL_ITS ---
Subjective Subjective Sitting in chair eating lunch. No overnight events. Patient reports breathing better. On room air. Objective Data Objective Data Vital Signs: Vital Signs Temp Pulse Resp BP Pulse Ox O2 Del Method O2 Flow Rate 98.5 F 74 15 156/65 H 95 Room Air 1 02/27/23 08:30 02/27/23 12:44 02/27/23 12:44 02/27/23 08:30 02/27/23 11:30 02/27/23 08:30 02/25/23 15:00 FiO2 25 02/25/23 04:50 Oxygen Flow Rate (L/min) 1 Oxygen Delivery Method Room Air Weight: 70.1 kg Body Mass Index (BMI) 29.2 Intake & Output: Intake and Output for Last 24 Hours 02/25/23 02/26/23 02/27/23 23:59 23:59 23:59 Intake Total 274.65 / 374.65 714.82 / 714.82 Output Total 4602 / 6704 2102 / 2102 0 / 0 Balance -4327.35 / -6329.35 -1387.18 / -1387.18 0 / 0 Lab / Micro Data Result Diagrams: 02/27/23 03:25 02/27/23 03:25 Labs: Laboratory Results - last 24 hr 02/26/23 08:58: Crossmatch See Detail 02/26/23 17:11: POC Glucose 97 02/27/23 03:25: WBC 5.5, RBC 2.96 L, Hgb 8.5 L, Hct 26.7 L, MCV 90.2, MCH 28.7, MCHC 31.8 L, RDW Std Deviation 52.1 H, RDW Coeff of Dottie 16.0 H, Plt Count 268, MPV 8.4, Immature Gran % (Auto) 3.300 H, Neut % (Auto) 51.2, Lymph % (Auto) 30.8, [place] % (Auto) 12.5 H, Eos % (Auto) 1.5, Baso % (Auto) 0.7, Absolute Neuts (auto) 2.8, Absolute Lymphs (auto) 1.68, Nucleated RBC % 0.9 02/27/23 03:25: Sodium 137, Potassium 3.9, Chloride 100, Carbon Dioxide 29.0, Anion Gap 8, BUN 48 H, Creatinine 6.31 H, Estim Creat Clear Calc 6.71, Est GFR (MDRD) Af Amer 9 L, Est GFR (MDRD) Non-Af 7 L, BUN/Creatinine Ratio 7.6 L, Glucose 104, Calcium 8.8 Micro: Microbiology 02/24/23 10:15 Nasal Secretion SARS-CoV-2 & FLU Antigen (Rapid) - Final Physical Exam Narrative Alert and oriented x3, no apparent distress S1, S2, RRR Lung sounds clear anteriorly and posteriorly. On room air Abdomen soft, nontender No edema noted bilateral lower legs feet or arms Tunneled HD catheter dressing clean, dry, intact. Assessment & Plan Assessment/Plan (1) Acute respiratory failure with hypoxia: (2) Elevated troponin: (3) Hypertension, accelerated: (4) CAD (coronary artery disease): PLAN: Plan This is a 67-year-old female with past medical history significant for ESRD on hemodialysis 3 times weekly (TTS schedule), history of coronary artery disease who was admitted to the hospital for further evaluation/treatment of acute hypoxic respiratory failure secondary to pulmonary edema from CHF exacerbation. -ESRD on hemodialysis Friday schedule at [facility]. Dialyzed Friday with 2.5 L UF. Also 1.7 L UF with CRRT. To undergo dialysis today over 3.5 hours with fluid removal as patient/blood pressure tolerates. She is likely nearing her dry weight (patient had some cramping after dialysis Friday). Outpatient EDW had been 71 kg. Patient is typically compliant with dialysis and usually does not have large fluid gains between sessions. - Patient was hypertensive on admission and blood pressures have improved. Continue on amlodipine, carvedilol, hydralazine. -Patient has history of coronary artery disease, about 1 month ago patient was admitted to the hospital, found to have non-STEMI, she underwent left heart cath which showed multivessel disease involving LAD, RCA and circumflex, Echo showed Mildly dilated left ventricle, EF 50 to 55%, moderate mitral insufficiency and she was transferred to [facility] about a month ago for cardiothoracic evaluation for possible surgical candidate but was found to be high risk therefore patient is being treated with optimal medical goal management for her CAD. -Anemia of chronic disease; patient receives BHAVIN and iron at dialysis. We will monitor hemoglobin trends. -Non-STEMI; cardiology following. Patient declined cath today but now is in agreement, possibly planning cath/PCI tomorrow. -History of hyperphosphatemia on Renvela. Will monitor phosphorus levels periodically.
--- NOTE | 2023-02-27 17:47 | PCM.PN.CARD ---
Subjective Subjective Doing well. She denies any cardiac complaints. She is ambulating without any problems. Objective Data Vital Signs: Vital Signs Temp Pulse Resp BP Pulse Ox O2 Del Method O2 Flow Rate 97.9 F 78 20 H 145/55 H 98 Room Air 1 02/27/23 14:00 02/27/23 15:43 02/27/23 14:00 02/27/23 15:43 02/27/23 14:00 02/27/23 14:00 02/25/23 15:00 FiO2 25 02/25/23 04:50 Oxygen Flow Rate (L/min) 1 Oxygen Delivery Method Room Air Weight: 154 lb 8.705 oz Body Mass Index (BMI) 29.2 Intake & Output: Intake and Output for Last 24 Hours 02/25/23 02/26/23 02/27/23 23:59 23:59 23:59 Intake Total 274.65 / 374.65 714.82 / 714.82 480 / 480 Output Total 4602 / 6704 2102 / 2102 0 / 0 Balance -4327.35 / -6329.35 -1387.18 / -1387.18 480 / 480 Lab / Micro Data Result Diagrams: 02/27/23 03:25 02/27/23 03:25 Labs: Laboratory Results - last 24 hr 02/27/23 03:25: WBC 5.5, RBC 2.96 L, Hgb 8.5 L, Hct 26.7 L, MCV 90.2, MCH 28.7, MCHC 31.8 L, RDW Std Deviation 52.1 H, RDW Coeff of Dottie 16.0 H, Plt Count 268, MPV 8.4, Immature Gran % (Auto) 3.300 H, Neut % (Auto) 51.2, Lymph % (Auto) 30.8, [place] % (Auto) 12.5 H, Eos % (Auto) 1.5, Baso % (Auto) 0.7, Absolute Neuts (auto) 2.8, Absolute Lymphs (auto) 1.68, Nucleated RBC % 0.9 02/27/23 03:25: Sodium 137, Potassium 3.9, Chloride 100, Carbon Dioxide 29.0, Anion Gap 8, BUN 48 H, Creatinine 6.31 H, Estim Creat Clear Calc 6.71, Est GFR (MDRD) Af Amer 9 L, Est GFR (MDRD) Non-Af 7 L, BUN/Creatinine Ratio 7.6 L, Glucose 104, Calcium 8.8 Cardiology Labs/Tests 02/27/23 03:25: WBC 5.5, RBC 2.96 L, Hgb 8.5 L, Hct 26.7 L, MCV 90.2, MCH 28.7, MCHC 31.8 L, Plt Count 268, MPV 8.4, Immature Gran % (Auto) 3.300 H, Neut % (Auto) 51.2, Lymph % (Auto) 30.8, [place] % (Auto) 12.5 H, Eos % (Auto) 1.5, Baso % (Auto) 0.7, Absolute Neuts (auto) 2.8, Nucleated RBC % 0.9 02/27/23 03:25: Sodium 137, Potassium 3.9, Chloride 100, Carbon Dioxide 29.0, Anion Gap 8, BUN 48 H, Creatinine 6.31 H, Est GFR (MDRD) Af Amer 9 L, Est GFR (MDRD) Non-Af 7 L, BUN/Creatinine Ratio 7.6 L, Glucose 104, Calcium 8.8 Rhythm: EKG: ECHO: Stress Test: Cardiac Cath: PCI: CT Surgery: Holter monitor: EPS: PPM: CXR: Chest CT Scan: Physical Exam Const alert and oriented x3 HEENT normocephalic Eyes no scleral icterus Resp normal respiratory effort Assessment & Plan Assessment/Plan (1) (HFpEF) heart failure with preserved ejection fraction: QUALIFIERS: Heart failure chronicity: acute Qualified Code(s): I50.31 - Acute diastolic (congestive) heart failure PLAN: Improved after CRRT. Continue present management. 2D echo reviewed. EF is preserved. (2) Acute respiratory failure with hypoxia: PLAN: Appears to be secondary to CHF. (3) CAD (coronary artery disease): (4) NSTEMI, initial episode of care: PLAN: Patient has multivessel coronary artery disease. She was felt not to be a surgical candidate. The plan was to proceed with PCI of the LAD plus or minus RCA. Patient is now willing to undergo PCI. We will schedule this as an outpatient. If patient continues to do well overnight she can be discharged home tomorrow. Charges/Coding Visit Charges Inpatient E&M: 53597 Subs Hosp L2
--- NOTE | 2023-02-27 21:00 | DIALYSIS ---
Hemodialysis x 3 hours completed. At patient request and order Alex Carbone CNP HD reduced to 3 hours this day. CVC care per policy. UF 1400. Patient is stable and alert.
[2023-02-27] MEDS: Atorvastatin Calcium 80 MG Tablet PO (21:20)
[2023-02-28 03:41] VITALS: BP 159/65; PULSE 79; RESP 20; TEMP 36.6; O2SAT 97
[2023-02-28 03:42] LABS: Hematocrit 29.2 % (37-47); Hemoglobin 9.4 g/dL (12.0-15.0); Mean Corp Hgb Conc 32.2 g/dL (32-36); Mean Corpuscular Hgb 28.9 pg (27.0-32.0); Mean Corpuscular Volume 89.8 fL (81-99); Mean Platelet Vol. 9.2 fl (6.2-12.0); POSITIVE COUNT YES; POSITIVE MORPHOLOGY YES; Platelet Count 307 K/mm3 (150-450); RBC Distribution Width CV 15.4 % (11.6-14.6); RBC Distribution Width SD 49.9 fl (35.1-43.9); Red Blood Count 3.25 M/mm3 (4.2-5.4); White Blood Count 4.6 K/mm3 (4.4-11.0)
[2023-02-28 04:01] LABS: Differential Indicated MANUAL DIFF
[2023-02-28 04:05] LABS: Anion Gap 8 (5-15); BUN 25 mg/dL (7-18); BUN/Creat Ratio 5.6 RATIO (10-20); Chloride 99 mmol/L (98-107); Creatinine, Serum 4.45 mg/dL (0.55-1.02); EST Glomerular Filtration Rate 11 mL/min (>60); Est Glom Filt Rate - Afr Amer 13 mL/min (>60); Estimated Creatinine Clearance 9.51 ml/min; Glucose 75 mg/dL (74-106); Potassium 3.9 mmol/L (3.5-5.1); Sodium Level 135 mmol/L (136-145)
[2023-02-28 04:21] LABS: Eosinophil 2 % (0-5); Lymphocyte 29 % (19-41); Monocyte 7 % (0-10); Myelocyte 3 % (0-0); Neutrophil-Band 2 % (0-5); Neutrophil-Segmented 56 % (47-70); Promyelocyte 1 % (0-0)
[2023-02-28 04:23] LABS: Absolute Neutrophil Count 2.7 X10^3/uL (2.0-7.7)
[2023-02-28 04:24] LABS: Absolute Lymphocyte Count 1.35 X10^3/uL (0.83-4.51)
[2023-02-28 04:26] LABS: Anisocytosis 2+; Atypical Lymphocyte 1+ %; Total Cells Counted 100 (MANUAL DIFF)
[2023-02-28 06:00] VITALS: BMI 28.3
[2023-02-28 06:01] VITALS: BP 181/71; PULSE 81
[2023-02-28] MEDS: hydrALAZINE 25 MG Tablet PO (06:01)
[2023-02-28] MEDS: 0.9% Saline Lock 10 ML Syringe IV (06:02)
[2023-02-28 06:47] VITALS: PULSE 85; RESP 18; O2SAT 96
[2023-02-28] MEDS: Ipratropium/Albuterol Sulfate 3 ML AMPUL.NEB INHALATION (06:47)
--- NOTE | 2023-02-28 07:05 | PCM.PN.HOSP ---
Reason for Visit Reason for Visit: Diagnoses Anemia, unspecified (02/24/23) Essential (primary) hypertension (02/24/23) Non-ST elevation (NSTEMI) myocardial infarction (02/24/23) Atherosclerotic heart disease of [place] coronary artery without angina pectoris (02/24/23) Acute diastolic (congestive) heart failure (02/24/23) Acute respiratory failure with hypoxia (02/24/23) Other specified abnormalities of plasma proteins (02/24/23) Subjective Subjective Feels well. No issues overnight. Objective Data Objective Data Vital Signs: Vital Signs Temp Pulse Resp BP Pulse Ox O2 Del Method O2 Flow Rate 36.6 C 81 20 H 181/71 H 97 Room Air 1 02/28/23 03:41 02/28/23 06:01 02/28/23 03:41 02/28/23 06:01 02/28/23 03:41 02/28/23 03:41 02/25/23 15:00 FiO2 25 02/25/23 04:50 Oxygen Flow Rate (L/min) 1 Oxygen Delivery Method Room Air Weight: 68.2 kg Body Mass Index (BMI) 28.3 Intake & Output: Intake and Output for Last 24 Hours 02/26/23 02/27/23 02/28/23 23:59 23:59 23:59 Intake Total 714.82 / 714.82 480 / 720 480 / 480 Output Total 2102 / 2102 0 / 0 Balance -1387.18 / -1387.18 480 / 720 480 / 480 Lab / Micro Data Result Diagrams: 02/28/23 03:36 02/28/23 03:36 Labs: Laboratory Results - last 24 hr 02/28/23 03:36: WBC 4.6, RBC 3.25 L, Hgb 9.4 L, Hct 29.2 L, MCV 89.8, MCH 28.9, MCHC 32.2, RDW Std Deviation 49.9 H, RDW Coeff of Dottie 15.4 H, Plt Count 307, MPV 9.2, Neut % (Auto) Not Reportable, Absolute Neuts (auto) 2.7, Absolute Lymphs (auto) 1.35, Total Counted 100, Neutrophils % (Manual) 56, Band Neutrophils % 2, Lymphocytes % (Manual) 29, Monocytes % (Manual) 7, Eosinophils % (Manual) 2, Myelocytes % 3 H, Promyelocytes % 1 H, Diff Path Review May foll, Atypical Lymphocytes 1+, Anisocytosis 2+ 02/28/23 03:36: Sodium 135 L, Potassium 3.9, Chloride 99, Carbon Dioxide 28.0, Anion Gap 8, BUN 25 H, Creatinine 4.45 H, Estim Creat Clear Calc 9.51, Est GFR (MDRD) Af Amer 13 L, Est GFR (MDRD) Non-Af 11 L, BUN/Creatinine Ratio 5.6 L, Glucose 75, Calcium 9.0 Micro: Microbiology 02/24/23 10:15 Nasal Secretion SARS-CoV-2 & FLU Antigen (Rapid) - Final Physical Exam Const alert and no apparent distress HEENT head/scalp atraumatic and moist oral mucous membranes Resp normal respiratory effort, no retractions, no use of accessory muscles and clear to auscultation bilaterally Cardio regular rate, regular rhythm, S1 normal heart sound and S2 normal heart sound Assessment & Plan Assessment/Plan (1) Acute respiratory failure with hypoxia: PLAN: Resolved Admission pulse ox was 85% on 5 liters/m CXR personally reviewed and showed pulmonary vascularization and pleural effusions. Suspect secondary to pulmonary edema from CHF exacerbation Since weaned off BiPAP (2) (HFpEF) heart failure with preserved ejection fraction: QUALIFIERS: Heart failure chronicity: acute Qualified Code(s): I50.31 - Acute diastolic (congestive) heart failure PLAN: Suspect acute pulmonary edema secondary to acute on chronic diastolic congestive heart failure secondary to ischemic heart disease/hypertensive heart disease. Nephrology to assist with and help facilitate hemodialysis for fluid management. Was on CRRT, since converted back to HD (3) NSTEMI, initial episode of care: PLAN: Known triple-vessel disease. Was transferred to [facility] a few weeks ago however per patient, was deemed not to be surgical candidate and is just being treated with optimal medical management. We will continue with high intensity statin, aspirin and Plavix. Recheck echo. Troponins jump from 266 to 3758. Start heparin gtt. Cardiology consulted, tentative plan for PCI, however, plan was started patient have a PCI, however due to an injury, Dr. Tejada would be unable to completed at this time. Given that she has been otherwise stable, the plan is for her to have outpatient follow-up and have this done at a later point. (4) Anemia: PLAN: Suspect anemia of CD Iron 59, TIBC 172, Ferritin 1503, B12 pending, Folate 4.8 and TSH 0.8 02/26: Hg 7.6. Transfuse 1 unit to keep Hg greater than or equal to 8. 02/27: Hg 8.5 02/28: Hg 9.4 PLAN: Plan Chronic conditions: Possible COPD chest emphysema. Supplemental oxygen. Scheduled breathing treatments every 6 hours. ESRD: nephrology on consult for HD HTN:on carvedilol, hydralazine GERD: continue PPI VTE prophylaxis: SQ heparin
[2023-02-28 07:46] VITALS: BP 175/60; PULSE 85; RESP 18; TEMP 37.1; O2SAT 98
[2023-02-28] MEDS: SEVELAMER CARBONATE 800 MG TABLET PO ×2 (07:50→11:47)
[2023-02-28] MEDS: Carvedilol 12.5 MG Tablet PO (07:50)
[2023-02-28] MEDS: Multivitamins,Therapeutic Tablet 1 TABLET PO (07:50)
[2023-02-28 09:31] LABS: Pathologist Review Reviewed
--- NOTE | 2023-02-28 10:24 | HP.PCM.HOS_ITS ---
HPI - General General Date of Admission: 02/24/23 Chief Complaint: Shortness of breath and exertional dyspnea of 2 days duration HPI Narrative NATALI KINSEY, is a 67 F who presents [facility] Medical History (Updated 02/25/23 @ 10:16 by ART Espinoza) Acute and chronic respiratory failure with hypoxia Ambulates with cane Anemia Asthma Cardiac dysrhythmia, unspecified Chest pain Chronic kidney disease, stage V requiring chronic dialysis Chronic progressive renal failure Diabetes Dialysis patient Easy bruising Edentulous End-stage renal disease on hemodialysis ESRD (end stage renal disease) on dialysis Former smoker Gastric reflux GI bleed Hepatitis High cholesterol History of hypertension Hypertension Hypertension Hyponatremia Kidney disease Leg cramps NSTEMI, initial episode of care On home oxygen therapy PONV (postoperative nausea and vomiting) Post-menopausal Rheumatoid arthritis Shortness of breath on exertion SOB (shortness of breath) Stroke Substance abuse TIA (transient ischemic attack) Type II diabetes mellitus Wears glasses Home Medications carvedilol 12.5 mg tablet (Coreg) 12.5 mg PO BID HEART 11/28/20 [History Last Taken 02/23/23] calcium acetate(phosphat bind) 667 mg capsule 2 cap PO TID SUPPLEMENT 03/07/22 [History Last Taken 02/23/23] amlodipine 10 mg tablet 10 mg PO DAILY BLOOD PRESSURE 09/19/22 [History Last Taken 02/23/23] cinacalcet 30 mg tablet 30 mg PO DAILY DIALYSIS 09/19/22 [History Last Taken 02/23/23] hydralazine 25 mg tablet 25 mg PO TID BLOOD PRESSURE 09/19/22 [History Last Taken 02/23/23] multivitamin (Daily-Caron tablet) 1 tab PO DAILY HEALTH MAINTENANCE 09/19/22 [History Last Taken 02/23/23] sevelamer carbonate 800 mg tablet 800 mg PO TID DIALYSIS 01/28/23 [History Last Taken 02/23/23] atorvastatin 80 mg tablet 80 mg PO QHS CHOLESTEROL #90 tabs 02/04/23 [Rx Last Taken 02/23/23] clopidogrel 75 mg tablet 75 mg PO DAILY BLOOD THINNER #90 tabs 02/04/23 [Rx Last Taken 02/23/23] aspirin 81 mg tablet,delayed release 81 mg PO DAILY #90 tabs 02/18/23 [Rx Last Taken 02/23/23] lansoprazole 30 mg capsule,delayed release 30 mg PO DAILY GERD 02/24/23 [History Last Taken 02/23/23] Allergy/AdvReac Type Severity Reaction Status Date / Time ceftriaxone Allergy Severe Rash Verified 02/24/23 09:58 vancomycin Allergy Severe Rash Verified 02/24/23 09:58 Penicillins Allergy Swelling Verified 02/24/23 09:58 oxycodone HCl [From Percocet] AdvReac Intermediate Itching Verified 02/24/23 09:58 Family History Mother Hypertension Emphysema/COPD Sister Hypertension Surgical History H/O: hysterectomy History of arteriovenostomy for renal dialysis History of eye surgery History of surgery knee scope S/P arteriovenous (AV) fistula creation Social History Smoking Status: Former smoker alcohol intake: current details: 1 per week substance use type: does not use what type of physical activity do you participate in: none Vital Signs Vital Signs Vital Signs: 02/27/23 11:02 02/27/23 11:30 02/27/23 12:44 Temperature Temperature Source Pulse Rate 74 Respiratory Rate 15 Respiratory Pattern Normal Blood Pressure Blood Pressure Mean Blood Pressure Source Blood Pressure Position Blood Pressure Location Pulse Ox 97 95 Oxygen Delivery Method 02/27/23 15:43 02/27/23 14:00 02/27/23 14:00 Temperature 97.9 F Temperature Source Temporal Pulse Rate 78 77 Respiratory Rate 20 H Respiratory Pattern Blood Pressure 145/55 H 145/55 H Blood Pressure Mean 85 Blood Pressure Source Monitor Blood Pressure Position Semi-Fowlers Blood Pressure Location Right Arm Pulse Ox 98 Oxygen Delivery Method Room Air Room Air 02/27/23 19:30 02/27/23 21:21 02/27/23 21:30 Temperature 98 F Temperature Source Temporal Pulse Rate 90 88 90 Respiratory Rate 18 19 H Respiratory Pattern Normal Blood Pressure 158/49 H 158/89 H Blood Pressure Mean 112 Blood Pressure Source Blood Pressure Position Blood Pressure Location Pulse Ox 95 Oxygen Delivery Method Room Air 02/27/23 21:30 02/28/23 03:41 02/28/23 06:01 Temperature 97.8 F Temperature Source Temporal Pulse Rate 79 81 Respiratory Rate 20 H Respiratory Pattern Blood Pressure 159/65 H 181/71 H Blood Pressure Mean 96 Blood Pressure Source Blood Pressure Position Blood Pressure Location Pulse Ox 97 Oxygen Delivery Method Room Air Room Air 02/28/23 07:46 02/28/23 07:45 Temperature 98.7 F Temperature Source Temporal Pulse Rate 85 Respiratory Rate 18 Respiratory Pattern Blood Pressure 175/60 H Blood Pressure Mean 98 Blood Pressure Source Monitor Blood Pressure Position Semi-Fowlers Blood Pressure Location Right Arm Pulse Ox 98 Oxygen Delivery Method Room Air Room Air Weight Weight: 68.2 kg Body Mass Index (BMI) 28.3 Results Lab / Micro Data Result Diagrams: 02/28/23 03:36 02/28/23 03:36 Labs: Laboratory Results - last 24 hr 02/28/23 03:36: WBC 4.6, RBC 3.25 L, Hgb 9.4 L, Hct 29.2 L, MCV 89.8, MCH 28.9, MCHC 32.2, RDW Std Deviation 49.9 H, RDW Coeff of Dottie 15.4 H, Plt Count 307, MPV 9.2, Neut % (Auto) Not Reportable, Absolute Neuts (auto) 2.7, Absolute Lymphs (auto) 1.35, Total Counted 100, Neutrophils % (Manual) 56, Band Neutrophils % 2, Lymphocytes % (Manual) 29, Monocytes % (Manual) 7, Eosinophils % (Manual) 2, Myelocytes % 3 H, Promyelocytes % 1 H, Diff Path Review Reviewed, Atypical Lymphocytes 1+, Anisocytosis 2+ 02/28/23 03:36: Sodium 135 L, Potassium 3.9, Chloride 99, Carbon Dioxide 28.0, Anion Gap 8, BUN 25 H, Creatinine 4.45 H, Estim Creat Clear Calc 9.51, Est GFR (MDRD) Af Amer 13 L, Est GFR (MDRD) Non-Af 11 L, BUN/Creatinine Ratio 5.6 L, Glucose 75, Calcium 9.0
[2023-02-28 10:52] VITALS: BP 158/45; PULSE 89; RESP 18; O2SAT 99
[2023-02-28] MEDS: Cinacalcet HCl 30 MG Tablet PO (10:52)
[2023-02-28] MEDS: Aspirin E.C. 81 MG Tablet PO (10:52)
[2023-02-28] MEDS: Clopidogrel Bisulfate 75 MG Tablet PO (10:52)
[2023-02-28] MEDS: Pantoprazole Sodium 40 MG Tablet PO (10:52)
[2023-02-28] MEDS: Heparin Injection (Vial) 5,000 UNIT/ML VIAL 5000 UNIT SC (10:52)
[2023-02-28] MEDS: amLODIPine 10 MG Tablet PO (10:52)
[2023-02-28 10:53] VITALS: BP 158/45; PULSE 88; RESP 16; O2SAT 98
--- NOTE | 2023-02-28 10:53 | DCINST_ITS ---
Discharge Instructions Diet Discharge Diet: Renal Diet Dressing / Incision Call your doctor if you observe: Fever of 101 or Higher, Shortness of breath, Swelling in the ankles and Chest pain Follow Up Care Test Results: Test results from this visit will be discussed in further detail at your follow- up appointment, if applicable. Discharge Plan Admission Admit Date/Time: 02/24/23 15:47 Primary Reason for Your Visit: CHF exacerbation Attending Provider: Tommy Soto Primary Care Provider: Prince Cummins Consulting Providers: Allen Mendez ; Trevor Tejada ; Jelani Allison Instructions Additional Instructions / Restrictions: You presented with respiratory failure due to volume overload. He did well with dialysis. Did have a heart attack related with her underlying heart disease and due to the stress of your breathing difficulties. You will need to follow-up with cardiology to have evaluation of your vessels and stent placement as outpatient. Follow-up with dialysis at your normal routine. Discharge Orders/Prescriptions Prescriptions: Continued carvedilol [Coreg] 12.5 mg tablet 12.5 mg PO BID calcium acetate(phosphat bind) 667 mg capsule 2 cap PO TID cinacalcet 30 mg Tablet 30 mg PO DAILY multivitamin [Daily-Caron] Tablet 1 tab PO DAILY hydralazine 25 mg tablet 25 mg PO TID amlodipine 10 mg tablet 10 mg PO DAILY sevelamer carbonate 800 mg tablet 800 mg PO TID lansoprazole 30 mg capsule,delayed release(DR/EC) 30 mg PO DAILY Label Comments: TAKE 1 CAPSULE BY MOUTH ONCE A DAY atorvastatin 80 mg tablet 80 mg PO QHS Qty: 90 1RF clopidogrel 75 mg tablet 75 mg PO DAILY Qty: 90 1RF aspirin 81 mg tablet,delayed release (DR/EC) 81 mg PO DAILY Qty: 90 0RF Referrals / Follow Up: Prince Cummins, [Primary Care Provider] - Disposition Disposition (needs filled in before D/C Order can be placed): Home, Self Care
--- NOTE | 2023-02-28 10:56 | DS.PCM_ITS ---
Providers Date of Admission: 02/24/23 Primary Care Physician: Dr. Prince Cummins, DO Consultations 02/24/23 15:46 Consult: Nephrology Routine Consulting Provider: Jelani Allison Reason for Consult: ESRD, pulmonary edema due to CHF, needs urgent dialysis EMERGENT Consult: Yes Notified: Yes Date Notified: 02/24/23 Time Notified: 18:06 Method of Notification: Verbal 02/25/23 08:08 Consult: Cardiology Routine Consulting Provider: Trevor Tejada Reason for Consult: NSTEMI EMERGENT Consult: No Notified: Yes Date Notified: 02/25/23 Time Notified: 08:09 Method of Notification: Text Reason For Visit: ACUTE PULMONARY EDEMA Diagnosis Discharge Diagnosis (1) Acute respiratory failure with hypoxia: Status: Acute Code(s): J96.01 - Acute respiratory failure with hypoxia Plan: Resolved Admission pulse ox was 85% on 5 liters/m CXR personally reviewed and showed pulmonary vascularization and pleural effusions. Suspect secondary to pulmonary edema from CHF exacerbation Since weaned off BiPAP (2) (HFpEF) heart failure with preserved ejection fraction: Status: Acute Code(s): I50.30 - Unspecified diastolic (congestive) heart failure Qualifiers: Heart failure chronicity: acute Qualified Code(s): I50.31 - Acute diastolic (congestive) heart failure Plan: Suspect acute pulmonary edema secondary to acute on chronic diastolic congestive heart failure secondary to ischemic heart disease/hypertensive heart disease. Nephrology to assist with and help facilitate hemodialysis for fluid management. Was on CRRT, since converted back to HD (3) NSTEMI, initial episode of care: Status: Acute Code(s): I21.4 - Non-ST elevation (NSTEMI) myocardial infarction Plan: Known triple-vessel disease. Was transferred to [facility] a few weeks ago however per patient, was deemed not to be surgical candidate and is just being treated with optimal medical management. We will continue with high intensity statin, aspirin and Plavix. Recheck echo. Troponins jump from 266 to 3758. Start heparin gtt. Cardiology consulted, tentative plan for PCI, however, plan was started patient have a PCI, however due to an injury, Dr. Tejada would be unable to completed at this time. Given that she has been otherwise stable, the plan is for her to have outpatient follow-up and have this done at a later point. (4) Anemia: Status: Acute Code(s): D64.9 - Anemia, unspecified Plan: Suspect anemia of CD Iron 59, TIBC 172, Ferritin 1503, B12 pending, Folate 4.8 and TSH 0.8 02/26: Hg 7.6. Transfuse 1 unit to keep Hg greater than or equal to 8. /15: Hg 8.5 02/28: Hg 9.4 Plan Chronic conditions: * Possible COPD chest emphysema. Supplemental oxygen. Scheduled breathing treatments every 6 hours. * ESRD: nephrology on consult for HD * HTN:on carvedilol, hydralazine * GERD: continue PPI VTE prophylaxis: SQ heparin Medications at Discharge Home Medications carvedilol 12.5 mg tablet (Coreg) 12.5 mg PO BID HEART 11/28/20 calcium acetate(phosphat bind) 667 mg capsule 2 cap PO TID SUPPLEMENT 03/07/22 amlodipine 10 mg tablet 10 mg PO DAILY BLOOD PRESSURE 09/19/22 cinacalcet 30 mg tablet 30 mg PO DAILY DIALYSIS 09/19/22 hydralazine 25 mg tablet 25 mg PO TID BLOOD PRESSURE 09/19/22 multivitamin (Daily-Caron tablet) 1 tab PO DAILY HEALTH MAINTENANCE 09/19/22 sevelamer carbonate 800 mg tablet 800 mg PO TID DIALYSIS 01/28/23 atorvastatin 80 mg tablet 80 mg PO QHS CHOLESTEROL #90 tabs 02/04/23 clopidogrel 75 mg tablet 75 mg PO DAILY BLOOD THINNER #90 tabs 02/04/23 aspirin 81 mg tablet,delayed release 81 mg PO DAILY #90 tabs 02/18/23 lansoprazole 30 mg capsule,delayed release 30 mg PO DAILY GERD 02/24/23 Hospital Course Procedures Dialysis Summary of Care Provided Minutes Spent on Discharge: 32 Hospital Course: Patient presents with hypoxic respiratory failure secondary to CHF exacerbation and volume overload. Patient was started on CRRT and did well with that and was actually taken off oxygen and continue with her hemodialysis. While she was here she had a myocardial infarction. Patient has a known history of ALTE vessel coronary disease. Patient had been transferred previously to [facility] but the plan was for outpatient management. Did consult cardiology because of the myocardial infarction that she sustained here. Aware that she was not a candidate for CABG. They are planning on doing PCI here. Patient initially declined but when she did agree again plan was for that to be performed on the . Unfortunately, Dr. Tejada, sustained a injury would n ot be able to perform that in the hospital. Patient will need to follow-up with cardiology as outpatient to have that evaluated. Weight / BMI Weight Weight: 68.2 kg Body Mass Index (BMI) 28.3 ABG / Lab / Microbiology Data Result Diagrams: 02/28/23 03:36 02/28/23 03:36 Laboratory: Laboratory Results - last 24 hr 02/28/23 03:36: WBC 4.6, RBC 3.25 L, Hgb 9.4 L, Hct 29.2 L, MCV 89.8, MCH 28.9, MCHC 32.2, RDW Std Deviation 49.9 H, RDW Coeff of Dottie 15.4 H, Plt Count 307, MPV 9.2, Neut % (Auto) Not Reportable, Absolute Neuts (auto) 2.7, Absolute Lymphs (auto) 1.35, Total Counted 100, Neutrophils % (Manual) 56, Band Neutrophils % 2, Lymphocytes % (Manual) 29, Monocytes % (Manual) 7, Eosinophils % (Manual) 2, Myelocytes % 3 H, Promyelocytes % 1 H, Diff Path Review Reviewed, Atypical Lymphocytes 1+, Anisocytosis 2+ 02/28/23 03:36: Sodium 135 L, Potassium 3.9, Chloride 99, Carbon Dioxide 28.0, Anion Gap 8, BUN 25 H, Creatinine 4.45 H, Estim Creat Clear Calc 9.51, Est GFR (MDRD) Af Amer 13 L, Est GFR (MDRD) Non-Af 11 L, BUN/Creatinine Ratio 5.6 L, Glucose 75, Calcium 9.0 Microbiology: Microbiology 02/24/23 10:15 Nasal Secretion SARS-CoV-2 & FLU Antigen (Rapid) - Final D/C Instructions Discharge Diet: Renal Diet Call your doctor if you observe: Fever of 101 or Higher, Shortness of breath, Swelling in the ankles and Chest pain Meaningful Use Info Meaningful Use Diagnoses (Choose all that apply): AMI and CHF AMI/Post PCI/Angioplasty Aspirin given w/in 24hrs of arrival?: Yes ASA at discharge?: Yes Antiplatelet Therapy at Discharge:: Yes Statins at discharge?: Yes Rufino/ARB at discharge?: No Reason Rufino/ARB not ordered:: Worsening renal dysfunctn Beta Filomena at discharge?: Yes Done w/ Acute [place] measure.: Yes Documented LVEF (%): 55 CHF RUFINO/ARB ordered at discharge?: No Reason RUFINO/ARB not ordered?: Worsening renal disease Documented LVEF (%): 55 Discharge Plan Admission Admit Date/Time: 02/24/23 15:47 Primary Reason for Your Visit: CHF exacerbation Attending Provider: Tommy Soto Primary Care Provider: Prince Cummins Consulting Providers: Allen Mendez ; Trevor Tejada ; Jelani Allison Instructions Additional Instructions / Restrictions: You presented with respiratory failure due to volume overload. He did well with dialysis. Did have a heart attack related with her underlying heart disease and due to the stress of your breathing difficulties. You will need to follow-up [facility] cardiology to have evaluation of your vessels and stent placement as outpatient. Follow-up with dialysis at your normal routine. Discharge Orders/Prescriptions Prescriptions: Continued carvedilol [Coreg] 12.5 mg tablet 12.5 mg PO BID calcium acetate(phosphat bind) 667 mg capsule 2 cap PO TID cinacalcet 30 mg Tablet 30 mg PO DAILY multivitamin [Daily-Caron] Tablet 1 tab PO DAILY hydralazine 25 mg tablet 25 mg PO TID amlodipine 10 mg tablet 10 mg PO DAILY sevelamer carbonate 800 mg tablet 800 mg PO TID lansoprazole 30 mg capsule,delayed release(DR/EC) 30 mg PO DAILY Label Comments: TAKE 1 CAPSULE BY MOUTH ONCE A DAY atorvastatin 80 mg tablet 80 mg PO QHS Qty: 90 1RF clopidogrel 75 mg tablet 75 mg PO DAILY Qty: 90 1RF aspirin 81 mg tablet,delayed release (DR/EC) 81 mg PO DAILY Qty: 90 0RF Referrals / Follow Up: Prince Cummins DO [Primary Care Provider] - Within 2 Weeks [facility] [Provider Group] - Within 2 Weeks Disposition Disposition (needs filled in before D/C Order can be placed): Home, Self Care Charges/Coding Visit Charges Inpatient E&M: 52727 Disch Hosp >30min
--- NOTE | 2023-02-28 11:28 | CASEMGMT ---
Discharge Planning Discharge instructions and summary sent to [facility] via [facility] with discharge date. Neva Hernandez, Discharge Planning Asst.
--- NOTE | 2023-02-28 11:38 | PCM.PN.REN ---
Subjective Subjective Following for ESRD. The patient denies chest pain, shortness of breath at rest, or nausea. Her planned heart catheterization was canceled for today. Objective Data Objective Data Vital Signs: Vital Signs Temp Pulse Resp BP Pulse Ox O2 Del Method O2 Flow Rate 98.7 F 89 18 158/45 H 99 Room Air 1 02/28/23 07:46 02/28/23 10:52 02/28/23 10:52 02/28/23 10:52 02/28/23 10:52 02/28/23 10:52 02/25/23 15:00 FiO2 25 02/25/23 04:50 Oxygen Flow Rate (L/min) 1 Oxygen Delivery Method Room Air Weight: 68.2 kg Body Mass Index (BMI) 28.3 Intake & Output: Intake and Output for Last 24 Hours 02/26/23 02/27/23 02/28/23 23:59 23:59 23:59 Intake Total 714.82 / 714.82 480 / 720 480 / 480 Output Total 2102 / 2102 0 / 0 Balance -1387.18 / -1387.18 480 / 720 480 / 480 Lab / Micro Data Result Diagrams: 02/28/23 03:36 02/28/23 03:36 Labs: Laboratory Results - last 24 hr 02/28/23 03:36: WBC 4.6, RBC 3.25 L, Hgb 9.4 L, Hct 29.2 L, MCV 89.8, MCH 28.9, MCHC 32.2, RDW Std Deviation 49.9 H, RDW Coeff of Dottie 15.4 H, Plt Count 307, MPV 9.2, Neut % (Auto) Not Reportable, Absolute Neuts (auto) 2.7, Absolute Lymphs (auto) 1.35, Total Counted 100, Neutrophils % (Manual) 56, Band Neutrophils % 2, Lymphocytes % (Manual) 29, Monocytes % (Manual) 7, Eosinophils % (Manual) 2, Myelocytes % 3 H, Promyelocytes % 1 H, Diff Path Review Reviewed, Atypical Lymphocytes 1+, Anisocytosis 2+ 02/28/23 03:36: Sodium 135 L, Potassium 3.9, Chloride 99, Carbon Dioxide 28.0, Anion Gap 8, BUN 25 H, Creatinine 4.45 H, Estim Creat Clear Calc 9.51, Est GFR (MDRD) Af Amer 13 L, Est GFR (MDRD) Non-Af 11 L, BUN/Creatinine Ratio 5.6 L, Glucose 75, Calcium 9.0 Micro: Microbiology 02/24/23 10:15 Nasal Secretion SARS-CoV-2 & FLU Antigen (Rapid) - Final Physical Exam Narrative Alert and oriented x3, no apparent distress S1, S2, RRR Lung sounds clear anteriorly and posteriorly. On room air Abdomen soft, nontender No edema noted bilateral lower legs feet or arms Tunneled HD catheter dressing clean, dry, intact. Assessment & Plan Assessment/Plan (1) Acute respiratory failure with hypoxia: (2) Elevated troponin: (3) Hypertension, accelerated: (4) CAD (coronary artery disease): PLAN: Plan This is a 67-year-old female with past medical history significant for ESRD on hemodialysis 3 times weekly (TTS schedule), history of coronary artery disease who was admitted to the hospital for further evaluation/treatment of acute hypoxic respiratory failure secondary to pulmonary edema from CHF exacerbation. -ESRD on hemodialysis Friday schedule at [facility]. Dialyzed Friday with 2.5 L UF. Also 1.7 L UF with CRRT. To undergo dialysis today over 3.5 hours with fluid removal as patient/blood pressure tolerates. She is likely nearing her dry weight (patient had some cramping after dialysis Friday). Outpatient EDW had been 71 kg. Patient is typically compliant with dialysis and usually does not have large fluid gains between sessions. - Patient was hypertensive on admission and blood pressures have improved. Continue on amlodipine, carvedilol, hydralazine. -Patient has history of coronary artery disease, about 1 month ago patient was admitted to the hospital, found to have non-STEMI, she underwent left heart cath which showed multivessel disease involving LAD, RCA and circumflex, Echo showed Mildly dilated left ventricle, EF 50 to 55%, moderate mitral insufficiency and she was transferred to [facility] about a month ago for cardiothoracic evaluation for possible surgical candidate but was found to be high risk therefore patient is being treated with optimal medical goal management for her CAD. From nephrology standpoint, the patient could be discharged today since cardiac catheterization has been canceled. She should follow-up at her outpatient dialysis unit tomorrow as scheduled. I reemphasized the importance of attending dialysis to keep the excess fluid off to prevent recurrent admission for heart failure. -Anemia of chronic disease; patient receives BHAVIN and iron at dialysis. We will monitor hemoglobin trends. -Non-STEMI; cardiology following. Patient declined cath today but now is in agreement, possibly planning cath/PCI tomorrow. -History of hyperphosphatemia on Renvela. Will monitor phosphorus levels periodically. Nephrology plan discussed with Dr. Soto.
--- NOTE | 2023-02-28 11:42 | CASEMGMT ---
Social Work Discharge instructions faxed to Shannon Castrejon, [facility]. TOPHER KatzW
--- NOTE | 2023-02-28 11:48 | CASEMGMT ---
Addendum entered by Jan Bae 02/28/23 13:22: Scripts for both shower chair and for glucometer obtained from Dr Soto and provided to pt. NIKKI LINARES advised her to f/u w/her CM through [facility] or [facility] if she has any difficulty obtaining these items. She voices understanding. Addendum entered by Jan Bae 02/28/23 12:00: Pt states she does have a pulse ox @ home. Original Note: NIKKI LINARES NOTE: Pt being discharged home. NIKKI LINARES to room. Pt states feels safe to return home. Made aware [facility] would be notified of her discharge and she voices appreciation. Pt again informed NIKKI LINARES that her CM Klarissa is working on getting her a shower chair. NIKKI LINARES informed pt that her CM has stated she is was not working on this and that this RN CM can check w/Dr Soto about getting a script for her. She voices appreciation. Pt also states she still does not have a glucometer and that her PCP wanted her to check her BS's. Pt informed NIKKI LINARES can check w/Dr Soto about getting a script for a glucometer as well. She voices appreciation and states does not have any other discharge needs or concerns. She states either her GS or GD will be taking her home. Abel MCCORMICK RN, CM
== END 2023-02-28 13:30 | disposition home or self-care (01) | DRG 194 ==
LOC: ED 10:36 → PCU 15:56 → ICU 17:36
PROVIDERS: Internal Medicine Nephrology; Admitting Provider Internal Medicine; Emergency Provider Emergency Medicine; PCP Family Medicine
DX: I13.2 Hypertensive heart and chronic kidney disease with heart failure and with stage 5 chronic kidney disease, or end stage renal disease (principal); J96.21 Acute and chronic respiratory failure with hypoxia; I21.4 Non-ST elevation (NSTEMI) myocardial infarction; N18.6 End stage renal disease; D63.1 Anemia in chronic kidney disease; E83.39 Other disorders of phosphorus metabolism; I50.33 Acute on chronic diastolic (congestive) heart failure; J81.0 Acute pulmonary edema; J43.9 Emphysema, unspecified; Z99.2 Dependence on renal dialysis; I22.2 Subsequent non-ST elevation (NSTEMI) myocardial infarction; E78.00 Pure hypercholesterolemia, unspecified; I25.10 Atherosclerotic heart disease of native coronary artery without angina pectoris; K21.9 Gastro-esophageal reflux disease without esophagitis; Z53.8 Procedure and treatment not carried out for other reasons; Z99.81 Dependence on supplemental oxygen; Z79.02 Long term (current) use of antithrombotics/antiplatelets; Z79.82 Long term (current) use of aspirin; Z79.899 Other long term (current) drug therapy; Z86.73 Personal history of transient ischemic attack (TIA), and cerebral infarction without residual deficits; Z87.891 Personal history of nicotine dependence
CPT/HCPCS: 71046; 80048; 80053; 80069; 82607; 82728; 82746; 82803; 82962; 83540; 83550; 83735; 84443; 84484; 85025; 85610; 85730; 86850; 86900; 86901; 86920; 86922; 87428; 90937; 90947; 93005; 93306; 94002; 94003; 94640; 97110; 97162; 97166; 97530; 97535; 97802; 99252; 99285; P9016; A4216; G0257; G0463

== ENCOUNTER → 2023-09-05 | Outpatient (CLI) | payer MEDICAID, SELFPAY ==
--- NOTE | 2023-09-05 09:45 | VDUE_ITS ---
Reason For Study: Preop dialysis access creation Right Lower Arm Left Arm Proximal Radial artery diameter 1.9 x 2.1 Extras Casting Director Vein is not present. mm. Cephalic Vein at proximal upper arm measures Proximal Radial artery waveform is 1.9 x 2.0 mm. triphasic . Cephalic Vein at mid upper arm measures 0.6 x Proximal Lateral Radial vein diameter 1.6 x 0.5 mm. 1.5 mm. Cephalic Vein distal upper arm measures 1.4 x Proximal Medial Radial vein diameter 1.7 x 1.5 mm. 2.0 mm. Cephalic Vein proximal forearm measures 1.0 x Distal Radial artery diameter 1.3 x 1.6 mm. 1.0 mm. Distal Lateral Radial vein diameter 1.3 x Cephalic Vein at distal forearm measures 0.7 1.7 mm. x 0.7 mm. Distal Medial Radial vein diameter 1.4 x 1.2 Cephalic vein at mid forearm is mm. noncompressible with bright intraluminal Proximal Ulnar artery diameter 3.8 x 4.8 mm. echoes. Proximal Ulnar artery waveform is Failed AVF noted in the left distal bicep triphasic . area involving the basilic vein. Proximal Lateral Ulnar vein diameter 3.6 x Basilic vein is absent. 3.7 mm. Brachial artery measure 4.5 x 4.6 mm with a Proximal Medial Ulnar vein diameter 2.8 x velocity of 71.2 cm/sec. 2.9 mm. Radial artery measures 1.8 x 2.1 mm with a Distal Ulnar artery diameter 1.7 x 1.9 mm. velocity of 31 cm/sec. Distal Lateral Ulnar vein diameter 1.2 x 1.1 mm. Distal Medial Ulnar vein diameter 1.2 x 1.2 mm. Right Arm Right Brachial artery diameter 3.9 x 4.1 mm. Right Brachial artery waveform is triphasic . Lateral Brachial vein diameter 2.9 x 2.8 mm. Medial Brachial vein diameter 1.8 x 1.7 mm. Extras Casting Director Vein is present. Extras Casting Director Vein measures 1.1 mm. Cephalic Vein at proximal upper arm measures 1.1 x 0.9 mm. Cephalic vein at proximal upper arm depth measures 9.2 mm. Cephalic Vein at mid upper arm measures 0.9 x 1.1 mm. Cephalic vein at mid upper arm depth measures 0.92 mm. Cephalic Vein distal upper arm measures 0.7 x 0.7 mm. Cephalic vein at distal upper arm depth measures 5.8 mm. Cephalic Vein proximal forearm measures 1.3 x 1.2 mm. Cephalic Vein at mid forearm measures 1.7 x 1.7 mm. Cephalic Vein at distal forearm measures 1.1 x 1.1 mm. Proximal Basilic vein measures 1.6 x 1.5 mm. Proximal Basilic vein depth measures 9.7 mm. Mid Basilic vein measures 1.3 x 1.4 mm. Mid Basilic vein depth measures 7.2 mm. Distal Basilic vein measures 1.4 x 1.4 mm. Distal Basilic vein depth measures 4.8 mm. VL/Dialysis Vein Map PRE-OP BILAT Interpretation Summary Right upper extremity patent deep and superficial veins with measurements above . Right upper extremity arterial system patent with normal waveforms and measurem ents above. Prior left brachio-basilic fistula occluded. Other venous measurements as above . Left upper extremity arterial system patent with normal waveforms and measureme nts above. Ordering Physician: Fanny Alejo Referring Physician: Dru Cummins M.D. Performed By: Hawa Savage RVT ???
== END | disposition home or self-care (01) ==
LOC: CVS 09:43
PROVIDERS: PCP Family Medicine; Referring Provider Physician Assistant; Visit Provider Physician Assistant
DX: N18.6 End stage renal disease (principal); Z99.2 Dependence on renal dialysis
CPT/HCPCS: 93985

== ENCOUNTER 2023-09-29 17:43 | Emergency (ER) | payer MEDICAID, SELFPAY ==
[2023-09-29 17:47] VITALS: BP 180/125; PULSE 78; RESP 16; TEMP 36.4; O2SAT 98; BMI 32.3
== END 2023-09-29 20:20 | disposition left against medical advice (07) ==
LOC: ED 20:58
PROVIDERS: PCP Family Medicine
DX: Z53.21 Procedure and treatment not carried out due to patient leaving prior to being seen by health care provider (principal)

== ENCOUNTER 2023-10-13 05:48 | Day surgery (SDC) | payer MEDICAID, SELFPAY ==
[2023-10-13] VITALS (8 sets, daily range): BP systolic 90–147; BP diastolic 36–76; PULSE 66–77; RESP 16–18; TEMP 36.7–37.6; O2SAT 94–100; BMI 31.6
[2023-10-13] MEDS: 0.9% Normal Saline (500mL Bag) 500 ML 15 ML IV (06:52)
[2023-10-13] MEDS: Heparin Injection (Vial) 5,000 UNIT/ML VIAL 5000 UNIT (06:55)
[2023-10-13 07:24] LABS: Bedside Glucose 113 mg/dL (74-106)
--- NOTE | 2023-10-13 07:27 | PCM.HP.BLA ---
History and Physical Allergies ceftriaxone Allergy (Severe, Verified 09/24/23 14:59) Rashvancomycin Allergy (Severe, Verified 09/24/23 14:59) RashPenicillins Allergy (Verified 09/24/23 14:59) Swellingoxycodone HCl [From Percocet] Adverse Reaction (Intermediate, Verified 09/24/23 14:59) Itching Medications carvedilol 12.5 mg tablet (Coreg) 12.5 mg PO BID HEART 11/28/20 [History Confirmed 09/24/23] calcium acetate(phosphat bind) 667 mg capsule 2 cap PO TID SUPPLEMENT 03/07/22 [History Confirmed 09/24/23] amlodipine 10 mg tablet 10 mg PO DAILY BLOOD PRESSURE 09/19/22 [History Confirmed 09/24/23] cinacalcet 30 mg tablet 30 mg PO DAILY DIALYSIS 09/19/22 [History Confirmed 09/24/23] hydralazine 25 mg tablet 25 mg PO TID BLOOD PRESSURE 09/19/22 [History Confirmed 09/24/23] sevelamer carbonate 800 mg tablet 800 mg PO TID DIALYSIS 01/28/23 [History Confirmed 09/24/23] lansoprazole 30 mg capsule,delayed release 30 mg PO DAILY GERD 02/24/23 [History Confirmed 09/24/23] oxygen #1 ea 06/04/23 [Rx Confirmed 09/24/23] aspirin 81 mg tablet,delayed release See Rx Instructions .Route .COMPLEX #90 tabs 06/09/23 [Rx Confirmed 09/24/23] diclofenac sodium 1 % topical gel (Voltaren Arthritis Pain) 2 g topical ONCE #100 grams 08/27/23 [Rx Confirmed 09/24/23] ferrous sulfate 325 mg (65 mg iron) tablet (FeroSul) 325 mg PO DAILY SUPPLEMENT #90 tabs 08/27/23 [Rx Confirmed 09/24/23] multivitamin (Daily-Caron tablet) 1 tab PO DAILY HEALTH MAINTENANCE #90 tabs 08/27/23 [Rx Confirmed 09/24/23] atorvastatin 80 mg tablet 80 mg PO QHS CHOLESTEROL #90 tabs 09/10/23 [Rx Confirmed 09/24/23] clopidogrel 75 mg tablet 75 mg PO DAILY BLOOD THINNER #90 tabs 09/10/23 [Rx Confirmed 09/24/23] PFSH Medical History (HFpEF) heart failure with preserved ejection fraction Acute and chronic respiratory failure with hypoxia Ambulates with cane Anemia Asthma CAD (coronary artery disease) Cardiac dysrhythmia, unspecified Chest pain CHF (congestive heart failure) Chronic kidney disease, stage V requiring chronic dialysis Chronic progressive renal failure COPD (chronic obstructive pulmonary disease) Diabetes Dialysis patient Easy bruising Edentulous End-stage renal disease on hemodialysis ESRD (end stage renal disease) on dialysis Former smoker Gastric reflux GI bleed Hepatitis High cholesterol History of hypertension Hypertension Hypertension Hyponatremia Kidney disease Leg cramps Malnutrition of moderate degree NSTEMI, initial episode of care On home oxygen therapy PONV (postoperative nausea and vomiting) Post-menopausal Rheumatoid arthritis Severe protein-calorie malnutrition Shortness of breath on exertion SOB (shortness of breath) Stroke Substance abuse TIA (transient ischemic attack) Type II diabetes mellitus Wears glasses Surgical History H/O: hysterectomy History of arteriovenostomy for renal dialysis History of eye surgery History of surgery knee scope S/P arteriovenous (AV) fistula creation Family History Mother Hypertension Emphysema/COPDSister Hypertension Social History Smoking Status: Former smoker alcohol intake: current details: 1 per week substance use type: does not use what type of physical activity do you participate in: none HPI HPI HPI: NATALI KINSEY, is a 68 F who presents to the office today for further discussion of dialysis access efforts. She has been on dialysis for 3 years via right IJ catheter with no issues. Prior left basilic fistula that sounds like resulted in steal and required ligation shortly after creation. She is right hand dominant, prior right PICC once for a few weeks. No clavicle or rib fractures. ROS General General: Yes weight change; No appetite, fatigue, colon cancer, breast cancer or weakness HEENT HEENT: No difficulty swallowing, eye injury, eye surgery, swollen glands or hoarseness Endo Endocrine: No thyroid disease, diabetes mellitus, thyroid cancer, Hair loss, heat intolerance or cold intolerance Skin Skin: No rash or changing moles Musc Musculoskeletal: Yes arthritis and joint pain; No back problems, rheumatoid arthritis or gout Cardio Cardiovascular: Yes high blood pressure and heart attack; No murmur, pacemaker, heart disease, atrial fibrillation, heart stent, palpitations, shortness of breat with exertion or chest pain Psych Psychiatric: No depression, anxiety or hearing voices Resp Respiratory: Yes shortness of breath, No sleep apnea, No cough, No COPD, No asthma, No emphysema and No wheezing Gastro Gastrointestinal: No abdominal pain, No nausea or vomiting, Yes diarrhea, No constipation, No blood in stool, No acid reflux, No hemorrhoids, No ulcers, No gallbladder problem and No black,tarry stools Royce Hematologic: Yes blood thinners, No blood disorders, No bleeding, No anemia and No blood clots Additional Details: plavix Neuro Neurologic: No system reviewed and no additional complaints, except as documented, No as per HPI, No abnormal gait, No abnormal hearing, No abnormal movements, No abnormal speech, No behavioral changes, No burning sensations, No confusion, No convulsions, No disequilibrium, No dizziness, No localized weakness, No frequent falls, No headache(s), No lack of coordination, No loss of vision, No memory loss, Yes numbness, No other visual disturbances, Yes radicular pain, No restless legs, No sensory deficit, No syncope, No tingling, No tremor(s), No weakness and No other Exam Const General: cooperative, healthy appearing, comfortable, no acute distress and well developed Nutritional Appearance: well nourished Orientation: alert, awake and oriented x3 HENMT Head: normocephalic and atraumatic Ears: hearing grossly normal bilaterally Nose: external nose normal Eyes General: appearance normal, both eyes and all related structures EOM: EOM intact bilaterally Neck Neck: normal visual inspection, full ROM, no lymphadenopathy and trachea midline Thyroid: thyroid normal Lymphatic: no lymphadenopathy noted Resp Effort & Inspection: normal respiratory effort, able to speak in complete sentences, symmetric chest movement, no audible wheezes, not labored, no stridor and no use of accessory muscles Cardio Rate: regular rate Rhythm: regular rhythm Pulses: brachial pulses present bilaterally 1+ Skin General: no rashes or lesions noted and no erythema Wounds: no wounds Neuro Cranial Nerves: CN's II-XI intact bilaterally and EOM intact bilaterally Speech: speech normal Gait: normal gait Motor: strength 5/5 throughout Sensory Exam: no sensory deficits noted Extremities Pulses: Diminished: Right Radial Pulse and Absent: Right Dorsalis Pedis Pulse, Left Dorsalis Pedis Pulse, Right Posterior Tibial Pulse, Left Posterior Tibial Pulse and Left Radial Pulse Lower Extremity Edema: None: Bilateral Psych Appearance: grossly normal and well kempt Mental Status: mental status grossly normal Mood: congruent mood Speech and Movement: speech and movement normal Thought Content: normal Judgment: judgment good Coding Level of Care Code Off vis,est,level 3 Diagnoses ESRD (end stage renal disease) on dialysis N18.6; Z99.2 Assessment and Plan Assessment and Plan (1) ESRD (end stage renal disease) on dialysis: Status: Chronic Comment: Vein mapping- right with small cephalic/basilic, brachial artery 3.9 mm and triphasic throughout Plan: -no adequate vein for [place] fistula -has artery on smaller side but triphasic -plan right AV graft; will use cadaver and assess in axilla for larger artery -with prior right PICC has some increased risk for edema, discussed
[2023-10-13] MEDS: Clindamycin 900 MG/50 ML BAG 75 MG IV (07:34)
[2023-10-13] MEDS: Heparin 10,000 UNITS/10 ML Vial 10000 UNITS (08:34)
[2023-10-13] MEDS: Bupivacaine 0.25% 30 ML Vial (10:19)
[2023-10-13] MEDS: Lidocaine 1% (30 ml sdv) 30 ML Vial (10:19)
--- NOTE | 2023-10-13 10:19 | OP.PCM_ITS ---
Problems Associated Problem List Diagnoses (1) ESRD (end stage renal disease) on dialysis: Report of Operation Date of Procedure: 10/13/23 Pre-Operative Diagnosis: ESRD Post-Operative Diagnosis: same Surgery/Procedure Performed:: right upper extremity arteriovenous graft with cadaver Surgeon: Tommy Mills Type of Anesthesia: General Estimated Blood Loss (mL): 25 Description of Procedure: HPI: Patient is a 68-year-old female with end-stage renal disease currently on dialysis. She had a previous left arm fistula which resulted in steal requiring ligation. She has no suitable [place] vein for fistula creation so she presents now for efforts at AV graft placement. Given her relatively small vessels and history of steal cadaver as conduit is utilized in efforts to hopefully minimize any hand ischemia. Description of procedure: Upon obtaining form consent and verification correct patient procedure site patient was taken to the operating where she was placed under general anesthesia. She was then positioned prepped and draped in usual sterile fashion a time was performed. Ultrasound used to evaluate the brachial artery. It was of similar caliber throughout the upper arm and was consistent with the mapping which revealed to be approximately 4 mm. Ultrasound did however reveal that it was circumferentially calcified throughout a large portion of the upper arm, and only compressible at the axilla and at the antecubital crease. It was felt that at the antecubital crease give us the adequate length the vessel to work with while keeping her incision out of the crease. The brachial vein at the axilla also was satisfactory in caliber. Skin was anesthetized with lidocaine and Marcaine and transverse incision made just above the antecubital crease. Bovie cautery was dissect down through subcutaneous tissue and self-retaining retractors put in position. Further dissection carried down to the fascia which was then incised exposing the brachial artery. Self-retaining retractors removed deeper in the wound and sharp dissection used dissect free the brachial artery proximal and distal. Of note the proximal extent was solid calcification and unclampable however in the mid to distal it was still calcified but compressible and clampable. A running was used to place a vessel loop in the mid and distal portion of the vessel and then attention turned to the vein exposure. Skin in the proximal upper arm at the axilla was then anesthetized 1% lidocaine and Marcaine and longitudinal incision created. Bovie cautery was dissect down through subcutaneous tissue and self-retaining retractor put in position. Further dissection was carried down to the fascia which was then incised and the self-retaining retractor moved deeper in the wound. Care was taken to identify uptake adjacent nerve structures. Sharp section and used dissect free the brachial vein proximal distal and a running was placed vessel loop. A [place] tunneler was then used to tunnel from the axillary to the antecubital incision. The patient was then heparinized allowed to circulate for 3 minutes. The cadaver femoral-popliteal artery had been thawed per lpn instructor's instructions. The brachial artery then occluded with Vesseloops and longitudinal arteriotomy created 11 blade extended Mar[place]il scissors. The cadaver conduit was then beveled to match the arteriotomy anastomosis performed with a 5-0 Prolene in running fashion. After completing suture line vessels were flushed in the graft and satisfactory stasis was noted. There is a brisk pulse through the graft material and this was then marked to maintain orientation. It was then clamped with a atraumatic clamp just beyond the anastomosis and secured to the tunneler. It was then pulled through to the axillary incision care taken to avoid any graft rotation. The brachial vein was then occluded with Vesseloops longitudinal venotomy created with 11 blade extended Marnielli scissors. The graft was then cut the length and beveled to match the venotomy anastomosis performed using a 5-0 Prolene running fashion. Prior to completing suture line vessels were backbled and the graft flushed. After completing the suture line clamps removed satisfactory stasis was noted. There is a palpable thrill in the graft as well as in the outflow vein. The radial artery prior to surgery was nonpalpable due to calcification circumferentially but did have normal multiphasic signal. On completion of the radial artery and ulnar artery and biphasic signals that did augment some with graft compression. The hand was pink and warm and felt to be well-perfused so the patient was then reversed with protamine and the incision closed with 2-0 Vicryl, 4 Monocryl, Dermabond. Patient was awakened anesthesia taken recovery room with anticipated discharge home.
--- NOTE | 2023-10-13 10:21 | DCINST_ITS ---
Discharge Instructions Diet Discharge Diet: No restrictions Activity Lifting Restrictions: not > 20 lbs with right arm for 2 weeks Dressing / Incision Call your doctor if your incision/area has: Sudden Increased Bleeding, Increased Pain/ Swelling, Increased Redness and Foul Smelling Discharge Call your doctor if you observe: Fever of 101 or Higher, Coldness, Increased Pain and Numbness or Tingling Remove Dressing in: 2 days Follow Up Care Test Results: Test results from this visit will be discussed in further detail at your follow- up appointment, if applicable. Discharge Plan Admission Attending Provider: Tommy Mills Primary Care Provider: Prince Cummins Discharge Orders/Prescriptions Prescriptions: New hydrocodone-acetaminophen 5-325 mg tablet 1 tab PO Q8H PRN (Reason: pain) 3 Days Qty: 9 0RF Continued carvedilol [Coreg] 12.5 mg tablet 12.5 mg PO BID multivitamin [Daily-Caron] Tablet 1 tab PO DAILY Qty: 90 2RF ferrous sulfate [FeroSul] 325 mg (65 mg iron) tablet 325 mg PO DAILY Qty: 90 1RF calcium acetate(phosphat bind) 667 mg capsule 2 cap PO TID cinacalcet 30 mg Tablet 30 mg PO DAILY hydralazine 25 mg tablet 25 mg PO TID amlodipine 10 mg tablet 10 mg PO DAILY sevelamer carbonate 800 mg tablet 800 mg PO TID lansoprazole 30 mg capsule,delayed release(DR/EC) 30 mg PO DAILY Patient Comments: TAKE 1 CAPSULE BY MOUTH ONCE A DAY diclofenac sodium [Voltaren Arthritis Pain] 1 % gel 2 g topical ONCE PRN (Reason: ARTHRITIS) Rx Instructions: apply to right knee aspirin 81 mg tablet,delayed release (DR/EC) See Rx Instructions .ROUTE .COMPLEX Qty: 90 3RF Dose Instruction: TAKE 1 TABLET BY MOUTH DAILY Rx Instructions: TAKE 1 TABLET BY MOUTH DAILY atorvastatin 80 mg tablet 80 mg PO QHS Qty: 90 1RF clopidogrel 75 mg tablet 75 mg PO DAILY Qty: 90 1RF Other Ambulatory Orders: Basic Metabolic Profile (BMP) (Routine) Timeframe: 20231003 Facility: [facility] - Location: Laboratory Ordered By: Dr. Tommy Mills CBC-Complete Blood Cnt No Diff (Routine) Timeframe: 20231003 Facility: [facility] - Location: Laboratory Ordered By: Dr. Tommy Mills Referrals / Follow Up: Prince Cummins DO [Primary Care Provider] - Disposition Disposition (needs filled in before D/C Order can be placed): Home, Self Care
== END 2023-10-13 12:44 | disposition home or self-care (01) ==
LOC: SDC 05:49 → AC 05:52
PROVIDERS: PCP Family Medicine; Referring Provider Surgery Trauma Surgery; Visit Provider Surgery Trauma Surgery
PROC: (CPT 36830; principal; 2023-10-13 07:15)
DX: I13.2 Hypertensive heart and chronic kidney disease with heart failure and with stage 5 chronic kidney disease, or end stage renal disease (principal); Z99.2 Dependence on renal dialysis; I50.32 Chronic diastolic (congestive) heart failure; E11.22 Type 2 diabetes mellitus with diabetic chronic kidney disease; N18.6 End stage renal disease; I25.10 Atherosclerotic heart disease of native coronary artery without angina pectoris; I25.2 Old myocardial infarction; D63.1 Anemia in chronic kidney disease; E78.00 Pure hypercholesterolemia, unspecified; Z79.02 Long term (current) use of antithrombotics/antiplatelets; Z79.82 Long term (current) use of aspirin; Z79.899 Other long term (current) drug therapy; Z87.891 Personal history of nicotine dependence
CPT/HCPCS: 36830; 01844; 82962; A4648; J7040; J2405

== ENCOUNTER → 2023-11-21 | Outpatient (CLI) | payer MEDICAID, SELFPAY ==
--- NOTE | 2023-11-21 10:10 | AVDS_ITS ---
Reason For Study: Swelling RIGHT Inflow, 478.8/225.4 cm/sec. Inflow, 1446 ml/min. Prox anastomosis, 787.5/415.2 cm/sec. Prox anastomosis, 733 ml/min. Prox graft, 193.4/107.5 cm/sec. Prox graft, 921.9 ml/min. Mid graft, 267.7/163.2 cm/sec. Mid graft, 1402 ml/min. Distal graft, 311.6/214.6 cm/sec. Distal graft, 1524 ml/min. Distal anastomosis, 589.4/320 cm/sec. Distal anastomosis, 636.3 ml/min. Outflow, 151.7/79.6 cm/sec. Outflow, 1397 ml/min. VL/AV Fistula/Dialysis Graft Scan Interpretation Summary Patent right upper extremity arteriovenous graft with adequate flow volumes and no stenosis. No pseudoaneurysm identified. Ordering Physician: Fanny Alejo Referring Physician: Dru Cummins M.D. Performed By: Hawa Savage RVT
== END | disposition home or self-care (01) ==
PROVIDERS: PCP Family Medicine; Referring Provider Surgery Trauma Surgery; Visit Provider Surgery Trauma Surgery
DX: I77.0 Arteriovenous fistula, acquired (principal); M79.89 Other specified soft tissue disorders
CPT/HCPCS: 93990

== ENCOUNTER 2023-11-25 06:09 | Day surgery (SDC) | payer MEDICAID, SELFPAY ==
[2023-11-25] VITALS (7 sets, daily range): BP systolic 131–188; BP diastolic 46–86; PULSE 74–90; RESP 16–18; TEMP 36.4–37.6; O2SAT 95–99; BMI 30.6
[2023-11-25] MEDS: 0.9% Normal Saline (500mL Bag) 500 ML 15 ML IV (06:58)
[2023-11-25 07:04] LABS: Hematocrit 34.9 % (37-47); Hemoglobin 11.3 g/dL (12.0-15.0); Mean Corp Hgb Conc 32.4 g/dL (32-36); Mean Corpuscular Hgb 29.7 pg (27.0-32.0); Mean Corpuscular Volume 91.6 fL (81-99); Mean Platelet Vol. 9.2 fl (6.2-12.0); Platelet Count 212 K/mm3 (150-450); RBC Distribution Width SD 50.4 fl (35.1-43.9); Red Blood Count 3.81 M/mm3 (4.2-5.4); White Blood Count 3.9 K/mm3 (4.4-11.0)
[2023-11-25 07:19] LABS: Anion Gap 7 (5-15); BUN 35 mg/dL (7-18); BUN/Creat Ratio 5.4 RATIO (10-20); Calcium,Total 9.7 mg/dL (8.5-10.1); Chloride 98 mmol/L (98-107); Creatinine, Serum 6.46 mg/dL (0.55-1.02); EST Glomerular Filtration Rate 7 mL/min (>60); Est Glom Filt Rate - Afr Amer 8 mL/min (>60); Estimated Creatinine Clearance 8.18 ml/min; Glucose 93 mg/dL (74-106); Potassium 4.6 mmol/L (3.5-5.1); Sodium Level 138 mmol/L (136-145)
--- NOTE | 2023-11-25 07:31 | HP.PCM_ITS ---
History and Physical Allergies ceftriaxone Allergy (Severe, Verified 11/19/23 09:09) Rashvancomycin Allergy (Severe, Verified 11/19/23 09:09) RashPenicillins Allergy (Verified 11/19/23 09:09) Swellingoxycodone HCl [From Percocet] Adverse Reaction (Intermediate, Verified 11/19/23 09:09) Itching Subjective Details: Patient was seen in the office today for continued postop follow-up of her RUE AV Fistula with which she has had symptoms of steal syndrome. At last OV, had decided that she would try dialysis through the fistula and see how it goes. She reports that she had dialysis through the fistula up until Friday. During dialysis, she had a lot more burning pain into her hand. She also feels that her hand/hydrator is weaker. Her hand always feels cold. No wounds. No benefit from nitro ointment or pletal. Hand exercises have not helped much either. She does not feel that she can continue to tolerate these symptoms. She reports that on Friday at dialysis, the fistula was infiltrated. She reports she has had some bruising and swelling since then. She feels the swelling may be getting worse. She feels the discomfort in her RUE has been generally worse since then. Yesterday at dialysis they used her catheter. Objective Details: A&O x 3, NAD RRR Nonlabored respirations, able to speak in complete sentences biphasic radial/ulnar +thrill and bruit hand is cool to touch, weakly palpable pulse strength 4/5 R hand today. There is some swelling around the graft in the RUE. No swelling appreciated into the hand. Coding Level of Care Code Off vis,est,level 3 Diagnoses Steal syndrome as complication of dialysis access T82.898A REPLACED BY [facility] Medical History (HFpEF) heart failure with preserved ejection fraction Acute and chronic respiratory failure with hypoxia Alcohol use Ambulates with cane Anemia Arthritis Asthma CAD (coronary artery disease) Cardiac dysrhythmia, unspecified Cardiology follow-up encounter CHF (congestive heart failure) Chronic kidney disease, stage V requiring chronic dialysis Chronic progressive renal failure COPD (chronic obstructive pulmonary disease) Diabetes Dialysis patient Dietary restriction Easy bruising Edentulous End-stage renal disease on hemodialysis ESRD (end stage renal disease) on dialysis Former smoker Gastric reflux GI bleed Hepatitis High cholesterol History of echocardiogram History of heart attack History of hypertension Hypertension Hypertension Hyponatremia Leg cramps Malnutrition of moderate degree Normal Holter exam NSTEMI, initial episode of care On home oxygen therapy PONV (postoperative nausea and vomiting) Post-menopausal Rheumatoid arthritis Severe protein-calorie malnutrition Shingles outbreak Shortness of breath on exertion Stroke Substance abuse TIA (transient ischemic attack) Type II diabetes mellitus Wears dentures Wears glasses Surgical History H/O: hysterectomy History of arteriovenostomy for renal dialysis History of eye surgery History of surgery knee scope S/P arteriovenous (AV) fistula creation Family History Mother Hypertension Emphysema/COPDSister Hypertension Social History Smoking Status: Former smoker alcohol intake: current details: 1 per week substance use type: does not use what type of physical activity do you participate in: none Assessment and Plan (No Qualifiers) Assessment and Plan (1) Steal syndrome as complication of dialysis access: Status: Acute Plan: -ligate AVG
[2023-11-25] MEDS: Clindamycin 900 MG/50 ML BAG 75 MG IV (07:53)
[2023-11-25] MEDS: Heparin Injection (Vial) 5,000 UNIT/ML VIAL 5000 UNIT (08:10)
[2023-11-25 08:26] LABS: Bedside Glucose 96 mg/dL (74-106)
[2023-11-25] MEDS: Bupivacaine 0.25% 30 ML Vial (08:26)
[2023-11-25] MEDS: Lidocaine 1% (20 ml mdv) 20 ML Vial (08:26)
--- NOTE | 2023-11-25 08:27 | EX.PCM.DISCH ---
Discharge Instructions Diet Discharge Diet: No restrictions Activity Lifting Restrictions: not >20 lbs with right arm for 3 weeks Additional Activity Instructions:: do not submerge incision for 3 weeks Dressing / Incision Call your doctor if your incision/area has: Sudden Increased Bleeding, Increased Pain/ Swelling, Increased Redness and Foul Smelling Discharge Call your doctor if you observe: Fever of 101 or Higher and Coldness, Increased Pain Remove Dressing in: 3 days Cleanse incision/area with: Soap & Water Follow Up Care Test Results: Test results from this visit will be discussed in further detail at your follow-up appointment, if applicable. Discharge Plan Admission Attending Provider: Tommy Mills Primary Care Provider: Prince Cummins Discharge Orders/Prescriptions Prescriptions: New tramadol 50 mg tablet 50 mg PO Q8H PRN (Reason: pain) Qty: 21 0RF Continued carvedilol [Coreg] 12.5 mg tablet 12.5 mg PO BID multivitamin [Daily-Caron] Tablet 1 tab PO DAILY Qty: 90 2RF ferrous sulfate [FeroSul] 325 mg (65 mg iron) tablet 325 mg PO DAILY Qty: 90 1RF nitroglycerin 2 % ointment 1 inch transdermal BID Qty: 60 0RF Rx Instructions: administer 2 doses/day (approx. 6 hrs apart); remove for 10-12 hrs per 24 hours cilostazol 100 mg tablet 50 mg PO BID Qty: 60 0RF calcium acetate(phosphat bind) 667 mg capsule 2 cap PO TID cinacalcet 30 mg Tablet 30 mg PO DAILY hydralazine 25 mg tablet 25 mg PO TID amlodipine 10 mg tablet 10 mg PO DAILY sevelamer carbonate 800 mg tablet 800 mg PO TID lansoprazole 30 mg capsule,delayed release(DR/EC) 30 mg PO DAILY Patient Comments: TAKE 1 CAPSULE BY MOUTH ONCE A DAY diclofenac sodium [Voltaren Arthritis Pain] 1 % gel 2 g topical ONCE PRN (Reason: ARTHRITIS) Rx Instructions: apply to right knee aspirin 81 mg tablet,delayed release (DR/EC) See Rx Instructions .ROUTE .COMPLEX Qty: 90 3RF Dose Instruction: TAKE 1 TABLET BY MOUTH DAILY Rx Instructions: TAKE 1 TABLET BY MOUTH DAILY atorvastatin 80 mg tablet 80 mg PO QHS Qty: 90 1RF clopidogrel 75 mg tablet 75 mg PO DAILY Qty: 90 1RF Referrals / Follow Up: Prince Cummins DO [Primary Care Provider] - Disposition Disposition (needs filled in before D/C Order can be placed): Home, Self Care
--- NOTE | 2023-11-25 08:33 | OP.PCM_ITS ---
Report of Operation Date of Procedure: 11/25/23 Pre-Operative Diagnosis: right upper extremity steal syndrome, prior AV graft Post-Operative Diagnosis: same Surgery/Procedure Performed:: ligation right upper extremity AV graft Description of Surgical Findings:: triphasic radial at completion, improved from baseline Surgeon: Tommy Mills Type of Anesthesia: Local MAC Estimated Blood Loss (mL): 2 Description of Procedure: HPI: Patient is a 68-year-old female with end-stage renal disease on dialysis who previously had a right upper arm AV graft placed. She had steal symptoms which failed to improve with hand exercises and vasodilatory agents. Her symptoms worsened with use in dialysis so she presents now for ligation of. Description of procedure: Upon obtaining informed consent and verification correct patient procedure site patient was taken to the operating room where she was positioned prepped and draped in usual sterile fashion. Time was performed and moderate sedation administered by anesthesia. Skin was anesthetized 1% lidocaine and transverse incision created over the palpable thrill. Bovie wyatt ctrocautery was dissect down through the subcutaneous tissue and self-retaining retractors put in position. Sharp dissection was then used to dissect free the graft and a right angle used to encircle it circumferentially. This was then ligated with 0 silk ties. After ligation there was no thrill remaining and there is now a triphasic signal in the radial artery at the wrist. The incision was then inspected for hemostasis and closed with 3-0 Vicryl, 4 Monocryl and Dermabond for the skin. Patient was awake from anesthesia taken to the recovery room with anticipated discharged home.
== END 2023-11-25 10:18 | disposition home or self-care (01) ==
LOC: SDC 06:11 → AC 06:12
PROVIDERS: PCP Family Medicine; Referring Provider Surgery Trauma Surgery; Visit Provider Surgery Trauma Surgery
PROC: (CPT 37607; principal; 2023-11-25 07:15)
DX: T82.898A Other specified complication of vascular prosthetic devices, implants and grafts, initial encounter (principal); I13.2 Hypertensive heart and chronic kidney disease with heart failure and with stage 5 chronic kidney disease, or end stage renal disease; Z99.2 Dependence on renal dialysis; J44.9 Chronic obstructive pulmonary disease, unspecified; I50.32 Chronic diastolic (congestive) heart failure; E11.22 Type 2 diabetes mellitus with diabetic chronic kidney disease; N18.6 End stage renal disease; E78.00 Pure hypercholesterolemia, unspecified; I25.10 Atherosclerotic heart disease of native coronary artery without angina pectoris; I25.2 Old myocardial infarction; K21.9 Gastro-esophageal reflux disease without esophagitis; Z79.82 Long term (current) use of aspirin; Z79.899 Other long term (current) drug therapy; X58.XXXA Exposure to other specified factors, initial encounter; Z86.73 Personal history of transient ischemic attack (TIA), and cerebral infarction without residual deficits; Z87.891 Personal history of nicotine dependence
CPT/HCPCS: 37607; 80048; 82962; 85027; A4648; J7040; J2405

== ENCOUNTER → 2024-02-23 | Outpatient (CLI) | payer MEDICAID, SELFPAY ==
--- NOTE | 2024-02-23 09:11 | ART_ITS ---
Reason For Study: PVD Procedure A bilateral lower extremity continuous wave Doppler with analog waveform analysis,segmental pressures,and ankle brachial indexes without exercise. Left Segmental Pressures Left brachial= 174mmHg. Left posterior tibial artery = >254mmHg. Left dorsalis pedis artery = >254mmHg. Left digit = 0.25 mmHg. Right Segmental Pressures Right posterior tibial artery = >254mmHg. Right dorsalis pedis artery = >254mmHg. Right digit = 26 mmHg. Indices The right ankle brachial index by the posterior tibial artery is NC. The right ankle brachial index by the dorsalis pedis is NC. The right digital-brachial index is 0.15. The left ankle brachial index by the posterior tibial artery is NC. The left ankle brachial index by the dorsalis pedis is NC. The left digital-brachial index is 0.25. VL/Lower Ext Art Exam w/o Exercis Interpretation Summary Right RITO not able to be obtained due to non-compressible vessels. Doppler/PVR waveforms of the right leg severely diminished throughout at rest. RightTBI diminished consistent with presence of disease Left RITO not able to be obtained due to non-compressible vessels. Doppler/PVR w aveforms of the left leg moderately diminished throughout at rest. Left TBI diminished consistent with presence of disease Ordering Physician: Fanny Alejo Referring Physician: Prince Cummins Performed By: Jenna Luis RDCS/RVT
== END | disposition home or self-care (01) ==
LOC: CVS 09:09
PROVIDERS: PCP Family Medicine; Referring Provider Physician Assistant; Visit Provider Physician Assistant
DX: I73.9 Peripheral vascular disease, unspecified (principal)
CPT/HCPCS: 93923

== ENCOUNTER → 2024-04-07 | Outpatient (CLI) | payer MEDICAID, SELFPAY ==
--- NOTE | 2024-04-07 15:31 | US_ITS ---
INDICATION: HYPERPARATHYROIDISM EXAMINATION: Ultrasound US Thyroid (eg thyroid, parathyroid, parotid) TECHNIQUE: Hale scale and color doppler imaging was performed of the thyroid gland. COMPARISON: No relevant prior comparison study available FINDINGS: RIGHT THYROID LOBE: 4.7 x 2.3 x 2.4 cm, volume 13.2 mL. Parenchyma: The gland echotexture is homogenous. Thyroid vascularity is normal. LEFT THYROID LOBE: 4.8 x 2 x 1.6 cm, volume 8 mL. Parenchyma: The gland echotexture is homogenous. Thyroid vascularity is normal. ISTHMUS: 0.5 cm in maximum AP dimension. Estimated total number of nodules greater than equal to 1 cm: 0. There are bilateral cysts identified with the largest at the lower pole of the left lobe measuring 0.8 cm. No solid nodules. LYMPH NODES: No lymphadenopathy is seen in the tissue surrounding the thyroid gland. US/Thyroid IMPRESSION: Small cysts identified with no suspicious thyroid nodules. No specific follow-up recommended. ACR TI-RADS RECOMMENDATION REFERENCE: Ultrasound-guided fine-needle aspiration, follow-up ultrasound, no further follow-up. *TR 1 (0 points) and TR 2 (2 points): No FNA or follow-up. *TR 3 (3 points): FNA if more than or equal to 2.5 cm in maximum dimension. Follow-up ultrasound in 1, 3, and 5 years if 1.5 to 2.4 cm in maximum dimension. *TR 4 (4-6 points): FNA if more than or equal to 1.5 cm in maximum dimension. Follow-up ultrasound in 1, 2, 3, and 5 years if 1 to 1.4 cm in maximum dimension. *TR 5 (more than or equal to 7 points): FNA if more than or equal to 1 cm in maximum dimension. Follow-up ultrasound every year for 5 years if 0.5 to 0.9 cm in maximum dimension. *TR 3, TR 4, or TR 5 nodules that are below the size threshold for follow-up receive no follow-up. Electronically Signed: Max Schultz MD at 17:05 EDT ,
== END | disposition home or self-care (01) ==
LOC: US 15:29
PROVIDERS: PCP Family Medicine; Referring Provider Internal Medicine Nephrology; Visit Provider Internal Medicine Nephrology
DX: E21.1 Secondary hyperparathyroidism, not elsewhere classified (principal)
CPT/HCPCS: 76536

== ENCOUNTER 2024-05-10 06:04 | Day surgery (SDC) | payer MEDICAID, SELFPAY ==
[2024-05-10] VITALS (9 sets, daily range): BP systolic 116–174; BP diastolic 35–55; PULSE 64–87; RESP 16–20; TEMP 36.6–37.4; O2SAT 92–100; BMI 31.6
--- NOTE | 2024-05-10 06:40 | PRE.ANES_ITS ---
ASA Classification* ASA Classification ASA Classification: 3 Assessment & Plan Anesthesia* Anesthesia Assessment Anesthesia Assessment: Discussed sedation and/or anesthesia options, risks, benefits, and alternatives with patient/parents/legal guardian/POA. Questions invited. The patient/parents/legal guardian/POA seems to understand and agrees to proceed with anesthesia plan. Reviewed the physical assessment, medical history, allergy history and patient home medications list prior to surgery/procedure/anesthetic and documented any changes. Performed airway and anesthesia risk assessments. Anesthesia Type Anesthesia Type: MAC (GA BKUP) Anesthesia Focused Assessment* Airway Assessment Mouth opens: >3 cm Mallampati Score: II Focused Labs Anesthesia Preop lab: CBC WBC 3.9 K/mm3 (4.4-11.0) L 11/25/23 06:44 RBC 3.81 M/mm3 (4.2-5.4) L 11/25/23 06:44 Hgb 11.3 g/dL (12.0-15.0) L 11/25/23 06:44 Hct 34.9 % (37-47) L 11/25/23 06:44 Plt Count 212 K/mm3 (150-450) 11/25/23 06:44 CHEMISTRY Potassium 4.6 mmol/L (3.5-5.1) 11/25/23 06:44 Sodium 138 mmol/L (136-145) 11/25/23 06:44 Magnesium 2.2 mg/dL (1.6-2.6) 02/25/23 10:30 Phosphorus 3.1 mg/dL (2.5-4.9) 02/25/23 10:30 BUN 35 mg/dL (7-18) H 11/25/23 06:44 Creatinine 6.46 mg/dL (0.55-1.02) H 11/25/23 06:44 Glucose 93 mg/dL (74-106) 11/25/23 06:44 POC Glucose 96 mg/dL (74-106) 11/25/23 06:48 TSH 0.80 uIU/mL (0.358-3.74) 02/26/23 05:00 COAG PT 13.7 SECONDS (11.7-14.9) 02/25/23 08:55 Pre-Assessment Diagnosis/Proposed Procedure Planned Operative Procedure(s): (L) Left chest wall Arteriovenous Graft Anesthesia History Anesthesia History - 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 When Was Last Pacemaker Check QUESTION #4 FULL TEXT: You/Your Family Experience fever (hyperthermia) with Anesthesia Last Oral Intake Last Oral intake: Last Oral Intake NPO since Meds taken in AM with sips of water? Meds patient instructed to take am of surgery PONV PONV - student financial services counselor: PONV - student financial services counselor Female Yes 05/04/24 15:05 HX of Motion Sickness No 05/04/24 15:05 HX of N/V After Surgery Yes 05/04/24 15:05 Non-Smoker Yes 05/04/24 15:05 Duration of Surgery greater No 05/04/24 15:05 than 60 minutes Number of Risk Factors 3 05/04/24 15:05 PONV Score Moderate Risk 05/04/24 15:05 Height & Weight Height & Weight: Anesthesia: Height & Weight Height 5 ft 6 in 05/05/24 14:28 Respiratory Assessment Respiratory Assessment - student financial services counselor: Respiratory Tract Infection Hx - student financial services counselor Hx Respiratory Tract Infection No 05/04/24 15:05 STOP Sleep Apnea STOP Sleep Apnea - student financial services counselor: STOP Sleep Apnea - student financial services counselor Hx Hypertension Yes: CONTROLLED WITH MED 05/04/24 15:05 Hx Sleep Apnea No 05/04/24 15:05 CPAP No 05/04/24 15:05 BIPAP No 05/04/24 15:05 Do you snore loudly (louder No 05/04/24 15:05 than talking or can be heard Do you often feel tired/ No 05/04/24 15:05 fatigued/ sleepy during daytime? Has anyone observed you stop No 05/04/24 15:05 breathing during sleep? STOP Results Negative 05/04/24 15:05 QUESTION #5 FULL TEXT : Do you snore loudly (louder than talking or can be heard through closed doors)? Tobacco Use History Tobacco Use History - student financial services counselor: Tobacco Use History - student financial services counselor Tobacco Use Non-smoker 03/17/24 09:24 Smoking Status Former smoker 05/04/24 15:05 Hx Tobacco Use No 05/04/24 15:05 Years Smoking Packs Smoked per Day Smoking Cessation Date was No - quit smoking greater 05/04/24 15:05 within the last 15 years than 15 years ago Hx Smoking Cessation Date 10/19/18 05/04/24 15:05 Hx Smoking Cessation No 05/04/24 15:05 Counseling Hematologic Medial History Hematologic Hx - student financial services counselor: Hematologic Medical Hx - attending pathologist Hx of Blood Transfusion Yes 05/04/24 15:05 Hx of Transfusion in last 3 No 05/04/24 15:05 Months Date of Last Transfusion (if within last 3 months) Ever experience any problems No 05/04/24 15:05 with transfusion(s)? Specify any problems Hx of Preganancy in last 3 N/A 05/04/24 15:05 Months Nurse Filling Out Transfusion NBUCHER 05/04/24 15:05 & Questions: Date: 05/04/24 05/04/24 15:05 Time: 15:07 05/04/24 15:05 Patient unable to answer at this time (ie. confused, unrespo /Reproduction History /Reproductive History - student financial services counselor: /Reproductive Hx- student financial services counselor Hx Now Gestational Age (in weeks): EDC: Hx Hx Para Hx Section SAB No 05/04/24 15:05 Active Medications Active Medications: Current Medications Generic Name Dose Route Start Last Admin Trade Name Freq PRN Reason Stop Dose Admin Clindamycin Phosphate 900 mg in 50 mls @ 75 mls/hr 05/10/24 07:30 Cleocin IV 05/10/24 08:09 PREOP ONE Sodium Chloride 500 mls @ 0 mls/hr 05/10/24 06:15 IV .Q0M BAYRON KVO PFSH Medical History Alcohol use Wears dentures Shingles outbreak Arthritis Dietary restriction Normal Holter exam History of echocardiogram Cardiology follow-up encounter History of heart attack CHF (congestive heart failure) Severe protein-calorie malnutrition Malnutrition of moderate degree COPD (chronic obstructive pulmonary disease) CAD (coronary artery disease) (HFpEF) heart failure with preserved ejection fraction Substance abuse Dialysis patient GI bleed Hepatitis Hypertension History of hypertension Chronic progressive renal failure TIA (transient ischemic attack) End-stage renal disease on hemodialysis PONV (postoperative nausea and vomiting) Post-menopausal Wears glasses Ambulates with cane High cholesterol Easy bruising Edentulous Gastric reflux On home oxygen therapy Former smoker Shortness of breath on exertion Leg cramps Hyponatremia ESRD (end stage renal disease) on dialysis Acute and chronic respiratory failure with hypoxia Chronic kidney disease, stage V requiring chronic dialysis Cardiac dysrhythmia, unspecified NSTEMI, initial episode of care Anemia Asthma Stroke Diabetes Rheumatoid arthritis Type II diabetes mellitus Hypertension Home Medications ?Medication ?Instructions ?Recorded ?Last Taken ?Type calcium acetate(phosphat bind) 667 2 cap PO TID SUPPLEMENT 03/07/22 05/09/24 History mg capsule cinacalcet 30 mg tablet 30 mg PO DAILY DIALYSIS 09/19/22 05/09/24 History sevelamer carbonate 800 mg tablet 800 mg PO TID DIALYSIS 01/28/23 05/09/24 History aspirin 81 mg tablet,delayed See Rx Instructions .Route 06/09/23 05/09/24 Rx release .COMPLEX #90 tabs ferrous sulfate 325 mg (65 mg 325 mg PO DAILY SUPPLEMENT #90 tabs 08/27/23 05/09/24 Rx iron) tablet (FeroSul) diclofenac sodium 1 % topical gel 2 g topical ONCE PRN ARTHRITIS 10/03/23 11/24/23 History (Voltaren Arthritis Pain) cilostazol 100 mg tablet 50 mg (1/2 x 100 mg) PO BID #60 10/15/23 05/09/24 Rx tabs amlodipine 10 mg tablet 10 mg PO DAILY BLOOD PRESSURE #7 02/13/24 05/10/24 Rx tabs lidocaine 4 % topical patch 1 patch topical DAILY PRN pain #10 02/13/24 Unknown Rx (AsperFlex (lidocaine)) ea atorvastatin 80 mg tablet 80 mg PO QHS CHOLESTEROL #30 tabs 02/23/24 05/09/24 Rx clopidogrel 75 mg tablet 75 mg PO DAILY BLOOD THINNER #30 02/23/24 05/09/24 Rx tabs hydrocodone-acetaminophen 5-325mg 1 tab PO Q8H PRN pain 10 days #30 05/05/24 Unknown Rx 5mg-325mg tabs Allergy/AdvReac Type Severity Reaction Status Date / Time ceftriaxone Allergy Severe Rash Verified 05/05/24 14:25 vancomycin Allergy Severe Rash Verified 05/05/24 14:25 Penicillins Allergy Swelling Verified 05/05/24 14:25 oxycodone HCl (From Percocet) AdvReac Intermediate Itching Verified 05/05/24 14:25 Family History Mother Hypertension Emphysema/COPD Sister Hypertension Surgical History S/P arteriovenous (AV) fistula creation History of arteriovenostomy for renal dialysis History of surgery History of eye surgery knee scope H/O: hysterectomy Social History Smoking Status: Former smoker alcohol intake: current details: 1 per week substance use type: does not use what type of physical activity do you participate in: none Review of Systems (Anesthesia) ROS Narrative System reviewed and no additional complaints, except as documented.
[2024-05-10] MEDS: 0.9% Normal Saline (500mL Bag) 500 ML 15 ML IV (06:48)
[2024-05-10 07:02] LABS: Bedside Glucose 85 mg/dL (74-106)
--- NOTE | 2024-05-10 07:24 | HP.PCM_ITS ---
HPI - General HPI Narrative NATALI KINSEY, is a 68 F who presents for AV graft placement for dialysis access. Prior left basilic point lay ira fistula resulted in steal and was ligated shortly after creation. Earlier this year had right upper arm cadaver graft which had some mild steal symptoms which she initially tolerated. After several weeks of use her symptoms worsened and it was unclear if due to worsening steal or access infiltration; given severity graft was ligated. Presents now for chest wall AV graft. [facility] Medical History Alcohol use Wears dentures Shingles outbreak Arthritis Dietary restriction Normal Holter exam History of echocardiogram Cardiology follow-up encounter History of heart attack CHF (congestive heart failure) Severe protein-calorie malnutrition Malnutrition of moderate degree COPD (chronic obstructive pulmonary disease) CAD (coronary artery disease) (HFpEF) heart failure with preserved ejection fraction Substance abuse Dialysis patient GI bleed Hepatitis Hypertension History of hypertension Chronic progressive renal failure TIA (transient ischemic attack) End-stage renal disease on hemodialysis PONV (postoperative nausea and vomiting) Post-menopausal Wears glasses Ambulates with cane High cholesterol Easy bruising Edentulous Gastric reflux On home oxygen therapy Former smoker Shortness of breath on exertion Leg cramps Hyponatremia ESRD (end stage renal disease) on dialysis Acute and chronic respiratory failure with hypoxia Chronic kidney disease, stage V requiring chronic dialysis Cardiac dysrhythmia, unspecified NSTEMI, initial episode of care Anemia Asthma Stroke Diabetes Rheumatoid arthritis Type II diabetes mellitus Hypertension Home Medications ?Medication ?Instructions ?Recorded ?Last Taken ?Type calcium acetate(phosphat bind) 667 2 cap PO TID SUPPLEMENT 03/07/22 05/09/24 History mg capsule cinacalcet 30 mg tablet 30 mg PO DAILY DIALYSIS 09/19/22 05/09/24 History sevelamer carbonate 800 mg tablet 800 mg PO TID DIALYSIS 01/28/23 05/09/24 History aspirin 81 mg tablet,delayed See Rx Instructions .Route 06/09/23 05/09/24 Rx release .COMPLEX #90 tabs ferrous sulfate 325 mg (65 mg 325 mg PO DAILY SUPPLEMENT #90 tabs 08/27/23 05/09/24 Rx iron) tablet (FeroSul) diclofenac sodium 1 % topical gel 2 g topical ONCE PRN ARTHRITIS 10/03/23 11/24/23 History (Voltaren Arthritis Pain) cilostazol 100 mg tablet 50 mg (1/2 x 100 mg) PO BID #60 10/15/23 05/09/24 Rx tabs amlodipine 10 mg tablet 10 mg PO DAILY BLOOD PRESSURE #7 02/13/24 05/10/24 Rx tabs lidocaine 4 % topical patch 1 patch topical DAILY PRN pain #10 02/13/24 Unknown Rx (AsperFlex (lidocaine)) ea atorvastatin 80 mg tablet 80 mg PO QHS CHOLESTEROL #30 tabs 02/23/24 05/09/24 Rx clopidogrel 75 mg tablet 75 mg PO DAILY BLOOD THINNER #30 02/23/24 05/09/24 Rx tabs hydrocodone-acetaminophen 5-325mg 1 tab PO Q8H PRN pain 10 days #30 05/05/24 Unknown Rx 5mg-325mg tabs Allergy/AdvReac Type Severity Reaction Status Date / Time ceftriaxone Allergy Severe Rash Verified 05/05/24 14:25 vancomycin Allergy Severe Rash Verified 05/05/24 14:25 Penicillins Allergy Swelling Verified 05/05/24 14:25 oxycodone HCl (From Percocet) AdvReac Intermediate Itching Verified 05/05/24 14:25 Family History Mother Hypertension Emphysema/COPD Sister Hypertension Surgical History S/P arteriovenous (AV) fistula creation History of arteriovenostomy for renal dialysis History of surgery History of eye surgery knee scope H/O: hysterectomy Social History Smoking Status: Former smoker alcohol intake: current details: 1 per week substance use type: does not use what type of physical activity do you participate in: none ROS Constitutional Constitutional: Denies chills, fever(s), frequent falls, lethargy or weakness Eyes Eyes: Denies blind spots, change in vision or loss of vision ENT HEENT: Denies bleeding gums, hoarseness or sore throat Cardiovascular Cardiovascular: Denies abdominal pain, bluish discoloration of hand/feet, chest pain with activity, claudication, cold extremities, cyanosis, dyspnea on exertion, erythema on extremities, irregular heart rhythm, leg edema, leg ulcers, numbness in extremities or weakness in extremities Respiratory/Chest Respiratory/Chest: Denies cough, excessive phlegm production, shortness of breath at rest, shortness of breath with exertion or wheezing Gastrointestinal Gastrointestinal: Denies anorexia, change in stool character, constipation, diarrhea, melena or rectal bleeding Genitourinary Genitourinary: Denies dysuria or hematuria Musculoskeletal Musculoskeletal: Denies abnormal gait Integumentary Integumentary: Reports other Details: ; Denies erythema, non-healing lesions or wounds Neurologic Neurologic: Denies abnormal speech, focal weakness, headache(s), loss of vision, numbness, paresthesias or sensory deficit Hematologic/Lymphatic Hematologic/Lymphatic: Denies easy bleeding, easy bruising or lymphadenopathy Vital Signs Vital Signs Vital Signs: 05/10/24 06:34 05/10/24 06:39 Temperature 99.4 F H Temperature Source Temporal Pulse Rate 77 Respiratory Rate 16 Respiratory Pattern Normal Blood Pressure 174/55 H Blood Pressure Mean 94 Blood Pressure Source Monitor Blood Pressure Position Semi-Fowlers Blood Pressure Location Right Arm Pulse Ox 95 Oxygen Delivery Method Room Air Weight Weight: 167 lb 8.821 oz Body Mass Index (BMI) 31.6 Physical Exam Const alert, oriented x3, no apparent distress and healthy appearing General Appearance: cooperative; Negative for combative or lethargic Orientation / Consciousness: awake Exam Limitations: no limitations HEENT Head and Scalp: normocephalic and atraumatic Eyes EOMs intact bilaterally General Eye: normal appearance of both eyes Neck full ROM, no lymphadenopathy and thyroid normal General: trachea midline; Negative for lymphadenopathy or tenderness Thyroid: thyroid normal Resp normal respiratory effort and no use of accessory muscles Effort and Inspection: Negative for labored, stridor or audible wheezes Cardio regular rate and regular rhythm Peripheral Pulses: brachial pulses present and radial pulses present Back/Spine Cervical Spine: cervical ROM normal Extremity full ROM, normal capillary refill and no clubbing, cyanosis or edema Skin no rashes or lesions noted and no wounds Neuro oriented x3, CN's II-XII intact bilaterally, no focal motor deficits and no sensory deficits noted Psych thought process normal, cooperative, affect normal, speech normal and activity/motor behavior normal Results Lab / Micro Data Labs: Laboratory Results - last 24 hr 05/10/24 06:44: POC Glucose 85 Assessment & Plan Assessment/Plan (1) ESRD (end stage renal disease) on dialysis: PLAN: -left chest wall AV graft with cadaver/synthetic composite
[2024-05-10] MEDS: Clindamycin 900 MG/50 ML BAG 75 MG IV (07:36)
[2024-05-10] MEDS: Heparin Injection (Vial) 5,000 UNIT/ML VIAL 5000 UNIT (08:09)
[2024-05-10] MEDS: Heparin 10,000 UNITS/10 ML Vial 10000 UNITS ×2 (08:54→09:12)
[2024-05-10] MEDS: Dextrose 5%-Lactated Ringers 1,000 ML 30 ML IV (08:54)
[2024-05-10] MEDS: Bupivacaine Mpf 0.5% 30 ML VIAL (11:14)
[2024-05-10] MEDS: Lidocaine 1% (20 ml mdv) 20 ML Vial (11:14)
--- NOTE | 2024-05-10 11:15 | EX.PCM.DISCH ---
Discharge Instructions Diet Discharge Diet: No restrictions Activity Lifting Restrictions: do not lift > 20 lbs for 14 days Dressing / Incision Call your doctor if your incision/area has: Sudden Increased Bleeding, Increased Pain/ Swelling and Foul Smelling Discharge Call your doctor if you observe: Fever of 101 or Higher, Coldness, Increased Pain and Numbness or Tingling Remove Dressing in: 2 days Cleanse incision/area with: Soap & Water Follow Up Care Test Results: Test results from this visit will be discussed in further detail at your follow-up appointment, if applicable. Discharge Plan Admission Attending Provider: Tommy Mills Primary Care Provider: Prince Cummins Instructions Print Language: Icelandic Discharge Orders/Prescriptions Prescriptions: New hydrocodone-acetaminophen 5-325 mg tablet 1 tab PO Q8H PRN (Reason: pain) 3 Days Qty: 9 0RF Continued ferrous sulfate [FeroSul] 325 mg (65 mg iron) tablet 325 mg PO DAILY Qty: 90 1RF cilostazol 100 mg tablet 50 mg PO BID Qty: 60 0RF lidocaine [AsperFlex (lidocaine)] 4 % adhesive patch,medicated 1 patch topical DAILY PRN (Reason: pain) Qty: 10 0RF amlodipine 10 mg tablet 10 mg PO DAILY Qty: 7 0RF hydrocodone-acetaminophen 5-325 mg tablet 1 tab PO Q8H PRN (Reason: pain) 10 Days Qty: 30 0RF calcium acetate(phosphat bind) 667 mg capsule 2 cap PO TID cinacalcet 30 mg Tablet 30 mg PO DAILY sevelamer carbonate 800 mg tablet 800 mg PO TID diclofenac sodium [Voltaren Arthritis Pain] 1 % gel 2 g topical ONCE PRN (Reason: ARTHRITIS) Rx Instructions: apply to right knee aspirin 81 mg tablet,delayed release (DR/EC) See Rx Instructions .ROUTE .COMPLEX Qty: 90 3RF Dose Instruction: TAKE 1 TABLET BY MOUTH DAILY Rx Instructions: TAKE 1 TABLET BY MOUTH DAILY clopidogrel 75 mg tablet 75 mg PO DAILY Qty: 30 1RF atorvastatin 80 mg tablet 80 mg PO QHS Qty: 30 1RF Referrals / Follow Up: Prince Cummins DO [Primary Care Provider] - Disposition Disposition (needs filled in before D/C Order can be placed): Home, Self Care
--- NOTE | 2024-05-10 11:21 | PCM.OPRPT ---
Report of Operation Date of Procedure: 05/10/24 Pre-Operative Diagnosis: ESRD Post-Operative Diagnosis: same Surgery/Procedure Performed:: left chest wall AV graft, composite cadaver/ptfe Surgeon: Tommy Mills Type of Anesthesia: General Estimated Blood Loss (mL): 25 Description of Procedure: HPI: Patient is a 68-year-old female who has had multiple AV access creation's resulting in steal in the bilateral upper extremities. She presents now for chest wall AV graft placement in the hopes that more proximal inflow will diminish her risk for steal. Description of procedure: Upon obtaining form consent and verification correct patient procedure site the patient was taken to the operating where she was placed under general anesthesia. She was then positioned prepped and draped in usual sterile fashion time was performed. Transverse incision was made 1 fingerbreadth inferior to the clavicle and Bovie electrocautery was dissect down through the subcutaneous tissue to the level of the fascia. The fascia was then incised and self-retaining retractor put in position. The pectoralis major muscles were then split along their fibers and self-retaining retractors moved deeper into the wound. Further dissection with Bovie was carried down through the adipose tissue and self-retaining retractor moved deeper into the wound once the axillary vein was visualized. Sharp dissection was then used to dissect free the vein proximal and distal with sidebranches ligated with silk ties and divided. A right angle used to place a vessel loop proximal and distal and attention was then turned to the axillary artery. Sharp dissection used dissect free proximal and distal with care taken to identify and protect the adjacent nerves. A right angle was used to place a vessel proximal and distal. A tunneler was then used to tunnel subcutaneously along the superior aspect of the chest with a counterincision at the apex. A 6 mm standard wall PTFE graft was then pulled through the tunnel and the patient was heparinized allowed to circulate for 3 minutes. Given potential risk for infection with AV grafts and the location in the axillary vessels cadaver will be utilized for the arteriovenous anastomosis composite cadaver PTFE graft created. Cadaver femoral-popliteal artery was then thawed and then brought onto the field. The axillary artery was then occluded with Vesseloops and longitudinal arteriotomy created with 11 blade extended the Marinelli scissors. The cadaver graft was then beveled to match the arteriotomy and anastomosis performed using a 5-0 Prolene in a running fashion. After completing the suture line the clamps removed and satisfactory stasis was noted. The cadaver graft was then inspected and all sidebranches were found to be hemostatic. The cadaver graft was then marked to maintain orientation and then cut to length and beveled to match the PTFE graft. End-to-end anastomosis was then performed using a 5-0 Prolene running fashion. After completing suture line clamps were removed and the graft flushed with satisfactory stasis noted. The arterial inflow cadaver was then reclamped and a second section of the femoral-popliteal cadaver then anastomosed to the venous outflow end of the PTFE graft. This was performed using 5-0 Prolene in running fashion after completing the suture line clamps removed and satisfactory stasis was noted. The graft was then reclamped and finally the axillary vein was occluded with Vesseloops and a longitudinal venotomy created with leveling extended Marinelli scissors. The the graft was then cut the length and beveled to match the venotomy and anastomosis performed using a 5-0 Prolene running fashion. Prior to completing suture line vessels were backbled and after completing the suture line clamps removed and satisfactory stasis was noted. In the AV graft and the outflow vein and a palpable pulse in the actual artery distal to the anastomosis. Heparin was then reversed with protamine and the incision inspected for hemostasis. The incision closed with 2-0 Vicryl, 3-0 Vicryl, 4 Monocryl and Dermabond for the skin. The patient was then awake from anesthesia taken to the recovery room for anticipated discharge to home.
--- NOTE | 2024-05-10 14:11 | PCM.POSTANE2 ---
Anesthesia Postop Eval I Sum Anesthesia Postop Eval I Summary Anesthesia Postop Eval I Summary: Anesthesia Postop Eval I: Assessment Summary Airway patent Spontaneous unlabored respirations Mental status nausea Vomiting Anesthesia Postop Eval I: Fluid Summary Crystalloid volume administer (ml) Colloids volume administered ( ml) Blood Product volume administered (ml) Total IV fluid infused Anesthesia Postop Eval I: Summary Notes Anesthesia Complication Anesthesia Complication Comment: Post-operative progress note Anesthesia: Postop Eval II Evaluation Mental status: Awake and Calm Pain Level: 1 nausea: No Vomiting: No Complications Anesthesia Complication: No
--- NOTE | 2024-05-10 14:35 | PCM.POST.ANE ---
Anesthesia: Postop Eval I Current Vital Signs Temperature: 98.5 F Pulse Rate: 79 Blood Pressure: 155/49 Respiratory Rate: 16 Pulse Ox: 100 Oxygen Delivery Method: Room Air Assessment Airway patent: Yes Spontaneous unlabored respirations: Yes Mental status: Awake and Calm nausea: No Vomiting: No Anesthesia Complication: No Fluid Hydration Crystalloid volume administer (ml): 600 Total IV fluid infused: 600 Progress Note Anesthesia document: Postop Eval 1 completed: Yes
== END 2024-05-10 14:08 | disposition home or self-care (01) ==
LOC: SDC 06:06 → AC 06:06
PROVIDERS: PCP Family Medicine; Referring Provider Surgery Trauma Surgery; Visit Provider Surgery Trauma Surgery
PROC: (CPT 36830; principal; 2024-05-10 07:15)
DX: I13.2 Hypertensive heart and chronic kidney disease with heart failure and with stage 5 chronic kidney disease, or end stage renal disease (principal); N18.6 End stage renal disease; I50.32 Chronic diastolic (congestive) heart failure; Z79.2 Long term (current) use of antibiotics; I25.10 Atherosclerotic heart disease of native coronary artery without angina pectoris; I25.2 Old myocardial infarction; E78.00 Pure hypercholesterolemia, unspecified; Z99.2 Dependence on renal dialysis; Z79.02 Long term (current) use of antithrombotics/antiplatelets; Z79.82 Long term (current) use of aspirin; Z79.899 Other long term (current) drug therapy; Z87.891 Personal history of nicotine dependence
CPT/HCPCS: 36830; 01844; 82962; 86850; 86900; 86901; A4648; J7040; J2405; J3490

== ENCOUNTER 2024-05-18 03:46 | Inpatient (IN) | payer MEDICAID, SELFPAY ==
[2024-05-18] VITALS (24 sets, daily range): BP systolic 106–225; BP diastolic 49–93; PULSE 78–106; RESP 12–34; TEMP 36.4–37.1; O2SAT 2–99; BMI 32.8; BMI 31.6; BMI 31.4
--- NOTE | 2024-05-18 03:58 | EKG12_ITS ---
Test Reason : SOB Blood Pressure : / mmHG Vent. Rate : 099 BPM Atrial Rate : 099 BPM P-R Int : 184 ms QRS Dur : 082 ms QT Int : 368 ms P-R-T Axes : 037 078 014 degrees QTc Int : 472 ms Normal sinus rhythm Septal infarct , age undetermined Abnormal ECG Confirmed by ANTONIETA PIZARRO, MEÑO ([id number]), manuscript editor ADRIÁN BURRIS ([id number]) on 05/18/2024 1:24:41 PM Referred By: JONAH Confirmed By:MEÑO FUNG MD
--- NOTE | 2024-05-18 03:58 | RAD_ITS ---
EXAM: XR CHEST, 1 VIEW CLINICAL INDICATION: dyspnea TECHNIQUE: Frontal view of the chest. COMPARISON: No relevant prior studies available. FINDINGS: Worsening heterogeneous airspace disease involving the left mid to lower lung. Stable appearance of airspace disease involving the right lower lobe. Persisting fullness of the hilar regions bilaterally may represent adenopathy or pulmonary arterial enlargement from pulmonary hypertension. No pneumothorax. No other changes. RAD/Chest 1 View (Portable) IMPRESSION: Worsening heterogeneous airspace disease involving the left mid to lower lung is concerning for progressive pneumonia. Electronically Signed: Charles Atkins MD at 4:47 EDT ,
[2024-05-18] MEDS: Ondansetron ODT 4 MG Tablet PO (04:04)
--- NOTE | 2024-05-18 04:05 | ED.RN ---
Unable to obtain med list from granddaughter d/t unsure what she takes. She is going to contact family to attempt med list.
[2024-05-18 04:11] LABS: Absolute Lymphocyte Count 2.36 X10^3/uL (0.83-4.51); Absolute Neutrophil Count 4.6 X10^3/uL (2.0-7.7); Basophil# 0.07 X10^3/uL; Basophil% 0.9 % (0-1); Eosinophil# 0.16 X10^3/uL; Eosinophils% 2.1 % (0-5); Hematocrit 35.5 % (37-47); Hemoglobin 10.9 g/dL (12.0-15.0); Lymphocyte # 2.36 X10^3/ul (0.83-4.51); Lymphocyte % 30.5 % (19-41); Mean Corp Hgb Conc 30.7 g/dL (32-36); Mean Corpuscular Hgb 29.3 pg (27.0-32.0); Mean Corpuscular Volume 95.4 fL (81-99); Mean Platelet Vol. 9.9 fl (6.2-12.0); Monocyte# 0.54 X10^3/uL; NRBC Flagged by Analyzer 0 % (0-5); Neutrophil # 4.56 X10^3/uL (2.7-7.7); Neutrophil % 58.9 % (47-70); Platelet Count 283 K/mm3 (150-450); RBC Distribution Width CV 14.7 % (11.6-14.6); RBC Distribution Width SD 51.6 fl (35.1-43.9); Red Blood Count 3.72 M/mm3 (4.2-5.4); White Blood Count 7.7 K/mm3 (4.4-11.0)
--- NOTE | 2024-05-18 04:24 | EX.ED.DYSGE1 ---
HPI History of Present Illness Chief Complaint: Shortness of Breath Informant: patient, family and EMS Narrative Narrative: Patient is a 68-year-old female with past medical history of end-stage renal disease on dialysis. She receives dialysis Friday and Friday and states she has been getting as directed and her last session was on Friday. She also is a history of COPD hypertension and type 2 diabetes. She does wear 2 to 4 L nasal cannula oxygen occasionally when she feels short of breath. She states that her grandson goes to daycare and that multiple children at daycare been sick and the child has also had congestion and cough and she was around him recently. She states that her symptoms have been ongoing for the past 2 to 3 days but worsened this morning. She states that despite increasing her home nasal cannula oxygen she continued to feel short of breath and therefore called EMS. EMS reports when they arrived the patient was awake and alert but showing signs of respiratory distress and her pulse ox on her nasal cannula oxygen was low at approximately 75% [facility] Medical History Alcohol use Wears dentures Shingles outbreak Arthritis Dietary restriction Normal Holter exam History of echocardiogram Cardiology follow-up encounter History of heart attack CHF (congestive heart failure) Severe protein-calorie malnutrition Malnutrition of moderate degree COPD (chronic obstructive pulmonary disease) CAD (coronary artery disease) (HFpEF) heart failure with preserved ejection fraction Substance abuse Dialysis patient GI bleed Hepatitis Hypertension History of hypertension Chronic progressive renal failure TIA (transient ischemic attack) End-stage renal disease on hemodialysis PONV (postoperative nausea and vomiting) Post-menopausal Wears glasses Ambulates with cane High cholesterol Easy bruising Edentulous Gastric reflux On home oxygen therapy Former smoker Shortness of breath on exertion Leg cramps Hyponatremia ESRD (end stage renal disease) on dialysis Acute and chronic respiratory failure with hypoxia Chronic kidney disease, stage V requiring chronic dialysis Cardiac dysrhythmia, unspecified NSTEMI, initial episode of care Anemia Asthma Stroke Diabetes Rheumatoid arthritis Type II diabetes mellitus Hypertension Home Medications ?Medication ?Instructions ?Recorded ?Last Taken ?Type calcium acetate(phosphat bind) 667 2 cap PO TID SUPPLEMENT 03/07/22 05/09/24 History mg capsule cinacalcet 30 mg tablet 30 mg PO DAILY DIALYSIS 09/19/22 05/09/24 History sevelamer carbonate 800 mg tablet 800 mg PO TID DIALYSIS 01/28/23 05/09/24 History aspirin 81 mg tablet,delayed See Rx Instructions .Route 06/09/23 05/09/24 Rx release .COMPLEX #90 tabs ferrous sulfate 325 mg (65 mg 325 mg PO DAILY SUPPLEMENT #90 tabs 08/27/23 05/09/24 Rx iron) tablet (FeroSul) diclofenac sodium 1 % topical gel 2 g topical ONCE PRN ARTHRITIS 10/03/23 11/24/23 History (Voltaren Arthritis Pain) cilostazol 100 mg tablet 50 mg (1/2 x 100 mg) PO BID #60 10/15/23 05/09/24 Rx tabs amlodipine 10 mg tablet 10 mg PO DAILY BLOOD PRESSURE #7 02/13/24 05/10/24 Rx tabs lidocaine 4 % topical patch 1 patch topical DAILY PRN pain #10 02/13/24 Unknown Rx (AsperFlex (lidocaine)) ea atorvastatin 80 mg tablet 80 mg PO QHS CHOLESTEROL #30 tabs 02/23/24 05/09/24 Rx clopidogrel 75 mg tablet 75 mg PO DAILY BLOOD THINNER #30 02/23/24 05/09/24 Rx tabs hydrocodone-acetaminophen 5-325mg 1 tab PO Q8H PRN pain 3 days #9 05/10/24 Unknown Rx 5mg-325mg tabs Allergy/AdvReac Type Severity Reaction Status Date / Time ceftriaxone Allergy Severe Rash Verified 05/18/24 03:47 vancomycin Allergy Severe Rash Verified 05/18/24 03:47 Penicillins Allergy Swelling Verified 05/18/24 03:47 oxycodone HCl (From Percocet) AdvReac Intermediate Itching Verified 05/18/24 03:47 Family History Mother Hypertension Emphysema/COPD Sister Hypertension Surgical History S/P arteriovenous (AV) fistula creation History of arteriovenostomy for renal dialysis History of surgery History of eye surgery knee scope H/O: hysterectomy Social History Smoking Status: Former smoker alcohol intake: current details: 1 per week substance use type: does not use what type of physical activity do you participate in: none ROS ROS ED Constitutional Constitutional ED: Reports chills and subjective; Denies fever(s) Eyes Eyes: Denies blurry vision or change in vision ENT ENT ED: Reports rhinorrhea and sore throat Cardiovascular Cardiovascular: Denies chest pain Respiratory/Chest Respiratory/Chest: Reports cough and dyspnea Gastrointestinal Gastrointestinal: Denies abdominal pain, diarrhea, nausea or vomiting Musculoskeletal Musculoskeletal: Reports myalgias Integumentary Denies rash Neurologic Neurologic: Reports weakness; Denies headache(s) Hematologic/Lymphatic Hematologic/Lymphatic: Reports easy bleeding and easy bruising Allergic/Immunologic Allergic/Immunologic ED: Denies mouth swelling or tongue swelling EXAM Physical Exam Const Vital Signs: 05/18/24 03:46 05/18/24 03:46 05/18/24 03:51 Temperature 97.6 F L 97.6 F L Temperature Source Temporal Temporal Pulse Rate 106 H 104 H Respiratory Rate 29 H 29 H Respiratory Effort Short of Breath Respiratory Depth Shallow Respiratory Pattern Tachypnea Blood Pressure 140/69 H 140/69 H Blood Pressure Mean 92 92 Pulse Ox 98 98 Oxygen Delivery Method CPAP CPAP Ambu-Bag Fraction of Inspired Oxygen (FIO2) 05/18/24 04:00 05/18/24 04:06 05/18/24 05:00 Temperature 97.8 F Temperature Source Temporal Pulse Rate 100 84 Respiratory Rate 34 H 22 H Respiratory Effort Respiratory Depth Respiratory Pattern Tachypnea Blood Pressure 125/54 H Blood Pressure Mean 77 Pulse Ox 95 96 98 Oxygen Delivery Method Bi-pap Bi-pap Fraction of Inspired Oxygen (FIO2) 50 50 50 05/18/24 05:31 Temperature 97.8 F Temperature Source Pulse Rate 81 Respiratory Rate 22 H Respiratory Effort Respiratory Depth Respiratory Pattern Blood Pressure 145/60 H Blood Pressure Mean 88 Pulse Ox 95 Oxygen Delivery Method Fraction of Inspired Oxygen (FIO2) Positive well nourished and well developed Constitutional Narrative: Patient is in moderate respiratory distress with tachypnea and accessory muscle use General Appearance ED: well developed; Negative for pallor HEENT HEENT Narrative: No tongue or lip swelling no oral lesions no airway edema or compromise There is cobblestoning noted in the posterior pharynx consistent with sinus drainage No secondary findings to suggest infection Eyes PERRL and EOMs intact bilaterally General Eye ED: Yes pale conjunctiva; Negative for scleral icterus Neck supple and no JVD Chest Wall palpation of chest normal Chest Narrative: No bony deformity or crepitance noted Patient has dialysis port in place in the right anterior chest wall without secondary findings to suggest infection Patient also has recent fistula placement in the left anterior chest also without secondary findings to suggest infection Resp Resp Narrative: Patient is in moderate respiratory distress with tachypnea and accessory muscle use Breath sounds are diminished throughout with diffuse rhonchi noted greatest in the right base Cardio regular rhythm Rate: tachycardic GI non-tender, non-distended and no masses GI Narrative: Abdomen is soft nontender and nondistended with hypoactive bowel sounds. No voluntary guarding or rigidity or pulsatile mass. Auscultation: hypoactive bowel sounds Palpation: soft Extremity Extremity Narrative: Trace pitting edema to the bilateral lower extremities Negative Homans' sign bilaterally Neuro oriented x3 and CN's II-XII intact bilaterally Sensorium / Orientation: alert Psych mental status grossly normal Skin no rashes or lesions noted General Skin Exam: Negative for jaundice or pallor MDM MDM MDM Narrative Medical decision making narrative: Patient arrived to the ER on CPAP per EMS. Her pulse ox had improved from approximately 75% on nasal cannula oxygen to the low to mid 90s. She still had increased work of breathing but this was improved from what EMS reported upon initial evaluation. Differential diagnosis is for fluid overload versus pneumonia versus viral infection such as COVID influenza or RSV versus acute blood loss anemia. Secondary to his basic labs with a viral swab and chest x-ray were obtained. Labs revealed no leukocytosis or left shift. Her viral swab was negative for COVID flu and RSV. The x-ray showed changes concerning for progressive/developing pneumonia. However as she is not febrile and does not have a leukocytosis or left shift and she has been exposed to multiple sick children this is most likely a viral infection and we will hold off on antibiotics at this time. The patient was kept on BiPAP as the noninvasive ventilation has helped with work of breathing and improving her pulse ox. At this time she does not have access to BiPAP at home and she is requiring it to keep her work of breathing under control and her pulse ox above 90%. Therefore it is not safe for her to be discharged. The hospitalist was contacted and does agree to accept the patient for further care. As today is a dialysis day for her the hospitalist can consult nephrology to perform dialysis as well. This plan of care was discussed with the patient and family and they are agreeable to it and therefore should be admitted for further treatment. History & Record Review Discussion w/independent historian: EMS personnel, Patient and Family Lab Data Attestation: I reviewed the patient's lab results. Labs: Laboratory Results - last 24 hr 05/18/24 03:58 WBC 7.7 RBC 3.72 L Hgb 10.9 L Hct 35.5 L MCV 95.4 MCH 29.3 MCHC 30.7 L RDW Std Deviation 51.6 H RDW Coeff of Dottie 14.7 H Plt Count 283 MPV 9.9 Immature Gran % (Auto) 0.600 Neut % (Auto) 58.9 Lymph % (Auto) 30.5 [place] % (Auto) 7.0 Eos % (Auto) 2.1 Baso % (Auto) 0.9 Absolute Neuts (auto) 4.6 Absolute Lymphs (auto) 2.36 Nucleated RBC % 0 Sodium 136 Potassium 4.6 Chloride 95 L Carbon Dioxide 30.0 Anion Gap 11 BUN 37 H Creatinine 8.95 H* Estim Creat Clear Calc 5.88 Est GFR (MDRD) Af Amer 6 L Est GFR (MDRD) Non-Af 5 L BUN/Creatinine Ratio 4.1 L Glucose 177 H Calcium 9.5 Phosphorus 6.5 H Magnesium 2.2 Radiography Diagnostic Testing: Clinical Impression(s) from Imaging Studies Chest X-Ray 05/18/24 03:58 IMPRESSION: Worsening heterogeneous airspace disease involving the left mid to lower lung is concerning for progressive pneumonia. Electronically Signed: Charles Atkins MD at 4:47 EDT , 1 view chest x-ray as interpreted by the emergency medicine physician reveals inflammatory changes in the bilateral lower lobes concerning for developing pneumonia Critical Care Time Critical Care Time: Yes Critical care time (excluding procedures): Discussing w/Patient &/or Family/[employer] and - (Critical care time of 33 minutes) Discharge Plan Dx/Rx/DC Orders Clinical Impression: Acute respiratory failure with hypoxia, ESRD (end stage renal disease) on dialysis, Hypertension Disposition Disposition: [facility]
[2024-05-18 04:34] LABS: Anion Gap 11 (5-15); BUN 37 mg/dL (7-18); BUN/Creat Ratio 4.1 RATIO (10-20); Calcium,Total 9.5 mg/dL (8.5-10.1); Chloride 95 mmol/L (98-107); Creatinine, Serum 8.95 mg/dL (0.55-1.02); EST Glomerular Filtration Rate 5 mL/min (>60); Est Glom Filt Rate - Afr Amer 6 mL/min (>60); Estimated Creatinine Clearance 5.88 ml/min; Glucose 177 mg/dL (74-106); Magnesium 2.2 mg/dL (1.6-2.6); Phosphorus 6.5 mg/dL (2.5-4.9); Potassium 4.6 mmol/L (3.5-5.1); Sodium Level 136 mmol/L (136-145)
--- NOTE | 2024-05-18 05:54 | PCM.HP.STD ---
HPI - General General Date of Admission: 05/18/24 Date of Service: 05/18/24 Chief Complaint: Shortness of breath HPI Narrative NATALI KINSEY, is a 68 F who presents to the emergency room with acute shortness of breath. Patient has significant past medical history of end-stage renal disease and is dialysis dependent close on Friday, and Friday. The patient's grandson is reportedly in daycare where there have been numerous cases of viral upper respiratory infections. Patient's COVID test is negative here today. Patient was reportedly hypoxic with a oxygen saturation of 75% prior to arrival and is required BiPAP therapy in the emergency room to maintain her oxygen saturation greater than 90%. Patient states she is feeling better since initiating BiPAP therapy and will be admitted for acute respiratory failure. Patient is also reportedly nauseous and requiring Zofran at the time of my evaluation. She will be admitted to the progressive care unit with BiPAP therapy continued. [facility] Medical History Alcohol use Wears dentures Shingles outbreak Arthritis Dietary restriction Normal Holter exam History of echocardiogram Cardiology follow-up encounter History of heart attack CHF (congestive heart failure) Severe protein-calorie malnutrition Malnutrition of moderate degree COPD (chronic obstructive pulmonary disease) CAD (coronary artery disease) (HFpEF) heart failure with preserved ejection fraction Substance abuse Dialysis patient GI bleed Hepatitis Hypertension History of hypertension Chronic progressive renal failure TIA (transient ischemic attack) End-stage renal disease on hemodialysis PONV (postoperative nausea and vomiting) Post-menopausal Wears glasses Ambulates with cane High cholesterol Easy bruising Edentulous Gastric reflux On home oxygen therapy Former smoker Shortness of breath on exertion Leg cramps Hyponatremia ESRD (end stage renal disease) on dialysis Acute and chronic respiratory failure with hypoxia Chronic kidney disease, stage V requiring chronic dialysis Cardiac dysrhythmia, unspecified NSTEMI, initial episode of care Anemia Asthma Stroke Diabetes Rheumatoid arthritis Type II diabetes mellitus Hypertension Home Medications ?Medication ?Instructions ?Recorded ?Last Taken ?Type calcium acetate(phosphat bind) 667 2 cap PO TID SUPPLEMENT 03/07/22 05/09/24 History mg capsule cinacalcet 30 mg tablet 30 mg PO DAILY DIALYSIS 09/19/22 05/09/24 History sevelamer carbonate 800 mg tablet 800 mg PO TID DIALYSIS 01/28/23 05/09/24 History aspirin 81 mg tablet,delayed See Rx Instructions .Route 06/09/23 05/09/24 Rx release .COMPLEX #90 tabs ferrous sulfate 325 mg (65 mg 325 mg PO DAILY SUPPLEMENT #90 tabs 08/27/23 05/09/24 Rx iron) tablet (FeroSul) diclofenac sodium 1 % topical gel 2 g topical ONCE PRN ARTHRITIS 10/03/23 11/24/23 History (Voltaren Arthritis Pain) cilostazol 100 mg tablet 50 mg (1/2 x 100 mg) PO BID #60 10/15/23 05/09/24 Rx tabs amlodipine 10 mg tablet 10 mg PO DAILY BLOOD PRESSURE #7 02/13/24 05/10/24 Rx tabs lidocaine 4 % topical patch 1 patch topical DAILY PRN pain #10 02/13/24 Unknown Rx (AsperFlex (lidocaine)) ea atorvastatin 80 mg tablet 80 mg PO QHS CHOLESTEROL #30 tabs 02/23/24 05/09/24 Rx clopidogrel 75 mg tablet 75 mg PO DAILY BLOOD THINNER #30 02/23/24 05/09/24 Rx tabs hydrocodone-acetaminophen 5-325mg 1 tab PO Q8H PRN pain 3 days #9 05/10/24 Unknown Rx 5mg-325mg tabs Allergy/AdvReac Type Severity Reaction Status Date / Time ceftriaxone Allergy Severe Rash Verified 05/18/24 03:47 vancomycin Allergy Severe Rash Verified 05/18/24 03:47 Penicillins Allergy Swelling Verified 05/18/24 03:47 oxycodone HCl (From Percocet) AdvReac Intermediate Itching Verified 05/18/24 03:47 Family History Mother Hypertension Emphysema/COPD Sister Hypertension Surgical History S/P arteriovenous (AV) fistula creation History of arteriovenostomy for renal dialysis History of surgery History of eye surgery knee scope H/O: hysterectomy Social History Smoking Status: Former smoker alcohol intake: current details: 1 per week substance use type: does not use what type of physical activity do you participate in: none ROS Constitutional Constitutional: Denies chills or fever(s) Eyes Eyes: Denies blurry vision ENT HEENT: Denies abnormal hearing Cardiovascular Cardiovascular: Denies chest pain Respiratory/Chest Respiratory/Chest: Reports shortness of breath at rest Gastrointestinal Gastrointestinal: Reports nausea; Denies abdominal pain Genitourinary Genitourinary: Denies dysuria Musculoskeletal Musculoskeletal: Denies back pain Integumentary Integumentary: Denies dry skin Neurologic Neurologic: Denies abnormal speech Psychiatric Psychiatric: Denies anxiety Vital Signs Vital Signs Vital Signs: 05/18/24 03:46 05/18/24 03:46 05/18/24 03:51 Temperature 97.6 F L 97.6 F L Temperature Source Temporal Temporal Pulse Rate 106 H 104 H Respiratory Rate 29 H 29 H Respiratory Effort Short of Breath Respiratory Depth Shallow Respiratory Pattern Tachypnea Blood Pressure 140/69 H 140/69 H Blood Pressure Mean 92 92 Pulse Ox 98 98 Oxygen Delivery Method CPAP CPAP Ambu-Bag Fraction of Inspired Oxygen (FIO2) 05/18/24 04:00 05/18/24 04:06 05/18/24 05:00 Temperature 97.8 F Temperature Source Temporal Pulse Rate 100 84 Respiratory Rate 34 H 22 H Respiratory Effort Respiratory Depth Respiratory Pattern Tachypnea Blood Pressure 125/54 H Blood Pressure Mean 77 Pulse Ox 95 96 98 Oxygen Delivery Method Bi-pap Bi-pap Fraction of Inspired Oxygen (FIO2) 50 50 50 05/18/24 05:31 Temperature 97.8 F Temperature Source Pulse Rate 81 Respiratory Rate 22 H Respiratory Effort Respiratory Depth Respiratory Pattern Blood Pressure 145/60 H Blood Pressure Mean 88 Pulse Ox 95 Oxygen Delivery Method Fraction of Inspired Oxygen (FIO2) Weight Weight: 173 lb 11.588 oz Body Mass Index (BMI) 32.8 Physical Exam Const oriented x3 General Appearance: cooperative HEENT normocephalic and head/scalp atraumatic Eyes PERRL Neck no lymphadenopathy Lymph Lymphatic: no lymphadenopathy noted Resp clear to auscultation bilaterally Auscultation: diminished lung sounds; Negative for wheezes Cardio regular rate, regular rhythm, S1 normal heart sound and S2 normal heart sound GI normal to inspection, nondistended, normoactive bowel sounds Extremity normal capillary refill Skin General Skin Exam: no breakdown Neuro no focal motor deficits and no sensory deficits noted Results Lab / Micro Data 05/18/24 03:58 05/18/24 03:58 Labs: Laboratory Results - last 24 hr 05/18/24 03:58: WBC 7.7, RBC 3.72 L, Hgb 10.9 L, Hct 35.5 L, MCV 95.4, MCH 29.3, MCHC 30.7 L, RDW Std Deviation 51.6 H, RDW Coeff of Dottie 14.7 H, Plt Count 283, MPV 9.9, Immature Gran % (Auto) 0.600, Neut % (Auto) 58.9, Lymph % (Auto) 30.5, [place] % (Auto) 7.0, Eos % (Auto) 2.1, Baso % (Auto) 0.9, Absolute Neuts (auto) 4.6, Absolute Lymphs (auto) 2.36, Nucleated RBC % 0, Sodium 136, Potassium 4.6, Chloride 95 L, Carbon Dioxide 30.0, Anion Gap 11, BUN 37 H, Creatinine 8.95 H*, Estim Creat Clear Calc 5.88, Est GFR (MDRD) Af Amer 6 L, Est GFR (MDRD) Non-Af 5 L, BUN/Creatinine Ratio 4.1 L, Glucose 177 H, Calcium 9.5, Phosphorus 6.5 H, Magnesium 2.2 Micro: Microbiology 05/18/24 04:03 Mucosa - Nose SARS-CoV-2, Influenza & RSV (PCR) - Final Imaging Radiology Impression Chest X-Ray 05/18/24 03:58 IMPRESSION: Worsening heterogeneous airspace disease involving the left mid to lower lung is concerning for progressive pneumonia. Electronically Signed: Charles Atkins MD at 4:47 EDT , Assessment & Plan Assessment/Plan (1) ESRD (end stage renal disease) on dialysis: (2) Acute respiratory failure with hypoxia: PLAN: Plan 1 acute respiratory failure with hypoxia?admit patient to progressive care unit continue with BiPAP therapy initiated in the emergency room. Will hold off on antibiotics for now assuming this patient has been exposed to a viral illness due to the fact that there is no leukocytosis nor left shift at this time. Will add Solu-Medrol IV every 8 hours. And DuoNeb respiratory treatments every 4 hours as needed. Repeat CBC BMP in the next day 2. End-stage renal disease?if patient is continuing to stay inpatient will then need dialysis on and nephrology consult 3. DVT prophylaxis?SCDs Charges/Coding Visit Charges Inpatient E&M: 47831 Init Hosp L2
[2024-05-18] MEDS: Ondansetron 4 MG/2 ML Vial IV ×2 (05:58→12:34)
[2024-05-18 08:37] LABS: AST(SGOT) 21 U/L (15-37); Alanine Aminotransfer ALT/SGPT 14 U/L (13-56); Albumin, Serum 1.8 g/dL (3.2-5.0); Alkaline Phosphatase 149 U/L (45-117); Bilirubin, Direct 0.27 mg/dL (0.00-0.30); CRP < 2.90 mg/L (0.0-3.0); Globulin 4.3 g/dL (2.2-4.2); Protein, Total 6.1 g/dL (6.4-8.2)
[2024-05-18 08:42] LABS: Erythrocyte Sedimentation Rate 60 mm/hr (0-30)
[2024-05-18 08:44] LABS: Lactic Acid 1.1 mmol/L (0.4-1.9)
[2024-05-18] MEDS: Aspirin E.C. 81 MG Tablet PO (09:38)
[2024-05-18] MEDS: Cinacalcet HCl 30 MG Tablet PO (09:38)
[2024-05-18] MEDS: Calcium Acetate 667 MG Capsule 1334 MG PO (09:38)
[2024-05-18] MEDS: Clopidogrel Bisulfate 75 MG Tablet PO (09:38)
[2024-05-18] MEDS: Ferrous Sulfate 325 MG Tablet PO (09:38)
[2024-05-18] MEDS: Cilostazol 50 MG Tablet PO (09:38)
[2024-05-18] MEDS: guaiFENesin 1,200 MG Tablet 1200 MG PO ×2 (09:55→21:30)
[2024-05-18] MEDS: PureFlow B 2K Dialysis Soln 1 BAG 6 BAG PF (11:43)
[2024-05-18] MEDS: 0.9% Normal Saline 1,000 ML IV.SOLN. 1000 ML OPERA.SITE (11:43)
[2024-05-18] MEDS: Heparin 10,000 UNITS/10 ML Vial IV (11:43)
--- NOTE | 2024-05-18 12:17 | PN.HOSP_ITS ---
Reason for Visit Reason for Visit: Diagnoses Acute respiratory failure with hypoxia (05/18/24) End stage renal disease (05/18/24) Dependence on renal dialysis (05/18/24) Objective Data Objective Data Vital Signs: Vital Signs Temp Pulse Resp BP Pulse Ox O2 Del Method O2 Flow Rate 98.5 F 82 21 H 132/49 H 96 Nasal Cannula 5 05/18/24 07:00 05/18/24 07:00 05/18/24 07:00 05/18/24 07:00 05/18/24 07:16 05/18/24 07:16 05/18/24 07:16 FiO2 50 05/18/24 06:00 Oxygen Flow Rate (L/min) 5 Oxygen Delivery Method Nasal Cannula Weight: 173 lb 11.588 oz Body Mass Index (BMI) 32.8 Lab / Micro Data 05/18/24 03:58 05/18/24 03:58 Labs: Laboratory Results - last 24 hr 05/18/24 03:58: WBC 7.7, RBC 3.72 L, Hgb 10.9 L, Hct 35.5 L, MCV 95.4, MCH 29.3, MCHC 30.7 L, RDW Std Deviation 51.6 H, RDW Coeff of Dottie 14.7 H, Plt Count 283, MPV 9.9, Immature Gran % (Auto) 0.600, Neut % (Auto) 58.9, Lymph % (Auto) 30.5, [place] % (Auto) 7.0, Eos % (Auto) 2.1, Baso % (Auto) 0.9, Absolute Neuts (auto) 4.6, Absolute Lymphs (auto) 2.36, Nucleated RBC % 0, Sodium 136, Potassium 4.6, Chloride 95 L, Carbon Dioxide 30.0, Anion Gap 11, BUN 37 H, Creatinine 8.95 H*, Estim Creat Clear Calc 5.88, Est GFR (MDRD) Af Amer 6 L, Est GFR (MDRD) Non-Af 5 L, BUN/Creatinine Ratio 4.1 L, Glucose 177 H, Calcium 9.5, Phosphorus 6.5 H, Magnesium 2.2 Micro: Microbiology 05/18/24 04:03 Mucosa - Nose SARS-CoV-2, Influenza & RSV (PCR) - Final Radiography Diagnostic Testing: Radiology Impression Chest X-Ray 05/18/24 03:58 IMPRESSION: Worsening heterogeneous airspace disease involving the left mid to lower lung is concerning for progressive pneumonia. Electronically Signed: Charles Atkins MD at 4:47 EDT , Physical Exam Narrative Seen and examined. Patient looks mild short of breath but feels better than yesterday. She said she was very short of breath, dyspnea at rest, felt like feverish with chills and sweating yesterday. Still makes urine and denies burning micturition. She also is mildly nauseated. Physical exam General: Alert, Oriented x3, Cooperative, looks sick. HEENT: Atraumatic, PERRLA, EOMI, Normocephalic Oral: Oral mucosa dry. No Gingival or Mucosal Lesions/ Ulcerations Neck: Supple, No JVD, Negative Carotid Bruits Chest wall/Lungs: Right upper chest dialysis catheter. Air entry diminished in bilateral lung bases. Mild coarse crepitation/rhonchi bilaterally. Cardiovascular: Regular rate, Regular Rhythm, Normal S1, Normal S2, No M/G/R Abdomen: Bowel Sounds Present, Soft, Non Tender, Non-Distended : No dysuria. No renal angle tenderness. No suprapubic tenderness. Extremities: No edema, Capillary Refill Less than 3 Seconds Skin: No rashes, No breakdown Musculoskeletal: No Tenderness to Palpation of Joints or Extremities Neurological: Cranial nerves II-XII grossly intact, DTR 2+/4. No acute focal neurological deficit. Psych/Mental Status: Flat affect Assessment & Plan Assessment/Plan (1) ESRD (end stage renal disease) on dialysis: (2) Acute respiratory failure with hypoxia: PLAN: Plan 68-year-old female was admitted with shortness of breath for 2 to 3 days but worsened on the day of admission. On 2 to 4 L of home oxygen occasionally as needed for shortness of breath. Her grandson is cough and congestion. Many children have been sick. EMS vitals shows tachycardia, labored breathing wheezing pulse ox 77% on 6 L of home oxygen and was put on 15 L nonrebreather. She was given DuoNeb by EMS. Blood glucose 1244 1. Acute hypoxic respiratory failure most likely due to bilateral pneumonia: Patient is being admitted in PCU on BiPAP. Currently on 50% FiO2. With severe hypoxia, tachypnea and dyspnea, fever and slight dry cough, differential diagnosis of pneumonia is very high. Patient empirically started on IV Levaquin. Triple PCR for flu, RSV and COVID are 19. ESR elevated. CRP normal. Lactic acid normal. Liver chemistry shows elevated alkaline phosphatase which may be from bony origin or from inflammation. Respiratory panel ordered. Sputum and blood culture ordered. Patient might not mount leukocytosis or fever, possible may be mild immunocompromise due to ESRD on hemodialysis. Continue DuoNeb every 4 hours as needed. IV Solu-Medrol. Close monitoring. Chest x-ray individually reviewed and shows bilateral lower lobes patchy and heterogeneous alveolar opacity. Right lower lobe opacity looks similar to the previous chest x-ray of 02/24/2023 2. End-stage renal disease on TTS: Patient mildly nauseated before and during dialysis. Symptomatic IV Zofran ordered. Screen Cutter And Trimmer Dr. Gaytan consulted whom she follows as an outpatient. 3. Mild normochromic normocytic anemia: H&H 10.9/35.5%. Platelet count 283,000. ESR elevated. 4. DVT prophylaxis?SCDs. Patient on baby aspirin, Plavix and cilostazol for history of peripheral arterial disease stroke and right-sided carotid stenosis. In review of mild to moderate anemia , therefore heparin 5000 units subcutaneous twice daily. Hold cilostazol during hospital stay. Charges/Coding Visit Charges Inpatient E&M: 02287 Subs Hosp L2
[2024-05-18] MEDS: 0.9% Saline Lock 10 ML Syringe IV (12:34)
[2024-05-18] MEDS: levoFLOXacin IV 750 MG/150 ML BAG 100 MG IV (14:21)
[2024-05-18] MEDS: HYDROcodone Bitartrate/Apap 5/325 Tablet PO (14:23)
--- NOTE | 2024-05-18 16:09 | CASEMGMT ---
NIKKI LINARES Assessment Face to Face with patient for initial transition planning/care coordination assessment. NIKKI LINARES introduced self and role at [facility], pt voices understanding. Pt is A&Ox4 and is resting comfortably in bed and is calm. Care providers, pharmacy, and demographics verified. Admitting dx: RF with hypoxia PCP: Prince Cummins Specialists: Lucila (Nephro), Friend (GI) Preferred Pharmacy: [facility] Insurance: [facility] Prescription Benefit: Yes LNOK: Ki Enamorado (GS), Anne Enamorado (GD) Living Arrangements: Pt lives with her GS and GD in a two story home with 2 steps to enter ADLs/IADLs: Reports ind Transportation: GD, GS, [place] DME: Home oxygen through [employer]. Confirmed 3L continuous is current order. Pt has a concentrator, portability, and a pulse ox. Pt states a family member can bring in portable tank at time of DC. Pt states that she is going to be getting a BGM soon as her PCP wrote her a Rx for this. Pt also states that she has a shower chair, cane, FWW, and medical alert system. HHC/SNF: Pt states that she is active with [facility]. Pt reports SNF years ago and cannot recall the name of the facility. CM: Pt states that she has a CM through [facility] and that her name is Klarissa. HD: Pt attends OP HD at [facility] in [place] at 1100. [place] provides transportation for the pt Pt?s goal/Plan: TBD. 6-Click is 15. PT eval pending. Pt states that she wishes to Dc home with the continuation of HHC at this time. CM to follow. Yudelka Welsh RN, CM
[2024-05-18] MEDS: Ipratropium/Albuterol Sulfate 3 ML AMPUL.NEB INHALATION (19:01)
--- NOTE | 2024-05-18 20:38 | CPS ---
Patient refused PAP therapy for the night.
[2024-05-18] MEDS: Heparin Injection (Vial) 5,000 UNIT/ML VIAL 5000 UNIT SC (21:30)
[2024-05-18] MEDS: Atorvastatin Calcium 80 MG Tablet PO (21:30)
[2024-05-19] VITALS (8 sets, daily range): BP systolic 117–135; BP diastolic 34–52; PULSE 73–87; RESP 16–18; TEMP 36.2–37.1; O2SAT 96–100
[2024-05-19 05:59] LABS: Absolute Lymphocyte Count 0.37 X10^3/uL (0.83-4.51); Absolute Neutrophil Count 1.9 X10^3/uL (2.0-7.7); Basophil# 0.01 X10^3/uL; Basophil% 0.4 % (0-1); Hematocrit 29.2 % (37-47); Lymphocyte # 0.37 X10^3/ul (0.83-4.51); Lymphocyte % 15.8 % (19-41); Mean Corp Hgb Conc 30.8 g/dL (32-36); Mean Corpuscular Hgb 29.4 pg (27.0-32.0); Mean Corpuscular Volume 95.4 fL (81-99); Mean Platelet Vol. 9.8 fl (6.2-12.0); Monocyte# 0.09 X10^3/uL; Monocyte% 3.8 % (0-10); NRBC Flagged by Analyzer 0 % (0-5); Neutrophil # 1.85 X10^3/uL (2.7-7.7); Neutrophil % 79.1 % (47-70); POSITIVE COUNT YES; POSITIVE DIFFERENTIAL YES; Platelet Count 185 K/mm3 (150-450); RBC Distribution Width CV 14.7 % (11.6-14.6); RBC Distribution Width SD 50.9 fl (35.1-43.9); Red Blood Count 3.06 M/mm3 (4.2-5.4); White Blood Count 2.3 K/mm3 (4.4-11.0)
--- NOTE | 2024-05-19 06:28 | PCM.HOSP.N ---
Hospitalist Note Bld Cx with GPC in clusters, will add vanc.
[2024-05-19] MEDS: Ipratropium/Albuterol Sulfate 3 ML AMPUL.NEB INHALATION ×4 (06:59→19:37)
[2024-05-19 07:09] LABS: Anion Gap 7 (5-15); BUN 34 mg/dL (7-18); Calcium,Total 8.5 mg/dL (8.5-10.1); Chloride 99 mmol/L (98-107); Creatinine, Serum 6.86 mg/dL (0.55-1.02); EST Glomerular Filtration Rate 6 mL/min (>60); Est Glom Filt Rate - Afr Amer 8 mL/min (>60); Glucose 135 mg/dL (74-106); Potassium 5.2 mmol/L (3.5-5.1); Sodium Level 133 mmol/L (136-145)
[2024-05-19] MEDS: Vancomycin HCl 2,000 MG in 0.9% Normal Saline (500mL Bag) 500 ML 250 MG IV (08:18)
[2024-05-19] MEDS: Ferrous Sulfate 325 MG Tablet PO (08:21)
[2024-05-19] MEDS: Aspirin E.C. 81 MG Tablet PO (08:21)
[2024-05-19] MEDS: Clopidogrel Bisulfate 75 MG Tablet PO (08:21)
[2024-05-19] MEDS: Cinacalcet HCl 30 MG Tablet PO (08:21)
[2024-05-19] MEDS: guaiFENesin 1,200 MG Tablet 1200 MG PO ×2 (08:21→21:20)
[2024-05-19] MEDS: Calcium Acetate 667 MG Capsule 1334 MG PO ×3 (08:21→17:33)
[2024-05-19] MEDS: Heparin Injection (Vial) 5,000 UNIT/ML VIAL 5000 UNIT SC ×2 (08:21→21:21)
[2024-05-19 08:47] LABS: Differential Indicated SCAN CRITERIA MET
--- NOTE | 2024-05-19 09:57 | PN.HOSP_ITS ---
Reason for Visit Reason for Visit: Diagnoses Acute respiratory failure with hypoxia (05/18/24) End stage renal disease (05/18/24) Dependence on renal dialysis (05/18/24) Objective Data Objective Data Vital Signs: Vital Signs Temp Pulse Resp BP Pulse Ox O2 Del Method O2 Flow Rate 97.8 F 84 18 117/41 L 97 Nasal Cannula 2 05/19/24 08:12 05/19/24 08:12 05/19/24 08:12 05/19/24 08:12 05/19/24 08:12 05/19/24 08:12 05/19/24 08:12 FiO2 50 05/18/24 06:00 Oxygen Flow Rate (L/min) 2 Oxygen Delivery Method Nasal Cannula Weight: 166 lb 9.583 oz Body Mass Index (BMI) 31.4 Intake & Output: Intake and Output for Last 24 Hours 05/17/24 05/18/24 05/19/24 23:59 23:59 23:59 Intake Total 200 / 200 0 / 0 Output Total 1150 / 1150 0 / 0 Balance -950 / -950 0 / 0 Lab / Micro Data 05/19/24 05:20 05/19/24 05:20 Labs: Laboratory Results - last 24 hr 05/19/24 05:20: WBC 2.3 L, RBC 3.06 L, Hgb 9.0 L, Hct 29.2 L, MCV 95.4, MCH 29.4, MCHC 30.8 L, RDW Std Deviation 50.9 H, RDW Coeff of Dottie 14.7 H, Plt Count 185, MPV 9.8, Immature Gran % (Auto) 0.900, Neut % (Auto) 79.1 H, Lymph % (Auto) 15.8 L, [place] % (Auto) 3.8, Eos % (Auto) 0.0, Baso % (Auto) 0.4, Absolute Neuts (auto) 1.9 L, Absolute Lymphs (auto) 0.37 L, Nucleated RBC % 0, Differential Comment , Diff Path Review January, Sodium 133 L, Potassium 5.2 H, Chloride 99, Carbon Dioxide 27.0, Anion Gap 7, BUN 34 H, Creatinine 6.86 H, Estim Creat Clear Calc 7.50, Est GFR (MDRD) Af Amer 8 L, Est GFR (MDRD) Non-Af 6 L, BUN/Creatinine Ratio 5.0 L, Glucose 135 H, Calcium 8.5 Micro: Microbiology 05/18/24 08:05 Blood Culture (Wb) - Port Blood Culture - Preliminary 05/18/24 11:45 Mucosa - Nose Respiratory Panel (PCR) - Final 05/18/24 04:03 Mucosa - Nose SARS-CoV-2, Influenza & RSV (PCR) - Final Physical Exam Narrative Seen and examined. Overall patient is feeling better. Cough is also better. No fever. On 2 L of oxygen Physical exam General: Alert, Oriented x3, Cooperative, looks sick. HEENT: Atraumatic, PERRLA, EOMI, Normocephalic Oral: Oral mucosa dry. No Gingival or Mucosal Lesions/ Ulcerations Neck: Supple, No JVD, Negative Carotid Bruits Chest wall/Lungs: Right upper chest dialysis catheter. Air entry diminished in bilateral lung bases. Lungs clear. Cardiovascular: Regular rate, Regular Rhythm, Normal S1, Normal S2, No M/G/R Abdomen: Bowel Sounds Present, Soft, Non Tender, Non-Distended : No dysuria. No renal angle tenderness. No suprapubic tenderness. Extremities: No edema, Capillary Refill Less than 3 Seconds Skin: No rashes, No breakdown Musculoskeletal: No Tenderness to Palpation of Joints or Extremities Neurological: Cranial nerves II-XII grossly intact, DTR 2+/4. No acute focal neurological deficit. Psych/Mental Status: Flat affect Assessment & Plan Assessment/Plan (1) ESRD (end stage renal disease) on dialysis: (2) Acute respiratory failure with hypoxia: PLAN: Plan 68-year-old female was admitted with shortness of breath for 2 to 3 days but worsened on the day of admission. On 2 to 4 L of home oxygen occasionally as needed for shortness of breath. Her grandson is cough and congestion. Many children have been sick. EMS vitals shows tachycardia, labored breathing wheezing pulse ox 77% on 6 L of home oxygen and was put on 15 L nonrebreather. She was given DuoNeb by EMS. Blood glucose 124 1. Acute hypoxic respiratory failure most likely due to bilateral pneumonia: Patient is being admitted in PCU on BiPAP. Currently on 50% FiO2. With severe hypoxia, tachypnea and dyspnea, fever and slight dry cough, differential diagnosis of pneumonia is very high. Patient empirically started on IV Levaquin. Triple PCR for flu, RSV and COVID are 19. ESR elevated. CRP normal. Lactic acid normal. Liver chemistry shows elevated alkaline phosphatase which may be from bony origin or from inflammation. Respiratory panel ordered. Sputum and blood culture ordered. Patient might not mount leukocytosis or fever, possible may be mild immunocompromise due to ESRD on hemodialysis. Continue DuoNeb every 4 hours as needed. IV Solu-Medrol. Close monitoring. Chest x-ray individually reviewed and shows bilateral lower lobes patchy and heterogeneous alveolar opacity. Right lower lobe opacity looks similar to the previous chest x-ray of 02/24/202305/19: Clinically patient looks better. On 2 L of oxygen. Prelim blood culture shows GPC. IV vancomycin added overnight. Will follow cultures. Respiratory panel negative. 2. End-stage renal disease on TTS: Patient mildly nauseated before and during dialysis. Symptomatic IV Zofran ordered. Dry Cleaner Apprentice Dr. Gaytan consulted whom she follows as an outpatient. 05/19: Patient will be dialyzed next on . 3. Mild normochromic normocytic anemia: H&H 10.9/35.5%. Platelet count 283,000. ESR elevated. 05/19: H&H 9.0/30%. Mild leukopenia 2.3 thousand. Platelet count 1 95,000. Counts are low due to infection. 4. DVT prophylaxis?SCDs. Patient on baby aspirin, Plavix and cilostazol for history of peripheral arterial disease stroke and right-sided carotid stenosis. In review of mild to moderate anemia , therefore heparin 5000 units subcutaneous twice daily. Hold cilostazol during hospital stay. Charges/Coding Visit Charges Inpatient E&M: 50410 Subs Hosp L2
--- NOTE | 2024-05-19 10:15 | PCM.RX.CS ---
Consult Antibiotic Management Pharmacy has been consulted to manage selected antibiotic: Vancomycin Type of Intervention Type of Consult: New start Suspected Infection Suspected Infection: Bacteremia Labs Labs: Sodium 133 mmol/L (136-145) L 05/19/24 05:20 Potassium 5.2 mmol/L (3.5-5.1) H 05/19/24 05:20 Chloride 99 mmol/L (98-107) 05/19/24 05:20 Carbon Dioxide 27.0 mmol/L (21.0-32.0) 05/19/24 05:20 Anion Gap 7 (5-15) 05/19/24 05:20 BUN 34 mg/dL (7-18) H 05/19/24 05:20 Creatinine 6.86 mg/dL (0.55-1.02) H 05/19/24 05:20 Est GFR (MDRD) Af Amer 8 mL/min (>60) L 05/19/24 05:20 Est GFR (MDRD) Non-Af 6 mL/min (>60) L 05/19/24 05:20 BUN/Creatinine Ratio 5.0 RATIO (10-20) L 05/19/24 05:20 Glucose 135 mg/dL (74-106) H 05/19/24 05:20 Microbiology Microbiology: Microbiology 05/18/24 08:05 Blood Culture (Wb) - Port Blood Culture - Preliminary 05/18/24 11:45 Mucosa - Nose Respiratory Panel (PCR) - Final 05/18/24 04:03 Mucosa - Nose SARS-CoV-2, Influenza & RSV (PCR) - Final Dosing Weight Weight used for dosin.6 kg Estimated Creatinine Clearance Estimated Creatinine Clearance: on HD Goal Trough Goal Trough: 15-20 mcg/mL Pharmacy Plan for Drug Dosing Pharmacy Plan for Drug Dosing: Give initial loading dose (25mg/kg) of 2000mg IV x1 today. The patient gets dialysis on a // schedule so will give a 2nd dose of vanc 500mg IV x1 (based on the patient's weight) after the next dialysis session which will be tomorrow (). Subsequent doses after tomorrow's dose will be determined by pre-dialysis vanc random levels, the first of which will be on Friday. Pharmacy Service will continue to monitor and adjust dosing as required. Follow-Up Labs Follow-Up Labs: Trough: Vancomycin (random pre-HD) Date/Time Labs Ordered Labs to be done on [date and time ordered]: 05/22/24 0600
--- NOTE | 2024-05-19 11:35 | SP.MBSS_ITS ---
Modified Barium Swallow Patient Information Study Date: 05/19/24 Study Time: 10:30 Direct Billable Minutes: 77 Total Minutes procedure & reportin Diagnosis: PNA J13 Referring Physician: Deni Gleason Reason for Referral: Objectively assess swallow function, assess risk for aspiration, and determine recommendations for least restrictive diet textures and compensatory strategies to improve safety of swallow. Medical History: Patient presented to [facility] ED 05/18/2024 with acute shortness of breath. Patient has extensive PMH listed below. Patient was reportedly hypoxic with a oxygen saturation of 75% prior to arrival. She required BiPAP in the ED. Patinet also nauseous and was administered Zofran in the ED. She was admitted to PCU for management of acute hypoxic respiratory failure. Per RN, she has been coughing with medication administration. She was referred for BSE. BSE completed 05/18/24, which revealed coughing w/ oral intake trials, desatting from mid-upper 90s to 91% w/ accompanied SOB after limited po trials. HELP DESK ADMINISTRATOR recommended NPO with MBSS planned for 05/19/2024 prior to diet advancement. PMH: Alcohol use, Wears dentures, Shingles outbreak, Arthritis, Dietary restriction, Normal Holter exam, History of echocardiogram, History of heart attack (NSTEMI), CHF, Severe protein-calorie malnutrition, Malnutrition of moderate degree, COPD, CAD, HFpEF, Substance abuse, Dialysis patient, GI bleed, Hepatitis, HTN, TIA, End-stage renal disease on hemodialysis, Wears glasses, Ambulates with cane, High cholesterol, Easy bruising, Edentulous, GERD, On home oxygen therapy (2-4L), Former smoker, Shortness of breath on exertion, Hyponatremia, Acute and chronic respiratory failure with hypoxia, CKD stage V, Cardiac dysrhythmia unspecified, Anemia, Asthma, DM type 2, RA, See EMR for full PMH. Current Diet Ordered: NPO - ok for ice chips w/ sup to monitor SpO2 Dentition: Upper Dentures and Lower Dentures Mental Status: WNL Respiratory Status: Oxygenating on 2L/M nasal cannula Penetration-Aspiration Scale Penetration-Aspiration Scale: OBJECTIVE ASSESSMENT OF SWALLOW FUNCTION (QUANTITATIVE ? PER TRIAL): PENETRATION / ASPIRATION SCALE (DURON): 1 = does not enter airway 2 = enters airway/above vocal folds/ejected 3 = enters airway/above vocal folds/not ejected 4 = enters airway/contacts vocal folds/ejected 5 = enters airway/contacts vocal folds/not ejected 6 = enters airway/below vocal folds/ejected 7 = enters airway/below vocal folds/not ejected despite effort 8 = enters airway/below vocal folds/no effort VIDEOFLOROSCOPIC SCALE SCORE (DURON): Grade I = aspiration of material that has penetrated into the laryngeal vestibule, intact cough reflex Grade II = aspiration < 10 % of the bolus, intact cough reflex Grade III = aspiration of < 10 % of the bolus, reduced cough reflex or aspiration of > 10 % of the bolus, intact cough reflex Grade IV = aspiration of > 10 % of the bolus, reduced cough reflex Penetration-Aspiration Scale Score Thin Liquid via teaspoon: Result: 1= does not enter airway Thin Liquid via teaspoon Trial 2: Result: 1= does not enter airway Thin Liquid via small single sip: cup: Result: 1= does not enter airway Thin Liquid via sequential sips: cup: Result: 3= enters airways/above vocal folds/not ejected (trace) [place] Thick Liquid via large single sip: cup: Result: 1= does not enter airway Pudding via teaspoon: Result: 1= does not enter airway Comment: Esophageal screen - Trace retention in UES/upper esophagus; otherwise, complete esophageal clearance. 1/2 Cookie: Result: 1= does not enter airway Thin Liquid via single sip: straw: Result: 3= enters airways/above vocal folds/not ejected (trace) Comment: large sip, cued cough and re-swallow after trial was completed to clear trace residues from laryngeal vestibule Thin Liquid via single sip: straw Trial 2: Result: 1= does not enter airway Comment: small sip Oral Phase Labial Seal: No Labial Escape Tongue Control During Bolus Hold: Posterior escape of greater than half of bolus Bolus Preparation/Mastication: Disorganized chewing/mashing with solid pieces of bolus unchewed Bolus Transport/Lingual Motion: Slowed tongue motion Oral Residue: Residue collection on oral structures Pharyngeal Phase Initiation of Pharyngeal Swallow: Bolus head in pyriforms Soft Palate Elevation: Trace column of contrast/air between soft palate and pharyngeal wall Laryngeal Elevation: Partial superior movement thyroid cart/partial apprx aryt- epig petiole Anterior Hyoid Excursion: Partial anterior movement Epiglottic Movement: Complete inversion Laryngeal Vestibule Closure at Height of Swallow: Incomplete; narrow column of air/contrast in laryngeal vestibule Pharyngeal Stripping Wave: Present - complete Pharyngoesophageal Segment Opening: Parital distension and partial duration; parital obstruction of flow Tongue Base Retraction: Narrow column of contrast between tongue base & post. pharyngeal wall Pharyngeal Residue: Collection of residue within or on pharyngeal structures Esophageal Phase Esophageal Clearance: Esophageal retention (trace retention in UES and upper esophagus) Diagnosis/Impression Diagnosis: Mild oropharyngeal dysphagia R13.12 Impression: The oral phase is primarily marked by... -Independent use of large sip size with posterior loss of >1/2 the bolus to the pyriforms prior to swallow onset. -Slow tongue motion for A-P transport. -Decreased mastication of cookie with pieces of cookie appearing un-chewed. -Mild oral residue, which fully cleared with a second swallow as needed. The pharyngeal phase is primarily marked by... -Decreased airway closure during the swallow w/ sequential or large sips of thin liquids due to decreased anterior hyoid excursion and laryngeal elevation. -Patient had laryngeal penetration of sequential and large sips of thin liquids, which did not fully eject after the swallow. Cough and re-swallow and decreased bolus size/rate were most effective in decreasing risk for aspiration. No aspiration was observed during the evaluation. Recommendations Diet: Regular Textures (Easy to Chew textures - IDDSI Level 7) and Thin Liquids Compensatory Strategies: Small Bites, Small Sips (Intermittent cough and re- swallow), Slow Rate, Alternate bites/solids and sips/liquids, Sitting upright and Remain sitting upright for 30 minutes after PO intake Supervision: Distant Supervision Recommend Repeat Modified Barium Swallow: No Need for Skilled Speech Therapy Services: Yes Comment: -Train the patient in use of strategies to decrease risk for aspiration. -Ongoing assessment of diet tolerance of recommended textures. -Train the patient in oropharyngeal exercise program to improve bolus control and airway closure (lingual resistance, [place], CTAR). Education Completed: 1. Described result of evaluation., 2. Pt understands evaluation & agrees with goals and treatment plan. and 7. Pt requires further education on strategies & risks. Status Active ST Patient: Active Contact Information [facility] [place] Speech Therapy:: Lily Chandler M.A. CCC-HELP DESK ADMINISTRATOR? Speech-Language Pathologist?? [facility] [place] [address] [place] [address]? [email or web address]?? [phone]
--- NOTE | 2024-05-19 11:45 | PCM.CONS.R ---
Assessment & Plan Assessment/Plan (1) ESRD (end stage renal disease) on dialysis: PLAN: On hemodialysis Friday, , Friday schedule. We will plan for dialysis tomorrow as per schedule. Being treated for pneumonia. For swallow evaluation today. Mild hyperkalemia today, can monitor for now. HPI Consult Data Date of Consult: 05/19/24 HPI Narrative Reason for Consultation: ESRD HPI Narrative: NATALI KINSEY, is a 68 F who presents To the hospital with shortness of breath. Nephrology on consultation in view of ESRD. On hemodialysis Friday, , Friday schedule. She did receive dialysis yesterday, uneventful. For barium swallow today. [facility] Medical History Alcohol use Wears dentures Shingles outbreak Arthritis Dietary restriction Normal Holter exam History of echocardiogram Cardiology follow-up encounter History of heart attack CHF (congestive heart failure) Severe protein-calorie malnutrition Malnutrition of moderate degree COPD (chronic obstructive pulmonary disease) CAD (coronary artery disease) (HFpEF) heart failure with preserved ejection fraction Substance abuse Dialysis patient GI bleed Hepatitis Hypertension History of hypertension Chronic progressive renal failure TIA (transient ischemic attack) End-stage renal disease on hemodialysis PONV (postoperative nausea and vomiting) Post-menopausal Wears glasses Ambulates with cane High cholesterol Easy bruising Edentulous Gastric reflux On home oxygen therapy Former smoker Shortness of breath on exertion Leg cramps Hyponatremia ESRD (end stage renal disease) on dialysis Acute and chronic respiratory failure with hypoxia Chronic kidney disease, stage V requiring chronic dialysis Cardiac dysrhythmia, unspecified NSTEMI, initial episode of care Anemia Asthma Stroke Diabetes Rheumatoid arthritis Type II diabetes mellitus Hypertension Home Medications ?Medication ?Instructions ?Recorded ?Last Taken ?Type calcium acetate(phosphat bind) 667 2 cap PO TID SUPPLEMENT 03/07/22 05/09/24 History mg capsule cinacalcet 30 mg tablet 30 mg PO DAILY DIALYSIS 09/19/22 05/09/24 History sevelamer carbonate 800 mg tablet 800 mg PO TID DIALYSIS 01/28/23 05/09/24 History aspirin 81 mg tablet,delayed See Rx Instructions .Route 06/09/23 05/09/24 Rx release .COMPLEX #90 tabs ferrous sulfate 325 mg (65 mg 325 mg PO DAILY SUPPLEMENT #90 tabs 08/27/23 05/09/24 Rx iron) tablet (FeroSul) diclofenac sodium 1 % topical gel 2 g topical ONCE PRN ARTHRITIS 10/03/23 11/24/23 History (Voltaren Arthritis Pain) cilostazol 100 mg tablet 50 mg (1/2 x 100 mg) PO BID #60 10/15/23 05/09/24 Rx tabs amlodipine 10 mg tablet 10 mg PO DAILY BLOOD PRESSURE #7 02/13/24 05/10/24 Rx tabs lidocaine 4 % topical patch 1 patch topical DAILY PRN pain #10 02/13/24 Unknown Rx (AsperFlex (lidocaine)) ea atorvastatin 80 mg tablet 80 mg PO QHS CHOLESTEROL #30 tabs 02/23/24 05/09/24 Rx clopidogrel 75 mg tablet 75 mg PO DAILY BLOOD THINNER #30 02/23/24 05/09/24 Rx tabs hydrocodone-acetaminophen 5-325mg 1 tab PO Q8H PRN pain 3 days #9 05/10/24 Unknown Rx 5mg-325mg tabs Allergy/AdvReac Type Severity Reaction Status Date / Time ceftriaxone Allergy Severe Rash Verified 05/18/24 03:47 vancomycin Allergy Unknown Rash Verified 05/19/24 06:48 Penicillins Allergy Swelling Verified 05/18/24 03:47 oxycodone HCl (From Percocet) AdvReac Intermediate Itching Verified 05/18/24 03:47 Family History Mother Hypertension Emphysema/COPD Sister Hypertension Surgical History S/P arteriovenous (AV) fistula creation History of arteriovenostomy for renal dialysis History of surgery History of eye surgery knee scope H/O: hysterectomy Social History Smoking Status: Former smoker alcohol intake: current details: 1 per week substance use type: does not use what type of physical activity do you participate in: none ROS ROS Narrative negative except above Physical Exam Narrative Alert awake oriented x 3 no obvious distress no pallor no icterus no JVD s1s2 no murmurs lungs clear abdomen soft no organomegaly no edema no cyanosis Lab / Micro Data 05/19/24 05:20 09/04/24 05:20 Labs: Laboratory Results - last 24 hr 05/19/24 05:20: WBC 2.3 L, RBC 3.06 L, Hgb 9.0 L, Hct 29.2 L, MCV 95.4, MCH 29.4, MCHC 30.8 L, RDW Std Deviation 50.9 H, RDW Coeff of Dottie 14.7 H, Plt Count 185, MPV 9.8, Immature Gran % (Auto) 0.900, Neut % (Auto) 79.1 H, Lymph % (Auto) 15.8 L, [place] % (Auto) 3.8, Eos % (Auto) 0.0, Baso % (Auto) 0.4, Absolute Neuts (auto) 1.9 L, Absolute Lymphs (auto) 0.37 L, Nucleated RBC % 0, Differential Comment , Diff Path Review January, Sodium 133 L, Potassium 5.2 H, Chloride 99, Carbon Dioxide 27.0, Anion Gap 7, BUN 34 H, Creatinine 6.86 H, Estim Creat Clear Calc 7.50, Est GFR (MDRD) Af Amer 8 L, Est GFR (MDRD) Non-Af 6 L, BUN/Creatinine Ratio 5.0 L, Glucose 135 H, Calcium 8.5 Micro: Microbiology 05/18/24 08:05 Blood Culture (Wb) - Port Blood Culture - Preliminary 05/18/24 11:45 Mucosa - Nose Respiratory Panel (PCR) - Final
[2024-05-19] MEDS: Ondansetron 4 MG/2 ML Vial IV (17:29)
[2024-05-19] MEDS: HYDROcodone Bitartrate/Apap 5/325 Tablet PO (21:20)
[2024-05-19] MEDS: Atorvastatin Calcium 80 MG Tablet PO (21:21)
[2024-05-20] VITALS (19 sets, daily range): BP systolic 105–202; BP diastolic 43–70; PULSE 72–98; RESP 15–20; TEMP 35.9–36.8; O2SAT 90–99; BMI 31.4; BMI 31.1
[2024-05-20] MEDS: Ipratropium/Albuterol Sulfate 3 ML AMPUL.NEB INHALATION ×2 (07:09→14:37)
[2024-05-20] MEDS: 0.9% Saline Lock 10 ML Syringe IV ×2 (08:02→11:21)
[2024-05-20] MEDS: 0.9% Normal Saline 1,000 ML IV.SOLN. 1000 ML OPERA.SITE (08:02)
[2024-05-20] MEDS: PureFlow B 2K Dialysis Soln 1 BAG 6 BAG PF (08:03)
[2024-05-20 08:29] LABS: Pathologist Review Reviewed
--- NOTE | 2024-05-20 08:55 | DCINST_ITS ---
Discharge Instructions Diet Discharge Diet: Low fat / Low cholesterol and 2000 mg Sodium Diet Activity Discharge Activity: Return to Normal Activity Weight Bearing Status: Weight bearing as tolerated Dressing / Incision Call your doctor if you observe: Fever of 101 or Higher, Coldness, Increased Pain, Numbness or Tingling, Change in Color, Inability to urinate, Inability to have a bowel movement, Shortness of breath, Dizziness, Fainting spells, Swelling in the ankles, Chest pain, Prolonged hiccupping, Increased palpitations (irregular heartbeat) and Calf discomfort Follow Up Care When: IN 2 WEEKS Test Results: Test results from this visit will be discussed in further detail at your follow- up appointment, if applicable. Discharge Plan Admission Admit Date/Time: 05/18/24 06:06 Primary Reason for Your Visit: Bilateral pneumonia., ESRD on hemodialysis. Attending Provider: Deni Gleason Primary Care Provider: Prince Cummins Consulting Providers: Isaiah Davies; Africa Gaytan Discharge Orders/Prescriptions Prescriptions: New guaifenesin [Mucus Relief ER] 1,200 mg Tablet Extended Release 12hr 1,200 mg PO BID 7 Days Qty: 14 0RF levofloxacin 500 mg tablet 500 mg PO Q48H 7 Days Qty: 4 0RF prednisone 20 mg tablet 40 mg PO DAILY 5 Days Qty: 10 0RF Continued ferrous sulfate [FeroSul] 325 mg (65 mg iron) tablet 325 mg PO DAILY Qty: 90 1RF lidocaine [AsperFlex (lidocaine)] 4 % adhesive patch,medicated 1 patch topical DAILY PRN (Reason: pain) Qty: 10 0RF amlodipine 10 mg tablet 10 mg PO DAILY Qty: 7 0RF calcium acetate(phosphat bind) 667 mg capsule 2 cap PO TID cinacalcet 30 mg Tablet 30 mg PO DAILY sevelamer carbonate 800 mg tablet 800 mg PO TID diclofenac sodium [Voltaren Arthritis Pain] 1 % gel 2 g topical ONCE PRN (Reason: ARTHRITIS) Rx Instructions: apply to right knee hydrocodone-acetaminophen 5-325 mg tablet 1 tab PO Q8H PRN (Reason: pain) 3 Days Qty: 9 0RF aspirin 81 mg tablet,delayed release (DR/EC) See Rx Instructions .ROUTE .COMPLEX Qty: 90 3RF Dose Instruction: TAKE 1 TABLET BY MOUTH DAILY Rx Instructions: TAKE 1 TABLET BY MOUTH DAILY atorvastatin 80 mg tablet 80 mg PO QHS Qty: 30 1RF clopidogrel 75 mg tablet 75 mg PO DAILY Qty: 30 1RF Held cilostazol 100 mg tablet 50 mg PO BID Qty: 60 0RF Hold Instructions: Hold for 1 week while patient is taking levofloxacin. Referrals / Follow Up: Prince Cummins DO [Primary Care Provider] - Within 2 Weeks Christiano Cummins DO [Med Staff - Active Staff] - Within 1 Month Africa Gaytan MD [Med Staff - Consulting] - Within 2 Weeks Disposition Disposition (needs filled in before D/C Order can be placed): Home Health Service
[2024-05-20] MEDS: Heparin 10,000 UNITS/10 ML Vial IV (10:56)
--- NOTE | 2024-05-20 11:05 | PCM.PN.REN ---
Subjective Subjective Resting in bed. Seen and examined on hemodialysis, tolerating treatment well. No overnight events. No complaints Objective Data Objective Data Vital Signs: Vital Signs Temp Pulse Resp BP Pulse Ox O2 Del Method O2 Flow Rate 98.2 F 98 15 132/54 H 98 Nasal Cannula 2 05/20/24 07:31 05/20/24 10:49 05/20/24 10:49 05/20/24 10:49 05/20/24 10:49 05/20/24 10:49 05/20/24 10:49 FiO2 50 05/18/24 06:00 Oxygen Flow Rate (L/min) 2 Oxygen Delivery Method Nasal Cannula Weight: 75.6 kg Body Mass Index (BMI) 31.4 Intake & Output: Intake and Output for Last 24 Hours 05/18/24 05/19/24 05/20/24 23:59 23:59 23:59 Intake Total 200 / 200 740 / 740 Output Total 1150 / 1150 0 / 0 0 / 0 Balance -950 / -950 740 / 740 0 / 0 Lab / Micro Data 05/19/24 05:20 05/19/24 05:20 Labs: Laboratory Results - last 24 hr 05/19/24 05:20: Diff Path Review Reviewed Micro: Microbiology 05/18/24 08:05 Blood Culture (Wb) - Port Blood Culture - Preliminary Coag Negative Staph 05/18/24 11:45 Mucosa - Nose Respiratory Panel (PCR) - Final 05/18/24 04:03 Mucosa - Nose SARS-CoV-2, Influenza & RSV (PCR) - Final Physical Exam Narrative Alert awake oriented x 3 no obvious distress s1s2 no murmurs lungs clear abdomen soft no edema Tunneled hemodialysis catheter Assessment & Plan Assessment/Plan (1) ESRD (end stage renal disease) on dialysis: PLAN: -ESRD on hemodialysis Friday, , Friday schedule. Undergoing hemodialysis today on 2K bath with around 1 L fluid removal. Patient is near her EDW. -Bilateral pneumonia; overall improving with IV steroids and antibiotics -Anemia of chronic disease; will monitor hemoglobin trends. Patient receives BHAVIN and iron at kidney center. -Possible discharge to home today. Next dialysis will be at the kidney center on Friday
[2024-05-20] MEDS: guaiFENesin 1,200 MG Tablet 1200 MG PO (11:16)
[2024-05-20] MEDS: Clopidogrel Bisulfate 75 MG Tablet PO (11:17)
[2024-05-20] MEDS: Aspirin E.C. 81 MG Tablet PO (11:17)
[2024-05-20] MEDS: Ferrous Sulfate 325 MG Tablet PO (11:17)
[2024-05-20] MEDS: Heparin Injection (Vial) 5,000 UNIT/ML VIAL 5000 UNIT SC (11:18)
[2024-05-20] MEDS: levoFLOXacin IV 500 MG/100 ML BAG 100 MG IV (11:20)
--- NOTE | 2024-05-20 11:54 | CASEMGMT ---
NIKKI LINARES in to discuss needs at discharge [facility] patient. Patient states she would like to discharge home. RN VIJAY updated patient that she will need to work with therapy prior to discharge, patient agreeable. Patient states she is acitve with [facility]. Updates sent to [facility] and they states she is not active with patient and they are unable to accept patient. NIKKI LINARES called and spoke with granddaughter. Per granddaughter patient has aides 2 times per week setup through [facility]. Granddaughter states that patient would benefit from [facility] for usp and therapy at discharge. Due to patient being straight Medicaid, multiple referrals to be made and provide options to patient when available. Granddaughter aware to bring oxygen tank for discharge. CM will continue to follow this patient and plan for safe discharge.
--- NOTE | 2024-05-20 12:35 | CASEMGMT ---
Addendum entered by Neva Hernandez 05/20/24 12:49: [facility], [facility], [facility], and [facility] have declined. Neva Hernandez DC Planning Asst. Original Note: Discharge Planning HH referral sent to [facility], [facility], [facility], [facility], [facility], and [facility]. Neva Hernandez DC Planning Asst.
--- NOTE | 2024-05-20 14:54 | CASEMGMT ---
After several referrals being sent, patient was accepted by [facility] with start of care for tomorrow. NIKKI LINARES in to updated patient, granddaughter at bedside. Patient agreeable to [facility] and voiced appreciation. Granddaughter has portable oxygen tank in car for discharge. Patient and granddaughter denied further questions or concerns. NIKKI LINARES updated discharge plan.
--- NOTE | 2024-05-20 15:37 | DS.PCM_ITS ---
Providers Date of Admission: 05/18/24 Date of Discharge: 05/20/24 Primary Care Physician: Dr. Prince Cummins, DO Consultations 05/18/24 08:11 Consult: Nephrology Routine Consulting Provider: Africa Gaytan Reason for Consult: ESRD EMERGENT Consult: No MD Notified: Yes Date Notified: 05/18/24 Time Notified: 08:11 Method of Notification: Verbal Reason For Visit: RESPIRATORY FAILURE WITH HYPOXIA Diagnosis Discharge Diagnosis (1) ESRD (end stage renal disease) on dialysis: Status: Acute Code(s): N18.6 - End stage renal disease; Z99.2 - Dependence on renal dialysis Plan 68-year-old female was admitted with shortness of breath for 2 to 3 days but worsened on the day of admission. On 2 to 4 L of home oxygen occasionally as needed for shortness of breath. Her grandson is cough and congestion. Many children have been sick. EMS vitals shows tachycardia, labored breathing wheezing pulse ox 77% on 6 L of home oxygen and was put on 15 L nonrebreather. She was given DuoNeb by EMS. Blood glucose 124 1. Acute hypoxic respiratory failure most likely due to bilateral pneumonia: Patient is being admitted in PCU on BiPAP. Currently on 50% FiO2. With severe hypoxia, tachypnea and dyspnea, fever and slight dry cough, differential diagnosis of pneumonia is very high. Patient empirically started on IV Levaquin. Triple PCR for flu, RSV and COVID are 19. ESR elevated. CRP normal. Lactic acid normal. Liver chemistry shows elevated alkaline phosphatase which may be from bony origin or from inflammation. Respiratory panel ordered. Sputum and blood culture ordered. Patient might not mount leukocytosis or fever, possible may be mild immunocompromise due to ESRD on hemodialysis. Continue DuoNeb every 4 hours as needed. IV Solu-Medrol. Close monitoring. Chest x-ray individually reviewed and shows bilateral lower lobes patchy and heterogeneous alveolar opacity. Right lower lobe opacity looks similar to the previous chest x-ray of 02/24/202305/19: Clinically patient looks better. On 2 L of oxygen. Prelim blood culture shows GPC. IV vancomycin added overnight. Will follow cultures. Respiratory panel negative. 05/20: Overall patient respiratory status is much improved. She is not short of breath at rest or mild exertion. Home oxygen qualification done and patient requires 2 L at rest, 98% and 90% on 2 L on ambulation. Patient is discharged on prednisone burst therapy 40 mg daily for 5 days, antibiotic Levaquin for total of 7 days and Mucinex. Advised to follow-up in pulmonary clinic. Blood culture came out coagulase-negative staph, skin contamination. Does not need treatment. 2. End-stage renal disease on TTS: Patient mildly nauseated before and during dialysis. Symptomatic IV Zofran ordered. Circuit Breaker Supervisor Dr. Gaytan consulted whom she follows as an outpatient. 05/19: Patient will be dialyzed next on . 05/20 follow-up with the shoe sewing machine operator and tender. 3. Mild normochromic normocytic anemia: H&H 10.9/35.5%. Platelet count 283,000. ESR elevated. 05/19: H&H 9.0/30%. Mild leukopenia 2.3 thousand. Platelet count 1 95,000. Counts are low due to infection. 4. DVT prophylaxis?SCDs. Patient on baby aspirin, Plavix and cilostazol for history of peripheral arterial disease stroke and right-sided carotid stenosis. In review of mild to moderate anemia , therefore heparin 5000 units subcutaneous twice daily. Hold cilostazol during hospital stay. Discharge home. Discharge medication reconciliation done. Discharge follow-up instructions completed. Discharge process discussed with the patient and all questions were answered to patient's satisfaction. Follow with PCP in 1 to 2 weeks Total time spent, exact 35 minutes on discharge meds reconciliation, examination, coordination of care with nurses and ancillary staff, review of imaging and blood test and discussion with the patient on follow-up instructions. Medications at Discharge Home Medications calcium acetate(phosphat bind) 667 mg capsule 2 cap PO TID SUPPLEMENT 03/07/22 cinacalcet 30 mg tablet 30 mg PO DAILY DIALYSIS 09/19/22 sevelamer carbonate 800 mg tablet 800 mg PO TID DIALYSIS 01/28/23 ferrous sulfate 325 mg (65 mg iron) tablet (FeroSul) 325 mg PO DAILY SUPPLEMENT #90 tabs 08/27/23 diclofenac sodium 1 % topical gel (Voltaren Arthritis Pain) 2 g topical ONCE PRN ARTHRITIS 10/03/23 cilostazol 100 mg tablet 50 mg (1/2 x 100 mg) PO BID #60 tabs 10/15/23 amlodipine 10 mg tablet 10 mg PO DAILY BLOOD PRESSURE #7 tabs 02/13/24 lidocaine 4 % topical patch (AsperFlex (lidocaine)) 1 patch topical DAILY PRN pain #10 ea 02/13/24 hydrocodone-acetaminophen 5-325mg 5mg-325mg 1 tab PO Q8H PRN pain 3 days #9 tabs 05/10/24 aspirin 81 mg tablet,delayed release See Rx Instructions .Route .COMPLEX #90 tabs 05/20/24 atorvastatin 80 mg tablet 80 mg PO QHS CHOLESTEROL #30 tabs 05/20/24 clopidogrel 75 mg tablet 75 mg PO DAILY BLOOD THINNER #30 tabs 05/20/24 guaifenesin 1,200 mg tablet, extended release 12 hr (Mucus Relief ER) 1,200 mg PO BID 7 days #14 tabs 05/20/24 levofloxacin 500 mg tablet 500 mg PO Q48H 1 week #4 tabs 05/20/24 prednisone 20 mg tablet 40 mg (2 x 20 mg) PO DAILY 5 days #10 tabs 05/20/24 Physical Exam Narrative Seen and examined. Overall patient is feeling better. Cough is also better. No fever. On 2 L of oxygen. No acute complaint. Patient slept well last night. Physical exam General: Alert, Oriented x3, Cooperative, general condition much improved. HEENT: Atraumatic, PERRLA, EOMI, Normocephalic Oral: Oral mucosa dry. No Gingival or Mucosal Lesions/ Ulcerations Neck: Supple, No JVD, Negative Carotid Bruits Chest wall/Lungs: Right upper chest dialysis catheter. Air entry diminished in bilateral lung bases. Lungs clear. Cardiovascular: Regular rate, Regular Rhythm, Normal S1, Normal S2, No M/G/R Abdomen: Bowel Sounds Present, Soft, Non Tender, Non-Distended : No dysuria. No renal angle tenderness. No suprapubic tenderness. Extremities: No edema, Capillary Refill Less than 3 Seconds Skin: No rashes, No breakdown Musculoskeletal: No Tenderness to Palpation of Joints or Extremities Neurological: Cranial nerves II-XII grossly intact, DTR 2+/4. No acute focal neurological deficit. Psych/Mental Status: Flat affect Weight / BMI Weight Weight: 164 lb 14.492 oz Body Mass Index (BMI) 31.1 ABG / Lab / Microbiology Data 05/19/24 05:20 05/19/24 05:20 Laboratory: Laboratory Results - last 24 hr 05/19/24 05:20: Diff Path Review Reviewed Microbiology: Microbiology 05/18/24 08:05 Blood Culture (Wb) - Port Blood Culture - Preliminary Coag Negative Staph 05/18/24 11:45 Mucosa - Nose Respiratory Panel (PCR) - Final 05/18/24 04:03 Mucosa - Nose SARS-CoV-2, Influenza & RSV (PCR) - Final D/C Instructions Discharge Diet: Low fat / Low cholesterol and 2000 mg Sodium Diet Weight Bearing Status: Weight bearing as tolerated Call your doctor if you observe: Fever of 101 or Higher, Coldness, Increased Pain, Numbness or Tingling, Change in Color, Inability to urinate, Inability to have a bowel movement, Shortness of breath, Dizziness, Fainting spells, Swelling in the ankles, Chest pain, Prolonged hiccupping, Increased palpitations (irregular heartbeat) and Calf discomfort When: IN 2 WEEKS Meaningful Use Info Meaningful Use Meaningful Use Diagnoses (Choose all that apply): None applicable Ischemic Stroke Statin Dosing Therapy Reference: STATIN DOSE THERAPY REFERENCE: * Patients > 75 years receive moderate or high dose statin therapy. * Patients 75 years or YOUNGER should receive HIGH intensity statin dose unless contraindicated. You will be required to document reason for non-treatment if statin daily dose does not meet guidelines. HIGH DOSE STATIN THERAPY DAILY Atorvastatin > than or = to 40 mg Rosuvastatin > than or = to 20 mg Amlodipine + Atorvastatin > than or = to 2.5/40 mg Ezetimibe + Simvastatin 10/80 mg Simvastatin 80mg Discharge Plan Admission Admit Date/Time: 05/18/24 06:06 Primary Reason for Your Visit: Bilateral pneumonia., ESRD on hemodialysis. Attending Provider: Deni Gleason Primary Care Provider: Prince Cummins Consulting Providers: Isaiah Davies; Africa Gaytan Discharge Orders/Prescriptions Prescriptions: New guaifenesin [Mucus Relief ER] 1,200 mg Tablet Extended Release 12hr 1,200 mg PO BID 7 Days Qty: 14 0RF levofloxacin 500 mg tablet 500 mg PO Q48H 7 Days Qty: 4 0RF prednisone 20 mg tablet 40 mg PO DAILY 5 Days Qty: 10 0RF Continued ferrous sulfate [FeroSul] 325 mg (65 mg iron) tablet 325 mg PO DAILY Qty: 90 1RF lidocaine [AsperFlex (lidocaine)] 4 % adhesive patch,medicated 1 patch topical DAILY PRN (Reason: pain) Qty: 10 0RF amlodipine 10 mg tablet 10 mg PO DAILY Qty: 7 0RF calcium acetate(phosphat bind) 667 mg capsule 2 cap PO TID cinacalcet 30 mg Tablet 30 mg PO DAILY sevelamer carbonate 800 mg tablet 800 mg PO TID diclofenac sodium [Voltaren Arthritis Pain] 1 % gel 2 g topical ONCE PRN (Reason: ARTHRITIS) Rx Instructions: apply to right knee hydrocodone-acetaminophen 5-325 mg tablet 1 tab PO Q8H PRN (Reason: pain) 3 Days Qty: 9 0RF aspirin 81 mg tablet,delayed release (DR/EC) See Rx Instructions .ROUTE .COMPLEX Qty: 90 3RF Dose Instruction: TAKE 1 TABLET BY MOUTH DAILY Rx Instructions: TAKE 1 TABLET BY MOUTH DAILY atorvastatin 80 mg tablet 80 mg PO QHS Qty: 30 1RF clopidogrel 75 mg tablet 75 mg PO DAILY Qty: 30 1RF Held cilostazol 100 mg tablet 50 mg PO BID Qty: 60 0RF Hold Instructions: Hold for 1 week while patient is taking levofloxacin. Referrals / Follow Up: rPince Cummins DO [Primary Care Provider] - Within 2 Weeks Christiano Cummins DO [Med Staff - Active Staff] - Within 1 Month Africa Gaytan MD [Med Staff - Consulting] - Within 2 Weeks Disposition Disposition (needs filled in before D/C Order can be placed): Home Health Service Charges/Coding Visit Charges Inpatient E&M: 01887 Disch Hosp >30min
== END 2024-05-20 16:36 | disposition home health service (06) | DRG 133 ==
LOC: ED 04:52 → PCU 07:09
PROVIDERS: Admitting Provider Family Medicine; Emergency Provider Emergency Medicine; PCP Family Medicine; Visit Provider Internal Medicine
DX: J96.01 Acute respiratory failure with hypoxia (principal); I13.2 Hypertensive heart and chronic kidney disease with heart failure and with stage 5 chronic kidney disease, or end stage renal disease; J18.9 Pneumonia, unspecified organism; N18.6 End stage renal disease; D63.1 Anemia in chronic kidney disease; I50.32 Chronic diastolic (congestive) heart failure; Z99.2 Dependence on renal dialysis; I25.10 Atherosclerotic heart disease of native coronary artery without angina pectoris; I25.2 Old myocardial infarction; Z79.02 Long term (current) use of antithrombotics/antiplatelets; Z79.82 Long term (current) use of aspirin; Z79.899 Other long term (current) drug therapy; Z86.73 Personal history of transient ischemic attack (TIA), and cerebral infarction without residual deficits; Z87.891 Personal history of nicotine dependence
CPT/HCPCS: 71045; 74230; 80048; 80076; 83605; 83735; 84100; 85025; 85652; 86140; 87040; 87077; 87186; 87631; 87633; 90937; 92526; 92610; 92611; 93005; 94002; 94640; 97162; 97166; 97530; 97535; 97802; 99283; J7030; J7040; A4216; G0257; J2405

== ENCOUNTER 2024-05-20 21:53 | Inpatient (IN) | payer MEDICAID, SELFPAY ==
[2024-05-20 21:55] VITALS: BP 140/87; PULSE 123; RESP 36; TEMP 35.6; O2SAT 100
--- NOTE | 2024-05-20 22:10 | EKG12_ITS ---
Test Reason : SOB Blood Pressure : / mmHG Vent. Rate : 107 BPM Atrial Rate : 107 BPM P-R Int : 194 ms QRS Dur : 086 ms QT Int : 340 ms P-R-T Axes : 053 068 -70 degrees QTc Int : 453 ms Sinus tachycardia Septal infarct , age undetermined Marked ST abnormality, possible inferior subendocardial injury Abnormal ECG Confirmed by ANTONIETA PIZARRO, MEÑO ([id number]), school photograph editor ADRIÁN BURRIS ([id number]) on 05/24/2024 8:18:06 AM Referred By: Confirmed By:MEÑO FUNG MD
[2024-05-20 22:12] VITALS: O2SAT 92
[2024-05-20 22:15] VITALS: PULSE 120; RESP 12; RESP 28; O2SAT 97
[2024-05-20] MEDS: Ipratropium/Albuterol Sulfate 3 ML AMPUL.NEB INHALATION (22:15)
[2024-05-20] MEDS: Albuterol 2.5 MG/3 ML VIAL.NEB. INHALATION (22:15)
[2024-05-20] MEDS: MethylPREDNISolone 125 MG/2 ML Vial 60 MG IV (22:15)
--- NOTE | 2024-05-20 22:28 | ED.VIS.DYS ---
HPI History of Present Illness Chief Complaint: Shortness of Breath Informant: patient and EMS Narrative Narrative: 68-year-old female presenting to the emergency room with dyspnea. Patient was admitted in the hospital with pneumonia end-stage renal disease on dialysis. She has an underlying history of COPD is chronically on 2 to 3 L home oxygen. Apparently the patient was discharged today at 1630 hrs. About 30 minutes prior to arrival she acutely got short of breath. Patient was given a breathing treatment by EMS. The patient is due for dialysis tomorrow. She had DVT prophylaxis in the hospital. She is chronically on Plavix and aspirin and on cilostazol. Patient was discharged home with additional Levaquin and prednisone. Patient was noted to have elevated troponin recently. No current chest pain. [facility] Medical History Alcohol use Wears dentures Shingles outbreak Arthritis Dietary restriction Normal Holter exam History of echocardiogram Cardiology follow-up encounter History of heart attack CHF (congestive heart failure) Severe protein-calorie malnutrition Malnutrition of moderate degree COPD (chronic obstructive pulmonary disease) CAD (coronary artery disease) (HFpEF) heart failure with preserved ejection fraction Substance abuse Dialysis patient GI bleed Hepatitis Hypertension History of hypertension Chronic progressive renal failure TIA (transient ischemic attack) End-stage renal disease on hemodialysis PONV (postoperative nausea and vomiting) Post-menopausal Wears glasses Ambulates with cane High cholesterol Easy bruising Edentulous Gastric reflux On home oxygen therapy Former smoker Shortness of breath on exertion Leg cramps Hyponatremia ESRD (end stage renal disease) on dialysis Acute and chronic respiratory failure with hypoxia Chronic kidney disease, stage V requiring chronic dialysis Cardiac dysrhythmia, unspecified NSTEMI, initial episode of care Anemia Asthma Stroke Diabetes Rheumatoid arthritis Type II diabetes mellitus Hypertension Home Medications ?Medication ?Instructions ?Recorded ?Last Taken ?Type calcium acetate(phosphat bind) 667 2 cap PO TID SUPPLEMENT 03/07/22 05/09/24 History mg capsule cinacalcet 30 mg tablet 30 mg PO DAILY DIALYSIS 09/19/22 05/09/24 History sevelamer carbonate 800 mg tablet 800 mg PO TID DIALYSIS 01/28/23 05/09/24 History ferrous sulfate 325 mg (65 mg 325 mg PO DAILY SUPPLEMENT #90 tabs 08/27/23 05/09/24 Rx iron) tablet (FeroSul) diclofenac sodium 1 % topical gel 2 g topical ONCE PRN ARTHRITIS 10/03/23 11/24/23 History (Voltaren Arthritis Pain) cilostazol 100 mg tablet 50 mg (1/2 x 100 mg) PO BID #60 10/15/23 05/09/24 Rx tabs amlodipine 10 mg tablet 10 mg PO DAILY BLOOD PRESSURE #7 02/13/24 05/10/24 Rx tabs lidocaine 4 % topical patch 1 patch topical DAILY PRN pain #10 02/13/24 Unknown Rx (AsperFlex (lidocaine)) ea aspirin 81 mg tablet,delayed See Rx Instructions .Route 05/20/24 Unknown Rx release .COMPLEX #90 tabs atorvastatin 80 mg tablet 80 mg PO QHS CHOLESTEROL #30 tabs 05/20/24 Unknown Rx carvedilol 12.5 mg tablet 12.5 mg PO BID 05/20/24 Unknown History clopidogrel 75 mg tablet 75 mg PO DAILY BLOOD THINNER #30 05/20/24 Unknown Rx tabs guaifenesin 1,200 mg tablet, 1,200 mg PO BID 7 days #14 tabs 05/20/24 Unknown Rx extended release 12 hr (Mucus Relief ER) hydralazine 25 mg tablet 25 mg PO TID 05/20/24 Unknown History multivitamin with folic acid 400 1 tab PO DAILY 05/20/24 Unknown History mcg tablet (Daily-Caron (with folic acid)) prednisone 20 mg tablet 40 mg (2 x 20 mg) PO DAILY 5 days 05/20/24 Unknown Rx #10 tabs Allergy/AdvReac Type Severity Reaction Status Date / Time ceftriaxone Allergy Severe Rash Verified 05/20/24 21:54 vancomycin Allergy Unknown Rash Verified 05/20/24 21:54 Penicillins Allergy Swelling Verified 05/20/24 21:54 oxycodone HCl (From Percocet) AdvReac Intermediate Itching Verified 05/20/24 21:54 Family History Mother Hypertension Emphysema/COPD Sister Hypertension Surgical History S/P arteriovenous (AV) fistula creation History of arteriovenostomy for renal dialysis History of surgery History of eye surgery knee scope H/O: hysterectomy Social History Smoking Status: Former smoker alcohol intake: current details: 1 per week substance use type: does not use what type of physical activity do you participate in: none ROS ROS ED Constitutional Constitutional ED: Denies chills or weight loss Eyes Eyes: Denies change in vision or diplopia ENT ENT ED: Denies ear pain, rhinorrhea or sore throat Cardiovascular Cardiovascular: Denies chest pain, orthopnea, palpitations or racing heartbeat Respiratory/Chest Respiratory/Chest: Reports cough, dyspnea and dyspnea on exertion; Denies orthopnea Gastrointestinal Gastrointestinal: Denies abdominal pain, diarrhea, nausea or vomiting Genitourinary Genitourinary ED: Denies dysuria, hematuria or urinary frequency Musculoskeletal Musculoskeletal: Denies arthralgias or myalgias Integumentary Denies abscess or rash Neurologic Neurologic: Denies headache(s) or weakness Psychiatric Psychiatric: Denies anxiety, depression, suicidal ideation or suicidal thoughts Endocrine Endocrinology: Denies polydipsia, polyphagia or polyuria Allergic/Immunologic Allergic/Immunologic ED: Denies mouth swelling, tongue swelling or urticaria EXAM Physical Exam Const Vital Signs: 05/20/24 21:55 05/20/24 21:59 05/20/24 22:12 Temperature 96.1 F L Temperature Source Axillary Pulse Rate 123 H Respiratory Rate 36 H Respiratory Effort Short of Breath Blood Pressure 140/87 H Blood Pressure Mean 104 Pulse Ox 100 92 Oxygen Delivery Method Non-Rebreather Nasal Cannula Oxygen Flow Rate (L/min) 4 Fraction of Inspired Oxygen (FIO2) 05/20/24 22:15 05/20/24 22:15 05/20/24 22:59 Temperature 98.3 F Temperature Source Temporal Pulse Rate 120 H 120 H 109 H Respiratory Rate 28 H 28 H 22 H Respiratory Effort Blood Pressure 118/79 Blood Pressure Mean 92 Pulse Ox 97 97 Oxygen Delivery Method Bi-pap Oxygen Flow Rate (L/min) Fraction of Inspired Oxygen (FIO2) 35 30 05/21/24 00:00 05/21/24 00:19 Temperature 99.5 F H 99.5 F H Temperature Source Oral Pulse Rate 86 86 Respiratory Rate 21 H 18 Respiratory Effort Blood Pressure 122/35 H 121/49 H Blood Pressure Mean 64 73 Pulse Ox 97 97 Oxygen Delivery Method Bi-pap Oxygen Flow Rate (L/min) Fraction of Inspired Oxygen (FIO2) Positive well nourished and well developed Constitutional Narrative: Patient appears in mild to moderate amount of respiratory distress General Appearance ED: well developed HEENT Reports normocephalic, head/scalp atraumatic and moist mucous membranes Eyes PERRL and EOMs intact bilaterally Neck no lymphadenopathy, supple and no JVD Resp Resp Narrative: Patient is tachypneic. She has decreased air movement bilaterally. There is expiratory wheezes faintly heard. Cardio regular rate, regular rhythm and no murmurs Rate: tachycardic GI normal to inspection, nondistended, normoactive bowel sounds and non-tender Palpation: soft Back/Spine no CVA tenderness and normal ROM Extremity normal to inspection General Extremety ED: Negative for edema General Extremity: Negative for edema Neuro oriented x3 and CN's II-XII intact bilaterally Sensorium / Orientation: alert Motor Exam: strength 5/5 throughout Psych mental status grossly normal Mood & Affect: Negative for depressed or tearful Skin no rashes or lesions noted and no wounds MDM MDM MDM Narrative Medical decision making narrative: Differential diagnosis includes but not limited to acute coronary syndrome pneumonia pneumothorax COPD exacerbation mucous plugging volume overload pulmonary embolism aortic dissection My independent interpretation of the plain films of the chest is normal mediastinum bilateral lower lobe infiltrates white count is 11 hemoglobin 10.2 platelet count is 341 troponin elevated at 520 but trending down glucose to await creatinine 6.19 with a BUN of 48 BMP was not obtained due to the patient's renal failure. Patient received breathing treatments a dose of Solu-Medrol and was placed on BiPAP which has significantly improved her breathing. Her plan is readmission in the hospital. History & Record Review Discussion w/independent historian: EMS personnel and Patient Additional record(s) reviewed:: Prior inpatient record, Prior ED visit and Prior labs Lab Data Attestation: I reviewed the patient's lab results. Labs: Laboratory Results - last 24 hr 05/20/24 22:30 WBC 11.0 RBC 3.51 L Hgb 10.2 L Hct 33.1 L MCV 94.3 MCH 29.1 MCHC 30.8 L RDW Std Deviation 50.7 H RDW Coeff of Dottie 14.9 H Plt Count 341 MPV 9.6 Immature Gran % (Auto) 1.500 H Neut % (Auto) 79.1 H Lymph % (Auto) 9.8 L [place] % (Auto) 9.4 Eos % (Auto) 0.0 Baso % (Auto) 0.2 Absolute Neuts (auto) 8.7 H Absolute Lymphs (auto) 1.07 Nucleated RBC % 0 Sodium 132 L Potassium 4.7 Chloride 99 Carbon Dioxide 22.0 Anion Gap 11 BUN 48 H Creatinine 6.19 H Est GFR (MDRD) Af Amer 9 L Est GFR (MDRD) Non-Af 7 L BUN/Creatinine Ratio 7.8 L Glucose 208 H Calcium 8.2 L Troponin I High Sens 520 H* ABG Data ABG results: ABG 05/20/24 23:03 Specimen Type ART Sample Site L Brach pH 7.37 Bicarbonate Actual 24.5 Total CO2 26 Base Excess -1 O2 Saturation 94 L O2 % 30.0 ABG pCO2 42.2 ABG pO2 71 L Respiration Rate 12 O2 Delivery Device BiPAP Vent Mode Not entered Clinical Comments 02/05 Radiography Diagnostic Testing: Clinical Impression(s) from Imaging Studies Chest X-Ray 05/20/24 22:30 IMPRESSION: bilateral perihilar interstitial infiltrates or pulmonary edema more severe in the lower lobes with improved aeration at the right base Electronically Signed: Jefferson Warner MD at 22:48 EDT , EKG Initial EKG: Attestation: I personally reviewed and interpreted this EKG as follows: Comments: Sinus tachycardia ventricular rate of [address] depression noted V3 through V6 was prominent in V4. Management Discussion w/another healthcare provider: Hospitalist Discharge Plan Dx/Rx/DC Orders Clinical Impression: Acute on chronic hypoxic respiratory failure, AV fistula, ESRD (end stage renal disease) on dialysis, Acute exacerbation of chronic obstructive pulmonary disease (COPD), Elevated troponin Disposition Disposition: Acute Care [facility]
--- NOTE | 2024-05-20 22:30 | RAD_ITS ---
STUDY: X-RAY CHEST REASON FOR EXAM: Female, 68 years old. Dyspnea TECHNIQUE: AP portable COMPARISON: May 18, 2024 FINDINGS: Diffuse bilateral perihilar interstitial infiltrates or pulmonary edema more severe in the lower lobes. There is slightly improved aeration of the right lower lobe since previous study There is no demonstrated pleural abnormality. Normal size heart. Normal mediastinum and gaye. Normal visualized pulmonary arteries. Mildly calcified aortic arch and descending thoracic aorta. Central catheter noted on the right with tip in distal superior vena cava Normal visualized thoracic spine. Normal visualized ribs, and clavicles. There are degenerative changes of the shoulders There are surgical clips projecting over the left upper lobe There is no demonstrated abnormality of the visualized soft tissue structures of the upper abdomen. RAD/Chest 1 View (Portable) IMPRESSION: bilateral perihilar interstitial infiltrates or pulmonary edema more severe in the lower lobes with improved aeration at the right base Electronically Signed: Jefferson Warner MD at 22:48 EDT ,
[2024-05-20 22:39] LABS: Absolute Lymphocyte Count 1.07 X10^3/uL (0.83-4.51); Absolute Neutrophil Count 8.7 X10^3/uL (2.0-7.7); Basophil# 0.02 X10^3/uL; Basophil% 0.2 % (0-1); Hematocrit 33.1 % (37-47); Hemoglobin 10.2 g/dL (12.0-15.0); Lymphocyte # 1.07 X10^3/ul (0.83-4.51); Lymphocyte % 9.8 % (19-41); Mean Corp Hgb Conc 30.8 g/dL (32-36); Mean Corpuscular Hgb 29.1 pg (27.0-32.0); Mean Corpuscular Volume 94.3 fL (81-99); Mean Platelet Vol. 9.6 fl (6.2-12.0); Monocyte# 1.03 X10^3/uL; Monocyte% 9.4 % (0-10); NRBC Flagged by Analyzer 0 % (0-5); Neutrophil # 8.68 X10^3/uL (2.7-7.7); Neutrophil % 79.1 % (47-70); Platelet Count 341 K/mm3 (150-450); RBC Distribution Width CV 14.9 % (11.6-14.6); RBC Distribution Width SD 50.7 fl (35.1-43.9); Red Blood Count 3.51 M/mm3 (4.2-5.4)
[2024-05-20 22:59] VITALS: BP 118/79; PULSE 109; RESP 22; TEMP 36.8; O2SAT 97
[2024-05-20 23:02] LABS: Anion Gap 11 (5-15); BUN 48 mg/dL (7-18); BUN/Creat Ratio 7.8 RATIO (10-20); Calcium,Total 8.2 mg/dL (8.5-10.1); Chloride 99 mmol/L (98-107); Creatinine, Serum 6.19 mg/dL (0.55-1.02); EST Glomerular Filtration Rate 7 mL/min (>60); Est Glom Filt Rate - Afr Amer 9 mL/min (>60); Glucose 208 mg/dL (74-106); Potassium 4.7 mmol/L (3.5-5.1); Sodium Level 132 mmol/L (136-145); Troponin-I HS 520 pg/mL (3.0-54.0)
[2024-05-20 23:08] LABS: Base Excess -1 mmol/L (-2 to +2); Bicarbonate 24.5 mmol/L (22-26); Blood Gas Specimen Type ART; Comment 18/8; Mode Not entered; O2 Delivery Device BiPAP; PO2 71 mmHG (75-100); RR 12; SITE L Brach; SO2 94 % (95-99); Total Carbon Dioxide 26 mmol/L; pCO2 42.2 mmHg (35-45); pH 7.37 (7.35-7.45)
[2024-05-21] VITALS (19 sets, daily range): BP systolic 121–141; BP diastolic 35–113; PULSE 80–105; RESP 12–23; TEMP 36.4–37.5; O2SAT 92–100; BMI 32.1; BMI 33.2
--- NOTE | 2024-05-21 00:11 | HP.PCM.HOS_ITS ---
HPI - General General Date of Admission: 05/21/24 Date of Service: 05/21/24 Chief Complaint: Dyspnea. HPI Narrative The patient is a 68 y/o F w/ PMHx: HTN, HLD, COPD/Asthma w/ Chronic Hypoxic Respiratory Failure, Polysubstance abuse history, Severe protein calorie malnutrition, ESRD on HD, GERD, Hx GI bleed, Hx CVA/TIA, Chronic anemia/AOCD, Rheumatoid arthritis, Diabetes mellitus type II, HFpEF, CAD with known tripple vessel disease treated medically secondary to high risk with surgery, Former tobacco use, recent prolonged admission 05/18/2024 with discharge on 05/20/2024 secondary to acute hypoxic respiratory failure with suspected pneumonia empirically treated with IV antibiotic therapy and suspected likely acute on chronic COPD exacerbation discharged on prednisone burst therapy, Levaquin with dialysis most recently on 05/20/2024 who now represents to the [facility] ED on initially late in the evening 05/20/2024 with progressively worsening dyspnea since discharge earlier in the day with evidence of respiratory distress upon arrival immediately placed from a nonrebreather to BiPAP with initial presentation with tachypnea with rate 36, tachycardia rate 123. Patient denies any chest pain with this presentation. Workup in the ED included T96.1, heart rate 123, BP 140/87, respiratory rate 36, initially 100% on nonrebreather recently discharged on 2 to 4 L nasal cannula with most recent repeat vital signs T98.3, heart rate 109, BP 118/79, respiratory rate 22, 97% on BiPAP with FiO2 30%, CBC with WBC 11, hemoglobin 10.2, MCV 94.3, platelet 341 with left shift, ABG with PaO2 71 otherwise not marked appearing, BMP with sodium 132, BUN/creatinine 48/6.19, glucose 208, calcium 8.2, troponin 520 with patient with noted chronic troponin elevation most recently prior 02/25/2023 troponin 3758, chest x-ray with by lateral perihilar interstitial infiltrates versus pulmonary edema more severe in the lower lobes with improved aeration at the right base from previously, EKG with sinus tachycardia with some ST depression noted in V3 through V6. In the ED patient ministered albuterol, DuoNeb therapy and Solu-Medrol 60 mg IV x 1. [facility] Medical History Alcohol use Wears dentures Shingles outbreak Arthritis Dietary restriction Normal Holter exam History of echocardiogram Cardiology follow-up encounter History of heart attack CHF (congestive heart failure) Severe protein-calorie malnutrition Malnutrition of moderate degree COPD (chronic obstructive pulmonary disease) CAD (coronary artery disease) (HFpEF) heart failure with preserved ejection fraction Substance abuse Dialysis patient GI bleed Hepatitis Hypertension History of hypertension Chronic progressive renal failure TIA (transient ischemic attack) End-stage renal disease on hemodialysis PONV (postoperative nausea and vomiting) Post-menopausal Wears glasses Ambulates with cane High cholesterol Easy bruising Edentulous Gastric reflux On home oxygen therapy Former smoker Shortness of breath on exertion Leg cramps Hyponatremia ESRD (end stage renal disease) on dialysis Acute and chronic respiratory failure with hypoxia Chronic kidney disease, stage V requiring chronic dialysis Cardiac dysrhythmia, unspecified NSTEMI, initial episode of care Anemia Asthma Stroke Diabetes Rheumatoid arthritis Type II diabetes mellitus Hypertension Home Medications ?Medication ?Instructions ?Recorded ?Last Taken ?Type calcium acetate(phosphat bind) 667 2 cap PO TID SUPPLEMENT 03/07/22 05/09/24 History mg capsule cinacalcet 30 mg tablet 30 mg PO DAILY DIALYSIS 09/19/22 05/09/24 History sevelamer carbonate 800 mg tablet 800 mg PO TID DIALYSIS 01/28/23 05/09/24 History ferrous sulfate 325 mg (65 mg 325 mg PO DAILY SUPPLEMENT #90 tabs 08/27/23 05/09/24 Rx iron) tablet (FeroSul) diclofenac sodium 1 % topical gel 2 g topical ONCE PRN ARTHRITIS 10/03/23 11/24/23 History (Voltaren Arthritis Pain) cilostazol 100 mg tablet 50 mg (1/2 x 100 mg) PO BID #60 10/15/23 05/09/24 Rx tabs amlodipine 10 mg tablet 10 mg PO DAILY BLOOD PRESSURE #7 02/13/24 05/10/24 Rx tabs lidocaine 4 % topical patch 1 patch topical DAILY PRN pain #10 02/13/24 Unknown Rx (AsperFlex (lidocaine)) ea aspirin 81 mg tablet,delayed See Rx Instructions .Route 05/20/24 Unknown Rx release .COMPLEX #90 tabs atorvastatin 80 mg tablet 80 mg PO QHS CHOLESTEROL #30 tabs 05/20/24 Unknown Rx carvedilol 12.5 mg tablet 12.5 mg PO BID 05/20/24 Unknown History clopidogrel 75 mg tablet 75 mg PO DAILY BLOOD THINNER #30 05/20/24 Unknown Rx tabs guaifenesin 1,200 mg tablet, 1,200 mg PO BID 7 days #14 tabs 05/20/24 Unknown Rx extended release 12 hr (Mucus Relief ER) hydralazine 25 mg tablet 25 mg PO TID 05/20/24 Unknown History multivitamin with folic acid 400 1 tab PO DAILY 05/20/24 Unknown History mcg tablet (Daily-Caron (with folic acid)) prednisone 20 mg tablet 40 mg (2 x 20 mg) PO DAILY 5 days 05/20/24 Unknown Rx #10 tabs Allergy/AdvReac Type Severity Reaction Status Date / Time ceftriaxone Allergy Severe Rash Verified 05/20/24 21:54 vancomycin Allergy Unknown Rash Verified 05/20/24 21:54 Penicillins Allergy Swelling Verified 05/20/24 21:54 oxycodone HCl (From Percocet) AdvReac Intermediate Itching Verified 05/20/24 21:54 Family History Mother Hypertension Emphysema/COPD Sister Hypertension Surgical History S/P arteriovenous (AV) fistula creation History of arteriovenostomy for renal dialysis History of surgery History of eye surgery knee scope H/O: hysterectomy Social History Smoking Status: Former smoker alcohol intake: current details: 1 per week substance use type: does not use what type of physical activity do you participate in: none ROS ROS Narrative Admission Review of Systems: CONSTITUTIONAL: No weight loss, fever, chills, + weakness or fatigue. HEENT: Eyes: No visual loss, blurred vision, double vision or yellow sclerae. Ears, Nose, Throat: No hearing loss, sneezing, congestion, runny nose or sore throat. SKIN: No rash or itching, lesions, wounds. CARDIOVASCULAR: No chest pain, chest pressure or chest discomfort, palpitations, edema, orthopnea, syncopal events. RESPIRATORY: + shortness of breath, wheezing, recent cough but current denies any marked cough or increased sputum. No hemoptysis. GASTROINTESTINAL: No anorexia, nausea, emesis, abdominal pain, diarrhea, BPRB, melena. GENITOURINARY: No dysuria, frequency, urgency or retention. NEUROLOGICAL: + Hx CVA. No headache, dizziness, syncope, paralysis, ataxia, numbness or tingling in the extremities, focal weakness, change in bowel or bladder control, seizure. MUSCULOSKELETAL: + muscle, back pain, joint pain or stiffness. HEMATOLOGIC: + anemia, easy bleeding.bruising. LYMPHATICS: No enlarged nodes. No history of splenectomy. PSYCHIATRIC: No history of anxiety or depression. ENDOCRINOLOGIC: No cold or heat intolerance. No polyuria or polydipsia. ALLERGIES: + history of asthma. Vital Signs Vital Signs Vital Signs: 05/20/24 21:55 05/20/24 21:59 05/20/24 22:12 Temperature 96.1 F L Temperature Source Axillary Pulse Rate 123 H Respiratory Rate 36 H Respiratory Effort Short of Breath Blood Pressure 140/87 H Blood Pressure Mean 104 Pulse Ox 100 92 Oxygen Delivery Method Non-Rebreather Nasal Cannula Oxygen Flow Rate (L/min) 4 Fraction of Inspired Oxygen (FIO2) 05/20/24 22:15 05/20/24 22:15 05/20/24 22:59 Temperature 98.3 F Temperature Source Temporal Pulse Rate 120 H 120 H 109 H Respiratory Rate 28 H 28 H 22 H Respiratory Effort Blood Pressure 118/79 Blood Pressure Mean 92 Pulse Ox 97 97 Oxygen Delivery Method Bi-pap Oxygen Flow Rate (L/min) Fraction of Inspired Oxygen (FIO2) 35 30 Physical Exam Narrative Physical Examination: General: Awake, alert, oriented x 3, seated upright in the ED bed, BIPAP in place, she notes feeling improved since initial ED arrival, denies any current dyspnea. Skin: Normal color, normal turgor, no icterus, no cyanosis except occasional ecchymoses, abrasion. HEENT: AT/NC, EOMI, PERRLA, dry MM, BiPAP in place, difficult to discern carotid bruit given referred sounds from BiPAP, no marked JVD noted. Lungs: Diminished, > bases, appropriate effort, upper chest HD access in place, BiPAP in place, occasional end expiratory wheeze, no current rales or rhonchi. Heart: Improved, currently regular rate and rhythm; no gallop, rub audible. Abdomen: Soft, NTTP, no obvious distention, distant BS, no appreciated HSM. Extremities: No cyanosis, no clubbing, no marked peripheral edema. Neurological: Patient awake, alert, oriented as noted, cognitive function appears baseline intact; pupils equally reactive to light and accommodation, cranial nerves II-XII grossly normal, moving all 4 extremities, no focal deficits, strength improved, moderately globally decreased secondary to acute presentation. Psychiatric: Affect appears fatigued otherwise normal, no acute evidence of depressive or anxiety feelings. Results Lab / Micro Data 05/20/24 22:30 05/20/24 22:30 Labs: Laboratory Results - last 24 hr 05/20/24 22:30: WBC 11.0, RBC 3.51 L, Hgb 10.2 L, Hct 33.1 L, MCV 94.3, MCH 29.1, MCHC 30.8 L, RDW Std Deviation 50.7 H, RDW Coeff of Dottie 14.9 H, Plt Count 341, MPV 9.6, Immature Gran % (Auto) 1.500 H, Neut % (Auto) 79.1 H, Lymph % (Auto) 9.8 L, [place] % (Auto) 9.4, Eos % (Auto) 0.0, Baso % (Auto) 0.2, Absolute Neuts (auto) 8.7 H, Absolute Lymphs (auto) 1.07, Nucleated RBC % 0, Sodium 132 L , Potassium 4.7, Chloride 99, Carbon Dioxide 22.0, Anion Gap 11, BUN 48 H, C reatinine 6.19 H, Est GFR (MDRD) Af Amer 9 L, Est GFR (MDRD) Non-Af 7 L, B UN/Creatinine Ratio 7.8 L, Glucose 208 H, Calcium 8.2 L, Troponin I High Sens 520 H* ABG Data ABG results: ABG 05/20/24 23:03 Specimen Type ART Sample Site L Brach pH 7.37 Bicarbonate Actual 24.5 Total CO2 26 Base Excess -1 O2 Saturation 94 L O2 % 30.0 ABG pCO2 42.2 ABG pO2 71 L Respiration Rate 12 O2 Delivery Device BiPAP Vent Mode Not entered Clinical Comments 02/05 Imaging Radiology Impression Chest X-Ray 05/20/24 22:30 IMPRESSION: bilateral perihilar interstitial infiltrates or pulmonary edema more severe in the lower lobes with improved aeration at the right base Electronically Signed: Jefferson Warner MD at 22:48 EDT , Assessment & Plan Assessment/Plan (1) Acute respiratory failure with hypoxia: PLAN: Plan The patient is a 68 y/o F w/ PMHx: HTN, HLD, COPD/Asthma w/ Chronic Hypoxic Respiratory Failure, Polysubstance abuse history, Severe protein calorie malnutrition, ESRD on HD, GERD, Hx GI bleed, Hx CVA/TIA, Chronic anemia/AOCD, Rheumatoid arthritis, Diabetes mellitus type II, HFpEF, CAD with known tripple vessel disease treated medically secondary to high risk with surgery, Former tobacco use, recent prolonged admission 05/18/2024 with discharge on 05/20/2024 secondary to acute hypoxic respiratory failure with suspected pneumonia empirically treated with IV antibiotic therapy and suspected likely acute on chronic COPD exacerbation discharged on prednisone burst therapy, Levaquin with dialysis most recently on 05/20/2024 who now represents to the [facility] ED on initially late in the evening 05/20/2024 with progressively worsening dyspnea since discharge earlier in the day with evidence of respiratory distress upon arrival immediately placed from a nonrebreather to BiPAP. #1. Acute on Chronic Hypoxic Respiratory Failure w/ Recent BL PNA diagnosis and COPD/Asthma Exacerbation, worsening, suspect more likely secondary to COPD component complicated by underlying #3: Will admit to PCU, will continue BIPAP with then transition to NC as able, continue ATC duonebs, PRN albuterol, IV methylprednisolone, HOB, IS parameters, recent PNA work-up already completed, had improved, will continue oral levaquin regimen. #2. CAD with chronically elevated troponin w/ presentation EKG with ST depression: ED presentation troponin elevated 520, less than previous and certainly a component of demand, EKG with sinus tachycardia initially with ST depression in V3 further V6, will repeat EKGs upon admission and as needed, will maintain on telemetry, continue to cycle cardiac enzymes, magnesium level will be obtained. Patient with known triple-vessel disease unfortunately not surgical candidate, continue aspirin, Plavix, cilostazol, statin therapy, Coreg home regimen, not on HARRISON inhibitor/ARB. #3. ESRD: Patient on HD, TTS schedule, will consult nephrology Dr. Gaytan, last dialysis regimen 05/20/2024. #4. AOCD/Fe deficiency anemia: Admission hemoglobin 10.2, MCV 94.3, baseline noted prior more recently 05-26, will continue to trend, continue iron supplementation. #5. History of Diabetes mellitus type II: Noted history, most recent hemoglobin A1c noted 07/28/2022 4.7%, patient is not on any chronic diabetic regimen at this point, encouraged continued lifestyle and diet changes and per patient preference at this time will defer Accu-Cheks/insulin sliding scale and allow renal diet. #6. HFpEF: Judiciously hydrate if necessary with continued HD regimen as noted, continue aspirin, Plavix, statin, Coreg, hydralazine, not on HARRISON inhibitor/ARB nor diuretic therapy, HD regimen TTS of note. #7. History CVA/TIA: Will continue aspirin, Plavix, hypertensive regimen as noted, diabetic history but most recent A1c 4.7% as noted. #8. GERD with history of previous GI bleed: Not on regimen, will have as needed Mylanta. #9. Hypertension: Continue home regimen including amlodipine, Coreg, hydralazine with hold parameters as needed, PRN hydralazine. #10. Rheumatoid arthritis: We will continue patient topical diclofenac regimen, encourage positional changes, offloading. #11. Former tobacco usage: Encourage continued tobacco cessation. #12. Hyperlipidemia: Continue home statin regimen. #13. DVT prophylaxis: Heparin. #14. CODE status: Full Code status. Charges/Coding Visit Charges Inpatient E&M: 10730 Init Hosp L3
[2024-05-21 00:43] LABS: Magnesium 2.1 mg/dL (1.6-2.6)
--- NOTE | 2024-05-21 01:17 | CPS ---
pt moved to [facility]
[2024-05-21 01:53] LABS: Troponin-I HS 1043 pg/mL (3.0-54.0)
--- NOTE | 2024-05-21 02:02 | ECHOD_ITS ---
Reason For Study: Elevated Troponins Procedure This was a 2D Doppler, Color Flow transthoracic echocardiogram. Exam performed portable in patient room. Left Ventricle Normal LV size. The left ventricular ejection fraction is 55 %. No regional wall motion abnormalities noted. Right Ventricle Normal RV size. Normal systolic function. Atria Normal left atrium. Normal right atrium. Mitral Valve Bileaflet diffuse mitral valve thickening. Mild focal mitral valve calcification. Mild-Moderate (1- 2+) eccentric mitral valve insufficiency. Aortic Valve Trisinus/trileaflet aortic valve. Pulmonic Valve Normal pulmonic valve. Great Vessels Normal aortic root. The pulmonary artery is normal size. Normal inferior vena cava. Pericardium/Pleural No pericardial effusion. MMode/2D Measurements & Calculations LVIDd: 5.5 cm IVSd: 1.3 cm LVOT diam: 2.0 cm LVIDs: 4.4 cm LVPWd: 1.2 cm LVOT area: 3.0 cm2 RVDd: 4.1 cm FS: 20.5 % LA dimension: 4.5 cm LAV(MOD-bp): 54.1 ml LVAd ap4: 36.4 cm2 LAV(MOD-bp) Indexed: 30.3 ml/m2 LVLd ap4: 8.5 cm LAV(MOD-sp2): 58.7 ml EDV(MOD-sp4): 132.0 ml LAV(MOD-sp4): 49.5 ml EDV(sp4-el): 132.4 ml LVAs ap4: 25.0 cm2 LVLs ap4: 8.0 cm ESV(MOD-sp4): 64.2 ml ESV(sp4-el): 65.9 ml EF(MOD-sp4): 51.3 % EF(sp4-el): 50.2 % SV(MOD-sp4): 67.8 ml SV(sp4-el): 66.5 ml LA A4 area: 18.0 cm2 TAPSE: 2.7 cm Time Measurements MV dec time: 0.26 sec Doppler Measurements & Calculations MV E max migel: 115.5 cm/sec Lat Peak E' Migel: 10.2 cm/sec Med Peak E' Migel: 8.1 cm/sec MV A max migel: 80.3 cm/sec E/E' lat: 11.4 E/E' med: 14.3 MV E/A: 1.4 MV V2 max: 156.7 cm/sec MV dec slope: 443.7 cm/sec2 Ao V2 max: 121.0 cm/sec MV max P.8 mmHg Ao max P.9 mmHg MV V2 mean: 79.6 cm/sec Ao V2 mean: 87.3 cm/sec MV mean P.2 mmHg Ao mean P.3 mmHg MV V2 VTI: 29.4 cm Ao V2 VTI: 24.2 cm MVA(VTI): 2.0 cm2 AV (velocity ratio): 0.82 JENNIFER(I,D): 2.5 cm2 JENNIFER(V,D): 2.6 cm2 LV V1 max: 105.3 cm/sec MR max migel: 530.2 cm/sec SV(LVOT): 59.5 ml LV V1 max P.4 mmHg MR max P.4 mmHg LV V1 mean P.9 mmHg MR mean migel: 358.3 cm/sec LV V1 mean: 64.6 cm/sec MR mean P.3 mmHg LV V1 VTI: 19.9 cm MR VTI: 160.1 cm PA V2 max: 90.1 cm/sec PA max PG (full): 1.3 mmHg ECHO/Echo Complete Interpretation Summary The left ventricular ejection fraction is 55 %. Mild focal mitral valve calcification. Mild-Moderate (1-2+) eccentric mitral valve insufficiency. Ordering Physician: Concepcion Lamb Performed By: Fritz Murphy and Student
[2024-05-21] MEDS: Heparin Injection (Vial) 5,000 UNIT/ML VIAL 4000 UNIT IV (02:39)
[2024-05-21] MEDS: HEPARIN/D5w 25,000 UNITS 25,000 UNITS/250 ML IV.SOLN. 9 UNITS CONT INF (02:44)
[2024-05-21 03:19] LABS: International Normalized Ratio 1.1; Prothrombin Time (Protime)PT. 13.9 SECONDS (11.7-14.9)
[2024-05-21 03:20] LABS: Partial Thromboplast Time 25.4 Seconds (24.1-36.2)
[2024-05-21 05:05] LABS: Absolute Lymphocyte Count 0.22 X10^3/uL (0.83-4.51); Absolute Neutrophil Count 4.3 X10^3/uL (2.0-7.7); Basophil# 0.01 X10^3/uL; Basophil% 0.2 % (0-1); Hematocrit 28.4 % (37-47); Hemoglobin 8.9 g/dL (12.0-15.0); Lymphocyte # 0.22 X10^3/ul (0.83-4.51); Lymphocyte % 4.4 % (19-41); Mean Corp Hgb Conc 31.3 g/dL (32-36); Mean Corpuscular Hgb 29.2 pg (27.0-32.0); Mean Corpuscular Volume 93.1 fL (81-99); Mean Platelet Vol. 9.8 fl (6.2-12.0); Monocyte# 0.32 X10^3/uL; Monocyte% 6.5 % (0-10); NRBC Flagged by Analyzer 0 % (0-5); Neutrophil # 4.32 X10^3/uL (2.7-7.7); Neutrophil % 87.3 % (47-70); POSITIVE DIFFERENTIAL YES; Platelet Count 245 K/mm3 (150-450); RBC Distribution Width CV 14.6 % (11.6-14.6); RBC Distribution Width SD 49.8 fl (35.1-43.9); Red Blood Count 3.05 M/mm3 (4.2-5.4)
[2024-05-21] MEDS: levoFLOXacin 500 MG Tablet PO (05:22)
[2024-05-21] MEDS: SEVELAMER CARBONATE 800 MG TABLET PO ×2 (05:22→21:38)
[2024-05-21] MEDS: hydrALAZINE 25 MG Tablet PO ×2 (05:22→21:47)
[2024-05-21 05:30] LABS: ALB/GLOB Ratio 0.6 RATIO (0.9-2.4); AST(SGOT) 95 U/L (15-37); Alanine Aminotransfer ALT/SGPT 59 U/L (13-56); Albumin, Serum 2.8 g/dL (3.2-5.0); Alkaline Phosphatase 156 U/L (45-117); Anion Gap 8 (5-15); BUN 56 mg/dL (7-18); BUN/Creat Ratio 8.6 RATIO (10-20); Calcium,Total 8.1 mg/dL (8.5-10.1); Chloride 98 mmol/L (98-107); Creatinine, Serum 6.51 mg/dL (0.55-1.02); EST Glomerular Filtration Rate 7 mL/min (>60); Est Glom Filt Rate - Afr Amer 8 mL/min (>60); Estimated Creatinine Clearance 8.13 ml/min; Globulin 4.6 g/dL (2.2-4.2); Glucose 210 mg/dL (74-106); Protein, Total 7.4 g/dL (6.4-8.2); Sodium Level 133 mmol/L (136-145); Troponin-I HS 6637 pg/mL (3.0-54.0)
[2024-05-21] MEDS: Ipratropium/Albuterol Sulfate 3 ML AMPUL.NEB INHALATION ×4 (06:30→20:21)
--- NOTE | 2024-05-21 08:00 | EKG12_ITS ---
Test Reason : Blood Pressure : / mmHG Vent. Rate : 087 BPM Atrial Rate : 087 BPM P-R Int : 184 ms QRS Dur : 088 ms QT Int : 374 ms P-R-T Axes : 048 073 -75 degrees QTc Int : 450 ms Sinus rhythm with Premature atrial complexes Septal infarct , age undetermined ST & T wave abnormality, consider inferior ischemia Abnormal ECG When compared with ECG of 20-MAY-2024 22:21, MANUAL COMPARISON REQUIRED, DATA IS UNCONFIRMED Confirmed by ANTONIETA PIZARRO, MEÑO ([id number]), avid editor ADRIÁN BURRIS ([id number]) on 05/24/2024 8:26:24 AM Referred By: Confirmed By:MEÑO FUNG MD
[2024-05-21 08:47] LABS: Partial Thromboplast Time 63.6 Seconds (24.1-36.2)
[2024-05-21 09:09] LABS: Troponin-I HS 9271 pg/mL (3.0-54.0)
[2024-05-21] MEDS: Cilostazol 50 MG Tablet PO ×2 (10:12→21:38)
[2024-05-21] MEDS: Carvedilol 12.5 MG Tablet PO (10:13)
[2024-05-21] MEDS: Clopidogrel Bisulfate 75 MG Tablet PO (10:13)
[2024-05-21] MEDS: Ferrous Sulfate 325 MG Tablet PO (10:13)
[2024-05-21] MEDS: Cinacalcet HCl 30 MG Tablet PO (10:13)
[2024-05-21] MEDS: Calcium Acetate 667 MG Capsule 1334 MG PO ×2 (10:13→16:52)
[2024-05-21] MEDS: Aspirin E.C. 81 MG Tablet PO (10:13)
[2024-05-21] MEDS: amLODIPine 10 MG Tablet PO (10:13)
[2024-05-21] MEDS: guaiFENesin 1,200 MG Tablet 1200 MG PO ×2 (10:13→21:36)
[2024-05-21] MEDS: Multivitamins,Therapeutic Tablet 1 TABLET PO (10:13)
[2024-05-21 11:47] LABS: Bedside Glucose 152 mg/dL (74-106)
[2024-05-21] MEDS: 0.9% Saline Lock 10 ML Syringe IV (13:17)
[2024-05-21 15:38] LABS: Partial Thromboplast Time 75.4 Seconds (24.1-36.2)
--- NOTE | 2024-05-21 16:06 | CASEMGMT ---
NIKKI LINARES Chart Review: Patient was admitted 05/18-05/20/24 for acute respiratory failure, COPD exac, pneumonia. See NIKKI LINARES assessment from 05/18/24. Patient was discharged to home maintaining on home oxygen of 3lpm and [facility]. Patient returned same day of discharge to [facility] ED for SOB and chest pressure. Patient had rising troponins that increased to 9271. Cardiology consulted. NIKKI LINARES in to discuss readmission and needs at discharge. Patient states she was wearing oxygen as prescribed, taking medications, and follow dietary restrictions. Patient returned prior to appts and [facility] visit. Patient wishes to return home with [facility]. NIKKI LINARES discussed palliative care with patient and agreeable. Patient denied further needs or concerns at this time. NIKKI LINARES called [facility] and they will accept patient again and monitor when patient is discharged for start of care. Hospitalist updated regarding interest in palliative care, order received for referral. NIKKI LINARES sent referral to [facility] Palliative. Green sheet placed on chart for HHC resumption and possible increase in home oxygen. CM will continue to follow this patient and plan for a safe discharge.
--- NOTE | 2024-05-21 16:14 | PN.HOSP_ITS ---
Reason for Visit Reason for Visit: Diagnoses Acute respiratory failure with hypoxia (05/21/24) Objective Data Objective Data Vital Signs: Vital Signs Temp Pulse Resp BP Pulse Ox O2 Del Method O2 Flow Rate 98.4 F 92 18 127/113 H 100 Bi-pap 3 05/21/24 05:17 05/21/24 08:15 05/21/24 08:15 05/21/24 05:17 05/21/24 08:15 05/21/24 08:19 05/21/24 06:31 FiO2 30 05/21/24 08:19 Oxygen Flow Rate (L/min) 3 Oxygen Delivery Method Bi-pap Weight: 175 lb 11.335 oz Body Mass Index (BMI) 33.2 Intake & Output: Intake and Output for Last 24 Hours 05/19/24 05/20/24 05/21/24 23:59 23:59 23:59 Output Total 0 / 0 Balance 0 / 0 Lab / Micro Data 05/21/24 04:36 05/21/24 04:36 Labs: Laboratory Results - last 24 hr 05/20/24 22:30: WBC 11.0, RBC 3.51 L, Hgb 10.2 L, Hct 33.1 L, MCV 94.3, MCH 29.1, MCHC 30.8 L, RDW Std Deviation 50.7 H, RDW Coeff of Dottie 14.9 H, Plt Count 341, MPV 9.6, Immature Gran % (Auto) 1.500 H, Neut % (Auto) 79.1 H, Lymph % (Auto) 9.8 L, [place] % (Auto) 9.4, Eos % (Auto) 0.0, Baso % (Auto) 0.2, Absolute Neuts (auto) 8.7 H, Absolute Lymphs (auto) 1.07, Nucleated RBC % 0, Sodium 132 L , Potassium 4.7, Chloride 99, Carbon Dioxide 22.0, Anion Gap 11, BUN 48 H, C reatinine 6.19 H, Est GFR (MDRD) Af Amer 9 L, Est GFR (MDRD) Non-Af 7 L, B UN/Creatinine Ratio 7.8 L, Glucose 208 H, Calcium 8.2 L, Troponin I High Sens 520 H* 05/21/24 00:28: Magnesium 2.1 05/21/24 00:30: Troponin I High Sens 1043 H* 05/21/24 02:45: PT 13.9, INR 1.1, APTT 25.4 05/21/24 04:36: WBC 5.0, RBC 3.05 L, Hgb 8.9 L, Hct 28.4 L, MCV 93.1, MCH 29.2, MCHC 31.3 L, RDW Std Deviation 49.8 H, RDW Coeff of Dottie 14.6, Plt Count 245, MPV 9.8, Immature Gran % (Auto) 1.600 H, Neut % (Auto) 87.3 H, Lymph % (Auto) 4.4 L, [place] % (Auto) 6.5, Eos % (Auto) 0.0, Baso % (Auto) 0.2, Absolute Neuts (auto) 4.3, Absolute Lymphs (auto) 0.22 L, Nucleated RBC % 0, Sodium 133 L, Potassium 5.0, Chloride 98, Carbon Dioxide 27.0, Anion Gap 8, BUN 56 H, Creatinine 6.51 H, Estim Creat Clear Calc 8.13, Est GFR (MDRD) Af Amer 8 L, Est GFR (MDRD) Non-Af 7 L, BUN/Creatinine Ratio 8.6 L, Glucose 210 H, Calcium 8.1 L, Total Bilirubin 0.80, AST 95 H, ALT 59 H, Alkaline Phosphatase 156 H, Troponin I High Sens 6637 H*, Total Protein 7.4, Albumin 2.8 L, Globulin 4.6 H, Albumin/Globulin Ratio 0.6 L ABG Data ABG results: ABG 05/20/24 23:03 Specimen Type ART Sample Site L Brach pH 7.37 Bicarbonate Actual 24.5 Total CO2 26 Base Excess -1 O2 Saturation 94 L O2 % 30.0 ABG pCO2 42.2 ABG pO2 71 L Respiration Rate 12 O2 Delivery Device BiPAP Vent Mode Not entered Clinical Comments 02/05 Radiography Diagnostic Testing: Radiology Impression Chest X-Ray 05/20/24 22:30 IMPRESSION: bilateral perihilar interstitial infiltrates or pulmonary edema more severe in the lower lobes with improved aeration at the right base Electronically Signed: Jefferson Warner MD at 22:48 EDT , Physical Exam Narrative Seen and examined. Patient is short of breath on BiPAP. Denies chest pain pressure. Unclear about chest tightness. She had wheezing. Physical exam General: Alert, Oriented x3, Cooperative, short of breath. HEENT: Atraumatic, PERRLA, EOMI, Normocephalic Oral: Oral mucosa dry. No Gingival or Mucosal Lesions/ Ulcerations Neck: Supple, No JVD, Negative Carotid Bruits Chest wall/Lungs: Right upper chest dialysis catheter. Air entry diminished in bilateral lung bases. Bilateral lung bases wheezing and rhonchi. On BiPAP Cardiovascular: Regular rate, Regular Rhythm, Normal S1, Normal S2, systolic murmur over cardiac apex Abdomen: Bowel Sounds Present, Soft, Non Tender, Non-Distended : No dysuria. No renal angle tenderness. No suprapubic tenderness. Extremities: No edema, Capillary Refill Less than 3 Seconds Skin: No rashes, No breakdown Musculoskeletal: No Tenderness to Palpation of Joints or Extremities Neurological: Cranial nerves II-XII grossly intact, DTR 2+/4. No acute focal neurological deficit. Psych/Mental Status: Flat affect Assessment & Plan Assessment/Plan (1) Acute respiratory failure with hypoxia: PLAN: Plan 68-year-old female came to ED with dyspnea and respiratory distress after discharge. On home oxygen testing she required 2 L at rest and on ambulation and was comfortable on that for last 2 days. But this time she was very short of breath and wheezing, pulse ox 97% on 6 L of oxygen put on 510 L of nonrebreather. She was tachypneic with respiratory rate 36, tachycardia heart rate 123/min. 1. Acute on chronic hypoxic respiratory failure due to recent bilateral pneumonia, COPD exacerbation: Patient was admitted in PCU on BiPAP. Patient is being managed on scheduled bronchodilator, IV Solu-Medrol, Mucinex, incentive spirometry and Pep. Levaquin continued. Lactic acid normal. ABG showed 7.3 / on BiPAP 18/8 on 30% FiO2. Patient was discharged on Levaquin. Chest x-ray finding was similar bilateral lower lobe peripatellar heterogeneous opacity similar to previous admission. It is reported bilateral perihilar interstitial infiltrates/pulmonary edema more severe in the right lung base. 05/21: 2. Elevated troponin with chronic HFpEF: Twelve-lead EKG shows sinus tachycardia at 107 beats minute, ST depression V3-V6 prominent in V4. QTc 453 ms. Repeat EKG shows sinus rhythm with PAC [address] depression. Previous EKG on June 08 shows normal sinus rhythm with similar slight ST depression V4-V6. Troponin noted was 520, 1043, 6637. She has chronically elevated troponin 266-305 recent echo shows 8 in February 2023. EF 55% with no evidence of diastolic dysfunction. Moderate 2+ MR. 05/21: Discussed with the restaurant bartender. Concern for possible non-STEMI. 3. End-stage renal disease on TTS: Director Of Primary Care Dr. Gaytan consulted whom she follows as an outpatient. 4. Mild normochromic normocytic anemia: H&H 10.9/35.5%. Platelet count 283,000. ESR elevated. 05/21: H&H 8.9/28.4%. 05/19: H&H 9.0/30%. 4. DVT prophylaxis?SCDs. Patient on baby aspirin, Plavix and cilostazol for history of peripheral arterial disease stroke and right-sided carotid stenosis. Patient currently on IV heparin drip. Hold cilostazol 5. Diabetes mellitus type 2: 4.7% in July 2022 last A1c 6.0 in November 2020. She had 12.5% in September 2018. Accu-Chek before meals and at bedtime with Humalog sliding scale coverage and hypoglycemia protocol. 6. Multiple other comorbidities include TIA/stroke, peripheral artery disease, hypertension, rheumatoid arthritis and dyslipidemia: IV DVT prophylaxis: Heparin. CODE status: Full Code status.
--- NOTE | 2024-05-21 16:21 | PCM.PN.REN ---
Subjective Subjective readmitted with dyspnea Objective Data Objective Data Vital Signs: Vital Signs Temp Pulse Resp BP Pulse Ox O2 Del Method O2 Flow Rate 97.8 F 85 18 127/46 H 98 Bi-pap 3 05/21/24 10:11 05/21/24 14:24 05/21/24 14:24 05/21/24 10:11 05/21/24 10:11 05/21/24 15:04 05/21/24 10:11 FiO2 30 05/21/24 15:04 Oxygen Flow Rate (L/min) 3 Oxygen Delivery Method Bi-pap Weight: 79.7 kg Body Mass Index (BMI) 33.2 Intake & Output: Intake and Output for Last 24 Hours 05/19/24 05/20/24 05/21/24 23:59 23:59 23:59 Intake Total 240 / 240 Output Total 0 / 0 Balance 240 / 240 Lab / Micro Data 05/21/24 04:36 05/21/24 04:36 Labs: Laboratory Results - last 24 hr 05/20/24 22:30: WBC 11.0, RBC 3.51 L, Hgb 10.2 L, Hct 33.1 L, MCV 94.3, MCH 29.1, MCHC 30.8 L, RDW Std Deviation 50.7 H, RDW Coeff of Dottie 14.9 H, Plt Count 341, MPV 9.6, Immature Gran % (Auto) 1.500 H, Neut % (Auto) 79.1 H, Lymph % (Auto) 9.8 L, [place] % (Auto) 9.4, Eos % (Auto) 0.0, Baso % (Auto) 0.2, Absolute Neuts (auto) 8.7 H, Absolute Lymphs (auto) 1.07, Nucleated RBC % 0, Sodium 132 L, Potassium 4.7, Chloride 99, Carbon Dioxide 22.0, Anion Gap 11, BUN 48 H, Creatinine 6.19 H, Est GFR (MDRD) Af Amer 9 L, Est GFR (MDRD) Non-Af 7 L, BUN/Creatinine Ratio 7.8 L, Glucose 208 H, Calcium 8.2 L, Troponin I High Sens 520 H* 05/21/24 00:28: Magnesium 2.1 05/21/24 00:30: Troponin I High Sens 1043 H* 05/21/24 02:45: PT 13.9, INR 1.1, APTT 25.4 05/21/24 04:36: WBC 5.0, RBC 3.05 L, Hgb 8.9 L, Hct 28.4 L, MCV 93.1, MCH 29.2, MCHC 31.3 L, RDW Std Deviation 49.8 H, RDW Coeff of Dottie 14.6, Plt Count 245, MPV 9.8, Immature Gran % (Auto) 1.600 H, Neut % (Auto) 87.3 H, Lymph % (Auto) 4.4 L, [place] % (Auto) 6.5, Eos % (Auto) 0.0, Baso % (Auto) 0.2, Absolute Neuts (auto) 4.3, Absolute Lymphs (auto) 0.22 L, Nucleated RBC % 0, Sodium 133 L, Potassium 5.0, Chloride 98, Carbon Dioxide 27.0, Anion Gap 8, BUN 56 H, Creatinine 6.51 H, Estim Creat Clear Calc 8.13, Est GFR (MDRD) Af Amer 8 L, Est GFR (MDRD) Non-Af 7 L, BUN/Creatinine Ratio 8.6 L, Glucose 210 H, Calcium 8.1 L, Total Bilirubin 0.80, AST 95 H, ALT 59 H, Alkaline Phosphatase 156 H, Troponin I High Sens 6637 H*, Total Protein 7.4, Albumin 2.8 L, Globulin 4.6 H, Albumin/Globulin Ratio 0.6 L 05/21/24 08:25: APTT 63.6 H, Troponin I High Sens 9271 H* 05/21/24 11:30: POC Glucose 152 H 05/21/24 15:05: APTT 75.4 H ABG Data ABG results: ABG 05/20/24 23:03 Specimen Type ART Sample Site L Brach pH 7.37 Bicarbonate Actual 24.5 Total CO2 26 Base Excess -1 O2 Saturation 94 L O2 % 30.0 ABG pCO2 42.2 ABG pO2 71 L Respiration Rate 12 O2 Delivery Device BiPAP Vent Mode Not entered Clinical Comments 02/05 Radiography Diagnostic Testing: Radiology Impression Chest X-Ray 05/20/24 22:30 IMPRESSION: bilateral perihilar interstitial infiltrates or pulmonary edema more severe in the lower lobes with improved aeration at the right base Electronically Signed: Jefferson Warner MD at 22:48 EDT , Echocardiogram 05/21/24 02:02 Interpretation Summary The left ventricular ejection fraction is 55 %. Mild focal mitral valve calcification. Mild-Moderate (1-2+) eccentric mitral valve insufficiency. Ordering Physician: Concepcion Lamb Performed By: Fritz Murphy and Student Physical Exam Narrative Alert awake oriented x 3 no obvious distress no pallor no icterus no JVD s1s2 no murmurs lungs clear abdomen soft no organomegaly no edema no cyanosis Assessment & Plan Assessment/Plan (1) ESRD (end stage renal disease) on dialysis: PLAN: ESRD on HD. last HD yesterday. did not tolerate fluid removal at all. CXR is wet. Echo pending. HD tomorrow. will use midodrine before HD tomorrow. staff
[2024-05-21 17:22] LABS: Bedside Glucose 138 mg/dL (74-106)
--- NOTE | 2024-05-21 17:33 | PCM.CONS.C ---
Assessment & Plan Assessment/Plan (1) NSTEMI (non-ST elevated myocardial infarction): PLAN: Patient presents with a non-ST elevation myocardial infarction. Her previous cardiac catheterization films were reviewed and at this time it is felt that she should be managed with aggressive medical therapy. She does not appear to be a candidate for coronary intervention or surgery. My suspicion is that this is demand ischemia from her fluid overloaded state. The plan is to have her dialyzed tomorrow and we would maximize medical therapy and see how she does. We should continue with high intensity statin and beta-blockers (2) Hypertension: QUALIFIERS: Hypertension type: primary hypertension Qualified Code(s): I10 - Essential (primary) hypertension PLAN: Blood pressure appears to be under good control at this time and no major changes will be made. HPI Consult Data Date of Consult: 05/21/24 HPI Narrative HPI Narrative: NATALI KINSEY, is a 68 F who presents to the emergency room and is hospitalized due to shortness of breath. The patient was recently discharged from the hospital with the same. She has a history of known coronary artery disease status post cardiac catheterization in 2022 who was transferred to a tertiary care center to evaluate for high risk PCI or coronary bypass surgery and it was decided to manage the patient medically. Cardiac catheterization had demonstrated the following:Left main is calcified with extension of calcification through the LAD left circumflex and ramus intermedius Angiographically the distal left main had around 40 to 50% stenosis and is calcified Trifurcated into LAD, ramus intermedius and left circumflex Left anterior descending is a large vessel, reaches all the way to the apex Angiographically proximal mid and distal LAD is calcified With the mid LAD had an eccentric calcified lesion of around 70% Ostial large D1 had a 60% stenosis it is a large artery which branching vessel The distal LAD had no significant atherosclerosis. Ramus intermedius is moderate to large size vessel ostial ramus intermedius at around 5060% stenosis Left circumflex is small to moderate in size with subtotal ostial and proximal left circumflex artery 99% And collaterals noted from the distal part of the LAD into the distal part of the left circumflex artery RCA is dominant with diffuse mid RCA atherosclerosis of around 70% Ejection fraction was noted to be preserved. On presentation to the emergency room patient was noted to be tachycardic with ST depressions suggestive of lateral ischemia. Cardiac enzymes were noted to be abnormal and cardiology was called for further recommendations. At this time patient appears to be stable other than shortness of breath. The patient has multiple other comorbidities including end-stage renal disease on hemodialysis, history of previous GI bleed, hypertension hyperlipidemia and obstructive lung disease. [facility] Medical History Alcohol use Wears dentures Shingles outbreak Arthritis Dietary restriction Normal Holter exam History of echocardiogram Cardiology follow-up encounter History of heart attack CHF (congestive heart failure) Severe protein-calorie malnutrition Malnutrition of moderate degree COPD (chronic obstructive pulmonary disease) CAD (coronary artery disease) (HFpEF) heart failure with preserved ejection fraction Substance abuse Dialysis patient GI bleed Hepatitis Hypertension History of hypertension Chronic progressive renal failure TIA (transient ischemic attack) End-stage renal disease on hemodialysis PONV (postoperative nausea and vomiting) Post-menopausal Wears glasses Ambulates with cane High cholesterol Easy bruising Edentulous Gastric reflux On home oxygen therapy Former smoker Shortness of breath on exertion Leg cramps Hyponatremia ESRD (end stage renal disease) on dialysis Acute and chronic respiratory failure with hypoxia Chronic kidney disease, stage V requiring chronic dialysis Cardiac dysrhythmia, unspecified NSTEMI, initial episode of care Anemia Asthma Stroke Diabetes Rheumatoid arthritis Type II diabetes mellitus Hypertension Home Medications ?Medication ?Instructions ?Recorded ?Last Taken ?Type calcium acetate(phosphat bind) 667 2 cap PO TID SUPPLEMENT 03/07/22 05/09/24 History mg capsule cinacalcet 30 mg tablet 30 mg PO DAILY DIALYSIS 09/19/22 05/09/24 History sevelamer carbonate 800 mg tablet 800 mg PO TID DIALYSIS 01/28/23 05/09/24 History ferrous sulfate 325 mg (65 mg 325 mg PO DAILY SUPPLEMENT #90 tabs 08/27/23 05/09/24 Rx iron) tablet (FeroSul) diclofenac sodium 1 % topical gel 2 g topical ONCE PRN ARTHRITIS 10/03/23 11/24/23 History (Voltaren Arthritis Pain) cilostazol 100 mg tablet 50 mg (1/2 x 100 mg) PO BID #60 10/15/23 05/09/24 Rx tabs amlodipine 10 mg tablet 10 mg PO DAILY BLOOD PRESSURE #7 02/13/24 05/10/24 Rx tabs lidocaine 4 % topical patch 1 patch topical DAILY PRN pain #10 02/13/24 Unknown Rx (AsperFlex (lidocaine)) ea aspirin 81 mg tablet,delayed See Rx Instructions .Route 05/20/24 Unknown Rx release .COMPLEX #90 tabs atorvastatin 80 mg tablet 80 mg PO QHS CHOLESTEROL #30 tabs 05/20/24 Unknown Rx carvedilol 12.5 mg tablet 12.5 mg PO BID 05/20/24 Unknown History clopidogrel 75 mg tablet 75 mg PO DAILY BLOOD THINNER #30 05/20/24 Unknown Rx tabs guaifenesin 1,200 mg tablet, 1,200 mg PO BID 7 days #14 tabs 05/20/24 Unknown Rx extended release 12 hr (Mucus Relief ER) hydralazine 25 mg tablet 25 mg PO TID 05/20/24 Unknown History multivitamin with folic acid 400 1 tab PO DAILY 05/20/24 Unknown History mcg tablet (Daily-Caron (with folic acid)) prednisone 20 mg tablet 40 mg (2 x 20 mg) PO DAILY 5 days 05/20/24 Unknown Rx #10 tabs Allergy/AdvReac Type Severity Reaction Status Date / Time ceftriaxone Allergy Severe Rash Verified 05/20/24 21:54 vancomycin Allergy Unknown Rash Verified 05/20/24 21:54 Penicillins Allergy Swelling Verified 05/20/24 21:54 oxycodone HCl (From Percocet) AdvReac Intermediate Itching Verified 05/20/24 21:54 Family History Mother Hypertension Emphysema/COPD Sister Hypertension Surgical History S/P arteriovenous (AV) fistula creation History of arteriovenostomy for renal dialysis History of surgery History of eye surgery knee scope H/O: hysterectomy Social History Smoking Status: Former smoker alcohol intake: current details: 1 per week substance use type: does not use what type of physical activity do you participate in: none ROS Constitutional Constitutional: Denies fever(s) or weight loss Eyes Eyes: Reports systems reviewed and no addt'l complaints, except as documented ENT HEENT: Reports systems reviewed and no addt'l complaints, except as documented Cardiovascular Cardiovascular: Denies chest pain at rest, chest pain with activity, dyspnea at rest, dyspnea on exertion, edema, palpitations or paroxysmal nocturnal dyspnea Respiratory/Chest Respiratory/Chest: Reports dyspnea on exertion, productive cough, shortness of breath at rest and shortness of breath with exertion Gastrointestinal Gastrointestinal: Denies change in bowel habits, nausea, vomiting or weight changes Genitourinary Genitourinary: Denies difficulty urinating Musculoskeletal Musculoskeletal: Denies joint stiffness or muscle weakness Integumentary Integumentary: Denies lesions Neurologic Neurologic: Denies dizziness or syncope Psychiatric Psychiatric: Denies anxiety Endocrine Endocrinology: Denies excessive sweating or fatigue Hematologic/Lymphatic Hematologic/Lymphatic: Denies anemia Allergic/Immunologic Allergic/Immunologic: Denies seasonal rhinorrhea Physical Exam Const alert, oriented x3 and no apparent distress General Appearance: cooperative HEENT hearing grossly normal bilaterally Head and Scalp: atraumatic Eyes EOMs intact bilaterally Neck General: normal visual inspection Chest inspection of chest normal and palpation of chest normal Resp normal respiratory effort Auscultation: clear to auscultation bilaterally Cardio regular rate, regular rhythm, S1 normal heart sound and S2 normal heart sound Jugular Venous Distention: JVD GI normal to inspection, nondistended, normoactive bowel sounds Extremity normal capillary refill and no pedal edema Peripheral Pulses: Yes pulses 2+ throughout and femoral pulses present Skin no rashes or lesions noted Neuro oriented x3 and CN's II-XII intact bilaterally Psych Appearance: grossly normal and appropriate Risk Stratification Risk Stratification Applicable: Yes Age >/= 65: Yes >/= 3 CAD Risk Factors (HTN, HLD, DM, family hx of CAD, or current smoker): Yes Aspirin Use in the Past 7 Days: Yes Severe Angina (>/= episodes in 24 hours): No EKG ST Changes >/= 0.5mm: No Positive Cardiac Marker: Yes SHA Risk Stratification Score: 4 SHA % Risk: 20% Risk Objective Data Vital Signs: Vital Signs Temp Pulse Resp BP Pulse Ox O2 Del Method O2 Flow Rate 97.8 F 92 18 127/46 H 98 Nasal Cannula 3 05/21/24 16:59 05/21/24 16:59 05/21/24 16:59 05/21/24 16:59 05/21/24 16:59 05/21/24 16:59 05/21/24 16:59 FiO2 30 05/21/24 15:04 Oxygen Flow Rate (L/min) 3 Oxygen Delivery Method Nasal Cannula Weight: 175 lb 11.335 oz Body Mass Index (BMI) 33.2 Intake & Output: Intake and Output for Last 24 Hours 05/19/24 05/20/24 05/21/24 23:59 23:59 23:59 Intake Total 726.3 / 726.3 Output Total 0 / 0 Balance 726.3 / 726.3 Lab / Micro Data 05/21/24 04:36 05/21/24 04:36 Labs: Laboratory Results - last 24 hr 05/20/24 22:30: WBC 11.0, RBC 3.51 L, Hgb 10.2 L, Hct 33.1 L, MCV 94.3, MCH 29.1, MCHC 30.8 L, RDW Std Deviation 50.7 H, RDW Coeff of Dottie 14.9 H, Plt Count 341, MPV 9.6, Immature Gran % (Auto) 1.500 H, Neut % (Auto) 79.1 H, Lymph % (Auto) 9.8 L, [place] % (Auto) 9.4, Eos % (Auto) 0.0, Baso % (Auto) 0.2, Absolute Neuts (auto) 8.7 H, Absolute Lymphs (auto) 1.07, Nucleated RBC % 0, Sodium 132 L, Potassium 4.7, Chloride 99, Carbon Dioxide 22.0, Anion Gap 11, BUN 48 H, Creatinine 6.19 H, Est GFR (MDRD) Af Amer 9 L, Est GFR (MDRD) Non-Af 7 L, BUN/Creatinine Ratio 7.8 L, Glucose 208 H, Calcium 8.2 L, Troponin I High Sens 520 H* 05/21/24 00:28: Magnesium 2.1 05/21/24 00:30: Troponin I High Sens 1043 H* 05/21/24 02:45: PT 13.9, INR 1.1, APTT 25.4 05/21/24 04:36: WBC 5.0, RBC 3.05 L, Hgb 8.9 L, Hct 28.4 L, MCV 93.1, MCH 29.2, MCHC 31.3 L, RDW Std Deviation 49.8 H, RDW Coeff of Dottie 14.6, Plt Count 245, MPV 9.8, Immature Gran % (Auto) 1.600 H, Neut % (Auto) 87.3 H, Lymph % (Auto) 4.4 L, [place] % (Auto) 6.5, Eos % (Auto) 0.0, Baso % (Auto) 0.2, Absolute Neuts (auto) 4.3, Absolute Lymphs (auto) 0.22 L, Nucleated RBC % 0, Sodium 133 L, Potassium 5.0, Chloride 98, Carbon Dioxide 27.0, Anion Gap 8, BUN 56 H, Creatinine 6.51 H, Estim Creat Clear Calc 8.13, Est GFR (MDRD) Af Amer 8 L, Est GFR (MDRD) Non-Af 7 L, BUN/Creatinine Ratio 8.6 L, Glucose 210 H, Calcium 8.1 L, Total Bilirubin 0.80, AST 95 H, ALT 59 H, Alkaline Phosphatase 156 H, Troponin I High Sens 6637 H*, Total Protein 7.4, Albumin 2.8 L, Globulin 4.6 H, Albumin/Globulin Ratio 0.6 L 05/21/24 08:25: APTT 63.6 H, Troponin I High Sens 9271 H* 05/21/24 11:30: POC Glucose 152 H 05/21/24 15:05: APTT 75.4 H 05/21/24 16:50: POC Glucose 138 H ABG Data ABG results: ABG 05/20/24 23:03 Specimen Type ART Sample Site L Brach pH 7.37 Bicarbonate Actual 24.5 Total CO2 26 Base Excess -1 O2 Saturation 94 L O2 % 30.0 ABG pCO2 42.2 ABG pO2 71 L Respiration Rate 12 O2 Delivery Device BiPAP Vent Mode Not entered Clinical Comments 02/05 Cardiology Labs/Tests 05/20/24 22:30: WBC 11.0, RBC 3.51 L, Hgb 10.2 L, Hct 33.1 L, MCV 94.3, MCH 29.1, MCHC 30.8 L, Plt Count 341, MPV 9.6, Immature Gran % (Auto) 1.500 H, Neut % (Auto) 79.1 H, Lymph % (Auto) 9.8 L, [place] % (Auto) 9.4, Eos % (Auto) 0.0, Baso % (Auto) 0.2, Absolute Neuts (auto) 8.7 H, Nucleated RBC % 0, Sodium 132 L, Potassium 4.7, Chloride 99, Carbon Dioxide 22.0, Anion Gap 11, BUN 48 H, Creatinine 6.19 H, Est GFR (MDRD) Af Amer 9 L, Est GFR (MDRD) Non-Af 7 L, BUN/Creatinine Ratio 7.8 L, Glucose 208 H, Calcium 8.2 L 05/20/24 23:03: pH 7.37, Bicarbonate Actual 24.5, Base Excess -1, O2 Saturation 94 L, ABG pCO2 42.2, ABG pO2 71 L 05/21/24 00:28: Magnesium 2.1 05/21/24 02:45: PT 13.9, INR 1.1, APTT 25.4 05/21/24 04:36: WBC 5.0, RBC 3.05 L, Hgb 8.9 L, Hct 28.4 L, MCV 93.1, MCH 29.2, MCHC 31.3 L, Plt Count 245, MPV 9.8, Immature Gran % (Auto) 1.600 H, Neut % (Auto) 87.3 H, Lymph % (Auto) 4.4 L, [place] % (Auto) 6.5, Eos % (Auto) 0.0, Baso % (Auto) 0.2, Absolute Neuts (auto) 4.3, Nucleated RBC % 0, Sodium 133 L, Potassium 5.0, Chloride 98, Carbon Dioxide 27.0, Anion Gap 8, BUN 56 H, Creatinine 6.51 H, Est GFR (MDRD) Af Amer 8 L, Est GFR (MDRD) Non-Af 7 L, BUN/Creatinine Ratio 8.6 L, Glucose 210 H, Calcium 8.1 L, Total Bilirubin 0.80 05/21/24 08:25: APTT 63.6 H 05/21/24 15:05: APTT 75.4 H Rhythm: EKG: ECHO: Stress Test: Cardiac Cath: PCI: CT Surgery: Holter monitor: EPS: PPM: CXR: Chest CT Scan: Radiography Diagnostic Testing: Radiology Impression Chest X-Ray 05/20/24 22:30 IMPRESSION: bilateral perihilar interstitial infiltrates or pulmonary edema more severe in the lower lobes with improved aeration at the right base Electronically Signed: Jefferson Warner MD at 22:48 EDT , Echocardiogram 05/21/24 02:02 Interpretation Summary The left ventricular ejection fraction is 55 %. Mild focal mitral valve calcification. Mild-Moderate (1-2+) eccentric mitral valve insufficiency. Ordering Physician: Concepcion Lamb Performed By: Fritz Murphy and Student
[2024-05-21] MEDS: Atorvastatin Calcium 80 MG Tablet PO (21:37)
[2024-05-21] MEDS: Isosorbide DN 20 MG Tablet PO (21:43)
[2024-05-21] MEDS: Carvedilol 25 MG Tablet PO (21:47)
[2024-05-21] MEDS: Insulin Lispro 100 UNIT/ML INSULN.PEN SC (22:44)
[2024-05-21 23:07] LABS: Bedside Glucose 168 mg/dL (74-106)
[2024-05-21 23:13] LABS: Partial Thromboplast Time 79.9 Seconds (24.1-36.2)
[2024-05-22] VITALS (20 sets, daily range): BP systolic 99–172; BP diastolic 40–79; PULSE 70–89; RESP 12–20; TEMP 36.6–37.2; O2SAT 95–100; BMI 33.1; BMI 31.8
[2024-05-22 06:40] LABS: Absolute Lymphocyte Count 0.32 X10^3/uL (0.83-4.51); Absolute Neutrophil Count 2.2 X10^3/uL (2.0-7.7); Hematocrit 23.9 % (37-47); Hemoglobin 7.7 g/dL (12.0-15.0); Lymphocyte # 0.32 X10^3/ul (0.83-4.51); Lymphocyte % 11.1 % (19-41); Mean Corp Hgb Conc 32.2 g/dL (32-36); Mean Corpuscular Hgb 29.3 pg (27.0-32.0); Mean Corpuscular Volume 90.9 fL (81-99); Mean Platelet Vol. 9.4 fl (6.2-12.0); Monocyte% 10.4 % (0-10); NRBC Flagged by Analyzer 0.7 % (0-5); Neutrophil # 2.21 X10^3/uL (2.7-7.7); Neutrophil % 76.8 % (47-70); POSITIVE DIFFERENTIAL YES; Platelet Count 218 K/mm3 (150-450); RBC Distribution Width CV 14.5 % (11.6-14.6); RBC Distribution Width SD 47.8 fl (35.1-43.9); Red Blood Count 2.63 M/mm3 (4.2-5.4); White Blood Count 2.9 K/mm3 (4.4-11.0)
[2024-05-22] MEDS: PureFlow B 2K Dialysis Soln 1 BAG 6 BAG PF (06:41)
[2024-05-22] MEDS: 0.9% Normal Saline 1,000 ML IV.SOLN. 1000 ML OPERA.SITE (06:41)
[2024-05-22] MEDS: 0.9% Saline Lock 10 ML Syringe IV (06:41)
[2024-05-22] MEDS: Midodrine HCl 5 MG Tablet 10 MG PO (06:41)
[2024-05-22 06:42] LABS: Partial Thromboplast Time 63.7 Seconds (24.1-36.2)
[2024-05-22 06:47] LABS: Differential Indicated SCAN CRITERIA MET
[2024-05-22 07:31] LABS: Anion Gap 11 (5-15); BUN 87 mg/dL (7-18); BUN/Creat Ratio 10.3 RATIO (10-20); Calcium,Total 7.9 mg/dL (8.5-10.1); Chloride 97 mmol/L (98-107); Creatinine, Serum 8.48 mg/dL (0.55-1.02); EST Glomerular Filtration Rate 5 mL/min (>60); Est Glom Filt Rate - Afr Amer 6 mL/min (>60); Estimated Creatinine Clearance 6.23 ml/min; Glucose 152 mg/dL (74-106); Potassium 5.3 mmol/L (3.5-5.1); Sodium Level 132 mmol/L (136-145)
[2024-05-22] MEDS: Ipratropium/Albuterol Sulfate 3 ML AMPUL.NEB INHALATION ×3 (07:39→19:09)
[2024-05-22 07:51] LABS: Anisocytosis 1+; Differential Comment SCANNED; Platelet Estimate ADEQUATE (ADEQ)
[2024-05-22 07:52] LABS: Hypochromasia 1+; Macrocytosis 1+; Polychromasia 1+
[2024-05-22 07:53] LABS: Ovalocyte 1+; Schistocytes RARE
[2024-05-22] MEDS: HEPARIN/D5w 25,000 UNITS 25,000 UNITS/250 ML IV.SOLN. 7 UNITS CONT INF (10:10)
[2024-05-22] MEDS: Multivitamins,Therapeutic Tablet 1 TABLET PO (10:11)
[2024-05-22] MEDS: Calcium Acetate 667 MG Capsule 1334 MG PO ×3 (10:11→16:09)
[2024-05-22] MEDS: Cilostazol 50 MG Tablet PO ×2 (10:11→20:28)
[2024-05-22] MEDS: amLODIPine 10 MG Tablet PO (10:12)
[2024-05-22] MEDS: Cinacalcet HCl 30 MG Tablet PO (10:12)
[2024-05-22] MEDS: Clopidogrel Bisulfate 75 MG Tablet PO (10:12)
[2024-05-22] MEDS: guaiFENesin 1,200 MG Tablet 1200 MG PO ×2 (10:13→20:27)
[2024-05-22] MEDS: Aspirin E.C. 81 MG Tablet PO (10:13)
[2024-05-22] MEDS: Ferrous Sulfate 325 MG Tablet PO (10:14)
[2024-05-22] MEDS: Heparin 10,000 UNITS/10 ML Vial IV (10:18)
[2024-05-22] MEDS: Isosorbide DN 20 MG Tablet PO ×2 (10:23→20:28)
[2024-05-22] MEDS: Carvedilol 25 MG Tablet PO ×2 (10:23→20:28)
[2024-05-22] MEDS: Bisacodyl 5 MG Tablet 10 MG PO (12:09)
[2024-05-22] MEDS: Polyethylene Glycol 3350 17 GM PACKET PO (12:09)
[2024-05-22] MEDS: Senna/Docusate Sodium 1 Tablet 2 TABLET PO ×2 (12:09→20:27)
[2024-05-22] MEDS: hydrALAZINE 25 MG Tablet PO ×2 (12:10→14:28)
[2024-05-22] MEDS: SEVELAMER CARBONATE 800 MG TABLET PO ×2 (12:10→20:28)
[2024-05-22 12:11] LABS: Bedside Glucose 138 mg/dL (74-106)
--- NOTE | 2024-05-22 12:51 | PCM.PN.HOSP ---
Reason for Visit Reason for Visit: Diagnoses Essential (primary) hypertension (05/21/24) Non-ST elevation (NSTEMI) myocardial infarction (05/21/24) Acute respiratory failure with hypoxia (05/21/24) End stage renal disease (05/21/24) Dependence on renal dialysis (05/21/24) Objective Data Objective Data Vital Signs: Vital Signs Temp Pulse Resp BP Pulse Ox O2 Del Method O2 Flow Rate 97.9 F 85 20 H 149/55 H 99 Nasal Cannula 3 05/22/24 10:00 05/22/24 12:10 05/22/24 10:42 05/22/24 10:00 05/22/24 12:19 05/22/24 10:42 05/22/24 12:23 FiO2 30 05/22/24 06:00 Oxygen Flow Rate (L/min) 3 Oxygen Delivery Method Nasal Cannula Weight: 168 lb 10.458 oz Body Mass Index (BMI) 31.8 Intake & Output: Intake and Output for Last 24 Hours 05/20/24 05/21/24 05/22/24 23:59 23:59 23:59 Intake Total 727.0 / 727.0 160.98 / 160.98 Output Total 0 / 0 3050 / 3050 Balance 727.0 / 727.0 -2889.02 / -2889.02 Lab / Micro Data 05/22/24 06:15 05/22/24 06:15 Labs: Laboratory Results - last 24 hr 05/21/24 15:05: APTT 75.4 H 05/21/24 16:50: POC Glucose 138 H 05/21/24 22:39: POC Glucose 168 H 05/21/24 22:46: APTT 79.9 H 05/22/24 06:15: WBC 2.9 L, RBC 2.63 L, Hgb 7.7 L, Hct 23.9 L, MCV 90.9, MCH 29.3, MCHC 32.2, RDW Std Deviation 47.8 H, RDW Coeff of Dottie 14.5, Plt Count 218, MPV 9.4, Immature Gran % (Auto) 1.700 H, Neut % (Auto) 76.8 H, Lymph % (Auto) 11.1 L, Preston % (Auto) 10.4 H, Eos % (Auto) 0.0, Baso % (Auto) 0.0, Absolute Neuts (auto) 2.2, Absolute Lymphs (auto) 0.32 L, Nucleated RBC % 0.7, Differential Comment SCANNED, Diff Path Review January, Platelet Estimate ADEQUATE, Polychromasia 1+, Hypochromasia 1+, Anisocytosis 1+, Macrocytosis 1+, Ovalocytes 1+, Schistocytes RARE, APTT 63.7 H, Sodium 132 L, Potassium 5.3 H, Chloride 97 L, Carbon Dioxide 24.0, Anion Gap 11, BUN 87 H, Creatinine 8.48 H*, Estim Creat Clear Calc 6.23, Est GFR (MDRD) Af Amer 6 L, Est GFR (MDRD) Non-Af 5 L, BUN/Creatinine Ratio 10.3, Glucose 152 H, Calcium 7.9 L 05/22/24 11:43: POC Glucose 138 H 05/22/24 12:11: APTT 72.0 H Radiography Diagnostic Testing: Radiology Impression Echocardiogram 05/21/24 02:02 Interpretation Summary The left ventricular ejection fraction is 55 %. Mild focal mitral valve calcification. Mild-Moderate (1-2+) eccentric mitral valve insufficiency. Ordering Physician: Concepcion Lamb Performed By: Fritz Murphy and Student Physical Exam Narrative Seen and examined. Shortness of breath is better. Patient on BiPAP at night. She is feeling cold all covered but no fever. Physical exam General: Alert, Oriented x3, Cooperative HEENT: Atraumatic, PERRLA, EOMI, Normocephalic Oral: Oral mucosa dry. No Gingival or Mucosal Lesions/ Ulcerations Neck: Supple, No JVD, Negative Carotid Bruits Chest wall/Lungs: Right upper chest dialysis catheter. Air entry diminished in bilateral lung bases. Mild bilateral coarse rhonchi. 3 L oxygen Cardiovascular: Sinus rhythm, S1-S2 with systolic murmur over cardiac apex Abdomen: Bowel Sounds Present, Soft, Non Tender, Non-Distended : On hemodialysis TTS. No dysuria. No renal angle tenderness. No suprapubic tenderness. Extremities: No edema, Capillary Refill Less than 3 Seconds Skin: No rashes, No breakdown Musculoskeletal: No Tenderness to Palpation of Joints or Extremities Neurological: Cranial nerves II-XII grossly intact, DTR 2+/4. No acute focal neurological deficit. Psych/Mental Status: Flat affect Assessment & Plan Assessment/Plan (1) Acute respiratory failure with hypoxia: PLAN: Plan 68-year-old female came to ED with dyspnea and respiratory distress after discharge. On home oxygen testing she required 2 L at rest and on ambulation and was comfortable on that for last 2 days. But this time she was very short of breath and wheezing, pulse ox 97% on 6 L of oxygen put on 510 L of nonrebreather. She was tachypneic with respiratory rate 36, tachycardia heart rate 123/min. 1. Acute on chronic hypoxic respiratory failure due to recent bilateral pneumonia, COPD exacerbation: Patient was admitted in PCU on BiPAP. Patient is being managed on scheduled bronchodilator, IV Solu-Medrol, Mucinex, incentive spirometry and Pep. Levaquin continued. Lactic acid normal. ABG showed 7.3 on BiPAP 18/8 on 30% FiO2. Patient was discharged on Levaquin. Chest x-ray finding was similar bilateral lower lobe peripatellar heterogeneous opacity similar to previous admission. It is reported bilateral perihilar interstitial infiltrates/pulmonary edema more severe in the right lung base. 05/22: Breathing status is improved. On BiPAP at night and 3 L of nasal: Daytime. 2. Non-STEMI with elevated troponin with chronic HFpEF: Twelve-lead EKG shows sinus tachycardia at 107 beats minute, ST depression V3-V6 prominent in V4. QTc 453 ms. Repeat EKG shows sinus rhythm with PAC [address] depression. Previous EKG on June 08 shows normal sinus rhythm with similar slight ST depression V4-V6. Troponin noted was 520, 1043, 6637. She has chronically elevated troponin 266-305 recent echo shows 8 in February 2023. EF 55% with no evidence of diastolic dysfunction. Moderate 2+ MR. 05/21: Discussed with the architectural renderer. 05/22: Mountain Or Glacier Guide consult reviewed. Aggressive medical therapy recommended. Cardiac cath in 2022 was reviewed with architectural renderer and at that time patient was transferred to tertiary care center for high risk PCI/CABG and was decided to manage medically. Left main calcified with extension of calcification with trifurcation into LAD, left circumflex and ramus intermedius. LAD large with mid LAD eccentric calcified 70%, ostial large D1 60%. Ramus intermedius moderate to large size vessel 50 to 60% stenosis. Left circumflex small to moderate size with subtotal ostial and proximal 99%. RCA dominant with diffuse mid RCA around 70%. Patient not candidate for HARRISON/ARB because of ESRD on hemodialysis with hyperkalemia. On hydralazine and isosorbide dinitrate. Hydralazine dose increased to 50 mg twice daily. Medical optimization is the goal. 3. End-stage renal disease on TTS: Account Service Associate Dr. Gaytan consulted whom she follows as an outpatient. 4. Mild normochromic normocytic anemia: H&H 10.9/35.5%. Platelet count 283,000. ESR elevated. 05/21: H&H 8.9/28.4%. 05/19: H&H 9.0/30%. 4. DVT prophylaxis?SCDs. Patient on baby aspirin, Plavix and cilostazol for history of peripheral arterial disease stroke and right-sided carotid stenosis. Patient currently on IV heparin drip. Hold cilostazol 5. Diabetes mellitus type 2: 4.7% in July 2022 last A1c 6.0 in November 2020. She had 12.5% in September 2018. Accu-Chek before meals and at bedtime with Humalog sliding scale coverage and hypoglycemia protocol. 6. Multiple other comorbidities include TIA/stroke, peripheral artery disease, hypertension, rheumatoid arthritis and dyslipidemia: IV DVT prophylaxis: Heparin. CODE status: Full Code status. Charges/Coding Visit Charges Inpatient E&M: 91820 Subs Hosp L2
--- NOTE | 2024-05-22 13:26 | CASEMGMT ---
Social Work SW did create a list of long-term facilities in [facility], in pt's preferred geographic area, in pt's insurance network and complete w/quality and resource use data. SW spoke w/pt about discharge plan, inquired if she would want to consider going to rehab. Pt states no, she will go home; SNF list not given. SW inquired about PT today, as pt walked just 3 feet. SW inquired if she felt she would walk further. Pt states, I was tired. SW explained will have SW/CM follow up w/her Friday to see how she is moving and how she is feeling, to see if SNF needs reconsidered or if the plan will continue to be home w/HHC. Pt states understanding. SW/CM will continue to follow. JAMSHID Platt
[2024-05-22] MEDS: Linezolid 600 MG Tablet PO ×2 (16:09→22:25)
[2024-05-22 16:25] LABS: Bedside Glucose 149 mg/dL (74-106)
[2024-05-22 18:33] LABS: Partial Thromboplast Time 48.3 Seconds (24.1-36.2)
[2024-05-22] MEDS: Atorvastatin Calcium 80 MG Tablet PO (20:27)
[2024-05-22] MEDS: Insulin Lispro 100 UNIT/ML INSULN.PEN SC (20:28)
[2024-05-22] MEDS: MELATONIN 3 MG TABLET PO (22:27)
[2024-05-22 22:47] LABS: Bedside Glucose 195 mg/dL (74-106)
[2024-05-23] VITALS (15 sets, daily range): BP systolic 101–125; BP diastolic 38–54; PULSE 65–81; RESP 12–18; TEMP 36.1–36.9; O2SAT 94–100
[2024-05-23 01:13] LABS: Partial Thromboplast Time 54.5 Seconds (24.1-36.2)
--- NOTE | 2024-05-23 01:20 | NURSING ---
This RN called pharmacy for an APTT result of 54.5, asked whether if it is within goal or below. Per Pharmacy, it was ok to round up to be within goal. Heparin kept @ 7ml/hr rate and new order for APTT draw scheduled six hours after results.
[2024-05-23] MEDS: SEVELAMER CARBONATE 800 MG TABLET PO ×2 (06:31→20:09)
[2024-05-23] MEDS: levoFLOXacin 500 MG Tablet PO (06:31)
[2024-05-23 06:55] LABS: Bedside Glucose 108 mg/dL (74-106)
[2024-05-23] MEDS: Ipratropium/Albuterol Sulfate 3 ML AMPUL.NEB INHALATION ×3 (07:14→19:25)
[2024-05-23 07:27] LABS: Absolute Lymphocyte Count 0.55 X10^3/uL (0.83-4.51); Absolute Neutrophil Count 2.7 X10^3/uL (2.0-7.7); Basophil# 0.01 X10^3/uL; Basophil% 0.3 % (0-1); Eosinophil# 0.07 X10^3/uL; Eosinophils% 1.8 % (0-5); Lymphocyte # 0.55 X10^3/ul (0.83-4.51); Lymphocyte % 14.2 % (19-41); Mean Corpuscular Hgb 29.2 pg (27.0-32.0); Mean Corpuscular Volume 91.2 fL (81-99); Mean Platelet Vol. 9.5 fl (6.2-12.0); Monocyte# 0.46 X10^3/uL; Monocyte% 11.9 % (0-10); NRBC Flagged by Analyzer 0 % (0-5); Neutrophil # 2.72 X10^3/uL (2.7-7.7); POSITIVE DIFFERENTIAL YES; Platelet Count 214 K/mm3 (150-450); RBC Distribution Width CV 14.5 % (11.6-14.6); RBC Distribution Width SD 48.1 fl (35.1-43.9); Red Blood Count 2.74 M/mm3 (4.2-5.4); White Blood Count 3.9 K/mm3 (4.4-11.0)
[2024-05-23 08:04] LABS: Anion Gap 7 (5-15); BUN 77 mg/dL (7-18); BUN/Creat Ratio 11.7 RATIO (10-20); Calcium,Total 7.8 mg/dL (8.5-10.1); Chloride 98 mmol/L (98-107); Creatinine, Serum 6.57 mg/dL (0.55-1.02); EST Glomerular Filtration Rate 7 mL/min (>60); Est Glom Filt Rate - Afr Amer 8 mL/min (>60); Estimated Creatinine Clearance 7.88 ml/min; Glucose 112 mg/dL (74-106); Potassium 4.3 mmol/L (3.5-5.1); Sodium Level 131 mmol/L (136-145)
[2024-05-23 08:12] LABS: Partial Thromboplast Time 60.6 Seconds (24.1-36.2)
[2024-05-23] MEDS: Multivitamins,Therapeutic Tablet 1 TABLET PO (08:33)
[2024-05-23] MEDS: Calcium Acetate 667 MG Capsule 1334 MG PO ×3 (08:34→17:24)
[2024-05-23] MEDS: Isosorbide DN 20 MG Tablet PO ×2 (08:34→20:06)
[2024-05-23] MEDS: Senna/Docusate Sodium 1 Tablet 2 TABLET PO ×2 (08:35→20:08)
[2024-05-23] MEDS: Cinacalcet HCl 30 MG Tablet PO (08:35)
[2024-05-23] MEDS: Aspirin E.C. 81 MG Tablet PO (08:36)
[2024-05-23] MEDS: amLODIPine 10 MG Tablet PO (08:36)
[2024-05-23] MEDS: Cilostazol 50 MG Tablet PO ×2 (08:36→20:06)
[2024-05-23] MEDS: guaiFENesin 1,200 MG Tablet 1200 MG PO ×2 (08:36→20:09)
[2024-05-23] MEDS: Carvedilol 25 MG Tablet PO ×2 (08:37→21:35)
[2024-05-23] MEDS: Clopidogrel Bisulfate 75 MG Tablet PO (08:38)
[2024-05-23] MEDS: Linezolid 600 MG Tablet PO ×2 (08:38→20:09)
[2024-05-23] MEDS: predniSONE 20 MG Tablet 40 MG PO (08:41)
[2024-05-23] MEDS: Ferrous Sulfate 325 MG Tablet PO (08:41)
[2024-05-23 11:37] LABS: Bedside Glucose 108 mg/dL (74-106)
[2024-05-23 13:32] LABS: Partial Thromboplast Time 59.2 Seconds (24.1-36.2)
--- NOTE | 2024-05-23 14:23 | PCM.PN.HOSP ---
Reason for Visit Reason for Visit: Diagnoses Essential (primary) hypertension (05/21/24) Non-ST elevation (NSTEMI) myocardial infarction (05/21/24) Acute respiratory failure with hypoxia (05/21/24) End stage renal disease (05/21/24) Dependence on renal dialysis (05/21/24) Objective Data Objective Data Vital Signs: Vital Signs Temp Pulse Resp BP Pulse Ox O2 Del Method O2 Flow Rate 97.2 F L 65 16 106/38 L 100 Nasal Cannula 2 05/23/24 14:07 05/23/24 14:07 05/23/24 14:07 05/23/24 14:19 05/23/24 14:07 05/23/24 14:07 05/23/24 14:07 FiO2 30 05/23/24 01:17 Oxygen Flow Rate (L/min) 2 Oxygen Delivery Method Nasal Cannula Weight: 168 lb 10.458 oz Body Mass Index (BMI) 31.8 Intake & Output: Intake and Output for Last 24 Hours 05/21/24 05/22/24 05/23/24 23:59 23:59 23:59 Intake Total 727.0 / 727.0 666.35 / 666.35 403.70 / 403.70 Output Total 0 / 0 3200 / 3200 Balance 727.0 / 727.0 -2533.65 / -2533.65 403.70 / 403.70 Lab / Micro Data 05/23/24 06:55 05/23/24 06:55 Labs: Laboratory Results - last 24 hr 05/22/24 16:08: POC Glucose 149 H 05/22/24 18:01: APTT 48.3 H 05/22/24 20:20: POC Glucose 195 H 05/23/24 00:42: APTT 54.5 H 05/23/24 06:22: POC Glucose 108 H 05/23/24 06:55: WBC 3.9 L, RBC 2.74 L, Hgb 8.0 L, Hct 25.0 L, MCV 91.2, MCH 29.2, MCHC 32.0, RDW Std Deviation 48.1 H, RDW Coeff of Dottie 14.5, Plt Count 214, MPV 9.5, Immature Gran % (Auto) 1.800 H, Neut % (Auto) 70.0, Lymph % (Auto) 14.2 L, [place] % (Auto) 11.9 H, Eos % (Auto) 1.8, Baso % (Auto) 0.3, Absolute Neuts (auto) 2.7, Absolute Lymphs (auto) 0.55 L, Nucleated RBC % 0, APTT 60.6 H, Sodium 131 L, Potassium 4.3, Chloride 98, Carbon Dioxide 26.0, Anion Gap 7, BUN 77 H, Creatinine 6.57 H, Estim Creat Clear Calc 7.88, Est GFR (MDRD) Af Amer 8 L, Est GFR (MDRD) Non-Af 7 L, BUN/Creatinine Ratio 11.7, Glucose 112 H, Calcium 7.8 L 05/23/24 10:53: POC Glucose 108 H 05/23/24 13:00: APTT 59.2 H Physical Exam Narrative Seen and examined. Shortness of breath is better. Patient on BiPAP at night. No acute issues overnight Physical exam General: Alert, Oriented x3, Cooperative HEENT: Atraumatic, PERRLA, EOMI, Normocephalic Oral: Oral mucosa dry. No Gingival or Mucosal Lesions/ Ulcerations Neck: Supple, No JVD, Negative Carotid Bruits Chest wall/Lungs: Right upper chest dialysis catheter. Air entry diminished in bilateral lung bases. Mild bilateral lung bases coarse crepitations. On 2 L of oxygen Cardiovascular: Sinus rhythm, S1-S2 with systolic murmur over cardiac apex Abdomen: Bowel Sounds Present, Soft, Non Tender, Non-Distended : On hemodialysis TTS. No dysuria. No renal angle tenderness. No suprapubic tenderness. Extremities: No edema, Capillary Refill Less than 3 Seconds Skin: No rashes, No breakdown Musculoskeletal: No Tenderness to Palpation of Joints or Extremities Neurological: Cranial nerves II-XII grossly intact, DTR 2+/4. No acute focal neurological deficit. Psych/Mental Status: Flat affect Assessment & Plan Assessment/Plan (1) Acute respiratory failure with hypoxia: PLAN: Plan 68-year-old female came to ED with dyspnea and respiratory distress after discharge. On home oxygen testing she required 2 L at rest and on ambulation and was comfortable on that for last 2 days. But this time she was very short of breath and wheezing, pulse ox 97% on 6 L of oxygen put on 510 L of nonrebreather. She was tachypneic with respiratory rate 36, tachycardia heart rate 123/min. 1. Acute on chronic hypoxic respiratory failure due to recent bilateral pneumonia, COPD exacerbation: Patient was admitted in PCU on BiPAP. Patient is being managed on scheduled bronchodilator, IV Solu-Medrol, Mucinex, incentive spirometry and Pep. Levaquin continued. Lactic acid normal. ABG showed 7.3 on BiPAP 18/8 on 30% FiO2. Patient was discharged on Levaquin. Chest x-ray finding was similar bilateral lower lobe peripatellar heterogeneous opacity similar to previous admission. It is reported bilateral perihilar interstitial infiltrates/pulmonary edema more severe in the right lung base. 05/22: Breathing status is improved. On BiPAP at night and 3 L of nasal: Daytime. 05/23: Patient on BiPAP at night and on daytime 2 L of oxygen. Probably will need to go to rehab because she might need BiPAP at night, readmitted with chronic cardiopulmonary conditions. 2. Non-STEMI with elevated troponin with chronic HFpEF: Twelve-lead EKG shows sinus tachycardia at 107 beats minute, ST depression V3-V6 prominent in V4. QTc 453 ms. Repeat EKG shows sinus rhythm with PAC [address] depression. Previous EKG on June 08 shows normal sinus rhythm with similar slight ST depression V4-V6. Troponin noted was 520, 1043, 6637. She has chronically elevated troponin 266-305 recent echo shows 8 in February 2023. EF 55% with no evidence of diastolic dysfunction. Moderate 2+ MR. 05/21: Discussed with the materials engineering technician. 05/22: Rag Inspector consult reviewed. Aggressive medical therapy recommended. Cardiac cath in 2022 was reviewed with materials engineering technician and at that time patient was transferred to tertiary care center for high risk PCI/CABG and was decided to manage medically. Left main calcified with extension of calcification with trifurcation into LAD, left circumflex and ramus intermedius. LAD large with mid LAD eccentric calcified 70%, ostial large D1 60%. Ramus intermedius moderate to large size vessel 50 to 60% stenosis. Left circumflex small to moderate size with subtotal ostial and proximal 99%. RCA dominant with diffuse mid RCA around 70%. Patient not candidate for HARRISON/ARB because of ESRD on hemodialysis with hyperkalemia. On hydralazine and isosorbide dinitrate. Hydralazine dose increased to 50 mg twice daily. Medical optimization is the goal. 05/23: Cardiology signed off. Heart rate and blood pressure well-controlled. 3. End-stage renal disease on TTS: Perfumer Dr. Gaytan consulted whom she follows as an outpatient. 4. Mild normochromic normocytic anemia: H&H 10.9/35.5%. Platelet count 283,000. ESR elevated. 05/21: H&H 8.9/28.4%. 05/22: H&H 7.7/23.9%. 05/23: H&H 8.0/25%. Platelet count normal. 4. DVT prophylaxis?SCDs. Patient on baby aspirin, Plavix and cilostazol for history of peripheral arterial disease stroke and right-sided carotid stenosis. Patient currently on IV heparin drip. Hold cilostazol 5. Diabetes mellitus type 2: 4.7% in July 2022 last A1c 6.0 in November 2020. She had 12.5% in September 2018. Accu-Chek before meals and at bedtime with Humalog sliding scale coverage and hypoglycemia protocol. 6. Multiple other comorbidities include TIA/stroke, peripheral artery disease, hypertension, rheumatoid arthritis and dyslipidemia: IV DVT prophylaxis: Heparin. CODE status: Full Code status. Charges/Coding Visit Charges Inpatient E&M: 68600 Subs Hosp L2
[2024-05-23] MEDS: Insulin Lispro 100 UNIT/ML INSULN.PEN SC ×2 (16:10→20:11)
[2024-05-23 16:38] LABS: Bedside Glucose 163 mg/dL (74-106)
[2024-05-23] MEDS: Acetaminophen 325 MG Tablet 650 MG PO (17:22)
[2024-05-23] MEDS: HEPARIN/D5w 25,000 UNITS 25,000 UNITS/250 ML IV.SOLN. 7 UNITS CONT INF (19:58)
[2024-05-23] MEDS: Atorvastatin Calcium 80 MG Tablet PO (20:14)
[2024-05-23] MEDS: MELATONIN 3 MG TABLET PO (21:35)
[2024-05-23 22:24] LABS: Bedside Glucose 186 mg/dL (74-106)
[2024-05-24] VITALS (14 sets, daily range): BP systolic 111–135; BP diastolic 34–82; PULSE 70–81; RESP 12–18; TEMP 36.6–36.7; O2SAT 93–100; BMI 31.1; BMI 31.8
[2024-05-24] MEDS: SEVELAMER CARBONATE 800 MG TABLET PO ×3 (06:14→20:07)
[2024-05-24 06:16] LABS: Partial Thromboplast Time 70.3 Seconds (24.1-36.2)
[2024-05-24 06:37] LABS: Bedside Glucose 93 mg/dL (74-106)
[2024-05-24] MEDS: Ipratropium/Albuterol Sulfate 3 ML AMPUL.NEB INHALATION ×3 (07:37→19:23)
[2024-05-24] MEDS: Aspirin E.C. 81 MG Tablet PO (08:10)
[2024-05-24] MEDS: Multivitamins,Therapeutic Tablet 1 TABLET PO (08:10)
[2024-05-24] MEDS: Cinacalcet HCl 30 MG Tablet PO (08:10)
[2024-05-24] MEDS: Ferrous Sulfate 325 MG Tablet PO (08:10)
[2024-05-24] MEDS: Senna/Docusate Sodium 1 Tablet 2 TABLET PO ×2 (08:10→20:06)
[2024-05-24] MEDS: Cilostazol 50 MG Tablet PO ×2 (08:10→20:07)
[2024-05-24] MEDS: Calcium Acetate 667 MG Capsule 1334 MG PO ×3 (08:10→16:59)
[2024-05-24] MEDS: predniSONE 20 MG Tablet 40 MG PO (08:11)
[2024-05-24] MEDS: guaiFENesin 1,200 MG Tablet 1200 MG PO ×2 (08:11→20:07)
[2024-05-24] MEDS: Linezolid 600 MG Tablet PO ×2 (08:11→20:06)
[2024-05-24] MEDS: Clopidogrel Bisulfate 75 MG Tablet PO (08:11)
--- NOTE | 2024-05-24 09:59 | PN.HOSP_ITS ---
Reason for Visit Reason for Visit: Diagnoses Essential (primary) hypertension (05/21/24) Non-ST elevation (NSTEMI) myocardial infarction (05/21/24) Acute respiratory failure with hypoxia (05/21/24) End stage renal disease (05/21/24) Dependence on renal dialysis (05/21/24) Subjective Subjective Feels well. Denies any new complaints. Objective Data Objective Data Vital Signs: Vital Signs Temp Pulse Resp BP Pulse Ox O2 Del Method O2 Flow Rate 36.7 C 74 16 120/45 L 100 Nasal Cannula 1 05/24/24 08:00 05/24/24 08:00 05/24/24 08:00 05/24/24 08:00 05/24/24 08:00 05/24/24 08:00 05/24/24 08:00 FiO2 30 05/24/24 02:07 Oxygen Flow Rate (L/min) 1 Oxygen Delivery Method Nasal Cannula Weight: 76.4 kg Body Mass Index (BMI) 31.8 Intake & Output: Intake and Output for Last 24 Hours 05/22/24 05/23/24 05/24/24 23:59 23:59 23:59 Intake Total 666.35 / 666.35 684.53 / 934.53 423.5 / 423.5 Output Total 3200 / 3200 0 / 0 0 / 0 Balance -2533.65 / -2533.65 684.53 / 934.53 423.5 / 423.5 Lab / Micro Data 05/23/24 06:55 05/23/24 06:55 Labs: Laboratory Results - last 24 hr 05/23/24 10:53: POC Glucose 108 H 05/23/24 13:00: APTT 59.2 H 05/23/24 16:10: POC Glucose 163 H 05/23/24 20:11: POC Glucose 186 H 05/24/24 05:56: APTT 70.3 H 05/24/24 06:14: POC Glucose 93 Physical Exam Const alert and no apparent distress HEENT head/scalp atraumatic and moist oral mucous membranes Resp normal respiratory effort, no retractions, no use of accessory muscles and clear to auscultation bilaterally Cardio regular rate, regular rhythm, S1 normal heart sound and S2 normal heart sound GI normal to inspection, nondistended, normoactive bowel sounds, soft to palpation, non-tender and non-distended Neuro Sensorium / Orientation: awake and alert Assessment & Plan Assessment/Plan (1) Acute respiratory failure with hypoxia: PLAN: Plan Acute on chronic hypoxic respiratory failure * 2/2 recent bilateral pneumonia, COPD exacerbation: * Patient was admitted in PCU on BiPAP. Patient is being managed on scheduled bronchodilator, IV Solu-Medrol, Mucinex, incentive spirometry and Pep. Levaquin continued. Lactic acid normal. ABG showed 7.3 on BiPAP 18/8 on 30% FiO2. Bacteremia * On May 18, patient was noted to have staph species in her blood. Unfortunately due to nationwide shortage, only 1 blood culture was performed at that time. Repeat blood culture was not ordered. Unclear if this is due to contaminant but the patient with a port and a dialysis catheter, she is certainly at high risk for ongoing bacteremia. * Repeat blood culture drawn. * Was started on linezolid on the seventh Non-STEMI * Type II event from respiratory failure. Seen by cardiology and recommended medical management. * DC heparin drip End-stage renal disease * Hemodialysis on TTS Chronic conditions * Diabetes mellitus type 2: 4.7% in July 2022 last A1c 6.0 in November 2020. She had 12.5% in September 2018. Accu-Chek before meals and at bedtime with Humalog sliding scale coverage and hypoglycemia protocol. * Multiple other comorbidities include TIA/stroke, peripheral artery disease, hypertension, rheumatoid arthritis and dyslipidemia: IV DVT prophylaxis: SQ Heparin. CODE status: Full Code status. Charges/Coding Visit Charges Inpatient E&M: 15717 Subs Hosp L2
[2024-05-24 11:37] LABS: Bedside Glucose 153 mg/dL (74-106)
[2024-05-24] MEDS: Carvedilol 25 MG Tablet PO ×2 (11:42→20:07)
[2024-05-24] MEDS: Insulin Lispro 100 UNIT/ML INSULN.PEN SC ×3 (11:42→20:05)
[2024-05-24 12:34] LABS: Partial Thromboplast Time 32.8 Seconds (24.1-36.2)
[2024-05-24] MEDS: Acetaminophen 325 MG Tablet 650 MG PO (12:45)
[2024-05-24 13:01] LABS: Pathologist Review Reviewed
--- NOTE | 2024-05-24 15:03 | CON.PCM.ID_ITS ---
Assessment & Plan Assessment/Plan (1) NSTEMI (non-ST elevated myocardial infarction): (2) Acute on chronic hypoxic respiratory failure: (3) ESRD (end stage renal disease) on dialysis: (4) Acute exacerbation of chronic obstructive pulmonary disease (COPD): PLAN: Will stop levaquin now, recommend stopping steroids as well (has completed planned course from last discharge). Will follow as needed, thank you HPI Consult Data Date of Consult: 05/24/24 HPI Narrative Reason for Consultation: pneumonia HPI Narrative: NATALI KINSEY, is a 68 F with ESRD, CHF, CAD, COPD with chronic hypoxic resp failure, presented 05/21 with one day of progressive dyspnea. Had been discharged the day before on levaquin and prednisone for acute on chronic copd exacerbation. Had some chest pain on admit, found to have NSTEMI, seen by cardiology. Feeling better, some sputum, no fever. Full ROS performed and neg except as noted above. [facility] Medical History Alcohol use Wears dentures Shingles outbreak Arthritis Dietary restriction Normal Holter exam History of echocardiogram Cardiology follow-up encounter History of heart attack CHF (congestive heart failure) Severe protein-calorie malnutrition Malnutrition of moderate degree COPD (chronic obstructive pulmonary disease) CAD (coronary artery disease) (HFpEF) heart failure with preserved ejection fraction Substance abuse Dialysis patient GI bleed Hepatitis Hypertension History of hypertension Chronic progressive renal failure TIA (transient ischemic attack) End-stage renal disease on hemodialysis PONV (postoperative nausea and vomiting) Post-menopausal Wears glasses Ambulates with cane High cholesterol Easy bruising Edentulous Gastric reflux On home oxygen therapy Former smoker Shortness of breath on exertion Leg cramps Hyponatremia ESRD (end stage renal disease) on dialysis Acute and chronic respiratory failure with hypoxia Chronic kidney disease, stage V requiring chronic dialysis Cardiac dysrhythmia, unspecified NSTEMI, initial episode of care Anemia Asthma Stroke Diabetes Rheumatoid arthritis Type II diabetes mellitus Hypertension Home Medications ?Medication ?Instructions ?Recorded ?Last Taken ?Type calcium acetate(phosphat bind) 667 2 cap PO TID SUPPLEMENT 03/07/22 05/09/24 History mg capsule cinacalcet 30 mg tablet 30 mg PO DAILY DIALYSIS 09/19/22 05/09/24 History sevelamer carbonate 800 mg tablet 800 mg PO TID DIALYSIS 01/28/23 05/09/24 History ferrous sulfate 325 mg (65 mg 325 mg PO DAILY SUPPLEMENT #90 tabs 08/27/23 05/09/24 Rx iron) tablet (FeroSul) diclofenac sodium 1 % topical gel 2 g topical ONCE PRN ARTHRITIS 10/03/23 11/24/23 History (Voltaren Arthritis Pain) cilostazol 100 mg tablet 50 mg (1/2 x 100 mg) PO BID #60 10/15/23 05/09/24 Rx tabs amlodipine 10 mg tablet 10 mg PO DAILY BLOOD PRESSURE #7 02/13/24 05/10/24 Rx tabs lidocaine 4 % topical patch 1 patch topical DAILY PRN pain #10 02/13/24 Unknown Rx (AsperFlex (lidocaine)) ea aspirin 81 mg tablet,delayed See Rx Instructions .Route 05/20/24 Unknown Rx release .COMPLEX #90 tabs atorvastatin 80 mg tablet 80 mg PO QHS CHOLESTEROL #30 tabs 05/20/24 Unknown Rx carvedilol 12.5 mg tablet 12.5 mg PO BID 05/20/24 Unknown History clopidogrel 75 mg tablet 75 mg PO DAILY BLOOD THINNER #30 05/20/24 Unknown Rx tabs guaifenesin 1,200 mg tablet, 1,200 mg PO BID 7 days #14 tabs 05/20/24 Unknown Rx extended release 12 hr (Mucus Relief ER) hydralazine 25 mg tablet 25 mg PO TID 05/20/24 Unknown History multivitamin with folic acid 400 1 tab PO DAILY 05/20/24 Unknown History mcg tablet (Daily-Caron (with folic acid)) prednisone 20 mg tablet 40 mg (2 x 20 mg) PO DAILY 5 days 05/20/24 Unknown Rx #10 tabs Allergy/AdvReac Type Severity Reaction Status Date / Time ceftriaxone Allergy Severe Rash Verified 05/20/24 21:54 vancomycin Allergy Unknown Rash Verified 05/20/24 21:54 Penicillins Allergy Swelling Verified 05/20/24 21:54 oxycodone HCl (From Percocet) AdvReac Intermediate Itching Verified 05/20/24 21:54 Family History Mother Hypertension Emphysema/COPD Sister Hypertension Surgical History S/P arteriovenous (AV) fistula creation History of arteriovenostomy for renal dialysis History of surgery History of eye surgery knee scope H/O: hysterectomy Social History Smoking Status: Former smoker alcohol intake: current details: 1 per week substance use type: does not use what type of physical activity do you participate in: none Physical Exam Const alert, oriented x3 and no apparent distress General Appearance: cooperative HEENT normocephalic and head/scalp atraumatic Eyes PERRL and EOMs intact bilaterally Neck supple and No nodes Resp Auscultation: wheezes and diminished lung sounds Cardio regular rate and regular rhythm GI soft to palpation, non-tender and non-distended Extremity General Extremity: edema Skin no rashes or lesions noted Neuro CN's II-XII intact bilaterally Lab / Micro Data Attestation: I reviewed the patient's lab results. 05/23/24 06:55 05/23/24 06:55 Labs: Laboratory Results - last 24 hr 05/22/24 06:15: Diff Path Review Reviewed 05/23/24 16:10: POC Glucose 163 H 05/23/24 20:11: POC Glucose 186 H 05/24/24 05:56: APTT 70.3 H 05/24/24 06:14: POC Glucose 93 05/24/24 11:19: POC Glucose 153 H 05/24/24 12:10: APTT 32.8
[2024-05-24 17:15] LABS: Bedside Glucose 181 mg/dL (74-106)
[2024-05-24] MEDS: Heparin Injection (Vial) 5,000 UNIT/ML VIAL 5000 UNIT SC (20:05)
[2024-05-24] MEDS: hydrALAZINE 50 MG Tablet PO (20:06)
[2024-05-24] MEDS: MELATONIN 3 MG TABLET PO (20:06)
[2024-05-24] MEDS: Atorvastatin Calcium 80 MG Tablet PO (20:07)
[2024-05-24] MEDS: Isosorbide DN 20 MG Tablet PO (20:07)
[2024-05-24 21:00] LABS: Bedside Glucose 220 mg/dL (74-106)
--- NOTE | 2024-05-24 22:00 | CPS ---
Pt refused BiPAP for tonight.
[2024-05-25] VITALS (18 sets, daily range): BP systolic 100–169; BP diastolic 38–96; PULSE 70–88; RESP 14–20; TEMP 36.3–36.8; O2SAT 96–100; BMI 32.8; BMI 31.6
[2024-05-25] MEDS: hydrALAZINE 50 MG Tablet PO (05:34)
[2024-05-25] MEDS: SEVELAMER CARBONATE 800 MG TABLET PO ×3 (05:34→21:01)
[2024-05-25 06:39] LABS: Anion Gap 11 (5-15); BUN 116 mg/dL (7-18); BUN/Creat Ratio 12.2 RATIO (10-20); Calcium,Total 7.5 mg/dL (8.5-10.1); Chloride 97 mmol/L (98-107); Creatinine, Serum 9.51 mg/dL (0.55-1.02); EST Glomerular Filtration Rate 4 mL/min (>60); Est Glom Filt Rate - Afr Amer 5 mL/min (>60); Estimated Creatinine Clearance 5.53 ml/min; Glucose 111 mg/dL (74-106); Potassium 4.9 mmol/L (3.5-5.1); Sodium Level 131 mmol/L (136-145)
[2024-05-25] MEDS: Ipratropium/Albuterol Sulfate 3 ML AMPUL.NEB INHALATION ×3 (07:32→19:20)
--- NOTE | 2024-05-25 09:03 | PN.HOSP_ITS ---
Reason for Visit Reason for Visit: Diagnoses Essential (primary) hypertension (05/21/24) Non-ST elevation (NSTEMI) myocardial infarction (05/21/24) Chronic obstructive pulmonary disease with (acute) exacerbation (05/21/24) Acute respiratory failure with hypoxia (05/21/24) Acute and chronic respiratory failure with hypoxia (05/21/24) End stage renal disease (05/21/24) Dependence on renal dialysis (05/21/24) Subjective Subjective Feeling well. No new events. Objective Data Objective Data Vital Signs: Vital Signs Temp Pulse Resp BP Pulse Ox O2 Del Method O2 Flow Rate 36.7 C 78 16 125/96 H 100 Room Air 0 05/25/24 08:30 05/25/24 08:30 05/25/24 08:30 05/25/24 08:30 05/25/24 08:30 05/25/24 08:30 05/24/24 13:00 FiO2 30 05/24/24 02:07 Oxygen Flow Rate (L/min) [ 0 AMBULATING on Room Air] Oxygen Flow Rate (L/min) 1 Oxygen Delivery Method Room Air Weight: 78.9 kg Body Mass Index (BMI) 32.8 Intake & Output: Intake and Output for Last 24 Hours 05/23/24 05/24/24 05/25/24 23:59 23:59 23:59 Intake Total 684.53 / 934.53 1167.2 / 1167.2 120 / 120 Output Total 0 / 0 0 / 200 400 / 400 Balance 684.53 / 934.53 1167.2 / 967.2 -280 / -280 Lab / Micro Data 05/23/24 06:55 05/25/24 05:45 Labs: Laboratory Results - last 24 hr 05/22/24 06:15: Diff Path Review Reviewed 05/24/24 11:19: POC Glucose 153 H 05/24/24 12:10: APTT 32.8 05/24/24 16:56: POC Glucose 181 H 05/24/24 20:03: POC Glucose 220 H 05/25/24 05:45: Sodium 131 L, Potassium 4.9, Chloride 97 L, Carbon Dioxide 23.0, Anion Gap 11, BUN 116 H*, Creatinine 9.51 H*, Estim Creat Clear Calc 5.53, Est GFR (MDRD) Af Amer 5 L, Est GFR (MDRD) Non-Af 4 L, BUN/Creatinine Ratio 12.2, G lucose 111 H, Calcium 7.5 L Physical Exam Const alert and no apparent distress HEENT head/scalp atraumatic and moist oral mucous membranes Resp normal respiratory effort, no retractions, no use of accessory muscles and clear to auscultation bilaterally Cardio regular rate and regular rhythm Cardio Narrative: 2/ ZAMZAM at RUSB. GI normal to inspection, nondistended, normoactive bowel sounds, soft to palpation, non-tender and non-distended Assessment & Plan Assessment/Plan (1) Acute respiratory failure with hypoxia: PLAN: Plan Acute on chronic hypoxic respiratory failure * improved * 2/2 recent bilateral pneumonia, COPD exacerbation: * Patient was admitted in PCU on BiPAP. Patient is being managed on scheduled bronchodilator, IV Solu-Medrol, Mucinex, incentive spirometry and Pep. Levaquin continued. Lactic acid normal. ABG showed 7.3 on BiPAP 18/8 on 30% FiO2. Bacteremia * On May 18, patient was noted to have staph species in her blood. Unfortunately due to nationwide shortage, only 1 blood culture was performed at that time. Repeat blood culture was not ordered. Unclear if this is due to contaminant but the patient with a port and a dialysis catheter, she is certainly at high risk for ongoing bacteremia. * Repeat blood culture from 05/24 pending. * Was started on linezolid on the seventh * echo from 05/21 showed an EF 55%. Non-STEMI * Type II event from respiratory failure. Seen by cardiology and recommended medical management. * DC heparin drip End-stage renal disease * Hemodialysis on TTS Chronic conditions * Diabetes mellitus type 2: 4.7% in July 2022 last A1c 6.0 in November 2020. She had 12.5% in September 2018. Accu-Chek before meals and at bedtime with Humalog sliding scale coverage and hypoglycemia protocol. * Multiple other comorbidities include TIA/stroke, peripheral artery disease, hypertension, rheumatoid arthritis and dyslipidemia: IV DVT prophylaxis: SQ Heparin. CODE status: Full Code status. Disposition: pending blood cultures. Charges/Coding Visit Charges Inpatient E&M: 74877 Subs Hosp L2
[2024-05-25 09:39] LABS: Bedside Glucose 73 mg/dL (74-106)
[2024-05-25] MEDS: 0.9% Normal Saline 1,000 ML IV.SOLN. 1000 ML OPERA.SITE (10:09)
[2024-05-25] MEDS: 0.9% Saline Lock 10 ML Syringe IV ×2 (10:09→16:08)
[2024-05-25] MEDS: PureFlow B 2K Dialysis Soln 1 BAG 6 BAG PF (10:10)
--- NOTE | 2024-05-25 11:41 | PN.RENAL_ITS ---
Subjective Subjective Seen on dialysis today. Objective Data Objective Data Vital Signs: Vital Signs Temp Pulse Resp BP Pulse Ox O2 Del Method O2 Flow Rate 98.1 F 77 15 138/70 H 98 Room Air 0 05/25/24 08:30 05/25/24 11:33 05/25/24 11:33 05/25/24 11:33 05/25/24 11:33 05/25/24 11:33 05/24/24 13:00 FiO2 30 05/24/24 02:07 Oxygen Flow Rate (L/min) [ 0 AMBULATING on Room Air] Oxygen Flow Rate (L/min) 1 Oxygen Delivery Method Room Air Weight: 78.9 kg Body Mass Index (BMI) 32.8 Intake & Output: Intake and Output for Last 24 Hours 05/23/24 05/24/24 05/25/24 23:59 23:59 23:59 Intake Total 684.53 / 934.53 1167.2 / 1167.2 120 / 120 Output Total 0 / 0 0 / 200 400 / 400 Balance 684.53 / 934.53 1167.2 / 967.2 -280 / -280 Lab / Micro Data 05/23/24 06:55 05/25/24 05:45 Labs: Laboratory Results - last 24 hr 05/22/24 06:15: Diff Path Review Reviewed 05/24/24 12:10: APTT 32.8 05/24/24 16:56: POC Glucose 181 H 05/24/24 20:03: POC Glucose 220 H 05/25/24 05:45: Sodium 131 L, Potassium 4.9, Chloride 97 L, Carbon Dioxide 23.0, Anion Gap 11, BUN 116 H*, Creatinine 9.51 H*, Estim Creat Clear Calc 5.53, Est GFR (MDRD) Af Amer 5 L, Est GFR (MDRD) Non-Af 4 L, BUN/Creatinine Ratio 12.2, G lucose 111 H, Calcium 7.5 L 05/25/24 08:48: POC Glucose 73 L Physical Exam Narrative Alert awake oriented x 3 no obvious distress no pallor no icterus no JVD s1s2 no murmurs lungs clear abdomen soft no organomegaly no edema no cyanosis Assessment & Plan Assessment/Plan (1) ESRD (end stage renal disease) on dialysis: PLAN: ESRD on HD. Seen on dialysis today. Blood pressure is better. UF 2 to 3 L. Slightly longer treatment. Overall looks better than last week. Saturating well on room air. No significant peripheral edema.
[2024-05-25] MEDS: Acetaminophen 325 MG Tablet 650 MG PO (13:00)
[2024-05-25] MEDS: Heparin 10,000 UNITS/10 ML Vial IV (13:00)
[2024-05-25] MEDS: Multivitamins,Therapeutic Tablet 1 TABLET PO (13:41)
[2024-05-25] MEDS: Calcium Acetate 667 MG Capsule 1334 MG PO (13:41)
[2024-05-25] MEDS: predniSONE 20 MG Tablet 40 MG PO (13:43)
[2024-05-25] MEDS: Carvedilol 25 MG Tablet PO ×2 (13:43→20:59)
[2024-05-25] MEDS: Ferrous Sulfate 325 MG Tablet PO (13:43)
[2024-05-25] MEDS: Aspirin E.C. 81 MG Tablet PO (13:44)
[2024-05-25] MEDS: Isosorbide DN 20 MG Tablet PO ×2 (13:45→21:00)
[2024-05-25] MEDS: Polyethylene Glycol 3350 17 GM PACKET PO (13:45)
[2024-05-25] MEDS: amLODIPine 10 MG Tablet PO (13:45)
[2024-05-25] MEDS: guaiFENesin 1,200 MG Tablet 1200 MG PO ×2 (13:45→21:00)
[2024-05-25] MEDS: Clopidogrel Bisulfate 75 MG Tablet PO (13:46)
[2024-05-25] MEDS: Cilostazol 50 MG Tablet PO ×2 (13:46→21:01)
[2024-05-25] MEDS: Cinacalcet HCl 30 MG Tablet PO (13:46)
[2024-05-25] MEDS: Senna/Docusate Sodium 1 Tablet 2 TABLET PO ×2 (13:46→21:02)
[2024-05-25] MEDS: Linezolid 600 MG Tablet PO ×2 (13:47→21:02)
[2024-05-25 14:16] LABS: Bedside Glucose 76 mg/dL (74-106)
[2024-05-25] MEDS: Ondansetron 4 MG/2 ML Vial IV (16:08)
[2024-05-25] MEDS: Insulin Lispro 100 UNIT/ML INSULN.PEN SC ×2 (16:58→20:59)
[2024-05-25 18:05] LABS: Bedside Glucose 154 mg/dL (74-106)
[2024-05-25] MEDS: Heparin Injection (Vial) 5,000 UNIT/ML VIAL 5000 UNIT SC (20:59)
[2024-05-25] MEDS: Atorvastatin Calcium 80 MG Tablet PO (21:00)
[2024-05-25 22:16] LABS: Bedside Glucose 191 mg/dL (74-106)
[2024-05-25] MEDS: Mag /Aluminum/Simeth WCH UDC 30 ML ORAL.SUSP PO (23:09)
[2024-05-26] VITALS (9 sets, daily range): BP systolic 110–137; BP diastolic 40–62; PULSE 72–80; RESP 16–18; TEMP 36.5–36.7; O2SAT 95–100; BMI 31.8
[2024-05-26] MEDS: 0.9% Saline Lock 10 ML Syringe IV (06:36)
[2024-05-26] MEDS: SEVELAMER CARBONATE 800 MG TABLET PO ×2 (06:37→14:59)
[2024-05-26 06:59] LABS: Bedside Glucose 110 mg/dL (74-106)
[2024-05-26] MEDS: Ipratropium/Albuterol Sulfate 3 ML AMPUL.NEB INHALATION ×3 (07:04→15:25)
[2024-05-26] MEDS: guaiFENesin 1,200 MG Tablet 1200 MG PO (08:05)
[2024-05-26] MEDS: Polyethylene Glycol 3350 17 GM PACKET PO (08:05)
[2024-05-26] MEDS: Senna/Docusate Sodium 1 Tablet 2 TABLET PO (08:05)
[2024-05-26] MEDS: Cilostazol 50 MG Tablet PO (08:06)
[2024-05-26] MEDS: Linezolid 600 MG Tablet PO (08:06)
[2024-05-26] MEDS: Isosorbide DN 20 MG Tablet PO (08:07)
[2024-05-26] MEDS: Clopidogrel Bisulfate 75 MG Tablet PO (08:07)
[2024-05-26] MEDS: Ferrous Sulfate 325 MG Tablet PO (08:07)
[2024-05-26] MEDS: Cinacalcet HCl 30 MG Tablet PO (08:07)
[2024-05-26] MEDS: Aspirin E.C. 81 MG Tablet PO (08:08)
[2024-05-26] MEDS: amLODIPine 10 MG Tablet PO (08:08)
[2024-05-26] MEDS: predniSONE 20 MG Tablet 40 MG PO (08:08)
[2024-05-26] MEDS: Multivitamins,Therapeutic Tablet 1 TABLET PO (08:09)
[2024-05-26] MEDS: Calcium Acetate 667 MG Capsule 1334 MG PO ×3 (08:09→16:42)
[2024-05-26] MEDS: Carvedilol 25 MG Tablet PO (08:09)
[2024-05-26] MEDS: Heparin Injection (Vial) 5,000 UNIT/ML VIAL 5000 UNIT SC (08:10)
--- NOTE | 2024-05-26 09:10 | PN.HOSP_ITS ---
Reason for Visit Reason for Visit: Diagnoses Essential (primary) hypertension (05/21/24) Non-ST elevation (NSTEMI) myocardial infarction (05/21/24) Chronic obstructive pulmonary disease with (acute) exacerbation (05/21/24) Acute respiratory failure with hypoxia (05/21/24) Acute and chronic respiratory failure with hypoxia (05/21/24) End stage renal disease (05/21/24) Dependence on renal dialysis (05/21/24) Subjective Subjective Feeling well. No events. Objective Data Objective Data Vital Signs: Vital Signs Temp Pulse Resp BP Pulse Ox O2 Del Method O2 Flow Rate 36.6 C 77 16 114/58 L 98 Room Air 3 05/26/24 08:44 05/26/24 08:44 05/26/24 08:44 05/26/24 08:44 05/26/24 08:44 05/26/24 08:44 05/25/24 07:32 FiO2 30 05/24/24 02:07 Oxygen Flow Rate (L/min) [ 0 AMBULATING on Room Air] Oxygen Flow Rate (L/min) 3 Oxygen Delivery Method Room Air Weight: 76.5 kg Body Mass Index (BMI) 31.8 Intake & Output: Intake and Output for Last 24 Hours 05/24/24 05/25/24 05/26/24 23:59 23:59 23:59 Intake Total 1167.2 / 1167.2 320 / 570 500 / 500 Output Total 0 / 200 3090 / 3090 Balance 1167.2 / 967.2 -2770 / -2520 500 / 500 Lab / Micro Data 05/23/24 06:55 05/25/24 05:45 Labs: Laboratory Results - last 24 hr 05/25/24 08:48: POC Glucose 73 L 05/25/24 13:37: POC Glucose 76 05/25/24 16:57: POC Glucose 154 H 05/25/24 20:51: POC Glucose 191 H 05/26/24 06:34: POC Glucose 110 H Physical Exam Const alert and no apparent distress HEENT head/scalp atraumatic and moist oral mucous membranes Resp normal respiratory effort, no retractions, no use of accessory muscles and clear to auscultation bilaterally Cardio regular rate, regular rhythm, S1 normal heart sound and S2 normal heart sound GI normal to inspection, nondistended, normoactive bowel sounds, soft to palpation, non-tender and non-distended Extremity normal to inspection and full ROM Assessment & Plan Assessment/Plan (1) Acute respiratory failure with hypoxia: PLAN: Plan Acute on chronic hypoxic respiratory failure * improved * 2/2 recent bilateral pneumonia, COPD exacerbation: * Patient was admitted in PCU on BiPAP. Patient is being managed on scheduled bronchodilator, IV Solu-Medrol, Mucinex, incentive spirometry and Pep. Levaquin continued. Lactic acid normal. ABG showed 7.3 on BiPAP / on 30% FiO2. Bacteremia * On May 18, patient was noted to have staph species in her blood. Unfortunately due to nationwide shortage, only 1 blood culture was performed at that time. Repeat blood culture was not ordered. Unclear if this is due to contaminant but the patient with a port and a dialysis catheter, she is certainly at high risk for ongoing bacteremia. * Repeat blood culture from 05/24 pending and thus far negative * Was started on linezolid on the seventh and completed 9 doses of that. It seems likely that the bacteremia was more of a contaminant so the subsequent culture was negative and previous to that, had been on levofloxacin. * echo from 05/21 showed an EF 55%. Non-STEMI * Type II event from respiratory failure. Seen by cardiology and recommended medical management. * DC heparin drip End-stage renal disease * Hemodialysis on TTS Chronic conditions * Diabetes mellitus type 2: 4.7% in July 2022 last A1c 6.0 in November 2020. She had 12.5% in September 2018. Accu-Chek before meals and at bedtime with Humalog sliding scale coverage and hypoglycemia protocol. * Multiple other comorbidities include TIA/stroke, peripheral artery disease, hypertension, rheumatoid arthritis and dyslipidemia: IV DVT prophylaxis: SQ Heparin. CODE status: Full Code status. Disposition: Discharge home
[2024-05-26 11:43] LABS: Bedside Glucose 141 mg/dL (74-106)
--- NOTE | 2024-05-26 13:39 | PCM.PN.ID ---
Physical Exam Narrative Feeling well, no fever, some cough, no n/v/d. Const alert and no apparent distress Resp normal air movement and clear to auscultation bilaterally Cardio regular rate and regular rhythm GI soft to palpation, non-tender and non-distended Skin no rashes or lesions noted ID ID: Route of nutrition/ use of supplements: [] Nutritional Intake: [] IV Site: [] Gudino Catheter: [] Assessment & Plan Assessment/Plan (1) NSTEMI (non-ST elevated myocardial infarction): (2) Acute on chronic hypoxic respiratory failure: (3) ESRD (end stage renal disease) on dialysis: (4) Acute exacerbation of chronic obstructive pulmonary disease (COPD): PLAN: Completed course of levaquin. Had single (1 of 1) bcx with MS-CoNS last admit. Repeat bcx here neg at 48 hours. This staph was sensitive to levaquin, so I think she completed an appropriate course. Will stop linezolid. Will follow
--- NOTE | 2024-05-26 14:24 | PCM.PN.REN ---
Subjective Subjective Sitting in chair. Denies any complaints today. States breathing much improved. Objective Data Objective Data Vital Signs: Vital Signs Temp Pulse Resp BP Pulse Ox O2 Del Method O2 Flow Rate 97.9 F 74 18 114/58 L 98 Room Air 3 05/26/24 08:44 05/26/24 11:18 05/26/24 11:18 05/26/24 08:44 05/26/24 08:44 05/26/24 08:44 05/25/24 07:32 FiO2 30 05/24/24 02:07 Oxygen Flow Rate (L/min) [ 0 AMBULATING on Room Air] Oxygen Flow Rate (L/min) 3 Oxygen Delivery Method Room Air Weight: 76.5 kg Body Mass Index (BMI) 31.8 Intake & Output: Intake and Output for Last 24 Hours 05/24/24 05/25/24 05/26/24 23:59 23:59 23:59 Intake Total 1167.2 / 1167.2 320 / 570 880 / 880 Output Total 0 / 200 3090 / 3090 0 / 0 Balance 1167.2 / 967.2 -2770 / -2520 880 / 880 Lab / Micro Data 05/23/24 06:55 05/25/24 05:45 Labs: Laboratory Results - last 24 hr 05/25/24 16:57: POC Glucose 154 H 05/25/24 20:51: POC Glucose 191 H 05/26/24 06:34: POC Glucose 110 H 05/26/24 11:08: POC Glucose 141 H Micro: Microbiology 05/24/24 13:13 Blood Culture (Wb) - Left Hand Blood Culture - Preliminary No growth in 48 hours. Physical Exam Narrative Alert awake oriented x 3 no JVD s1s2 no murmurs lungs clear abdomen soft, non tender no edema Tunneled HD catheter dressing C/D/I Assessment & Plan Assessment/Plan (1) ESRD (end stage renal disease) on dialysis: PLAN: - ESRD on HD T//Fri. Patient had dialysis yesterday with fluid removal. No acute indication for [employer]STEWARD[employer] today. Next HD tomorrow with fluid removal as patient tolerates. She had some vomiting yesterday towards end of dialysis. - Anemia of chronic disease; to receive BHAVIN with HD today. Will follow hemoglobin trends - NSTEMI; medical management as per cardiology. On statin and Coreg. We will continue to remove fluid with dialysis as patient tolerates.
[2024-05-26] MEDS: hydrALAZINE 50 MG Tablet PO (14:56)
--- NOTE | 2024-05-26 15:48 | DS.PCM_ITS ---
Providers Date of Admission: 05/21/24 Primary Care Physician: Dr. Prince Cummins, DO Consultations 05/21/24 01:09 Consult: Nephrology Routine Consulting Provider: Africa Gaytan Reason for Consult: ESRD on HD EMERGENT Consult: No Notified: Yes Date Notified: 05/21/24 Time Notified: 06:44 Method of Notification: Answering Service 05/21/24 04:07 Consult: Cardiology Routine Consulting Provider: Sushant Serrano Reason for Consult: Elevated troponin, CAD known history EMERGENT Consult: No MD Notified: Yes Date Notified: 05/21/24 Time Notified: 04:07 Method of Notification: Text 05/22/24 15:04 Consult: Infectious Disease Routine Consulting Provider: Les Galicia Reason for Consult: staph on blood culture 05/18, unclear about species, sent outside, pneumonia EMERGENT Consult: No Notified: Yes Date Notified: 05/22/24 Time Notified: 15:04 Method of Notification: Text Reason For Visit: ACUTE RESPIRATIRY FAILURE ON CHRONIC, COPD EXAC, Diagnosis Discharge Diagnosis (1) Acute respiratory failure with hypoxia: Status: Acute Code(s): J96.01 - Acute respiratory failure with hypoxia Plan Acute on chronic hypoxic respiratory failure * improved * 2/2 recent bilateral pneumonia, COPD exacerbation: * Patient was admitted in PCU on BiPAP. Patient is being managed on scheduled bronchodilator, IV Solu-Medrol, Mucinex, incentive spirometry and Pep. Levaquin continued. Lactic acid normal. ABG showed 7.3 on BiPAP 18/8 on 30% FiO2. Bacteremia * On May 18, patient was noted to have staph species in her blood. Unfortunately due to nationwide shortage, only 1 blood culture was performed at that time. Repeat blood culture was not ordered. Unclear if this is due to contaminant but the patient with a port and a dialysis catheter, she is certainly at high risk for ongoing bacteremia. * Repeat blood culture from 05/24 pending and thus far negative * Was started on linezolid on the seventh and completed 9 doses of that. It seems likely that the bacteremia was more of a contaminant so the subsequent culture was negative and previous to that, had been on levofloxacin. * echo from 05/21 showed an EF 55%. Non-STEMI * Type II event from respiratory failure. Seen by cardiology and recommended medical management. * DC heparin drip End-stage renal disease * Hemodialysis on TTS Chronic conditions * Diabetes mellitus type 2: 4.7% in July 2022 last A1c 6.0 in November 2020. She had 12.5% in September 2018. Accu-Chek before meals and at bedtime with Humalog sliding scale coverage and hypoglycemia protocol. * Multiple other comorbidities include TIA/stroke, peripheral artery disease, hypertension, rheumatoid arthritis and dyslipidemia: CODE status: Full Code status. Disposition: Discharge home Medications at Discharge Home Medications calcium acetate(phosphat bind) 667 mg capsule 2 cap PO TID SUPPLEMENT 03/07/22 cinacalcet 30 mg tablet 30 mg PO DAILY DIALYSIS 09/19/22 sevelamer carbonate 800 mg tablet 800 mg PO TID DIALYSIS 01/28/23 ferrous sulfate 325 mg (65 mg iron) tablet (FeroSul) 325 mg PO DAILY SUPPLEMENT #90 tabs 08/27/23 diclofenac sodium 1 % topical gel (Voltaren Arthritis Pain) 2 g topical ONCE PRN ARTHRITIS 10/03/23 cilostazol 100 mg tablet 50 mg (1/2 x 100 mg) PO BID #60 tabs 10/15/23 amlodipine 10 mg tablet 10 mg PO DAILY BLOOD PRESSURE #7 tabs 02/13/24 lidocaine 4 % topical patch (AsperFlex (lidocaine)) 1 patch topical DAILY PRN pain #10 ea 02/13/24 aspirin 81 mg tablet,delayed release See Rx Instructions .Route .COMPLEX #90 tabs 05/20/24 atorvastatin 80 mg tablet 80 mg PO QHS CHOLESTEROL #30 tabs 05/20/24 carvedilol 12.5 mg tablet 12.5 mg PO BID 05/20/24 clopidogrel 75 mg tablet 75 mg PO DAILY BLOOD THINNER #30 tabs 05/20/24 guaifenesin 1,200 mg tablet, extended release 12 hr (Mucus Relief ER) 1,200 mg PO BID 7 days #14 tabs 05/20/24 hydralazine 25 mg tablet 25 mg PO TID 05/20/24 multivitamin with folic acid 400 mcg tablet (Daily-Caron (with folic acid)) 1 tab PO DAILY 05/20/24 isosorbide dinitrate 20 mg tablet 20 mg PO BID #30 tabs 05/26/24 Hospital Course Operations None Procedures Dialysis Summary of Care Provided Minutes Spent on Discharge: 35 Weight / BMI Weight Weight: 76.5 kg Body Mass Index (BMI) 31.8 ABG / Lab / Microbiology Data 05/23/24 06:55 05/25/24 05:45 Laboratory: Laboratory Results - last 24 hr 05/25/24 16:57: POC Glucose 154 H 05/25/24 20:51: POC Glucose 191 H 05/26/24 06:34: POC Glucose 110 H 05/26/24 11:08: POC Glucose 141 H Microbiology: Microbiology 05/24/24 13:13 Blood Culture (Wb) - Left Hand Blood Culture - Preliminary No growth in 48 hours. D/C Instructions Discharge Diet: Renal Diet Meaningful Use Info Meaningful Use Meaningful Use Diagnoses (Choose all that apply): None applicable Ischemic Stroke Statin Dosing Therapy Reference: STATIN DOSE THERAPY REFERENCE: * Patients > 75 years receive moderate or high dose statin therapy. * Patients 75 years or YOUNGER should receive HIGH intensity statin dose unless contraindicated. You will be required to document reason for non-treatment if statin daily dose does not meet guidelines. HIGH DOSE STATIN THERAPY DAILY Atorvastatin > than or = to 40 mg Rosuvastatin > than or = to 20 mg Amlodipine + Atorvastatin > than or = to 2.5/40 mg Ezetimibe + Simvastatin 10/80 mg Simvastatin 80mg Discharge Plan Admission Admit Date/Time: 05/21/24 00:11 Attending Provider: Tommy Soto Primary Care Provider: Prince Cummins Consulting Providers: oCncepcion Lamb; Deni Gleason; Sushant Serrano; Les Galicia; Africa Gaytan Instructions Additional Instructions / Restrictions: Dialysis every Friday, , and Saturdays. Discharge Orders/Prescriptions Prescriptions: New isosorbide dinitrate 20 mg Tablet 20 mg PO BID Qty: 30 0RF Continued ferrous sulfate [FeroSul] 325 mg (65 mg iron) tablet 325 mg PO DAILY Qty: 90 1RF cilostazol 100 mg tablet 50 mg PO BID Qty: 60 0RF lidocaine [AsperFlex (lidocaine)] 4 % adhesive patch,medicated 1 patch topical DAILY PRN (Reason: pain) Qty: 10 0RF amlodipine 10 mg tablet 10 mg PO DAILY Qty: 7 0RF calcium acetate(phosphat bind) 667 mg capsule 2 cap PO TID cinacalcet 30 mg Tablet 30 mg PO DAILY sevelamer carbonate 800 mg tablet 800 mg PO TID diclofenac sodium [Voltaren Arthritis Pain] 1 % gel 2 g topical ONCE PRN (Reason: ARTHRITIS) Rx Instructions: apply to right knee guaifenesin [Mucus Relief ER] 1,200 mg Tablet Extended Release 12hr 1,200 mg PO BID 7 Days Qty: 14 0RF carvedilol 12.5 mg tablet 12.5 mg PO BID hydralazine 25 mg tablet 25 mg PO TID multivitamin with folic acid [Daily-Caron (with folic acid)] 400 mcg tablet 1 tab PO DAILY aspirin 81 mg tablet,delayed release (DR/EC) See Rx Instructions .ROUTE .COMPLEX Qty: 90 3RF Dose Instruction: TAKE 1 TABLET BY MOUTH DAILY Rx Instructions: TAKE 1 TABLET BY MOUTH DAILY atorvastatin 80 mg tablet 80 mg PO QHS Qty: 30 1RF clopidogrel 75 mg tablet 75 mg PO DAILY Qty: 30 1RF Discontinued prednisone 20 mg tablet 40 mg PO DAILY 5 Days Qty: 10 0RF Referrals / Follow Up: Prince Cummins DO [Primary Care Provider] - Within 2 Weeks Disposition Disposition (needs filled in before D/C Order can be placed): Home Health Service Charges/Coding Visit Charges Inpatient E&M: 04319 Disch Hosp >30min
[2024-05-26] MEDS: Insulin Lispro 100 UNIT/ML INSULN.PEN SC (16:42)
--- NOTE | 2024-05-26 16:47 | CASEMGMT ---
Patient has order for discharge. NIKKI LINARES called [facility] and they will see patient Friday. NIKKI LINARES sent email to [facility] Palliative updating of discharge. NIKKI LINARES called [facility] and updated regarding discharge and that patient will be at her chair time tomorrow. NIKKI LINARES in to discuss discharge with patient and updated regarding [facility] start of care. Bradleytent voiced understanding and denied further needs or concerns. NIKKI LINARES updated discharge plan.
[2024-05-26 17:09] LABS: Bedside Glucose 196 mg/dL (74-106)
== END 2024-05-26 18:16 | disposition home health service (06) | DRG 133 ==
LOC: ED 05-21 00:03 → PCU 05-21 00:35
PROVIDERS: Internal Medicine; Admitting Provider Family Medicine; Emergency Provider Emergency Medicine; PCP Family Medicine
DX: J96.21 Acute and chronic respiratory failure with hypoxia (principal); R78.81 Bacteremia; I21.A1 Myocardial infarction type 2; I13.2 Hypertensive heart and chronic kidney disease with heart failure and with stage 5 chronic kidney disease, or end stage renal disease; D63.8 Anemia in other chronic diseases classified elsewhere; N18.6 End stage renal disease; J44.1 Chronic obstructive pulmonary disease with (acute) exacerbation; E11.22 Type 2 diabetes mellitus with diabetic chronic kidney disease; M06.9 Rheumatoid arthritis, unspecified; D50.9 Iron deficiency anemia, unspecified; I50.32 Chronic diastolic (congestive) heart failure; E78.5 Hyperlipidemia, unspecified; I25.10 Atherosclerotic heart disease of native coronary artery without angina pectoris; E11.51 Type 2 diabetes mellitus with diabetic peripheral angiopathy without gangrene; I25.2 Old myocardial infarction; K21.9 Gastro-esophageal reflux disease without esophagitis; Z99.2 Dependence on renal dialysis; Z87.891 Personal history of nicotine dependence; Z86.73 Personal history of transient ischemic attack (TIA), and cerebral infarction without residual deficits; Z79.82 Long term (current) use of aspirin; Z79.899 Other long term (current) drug therapy; Z79.02 Long term (current) use of antithrombotics/antiplatelets
CPT/HCPCS: 36415; 36600; 71045; 80048; 80053; 82803; 82962; 83735; 84484; 85025; 85610; 85730; 87040; 90937; 93005; 93306; 94002; 94003; 94640; 94668; 94762; 97110; 97162; 97166; 97530; 97535; 97803; 99285; J7030; Q9957; A4216; G0257; J2405

== ENCOUNTER 2024-05-31 10:54 | Inpatient (IN) | payer MEDICAID, SELFPAY ==
[2024-05-31] VITALS (30 sets, daily range): BP systolic 93–150; BP diastolic 43–96; PULSE 73–127; RESP 12–32; TEMP 36.3–36.6; O2SAT 96–100; BMI 31.8; BMI 32.1
--- NOTE | 2024-05-31 11:02 | RAD_ITS ---
STUDY: X-RAY CHEST REASON FOR EXAM: Female, 68 years old. Respiratory failure TECHNIQUE: Single AP portable view of the chest. COMPARISON: Comparison is made with prior study May 20, 2024. FINDINGS: A right-sided double-lumen catheter seen with the tip at the junction of the superior vena cava and right atrium. EKG electrodes are seen. Persistent bilateral airspace disease suggestive of either bilateral pneumonia versus pulmonary edema. This is unchanged. Blunting of both costophrenic angles. Normal size heart. Normal mediastinum and gaye. Normal visualized pulmonary arteries. There is atherosclerotic calcification of the aortic arch with tortuosity. Normal visualized thoracic spine. Normal visualized ribs, clavicles, and shoulders. There is no demonstrated abnormality of the visualized soft tissue structures of the upper abdomen. RAD/Chest 1 View (Portable) IMPRESSION: Bilateral vascular congestion and CHF with possible superimposed pneumonia. Clinical correlation recommended. Electronically Signed: Tacho Russell MD at 11:14 EDT ,
--- NOTE | 2024-05-31 11:05 | EDS_ITS ---
HPI History of Present Illness Chief Complaint: Shortness of Breath Detail of Chief Complaint: Shortness of breath and chest pressure that started abruptly this morning Informant: patient and EMS Onset/Context/Timing Onset: Hours Context: Sudden Onset Timing: Continuous Quality: Pressure Location: Mid chest Current Severity: Severe Maximum Severity: Severe Associated Symptoms Associated Symptoms: chest pain Narrative Narrative: Patient is a 68-year-old woman. She was recently admitted to the hospital for staph bacteremia, acute respiratory failure with hypoxia, type II non-ST elevation TN, and hypertension. She has a history of end-stage renal disease on dialysis, carotid stenosis with history of CVA, and peripheral artery disease. She presents by EMS because of abrupt onset of chest heaviness with shortness of breath. Patient is still having chest discomfort. She is in significant respiratory distress with use of accessory muscles and retractions. Patient is able to answer questions with only 1 or 2 words before gasping for breath. She is presently on a nonrebreather. History is limited due to her respiratory distress. Prior similar symptoms: No Recent Illness/Hospitalization: Yes [facility] Medical History Acute respiratory failure with hypoxia Alcohol use Wears dentures Shingles outbreak Arthritis Dietary restriction Normal Holter exam History of echocardiogram Cardiology follow-up encounter History of heart attack CHF (congestive heart failure) Severe protein-calorie malnutrition Malnutrition of moderate degree COPD (chronic obstructive pulmonary disease) CAD (coronary artery disease) (HFpEF) heart failure with preserved ejection fraction Substance abuse Dialysis patient GI bleed Hepatitis Hypertension History of hypertension Chronic progressive renal failure TIA (transient ischemic attack) End-stage renal disease on hemodialysis PONV (postoperative nausea and vomiting) Post-menopausal Wears glasses Ambulates with cane High cholesterol Easy bruising Edentulous Gastric reflux On home oxygen therapy Former smoker Shortness of breath on exertion Leg cramps Hyponatremia ESRD (end stage renal disease) on dialysis Acute and chronic respiratory failure with hypoxia Chronic kidney disease, stage V requiring chronic dialysis Cardiac dysrhythmia, unspecified NSTEMI, initial episode of care Anemia Asthma Stroke Diabetes Rheumatoid arthritis Type II diabetes mellitus Hypertension Home Medications ?Medication ?Instructions ?Recorded ?Last Taken ?Type calcium acetate(phosphat bind) 667 2 cap PO TID SUPPLEMENT 03/07/22 05/09/24 History mg capsule cinacalcet 30 mg tablet 30 mg PO DAILY DIALYSIS 09/19/22 05/09/24 History sevelamer carbonate 800 mg tablet 800 mg PO TID DIALYSIS 01/28/23 05/09/24 History diclofenac sodium 1 % topical gel 2 g topical ONCE PRN ARTHRITIS 10/03/23 11/24/23 History (Voltaren Arthritis Pain) amlodipine 10 mg tablet 10 mg PO DAILY BLOOD PRESSURE #7 02/13/24 05/10/24 Rx tabs aspirin 81 mg tablet,delayed See Rx Instructions .Route 05/20/24 Unknown Rx release .COMPLEX #90 tabs atorvastatin 80 mg tablet 80 mg PO QHS CHOLESTEROL #30 tabs 05/20/24 Unknown Rx carvedilol 12.5 mg tablet 12.5 mg PO BID 05/20/24 Unknown History clopidogrel 75 mg tablet 75 mg PO DAILY BLOOD THINNER #30 05/20/24 Unknown Rx tabs guaifenesin 1,200 mg tablet, 1,200 mg PO BID 7 days #14 tabs 05/20/24 Unknown Rx extended release 12 hr (Mucus Relief ER) hydralazine 25 mg tablet 25 mg PO TID 05/20/24 Unknown History multivitamin with folic acid 400 1 tab PO DAILY 05/20/24 Unknown History mcg tablet (Daily-Caron (with folic acid)) isosorbide dinitrate 20 mg tablet 20 mg PO BID #30 tabs 05/26/24 Unknown Rx ferrous sulfate 325 mg (65 mg 325 mg PO DAILY SUPPLEMENT #90 tabs 05/28/24 Unknown Rx iron) tablet (FeroSul) Allergy/AdvReac Type Severity Reaction Status Date / Time ceftriaxone Allergy Severe Rash Verified 05/20/24 21:54 vancomycin Allergy Unknown Rash Verified 05/20/24 21:54 Penicillins Allergy Swelling Verified 05/20/24 21:54 oxycodone HCl (From Percocet) AdvReac Intermediate Itching Verified 05/20/24 21:54 Family History Mother Hypertension Emphysema/COPD Sister Hypertension Surgical History S/P arteriovenous (AV) fistula creation History of arteriovenostomy for renal dialysis History of surgery History of eye surgery knee scope H/O: hysterectomy Social History Smoking Status: Former smoker alcohol intake: current details: 1 per week substance use type: does not use what type of physical activity do you participate in: none ROS ROS ED Constitutional Constitutional ED: Reports sweats; Denies chills or fever(s) Eyes Eyes: Denies blurry vision or change in vision ENT ENT ED: Denies rhinorrhea or sore throat Cardiovascular Cardiovascular: Reports chest pain, orthopnea, palpitations and paroxysmal nocturnal dyspnea; Denies racing heartbeat Respiratory/Chest Respiratory/Chest: Reports cough, dyspnea, dyspnea on exertion, orthopnea and paroxysmal nocturnal dyspnea; Denies sputum Gastrointestinal Gastrointestinal: Denies abdominal pain, nausea or vomiting Musculoskeletal Musculoskeletal: Denies arthralgias or myalgias Integumentary Denies rash Neurologic Neurologic: Reports weakness; Denies headache(s) Psychiatric Psychiatric: Reports anxiety Hematologic/Lymphatic Hematologic/Lymphatic: Denies easy bleeding or easy bruising EXAM Physical Exam Const Vital Signs: 05/31/24 10:56 05/31/24 11:01 05/31/24 11:11 Temperature 97.7 F L Temperature Source Axillary Pulse Rate 127 H Respiratory Rate 27 H Respiratory Effort Short of Breath Labored Respiratory Pattern Tachypnea Blood Pressure 150/89 H Blood Pressure Mean 109 Pulse Ox 100 Oxygen Delivery Method Non-Rebreather Non-Rebreather Bi-pap Oxygen Flow Rate (L/min) 15 15 Fraction of Inspired Oxygen (FIO2) 05/31/24 11:47 05/31/24 11:49 Temperature Temperature Source Pulse Rate 95 Respiratory Rate 24 H Respiratory Effort Respiratory Pattern Blood Pressure 114/86 H Blood Pressure Mean 95 Pulse Ox 96 Oxygen Delivery Method Oxygen Flow Rate (L/min) Fraction of Inspired Oxygen (FIO2) 30 Positive well nourished and well developed Constitutional Narrative: Patient has significant Rester distress with use of accessory muscles and retractions. She is able to answer questions with 1 or 2 words for taking a breath. General Appearance ED: well developed; Negative for pallor HEENT normocephalic and atraumatic; Negative for cyanosis of lips/distal nose or tenderness Eyes PERRL and EOMs intact bilaterally General Eye ED: Yes pale conjunctiva; Negative for scleral icterus Neck full ROM, no lymphadenopathy and supple Resp Resp Narrative: Patient respiratory distress. There is rales noted bilaterally. There is no egophony. Breath sounds are symmetric but diminished. Cardio regular rhythm, S1 normal heart sound, S2 normal heart sound and no murmurs Rate: tachycardic GI non-tender, non-distended and no masses Auscultation: normoactive bowel sounds Palpation: soft Back/Spine no CVA tenderness Extremity Extremity Narrative: Bilateral pitting lymphedema Neuro oriented x3, CN's II-XII intact bilaterally and no sensory deficits noted Speech: speech normal Psych Mood & Affect: anxious Skin Skin Narrative: Patient is slightly diaphoretic. General Skin Exam: Negative for jaundice or pallor MDM MDM MDM Narrative Medical decision making narrative: With abrupt onset of shortness of breath chest pressure concern for cardiac ischemia, pulmonary edema. Pulm embolus needs to be considered. If there is no evidence of heart failure on the x-ray will proceed with CTA. EKG, chest x-ray and appropriate blood work was ordered. Most recent admission was reviewed. Lab Data Attestation: I reviewed the patient's lab results. Lab results narrative: White count is elevated 14.3 thousand with slight shift. H&H is 8.4 and 27.3 which is slightly lower than most recent. Troponin is down from [id number]. BNP is elevated at 2153. Labs: Laboratory Results - last 24 hr 05/31/24 11:15 WBC 14.3 H RBC 2.89 L Hgb 8.4 L Hct 27.3 L MCV 94.5 MCH 29.1 MCHC 30.8 L RDW Std Deviation 50.7 H RDW Coeff of Dottie 14.7 H Plt Count 160 MPV 10.0 Immature Gran % (Auto) 2.000 H Neut % (Auto) 71.5 H Lymph % (Auto) 17.4 L Stephenson % (Auto) 4.6 Eos % (Auto) 3.8 Baso % (Auto) 0.7 Absolute Neuts (auto) 10.2 H Absolute Lymphs (auto) 2.49 Nucleated RBC % 0.2 Sodium 135 L Potassium 3.8 Chloride 94 L Carbon Dioxide 30.0 Anion Gap 11 BUN 31 H Creatinine 7.18 H Estim Creat Clear Calc 7.21 Est GFR (MDRD) Af Amer 7 L Est GFR (MDRD) Non-Af 6 L BUN/Creatinine Ratio 4.3 L Glucose 265 H Calcium 8.1 L Troponin I High Sens 3811 H* B-Natriuretic Peptide 2153.1 H ABG Data Attestation: I personally reviewed and interpreted this ABG as follows: Interpretation: ABG reveals mild chronic CO2 retention with significant AA gradient. ABG was obtained on BiPAP. pH 7.41, pCO2 50.6. pO2 72.2 bicarb 32.3 with a base excess of +7.7 and saturation 94.2% on 30%. Patient is on a IP of 20 and EP of 10 Radiography Chest X-Ray - ED: 1 View and Read by ED Physician (Patient has bilateral interstitial fluffiness consistent with heart failure. This is much worse than prior x-ray.) Diagnostic Testing: Clinical Impression(s) from Imaging Studies Chest X-Ray 05/31/24 11:02 IMPRESSION: Bilateral vascular congestion and CHF with possible superimposed pneumonia. Clinical correlation recommended. Electronically Signed: Tacho Russell MD at 11:14 EDT , EKG Initial EKG: Attestation: I personally reviewed and interpreted this EKG as follows: Interpretation: Sinus Tachycardia (Patient has marked ST depression laterally which is worse than prior and raises concern for subendocardial injury. Rate is 121. Parables 160 ms. QS duration 96 ms. QT durations 130 ms.) Management Discussion w/another healthcare provider: Adhesive Sprayer (Spoke Dr. Gregorio. Suspect patient's troponin is elevated due to the fact that she had a recent non-ST elevation TN and renal failure. He will follow along. At this point patient was not anticoagulated.) Treatment and Re-Evaluation Narrative: Patient was placed on BiPAP and started on nitro drip for preload reduction since she is in heart failure with labored breathing and elevated blood pressure. Critical Care Time Critical Care Time: Yes Critical care time (excluding procedures): 30-74 minutes (32), Including time spent: (History, physical, documentation, interpretation of imaging and laboratory results, treatment for respiratory failure due to pulmonary edema with BiPAP and nitroglycerin drip), Discussing w/Patient &/or Family/Customer Complaint Service Supervisor and - (Review of most recent admission. She was discharged on May 26.) Discharge Plan Triage Chief Complaint: Shortness of Breath ED Provider: Gregor Hernandez Dx/Rx/DC Orders Clinical Impression: Acute hypoxic respiratory failure, ESRD (end stage renal disease) on dialysis, Elevated troponin level, Pulmonary edema, Chest pressure, Subendocardial ischemia Prescriptions: No Action amlodipine 10 mg tablet 10 mg PO DAILY Qty: 7 0RF calcium acetate(phosphat bind) 667 mg capsule 2 cap PO TID cinacalcet 30 mg Tablet 30 mg PO DAILY sevelamer carbonate 800 mg tablet 800 mg PO TID diclofenac sodium [Voltaren Arthritis Pain] 1 % gel 2 g topical ONCE PRN (Reason: ARTHRITIS) Rx Instructions: apply to right knee guaifenesin [Mucus Relief ER] 1,200 mg Tablet Extended Release 12hr 1,200 mg PO BID 7 Days Qty: 14 0RF carvedilol 12.5 mg tablet 12.5 mg PO BID hydralazine 25 mg tablet 25 mg PO TID multivitamin with folic acid [Daily-Caron (with folic acid)] 400 mcg tablet 1 tab PO DAILY isosorbide dinitrate 20 mg Tablet 20 mg PO BID Qty: 30 0RF aspirin 81 mg tablet,delayed release (DR/EC) See Rx Instructions .ROUTE .COMPLEX Qty: 90 3RF Dose Instruction: TAKE 1 TABLET BY MOUTH DAILY Rx Instructions: TAKE 1 TABLET BY MOUTH DAILY atorvastatin 80 mg tablet 80 mg PO QHS Qty: 30 1RF clopidogrel 75 mg tablet 75 mg PO DAILY Qty: 30 1RF ferrous sulfate [FeroSul] 325 mg (65 mg iron) tablet 325 mg PO DAILY Qty: 90 1RF Primary Care Provider: Prince Cummins Referrals: Prince Cummins DO [Primary Care Provider] - Print Language: [place] Disposition Disposition: Acute Care Hospital [facility]
[2024-05-31 11:23] LABS: Absolute Lymphocyte Count 2.49 X10^3/uL (0.83-4.51); Absolute Neutrophil Count 10.2 X10^3/uL (2.0-7.7); Basophil% 0.7 % (0-1); Eosinophil# 0.55 X10^3/uL; Eosinophils% 3.8 % (0-5); Hematocrit 27.3 % (37-47); Hemoglobin 8.4 g/dL (12.0-15.0); Lymphocyte # 2.49 X10^3/ul (0.83-4.51); Lymphocyte % 17.4 % (19-41); Mean Corp Hgb Conc 30.8 g/dL (32-36); Mean Corpuscular Hgb 29.1 pg (27.0-32.0); Mean Corpuscular Volume 94.5 fL (81-99); Monocyte# 0.66 X10^3/uL; Monocyte% 4.6 % (0-10); NRBC Flagged by Analyzer 0.2 % (0-5); Neutrophil # 10.24 X10^3/uL (2.7-7.7); Neutrophil % 71.5 % (47-70); Platelet Count 160 K/mm3 (150-450); RBC Distribution Width CV 14.7 % (11.6-14.6); RBC Distribution Width SD 50.7 fl (35.1-43.9); Red Blood Count 2.89 M/mm3 (4.2-5.4); White Blood Count 14.3 K/mm3 (4.4-11.0)
[2024-05-31] MEDS: Furosemide 20 MG/2 ML VIAL IV (11:28)
[2024-05-31 11:44] LABS: Anion Gap 11 (5-15); BUN 31 mg/dL (7-18); BUN/Creat Ratio 4.3 RATIO (10-20); Calcium,Total 8.1 mg/dL (8.5-10.1); Chloride 94 mmol/L (98-107); Creatinine, Serum 7.18 mg/dL (0.55-1.02); EST Glomerular Filtration Rate 6 mL/min (>60); Est Glom Filt Rate - Afr Amer 7 mL/min (>60); Estimated Creatinine Clearance 7.21 ml/min; Glucose 265 mg/dL (74-106); Potassium 3.8 mmol/L (3.5-5.1); Sodium Level 135 mmol/L (136-145); Troponin-I HS 3811 pg/mL (3.0-54.0)
[2024-05-31 11:47] LABS: BNP,B-Type NATRIURETIC PEPTIDE 2153.1 pg/mL (0-100)
[2024-05-31] MEDS: Nitroglycerin Infusion 250 ML 3 MG CONT INF (11:47)
--- NOTE | 2024-05-31 11:52 | CASEMGMT ---
LU received a phone call from Shannon Castrejon with [facility]. Shannon said patient is in the ED and she found out patient has been in and out of the hospital. Shannon asked if she could get the dates of patient's admissions and discharges. LU provided Shannon with these dates. LU let Shannon know that patient was set up with [facility]. Hi said patient is supposed to have an aide from [facility] 1 day a week and she has an emergency response button. LU will update Shannon on patient if she is admitted or not. Bekah SAMAYOA
[2024-05-31 11:55] LABS: Allen Test Positive; Base Excess 8 mmol/L (-2 to +2); Bicarbonate 32.3 mmol/L (22-26); Blood Gas Specimen Type ART; Mode Not entered; O2 Delivery Device BiPAP; PEEP 10; PIP 20; PO2 72 mmHG (75-100); SITE R Brach; SO2 94 % (95-99); Total Carbon Dioxide 34 mmol/L; pCO2 50.6 mmHg (35-45); pH 7.41 (7.35-7.45)
--- NOTE | 2024-05-31 12:01 | PCM.HP.STD ---
HPI - General General Date of Admission: 05/31/24 Date of Service: 05/31/24 Chief Complaint: shortness of breath, chest pain HPI Narrative NATALI KINSEY, is a 68 F with a PMH as outlined who presents via the ED On 05/31/2024 with a complaint of chest pain and shortness of breath. She was reently admitted in the hospital and managed for Staph bacteremia, type II nonstemi and hypertension. She also has ESRD on hemodialysis. She had abrupt onset of shortness of breath and chest heaviness this morning. She denied any cough, palpitations, nausea, vomiting or any other symptoms. Review of systems is otherwise negative. Her granddaughter was by her bedside. Vitals in the ED were Blood pressure of 91.7 Fahrenheit with pulse rate of 127, blood pressure 150/89 and respirate rate of 27. She was initially placed on 15L of oxygen by nonrebreather mask but had to be transitioned to BIPAP. CBC showed hemoglobin of 8.4 with WBC of 14.3 and platelets of 160. Chemistry showed sodium of 135 with potassium of 3.8 and creatinine of 7.18. BNP was 2153 and troponin was 3811. Of note BNP and troponin are chronically elevated. Chest x-ray showed bilateral vascular congestion with CHF with possible superimposed pneumonia. She is being admitted to be managed for acute hypoxic respiratory failure likely due to fluid overload from ESRD as well as non-STEMI [facility] Medical History Acute respiratory failure with hypoxia Alcohol use Wears dentures Shingles outbreak Arthritis Dietary restriction Normal Holter exam History of echocardiogram Cardiology follow-up encounter History of heart attack CHF (congestive heart failure) Severe protein-calorie malnutrition Malnutrition of moderate degree COPD (chronic obstructive pulmonary disease) CAD (coronary artery disease) (HFpEF) heart failure with preserved ejection fraction Substance abuse Dialysis patient GI bleed Hepatitis Hypertension History of hypertension Chronic progressive renal failure TIA (transient ischemic attack) End-stage renal disease on hemodialysis PONV (postoperative nausea and vomiting) Post-menopausal Wears glasses Ambulates with cane High cholesterol Easy bruising Edentulous Gastric reflux On home oxygen therapy Former smoker Shortness of breath on exertion Leg cramps Hyponatremia ESRD (end stage renal disease) on dialysis Acute and chronic respiratory failure with hypoxia Chronic kidney disease, stage V requiring chronic dialysis Cardiac dysrhythmia, unspecified NSTEMI, initial episode of care Anemia Asthma Stroke Diabetes Rheumatoid arthritis Type II diabetes mellitus Hypertension Home Medications ?Medication ?Instructions ?Recorded ?Last Taken ?Type calcium acetate(phosphat bind) 667 2 cap PO TID SUPPLEMENT 03/07/22 05/09/24 History mg capsule cinacalcet 30 mg tablet 30 mg PO DAILY DIALYSIS 09/19/22 05/09/24 History sevelamer carbonate 800 mg tablet 800 mg PO TID DIALYSIS 01/28/23 05/09/24 History diclofenac sodium 1 % topical gel 2 g topical ONCE PRN ARTHRITIS 10/03/23 11/24/23 History (Voltaren Arthritis Pain) amlodipine 10 mg tablet 10 mg PO DAILY BLOOD PRESSURE #7 02/13/24 05/10/24 Rx tabs aspirin 81 mg tablet,delayed See Rx Instructions .Route 05/20/24 Unknown Rx release .COMPLEX #90 tabs atorvastatin 80 mg tablet 80 mg PO QHS CHOLESTEROL #30 tabs 05/20/24 Unknown Rx carvedilol 12.5 mg tablet 12.5 mg PO BID 05/20/24 Unknown History clopidogrel 75 mg tablet 75 mg PO DAILY BLOOD THINNER #30 05/20/24 Unknown Rx tabs guaifenesin 1,200 mg tablet, 1,200 mg PO BID 7 days #14 tabs 05/20/24 Unknown Rx extended release 12 hr (Mucus Relief ER) hydralazine 25 mg tablet 25 mg PO TID 05/20/24 Unknown History multivitamin with folic acid 400 1 tab PO DAILY 05/20/24 Unknown History mcg tablet (Daily-Caron (with folic acid)) isosorbide dinitrate 20 mg tablet 20 mg PO BID #30 tabs 05/26/24 Unknown Rx ferrous sulfate 325 mg (65 mg 325 mg PO DAILY SUPPLEMENT #90 tabs 05/28/24 Unknown Rx iron) tablet (FeroSul) Allergy/AdvReac Type Severity Reaction Status Date / Time ceftriaxone Allergy Severe Rash Verified 05/20/24 21:54 vancomycin Allergy Unknown Rash Verified 05/20/24 21:54 Penicillins Allergy Swelling Verified 05/20/24 21:54 oxycodone HCl (From Percocet) AdvReac Intermediate Itching Verified 05/20/24 21:54 Family History Mother Hypertension Emphysema/COPD Sister Hypertension Surgical History S/P arteriovenous (AV) fistula creation History of arteriovenostomy for renal dialysis History of surgery History of eye surgery knee scope H/O: hysterectomy Social History Smoking Status: Former smoker alcohol intake: current details: 1 per week substance use type: does not use what type of physical activity do you participate in: none ROS Constitutional Constitutional: Reports fatigue, malaise and weakness; Denies anorexia, chills or fever(s) Eyes Eyes: Denies change in vision ENT HEENT: Denies dysphagia, epistaxis, headache(s), nasal discharge or sore throat Cardiovascular Cardiovascular: Reports chest pain, dyspnea on exertion and orthopnea; Denies edema, lightheadedness, palpitations, paroxysmal nocturnal dyspnea, rapid heart rate or syncope Respiratory/Chest Respiratory/Chest: Reports cough, dyspnea, shortness of breath at rest and shortness of breath with exertion; Denies excessive phlegm production, hemoptysis, productive cough or wheezing Gastrointestinal Gastrointestinal: Denies abdominal pain, constipation, diarrhea, nausea or vomiting Genitourinary Genitourinary: Denies burning urination, dysuria or hematuria Musculoskeletal Musculoskeletal: Denies back pain Neurologic Neurologic: Denies confusion, dizziness, focal weakness, headache(s) or numbness Psychiatric Psychiatric: Denies anxiety or depression Vital Signs Vital Signs Vital Signs: 05/31/24 10:56 05/31/24 11:01 05/31/24 11:11 Temperature 97.7 F L Temperature Source Axillary Pulse Rate 127 H Respiratory Rate 27 H Respiratory Effort Short of Breath Labored Respiratory Pattern Tachypnea Blood Pressure 150/89 H Blood Pressure Mean 109 Pulse Ox 100 Oxygen Delivery Method Non-Rebreather Non-Rebreather Bi-pap Oxygen Flow Rate (L/min) 15 15 Fraction of Inspired Oxygen (FIO2) 05/31/24 11:47 05/31/24 11:49 Temperature Temperature Source Pulse Rate 95 Respiratory Rate 24 H Respiratory Effort Respiratory Pattern Blood Pressure 114/86 H Blood Pressure Mean 95 Pulse Ox 96 Oxygen Delivery Method Oxygen Flow Rate (L/min) Fraction of Inspired Oxygen (FIO2) 30 Weight Weight: 168 lb 11.2 oz Body Mass Index (BMI) 31.8 Physical Exam Const alert Constitutional Narrative: frail, weak General Appearance: cooperative HEENT normocephalic and head/scalp atraumatic HEENT Narrative: dry oral mucosa Eyes PERRL, EOMs intact bilaterally and conjunctivae normal Neck no lymphadenopathy, supple and no JVD Resp Resp Narrative: moderately diminished breath sounds bibasally, few crackles. ON BIPAP at time of review Cardio regular rate, regular rhythm, S1 normal heart sound, S2 normal heart sound and no murmurs Extremity normal to inspection, full ROM and no clubbing, cyanosis or edema Extremity Narrative: dialysis catheter in chest Neuro oriented x3, CN's II-XII intact bilaterally, moves all extremities and no focal motor deficits Sensorium / Orientation: awake and alert Motor Exam: strength 5/5 throughout Psych affect normal Results Lab / Micro Data 05/31/24 11:15 05/31/24 11:15 Labs: Laboratory Results - last 24 hr 05/31/24 11:15: WBC 14.3 H, RBC 2.89 L, Hgb 8.4 L, Hct 27.3 L, MCV 94.5, MCH 29.1, MCHC 30.8 L, RDW Std Deviation 50.7 H, RDW Coeff of Dottie 14.7 H, Plt Count 160, MPV 10.0, Immature Gran % (Auto) 2.000 H, Neut % (Auto) 71.5 H, Lymph % (Auto) 17.4 L, [place] % (Auto) 4.6, Eos % (Auto) 3.8, Baso % (Auto) 0.7, Absolute Neuts (auto) 10.2 H, Absolute Lymphs (auto) 2.49, Nucleated RBC % 0.2, Sodium 135 L, Potassium 3.8, Chloride 94 L, Carbon Dioxide 30.0, Anion Gap 11, BUN 31 H, Creatinine 7.18 H, Estim Creat Clear Calc 7.21, Est GFR (MDRD) Af Amer 7 L, Est GFR (MDRD) Non-Af 6 L, BUN/Creatinine Ratio 4.3 L, Glucose 265 H, Calcium 8.1 L, Troponin I High Sens 3811 H*, B-Natriuretic Peptide 2153.1 H ABG Data ABG results: ABG 05/31/24 11:51 Specimen Type ART Sample Site R Brach pH 7.41 Bicarbonate Actual 32.3 H Total CO2 34 Base Excess 8 H O2 Saturation 94 L O2 % 30.0 ABG pCO2 50.6 H ABG pO2 72 L Rodrigo Test Positive O2 Delivery Device BiPAP Vent Mode Not entered POC PEEP 10 Peak Inspir Pressure 20 Imaging Radiology Impression Chest X-Ray 05/31/24 11:02 IMPRESSION: Bilateral vascular congestion and CHF with possible superimposed pneumonia. Clinical correlation recommended. Electronically Signed: Tacho Russell MD at 11:14 EDT , Assessment & Plan Assessment/Plan (1) Pulmonary edema: (2) Chest pressure: (3) Subendocardial ischemia: PLAN: Plan #Acute on chronic hypoxic respiratory failure Due to probable fluid overload. Infection is also a concern as her WBC is elevated and chest x-ray did show evidence of possible fluid overload versus pneumonia. She denies any productive cough. She denies any fever or chills. Troponins are elevated but her troponins are chronically elevated. EKG however did show evidence of some subendocardial injury. His shortness of breath worsened in the ED and she had to be put on BiPAP which she remains on. Will admit to the ICU on account of her being on BiPAP. Cardiology consulted from the ED. Already on aspirin also on Imdur. Patient has ESRD and is on dialysis T/T/S. She does not really make urine. Can therefore not diurese. Started on IV ceftriaxone and azithromycin empirically for pneumonia. Urine for strep and Legionella. Sputum cultures as well as blood cultures. Breathing treatments with bronchodilators. Titrate oxygen to maintain saturation above 90%. hold off on pulmonology consult for now, as patient will likely be weaned off BIPAP soon. If her respiratory status worsens, low threshold for consulting pulmonology. Lactic acid was also elevated at 5.8 but this may have been due to the shortness of breath and hypoxia. Trended down to 1.7 subsequently. #ESRD: On hemodialysis Tuesdays and Saturdays. Consult nephrology. On sevelamer and Cinacalcet. #Chest pain She did have elevated troponins but her troponin is always elevated. I am hard pressed to think that his symptoms are due to non-STEMI. EKG did show some subendocardial injury. Patient started on nitro drip in the ED due to the persistent chest pain. Hold p.o. Imdur. Cardiology consulted. Await recs. Continue aspirin and statin as well as Plavix. She did have an echo done on 05/21/2024 which showed no regional wall motion abnormalities and showed EF of 55% with mild to moderate eccentric mitral valve insufficiency. #History of bacteremia: Noted to have staph bacteremia during her recent admission on May 18, 2024. Repeat blood cultures from 05/24/2024 were negative. She was placed on linezolid and completed 9 doses of that and also subsequently received Levaquin. Her white cell count was down to 3.9 on 05/23/2024 and is now up to 14.3. Been treated with ceftriaxone and azithromycin as above. #Hypertension: On amlodipine. IV hydralazine as needed. Also on carvedilol and imdur. #Hyperlipidemia: On statin. #DVT prophylaxis: Heparin CODE STATUS: Full code Patient counseled extensively about different types of CODE STATUS including full code, DNR CCA and DNR CCA. Patient elects to be full code. Total sbhw-cm-hhdr time 17 minutes. Charges/Coding Visit Charges Inpatient E&M: 94610 Init Hosp L3 Procedures Hospitalists Procedures: 44301 Critical Care 1st Hr (advanced care plan 82041)
[2024-05-31 12:11] LABS: Lactic Acid 5.8 mmol/L (0.4-1.9)
[2024-05-31 15:20] LABS: Reflex Lactate? Y
[2024-05-31 16:21] LABS: Lactic Acid 1.7 mmol/L (0.4-1.9)
[2024-05-31] MEDS: SEVELAMER CARBONATE 800 MG TABLET PO (16:53)
[2024-05-31] MEDS: Calcium Acetate 667 MG Capsule 1334 MG PO (16:54)
[2024-05-31] MEDS: levoFLOXacin IV 750 MG/150 ML BAG 100 MG IV (17:31)
[2024-05-31] MEDS: Ipratropium/Albuterol Sulfate 3 ML AMPUL.NEB INHALATION (18:55)
[2024-05-31] MEDS: Carvedilol 12.5 MG Tablet PO (20:18)
[2024-05-31] MEDS: Atorvastatin Calcium 80 MG Tablet PO (20:18)
[2024-05-31] MEDS: hydrALAZINE 25 MG Tablet PO (20:19)
[2024-05-31] MEDS: guaiFENesin 1,200 MG Tablet 1200 MG PO (20:19)
[2024-05-31] MEDS: Heparin Injection (Vial) 5,000 UNIT/ML VIAL 5000 UNIT SC (20:20)
[2024-05-31] MEDS: Acetaminophen 325 MG Tablet 650 MG PO (23:59)
[2024-06-01] VITALS (48 sets, daily range): BP systolic 83–197; BP diastolic 44–88; PULSE 63–93; RESP 12–25; TEMP 36.2–36.8; O2SAT 93–100; BMI 32.2; BMI 30.9
[2024-06-01] MEDS: Ipratropium/Albuterol Sulfate 3 ML AMPUL.NEB INHALATION ×4 (01:42→19:20)
[2024-06-01 04:11] LABS: Absolute Lymphocyte Count 0.82 X10^3/uL (0.83-4.51); Absolute Neutrophil Count 5.9 X10^3/uL (2.0-7.7); Basophil# 0.02 X10^3/uL; Basophil% 0.3 % (0-1); Eosinophil# 0.04 X10^3/uL; Eosinophils% 0.5 % (0-5); Hematocrit 18.8 % (37-47); Hemoglobin 6.1 g/dL (12.0-15.0); Lymphocyte # 0.82 X10^3/ul (0.83-4.51); Mean Corp Hgb Conc 32.4 g/dL (32-36); Mean Corpuscular Hgb 29.6 pg (27.0-32.0); Mean Corpuscular Volume 91.3 fL (81-99); Mean Platelet Vol. 9.3 fl (6.2-12.0); Monocyte# 0.55 X10^3/uL; Monocyte% 7.4 % (0-10); NRBC Flagged by Analyzer 0.7 % (0-5); Neutrophil # 5.92 X10^3/uL (2.7-7.7); Neutrophil % 79.1 % (47-70); Platelet Count 115 K/mm3 (150-450); RBC Distribution Width CV 14.6 % (11.6-14.6); RBC Distribution Width SD 48.5 fl (35.1-43.9); Red Blood Count 2.06 M/mm3 (4.2-5.4); White Blood Count 7.5 K/mm3 (4.4-11.0)
[2024-06-01 04:28] LABS: Anion Gap 8 (5-15); BUN 43 mg/dL (7-18); BUN/Creat Ratio 5.3 RATIO (10-20); Chloride 95 mmol/L (98-107); EST Glomerular Filtration Rate 5 mL/min (>60); Est Glom Filt Rate - Afr Amer 6 mL/min (>60); Estimated Creatinine Clearance 6.42 ml/min; Glucose 97 mg/dL (74-106); Potassium 4.1 mmol/L (3.5-5.1); Sodium Level 136 mmol/L (136-145)
[2024-06-01] MEDS: hydrALAZINE 25 MG Tablet PO ×3 (05:28→20:02)
[2024-06-01] MEDS: Heparin Injection (Vial) 5,000 UNIT/ML VIAL 5000 UNIT SC (05:29)
[2024-06-01] MEDS: Ferrous Sulfate 325 MG Tablet PO (08:08)
[2024-06-01] MEDS: Calcium Acetate 667 MG Capsule 1334 MG PO ×3 (08:08→16:10)
[2024-06-01] MEDS: amLODIPine 10 MG Tablet PO (08:08)
[2024-06-01] MEDS: Carvedilol 12.5 MG Tablet PO ×2 (08:08→20:01)
[2024-06-01] MEDS: SEVELAMER CARBONATE 800 MG TABLET PO ×3 (08:08→16:10)
[2024-06-01] MEDS: Aspirin E.C. 81 MG Tablet PO (08:08)
[2024-06-01] MEDS: Multivitamins,Therapeutic Tablet 1 TABLET PO (08:09)
[2024-06-01] MEDS: Cinacalcet HCl 30 MG Tablet PO (08:09)
[2024-06-01 08:22] LABS: Hematocrit 19.8 % (37-47); Hemoglobin 6.4 g/dL (12.0-15.0)
[2024-06-01] MEDS: Pantoprazole Sodium 40 MG in 0.9% Normal Saline (100mL MB+) 100 ML 330 MG IV ×2 (09:30→20:03)
[2024-06-01 10:08] LABS: Ferritin 2935 ng/mL (8-252); Iron 75 ug/dL (50-170); Iron Binding Capacity,Total 174 ug/dL (250-450); PERCENT IRON SATURATION 43.1 % (15.0-55.0)
--- NOTE | 2024-06-01 10:38 | CASEMGMT ---
Social Work SW met w/pt in room, SW from home health had called in and said pt may want to complete LW/POA. Pt confirms she would like to complete the documents, but is not up to it today. She plans to put her grandchildren down, but wants to think about what order. SW will stop back as time allows later in the week to have pt complete LW/POA. JAMSHID Platt
--- NOTE | 2024-06-01 10:42 | CON.PCM.CA_ITS ---
Assessment & Plan Assessment/Plan (1) Elevated troponin: PLAN: Patient's troponin on her last admission which was only recently, was more than 9000. This time the troponin are slightly more than 3000. Most likely demand ischemia superimposed upon her history of severe coronary artery disease. See #2 below. (2) CAD (coronary artery disease): PLAN: Patient's previous angiography from January 2023 was reviewed. She has severe triple-vessel calcific coronary artery disease. Ideally that should be treated with coronary artery bypass graft surgery. However I doubt that the patient is a good risk for CABG. The second best option would be high risk multi vessel PCI, probably to the LAD and RCA. She does need a heart team approach towards deciding on the best course of action. In the interim, the patient is on medical management. It is noted that her hemoglobin has dropped down to 6.4 g/dL this morning. Monitor. If further drop in the H&H, then we will need to stop her antiplatelet medications. Nitropaste. Beta-blockers. Calcium channel blockers. (3) (HFpEF) heart failure with preserved ejection fraction: QUALIFIERS: Heart failure chronicity: acute Qualified Code(s): I 50.31 - Acute diastolic (congestive) heart failure PLAN: Patient is a dialysis patient. Nephrology consulted. (4) Acute blood loss anemia: PLAN: Hemoglobin dropped from 8.4 yesterday to 6.4 this morning. Recommend GI consult. Transfuse as necessary. Recommend keeping hemoglobin more than 8. (5) Hypertension: QUALIFIERS: Hypertension type: primary hypertension Qualified Code(s): I10 - Essential (primary) hypertension PLAN: Beta-blockers, nitrates, calcium channel blockers (6) End stage renal disease: PLAN: On hemodialysis. HPI Consult Data Date of Consult: 06/01/24 HPI Narrative Reason for Consultation: Shortness of breath and elevated troponin HPI Narrative: 68-year-old female with past medical history significant for end-stage renal disease on hemodialysis, hypertension and coronary artery disease. She was only recently admitted to the hospital with staph bacteremia. She presented again to the emergency room with complaints of 2 to 3-day history of progressive shortness of breath and chest tightness. Per her, she has been compliant with her dialysis treatments and has not missed any. Patient was noted to be hypoxic on presentation to the emergency room and started on BiPAP. This morning she is comfortable and oxygenating well on nasal cannula. Patient has had coronary angiography done in January of last year. That showed severe triple-vessel disease. [facility] Medical History (Updated 06/01/24 @ 10:[address] Frantz Gregorio MD) CAD (coronary artery disease) (HFpEF) heart failure with preserved ejection fraction Acute respiratory failure with hypoxia Alcohol use Wears dentures Shingles outbreak Arthritis Dietary restriction Normal Holter exam History of echocardiogram Cardiology follow-up encounter History of heart attack CHF (congestive heart failure) Severe protein-calorie malnutrition Malnutrition of moderate degree COPD (chronic obstructive pulmonary disease) Substance abuse Dialysis patient GI bleed Hepatitis Hypertension History of hypertension Chronic progressive renal failure TIA (transient ischemic attack) End-stage renal disease on hemodialysis PONV (postoperative nausea and vomiting) Post-menopausal Wears glasses Ambulates with cane High cholesterol Easy bruising Edentulous Gastric reflux On home oxygen therapy Former smoker Shortness of breath on exertion Leg cramps Hyponatremia ESRD (end stage renal disease) on dialysis Acute and chronic respiratory failure with hypoxia Chronic kidney disease, stage V requiring chronic dialysis Cardiac dysrhythmia, unspecified NSTEMI, initial episode of care Anemia Asthma Stroke Diabetes Rheumatoid arthritis Type II diabetes mellitus Hypertension Home Medications ?Medication ?Instructions ?Recorded ?Last Taken ?Type calcium acetate(phosphat bind) 667 2 cap PO TID SUPPLEMENT 03/07/22 05/09/24 History mg capsule cinacalcet 30 mg tablet 30 mg PO DAILY DIALYSIS 09/19/22 05/09/24 History sevelamer carbonate 800 mg tablet 800 mg PO TID DIALYSIS 01/28/23 05/09/24 History diclofenac sodium 1 % topical gel 2 g topical ONCE PRN ARTHRITIS 10/03/23 11/24/23 History (Voltaren Arthritis Pain) amlodipine 10 mg tablet 10 mg PO DAILY BLOOD PRESSURE #7 02/13/24 05/10/24 Rx tabs aspirin 81 mg tablet,delayed See Rx Instructions .Route 05/20/24 Unknown Rx release .COMPLEX #90 tabs atorvastatin 80 mg tablet 80 mg PO QHS CHOLESTEROL #30 tabs 05/20/24 Unknown Rx carvedilol 12.5 mg tablet 12.5 mg PO BID 05/20/24 Unknown History clopidogrel 75 mg tablet 75 mg PO DAILY BLOOD THINNER #30 05/20/24 Unknown Rx tabs guaifenesin 1,200 mg tablet, 1,200 mg PO BID 7 days #14 tabs 05/20/24 Unknown Rx extended release 12 hr (Mucus Relief ER) hydralazine 25 mg tablet 25 mg PO TID 05/20/24 Unknown History multivitamin with folic acid 400 1 tab PO DAILY 05/20/24 Unknown History mcg tablet (Daily-Caron (with folic acid)) isosorbide dinitrate 20 mg tablet 20 mg PO BID #30 tabs 05/26/24 Unknown Rx ferrous sulfate 325 mg (65 mg 325 mg PO DAILY SUPPLEMENT #90 tabs 05/28/24 Unknown Rx iron) tablet (FeroSul) Allergy/AdvReac Type Severity Reaction Status Date / Time ceftriaxone Allergy Severe Rash Verified 05/20/24 21:54 vancomycin Allergy Unknown Rash Verified 05/20/24 21:54 Penicillins Allergy Swelling Verified 05/20/24 21:54 oxycodone HCl (From Percocet) AdvReac Intermediate Itching Verified 05/20/24 21:54 Family History Mother Hypertension Emphysema/COPD Sister Hypertension Surgical History S/P arteriovenous (AV) fistula creation History of arteriovenostomy for renal dialysis History of surgery History of eye surgery knee scope H/O: hysterectomy Social History Smoking Status: Former smoker alcohol intake: current details: 1 per week substance use type: does not use what type of physical activity do you participate in: none Physical Exam Narrative Comfortable. Lying flat in the bed. No apparent distress. Heart sounds 1 and 2 noted. There is a continuous bruit over the left precordium and infraclavicular space with her recently placed AV fistula. Chest examination reveals decreased air entry at bases. Alert oriented x 3. No ankle edema noted. Risk Stratification Risk Stratification Applicable: No Objective Data Vital Signs: Vital Signs Temp Pulse Resp BP Pulse Ox O2 Del Method O2 Flow Rate 97.9 F 88 19 H 123/65 H 100 Nasal Cannula 2 06/01/24 08:00 06/01/24 10:00 06/01/24 10:00 06/01/24 10:00 06/01/24 10:00 06/01/24 10:00 06/01/24 08:19 FiO2 2 06/01/24 10:00 Oxygen Flow Rate (L/min) 2 Oxygen Delivery Method Nasal Cannula Weight: 170 lb 10.205 oz Body Mass Index (BMI) 32.2 Intake & Output: Intake and Output for Last 24 Hours 05/30/24 05/31/24 06/01/24 23:59 23:59 23:59 Intake Total 177.65 / 177.65 148.35 / 148.35 Output Total 50 / 50 20 / 20 Balance 127.65 / 127.65 128.35 / 128.35 Lab / Micro Data Attestation: I reviewed the patient's lab results. 06/01/24 07:40 06/01/24 04:00 Labs: Laboratory Results - last 24 hr 05/31/24 11:15: WBC 14.3 H, RBC 2.89 L, Hgb 8.4 L, Hct 27.3 L, MCV 94.5, MCH 29.1, MCHC 30.8 L, RDW Std Deviation 50.7 H, RDW Coeff of Dottie 14.7 H, Plt Count 160, MPV 10.0, Immature Gran % (Auto) 2.000 H, Neut % (Auto) 71.5 H, Lymph % (Auto) 17.4 L, [place] % (Auto) 4.6, Eos % (Auto) 3.8, Baso % (Auto) 0.7, Absolute Neuts (auto) 10.2 H, Absolute Lymphs (auto) 2.49, Nucleated RBC % 0.2, Sodium 135 L, Potassium 3.8, Chloride 94 L, Carbon Dioxide 30.0, Anion Gap 11, BUN 31 H , Creatinine 7.18 H, Estim Creat Clear Calc 7.21, Est GFR (MDRD) Af Amer 7 L, E st GFR (MDRD) Non-Af 6 L, BUN/Creatinine Ratio 4.3 L, Glucose 265 H, Lactic Acid 5.8 H*, Calcium 8.1 L, Troponin I High Sens 3811 H*, B-Natriuretic Peptide 2153.1 H 05/31/24 15:30: Lactic Acid 1.7 06/01/24 04:00: WBC 7.5, RBC 2.06 L, Hgb 6.1 L, Hct 18.8 L, MCV 91.3, MCH 29.6, MCHC 32.4 D, RDW Std Deviation 48.5 H, RDW Coeff of Dottie 14.6, Plt Count 115 L, MPV 9.3, Immature Gran % (Auto) 1.700 H, Neut % (Auto) 79.1 H, Lymph % (Auto) 11.0 L, [place] % (Auto) 7.4, Eos % (Auto) 0.5, Baso % (Auto) 0.3, Absolute Neuts (auto) 5.9, Absolute Lymphs (auto) 0.82 L, Nucleated RBC % 0.7, Sodium 136, Potassium 4.1, Chloride 95 L, Carbon Dioxide 33.0 H, Anion Gap 8, BUN 43 H, C reatinine 8.10 H*, Estim Creat Clear Calc 6.42, Est GFR (MDRD) Af Amer 6 L, Est GFR (MDRD) Non-Af 5 L, BUN/Creatinine Ratio 5.3 L, Glucose 97, Calcium 7.0 L 06/01/24 05:11: Iron 75, TIBC 174 L, Iron Saturation 43.1, Ferritin 2935 H, Blood Type A POSITIVE, Antibody Screen NEGATIVE, Crossmatch See Detail 06/01/24 07:40: Hgb 6.4 L, Hct 19.8 L Micro: Microbiology 05/31/24 16:15 Urine Catheter - Catheter Legionella Antigen - Final 05/31/24 16:15 Urine Catheter - Catheter Streptococcus pneumoniae Antigen (M - Final ABG Data ABG results: ABG 05/31/24 11:51 Specimen Type ART Sample Site R Brach pH 7.41 Bicarbonate Actual 32.3 H Total CO2 34 Base Excess 8 H O2 Saturation 94 L O2 % 30.0 ABG pCO2 50.6 H ABG pO2 72 L Rodrigo Test Positive O2 Delivery Device BiPAP Vent Mode Not entered POC PEEP 10 Peak Inspir Pressure 20 Rhythm Strip Rhythm Strip: Sinus Rhythm Cardiology Labs/Tests 05/31/24 11:15: WBC 14.3 H, RBC 2.89 L, Hgb 8.4 L, Hct 27.3 L, MCV 94.5, MCH 29.1, MCHC 30.8 L, Plt Count 160, MPV 10.0, Immature Gran % (Auto) 2.000 H, Neut % (Auto) 71.5 H, Lymph % (Auto) 17.4 L, [place] % (Auto) 4.6, Eos % (Auto) 3.8, Baso % (Auto) 0.7, Absolute Neuts (auto) 10.2 H, Nucleated RBC % 0.2, Sodium 135 L, Potassium 3.8, Chloride 94 L, Carbon Dioxide 30.0, Anion Gap 11, BUN 31 H, C reatinine 7.18 H, Est GFR (MDRD) Af Amer 7 L, Est GFR (MDRD) Non-Af 6 L, B UN/Creatinine Ratio 4.3 L, Glucose 265 H, Lactic Acid 5.8 H*, Calcium 8.1 L, B- Natriuretic Peptide 2153.1 H 05/31/24 11:51: pH 7.41, Bicarbonate Actual 32.3 H, Base Excess 8 H, O2 Saturation 94 L, ABG pCO2 50.6 H, ABG pO2 72 L, Rodrigo Test Positive 05/31/24 15:30: Lactic Acid 1.7 06/01/24 04:00: WBC 7.5, RBC 2.06 L, Hgb 6.1 L, Hct 18.8 L, MCV 91.3, MCH 29.6, MCHC 32.4 D, Plt Count 115 L, MPV 9.3, Immature Gran % (Auto) 1.700 H, Neut % (Auto) 79.1 H, Lymph % (Auto) 11.0 L, [place] % (Auto) 7.4, Eos % (Auto) 0.5, Baso % (Auto) 0.3, Absolute Neuts (auto) 5.9, Nucleated RBC % 0.7, Sodium 136, Potassium 4.1, Chloride 95 L, Carbon Dioxide 33.0 H, Anion Gap 8, BUN 43 H, C reatinine 8.10 H*, Est GFR (MDRD) Af Amer 6 L, Est GFR (MDRD) Non-Af 5 L, B UN/Creatinine Ratio 5.3 L, Glucose 97, Calcium 7.0 L 06/01/24 05:11: Iron 75, TIBC 174 L, Iron Saturation 43.1, Ferritin 2935 H 06/01/24 07:40: Hgb 6.4 L, Hct 19.8 L Rhythm: EKG: Admission ECG showed sinus tachycardia with inferolateral ST depression suggestive of ischemia. ECHO: Echocardiogram done on 05/21/2024 showed normal left ventricular systolic function. Moderate mitral regurgitation was noted. Stress Test: Cardiac Cath: PCI: CT Surgery: Holter monitor: EPS: PPM: CXR: Chest CT Scan: Radiography Diagnostic Testing: Radiology Impression Chest X-Ray 05/31/24 11:02 IMPRESSION: Bilateral vascular congestion and CHF with possible superimposed pneumonia. Clinical correlation recommended. Electronically Signed: Tacho Russell MD at 11:14 EDT ,
[2024-06-01] MEDS: 0.9% Normal Saline 1,000 ML IV.SOLN. 1000 ML OPERA.SITE (12:56)
[2024-06-01] MEDS: PureFlow B 2K Dialysis Soln 1 BAG 6 BAG PF (12:57)
[2024-06-01] MEDS: Ondansetron 4 MG/2 ML Vial IV (13:53)
--- NOTE | 2024-06-01 14:05 | PN_ITS ---
Subjective Subjective Patient seen and examined. She had no active complaints. She was on BiPAP ask for to be removed. According to her nurse, patient had been doing well on 3 L of oxygen but had asked for the BiPAP to be put on because she felt more comfortable with it. Her hemoglobin was down to 6.1 today and on recheck it was 6.4. It is unclear why hemoglobin is dropping like this. She denies any dark tarry stools or any hematemesis. Review of systems otherwise negative. Her chest pain did not recur overnight. Objective Data Objective Data Vital Signs: Vital Signs Temp Pulse Resp BP Pulse Ox O2 Del Method O2 Flow Rate 97.2 F L 63 17 120/65 100 Bi-pap 2 06/01/24 12:25 06/01/24 13:45 06/01/24 13:45 06/01/24 13:45 06/01/24 13:45 06/01/24 13:45 06/01/24 12:00 FiO2 25 06/01/24 13:45 Oxygen Flow Rate (L/min) 2 Oxygen Delivery Method Bi-pap Weight: 170 lb 10.205 oz Body Mass Index (BMI) 32.2 Intake & Output: Intake and Output for Last 24 Hours 05/30/24 05/31/24 06/01/24 23:59 23:59 23:59 Intake Total 177.65 / 177.65 149.35 / 149.35 Output Total 50 / 50 45 / 45 Balance 127.65 / 127.65 104.35 / 104.35 Lab / Micro Data 06/01/24 07:40 06/01/24 04:00 Labs: Laboratory Results - last 24 hr 05/31/24 15:30: Lactic Acid 1.7 06/01/24 04:00: WBC 7.5, RBC 2.06 L, Hgb 6.1 L, Hct 18.8 L, MCV 91.3, MCH 29.6, MCHC 32.4 D, RDW Std Deviation 48.5 H, RDW Coeff of Dottie 14.6, Plt Count 115 L, MPV 9.3, Immature Gran % (Auto) 1.700 H, Neut % (Auto) 79.1 H, Lymph % (Auto) 11.0 L, Divide % (Auto) 7.4, Eos % (Auto) 0.5, Baso % (Auto) 0.3, Absolute Neuts (auto) 5.9, Absolute Lymphs (auto) 0.82 L, Nucleated RBC % 0.7, Sodium 136, Potassium 4.1, Chloride 95 L, Carbon Dioxide 33.0 H, Anion Gap 8, BUN 43 H, C reatinine 8.10 H*, Estim Creat Clear Calc 6.42, Est GFR (MDRD) Af Amer 6 L, Est GFR (MDRD) Non-Af 5 L, BUN/Creatinine Ratio 5.3 L, Glucose 97, Calcium 7.0 L 06/01/24 05:11: Iron 75, TIBC 174 L, Iron Saturation 43.1, Ferritin 2935 H, Blood Type A POSITIVE, Antibody Screen NEGATIVE, Crossmatch See Detail 06/01/24 07:40: Hgb 6.4 L, Hct 19.8 L Micro: Microbiology 05/31/24 16:15 Urine Catheter - Catheter Legionella Antigen - Final 05/31/24 16:15 Urine Catheter - Catheter Streptococcus pneumoniae Antigen (M - Final Rhythm Strip Rhythm Strip: Sinus Rhythm Physical Exam Const alert and oriented x3 Constitutional Narrative: frail, weak General Appearance: cooperative HEENT normocephalic and head/scalp atraumatic Eyes PERRL, EOMs intact bilaterally and conjunctivae normal Neck no lymphadenopathy, supple and no JVD Resp Resp Narrative: moderately diminished breath sounds bibasally, minimal crackles. ON 2L of oxygen after being taken off BIPAP. Cardio regular rate, regular rhythm, S1 normal heart sound, S2 normal heart sound and no murmurs GI normal to inspection, nondistended, normoactive bowel sounds, soft to palpation, non-tender and non-distended Extremity normal to inspection, full ROM, normal capillary refill and no clubbing, cyanosis or edema Extremity Narrative: dialysis catheter in chest General Extremity: no tenderness to palpation of joints or extremities Skin General Skin Exam: no breakdown Neuro oriented x3, CN's II-XII intact bilaterally, moves all extremities and no focal motor deficits Sensorium / Orientation: awake and alert Motor Exam: strength 5/5 throughout Psych thought process normal, cooperative and affect normal Appearance: appropriate Assessment & Plan Assessment/Plan (1) Pulmonary edema: (2) Chest pressure: (3) Subendocardial ischemia: PLAN: Plan #Acute on chronic hypoxic respiratory failure * Due to probable fluid overload. Infection is also a concern as her WBC is elevated and chest x-ray did show evidence of possible fluid overload versus pneumonia. * She denies any productive cough. She denies any fever or chills. * Troponins are elevated but her troponins are chronically elevated. EKG however did show evidence of some subendocardial injury. * now off BIPAP, on 2L of oxygen * Cardiology consulted from the ED. Awaiting recs * Already on aspirin also on Imdur. Patient has ESRD and is on dialysis T/T/S. She does not really make urine. Can therefore not diurese. * Started on IV levofloxacin. Urine for strep and Legionella. Sputum cultures as well as blood cultures. * Breathing treatments with bronchodilators. Titrate oxygen to maintain saturation above 90%. * #Acute on chronic anemia * Hemoglobin was down to 6.1 this morning and on recheck was 6.4. * She denies any melena stools or hematemesis. Stool for occult blood ordered as well as iron panel. * Patient started on IV pantoprazole 40 mg twice daily. Gastroenterology consulted. * Keep on clear liquids for now. * #ESRD: On hemodialysis Tuesdays and Saturdays. nephrology on board. On sevelamer and Cinacalcet. #Chest pain * She did have elevated troponins but her troponin is always elevated. I am hard pressed to think that his symptoms are due to non-STEMI. EKG did show some subendocardial injury. * weaned off nitro drip today. * put back on PO imdur * Cardiology on board. Per cardiology her symptoms are likely due to demand ischemia. She did have cardiac cath in January 2023 which showed severe triple- vessel CAD per cardiology she is not a candidate for CABG and his second best option would be a high risk multivessel PCI probably to the LAD and RCA. * Aspirin and Plavix held this morning due to anemia. Her hemoglobin is down to 6.4. Continue statin * She did have an echo done on 05/21/2024 which showed no regional wall motion abnormalities and showed EF of 55% with mild to moderate eccentric mitral valve insufficiency. * #History of bacteremia: * Noted to have staph bacteremia during her recent admission on May 18, 2024. * Repeat blood cultures from 05/24/2024 were negative. * She was placed on linezolid and completed 9 doses of that and also subsequently received Levaquin. Her white cell count was down to 3.9 on 05/23/2024 and is now up to 14.3. * Been treated with ceftriaxone and azithromycin as above. * #Hypertension: On amlodipine. IV hydralazine as needed. Also on carvedilol and imdur. #Hyperlipidemia: On statin. #DVT prophylaxis: heparin dc'd due to acute on chronic anemia. SCDs. CODE STATUS: Full code Disposition; transfer out of ICU to PCU today Charges/Coding Visit Charges Inpatient E&M: 27276 Subs Hosp L3
--- NOTE | 2024-06-01 14:22 | PCM.CONS.R ---
Assessment & Plan Assessment/Plan (1) End stage renal disease: PLAN: On hemodialysis Friday, , Friday. Last dialysis was Friday. Signed off early due to cramping. Was able to get only 1 L removed. Chest x-ray looks wet. No peripheral edema. Severe anemia which is likely contributing to decompensated heart failure picture. We will plan for dialysis today. Try to remove fluid. We will have 2 units of PRBC with dialysis. Anemia. Hemoglobin is fairly low even compared to last week. Suspected GI bleed. Gastroenterology on consult. HPI Consult Data Date of Consult: 06/01/24 HPI Narrative Reason for Consultation: ESRD HPI Narrative: NATALI KINSEY, is a 68 F who presents To the hospital with shortness of breath. Nephrology on consultation in view of ESRD. ESRD on hemodialysis Friday, , Friday schedule. She was recently admitted here with bacteremia, suspected pneumonia, fluid overload. Recently has not been tolerating fluid removal, has been cramping a lot. Last treatment in hospital was , we were able to remove about 2 L. She went home on Friday, had dialysis as outpatient on Friday. Had cramping again with only 1 L of fluid removal. Blood pressure was okay and of treatment. Signed off early because of the cramping. Came back with shortness of breath. Chest x-ray looks wet, similar to last admission. Hemoglobin is significantly lower. She says she may have had black-colored stools over the weekend. [facility] Medical History (Updated 06/01/24 @ 10:[address] Frantz Gregorio MD) CAD (coronary artery disease) (HFpEF) heart failure with preserved ejection fraction Acute respiratory failure with hypoxia Alcohol use Wears dentures Shingles outbreak Arthritis Dietary restriction Normal Holter exam History of echocardiogram Cardiology follow-up encounter History of heart attack CHF (congestive heart failure) Severe protein-calorie malnutrition Malnutrition of moderate degree COPD (chronic obstructive pulmonary disease) Substance abuse Dialysis patient GI bleed Hepatitis Hypertension History of hypertension Chronic progressive renal failure TIA (transient ischemic attack) End-stage renal disease on hemodialysis PONV (postoperative nausea and vomiting) Post-menopausal Wears glasses Ambulates with cane High cholesterol Easy bruising Edentulous Gastric reflux On home oxygen therapy Former smoker Shortness of breath on exertion Leg cramps Hyponatremia ESRD (end stage renal disease) on dialysis Acute and chronic respiratory failure with hypoxia Chronic kidney disease, stage V requiring chronic dialysis Cardiac dysrhythmia, unspecified NSTEMI, initial episode of care Anemia Asthma Stroke Diabetes Rheumatoid arthritis Type II diabetes mellitus Hypertension Home Medications ?Medication ?Instructions ?Recorded ?Last Taken ?Type calcium acetate(phosphat bind) 667 2 cap PO TID SUPPLEMENT 03/07/22 05/09/24 History mg capsule cinacalcet 30 mg tablet 30 mg PO DAILY DIALYSIS 09/19/22 05/09/24 History sevelamer carbonate 800 mg tablet 800 mg PO TID DIALYSIS 01/28/23 05/09/24 History diclofenac sodium 1 % topical gel 2 g topical ONCE PRN ARTHRITIS 10/03/23 11/24/23 History (Voltaren Arthritis Pain) amlodipine 10 mg tablet 10 mg PO DAILY BLOOD PRESSURE #7 02/13/24 05/10/24 Rx tabs aspirin 81 mg tablet,delayed See Rx Instructions .Route 05/20/24 Unknown Rx release .COMPLEX #90 tabs atorvastatin 80 mg tablet 80 mg PO QHS CHOLESTEROL #30 tabs 05/20/24 Unknown Rx carvedilol 12.5 mg tablet 12.5 mg PO BID 05/20/24 Unknown History clopidogrel 75 mg tablet 75 mg PO DAILY BLOOD THINNER #30 05/20/24 Unknown Rx tabs guaifenesin 1,200 mg tablet, 1,200 mg PO BID 7 days #14 tabs 05/20/24 Unknown Rx extended release 12 hr (Mucus Relief ER) hydralazine 25 mg tablet 25 mg PO TID 05/20/24 Unknown History multivitamin with folic acid 400 1 tab PO DAILY 05/20/24 Unknown History mcg tablet (Daily-Caron (with folic acid)) isosorbide dinitrate 20 mg tablet 20 mg PO BID #30 tabs 05/26/24 Unknown Rx ferrous sulfate 325 mg (65 mg 325 mg PO DAILY SUPPLEMENT #90 tabs 05/28/24 Unknown Rx iron) tablet (FeroSul) Allergy/AdvReac Type Severity Reaction Status Date / Time ceftriaxone Allergy Severe Rash Verified 05/20/24 21:54 vancomycin Allergy Unknown Rash Verified 05/20/24 21:54 Penicillins Allergy Swelling Verified 05/20/24 21:54 oxycodone HCl (From Percocet) AdvReac Intermediate Itching Verified 05/20/24 21:54 Family History Mother Hypertension Emphysema/COPD Sister Hypertension Surgical History S/P arteriovenous (AV) fistula creation History of arteriovenostomy for renal dialysis History of surgery History of eye surgery knee scope H/O: hysterectomy Social History Smoking Status: Former smoker alcohol intake: current details: 1 per week substance use type: does not use what type of physical activity do you participate in: none ROS ROS Narrative negative except above Physical Exam Narrative Alert awake oriented x 3 no obvious distress no pallor no icterus no JVD s1s2 no murmurs lungs rales abdomen soft no organomegaly no edema no cyanosis Lab / Micro Data 06/01/24 07:40 06/01/24 04:00 Labs: Laboratory Results - last 24 hr 05/31/24 15:30: Lactic Acid 1.7 06/01/24 04:00: WBC 7.5, RBC 2.06 L, Hgb 6.1 L, Hct 18.8 L, MCV 91.3, MCH 29.6, MCHC 32.4 D, RDW Std Deviation 48.5 H, RDW Coeff of Dottie 14.6, Plt Count 115 L, MPV 9.3, Immature Gran % (Auto) 1.700 H, Neut % (Auto) 79.1 H, Lymph % (Auto) 11.0 L, Garland % (Auto) 7.4, Eos % (Auto) 0.5, Baso % (Auto) 0.3, Absolute Neuts (auto) 5.9, Absolute Lymphs (auto) 0.82 L, Nucleated RBC % 0.7, Sodium 136, Potassium 4.1, Chloride 95 L, Carbon Dioxide 33.0 H, Anion Gap 8, BUN 43 H, Creatinine 8.10 H*, Estim Creat Clear Calc 6.42, Est GFR (MDRD) Af Amer 6 L, Est GFR (MDRD) Non-Af 5 L, BUN/Creatinine Ratio 5.3 L, Glucose 97, Calcium 7.0 L 06/01/24 05:11: Iron 75, TIBC 174 L, Iron Saturation 43.1, Ferritin 2935 H, Blood Type A POSITIVE, Antibody Screen NEGATIVE, Crossmatch See Detail 06/01/24 07:40: Hgb 6.4 L, Hct 19.8 L Micro: Microbiology 05/31/24 16:15 Urine Catheter - Catheter Legionella Antigen - Final 05/31/24 16:15 Urine Catheter - Catheter Streptococcus pneumoniae Antigen (M - Final Rhythm Strip Rhythm Strip: Sinus Rhythm
--- NOTE | 2024-06-01 14:41 | CHAPLAIN ---
Type of Pastoral Visit _x__ Initial Visit ___ Follow-up Visit ___ On-call Visit ___ General Patient Visit ___ Spiritual Assessment ___ Family Conference ___ Bereavement ___ Rapid Response ___ Code Blue ___ Other (describe below) Pastoral Care Referral From _x__ Patient ___ Family ___ Nurse ___ Physician ___ Merchandise Support Associate ___ Anesthetic Assistant ___ Other (describe below) Sacrament/Intervention ___ Active listening ___ Anointing ___ Orthodox ___ Bereavement ___ Communion ___ Analisa exploration ___ ___ Life review _x__ Prayer ___ Reconciliation ___ Sacrament of Sick _x__ Supportive presence ___ Wedding ___ Other (describe below) Pastoral Comments the patient was awake and had her lunch tray before her; pt had some difficulty talking due to taking breaths and eating; offered a brief visit and she agreed; pt states that she is managing as good as she can; pt states that a prayer would be helpful to her today
[2024-06-01] MEDS: 0.9% Saline Lock 10 ML Syringe IV (15:38)
[2024-06-01] MEDS: Acetaminophen 325 MG Tablet 650 MG PO (15:38)
[2024-06-01] MEDS: Heparin 10,000 UNITS/10 ML Vial IV (15:38)
--- NOTE | 2024-06-01 15:58 | CASEMGMT ---
Readmission Note: Index: 05/21-05/26/24. Dx: Acute on Chronic RF, COPD Exacerbation Readmission: 05/31/24. Dx: Acute Hypoxic RF From index admission, the pt was discharged home with [facility]. The pt was set up with Palliative care through [facility]. The pt also wears oxygen at home through [employer] (confirmed 3l continuos per Dianne). The pt re-presents [facility] ER with SOB and CP. The pt was admitted to the ICU for further management. This RN CM to pt room at this time. The pt states that the [facility] was able to help care for her at home. Pt states that Palliative has not seen her yet. E-Mail sent to [facility] who stated that the pt is in their system but confirmed that they have not seen the pt yet. Pt states that she attends [facility] for OP HD q TTS. Pt states that [employer] provides this transportation and that the pt has not missed a session. Pt states that she was compliant at home with wearing 3L of oxygen continuously. Pt states that she also picked up her isosorbide Rx and took it as ordered. Pt states that she was unable to f/u with her PCP due to coming back into the hospital. Moving forward, the pt plans to DC home once she is medically ready. The pt is denying SNF needs. Pt states that she would like to continue the C. Pt states that she lives with her Grandkids who will be able to drive the pt home at time of DC. Pt states that she feels safe with this plan for now and denies further questions or concerns. CM to follow.
[2024-06-01] MEDS: Nitroglycerin Oint 1 INCH PACKET TD ×2 (16:10→20:37)
--- NOTE | 2024-06-01 17:00 | EX.PCM.CON.G ---
HPI Consult Data Date of Consult: 06/01/24 HPI Narrative Reason for Consultation: Anemia HPI Narrative: NATALI KINSEY, is a 68 F who presents to the ED with worsening cough shortness of breath. She was also complaining of chest pain. She was discovered to have a very elevated troponin level along with acute on chronic renal failure and a severe anemia. She has a history of chronically elevated liver function tests secondary to chronic viral hepatitis C she has never been diagnosed with cirrhosis that I am aware of at this time. She is never been treated for hepatitis C. She also has a past medical history of ESRD on hemodialysis Friday, , Friday schedule. She also has extensive cardiovascular history including a history of CVA. She is currently being seen by cardiology and she is getting medical management for non-ST segment elevation ID. I was asked to see her due to her profound anemia. She says that she has been dealing with her chronic anemia for a long time. She has received multiple iron transfusions along with blood transfusions in the past. She also has a history of poorly controlled diabetes mellitus. She has no family history of anemia. I saw her back in 09/03/2021 for acute blood loss anemia. She underwent colonoscopy at the time and the prep was not perfect so the entire colon was not completely evaluated. However no large abnormalities or blood loss was seen. Her upper endoscopy did show a hiatal hernia with some Bridger's erosions and signs of portal gastropathy which could lead to GI blood loss. This was thought to be secondary to chronic liver disease. She was previously on BiPAP but currently now is doing a little bit better and maintaining oxygen saturation only on 3 L of oxygen. I was called to see her because of worsening anemia. [facility] Medical History (Updated 06/01/24 @ 10:[address] Frantz Gregorio MD) CAD (coronary artery disease) (HFpEF) heart failure with preserved ejection fraction Acute respiratory failure with hypoxia Alcohol use Wears dentures Shingles outbreak Arthritis Dietary restriction Normal Holter exam History of echocardiogram Cardiology follow-up encounter History of heart attack CHF (congestive heart failure) Severe protein-calorie malnutrition Malnutrition of moderate degree COPD (chronic obstructive pulmonary disease) Substance abuse Dialysis patient GI bleed Hepatitis Hypertension History of hypertension Chronic progressive renal failure TIA (transient ischemic attack) End-stage renal disease on hemodialysis PONV (postoperative nausea and vomiting) Post-menopausal Wears glasses Ambulates with cane High cholesterol Easy bruising Edentulous Gastric reflux On home oxygen therapy Former smoker Shortness of breath on exertion Leg cramps Hyponatremia ESRD (end stage renal disease) on dialysis Acute and chronic respiratory failure with hypoxia Chronic kidney disease, stage V requiring chronic dialysis Cardiac dysrhythmia, unspecified NSTEMI, initial episode of care Anemia Asthma Stroke Diabetes Rheumatoid arthritis Type II diabetes mellitus Hypertension Home Medications ?Medication ?Instructions ?Recorded ?Last Taken ?Type calcium acetate(phosphat bind) 667 2 cap PO TID SUPPLEMENT 03/07/22 05/09/24 History mg capsule cinacalcet 30 mg tablet 30 mg PO DAILY DIALYSIS 09/19/22 05/09/24 History sevelamer carbonate 800 mg tablet 800 mg PO TID DIALYSIS 01/28/23 05/09/24 History diclofenac sodium 1 % topical gel 2 g topical ONCE PRN ARTHRITIS 10/03/23 11/24/23 History (Voltaren Arthritis Pain) amlodipine 10 mg tablet 10 mg PO DAILY BLOOD PRESSURE #7 02/13/24 05/10/24 Rx tabs aspirin 81 mg tablet,delayed See Rx Instructions .Route 05/20/24 Unknown Rx release .COMPLEX #90 tabs atorvastatin 80 mg tablet 80 mg PO QHS CHOLESTEROL #30 tabs 05/20/24 Unknown Rx carvedilol 12.5 mg tablet 12.5 mg PO BID 05/20/24 Unknown History clopidogrel 75 mg tablet 75 mg PO DAILY BLOOD THINNER #30 05/20/24 Unknown Rx tabs guaifenesin 1,200 mg tablet, 1,200 mg PO BID 7 days #14 tabs 05/20/24 Unknown Rx extended release 12 hr (Mucus Relief ER) hydralazine 25 mg tablet 25 mg PO TID 05/20/24 Unknown History multivitamin with folic acid 400 1 tab PO DAILY 05/20/24 Unknown History mcg tablet (Daily-Caron (with folic acid)) isosorbide dinitrate 20 mg tablet 20 mg PO BID #30 tabs 05/26/24 Unknown Rx ferrous sulfate 325 mg (65 mg 325 mg PO DAILY SUPPLEMENT #90 tabs 05/28/24 Unknown Rx iron) tablet (FeroSul) Allergy/AdvReac Type Severity Reaction Status Date / Time ceftriaxone Allergy Severe Rash Verified 05/20/24 21:54 vancomycin Allergy Unknown Rash Verified 05/20/24 21:54 Penicillins Allergy Swelling Verified 05/20/24 21:54 oxycodone HCl (From Percocet) AdvReac Intermediate Itching Verified 05/20/24 21:54 Family History Mother Hypertension Emphysema/COPD Sister Hypertension Surgical History S/P arteriovenous (AV) fistula creation History of arteriovenostomy for renal dialysis History of surgery History of eye surgery knee scope H/O: hysterectomy Social History Smoking Status: Former smoker alcohol intake: current details: 1 per week substance use type: does not use what type of physical activity do you participate in: none ROS Constitutional Constitutional: Reports fatigue, malaise and weakness; Denies anorexia, chills or fever(s) Eyes Eyes: Denies change in vision ENT HEENT: Denies dysphagia, epistaxis, headache(s), nasal discharge or sore throat Cardiovascular Cardiovascular: Reports chest pain, dyspnea on exertion and orthopnea; Denies edema, lightheadedness, palpitations, paroxysmal nocturnal dyspnea, rapid heart rate or syncope Respiratory/Chest Respiratory/Chest: Reports cough, dyspnea, shortness of breath at rest and shortness of breath with exertion; Denies excessive phlegm production, hemoptysis, productive cough or wheezing Gastrointestinal Gastrointestinal: Denies abdominal pain, constipation, diarrhea, nausea or vomiting Genitourinary Genitourinary: Denies burning urination, dysuria or hematuria Musculoskeletal Musculoskeletal: Denies back pain Neurologic Neurologic: Denies confusion, dizziness, focal weakness, headache(s) or numbness Psychiatric Psychiatric: Denies anxiety or depression Physical Exam Narrative Alert awake oriented x 3 no obvious distress no pallor no icterus no JVD s1s2 no murmurs lungs rales abdomen soft no organomegaly no edema no cyanosis Lab / Micro Data 06/01/24 07:40 06/01/24 04:00 Labs: Laboratory Results - last 24 hr 06/01/24 04:00: WBC 7.5, RBC 2.06 L, Hgb 6.1 L, Hct 18.8 L, MCV 91.3, MCH 29.6, MCHC 32.4 D, RDW Std Deviation 48.5 H, RDW Coeff of Dottie 14.6, Plt Count 115 L, MPV 9.3, Immature Gran % (Auto) 1.700 H, Neut % (Auto) 79.1 H, Lymph % (Auto) 11.0 L, [place]t % (Auto) 7.4, Eos % (Auto) 0.5, Baso % (Auto) 0.3, Absolute Neuts (auto) 5.9, Absolute Lymphs (auto) 0.82 L, Nucleated RBC % 0.7, Sodium 136, Potassium 4.1, Chloride 95 L, Carbon Dioxide 33.0 H, Anion Gap 8, BUN 43 H, Creatinine 8.10 H*, Estim Creat Clear Calc 6.42, Est GFR (MDRD) Af Amer 6 L, Est GFR (MDRD) Non-Af 5 L, BUN/Creatinine Ratio 5.3 L, Glucose 97, Calcium 7.0 L 06/01/24 05:11: Iron 75, TIBC 174 L, Iron Saturation 43.1, Ferritin 2935 H, Blood Type A POSITIVE, Antibody Screen NEGATIVE, Crossmatch See Detail 06/01/24 07:40: Hgb 6.4 L, Hct 19.8 L Micro: Microbiology 05/31/24 16:15 Urine Catheter - Catheter Legionella Antigen - Final 05/31/24 16:15 Urine Catheter - Catheter Streptococcus pneumoniae Antigen (M - Final Rhythm Strip Rhythm Strip: Sinus Rhythm Assessment & Plan Assessment/Plan (1) Abdominal pain: PLAN: Patient originally had some abdominal pain but it was thought to possibly be secondary to hemodialysis. Patient at this time does not have abdominal pain after she has been transfused packed red blood cells. Differential diagnosis for her abdominal pain could be intestinal angina, peptic ulcer disease, portal gastropathy associated with chronic hepatitis C versus gastroparesis secondary to uncontrolled diabetes. She should undergo an upper endoscopy to evaluate upper GI tract. Recommend Protonix 40 mg once a day due to her renal failure. (2) Anemia: PLAN: Patient has a normocytic anemia with low iron indices. She also had receive iron transfusions and had a ferritin of 800 and has drifted down to 249. That is consistent with an iron deficiency anemia. I suspect she also has a concomitant macrocytic anemia secondary to chronic hepatitis C. She should undergo evaluation of her upper and lower GI tract along with her small bowel if her upper endoscopy is negative. Charges/Coding Visit Charges Inpatient E&M: 08952 Init Hosp L3
[2024-06-01] MEDS: guaiFENesin 1,200 MG Tablet 1200 MG PO (19:55)
[2024-06-01] MEDS: Atorvastatin Calcium 80 MG Tablet PO (19:55)
[2024-06-02] VITALS (20 sets, daily range): BP systolic 105–157; BP diastolic 42–70; PULSE 65–102; RESP 12–26; TEMP 36.6–37.2; O2SAT 94–100; BMI 30.7
[2024-06-02] MEDS: Ipratropium/Albuterol Sulfate 3 ML AMPUL.NEB INHALATION ×3 (01:28→19:38)
[2024-06-02] MEDS: Acetaminophen 325 MG Tablet 650 MG PO ×2 (02:01→20:51)
[2024-06-02 05:40] LABS: Absolute Lymphocyte Count 0.82 X10^3/uL (0.83-4.51); Absolute Neutrophil Count 7.6 X10^3/uL (2.0-7.7); Basophil# 0.03 X10^3/uL; Basophil% 0.3 % (0-1); Eosinophil# 0.39 X10^3/uL; Eosinophils% 4.1 % (0-5); Hematocrit 26.6 % (37-47); Hemoglobin 8.7 g/dL (12.0-15.0); Lymphocyte # 0.82 X10^3/ul (0.83-4.51); Lymphocyte % 8.7 % (19-41); Mean Corp Hgb Conc 32.7 g/dL (32-36); Mean Corpuscular Hgb 29.7 pg (27.0-32.0); Mean Corpuscular Volume 90.8 fL (81-99); Mean Platelet Vol. 9.2 fl (6.2-12.0); Monocyte# 0.47 X10^3/uL; NRBC Flagged by Analyzer 0.8 % (0-5); Neutrophil # 7.56 X10^3/uL (2.7-7.7); Platelet Count 112 K/mm3 (150-450); RBC Distribution Width CV 15.9 % (11.6-14.6); RBC Distribution Width SD 51.5 fl (35.1-43.9); Red Blood Count 2.93 M/mm3 (4.2-5.4); White Blood Count 9.5 K/mm3 (4.4-11.0)
[2024-06-02 05:49] LABS: International Normalized Ratio 1.3; Prothrombin Time (Protime)PT. 15.9 SECONDS (11.7-14.9)
[2024-06-02 05:50] LABS: Partial Thromboplast Time 29.8 Seconds (24.1-36.2)
[2024-06-02 06:08] LABS: Alanine Aminotransfer ALT/SGPT 46 U/L (13-56); Anion Gap 7 (5-15); BUN 31 mg/dL (7-18); Calcium,Total 7.9 mg/dL (8.5-10.1); Chloride 99 mmol/L (98-107); EST Glomerular Filtration Rate 7 mL/min (>60); Est Glom Filt Rate - Afr Amer 9 mL/min (>60); Glucose 80 mg/dL (74-106); Potassium 3.8 mmol/L (3.5-5.1); Sodium Level 135 mmol/L (136-145)
[2024-06-02 06:12] LABS: AST(SGOT) 52 U/L (15-37)
[2024-06-02] MEDS: Pantoprazole Sodium 40 MG in 0.9% Normal Saline (100mL MB+) 100 ML 330 MG IV ×2 (07:46→20:51)
--- NOTE | 2024-06-02 10:08 | PCM.PN.REN ---
Subjective Subjective Resting in bed. Denies any complaints today. Patient states she did not have any cramping with dialysis yesterday but was nauseated with emesis afterwards. Objective Data Objective Data Vital Signs: Vital Signs Temp Pulse Resp BP Pulse Ox O2 Del Method O2 Flow Rate 97.8 F 65 17 126/44 H 99 Bi-pap 2 06/02/24 07:51 06/02/24 07:51 06/02/24 07:51 06/02/24 07:51 06/02/24 07:51 06/02/24 07:51 06/02/24 02:00 FiO2 25 06/02/24 07:51 Oxygen Flow Rate (L/min) 2 Oxygen Delivery Method Bi-pap Weight: 73.7 kg Body Mass Index (BMI) 30.7 Intake & Output: Intake and Output for Last 24 Hours 05/31/24 06/01/24 06/02/24 23:59 23:59 23:59 Intake Total 177.65 / 177.65 260.35 / 410.35 150 / 150 Output Total 50 / 50 2955 / 3005 50 / 50 Balance 127.65 / 127.65 -2694.65 / -2594.65 100 / 100 Lab / Micro Data 06/02/24 05:09 06/02/24 05:09 Labs: Laboratory Results - last 24 hr 06/01/24 05:11: Iron 75, TIBC 174 L, Iron Saturation 43.1, Ferritin 2935 H, Blood Type A POSITIVE, Antibody Screen NEGATIVE, Crossmatch See Detail 06/02/24 05:09: WBC 9.5, RBC 2.93 L, Hgb 8.7 L, Hct 26.6 L, MCV 90.8, MCH 29.7, MCHC 32.7, RDW Std Deviation 51.5 H, RDW Coeff of Dottie 15.9 H, Plt Count 112 L, MPV 9.2, Immature Gran % (Auto) 1.900 H, Neut % (Auto) 80.0 H, Lymph % (Auto) 8.7 L, [place] % (Auto) 5.0, Eos % (Auto) 4.1, Baso % (Auto) 0.3, Absolute Neuts (auto) 7.6, Absolute Lymphs (auto) 0.82 L, Nucleated RBC % 0.8, PT 15.9 H, INR 1.3, APTT 29.8, Sodium 135 L, Potassium 3.8, Chloride 99, Carbon Dioxide 29.0, Anion Gap 7, BUN 31 H, Creatinine 6.20 H, Estim Creat Clear Calc 8.20, Est GFR (MDRD) Af Amer 9 L, Est GFR (MDRD) Non-Af 7 L, BUN/Creatinine Ratio 5.0 L, Glucose 80, Calcium 7.9 L, AST 52 H, ALT 46 Micro: Microbiology 05/31/24 16:15 Urine Catheter - Catheter Legionella Antigen - Final 05/31/24 16:15 Urine Catheter - Catheter Streptococcus pneumoniae Antigen (M - Final Rhythm Strip Rhythm Strip: Sinus Rhythm Physical Exam Narrative Alert awake oriented x 3 no obvious distress s1s2 no murmurs lungs rales abdomen soft no edema Tunneled dialysis catheter dressing clean, dry and intact Assessment & Plan Assessment/Plan (1) End stage renal disease: PLAN: -ESRD; on hemodialysis Friday, , Friday. Patient tolerated hemodialysis yesterday with no cramping. 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 Will plan for next dialysis tomorrow and attempt fluid removal as patient/blood pressure will tolerate. - Anemia. Hemoglobin improved 8.7, status post PRBC. Suspected GI bleed. Gastroenterology on consult. To undergo upper GI today. -Acute on chronic hypoxic respiratory failure; oxygenation improved now off BiPAP and on oxygen via nasal cannula. Attempt to remove fluid with dialysis as patient can tolerate.
[2024-06-02] MEDS: levoFLOXacin IV 500 MG/100 ML BAG 100 MG IV (10:32)
[2024-06-02] MEDS: 0.9% Normal Saline (1000mL) 1,000 ML 15 ML IV (11:25)
--- NOTE | 2024-06-02 11:27 | PN_ITS ---
Subjective Subjective Patient seen and examined. She had no active complaints. She is feeling better today. She was on BiPAP as it was mainly for comfort. Review of systems otherwise negative. She is due for EGD today. She was weaned off of BiPAP to 2 L of oxygen. She has remained hemodynamically stable. Objective Data Objective Data Vital Signs: Vital Signs Temp Pulse Resp BP Pulse Ox O2 Del Method O2 Flow Rate 98.4 F 70 18 131/44 H 99 Nasal Cannula 2 06/02/24 10:37 06/02/24 10:37 06/02/24 10:37 06/02/24 10:37 06/02/24 10:37 06/02/24 10:37 06/02/24 10:37 FiO2 25 06/02/24 07:51 Oxygen Flow Rate (L/min) 2 Oxygen Delivery Method Nasal Cannula Weight: 162 lb 7.691 oz Body Mass Index (BMI) 30.7 Intake & Output: Intake and Output for Last 24 Hours 05/31/24 06/01/24 06/02/24 23:59 23:59 23:59 Intake Total 177.65 / 177.65 260.35 / 410.35 260 / 260 Output Total 50 / 50 2955 / 3005 50 / 50 Balance 127.65 / 127.65 -2694.65 / -2594.65 210 / 210 Lab / Micro Data 06/02/24 05:09 06/02/24 05:09 Labs: Laboratory Results - last 24 hr 06/01/24 05:11: Blood Type A POSITIVE, Antibody Screen NEGATIVE, Crossmatch See Detail 06/02/24 05:09: WBC 9.5, RBC 2.93 L, Hgb 8.7 L, Hct 26.6 L, MCV 90.8, MCH 29.7, MCHC 32.7, RDW Std Deviation 51.5 H, RDW Coeff of Dottie 15.9 H, Plt Count 112 L, MPV 9.2, Immature Gran % (Auto) 1.900 H, Neut % (Auto) 80.0 H, Lymph % (Auto) 8.7 L, [place] % (Auto) 5.0, Eos % (Auto) 4.1, Baso % (Auto) 0.3, Absolute Neuts (auto) 7.6, Absolute Lymphs (auto) 0.82 L, Nucleated RBC % 0.8, PT 15.9 H, INR 1.3, APTT 29.8, Sodium 135 L, Potassium 3.8, Chloride 99, Carbon Dioxide 29.0, Anion Gap 7, BUN 31 H, Creatinine 6.20 H, Estim Creat Clear Calc 8.20, Est GFR (MDRD) Af Amer 9 L, Est GFR (MDRD) Non-Af 7 L, BUN/Creatinine Ratio 5.0 L, Glucose 80, Calcium 7.9 L, AST 52 H, ALT 46 Micro: Microbiology 05/31/24 16:15 Urine Catheter - Catheter Legionella Antigen - Final 05/31/24 16:15 Urine Catheter - Catheter Streptococcus pneumoniae Antigen (M - Final Rhythm Strip Rhythm Strip: Sinus Rhythm Physical Exam Const alert and oriented x3 Constitutional Narrative: frail, weak General Appearance: cooperative HEENT normocephalic and head/scalp atraumatic Eyes PERRL, EOMs intact bilaterally and conjunctivae normal Neck no lymphadenopathy, supple and no JVD Lymph Lymphatic: no lymphadenopathy noted Resp Resp Narrative: moderately diminished breath sounds bibasally, minimal crackles. ON 2L of oxygen after being taken off BIPAP. Cardio regular rate, regular rhythm, S1 normal heart sound, S2 normal heart sound and no murmurs GI normal to inspection, nondistended, normoactive bowel sounds, soft to palpation, non-tender and non-distended Extremity normal to inspection, full ROM, normal capillary refill and no clubbing, cyanosis or edema Extremity Narrative: dialysis catheter in chest General Extremity: no tenderness to palpation of joints or extremities Skin General Skin Exam: no breakdown Neuro oriented x3, CN's II-XII intact bilaterally, moves all extremities and no focal motor deficits Sensorium / Orientation: awake and alert Motor Exam: strength 5/5 throughout and general weakness Psych thought process normal, cooperative and affect normal Psych Narrative: frail Appearance: appropriate Assessment & Plan Assessment/Plan (1) Pulmonary edema: (2) Chest pressure: (3) Subendocardial ischemia: PLAN: Plan #Acute on chronic hypoxic respiratory failure * Due to probable fluid overload. Infection is also a concern as her WBC is elevated and chest x-ray did show evidence of possible fluid overload versus pneumonia. * She denies any productive cough. She denies any fever or chills. * Troponins are elevated but her troponins are chronically elevated. EKG however did show evidence of some subendocardial injury. * now off BIPAP, on 2L of oxygen * Already on aspirin also on Imdur. Patient has ESRD and is on dialysis T/T/S. She does not really make urine. Can therefore not diurese. * Started on IV levofloxacin. Urine for strep and Legionella. Sputum cultures as well as blood cultures. * Breathing treatments with bronchodilators. Titrate oxygen to maintain saturation above 90%. * #Acute on chronic anemia * Hemoglobin was down to 6.1 yesterday and on recheck was 6.4. * She denies any melena stools or hematemesis. Stool for occult blood ordered as well as iron panel. * Patient started on IV pantoprazole 40 mg twice daily. * GI on board. For EGD today. * #ESRD: On hemodialysis Tuesdays and Saturdays. nephrology on board. On sevelamer and Cinacalcet. #Chest pain * She did have elevated troponins but her troponin is always elevated. I am hard pressed to think that his symptoms are due to non-STEMI. EKG did show some subendocardial injury. * weaned off nitro drip today. * put back on PO imdur * Cardiology on board. Per cardiology her symptoms are likely due to demand ischemia. She did have cardiac cath in January 2023 which showed severe triple- vessel CAD per cardiology she is not a candidate for CABG and his second best option would be a high risk multivessel PCI probably to the LAD and RCA. * Aspirin and Plavix held this morning due to anemia. Her hemoglobin is down to 6.4. Continue statin * She did have an echo done on 05/21/2024 which showed no regional wall motion abnormalities and showed EF of 55% with mild to moderate eccentric mitral valve insufficiency. * #History of bacteremia: * Noted to have staph bacteremia during her recent admission on May 18, 2024. * Repeat blood cultures from 05/24/2024 were negative. * She was placed on linezolid and completed 9 doses of that and also subsequently received Levaquin. Her white cell count was down to 3.9 on 05/23/2024 and is now up to 14.3. * Been treated with ceftriaxone and azithromycin as above. * #Hypertension: On amlodipine. IV hydralazine as needed. Also on carvedilol and imdur. #Hyperlipidemia: On statin. #DVT prophylaxis: heparin dc'd due to acute on chronic anemia. SCDs. CODE STATUS: Full code Disposition; to be determined based on how she does after the EGD. Charges/Coding Visit Charges Inpatient E&M: 31653 Subs Hosp L2
--- NOTE | 2024-06-02 11:29 | PCM.PRE.AN2 ---
ASA Classification* ASA Classification ASA Classification: 3 Assessment & Plan Anesthesia* Anesthesia Assessment Anesthesia Assessment: Discussed sedation and/or anesthesia options, risks, benefits, and alternatives with patient/parents/legal guardian/POA. Questions invited. The patient/parents/legal guardian/POA seems to understand and agrees to proceed with anesthesia plan. Reviewed the physical assessment, medical history, allergy history and patient home medications list prior to surgery/procedure/anesthetic and documented any changes. Performed airway and anesthesia risk assessments. Anesthesia Type Anesthesia Type: MAC Anesthesia Focused Assessment* Temperature: 98.4 F Pulse Rate: 70 Blood Pressure: 131/44 Respiratory Rate: 18 Pulse Ox: 99 Fraction of Inspired Oxygen (FIO2): 25 Airway Assessment Mouth opens: >3 cm Mallampati Score: II Focused Labs Anesthesia Preop lab: CBC WBC 9.5 K/mm3 (4.4-11.0) 06/02/24 05:09 RBC 2.93 M/mm3 (4.2-5.4) L 06/02/24 05:09 Hgb 8.7 g/dL (12.0-15.0) L 06/02/24 05:09 Hct 26.6 % (37-47) L 06/02/24 05:09 Plt Count 112 K/mm3 (150-450) L 06/02/24 05:09 CHEMISTRY Potassium 3.8 mmol/L (3.5-5.1) 06/02/24 05:09 Sodium 135 mmol/L (136-145) L 06/02/24 05:09 Magnesium 2.1 mg/dL (1.6-2.6) 05/21/24 00:28 Phosphorus 6.5 mg/dL (2.5-4.9) H 05/18/24 03:58 BUN 31 mg/dL (7-18) H 06/02/24 05:09 Creatinine 6.20 mg/dL (0.55-1.02) H 06/02/24 05:09 Glucose 80 mg/dL (74-106) 06/02/24 05:09 POC Glucose 196 mg/dL (74-106) H 05/26/24 16:41 TSH 0.80 uIU/mL (0.358-3.74) 02/26/23 05:00 COAG PT 15.9 SECONDS (11.7-14.9) H 06/02/24 05:09 Pre-Assessment Diagnosis/Proposed Procedure Planned Operative Procedure(s): EGD Anesthesia History Anesthesia History - clinical research associate: Anesthesia History - clinical research associate Hx Hospitalization Yes: 02/202305/04/24 15:05 Any Problems With Anesthesia No 06/01/24 22:37 Cholinesterase deficiency No 06/01/24 22:37 You/Your Family Experience No 06/01/24 22:37 fever (hyperthermia) with Relationship Recent Exposure to Contagious No 06/01/24 22:37 Disease Does patient have nerve No 06/01/24 22:37 stimulator Patient instructed to have device shut off --Does patient have Pacemaker No 06/02/24 10:39 or ICD? When Was Last Pacemaker Check QUESTION #4 FULL TEXT: You/Your Family Experience fever (hyperthermia) with Anesthesia Last Oral Intake Last Oral intake: Last Oral Intake NPO since 00:00 06/02/24 10:39 Meds taken in AM with sips of No 06/02/24 10:39 water? Meds patient instructed to take am of surgery PONV PONV - clinical research associate: PONV - clinical research associate Female HX of Motion Sickness HX of N/V After Surgery Non-Smoker Duration of Surgery greater than 60 minutes Number of Risk Factors PONV Score Height & Weight Height & Weight: Anesthesia: Height & Weight Height 5 ft 1 in 06/02/24 10:39 Weight: 73.7 kg 06/02/24 10:39 Body Mass Index (BMI) 30.7 06/02/24 10:39 Respiratory Assessment Respiratory Assessment - clinical research associate: Respiratory Tract Infection Hx - clinical research associate Hx Respiratory Tract Infection No 06/01/24 22:37 STOP Sleep Apnea STOP Sleep Apnea - clinical research associate: STOP Sleep Apnea - clinical research associate Hx Hypertension Yes 06/01/24 16:43 Hx Sleep Apnea No 05/31/24 13:56 CPAP No 05/04/24 15:05 BIPAP No 05/04/24 15:05 Do you snore loudly (louder No 05/31/24 13:56 than talking or can be heard Do you often feel tired/ No 05/31/24 13:56 fatigued/ sleepy during daytime? Has anyone observed you stop No 05/31/24 13:56 breathing during sleep? STOP Results Negative 05/31/24 13:56 QUESTION #5 FULL TEXT : Do you snore loudly (louder than talking or can be heard through closed doors)? Tobacco Use History Tobacco Use History - clinical research associate: Tobacco Use History - clinical research associate Tobacco Use Non-smoker 03/17/24 09:24 Smoking Status Former smoker 05/31/24 13:56 Hx Tobacco Use No 05/31/24 13:56 Years Smoking Packs Smoked per Day Smoking Cessation Date was Yes - quit smoking within 15 05/31/24 13:56 within the last 15 years years Hx Smoking Cessation Date 10/19/18 05/31/24 13:56 Hx Smoking Cessation No 05/31/24 13:56 Counseling Hematologic Medial History Hematologic Hx - clinical research associate: Hematologic Medical Hx - external grinder tender Hx of Blood Transfusion No 05/31/24 13:56 Hx of Transfusion in last 3 No 05/31/24 13:56 Months Date of Last Transfusion (if within last 3 months) Ever experience any problems No 05/31/24 13:56 with transfusion(s)? Specify any problems Hx of Preganancy in last 3 N/A 05/31/24 13:56 Months Nurse Filling Out Transfusion ANORRIS 05/31/24 13:56 & Questions: Date: 05/31/24 05/31/24 13:56 Time: 14:01 05/31/24 13:56 Patient unable to answer at this time (ie. confused, unrespo /Reproduction History /Reproductive History - clinical research associate: /Reproductive Hx- clinical research associate Hx Now No 06/01/24 22:37 Gestational Age (in weeks): EDC: Hx Hx Para Hx Section SAB No 06/01/24 22:37 Active Medications Active Medications: Current Medications Generic Name Dose Route Start Last Admin Trade Name Freq PRN Reason Stop Dose Admin Acetaminophen 650 mg 05/31/24 15:44 06/02/24 02:01 Acetaminophen 325 Mg Tablet PO 650 mg Q6H PRN PRN Administration Pain 1-10 Or Fever >100.7 Albuterol/Ipratropium 3 ml 05/31/24 16:45 06/02/24 06:52 Ipratropium/Albuterol Sulfate 3 Ml Ampul.Neb INHALATION 3 ml Q6H.RT [facility]AYRON Administration Amlodipine Besylate 10 mg 06/01/24 10:00 06/02/24 07:38 Amlodipine 10 Mg Tablet PO Not Given DAILY [facility] Protocol Atorvastatin Calcium 80 mg 05/31/24 22:00 06/01/24 19:55 Atorvastatin Calcium 80 Mg Tablet PO 80 mg QHS [facility] Administration Calcium Acetate 1,334 mg 05/31/24 17:00 06/02/24 07:38 Calcium Acetate 667 Mg Capsule PO Not Given TIDCM [facility] Carvedilol 12.5 mg 05/31/24 22:00 06/02/24 07:39 Carvedilol 12.5 Mg Tablet PO Not Given BID [facility] Protocol Cinacalcet 30 mg 06/01/24 10:00 06/02/24 07:38 Cinacalcet Hcl 30 Mg Tablet PO Not Given DAILY [facility] Ferrous Sulfate 325 mg 06/01/24 08:00 06/02/24 07:38 Ferrous Sulfate 325 Mg Tablet PO Not Given DAILYCM [facility] Guaifenesin 1,200 mg 05/31/24 22:00 06/02/24 07:38 Guaifenesin 1,200 Mg Tablet PO Not Given BID [facility] Hydralazine HCl 25 mg 05/31/24 22:00 06/02/24 05:21 Hydralazine 25 Mg Tablet PO Not Given TID [facility] Protocol Sodium Chloride 250 mls @ 15 mls/hr 05/31/24 13:59 IV .[id number] PRN Additional IVPB Infusion Sodium Chloride 250 mls @ 15 mls/hr 05/31/24 13:59 IV .[id number] PRN Saline Flush Levofloxacin 500 mg in 100 mls @ 100 mls/hr 06/02/24 10:00 06/02/24 10:32 Levaquin Iv IV 100 mls/hr Q48 [facility] Administration Pantoprazole Sodium 40 mg/ 110 mls @ 330 mls/hr 06/01/24 10:00 06/02/24 10:51 Sodium Chloride IV Infused Q12 [facility] Infusion Sodium Chloride 1,000 mls @ 15 mls/hr 06/02/24 11:25 IV .Q48H [facility] Multivitamins 1 tablet 06/01/24 08:00 06/02/24 07:38 Multivitamins,Therapeutic [facility] Nitroglycerin 0.4 mg 05/31/24 15:44 Nitroglycerin (Inpatient Use) 0.4 Mg Tab.Subl SL Q5M PRN CARDIAC/CHEST PAIN Nitroglycerin 1 inch 06/01/24 14:00 06/02/24 05:21 Nitroglycerin Oint 1 Inch Packet TD Not Given Q8 [facility] Protocol Ondansetron HCl 4 mg 05/31/24 15:44 06/01/24 13:53 Ondansetron 4 Mg/2 Ml Vial IV 4 mg Q8H PRN PRN Administration NAUSEA/VOMITING Sevelamer Carbonate 800 mg 05/31/24 17:00 06/02/24 07:38 Sevelamer Carbonate 800 Mg Tablet PO Not Given TIDCM [facility] Sodium Chloride 10 - 40 ml 05/31/24 13:59 06/01/24 15:38 0.9% Saline Lock 10 Ml Syringe IV 20 ml UD PRN Administration SALINE FLUSH PFSH Medical History CAD (coronary artery disease) (HFpEF) heart failure with preserved ejection fraction Acute respiratory failure with hypoxia Alcohol use Wears dentures Shingles outbreak Arthritis Dietary restriction Normal Holter exam History of echocardiogram Cardiology follow-up encounter History of heart attack CHF (congestive heart failure) Severe protein-calorie malnutrition Malnutrition of moderate degree COPD (chronic obstructive pulmonary disease) Substance abuse Dialysis patient GI bleed Hepatitis Hypertension History of hypertension Chronic progressive renal failure TIA (transient ischemic attack) End-stage renal disease on hemodialysis PONV (postoperative nausea and vomiting) Post-menopausal Wears glasses Ambulates with cane High cholesterol Easy bruising Edentulous Gastric reflux On home oxygen therapy Former smoker Shortness of breath on exertion Leg cramps Hyponatremia ESRD (end stage renal disease) on dialysis Acute and chronic respiratory failure with hypoxia Chronic kidney disease, stage V requiring chronic dialysis Cardiac dysrhythmia, unspecified NSTEMI, initial episode of care Anemia Asthma Stroke Diabetes Rheumatoid arthritis Type II diabetes mellitus Hypertension Home Medications ?Medication ?Instructions ?Recorded ?Last Taken ?Type calcium acetate(phosphat bind) 667 2 cap PO TID SUPPLEMENT 03/07/22 05/09/24 History mg capsule cinacalcet 30 mg tablet 30 mg PO DAILY DIALYSIS 09/19/22 05/09/24 History sevelamer carbonate 800 mg tablet 800 mg PO TID DIALYSIS 01/28/23 05/09/24 History diclofenac sodium 1 % topical gel 2 g topical ONCE PRN ARTHRITIS 10/03/23 11/24/23 History (Voltaren Arthritis Pain) amlodipine 10 mg tablet 10 mg PO DAILY BLOOD PRESSURE #7 02/13/24 05/10/24 Rx tabs aspirin 81 mg tablet,delayed See Rx Instructions .Route 05/20/24 Unknown Rx release .COMPLEX #90 tabs atorvastatin 80 mg tablet 80 mg PO QHS CHOLESTEROL #30 tabs 05/20/24 Unknown Rx carvedilol 12.5 mg tablet 12.5 mg PO BID 05/20/24 Unknown History clopidogrel 75 mg tablet 75 mg PO DAILY BLOOD THINNER #30 05/20/24 Unknown Rx tabs guaifenesin 1,200 mg tablet, 1,200 mg PO BID 7 days #14 tabs 05/20/24 Unknown Rx extended release 12 hr (Mucus Relief ER) hydralazine 25 mg tablet 25 mg PO TID 05/20/24 Unknown History multivitamin with folic acid 400 1 tab PO DAILY 05/20/24 Unknown History mcg tablet (Daily-Caron (with folic acid)) isosorbide dinitrate 20 mg tablet 20 mg PO BID #30 tabs 05/26/24 Unknown Rx ferrous sulfate 325 mg (65 mg 325 mg PO DAILY SUPPLEMENT #90 tabs 05/28/24 Unknown Rx iron) tablet (FeroSul) Allergy/AdvReac Type Severity Reaction Status Date / Time ceftriaxone Allergy Severe Rash Verified 05/20/24 21:54 vancomycin Allergy Unknown Rash Verified 05/20/24 21:54 Penicillins Allergy Swelling Verified 05/20/24 21:54 oxycodone HCl (From Percocet) AdvReac Intermediate Itching Verified 05/20/24 21:54 Family History Mother Hypertension Emphysema/COPD Sister Hypertension Surgical History S/P arteriovenous (AV) fistula creation History of arteriovenostomy for renal dialysis History of surgery History of eye surgery knee scope H/O: hysterectomy Social History Smoking Status: Former smoker alcohol intake: current details: 1 per week substance use type: does not use what type of physical activity do you participate in: none Review of Systems (Anesthesia) ROS Narrative System reviewed and no additional complaints, except as documented.
--- NOTE | 2024-06-02 12:26 | PCM.PN.CARD ---
Subjective Subjective Feels better. Denies any complaints. Objective Data Vital Signs: Vital Signs Temp Pulse Resp BP Pulse Ox O2 Del Method O2 Flow Rate 98.4 F 70 18 131/44 H 99 Nasal Cannula 2 06/02/24 11:29 06/02/24 11:29 06/02/24 11:29 06/02/24 11:29 06/02/24 11:29 06/02/24 10:37 06/02/24 11:29 FiO2 25 06/02/24 11:29 Oxygen Flow Rate (L/min) 2 Oxygen Delivery Method Nasal Cannula Weight: 162 lb 7.691 oz Body Mass Index (BMI) 30.7 Intake & Output: Intake and Output for Last 24 Hours 05/31/24 06/01/24 06/02/24 23:59 23:59 23:59 Intake Total 177.65 / 177.65 260.35 / 410.35 360 / 360 Output Total 50 / 50 2955 / 3005 50 / 50 Balance 127.65 / 127.65 -2694.65 / -2594.65 310 / 310 Lab / Micro Data 06/02/24 05:09 06/02/24 05:09 Labs: Laboratory Results - last 24 hr 06/01/24 05:11: Blood Type A POSITIVE, Antibody Screen NEGATIVE, Crossmatch See Detail 06/02/24 05:09: WBC 9.5, RBC 2.93 L, Hgb 8.7 L, Hct 26.6 L, MCV 90.8, MCH 29.7, MCHC 32.7, RDW Std Deviation 51.5 H, RDW Coeff of Dottie 15.9 H, Plt Count 112 L, MPV 9.2, Immature Gran % (Auto) 1.900 H, Neut % (Auto) 80.0 H, Lymph % (Auto) 8.7 L, [place] % (Auto) 5.0, Eos % (Auto) 4.1, Baso % (Auto) 0.3, Absolute Neuts (auto) 7.6, Absolute Lymphs (auto) 0.82 L, Nucleated RBC % 0.8, PT 15.9 H, INR 1.3, APTT 29.8, Sodium 135 L, Potassium 3.8, Chloride 99, Carbon Dioxide 29.0, Anion Gap 7, BUN 31 H, Creatinine 6.20 H, Estim Creat Clear Calc 8.20, Est GFR (MDRD) Af Amer 9 L, Est GFR (MDRD) Non-Af 7 L, BUN/Creatinine Ratio 5.0 L, Glucose 80, Calcium 7.9 L, AST 52 H, ALT 46 Rhythm Strip Rhythm Strip: Sinus Rhythm Cardiology Labs/Tests 06/02/24 05:09: WBC 9.5, RBC 2.93 L, Hgb 8.7 L, Hct 26.6 L, MCV 90.8, MCH 29.7, MCHC 32.7, Plt Count 112 L, MPV 9.2, Immature Gran % (Auto) 1.900 H, Neut % (Auto) 80.0 H, Lymph % (Auto) 8.7 L, [place] % (Auto) 5.0, Eos % (Auto) 4.1, Baso % (Auto) 0.3, Absolute Neuts (auto) 7.6, Nucleated RBC % 0.8, PT 15.9 H, INR 1.3, APTT 29.8, Sodium 135 L, Potassium 3.8, Chloride 99, Carbon Dioxide 29.0, Anion Gap 7, BUN 31 H, Creatinine 6.20 H, Est GFR (MDRD) Af Amer 9 L, Est GFR (MDRD) Non-Af 7 L, BUN/Creatinine Ratio 5.0 L, Glucose 80, Calcium 7.9 L Rhythm: EKG: ECHO: Stress Test: Cardiac Cath: PCI: CT Surgery: Holter monitor: EPS: PPM: CXR: Chest CT Scan: Physical Exam Narrative Comfortable. Lying flat in the bed. No apparent distress. Heart sounds 1 and 2 noted. There is a continuous bruit over the left precordium and infraclavicular space with her recently placed AV fistula. Chest examination reveals decreased air entry at bases. Alert oriented x 3. No ankle edema noted. Assessment & Plan Assessment/Plan (1) Elevated troponin: PLAN: Patient's troponin on her last admission which was only recently, was more than 9000. This time the troponin are slightly more than 3000. Most likely demand ischemia superimposed upon her history of severe coronary artery disease. See #2 below. (2) CAD (coronary artery disease): PLAN: Patient's previous angiography from January 2023 was reviewed. She has severe triple-vessel calcific coronary artery disease. Ideally that should be treated with coronary artery bypass graft surgery. However I doubt that the patient is a good risk for CABG. The second best option would be high risk multi vessel PCI, probably to the LAD and RCA. She does need a heart team approach towards deciding on the best course of action. In the interim, the patient is on medical management. If further drop in hemoglobin, then we will need to discontinue 1 or both of her antiplatelet agents. (3) (HFpEF) heart failure with preserved ejection fraction: QUALIFIERS: Heart failure chronicity: acute Qualified Code(s): I50.31 - Acute diastolic (congestive) heart failure PLAN: Patient is a dialysis patient. Nephrology consulted. (4) Acute blood loss anemia: PLAN: GI contemplating endoscopy. (5) Hypertension: QUALIFIERS: Hypertension type: primary hypertension Qualified Code(s): I10 - Essential (primary) hypertension PLAN: Beta-blockers, nitrates, calcium channel blockers (6) End stage renal disease: PLAN: On hemodialysis.
--- NOTE | 2024-06-02 13:03 | PCM.POST.ANE ---
Anesthesia: Postop Eval I Current Vital Signs Temperature: 98.2 F Pulse Rate: 74 Blood Pressure: 109/46 Respiratory Rate: 18 Pulse Ox: 96 Oxygen Delivery Method: Room Air Assessment Airway patent: Yes Spontaneous unlabored respirations: Yes Mental status: Asleep nausea: No Vomiting: No Anesthesia Complication: No Fluid Hydration Crystalloid volume administer (ml): 300 Total IV fluid infused: 300 Progress Note Anesthesia document: Postop Eval 1 completed: Yes
--- NOTE | 2024-06-02 13:07 | OP.CCLET_ITS ---
06/02/2024 Prince Cummins Re : Upper GI endoscopy procedure for Aydee hCaidez Dear Dr. Cummins This procedure was performed on Sunday, June 02, 2024. My impressions and recommendations are as follows: Impressions : - Normal esophagus. - Oozing gastric ulcers with a visible vessel. Clips were placed. 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 Treated with a heater probe. - No gross lesions in the duodenal bulb. - No specimens collected. Recommendations : - Return patient to hospital [facility] for ongoing care. - Clear liquid diet today. - The patient is not currently taking anticoagulant or antiplatelet agents. - Use sucralfate tablets 1 gram PO QID indefinitely. - Give Protonix (pantoprazole): initiate therapy with 80 mg IV bolus, then 8 mg/hr IV by continuous infusion today. My findings are described in the full procedure note, which is enclosed. If I can be of further assistance, please feel free to contact me at . Sincerely, Bebeto Trimble, 06/02/2024 1:06:31 PM This report has been signed electronically.
--- NOTE | 2024-06-02 13:07 | OP.EGD_ITS ---
Patient Name: Aydee Chaidez Procedure Date: 06/02/2024 12:35 PM Date of : 1955 Age: 68 Procedure: Upper GI endoscopy Indications: Active gastrointestinal bleeding Providers: Bebeto Trimble DO Medicines: Monitored Anesthesia Care Patient Profile: This is a 68 year old female. Refer to note in patient chart for documentation of history and physical. Patient has symptoms. Complications: No immediate complications. Procedure: Pre-Anesthesia Assessment: - Prior to the procedure, a History and Physical was performed, and patient medications and allergies were reviewed. The patient is competent. The risks and benefits of the procedure and the sedation options and risks were discussed with the patient. All questions were answered and informed consent was obtained. Patient identification and proposed procedure were verified by the physician in the pre-procedure area. Mental Status Examination: alert and oriented. Airway Examination: normal oropharyngeal airway and neck mobility. Respiratory Examination: clear to auscultation. CV Examination: normal. Prophylactic Antibiotics: The patient does not require prophylactic antibiotics. Prior Anticoagulants: The patient has taken no anticoagulant or antiplatelet agents except for NSAID medication. ASA Grade Assessment: III - A patient with severe systemic disease. After reviewing the risks and benefits, the patient was deemed in satisfactory condition to undergo the procedure. The anesthesia plan was to use monitored anesthesia care (MAC). Immediately prior to administration of medications, the patient was re-assessed for adequacy to receive sedatives. The heart rate, respiratory rate, oxygen saturations, blood pressure, adequacy of pulmonary ventilation, and response to care were monitored throughout the procedure. The physical status of the patient was re-assessed after the procedure. After obtaining informed consent, the endoscope was passed under direct vision. Throughout the procedure, the patient's blood pressure, pulse, and oxygen saturations were monitored continuously. The Endoscope was introduced through the mouth, and advanced to the second part of duodenum. The upper GI endoscopy was accomplished without difficulty. The patient tolerated the procedure well. Scope In: 12:43:54 PM Scope Out: 12:56:24 PM Total Procedure Duration Time 0 hours 12 minutes 30 seconds Findings: There was a lot of red blood mixed with melanotic stool seen throughout the colon. Any exact source of the bleeding was not seen. It could be from an upper GI source. The examined esophagus was normal. Three oozing cratered gastric ulcers with a visible vessel were found in the gastric body. The largest lesion was 10 mm in largest dimension. To stop active bleeding, three hemostatic clips were successfully placed. 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 Bleeding had stopped at the end of the procedure. Coagulation for hemostasis using heater probe was successful. Estimated blood loss was minimal. No gross lesions were noted in the duodenal bulb. Impression: - Normal esophagus. - Oozing gastric ulcers with a visible vessel. Clips were placed. 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 Treated with a heater probe. - No gross lesions in the duodenal bulb. - No specimens collected. Recommendation: - Return patient to hospital [facility] for ongoing care. - Clear liquid diet today. - The patient is not currently taking anticoagulant or antiplatelet agents. - Use sucralfate tablets 1 gram PO QID indefinitely. - Give Protonix (pantoprazole): initiate therapy with 80 mg IV bolus, then 8 mg/hr IV by continuous infusion today. Procedure Code(s): --- Professional --- 66854, Esophagogastroduodenoscopy, flexible, transoral; with control of bleeding, any method CPT copyright 2021 [employer]. All rights reserved. The codes documented in this report are preliminary and upon garbage worker review may be revised to meet current compliance requirements. Bebeto Trimble DO 06/02/2024 1:06:31 PM This report has been signed electronically. Number of Addenda: 0 Note Initiated On: 06/02/2024 12:35 PM
--- NOTE | 2024-06-02 13:25 | PCM.POSTANE2 ---
Anesthesia Postop Eval I Sum Postop Eval Completion status Anesthesia document: Postop Eval 1 completed: Yes Anesthesia Postop Eval I Summary Anesthesia Postop Eval I Summary: Anesthesia Postop Eval I: Assessment Summary Airway patent Yes 06/02/24 13:03 [email or web address] Spontaneous unlabored Yes 06/02/24 13:03 [email or web address] respirations Mental status Asleep 06/02/24 13:03 [email or web address] nausea No 06/02/24 13:03 [email or web address] Vomiting No 06/02/24 13:03 [email or web address] Anesthesia Postop Eval I: Fluid Summary Crystalloid volume administer 300 06/02/24 13:03 [email or web address] (ml) Colloids volume administered ( ml) Blood Product volume administered (ml) Total IV fluid infused 300 06/02/24 13:03 [email or web address] Anesthesia Postop Eval I: Summary Notes Anesthesia Complication No 06/02/24 13:03 [email or web address] Anesthesia Complication Comment: Post-operative progress note Anesthesia: Postop Eval II Evaluation Mental status: Awake Pain Level: 0 nausea: No Vomiting: No
[2024-06-02] MEDS: Calcium Acetate 667 MG Capsule 1334 MG PO (18:06)
[2024-06-02] MEDS: SEVELAMER CARBONATE 800 MG TABLET PO (18:06)
[2024-06-02] MEDS: Carvedilol 12.5 MG Tablet PO (20:44)
[2024-06-02] MEDS: guaiFENesin 1,200 MG Tablet 1200 MG PO (20:44)
[2024-06-02] MEDS: hydrALAZINE 25 MG Tablet PO (20:44)
[2024-06-02] MEDS: Nitroglycerin Oint 1 INCH PACKET TD (20:44)
[2024-06-02] MEDS: Atorvastatin Calcium 80 MG Tablet PO (20:44)
[2024-06-03] VITALS (23 sets, daily range): BP systolic 98–221; BP diastolic 40–94; PULSE 64–82; RESP 12–20; TEMP 35.4–37; O2SAT 98–100; BMI 30.6; BMI 29.2
[2024-06-03] MEDS: Ipratropium/Albuterol Sulfate 3 ML AMPUL.NEB INHALATION ×4 (00:01→19:20)
[2024-06-03 06:34] LABS: Absolute Lymphocyte Count 0.69 X10^3/uL (0.83-4.51); Basophil# 0.03 X10^3/uL; Basophil% 0.4 % (0-1); Eosinophil# 0.38 X10^3/uL; Eosinophils% 5.7 % (0-5); Hemoglobin 8.6 g/dL (12.0-15.0); Lymphocyte # 0.69 X10^3/ul (0.83-4.51); Lymphocyte % 10.3 % (19-41); Mean Corp Hgb Conc 33.1 g/dL (32-36); Mean Corpuscular Hgb 30.3 pg (27.0-32.0); Mean Corpuscular Volume 91.5 fL (81-99); Mean Platelet Vol. 9.4 fl (6.2-12.0); Monocyte# 0.42 X10^3/uL; Monocyte% 6.3 % (0-10); NRBC Flagged by Analyzer 0.3 % (0-5); Neutrophil % 75.1 % (47-70); Platelet Count 102 K/mm3 (150-450); RBC Distribution Width CV 15.8 % (11.6-14.6); Red Blood Count 2.84 M/mm3 (4.2-5.4); White Blood Count 6.7 K/mm3 (4.4-11.0)
[2024-06-03 07:16] LABS: Anion Gap 9 (5-15); BUN 42 mg/dL (7-18); BUN/Creat Ratio 5.4 RATIO (10-20); Chloride 99 mmol/L (98-107); Creatinine, Serum 7.76 mg/dL (0.55-1.02); EST Glomerular Filtration Rate 6 mL/min (>60); Est Glom Filt Rate - Afr Amer 7 mL/min (>60); Estimated Creatinine Clearance 6.54 ml/min; Glucose 82 mg/dL (74-106); Potassium 3.8 mmol/L (3.5-5.1); Sodium Level 135 mmol/L (136-145)
[2024-06-03] MEDS: SEVELAMER CARBONATE 800 MG TABLET PO ×2 (09:10→16:46)
[2024-06-03] MEDS: Ferrous Sulfate 325 MG Tablet PO (09:10)
[2024-06-03] MEDS: Cinacalcet HCl 30 MG Tablet PO (09:10)
[2024-06-03] MEDS: Calcium Acetate 667 MG Capsule 1334 MG PO ×2 (09:10→16:44)
[2024-06-03] MEDS: guaiFENesin 1,200 MG Tablet 1200 MG PO ×2 (09:11→21:52)
[2024-06-03] MEDS: Multivitamins,Therapeutic Tablet 1 TABLET PO (09:11)
[2024-06-03] MEDS: Pantoprazole Sodium 40 MG in 0.9% Normal Saline (100mL MB+) 100 ML 330 MG IV (09:39)
--- NOTE | 2024-06-03 11:18 | PN_ITS ---
Subjective Subjective Patient seen and examined. She had no active complaints and was on BIPAP. Review of systems is otherwise negative. She had EGD yesterday which showed normal esophagus and oozing gastric ulcers with a visible vessel; clips were placed and treated with a heater probe. review of systems is otherwise negative. Objective Data Objective Data Vital Signs: Vital Signs Temp Pulse Resp BP Pulse Ox O2 Del Method O2 Flow Rate 98.4 F 75 18 114/40 L 100 Nasal Cannula 2.5 06/03/24 09:18 06/03/24 09:18 06/03/24 09:18 06/03/24 09:18 06/03/24 09:18 06/03/24 10:00 06/03/24 10:00 FiO2 25 06/03/24 07:11 Oxygen Flow Rate (L/min) 2.5 Oxygen Delivery Method Nasal Cannula Weight: 162 lb 0.636 oz Body Mass Index (BMI) 30.6 Intake & Output: Intake and Output for Last 24 Hours 06/01/24 06/02/24 06/03/24 23:59 23:59 23:59 Intake Total 260.35 / 410.35 986.75 / 1086.75 310 / 310 Output Total 2955 / 3005 550 / 550 Balance -2694.65 / -2594.65 436.75 / 536.75 310 / 310 Lab / Micro Data 06/03/24 05:46 06/03/24 05:46 Labs: Laboratory Results - last 24 hr 06/03/24 05:46: WBC 6.7, RBC 2.84 L, Hgb 8.6 L, Hct 26.0 L, MCV 91.5, MCH 30.3, MCHC 33.1, RDW Std Deviation 51.0 H, RDW Coeff of Dottie 15.8 H, Plt Count 102 L, MPV 9.4, Immature Gran % (Auto) 2.200 H, Neut % (Auto) 75.1 H, Lymph % (Auto) 10.3 L, [place] % (Auto) 6.3, Eos % (Auto) 5.7 H, Baso % (Auto) 0.4, Absolute Neuts (auto) 5.0, Absolute Lymphs (auto) 0.69 L, Nucleated RBC % 0.3, Sodium 135 L, Potassium 3.8, Chloride 99, Carbon Dioxide 27.0, Anion Gap 9, BUN 42 H, C reatinine 7.76 H*, Estim Creat Clear Calc 6.54, Est GFR (MDRD) Af Amer 7 L, Est GFR (MDRD) Non-Af 6 L, BUN/Creatinine Ratio 5.4 L, Glucose 82, Calcium 8.0 L Micro: Microbiology 05/31/24 12:20 Blood Culture (Wb) - Right Hand Blood Culture - Preliminary No growth in 48 hours. 05/31/24 16:15 Urine Catheter - Catheter Legionella Antigen - Final 05/31/24 16:15 Urine Catheter - Catheter Streptococcus pneumoniae Antigen (M - Final Rhythm Strip Rhythm Strip: Sinus Rhythm Physical Exam Const alert and oriented x3 Constitutional Narrative: frail, weak General Appearance: cooperative HEENT normocephalic and head/scalp atraumatic Eyes PERRL, EOMs intact bilaterally and conjunctivae normal Neck no lymphadenopathy, supple and no JVD Lymph Lymphatic: no lymphadenopathy noted Resp Resp Narrative: moderately diminished breath sounds bibasally, minimal crackles. ON 2L of oxygen after being taken off BIPAP. Cardio regular rate, regular rhythm, S1 normal heart sound, S2 normal heart sound and no murmurs GI normal to inspection, nondistended, normoactive bowel sounds, soft to palpation, non-tender and non-distended Extremity normal to inspection, full ROM, normal capillary refill and no clubbing, cyanosis or edema Extremity Narrative: dialysis catheter in chest General Extremity: no tenderness to palpation of joints or extremities Skin General Skin Exam: no breakdown Neuro oriented x3, CN's II-XII intact bilaterally, moves all extremities and no focal motor deficits Sensorium / Orientation: awake and alert Motor Exam: strength 5/5 throughout and general weakness Psych thought process normal, cooperative and affect normal Psych Narrative: frail Appearance: appropriate Assessment & Plan Assessment/Plan (1) Pulmonary edema: (2) Chest pressure: (3) Subendocardial ischemia: PLAN: Plan #Acute on chronic hypoxic respiratory failure * Due to probable fluid overload. Infection is also a concern as her WBC is elevated and chest x-ray did show evidence of possible fluid overload versus pneumonia. * She denies any productive cough. She denies any fever or chills. * Troponins are elevated but her troponins are chronically elevated. EKG however did show evidence of some subendocardial injury. * now off BIPAP, on 2.5L of oxygen * Already on aspirin also on Imdur. Patient has ESRD and is on dialysis T/T/S. She does not really make urine. Can therefore not diurese. * on IV levofloxacin. Urine for strep and Legionella are negative, and sputum and blood cultures also negative. * Breathing treatments with bronchodilators. Titrate oxygen to maintain saturation above 90%. * #Acute on chronic anemia * hb went down to a abhishek of 6.1 and repeat was 6.4. * she had EGD which showed oozing gastric ulcers, which was treated with a heater probe and placed on clips. * on IV pantoprazole. Will switch to PO pantoprazole 40mg bid. * GI on board * on oral iron supplementation. . #ESRD: On hemodialysis Tuesdays and Saturdays. nephrology on board. On sevelamer and Cinacalcet. #Chest pain * She did have elevated troponins but her troponin is always elevated. I am hard pressed to think that his symptoms are due to non-STEMI. EKG did show some subendocardial injury. * weaned off nitro drip today. * put back on PO imdur * Cardiology on board. Per cardiology her symptoms are likely due to demand ischemia. She did have cardiac cath in January 2023 which showed severe triple- vessel CAD per cardiology she is not a candidate for CABG and his second best option would be a high risk multivessel PCI probably to the LAD and RCA. * Aspirin and Plavix due to anemia. Continue statin * She did have an echo done on 05/21/2024 which showed no regional wall motion abnormalities and showed EF of 55% with mild to moderate eccentric mitral valve insufficiency. * #History of bacteremia: * Noted to have staph bacteremia during her recent admission on May 18, 2024. * Repeat blood cultures from 05/24/2024 were negative. * She was placed on linezolid and completed 9 doses of that and also subsequently received Levaquin. Her white cell count was down to 3.9 on 05/23/2024 and is now up to 14.3. * wbc is down to 6.7. * Been treated with ceftriaxone and azithromycin as above. * #Hypertension: On amlodipine. IV hydralazine as needed. Also on carvedilol and imdur. #Hyperlipidemia: On statin. #DVT prophylaxis: heparin dc'd due to acute on chronic anemia. SCDs. CODE STATUS: Full code Disposition; anticipate dc home over the next 1-2 days Charges/Coding Visit Charges Inpatient E&M: 43194 Subs Hosp L3
--- NOTE | 2024-06-03 12:12 | CASEMGMT ---
SW spoke with patient and she was in agreement with completing Healthcare Power of Machine Assistant. SW assisted patient in completing document. Copies were made and given to patient along with original. SW also placed a copy in patient's chart. Bekah SAMAYOA
--- NOTE | 2024-06-03 12:27 | CASEMGMT ---
SW notified [facility] that patient will be discharged home today. LU will also fax d/c instructions to [facility] once done. Bekah SAMAYOA
[2024-06-03] MEDS: Acetaminophen 325 MG Tablet 650 MG PO ×2 (14:27→22:02)
[2024-06-03] MEDS: Heparin 10,000 UNITS/10 ML Vial IV (15:06)
[2024-06-03] MEDS: PureFlow B 2K Dialysis Soln 1 BAG 6 BAG PF (15:06)
[2024-06-03] MEDS: 0.9% Saline Lock 10 ML Syringe IV (15:06)
[2024-06-03] MEDS: 0.9% Normal Saline 1,000 ML IV.SOLN. 1000 ML OPERA.SITE (15:06)
--- NOTE | 2024-06-03 15:51 | PN.RENAL_ITS ---
Subjective Subjective Seen on dialysis today. Objective Data Objective Data Vital Signs: Vital Signs Temp Pulse Resp BP Pulse Ox O2 Del Method O2 Flow Rate 98.0 F 64 16 147/55 H 99 Bi-pap 3 06/03/24 12:45 06/03/24 15:30 06/03/24 15:30 06/03/24 15:30 06/03/24 15:30 06/03/24 15:30 06/03/24 14:00 FiO2 25 06/03/24 07:11 Oxygen Flow Rate (L/min) 3 Oxygen Delivery Method Bi-pap Weight: 73.5 kg Body Mass Index (BMI) 30.6 Intake & Output: Intake and Output for Last 24 Hours 06/01/24 06/02/24 06/03/24 23:59 23:59 23:59 Intake Total 260.35 / 410.35 986.75 / 1086.75 430 / 430 Output Total 2955 / 3005 550 / 550 Balance -2694.65 / -2594.65 436.75 / 536.75 430 / 430 Lab / Micro Data 06/03/24 05:46 06/03/24 05:46 Labs: Laboratory Results - last 24 hr 06/03/24 05:46: WBC 6.7, RBC 2.84 L, Hgb 8.6 L, Hct 26.0 L, MCV 91.5, MCH 30.3, MCHC 33.1, RDW Std Deviation 51.0 H, RDW Coeff of Dottie 15.8 H, Plt Count 102 L, MPV 9.4, Immature Gran % (Auto) 2.200 H, Neut % (Auto) 75.1 H, Lymph % (Auto) 10.3 L, [place] % (Auto) 6.3, Eos % (Auto) 5.7 H, Baso % (Auto) 0.4, Absolute Neuts (auto) 5.0, Absolute Lymphs (auto) 0.69 L, Nucleated RBC % 0.3, Sodium 135 L, Potassium 3.8, Chloride 99, Carbon Dioxide 27.0, Anion Gap 9, BUN 42 H, C reatinine 7.76 H*, Estim Creat Clear Calc 6.54, Est GFR (MDRD) Af Amer 7 L, Est GFR (MDRD) Non-Af 6 L, BUN/Creatinine Ratio 5.4 L, Glucose 82, Calcium 8.0 L Micro: Microbiology 05/31/24 12:20 Blood Culture (Wb) - Right Hand Blood Culture - Preliminary No growth in 48 hours. 05/31/24 16:15 Urine Catheter - Catheter Legionella Antigen - Final 05/31/24 16:15 Urine Catheter - Catheter Streptococcus pneumoniae Antigen (M - Final Rhythm Strip Rhythm Strip: Sinus Rhythm Physical Exam Narrative Alert awake oriented x 3 no obvious distress s1s2 no murmurs lungs rales abdomen soft no edema Tunneled dialysis catheter dressing clean, dry and intact Assessment & Plan Assessment/Plan (1) End stage renal disease: PLAN: -ESRD; on hemodialysis Friday, , Friday. Seen on dialysis today. On BiPAP due to shortness of breath. Will do isolated UF today 1 hour. Plan for 3 to 4 L of fluid removal. - Anemia. Hemoglobin improved 8.7, status post PRBC. Suspected GI bleed. Gastroenterology on consult. -Acute on chronic hypoxic respiratory failure; ultrafiltration as tolerated
[2024-06-03] MEDS: hydrALAZINE 25 MG Tablet PO ×2 (16:45→21:51)
[2024-06-03] MEDS: Nitroglycerin Oint 1 INCH PACKET TD ×2 (16:46→21:52)
--- NOTE | 2024-06-03 17:55 | EX.PCM.PN.GI ---
Subjective Subjective Patient underwent an upper endoscopy yesterday. She was discovered to have bleeding from the nostrils and also a large bleeding gastric ulcer in the gastric body. It was treated endoscopically. She does have any abdominal pain. She is tolerating a diet. She has been on a PPI drip for the past 24 hours. Objective Data Objective Data Vital Signs: Vital Signs Temp Pulse Resp BP Pulse Ox O2 Del Method O2 Flow Rate 97.3 F L 64 16 136/52 H 100 Nasal Cannula 2.5 06/03/24 16:45 06/03/24 16:45 06/03/24 16:45 06/03/24 16:45 06/03/24 16:45 06/03/24 16:45 06/03/24 16:45 FiO2 25 06/03/24 07:11 Oxygen Flow Rate (L/min) 2.5 Oxygen Delivery Method Nasal Cannula Weight: 154 lb 12.232 oz Body Mass Index (BMI) 29.2 Intake & Output: Intake and Output for Last 24 Hours 06/01/24 06/02/24 06/03/24 23:59 23:59 23:59 Intake Total 260.35 / 410.35 986.75 / 1086.75 680 / 680 Output Total 2955 / 3005 550 / 550 3280 / 3280 Balance -2694.65 / -2594.65 436.75 / 536.75 -2600 / -2600 Lab / Micro Data 06/03/24 05:46 06/03/24 05:46 Labs: Laboratory Results - last 24 hr 06/03/24 05:46: WBC 6.7, RBC 2.84 L, Hgb 8.6 L, Hct 26.0 L, MCV 91.5, MCH 30.3, MCHC 33.1, RDW Std Deviation 51.0 H, RDW Coeff of Dottie 15.8 H, Plt Count 102 L, MPV 9.4, Immature Gran % (Auto) 2.200 H, Neut % (Auto) 75.1 H, Lymph % (Auto) 10.3 L, [place] % (Auto) 6.3, Eos % (Auto) 5.7 H, Baso % (Auto) 0.4, Absolute Neuts (auto) 5.0, Absolute Lymphs (auto) 0.69 L, Nucleated RBC % 0.3, Sodium 135 L, Potassium 3.8, Chloride 99, Carbon Dioxide 27.0, Anion Gap 9, BUN 42 H, Creatinine 7.76 H*, Estim Creat Clear Calc 6.54, Est GFR (MDRD) Af Amer 7 L, Est GFR (MDRD) Non-Af 6 L, BUN/Creatinine Ratio 5.4 L, Glucose 82, Calcium 8.0 L Micro: Microbiology 05/31/24 12:20 Blood Culture (Wb) - Right Hand Blood Culture - Preliminary No growth in 48 hours. 05/31/24 16:15 Urine Catheter - Catheter Legionella Antigen - Final 05/31/24 16:15 Urine Catheter - Catheter Streptococcus pneumoniae Antigen (M - Final Rhythm Strip Rhythm Strip: Sinus Rhythm Physical Exam Const alert and oriented x3 Constitutional Narrative: frail, weak General Appearance: cooperative HEENT normocephalic and head/scalp atraumatic Eyes PERRL, EOMs intact bilaterally and conjunctivae normal Neck no lymphadenopathy, supple and no JVD Lymph Lymphatic: no lymphadenopathy noted Resp Resp Narrative: moderately diminished breath sounds bibasally, minimal crackles. ON 2L of oxygen after being taken off BIPAP. Cardio regular rate, regular rhythm, S1 normal heart sound, S2 normal heart sound and no murmurs GI normal to inspection, nondistended, normoactive bowel sounds, soft to palpation, non-tender and non-distended Extremity normal to inspection, full ROM, normal capillary refill and no clubbing, cyanosis or edema Extremity Narrative: dialysis catheter in chest General Extremity: no tenderness to palpation of joints or extremities Skin General Skin Exam: no breakdown Neuro oriented x3, CN's II-XII intact bilaterally, moves all extremities and no focal motor deficits Sensorium / Orientation: awake and alert Motor Exam: strength 5/5 throughout and general weakness Psych thought process normal, cooperative and affect normal Psych Narrative: frail Appearance: appropriate Assessment & Plan Assessment/Plan (1) Abdominal pain: PLAN: Patient originally had some abdominal pain but it was thought to possibly be secondary to hemodialysis. Patient at this time does not have abdominal pain after she has been transfused packed red blood cells. Differential diagnosis for her abdominal pain could be intestinal angina, peptic ulcer disease, portal gastropathy associated with chronic hepatitis C versus gastroparesis secondary to uncontrolled diabetes. She should undergo an upper endoscopy to evaluate upper GI tract. Recommend Protonix 40 mg once a day due to her renal failure. (2) Anemia: PLAN: Patient has a normocytic anemia with low iron indices. She also had receive iron transfusions and had a ferritin of 800 and has drifted down to 249. That is consistent with an iron deficiency anemia. I suspect she also has a concomitant macrocytic anemia secondary to chronic hepatitis C. She should undergo evaluation of her upper and lower GI tract along with her small bowel if her upper endoscopy is negative. (3) GI bleed: PLAN: Findings: There was a lot of red blood mixed with melanotic stool seen throughout the colon. Any exact source of the bleeding was not seen. It could be from an upper GI source. The examined esophagus was normal. Three oozing cratered gastric ulcers with a visible vessel were found in the gastric body. The largest lesion was 10 mm in largest dimension. To stop active bleeding, three hemostatic clips were successfully placed. 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 Bleeding had stopped at the end of the procedure. Coagulation for hemostasis using heater probe was successful. Estimated blood loss was minimal. No gross lesions were noted in the duodenal bulb. Impression: - Normal esophagus. - Oozing gastric ulcers with a visible vessel. Clips were placed. 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 Treated with a heater probe. - No gross lesions in the duodenal bulb. - No specimens collected. Recommendation: - Return patient to hospital [facility] for ongoing care. - Clear liquid diet today. - The patient is not currently taking anticoagulant or antiplatelet agents. - Use sucralfate tablets 1 gram PO QID indefinitely. - Give Protonix (pantoprazole): initiate therapy with 80 mg IV bolus, then 8 mg/hr IV by continuous infusion today. 06/03/2024-hemoglobin seems to be stable. Continue PPI drip and Carafate. Charges/Coding Visit Charges Inpatient E&M: [id number] [place] [id number]
[2024-06-03] MEDS: Atorvastatin Calcium 80 MG Tablet PO (21:52)
[2024-06-03] MEDS: Carvedilol 12.5 MG Tablet PO (21:52)
[2024-06-03] MEDS: Pantoprazole Sodium 40 MG Tablet PO (21:53)
[2024-06-04] VITALS (7 sets, daily range): BP systolic 119–140; BP diastolic 43–47; PULSE 66–79; RESP 17–20; TEMP 36.4–36.9; O2SAT 94–100; BMI 29.1
[2024-06-04 06:17] LABS: Absolute Lymphocyte Count 0.79 X10^3/uL (0.83-4.51); Absolute Neutrophil Count 3.5 X10^3/uL (2.0-7.7); Basophil# 0.04 X10^3/uL; Basophil% 0.7 % (0-1); Eosinophil# 0.55 X10^3/uL; Eosinophils% 10.2 % (0-5); Hematocrit 27.3 % (37-47); Hemoglobin 8.5 g/dL (12.0-15.0); Lymphocyte # 0.79 X10^3/ul (0.83-4.51); Lymphocyte % 14.7 % (19-41); Mean Corp Hgb Conc 31.1 g/dL (32-36); Mean Corpuscular Volume 93.2 fL (81-99); Mean Platelet Vol. 9.5 fl (6.2-12.0); Monocyte# 0.39 X10^3/uL; Monocyte% 7.2 % (0-10); NRBC Flagged by Analyzer 0 % (0-5); Neutrophil # 3.51 X10^3/uL (2.7-7.7); Neutrophil % 65.3 % (47-70); Platelet Count 102 K/mm3 (150-450); RBC Distribution Width CV 15.8 % (11.6-14.6); RBC Distribution Width SD 52.1 fl (35.1-43.9); Red Blood Count 2.93 M/mm3 (4.2-5.4); White Blood Count 5.4 K/mm3 (4.4-11.0)
[2024-06-04] MEDS: Acetaminophen 325 MG Tablet 650 MG PO (06:52)
[2024-06-04 07:02] LABS: Anion Gap 8 (5-15); BUN 31 mg/dL (7-18); BUN/Creat Ratio 4.7 RATIO (10-20); Calcium,Total 7.8 mg/dL (8.5-10.1); Chloride 101 mmol/L (98-107); Creatinine, Serum 6.56 mg/dL (0.55-1.02); EST Glomerular Filtration Rate 7 mL/min (>60); Est Glom Filt Rate - Afr Amer 8 mL/min (>60); Estimated Creatinine Clearance 7.55 ml/min; Glucose 74 mg/dL (74-106); Potassium 3.7 mmol/L (3.5-5.1); Sodium Level 135 mmol/L (136-145)
[2024-06-04] MEDS: Ipratropium/Albuterol Sulfate 3 ML AMPUL.NEB INHALATION ×2 (07:06→12:49)
[2024-06-04] MEDS: Calcium Carbonate 500 MG Tablet 1000 MG PO (08:00)
[2024-06-04] MEDS: Calcium Acetate 667 MG Capsule 1334 MG PO ×3 (08:03→17:21)
[2024-06-04] MEDS: Multivitamins,Therapeutic Tablet 1 TABLET PO (08:03)
[2024-06-04] MEDS: Ferrous Sulfate 325 MG Tablet PO (08:03)
[2024-06-04] MEDS: SEVELAMER CARBONATE 800 MG TABLET PO ×3 (08:03→17:21)
[2024-06-04] MEDS: Cinacalcet HCl 30 MG Tablet PO (09:43)
[2024-06-04] MEDS: Pantoprazole Sodium 40 MG Tablet PO (09:43)
[2024-06-04] MEDS: amLODIPine 10 MG Tablet PO (09:43)
[2024-06-04] MEDS: Carvedilol 12.5 MG Tablet PO (09:43)
[2024-06-04] MEDS: 0.9% Saline Lock 10 ML Syringe IV ×2 (09:44→11:26)
[2024-06-04] MEDS: levoFLOXacin IV 500 MG/100 ML BAG 100 MG IV (09:44)
[2024-06-04] MEDS: guaiFENesin 1,200 MG Tablet 1200 MG PO (09:44)
--- NOTE | 2024-06-04 11:43 | CASEMGMT ---
Addendum entered by Efren Welsh 06/04/24 16:13: Order for DC placed. EMail sent to [facility]iative to notify them of DC. NIKKI CM to pt room at this time. Pt states that she is OK with HH coming on Friday. Pt states that she will attend HD tomorrow. Pt states that one of her grandchildren will be picking her up from the hospital today and will be bringing in a portable tank for her. Pt denies further needs at this time. Addendum entered by Efren Welsh 06/04/24 15:17: Pt did not qualify for an increase in oxygen demands as she saturated adequately on her baseline oxygen needs. TC to [facility] and updated that the pt will be present for OP HD tomorrow. Addendum entered by Efren Welsh 06/04/24 14:57: Alyssa states that they can resume care on Friday. DC plan updated. Original Note: Per the MD, pt is projected to DC home today. TC to Alyssa at [facility]. Alyssa states that they are able to accept the pt again and resume care either this weekend or early next week. Will follow. Pt is active with SN, PT, OT, ST, and SW. Pt home O2 testing pending.
--- NOTE | 2024-06-04 13:37 | PN.RENAL_ITS ---
Subjective Subjective No new complaints. Objective Data Objective Data Vital Signs: Vital Signs Temp Pulse Resp BP Pulse Ox O2 Del Method O2 Flow Rate 98.4 F 68 17 140/43 H 100 Nasal Cannula 3 06/04/24 09:39 06/04/24 09:39 06/04/24 09:39 06/04/24 09:39 06/04/24 13:30 06/04/24 09:39 06/04/24 13:30 FiO2 25 06/03/24 07:11 Oxygen Flow Rate (L/min) [ 3 AMBULATING with Oxygen #1] Oxygen Flow Rate (L/min) [At 3 REST with Oxygen] Oxygen Flow Rate (L/min) 3 Oxygen Delivery Method Nasal Cannula Weight: 70 kg Body Mass Index (BMI) 29.1 Intake & Output: Intake and Output for Last 24 Hours 06/02/24 06/03/24 06/04/24 23:59 23:59 23:59 Intake Total 986.75 / 1086.75 680 / 800 270 / 270 Output Total 550 / 550 3280 / 3280 0 / 0 Balance 436.75 / 536.75 -2600 / -2480 270 / 270 Lab / Micro Data 06/04/24 05:12 06/04/24 05:12 Labs: Laboratory Results - last 24 hr 06/04/24 05:12: WBC 5.4, RBC 2.93 L, Hgb 8.5 L, Hct 27.3 L, MCV 93.2, MCH 29.0, MCHC 31.1 L D, RDW Std Deviation 52.1 H, RDW Coeff of Dottie 15.8 H, Plt Count 102 L, MPV 9.5, Immature Gran % (Auto) 1.900 H, Neut % (Auto) 65.3, Lymph % (Auto) 14.7 L, [place] % (Auto) 7.2, Eos % (Auto) 10.2 H, Baso % (Auto) 0.7, Absolute Neuts (auto) 3.5, Absolute Lymphs (auto) 0.79 L, Nucleated RBC % 0, Sodium 135 L , Potassium 3.7, Chloride 101, Carbon Dioxide 26.0, Anion Gap 8, BUN 31 H, C reatinine 6.56 H, Estim Creat Clear Calc 7.55, Est GFR (MDRD) Af Amer 8 L, Est GFR (MDRD) Non-Af 7 L, BUN/Creatinine Ratio 4.7 L, Glucose 74, Calcium 7.8 L Micro: Microbiology 05/31/24 12:20 Blood Culture (Wb) - Right Hand Blood Culture - Preliminary No growth in 48 hours. 05/31/24 16:15 Urine Catheter - Catheter Legionella Antigen - Final 05/31/24 16:15 Urine Catheter - Catheter Streptococcus pneumoniae Antigen (M - Final Rhythm Strip Rhythm Strip: Sinus Rhythm Physical Exam Narrative Alert awake oriented x 3 no obvious distress s1s2 no murmurs lungs rales abdomen soft no edema Tunneled dialysis catheter dressing clean, dry and intact Assessment & Plan Assessment/Plan (1) End stage renal disease: PLAN: -ESRD; on hemodialysis Friday, , Friday. Able to remove extra fluid yesterday. Today breathing looks better. Saturating well on nasal cannula. Asking to go home. Okay to discharge from nephrology standpoint can go to outpatient dialysis - Anemia. Hemoglobin improved 8.7, status post PRBC. Suspected GI bleed. Gastroenterology on consult. -Acute on chronic hypoxic respiratory failure; better today.
--- NOTE | 2024-06-04 16:06 | DS.PCM_ITS ---
Providers Date of Admission: 05/31/24 Date of Discharge: 06/04/24 Primary Care Physician: Dr. Prince Cumimns, DO Consultations 05/31/24 15:44 Consult: Cardiology Routine Consulting Provider: Frantz Gregorio Reason for Consult: chest pain EMERGENT Consult: No Notified: Yes Date Notified: 05/31/24 Time Notified: 15:47 Method of Notification: ED Physician Initiated Consult: Nephrology Routine Consulting Provider: Africa Gaytan Reason for Consult: ESRD on hemodialysis EMERGENT Consult: No MD Notified: Yes Date Notified: 05/31/24 Time Notified: 15:47 Method of Notification: Text 06/01/24 08:29 Consult: Gastroenterology Routine Consulting Provider: [facility] Reason for Consult: acute on chronic anemia EMERGENT Consult: No Notified: Yes Date Notified: 06/01/24 Time Notified: 08:30 Method of Notification: Text Reason For Visit: ACUTE HYPOXIC RESPIRATORY FAILURE Diagnosis Discharge Diagnosis (1) End stage renal disease: Status: Acute Code(s): N18.6 - End stage renal disease Plan #Acute on chronic hypoxic respiratory failure * Due to probable fluid overload. Infection is also a concern as her WBC is elevated and chest x-ray did show evidence of possible fluid overload versus pneumonia. * She denies any productive cough. She denies any fever or chills. * Troponins are elevated but her troponins are chronically elevated. EKG however did show evidence of some subendocardial injury. * now off BIPAP, on 2.5L of oxygen * Already on aspirin also on Imdur. Patient has ESRD and is on dialysis T/T/S. She does not really make urine. Can therefore not diurese. * on IV levofloxacin. Urine for strep and Legionella are negative, and sputum and blood cultures also negative. * Breathing treatments with bronchodilators. Titrate oxygen to maintain saturation above 90%. * #Acute on chronic anemia * hb went down to a abhishek of 6.1 and repeat was 6.4. * she had EGD which showed oozing gastric ulcers, which was treated with a heater probe and placed on clips. * on IV pantoprazole. Will switch to PO pantoprazole 40mg bid. * GI on board * on oral iron supplementation. . #ESRD: On hemodialysis Tuesdays and Saturdays. nephrology on board. On sevelamer and Cinacalcet. #Chest pain * She did have elevated troponins but her troponin is always elevated. I am hard pressed to think that his symptoms are due to non-STEMI. EKG did show some subendocardial injury. * weaned off nitro drip today. * put back on PO imdur * Cardiology on board. Per cardiology her symptoms are likely due to demand ischemia. She did have cardiac cath in January 2023 which showed severe triple- vessel CAD per cardiology she is not a candidate for CABG and his second best option would be a high risk multivessel PCI probably to the LAD and RCA. * Aspirin and Plavix due to anemia. Continue statin * She did have an echo done on 05/21/2024 which showed no regional wall motion abnormalities and showed EF of 55% with mild to moderate eccentric mitral valve insufficiency. * #History of bacteremia: * Noted to have staph bacteremia during her recent admission on May 18, 2024. * Repeat blood cultures from 05/24/2024 were negative. * She was placed on linezolid and completed 9 doses of that and also subsequently received Levaquin. Her white cell count was down to 3.9 on 05/23/2024 and is now up to 14.3. * wbc is down to 6.7. * Been treated with ceftriaxone and azithromycin as above. * #Hypertension: On amlodipine. IV hydralazine as needed. Also on carvedilol and imdur. #Hyperlipidemia: On statin. #DVT prophylaxis: heparin dc'd due to acute on chronic anemia. SCDs. CODE STATUS: Full code Disposition; anticipate dc home over the next 1-2 days Medications at Discharge Home Medications calcium acetate(phosphat bind) 667 mg capsule 2 cap PO TID SUPPLEMENT 03/07/22 cinacalcet 30 mg tablet 30 mg PO DAILY DIALYSIS 09/19/22 sevelamer carbonate 800 mg tablet 800 mg PO TID DIALYSIS 01/28/23 diclofenac sodium 1 % topical gel (Voltaren Arthritis Pain) 2 g topical ONCE PRN ARTHRITIS 10/03/23 amlodipine 10 mg tablet 10 mg PO DAILY BLOOD PRESSURE #7 tabs 02/13/24 aspirin 81 mg tablet,delayed release See Rx Instructions .Route .COMPLEX #90 tabs 05/20/24 atorvastatin 80 mg tablet 80 mg PO QHS CHOLESTEROL #30 tabs 05/20/24 carvedilol 12.5 mg tablet 12.5 mg PO BID blood pressure 05/20/24 clopidogrel 75 mg tablet 75 mg PO DAILY BLOOD THINNER #30 tabs 05/20/24 guaifenesin 1,200 mg tablet, extended release 12 hr (Mucus Relief ER) 1,200 mg PO BID cough 7 days #14 tabs 05/20/24 hydralazine 25 mg tablet 25 mg PO TID 05/20/24 multivitamin with folic acid 400 mcg tablet (Daily-Caron (with folic acid)) 1 tab PO DAILY vitamin 05/20/24 isosorbide dinitrate 20 mg tablet 20 mg PO BID heart #30 tabs 05/26/24 ferrous sulfate 325 mg (65 mg iron) tablet (FeroSul) 325 mg PO DAILY SUPPLEMENT #90 tabs 05/28/24 pantoprazole 40 mg tablet,delayed release 40 mg PO BID #60 tabs 06/04/24 sucralfate 1 gram tablet 1 g PO .qid #120 tabs 06/04/24 Hospital Course Operations None Procedures EGD Summary of Care Provided Minutes Spent on Discharge: 55 Hospital Course: NATALI KINSEY, is a 68 F with a PMH as outlined who presents via the ED On 05/31/2024 with a complaint of chest pain and shortness of breath. She was recently admitted in the hospital and managed for Staph bacteremia, type II nonstemi and hypertension. She also has ESRD on hemodialysis. She had abrupt onset of shortness of breath and chest heaviness this morning. She denied any cough, palpitations, nausea, vomiting or any other symptoms. Review of systems is otherwise negative. Her granddaughter was by her bedside. Vitals in the ED were Blood pressure of 91.7 Fahrenheit with pulse rate of 127, blood pressure 150/89 and respirate rate of 27. She was initially placed on 15L of oxygen by nonrebreather mask but had to be transitioned to BIPAP. CBC showed hemoglobin of 8.4 with WBC of 14.3 and platelets of 160. Chemistry showed sodium of 135 with potassium of 3.8 and creatinine of 7.18. BNP was 2153 and troponin was 3811. Of note BNP and troponin are chronically elevated. Chest x- ray showed bilateral vascular congestion with CHF with possible superimposed pneumonia. She was admitted to be managed for acute hypoxic respiratory failure likely due to fluid overload from ESRD as well as non-STEMI. She was started on IV ceftriaxone and azithromycin empirically for pneumonia. Urine for strep and Legionella were negative. Lactic acid was elevated but this was thought to be due to to hypoxia. Nephrology was also consulted. Cardiology was consulted on account of the elevated troponins though her troponin as well as was elevated. She had had 2D echo done on 05/21/2024 which showed no regional motion abnormalities and showed EF of 55% with mild to moderate eccentric mitral valve insufficiency. Hospital course was complicated by acute on chronic anemia with hemoglobin dropping to a abhishek of 6.1. She was started on IV pantoprazole. She had EGD which showed oozing gastric ulcers which were treated with heater probe and clips placed. Cardiology thought his symptoms were likely due to demand ischemia and recommended no further intervention. White cell count trended downwards. Patient shortness of breath improved and she was weaned off of oxygen though she occasionally use BiPAP at night just for the comfort of it. Per discussion with gastroenterology, patient will stay off of aspirin for 2 weeks after discharge and then to resume at after that. She could stay on the Plavix. She was also given a prescription for p.o. sucralfate 1 g 4 times daily and is to continue on p.o. pantoprazole 40 mg twice daily. She was discharged home on 06/04/2024 and is follow-up with her primary care doctor, nephrology and GI. Patient seen and examined prior to discharge. She had no active complaints and had an uneventful night. Review of systems otherwise negative. Labs and vitals reviewed. Home medication reviewed and reconciled. Physical Exam Const alert and oriented x3 Constitutional Narrative: frail, weak General Appearance: cooperative and comfortable Orientation / Consciousness: awake HEENT normocephalic, head/scalp atraumatic and hearing grossly normal bilaterally Mouth: oral and palatal mucosa normal Eyes PERRL, EOMs intact bilaterally and conjunctivae normal Neck no lymphadenopathy, supple and no JVD Lymph Lymphatic: no lymphadenopathy noted Resp Resp Narrative: moderately diminished breath sounds bibasally, minimal crackles. ON 3L of oxygen by nasal canula Cardio regular rate, regular rhythm, S1 normal heart sound, S2 normal heart sound and no murmurs GI normal to inspection, nondistended, normoactive bowel sounds, soft to palpation, non-tender and non-distended Extremity normal to inspection, full ROM, normal capillary refill and no clubbing, cyanosis or edema Extremity Narrative: dialysis catheter in chest General Extremity: no tenderness to palpation of joints or extremities Skin General Skin Exam: no breakdown Neuro oriented x3, CN's II-XII intact bilaterally, moves all extremities and no focal motor deficits Sensorium / Orientation: awake and alert Motor Exam: strength 5/5 throughout and general weakness Psych thought process normal, cooperative and affect normal Psych Narrative: frail Appearance: appropriate Weight / BMI Weight Weight: 154 lb 5.177 oz Body Mass Index (BMI) 29.1 ABG / Lab / Microbiology Data 06/04/24 05:12 06/04/24 05:12 Laboratory: Laboratory Results - last 24 hr 06/04/24 05:12: WBC 5.4, RBC 2.93 L, Hgb 8.5 L, Hct 27.3 L, MCV 93.2, MCH 29.0, MCHC 31.1 L D, RDW Std Deviation 52.1 H, RDW Coeff of Dottie 15.8 H, Plt Count 102 L, MPV 9.5, Immature Gran % (Auto) 1.900 H, Neut % (Auto) 65.3, Lymph % (Auto) 14.7 L, [place] % (Auto) 7.2, Eos % (Auto) 10.2 H, Baso % (Auto) 0.7, Absolute Neuts (auto) 3.5, Absolute Lymphs (auto) 0.79 L, Nucleated RBC % 0, Sodium 135 L , Potassium 3.7, Chloride 101, Carbon Dioxide 26.0, Anion Gap 8, BUN 31 H, C reatinine 6.56 H, Estim Creat Clear Calc 7.55, Est GFR (MDRD) Af Amer 8 L, Est GFR (MDRD) Non-Af 7 L, BUN/Creatinine Ratio 4.7 L, Glucose 74, Calcium 7.8 L Microbiology: Microbiology 05/31/24 12:20 Blood Culture (Wb) - Right Hand Blood Culture - Preliminary No growth in 48 hours. 05/31/24 16:15 Urine Catheter - Catheter Legionella Antigen - Final 05/31/24 16:15 Urine Catheter - Catheter Streptococcus pneumoniae Antigen (M - Final D/C Instructions Discharge Diet: Low fat / Low cholesterol Discharge Activity: Return to Normal Activity Weight Bearing Status: Weight bearing as tolerated Call your doctor if you observe: Fever of 101 or Higher, Shortness of breath, Dizziness, Swelling in the ankles and Chest pain Meaningful Use Info Meaningful Use Meaningful Use Diagnoses (Choose all that apply): None applicable Ischemic Stroke Statin Dosing Therapy Reference: STATIN DOSE THERAPY REFERENCE: * Patients > 75 years receive moderate or high dose statin therapy. * Patients 75 years or YOUNGER should receive HIGH intensity statin dose unless contraindicated. You will be required to document reason for non-treatment if statin daily dose does not meet guidelines. HIGH DOSE STATIN THERAPY DAILY Atorvastatin > than or = to 40 mg Rosuvastatin > than or = to 20 mg Amlodipine + Atorvastatin > than or = to 2.5/40 mg Ezetimibe + Simvastatin 10/80 mg Simvastatin 80mg Discharge Plan Admission Admit Date/Time: 05/31/24 12:08 Primary Reason for Your Visit: GI bleed, acute on chronic hypoxic respiratory failure Attending Provider: Nayla Story Primary Care Provider: Prince Cummins Consulting Providers: Frantz Gregorio; [place] Gaytan Instructions Patient Instructions: GI Bleeding Ch, Heart Failure Discharge Orders/Prescriptions Prescriptions: New pantoprazole 40 mg Tablet,Delayed Release (Dr/Ec) 40 mg PO BID Qty: 60 2RF sucralfate 1 gram tablet 1 g PO .qid Qty: 120 1RF Continued amlodipine 10 mg tablet 10 mg PO DAILY Qty: 7 0RF calcium acetate(phosphat bind) 667 mg capsule 2 cap PO TID cinacalcet 30 mg Tablet 30 mg PO DAILY sevelamer carbonate 800 mg tablet 800 mg PO TID diclofenac sodium [Voltaren Arthritis Pain] 1 % gel 2 g topical ONCE PRN (Reason: ARTHRITIS) Rx Instructions: apply to right knee guaifenesin [Mucus Relief ER] 1,200 mg Tablet Extended Release 12hr 1,200 mg PO BID 7 Days Qty: 14 0RF carvedilol 12.5 mg tablet 12.5 mg PO BID hydralazine 25 mg tablet 25 mg PO TID multivitamin with folic acid [Daily-Caron (with folic acid)] 400 mcg tablet 1 tab PO DAILY isosorbide dinitrate 20 mg Tablet 20 mg PO BID Qty: 30 0RF atorvastatin 80 mg tablet 80 mg PO QHS Qty: 30 1RF clopidogrel 75 mg tablet 75 mg PO DAILY Qty: 30 1RF ferrous sulfate [FeroSul] 325 mg (65 mg iron) tablet 325 mg PO DAILY Qty: 90 1RF Held aspirin 81 mg tablet,delayed release (DR/EC) See Rx Instructions .ROUTE .COMPLEX Qty: 90 3RF Hold Instructions: Resume on 06/19/24. hold for 2 weeks due to GI bleed. Resume after 2 weeks. Dose Instruction: TAKE 1 TABLET BY MOUTH DAILY Rx Instructions: TAKE 1 TABLET BY MOUTH DAILY Referrals / Follow Up: Bebeto Trimble DO [Med Staff - Active Staff] - Within 2 Weeks (Please call the office to schedule an appt. ) Rojelio Bansal PA [Med Staff - Adv Practice Prof] - 06/11/24 11:00 am Disposition Disposition (needs filled in before D/C Order can be placed): Home, Self Care Charges/Coding Visit Charges Inpatient E&M: 25844 Disch Hosp >30min
== END 2024-06-04 18:00 | disposition home health service (06) | DRG 425 ==
LOC: ED 11:58 → ICU 12:57 → PCU 06-01 17:37
PROVIDERS: Anesthesiology; Internal Medicine Gastroenterology; Admitting Provider Student in an Organized Health Care Education/Training Program; Emergency Provider Emergency Medicine; PCP Family Medicine; Visit Provider Student in an Organized Health Care Education/Training Program
PROC: 0DJ08ZZ Inspection of Upper Intestinal Tract, Via Natural or Artificial Opening Endoscopic (ICD-10-PCS; CPT 43235; principal; 2024-06-02 12:40)
DX: E87.79 Other fluid overload (principal); J96.21 Acute and chronic respiratory failure with hypoxia; I50.31 Acute diastolic (congestive) heart failure; K25.4 Chronic or unspecified gastric ulcer with hemorrhage; N18.6 End stage renal disease; I24.89 Other forms of acute ischemic heart disease; B18.2 Chronic viral hepatitis C; J44.9 Chronic obstructive pulmonary disease, unspecified; I13.2 Hypertensive heart and chronic kidney disease with heart failure and with stage 5 chronic kidney disease, or end stage renal disease; D64.9 Anemia, unspecified; E78.5 Hyperlipidemia, unspecified; I25.10 Atherosclerotic heart disease of native coronary artery without angina pectoris; Z99.2 Dependence on renal dialysis; I25.2 Old myocardial infarction; Z87.891 Personal history of nicotine dependence; Z79.82 Long term (current) use of aspirin; Z79.899 Other long term (current) drug therapy; Z86.73 Personal history of transient ischemic attack (TIA), and cerebral infarction without residual deficits
CPT/HCPCS: 36415; 36600; 51702; 71045; 80048; 82728; 82803; 83540; 83550; 83605; 83880; 84450; 84460; 84484; 85014; 85018; 85025; 85610; 85730; 86850; 86900; 86901; 86920; 86922; 87040; 87449; 90937; 93005; 94002; 94003; 94640; 94762; 97162; 97166; 97535; 99285; J7030; P9016; A4216; G0257; J1940; J2405; Q5106

== ENCOUNTER 2024-06-10 04:03 | Inpatient (IN) | payer MEDICAID, SELFPAY ==
[2024-06-10] VITALS (29 sets, daily range): BP systolic 86–218; BP diastolic 41–115; PULSE 64–113; RESP 12–31; TEMP 36.3–37.3; O2SAT 30–100; BMI 28.7; BMI 29.8; BMI 29.7; BMI 28.3
--- NOTE | 2024-06-10 04:17 | RAD_ITS ---
INDICATION: DYSPNEA EXAMINATION/TECHNIQUE: X-RAY - XR Chest 1 View COMPARISON: 05/31/2024 FINDINGS: A right-sided double-lumen catheter seen with the tip at the junction of the superior vena cava and right atrium. EKG electrodes are seen. Persistent bilateral airspace disease suggestive of either bilateral pneumonia versus pulmonary edema. This is unchanged. Blunting of both costophrenic angles. Normal size heart. Normal mediastinum and gaye. Normal visualized pulmonary arteries. There is atherosclerotic calcification of the aortic arch with tortuosity. Normal visualized thoracic spine. Normal visualized ribs, clavicles, and shoulders. There is no demonstrated abnormality of the visualized soft tissue structures of the upper abdomen. RAD/Chest 1 View (Portable) IMPRESSION: Bilateral vascular congestion and CHF with possible superimposed bibasilar pneumonia. There has been no significant change since the previous study. Electronically Signed: Emigdio Graham MD at 4:50 EDT ,
--- NOTE | 2024-06-10 04:19 | EX.ED.DYSGE1 ---
HPI History of Present Illness Chief Complaint: Shortness of Breath Informant: patient and EMS Narrative Narrative: Patient is a 68-year-old female with past medical history of end-stage renal disease on dialysis COPD hypertension and congestive heart failure. She states that she was recently in the hospital roughly 10 days ago secondary to shortness of breath at that time began treatment for potential pneumonia as the cause of her symptoms as well as fluid overload. She states she is taking her antibiotic as directed and going to dialysis on Friday and Friday as directed. She states on Friday she started feeling shortness of breath despite wearing her normal 2 L nasal cannula oxygen. She states as the day progressed her shortness of breath worsened to the point where she cannot sleep secondary to the shortness of breath sensation and therefore EMS was called to bring her in for evaluation. [facility] Medical History CAD (coronary artery disease) (HFpEF) heart failure with preserved ejection fraction Acute respiratory failure with hypoxia Alcohol use Wears dentures Shingles outbreak Arthritis Dietary restriction Normal Holter exam History of echocardiogram Cardiology follow-up encounter History of heart attack CHF (congestive heart failure) Severe protein-calorie malnutrition Malnutrition of moderate degree COPD (chronic obstructive pulmonary disease) Substance abuse Dialysis patient GI bleed Hepatitis Hypertension History of hypertension Chronic progressive renal failure TIA (transient ischemic attack) End-stage renal disease on hemodialysis PONV (postoperative nausea and vomiting) Post-menopausal Wears glasses Ambulates with cane High cholesterol Easy bruising Edentulous Gastric reflux On home oxygen therapy Former smoker Shortness of breath on exertion Leg cramps Hyponatremia ESRD (end stage renal disease) on dialysis Acute and chronic respiratory failure with hypoxia Chronic kidney disease, stage V requiring chronic dialysis Cardiac dysrhythmia, unspecified NSTEMI, initial episode of care Anemia Asthma Stroke Diabetes Rheumatoid arthritis Type II diabetes mellitus Hypertension Home Medications ?Medication ?Instructions ?Recorded ?Last Taken ?Type calcium acetate(phosphat bind) 667 2 cap PO TID SUPPLEMENT 03/07/22 05/09/24 History mg capsule cinacalcet 30 mg tablet 30 mg PO DAILY DIALYSIS 09/19/22 05/09/24 History sevelamer carbonate 800 mg tablet 800 mg PO TID DIALYSIS 01/28/23 05/09/24 History diclofenac sodium 1 % topical gel 2 g topical ONCE PRN ARTHRITIS 10/03/23 11/24/23 History (Voltaren Arthritis Pain) amlodipine 10 mg tablet 10 mg PO DAILY BLOOD PRESSURE #7 02/13/24 05/10/24 Rx tabs aspirin 81 mg tablet,delayed See Rx Instructions .Route 05/20/24 Unknown Rx release .COMPLEX #90 tabs atorvastatin 80 mg tablet 80 mg PO QHS CHOLESTEROL #30 tabs 05/20/24 Unknown Rx carvedilol 12.5 mg tablet 12.5 mg PO BID blood pressure 05/20/24 Unknown History clopidogrel 75 mg tablet 75 mg PO DAILY BLOOD THINNER #30 05/20/24 Unknown Rx tabs guaifenesin 1,200 mg tablet, 1,200 mg PO BID cough 7 days #14 05/20/24 Unknown Rx extended release 12 hr (Mucus tabs Relief ER) hydralazine 25 mg tablet 25 mg PO TID 05/20/24 Unknown History multivitamin with folic acid 400 1 tab PO DAILY vitamin 05/20/24 Unknown History mcg tablet (Daily-Caron (with folic acid)) isosorbide dinitrate 20 mg tablet 20 mg PO BID heart #30 tabs 05/26/24 Unknown Rx ferrous sulfate 325 mg (65 mg 325 mg PO DAILY SUPPLEMENT #90 tabs 05/28/24 Unknown Rx iron) tablet (FeroSul) pantoprazole 40 mg tablet,delayed 40 mg PO BID #60 tabs 06/04/24 Unknown Rx release sucralfate 1 gram tablet 1 g PO .qid #120 tabs 06/04/24 Unknown Rx Allergy/AdvReac Type Severity Reaction Status Date / Time ceftriaxone Allergy Severe Rash Verified 06/10/24 04:05 vancomycin Allergy Unknown Rash Verified 06/10/24 04:05 Penicillins Allergy Swelling Verified 06/10/24 04:05 oxycodone HCl (From Percocet) AdvReac Intermediate Itching Verified 06/10/24 04:05 Family History Mother Hypertension Emphysema/COPD Sister Hypertension Surgical History S/P arteriovenous (AV) fistula creation History of arteriovenostomy for renal dialysis History of surgery History of eye surgery knee scope H/O: hysterectomy Social History Smoking Status: Former smoker alcohol intake: current details: 1 per week substance use type: does not use what type of physical activity do you participate in: none ROS ROS ED Constitutional Constitutional ED: Denies chills or fever(s) ENT ENT ED: Denies rhinorrhea or sore throat Cardiovascular Cardiovascular: Denies chest pain or palpitations Respiratory/Chest Respiratory/Chest: Reports cough and dyspnea Gastrointestinal Gastrointestinal: Denies abdominal pain, diarrhea, nausea or vomiting Musculoskeletal Musculoskeletal: Denies myalgias Integumentary Denies rash Neurologic Neurologic: Denies headache(s) Hematologic/Lymphatic Hematologic/Lymphatic: Denies easy bleeding or easy bruising Allergic/Immunologic Allergic/Immunologic ED: Denies mouth swelling or tongue swelling EXAM Physical Exam Const Vital Signs: 06/10/24 04:05 06/10/24 04:08 06/10/24 04:10 Temperature 97.5 F L 97.5 F L Temperature Source Temporal Temporal Pulse Rate 112 H 113 H Respiratory Rate 28 H 25 H Respiratory Effort Short of Breath Respiratory Depth Deep Respiratory Pattern Tachypnea Blood Pressure 140/115 H 140/115 H Blood Pressure Mean 123 123 Pulse Ox 96 97 Oxygen Delivery Method Nasal Cannula Nasal Cannula Nasal Cannula Oxygen Flow Rate (L/min) 4 4 4 Fraction of Inspired Oxygen (FIO2) 06/10/24 04:22 06/10/24 04:22 06/10/24 04:25 Temperature Temperature Source Pulse Rate 104 H 101 H 100 Respiratory Rate 20 H 31 H Respiratory Effort Respiratory Depth Respiratory Pattern Tachypnea Blood Pressure 130/107 H Blood Pressure Mean Pulse Ox 100 98 Oxygen Delivery Method Bi-pap Oxygen Flow Rate (L/min) Fraction of Inspired Oxygen (FIO2) 30 06/10/24 05:04 06/10/24 05:21 06/10/24 05:26 Temperature 97.5 F L Temperature Source Temporal Pulse Rate 92 Respiratory Rate 28 H Respiratory Effort Respiratory Depth Respiratory Pattern Blood Pressure 94/46 L 90/48 L 86/71 L Blood Pressure Mean 62 62 76 Pulse Ox 98 Oxygen Delivery Method Bi-pap Oxygen Flow Rate (L/min) Fraction of Inspired Oxygen (FIO2) 06/10/24 05:56 06/10/24 06:06 06/10/24 06:20 Temperature 98.1 F 98.1 F Temperature Source Axillary Pulse Rate 91 90 92 Respiratory Rate 24 H 23 H 21 H Respiratory Effort Respiratory Depth Respiratory Pattern Blood Pressure 94/46 L 95/41 L 101/49 L Blood Pressure Mean 62 59 66 Pulse Ox 98 98 98 Oxygen Delivery Method Bi-pap Bi-pap Oxygen Flow Rate (L/min) Fraction of Inspired Oxygen (FIO2) Positive well developed and cachectic General Appearance ED: well developed and cachectic Nutritional Appearance: cachectic HEENT HEENT Narrative: No tongue or lip swelling no oral lesions no airway edema or compromise No secondary findings in the posterior pharynx to suggest infection Eyes PERRL and EOMs intact bilaterally General Eye ED: Yes pale conjunctiva; Negative for scleral icterus Neck supple Neck Narrative: Bilateral JVD noted Chest Wall palpation of chest normal Chest Narrative: There is a dialysis port in place in the right chest wall without secondary findings to suggest infection Resp Resp Narrative: Patient is in mild to moderate respiratory distress. Breath sounds are diminished throughout with coarse crackles noted in the bilateral bases. Patient is tachypneic with accessory muscle use and faint retraction. No nasal flaring or stridor noted. Cardio regular rhythm Rate: tachycardic and other GI normal to inspection, nondistended, normoactive bowel sounds, non-tender, non-distended and no masses GI Narrative: No pulsatile mass or fluid wave Auscultation: normoactive bowel sounds Palpation: soft Extremity Extremity Narrative: Trace to +1 pitting edema to the bilateral lower extremities that is equal and symmetric with negative Homans' sign Neuro oriented x3, CN's II-XII intact bilaterally and no sensory deficits noted Sensorium / Orientation: alert Motor Exam: strength 5/5 throughout Psych mental status grossly normal Skin no rashes or lesions noted MDM MDM MDM Narrative Medical decision making narrative: Patient arrived to the ER hypertensive and tachycardic. EMS stated she was 95% on her normal 2 L and they placed her on 4 secondary to her report of increased shortness of breath which increased her to roughly 98%. Despite the patient's normal pulse ox she was tachypneic with accessory muscle use and slight retractions. Her physical exam displayed coarse crackles in the lung tissue and with her history of CHF it was felt that she most likely was developing repeat fluid overload causing her shortness of breath. Secondary to this she was placed on BiPAP and given 1 sublingual nitro to reduce preload. After receiving the sublingual nitro and being placed on BiPAP her work of breathing improved and her pulse ox remained in the mid to high 90s. Chest x-ray confirmed vascular congestion consistent with her exam and history and the radiologist feels this is relatively stable when compared to her x-ray from 10 days ago. There is question of superimposed pneumonia but the patient does not have a fever she does not have a white count and she has been on antibiotic and therefore I have low concern that there is an infectious process behind today shortness of breath sensation. The patient is anemic but is at her baseline value when compared to previous laboratory evaluations. The patient did not present hypoxic but she was in respiratory distress with tachypnea and accessory muscle use and slight retraction. She does not have access to BiPAP at home. Therefore at this time I feel that her safest option will be observation in the hospital where she can continue BiPAP undergo dialysis and potentially be set up for BiPAP at home as she has been having recurrent bouts of vascular congestion bringing her to the hospital throughout the month. With this concern the case was discussed with the hospitalist who agrees with plan of care and therefore admit the patient for further treatment at this time. History & Record Review Discussion w/independent historian: EMS personnel, Patient and Family Lab Data Attestation: I reviewed the patient's lab results. Labs: Laboratory Results - last 24 hr 06/10/24 04:27 WBC 7.1 RBC 2.93 L Hgb 8.7 L Hct 28.1 L MCV 95.9 MCH 29.7 MCHC 31.0 L RDW Std Deviation 55.9 H RDW Coeff of Dottie 16.0 H Plt Count 155 MPV 9.7 Immature Gran % (Auto) 1.000 H Neut % (Auto) 69.8 Lymph % (Auto) 18.7 L Dickey % (Auto) 8.2 Eos % (Auto) 1.6 Baso % (Auto) 0.7 Absolute Neuts (auto) 4.9 Absolute Lymphs (auto) 1.32 Nucleated RBC % 0.3 Sodium 138 Potassium 4.3 Chloride 95 L Carbon Dioxide 29.0 Anion Gap 13 BUN 27 H Creatinine 6.62 H Estim Creat Clear Calc 7.43 Est GFR (MDRD) Af Amer 8 L Est GFR (MDRD) Non-Af 7 L BUN/Creatinine Ratio 4.1 L Glucose 190 H Calcium 8.9 Phosphorus 5.4 H Magnesium 2.3 Procalcitonin 0.83 H Radiography Diagnostic Testing: Clinical Impression(s) from Imaging Studies Chest X-Ray 06/10/24 04:17 IMPRESSION: Bilateral vascular congestion and CHF with possible superimposed bibasilar pneumonia. There has been no significant change since the previous study. Electronically Signed: Emigdio Graham MD at 4:50 EDT , Chest x-ray as interpreted by the emergency medicine physician reveals bilateral vascular congestion consistent with CHF that appears slightly improved/stable when compared to chest x-ray from May 31 Management Discussion w/another healthcare provider: Hospitalist Discharge Plan Dx/Rx/DC Orders Clinical Impression: Acute exacerbation of chronic heart failure, ESRD (end stage renal disease) on dialysis, Hypertension, Acute dyspnea, Pulmonary vascular congestion, COPD (chronic obstructive pulmonary disease) Disposition Disposition: Acute Care [facility]
[2024-06-10] MEDS: Nitroglycerin SL (ED/IMG/CATH) 0.4 MG TABLET SL (04:25)
[2024-06-10 04:34] LABS: Absolute Lymphocyte Count 1.32 X10^3/uL (0.83-4.51); Absolute Neutrophil Count 4.9 X10^3/uL (2.0-7.7); Basophil# 0.05 X10^3/uL; Basophil% 0.7 % (0-1); Eosinophil# 0.11 X10^3/uL; Eosinophils% 1.6 % (0-5); Hematocrit 28.1 % (37-47); Hemoglobin 8.7 g/dL (12.0-15.0); Lymphocyte # 1.32 X10^3/ul (0.83-4.51); Lymphocyte % 18.7 % (19-41); Mean Corpuscular Hgb 29.7 pg (27.0-32.0); Mean Corpuscular Volume 95.9 fL (81-99); Mean Platelet Vol. 9.7 fl (6.2-12.0); Monocyte# 0.58 X10^3/uL; Monocyte% 8.2 % (0-10); NRBC Flagged by Analyzer 0.3 % (0-5); Neutrophil # 4.94 X10^3/uL (2.7-7.7); Neutrophil % 69.8 % (47-70); Platelet Count 155 K/mm3 (150-450); RBC Distribution Width SD 55.9 fl (35.1-43.9); Red Blood Count 2.93 M/mm3 (4.2-5.4); White Blood Count 7.1 K/mm3 (4.4-11.0)
[2024-06-10] MEDS: Ondansetron 4 MG/2 ML Vial IV (04:55)
[2024-06-10 05:05] LABS: Procalcitonin 0.83 ng/mL (0.00-0.09)
--- NOTE | 2024-06-10 06:02 | ED.RN ---
PT FLAGGED SEPSIS ALERT, AND FLUID RESUSCITATION. DR MCKENZIE AWARE, TOLD TO COMPLETE SEPSIS SCREEN, AND NO FLUIDS WILL BE ORDERED AT THIS TIME D/T PTS HX.
--- NOTE | 2024-06-10 06:19 | HP.PCM.HOS_ITS ---
[facility] - General General Date of Admission: 06/10/24 Date of Service: 06/10/24 Chief Complaint: SOB and Diarrhea. HPI Narrative NATALI CHAIDEZ, is a 68 F with a past medical history of essential hypertension, hyperlipidemia, overweight; with BMI of 28.7 this admission, DM-2; of unknown control, ESRD on HD; (--Fri) with patient stating she still makes urine, CAD; s/p NSTEMI (2022) with triple vessel disease but with patient not a candidate for CABG, Chronic Diastolic CHF; with preserved LVEF, history of TIA/CVA, history of tobacco abuse (quit ~2020); with subsequent asthma/COPD, chronic hypoxic respiratory failure; on 2L NC continuously, history of substance abuse, history of hepatitis C, PVD, history of hyponatremia, chronic anemia, history of GI bleed, history of clonic diverticular disease, history of DRESS, history of RSD, history of hysterectomy, history of severe protein-calorie malnutrition, history of shingles, GERD, listed allergy to PCN (swelling), history of allergy to Rocephin (rash), history of allergy to Vancomycin (rash), RA, OA; with chronic debility and recent admission here from May 31, 2024 to June 04, 2024 for treatment of AE of Chronic Systolic CHF; with preserved LVEF, chest pain, acute anemia and possible super-imposed pneumonia who now re-presents to [facility] ER complaining of SOB and Diarrhea. Ms. Chaidez reports her symptoms began approximately 10 days prior to admission with progressively worsening SOB in spite of taking her medications as prescribed including her antibiotics. She then tried to retire for the evening - but when she could not sleep due to SOB at rest she decided to activate EMS. Her daughter shared her concern with the ER physician that she thought her mother would benefit from BiPAP as she is consistently dyspneic on her current 2L NC and she attributes part of her improvement to this modality of treatment. There was no associated fever, chills, nausea, vomiting, constipation, chest pain, palpitations or headache but she does admit to intermittent generalized abdominal pain with diarrhea. In the ER she was diagnosed with AE of Chronic Systolic CHF; with preserved LVEF after she was noted to have CXR positive for bilateral vascular congestion and CHF with possible superimposed bibasilar pneumonia complicated by clinical evidence of Acute Hypoxic Respiratory Failure; requiring treatment with BiPAP in the setting of a pattern of serial readmission with most recent stay 10 days ago for treatment of a very similar clinical scenario suspicious for possible underlying noncompliance with fluid restriction and/or dietary indiscretion with sodium in patient with ESRD on HD and she was then admitted to the PCU for ongoing care for a stay that is expected to extend beyond 2 midnights. FORMERLY [facility], [facility] Medical History CAD (coronary artery disease) (HFpEF) heart failure with preserved ejection fraction Acute respiratory failure with hypoxia Alcohol use Wears dentures Shingles outbreak Arthritis Dietary restriction Normal Holter exam History of echocardiogram Cardiology follow-up encounter History of heart attack CHF (congestive heart failure) Severe protein-calorie malnutrition Malnutrition of moderate degree COPD (chronic obstructive pulmonary disease) Substance abuse Dialysis patient GI bleed Hepatitis Hypertension History of hypertension Chronic progressive renal failure TIA (transient ischemic attack) End-stage renal disease on hemodialysis PONV (postoperative nausea and vomiting) Post-menopausal Wears glasses Ambulates with cane High cholesterol Easy bruising Edentulous Gastric reflux On home oxygen therapy Former smoker Shortness of breath on exertion Leg cramps Hyponatremia ESRD (end stage renal disease) on dialysis Acute and chronic respiratory failure with hypoxia Chronic kidney disease, stage V requiring chronic dialysis Cardiac dysrhythmia, unspecified NSTEMI, initial episode of care Anemia Asthma Stroke Diabetes Rheumatoid arthritis Type II diabetes mellitus Hypertension Home Medications ?Medication ?Instructions ?Recorded ?Last Taken ?Type calcium acetate(phosphat bind) 667 2 cap PO TID SUPPLEMENT 03/07/22 05/09/24 History mg capsule cinacalcet 30 mg tablet 30 mg PO DAILY DIALYSIS 09/19/22 05/09/24 History sevelamer carbonate 800 mg tablet 800 mg PO TID DIALYSIS 01/28/23 05/09/24 History diclofenac sodium 1 % topical gel 2 g topical ONCE PRN ARTHRITIS 10/03/23 11/24/23 History (Voltaren Arthritis Pain) amlodipine 10 mg tablet 10 mg PO DAILY BLOOD PRESSURE #7 02/13/24 05/10/24 Rx tabs aspirin 81 mg tablet,delayed See Rx Instructions .Route 05/20/24 Unknown Rx release .COMPLEX #90 tabs atorvastatin 80 mg tablet 80 mg PO QHS CHOLESTEROL #30 tabs 05/20/24 Unknown Rx carvedilol 12.5 mg tablet 12.5 mg PO BID blood pressure 05/20/24 Unknown History clopidogrel 75 mg tablet 75 mg PO DAILY BLOOD THINNER #30 05/20/24 Unknown Rx tabs guaifenesin 1,200 mg tablet, 1,200 mg PO BID cough 7 days #14 05/20/24 Unknown Rx extended release 12 hr (Mucus tabs Relief ER) hydralazine 25 mg tablet 25 mg PO TID 05/20/24 Unknown History multivitamin with folic acid 400 1 tab PO DAILY vitamin 05/20/24 Unknown History mcg tablet (Daily-Caron (with folic acid)) isosorbide dinitrate 20 mg tablet 20 mg PO BID heart #30 tabs 05/26/24 Unknown Rx ferrous sulfate 325 mg (65 mg 325 mg PO DAILY SUPPLEMENT #90 tabs 05/28/24 Unknown Rx iron) tablet (FeroSul) pantoprazole 40 mg tablet,delayed 40 mg PO BID #60 tabs 06/04/24 Unknown Rx release sucralfate 1 gram tablet 1 g PO .qid #120 tabs 06/04/24 Unknown Rx Allergy/AdvReac Type Severity Reaction Status Date / Time ceftriaxone Allergy Severe Rash Verified 06/10/24 04:05 vancomycin Allergy Unknown Rash Verified 06/10/24 04:05 Penicillins Allergy Swelling Verified 06/10/24 04:05 oxycodone HCl (From Percocet) AdvReac Intermediate Itching Verified 06/10/24 04:05 Family History Mother Hypertension Emphysema/COPD Sister Hypertension Surgical History S/P arteriovenous (AV) fistula creation History of arteriovenostomy for renal dialysis History of surgery History of eye surgery knee scope H/O: hysterectomy Social History Smoking Status: Former smoker alcohol intake: current details: 1 per week substance use type: does not use what type of physical activity do you participate in: none ROS ROS Narrative Review of Systems: Constitutional: Patient denies fever or chills. Eyes: Patient denies changes in vision or discharge from eyes. ENT: Patient denies runny nose, sore throat or ear pain. Resp: Patient admit to [facility] that has progressed to SOB at rest as per HPI. CV: Patient denies chest pain, palpitations or heart racing. GI: Patient admits to generalized mild abdominal pain with diarrhea but she denies nausea or vomiting as per HPI. : Patient denies dysuria or hematuria. MSK: Patient denies arthralgias or myalgias. Skin: Patient denies rash, abscess, wound or jaundice. Neuro: Patient denies headache, paresthesias or focal neurologic deficits. Psych: Patient denies symptoms of uncontrolled depression or anxiety. Allergy: Patient denies lip swelling, tongue swelling or urticaria. Hematology: Patient denies easy bleeding or easy bruisability. Endocrinology: Patient denies polyuria, polydipsia and polyphagia. 14 point ROS otherwise negative except for positives noted above. Vital Signs Vital Signs Vital Signs: 06/10/24 04:05 06/10/24 04:08 06/10/24 04:10 Temperature 97.5 F L 97.5 F L Temperature Source Temporal Temporal Pulse Rate 112 H 113 H Respiratory Rate 28 H 25 H Respiratory Effort Short of Breath Respiratory Depth Deep Respiratory Pattern Tachypnea Blood Pressure 140/115 H 140/115 H Blood Pressure Mean 123 123 Pulse Ox 96 97 Oxygen Delivery Method Nasal Cannula Nasal Cannula Nasal Cannula Oxygen Flow Rate (L/min) 4 4 4 Fraction of Inspired Oxygen (FIO2) 06/10/24 04:22 06/10/24 04:22 06/10/24 04:25 Temperature Temperature Source Pulse Rate 104 H 101 H 100 Respiratory Rate 20 H 31 H Respiratory Effort Respiratory Depth Respiratory Pattern Tachypnea Blood Pressure 130/107 H Blood Pressure Mean Pulse Ox 100 98 Oxygen Delivery Method Bi-pap Oxygen Flow Rate (L/min) Fraction of Inspired Oxygen (FIO2) 30 06/10/24 05:04 06/10/24 05:21 06/10/24 05:26 Temperature 97.5 F L Temperature Source Temporal Pulse Rate 92 Respiratory Rate 28 H Respiratory Effort Respiratory Depth Respiratory Pattern Blood Pressure 94/46 L 90/48 L 86/71 L Blood Pressure Mean 62 62 76 Pulse Ox 98 Oxygen Delivery Method Bi-pap Oxygen Flow Rate (L/min) Fraction of Inspired Oxygen (FIO2) 06/10/24 05:56 06/10/24 06:06 Temperature 98.1 F 98.1 F Temperature Source Axillary Pulse Rate 91 90 Respiratory Rate 24 H 23 H Respiratory Effort Respiratory Depth Respiratory Pattern Blood Pressure 94/46 L 95/41 L Blood Pressure Mean 62 59 Pulse Ox 98 98 Oxygen Delivery Method Bi-pap Oxygen Flow Rate (L/min) Fraction of Inspired Oxygen (FIO2) Weight Weight: 152 lb 1.903 oz Body Mass Index (BMI) 28.7 Physical Exam Const alert and oriented x3 Constitutional Narrative: Mild distress noted with patient cachectic and chronically ill in appearance. General Appearance: cooperative HEENT normocephalic, head/scalp atraumatic, hearing grossly normal bilaterally and moist oral mucous membranes Eyes PERRL and EOMs intact bilaterally Neck Neck Narrative: Bilateral JVD noted. Resp Resp Narrative: Labored breathing with tachypnea and coarse crackles at bases with diminished breath sounds throughout. Auscultation: crackles Cardio regular rate and regular rhythm GI normal to inspection, nondistended, normoactive bowel sounds, soft to palpation, non-tender and non-distended Extremity Extremity Narrative: Symmetrical +1 pitting edema to bilateral lower extremities. Skin Skin Narrative: Patient has no evidence of rash, wounds or jaundice. Neuro oriented x3, CN's II-XII intact bilaterally, moves all extremities and no focal motor deficits Sensorium / Orientation: awake, alert, oriented to person, oriented to place and oriented to time Speech: speech normal Psych Mood & Affect: anxious Results Medical Records Data Attestation: I reviewed the patient's medical records Lab / Micro Data Attestation: I reviewed the patient's lab results. 06/10/24 04:27 06/10/24 04:27 Labs: Laboratory Results - last 24 hr 06/10/24 04:27: WBC 7.1, RBC 2.93 L, Hgb 8.7 L, Hct 28.1 L, MCV 95.9, MCH 29.7, MCHC 31.0 L, RDW Std Deviation 55.9 H, RDW Coeff of Dottie 16.0 H, Plt Count 155, MPV 9.7, Immature Gran % (Auto) 1.000 H, Neut % (Auto) 69.8, Lymph % (Auto) 18.7 L, [place] % (Auto) 8.2, Eos % (Auto) 1.6, Baso % (Auto) 0.7, Absolute Neuts (auto) 4.9, Absolute Lymphs (auto) 1.32, Nucleated RBC % 0.3, Sodium 138, Potassium 4.3, Chloride 95 L, Carbon Dioxide 29.0, Anion Gap 13, BUN 27 H, Creatinine 6.62 H, Estim Creat Clear Calc 7.43, Est GFR (MDRD) Af Amer 8 L, Est GFR (MDRD) Non- Af 7 L, BUN/Creatinine Ratio 4.1 L, Glucose 190 H, Calcium 8.9, Phosphorus 5.4 H , Magnesium 2.3, Procalcitonin 0.83 H Imaging Radiology Impression Chest X-Ray 06/10/24 04:17 IMPRESSION: Bilateral vascular congestion and CHF with possible superimposed bibasilar pneumonia. There has been no significant change since the previous study. Electronically Signed: Emigdio Graham MD at 4:50 EDT , Assessment & Plan Assessment/Plan (1) Acute exacerbation of chronic heart failure: (2) Acute hypoxic respiratory failure: (3) COPD (chronic obstructive pulmonary disease): QUALIFIERS: COPD type: unspecified COPD Qualified Code(s): J44.9 - Chronic obstructive pulmonary disease, unspecified (4) ESRD (end stage renal disease) on dialysis: (5) CAD (coronary artery disease): QUALIFIERS: Associated angina: without angina Coronary Disease- Associated Artery/Lesion type: [place] artery [place] vs. transplanted heart: n ative heart Qualified Code(s): I25.10 - Atherosclerotic heart disease of [place] coronary artery without angina pectoris PLAN: Plan 1. AE of Chronic Systolic CHF; with preserved LVEF after she was noted to have CXR positive for bilateral vascular congestion and CHF with possible superimposed bibasilar pneumonia - Admit to PCU. Give Lasix 40 mg IV once and follow strict I's & O's with records stating patient has previously been anuric. Check BNP. Check d-dimer. Recheck CXR in AM to follow trend and hopefully confirm improvement. Doubt sepsis and pneumonia but will give renally-dose Levaquin to cover. Give Tylenol prn pain or fever. 2. Acute Hypoxic Respiratory Failure; requiring treatment with BiPAP arising from #1 - Wean BiPAP as tolerated. 3. ESRD on HD; (T-Th-Sat) with patient claiming she still makes urine with suspected underlying noncompliance with fluid restriction and/or dietary indiscretion with sodium complicating #1 & #2 - Nephrology to consult this admission with help appreciated in advance. 4. Recent admission here from May 31, 2024 to June 04, 2024 for treatment of AE of Chronic Systolic CHF; with preserved LVEF, chest pain, acute anemia and possible super-imposed pneumonia in a greater pattern of serial readmission adding to the medical complexity of #1 - #3 - Noted. Patient will need to be carefully questioned and educated to avoid continued serial readmission. 5. Diarrhea with generalized abdominal pain adding to the burden of disease outlined from #1 - #4 - Place on enteric precautions and check stool studies this admission. 6. CAD; s/p NSTEMI (2022) with triple vessel disease but with patient not a candidate for CABG - Noted. 7. History of tobacco abuse (quit ~2020); with subsequent asthma/COPD and subsequent chronic hypoxic respiratory failure; on 2L NC continuously - Stable with no evidence of acute flare at this time. 8. Essential hypertension - Continue home regimen. 9. Hyperlipidemia - Resume statin. 10. Overweight; with BMI of 28.7 this admission - Weight loss will be recommended. Check TSH. 11. DM-2; of unknown control - ADA diet. FSBS q. AC/HS plus SSI. Check HgbA1c to objectively assess quality of diabetic control. 12. History of TIA/CVA - Stable. 13. History of substance abuse - Check [place] UDS to screen for DOA in case of relapse. 14. History of hepatitis C - Noted with patient having previously finished treatment. 15. PVD - Stable. 16. History of hyponatremia - Resolved with sodium of 138 mmol/L present on admission. 17. Chronic anemia - Stable with hemoglobin of 8.7 g/dL present on admission. 18. History of GI bleed - Noted with no signs of recurrence. 19. History of clonic diverticular disease - Noted. 20. History of DRESS - Noted. 21. History of RSD - Stable. 22. History of hysterectomy - Noted. 23. History of severe protein-calorie malnutrition - Noted. 24. History of shingles - Stable. 25. GERD - Resume PPI BID. 26. Listed allergy to PCN (swelling) - Noted. 27. History of allergy to Rocephin (rash) - Noted. 28. History of allergy to Vancomycin (rash) - Noted. 29. RA - Stable. 30. OA; with chronic debility and recent admission - PT/OT and Case Management to consult and treat on-rounds in the AM for further recommendations with help appreciated in advance. 31. DVT prophylaxis - Heparin 5,000 units sq BID plus SCD's. Total time: Approximately 75 minutes. Charges/Coding Visit Charges Inpatient E&M: 36217 Init Hosp L3
--- NOTE | 2024-06-10 07:35 | RAD_ITS ---
STUDY: X-RAY CHEST REASON FOR EXAM: Female, 68 years old. AE CHF. TECHNIQUE: Single AP portable view of the chest. COMPARISON: Comparison is made with prior study June 10, 2024 at 4:29 AM. FINDINGS: A right-sided double lumen catheter is seen. The tip is in the proximal portion of the superior vena cava. EKG electrodes are seen. Surgical clips are seen in the left axilla. Mild residual vascular congestion CHF although there has been improvement. There is suggestion of a small right apical pneumothorax but I think this is a skin fold. If repeat frontal radiograph without rotation is recommended. Blunting of both costophrenic angles. There is mild cardiac enlargement. Normal mediastinum and gaye. Normal visualized pulmonary arteries. There is atherosclerotic calcification of the aortic arch with tortuosity. There are diffuse degenerative changes of the visualized thoracic spine. Normal visualized ribs, clavicles, and shoulders. There is no demonstrated abnormality of the visualized soft tissue structures of the upper abdomen. RAD/Chest 1 View (Portable) IMPRESSION: Improved aeration of both lungs with mild residual vascular congestion CHF. Questionable right apical pneumothorax although I think this represents a skin line. A repeat frontal radiograph without rotation is recommended. Electronically Signed: Tacho Russell MD at 14:14 EDT ,
[2024-06-10 07:36] LABS: BNP,B-Type NATRIURETIC PEPTIDE 2084.1 pg/mL (0-100)
[2024-06-10 08:37] LABS: D-Dimer Quantitative (DVT/PE) 2.51 FEU/ug/m (0.27-0.49)
--- NOTE | 2024-06-10 09:05 | CT_ITS ---
STUDY: CTA CHEST REASON FOR EXAM: Female, 68 years old. Elevated ddimer RADIATION DOSAGE (If Supplied By Facility): CTDIvol = ( 10 ) mGy, DLP = ( 401.7 ) mGycm TECHNIQUE: The examination was performed with the intravenous administration of IV 100mL [id number]-300. Post-processing of the angiographic images was performed, with multiplanar reformation and 3D reconstruction. Individualized dose optimization techniques were used for this CT. COMPARISON: Comparison is made with prior chest radiograph done earlier today and prior CT scan of the thorax dated March 07, 2022. FINDINGS: Normal enhancement of the main pulmonary artery and right and left pulmonary arteries. Normal enhancement of the bilateral peripheral pulmonary arteries. There is no demonstrated pulmonary embolism. There is atherosclerotic calcification of the aortic arch with tortuosity. There is no demonstrated aortic dissection. There are calcifications of the coronary arteries. Normal mediastinum. Normal hilar regions. Normal visualized trachea and bronchi. The lungs are well expanded. Mild increased markings at the lung bases suggesting bibasilar atelectasis worse on the right side. Small right pleural effusion. Normal chest wall structures. There are degenerative changes of thoracic spine. Multiple gallstones are seen in the gallbladder lumen. CT/CTA Chest W/WO Contrast IMPRESSION: No evidence of pulmonary embolism. Findings suggestive of bibasilar atelectasis with small right pleural effusion. Electronically Signed: Tacho Russell MD at 14:49 EDT ,
--- NOTE | 2024-06-10 10:26 | PCM.CONS.R ---
Assessment & Plan Assessment/Plan (1) ESRD (end stage renal disease) on dialysis: (2) Acute hypoxic respiratory failure: (3) Anemia of chronic disease: PLAN: Plan This is a pleasant unfortunate 68-year-old female with past medical history significant for ESRD, coronary artery disease with recent multiple admissions to the hospital for acute exacerbation of chronic systolic heart failure, pneumonia. Patient is compliant with dialysis. She last dialyzed Friday at the kidney center. She typically does not have large fluid gains between HD sessions and of recent when attempting to remove extra fluid during HD patient develops significant cramping with dialysis and/or projectile vomiting towards end of treatment. Recently EDW has been lowered at least 3 kg. Her current EDW 72 kg. Patient is dialyzing now and we are attempting to remove at least 3 to 4 L of fluid if patient can tolerate with dialysis today. Will evaluate for dialysis/fluid removal tomorrow and again for Friday. Patient has known history of severe triple-vessel coronary artery disease apparently not candidate for bypass graft surgery. Previous admission patient was seen by cardiology who suggested another option could be high risk multivessel PCI, needing heart team approach specific for patient. Discussed with Dr. Alonzo. Further orders forthcoming as hospitalization evolves, thank you for allowing us participate in the care of Ms. Chaidez. HPI Consult Data Date of Consult: 06/10/24 HPI Narrative HPI Narrative: NATALI CHAIDEZ, is a 68 F with past medical history significant for ESRD on hemodialysis Friday at [facility] [place], last dialyzed Friday who presented emergency room with complaints of shortness of breath and feeling unwell, admitted for acute exacerbation of chronic systolic heart failure, chest x-ray showing vascular congestion, patient was placed on BiPAP and admitted. Patient has past medical history significant for significant triple-vessel coronary artery disease apparently not a candidate for CABG. Patient has had recurrent hospitalizations over the past few weeks admitted for acute on chronic hypoxic respiratory failure multifactorial from pneumonia, COPD and heart failure. Patient is compliant with dialysis and usually does not have large fluid gains between her dialysis session. Over the last few weeks her dry weight has been lowered. [facility] Medical History CAD (coronary artery disease) (HFpEF) heart failure with preserved ejection fraction Acute respiratory failure with hypoxia Alcohol use Wears dentures Shingles outbreak Arthritis Dietary restriction Normal Holter exam History of echocardiogram Cardiology follow-up encounter History of heart attack CHF (congestive heart failure) Severe protein-calorie malnutrition Malnutrition of moderate degree COPD (chronic obstructive pulmonary disease) Substance abuse Dialysis patient GI bleed Hepatitis Hypertension History of hypertension Chronic progressive renal failure TIA (transient ischemic attack) End-stage renal disease on hemodialysis PONV (postoperative nausea and vomiting) Post-menopausal Wears glasses Ambulates with cane High cholesterol Easy bruising Edentulous Gastric reflux On home oxygen therapy Former smoker Shortness of breath on exertion Leg cramps Hyponatremia ESRD (end stage renal disease) on dialysis Acute and chronic respiratory failure with hypoxia Chronic kidney disease, stage V requiring chronic dialysis Cardiac dysrhythmia, unspecified NSTEMI, initial episode of care Anemia Asthma Stroke Diabetes Rheumatoid arthritis Type II diabetes mellitus Hypertension Home Medications ?Medication ?Instructions ?Recorded ?Last Taken ?Type calcium acetate(phosphat bind) 667 2 cap PO TID SUPPLEMENT 03/07/22 05/09/24 History mg capsule cinacalcet 30 mg tablet 30 mg PO DAILY DIALYSIS 09/19/22 05/09/24 History sevelamer carbonate 800 mg tablet 800 mg PO TID DIALYSIS 01/28/23 05/09/24 History diclofenac sodium 1 % topical gel 2 g topical ONCE PRN ARTHRITIS 10/03/23 11/24/23 History (Voltaren Arthritis Pain) amlodipine 10 mg tablet 10 mg PO DAILY BLOOD PRESSURE #7 02/13/24 05/10/24 Rx tabs aspirin 81 mg tablet,delayed See Rx Instructions .Route 05/20/24 Unknown Rx release .COMPLEX #90 tabs atorvastatin 80 mg tablet 80 mg PO QHS CHOLESTEROL #30 tabs 05/20/24 Unknown Rx carvedilol 12.5 mg tablet 12.5 mg PO BID blood pressure 05/20/24 Unknown History clopidogrel 75 mg tablet 75 mg PO DAILY BLOOD THINNER #30 05/20/24 Unknown Rx tabs guaifenesin 1,200 mg tablet, 1,200 mg PO BID cough 7 days #14 05/20/24 Unknown Rx extended release 12 hr (Mucus tabs Relief ER) hydralazine 25 mg tablet 25 mg PO TID 05/20/24 Unknown History multivitamin with folic acid 400 1 tab PO DAILY vitamin 05/20/24 Unknown History mcg tablet (Daily-Caron (with folic acid)) isosorbide dinitrate 20 mg tablet 20 mg PO BID heart #30 tabs 05/26/24 Unknown Rx ferrous sulfate 325 mg (65 mg 325 mg PO DAILY SUPPLEMENT #90 tabs 05/28/24 Unknown Rx iron) tablet (FeroSul) pantoprazole 40 mg tablet,delayed 40 mg PO BID #60 tabs 06/04/24 Unknown Rx release sucralfate 1 gram tablet 1 g PO .qid #120 tabs 06/04/24 Unknown Rx Allergy/AdvReac Type Severity Reaction Status Date / Time ceftriaxone Allergy Severe Rash Verified 06/10/24 04:05 vancomycin Allergy Unknown Rash Verified 06/10/24 04:05 Penicillins Allergy Swelling Verified 06/10/24 04:05 oxycodone HCl (From Percocet) AdvReac Intermediate Itching Verified 06/10/24 04:05 Family History Mother Hypertension Emphysema/COPD Sister Hypertension Surgical History S/P arteriovenous (AV) fistula creation History of arteriovenostomy for renal dialysis History of surgery History of eye surgery knee scope H/O: hysterectomy Social History Smoking Status: Former smoker alcohol intake: current details: 1 per week substance use type: does not use what type of physical activity do you participate in: none ROS ROS Narrative As in HPI Physical Exam Narrative Alert and oriented, lethargic, on BiPAP S1, S2, RRR Diminished coarse breath sounds with scattered rales Abdomen soft, nontender No edema Tunneled hemodialysis catheter accessed for hemodialysis Lab / Micro Data 06/10/24 04:27 06/10/24 04:27 Labs: Laboratory Results - last 24 hr 06/10/24 04:27: WBC 7.1, RBC 2.93 L, Hgb 8.7 L, Hct 28.1 L, MCV 95.9, MCH 29.7, MCHC 31.0 L, RDW Std Deviation 55.9 H, RDW Coeff of Dottie 16.0 H, Plt Count 155, MPV 9.7, Immature Gran % (Auto) 1.000 H, Neut % (Auto) 69.8, Lymph % (Auto) 18.7 L, Price % (Auto) 8.2, Eos % (Auto) 1.6, Baso % (Auto) 0.7, Absolute Neuts (auto) 4.9, Absolute Lymphs (auto) 1.32, Nucleated RBC % 0.3, Sodium 138, Potassium 4.3, Chloride 95 L, Carbon Dioxide 29.0, Anion Gap 13, BUN 27 H, Creatinine 6.62 H, Estim Creat Clear Calc 7.43, Est GFR (MDRD) Af Amer 8 L, Est GFR (MDRD) Non-Af 7 L, BUN/Creatinine Ratio 4.1 L, Glucose 190 H, Calcium 8.9, Phosphorus 5.4 H, Magnesium 2.3, B-Natriuretic Peptide 2084.1 H, Procalcitonin 0.83 H 06/10/24 07:57: D-Dimer Quant (PE/DVT) 2.51 H* Imaging Radiology Impression Chest X-Ray 06/10/24 04:17 IMPRESSION: Bilateral vascular congestion and CHF with possible superimposed bibasilar pneumonia. There has been no significant change since the previous study. Electronically Signed: Emigdio Graham MD at 4:50 EDT ,
[2024-06-10] MEDS: Nepro Liquid 120 ML LIQUID PO ×3 (12:17→21:20)
[2024-06-10] MEDS: Acetaminophen 325 MG Tablet 650 MG PO (12:17)
[2024-06-10] MEDS: FLU VACCINE **HIGH DOSE** TV 24-25 180 MCG/0.5 ML SYRINGE IM (12:17)
[2024-06-10] MEDS: Menthol/Lanolin/Calamine/Znox 113 GM Tube 1 APPLIC TOPICAL ×2 (12:19→21:26)
[2024-06-10] MEDS: 0.9% Saline Lock 10 ML Syringe IV (12:19)
[2024-06-10] MEDS: levoFLOXacin IV 750 MG/150 ML BAG 100 MG IV (12:19)
[2024-06-10] MEDS: guaiFENesin 1,200 MG Tablet 1200 MG PO ×2 (12:20→21:22)
[2024-06-10] MEDS: SEVELAMER CARBONATE 800 MG TABLET PO (12:20)
[2024-06-10] MEDS: Pantoprazole Sodium 40 MG Tablet PO ×2 (12:20→21:22)
[2024-06-10] MEDS: Furosemide 40 MG/4 ML Vial IV (12:20)
[2024-06-10] MEDS: Clopidogrel Bisulfate 75 MG Tablet PO (12:20)
[2024-06-10] MEDS: Ferrous Sulfate 325 MG Tablet PO (12:20)
[2024-06-10] MEDS: Sucralfate 1 GM Tablet PO ×2 (12:20→21:22)
[2024-06-10] MEDS: Heparin Injection (Vial) 5,000 UNIT/ML VIAL 5000 UNIT SC ×2 (12:20→21:22)
[2024-06-10] MEDS: Cinacalcet HCl 30 MG Tablet PO (12:20)
[2024-06-10] MEDS: Heparin 10,000 UNITS/10 ML Vial IV (12:23)
--- NOTE | 2024-06-10 12:30 | NURSING ---
All morning medications given late at this time due to dialysis
--- NOTE | 2024-06-10 13:59 | CASEMGMT ---
SW called [facility] and spoke with coverage line letting them know patient was admitted. Patient's rn case mgr is Shannon Castrejon. Patient has a life alert button, personal care aides from [place]. Fridays for 4 hours and Wednesdays 2 hours. [facility] also assists with transportation sometimes. Bekah SAMAYOA
[2024-06-10] MEDS: PureFlow B 3K Dialysis Soln 1 BAG 6 BAG PF (15:02)
[2024-06-10] MEDS: 0.9% Normal Saline 1,000 ML IV.SOLN. 1000 ML OPERA.SITE (15:02)
--- NOTE | 2024-06-10 15:02 | CASEMGMT ---
NIKKI CM chart review: Patient was admitted 05/18-05/20; 05/21-05/26; 05/31-06/04 for hypoxic respiratory failure related to COPD and CHF exacerbation. See assessment from 05/18. After most recent admission, patient was discharged to home with resumption of [facility], Palliative Care Consult, follow-up plans, family support, and patient was maintaining on home oxygen at 3lpm cont. Patient returned to [facility] ED on 06/10/24 for increased SOB and diarrhea. Patient was stating at 94% on 2lpm but was tachypneic and placed on bipap at 30%. Per nephrology PA, patient has been attending Outpatient HD regarding and patient does not have large fluid gains between HD sessions. Patient was scheduled to see PCP on 06/11. Patient is currently on bipap and unable to participate in assessment and conversation. CM will continue to monitor this patient and plan for a safe discharge.
[2024-06-10 16:16] LABS: Anion Gap 4 (5-15); BUN 7 mg/dL (7-18); BUN/Creat Ratio 7.4 RATIO (10-20); Chloride 106 mmol/L (98-107); Creatinine, Serum 0.94 mg/dL (0.55-1.02); EST Glomerular Filtration Rate 63 mL/min (>60); Est Glom Filt Rate - Afr Amer 76 mL/min (>60); Estimated Creatinine Clearance 51.97 ml/min; Glucose 107 mg/dL (74-106); Phosphorus 3.5 mg/dL (2.5-4.9); Sodium Level 137 mmol/L (136-145)
--- NOTE | 2024-06-10 18:13 | PCM.PN.HOSP ---
Reason for Visit Reason for Visit: Shortness of breath Subjective Subjective Patient is a 68-year-old HD dependent -Chinese female who presented to the emergency department [facility] early on the morning of 06/10/2024 with shortness of breath and diarrhea. She has had multiple recent admissions due to volume overload and per discussion with nephrology is compliant with her diet and even on her long stretch from Friday to Friday when she is off dialysis she typically only gains about 1 kg. She did have an NSTEMI in 2022 and was found to have triple-vessel disease but is not a candidate for CABG it is unclear if she would be a candidate for high risk PCI. She was discharged here on 06/04/2024 when she presented for acute on chronic systolic heart failure. Patient was recently prescribed antibiotics and has been compliant with her home medications what her shortness of breath continue to worsen to the point where she was having difficulty breathing. She was not able to sleep due to shortness of breath so she decided to call EMS. Patient wears chronic 2 L nasal cannula. Vital signs on presentation showed temperature of 97.5, heart rate 112, respiratory 28, blood pressure was 140/115 and pulse ox was 96% on 4 L nasal cannula. She was placed on BiPAP at which time her heart rate improved as did her blood pressure. CBC shows a normal white count with no left shift. She has a hemoglobin which is stable at 8.7. A D-dimer was obtained and found to be elevated at 2.51 for which we obtained a CTA of her chest and it was unremarkable for PE or dissection but is consistent with volume overload. BNP was taken however I suspect this is not her BMP as her creatinine is normal at 0.9 and even when she is dialyzed she appears to have a baseline creatinine in the sixes. Will repeat in the a.m. Patient was dialyzed today. She did have a modified barium swallow at her last hospitalization at which time they assessed her for aspiration she was found to only have mild oropharyngeal dysphagia and was recommended to continue regular textures with easy to chew and thin liquids. She did have a recent echocardiogram on 05/21/2024 at which time she had a normal EF with no regional wall motion abnormalities, mild focal mitral valve calcification and mild to moderate eccentric mitral valve insufficiency. Strep pneumo and Legionella antigens were unremarkable. She was complaining of diarrhea so enteric panel and C. difficile were ordered however not yet been collected as she has not had any loose stool since arrival. She was admitted to PCU on BiPAP and urgent dialysis was ordered. Upon review it appears that she has multiple time been offered PCI here and has declined. I will consult cardiology for assistance in reviewing the data and seeing if she would benefit from complex PCI either here or more likely at tertiary center as I am wondering if this would help her respiratory status. Will check COVID/flu/respiratory viral panel/RSV. Objective Data Objective Data Vital Signs: Vital Signs Temp Pulse Resp BP Pulse Ox O2 Del Method O2 Flow Rate 97.8 F 93 22 H 119/75 97 Nasal Cannula 2 06/10/24 12:30 06/10/24 12:50 06/10/24 12:50 06/10/24 12:30 06/10/24 12:50 06/10/24 14:00 06/10/24 14:00 FiO2 30 06/10/24 12:50 Oxygen Flow Rate (L/min) 2 Oxygen Delivery Method Nasal Cannula Weight: 68.1 kg Body Mass Index (BMI) 28.3 Intake & Output: Intake and Output for Last 24 Hours 06/08/24 06/09/24 06/10/24 23:59 23:59 23:59 Intake Total 150 / 150 Output Total 3200 / 3200 Balance -3050 / -3050 Lab / Micro Data 06/10/24 04:27 06/10/24 04:27 Labs: Laboratory Results - last 24 hr 06/10/24 04:27: WBC 7.1, RBC 2.93 L, Hgb 8.7 L, Hct 28.1 L, MCV 95.9, MCH 29.7, MCHC 31.0 L, RDW Std Deviation 55.9 H, RDW Coeff of Dottie 16.0 H, Plt Count 155, MPV 9.7, Immature Gran % (Auto) 1.000 H, Neut % (Auto) 69.8, Lymph % (Auto) 18.7 L, Foard % (Auto) 8.2, Eos % (Auto) 1.6, Baso % (Auto) 0.7, Absolute Neuts (auto) 4.9, Absolute Lymphs (auto) 1.32, Nucleated RBC % 0.3, Sodium 137, Potassium 4.0, Chloride 106, Carbon Dioxide 27.0, Anion Gap 4 L, BUN 7, Creatinine 0.94, Estim Creat Clear Calc 51.97, Est GFR (MDRD) Af Amer 76, Est GFR (MDRD) Non-Af 63, BUN/Creatinine Ratio 7.4 L, Glucose 107 H, Calcium 10.0, Phosphorus 3.5, Magnesium 2.0, B-Natriuretic Peptide 2084.1 H, Procalcitonin 0.83 H 06/10/24 07:57: D-Dimer Quant (PE/DVT) 2.51 H* Radiography Diagnostic Testing: Radiology Impression Chest X-Ray 06/10/24 04:17 IMPRESSION: Bilateral vascular congestion and CHF with possible superimposed bibasilar pneumonia. There has been no significant change since the previous study. Electronically Signed: Emigdio Graham MD at 4:50 EDT , Chest X-Ray 06/10/24 07:35 IMPRESSION: Improved aeration of both lungs with mild residual vascular congestion CHF. Questionable right apical pneumothorax although I think this represents a skin line. A repeat frontal radiograph without rotation is recommended. Electronically Signed: Tacho Russell MD at 14:14 EDT , Chest CTA 06/10/24 09:05 IMPRESSION: No evidence of pulmonary embolism. Findings suggestive of bibasilar atelectasis with small right pleural effusion. Electronically Signed: Tacho Russell MD at 14:49 EDT ,
[2024-06-10] MEDS: Atorvastatin Calcium 80 MG Tablet PO (21:22)
[2024-06-11] VITALS (10 sets, daily range): BP systolic 103–120; BP diastolic 40–84; PULSE 69–81; RESP 12–21; TEMP 36.2–37.2; O2SAT 30–100; BMI 28.3
[2024-06-11] MEDS: Acetaminophen 325 MG Tablet 650 MG PO ×3 (03:26→20:46)
[2024-06-11] MEDS: Sucralfate 1 GM Tablet PO ×4 (06:33→20:45)
[2024-06-11 07:31] LABS: Absolute Lymphocyte Count 0.98 X10^3/uL (0.83-4.51); Absolute Neutrophil Count 2.1 X10^3/uL (2.0-7.7); Basophil# 0.02 X10^3/uL; Basophil% 0.5 % (0-1); Eosinophil# 0.05 X10^3/uL; Eosinophils% 1.4 % (0-5); Hematocrit 23.3 % (37-47); Hemoglobin 7.2 g/dL (12.0-15.0); Lymphocyte # 0.98 X10^3/ul (0.83-4.51); Lymphocyte % 26.9 % (19-41); Mean Corp Hgb Conc 30.9 g/dL (32-36); Mean Corpuscular Hgb 29.3 pg (27.0-32.0); Mean Corpuscular Volume 94.7 fL (81-99); Monocyte# 0.43 X10^3/uL; Monocyte% 11.8 % (0-10); NRBC Flagged by Analyzer 2.2 % (0-5); Neutrophil # 2.08 X10^3/uL (2.7-7.7); Neutrophil % 57.2 % (47-70); Platelet Count 149 K/mm3 (150-450); Red Blood Count 2.46 M/mm3 (4.2-5.4); White Blood Count 3.6 K/mm3 (4.4-11.0)
[2024-06-11 08:16] LABS: ALB/GLOB Ratio 0.7 RATIO (0.9-2.4); AST(SGOT) 751 U/L (15-37); Alanine Aminotransfer ALT/SGPT 234 U/L (13-56); Albumin, Serum 2.6 g/dL (3.2-5.0); Alkaline Phosphatase 168 U/L (45-117); Anion Gap 8 (5-15); BUN 34 mg/dL (7-18); Calcium,Total 7.8 mg/dL (8.5-10.1); Chloride 99 mmol/L (98-107); Creatinine, Serum 5.66 mg/dL (0.55-1.02); EST Glomerular Filtration Rate 8 mL/min (>60); Est Glom Filt Rate - Afr Amer 10 mL/min (>60); Estimated Creatinine Clearance 8.62 ml/min; Globulin 3.9 g/dL (2.2-4.2); Glucose 78 mg/dL (74-106); Magnesium 2.2 mg/dL (1.6-2.6); Phosphorus 2.9 mg/dL (2.5-4.9); Potassium 3.4 mmol/L (3.5-5.1); Protein, Total 6.5 g/dL (6.4-8.2); Sodium Level 136 mmol/L (136-145); Thyroid Stim Hormone (TSH) 0.607 uIU/mL (0.358-3.740)
[2024-06-11] MEDS: Nepro Liquid 120 ML LIQUID PO ×2 (08:47→12:47)
[2024-06-11] MEDS: Heparin Injection (Vial) 5,000 UNIT/ML VIAL 5000 UNIT SC ×2 (08:47→20:44)
[2024-06-11] MEDS: Pantoprazole Sodium 40 MG Tablet PO ×2 (08:47→20:45)
[2024-06-11] MEDS: Ferrous Sulfate 325 MG Tablet PO (08:47)
[2024-06-11] MEDS: SEVELAMER CARBONATE 800 MG TABLET PO ×2 (08:47→12:45)
[2024-06-11] MEDS: Cinacalcet HCl 30 MG Tablet PO (08:48)
[2024-06-11] MEDS: Calcium Acetate 667 MG Capsule 1334 MG PO ×2 (08:48→12:45)
[2024-06-11] MEDS: guaiFENesin 1,200 MG Tablet 1200 MG PO ×2 (08:48→20:46)
[2024-06-11] MEDS: Clopidogrel Bisulfate 75 MG Tablet PO (08:49)
[2024-06-11] MEDS: Menthol/Lanolin/Calamine/Znox 113 GM Tube 1 APPLIC TOPICAL ×2 (08:49→20:50)
[2024-06-11 08:57] LABS: BNP,B-Type NATRIURETIC PEPTIDE 1034.9 pg/mL (0-100)
[2024-06-11 10:18] LABS: Hemoglobin 7.8 g/dL (12.0-15.0)
--- NOTE | 2024-06-11 15:21 | CON.PCM.CA_ITS ---
<Statement entered by Remigio Strickland MD - 06/11/24 16:52> Pt seen & evaluated w/KRISHNA. I personally interviewed & exam the pt. I was involved in all aspects of pt's orders, interpretation of results & treatment Assessment & Plan Assessment/Plan (1) CAD (coronary artery disease): PLAN: Patient's previous angiography from January 2023 was reviewed. She has severe triple-vessel calcific coronary artery disease. Ideally that should be treated with coronary artery bypass graft surgery. However I doubt that the patient is a good risk for CABG. The second best option would be high risk multi vessel PCI, probably to the LAD and RCA. Would recommend that she be transferredd back to [facility] to have this re-evaluated. Fell that her heart failure is related to ischemia despite medical therapy and that she will keep returning to the hospital for heart failure This was discussed with Grandson who is her POA. He is not ready to make her hospice and is agreeable to transfer. (2) (HFpEF) heart failure with preserved ejection fraction: QUALIFIERS: Heart failure chronicity: acute Qualified Code(s): I 50.31 - Acute diastolic (congestive) heart failure PLAN: Patient is a dialysis patient. see #1 feel that this is related to ischemia with her continued readmits. (3) Hypertension: QUALIFIERS: Hypertension type: primary hypertension Qualified Code(s): I10 - Essential (primary) hypertension PLAN: Beta-blockers, nitrates, calcium channel blockers (4) End stage renal disease: PLAN: On hemodialysis. (5) Anemia of chronic disease: PLAN: this complicated #1 HPI Consult Data Date of Consult: 06/11/24 HPI Narrative HPI Narrative: NATALI KINSEY, is a 68 F who presented to [facility] for concerns of shortness of breath and diarrhea. She does have a past medical history significant for hypertension, hyperlipidemia, diabetes type 2, end-stage renal disease on dialysis, coronary artery disease, non-STEMI in 2022 with triple-vessel disease but it was felt patient was not a candidate for a CABG, chronic diastolic heart failure with preserved ejection fraction, history of TIA, history of tobacco abuse quit in 2000, asthma COPD, chronic hypoxic respiratory failure on O2, history of substance abuse, history of hepatitis, peripheral vascular disease, chronic anemia, history of GI bleed. She had an admission here May 31 to 20 for acute on chronic just of heart failure with preserved EF, chest pain, superimposed on pneumonia. Her troponin was noted to be elevated however it is chronically elevated. In reviewing her notes she was also hospitalized earlier in May for a non-STEMI. It was felt that it was also related to demand ischemia from her fluid overload state. She noted that she had became progressively short of breath over the last 10 days. She could not sleep because she was too short of breath. She was felt again have acute on chronic congestive heart failure with preserved EF. Patient was started on a BiPAP and placed in PCU. In 2022 she did undergo a diagnostic heart catheterization. she was transferred to [facility] and was found to be high risk for a surgical candidate and not a candidate for a high risk PCI so aggressive medical management was recommended. Patient states that she has been short of breath. She does feel better being on oxygen. She also does have continued chest discomfort. She does have bilateral leg pain. She does not have any swelling. She does not have any palpitations that she is aware of. She is fatigued. In the past it has been discussed about palliative care. [facility] Medical History CAD (coronary artery disease) (HFpEF) heart failure with preserved ejection fraction Acute respiratory failure with hypoxia Alcohol use Wears dentures Shingles outbreak Arthritis Dietary restriction Normal Holter exam History of echocardiogram Cardiology follow-up encounter History of heart attack CHF (congestive heart failure) Severe protein-calorie malnutrition Malnutrition of moderate degree COPD (chronic obstructive pulmonary disease) Substance abuse Dialysis patient GI bleed Hepatitis Hypertension History of hypertension Chronic progressive renal failure TIA (transient ischemic attack) End-stage renal disease on hemodialysis PONV (postoperative nausea and vomiting) Post-menopausal Wears glasses Ambulates with cane High cholesterol Easy bruising Edentulous Gastric reflux On home oxygen therapy Former smoker Shortness of breath on exertion Leg cramps Hyponatremia ESRD (end stage renal disease) on dialysis Acute and chronic respiratory failure with hypoxia Chronic kidney disease, stage V requiring chronic dialysis Cardiac dysrhythmia, unspecified NSTEMI, initial episode of care Anemia Asthma Stroke Diabetes Rheumatoid arthritis Type II diabetes mellitus Hypertension Home Medications ?Medication ?Instructions ?Recorded ?Last Taken ?Type calcium acetate(phosphat bind) 667 2 cap PO TID SUPPLEMENT 03/07/22 05/09/24 History mg capsule cinacalcet 30 mg tablet 30 mg PO DAILY DIALYSIS 09/19/22 05/09/24 History sevelamer carbonate 800 mg tablet 800 mg PO TID DIALYSIS 01/28/23 05/09/24 History diclofenac sodium 1 % topical gel 2 g topical ONCE PRN ARTHRITIS 10/03/23 11/24/23 History (Voltaren Arthritis Pain) amlodipine 10 mg tablet 10 mg PO DAILY BLOOD PRESSURE #7 02/13/24 05/10/24 Rx tabs aspirin 81 mg tablet,delayed See Rx Instructions .Route 05/20/24 Unknown Rx release .COMPLEX #90 tabs atorvastatin 80 mg tablet 80 mg PO QHS CHOLESTEROL #30 tabs 05/20/24 Unknown Rx carvedilol 12.5 mg tablet 12.5 mg PO BID blood pressure 05/20/24 Unknown History clopidogrel 75 mg tablet 75 mg PO DAILY BLOOD THINNER #30 05/20/24 Unknown Rx tabs guaifenesin 1,200 mg tablet, 1,200 mg PO BID cough 7 days #14 05/20/24 Unknown Rx extended release 12 hr (Mucus tabs Relief ER) hydralazine 25 mg tablet 25 mg PO TID 05/20/24 Unknown History multivitamin with folic acid 400 1 tab PO DAILY vitamin 05/20/24 Unknown History mcg tablet (Daily-Caron (with folic acid)) isosorbide dinitrate 20 mg tablet 20 mg PO BID heart #30 tabs 05/26/24 Unknown Rx ferrous sulfate 325 mg (65 mg 325 mg PO DAILY SUPPLEMENT #90 tabs 05/28/24 Unknown Rx iron) tablet (FeroSul) pantoprazole 40 mg tablet,delayed 40 mg PO BID #60 tabs 06/04/24 Unknown Rx release sucralfate 1 gram tablet 1 g PO .qid #120 tabs 06/04/24 Unknown Rx Allergy/AdvReac Type Severity Reaction Status Date / Time ceftriaxone Allergy Severe Rash Verified 06/10/24 04:05 vancomycin Allergy Unknown Rash Verified 06/10/24 04:05 Penicillins Allergy Swelling Verified 06/10/24 04:05 oxycodone HCl (From Percocet) AdvReac Intermediate Itching Verified 06/10/24 04:05 Family History Mother Hypertension Emphysema/COPD Sister Hypertension Surgical History S/P arteriovenous (AV) fistula creation History of arteriovenostomy for renal dialysis History of surgery History of eye surgery knee scope H/O: hysterectomy Social History Smoking Status: Former smoker alcohol intake: current details: 1 per week substance use type: does not use what type of physical activity do you participate in: none Addt'l Information Additional Findings: Cardiac Cath 01/2023: Left main is calcified with extension of calcification through the LAD left circumflex and ramus intermedius Angiographically the distal left main had around 40 to 50% stenosis and is calcified Trifurcated into LAD, ramus intermedius and left circumflex Left anterior descending is a large vessel, reaches all the way to the apex Angiographically proximal mid and distal LAD is calcified With the mid LAD had an eccentric calcified lesion of around 70% Ostial large D1 had a 60% stenosis it is a large artery which branching vessel The distal LAD had no significant atherosclerosis. Ramus intermedius is moderate to large size vessel ostial ramus intermedius at around 5060% stenosis Left circumflex is small to moderate in size with subtotal ostial and proximal left circumflex artery 99% And collaterals noted from the distal part of the LAD into the distal part of the left circumflex artery RCA is dominant with diffuse mid RCA atherosclerosis of around 70% ROS ROS Narrative As in HPI Physical Exam Const alert and oriented x3 Constitutional Narrative: Thin, frail on O2 and or Bipap HEENT normocephalic, head/scalp atraumatic, hearing grossly normal bilaterally and nasal mucous membranes and turbinates normal Eyes PERRL and EOMs intact bilaterally Chest Chest Narrative: diminished Cardio regular rate, regular rhythm, S1 normal heart sound and S2 normal heart sound Cardio Narrative: Heart Sounds: murmur systolic II/ soft GI normal to inspection, nondistended, normoactive bowel sounds Extremity Extremity Narrative: diminished bilateral Risk Stratification Risk Stratification Applicable: Yes Age >/= 65: Yes >/= 3 CAD Risk Factors (HTN, HLD, DM, family hx of CAD, or current smoker): Yes Aspirin Use in the Past 7 Days: Yes Severe Angina (>/= episodes in 24 hours): Yes EKG ST Changes >/= 0.5mm: No Positive Cardiac Marker: No SHA Risk Stratification Score: 4 SHA % Risk: 20% Risk Charges/Coding Multi Select Codes Visit Charges Office Visit/Consults: 56875 IP Consult L4 Objective Data Vital Signs: Vital Signs Temp Pulse Resp BP Pulse Ox O2 Del Method O2 Flow Rate 97.2 F L 77 20 H 116/43 L 100 Bi-pap 3 06/11/24 14:45 06/11/24 14:45 06/11/24 14:45 06/11/24 14:45 06/11/24 14:45 06/11/24 14:45 06/11/24 14:53 FiO2 30 06/11/24 14:45 Oxygen Flow Rate (L/min) 3 Oxygen Delivery Method Bi-pap Weight: 149 lb 14.629 oz Body Mass Index (BMI) 28.3 Intake & Output: Intake and Output for Last 24 Hours 06/09/24 06/10/24 06/11/24 23:59 23:59 23:59 Intake Total 380 / 380 100 / 100 Output Total 3200 / 3200 0 / 0 Balance -2820 / -2820 100 / 100 Lab / Micro Data 06/11/24 10:04 06/11/24 06:27 Labs: Laboratory Results - last 24 hr 06/10/24 04:27: Sodium 137, Potassium 4.0, Chloride 106, Carbon Dioxide 27.0, A nion Gap 4 L, BUN 7, Creatinine 0.94, Estim Creat Clear Calc 51.97, Est GFR (MDRD) Af Amer 76, Est GFR (MDRD) Non-Af 63, BUN/Creatinine Ratio 7.4 L, Glucose 107 H, Calcium 10.0, Phosphorus 3.5, Magnesium 2.0 06/11/24 06:27: WBC 3.6 L, RBC 2.46 L, Hgb 7.2 L, Hct 23.3 L, MCV 94.7, MCH 29.3, MCHC 30.9 L, RDW Std Deviation 55.0 H, RDW Coeff of Dottie 16.0 H, Plt Count 149 L, MPV 10.0, Immature Gran % (Auto) 2.200 H, Neut % (Auto) 57.2, Lymph % (Auto) 26.9, [place] % (Auto) 11.8 H, Eos % (Auto) 1.4, Baso % (Auto) 0.5, Absolute Neuts (auto) 2.1, Absolute Lymphs (auto) 0.98, Nucleated RBC % 2.2, Sodium 136, Potassium 3.4 L, Chloride 99, Carbon Dioxide 30.0, Anion Gap 8, BUN 34 H, C reatinine 5.66 H, Estim Creat Clear Calc 8.62, Est GFR (MDRD) Af Amer 10 L, Est GFR (MDRD) Non-Af 8 L, BUN/Creatinine Ratio 6.0 L, Glucose 78, Calcium 7.8 L, Phosphorus 2.9, Magnesium 2.2, Total Bilirubin 1.60 H, AST 751 H, ALT 234 H, A lkaline Phosphatase 168 H, B-Natriuretic Peptide 1034.9 H, Total Protein 6.5, A lbumin 2.6 L, Globulin 3.9, Albumin/Globulin Ratio 0.7 L, TSH 0.607 06/11/24 10:04: Hgb 7.8 L Micro: Microbiology 06/10/24 22:00 Stool Enteric Bacteriology - Final 06/10/24 22:00 Stool Clostridioides difficile (PCR) - Final 06/10/24 19:00 Mucosa - Nasopharyngeal Respiratory Panel (PCR) - Final 06/10/24 18:30 Mucosa - Nose SARS-CoV-2, Influenza & RSV (PCR) - Final Cardiology Labs/Tests 06/10/24 04:27: Sodium 137, Potassium 4.0, Chloride 106, Carbon Dioxide 27.0, A nion Gap 4 L, BUN 7, Creatinine 0.94, Est GFR (MDRD) Af Amer 76, Est GFR (MDRD) Non-Af 63, BUN/Creatinine Ratio 7.4 L, Glucose 107 H, Calcium 10.0, Phosphorus 3.5, Magnesium 2.0 06/11/24 06:27: WBC 3.6 L, RBC 2.46 L, Hgb 7.2 L, Hct 23.3 L, MCV 94.7, MCH 29.3, MCHC 30.9 L, Plt Count 149 L, MPV 10.0, Immature Gran % (Auto) 2.200 H, Neut % (Auto) 57.2, Lymph % (Auto) 26.9, [place] % (Auto) 11.8 H, Eos % (Auto) 1.4, Baso % (Auto) 0.5, Absolute Neuts (auto) 2.1, Nucleated RBC % 2.2, Sodium 136, P otassium 3.4 L, Chloride 99, Carbon Dioxide 30.0, Anion Gap 8, BUN 34 H, C reatinine 5.66 H, Est GFR (MDRD) Af Amer 10 L, Est GFR (MDRD) Non-Af 8 L, B UN/Creatinine Ratio 6.0 L, Glucose 78, Calcium 7.8 L, Phosphorus 2.9, Magnesium 2.2, Total Bilirubin 1.60 H, B-Natriuretic Peptide 1034.9 H 06/11/24 10:04: Hgb 7.8 L Rhythm: EKG: ECHO 05/2024: The left ventricular ejection fraction is 55 %. Mild focal mitral valve calcification. Mild-Moderate (1-2+) eccentric mitral valve insufficiency.
[2024-06-11] MEDS: 0.9% Saline Lock 10 ML Syringe IV (17:34)
[2024-06-11] MEDS: Ondansetron 4 MG/2 ML Vial IV (17:34)
--- NOTE | 2024-06-11 19:22 | PN.RENAL_ITS ---
Subjective Subjective no new events. on bipap Objective Data Objective Data Vital Signs: Vital Signs Temp Pulse Resp BP Pulse Ox O2 Del Method O2 Flow Rate 97.2 F L 77 20 H 116/43 L 100 Bi-pap 3 06/11/24 14:45 06/11/24 14:45 06/11/24 14:45 06/11/24 14:45 06/11/24 14:45 06/11/24 14:45 06/11/24 14:53 FiO2 30 06/11/24 14:45 Oxygen Flow Rate (L/min) 3 Oxygen Delivery Method Bi-pap Weight: 68 kg Body Mass Index (BMI) 28.3 Intake & Output: Intake and Output for Last 24 Hours 06/09/24 06/10/24 06/11/24 23:59 23:59 23:59 Intake Total 380 / 380 100 / 100 Output Total 3200 / 3200 0 / 0 Balance -2820 / -2820 100 / 100 Lab / Micro Data 06/11/24 10:04 06/11/24 06:27 Labs: Laboratory Results - last 24 hr 06/11/24 06:27: WBC 3.6 L, RBC 2.46 L, Hgb 7.2 L, Hct 23.3 L, MCV 94.7, MCH 29.3, MCHC 30.9 L, RDW Std Deviation 55.0 H, RDW Coeff of Dottie 16.0 H, Plt Count 149 L, MPV 10.0, Immature Gran % (Auto) 2.200 H, Neut % (Auto) 57.2, Lymph % (Auto) 26.9, [place] % (Auto) 11.8 H, Eos % (Auto) 1.4, Baso % (Auto) 0.5, Absolute Neuts (auto) 2.1, Absolute Lymphs (auto) 0.98, Nucleated RBC % 2.2, Sodium 136, Potassium 3.4 L, Chloride 99, Carbon Dioxide 30.0, Anion Gap 8, BUN 34 H, C reatinine 5.66 H, Estim Creat Clear Calc 8.62, Est GFR (MDRD) Af Amer 10 L, Est GFR (MDRD) Non-Af 8 L, BUN/Creatinine Ratio 6.0 L, Glucose 78, Calcium 7.8 L, Phosphorus 2.9, Magnesium 2.2, Total Bilirubin 1.60 H, AST 751 H, ALT 234 H, A lkaline Phosphatase 168 H, B-Natriuretic Peptide 1034.9 H, Total Protein 6.5, A lbumin 2.6 L, Globulin 3.9, Albumin/Globulin Ratio 0.7 L, TSH 0.607 06/11/24 10:04: Hgb 7.8 L Micro: Microbiology 06/10/24 22:00 Stool Enteric Bacteriology - Final 06/10/24 22:00 Stool Clostridioides difficile (PCR) - Final 06/10/24 19:00 Mucosa - Nasopharyngeal Respiratory Panel (PCR) - Final 06/10/24 18:30 Mucosa - Nose SARS-CoV-2, Influenza & RSV (PCR) - Final Physical Exam Narrative Alert and oriented, lethargic, on BiPAP S1, S2, RRR Diminished coarse breath sounds with scattered rales Abdomen soft, nontender No edema Tunneled hemodialysis catheter accessed for hemodialysis Assessment & Plan Assessment/Plan (1) ESRD (end stage renal disease) on dialysis: (2) Acute hypoxic respiratory failure: (3) Anemia of chronic disease: PLAN: Plan This is a pleasant unfortunate 68-year-old female with past medical history significant for ESRD, coronary artery disease with recent multiple admissions to the hospital for acute exacerbation of chronic systolic heart failure, pneumonia. Patient is compliant with dialysis. She last dialyzed Friday at the [facility] center. She typically does not have large fluid gains between HD sessions and of recent when attempting to remove extra fluid during HD patient develops significant cramping with dialysis and/or projectile vomiting towards end of treatment. HD tomorrow dw Dr mcgregor. we believe her cardiac status is poor to tolerate dialysis. plan is to transfer her to tertiary center for cardiac evaluation
--- NOTE | 2024-06-11 20:13 | PN.HOSP_ITS ---
Reason for Visit Reason for Visit: Shortness of breath Subjective Subjective Patient states she is a bit better today however intermittently still on and off BiPAP. We did discuss that we suspect this is due to ongoing cardiac ischemia and flash pulmonary edema. Plan is for transfer to the [facility]. Patient has been accepted and awaiting bed. Objective Data Objective Data Vital Signs: Vital Signs Temp Pulse Resp BP Pulse Ox O2 Del Method O2 Flow Rate 97.2 F L 77 20 H 116/43 L 100 Bi-pap 3 06/11/24 14:45 06/11/24 14:45 06/11/24 14:45 06/11/24 14:45 06/11/24 14:45 06/11/24 14:45 06/11/24 14:53 FiO2 30 06/11/24 14:45 Oxygen Flow Rate (L/min) 3 Oxygen Delivery Method Bi-pap Weight: 68 kg Body Mass Index (BMI) 28.3 Intake & Output: Intake and Output for Last 24 Hours 06/09/24 06/10/24 06/11/24 23:59 23:59 23:59 Intake Total 380 / 380 100 / 100 Output Total 3200 / 3200 0 / 0 Balance -2820 / -2820 100 / 100 Lab / Micro Data 06/11/24 10:04 06/11/24 06:27 Labs: Laboratory Results - last 24 hr 06/11/24 06:27: WBC 3.6 L, RBC 2.46 L, Hgb 7.2 L, Hct 23.3 L, MCV 94.7, MCH 29.3, MCHC 30.9 L, RDW Std Deviation 55.0 H, RDW Coeff of Dottie 16.0 H, Plt Count 149 L, MPV 10.0, Immature Gran % (Auto) 2.200 H, Neut % (Auto) 57.2, Lymph % (Auto) 26.9, [place] % (Auto) 11.8 H, Eos % (Auto) 1.4, Baso % (Auto) 0.5, Absolute Neuts (auto) 2.1, Absolute Lymphs (auto) 0.98, Nucleated RBC % 2.2, Sodium 136, Potassium 3.4 L, Chloride 99, Carbon Dioxide 30.0, Anion Gap 8, BUN 34 H, C reatinine 5.66 H, Estim Creat Clear Calc 8.62, Est GFR (MDRD) Af Amer 10 L, Est GFR (MDRD) Non-Af 8 L, BUN/Creatinine Ratio 6.0 L, Glucose 78, Calcium 7.8 L, Phosphorus 2.9, Magnesium 2.2, Total Bilirubin 1.60 H, AST 751 H, ALT 234 H, A lkaline Phosphatase 168 H, B-Natriuretic Peptide 1034.9 H, Total Protein 6.5, A lbumin 2.6 L, Globulin 3.9, Albumin/Globulin Ratio 0.7 L, TSH 0.607 06/11/24 10:04: Hgb 7.8 L Micro: Microbiology 06/10/24 22:00 Stool Enteric Bacteriology - Final 06/10/24 22:00 Stool Clostridioides difficile (PCR) - Final 06/10/24 19:00 Mucosa - Nasopharyngeal Respiratory Panel (PCR) - Final 06/10/24 18:30 Mucosa - Nose SARS-CoV-2, Influenza & RSV (PCR) - Final Physical Exam Const alert, oriented x3, no apparent distress and average body habitus; Negative for healthy appearing or well nourished Constitutional Narrative: Middle-aged, -[place] female, sitting up in bed, on BiPAP, able to converse on BiPAP and appears comfortable at this time, appears much older than stated age, nontoxic HEENT head/scalp atraumatic and moist oral mucous membranes Head and Scalp: normocephalic Eyes PERRL and EOMs intact bilaterally; Negative for conjunctivae normal Eyes Narrative: Conjunctiva are mildly pale bilaterally, no scleral icterus Neck no lymphadenopathy and supple Neck Narrative: Trachea midline, thyroid is not enlarged Resp no retractions and no use of accessory muscles Resp Narrative: Diffusely diminished with crackles noted at bases bilaterally, currently on BiPAP but not an extremis and appears comfortable Auscultation: Negative for crackles, rhonchi or wheezes Cardio regular rate, regular rhythm, S1 normal heart sound, S2 normal heart sound, no murmurs, no rub, no gallops and no clicks GI normal to inspection, nondistended, normoactive bowel sounds, soft to palpation and non-tender Extremity no clubbing, cyanosis or edema Extremity Narrative: Pedal pulses are 2+ Skin Skin Narrative: Dialysis catheter in right chest-clean dry and intact dressing, no tenderness or erythema Neuro oriented x3, moves all extremities and no focal motor deficits Speech: speech normal Psych affect normal Psych Narrative: Interacts appropriately, answers questions Assessment & Plan Assessment/Plan (1) Acute hypoxic respiratory failure: (2) Acute exacerbation of chronic heart failure: (3) Flash pulmonary edema: (4) CAD (coronary artery disease): QUALIFIERS: Coronary Disease-Associated Artery/Lesion type: [place] artery [place] vs. transplanted heart: [place] heart Associated angina: without angina Qualified Code(s): I25.10 - Atherosclerotic heart disease of [place] coronary artery without angina pectoris PLAN: Plan Acute hypoxic respiratory failure secondary to flash pulmonary edema -Continue dialysis per nephrology -Highly suspect this is related to ongoing cardiac ischemia due to diffuse severe triple-vessel coronary disease with ventricular stiffness from ischemia and resulting flash pulmonary edema -Patient does have preserved ejection fraction at this time -Continue BiPAP as needed -Continue supplemental oxygen via nasal cannula as needed -Will wean oxygen as able -Plan is to be transferred to tertiary center for evaluation of high risk percutaneous intervention to alleviate ischemia -If this is not able to be performed will likely need to have a discussion about hospice as patient has had 4 admissions all within the last 4 weeks for the same events Triple-vessel CAD/HFrEF/HTN/HPL -Patient has fairly severe CAD in the LAD, circumflex, and RCA -Transfer pending for evaluation of high risk PCI -Continue current medical therapy -Appreciate cardiology involvement and input History of GI bleed secondary to peptic ulcer disease -Treated via clipping and heater probe -Continue Protonix 40 mg p.o. twice daily -Continue Carafate -Hemoglobin is stable despite Plavix -Aspirin was held due to peptic ulcer disease with plans to restart on 06/19/2024 per GI Chronic anemia secondary to chronic renal disease -Hemoglobin stable and now at baseline when compared to previous prior to GI bleeding -Continue home iron End-stage renal disease on HD -Nephrology is following -HD per nephrology -Continue home sevelamer DM-2 -Diet controlled -Continue to monitor blood sugars History of TIA -Continue Plavix -Aspirin on hold until next week History of substance abuse -No signs of relapse -This was remote History of hepatitis C -Patient has completed treatment DVT prophylaxis -Continue subcu heparin CODE STATUS -Full code Charges/Coding Visit Charges Inpatient E&M: 53296 Subs Hosp L3
[2024-06-11] MEDS: Atorvastatin Calcium 80 MG Tablet PO (20:46)
[2024-06-12] VITALS (38 sets, daily range): BP systolic 96–173; BP diastolic 39–81; PULSE 64–86; RESP 12–24; TEMP 36–37.1; O2SAT 96–100; BMI 29.7; BMI 28.7
[2024-06-12] MEDS: Acetaminophen 325 MG Tablet 650 MG PO ×2 (02:56→20:02)
[2024-06-12] MEDS: Sucralfate 1 GM Tablet PO ×4 (06:06→20:05)
[2024-06-12 06:10] LABS: Hematocrit 23.1 % (37-47); Hemoglobin 7.1 g/dL (12.0-15.0); Mean Corp Hgb Conc 30.7 g/dL (32-36); Mean Corpuscular Hgb 29.2 pg (27.0-32.0); Mean Corpuscular Volume 95.1 fL (81-99); Platelet Count 171 K/mm3 (150-450); RBC Distribution Width SD 55.8 fl (35.1-43.9); Red Blood Count 2.43 M/mm3 (4.2-5.4); White Blood Count 4.4 K/mm3 (4.4-11.0)
[2024-06-12 06:53] LABS: Anion Gap 9 (5-15); BUN 45 mg/dL (7-18); BUN/Creat Ratio 5.8 RATIO (10-20); Calcium,Total 7.6 mg/dL (8.5-10.1); Chloride 98 mmol/L (98-107); Creatinine, Serum 7.71 mg/dL (0.55-1.02); EST Glomerular Filtration Rate 6 mL/min (>60); Est Glom Filt Rate - Afr Amer 7 mL/min (>60); Estimated Creatinine Clearance 6.49 ml/min; Glucose 89 mg/dL (74-106); Potassium 3.4 mmol/L (3.5-5.1); Sodium Level 137 mmol/L (136-145)
[2024-06-12] MEDS: 0.9% Normal Saline 1,000 ML IV.SOLN. 1000 ML OPERA.SITE (07:00)
[2024-06-12] MEDS: PureFlow B 3K Dialysis Soln 1 BAG 6 BAG PF (07:00)
[2024-06-12] MEDS: 0.9% Saline Lock 10 ML Syringe IV ×2 (07:01→09:38)
[2024-06-12] MEDS: Heparin 10,000 UNITS/10 ML Vial IV (09:38)
[2024-06-12] MEDS: Heparin Injection (Vial) 5,000 UNIT/ML VIAL 5000 UNIT SC ×2 (11:10→19:58)
[2024-06-12] MEDS: guaiFENesin 1,200 MG Tablet 1200 MG PO (11:11)
[2024-06-12] MEDS: Ferrous Sulfate 325 MG Tablet PO (11:11)
[2024-06-12] MEDS: Menthol/Lanolin/Calamine/Znox 113 GM Tube 1 APPLIC TOPICAL ×2 (11:11→20:02)
[2024-06-12] MEDS: Clopidogrel Bisulfate 75 MG Tablet PO (11:13)
[2024-06-12] MEDS: Pantoprazole Sodium 40 MG Tablet PO ×2 (11:13→20:04)
[2024-06-12] MEDS: Calcium Acetate 667 MG Capsule 1334 MG PO ×2 (11:14→16:55)
[2024-06-12] MEDS: Cinacalcet HCl 30 MG Tablet PO (11:14)
[2024-06-12] MEDS: SEVELAMER CARBONATE 800 MG TABLET PO ×2 (11:14→16:59)
[2024-06-12] MEDS: Potassium Chloride Oral Tablet 20 MEQ 40 MEQ PO (11:18)
[2024-06-12] MEDS: Nitroglycerin (INPATIENT USE) 0.4 MG TAB.SUBL SL ×3 (12:55→15:35)
--- NOTE | 2024-06-12 15:20 | PCM.PN.HOSP ---
Reason for Visit Reason for Visit: Shortness of breath Subjective Subjective Patient has been able to come off BiPAP and states she feels okay off BiPAP but likes to be on it while she is sleeping and resting. Is complaining of some chest pain. Hemoglobin this morning was 7.1 however that was predialysis in 2-1/2 L were removed. I will optimize her hemoglobin a little bit more and give her 2 units of packed red blood cells as I suspect with her severe coronary disease she would benefit from hemoglobin between 9 and 10 ultimately. Will give nitro x 1 to see if this helps with her chest pain at all. Still awaiting bed at [facility] Objective Data Objective Data Vital Signs: Vital Signs Temp Pulse Resp BP Pulse Ox O2 Del Method O2 Flow Rate 98.1 F 73 22 H 107/47 L 99 Bi-pap 3 06/12/24 14:57 06/12/24 14:57 06/12/24 14:57 06/12/24 14:57 06/12/24 14:57 06/12/24 14:57 06/12/24 03:05 FiO2 25 06/12/24 14:57 Oxygen Flow Rate (L/min) 3 Oxygen Delivery Method Bi-pap Weight: 69 kg Body Mass Index (BMI) 28.7 Intake & Output: Intake and Output for Last 24 Hours 06/10/24 06/11/24 06/12/24 23:59 23:59 23:59 Intake Total 380 / 380 160 / 160 60 / 60 Output Total 3200 / 3200 0 / 0 2430 / 2430 Balance -2820 / -2820 160 / 160 -2370 / -2370 Lab / Micro Data 06/12/24 05:30 06/12/24 05:30 Labs: Laboratory Results - last 24 hr 06/11/24 10:04: Blood Type A POSITIVE, Antibody Screen NEGATIVE, Crossmatch See Detail 06/12/24 05:30: WBC 4.4, RBC 2.43 L, Hgb 7.1 L, Hct 23.1 L, MCV 95.1, MCH 29.2, MCHC 30.7 L, RDW Std Deviation 55.8 H, RDW Coeff of Dottie 16.0 H, Plt Count 171, MPV 10.0, Sodium 137, Potassium 3.4 L, Chloride 98, Carbon Dioxide 29.0, Anion Gap 9, BUN 45 H, Creatinine 7.71 H*, Estim Creat Clear Calc 6.49, Est GFR (MDRD) Af Amer 7 L, Est GFR (MDRD) Non-Af 6 L, BUN/Creatinine Ratio 5.8 L, Glucose 89, Calcium 7.6 L Micro: Microbiology 06/10/24 22:00 Stool Enteric Bacteriology - Final 06/10/24 22:00 Stool Clostridioides difficile (PCR) - Final 06/10/24 19:00 Mucosa - Nasopharyngeal Respiratory Panel (PCR) - Final 06/10/24 18:30 Mucosa - Nose SARS-CoV-2, Influenza & RSV (PCR) - Final Physical Exam Const alert, oriented x3, no apparent distress and average body habitus; Negative for healthy appearing or well nourished Constitutional Narrative: Middle-aged, -[place] female, lying in bed in right side-lying, on BiPAP, able to converse on BiPAP and appears comfortable at this time, appears much older than stated age, nontoxic, nursing at bedside General Appearance: cooperative HEENT normocephalic, head/scalp atraumatic, hearing grossly normal bilaterally and moist oral mucous membranes Eyes Negative for conjunctivae normal Resp no retractions and no use of accessory muscles Resp Narrative: Diminished but clear, currently on BiPAP but not an extremis and appears comfortable Auscultation: Negative for crackles, rhonchi or wheezes Cardio regular rate, regular rhythm, S1 normal heart sound, S2 normal heart sound, no murmurs, no rub, no gallops and no clicks GI normal to inspection, nondistended, normoactive bowel sounds, soft to palpation and non-tender Extremity no clubbing, cyanosis or edema Extremity Narrative: Pedal pulses are 2+ Neuro oriented x3, moves all extremities and no focal motor deficits Speech: speech normal Psych affect normal Psych Narrative: Interacts appropriately, answers questions Mood & Affect: anxious Assessment & Plan Assessment/Plan (1) Acute hypoxic respiratory failure: (2) Acute exacerbation of chronic heart failure: (3) Flash pulmonary edema: (4) CAD (coronary artery disease): QUALIFIERS: Coronary Disease-Associated Artery/Lesion type: [place] artery [place] vs. transplanted heart: [place] heart Associated angina: without angina Qualified Code(s): I25.10 - Atherosclerotic heart disease of [place] coronary artery without angina pectoris PLAN: Plan Acute hypoxic respiratory failure secondary to flash pulmonary edema -Continue dialysis per nephrology -Highly suspect this is related to ongoing cardiac ischemia due to diffuse severe triple-vessel coronary disease with ventricular stiffness from ischemia and resulting flash pulmonary edema -Patient does have preserved ejection fraction at this time -Continue BiPAP as needed -Continue supplemental oxygen via nasal cannula as needed--> patient does well on 3 L without being too symptomatic however likes to be on BiPAP when she is resting -Plan is to be transferred to tertiary center for evaluation of high risk percutaneous intervention to alleviate ischemia -If this is not able to be performed will likely need to have a discussion about hospice as patient has had 4 admissions all within the last 4 weeks for the same events -Bed remains pending at [facility] Triple-vessel CAD/HFrEF/HTN/HPL -Patient has fairly severe CAD in the LAD, circumflex, and RCA -Transfer pending for evaluation of high risk PCI -Continue current medical therapy -Appreciate cardiology involvement and input -Transfuse blood and try to keep hemoglobin between 9 and 10 with severe ischemia -As needed nitro as patient is having intermittent chest pain I am hoping this improves with improved hemoglobin History of GI bleed secondary to peptic ulcer disease -Treated via clipping and heater probe -Continue Protonix 40 mg p.o. twice daily -Continue Carafate -Hemoglobin is stable despite Plavix -Aspirin was held due to peptic ulcer disease with plans to restart on 06/19/2024 per GI -No current signs of bleeding Chronic anemia secondary to chronic renal disease -Hemoglobin down this morning compared to yesterday however patient is due for dialysis and likely volume overloaded -Will give 2 units of packed red blood cells as I do think she will do better if she is resuscitated and has a hemoglobin between 9 and 10 with a level of ischemia she has -Continue home iron End-stage renal disease on HD -Nephrology is following -HD per nephrology -Continue home sevelamer DM-2 -Diet controlled -Continue to monitor blood sugars History of TIA -Continue Plavix -Aspirin on hold until next week History of substance abuse -No signs of relapse -This was remote History of hepatitis C -Patient has completed treatment DVT prophylaxis -Continue subcu heparin CODE STATUS -Full code Charges/Coding Visit Charges Inpatient E&M: 84306 Subs Hosp L2
--- NOTE | 2024-06-12 15:30 | PCM.PN.REN ---
Subjective Subjective Events noted Objective Data Objective Data Vital Signs: Vital Signs Temp Pulse Resp BP Pulse Ox O2 Del Method O2 Flow Rate 98.1 F 73 22 H 107/47 L 99 Bi-pap 3 06/12/24 14:57 06/12/24 14:57 06/12/24 14:57 06/12/24 14:57 06/12/24 14:57 06/12/24 14:57 06/12/24 03:05 FiO2 25 06/12/24 14:57 Oxygen Flow Rate (L/min) 3 Oxygen Delivery Method Bi-pap Weight: 69 kg Body Mass Index (BMI) 28.7 Intake & Output: Intake and Output for Last 24 Hours 06/10/24 06/11/24 06/12/24 23:59 23:59 23:59 Intake Total 380 / 380 160 / 160 60 / 60 Output Total 3200 / 3200 0 / 0 2430 / 2430 Balance -2820 / -2820 160 / 160 -2370 / -2370 Lab / Micro Data 06/12/24 05:30 06/12/24 05:30 Labs: Laboratory Results - last 24 hr 06/11/24 10:04: Blood Type A POSITIVE, Antibody Screen NEGATIVE, Crossmatch See Detail 06/12/24 05:30: WBC 4.4, RBC 2.43 L, Hgb 7.1 L, Hct 23.1 L, MCV 95.1, MCH 29.2, MCHC 30.7 L, RDW Std Deviation 55.8 H, RDW Coeff of Dottie 16.0 H, Plt Count 171, MPV 10.0, Sodium 137, Potassium 3.4 L, Chloride 98, Carbon Dioxide 29.0, Anion Gap 9, BUN 45 H, Creatinine 7.71 H*, Estim Creat Clear Calc 6.49, Est GFR (MDRD) Af Amer 7 L, Est GFR (MDRD) Non-Af 6 L, BUN/Creatinine Ratio 5.8 L, Glucose 89, Calcium 7.6 L Micro: Microbiology 06/10/24 22:00 Stool Enteric Bacteriology - Final 06/10/24 22:00 Stool Clostridioides difficile (PCR) - Final 06/10/24 19:00 Mucosa - Nasopharyngeal Respiratory Panel (PCR) - Final 06/10/24 18:30 Mucosa - Nose SARS-CoV-2, Influenza & RSV (PCR) - Final Physical Exam Narrative Alert and oriented, lethargic, on BiPAP S1, S2, RRR Diminished coarse breath sounds with scattered rales Abdomen soft, nontender No edema Tunneled hemodialysis catheter accessed for hemodialysis Assessment & Plan Assessment/Plan (1) ESRD (end stage renal disease) on dialysis: (2) Acute hypoxic respiratory failure: (3) Anemia of chronic disease: PLAN: Plan This is a pleasant unfortunate 68-year-old female with past medical history significant for ESRD, coronary artery disease with recent multiple admissions to the hospital for acute exacerbation of chronic systolic heart failure, pneumonia. Patient is compliant with dialysis. She last dialyzed Friday [facility] the [facility] center. She typically does not have large fluid gains between HD sessions and of recent when attempting to remove extra fluid during HD patient develops significant cramping with dialysis and/or projectile vomiting towards end of treatment. dw Dr mcgregor. believe her cardiac status is poor to tolerate dialysis. plan is to transfer her to tertiary center for cardiac evaluation Dialysis today. Pending transfer to [facility] Hemoglobin is low. Transfusion as per primary
[2024-06-12] MEDS: Nitroglycerin Infusion 250 ML 3 MG CONT INF (19:30)
[2024-06-12] MEDS: MELATONIN 3 MG TABLET PO (20:02)
[2024-06-12] MEDS: Atorvastatin Calcium 80 MG Tablet PO (20:05)
--- NOTE | 2024-06-12 22:43 | NURSING ---
Addendum entered by Niki Montoya 06/13/24 00:57: Tyra at [facility] called this RN and connected Dr. Gonzales to this RN. Dr. Gonzales had spoken to Dr. Strickland; but had more questions. Dr. Gonzales states she would accept patient. Per Trya, Dr. Gonzales had discussed acceptance with Dr. Strickland as well. Plan is now for patient to be transferred by Dr. Strickland to Dr. Gonzales. Hospitalist Dr. Mari updated on plan. Addendum entered by Niki Montoya 06/12/24 23:45: Tyra at [facility] transfer line updated at this time with pt first troponin and readout of EKG. She states she will contact Dr. Strickland. Addendum entered by Niki Montoya 06/12/24 23:07: Dr. Strickland made aware of BP of 104/44 (62). States to continue low dose nitro gtt. Original Note: This RN called [facility] to update them that pt is on a Nitro gtt. Tyra on the transfer line states this drip warrants an ICU bed; which is a change from previous. Notified that Nitro gtt was initated due to 1010 CP. Tyra spoke with [facility] scientific linguist Dr. Gonzales who requests an EKG and troponins prior to considering acceptance. This RN spoke with Dr. Strickland in [facility]. Notified him of situation. He ordered an EKG, two troponins, BID Lopressor, and a CBC. This RN informed him that will send him troponins and EKG. Tyra from the transfer line requested a physician to physician contact. Dr. Strickland given the number of the transfer line as Tyra states she could connect Dr. Strickland to Dr. Gonzales. This RN notified Tyra that Dr. Strickland is requesting a call from Dr. Gonzales. Dr. Strickland's number given to Tyra with his permission. Tyra also requests to be notified of first troponin result. Orders entered; primary RN Billie updated.
--- NOTE | 2024-06-12 22:47 | EKG12_ITS ---
Test Reason : CHF, SOB Blood Pressure : / mmHG Vent. Rate : 073 BPM Atrial Rate : 073 BPM P-R Int : 186 ms QRS Dur : 100 ms QT Int : 396 ms P-R-T Axes : 062 087 -82 degrees QTc Int : 436 ms Normal sinus rhythm Septal infarct , age undetermined ST & T wave abnormality, consider inferolateral ischemia Abnormal ECG When compared with ECG of 31-MAY-2024 10:58, Vent. rate has decreased BY 48 BPM T wave inversion now evident in Anterior leads Confirmed by ANTONIETA PIZARRO, MEÑO ([id number]), online content editor ADRIÁN BURRIS ([id number]) on 06/15/2024 9:50:07 AM Referred By: HOYT Confirmed By:MEÑO FUNG MD
[2024-06-12 23:13] LABS: Hematocrit 32.2 % (37-47); Hemoglobin 10.3 g/dL (12.0-15.0); Mean Corpuscular Hgb 29.9 pg (27.0-32.0); Mean Corpuscular Volume 93.3 fL (81-99); POSITIVE COUNT YES; POSITIVE MORPHOLOGY YES; Platelet Count 205 K/mm3 (150-450); RBC Distribution Width CV 15.7 % (11.6-14.6); RBC Distribution Width SD 53.1 fl (35.1-43.9); Red Blood Count 3.45 M/mm3 (4.2-5.4)
[2024-06-12 23:20] LABS: Differential Indicated MANUAL DIFF
[2024-06-12 23:42] LABS: Troponin-I HS 2489 pg/mL (3.0-54.0)
[2024-06-13] VITALS: BP 98/50
[2024-06-13 00:35] LABS: Corrected WBC 4.9 K/mm3 (4.4-11.0); Eosinophil 1 % (0-5); Lymphocyte 22 % (19-41); Metamyelocyte 2 % (0-1); Monocyte 9 % (0-10); Myelocyte 6 % (0-0); Neutrophil-Band 7 % (0-5); Neutrophil-Segmented 53 % (47-70); Nucleated Red Bld Cells,Manual 6 % (0-5); Total Cells Counted 100 (MANUAL DIFF)
[2024-06-13 00:44] LABS: Absolute Lymphocyte Count 1.08 X10^3/uL (0.83-4.51); Absolute Neutrophil Count 2.9 X10^3/uL (2.0-7.7)
[2024-06-13 01:00] VITALS: BP 101/44
[2024-06-13 01:01] LABS: Troponin-I HS 2596 pg/mL (3.0-54.0)
[2024-06-13 02:00] VITALS: BP 102/40
[2024-06-13 02:03] VITALS: PULSE 72; RESP 12; RESP 24; O2SAT 100
--- NOTE | 2024-06-13 02:40 | NURSING ---
RN attempted to call efrem Emerson-Phone is set to not receive calls at this time.
[2024-06-13 03:00] VITALS: BP 108/52
[2024-06-13 03:06] VITALS: O2SAT 97
[2024-06-13 03:33] VITALS: BMI 27.8
--- NOTE | 2024-06-13 03:39 | NURSING ---
Patient being transported to [facility] by ICU mobile team, ESTRELLAS, CP is improved. RN tried to call granddaughter and grandson for update-no answer
--- NOTE | 2024-06-13 07:28 | DS.PCM_ITS ---
Providers Date of Admission: 06/10/24 Date of Discharge: 06/13/24 Primary Care Physician: Dr. Prince Cummins, DO Consultations 06/10/24 07:35 Consult: Nephrology Routine Consulting Provider: Africa Gaytan Reason for Consult: AE CHF with volume overload on HD with anuria. EMERGENT Consult: No MD Notified: Yes Date Notified: 06/10/24 Time Notified: 07:02 Method of Notification: Text 06/11/24 07:41 Consult: Cardiology Routine Consulting Provider: Remigio Strickland Reason for Consult: Triple vessel CAD EMERGENT Consult: No MD Notified: Yes Date Notified: 06/11/24 Time Notified: 07:58 Method of Notification: Text Comments:: was turned down for CAGB ? Complex PCI Reason For Visit: AE OF CHF AND ACUTE HYPOXIC RESP. FAILURE Diagnosis Discharge Diagnosis (1) Acute hypoxic respiratory failure: Status: Acute Code(s): J96.01 - Acute respiratory failure with hypoxia (2) Acute exacerbation of chronic heart failure: Status: Acute Code(s): I50.9 - Heart failure, unspecified (3) Flash pulmonary edema: Status: Acute Code(s): J81.0 - Acute pulmonary edema (4) CAD (coronary artery disease): Status: Acute Code(s): I25.10 - Atherosclerotic heart disease of [place] coronary artery without angina pectoris Qualifiers: Coronary Disease-Associated Artery/Lesion type: [place] artery [place] vs. transplanted heart: [place] heart Associated angina: without angina Q ualified Code(s): I25.10 - Atherosclerotic heart disease of [place] coronary artery without angina pectoris (5) ESRD (end stage renal disease) on dialysis: Status: Acute Code(s): N18.6 - End stage renal disease; Z99.2 - Dependence on renal dialysis (6) Anemia of chronic disease: Status: Chronic Code(s): D63.8 - Anemia in other chronic diseases classified elsewhere Medications at Discharge Home Medications calcium acetate(phosphat bind) 667 mg capsule 2 cap PO TID SUPPLEMENT 03/07/22 cinacalcet 30 mg tablet 30 mg PO DAILY DIALYSIS 09/19/22 sevelamer carbonate 800 mg tablet 800 mg PO TID DIALYSIS 01/28/23 diclofenac sodium 1 % topical gel (Voltaren Arthritis Pain) 2 g topical ONCE PRN ARTHRITIS 10/03/23 amlodipine 10 mg tablet 10 mg PO DAILY BLOOD PRESSURE #7 tabs 02/13/24 aspirin 81 mg tablet,delayed release See Rx Instructions .Route .COMPLEX #90 tabs 05/20/24 atorvastatin 80 mg tablet 80 mg PO QHS CHOLESTEROL #30 tabs 05/20/24 carvedilol 12.5 mg tablet 12.5 mg PO BID blood pressure 05/20/24 clopidogrel 75 mg tablet 75 mg PO DAILY BLOOD THINNER #30 tabs 05/20/24 guaifenesin 1,200 mg tablet, extended release 12 hr (Mucus Relief ER) 1,200 mg PO BID cough 7 days #14 tabs 05/20/24 hydralazine 25 mg tablet 25 mg PO TID 05/20/24 multivitamin with folic acid 400 mcg tablet (Daily-Caron (with folic acid)) 1 tab PO DAILY vitamin 05/20/24 isosorbide dinitrate 20 mg tablet 20 mg PO BID heart #30 tabs 05/26/24 ferrous sulfate 325 mg (65 mg iron) tablet (FeroSul) 325 mg PO DAILY SUPPLEMENT #90 tabs 05/28/24 pantoprazole 40 mg tablet,delayed release 40 mg PO BID #60 tabs 06/04/24 sucralfate 1 gram tablet 1 g PO .qid #120 tabs 06/04/24 Hospital Course Operations None Summary of Care Provided Hospital Course: Mrs. Chaidez is a 68-year-old HD dependent -Turkish female who presented to the emergency department [facility] early on the morning of 06/10/2024 with shortness of breath and diarrhea. She has had multiple recent admissions due to volume overload and per discussion with nephrology is compliant with her diet and even on her long stretch from Friday to Friday when she is off dialysis she typically only gains about 1 kg. She did have an NSTEMI in 2022 and was found to have triple-vessel disease but is not a candidate for CABG it is unclear if she would be a candidate for high risk PCI. She was discharged here on 06/04/2024 when she presented for acute on chronic systolic heart failure. Patient was recently prescribed antibiotics and has been compliant with her home medications what her shortness of breath continue to worsen to the point where she was having difficulty breathing. She was not able to sleep due to shortness of breath so she decided to call EMS. Patient wears chronic 2 L nasal cannula. Vital signs on presentation showed temperature of 97.5, heart rate 112, respiratory 28, blood pressure was 140/115 and pulse ox was 96% on 4 L nasal cannula. She was placed on BiPAP at which time her heart rate improved as did her blood pressure. CBC shows a normal white count with no left shift. She has a hemoglobin which is stable at 8.7. A D-dimer was obtained and found to be elevated at 2.51 for which we obtained a CTA of her chest and it was unremarkable for PE or dissection but is consistent with volume overload. BNP was taken however I suspect this is not her BMP as her creatinine is normal at 0.9 and even when she is dialyzed she appears to have a baseline creatinine in the sixes. Will repeat in the a.m. Patient was dialyzed today. She did have a modified barium swallow at her last hospitalization at which time they assessed her for aspiration she was found to only have mild oropharyngeal dysphagia and was recommended to continue regular textures with easy to chew and thin liquids. She did have a recent echocardiogram on 05/21/2024 at which time she had a normal EF with no regional wall motion abnormalities, mild focal mitral valve calcification and mild to moderate eccentric mitral valve insufficiency. Strep pneumo and Legionella antigens were unremarkable. She was complaining of diarrhea so enteric panel and C. difficile were ordered however not yet been collected as she has not had any loose stool since arrival. She was admitted to PCU on BiPAP and urgent dialysis was ordered. Upon review it appears that she has multiple time been offered PCI here and has declined. Infectious workup was unremarkable. Upon review of all her data we feel that she most likely has intermittent but regular cardiac ischemia which causes stiffening of the ventricle and then flash pulmonary edema which is why she ends up with recurrent admissions for shortness of breath and hypoxia. Cardiology evaluated her and agreed and did feel that she would benefit for evaluation of high risk PCI as she does have fairly significant coronary disease to her LAD, RCA, and circumflex arteries. She received dialysis while she was here and was maintained on her home medications. She did develop intermittent chest pain while she was here and responded to sublingual nitro. Her chest pain became more chronic and she we know she has chronic changes with regards to troponin elevation and baseline EKG so we did place her on a nitro drip to which she responded and her chest pain abated. Cardiology discussed the case with [facility] cardiology and they agreed that she should be evaluated. Transfer was pursued at that time. She was accepted for transfer on 06/11/2024 and a bed became available on 06/13/2024. She does have a history of recent GI bleed at which time an ulcer was found in her stomach. She was treated with cauterization and her hemoglobins have been stable. She does have chronic anemia likely related to her renal disease with a baseline of but 7.5-8.5 predominantly that fluctuates depending on dialysis and given her severe coronary disease it was felt that she would benefit from a hemoglobin closer to 9-10 so she was transfused 2 units during her hospital course. No signs of bleeding were present during her hospitalization. She was discharged [facility] early on the morning of 06/13/2024. She was discharged to cardiology service and will be evaluated for the above. If percutaneous intervention is not available and CABG is still not a possibility further discussions with regards to hospice should be pursued. Discharge diagnoses: Acute hypoxic respiratory failure secondary to flash pulmonary edema Triple-vessel CAD HFrEF HTN HPL History of GI bleed secondary to peptic ulcer disease Chronic anemia secondary to chronic renal disease End-stage renal disease on HD DM-2 History of TIA History of substance abuse History of hepatitis C-completed treatment Weight / BMI Weight Weight: 67 kg Body Mass Index (BMI) 27.8 ABG / Lab / Microbiology Data 06/12/24 23:03 06/12/24 05:30 Laboratory: Laboratory Results - last 24 hr 06/11/24 10:04: Blood Type A POSITIVE, Antibody Screen NEGATIVE, Crossmatch See Detail 06/12/24 23:03: WBC ACID BATH MIXER, Corrected WBC 4.9, RBC 3.45 L, Hgb 10.3 L, Hct 32.2 L, MCV 93.3, MCH 29.9, MCHC 32.0, RDW Std Deviation 53.1 H, RDW Coeff of Dottie 15.7 H , Plt Count 205, MPV 10.0, Neut % (Auto) Not Reportable, Absolute Neuts (auto) 2.9, Absolute Lymphs (auto) 1.08, Total Counted 100, Neutrophils % (Manual) 53, Band Neutrophils % 7 H, Lymphocytes % (Manual) 22, Monocytes % (Manual) 9, Eosinophils % (Manual) 1, Metamyelocytes % 2 H, Myelocytes % 6 H, Nucleated RBCs/100 WBC 6 H, Diff Path Review January foll, Troponin I High Sens 2489 H* 06/13/24 00:15: Troponin I High Sens 2596 H* Microbiology: Microbiology 06/10/24 22:00 Stool Enteric Bacteriology - Final 06/10/24 22:00 Stool Clostridioides difficile (PCR) - Final 06/10/24 19:00 Mucosa - Nasopharyngeal Respiratory Panel (PCR) - Final 06/10/24 18:30 Mucosa - Nose SARS-CoV-2, Influenza & RSV (PCR) - Final Meaningful Use Info Meaningful Use Meaningful Use Diagnoses (Choose all that apply): None applicable Ischemic Stroke Statin Dosing Therapy Reference: STATIN DOSE THERAPY REFERENCE: * Patients > 75 years receive moderate or high dose statin therapy. * Patients 75 years or YOUNGER should receive HIGH intensity statin dose unless contraindicated. You will be required to document reason for non-treatment if statin daily dose does not meet guidelines. HIGH DOSE STATIN THERAPY DAILY Atorvastatin > than or = to 40 mg Rosuvastatin > than or = to 20 mg Amlodipine + Atorvastatin > than or = to 2.5/40 mg Ezetimibe + Simvastatin 10/80 mg Simvastatin 80mg Discharge Plan Admission Admit Date/Time: 06/10/24 07:01 Primary Reason for Your Visit: Shortness of breath Attending Provider: Shannan Alonzo Primary Care Provider: Prince Cumimns Consulting Providers: Africa Gaytan; Shannan Alonzo; Remigio Strickland Discharge Orders/Prescriptions Prescriptions: No Action amlodipine 10 mg tablet 10 mg PO DAILY Qty: 7 0RF calcium acetate(phosphat bind) 667 mg capsule 2 cap PO TID cinacalcet 30 mg Tablet 30 mg PO DAILY sevelamer carbonate 800 mg tablet 800 mg PO TID diclofenac sodium [Voltaren Arthritis Pain] 1 % gel 2 g topical ONCE PRN (Reason: ARTHRITIS) Rx Instructions: apply to right knee guaifenesin [Mucus Relief ER] 1,200 mg Tablet Extended Release 12hr 1,200 mg PO BID 7 Days Qty: 14 0RF carvedilol 12.5 mg tablet 12.5 mg PO BID hydralazine 25 mg tablet 25 mg PO TID multivitamin with folic acid [Daily-Caron (with folic acid)] 400 mcg tablet 1 tab PO DAILY isosorbide dinitrate 20 mg Tablet 20 mg PO BID Qty: 30 0RF pantoprazole 40 mg Tablet,Delayed Release (Dr/Ec) 40 mg PO BID Qty: 60 2RF sucralfate 1 gram tablet 1 g PO .qid Qty: 120 1RF aspirin 81 mg tablet,delayed release (DR/EC) See Rx Instructions .ROUTE .COMPLEX Qty: 90 3RF Dose Instruction: TAKE 1 TABLET BY MOUTH DAILY Rx Instructions: TAKE 1 TABLET BY MOUTH DAILY atorvastatin 80 mg tablet 80 mg PO QHS Qty: 30 1RF clopidogrel 75 mg tablet 75 mg PO DAILY Qty: 30 1RF ferrous sulfate [FeroSul] 325 mg (65 mg iron) tablet 325 mg PO DAILY Qty: 90 1RF Referrals / Follow Up: Prince Cummins DO [Primary Care Provider] - Disposition Disposition (needs filled in before D/C Order can be placed): [facility]
[2024-06-14 12:59] LABS: Pathologist Review Reviewed
== END 2024-06-13 03:43 | disposition short-term general hospital (02) | DRG 194 ==
LOC: ED 06:14 → PCU 06:50
PROVIDERS: Internal Medicine Interventional Cardiology; Admitting Provider Internal Medicine; Emergency Provider Emergency Medicine; PCP Family Medicine; Visit Provider Internal Medicine
DX: I13.2 Hypertensive heart and chronic kidney disease with heart failure and with stage 5 chronic kidney disease, or end stage renal disease (principal); J96.01 Acute respiratory failure with hypoxia; N18.6 End stage renal disease; E11.22 Type 2 diabetes mellitus with diabetic chronic kidney disease; I50.23 Acute on chronic systolic (congestive) heart failure; J44.9 Chronic obstructive pulmonary disease, unspecified; D63.1 Anemia in chronic kidney disease; E11.51 Type 2 diabetes mellitus with diabetic peripheral angiopathy without gangrene; I25.10 Atherosclerotic heart disease of native coronary artery without angina pectoris; M19.90 Unspecified osteoarthritis, unspecified site; E78.5 Hyperlipidemia, unspecified; K21.9 Gastro-esophageal reflux disease without esophagitis; Z99.2 Dependence on renal dialysis; I25.2 Old myocardial infarction; E66.3 Overweight; Z68.28 Body mass index [BMI] 28.0-28.9, adult; Z79.899 Other long term (current) drug therapy; Z79.82 Long term (current) use of aspirin; Z79.891 Long term (current) use of opiate analgesic; Z86.73 Personal history of transient ischemic attack (TIA), and cerebral infarction without residual deficits; Z87.891 Personal history of nicotine dependence
CPT/HCPCS: 36415; 71045; 71275; 80048; 80053; 83735; 83880; 84100; 84145; 84443; 84484; 85018; 85025; 85027; 85379; 86850; 86900; 86901; 86920; 86922; 87177; 87209; 87329; 87493; 87506; 87631; 87633; 90662; 90937; 93005; 94002; 94003; 94762; 97162; 97166; 97802; 99285; J7030; J7040; P9016; Q9967; A4216; G0257; J1940; J2405

== ENCOUNTER → 2024-07-19 | Outpatient (REF) | payer MEDICAID, SELFPAY ==
[2024-07-19 09:38] LABS: Absolute Lymphocyte Count 1.93 X10^3/uL (0.83-4.51); Absolute Neutrophil Count 3.4 X10^3/uL (2.0-7.7); Basophil# 0.06 X10^3/uL; Eosinophil# 0.13 X10^3/uL; Eosinophils% 2.1 % (0-5); Hematocrit 28.5 % (37-47); Lymphocyte # 1.93 X10^3/ul (0.83-4.51); Lymphocyte % 31.5 % (19-41); Mean Corp Hgb Conc 31.6 g/dL (32-36); Mean Corpuscular Hgb 32.1 pg (27.0-32.0); Mean Corpuscular Volume 101.8 fL (81-99); Mean Platelet Vol. 9.6 fl (6.2-12.0); Monocyte# 0.57 X10^3/uL; Monocyte% 9.3 % (0-10); NRBC Flagged by Analyzer 0 % (0-5); Neutrophil # 3.41 X10^3/uL (2.7-7.7); Neutrophil % 55.6 % (47-70); Platelet Count 192 K/mm3 (150-450); RBC Distribution Width CV 16.6 % (11.6-14.6); RBC Distribution Width SD 61.9 fl (35.1-43.9); White Blood Count 6.1 K/mm3 (4.4-11.0)
[2024-07-19 09:59] LABS: Vitamin B12 1478 pg/mL (211-911); Vitamin D,25 Hydroxy 19.5 ng/mL
[2024-07-19 10:34] LABS: Anion Gap 9 (5-15); BUN 26 mg/dL (7-18); BUN/Creat Ratio 3.5 RATIO (10-20); Calcium,Total 9.4 mg/dL (8.5-10.1); Chloride 98 mmol/L (98-107); Creatinine, Serum 7.41 mg/dL (0.55-1.02); EST Glomerular Filtration Rate 6 mL/min (>60); Est Glom Filt Rate - Afr Amer 7 mL/min (>60); Glucose 87 mg/dL (74-106); Magnesium 2.5 mg/dL (1.6-2.6); Potassium 3.8 mmol/L (3.5-5.1); Sodium Level 138 mmol/L (136-145); Thyroid Stim Hormone (TSH) 0.907 uIU/mL (0.358-3.740)
== END | disposition home or self-care (01) ==
LOC: OLS.SW 04:00
PROVIDERS: PCP Family Medicine; Referring Provider Internal Medicine; Visit Provider Internal Medicine
DX: I13.2 Hypertensive heart and chronic kidney disease with heart failure and with stage 5 chronic kidney disease, or end stage renal disease (principal); I50.9 Heart failure, unspecified; J44.9 Chronic obstructive pulmonary disease, unspecified; E78.5 Hyperlipidemia, unspecified; E11.22 Type 2 diabetes mellitus with diabetic chronic kidney disease; N18.6 End stage renal disease
CPT/HCPCS: 36415; 80048; 82306; 82607; 83735; 84443; 85025

== ENCOUNTER → 2024-07-27 | Outpatient (REF) | payer MEDICAID, SELFPAY | END | disposition home or self-care (01) | LOC: OLS.SW 05:00 | PROVIDERS: PCP Family Medicine; Visit Provider Internal Medicine | DX: G40.89 Other seizures (principal); Z79.899 Other long term (current) drug therapy | CPT/HCPCS: 36415; 80177 ==

== ENCOUNTER → 2024-08-02 | Outpatient (REF) | payer MEDICAID, SELFPAY ==
[2024-08-02 08:05] LABS: Hematocrit 24.8 % (37-47); Hemoglobin 7.9 g/dL (12.0-15.0); Mean Corp Hgb Conc 31.9 g/dL (32-36); Mean Corpuscular Hgb 31.2 pg (27.0-32.0); Mean Platelet Vol. 9.4 fl (6.2-12.0); Platelet Count 186 K/mm3 (150-450); RBC Distribution Width CV 15.1 % (11.6-14.6); RBC Distribution Width SD 54.5 fl (35.1-43.9); Red Blood Count 2.53 M/mm3 (4.2-5.4); White Blood Count 4.1 K/mm3 (4.4-11.0)
[2024-08-02 08:32] LABS: Anion Gap 7 (5-15); BUN 49 mg/dL (7-18); Chloride 102 mmol/L (98-107); Creatinine, Serum 8.16 mg/dL (0.55-1.02); EST Glomerular Filtration Rate 5 mL/min (>60); Est Glom Filt Rate - Afr Amer 6 mL/min (>60); Glucose 85 mg/dL (74-106); Magnesium 1.9 mg/dL (1.6-2.6); Potassium 3.5 mmol/L (3.5-5.1); Sodium Level 139 mmol/L (136-145)
[2024-08-03 17:07] LABS: KEPPRA (LEVETIRACETAM) 6.3 ug/mL (10.0-40.0)
== END | disposition home or self-care (01) ==
LOC: OLS.SW 04:00
PROVIDERS: PCP Family Medicine; Referring Provider Internal Medicine; Visit Provider Internal Medicine
DX: I11.0 Hypertensive heart disease with heart failure (principal); I50.9 Heart failure, unspecified; E11.9 Type 2 diabetes mellitus without complications; G40.89 Other seizures; J96.11 Chronic respiratory failure with hypoxia
CPT/HCPCS: 36415; 80048; 80177; 83735; 85027

== ENCOUNTER 2024-08-09 01:42 | Inpatient (IN) | payer MEDICAID, SELFPAY ==
[2024-08-09] VITALS (28 sets, daily range): BP systolic 88–196; BP diastolic 32–114; PULSE 71–97; RESP 15–22; TEMP 36.3–37.4; O2SAT 93–100; BMI 29.5; BMI 26.3; BMI 27.0; BMI 26.4
--- NOTE | 2024-08-09 01:45 | EKG12_ITS ---
Test Reason : SOB Blood Pressure : */* mmHG Vent. Rate : 88 BPM Atrial Rate : 88 BPM P-R Int : 186 ms QRS Dur : 96 ms QT Int : 412 ms P-R-T Axes : 47 51 -60 degrees QTcB Int : 498 ms Normal sinus rhythm Low voltage QRS Septal infarct , age undetermined ST & & T wave abnormality, consider ischemia Abnormal ECG Confirmed by Luis Olea ([id number]), editor producer ADRIÁN BURRIS ([id number]) on 08/10/2024 10:33:20 AM Referred By: Confirmed By: Luis Olea
--- NOTE | 2024-08-09 01:50 | EDS_ITS ---
HPI History of Present Illness Chief Complaint: Shortness of Breath Detail of Chief Complaint: Sent from SNF by ambulance because of respiratory symptoms Informant: patient, EMS and SNF Onset/Context/Timing Onset: Today Context: Sudden Onset Quality: Trouble breathing Location: Respiratory Current Severity: Mild Maximum Severity: Moderate Worsened by: Nothing because patient does not feel there is anything wrong. Relieved by: Not applicable because patient feels there is nothing wrong. Associated Symptoms Associated Symptoms: Does endorse cough. Does endorse vomiting twice Narrative Narrative: Patient is a 68-year-old woman. She is status post right hemispheric stroke with left-sided residual, coronary artery disease, end-stage renal disease on hemodialysis Friday, and Friday, COPD, secondary hyperparathyroidism, peripheral arterial disease, steal syndrome as a complication of dialysis access, right subclavian, dress syndrome, congestive heart failure and rheumatoid arthritis. Director Strategic Planning report given to nurse was witnessed. Apparently her lungs sound junky they states she is alert and awake. Patient is slow to respond. She is awake but not alert. She does endorse cough. She does endorse productive cough. She admits to vomiting twice since her food noted on her sweater. She feels warm to touch. She states she does make urine. She has no urinary symptoms. Prior similar symptoms: Yes Recent Illness/Hospitalization: Yes (The end of May patient was admitted for congestive heart failure. He) [facility] Medical History End stage renal disease Subendocardial ischemia Chest pressure Pulmonary edema Elevated troponin level Acute hypoxic respiratory failure Elevated troponin ESRD (end stage renal disease) on dialysis Acute blood loss anemia CAD (coronary artery disease) (HFpEF) heart failure with preserved ejection fraction Acute respiratory failure with hypoxia Alcohol use Wears dentures Shingles outbreak Arthritis Dietary restriction Normal Holter exam History of echocardiogram Cardiology follow-up encounter History of heart attack CHF (congestive heart failure) Severe protein-calorie malnutrition Malnutrition of moderate degree COPD (chronic obstructive pulmonary disease) Substance abuse Dialysis patient GI bleed Hepatitis Hypertension History of hypertension Chronic progressive renal failure TIA (transient ischemic attack) End-stage renal disease on hemodialysis PONV (postoperative nausea and vomiting) Post-menopausal Wears glasses Ambulates with cane High cholesterol Easy bruising Edentulous Gastric reflux On home oxygen therapy Former smoker Shortness of breath on exertion Leg cramps Hyponatremia ESRD (end stage renal disease) on dialysis Acute and chronic respiratory failure with hypoxia Chronic kidney disease, stage V requiring chronic dialysis Cardiac dysrhythmia, unspecified NSTEMI, initial episode of care Anemia Asthma Stroke Diabetes Rheumatoid arthritis Type II diabetes mellitus Hypertension Home Medications ?Medication ?Instructions ?Recorded ?Last Taken ?Type calcium acetate(phosphat bind) 667 2 cap PO TID SUPPLEMENT 03/07/22 05/09/24 History mg capsule cinacalcet 30 mg tablet 30 mg PO DAILY DIALYSIS 09/19/22 05/09/24 History sevelamer carbonate 800 mg tablet 800 mg PO TID DIALYSIS 01/28/23 05/09/24 History diclofenac sodium 1 % topical gel 2 g topical ONCE PRN ARTHRITIS 10/03/23 11/24/23 History (Voltaren Arthritis Pain) amlodipine 10 mg tablet 10 mg PO DAILY BLOOD PRESSURE #7 02/13/24 05/10/24 Rx tabs aspirin 81 mg tablet,delayed See Rx Instructions .Route 05/20/24 Unknown Rx release .COMPLEX #90 tabs carvedilol 12.5 mg tablet 12.5 mg PO BID blood pressure 05/20/24 Unknown History hydralazine 25 mg tablet 25 mg PO TID 05/20/24 Unknown History multivitamin with folic acid 400 1 tab PO DAILY vitamin 05/20/24 Unknown History mcg tablet (Daily-Caron (with folic acid)) isosorbide dinitrate 20 mg tablet 20 mg PO BID heart #30 tabs 05/26/24 Unknown Rx ferrous sulfate 325 mg (65 mg 325 mg PO DAILY SUPPLEMENT #90 tabs 05/28/24 Unknown Rx iron) tablet (FeroSul) pantoprazole 40 mg tablet,delayed 40 mg PO BID #60 tabs 06/04/24 Unknown Rx release sucralfate 1 gram tablet 1 g PO .qid #120 tabs 06/04/24 Unknown Rx atorvastatin 80 mg tablet 80 mg PO QHS CHOLESTEROL #30 tabs 07/01/24 Unknown Rx clopidogrel 75 mg tablet 75 mg PO DAILY BLOOD THINNER #30 07/01/24 Unknown Rx tabs albuterol sulfate 90 mcg/actuation 2 puff inhalation Q6H 08/09/24 Unknown History aerosol inhaler aluminum-magnesium hydroxide 225 30 ml PO Q4H PRN PRN GI DISTRESS 08/09/24 Unknown History mg-200 mg/5 mL oral suspension amiodarone 200 mg tablet 400 mg PO BID 08/09/24 Unknown History bisacodyl 10 mg rectal suppository 10 mg TN DAILY PRN constipation 08/09/24 Unknown History gabapentin 100 mg capsule 100 mg PO Q12H 08/09/24 Unknown History guaifenesin 100 mg/5 mL oral 200 mg PO Q4H PRN cough 08/09/24 Unknown History liquid (Chest Congestion Relief) ipratropium 0.5 mg-albuterol 3 mg 3 ml inhalation Q6H PRN shortness 08/09/24 Unknown History (2.5 mg base)/3 mL nebulization of breath soln levetiracetam 250 mg tablet 250 mg PO .COMPLEX SEIZURES 08/09/24 Unknown History levetiracetam 500 mg tablet 500 mg PO QHS 08/09/24 Unknown History losartan 25 mg tablet 25 mg PO DAILY 08/09/24 Unknown History metoprolol succinate 50 mg 50 mg PO DAILY 08/09/24 Unknown History tablet,extended release 24 hr midodrine 10 mg tablet 10 mg PO Q24H PRN hypotension 08/09/24 Unknown History ondansetron HCl 4 mg tablet 4 mg PO Q8H PRN PRN nausea and 08/09/24 Unknown History vomiting sodium phosphates 19 gram-7 118 ml TN DAILY PRN constipation 08/09/24 Unknown History gram/118 mL enema (Enema) Allergy/AdvReac Type Severity Reaction Status Date / Time ceftriaxone Allergy Severe Rash Verified 08/09/24 01:49 vancomycin Allergy Unknown Rash Verified 08/09/24 01:49 Penicillins Allergy Swelling Verified 08/09/24 01:49 oxycodone HCl (From Percocet) AdvReac Intermediate Itching Verified 08/09/24 01:49 Family History Mother Hypertension Emphysema/COPD Sister Hypertension Surgical History S/P arteriovenous (AV) fistula creation History of arteriovenostomy for renal dialysis History of surgery History of eye surgery knee scope H/O: hysterectomy Social History Smoking Status: Former smoker alcohol intake: current details: 1 per week substance use type: does not use what type of physical activity do you participate in: none ROS ROS ED Constitutional Constitutional ED: Denies chills, fever(s), subjective or sweats Eyes Eyes: Denies blurry vision or change in vision ENT ENT ED: Denies ear pain or rhinorrhea Cardiovascular Cardiovascular: Denies chest pain, orthopnea, palpitations, paroxysmal nocturnal dyspnea or racing heartbeat Respiratory/Chest Respiratory/Chest: Reports cough and dyspnea; Denies dyspnea on exertion, orthopnea or paroxysmal nocturnal dyspnea Gastrointestinal Gastrointestinal: Reports nausea and vomiting; Denies abdominal pain or diarrhea Genitourinary Genitourinary ED: Denies dysuria, hematuria or urinary frequency Musculoskeletal Musculoskeletal: Denies arthralgias or myalgias Integumentary Denies rash Neurologic Neurologic: Reports weakness; Denies headache(s) Psychiatric Psychiatric: Denies anxiety Endocrine Endocrinology: Denies cold intolerance Hematologic/Lymphatic Hematologic/Lymphatic: Reports as per HPI EXAM Physical Exam Const Vital Signs: 08/09/24 01:42 08/09/24 01:54 08/09/24 01:55 Temperature 98.8 F 98.8 F Temperature Source Oral Oral Pulse Rate 90 90 Respiratory Rate 15 22 H Respiratory Effort Short of Breath Respiratory Depth Shallow Respiratory Pattern Tachypnea Blood Pressure 135/114 H 135/114 H Blood Pressure Mean 121 121 Pulse Ox 97 97 Oxygen Delivery Method Nasal Cannula Nasal Cannula Nasal Cannula Oxygen Flow Rate (L/min) 2 2 2 08/09/24 02:08 08/09/24 02:39 08/09/24 02:54 Temperature 99 F 98.4 F 98.3 F Temperature Source Axillary Oral Pulse Rate 83 87 Respiratory Rate 16 16 Respiratory Effort Respiratory Depth Respiratory Pattern Blood Pressure 109/40 L 101/38 L Blood Pressure Mean 63 59 Pulse Ox 93 99 Oxygen Delivery Method Nasal Cannula Oxygen Flow Rate (L/min) 2 08/09/24 03:00 08/09/24 03:00 Temperature 98.4 F Temperature Source Oral Pulse Rate 84 84 Respiratory Rate 21 H 16 Respiratory Effort Respiratory Depth Respiratory Pattern Blood Pressure 111/35 L Blood Pressure Mean 60 Pulse Ox 98 Oxygen Delivery Method Nasal Cannula Oxygen Flow Rate (L/min) 2 Positive well developed Constitutional Narrative: Patient is slightly tachypneic. She is not alert. She has a moist cough. General Appearance ED: well developed; Negative for NAD or pallor HEENT Reports dry mucous membranes Mouth ED: Yes dry mucous membranes Mouth: dry mucous membranes Eyes PERRL and EOMs intact bilaterally General Eye ED: Yes pale conjunctiva; Negative for scleral icterus Neck no lymphadenopathy, supple and no JVD Neck Narrative: Trachea is midline. There is no stridor. Chest Wall inspection of chest normal and palpation of chest normal Resp normal respiratory effort and No clear to auscultation bilaterally Auscultation: rales right base and wheezes expiratory wheezes, scattered wheezes and throughout Cardio regular rate, regular rhythm, S1 normal heart sound, S2 normal heart sound and no murmurs GI normal to inspection, nondistended, normoactive bowel sounds, non-tender, non- distended and no masses; Negative for hepatosplenomegaly Back/Spine no CVA tenderness Extremity Negative for normal to inspection Extremity Narrative: Contractures left upper extremity secondary to prior stroke. She has difficulty using her left side. General Extremety ED: Negative for edema General Extremity: Negative for edema Neuro oriented x3 and No no sensory deficits noted Neuro Narrative: nerve palsy and facial droop noted on the left Sensorium / Orientation: Negative for alert Motor Exam: Negative for strength 5/5 throughout Psych mental status grossly normal Skin no wounds Skin Narrative: Patient has dry skin. General Skin Exam: Negative for jaundice or pallor MDM MDM MDM Narrative Medical decision making narrative: Patient feels very warm. Suspect she has a fever. With her vomiting she may have aspirated. Will obtain chest x-ray to assess for pneumonia and CHF since she has history of both. CBC to assess H&H as well as white count. Competence of metabolic panel to assess for endorgan dysfunction and determine what her BUN/creatinine are and compared to prior since she has history of end-stage renal disease on hemodialysis. Vas-Cath site appears fine with no obvious evidence of infection. Since she makes urine we will obtain a UA if there is no abnormality Chest x-ray and patient has fever History & Record Review Additional record(s) reviewed:: Prior inpatient record, Prior outpatient record (External source regarding osteoarthritis), Prior ED visit and Prior labs Lab Data Attestation: I reviewed the patient's lab results. Lab results narrative: White count is normal. There is no shift. Patient's hemoglobin has decreased since August 02. It was 7.9. On July 19 hemoglobin was 9.0. Labs: Laboratory Results - last 24 hr 11/25/24 02:17 WBC 7.0 RBC 2.27 L Hgb 7.3 L Hct 22.8 L MCV 100.4 H MCH 32.2 H MCHC 32.0 RDW Std Deviation 55.4 H RDW Coeff of Dottie 15.4 H Plt Count 199 MPV 9.0 Immature Gran % (Auto) 0.600 Neut % (Auto) 67.4 Lymph % (Auto) 19.5 [place] % (Auto) 11.8 H Eos % (Auto) 0.1 Baso % (Auto) 0.6 Absolute Neuts (auto) 4.7 Absolute Lymphs (auto) 1.37 Nucleated RBC % 0 Sodium 136 Potassium 5.1 Chloride 99 Carbon Dioxide 26.0 Anion Gap 11 BUN 53 H Creatinine 8.33 H* Estim Creat Clear Calc 5.98 Est GFR (MDRD) Af Amer 6 L Est GFR (MDRD) Non-Af 5 L BUN/Creatinine Ratio 6.4 L Glucose 111 H Lactic Acid 3.4 H* Calcium 9.4 Total Bilirubin 0.60 AST 64 H ALT 39 Alkaline Phosphatase 109 Total Protein 6.7 Albumin 2.2 L Globulin 4.5 H Albumin/Globulin Ratio 0.5 L Radiography Chest X-Ray - ED: 2 View and Read by ED Physician (Chest x-ray is drastically different than chest x-ray was obtained June 10. Patient has an effusion. There is increased interstitial markings at the right base compared to June 10. The heart border is somewhat obscured. Suspect patient has an effusion on the left with atelectasis and p) EKG Initial EKG: Attestation: I personally reviewed and interpreted this EKG as follows: Interpretation: Sinus Rhythm (Rate is 88. There is low voltage. TN interval is 186 ms. Cures duration 96 ms. Assumption is normal. There is decreased anterior force. There is nonspecific anterior changes noted. This is unchanged from June 12, 2024.) Comments: CT of the chest without contrast was reviewed by me. Patient has a significant effusion on the left. There is a small effusion on the right. There is evidence of infiltrate on the right. In light of patient's allergy to penicillin with swelling rash with ceftriaxone and rash with vancomycin, which may represent red man syndrome will treat with levofloxacin, meropenem and Zyvox. Reason Zyvox was chosen patient has history of MRSA in the past. Since there was no obvious evidence of infiltrate and there was concern this may represent fluid overload patient was not started on antibiotics until the scan revealed infiltrate in my opinion. Time of this addendum is 351 The elevated lactate could have been due to the fact that she was hypoxic which would be a type a lactic acidosis. Her pulse ox was 85% on room air. She is presently on oxygen. Prior: Unchanged (June 12, 2024.) Treatment and Re-Evaluation :: Patient's axillary temperature was 99 which corresponds with an oral temperature of 100 degrees. Since patient is greater than age is 67 per the [employer] this would be considered a fever. This is considered a fever because metabolic basal rate decreases with age and a fever based on the [employer] of our practice is 99.5 for person that is 68 years of age. Reviewing patient's most recent admissions for this year there were times where she was felt to have COPD and she was determined to have CHF. There is also times where it was felt that she had CHF and was determined that she was bacteremic from pulmonary source. Since her chest x-ray does not reveal cephalization but does have a large effusion and no obvious infiltrate will obtain a CT without contrast to determine if she may have aspirated since she did vomit twice and has abnormal breath sounds noted on the right. If there is evidence of aspiration pneumonitis patient would require treatment with Zosyn since she is from a SNF and dialysis patient. Since there is no obvious or concrete evidence to support the this is an infectious process patient was not started on antibiotics at this point and reason for CT of the chest without contrast. Discharge Plan Triage Chief Complaint: Shortness of Breath ED Provider: Gregor Hernandez Dx/Rx/DC Orders Clinical Impression: Infiltrate of lower lobe of right lung present on imaging study, Anemia of chronic disease, Pleural effusion, left, Acute hypoxemic respiratory failure, End-stage renal disease on hemodialysis, Bronchospasm, Acute on chronic anemia, History of stroke, Nausea & vomiting Prescriptions: No Action amlodipine 10 mg tablet 10 mg PO DAILY Qty: 7 0RF calcium acetate(phosphat bind) 667 mg capsule 2 cap PO TID cinacalcet 30 mg Tablet 30 mg PO DAILY sevelamer carbonate 800 mg tablet 800 mg PO TID diclofenac sodium [Voltaren Arthritis Pain] 1 % gel 2 g topical ONCE PRN (Reason: ARTHRITIS) Rx Instructions: apply to right knee carvedilol 12.5 mg tablet 12.5 mg PO BID hydralazine 25 mg tablet 25 mg PO TID multivitamin with folic acid [Daily-Caron (with folic acid)] 400 mcg tablet 1 tab PO DAILY isosorbide dinitrate 20 mg Tablet 20 mg PO BID Qty: 30 0RF pantoprazole 40 mg Tablet,Delayed Release (Dr/Ec) 40 mg PO BID Qty: 60 2RF sucralfate 1 gram tablet 1 g PO .qid Qty: 120 1RF albuterol sulfate 90 mcg/actuation HFA aerosol inhaler 2 puff inhalation Q6H amiodarone 200 mg tablet 400 mg PO BID gabapentin 100 mg capsule 100 mg PO Q12H guaifenesin [Chest Congestion Relief] 100 mg/5 mL liquid 200 mg PO Q4H PRN (Reason: cough) aluminum-magnesium hydroxide 225-200 mg/5 mL suspension 30 ml PO Q4H PRN PRN (Reason: GI DISTRESS) bisacodyl 10 mg suppository 10 mg TN DAILY PRN (Reason: constipation) Rx Instructions: IF NO BM IN 4 DAYS Enema 19-7 gram/118 mL enema 118 ml TN DAILY PRN (Reason: constipation) ipratropium-albuterol 0.5 mg-3 mg(2.5 mg base)/3 mL solution for nebulization 3 ml inhalation Q6H PRN (Reason: shortness of breath) levetiracetam 250 mg tablet 250 mg PO .COMPLEX Rx Instructions: 250 mg orally orally EVERY FRIDAY, FRIDAY, FRIDAY, FRIDAY; orally EVERY FRIDAY, FRIDAY, FRIDAY, FRIDAY levetiracetam 500 mg tablet 500 mg PO QHS losartan 25 mg tablet 25 mg PO DAILY metoprolol succinate 50 mg tablet extended release 24 hr 50 mg PO DAILY midodrine 10 mg tablet 10 mg PO Q24H PRN (Reason: hypotension) Rx Instructions: FOR SBP BELOW 95 ondansetron HCl 4 mg tablet 4 mg PO Q8H PRN PRN (Reason: nausea and vomiting) aspirin 81 mg tablet,delayed release (DR/EC) See Rx Instructions .ROUTE .COMPLEX Qty: 90 3RF Dose Instruction: TAKE 1 TABLET BY MOUTH DAILY Rx Instructions: TAKE 1 TABLET BY MOUTH DAILY ferrous sulfate [FeroSul] 325 mg (65 mg iron) tablet 325 mg PO DAILY Qty: 90 1RF atorvastatin 80 mg tablet 80 mg PO QHS Qty: 30 1RF clopidogrel 75 mg tablet 75 mg PO DAILY Qty: 30 1RF Primary Care Provider: Leigha Longoria Referrals: Prince Cummins DO [Med Staff - Hypoid Gear Tester] - Print Language: Urdu Disposition Disposition: Acute Care Hospital [facility]
--- NOTE | 2024-08-09 02:30 | RAD_ITS ---
EXAM: XR CHEST, 2 VIEWS CLINICAL INDICATION: Cough, subjective fever, tachypnea, bibasilar rale TECHNIQUE: Frontal and lateral views of the chest. COMPARISON: Previous chest radiographs. FINDINGS: LUNGS AND PLEURAL SPACES: Small right pleural effusion has developed and CTA abdomen with superior CT to patient, blunting the right posterior costophrenic angle. Mild patchy airspace disease has developed within the right lower lung. Large left pleural effusion has developed, opacifying the left lung base and left lateral costophrenic angle. Hazy density noted within the left mid to upper lung due to posteriorly layering pleural effusion and possible airspace disease. No pneumothorax. The visualized pulmonary interstitial markings do not appear thickened. HEART: Mild/moderate cardiomegaly is now present with mild increase in heart size. Pulmonary vasculature is unchanged. MEDIASTINUM: Thoracic aorta remains elongated and calcific. BONES/JOINTS: Unremarkable. No acute fracture. SOFT TISSUES: Surgical clips and stent material again projected in the left axillary region. TUBES, LINES AND DEVICES: Dialysis catheter remains in place. RAD/Chest PA and Lateral IMPRESSION: 1. Interval development of bilateral pleural effusions, left greater than right. The left lung base is opacified by the large left pleural effusion and underlying infiltrate such as atelectasis or pneumonia. 2. Patchy airspace disease has also developed at the right lung base, suspicious for pneumonia. Electronically Signed: Urbano Alvarez MD at 4:10 EST ,
[2024-08-09 02:31] LABS: Absolute Lymphocyte Count 1.37 X10^3/uL (0.83-4.51); Absolute Neutrophil Count 4.7 X10^3/uL (2.0-7.7); Basophil# 0.04 X10^3/uL; Basophil% 0.6 % (0-1); Eosinophil# 0.01 X10^3/uL; Eosinophils% 0.1 % (0-5); Hematocrit 22.8 % (37-47); Hemoglobin 7.3 g/dL (12.0-15.0); Lymphocyte # 1.37 X10^3/ul (0.83-4.51); Lymphocyte % 19.5 % (19-41); Mean Corpuscular Hgb 32.2 pg (27.0-32.0); Mean Corpuscular Volume 100.4 fL (81-99); Monocyte# 0.83 X10^3/uL; Monocyte% 11.8 % (0-10); NRBC Flagged by Analyzer 0 % (0-5); Neutrophil # 4.72 X10^3/uL (2.7-7.7); Neutrophil % 67.4 % (47-70); Platelet Count 199 K/mm3 (150-450); RBC Distribution Width CV 15.4 % (11.6-14.6); RBC Distribution Width SD 55.4 fl (35.1-43.9); Red Blood Count 2.27 M/mm3 (4.2-5.4)
[2024-08-09 03:11] LABS: ALB/GLOB Ratio 0.5 RATIO (0.9-2.4); AST(SGOT) 64 U/L (15-37); Alanine Aminotransfer ALT/SGPT 39 U/L (13-56); Albumin, Serum 2.2 g/dL (3.2-5.0); Alkaline Phosphatase 109 U/L (45-117); Anion Gap 11 (5-15); BUN 53 mg/dL (7-18); BUN/Creat Ratio 6.4 RATIO (10-20); Calcium,Total 9.4 mg/dL (8.5-10.1); Chloride 99 mmol/L (98-107); Creatinine, Serum 8.33 mg/dL (0.55-1.02); EST Glomerular Filtration Rate 5 mL/min (>60); Est Glom Filt Rate - Afr Amer 6 mL/min (>60); Estimated Creatinine Clearance 5.98 ml/min; Globulin 4.5 g/dL (2.2-4.2); Glucose 111 mg/dL (74-106); Lactic Acid 3.4 mmol/L (0.4-1.9); Potassium 5.1 mmol/L (3.5-5.1); Protein, Total 6.7 g/dL (6.4-8.2); Sodium Level 136 mmol/L (136-145)
--- NOTE | 2024-08-09 03:22 | CT_ITS ---
EXAM: CT CHEST WITHOUT INTRAVENOUS CONTRAST CLINICAL INDICATION: Hypoxia, large effusion concern aspiration TECHNIQUE: Helically acquired images were obtained of the chest without intravenous contrast. This CT exam was performed using one or more of the following dose reduction techniques: automated exposure control, adjustment of the mA and/or kV according to patient size, and/or use of iterative reconstruction technique. RADIATION DOSE: Total DLP: 558.77 mGy-cm. COMPARISON: Chest radiographs of this same date. CTA chest of 06/10/2024. FINDINGS: LUNGS AND PLEURAL SPACES: Moderate to large left pleural effusion is demonstrated. There is dense consolidation of the left lower lobe with air bronchograms; the left lower lobe bronchus is opacified by secretions and/or mucous plugging. Compressive atelectasis of the lingula. Patchy airspace disease and groundglass opacities are seen in the aerated superior portion of the left upper lobe. Small right pleural effusion is present with adjacent compressive atelectasis. Patchy airspace disease and groundglass opacities noted within the right lower lobe, anteriorly. Additional groundglass opacities and minimal patchy airspace disease also noted within the right middle lobe. There is minimal patchy subpleural airspace disease anteriorly within the right upper lobe. Pulmonary interstitial markings do not appear significantly thickened. No mass. No pneumothorax. HEART: Heavy coronary artery calcification is present. There is a trace of pericardial fluid. TRACHEAL: Fluid layers in the dependent portion of the mainstem bronchi, bronchus intermedius and left upper lobe bronchus. The left lower lobe bronchus is opacified. MEDIASTINUM: Air-fluid level noted within the midesophagus. VASCULATURE: Thoracic aorta is calcific and is normal in caliber. No aneurysm or intimal calcification is placement. THYROID: Unremarkable. No thyroid lesions. BONES/JOINTS: Accentuated thoracic kyphosis. There is diffuse sclerosis of the thoracic vertebral bodies and sternum. Midthoracic degenerative disc disease is present. No endplate destruction. Cervical degenerative disc disease also noted. No acute rib fracture. No suspicious lytic abnormality. UPPER ABDOMEN: Visualized portions of the liver, spleen, pancreas, and adrenal glands are unremarkable. The kidneys are small with extensive atherosclerotic calcification. Extensive calcification noted within the SMA and celiac axis with severe stenosis at the origin of these 2 vessels. No pneumoperitoneum is noted. LYMPH NODES: Normal-sized paratracheal lymph nodes are present. No mediastinal adenopathy is visualized. TUBES, LINES AND DEVICES: Right jugular venous catheter in place. Dialysis catheter within the subcutaneous fat of the left anterior chest wall. Associated skin thickening and hazy fat stranding in the left axillary region. CT/Chest without Contrast IMPRESSION: Air-fluid level within the esophagus. Fluid within the trachea, mainstem bronchi, left upper lobe bronchus and within the left lower lobe bronchus, most likely secondary to aspiration. Airspace disease and groundglass opacities within the left upper lobe, right middle lobe and right lower lobe, consistent with aspiration pneumonitis the pneumonia could also be present. Bilateral pleural effusions with compressive atelectasis within the right lower lobe and lingula. Dense consolidation of the left lower lobe secondary to atelectasis and/or airspace disease such as pneumonia or aspiration pneumonitis. Electronically Signed: Urbano Alvarez MD at 5:00 EST ,
--- NOTE | 2024-08-09 03:27 | HP.PCM.HOS_ITS ---
[facility] - General General Date of Admission: 08/09/24 Date of Service: 08/09/24 Chief Complaint: SOB and Cough after Vomiting. HPI Narrative NATALI CHAIDEZ, is a 68 F with a past medical history of essential hypertension; on metoprolol, amlodipine hydralazine and losartan, hyperlipidemia; on atorvastatin, overweight; with BMI of 29.5 this admission, DM-2; of unknown control, ESRD on HD; () with 'steal syndrome' as a complication of dialysis access; on midodrine and patient admitting she still makes urine, CAD; s/p NSTEMI (2022) with triple vessel disease but with patient not a candidate for CABG but still on BASA and Plavix, Chronic Diastolic CHF; with preserved LVEF, history of arrhythmia; on amiodarone 400 mg p.o. twice daily, history of TIA/CVA; with reduced residual Left-sided weakness, history of seizures; on levetiracetam, history of tobacco abuse (quit ~2020); with subsequent asthma/COPD, chronic hypoxic respiratory failure; on 2L NC continuously, history of substance abuse, history of hepatitis C, PVD, history of hyponatremia, chronic anemia, history of GI bleed, GERD; on Protonix p.o. twice daily and Carafate, history of colonic diverticular disease, history of DRESS, history of RSD with neuropathic pain; on gabapentin, history of hysterectomy, history of severe protein-calorie malnutrition, history of shingles, listed allergy to PCN (swelling), history of allergy to Rocephin (rash), history of allergy to Vancomycin (rash), RA, OA; with chronic debility on Voltaren gel and recent admission here from May 31, 2024 to June 04, 2024 for treatment of AE of Chronic Systolic CHF; with preserved LVEF, chest pain, acute anemia and possible super-imposed pneumonia followed by another visit from June 10, 2024 to June 13, 2024 for Acute Hypoxic Respiratory Failure due to Flash Pulmonary Edema who now re-presents to [facility] ER complaining of SOB and cough after vomiting. Ms. Chaidez is not a fully reliable historian at this time so most information was gathered from chart, medical staff and computer. According to the records her symptoms began a few hours prior to admission with the abrupt onset of shortness of breath and cough after vomiting twice with suspected aspiration event. She has noticed a minimally productive moist cough with slight shortness of breath so EMS was activated to bring her in for further evaluation and treatment. There was no report of fever, chills, diarrhea, constipation, chest pain, palpitations, headache or paresthesias. In the ER she was noted to have CT of the chest positive for suspected Aspiration Pneumonia with Bilateral Pleural Effusions complicated by clinical evidence of [id number]-[id number] Respiratory Insufficiency compounded by Lactic Acidosis of 3.4 mmol/L present on admission along with Chronic Anemia with hemoglobin of 7.3 g/dL with macrocytosis at 100.4 fL present on admission and she was then admitted to the PCU for ongoing care for stay that is expected to extend beyond 2 midnights. [facility] Medical History End stage renal disease Subendocardial ischemia Chest pressure Pulmonary edema Elevated troponin level Acute hypoxic respiratory failure Elevated troponin ESRD (end stage renal disease) on dialysis Acute blood loss anemia CAD (coronary artery disease) (HFpEF) heart failure with preserved ejection fraction Acute respiratory failure with hypoxia Alcohol use Wears dentures Shingles outbreak Arthritis Dietary restriction Normal Holter exam History of echocardiogram Cardiology follow-up encounter History of heart attack CHF (congestive heart failure) Severe protein-calorie malnutrition Malnutrition of moderate degree COPD (chronic obstructive pulmonary disease) Substance abuse Dialysis patient GI bleed Hepatitis Hypertension History of hypertension Chronic progressive renal failure TIA (transient ischemic attack) End-stage renal disease on hemodialysis PONV (postoperative nausea and vomiting) Post-menopausal Wears glasses Ambulates with cane High cholesterol Easy bruising Edentulous Gastric reflux On home oxygen therapy Former smoker Shortness of breath on exertion Leg cramps Hyponatremia ESRD (end stage renal disease) on dialysis Acute and chronic respiratory failure with hypoxia Chronic kidney disease, stage V requiring chronic dialysis Cardiac dysrhythmia, unspecified NSTEMI, initial episode of care Anemia Asthma Stroke Diabetes Rheumatoid arthritis Type II diabetes mellitus Hypertension Home Medications ?Medication ?Instructions ?Recorded ?Last Taken ?Type calcium acetate(phosphat bind) 667 2 cap PO TID SUPPLEMENT 03/07/22 05/09/24 History mg capsule cinacalcet 30 mg tablet 30 mg PO DAILY DIALYSIS 09/19/22 05/09/24 History sevelamer carbonate 800 mg tablet 800 mg PO TID DIALYSIS 01/28/23 05/09/24 History diclofenac sodium 1 % topical gel 2 g topical ONCE PRN ARTHRITIS 10/03/23 11/24/23 History (Voltaren Arthritis Pain) amlodipine 10 mg tablet 10 mg PO DAILY BLOOD PRESSURE #7 02/13/24 05/10/24 Rx tabs aspirin 81 mg tablet,delayed See Rx Instructions .Route 05/20/24 Unknown Rx release .COMPLEX #90 tabs carvedilol 12.5 mg tablet 12.5 mg PO BID blood pressure 05/20/24 Unknown History hydralazine 25 mg tablet 25 mg PO TID 05/20/24 Unknown History multivitamin with folic acid 400 1 tab PO DAILY vitamin 05/20/24 Unknown History mcg tablet (Daily-Caron (with folic acid)) isosorbide dinitrate 20 mg tablet 20 mg PO BID heart #30 tabs 05/26/24 Unknown Rx ferrous sulfate 325 mg (65 mg 325 mg PO DAILY SUPPLEMENT #90 tabs 05/28/24 Unknown Rx iron) tablet (FeroSul) pantoprazole 40 mg tablet,delayed 40 mg PO BID #60 tabs 06/04/24 Unknown Rx release sucralfate 1 gram tablet 1 g PO .qid #120 tabs 06/04/24 Unknown Rx atorvastatin 80 mg tablet 80 mg PO QHS CHOLESTEROL #30 tabs 07/01/24 Unknown Rx clopidogrel 75 mg tablet 75 mg PO DAILY BLOOD THINNER #30 07/01/24 Unknown Rx tabs albuterol sulfate 90 mcg/actuation 2 puff inhalation Q6H 08/09/24 Unknown History aerosol inhaler aluminum-magnesium hydroxide 225 30 ml PO Q4H PRN PRN GI DISTRESS 08/09/24 Unknown History mg-200 mg/5 mL oral suspension amiodarone 200 mg tablet 400 mg PO BID 08/09/24 Unknown History bisacodyl 10 mg rectal suppository 10 mg ID DAILY PRN constipation 08/09/24 Unknown History gabapentin 100 mg capsule 100 mg PO Q12H 08/09/24 Unknown History guaifenesin 100 mg/5 mL oral 200 mg PO Q4H PRN cough 08/09/24 Unknown History liquid (Chest Congestion Relief) ipratropium 0.5 mg-albuterol 3 mg 3 ml inhalation Q6H PRN shortness 08/09/24 Unknown History (2.5 mg base)/3 mL nebulization of breath soln levetiracetam 250 mg tablet 250 mg PO .COMPLEX SEIZURES 08/09/24 Unknown History levetiracetam 500 mg tablet 500 mg PO QHS 08/09/24 Unknown History losartan 25 mg tablet 25 mg PO DAILY 08/09/24 Unknown History metoprolol succinate 50 mg 50 mg PO DAILY 08/09/24 Unknown History tablet,extended release 24 hr midodrine 10 mg tablet 10 mg PO Q24H PRN hypotension 08/09/24 Unknown History ondansetron HCl 4 mg tablet 4 mg PO Q8H PRN PRN nausea and 08/09/24 Unknown History vomiting sodium phosphates 19 gram-7 118 ml ID DAILY PRN constipation 08/09/24 Unknown History gram/118 mL enema (Enema) Allergy/AdvReac Type Severity Reaction Status Date / Time ceftriaxone Allergy Severe Rash Verified 08/09/24 01:49 vancomycin Allergy Unknown Rash Verified 08/09/24 01:49 Penicillins Allergy Swelling Verified 08/09/24 01:49 oxycodone HCl (From Percocet) AdvReac Intermediate Itching Verified 08/09/24 01:49 Family History Mother Hypertension Emphysema/COPD Sister Hypertension Surgical History S/P arteriovenous (AV) fistula creation History of arteriovenostomy for renal dialysis History of surgery History of eye surgery knee scope H/O: hysterectomy Social History Smoking Status: Former smoker alcohol intake: current details: 1 per week substance use type: does not use what type of physical activity do you participate in: none ROS ROS Narrative Review of Systems: Constitutional: Patient denies fever or chills. Eyes: Patient denies changes in vision or discharge from eyes. ENT: Patient denies runny nose, sore throat or ear pain. Resp: Patient admits to shortness of breath and cough directly after vomiting with suspected aspiration as per HPI. CV: Patient denies chest pain, palpitations or heart racing. GI: Patient admits to nausea and vomiting but denies abdominal pain or diarrhea. : Patient denies dysuria or hematuria. MSK: Patient denies arthralgias or myalgias. Skin: Patient denies rash, abscess or jaundice. Psych: Patient denies symptoms of uncontrolled depression or anxiety. Neuro: Patient denies headache, paresthesias or focal neurologic deficits. Allergy: Patient denies lip swelling, tongue swelling or urticaria. Hematology: Patient denies easy bleeding or easy bruisability. Endocrinology: Patient denies polyuria, polydipsia or polyphagia. 14 point review of systems otherwise negative except for positives noted above in HPI. Vital Signs Vital Signs Vital Signs: 08/09/24 01:42 08/09/24 01:54 08/09/24 01:55 Temperature 98.8 F 98.8 F Temperature Source Oral Oral Pulse Rate 90 90 Respiratory Rate 15 22 H Respiratory Effort Short of Breath Respiratory Depth Shallow Respiratory Pattern Tachypnea Blood Pressure 135/114 H 135/114 H Blood Pressure Mean 121 121 Pulse Ox 97 97 Oxygen Delivery Method Nasal Cannula Nasal Cannula Nasal Cannula Oxygen Flow Rate (L/min) 2 2 2 08/09/24 02:08 08/09/24 02:39 08/09/24 02:54 Temperature 99 F 98.0 F 98.3 F Temperature Source Axillary Oral Pulse Rate 111 H 87 Respiratory Rate 20 H 16 Respiratory Effort Respiratory Depth Respiratory Pattern Blood Pressure 110/72 101/38 L Blood Pressure Mean 84 59 Pulse Ox 98 99 Oxygen Delivery Method Nasal Cannula Oxygen Flow Rate (L/min) 2 08/09/24 03:00 08/09/24 03:00 Temperature 98.4 F Temperature Source Oral Pulse Rate 84 84 Respiratory Rate 21 H 16 Respiratory Effort Respiratory Depth Respiratory Pattern Blood Pressure 111/35 L Blood Pressure Mean 60 Pulse Ox 98 Oxygen Delivery Method Nasal Cannula Oxygen Flow Rate (L/min) 2 Weight Weight: 156 lb 4.924 oz Body Mass Index (BMI) 29.5 Physical Exam Const alert and oriented x3 Constitutional Narrative: Mild distress noted with patient chronically ill in appearance. General Appearance: cooperative Orientation / Consciousness: lethargic HEENT normocephalic, head/scalp atraumatic, hearing grossly normal bilaterally and moist oral mucous membranes Eyes PERRL and EOMs intact bilaterally Neck no lymphadenopathy and supple Resp Resp Narrative: Diminished breath sounds throughout with scattered rhonci that partially clear with cough Auscultation: rhonchi Cardio regular rate and regular rhythm GI normal to inspection, nondistended, normoactive bowel sounds, soft to palpation and non-tender Extremity normal to inspection, full ROM and no clubbing, cyanosis or edema Skin Skin Narrative: Patient denies rash, abscess or jaundice. Neuro oriented x3, CN's II-XII intact bilaterally, moves all extremities and no focal motor deficits Sensorium / Orientation: awake, alert, oriented to person, oriented to place and oriented to time Speech: speech normal Psych affect normal Results Medical Records Data Attestation: I reviewed the patient's medical records Lab / Micro Data Attestation: I reviewed the patient's lab results. 08/09/24 02:17 08/09/24 02:17 Labs: Laboratory Results - last 24 hr 08/09/24 02:17: WBC 7.0, RBC 2.27 L, Hgb 7.3 L, Hct 22.8 L, MCV 100.4 H, MCH 32.2 H, MCHC 32.0, RDW Std Deviation 55.4 H, RDW Coeff of Dottie 15.4 H, Plt Count 199, MPV 9.0, Immature Gran % (Auto) 0.600, Neut % (Auto) 67.4, Lymph % (Auto) 19.5, Gaston % (Auto) 11.8 H, Eos % (Auto) 0.1, Baso % (Auto) 0.6, Absolute Neuts (auto) 4.7, Absolute Lymphs (auto) 1.37, Nucleated RBC % 0, Sodium 136, Potassium 5.1, Chloride 99, Carbon Dioxide 26.0, Anion Gap 11, BUN 53 H, C reatinine 8.33 H*, Estim Creat Clear Calc 5.98, Est GFR (MDRD) Af Amer 6 L, Est GFR (MDRD) Non-Af 5 L, BUN/Creatinine Ratio 6.4 L, Glucose 111 H, Lactic Acid 3.4 H*, Calcium 9.4, Total Bilirubin 0.60, AST 64 H, ALT 39, Alkaline Phosphatase 109, Total Protein 6.7, Albumin 2.2 L, Globulin 4.5 H, A lbumin/Globulin Ratio 0.5 L Micro: Microbiology 08/09/24 01:57 Mucosa - Nose SARS-CoV-2, Influenza & RSV (PCR) - Final Imaging [facility] Imaging Services [address] [place] [address] Chest PA and Lateral MR#: [id number] Acct: [id number] Name: NATALI CHAIDEZ Rep #: [id number] : 1955 F 68 From: Urbano Alvarez MD PCP: Leigha Longoria MD Status: ADM IN Study: Chest PA and Lateral Date of Exam: 08/09/24 Exam# [id number] Ordering Dr: Gregor Hernandez MD EXAM: XR CHEST, 2 VIEWS CLINICAL INDICATION: Cough, subjective fever, tachypnea, bibasilar rale TECHNIQUE: Frontal and lateral views of the chest. COMPARISON: Previous chest radiographs. FINDINGS: LUNGS AND PLEURAL SPACES: Small right pleural effusion has developed and CTA abdomen with superior CT to patient, blunting the right posterior costophrenic angle. Mild patchy airspace disease has developed within the right lower lung. Large left pleural effusion has developed, opacifying the left lung base and left lateral costophrenic angle. Hazy density noted within the left mid to upper lung due to posteriorly layering pleural effusion and possible airspace disease. No pneumothorax. The visualized pulmonary interstitial markings do not appear thickened. HEART: Mild/moderate cardiomegaly is now present with mild increase in heart size. Pulmonary vasculature is unchanged. MEDIASTINUM: Thoracic aorta remains elongated and calcific. BONES/JOINTS: Unremarkable. No acute fracture. SOFT TISSUES: Surgical clips and stent material again projected in the left axillary region. TUBES, LINES AND DEVICES: Dialysis catheter remains in place. RAD/Chest PA and Lateral IMPRESSION: 1. Interval development of bilateral pleural effusions, left greater than right. The left lung base is opacified by the large left pleural effusion and underlying infiltrate such as atelectasis or pneumonia. 2. Patchy airspace disease has also developed at the right lung base, suspicious for pneumonia. Electronically Signed: Urbano Alvarez MD at 4:10 EST , CC: Dr. Gregor Hernandez MD; Leigha Longoria MD ~ Box Hinge And Lock Attacher: Signed - [facility] Imaging Services [address] [place] [address] [id number] Chest without Contrast MR#: [id number] Acct: [id number] Name: NATALI CHAIDEZ Rep #: [id number] : 1955 F 68 From: Urbano Alvarez MD PCP: Leigha Longoria MD Status: ADM IN Study: Chest without Contrast Date of Exam: 08/09/24 Exam# [id number] Ordering Dr: Gregor Hernandez MD EXAM: CT CHEST WITHOUT INTRAVENOUS CONTRAST CLINICAL INDICATION: Hypoxia, large effusion concern aspiration TECHNIQUE: Helically acquired images were obtained of the chest without intravenous contrast. This CT exam was performed using one or more of the following dose reduction techniques: automated exposure control, adjustment of the mA and/or kV according to patient size, and/or use of iterative reconstruction technique. RADIATION DOSE: Total DLP: 558.77 mGy-cm. COMPARISON: Chest radiographs of this same date. CTA chest of 06/10/2024. FINDINGS: LUNGS AND PLEURAL SPACES: Moderate to large left pleural effusion is demonstrated. There is dense consolidation of the left lower lobe with air bronchograms; the left lower lobe bronchus is opacified by secretions and/or mucous plugging. Compressive atelectasis of the lingula. Patchy airspace disease and groundglass opacities are seen in the aerated superior portion of the left upper lobe. Small right pleural effusion is present with adjacent compressive atelectasis. Patchy airspace disease and groundglass opacities noted within the right lower lobe, anteriorly. Additional groundglass opacities and minimal patchy airspace disease also noted within the right middle lobe. There is minimal patchy subpleural airspace disease anteriorly within the right upper lobe. Pulmonary interstitial markings do not appear significantly thickened. No mass. No pneumothorax. HEART: Heavy coronary artery calcification is present. There is a trace of pericardial fluid. TRACHEAL: Fluid layers in the dependent portion of the mainstem bronchi, bronchus intermedius and left upper lobe bronchus. The left lower lobe bronchus is opacified. MEDIASTINUM: Air-fluid level noted within the midesophagus. VASCULATURE: Thoracic aorta is calcific and is normal in caliber. No aneurysm or intimal calcification is placement. THYROID: Unremarkable. No thyroid lesions. BONES/JOINTS: Accentuated thoracic kyphosis. There is diffuse sclerosis of the thoracic vertebral bodies and sternum. Midthoracic degenerative disc disease is present. No endplate destruction. Cervical degenerative disc disease also noted. No acute rib fracture. No suspicious lytic abnormality. UPPER ABDOMEN: Visualized portions of the liver, spleen, pancreas, and adrenal glands are unremarkable. The kidneys are small with extensive atherosclerotic calcification. Extensive calcification noted within the SMA and celiac axis with severe stenosis at the origin of these 2 vessels. No pneumoperitoneum is noted. LYMPH NODES: Normal-sized paratracheal lymph nodes are present. No mediastinal adenopathy is visualized. TUBES, LINES AND DEVICES: Right jugular venous catheter in place. Dialysis catheter within the subcutaneous fat of the left anterior chest wall. Associated skin thickening and hazy fat stranding in the left axillary region. CT/Chest without Contrast IMPRESSION: Air-fluid level within the esophagus. Fluid within the trachea, mainstem bronchi, left upper lobe bronchus and within the left lower lobe bronchus, most likely secondary to aspiration. Airspace disease and groundglass opacities within the left upper lobe, right middle lobe and right lower lobe, consistent with aspiration pneumonitis the pneumonia could also be present. Bilateral pleural effusions with compressive atelectasis within the right lower lobe and lingula. Dense consolidation of the left lower lobe secondary to atelectasis and/or airspace disease such as pneumonia or aspiration pneumonitis. Electronically Signed: Urbano Alvarez MD at 5:00 EST , CC: Dr. Gregor Hernandez MD; Leigha Longoria MD ~ Box Hinge And Lock Attacher: Signed Assessment & Plan Assessment/Plan (1) Aspiration pneumonia: QUALIFIERS: Aspiration pneumonia type: due to vomit Laterality: b ilateral Lung location: unspecified part of lung Qualified Code(s): J69.0 - Pneumonitis due to inhalation of food and vomit (2) Nausea & vomiting: QUALIFIERS: Vomiting type: bilious vomiting Qualified Code(s): R 11.14 - Bilious vomiting (3) Pleural effusion: (4) Lactic acidosis: (5) Respiratory insufficiency: (6) Acute on chronic anemia: (7) End-stage renal disease on hemodialysis: PLAN: Plan 1. CT of the chest positive for suspected Aspiration Pneumonia with Bilateral Pleural Effusions in the setting of listed allergy to PCN (swelling), history of allergy to Rocephin (rash) and history of allergy to Vancomycin (rash) - Admit to PCU. Patient has extensive allergy profile causing ER physician to start antibiotic coverage with Linezolid, Levaquin and Merrem with Levaquin having to be held due to adverse drug interaction with Amiodarone. Check urine antigens to Streptococcus pneumonia and Legionella. Patient has nontoxic appearance and is afebrile and without leukocytosis so she was not suspected to have sepsis present on admission - neither could she tolerate a large bolus of IVF with large Left > Right pleural effusions on CT. Give Tylenol prn for pain or fever. Finally, we will consult Speech Therapy to see this patient on-rounds in the AM for further formal swallowing evaluation with help appreciated in advance. 2. Fdvra-zw-Ksarysv Respiratory Insufficiency arising from #1 - Wean supplemental oxygen as tolerated back to baseline levels. 3. Lactic Acidosis of 3.4 mmol/L present on admission due to #1 & #2 - Serialize lactates and monitor for improvement. 4. Chronic Anemia with hemoglobin of 7.3 g/dL with macrocytosis at 100.4 fL present on admission adding to the medical complexity of #1 - #3 - Type & Screen blood in case hemoglobin < 7 g/dL. Check B12, Folate, iron studies and ferritin to evaluate for potential deficiency state contributing to her anemia. 5. ESRD on HD; (T--Fri) with 'steal syndrome' as a complication of dialysis access; on midodrine and patient admitting she still makes urine adding to the burden of disease outlined from #1 - #4 - We will consult nephrology to see this patient on-rounds in the AM for further recommendations with help appreciated in advance. 6. Recent admission here from June 10, 2024 to June 13, 2024 for Acute Hypoxic Respiratory Failure due to Flash Pulmonary Edema - Noted. 7. Recent admission here from May 31, 2024 to June 04, 2024 for treatment of AE of Chronic Systolic CHF; with preserved LVEF, chest pain, acute anemia and possible super-imposed pneumonia - Noted. 8. CAD; s/p NSTEMI (2022) with triple vessel disease but with patient not a candidate for CABG but still on BASA and Plavix - Maintain current regimen. 9. History of TIA/CVA; with reduced residual Left-sided weakness - Noted. PT/OT and Case Management to consult and treat. 10. History of seizures; on levetiracetam - Resume Levetiracetam as before. Give IV Ativan prn for breakthrough seizure activity. 11. Chronic Diastolic CHF; with preserved LVEF - Noted with pleural effusions on Chest CT suggestive of volume overload. 12. Essential hypertension; on metoprolol, amlodipine hydralazine and losartan - Hold metoprolol for now with other medications held until swallowing evaluation can be completed. 13. Hyperlipidemia; on atorvastatin - Maintain current regimen. 14. Overweight; with BMI of 26.3 this admission - Weight loss will be recommended. Check TSH. This complicates her case and may hamper recovery. 15. DM-2; of unknown control - NPO for now. FSBS q. 6 hours plus SSI. Check HgbA1c to assess quality of diabetic control with patient not on any anti- diabetic agents. 16. History of arrhythmia; on amiodarone 400 mg p.o. twice daily - Resume amiodarone as before. 17. History of tobacco abuse (quit ~2020); with subsequent asthma/COPD - Stable with no evidence of acute flare. Continue prn nebulizers. 18. History of substance abuse - Noted. 19. History of hepatitis C; s/p treatment - Noted. 20. PVD - Stable. 21. History of hyponatremia - Stable with serum sodium of 136 mmol/L. 22. History of GI bleed, GERD; on Protonix p.o. twice daily and Carafate - Noted. 23. History of colonic diverticular disease - Noted. 24. History of DRESS - Stable. 25. History of RSD with neuropathic pain; on gabapentin - Resume gabapentin as previous. 26. History of hysterectomy - Noted. 27. History of severe protein-calorie malnutrition - Noted. 28. History of shingles - Noted. 29. RA - Noted. 30. OA; with chronic debility on Voltaren gel - Continue current treatment. 31. DVT prophylaxis - Heparin 5,000 U sq. BID plus SCD's. Total time: Approximately (but not less than) 75 minutes.
[2024-08-09] MEDS: Meropenem 1 GM in 0.9% Normal Saline (100mL MB+) 100 ML IV ×2 (04:13→19:34)
--- NOTE | 2024-08-09 04:33 | ED.RN ---
[facility] made aware of the pts admission.
[2024-08-09 05:03] LABS: BNP,B-Type NATRIURETIC PEPTIDE 4725.2 pg/mL (0-100)
[2024-08-09] MEDS: Linezolid 600 MG 600 MG/300 ML BAG 200 MG IV ×2 (05:13→22:53)
[2024-08-09 05:32] LABS: Ferritin 12203 ng/mL (8-252); Iron 68 ug/dL (50-170); Iron Binding Capacity,Total 295 ug/dL (250-450); PERCENT IRON SATURATION 23.1 % (15.0-55.0)
[2024-08-09 06:25] LABS: Reflex Lactate? Y
[2024-08-09 06:31] LABS: Absolute Lymphocyte Count 1.46 X10^3/uL (0.83-4.51); Absolute Neutrophil Count 3.9 X10^3/uL (2.0-7.7); Basophil# 0.04 X10^3/uL; Basophil% 0.7 % (0-1); Eosinophil# 0.02 X10^3/uL; Eosinophils% 0.3 % (0-5); Hematocrit 22.2 % (37-47); Hemoglobin 7.2 g/dL (12.0-15.0); Lymphocyte # 1.46 X10^3/ul (0.83-4.51); Lymphocyte % 24.1 % (19-41); Mean Corp Hgb Conc 32.4 g/dL (32-36); Mean Corpuscular Hgb 32.6 pg (27.0-32.0); Mean Corpuscular Volume 100.5 fL (81-99); Mean Platelet Vol. 9.1 fl (6.2-12.0); Monocyte# 0.63 X10^3/uL; Monocyte% 10.4 % (0-10); NRBC Flagged by Analyzer 0.3 % (0-5); Neutrophil # 3.87 X10^3/uL (2.7-7.7); Neutrophil % 63.7 % (47-70); Platelet Count 194 K/mm3 (150-450); RBC Distribution Width CV 15.4 % (11.6-14.6); RBC Distribution Width SD 55.6 fl (35.1-43.9); Red Blood Count 2.21 M/mm3 (4.2-5.4); White Blood Count 6.1 K/mm3 (4.4-11.0)
[2024-08-09 07:06] LABS: Bedside Glucose 137 mg/dL (74-106)
[2024-08-09 07:08] LABS: ALB/GLOB Ratio 0.5 RATIO (0.9-2.4); AST(SGOT) 73 U/L (15-37); Alanine Aminotransfer ALT/SGPT 41 U/L (13-56); Albumin, Serum 2.1 g/dL (3.2-5.0); Alkaline Phosphatase 101 U/L (45-117); Anion Gap 10 (5-15); BUN 56 mg/dL (7-18); Calcium,Total 9.3 mg/dL (8.5-10.1); Chloride 100 mmol/L (98-107); Creatinine, Serum 8.02 mg/dL (0.55-1.02); EST Glomerular Filtration Rate 5 mL/min (>60); Est Glom Filt Rate - Afr Amer 6 mL/min (>60); Estimated Creatinine Clearance 5.88 ml/min; Globulin 4.4 g/dL (2.2-4.2); Glucose 136 mg/dL (74-106); Lactic Acid 3.3 mmol/L (0.4-1.9); Magnesium 1.9 mg/dL (1.6-2.6); Potassium 5.1 mmol/L (3.5-5.1); Protein, Total 6.5 g/dL (6.4-8.2); Sodium Level 136 mmol/L (136-145)
[2024-08-09] MEDS: Albuterol 2.5 MG/3 ML VIAL.NEB. INHALATION ×2 (07:10→19:22)
[2024-08-09 08:06] LABS: Vitamin B12 627 pg/mL (211-911)
[2024-08-09] MEDS: Ferrous Sulfate 325 MG Tablet PO (10:06)
[2024-08-09] MEDS: Aspirin E.C. 81 MG Tablet PO (10:06)
[2024-08-09] MEDS: Amiodarone 200 MG Tablet 400 MG PO (10:06)
[2024-08-09] MEDS: Calcium Acetate 667 MG Capsule 1334 MG PO ×2 (10:07→17:28)
[2024-08-09] MEDS: Multivitamins,Therapeutic Tablet 1 TABLET PO (10:07)
[2024-08-09] MEDS: Lactobacillis Acidophilus 1 CAP PO ×3 (10:08→21:21)
[2024-08-09] MEDS: Ascorbic Acid 500 MG Tablet 1000 MG PO ×2 (10:08→17:30)
[2024-08-09] MEDS: SEVELAMER CARBONATE 800 MG TABLET PO ×2 (10:08→17:27)
[2024-08-09] MEDS: Cinacalcet HCl 30 MG Tablet PO (10:08)
[2024-08-09] MEDS: Menthol/Lanolin/Calamine/Znox 113 GM Tube 1 APPLIC TOPICAL ×2 (10:08→21:15)
[2024-08-09] MEDS: Zinc Sulfate 50 mg zinc (220 mg) ORAL capsule PO (10:10)
[2024-08-09] MEDS: Heparin Injection (Vial) 5,000 UNIT/ML VIAL 5000 UNIT SC ×2 (10:10→21:16)
[2024-08-09] MEDS: Pantoprazole Sodium 40 MG Tablet PO ×2 (10:10→21:16)
[2024-08-09] MEDS: Clopidogrel Bisulfate 75 MG Tablet PO (10:10)
[2024-08-09] MEDS: Gabapentin 100 MG Capsule PO ×2 (10:10→21:16)
[2024-08-09] MEDS: levETIRAcetam 250 MG Tablet PO (10:10)
[2024-08-09] MEDS: Cholecalciferol (Vit D3) 125 MCG CAPSULE (5,000 UNITS) PO (10:10)
[2024-08-09] MEDS: Sucralfate 1 GM Tablet PO ×3 (11:16→21:15)
[2024-08-09 11:26] LABS: Bedside Glucose 111 mg/dL (74-106)
[2024-08-09] MEDS: PureFlow B 2K Dialysis Soln 1 BAG 6 BAG PF (12:33)
[2024-08-09] MEDS: 0.9% Normal Saline 1,000 ML IV.SOLN. 1000 ML OPERA.SITE (12:33)
[2024-08-09] MEDS: 0.9% Saline Lock 10 ML Syringe IV (12:34)
--- NOTE | 2024-08-09 15:32 | CASEMGMT ---
Discharge Planning Updates sent via [facility] to [facility]. Neva Hernandez DC Planning Asst.
--- NOTE | 2024-08-09 15:52 | CASEMGMT ---
Patient came in from [facility]. SW met with patient. Introduced self and role at [facility]. Patient plans on returning to [facility] at discharge. Bekah SAMAYOA
[2024-08-09 16:14] LABS: Bedside Glucose 109 mg/dL (74-106)
--- NOTE | 2024-08-09 16:21 | PCM.CONS.R ---
Assessment & Plan Assessment/Plan (1) ESRD (end stage renal disease): PLAN: seen on HD today. UF as tolerated Anemia. Hb was around 9 at the time of discharge. now around 7.2. recently seen by GI at [facility] if does not get better consider transfer to [facility] multiple comorbidities HPI Consult Data Date of Consult: 08/09/24 HPI Narrative Reason for Consultation: ESRD HPI Narrative: NATALI KINSEY, is a 68 F who presents to hospital with dyspnea. renal consulted for ESRD. on HD MWF schedule. she was recently admitted here followed by Sigrid Stafford followed by [facility]. events CAD with extensive atherosclerosis, was seen by Dr Pretty for high risk PCI, right before angiogram suspected seizures, EEG showed possible seizures, started on keppra. was started on DAPT and ended up having GI bleed. EGD and colonoscopy without obvious source. was discharged with follow up for cardiology and GI. seen on HD today [facility] Medical History End stage renal disease Subendocardial ischemia Chest pressure Pulmonary edema Elevated troponin level Acute hypoxic respiratory failure Elevated troponin ESRD (end stage renal disease) on dialysis Acute blood loss anemia CAD (coronary artery disease) (HFpEF) heart failure with preserved ejection fraction Acute respiratory failure with hypoxia Alcohol use Wears dentures Shingles outbreak Arthritis Dietary restriction Normal Holter exam History of echocardiogram Cardiology follow-up encounter History of heart attack CHF (congestive heart failure) Severe protein-calorie malnutrition Malnutrition of moderate degree COPD (chronic obstructive pulmonary disease) Substance abuse Dialysis patient GI bleed Hepatitis Hypertension History of hypertension Chronic progressive renal failure TIA (transient ischemic attack) End-stage renal disease on hemodialysis PONV (postoperative nausea and vomiting) Post-menopausal Wears glasses Ambulates with cane High cholesterol Easy bruising Edentulous Gastric reflux On home oxygen therapy Former smoker Shortness of breath on exertion Leg cramps Hyponatremia ESRD (end stage renal disease) on dialysis Acute and chronic respiratory failure with hypoxia Chronic kidney disease, stage V requiring chronic dialysis Cardiac dysrhythmia, unspecified NSTEMI, initial episode of care Anemia Asthma Stroke Diabetes Rheumatoid arthritis Type II diabetes mellitus Hypertension Home Medications ?Medication ?Instructions ?Recorded ?Last Taken ?Type sevelamer carbonate 800 mg tablet 800 mg PO TID DIALYSIS 01/28/23 05/09/24 History aspirin 81 mg tablet,delayed See Rx Instructions .Route 05/20/24 Unknown Rx release .COMPLEX #90 tabs multivitamin with folic acid 400 1 tab PO DAILY vitamin 05/20/24 Unknown History mcg tablet (Daily-Caron (with folic acid)) ferrous sulfate 325 mg (65 mg 325 mg PO DAILY SUPPLEMENT #90 tabs 05/28/24 Unknown Rx iron) tablet (FeroSul) pantoprazole 40 mg tablet,delayed 40 mg PO BID #60 tabs 06/04/24 Unknown Rx release atorvastatin 80 mg tablet 80 mg PO QHS CHOLESTEROL #30 tabs 07/01/24 Unknown Rx albuterol sulfate 90 mcg/actuation 2 puff inhalation Q6H 08/09/24 Unknown History aerosol inhaler aluminum-magnesium hydroxide 225 30 ml PO Q4H PRN PRN GI DISTRESS 08/09/24 Unknown History mg-200 mg/5 mL oral suspension amiodarone 200 mg tablet 400 mg PO BID 08/09/24 Unknown History bisacodyl 10 mg rectal suppository 10 mg MA DAILY PRN constipation 08/09/24 Unknown History gabapentin 100 mg capsule 100 mg PO Q12H 08/09/24 Unknown History guaifenesin 100 mg/5 mL oral 200 mg PO Q4H PRN cough 08/09/24 Unknown History liquid (Chest Congestion Relief) ipratropium 0.5 mg-albuterol 3 mg 3 ml inhalation Q6H PRN shortness 08/09/24 Unknown History (2.5 mg base)/3 mL nebulization of breath soln levetiracetam 250 mg tablet 250 mg PO .COMPLEX SEIZURES 08/09/24 Unknown History levetiracetam 500 mg tablet 500 mg PO QHS 08/09/24 Unknown History losartan 25 mg tablet 25 mg PO DAILY 08/09/24 Unknown History metoprolol succinate 50 mg 50 mg PO DAILY 08/09/24 Unknown History tablet,extended release 24 hr midodrine 10 mg tablet 10 mg PO Q24H PRN hypotension 08/09/24 Unknown History ondansetron HCl 4 mg tablet 4 mg PO Q8H PRN PRN nausea and 08/09/24 Unknown History vomiting sodium phosphates 19 gram-7 118 ml MA DAILY PRN constipation 08/09/24 Unknown History gram/118 mL enema (Enema) Allergy/AdvReac Type Severity Reaction Status Date / Time ceftriaxone Allergy Severe Rash Verified 08/09/24 01:49 vancomycin Allergy Unknown Rash Verified 08/09/24 01:49 Penicillins Allergy Swelling Verified 08/09/24 01:49 oxycodone HCl (From Percocet) AdvReac Intermediate Itching Verified 08/09/24 01:49 Family History Mother Hypertension Emphysema/COPD Sister Hypertension Surgical History S/P arteriovenous (AV) fistula creation History of arteriovenostomy for renal dialysis History of surgery History of eye surgery knee scope H/O: hysterectomy Social History Smoking Status: Former smoker alcohol intake: current details: 1 per week substance use type: does not use what type of physical activity do you participate in: none ROS ROS Narrative negative except above Physical Exam Narrative Alert awake oriented x 3 no obvious distress no pallor no icterus no JVD s1s2 no murmurs lungs clear abdomen soft no organomegaly no edema no cyanosis Lab / Micro Data 08/09/24 06:19 08/09/24 06:19 Labs: Laboratory Results - last 24 hr 08/09/24 02:17: WBC 7.0, RBC 2.27 L, Hgb 7.3 L, Hct 22.8 L, MCV 100.4 H, MCH 32.2 H, MCHC 32.0, RDW Std Deviation 55.4 H, RDW Coeff of Dottie 15.4 H, Plt Count 199, MPV 9.0, Immature Gran % (Auto) 0.600, Neut % (Auto) 67.4, Lymph % (Auto) 19.5, [place] % (Auto) 11.8 H, Eos % (Auto) 0.1, Baso % (Auto) 0.6, Absolute Neuts (auto) 4.7, Absolute Lymphs (auto) 1.37, Nucleated RBC % 0, Sodium 136, Potassium 5.1, Chloride 99, Carbon Dioxide 26.0, Anion Gap 11, BUN 53 H, Creatinine 8.33 H*, Estim Creat Clear Calc 5.98, Est GFR (MDRD) Af Amer 6 L, Est GFR (MDRD) Non-Af 5 L, BUN/Creatinine Ratio 6.4 L, Glucose 111 H, Lactic Acid 3.4 H*, Calcium 9.4, Iron 68, TIBC 295, Iron Saturation 23.1, Ferritin 66493 H, Total Bilirubin 0.60, AST 64 H, ALT 39, Alkaline Phosphatase 109, B-Natriuretic Peptide 4725.2 H, Total Protein 6.7, Albumin 2.2 L, Globulin 4.5 H, Albumin/Globulin Ratio 0.5 L, Folate 65.20 H, TSH 2.010 08/09/24 06:19: WBC 6.1, RBC 2.21 L, Hgb 7.2 L, Hct 22.2 L, MCV 100.5 H, MCH 32.6 H, MCHC 32.4, RDW Std Deviation 55.6 H, RDW Coeff of Dottie 15.4 H, Plt Count 194, MPV 9.1, Immature Gran % (Auto) 0.800, Neut % (Auto) 63.7, Lymph % (Auto) 24.1, [place] % (Auto) 10.4 H, Eos % (Auto) 0.3, Baso % (Auto) 0.7, Absolute Neuts (auto) 3.9, Absolute Lymphs (auto) 1.46, Nucleated RBC % 0.3, Sodium 136, Potassium 5.1, Chloride 100, Carbon Dioxide 26.0, Anion Gap 10, BUN 56 H, Creatinine 8.02 H*, Estim Creat Clear Calc 5.88, Est GFR (MDRD) Af Amer 6 L, Est GFR (MDRD) Non-Af 5 L, BUN/Creatinine Ratio 7.0 L, Glucose 136 H, Lactic Acid 3.3 H*, Calcium 9.3, Magnesium 1.9, Total Bilirubin 0.60, AST 73 H, ALT 41, Alkaline Phosphatase 101, Total Protein 6.5, Albumin 2.1 L, Globulin 4.4 H, Albumin/Globulin Ratio 0.5 L, Vitamin B12 627 08/09/24 06:46: POC Glucose 137 H 08/09/24 11:02: POC Glucose 111 H 08/09/24 15:55: POC Glucose 109 H Micro: Microbiology 08/09/24 01:57 Mucosa - Nose SARS-CoV-2, Influenza & RSV (PCR) - Final Imaging Radiology Impression Chest X-Ray 08/09/24 02:30 IMPRESSION: 1. Interval development of bilateral pleural effusions, left greater than right. The left lung base is opacified by the large left pleural effusion and underlying infiltrate such as atelectasis or pneumonia. 2. Patchy airspace disease has also developed at the right lung base, suspicious for pneumonia. Electronically Signed: Urbano Alvarez MD at 4:10 EST , Chest CT 08/09/24 03:22 IMPRESSION: Air-fluid level within the esophagus. Fluid within the trachea, mainstem bronchi, left upper lobe bronchus and within the left lower lobe bronchus, most likely secondary to aspiration. Airspace disease and groundglass opacities within the left upper lobe, right middle lobe and right lower lobe, consistent with aspiration pneumonitis the pneumonia could also be present. Bilateral pleural effusions with compressive atelectasis within the right lower lobe and lingula. Dense consolidation of the left lower lobe secondary to atelectasis and/or airspace disease such as pneumonia or aspiration pneumonitis. Electronically Signed: Urbano Alvarez MD at 5:00 EST ,
--- NOTE | 2024-08-09 17:56 | PCM.HOSP.N ---
Hospitalist Note Patient was seen and examined today, she is on 2 L of oxygen via nasal cannula. Chest x-ray this morning showed bilateral pleural effusions left greater than right, the left lung base was opacified by a large left pleural effusion and underlying infiltrate such as atelectasis or pneumonia, there was also noted to be patchy airspace disease in the right lung base suspicious for pneumonia. Patient was seen by nephrology today and underwent dialysis. CT of the chest showed an air-fluid level within the esophagus and fluid within the trachea mainstem bronchus left upper lobe bronchus and left lower lobe bronchus most likely secondary to aspiration, there was also airspace disease and groundglass opacities in the left upper lobe right middle lobe and right lower lobe consistent with aspiration pneumonitis, pneumonia could also be present. In addition there was bilateral pleural effusions with compressive atelectasis within the right lower lobe and lingula. Dense consolidation of the left lower lobe secondary to atelectasis and/or airspace disease such as pneumonia or aspiration pneumonitis is also present. Patient is currently on meropenem and Zyvox, I have made the decision to stop her Zyvox at this time. Patient's labs will be repeated tomorrow.
[2024-08-09] MEDS: Bisacodyl 10 MG Suppository RC (21:05)
[2024-08-09] MEDS: Atorvastatin Calcium 80 MG Tablet PO (21:16)
[2024-08-09] MEDS: levETIRAcetam 500 MG Tablet PO (21:16)
[2024-08-09 22:05] LABS: Bedside Glucose 109 mg/dL (74-106)
[2024-08-10] VITALS (18 sets, daily range): BP systolic 79–128; BP diastolic 24–72; PULSE 63–81; RESP 16–23; TEMP 36.4–37.4; O2SAT 96–100
[2024-08-10] MEDS: Sucralfate 1 GM Tablet PO ×4 (06:40→21:21)
[2024-08-10 06:42] LABS: Absolute Lymphocyte Count 1.12 X10^3/uL (0.83-4.51); Absolute Neutrophil Count 3.9 X10^3/uL (2.0-7.7); Basophil# 0.02 X10^3/uL; Basophil% 0.3 % (0-1); Eosinophil# 0.03 X10^3/uL; Eosinophils% 0.5 % (0-5); Hematocrit 21.1 % (37-47); Hemoglobin 6.7 g/dL (12.0-15.0); Lymphocyte # 1.12 X10^3/ul (0.83-4.51); Lymphocyte % 19.5 % (19-41); Mean Corp Hgb Conc 31.8 g/dL (32-36); Mean Corpuscular Hgb 31.9 pg (27.0-32.0); Mean Corpuscular Volume 100.5 fL (81-99); Mean Platelet Vol. 9.3 fl (6.2-12.0); Monocyte# 0.61 X10^3/uL; Monocyte% 10.6 % (0-10); NRBC Flagged by Analyzer 0.5 % (0-5); Neutrophil % 68.2 % (47-70); Platelet Count 193 K/mm3 (150-450); RBC Distribution Width SD 54.7 fl (35.1-43.9); White Blood Count 5.7 K/mm3 (4.4-11.0)
[2024-08-10 06:53] LABS: ALB/GLOB Ratio 0.5 RATIO (0.9-2.4); AST(SGOT) 63 U/L (15-37); Alanine Aminotransfer ALT/SGPT 45 U/L (13-56); Albumin, Serum 2.1 g/dL (3.2-5.0); Alkaline Phosphatase 98 U/L (45-117); Anion Gap 8 (5-15); BUN 31 mg/dL (7-18); BUN/Creat Ratio 5.7 RATIO (10-20); Calcium,Total 8.5 mg/dL (8.5-10.1); Chloride 100 mmol/L (98-107); EST Glomerular Filtration Rate 8 mL/min (>60); Est Glom Filt Rate - Afr Amer 10 mL/min (>60); Estimated Creatinine Clearance 8.75 ml/min; Globulin 4.2 g/dL (2.2-4.2); Glucose 110 mg/dL (74-106); Protein, Total 6.3 g/dL (6.4-8.2); Sodium Level 135 mmol/L (136-145)
[2024-08-10 06:59] LABS: Bedside Glucose 84 mg/dL (74-106)
[2024-08-10] MEDS: Albuterol 2.5 MG/3 ML VIAL.NEB. INHALATION ×3 (07:22→19:52)
[2024-08-10] MEDS: Carvedilol 12.5 MG Tablet PO (09:07)
[2024-08-10] MEDS: Midodrine HCl 5 MG Tablet 10 MG PO ×3 (09:14→17:02)
[2024-08-10] MEDS: levETIRAcetam 250 MG Tablet PO (09:16)
--- NOTE | 2024-08-10 09:45 | RAD_ITS ---
INDICATION: fluid overload -- portable EXAMINATION/TECHNIQUE: X-RAY - XR Chest 1 View COMPARISON: August 09, 2024 FINDINGS: LINES/DEVICES: There is a right-sided central venous catheter in place terminating within the expected region of the superior vena cava. LUNGS: There is a stable left pleural effusion. No pneumothorax. MEDIASTINUM AND CARDIOVASCULAR STRUCTURES: Cardiac silhouette not enlarged. Central airways and mediastinal contour are unremarkable. BONES AND SOFT TISSUES: Unremarkable. RAD/Chest 1 View (Portable) IMPRESSION: Stable left pleural effusion, cannot exclude associated left basilar consolidation. Electronically Signed: Kayy Izquierdo MD at 10:26 EST ,
--- NOTE | 2024-08-10 11:23 | PCM.PN.REN ---
Subjective Subjective Patient resting in bed, alert. No acute distress. Objective Data Objective Data Vital Signs: Vital Signs Temp Pulse Resp BP Pulse Ox O2 Del Method O2 Flow Rate 99.4 F H 75 18 79/37 L 100 Nasal Cannula 2 08/10/24 08:21 08/10/24 09:42 08/10/24 08:21 08/10/24 10:09 08/10/24 08:21 08/10/24 09:43 08/10/24 09:43 Oxygen Flow Rate (L/min) 2 Oxygen Delivery Method Nasal Cannula Weight: 63.5 kg Body Mass Index (BMI) 26.4 Intake & Output: Intake and Output for Last 24 Hours 08/08/24 08/09/24 08/10/24 23:59 23:59 23:59 Intake Total 1035 / 1035 300 / 300 Output Total 3037 / 3037 Balance -2001 / 300 / 300 Lab / Micro Data 08/10/24 05:37 08/10/24 05:37 Labs: Laboratory Results - last 24 hr 08/09/24 11:02: POC Glucose 111 H 08/09/24 15:55: POC Glucose 109 H 08/09/24 21:19: POC Glucose 109 H 08/10/24 05:37: WBC 5.7, RBC 2.10 L, Hgb 6.7 L, Hct 21.1 L, MCV 100.5 H, MCH 31.9, MCHC 31.8 L, RDW Std Deviation 54.7 H, RDW Coeff of Dottie 15.0 H, Plt Count 193, MPV 9.3, Immature Gran % (Auto) 0.900, Neut % (Auto) 68.2, Lymph % (Auto) 19.5, [place] % (Auto) 10.6 H, Eos % (Auto) 0.5, Baso % (Auto) 0.3, Absolute Neuts (auto) 3.9, Absolute Lymphs (auto) 1.12, Nucleated RBC % 0.5, Sodium 135 L, Potassium 4.0, Chloride 100, Carbon Dioxide 26.0, Anion Gap 8, BUN 31 H, Creatinine 5.40 H, Estim Creat Clear Calc 8.75, Est GFR (MDRD) Af Amer 10 L, Est GFR (MDRD) Non-Af 8 L, BUN/Creatinine Ratio 5.7 L, Glucose 110 H, Calcium 8.5, Total Bilirubin 0.60, AST 63 H, ALT 45, Alkaline Phosphatase 98, Total Protein 6.3 L, Albumin 2.1 L, Globulin 4.2, Albumin/Globulin Ratio 0.5 L 08/10/24 06:41: POC Glucose 84 08/10/24 09:00: Blood Type A POSITIVE, Antibody Screen NEGATIVE, Crossmatch See Detail Micro: Microbiology 08/09/24 01:57 Mucosa - Nose SARS-CoV-2, Influenza & RSV (PCR) - Final Radiography Diagnostic Testing: Radiology Impression Chest X-Ray 08/10/24 09:45 IMPRESSION: Stable left pleural effusion, cannot exclude associated left basilar consolidation. Electronically Signed: Kayy Izquierdo MD at 10:26 EST , Physical Exam Narrative Alert awake oriented no obvious distress s1s2 no murmurs lungs diminished breath sounds. No audible coarseness. On O2 @L abdomen soft, non tender no edema Tunneled HD catheter right chest dressing C/D/I Assessment & Plan Assessment/Plan (1) ESRD (end stage renal disease): PLAN: - ESRD; HD three times weekly. Had HD yesterday with ~3L UF. No acute indication for [facility] today, next HD tomorrow and attempt fluid removal as patient and bp tolerates. Can use midodrine prn during HD if needed. - Anemia. Hb was around 9 at the time of discharge. 7.2 yesterday --> today 6.2. Getting PRBC. Recently seen by GI at [facility], if does not get better consider transfer to [facility] campus - hypotension; will stop amlodipine and hydralazine. On Coreg 12.5 bid, will decrease coreg dose with holding parameters. Now on Midodrine.
[2024-08-10 12:37] LABS: Bedside Glucose 77 mg/dL (74-106)
[2024-08-10] MEDS: Calcium Acetate 667 MG Capsule 1334 MG PO ×2 (13:29→16:59)
[2024-08-10] MEDS: Ferrous Sulfate 325 MG Tablet PO (13:30)
[2024-08-10] MEDS: SEVELAMER CARBONATE 800 MG TABLET PO ×2 (13:31→17:01)
[2024-08-10] MEDS: Clopidogrel Bisulfate 75 MG Tablet PO (13:31)
[2024-08-10] MEDS: Lactobacillis Acidophilus 1 CAP PO ×3 (13:31→21:20)
[2024-08-10] MEDS: Amiodarone 200 MG Tablet 400 MG PO (16:58)
[2024-08-10] MEDS: Carvedilol 3.125 MG TABLET PO (16:59)
[2024-08-10 17:23] LABS: Bedside Glucose 117 mg/dL (74-106)
--- NOTE | 2024-08-10 18:36 | PCM.PN.HOSP ---
Reason for Visit Reason for Visit: Diagnoses Anemia, unspecified (08/09/24) Acidosis, unspecified (08/09/24) Pneumonitis due to inhalation of food and vomit (08/09/24) Pleural effusion, not elsewhere classified (08/09/24) End stage renal disease (08/09/24) Other abnormalities of breathing (08/09/24) Bilious vomiting (08/09/24) Dependence on renal dialysis (08/09/24) Subjective Subjective Patient was seen and examined today, I discussed her care with nephrology today. Patient's blood pressure medication was readjusted and several of her medications were stopped due to a low blood pressure today. Patient's white blood cell count was normal today, her hemoglobin was low at 6.7, oxygen requirement was 3.5 L. Patient was afebrile. Objective Data Objective Data Vital Signs: Vital Signs Temp Pulse Resp BP Pulse Ox O2 Del Method O2 Flow Rate 98.0 F 63 17 92/29 L 99 Nasal Cannula 3.5 08/10/24 17:07 08/10/24 17:07 08/10/24 17:07 08/10/24 17:07 08/10/24 17:07 08/10/24 17:07 08/10/24 17:07 Oxygen Flow Rate (L/min) 3.5 Oxygen Delivery Method Nasal Cannula Weight: 63.5 kg Body Mass Index (BMI) 26.4 Intake & Output: Intake and Output for Last 24 Hours 08/08/24 08/09/24 08/10/24 23:59 23:59 23:59 Intake Total 1035 / 1035 1000 / 1000 Output Total 3037 / 3037 Balance -2001 / 1000 / 1000 Lab / Micro Data 08/10/24 05:37 08/10/24 05:37 Labs: Laboratory Results - last 24 hr 08/09/24 21:19: POC Glucose 109 H 08/10/24 05:37: WBC 5.7, RBC 2.10 L, Hgb 6.7 L, Hct 21.1 L, MCV 100.5 H, MCH 31.9, MCHC 31.8 L, RDW Std Deviation 54.7 H, RDW Coeff of Dottie 15.0 H, Plt Count 193, MPV 9.3, Immature Gran % (Auto) 0.900, Neut % (Auto) 68.2, Lymph % (Auto) 19.5, [place] % (Auto) 10.6 H, Eos % (Auto) 0.5, Baso % (Auto) 0.3, Absolute Neuts (auto) 3.9, Absolute Lymphs (auto) 1.12, Nucleated RBC % 0.5, Sodium 135 L, Potassium 4.0, Chloride 100, Carbon Dioxide 26.0, Anion Gap 8, BUN 31 H, Creatinine 5.40 H, Estim Creat Clear Calc 8.75, Est GFR (MDRD) Af Amer 10 L, Est GFR (MDRD) Non-Af 8 L, BUN/Creatinine Ratio 5.7 L, Glucose 110 H, Calcium 8.5, Total Bilirubin 0.60, AST 63 H, ALT 45, Alkaline Phosphatase 98, Total Protein 6.3 L, Albumin 2.1 L, Globulin 4.2, Albumin/Globulin Ratio 0.5 L 08/10/24 06:41: POC Glucose 84 08/10/24 09:00: Blood Type A POSITIVE, Antibody Screen NEGATIVE, Crossmatch See Detail 08/10/24 12:14: POC Glucose 77 08/10/24 16:54: POC Glucose 117 H Micro: Microbiology 08/09/24 01:57 Mucosa - Nose SARS-CoV-2, Influenza & RSV (PCR) - Final Radiography Diagnostic Testing: Radiology Impression Chest X-Ray 08/10/24 09:45 IMPRESSION: Stable left pleural effusion, cannot exclude associated left basilar consolidation. Electronically Signed: Kayy Izquierdo MD at 10:26 EST , Physical Exam Const alert and no apparent distress Constitutional Narrative: Patient appears frail and unwell General Appearance: cooperative, well kempt and well developed Orientation / Consciousness: awake, oriented to person and oriented to place HEENT normocephalic, head/scalp atraumatic and moist oral mucous membranes Eyes PERRL, EOMs intact bilaterally and conjunctivae normal Neck supple, no JVD, thyroid normal and no carotid bruits General: trachea midline Resp normal respiratory effort, no retractions, no use of accessory muscles and clear to auscultation bilaterally Auscultation: Negative for rales, rhonchi or wheezes Cardio regular rate, regular rhythm, S1 normal heart sound, S2 normal heart sound, no murmurs, no rub and no gallops GI normal to inspection, nondistended, normoactive bowel sounds, soft to palpation, non-tender and non-distended Extremity no clubbing, cyanosis or edema Skin no rashes or lesions noted General Skin Exam: no breakdown Neuro CN's II-XII intact bilaterally, no focal motor deficits and no sensory deficits noted Sensorium / Orientation: awake, alert, oriented to person and oriented to place Speech: speech normal Psych Psych Narrative: Patient has flat affect Assessment & Plan Assessment/Plan (1) Aspiration pneumonia: QUALIFIERS: Aspiration pneumonia type: due to vomit Laterality: bilateral Lung location: unspecified part of lung Qualified Code(s): J69.0 - Pneumonitis due to inhalation of food and vomit PLAN: Plan 1. Aspiration pneumonia-patient will remain on her current antibiotic coverage #2 acute on chronic anemia-patient will be transfused 1 unit of packed red blood cells today, CBC will be rechecked #3 chronic hypoxic respiratory failure-it appears the patient's baseline [facility] #4 end-stage renal disease requiring dialysis-patient will undergo dialysis again tomorrow #5 bilateral pleural effusions-secondary to end-stage renal disease, again patient will undergo dialysis tomorrow #6 coronary artery disease-patient will remain on her current medications #7 seizure disorder-patient is on Keppra Acute on chronic hypoxic respiratory failure was ruled out, sepsis was ruled out Total clinical time spent by myself addressing the patient's medical issues, reviewing all of her data, and collaborating with patient's care team: 35 minutes Charges/Coding Visit Charges Inpatient E&M: 01244 Subs Hosp L2
[2024-08-10] MEDS: Gabapentin 100 MG Capsule PO (21:14)
[2024-08-10] MEDS: Meropenem 1 GM in 0.9% Normal Saline (100mL MB+) 100 ML IV (21:14)
[2024-08-10] MEDS: 0.9% Saline Lock 10 ML Syringe IV (21:18)
[2024-08-10] MEDS: Atorvastatin Calcium 80 MG Tablet PO (21:20)
[2024-08-10] MEDS: Heparin Injection (Vial) 5,000 UNIT/ML VIAL 5000 UNIT SC (21:20)
[2024-08-10] MEDS: Pantoprazole Sodium 40 MG Tablet PO (21:20)
[2024-08-10] MEDS: Menthol/Lanolin/Calamine/Znox 113 GM Tube 1 APPLIC TOPICAL (21:21)
[2024-08-10] MEDS: levETIRAcetam 500 MG Tablet PO (21:21)
[2024-08-10 22:26] LABS: Bedside Glucose 90 mg/dL (74-106)
[2024-08-10 22:44] LABS: Hematocrit 23.8 % (37-47); Hemoglobin 7.9 g/dL (12.0-15.0); Mean Corp Hgb Conc 33.2 g/dL (32-36); Mean Corpuscular Hgb 32.5 pg (27.0-32.0); Mean Corpuscular Volume 97.9 fL (81-99); Mean Platelet Vol. 9.3 fl (6.2-12.0); Platelet Count 209 K/mm3 (150-450); RBC Distribution Width CV 16.3 % (11.6-14.6); RBC Distribution Width SD 58.4 fl (35.1-43.9); Red Blood Count 2.43 M/mm3 (4.2-5.4)
[2024-08-11] VITALS (15 sets, daily range): BP systolic 95–183; BP diastolic 35–84; PULSE 62–78; RESP 16–20; TEMP 36.3–37.1; O2SAT 96–100; BMI 26.4; BMI 25.1
[2024-08-11 06:06] LABS: Absolute Neutrophil Count 3.3 X10^3/uL (2.0-7.7); Basophil# 0.05 X10^3/uL; Basophil% 0.8 % (0-1); Eosinophil# 0.13 X10^3/uL; Eosinophils% 2.2 % (0-5); Hematocrit 24.9 % (37-47); Hemoglobin 7.9 g/dL (12.0-15.0); Lymphocyte % 28.2 % (19-41); Mean Corp Hgb Conc 31.7 g/dL (32-36); Mean Corpuscular Hgb 31.3 pg (27.0-32.0); Mean Corpuscular Volume 98.8 fL (81-99); Mean Platelet Vol. 9.3 fl (6.2-12.0); Monocyte# 0.74 X10^3/uL; Monocyte% 12.3 % (0-10); NRBC Flagged by Analyzer 0.7 % (0-5); Neutrophil # 3.32 X10^3/uL (2.7-7.7); Neutrophil % 55.2 % (47-70); Platelet Count 214 K/mm3 (150-450); RBC Distribution Width CV 16.2 % (11.6-14.6); RBC Distribution Width SD 57.8 fl (35.1-43.9); Red Blood Count 2.52 M/mm3 (4.2-5.4)
[2024-08-11] MEDS: Sucralfate 1 GM Tablet PO ×3 (06:17→17:20)
[2024-08-11 06:35] LABS: Bedside Glucose 73 mg/dL (74-106)
[2024-08-11 06:47] LABS: Anion Gap 9 (5-15); BUN 41 mg/dL (7-18); Chloride 103 mmol/L (98-107); EST Glomerular Filtration Rate 6 mL/min (>60); Est Glom Filt Rate - Afr Amer 8 mL/min (>60); Estimated Creatinine Clearance 6.94 ml/min; Glucose 71 mg/dL (74-106); Potassium 4.2 mmol/L (3.5-5.1); Sodium Level 137 mmol/L (136-145)
[2024-08-11] MEDS: Ipratropium/Albuterol Sulfate 3 ML AMPUL.NEB INHALATION (06:53)
[2024-08-11] MEDS: Aspirin E.C. 81 MG Tablet PO (10:08)
[2024-08-11] MEDS: Lactobacillis Acidophilus 1 CAP PO ×2 (10:08→17:23)
[2024-08-11] MEDS: Pantoprazole Sodium 40 MG Tablet PO (10:08)
[2024-08-11] MEDS: Ferrous Sulfate 325 MG Tablet PO (10:08)
[2024-08-11] MEDS: Heparin Injection (Vial) 5,000 UNIT/ML VIAL 5000 UNIT SC (10:08)
[2024-08-11] MEDS: Calcium Acetate 667 MG Capsule 1334 MG PO ×2 (10:09→17:21)
[2024-08-11] MEDS: Carvedilol 3.125 MG TABLET PO ×2 (10:09→17:21)
[2024-08-11] MEDS: Amiodarone 200 MG Tablet 400 MG PO ×2 (10:09→17:20)
[2024-08-11] MEDS: Clopidogrel Bisulfate 75 MG Tablet PO (10:09)
[2024-08-11] MEDS: SEVELAMER CARBONATE 800 MG TABLET PO ×2 (10:09→17:22)
[2024-08-11] MEDS: Multivitamins,Therapeutic Tablet 1 TABLET PO (10:09)
[2024-08-11] MEDS: Ascorbic Acid 500 MG Tablet 1000 MG PO ×2 (10:10→17:23)
[2024-08-11] MEDS: Menthol/Lanolin/Calamine/Znox 113 GM Tube 1 APPLIC TOPICAL (10:10)
[2024-08-11] MEDS: Cholecalciferol (Vit D3) 125 MCG CAPSULE (5,000 UNITS) PO (10:11)
[2024-08-11] MEDS: Cinacalcet HCl 30 MG Tablet PO (10:22)
[2024-08-11] MEDS: Gabapentin 100 MG Capsule PO (10:28)
[2024-08-11] MEDS: Acetaminophen 325 MG Tablet 650 MG PO (10:28)
--- NOTE | 2024-08-11 10:42 | CASEMGMT ---
NIKKI LINARES Assessment: Face to Face with pt for initial transition planning/care coordination assessment. NIKKI LINARES introduced self and role at [facility], pt voices understanding and consents to assessment. Pt is A&O x4 and answers all questions appropriately at this time. Pt lying in bed in no distress. Pt daughter in room, pt agreeable to answering questions with family present. Care providers, pharmacy, and demographics verified/updated. Strata: 2 Admitting Dx: Acute blood loss anemia from GIB, Supratherapeutic PCP: Nimesh Specialists: Emmie, Cardiology Preferred Pharmacy: [facility] Insurance: [facility], [employer] Prescription Benefit: yes LNOK: Daughter, Rema; Daughter, Ermias Living Arrangements: Pt lives with daughter and son-in-law in an apartment with 0 steps to enter. ADLs: Pt requires assistance with ADLs and IADLs. Transportation: Pt family provides transportation. DME: Wheelchair, walker, lift chair, raised toilet seat, lift chair, O2 - 3L at night, does not know what company uses for oxygen. HHC/SNF: Previously at [facility], [facility] care while in [place]. Pt family states pt was living in [place], moved into an assisted living and fell several times. Palliative care was following pt while in [place], but has not set up palliative care since moving to [place]. Family decided to get an apartment for pt in [place] with no stairs and stay with her to provide care. Denies wanting a referral for palliative care in [place] at this time, denies [facility] services. Pt states no further concerns/needs. CM to follow. Advised pt to ask CM if any further question/concerns/needs arise, voices understanding. Pt Goal: Home Plan: Home with family assistance, follow for safe transition home. Mack JORDAN CM
[2024-08-11 11:13] LABS: Bedside Glucose 96 mg/dL (74-106)
[2024-08-11] MEDS: Isosorbide DN 20 MG Tablet PO (11:15)
--- NOTE | 2024-08-11 11:32 | PCM.PN.REN ---
Subjective Subjective No new complaints today. Hemoglobin stable now. Breathing is about the same. She says she is having abdominal cramping during dialysis. Objective Data Objective Data Vital Signs: Vital Signs Temp Pulse Resp BP Pulse Ox O2 Del Method O2 Flow Rate 97.4 F L 68 16 116/84 H 99 Nasal Cannula 2 08/11/24 10:04 08/11/24 10:04 08/11/24 10:04 08/11/24 10:04 08/11/24 10:04 08/11/24 10:04 08/11/24 10:04 Oxygen Flow Rate (L/min) 2 Oxygen Delivery Method Nasal Cannula Weight: 63.4 kg Body Mass Index (BMI) 26.4 Intake & Output: Intake and Output for Last 24 Hours 08/09/24 08/10/24 08/11/24 23:59 23:59 23:59 Intake Total 1035 / 1035 1000 / 1000 120 / 120 Output Total 3037 / 3037 Balance -2001 1000 / 1000 120 / 120 Lab / Micro Data 08/11/24 05:32 08/11/24 05:32 Labs: Laboratory Results - last 24 hr 08/10/24 09:00: Blood Type A POSITIVE, Antibody Screen NEGATIVE, Crossmatch See Detail 08/10/24 12:14: POC Glucose 77 08/10/24 16:54: POC Glucose 117 H 08/10/24 21:13: POC Glucose 90 08/10/24 22:25: WBC 7.0, RBC 2.43 L, Hgb 7.9 L, Hct 23.8 L, MCV 97.9, MCH 32.5 H, MCHC 33.2, RDW Std Deviation 58.4 H, RDW Coeff of Dottie 16.3 H, Plt Count 209, MPV 9.3 08/11/24 05:32: WBC 6.0, RBC 2.52 L, Hgb 7.9 L, Hct 24.9 L, MCV 98.8, MCH 31.3, MCHC 31.7 L, RDW Std Deviation 57.8 H, RDW Coeff of Dottie 16.2 H, Plt Count 214, MPV 9.3, Immature Gran % (Auto) 1.300 H, Neut % (Auto) 55.2, Lymph % (Auto) 28.2, [place] % (Auto) 12.3 H, Eos % (Auto) 2.2, Baso % (Auto) 0.8, Absolute Neuts (auto) 3.3, Absolute Lymphs (auto) 1.70, Nucleated RBC % 0.7, Sodium 137, Potassium 4.2, Chloride 103, Carbon Dioxide 25.0, Anion Gap 9, BUN 41 H, Creatinine 6.80 H, Estim Creat Clear Calc 6.94, Est GFR (MDRD) Af Amer 8 L, Est GFR (MDRD) Non-Af 6 L, BUN/Creatinine Ratio 6.0 L, Glucose 71 L, Calcium 9.0 08/11/24 06:16: POC Glucose 73 L 08/11/24 10:52: POC Glucose 96 Micro: Microbiology 08/09/24 03:02 Blood Culture (Wb) - Left Hand Blood Culture - Preliminary No growth in 48 hours. 08/09/24 02:17 Blood Culture (Wb) - Right Wrist Blood Culture - Preliminary No growth in 48 hours. 08/09/24 01:57 Mucosa - Nose SARS-CoV-2, Influenza & RSV (PCR) - Final Physical Exam Narrative Alert awake oriented no obvious distress s1s2 no murmurs lungs diminished breath sounds. No audible coarseness. On O2 @L abdomen soft, non tender no edema Tunneled HD catheter right chest dressing C/D/I Assessment & Plan Assessment/Plan (1) ESRD (end stage renal disease): PLAN: - ESRD; HD three times weekly. Dialysis today. Will try to remove about 3 to 4 L as tolerated. Has significant cramping. - Anemia. Hemoglobin around 9 with discharge from [facility] around second week of July. Hemoglobin was 6.7, status post PRBC, better. Recently had EGD and colonoscopy with gastroenterology with no obvious source. She will need capsule endoscopy if she continues to bleed.
[2024-08-11] MEDS: Albuterol 2.5 MG/3 ML VIAL.NEB. INHALATION ×2 (12:24→19:30)
--- NOTE | 2024-08-11 13:20 | CASEMGMT ---
Discharge Planning [facility] notified that pt may return today/tomorrow. Requested phone/fax. Neva Hernandez DC Planning Asst.
[2024-08-11] MEDS: 0.9% Normal Saline 1,000 ML IV.SOLN. 1000 ML OPERA.SITE (14:05)
[2024-08-11] MEDS: PureFlow B 2K Dialysis Soln 1 BAG 6 BAG PF (14:05)
[2024-08-11] MEDS: Midodrine HCl 5 MG Tablet 10 MG PO (14:05)
[2024-08-11] MEDS: 0.9% Saline Lock 10 ML Syringe IV (14:06)
[2024-08-11] MEDS: Heparin 10,000 UNITS/10 ML Vial IV (14:07)
--- NOTE | 2024-08-11 16:25 | PCM.TXEXTCAR ---
Diet Diet Order/Speech Therapy: 08/09/24 09:48 Diet: Renal - ConsCHO - Jasiel Cont Food consistency:: Soft & Bite Sized Liquid Consistency:: Regular/Thin Type of Dietary Supplement:: Nepro Diet Comments: 240 ml nepro w/ meals tid - prefers strawberry How many daily calories?: 1800 calorie Routine Orders/Code Status Routine Lab Work: CBC (In 1 week) Code Status: Full Code DC O2, CPAP, BIPAP needs MD Home O2 Instructions: Oxygen at 2 L/min via nasal cannula, titrate to maintain pulse ox of 90% or greater Additional Home O2 Discharge instructions: No Wound(s) Left Groin: Wound Type: Skin Tear Therapies Weight Bearing: Weight bearing as tolerated Problem/Diagnosis (1) ESRD (end stage renal disease): Status: Acute Code(s): N18.6 - End stage renal disease Plan 1. Aspiration pneumonia-patient will remain on her current antibiotic coverage #2 acute on chronic anemia-patient will be transfused 1 unit of packed red blood cells today, CBC will be rechecked #3 chronic hypoxic respiratory failure-it appears the patient's baseline oxygen requirement [facility] #4 end-stage renal disease requiring dialysis-patient underwent dialysis on 08/11/2024 #5 bilateral pleural effusions-secondary to end-stage renal disease #6 coronary artery disease-patient will remain on her current medications #7 seizure disorder-patient is on Keppra Acute on chronic hypoxic respiratory failure was ruled out, sepsis was ruled out Total clinical time spent by myself addressing the patient's medical issues, reviewing all of her data, and collaborating with patient's care team: 35 minutes Allergies/Procedures Done in Hospital Allergies ceftriaxone Allergy (Severe, Verified 08/09/24 01:49) Rash vancomycin Allergy (Unknown, Verified 08/09/24 01:49) Rash pt unsure of severity of rash Penicillins Allergy (Verified 08/09/24 01:49) Swelling throat swells oxycodone HCl (From Percocet) Adverse Reaction (Intermediate, Verified 08/09/24 01:49) Itching very itchy Procedures: Dialysis Type of Care/Length of Stay Estimated LOS: More Than 30 Days Type of Care Needed: Intermediate Rehab Potential: Fair Prognosis: Fair Additional Orders/Day of Discharge H&P will serve as current which was dated: 08/09/24 Day of Discharge: 08/11/24 Dietary and Speech Recommendations Dietitian Recommendations/Changes: Continue 1800 calorie controlled/consistent carbohydrate - renal general diet. Will order 240ml aceves nepro TID with meals. Will monitor weight, as available. Reviewed and approved by Anabel Richardson RD, LD. Discharge Plan Admission Admit Date/Time: 08/09/24 04:09 Primary Reason for Your Visit: Aspiration pneumonia Attending Provider: Deep Ann Primary Care Provider: Leigha Longoria Consulting Providers: Africa Gaytan; Darrion Mari Discharge Orders/Prescriptions Prescriptions: New acetaminophen 325 mg Tablet 650 mg PO Q6H PRN PRN (Reason: Pain 1-10 Or Fever>100.7) Qty: 0 0RF amiodarone 200 mg Tablet 200 mg PO DAILY Qty: 0 0RF clopidogrel 75 mg Tablet 75 mg PO DAILY Qty: 0 0RF carvedilol 3.125 mg Tablet 3.125 mg PO BIDCM Qty: 0 0RF isosorbide dinitrate 20 mg Tablet 20 mg PO BID Qty: 0 0RF cholecalciferol (vitamin D3) 125 mcg (5,000 unit) Capsule 125 mcg PO DAILY Qty: 0 0RF cinacalcet 30 mg Tablet 30 mg PO DAILYCM Qty: 0 0RF calcium acetate(phosphat bind) 667 mg Capsule 1,334 mg PO TIDCM Qty: 0 0RF menthol-zinc oxide [Calmoseptine] 0.44-20.6 % Ointment 1 applic topical BID Qty: 0 0RF Protocol: *Topical Application Instructions APPLICATION INSTRUCTIONS: Apply to bilateral buttocks and coccyx sucralfate 1 gram Tablet 1 g PO 1HR_ACHS Qty: 0 0RF midodrine 5 mg Tablet 10 mg PO TIDCM Qty: 0 0RF pantoprazole 40 mg Tablet,Delayed Release (Dr/Ec) 40 mg PO BID Qty: 0 0RF ondansetron 4 mg Tablet,Disintegrating 4 mg PO Q8H PRN PRN (Reason: nausea and vomiting) Qty: 0 0RF sevelamer carbonate 800 mg Tablet 800 mg PO TIDCM Qty: 0 0RF cefdinir 300 mg capsule 300 mg PO DAILY Qty: 1 0RF Rx Instructions: For 7 days beginning 08/12/2024, then discontinue metronidazole 500 mg tablet 500 mg PO TID Qty: 21 0RF Rx Instructions: 1 3 times a day beginning 08/12/2024, complete 7 days of treatment then discontinue Continued multivitamin with folic acid [Daily-Caron (with folic acid)] 400 mcg tablet 1 tab PO DAILY albuterol sulfate 90 mcg/actuation HFA aerosol inhaler 2 puff inhalation Q6H gabapentin 100 mg capsule 100 mg PO Q12H guaifenesin [Chest Congestion Relief] 100 mg/5 mL liquid 200 mg PO Q4H PRN (Reason: cough) aluminum-magnesium hydroxide 225-200 mg/5 mL suspension 30 ml PO Q4H PRN PRN (Reason: GI DISTRESS) bisacodyl 10 mg suppository 10 mg [place] DAILY PRN (Reason: constipation) Rx Instructions: IF NO BM IN 4 DAYS Enema 19-7 gram/118 mL enema 118 ml [place] DAILY PRN (Reason: constipation) ipratropium-albuterol 0.5 mg-3 mg(2.5 mg base)/3 mL solution for nebulization 3 ml inhalation Q6H PRN (Reason: shortness of breath) levetiracetam 250 mg tablet 250 mg PO .COMPLEX Rx Instructions: 250 mg orally orally EVERY FRIDAY, FRIDAY, FRIDAY, FRIDAY; orally EVERY FRIDAY, FRIDAY, FRIDAY, FRIDAY levetiracetam 500 mg tablet 500 mg PO QHS losartan 25 mg tablet 25 mg PO DAILY aspirin 81 mg tablet,delayed release (DR/EC) See Rx Instructions .ROUTE .COMPLEX Qty: 90 3RF Dose Instruction: TAKE 1 TABLET BY MOUTH DAILY Rx Instructions: TAKE 1 TABLET BY MOUTH DAILY ferrous sulfate [FeroSul] 325 mg (65 mg iron) tablet 325 mg PO DAILY Qty: 90 1RF atorvastatin 80 mg tablet 80 mg PO QHS Qty: 30 1RF Discontinued sevelamer carbonate 800 mg tablet 800 mg PO TID pantoprazole 40 mg Tablet,Delayed Release (Dr/Ec) 40 mg PO BID Qty: 60 2RF amiodarone 200 mg tablet 400 mg PO BID metoprolol succinate 50 mg tablet extended release 24 hr 50 mg PO DAILY midodrine 10 mg tablet 10 mg PO Q24H PRN (Reason: hypotension) Rx Instructions: FOR SBP BELOW 95 ondansetron HCl 4 mg tablet 4 mg PO Q8H PRN PRN (Reason: nausea and vomiting) Referrals / Follow Up: Prince Cummins DO [Med Staff - Dispatcher Service Or Work] - Leigha Longoria MD [Primary Care Provider] - Disposition Disposition (needs filled in before D/C Order can be placed): NonSkilled NH/Intermed Care
--- NOTE | 2024-08-11 16:42 | PCM.DC.SUM ---
Providers Date of Admission: 08/09/24 Date of Discharge: 08/11/24 Primary Care Physician: Dr. Leigha Longoria MD Consultations 08/09/24 04:33 Consult: Nephrology Routine Consulting Provider: Africa Gaytan Reason for Consult: ESRD on HD () EMERGENT Consult: No MD Notified: Yes Date Notified: 08/09/24 Time Notified: 06:24 Method of Notification: Answering Service Reason For Visit: ASPIRATION PNEUMONIA & ACUTE ON CHRONIC Diagnosis Discharge Diagnosis (1) ESRD (end stage renal disease): Status: Acute Code(s): N18.6 - End stage renal disease Plan 1. Aspiration pneumonia-patient will remain on her current antibiotic coverage #2 acute on chronic anemia-patient will be transfused 1 unit of packed red blood cells today, CBC will be rechecked #3 chronic hypoxic respiratory failure-it appears the patient's baseline oxygen requirement is 3 L at the [facility] previously #4 end-stage renal disease requiring dialysis-patient underwent dialysis on 08/11/2024 #5 bilateral pleural effusions-secondary to end-stage renal disease #6 coronary artery disease-patient will remain on her current medications #7 seizure disorder-patient is on Keppra Acute on chronic hypoxic respiratory failure was ruled out, sepsis was ruled out Total clinical time spent by myself addressing the patient's medical issues, reviewing all of her data, and collaborating with patient's care team: 35 minutes Medications at Discharge Home Medications aspirin 81 mg tablet,delayed release See Rx Instructions .Route .COMPLEX #90 tabs 05/20/24 multivitamin with folic acid 400 mcg tablet (Daily-Caron (with folic acid)) 1 tab PO DAILY vitamin 05/20/24 ferrous sulfate 325 mg (65 mg iron) tablet (FeroSul) 325 mg PO DAILY SUPPLEMENT #90 tabs 05/28/24 atorvastatin 80 mg tablet 80 mg PO QHS CHOLESTEROL #30 tabs 07/01/24 albuterol sulfate 90 mcg/actuation aerosol inhaler 2 puff inhalation Q6H 08/09/24 aluminum-magnesium hydroxide 225 mg-200 mg/5 mL oral suspension 30 ml PO Q4H PRN PRN GI DISTRESS 08/09/24 bisacodyl 10 mg rectal suppository 10 mg [place] DAILY PRN constipation 08/09/24 gabapentin 100 mg capsule 100 mg PO Q12H 08/09/24 guaifenesin 100 mg/5 mL oral liquid (Chest Congestion Relief) 200 mg PO Q4H PRN cough 08/09/24 ipratropium 0.5 mg-albuterol 3 mg (2.5 mg base)/3 mL nebulization soln 3 ml inhalation Q6H PRN shortness of breath 08/09/24 levetiracetam 250 mg tablet 250 mg PO .COMPLEX SEIZURES 08/09/24 levetiracetam 500 mg tablet 500 mg PO QHS 08/09/24 losartan 25 mg tablet 25 mg PO DAILY 08/09/24 sodium phosphates 19 gram-7 gram/118 mL enema (Enema) 118 ml [place] DAILY PRN constipation 08/09/24 acetaminophen 325 mg tablet 650 mg (2 x 325 mg) PO Q6H PRN PRN Pain 1-10 Or Fever>100.7 #0 tabs 08/11/24 amiodarone 200 mg tablet 200 mg PO DAILY #0 tabs 08/11/24 calcium acetate(phosphat bind) 667 mg capsule 1,334 mg (2 x 667 mg) PO TIDCM #0 caps 08/11/24 carvedilol 3.125 mg tablet 3.125 mg PO BIDCM #0 tabs 08/11/24 cefdinir 300 mg capsule 300 mg PO DAILY #1 cap 08/11/24 cholecalciferol (vitamin D3) 125 mcg (5,000 unit) capsule 125 mcg PO DAILY #0 caps 08/11/24 cinacalcet 30 mg tablet 30 mg PO DAILYCM #0 tabs 08/11/24 clopidogrel 75 mg tablet 75 mg PO DAILY #0 tabs 08/11/24 isosorbide dinitrate 20 mg tablet 20 mg PO BID #0 tabs 08/11/24 menthol 0.44 %-zinc oxide 20.6 % topical ointment (Calmoseptine) 1 applic topical BID #0 grams 08/11/24 metronidazole 500 mg tablet 500 mg PO TID #21 tabs 08/11/24 midodrine 5 mg tablet 10 mg (2 x 5 mg) PO TIDCM #0 tabs 08/11/24 ondansetron 4 mg disintegrating tablet 4 mg PO Q8H PRN PRN nausea and vomiting #0 tabs 11/27/24 pantoprazole 40 mg tablet,delayed release 40 mg PO BID #0 tabs 08/11/24 sevelamer carbonate 800 mg tablet 800 mg PO TIDCM #0 tabs 08/11/24 sucralfate 1 gram tablet 1 g PO 1HR_ACHS #0 tabs 08/11/24 Hospital Course Operations None Procedures Blood transfusion and Dialysis Summary of Care Provided Minutes Spent on Discharge: 32 Hospital Course: This 68-year-old black female was seen in the emergency room at [facility] after being transported in from an intermediate care facility at which she is a resident due to lethargy and abnormal lung sounds. Patient admitted to vomiting twice at the nursing facility, she did complain of a productive cough. Patient is on chronic oxygen at her facility. CBC was abnormal for hemoglobin of 7.3, chemistry panel was remarkable for creatinine of 8.33 and a BUN of 53. Lactic acid was elevated at 3.4 chest x-ray showed increased interstitial markings at the right base and pleural effusion bilaterally worse on the left. Patient was felt to have aspiration pneumonia and she was admitted to PCU and placed on IV antibiotics and seen in consultation by nephrology. There were no major complications during her hospitalization, due to hypotension her blood pressure medications had to be readjusted, she did receive 1 unit of packed red blood cells. On 08/11/2024, patient was seen and examined: On examination she appeared frail and older than her stated age, she does not appear to be in any distress. Vital signs as documented. Skin warm and dry and without overt rashes. Neck without JVD, thyroid appears normal, trachea is midline, neck is supple. Lungs clear, normal air movement was noted. Heart exam notable for regular rhythm, normal sounds and absence of murmurs, rubs or gallops. Abdomen unremarkable and without evidence of organomegaly, masses, or abdominal aortic enlargement, bowel sounds are present in all 4 quadrants, no abdominal tenderness was noted. Extremities nonedematous, no cyanosis was noted, no clubbing was noted. Neuro: Cranial nerves II through XII are grossly intact, no focal motor deficits were noted, sensation to light touch and pinprick is intact, motor exam 5/5 throughout. Psych: Patient is alert and oriented x3, she does not appear anxious or depressed, she does not appear agitated. Patient was discharged back to her intermediate care facility on 08/11/2024 in stable condition. Weight / BMI Weight Weight: 60.4 kg Body Mass Index (BMI) 25.1 ABG / Lab / Microbiology Data 08/11/24 05:32 08/11/24 05:32 Laboratory: Laboratory Results - last 24 hr 08/10/24 16:54: POC Glucose 117 H 08/10/24 21:13: POC Glucose 90 08/10/24 22:25: WBC 7.0, RBC 2.43 L, Hgb 7.9 L, Hct 23.8 L, MCV 97.9, MCH 32.5 H, MCHC 33.2, RDW Std Deviation 58.4 H, RDW Coeff of Dottie 16.3 H, Plt Count 209, MPV 9.3 08/11/24 05:32: WBC 6.0, RBC 2.52 L, Hgb 7.9 L, Hct 24.9 L, MCV 98.8, MCH 31.3, MCHC 31.7 L, RDW Std Deviation 57.8 H, RDW Coeff of Dottie 16.2 H, Plt Count 214, MPV 9.3, Immature Gran % (Auto) 1.300 H, Neut % (Auto) 55.2, Lymph % (Auto) 28.2, [place] % (Auto) 12.3 H, Eos % (Auto) 2.2, Baso % (Auto) 0.8, Absolute Neuts (auto) 3.3, Absolute Lymphs (auto) 1.70, Nucleated RBC % 0.7, Sodium 137, Potassium 4.2, Chloride 103, Carbon Dioxide 25.0, Anion Gap 9, BUN 41 H, Creatinine 6.80 H, Estim Creat Clear Calc 6.94, Est GFR (MDRD) Af Amer 8 L, Est GFR (MDRD) Non-Af 6 L, BUN/Creatinine Ratio 6.0 L, Glucose 71 L, Calcium 9.0 08/11/24 06:16: POC Glucose 73 L 08/11/24 10:52: POC Glucose 96 Microbiology: Microbiology 08/09/24 03:02 Blood Culture (Wb) - Left Hand Blood Culture - Preliminary No growth in 48 hours. 08/09/24 02:17 Blood Culture (Wb) - Right Wrist Blood Culture - Preliminary No growth in 48 hours. 08/09/24 01:57 Mucosa - Nose SARS-CoV-2, Influenza & RSV (PCR) - Final D/C Instructions DC O2, CPAP, BIPAP Needs Additional Home O2 Discharge instructions: Yes Type of respiratory needs?: Oxygen (2 liters) Oxygen frequency: Continuous Continuous oxygen liters per minute: 2 DC home with Oxygen: Yes Home O2 MD Review: I have reviewed the oxygen testing, and the patient qualifies for home oxygen equipment and portability. The patient is mobile in the home and the community. Meaningful Use Info Meaningful Use Meaningful Use Diagnoses (Choose all that apply): None applicable Ischemic Stroke Statin Dosing Therapy Reference: STATIN DOSE THERAPY REFERENCE: * Patients > 75 years receive moderate or high dose statin therapy. * Patients 75 years or YOUNGER should receive HIGH intensity statin dose unless contraindicated. You will be required to document reason for non-treatment if statin daily dose does not meet guidelines. HIGH DOSE STATIN THERAPY DAILY Atorvastatin > than or = to 40 mg Rosuvastatin > than or = to 20 mg Amlodipine + Atorvastatin > than or = to 2.5/40 mg Ezetimibe + Simvastatin 10/80 mg Simvastatin 80mg Discharge Plan Admission Admit Date/Time: 08/09/24 04:09 Primary Reason for Your Visit: Aspiration pneumonia Attending Provider: Deep Ann Primary Care Provider: Leigha Longoria Consulting Providers: Africa Gaytan; Darrion Mari Discharge Orders/Prescriptions Prescriptions: New acetaminophen 325 mg Tablet 650 mg PO Q6H PRN PRN (Reason: Pain 1-10 Or Fever>100.7) Qty: 0 0RF amiodarone 200 mg Tablet 200 mg PO DAILY Qty: 0 0RF clopidogrel 75 mg Tablet 75 mg PO DAILY Qty: 0 0RF carvedilol 3.125 mg Tablet 3.125 mg PO BIDCM Qty: 0 0RF isosorbide dinitrate 20 mg Tablet 20 mg PO BID Qty: 0 0RF cholecalciferol (vitamin D3) 125 mcg (5,000 unit) Capsule 125 mcg PO DAILY Qty: 0 0RF cinacalcet 30 mg Tablet 30 mg PO DAILYCM Qty: 0 0RF calcium acetate(phosphat bind) 667 mg Capsule 1,334 mg PO TIDCM Qty: 0 0RF menthol-zinc oxide [Calmoseptine] 0.44-20.6 % Ointment 1 applic topical BID Qty: 0 0RF Protocol: *Topical Application Instructions APPLICATION INSTRUCTIONS: Apply to bilateral buttocks and coccyx sucralfate 1 gram Tablet 1 g PO 1HR_ACHS Qty: 0 0RF midodrine 5 mg Tablet 10 mg PO TIDCM Qty: 0 0RF pantoprazole 40 mg Tablet,Delayed Release (Dr/Ec) 40 mg PO BID Qty: 0 0RF ondansetron 4 mg Tablet,Disintegrating 4 mg PO Q8H PRN PRN (Reason: nausea and vomiting) Qty: 0 0RF sevelamer carbonate 800 mg Tablet 800 mg PO TIDCM Qty: 0 0RF cefdinir 300 mg capsule 300 mg PO DAILY Qty: 1 0RF Rx Instructions: For 7 days beginning 08/12/2024, then discontinue metronidazole 500 mg tablet 500 mg PO TID Qty: 21 0RF Rx Instructions: 1 3 times a day beginning 08/12/2024, complete 7 days of treatment then discontinue Continued multivitamin with folic acid [Daily-Caron (with folic acid)] 400 mcg tablet 1 tab PO DAILY albuterol sulfate 90 mcg/actuation HFA aerosol inhaler 2 puff inhalation Q6H gabapentin 100 mg capsule 100 mg PO Q12H guaifenesin [Chest Congestion Relief] 100 mg/5 mL liquid 200 mg PO Q4H PRN (Reason: cough) aluminum-magnesium hydroxide 225-200 mg/5 mL suspension 30 ml PO Q4H PRN PRN (Reason: GI DISTRESS) bisacodyl 10 mg suppository 10 mg [place] DAILY PRN (Reason: constipation) Rx Instructions: IF NO BM IN 4 DAYS Enema 19-7 gram/118 mL enema 118 ml [place] DAILY PRN (Reason: constipation) ipratropium-albuterol 0.5 mg-3 mg(2.5 mg base)/3 mL solution for nebulization 3 ml inhalation Q6H PRN (Reason: shortness of breath) levetiracetam 250 mg tablet 250 mg PO .COMPLEX Rx Instructions: 250 mg orally orally EVERY FRIDAY, FRIDAY, FRIDAY, FRIDAY; orally EVERY FRIDAY, FRIDAY, FRIDAY, FRIDAY levetiracetam 500 mg tablet 500 mg PO QHS losartan 25 mg tablet 25 mg PO DAILY aspirin 81 mg tablet,delayed release (DR/EC) See Rx Instructions .ROUTE .COMPLEX Qty: 90 3RF Dose Instruction: TAKE 1 TABLET BY MOUTH DAILY Rx Instructions: TAKE 1 TABLET BY MOUTH DAILY ferrous sulfate [FeroSul] 325 mg (65 mg iron) tablet 325 mg PO DAILY Qty: 90 1RF atorvastatin 80 mg tablet 80 mg PO QHS Qty: 30 1RF Discontinued sevelamer carbonate 800 mg tablet 800 mg PO TID pantoprazole 40 mg Tablet,Delayed Release (/Ec) 40 mg PO BID Qty: 60 2RF amiodarone 200 mg tablet 400 mg PO BID metoprolol succinate 50 mg tablet extended release 24 hr 50 mg PO DAILY midodrine 10 mg tablet 10 mg PO Q24H PRN (Reason: hypotension) Rx Instructions: FOR SBP BELOW 95 ondansetron HCl 4 mg tablet 4 mg PO Q8H PRN PRN (Reason: nausea and vomiting) Referrals / Follow Up: Prince Cummins DO [Med Staff - Board Certified Arts Therapist] - Leigha Longoria MD [Primary Care Provider] - Disposition Disposition (needs filled in before D/C Order can be placed): NonSkilled NH/Intermed Care Charges/Coding Visit Charges Inpatient E&M: 24197 Disch Hosp >30min
[2024-08-11] MEDS: Meropenem 1 GM in 0.9% Normal Saline (100mL MB+) 100 ML IV (17:30)
[2024-08-11 18:32] LABS: Bedside Glucose 80 mg/dL (74-106)
--- NOTE | 2024-08-11 18:46 | NURSING ---
Report called to MIKE Cruz at [facility] at 1842.
[2024-08-11 22:01] LABS: Bedside Glucose 90 mg/dL (74-106)
== END 2024-08-11 21:54 | disposition intermediate care facility (04) | DRG 137 ==
LOC: ED 04:00 → PCU 04:37
PROVIDERS: Hospitalist; Admitting Provider Internal Medicine; Emergency Provider Emergency Medicine; PCP Internal Medicine; Visit Provider Internal Medicine
DX: J69.0 Pneumonitis due to inhalation of food and vomit (principal); I13.2 Hypertensive heart and chronic kidney disease with heart failure and with stage 5 chronic kidney disease, or end stage renal disease; N18.6 End stage renal disease; D63.1 Anemia in chronic kidney disease; I50.22 Chronic systolic (congestive) heart failure; E11.22 Type 2 diabetes mellitus with diabetic chronic kidney disease; G40.909 Epilepsy, unspecified, not intractable, without status epilepticus; J96.11 Chronic respiratory failure with hypoxia; E11.40 Type 2 diabetes mellitus with diabetic neuropathy, unspecified; E11.51 Type 2 diabetes mellitus with diabetic peripheral angiopathy without gangrene; I25.10 Atherosclerotic heart disease of native coronary artery without angina pectoris; Z99.2 Dependence on renal dialysis; I25.2 Old myocardial infarction; E78.5 Hyperlipidemia, unspecified; E66.3 Overweight; Z68.29 Body mass index [BMI] 29.0-29.9, adult; Z87.891 Personal history of nicotine dependence; Z79.51 Long term (current) use of inhaled steroids; Z79.82 Long term (current) use of aspirin; Z79.899 Other long term (current) drug therapy; Z86.73 Personal history of transient ischemic attack (TIA), and cerebral infarction without residual deficits
CPT/HCPCS: 36415; 71045; 71046; 71250; 80048; 80053; 82607; 82728; 82746; 82962; 83540; 83550; 83605; 83735; 83880; 84443; 85025; 85027; 86850; 86900; 86901; 86920; 86922; 87040; 87631; 90937; 92526; 92610; 93005; 94640; 94668; 97802; 99252; 99285; J2020; J2185; J7030; J7040; P9016; A4216; G0257; G0463

== ENCOUNTER 2024-08-13 07:50 | Emergency (ER) | payer MEDICAID, SELFPAY ==
[2024-08-13 07:51] VITALS: BP 133/57; PULSE 59; RESP 16; TEMP 36.2; O2SAT 100; BMI 25.4
[2024-08-13 07:55] VITALS: O2SAT 99
--- NOTE | 2024-08-13 08:16 | EDS_ITS ---
HPI History of Present Illness Chief Complaint: Head Injury Detail of Chief Complaint: Fall with head injury Informant: patient Narrative Narrative: Patient presents to the emergency department after sustaining a fall and injuring her head yesterday. Patient states that she fell out of her wheelchair and hit her head on concrete. She denies loss of consciousness. Currently rates her headache a 1 out of 10. She has had no nausea or vomiting. Patient apparently on Plavix. Patient with recent hospital admission and diagnosis of pneumonia. She has history of chronic kidney disease and is on dialysis. Patient denies any other injuries. Patient from jail. [facility] Medical History End stage renal disease Subendocardial ischemia Chest pressure Pulmonary edema Elevated troponin level Acute hypoxic respiratory failure Elevated troponin ESRD (end stage renal disease) on dialysis Acute blood loss anemia CAD (coronary artery disease) (HFpEF) heart failure with preserved ejection fraction Acute respiratory failure with hypoxia Alcohol use Wears dentures Shingles outbreak Arthritis Dietary restriction Normal Holter exam History of echocardiogram Cardiology follow-up encounter History of heart attack CHF (congestive heart failure) Severe protein-calorie malnutrition Malnutrition of moderate degree COPD (chronic obstructive pulmonary disease) Substance abuse Dialysis patient GI bleed Hepatitis Hypertension History of hypertension Chronic progressive renal failure TIA (transient ischemic attack) End-stage renal disease on hemodialysis PONV (postoperative nausea and vomiting) Post-menopausal Wears glasses Ambulates with cane High cholesterol Easy bruising Edentulous Gastric reflux On home oxygen therapy Former smoker Shortness of breath on exertion Leg cramps Hyponatremia ESRD (end stage renal disease) on dialysis Acute and chronic respiratory failure with hypoxia Chronic kidney disease, stage V requiring chronic dialysis Cardiac dysrhythmia, unspecified NSTEMI, initial episode of care Anemia Asthma Stroke Diabetes Rheumatoid arthritis Type II diabetes mellitus Hypertension Home Medications ?Medication ?Instructions ?Recorded ?Last Taken ?Type aspirin 81 mg tablet,delayed See Rx Instructions .Route 05/20/24 Unknown Rx release .COMPLEX #90 tabs multivitamin with folic acid 400 1 tab PO DAILY vitamin 05/20/24 Unknown History mcg tablet (Daily-Caron (with folic acid)) ferrous sulfate 325 mg (65 mg 325 mg PO DAILY SUPPLEMENT #90 tabs 05/28/24 Unknown Rx iron) tablet (FeroSul) atorvastatin 80 mg tablet 80 mg PO QHS CHOLESTEROL #30 tabs 07/01/24 Unknown Rx albuterol sulfate 90 mcg/actuation 2 puff inhalation Q6H 08/09/24 Unknown History aerosol inhaler aluminum-magnesium hydroxide 225 30 ml PO Q4H PRN PRN GI DISTRESS 08/09/24 Unknown History mg-200 mg/5 mL oral suspension bisacodyl 10 mg rectal suppository 10 mg CO DAILY PRN constipation 08/09/24 Unknown History gabapentin 100 mg capsule 100 mg PO Q12H 08/09/24 Unknown History guaifenesin 100 mg/5 mL oral 200 mg PO Q4H PRN cough 08/09/24 Unknown History liquid (Chest Congestion Relief) ipratropium 0.5 mg-albuterol 3 mg 3 ml inhalation Q6H PRN shortness 08/09/24 Unknown History (2.5 mg base)/3 mL nebulization of breath soln levetiracetam 250 mg tablet 250 mg PO .COMPLEX SEIZURES 08/09/24 Unknown History levetiracetam 500 mg tablet 500 mg PO QHS 08/09/24 Unknown History losartan 25 mg tablet 25 mg PO DAILY 08/09/24 Unknown History sodium phosphates 19 gram-7 118 ml CO DAILY PRN constipation 08/09/24 Unknown History gram/118 mL enema (Enema) acetaminophen 325 mg tablet 650 mg (2 x 325 mg) PO Q6H PRN PRN 08/11/24 Unknown Rx Pain 1-10 Or Fever>100.7 #0 tabs amiodarone 200 mg tablet 200 mg PO DAILY #0 tabs 08/11/24 Unknown Rx calcium acetate(phosphat bind) 667 1,334 mg (2 x 667 mg) PO TIDCM #0 08/11/24 Unknown Rx mg capsule caps carvedilol 3.125 mg tablet 3.125 mg PO BIDCM #0 tabs 08/11/24 Unknown Rx cefdinir 300 mg capsule 300 mg PO DAILY #1 cap 08/11/24 Unknown Rx cholecalciferol (vitamin D3) 125 125 mcg PO DAILY #0 caps 08/11/24 Unknown Rx mcg (5,000 unit) capsule cinacalcet 30 mg tablet 30 mg PO DAILYCM #0 tabs 08/11/24 Unknown Rx clopidogrel 75 mg tablet 75 mg PO DAILY #0 tabs 08/11/24 Unknown Rx isosorbide dinitrate 20 mg tablet 20 mg PO BID #0 tabs 08/11/24 Unknown Rx menthol 0.44 %-zinc oxide 20.6 % 1 applic topical BID #0 grams 08/11/24 Unknown Rx topical ointment (Calmoseptine) metronidazole 500 mg tablet 500 mg PO TID #21 tabs 08/11/24 Unknown Rx midodrine 5 mg tablet 10 mg (2 x 5 mg) PO TIDCM #0 tabs 08/11/24 Unknown Rx ondansetron 4 mg disintegrating 4 mg PO Q8H PRN PRN nausea and 08/11/24 Unknown Rx tablet vomiting #0 tabs pantoprazole 40 mg tablet,delayed 40 mg PO BID #0 tabs 08/11/24 Unknown Rx release sevelamer carbonate 800 mg tablet 800 mg PO TIDCM #0 tabs 08/11/24 Unknown Rx sucralfate 1 gram tablet 1 g PO 1HR_ACHS #0 tabs 08/11/24 Unknown Rx Allergy/AdvReac Type Severity Reaction Status Date / Time ceftriaxone Allergy Severe Rash Verified 08/13/24 07:55 vancomycin Allergy Unknown Rash Verified 08/13/24 07:55 Penicillins Allergy Swelling Verified 08/13/24 07:55 oxycodone HCl (From Percocet) AdvReac Intermediate Itching Verified 08/13/24 07:55 Family History Mother Hypertension Emphysema/COPD Sister Hypertension Surgical History S/P arteriovenous (AV) fistula creation History of arteriovenostomy for renal dialysis History of surgery History of eye surgery knee scope H/O: hysterectomy Social History Smoking Status: Former smoker alcohol intake: current details: 1 per week substance use type: does not use what type of physical activity do you participate in: none ROS ROS ED Review of Systems ROS Unobtainable: other Constitutional Constitutional ED: Reports lethargy; Denies chills, fever(s), sweats or weight loss Eyes Eyes: Denies blurry vision, change in vision or diplopia ENT ENT ED: Denies rhinorrhea or sore throat Cardiovascular Cardiovascular: Denies chest pain, orthopnea or racing heartbeat Respiratory/Chest Respiratory/Chest: Denies cough, dyspnea, dyspnea on exertion, orthopnea or sputum Gastrointestinal Gastrointestinal: Denies abdominal pain, diarrhea, nausea or vomiting Genitourinary Genitourinary ED: Denies dysuria, hematuria or urinary frequency Musculoskeletal Musculoskeletal: Denies arthralgias, back pain, myalgias or neck pain Integumentary Denies abscess, Abrasions or rash Neurologic Neurologic: Reports headache(s); Denies weakness Psychiatric Psychiatric: Denies anxiety, depression or suicidal thoughts Endocrine Endocrinology: Denies polydipsia, polyphagia or polyuria Hematologic/Lymphatic Hematologic/Lymphatic: Denies easy bleeding, easy bruising or lymphadenopathy Allergic/Immunologic Allergic/Immunologic ED: Denies mouth swelling, tongue swelling or urticaria EXAM Physical Exam Const Vital Signs: 08/13/24 07:51 08/13/24 07:55 Temperature 97.1 F L Temperature Source Temporal Pulse Rate 59 L Respiratory Rate 16 Respiratory Effort Normal Non-Labored Respiratory Depth Normal Respiratory Pattern Normal Blood Pressure 133/57 H Blood Pressure Mean 82 Pulse Ox 100 99 Oxygen Delivery Method Nasal Cannula Nasal Cannula Oxygen Flow Rate (L/min) 2 2 Positive well nourished and well developed General Appearance ED: well developed and NAD HEENT Reports TM's clear and moist mucous membranes HEENT Narrative: No external evidence of trauma to her head normocephalic and atraumatic; Negative for trauma or tenderness Tympanic Membrane ED: Yes TM's clear Eyes PERRL and EOMs intact bilaterally General Eye ED: Negative for pale conjunctiva or scleral icterus Neck no lymphadenopathy, supple and no JVD Neck Narrative: Mild diffuse tenderness. No bony step-offs or depressions. Good range of motion with rotation and flexion extension of the neck General: tenderness Chest Wall inspection of chest normal and palpation of chest normal Chest: Negative for tenderness Resp normal respiratory effort and clear to auscultation bilaterally Effort and Inspection: Negative for respiratory distress or pain with movement Auscultation: Negative for rhonchi, wheezes or diminished lung sounds Cardio regular rate, regular rhythm, S1 normal heart sound, S2 normal heart sound and no murmurs Peripheral Pulses: pulses 2+ throughout GI normal to inspection, nondistended, normoactive bowel sounds, soft to palpation, non-tender, non-distended and no masses Back/Spine no CVA tenderness and no thoracic nor lumbar tenderness Extremity normal to inspection General Extremety ED: Negative for edema General Extremity: Negative for edema Neuro oriented x3, CN's II-XII intact bilaterally, no sensory deficits noted and gait normal Sensorium / Orientation: awake, alert, oriented to person, oriented to place and oriented to time Motor Exam: strength 5/5 throughout and strength abnormal Psych mental status grossly normal Skin no rashes or lesions noted and no wounds MDM MDM MDM Narrative Medical decision making narrative: Patient presents after a fall yesterday without evidence of trauma. She denied any neck pain. She denies paresthesias. Given her age and fall that caused injury to her head on concrete we will obtain CT scan of the brain and cervical spine to evaluate for traumatic injuries. CT scan of the brain showed chronic involutional changes and evidence of old infarcts without any evidence of cranial bleed or skull fracture. CT of the C-spine showed small fracture fragments anterior and posterior to the C3-C4 facet joint on the left with rounded margins and radiologist felt these findings are likely subacute or chronic. Patient also had old compression fracture of T3 as well as T2. I did reevaluate patient after discussing with radiology and she has no pain on exam of her neck with range of motion or palpation. I discussed patient with her primary care physician as well to make them aware of findings but did not feel she needed acute intervention or acute evaluation by back surgeon or neurosurgeon. Patient's primary care physician Dr. Prince Cummins in agreement however I will have her follow-up with Dr. Garcia who is a neck/back specialist in the near term. Radiography Diagnostic Testing: Clinical Impression(s) from Imaging Studies Brain CT 08/13/24 08:27 IMPRESSION: 1. No CT evidence of intracranial bleeding, acute ischemic infarct or acute intracranial abnormality. 2. 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 3. Additional old cortical-based ischemic infarct with cystic encephalomalacia and atrophy of the right frontal operculum and the adjacent caudal aspect of the right central lobe. This was not present on 01/02/2023. 4. Wallerian degeneration of the right cerebral peduncle and increased ex vacuo dilatation of the right lateral ventricle. Electronically Signed: Kurtis Barajas MD at 9:04 EST , Cervical Spine CT 08/13/24 08:27 IMPRESSION: 1. Small fracture fragments anterior end posterior to the abnormal widening of the left C3-C4 facet joint. These were not present previously but the fracture fragments appear to have smooth margins. Considering the history of trauma, these may still be recent fractures but the exact age is unknown since these were not present on 09/19/2022 CTA neck. 2. No suspicious acute fractures of the vertebral bodies and no traumatic subluxation or malalignment of the cervical spine, craniocervical junction and cervicothoracic junction. 3. Old anterior wedge compression fracture of the upper T3 vertebral body. 4. Minimal cortical break in the anterior inferior corner of the lower T2 vertebral body does not appear recent. Please correlate with physical exam if there is tenderness at the cervicothoracic junction area. 5. Ankylosis of the C4-C5 vertebral bodies and the C4-C5 facet joints. Electronically Signed: Kurtis Barajas MD at 8:51 EST , ADDENDUM: 08/13/24 0901 IMPRESSION: 1. Small fracture fragments anterior end posterior to the abnormal widening of the left C3-C4 facet joint. These were not present previously but the fracture fragments appear to have smooth margins. Considering the history of trauma, these may still be recent fractures but the exact age is unknown since these were not present on 09/19/2022 CTA neck. 2. No suspicious acute fractures of the vertebral bodies and no traumatic subluxation or malalignment of the cervical spine, craniocervical junction and cervicothoracic junction. 3. Old anterior wedge compression fracture of the upper T3 vertebral body. 4. Minimal cortical break in the anterior inferior corner of the lower T2 vertebral body does not appear recent. Please correlate with physical exam if there is tenderness at the cervicothoracic junction area. 5. Ankylosis of the C4-C5 vertebral bodies and the C4-C5 facet joints. N.B. : The above Results were Read Back by Kurtis Barajas MD to Blake Diana DO, and understanding confirmed on 08/13/2024 08:54:46 (ET). Electronically Signed: Kurtis Barajas MD at 8:51 EST , Discharge Plan Triage Chief Complaint: Head Injury ED Provider: Blake Diana Dx/Rx/DC Orders Clinical Impression: Closed head injury Instructions: ED Head Injury (Adult) Prescriptions: No Action multivitamin with folic acid [Daily-Caron (with folic acid)] 400 mcg tablet 1 tab PO DAILY albuterol sulfate 90 mcg/actuation HFA aerosol inhaler 2 puff inhalation Q6H gabapentin 100 mg capsule 100 mg PO Q12H guaifenesin [Chest Congestion Relief] 100 mg/5 mL liquid 200 mg PO Q4H PRN (Reason: cough) aluminum-magnesium hydroxide 225-200 mg/5 mL suspension 30 ml PO Q4H PRN PRN (Reason: GI DISTRESS) bisacodyl 10 mg suppository 10 mg CO DAILY PRN (Reason: constipation) Rx Instructions: IF NO BM IN 4 DAYS Enema 19-7 gram/118 mL enema 118 ml CO DAILY PRN (Reason: constipation) ipratropium-albuterol 0.5 mg-3 mg(2.5 mg base)/3 mL solution for nebulization 3 ml inhalation Q6H PRN (Reason: shortness of breath) levetiracetam 250 mg tablet 250 mg PO .COMPLEX Rx Instructions: 250 mg orally orally EVERY FRIDAY, FRIDAY, FRIDAY, FRIDAY; orally EVERY FRIDAY, FRIDAY, FRIDAY, FRIDAY levetiracetam 500 mg tablet 500 mg PO QHS losartan 25 mg tablet 25 mg PO DAILY acetaminophen 325 mg Tablet 650 mg PO Q6H PRN PRN (Reason: Pain 1-10 Or Fever>100.7) Qty: 0 0RF amiodarone 200 mg Tablet 200 mg PO DAILY Qty: 0 0RF clopidogrel 75 mg Tablet 75 mg PO DAILY Qty: 0 0RF carvedilol 3.125 mg Tablet 3.125 mg PO BIDCM Qty: 0 0RF isosorbide dinitrate 20 mg Tablet 20 mg PO BID Qty: 0 0RF cholecalciferol (vitamin D3) 125 mcg (5,000 unit) Capsule 125 mcg PO DAILY Qty: 0 0RF cinacalcet 30 mg Tablet 30 mg PO DAILYCM Qty: 0 0RF calcium acetate(phosphat bind) 667 mg Capsule 1,334 mg PO TIDCM Qty: 0 0RF menthol-zinc oxide [Calmoseptine] 0.44-20.6 % Ointment 1 applic topical BID Qty: 0 0RF Protocol: *Topical Application Instructions APPLICATION INSTRUCTIONS: Apply to bilateral buttocks and coccyx sucralfate 1 gram Tablet 1 g PO 1HR_ACHS Qty: 0 0RF midodrine 5 mg Tablet 10 mg PO TIDCM Qty: 0 0RF pantoprazole 40 mg Tablet,Delayed Release (Dr/Ec) 40 mg PO BID Qty: 0 0RF ondansetron 4 mg Tablet,Disintegrating 4 mg PO Q8H PRN PRN (Reason: nausea and vomiting) Qty: 0 0RF sevelamer carbonate 800 mg Tablet 800 mg PO TIDCM Qty: 0 0RF cefdinir 300 mg capsule 300 mg PO DAILY Qty: 1 0RF Rx Instructions: For 7 days beginning 08/12/2024, then discontinue metronidazole 500 mg tablet 500 mg PO TID Qty: 21 0RF Rx Instructions: 1 3 times a day beginning 08/12/2024, complete 7 days of treatment then discontinue aspirin 81 mg tablet,delayed release (DR/EC) See Rx Instructions .ROUTE .COMPLEX Qty: 90 3RF Dose Instruction: TAKE 1 TABLET BY MOUTH DAILY Rx Instructions: TAKE 1 TABLET BY MOUTH DAILY ferrous sulfate [FeroSul] 325 mg (65 mg iron) tablet 325 mg PO DAILY Qty: 90 1RF atorvastatin 80 mg tablet 80 mg PO QHS Qty: 30 1RF Primary Care Provider: Pricne Cummins Referrals: Carlos Collazo MD [Med Staff - Active Staff] - 5-7 Days Leigha Longoria MD [Non-Staff -Ordering Privileges] - Print Language: Tajik Disposition Disposition: Home, Self Care
--- NOTE | 2024-08-13 08:27 | CT_ITS ---
We are attempting to reach an attending provider to discuss findings. An addendum with communication details will be sent when the communication is complete. EXAM: CT CERVICAL SPINE WITHOUT INTRAVENOUS CONTRAST CLINICAL INDICATION: Fall related head injury. TECHNIQUE: Helically acquired images were obtained of the cervical spine without intravenous contrast. 2D reformatted images were reviewed. This CT exam was performed using one or more of the following dose reduction techniques: automated exposure control, adjustment of the mA and/or kV according to patient size, and/or use of iterative reconstruction technique. RADIATION DOSE: CTDIvol = 20.57 mGy, DLP = 414.80 mGy-cm COMPARISON: CTA head and neck with contrast 09/19/2022. FINDINGS: VERTEBRAE: There are small fracture fragments anterior and posterior to the abnormal widening of the left C3-C4 facet joint. The fracture fragments have smooth margins but were not present on the CTA head and neck of by 02/01/2023. There is ankylosis of the left C4-C5 facet joint. There is partial ankylosis of the right C4-C5 facet joint. Prominent Schmorl''s node in the central C2 inferior endplate. Pronounced C5-C6 disc space height narrowing. Normal remaining cervical disc space heights. Old anterior wedge compression fracture of the upper T3 vertebral body is unchanged. Small cortical break in the anterior inferior corner of T2 vertebral body does not appear recent. In my opinion, this was present previously. No suspicious acute fractures of the vertebral bodies. No other suspicious fractures of the posterior osseous elements. No traumatic subluxation. No discrete lytic or blastic abnormality. Normal craniocervical junction and cervicothoracic junction. DISCS/SPINAL CANAL/NEURAL FORAMINA: Unremarkable. Disc heights are preserved. No critical stenosis. SOFT TISSUES: Unremarkable. No prevertebral soft tissue swelling. LYMPH NODES: Unremarkable. No cervical adenopathy. LUNG APICES: Unremarkable as visualized. Clear. CT/Spine Cervical without Contras IMPRESSION: 1. Small fracture fragments anterior end posterior to the abnormal widening of the left C3-C4 facet joint. These were not present previously but the fracture fragments appear to have smooth margins. Considering the history of trauma, these may still be recent fractures but the exact age is unknown since these were not present on 09/19/2022 CTA neck. 2. No suspicious acute fractures of the vertebral bodies and no traumatic subluxation or malalignment of the cervical spine, craniocervical junction and cervicothoracic junction. 3. Old anterior wedge compression fracture of the upper T3 vertebral body. 4. Minimal cortical break in the anterior inferior corner of the lower T2 vertebral body does not appear recent. Please correlate with physical exam if there is tenderness at the cervicothoracic junction area. 5. Ankylosis of the C4-C5 vertebral bodies and the C4-C5 facet joints. Electronically Signed: Kurtis Barajas MD at 8:51 EST ,
--- NOTE | 2024-08-13 08:27 | CT_ITS ---
EXAM: CT HEAD WITHOUT INTRAVENOUS CONTRAST CLINICAL INDICATION: Fall related head injury. TECHNIQUE: Multiple axial images were obtained of the head without intravenous contrast. This CT exam was performed using one or more of the following dose reduction techniques: automated exposure control, adjustment of the mA and/or kV according to patient size, and/or use of iterative reconstruction technique. RADIATION DOSE: CTDIvol = 44.99 mGy, DLP = 812.98 mGy-cm COMPARISON: CT head without contrast 01/02/2023. 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 There is focal dystrophic calcification overlying and underlying the old infarct. There is also new but old cortical-based ischemic infarct with cystic atrophy and encephalomalacia involving the right frontal operculum (pars triangularis and pars opercularis) and the adjacent caudal aspect of the right central lobe. Ovarian degeneration of the right cerebral peduncle. Ex vacuo dilatation of the body, frontal horn and occipital horn of the right lateral ventricle. No intra- or extra-axial hemorrhage. No intracranial mass or mass effect. Posterior fossa structures are unremarkable. No hydrocephalus. Basal cisterns are patent. BONES/JOINTS: Unremarkable. No discrete lytic or blastic abnormalities. SINUSES: Unremarkable as visualized. Clear. MASTOID AIR CELLS: Unremarkable. Clear. ORBITS: Visualized globes, extraocular muscles, optic nerves and retrobulbar fat appear unremarkable. CT/Brain/Head without Contrast IMPRESSION: 1. No CT evidence of intracranial bleeding, acute ischemic infarct or acute intracranial abnormality. 2. 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 3. Additional old cortical-based ischemic infarct with cystic encephalomalacia and atrophy of the right frontal operculum and the adjacent caudal aspect of the right central lobe. This was not present on 01/02/2023. 4. Wallerian degeneration of the right cerebral peduncle and increased ex vacuo dilatation of the right lateral ventricle. Electronically Signed: Kurtis Barajas MD at 9:04 EST ,
[2024-08-13 09:48] VITALS: BP 126/46; PULSE 56; RESP 18; TEMP 36.7; O2SAT 99
== END 2024-08-13 11:15 | disposition home or self-care (01) ==
PROVIDERS: Emergency Provider Emergency Medicine; PCP Family Medicine; Visit Provider Emergency Medicine
DX: S09.90XA Unspecified injury of head, initial encounter (principal); I13.2 Hypertensive heart and chronic kidney disease with heart failure and with stage 5 chronic kidney disease, or end stage renal disease; N18.6 End stage renal disease; I50.32 Chronic diastolic (congestive) heart failure; J44.9 Chronic obstructive pulmonary disease, unspecified; E11.22 Type 2 diabetes mellitus with diabetic chronic kidney disease; I25.10 Atherosclerotic heart disease of native coronary artery without angina pectoris; I25.2 Old myocardial infarction; Z79.02 Long term (current) use of antithrombotics/antiplatelets; Z87.891 Personal history of nicotine dependence; Z86.73 Personal history of transient ischemic attack (TIA), and cerebral infarction without residual deficits; W19.XXXA Unspecified fall, initial encounter; Z99.2 Dependence on renal dialysis
CPT/HCPCS: 70450; 72125; 99284

== ENCOUNTER → 2024-08-18 | Outpatient (CLI) | payer MEDICAID, SELFPAY ==
--- NOTE | 2024-08-18 08:04 | AVDS_ITS ---
Reason For Study: ESRD LEFT Inflow, Subclavian artery, 236.6/92.6 cm/sec. Inflow, Subclavian artery, 1641 ml/min. Prox anastamosis, 464/211.7 cm/sec. Prox anastamosis, 1826 ml/min. Prox graft, 193.5/100.6 cm/sec. Prox graft, 800.3 ml/min. Mid graft, 211.3/95.6 cm/sec. Mid graft, 1245 ml/min. Distal graft, 265.4/128.1 cm/sec. Distal graft, 1151 ml/min. Distal anastamosis, 296.8/139.9 cm/sec. Distal anastamosis, 1040 ml/min. Outflow, Subclavian vein, 391.1/167.3 cm/sec. Outflow, Subclavian vein, 2583 ml/min. VL/AV Fistula/Dialysis Graft Scan Interpretation Summary Patent left chest wall AV graft with no stenosis and adequate flow volume Ordering Physician: Fanny Alejo Referring Physician: Leigha Longoria Performed By: Hawa Savage RVT
== END | disposition home or self-care (01) ==
LOC: CVS 08:00
PROVIDERS: PCP Internal Medicine; Referring Provider Physician Assistant; Visit Provider Physician Assistant
DX: N18.6 End stage renal disease (principal); I77.0 Arteriovenous fistula, acquired
CPT/HCPCS: 93990

== ENCOUNTER → 2024-08-19 05:00 | Outpatient (REF) | payer MEDICAID, SELFPAY ==
[2024-08-19 08:13] LABS: Hematocrit 24.4 % (37-47); Hemoglobin 7.6 g/dL (12.0-15.0); Mean Corp Hgb Conc 31.1 g/dL (32-36); Mean Corpuscular Hgb 31.1 pg (27.0-32.0); Mean Platelet Vol. 9.4 fl (6.2-12.0); Platelet Count 218 K/mm3 (150-450); RBC Distribution Width CV 16.1 % (11.6-14.6); RBC Distribution Width SD 57.9 fl (35.1-43.9); Red Blood Count 2.44 M/mm3 (4.2-5.4); White Blood Count 7.5 K/mm3 (4.4-11.0)
== END ==
LOC: OLS.SW 05:00
PROVIDERS: PCP Internal Medicine; Visit Provider Internal Medicine
DX: D64.9 Anemia, unspecified (principal); I10 Essential (primary) hypertension
CPT/HCPCS: 36415; 85027

== ENCOUNTER → 2024-08-23 | Outpatient (REF) | payer MEDICAID, SELFPAY ==
[2024-08-23 08:13] LABS: Absolute Lymphocyte Count 1.52 X10^3/uL (0.83-4.51); Absolute Neutrophil Count 5.1 X10^3/uL (2.0-7.7); Basophil# 0.06 X10^3/uL; Basophil% 0.8 % (0-1); Eosinophil# 0.14 X10^3/uL; Eosinophils% 1.8 % (0-5); Hematocrit 24.7 % (37-47); Hemoglobin 7.9 g/dL (12.0-15.0); Lymphocyte # 1.52 X10^3/ul (0.83-4.51); Lymphocyte % 19.2 % (19-41); Mean Corpuscular Hgb 32.2 pg (27.0-32.0); Mean Corpuscular Volume 100.8 fL (81-99); Mean Platelet Vol. 9.6 fl (6.2-12.0); Monocyte# 0.97 X10^3/uL; Monocyte% 12.2 % (0-10); NRBC Flagged by Analyzer 0.5 % (0-5); Neutrophil # 5.13 X10^3/uL (2.7-7.7); Neutrophil % 64.7 % (47-70); Platelet Count 291 K/mm3 (150-450); RBC Distribution Width CV 16.2 % (11.6-14.6); RBC Distribution Width SD 57.9 fl (35.1-43.9); Red Blood Count 2.45 M/mm3 (4.2-5.4); White Blood Count 7.9 K/mm3 (4.4-11.0)
[2024-08-23 08:30] LABS: Anion Gap 9 (5-15); BUN 16 mg/dL (7-18); BUN/Creat Ratio 3.4 RATIO (10-20); Calcium,Total 8.7 mg/dL (8.5-10.1); Chloride 98 mmol/L (98-107); Creatinine, Serum 4.71 mg/dL (0.55-1.02); EST Glomerular Filtration Rate 10 mL/min (>60); Est Glom Filt Rate - Afr Amer 12 mL/min (>60); Glucose 77 mg/dL (74-106); Magnesium 2.1 mg/dL (1.6-2.6); Sodium Level 142 mmol/L (136-145)
== END | disposition home or self-care (01) ==
LOC: OLS.SW 04:00
PROVIDERS: PCP Internal Medicine; Referring Provider Internal Medicine; Visit Provider Internal Medicine
DX: J44.9 Chronic obstructive pulmonary disease, unspecified (principal); E11.22 Type 2 diabetes mellitus with diabetic chronic kidney disease; N18.9 Chronic kidney disease, unspecified; G40.89 Other seizures
CPT/HCPCS: 36415; 80048; 83735; 85025

== ENCOUNTER → 2024-08-25 05:00 | Outpatient (REF) | payer MEDICAID, SELFPAY ==
[2024-08-25 08:06] LABS: Potassium 2.8 mmol/L (3.5-5.1)
== END ==
LOC: OLS.SW 05:00
PROVIDERS: PCP Internal Medicine; Visit Provider Internal Medicine
DX: Z79.899 Other long term (current) drug therapy (principal)
CPT/HCPCS: 36415; 84132

== ENCOUNTER 2024-08-25 14:12 | Emergency (ER) | payer MEDICAID, SELFPAY ==
[2024-08-25] VITALS (31 sets, daily range): BP systolic 103–133; BP diastolic 49–80; PULSE 66–97; RESP 13–21; TEMP 36–37.2; O2SAT 95–100; BMI 27.3
--- NOTE | 2024-08-25 14:30 | EKG12_ITS ---
Test Reason : Blood Pressure : */* mmHG Vent. Rate : 110 BPM Atrial Rate : 110 BPM P-R Int : 200 ms QRS Dur : 114 ms QT Int : 372 ms P-R-T Axes : 74 91 -61 degrees QTcB Int : 503 ms Sinus tachycardia Rightward axis Incomplete left bundle branch block Marked ST abnormality, possible inferior subendocardial injury Abnormal ECG Confirmed by SRIKANTH PIZARRO, RENE ([id number]), city editor ADRIÁN BURRIS ([id number]) on 09/01/2024 2:09:51 P M Referred By: Confirmed By: RENE DUKE MD
--- NOTE | 2024-08-25 14:30 | CT_ITS ---
STUDY: CT BRAIN WITHOUT CONTRAST REASON FOR EXAM: Female, 69 years old. ams RADIATION DOSAGE (If Supplied By Facility): CTDIvol = ( 44.99 ) mGy, DLP = ( 745.49 ) mGycm TECHNIQUE: Transaxial CT imaging of the brain was performed without administration of intravenous contrast material. Individualized dose optimization techniques were used for this CT. COMPARISON: Comparison is made with prior study dated August 13, 2024. FINDINGS: Normal soft tissue structures. Normal calvarium. There is moderate cerebral atrophy with widening of the extra-axial spaces and ventricular dilatation. There are areas of decreased attenuation within the white matter tracts of the supratentorial brain, consistent with microvascular disease changes. Stable encephalomalacia in the inferior aspect of the right parietal lobe. Normal basal ganglia and thalami. Normal brainstem. Normal cerebellum. There is no intracranial hemorrhage. There are no findings of an acute ischemic infarction. Atherosclerotic calcification of the vertebral arteries and cavernous portions of the internal carotid arteries bilaterally. Normal visualized paranasal sinuses. CT/Brain/Head without Contrast IMPRESSION: Chronic involutional changes of the brain. Electronically Signed: Tacho Russell MD at 15:46 EST ,
--- NOTE | 2024-08-25 14:32 | EDS_ITS ---
HPI History of Present Illness Chief Complaint: Unresponsive Informant: family, EMS and SNF Narrative Narrative: 69-year-old female presenting to the emergency room unresponsive. Reportedly found at [facility] where she is currently residing and was alert to voice and pain. Family tells me that she is basically wheelchair-bound at this point. She is on dialysis Friday. She has a history of coronary artery disease and was supposed to have PCI but had a seizure on the table. Chart shows that she is supposed to be on Keppra. Family states that this morning they tried called her around 1230 but when she picked up she was not speaking. It is not known what time she was last seen at her baseline this morning. Family notes that she had a stroke around 2019. She had previously been at home prior to the seizure which led her to [facility] for rehabilitation. Patient was seen in the emergency room about 2 weeks ago following a fall. According to both fci in this hospital chart the patient is a full code which family confirms. [facility] Medical History Lactic acidosis Respiratory insufficiency Pleural effusion Aspiration pneumonia Nausea & vomiting History of stroke Acute on chronic anemia Bronchospasm End stage renal disease Subendocardial ischemia Chest pressure Pulmonary edema Elevated troponin level Acute hypoxic respiratory failure Elevated troponin ESRD (end stage renal disease) on dialysis Acute blood loss anemia CAD (coronary artery disease) (HFpEF) heart failure with preserved ejection fraction Acute respiratory failure with hypoxia Alcohol use Wears dentures Shingles outbreak Arthritis Dietary restriction Normal Holter exam History of echocardiogram Cardiology follow-up encounter History of heart attack CHF (congestive heart failure) Severe protein-calorie malnutrition Malnutrition of moderate degree COPD (chronic obstructive pulmonary disease) Substance abuse Dialysis patient GI bleed Hepatitis Hypertension History of hypertension Chronic progressive renal failure TIA (transient ischemic attack) End-stage renal disease on hemodialysis PONV (postoperative nausea and vomiting) Post-menopausal Wears glasses Ambulates with cane High cholesterol Easy bruising Edentulous Gastric reflux On home oxygen therapy Former smoker Shortness of breath on exertion Leg cramps Hyponatremia ESRD (end stage renal disease) on dialysis Acute and chronic respiratory failure with hypoxia Chronic kidney disease, stage V requiring chronic dialysis Cardiac dysrhythmia, unspecified NSTEMI, initial episode of care Anemia Asthma Stroke Diabetes Rheumatoid arthritis Type II diabetes mellitus Hypertension Home Medications ?Medication ?Instructions ?Recorded ?Last Taken ?Type aspirin 81 mg tablet,delayed See Rx Instructions .Route 05/20/24 Unknown Rx release .COMPLEX #90 tabs multivitamin with folic acid 400 1 tab PO DAILY vitamin 05/20/24 Unknown History mcg tablet (Daily-Caron (with folic acid)) ferrous sulfate 325 mg (65 mg 325 mg PO DAILY SUPPLEMENT #90 tabs 05/28/24 Unknown Rx iron) tablet (FeroSul) atorvastatin 80 mg tablet 80 mg PO QHS CHOLESTEROL #30 tabs 07/01/24 Unknown Rx albuterol sulfate 90 mcg/actuation 2 puff inhalation Q6H 08/09/24 Unknown H istory aerosol inhaler aluminum-magnesium hydroxide 225 30 ml PO Q4H PRN PRN GI DISTRESS 08/09/24 Unknown History mg-200 mg/5 mL oral suspension bisacodyl 10 mg rectal suppository 10 mg LA DAILY PRN constipation 08/09/24 Unknown History gabapentin 100 mg capsule 100 mg PO Q12H 08/09/24 Unknown History guaifenesin 100 mg/5 mL oral 200 mg PO Q4H PRN cough 08/09/24 Unknown History liquid (Chest Congestion Relief) ipratropium 0.5 mg-albuterol 3 mg 3 ml inhalation Q6H PRN shortness 08/09/24 Unknown History (2.5 mg base)/3 mL nebulization of breath soln levetiracetam 250 mg tablet 250 mg PO .COMPLEX SEIZURES 08/09/24 Unknown History levetiracetam 500 mg tablet 500 mg PO QHS 08/09/24 Unknown History losartan 25 mg tablet 25 mg PO DAILY 08/09/24 Unknown History sodium phosphates 19 gram-7 118 ml LA DAILY PRN constipation 08/09/24 Unknown History gram/118 mL enema (Enema) acetaminophen 325 mg tablet 650 mg (2 x 325 mg) PO Q6H PRN PRN 08/11/24 Unknown Rx Pain 1-10 Or Fever>100.7 #0 tabs amiodarone 200 mg tablet 200 mg PO DAILY #0 tabs 08/11/24 Unknown Rx calcium acetate(phosphat bind) 667 1,334 mg (2 x 667 mg) PO TIDCM #0 08/11/24 Unknown Rx mg capsule caps carvedilol 3.125 mg tablet 3.125 mg PO BIDCM #0 tabs 08/11/24 Unknown Rx cefdinir 300 mg capsule 300 mg PO DAILY #1 cap 08/11/24 Unknown Rx cholecalciferol (vitamin D3) 125 125 mcg PO DAILY #0 caps 08/11/24 Unknown Rx mcg (5,000 unit) capsule cinacalcet 30 mg tablet 30 mg PO DAILYCM #0 tabs 08/11/24 Unknown Rx clopidogrel 75 mg tablet 75 mg PO DAILY #0 tabs 08/11/24 Unknown Rx isosorbide dinitrate 20 mg tablet 20 mg PO BID #0 tabs 08/11/24 Unknown Rx menthol 0.44 %-zinc oxide 20.6 % 1 applic topical BID #0 grams 08/11/24 Unknown Rx topical ointment (Calmoseptine) metronidazole 500 mg tablet 500 mg PO TID #21 tabs 08/11/24 Unknown Rx midodrine 5 mg tablet 10 mg (2 x 5 mg) PO TIDCM #0 tabs 08/11/24 Unknown Rx ondansetron 4 mg disintegrating 4 mg PO Q8H PRN PRN nausea and 08/11/24 Unknown Rx tablet vomiting #0 tabs pantoprazole 40 mg tablet,delayed 40 mg PO BID #0 tabs 08/11/24 Unknown Rx release sevelamer carbonate 800 mg tablet 800 mg PO TIDCM #0 tabs 08/11/24 Unknown Rx sucralfate 1 gram tablet 1 g PO 1HR_ACHS #0 tabs 08/11/24 Unknown Rx Allergy/AdvReac Type Severity Reaction Status Date / Time ceftriaxone Allergy Severe Rash Verified 08/25/24 14:14 vancomycin Allergy Unknown Rash Verified 08/25/24 14:14 Penicillins Allergy Swelling Verified 08/25/24 14:14 oxycodone HCl (From Percocet) AdvReac Intermediate Itching Verified 08/25/24 14:14 Family History Mother Hypertension Emphysema/COPD Sister Hypertension Surgical History S/P arteriovenous (AV) fistula creation History of arteriovenostomy for renal dialysis History of surgery History of eye surgery knee scope H/O: hysterectomy Social History Smoking Status: Former smoker alcohol intake: current details: 1 per week substance use type: does not use what type of physical activity do you participate in: none ROS ROS ED Review of Systems ROS Unobtainable: due to mental status EXAM Physical Exam Const Vital Signs: 08/25/24 14:14 08/25/24 14:19 08/25/24 14:21 Temperature 96.8 F L 96.8 F L Temperature Source Temporal Temporal Pulse Rate 68 Respiratory Rate 14 Respiratory Effort Normal Non-Labored Respiratory Pattern Normal Blood Pressure 110/64 Blood Pressure Mean 79 Pulse Ox 95 Oxygen Delivery Method Nasal Cannula Oxygen Flow Rate (L/min) 3 Fraction of Inspired Oxygen (FIO2) 08/25/24 14:30 08/25/24 15:14 08/25/24 15:15 Temperature Temperature Source Pulse Rate 97 Respiratory Rate 21 H Respiratory Effort Respiratory Pattern Blood Pressure 119/66 Blood Pressure Mean 81 Pulse Ox 100 Oxygen Delivery Method Nasal Cannula Oxygen Flow Rate (L/min) Fraction of Inspired Oxygen (FIO2) 08/25/24 15:15 08/25/24 15:30 08/25/24 15:45 Temperature Temperature Source Pulse Rate 95 88 97 Respiratory Rate 19 H 17 17 Respiratory Effort Respiratory Pattern Blood Pressure 119/66 121/80 H 114/54 L Blood Pressure Mean 81 93 67 Pulse Ox 100 Oxygen Delivery Method Oxygen Flow Rate (L/min) Fraction of Inspired Oxygen (FIO2) 08/25/24 15:46 08/25/24 16:00 08/25/24 16:15 Temperature Temperature Source Pulse Rate 72 89 81 Respiratory Rate 16 16 13 Respiratory Effort Respiratory Pattern Normal Blood Pressure 103/75 118/70 Blood Pressure Mean 82 86 Pulse Ox 100 Oxygen Delivery Method Oxygen Flow Rate (L/min) Fraction of Inspired Oxygen (FIO2) 100 08/25/24 16:30 08/25/24 16:31 08/25/24 16:45 Temperature Temperature Source Pulse Rate 74 77 72 Respiratory Rate 16 20 H 16 Respiratory Effort Respiratory Pattern Blood Pressure 129/55 H 128/66 H Blood Pressure Mean 78 83 Pulse Ox 100 Oxygen Delivery Method Oxygen Flow Rate (L/min) Fraction of Inspired Oxygen (FIO2) 08/25/24 17:00 08/25/24 17:15 08/25/24 17:30 Temperature Temperature Source Pulse Rate 75 71 73 Respiratory Rate 16 16 16 Respiratory Effort Respiratory Pattern Blood Pressure 111/66 123/71 H 128/73 H Blood Pressure Mean 81 85 90 Pulse Ox Oxygen Delivery Method Oxygen Flow Rate (L/min) Fraction of Inspired Oxygen (FIO2) 08/25/24 17:34 08/25/24 17:45 08/25/24 18:00 Temperature Temperature Source Pulse Rate 74 67 Respiratory Rate 16 16 16 Respiratory Effort Respiratory Pattern Blood Pressure 127/62 H 124/74 H Blood Pressure Mean 82 87 Pulse Ox Oxygen Delivery Method Oxygen Flow Rate (L/min) Fraction of Inspired Oxygen (FIO2) 50 08/25/24 18:15 08/25/24 18:45 Temperature Temperature Source Pulse Rate 71 71 Respiratory Rate 16 16 Respiratory Effort Respiratory Pattern Normal Blood Pressure 125/57 H Blood Pressure Mean 77 Pulse Ox 100 Oxygen Delivery Method Oxygen Flow Rate (L/min) Fraction of Inspired Oxygen (FIO2) 40 Positive well nourished and well developed General Appearance ED: well developed and NAD HEENT Reports normocephalic, head/scalp atraumatic and moist mucous membranes HEENT Narrative: When attempting to use a tongue depressor the patient seems to be biting down on the tongue depressor. Eyes Eyes Narrative: I do not appreciate corneal reflex. Pupils are 1 to 2 mm constricted. Neck no lymphadenopathy, supple and no JVD Chest Wall Chest Narrative: Right chest dialysis catheter Resp normal respiratory effort and clear to auscultation bilaterally Cardio regular rate, regular rhythm and no murmurs GI normal to inspection, nondistended, normoactive bowel sounds and non-tender Palpation: soft Back/Spine no CVA tenderness and normal ROM Extremity normal to inspection General Extremety ED: Negative for edema General Extremity: Negative for edema Neuro Neuro Narrative: Patient does not respond to sternal rub. I do not appreciate the patient moving her arms or legs or turning her head. Psych Psych Narrative: Unable to assess Skin no rashes or lesions noted and no wounds MDM MDM MDM Narrative Medical decision making narrative: Differential diagnosis includes but not limited to intracranial hemor rhage/stroke seizure postictal sepsis weight metabolic derangement drug overdose My independent interpretation of the chest x-ray is cardiomegaly. Possible CHF noted. Patient is EKG is sinus tachycardia at a rate of 110. She had no response to Narcan. Patient continued to seem to be biting down. I gave her a milligram of Ativan with concern for possible status. Patient was taken to CT. CT does not show any acute intracranial hemorrhage or hematoma. Area of encephalomalacia on the right MCA areas noted. Patient still is not awake. I do note some minimal lower extremity spontaneous movement. Unfortunately after CT and the Ativan her pulse ox is in the mid 80s. Labs are reviewed shows a slight leukocytosis of 11.8 hemoglobin of 9 lactic acid is 2 creatinine 3.97 potassium 3.6 total CK8 26 troponin I 1896 ammonia 26. I am not able to obtain a Keppra level. ABG shows a pH 7.449 pCO2 48.7 PaO2 114.4 HCO3 33.8 The patient underwent rapid sequence intubation for airway protection. She received etomidate succinylcholine. A 7 oh endotracheal tube was placed on the first attempt without any difficulty. This was secured into place. My independent interpretation of the postintubation x-ray is adequate placement of endotracheal tube and orogastric tube. There is cardiomegaly noted. There is some haziness noted in the left upper lobe which was noted on the first chest x- ray. I think this is most likely a volume CHF as composed to aspiration. She did seem to be laying more on this left side. I spoke with [facility] neuro ICU. They recommend additional Keppra and we are also providing propofol for sedation. Family was updated prior to intubation and postintubation. Heparin drip was not started at this time given a lack of history of chest pain and nonischemic EKG. At 1917 hrs. I was informed that while waiting for bed assignment the patient's temperature is up to 99.5. We have not had any difficulty oxygenating her. Her lung sounds remain clear. However given the slightly elevated temperature the findings on the chest x-ray we went ahead and administered Levaquin. She is pen allergic and has allergy to ceftriaxone and vancomycin. History & Record Review Discussion w/independent historian: EMS personnel and Family Additional record(s) reviewed:: Prior inpatient record, Prior outpatient record, Prior ED visit and Prior labs Lab Data Attestation: I reviewed the patient's lab results. Labs: Laboratory Results - last 24 hr 08/25/24 08/25/24 08/25/24 14:25 14:46 14:47 WBC 11.5 H RBC 2.78 L Hgb 9.0 L Hct 27.8 L MCV 100.0 H MCH 32.4 H MCHC 32.4 RDW Std Deviation 58.7 H RDW Coeff of Dottie 17.0 H Plt Count 248 MPV 9.8 Immature Gran % (Auto) 1.000 H Neut % (Auto) 79.0 H Lymph % (Auto) 11.6 L [place] % (Auto) 8.0 Eos % (Auto) 0.1 Baso % (Auto) 0.3 Absolute Neuts (auto) 9.1 H Absolute Lymphs (auto) 1.34 Nucleated RBC % 1.0 PT 15.0 H INR 1.2 APTT 31.5 Sodium 138 Potassium 3.6 Chloride 94 L Carbon Dioxide 31.0 Anion Gap 13 BUN 15 Creatinine 3.97 H Estim Creat Clear Calc 11.92 Est GFR (MDRD) Af Amer 15 L Est GFR (MDRD) Non-Af 12 L BUN/Creatinine Ratio 3.8 L Glucose 107 H Lactic Acid 2.0 Calcium 8.9 Total Bilirubin 0.70 Direct Bilirubin 0.33 H AST 88 H ALT 51 Alkaline Phosphatase 79 Ammonia 26.0 Total Creatine Kinase 826 H Troponin I High Sens 1896 H* Total Protein 7.8 Albumin 2.1 L Globulin 5.7 H Triglycerides 121 Lipase 27 Radiography Diagnostic Testing: Clinical Impression(s) from Imaging Studies Brain CT 08/25/24 14:30 IMPRESSION: Chronic involutional changes of the brain. Electronically Signed: Tacho Russell MD at 15:46 EST , Chest X-Ray 08/25/24 15:22 IMPRESSION: Progressive pleural-parenchymal changes in the left hemithorax with shift of the heart and mediastinal structures towards the left side. Electronically Signed: Tacho Russell MD at 15:47 EST , Chest X-Ray 08/25/24 15:55 IMPRESSION: Left upper lobe infiltrate NG tube placement with tip in the proximal to mid gastric fundus Electronically Signed: Jefferson Warner MD at 16:30 EST Reading Location ID and State: [address] [place] [address] Tel , Service support , Management Discussion w/another healthcare provider: Childcare Aide ([facility] Neuro ICU) Critical Care Time Critical Care Time: Yes Critical care time (excluding procedures): 30-74 minutes (35 min), Discussing w/Patient &/or Family/[employer], Discussing w/Consultants, Arranging Admission or Transfer and Performing Direct Patient Care at Bedside Discharge Plan Triage Chief Complaint: Unresponsive ED Provider: Messi Muñiz Dx/Rx/DC Orders Clinical Impression: Status epilepticus, Non-ST elevation [place] (NSTEMI), ESRD (end stage renal disease) on dialysis, CAD (coronary artery disease) Prescriptions: No Action multivitamin with folic acid [Daily-Caron (with folic acid)] 400 mcg tablet 1 tab PO DAILY albuterol sulfate 90 mcg/actuation HFA aerosol inhaler 2 puff inhalation Q6H gabapentin 100 mg capsule 100 mg PO Q12H guaifenesin [Chest Congestion Relief] 100 mg/5 mL liquid 200 mg PO Q4H PRN (Reason: cough) aluminum-magnesium hydroxide 225-200 mg/5 mL suspension 30 ml PO Q4H PRN PRN (Reason: GI DISTRESS) bisacodyl 10 mg suppository 10 mg LA DAILY PRN (Reason: constipation) Rx Instructions: IF NO BM IN 4 DAYS Enema 19-7 gram/118 mL enema 118 ml LA DAILY PRN (Reason: constipation) ipratropium-albuterol 0.5 mg-3 mg(2.5 mg base)/3 mL solution for nebulization 3 ml inhalation Q6H PRN (Reason: shortness of breath) levetiracetam 250 mg tablet 250 mg PO .COMPLEX Rx Instructions: 250 mg orally orally EVERY FRIDAY, FRIDAY, FRIDAY, FRIDAY; orally EVERY FRIDAY, FRIDAY, FRIDAY, FRIDAY levetiracetam 500 mg tablet 500 mg PO QHS losartan 25 mg tablet 25 mg PO DAILY acetaminophen 325 mg Tablet 650 mg PO Q6H PRN PRN (Reason: Pain 1-10 Or Fever>100.7) Qty: 0 0RF amiodarone 200 mg Tablet 200 mg PO DAILY Qty: 0 0RF clopidogrel 75 mg Tablet 75 mg PO DAILY Qty: 0 0RF carvedilol 3.125 mg Tablet 3.125 mg PO BIDCM Qty: 0 0RF isosorbide dinitrate 20 mg Tablet 20 mg PO BID Qty: 0 0RF cholecalciferol (vitamin D3) 125 mcg (5,000 unit) Capsule 125 mcg PO DAILY Qty: 0 0RF cinacalcet 30 mg Tablet 30 mg PO DAILYCM Qty: 0 0RF calcium acetate(phosphat bind) 667 mg Capsule 1,334 mg PO TIDCM Qty: 0 0RF menthol-zinc oxide [Calmoseptine] 0.44-20.6 % Ointment 1 applic topical BID Qty: 0 0RF Protocol: *Topical Application Instructions APPLICATION INSTRUCTIONS: Apply to bilateral buttocks and coccyx sucralfate 1 gram Tablet 1 g PO 1HR_ACHS Qty: 0 0RF midodrine 5 mg Tablet 10 mg PO TIDCM Qty: 0 0RF pantoprazole 40 mg Tablet,Delayed Release (Dr/Ec) 40 mg PO BID Qty: 0 0RF ondansetron 4 mg Tablet,Disintegrating 4 mg PO Q8H PRN PRN (Reason: nausea and vomiting) Qty: 0 0RF sevelamer carbonate 800 mg Tablet 800 mg PO TIDCM Qty: 0 0RF cefdinir 300 mg capsule 300 mg PO DAILY Qty: 1 0RF Rx Instructions: For 7 days beginning 08/12/2024, then discontinue metronidazole 500 mg tablet 500 mg PO TID Qty: 21 0RF Rx Instructions: 1 3 times a day beginning 08/12/2024, complete 7 days of treatment then discontinue aspirin 81 mg tablet,delayed release (DR/EC) See Rx Instructions .ROUTE .COMPLEX Qty: 90 3RF Dose Instruction: TAKE 1 TABLET BY MOUTH DAILY Rx Instructions: TAKE 1 TABLET BY MOUTH DAILY ferrous sulfate [FeroSul] 325 mg (65 mg iron) tablet 325 mg PO DAILY Qty: 90 1RF atorvastatin 80 mg tablet 80 mg PO QHS Qty: 30 1RF Primary Care Provider: Leigha Longoria Referrals: Leigha Longoria MD [Primary Care Provider] - Print Language: Mohawk Disposition Disposition: Acute Care Hospital Discharge Location: [facility]
[2024-08-25] MEDS: Naloxone 2 MG/2 ML Syringe IV (14:35)
[2024-08-25 15:00] LABS: Absolute Lymphocyte Count 1.34 X10^3/uL (0.83-4.51); Absolute Neutrophil Count 9.1 X10^3/uL (2.0-7.7); Basophil# 0.04 X10^3/uL; Basophil% 0.3 % (0-1); Eosinophil# 0.01 X10^3/uL; Eosinophils% 0.1 % (0-5); Hematocrit 27.8 % (37-47); Lymphocyte # 1.34 X10^3/ul (0.83-4.51); Lymphocyte % 11.6 % (19-41); Mean Corp Hgb Conc 32.4 g/dL (32-36); Mean Corpuscular Hgb 32.4 pg (27.0-32.0); Mean Platelet Vol. 9.8 fl (6.2-12.0); Monocyte# 0.92 X10^3/uL; Neutrophil # 9.12 X10^3/uL (2.7-7.7); Platelet Count 248 K/mm3 (150-450); RBC Distribution Width SD 58.7 fl (35.1-43.9); Red Blood Count 2.78 M/mm3 (4.2-5.4); White Blood Count 11.5 K/mm3 (4.4-11.0)
[2024-08-25] MEDS: LORazepam 2 MG/ML Syringe 1 MG IV (15:00)
--- NOTE | 2024-08-25 15:22 | RAD_ITS ---
STUDY: X-RAY CHEST REASON FOR EXAM: Female, 69 years old. ams TECHNIQUE: Single AP portable view of the chest. COMPARISON: Comparison is made with prior study dated August 10, 2024. FINDINGS: A right-sided double catheter is seen at the junction of superior vena cava and right atrium. Surgical clips are seen in the left axilla. Progressive left pleural effusion with left pulmonary infiltrate. There is no demonstrated pleural abnormality. Normal size heart. Normal mediastinum and gaye. Normal visualized pulmonary arteries. There is atherosclerotic calcification of the aortic arch with tortuosity. There are diffuse degenerative changes of the visualized thoracic spine. Dextroscoliosis. There is degenerative osteoarthritis of the bilateral shoulders. There is no demonstrated abnormality of the visualized soft tissue structures of the upper abdomen. RAD/Chest 1 View (Portable) IMPRESSION: Progressive pleural-parenchymal changes in the left hemithorax with shift of the heart and mediastinal structures towards the left side. Electronically Signed: Tacho Russell MD at 15:47 EST ,
[2024-08-25 15:27] LABS: AST(SGOT) 88 U/L (15-37); Alanine Aminotransfer ALT/SGPT 51 U/L (13-56); Albumin, Serum 2.1 g/dL (3.2-5.0); Alkaline Phosphatase 79 U/L (45-117); Anion Gap 13 (5-15); BUN 15 mg/dL (7-18); BUN/Creat Ratio 3.8 RATIO (10-20); Bilirubin, Direct 0.33 mg/dL (0.00-0.30); Calcium,Total 8.9 mg/dL (8.5-10.1); Chloride 94 mmol/L (98-107); Creatinine, Serum 3.97 mg/dL (0.55-1.02); EST Glomerular Filtration Rate 12 mL/min (>60); Est Glom Filt Rate - Afr Amer 15 mL/min (>60); Estimated Creatinine Clearance 11.92 ml/min; Globulin 5.7 g/dL (2.2-4.2); Glucose 107 mg/dL (74-106); Lipase 27 U/L (13-75); Potassium 3.6 mmol/L (3.5-5.1); Protein, Total 7.8 g/dL (6.4-8.2); Sodium Level 138 mmol/L (136-145); Troponin-I HS 1896 pg/mL (3.0-54.0)
[2024-08-25 15:36] LABS: International Normalized Ratio 1.2
[2024-08-25 15:37] LABS: Partial Thromboplast Time 31.5 Seconds (24.1-36.2)
[2024-08-25] MEDS: Etomidate 20 MG/10 ML Vial IV (15:43)
[2024-08-25] MEDS: Succinylcholine Chloride 200 MG/10 ML Vial 66 MG IV (15:43)
[2024-08-25] MEDS: levETIRAcetam IV 1,000 MG/100 ML BAG 400 MG IV (15:51)
--- NOTE | 2024-08-25 15:55 | RAD_ITS ---
STUDY: X-RAY CHEST REASON FOR EXAM: Female, 69 years old. tube placement TECHNIQUE: AP portable COMPARISON: August 25 3:23 PM FINDINGS: Focal infiltrate is noted in the left upper lobe There is no demonstrated pleural abnormality. Surgical clips are noted projecting over the left upper lobe Heart appears prominent. Normal mediastinum and gaye. Normal visualized pulmonary arteries. Tortuous calcified aortic arch and descending thoracic aorta. Central venous catheter noted on the right with tip in distal superior vena cava Normal visualized thoracic spine. Normal visualized ribs, clavicles, and shoulders. Nasogastric tube is been inserted with tip in the proximal to mid gastric fundus There is no demonstrated abnormality of the visualized soft tissue structures of the upper abdomen. RAD/Chest 1 View (Portable) IMPRESSION: Left upper lobe infiltrate NG tube placement with tip in the proximal to mid gastric fundus Electronically Signed: Jefferson Warner MD at 16:30 EST ,
[2024-08-25] MEDS: Propofol 10MG/Ml 1,000 MG/100 ML Bottle 3.9 MG CONT INF (16:03)
[2024-08-25 16:12] LABS: CPK Total, Creatine Kinase 826 U/L (26-192); Triglycerides 121 mg/dL
[2024-08-25] MEDS: levETIRAcetam IV 2,000 MG in 0.9% Normal Saline (250mL Bag) 230 ML 1000 MG IV (16:49)
--- NOTE | 2024-08-25 18:06 | ED.RN ---
THIS RN SPOKE WITH [facility] RN ABOUT PATIENT STATUS. RN NOTIFIED THAT PATIENT WOULD BE TRANSFERRED TO [facility] MA[facility] FOR FURTHER EEG STUDIES
[2024-08-25 19:05] LABS: Reflex Lactate? Y
[2024-08-25] MEDS: levoFLOXacin IV 500 MG/100 ML BAG 100 MG IV (20:04)
[2024-08-25 20:54] LABS: Lactic Acid 2.6 mmol/L (0.4-1.9)
--- NOTE | 2024-08-25 21:50 | ED.RN ---
notified [facility] [place] [facility] and dx.
[2024-08-25 22:00] LABS: Bedside Glucose 90 mg/dL (74-106)
[2024-08-26 06:13] LABS: Allen Test Positive; Base Excess 10 mmol/L (-2 to +2); Bicarbonate 33.8 mmol/L (22-26); Blood Gas Specimen Type ART; Mode Not entered; O2 Delivery Device Cannula; PO2 114 mmHG (75-100); SITE R Radial; SO2 99 % (95-99); Total Carbon Dioxide 35 mmol/L; pCO2 48.7 mmHg (35-45); pH 7.45 (7.35-7.45)
== END 2024-08-25 21:53 | disposition short-term general hospital (02) ==
PROVIDERS: Emergency Provider Emergency Medicine; PCP Internal Medicine; Visit Provider Emergency Medicine
DX: G40.901 Epilepsy, unspecified, not intractable, with status epilepticus (principal); I13.2 Hypertensive heart and chronic kidney disease with heart failure and with stage 5 chronic kidney disease, or end stage renal disease; N18.6 End stage renal disease; I50.32 Chronic diastolic (congestive) heart failure; I21.4 Non-ST elevation (NSTEMI) myocardial infarction; E11.22 Type 2 diabetes mellitus with diabetic chronic kidney disease; I25.10 Atherosclerotic heart disease of native coronary artery without angina pectoris; I25.2 Old myocardial infarction; Z99.3 Dependence on wheelchair; Z87.891 Personal history of nicotine dependence; Z86.73 Personal history of transient ischemic attack (TIA), and cerebral infarction without residual deficits; Z99.2 Dependence on renal dialysis
CPT/HCPCS: G0463; 31500; 31720; 36600; 51702; 70450; 71045; 80048; 80076; 82140; 82550; 82803; 82962; 83605; 83690; 84478; 84484; 85025; 85610; 85730; 87040; 93005; 94002; 96365; 96366; 96367; 96375; 96376; 99252; 99285; A4216; J0330